=== PATIENT | female | born 1960 | race Caucasian/White ===

== ENCOUNTER → 2020-03-29 09:53 | Outpatient (CLI) | payer OTHER, SELFPAY ==
--- NOTE | ~2020-03-29 | DEXA_ITS ---
Bone Density Report Name: Annette Santiago Age: 59 Sex: Female Ethnicity: White Date of : 1960 Indication: osteopenia; height loss; postmenopausal Referring Provider: Rohan Rothman Study: Bone densitometry was performed. Exam Date: March 29, 2020 Accession number: [id number] Bone Density: Region BMD T-score Z-score Classification AP Spine (L1, L2) 0.859 -1.1 0.2 Osteopenia Femoral Neck (Left) 0.571 -2.5 -1.2 Osteoporosis Total Hip (Left) 0.692 -2.1 -1.1 Osteopenia Femoral Neck (Right) 0.667 -1.6 -0.4 Osteopenia Total Hip (Right) 0.708 -1.9 -1.0 Osteopenia Total Hip Mean 0.700 -2.0 -1.1 Osteopenia World Health Organization criteria for BMD impression classify patients as: Normal (T-score at or above -1.0), Osteopenia (T-score between -1.0 and -2.5), or Osteoporosis (T-score at or below -2.5). 10-year Fracture Risk: FRAX not reported because: Some T-score for Spine Total or Hip Total or Femoral Neck at or below -2.5 Previous Exams: Region Exam Age BMD T-score BMD Change BMD Change Date g/cm2 vs Baseline vs Previous AP Spine(L1, L2) 03/29/2020 59 0.859 -1.1 0.044* 0.044* 01/08/2017 56 0.815 -1.5 Total Hip(Left) 03/29/2020 59 0.692 -2.1 0.034* 0.034* 01/08/2017 56 0.658 -2.3 Total Hip(Right) 03/29/2020 59 0.708 -1.9 -0.010 -0.010 01/08/2017 56 0.717 -1.8 *Denotes significance at 95% confidence level, LSC for AP Spine = 0.022 g/cm2, LSC for Total Hip = 0.027 g/cm2 Clinical Information Provided by Patient: Has used the following medications: HRT (i.e. estrogen/hormone therapy), Vitamin D, Calcium Patient maximum height was 68 Menopause Age: 48 No regular weight bearing exercise Does not regularly consume dairy products Onset of menses at age 13 Number of children 2 Impression: The patient has osteoporosis, based on the Left Femoral Neck T-score. No significant bone loss was observed. Discussion: INCREASED RISK OF FRACTURE. BONE DENSITY IS UNDESIRABLY LOW AT ONE OR MORE SKELETAL SITES, CONSISTENT WITH POSTMENOPAUSAL OSTEOPOROSIS. This patient's lowest T-score meets the World Health Organization's (WHO) criteria for osteoporosis at one or more sites (T-score -2.5 or below). In untreated patients, the risk of osteoporotic fracture increases approximately two-fold for each 1.0 SD decrease in T-score. Low bone density is not the only risk factor for fracture; also consider fa
== END ==
PROVIDERS: PCP Family Medicine; Visit Provider Family Medicine
DX: Z78.0 Asymptomatic menopausal state (principal); M85.88 Other specified disorders of bone density and structure, other site; M81.0 Age-related osteoporosis without current pathological fracture; M85.852 Other specified disorders of bone density and structure, left thigh; M85.851 Other specified disorders of bone density and structure, right thigh
CPT/HCPCS: 77080

== ENCOUNTER 2020-04-23 00:17 | Outpatient (CLI) | payer OTHER, SELFPAY ==
[2020-04-23 18:02] LABS: SARS-CoV-2 RNA PCR Negative
== END 2020-04-23 00:18 | disposition home or self-care (01) ==
LOC: ANHCOVIDDT 00:17
PROVIDERS: PCP Family Medicine; Visit Provider Internal Medicine Gastroenterology
DX: Z01.812 Encounter for preprocedural laboratory examination (principal); Z20.828 Contact with and (suspected) exposure to other viral communicable diseases
CPT/HCPCS: 87635; C9803; U0003

== ENCOUNTER 2020-04-26 01:23 | Day surgery (SDC) | payer OTHER, SELFPAY ==
[2020-04-19 15:18] VITALS: BMI 22.8
[2020-04-26 07:04] VITALS: BP 126/90; PULSE 95; RESP 16; TEMP 36.6; O2SAT 98; BMI 23.0
--- NOTE | 2020-04-26 07:07 | PM.HPGS ---
History of Present Illness History of Present Illness Consent: Risks, benefits, and alternatives have been discussed and questions answered. Patient agrees to proceed with procedure. Chief complaint: Neoplasm Screening Narrative: Annette Santiago is a 59 year old W female referred for her 1st screening colonoscopy. Patient asymptomatic. Paternal grandmother colon cancer in her 60s. [facility] Past Medical History Medical History Fibromyalgia Scoliosis Surgical History Surgical History History of laparoscopy endometriosis Social History Social History Smoking packs per day: 1 Smoking cigarettes per day: 20.0 Years smoked: 4 Smoking pack-years: 4.00 Smoking status: Former smoker Tobacco type: cigarettes Second hand tobacco smoke exposure: No Smoking end date: 07/30/82 Alcohol intake: never Substance use: former Substance use type: marijuana Other substance usage details: DURING COLLEGE YRS Living arrangements: with family Gender identity (if verbalized by the patient): Female Spiritual care concerns: No Meds Home Medications and Allergies Home Medications Medication Instructions Recorded Confirmed Type Excedrin Migraine 2 tab-cap PO DAILY 06/28/19 04/26/20 History aripiprazole [Abilify] 4 mg PO DAILY 06/28/19 04/26/20 History hydrocodone-acetaminophen 1 tablet PO Q8H PRN 06/28/19 04/19/20 History duloxetine 30 mg capsule,delayed 90 mg PO DAILY #270 cap 09/02/19 04/26/20 Rx release estradiol-norethindrone acet 1 1 tablet PO DAILY #84 tablet 02/02/20 04/26/20 Rx mg-0.5 mg tablet clobetasol 0.05 % topical cream 1 applic TOPICAL BID #30 gm 02/17/20 04/26/20 Rx montelukast 10 mg tablet 10 mg PO HS #90 tablet 02/24/20 04/26/20 Rx cetirizine 10 mg tablet 10 mg PO DAILY 03/15/20 04/26/20 History alendronate 70 mg tablet 70 mg PO WEEKLY #12 tablet 04/02/20 04/26/20 Rx Tumeric/Cucermin 3 cap PO DAILY 04/19/20 04/26/20 History acetaminophen [Tylenol 8 Hour] 1,300 mg PO HS 04/19/20 04/26/20 History alpha lipoic acid 550 mg PO DAILY 04/19/20 04/26/20 History ascorbic acid (vitamin C) [Vitamin 1 g PO DAILY 04/19/20 04/26/20 History C] baclofen 20 mg PO BID 04/19/20 04/26/20 History calcium carbonate-vitamin D3 2 cap PO DAILY 04/19/20 04/26/20 History [Calcium 600 with Vitamin D3] magnesium citrate 2 cap PO BID 04/19/20 04/19/20 History methocarbamol 1,000 mg PO QID 04/19/20 04/26/20 History zolpidem 10 mg PO HS 04/19/20 04/26/20 History Allergies Allergy/AdvReac Type Severity Reaction Status Date / Time Sulfa (Sulfonamide Allergy Intermediate Unknown Verified 04/26/20 06:59 Antibiotics) DECONGESTANT Allergy Intermediate BLADDER Uncoded 04/26/20 06:59 SPSAMS Exam Const: Orientation/consciousness: patient oriented x3 Resp: Auscultation: clear to auscultation bilaterally Cardio: Rate: regular rate Rhythm: regular rhythm Heart sounds: no murmurs GI: GI Palp: Yes Soft to palpation, No Tenderness to palpation present (GI), Yes No hepatosplenomegaly present and No Palpable mass present Auscultation: normal bowel sounds Neuro: General: patient oriented x3 and no focal motor deficits Extrem: General: no pedal edema Assessment and Plan Additional Plan Screening colonoscopy
[2020-04-26] MEDS: LACTATED RINGERS 1,000 ML 150 ML IV CONT (07:17)
--- NOTE | 2020-04-26 07:20 | WPDANESEPPF ---
Anes - Initial Pre Proc Eval Procedure: Operation Date: 04/26/20 08:00 Proposed Procedures p Screening Colonoscopy - Sha Couch MD Date/Time: 04/26/20 07:20 Surgeon: Sha Couch MD Pre Op Diagnosis: Neoplasm Screening Patient Data Age: 59 Gender: F Height: 5 ft 8 in Weight: 68.7 kg Last Vital Signs Temp 36.6 C 04/26/20 07:04 Pulse 95 04/26/20 07:04 Resp 16 04/26/20 07:04 BP 126/90 04/26/20 07:04 Pulse Ox 98 04/26/20 07:04 Allergies Allergy/AdvReac Type Severity Reaction Status Date / Time Sulfa (Sulfonamide Allergy Intermediate Unknown Verified 04/26/20 06:59 Antibiotics) DECONGESTANT Allergy Intermediate BLADDER Uncoded 04/26/20 06:59 SPSAMS Home Medications Medication Instructions Recorded Confirmed Type Excedrin Migraine 2 tab-cap PO DAILY 06/28/19 04/26/20 History aripiprazole [Abilify] 4 mg PO DAILY 06/28/19 04/26/20 History hydrocodone-acetaminophen 1 tablet PO Q8H PRN 06/28/19 04/19/20 History duloxetine 30 mg capsule,delayed 90 mg PO DAILY #270 cap 09/02/19 04/26/20 Rx release estradiol-norethindrone acet 1 1 tablet PO DAILY #84 tablet 02/02/20 04/26/20 Rx mg-0.5 mg tablet clobetasol 0.05 % topical cream 1 applic TOPICAL BID #30 gm 02/17/20 04/26/20 Rx montelukast 10 mg tablet 10 mg PO HS #90 tablet 02/24/20 04/26/20 Rx cetirizine 10 mg tablet 10 mg PO DAILY 03/15/20 04/26/20 History alendronate 70 mg tablet 70 mg PO WEEKLY #12 tablet 04/02/20 04/26/20 Rx Tumeric/Cucermin 3 cap PO DAILY 04/19/20 04/26/20 History acetaminophen [Tylenol 8 Hour] 1,300 mg PO HS 04/19/20 04/26/20 History alpha lipoic acid 550 mg PO DAILY 04/19/20 04/26/20 History ascorbic acid (vitamin C) [Vitamin 1 g PO DAILY 04/19/20 04/26/20 History C] baclofen 20 mg PO BID 04/19/20 04/26/20 History calcium carbonate-vitamin D3 2 cap PO DAILY 04/19/20 04/26/20 History [Calcium 600 with Vitamin D3] magnesium citrate 2 cap PO BID 04/19/20 04/19/20 History methocarbamol 1,000 mg PO QID 04/19/20 04/26/20 History zolpidem 10 mg PO HS 04/19/20 04/26/20 History Patient hx anesthesia problems: none Family hx anesthesia problems: none PMFSH Past Medical History Medical History Fibromyalgia Scoliosis Surgical History Surgical History History of laparoscopy endometriosis Family History Family History Father Cerebrovascular accident Mother Family history of chronic obstructive pulmonary disease Father Family history of blood dyscrasia Mother Hypertension Family history of chronic obstructive pulmonary disease Grandparent Family history of cardiovascular disease Acute myocardial infarction Carcinoma of colon Family history of malignant neoplasm of breast in first degree relative Social History Social History Smoking packs per day: 1 Smoking cigarettes per day: 20.0 Years smoked: 4 Smoking pack-years: 4.00 Smoking status: Former smoker Tobacco type: cigarettes Second hand tobacco smoke exposure: No Smoking end date: 07/30/82 Alcohol intake: never Substance use: former Substance use type: marijuana Other substance usage details: DURING COLLEGE YRS Living arrangements: with family Gender identity (if verbalized by the patient): Female Spiritual care concerns: No Anes - Eval Final PreProcedure Day of Procedure 04/26/20 07:20 Patient weight: normal Heart: regular rate and rhythm Lungs: clear to auscultation Airway: Mallampati scale class II Neurological: alert and oriented Last oral intake: >/= 8 hours ASA classification: II Emergent: no Anesthetic plan: proceed Anesthesia type and monitoring: general GIVS and standard monitoring Informed Consent: The patient's anesthetic plan
[2020-04-26 08:36] VITALS: BP 145/73; PULSE 87; RESP 17; O2SAT 100
[2020-04-26 08:46] VITALS: BP 136/88; PULSE 85; RESP 17; O2SAT 100
[2020-04-26 08:56] VITALS: BP 122/70; PULSE 79; RESP 17; O2SAT 100
== END 2020-04-26 09:12 | disposition home or self-care (01) ==
PROVIDERS: PCP Family Medicine; Visit Provider Internal Medicine Gastroenterology
PROC: 0DJD8ZZ Inspection of Lower Intestinal Tract, Via Natural or Artificial Opening Endoscopic (ICD-10-PCS; CPT 45378; principal; 2020-04-26 08:00)
DX: Z12.11 Encounter for screening for malignant neoplasm of colon (principal); K64.8 Other hemorrhoids; Z80.0 Family history of malignant neoplasm of digestive organs; Z87.891 Personal history of nicotine dependence
CPT/HCPCS: 45378; J2704; J7120

== ENCOUNTER 2020-10-01 15:15 | Outpatient (CLI) | payer OTHER, SELFPAY | END 2020-10-01 15:16 | disposition home or self-care (01) | LOC: ANHCOVIDVC 15:15 | PROVIDERS: PCP Family Medicine | DX: Z23 Encounter for immunization (principal) | CPT/HCPCS: 0001A; 91300 ==

== ENCOUNTER 2020-10-22 15:15 | Outpatient (CLI) | payer OTHER, SELFPAY | END 2020-10-22 15:16 | disposition home or self-care (01) | LOC: ANHCOVIDVC 15:15 | PROVIDERS: PCP Family Medicine | DX: Z23 Encounter for immunization (principal) | CPT/HCPCS: 0002A; 91300 ==

== ENCOUNTER → 2021-05-09 14:37 | Outpatient (CLI) | payer OTHER, SELFPAY ==
--- NOTE | ~2021-05-09 | CT_ITS ---
EXAMINATION: CT brain wo con DATE: 05/09/2021 14:58 INDICATION: Visual disturbance TECHNIQUE: Computed tomography (CT) of the head was performed without intravenous contrast. The mA wa s adjusted according to patient size. Iterative reconstruction technique was employed. Exam dose: 59 9.57 mGy-cm total exam DLP. COMPARISON: None FINDINGS: Bilateral vertebral artery, basilar artery and carotid siphon internal carotid artery calci fications. No intracranial mass lesion or hemorrhage or cerebrovascular accident is detected. There is nonspecif ic diminished attenuation of the cerebral white matter, likely due to chronic small vessel ischemic c hanges. Normal ventricular size. No subdural or epidural hematoma. No fracture or bone destruction of the cranial vault. Minimal posterior lateral right ethmoid air cell soft tissue density. The included paranasal sinuses and the mastoid air cells are otherwise normally developed and aerated. IMPRESSION: Cerebral atherosclerosis and chronic small vessel ischemic changes of the cerebral white matter Reviewed, dictated and finalized at [facility]. Reviewed, dictated and finalized at location [facility].
--- NOTE | ~2021-05-09 | US_ITS ---
EXAMINATION: US carotid duplex BI DATE: 05/09/2021 16:03 INDICATION: Unspecified visual loss. TECHNIQUE: Grayscale, color Doppler, and pulsed Doppler images of the cervical carotid arteries were obtained. The degree of vessel stenosis is placed in one of the following categories: normal, <50%, 5 0-69%, >=70% but less than near-occlusion, near-occlusion, or total occlusion. Note that percent sten osis relative to normal distal artery lumen diameter is indirectly measured from velocity measurement s as described by Salbador, et al. Radiology 2003; 229:340-346. COMPARISON: None. FINDINGS: RIGHT: The right common carotid artery (CCA) peak systolic velocity (PSV) is 90 cm/s. The right internal car otid artery (ICA) PSV is 63 cm/s. The right ICA end-diastolic velocity (EDV) is 17 cm/s. The right IC A/CCA PSV ratio is 0.7. Grayscale and color Doppler images yield an estimate of 0% diameter reduction from plaque in the ICA. There is antegrade flow in the right vertebral artery. LEFT: The left CCA PSV is 64 cm/s. The left ICA PSV is 73 cm/s. The left ICA EDV is 26 cm/s. The left ICA/C CA PSV ratio is 1.1. Grayscale and color Doppler images yield an estimate of 0% diameter reduction fr om plaque in the ICA. There is antegrade flow in the left vertebral artery. IMPRESSION: 1. Normal internal carotid arteries. Reviewed, dictated and finalized at location [facility].
== END ==
PROVIDERS: PCP Family Medicine; Visit Provider Nurse Practitioner Family
DX: R42 Dizziness and giddiness (principal); H53.9 Unspecified visual disturbance; R00.2 Palpitations; I67.2 Cerebral atherosclerosis
CPT/HCPCS: 70450; 93880

== ENCOUNTER → 2021-10-03 13:33 | Outpatient (CLI) | payer OTHER, SELFPAY ==
--- NOTE | ~2021-10-03 | XR_ITS ---
EXAMINATION: XR scoliosis survey DATE: 10/03/2021 14:22 INDICATION: Secondary scoliosis of the lumbar region. TECHNIQUE: Scoliosis survey was obtained with standing AP and lateral views of the cervical, thoracic and lumbar spine were obtained. COMPARISON: None. FINDINGS: Cervical spine: 14 degrees cervical dextroscoliosis measured between C2 and C6. There is reversal of the normal cervi jose alberto lordosis centered at C3-C4 where there is 5 mm anterolisthesis of C3 on C4. Vertebral body height s are normal. Severe cervical spondylosis with severe disc height loss and severe uncovertebral osteo arthritis from C3-C4 through C5-C6. Prevertebral soft tissues are unremarkable. Thoracic spine: 31 degree thoracic dextroscoliosis measured between T5 and T12. 22 degree levoscoliosis between T7 an d T5. Vertebral body heights are normal. Mild thoracic spondylosis with multilevel mild disc height l oss throughout the thoracic spine. Visualized portion of the lungs are clear. Heart size is normal. P ortions of the lungs are obscured by bilateral lead breast shielding. Lumbar spine: 25 degrees lumbar levoscoliosis with moderate rotational component measured between T12 and 4. There is a 1 cm left lateral listhesis of L3 on L4. Straightening of the lumbar lordosis on the sagittal im ages. Vertebral body heights are normal. Severe disc height loss at L3-L4 and L4-L5. Mild disc height loss at the more cephalad lumbar levels. Severe facet osteoarthritis in the mid to lower lumbar spin e at the right side of the upper lumbar spine. IMPRESSION: 1. Multicomponent scoliosis of the cervical, thoracic and lumbar spine as detailed above. 2. Severe cervical and lumbar spondylosis. Reviewed, dictated and finalized at location [facility]. HEALTH RN IMPRESSION: 1. Multicomponent scoliosis of the cervical, thoracic and lumbar spine as detai led above. 2. Severe cervical and lumbar spondylosis.
== END ==
PROVIDERS: PCP Family Medicine
DX: M41.82 Other forms of scoliosis, cervical region (principal); M41.84 Other forms of scoliosis, thoracic region; M41.86 Other forms of scoliosis, lumbar region; M47.812 Spondylosis without myelopathy or radiculopathy, cervical region; M47.816 Spondylosis without myelopathy or radiculopathy, lumbar region
CPT/HCPCS: 72082

== ENCOUNTER → 2022-05-16 14:14 | Outpatient (CLI) | payer OTHER, SELFPAY ==
--- NOTE | ~2022-05-16 | DEXA_ITS ---
Bone Density Report Name: KATRINA CAMARENA Age: 61 Sex: Female Ethnicity: White Date of : 1960 Indication: osteopenia; monitoring treatment; height loss; postmenopausal Referring Provider: Rohan Rothman Study: Bone densitometry was performed. Exam Date: May 16, 2022 Accession number: [id number] Bone Density: Region BMD T-score Z-score Classification AP Spine (L1, L2) 0.781 -1.8 -0.3 Osteopenia Femoral Neck (Left) 0.620 -2.1 -0.7 Osteopenia Total Hip (Left) 0.689 -2.1 -1.0 Osteopenia Femoral Neck (Right) 0.698 -1.4 0.0 Osteopenia Total Hip (Right) 0.752 -1.6 -0.5 Osteopenia Total Hip Mean 0.721 -1.9 -0.8 Osteopenia World Health Organization criteria for BMD impression classify patients as: Normal (T-score at or above -1.0), Osteopenia (T-score between -1.0 and -2.5), or Osteoporosis (T-score at or below -2.5). 10-year Fracture Risk: FRAX not reported because: Treated for osteoporosis Previous Exams: Region Exam Age BMD T-score BMD Change BMD Change Date g/cm2 vs Baseline vs Previous AP Spine(L1, L2) 05/16/2022 61 0.781 -1.8 -0.034* -0.078* 03/29/2020 59 0.859 -1.1 0.044* 0.044* 01/08/2017 56 0.815 -1.5 Total Hip(Left) 05/16/2022 61 0.689 -2.1 0.031* -0.003 03/29/2020 59 0.692 -2.1 0.034* 0.034* 01/08/2017 56 0.658 -2.3 Total Hip(Right) 05/16/2022 61 0.752 -1.6 0.035* 0.044* 03/29/2020 59 0.708 -1.9 -0.010 -0.010 01/08/2017 56 0.717 -1.8 *Denotes significance at 95% confidence level, LSC for AP Spine = 0.022 g/cm2, LSC for Total Hip = 0.027 g/cm2 Clinical Information Provided by Patient: Is being treated for osteoporosis Has used the following medications: Fosamax (i.e. alendronate), HRT (i.e. estrogen/hormone therapy), Vitamin D, Calcium Patient maximum height was 69.75 Menopause Age: 48 Onset of menses at age 13 Number of children 2 Missed period for more than 6 months in a row Impression: The patient has low bone mass, based on the Left Total Hip T-score. The BMD for the AP Spine(L1, L2) decreased, changing by -0.078 since the last DXA exam. Discussion: SIGNIFICANT BONE LOSS OBSERVED. Adherence to therapy (including calcium and vitamin D intake) should be assessed. If compliance is not a factor, review management and exclusion of secondary causes of bone loss. It is important to ask patients whether
== END ==
PROVIDERS: PCP Family Medicine; Visit Provider Family Medicine
DX: Z78.0 Asymptomatic menopausal state (principal); M85.89 Other specified disorders of bone density and structure, multiple sites
CPT/HCPCS: 77080

== ENCOUNTER 2024-06-24 09:42 | Outpatient (CLI) | payer OTHER, SELFPAY ==
[2024-06-24 12:06] LABS: Basophils Absolute Auto 0.1 K/mm3 (0.0-0.1); Basophils Percent Auto 1.2 % (0.2-1.2); Eosinophils Absolute Auto 0.1 K/mm3 (0-0.3); Eosinophils Percent Auto 2.8 % (0-4.4); Hemoglobin 13.5 g/dL (12.0-15.0); Lymphocytes Absolute Auto 1.48 K/mm3 (0.9-3.2); Lymphocytes Percent Auto 34.7 % (18.3-44.2); Mean Corpuscular HGB Conc 32.1 g/dl (32-36); Mean Corpuscular Hemoglobin 31.8 pg (26-34); Mean Corpuscular Volume 98.8 fl (80-100); Mean Platelet Volume 11.4 fl (7.4-10.4); Monocytes Absolute Auto 0.4 K/mm3 (0.1-0.6); Monocytes Percent Auto 8.9 % (2.6-8.5); Neutrophils Absolute Auto 2.2 K/mm3 (1.3-6.7); Neutrophils Percent Auto 52.4 % (45.5-73.1); Platelet Count Result 246 k/mm3 (150-375); Red Blood Count 4.25 M/mm3 (4.2-5.4); Red Cell Distribution Width 12.6 % (11.5-14.5); White Blood Count 4.3 K/mm3 (4.5-10.0)
[2024-06-24 12:22] LABS: Alanine Aminotransferase 20 U/L (6-35); Albumin Level 4.4 g/dL (3.5-5.1); Alkaline Phosphatase 57 U/L (38-126); Anion Gap 5 mmol/L (4-12); Aspartate Amino Transferase 39 U/L (14-36); Bilirubin,Total 0.9 mg/dL (0.2-1.3); Blood Urea Nitrogen 18 mg/dL (7-17); Calcium 9.3 mg/dL (8.4-10.2); Carbon Dioxide 32 mmol/L (22-30); Chloride 101 mmol/L (98-107); Cholesterol 165 mg/dL (0-200); Estimated Glomerular Filt Rate > 60; Glucose 90 mg/dL (65-110); HDL Direct 63 mg/dL; Potassium 4.2 mmol/L (3.4-5.0); Sodium 138 mmol/L (137-145); Triglycerides 103 mg/dL (<150)
[2024-06-24 12:26] LABS: Vitamin D 25 Hydroxy 48.7 ng/mL
[2024-06-24 12:34] LABS: LDL Cholesterol Direct 73 mg/dL
[2024-06-24 13:43] LABS: Hepatitis B Surface Anti Res Negative
[2024-06-25 07:18] LABS: Rubeola Measles IgG <13.50 AU/mL
== END 2024-06-24 09:43 | disposition home or self-care (01) ==
LOC: ANHGOSHLAB 09:46
PROVIDERS: PCP Family Medicine; Visit Provider Nurse Practitioner Family
DX: Z00.00 Encounter for general adult medical examination without abnormal findings (principal); Z79.899 Other long term (current) drug therapy; Z13.220 Encounter for screening for lipoid disorders; E55.9 Vitamin D deficiency, unspecified; Z78.9 Other specified health status
CPT/HCPCS: 36415; 80053; 80061; 82306; 84443; 85025; 86706; 86735; 86765

== ENCOUNTER 2024-07-21 00:17 | Day surgery (SDC) | payer OTHER, SELFPAY ==
--- NOTE | 2024-07-14 14:07 | PC.NURSE ---
Report to the Outpatient Waiting Room, entrance under the green pavilion located off [facility], at time _6:15 AM on date _07/21/24 . Planned Procedure Time: __8:15 AM .? Time changes happen often and if your time is changed the preop area will call you the afternoon before. - You and your visitor will be asked to self-screen and do not enter if you have any COVID symptoms. Please call surgeon if you need to reschedule. - A mask is optional within the hospital at this time. Patients may have clear liquids (water, carbonated beverages, clear teas, apple juice) until 3 hours prior to surgery( 5:15 AM) with a maximum of 20 ounces. - No food from midnight until time of surgery and no smoking. This includes no chewing gum, candy or mints. - Take only the following medications with a SIP of water on the morning of surgery: _DULOXETINE,,HYDROCODONE IF NEEDED FOR PAIN DO NOT STOP ANY OF YOUR OTHER PRESCRIPTION MEDICATIONS PRIOR TO SURGERY EXCEPT THE FOLLOWING Medications to discontinue per physician ____HOLD ALL VITAMINS OR SUPPLEMENTS 3 DAYS PRE OP Date to take last dose__07/17/24 Please no make-up, nail maltese, hairspray, perfume, deodorant, or body powder the day of surgery.? No jewelry (including any body piercings) or valuables the day of surgery, leave them at home.? Please take a shower or bath the night before, or the morning of, surgery with an antibacterial soap.? Wear comfortable, loose fitting clothing.? Children are encouraged to wear pajamas. - Jewelry must be removed prior to entering the operating room.? Rings and piercings that are not removed may be cut off. - The hospital will not accept responsibility for valuables.? - Please leave all valuables, including medications, at home the day of surgery. If you are going home after surgery, a licensed coal tram driver must drive you home.? - NO public transportation without another adult if you receive anesthesia. - We recommend that an adult stay with you for 24 hours following discharge. - We also recommend that you do not drive, make important decision, drink alcoholic beverages, or take any drugs that were not prescribed by your health care provider for at least 24 hours after your discharge time. For Pediatric surgeries, we recommend two adults accompany the child home. Follow any additional instructions given to you from your surgeon. Telephone instructions given to __PATIENT and asked if any additional questions and then verbalized understanding. Patient advised to call surgeon office or pre surgery nurse liaison [phone] if any additional questions.
[2024-07-14 14:39] VITALS: BMI 23.5
[2024-07-21 07:00] VITALS: BP 122/68; PULSE 76; RESP 16; TEMP 36.9; O2SAT 99
[2024-07-21] MEDS: ACETAMINOPHEN 500 MG TABLET 1000 MG PO (07:10)
--- NOTE | 2024-07-21 07:26 | P.HP_ITS ---
History of Present Illness History of Present Illness Consent: Risks, benefits, and alternatives have been discussed and questions answered. Patient agrees to proceed with procedure. Chief complaint: post menopausal bleeding Narrative: Annette Santiago is a 64 year old female with postmenopausal bleed. Options were reviewed and the patient elects to proceed with D&C hysteroscopy. Risks of infection, bleeding and perforation reviewed. Possible pathology was discussed. Patient voices understanding and agrees to proceed. Review of Systems Review of Systems: not repeated day of surgery; patient states no changes in status PMFSH Past Medical History Medical History (Updated 07/21/24 @ 07:28 by Sera Morley MD) 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 Vaginal delivery x2 Missed x1 Endometriosis Arthritis Anxiety Fibromyalgia Scoliosis Surgical History Surgical History S/P cervical spinal fusion (~08/09/22) C3-6 [place] teeth extracted 1982 History of endometrial ablation History of dilation and curettage 1988 History of laparoscopy early , endometriosis Family History Family History Father Cerebrovascular accident Depression Anxiety Family history of blood dyscrasia Mother Family history of chronic obstructive pulmonary disease Hypertension Anxiety Depression Thyroid disorder Grandparent Family history of cardiovascular disease Acute myocardial infarction Carcinoma of colon Family history of malignant neoplasm of breast in first degree relative Breast cancer Social History Social History Smoking packs per day: 1 Smoking cigarettes per day: 20.0 Years smoked: 4 Smoking pack-years: 4.00 Smoking status: Never smoker Tobacco type: cigarettes Second hand tobacco smoke exposure: No Smoking end date: 07/30/82 Alcohol intake: never Substance use: former Substance use type: marijuana Other substance usage details: DURING COLLEGE YRS Lack of Transportation: No Lack of Food: Never True Current Housing: I Have Housing Concerned About Future Housing: No Difficulty Paying Gas/Electric Bills: No Difficulty Paying for Meds: No Currently Unemployed: No Education: Bachelor's Degree Difficulty w/ Childcare or Family Care: No Living arrangements: with family Additional living arrangements comments: Occupation/Education: retired Gender identity (if verbalized by the patient): Female Sexual Orientation (if Verbalized by the Patient): Straight or Heterosexual Spiritual care concerns: No Meds Home Medications and Allergies Home Medications ?Medication ?Instructions ?Recorded ?Confirmed ?Type alpha lipoic acid 550 mg PO DAILY 04/19/20 07/21/24 History ascorbic acid (vitamin C) 1,000 mg 1 g PO DAILY 04/19/20 07/21/24 History tablet (Vitamin C) magnesium citrate 2 cap PO BID 04/19/20 07/21/24 History methocarbamol 500 mg tablet 1,000 mg PO QID 04/19/20 07/21/24 History calcium carbonate (Calcium 600) 600 mg PO BID 04/25/21 07/21/24 History zolpidem 10 mg tablet (Ambien) 10 mg PO QHS 04/25/21 07/14/24 History famotidine 10 mg tablet 10 mg PO DAILY 05/15/22 07/21/24 History duloxetine 60 mg capsule,delayed 60 mg PO BID 03/17/24 07/21/24 History release estradiol-norethindrone acet 1 1 tablet PO DAILY 03/17/24 07/21/24 History mg-0.5 mg tablet baclofen 10 mg tablet 20 mg PO QID 03/25/24 07/14/24 History acetaminophen 650 mg 650 mg PO Q12H PRN pain 05/15/24 07/21/24 History tablet,extended release (Tylenol 8 Hour) hydrocodone 7.5 mg-acetaminophen 1 tablet PO Q8H PRN Pain 05/15/24 07/21/24 History 325 mg tablet lurasidone 60 mg tablet 60 mg PO QPM 05/15/24 07/14/24 History meloxicam 15 mg tablet 15 mg PO DAILY 05/15/24 07/21/24 History metoprolol succinate 25 mg 25 mg PO QPM 05/15/24 07/21/24 History tablet,extended release 24 hr montelukast 10 mg tablet 10 mg PO DAILY #90 tabs 06/13/24 07/14/24 Rx (Singulair) vitamin B complex (Vitamins B 1 cap PO DAILY 07/14/24 07/21/24 History Complex capsule) Allergies Allergy/AdvReac Type Severity Reaction Status Date / Time Sulfa (Sulfonamide Allergy Intermediate Unknown Verified 07/14/24 14:13 Antibiotics) capsaicin AdvReac Severe burning Verified 07/14/24 14:13 sensation DECONGESTANT Allergy Intermediate BLADDER Uncoded 07/14/24 14:13 SPSAMS Vital Signs Vital Signs - 24 hr 07/21/24 07:00 Temperature 98.4 F Pulse Rate 76 Respiratory Rate 16 Blood Pressure 122/68 Pulse Oximetry 99 Oxygen Delivery Room Air Exam Const: General: healthy appearing and alert Orientation/consciousness: patient oriented x3 Resp: Effort & Inspection: normal respiratory effort : External Female Exam: normal external appearance Speculum Exam - Vagina: normal appearance of the vagina and normal vaginal discharge Speculum Exam - Cervix: normal appearance of the cervix Bimanual exam- vagina & uterus: uterine size normal and consistency normal Bimanual Exam- Adnexa, other: normal adnexae and No adnexal tenderness Neuro: General: patient oriented x3 Assessment and Plan Assessment and plan (1) Post-menopausal bleeding: Code(s): N95.0 - Postmenopausal bleeding Status: Acute Assessment and Plan: Plan to proceed with D&C hysteroscopy
--- NOTE | 2024-07-21 07:26 | WPDHPUPDATE1 ---
History and Physical Update Update Date/Time: 07/21/24 07:26 History and Physical has been reviewed, including an updated exam of the patient. There are NO changes in the patient's condition. Risks, benefits, and alternatives have been discussed and questions answered. Patient agrees to proceed with procedure.
[2024-07-21] MEDS: LACTATED RINGERS 1,000 ML 30 ML IV CONT (07:27)
--- NOTE | 2024-07-21 08:16 | WPDANESEPPF ---
Anes - Initial Pre Proc Eval Procedure: Operation Date: 07/21/24 08:15 Proposed Procedures p Hysteroscopy, Dilation and Curettage - Sera Morley MD Date/Time: 07/21/24 08:16 Surgeon: Sera Morley MD Pre Op Diagnosis: post menopausal bleeding Patient Data Age: 64 Gender: F Height: 1.7 m Weight: 65.9 kg Last Vital Signs Temp 36.9 C 07/21/24 07:00 Pulse 76 07/21/24 07:00 Resp 16 07/21/24 07:00 BP 122/68 07/21/24 07:00 Pulse Ox 99 07/21/24 07:00 O2 Del Method Room Air 07/21/24 07:00 Allergies Allergy/AdvReac Type Severity Reaction Status Date / Time Sulfa (Sulfonamide Allergy Intermediate Unknown Verified 07/14/24 14:13 Antibiotics) capsaicin AdvReac Severe burning Verified 07/14/24 14:13 sensation DECONGESTANT Allergy Intermediate BLADDER Uncoded 07/14/24 14:13 SPSAMS Home Medications ?Medication ?Instructions ?Recorded ?Confirmed ?Type alpha lipoic acid 550 mg PO DAILY 04/19/20 07/21/24 History ascorbic acid (vitamin C) 1,000 mg 1 g PO DAILY 04/19/20 07/21/24 History tablet (Vitamin C) magnesium citrate 2 cap PO BID 04/19/20 07/21/24 History methocarbamol 500 mg tablet 1,000 mg PO QID 04/19/20 07/21/24 History calcium carbonate (Calcium 600) 600 mg PO BID 04/25/21 07/21/24 History zolpidem 10 mg tablet (Ambien) 10 mg PO QHS 04/25/21 07/14/24 History famotidine 10 mg tablet 10 mg PO DAILY 05/15/22 07/21/24 History duloxetine 60 mg capsule,delayed 60 mg PO BID 03/17/24 07/21/24 History release estradiol-norethindrone acet 1 1 tablet PO DAILY 03/17/24 07/21/24 History mg-0.5 mg tablet baclofen 10 mg tablet 20 mg PO QID 03/25/24 07/14/24 History acetaminophen 650 mg 650 mg PO Q12H PRN pain 05/15/24 07/21/24 History tablet,extended release (Tylenol 8 Hour) hydrocodone 7.5 mg-acetaminophen 1 tablet PO Q8H PRN Pain 05/15/24 07/21/24 History 325 mg tablet lurasidone 60 mg tablet 60 mg PO QPM 05/15/24 07/14/24 History meloxicam 15 mg tablet 15 mg PO DAILY 05/15/24 07/21/24 History metoprolol succinate 25 mg 25 mg PO QPM 05/15/24 07/21/24 History tablet,extended release 24 hr montelukast 10 mg tablet 10 mg PO DAILY #90 tabs 06/13/24 07/14/24 Rx (Singulair) vitamin B complex (Vitamins B 1 cap PO DAILY 07/14/24 07/21/24 History Complex capsule) ECG: SR 79. Echo EF 73% Patient hx anesthesia problems: none Family hx anesthesia problems: none Results Review: All pre-operative results and documents have been reviewed as part of the pre-operative evaluation. REPLACED BY [facility] Past Medical History Medical History 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 Vaginal delivery x2 Missed x1 Endometriosis Arthritis Anxiety Fibromyalgia Scoliosis Surgical History Surgical History S/P cervical spinal fusion (~08/09/22) C3-6 Bronte teeth extracted 1982 History of endometrial ablation History of dilation and curettage 1988 History of laparoscopy early , endometriosis Family History Family History Father Cerebrovascular accident Depression Anxiety Family history of blood dyscrasia Mother Family history of chronic obstructive pulmonary disease Hypertension Anxiety Depression Thyroid disorder Grandparent Family history of cardiovascular disease Acute myocardial infarction Carcinoma of colon Family history of malignant neoplasm of breast in first degree relative Breast cancer Social History Social History Smoking packs per day: 1 Smoking cigarettes per day: 20.0 Years smoked: 4 Smoking pack-years: 4.00 Smoking status: Never smoker Tobacco type: cigarettes Second hand tobacco smoke exposure: No Smoking end date: 07/30/82 Alcohol intake: never Substance use: former Substance use type: marijuana Other substance usage details: DURING COLLEGE YRS Lack of Transportation: No Lack of Food: Never True Current Housing: I Have Housing Concerned About Future Housing: No Difficulty Paying Gas/Electric Bills: No Difficulty Paying for Meds: No Currently Unemployed: No Education: Bachelor's Degree Difficulty w/ Childcare or Family Care: No Living arrangements: with family Additional living arrangements comments: Occupation/Education: retired Gender identity (if verbalized by the patient): Female Sexual Orientation (if Verbalized by the Patient): Straight or Heterosexual Spiritual care concerns: No Anes - Eval Final PreProcedure Day of Procedure 07/21/24 08:16 Patient weight: normal Heart: regular rate and rhythm Lungs: clear to auscultation Airway: Mallampati scale class II Neurological: alert and oriented Last oral intake: >/= 8 hours ASA classification: III Emergent: no Anesthetic plan: proceed Anesthesia type and monitoring: general GIVS and standard monitoring Results Review: All pre-operative results and documents have been reviewed as part of the pre-operative evaluation. Informed Consent: The patient's anesthetic plan and its attendant risks and benefits were discussed with the patient/family/POA. Questions were solicited and answers provided to the satisfaction of the patient/family/POA.
[2024-07-21] MEDS: KETOROLAC 30 MG/ML VIAL (*BKC) IV PUSH (08:40)
--- NOTE | 2024-07-21 08:44 | P.OP_ITS ---
Procedure Note - Detailed Date of Procedure 07/21/24 Pre-op Diagnosis post menopausal bleeding Post-op Diagnosis Same Procedure Performed D&C hysteroscopy with resection of polyp Surgeon Sera Morley MD Anesthesia MAC Findings The uterus sounds to6.5cm. The endometrium was atrophic except for a large po lyp arising from the left sidewall. Description of Procedure The patient is taken to the operating placed under anesthesia in the dorsal lithotomy position. She was prepped and draped in the usual sterile fashion. Rosanky speculum was placed in the vagina and the cervix was grasped on the anterior lip with a tenaculum. The uterus is sounded to 6.5cm. Diagnostic hysteroscope was placed and with the above-stated findings the Aveta resection device is placed. Under direct visualization the polyp was removed in its entirety. The hysteroscope was then removed and the sharp OO curette used to curette the endometrium until a good uterine cry was noted in all areas. Instruments were then removed. Sponge, needle, and instrument counts are cor rect per the OR staff. The patient was awakened from anesthesia and taken to recovery in stable condition. Estimated Blood Loss 5 Drains No Packing No Pathology Yes (Endometrial shavings and curettings) Complications No immediate complications Condition Stable Disposition PACU
[2024-07-21 08:47] VITALS: BP 105/63; PULSE 74; RESP 16; O2SAT 100
[2024-07-21 09:15] VITALS: BP 111/65; PULSE 71; O2SAT 98
[2024-07-21 09:45] VITALS: BP 126/75; PULSE 71
--- OUTSIDE RECORDS SUMMARY | 2024-07-28 01:01 | XMS_ITS ---
Author Organization [facility] Address [address] [place] [address] Care Team Providers Care Upset Operator Name Role Phone Kamron, Radha Unavailable [phone] REASON FOR VISIT Refill Medications Medication SIG (Take, Route, Fr equency, Duration) Notes Start Date End Date Status Lurasidone HCl 60 MG 1 tablet in the chapis ken with food Oral Once a day for 90 days Active Social History Sex Assigned At : Social History Observation Description Sex Assigned At Female Encounters Encounter Location Date Provider Diagnosis [facility] [address] [place] [address] 06/28/2024 Radha Lundy MDD (major depressiv e disorder), recurrent severe, 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 Assessments Encounter Date Diagnosis (ICD Code) Assessment Notes Treatment Notes Treatment Clinical Notes Section Notes 06/28/2024 MDD (major depressive disorder), recurrent severe, without psychosis (ICD-10 - F33.2) Plan Of Treatment Medication Medication Name Sig Start Date Stop Date Notes Lurasidone HCl 60 MG 1 tablet in the chapis ken with food Oral Once a day for 90 days Next Appt Details Provider Name:Radha Lundy, 08/06/2024 11:00:00 AM, [address], [place], [address], Progress Notes * JASBIR CAMARENA:[birth year] (64 yo F)Acc No.[id number]:06/28/2024 Patient:?KATRINA CAMARENA :1960???Age:64 Y???Sex:Female Address:[address] [place] [address], [place], [address] * Refills? Refill Lurasidone HCl Tablet, 60 MG, Oral, 90, 1 tablet in the evening with food, Once a day, 90 days, Refills=0 * true * Date:? Generated for Malena rasmussen/Urvashi/Peytonitting on:?07/28/2024 01:00 AM [employer]OGHURT MAKER
--- OUTSIDE RECORDS SUMMARY | 2024-07-28 01:01 | XMS_ITS ---
Author Organization [facility] [employer] Address [address] [place] [address] Care Team Providers Care Project Facilitator Name Role Phone Radha Lundy Unavailable [phone] REASON FOR VISIT Depression Medications Medication SIG (Take, Route, Fr equency, Duration) Notes Start Date End Date Status Lurasidone HCl 60 MG 1 tablet in the chapis ken with food Oral Once a day for 90 days Active Social History Sex Assigned At : Social History Observation Description Sex Assigned At Female Encounters Encounter Location Date Provider Diagnosis [facility] [employer] [facility] [address] [place] [address] 04/30/2024 Radha Lundy MDD (major depressiv e disorder), recurrent severe, 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 Assessments Encounter Date Diagnosis (ICD Code) Assessment Notes Treatment Notes Treatment Clinical Notes Section Notes 04/30/2024 MDD (major depressive disorder), recurrent severe, without psychosis (ICD-10 - F33.2) Plan Of Treatment Medication Medication Name Sig Start Date Stop Date Notes Lurasidone HCl 60 MG 1 tablet in the chapis ken with food Oral Once a day for 90 days Next Appt Details Provider Name:Radha Lundy, 08/06/2024 11:00:00 AM, [address], [place], [address], Progress Notes * FER CAMARENAB:[birth year] (63 yo F)Acc No.[id number]:04/30/2024 Patient:?KATRINA CAMARENA :1960???Age:63 Y???Sex:Female Address:[address] [place] [address], [place], [address] * Refills? Refill Lurasidone HCl Tablet, 60 MG, Oral, 90 Tablet, 1 tablet in the evening with food, Once a day, 90 days, Refills=0 * true * Date:? Generated for Malena rasmussen/Urvashi/Peytonitting on:?07/28/2024 01:01 AM [employer]
--- OUTSIDE RECORDS SUMMARY | 2024-07-28 01:01 | XMS_ITS | Clinical Summary ---
Author Organization [facility] [employer] Address [address] [place] [address] Care Team Providers Care Boiler Room Operator Name Role Phone Peyman Ortega MD Primary Care Provider Source Comments [facility] [employer],non-owned Affiliates and Associated Physician Practices is amultiple site organization consisting of ambulatory clinics and hospital sitesin [place], [place], [place] and [place]. This disclosure is being madepursuant to the Care Everywhere program and may not contain all information available regarding this patient. Last updated 18.[facility] [employer] Allergies Active Allergy Reactions Criticality Noted Date Comments Capsaicin Other,Skin Reactions Low 09/26/1987 intolerable burning Pseudoephedrine Base Other Medium 05/04/2020 Bladder spasm Medications * Be aware that medications may not be up to date on this document. Alwaysverify current medications with the patient. Medication Sig Dispensed Refills Start Date End Date Status montelukast (Singulair) 10 MG tablet Take 1 (one) tablet by mouth once daily 06/05/2023 Active DULoxetine (Cymbalta) 60 MG capsule Take 1 (one) capsule by mouth 2 times daily 07/13/2023 Active estradiol-norethindro ne (Activella) 1-0.5 MG tablet Take 1 (one) tablet by mouth once daily 07/16/2023 Active metoprolol succinate XL 24hr (Toprol XL) 25 MG tablet Take 1 (one) tablet by mouth once daily Active famotidine (Pepcid) 10 MG tablet Take 1 (one) tablet by mouth once daily Active cannabidiol (Epidiolex) 100 MG/ML oral solution Take 5 mg/kg by mouth 2 times daily as needed Active calcium carbonate (Caltrate) 600 MG tablet Take 2 (two) tablets by mouth daily with food Active ascorbic acid (Vitamin C) 250 MG tablet Take 4 (four) tablets by mouth once daily Active baclofen (Lioresal) 20 MG tablet Take 1 (one) tablet by mouth 4 times daily 10/23/2023 Active HYDROcodone-acetamino phen (Ruthven) 7.5-325 MG tablet Take 1 (one) tablet by mouth every 6 hours as needed pain 11/06/2023 Active ALPHA LIPOIC ACID PO Take 550 mg by mouth once daily Active l-methylfolate (Deplin) 15 MG tablet Take 1 (one) tablet by mouth once daily Active meloxicam (Mobic) 15 MG tablet Take 1 (one) tablet by mouth once daily 04/11/2024 Active Magnesium Gluconate (MAGNESIUM 27 PO) Magnesium 10/24/2023 Active methocarbamol (Robaxin) 500 MG tablet Take 2 (two) tablets by mouth 04/11/2024 Active zolpidem (Ambien) 10 MG tablet 1 tablet at bedtime as needed Oral Once a day for 90 days 04/02/2024 Active hydrocortisone (Hytone) 2.5 % ointmentIndications:L ichen sclerosus et atrophicus of the vulva Apply to vulvar tissue twice daily. 80 g 1 06/18/2024 Active lurasidone (Latuda) 60 MG tablet Take 1 (one) tablet by mouth once daily 04/30/2024 Active Active Problems Problem Noted Date Diagnosed Date Other spondylosis with radiculopathy, lumbar reg ion 11/27/2023 GERD (gastroesophageal reflux disease) 3 08/15/2023 Osteoporosis 08/09/2022 08/15/2023 Spinal stenosis of cervical region 07/07/2022 08/15/2023 Overview (08/15/2023): Added automatically from request for surgery [id number] Chronic use of opiate drug for therapeutic purpo se 11/19/2018 08/15/2023 Depression 09/29/2015 08/15/2023 Arthralgia of hip 09/29/2013 08/15/2023 Fibromyalgia 06/21/2010 08/15/2023 Generalized osteoarthritis 06/21/201008/15 Encounters Date Type Department Care Team Description 06/24/2024 2:00 PM COLLAR SETTER Office Visit [facility] - SENIOR DIGITAL DESIGN[facility] [address] [place] [address] Valentina Hamm MD Lichen sclerosus et atrophicus of the vulva (Primary Dx) 06/24/2024 Travel 06/09/2024 2:30 PM COLLAR SETTER Procedure visit [facility] - S[employer]IOR [facility]ITAL DES[employer] [address] [place] [phone] Postmenopausal bleeding ; Vaginal burning 06/09/2024 Travel 05/28/2024 Refill [facility] - S[facility]IOR [facility]ITAL [employer] [address] [place] [phone] Valentina Hamm MD MEDICATION REFILL from Last 3 Months Immunizations Name Administration Dates Next Due INFLUENZA VACCINE, QUADR. (F LUZONE; FLULAVAL; FLUARIX; AFLURIA QUADRIVALENT; 6MO+), 0.5 ML (IIV4) 05/04/2020 Family History Medical History Relation Name Comments Depression Father CAD (Coronary Artery Disease) Maternal Grandfather Cancer Maternal Grandmother Depression Mother Thyroid Disease Mother Cancer Paternal Grandmother Relation Name Status Comments Father Maternal Grandfather Maternal Grandmother Mother Alive Paternal Grandmother Social History Tobacco Use Types Packs/Day Years Used Date Smoking Tobacco: Former Cigarettes Q uit: 1984 Passive Smoke Exposure: Never Smokeless Tobacco: Never Tobacco Cessation:Counseling Given: Not Answered Alcohol Use Standard Drinks/Week Comments Not Currently 0 (1 standard drink = 0.6 oz pur e alcohol) Sex and Gender Information Value Date Recorded Sex Assigned at Not on file Gender Identity Not on file Sexual Orientation Not on file Last Filed Vital Signs Vital Sign Reading Time Taken Comments Blood Pressure 130/76 06/24/2024 1:40 PM COLLAR SETTER Pulse - - Temperature 37 ??C (98.6 ??F) 04/22/2024 3:16 PM CDT Respiratory Rate - - Oxygen Saturation - - Inhaled Oxygen Concentration - - Weight 66.9 kg (147 lb 6.4 oz) 06/24/2024 1:40 P M COLLAR SETTER Height 167.6 cm (5' 6 ) 06/24/2024 1:40 PM COLLAR SETTER Body Mass Index 23.79 06/24/2024 1:40 PM COLLAR SETTER Plan of Treatment Upcoming Encounters Date Type Department Care Team (Late st Contact Info) Description 12/10/2024 10:50 AM CDT Office Visit [facility] - SENIOR DIGITAL DESIGNER [address], [facility] [address] [place] [phone] Valentina Hamm MD [address] [place] [address] Health Maintenance Due Date Last Done Comments COLOGUARD (AGES 45-75) - COLON CA SCREENING 1960 COLON MONITORING 1960 COLONOSCOPY - COLON CA SCREENING 1960 CT COLONOGRAPHY - COLON CA SCREENING 1960 Colorectal Cancer Screening 1960 FIT - COLON CA SCREENING 1960 FLEX SIG - COLON CA SCREENING 1960 LIPID TESTING 1960 PAP SMEAR 1960 HIV SCREENING 1975 HEPATITIS C SCREENING 05/29/1978 DTAP/TDAP/TD VACCINES (1 - Tdap) 1979 ZOSTER VACCINE (1 of 2) 2010 DEPRESSION SCREENING 07/30/2023 COVID-19 VACCINE ( season) 2024 05/12/2023, 04/15/2022, 11/06/2021, Additional history exists INFLUENZA VACCINE (#1) 2024 , 04/28/2022, 04/15/2022, Additional history exists MAMMOGRAM 05/16/2025 05/16/2023 Respiratory Syncytial Virus (RSV) Vaccine Pt: or over 60 yrs (1 - 1-dose 75+ series) 2035 HEPATITIS B VACCINE Aged Out No longe r eligible based on patient's age to complete this topic HIB VACCINE Aged Out No longer eligi ble based on patient's age to complete this topic HPV VACCINE Aged Out No longer eligi ble based on patient's age to complete this topic MENINGOCOCCAL VACCINE Aged Out No terence willa eligible based on patient's age to complete this topic PNEUMOCOCCAL VACCINE Aged Out No long er eligible based on patient's age to complete this topic Procedures Procedure Name Priority Date/Time Associated Diagnosis Comments MT SONO EXAM, TRANSVAGINAL Routine 06/09/2024 2:31 PM COLLAR SETTER Postmenopausal bleeding MT US PELVIC NONOB REAL-TIME IMG COMPLETE Routine 06/09/2024 2:31 PM COLLAR SETTER Postmenopausal bleeding from Last 3 Months Results * MT US PELVIC NONOB REAL-TIME IMG COMPLETE, MT SONO EXAM, TRANSVAGINAL (06/09/2024 2:31 PM COLLAR SETTER) Linked Results Indication ======== Postmenopausal Bleeding History ====== HUMAN RESOURCE STATISTICIAN History ?Postmenopausal . Uterus ====== Appears normal. Size 62 mm x 38 mm x 29 mm. Vol 35.9 cm? Position: anteverted Endometrium: vascular patterns: single vessel without branching, hyperechogenic, endometrial midline: irregular. Endometrial thickness, total 6.0 mm Fibroid(s) ? Size 8 mm x 10 mm x 5 mm. Mean 7.6 mm. Vol 0.217 cm?. Posterior. Fundal. intramural hyperechoic with posterior acoustic shadowing Polyp(s) ? Size 10 mm x 5 mm x 6 mm. Mean 7.0 mm. Left lateral Right Ovary ========= Appears normal. Size 14 mm x 11 mm x 11 mm. Vol 0.9 cm? Left Ovary ======== Appears normal. Size 17 mm x 11 mm x 8 mm. Vol 0.8 cm? Cul de Sac ========= Visualized. No free fluid visualized Impression ========= Thickened irregular endometrial cavity Suspected endometrial polyp Small intramural fibroid Coding ====== Procedures ? 12845: US Transvaginal Non OB ? 81974: US Pelvis Complete [employer] PACS 06/09/2024 2:31 PM COLLAR SETTER Valentina Hamm MD PROCEDURE/MINOR MELARA RGICAL ORDERABLES [employer] PACS from Last 3 Months Care Teams Boiler Room Operator Relationship Specialty Start Date End Date Peyman Ortega MD [address] [place] [address] [place] [id number] PCP - General Family Medicine 04/22/24
--- OUTSIDE RECORDS SUMMARY | 2024-07-28 01:01 | XMS_ITS | Patient Health Summary ---
Author Organization [facility] [employer] Address [address] [place] [address] Care Team Providers Care Nurse Infection Control Name Role Phone Peyman Ortega MD Primary Care Provider Note from [facility],non-owned Affiliates and Associated Physician Practices is amultiple site organization consisting of ambulatory clinics and hospital sitesin [place], [place], [place] and [place]. This disclosure is being madepursuant to the Care Everywhere program and may not contain all information available regarding this patient. Last updated 18.[facility] Allergies * Capsaicin(Other,Skin Reactions) -Low Criticality * Pseudoephedrine Base(Other) -Medium Criticality Medications * Be aware that medications may not be up to date on this document. Alwaysverify current medications with the patient. * montelukast (Singulair) 10 MG tablet(Started 06/05/2023) Take 1 (one) tablet by mouth once daily * DULoxetine (Cymbalta) 60 MG capsule(Started 07/13/2023) Take 1 (one) capsule by mouth 2 times daily * estradiol-norethindrone (Activella) 1-0.5 MG tablet(Started 07/16/2023) Take 1 (one) tablet by mouth once daily * metoprolol succinate XL 24hr (Toprol XL) 25 MG tablet Take 1 (one) tablet by mouth once daily * famotidine (Pepcid) 10 MG tablet Take 1 (one) tablet by mouth once daily * cannabidiol (Epidiolex) 100 MG/ML oral solution Take 5 mg/kg by mouth 2 times daily as needed * calcium carbonate (Caltrate) 600 MG tablet Take 2 (two) tablets by mouth daily with food * ascorbic acid (Vitamin C) 250 MG tablet Take 4 (four) tablets by mouth once daily * baclofen (Lioresal) 20 MG tablet(Started 10/23/2023) Take 1 (one) tablet by mouth 4 times daily * HYDROcodone-acetaminophen ([place]) 7.5-325 MG tablet(Started 11/06/2023) Take 1 (one) tablet by mouth every 6 hours as needed pain * ALPHA LIPOIC ACID PO Take 550 mg by mouth once daily * l-methylfolate (Deplin) 15 MG tablet Take 1 (one) tablet by mouth once daily * meloxicam (Mobic) 15 MG tablet(Started 04/11/2024) Take 1 (one) tablet by mouth once daily * Magnesium Gluconate (MAGNESIUM 27 PO)(Started 10/24/2023) Magnesium * methocarbamol (Robaxin) 500 MG tablet(Started 04/11/2024) Take 2 (two) tablets by mouth * zolpidem (Ambien) 10 MG tablet(Started 04/02/2024) 1 tablet at bedtime as needed Oral Once a day for 90 days * hydrocortisone (Hytone) 2.5 % ointment(Started 06/18/2024) Apply to vulvar tissue twice daily. 1 refill by 06/18/2025 * lurasidone (Latuda) 60 MG tablet(Started 04/30/2024) Take 1 (one) tablet by mouth once daily Active Problems Problem Noted Date Diagnosed Date Other spondylosis with radiculopathy, lumbar reg ion 11/27/2023 GERD (gastroesophageal reflux disease) 08/15/2023 Osteoporosis 08/09/2022 08/15/2023 Spinal stenosis of cervical region 07/07/2022 08/15/2023 Chronic use of opiate drug for therapeutic purpo se 11/19/2018 08/15/2023 Depression 09/29/2015 08/15/2023 Arthralgia of hip 09/29/2013 08/15/2023 Fibromyalgia 06/21/2010 08/15/2023 Generalized osteoarthritis 06/21/201008/15 Immunizations * INFLUENZA VACCINE, QUADR. (FLUZONE; FLULAVAL; FLUARIX; AFLURIA QUADRIVALENT; 6MO+), 0.5 ML (IIV4)(Given 05/04/2020) Social History Tobacco Use Types Packs/Day Years [...] Comments Blood Pressure 130/76 06/24/2024 1:40 PM MANAGER SHIP Pulse - - Temperature 37 ??C (98.6 ??F) 04/22/2024 3:16 PM CDT Respiratory Rate - - Oxygen Saturation - - Inhaled Oxygen Concentration - - Weight 66.9 kg (147 lb 6.4 oz) 06/24/2024 1:40 P M MANAGER SHIP Height 167.6 cm (5' 6 ) 06/24/2024 1:40 PM MANAGER SHIP Body Mass Index 23.79 06/24/2024 1:40 PM MANAGER SHIP Procedures * [place] SONO EXAM, TRANSVAGINAL(Performed 06/09/2024) Performed for Postmenopausal bleeding * [place] US PELVIC NONOB REAL-TIME IMG COMPLETE(Performed 06/09/2024) Performed for Postmenopausal bleeding * CULTURE YEAST WITH DIRECT FLUORESCENT NEGIN(Performed 08/15/2023) Performed for Lichen sclerosus et atrophicus of the vulva Results * [place] US PELVIC NONOB REAL-TIME IMG COMPLETE, [place] SONO EXAM, TRANSVAGINAL (06/09/2024 2:31 PM MANAGER SHIP) Linked Results Indication ======== Postmenopausal Bleeding History ====== CRYPTOGRAPHER History ?Postmenopausal . Uterus ====== Appears normal. [...] Small intramural fibroid Coding ====== Procedures ? 16306: US Transvaginal Non OB ? 35365: US Pelvis Complete [employer] PACS 06/09/2024 2:31 PM MANAGER SHIP Valentina Hamm MD PROCEDURE/MINOR MELARA RGICAL ORDERABLES [facility] PACS * CULTURE YEAST WITH DIRECT FLUORESCENT NEGIN (08/15/2023 11:17 AM MANAGER SHIP) Smear [facility] Comment: ??CULTURE, YEAST, W/DIRECT FLUORESCENT NEGIN ?Micro Number: ?[id number] ??Test Status: ? Final ??Specimen Source: ?? Genital ??Specimen Quality: ??Adequate ??Smear: ? No yeast seen ??Result: ?No yeast isolated Test Performed at: [facility] ??[id number] ERASMO ZAPIEN MD Microbiology SPECIMEN FROM GENITAL SYSTEM / Unknown 08/15/2023 11:17 AM MANAGER SHIP 08/16/2023 5:01 AM MANAGER SHIP Valentina Hamm MD LAB - MICROBIOLOGY ORDERABLES [facility] [address] [place] [address] Care Teams Nurse Infection Control Relationship Specialty Start Date End Date Peyman Ortega MD [facility] [address] [address] PCP - General Family Medicine 04/22/24
--- OUTSIDE RECORDS SUMMARY | 2024-07-28 01:01 | XMS_ITS | Patient Health Record ---
Author Organization [facility] [employer] [facility] Address [address] [place] [address] Care Team Providers Care Maintenance Coordinator Name Role Phone Radha Lundy Unavailable [phone] Migration, Provider Unavailable Unavailable Allergies No Known Allergies Results Component Value Reference Range Notes DRUG SCREEN, 14 DRUGS (DETEC TIMED), URINE Reviewed date:10/24/2023 12:00:00 AM Interpretation: Performing Lab: Notes/Report: Amphetamine negative Barbiturates negative Benzodiazipine negative Cocaine negative MDMA/Ectasy negative Methadone negative Methamphetamine negative Morphine positive note +OXY +MOP Oxycodone positive Phenocyclidine negative THC negative Reason For Referral No Information Medications Medication SIG (Take, Route, Frequency, Duration) Notes Start Date End Date Status L-Methylfolate 15 MG Oral 10/24/2023 Active Vitamin C 100 MG Oral 10/24/2023 Un known Cymbalta 60 MG 1 capsule Oral Twice daily for 90 days Active Baclofen 10 MG Oral 10/24/2023 Unkn own Methocarbamol 500 MG Oral 10/24/2023 Unknown Lurasidone HCl 60 MG 1 tablet in the evening with food Oral Once a day for 90 days Active Zolpidem Tartrate 10 MG 1 tablet at bedtime as needed Oral Once a day for 90 days 05/05/2024 08/02/2024 Active Lurasidone HCl 40 MG 1 tablet in the evening with food Oral Once a day for 90 days Active Meloxicam 15 MG Oral 10/24/2023 Unk nown Meloxicam 7.5 MG Oral 10/24/2023 Un known Famotidine 10 mg Oral 10/24/2023 Un known Metoprolol Succinate ER 25 MG Oral 10/24/2023 Unknown HYDROcodone-Acetamin ophen 7.5-325 MG Oral 10/24/2023 Unknown Singulair 10 MG Oral 10/24/2023 Unk nown Estradiol-Norethindr one Acet 1-0.5 MG Oral 10/24/2023 Unknown CALCIUM 600 + D(3) 600 MG-5 MCG (200 UNIT) CAPSULE *Reorder from [employer] for eRx and Interaction Alerts* 10/24/2023 Unknown Baclofen 20 MG Oral 10/24/2023 Unkn own Magnesium *Pick strength-form from [employer] for eRX* 10/24/2023 Unknown Social History Tobacco Use: Social History Observation Description Date Details (start date - stop date) Never Smoker NA - NA Sex Assigned At : Social History Observation Description Sex Assigned At Female Household Question Answer Notes Marital status: Tobacco Control (Standard) Question Answer Notes Tobacco use: Nonsmoker Problems Problem Type SNOMED Code ICD Code Onset Dates Problem Status W/U Status Risk Notes Problem 6636269 Primary insomnia (F51.01) Active confirmed Problem 38397011 CECE (generalized anxiety disorder) (F41.1) Active confirmed Problem 08068569 MDD (major depressive disorder), recurrent severe, 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) Active confirmed Vital Signs Heart Rate 71 /min 10/24/2023 Height-cm 167.64 cm 10/24/2023 Blood pressure diastolic 75 mm Hg 10/24/2023 Weight-kg 65.23 kg 10/24/2023 Height 66.00 in 10/24/2023 Blood pressure systolic 117 mm Hg 10/24/2023 Weight 143.80 lbs 10/24/2023 BMI 23.2 kg/m2 10/24/2023 Encounters Encounter Location Date Provider Diagnosis [facility] [address] [place] [address] 10/24/2023 Radha Lundy Major depressive disorder, recurrent, moderate F33.1 ; Primary insomnia F51.01 and Generalized anxiety disorder F41.1 [facility] [address] [place] [address] 01/03/2024 Radha Kamron MDD (major depressive disorder), recurrent severe, 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 ; CECE (generalized anxiety disorder) F41.1 and Primary insomnia F51.01 [facility] [address] [place] [address] 04/02/2024 Radha Kamron MDD (major depressive disorder), recurrent severe, 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 ; CECE (generalized anxiety disorder) F41.1 and Primary insomnia F51.[address] [address] 12/15/2023 Provider Migration [address] [address] 12/16/2023 Provider Migration [address] [address] 01/01/2024 Radha Kamron [address] [address] 01/16/2024 Radha Kamron Primary insomnia F51.[address] [address] 04/30/2024 Radha Kamron MDD (major depressive disorder), recurrent severe, 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 [address] 05/02/2024 Radha Kamron Primary insomnia F51.[address] [address] 06/28/2024 Radha Kamron MDD (major depressive disorder), recurrent severe, 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 Assessments Encounter Date Diagnosis (ICD Code) Assessment Notes Treatment Notes Treatment Clinical Notes Section Notes 10/24/2023 Major depressive disorder, recurrent, moderate (ICD-10 - F33.1) 10/24/2023 Generalized anxiety disorder (ICD-10 - F41.1) 10/24/2023 Primary insomnia (ICD-10 - F51.01) 01/03/2024 MDD (major depressive disorder), recurrent severe, without psychosis (ICD-10 - F33.2) 01/16/2024 Primary insomnia (ICD-10 - F51.01) 04/02/2024 MDD (major depressive disorder), recurrent severe, without psychosis (ICD-10 - F33.2) 04/30/2024 MDD (major depressive disorder), recurrent severe, without psychosis (ICD-10 - F33.2) 05/02/2024 Primary insomnia (ICD-10 - F51.01) 06/28/2024 MDD (major depressive disorder), recurrent severe, without psychosis (ICD-10 - F33.2) 01/03/2024 CECE (generalized anxiety disorder) (ICD-10 - F41.1) 04/02/2024 CECE (generalized anxiety disorder) (ICD-10 - F41.1) 04/02/2024 Primary insomnia (ICD-10 - F51.01) 01/03/2024 Primary insomnia (ICD-10 - F51.01) 01/03/2024 Other Stable on current medications. Patient educated on all medications including potential benefits, side effects, risks. Educated on proper dosing schedule and importance of compliance. [place] report checked and consistent with prescription history, no controlled substance prescriptions from other providers. 04/02/2024 Other Stable, continue current medications, refills sent in today. Patient educated on all medications including potential benefits, side effects, risks. Educated on proper dosing schedule and importance of compliance. [place] report checked and consistent with prescription history. Plan Of Treatment Next Appt Details Provider Name:Radha Malcolm Hawleyag, 08/06/2024 11:00:00 AM, [address], [place], [address], Insurance Providers Payer Name Payer Address Payer Phone Subscriber Number Group Number Insured Name Patient Relationship to Insured Coverage Start Date Coverage End Date [employer] [address] [place] [address] [id number] KATRINA CAMARENA Self - patient is the insured Medical (General) History Surgical History Surgery Date(Month/Year) Endometrial ablation (74546) Other 08/09/2022
--- OUTSIDE RECORDS SUMMARY | 2024-07-28 01:01 | XMS_ITS | Encounter Summary ---
Author Organization [facility] Address [address] [place] [address] Care Team Providers Care Autism Motor Specialist Name Role Phone Peyman Ortega MD Primary Care Provider Encounter Details Date Type Department Care Team (Latest Contact Info) Description 06/24/2024 Travel Social History Tobacco Use Types Packs/Day Years Used Date Smoking Tobacco: Former Cigarettes Q uit: 1984 Passive Smoke Exposure: Never Smokeless Tobacco: Never Alcohol Use Standard Drinks/Week Comments Not Currently 0 (1 standard drink = 0.6 oz pur e alcohol) Sex and Gender Information Value Date Recorded Sex Assigned at Not on file Gender Identity Not on file Sexual Orientation Not on file documented as of this encounter Plan of Treatment Upcoming Encounters Date Type Department Care Team (Late st Contact Info) Description 12/10/2024 10:50 AM CDT Office Visit [facility] - SENIOR PROPERTY ACCOUNTANT [address] [facility] [address] [place] [address] Valentina Hamm MD [address] [facility] [address] [place] [address] documented as of this encounter Visit Diagnoses Not on filedocumented in this encounter Care Teams Autism Motor Specialist Relationship Specialty Start Date End Date Peyman Ortega MD [address] [place] [address] [address] [place] [address] PCP - General Family Medicine 04/22/24 documented as of this encounter
--- OUTSIDE RECORDS SUMMARY | 2024-07-28 01:01 | XMS_ITS | Referral Summary ---
Author Organization [facility] Address [address] [facility] [place] [address] Care Team Providers Care Spinner Frame Name Role Phone Peyman Ortega MD Primary Care Provider Source Comments [facility],non-owned Affiliates and Associated Physician Practices is amultiple site organization consisting of ambulatory clinics and hospital sitesin [place], [place], [place] and [place]. This disclosure is being madepursuant to the Care Everywhere program and may not contain all information available regarding this patient. Last updated 18.[facility] Encounters Date Type Department Care Team Description 06/24/2024 Travel 06/24/2024 2:00 PM POUCH MAKER Office Visit [facility] - SHAPE BRICK MOLDER [address], [facility] [address] [place] [address] Valentina Hamm MD Lichen sclerosus et atrophicus of the vulva (Primary Dx) 06/09/2024 Travel 06/09/2024 2:30 PM POUCH MAKER Procedure visit [facility] - SHAPE BRICK MOLDER [address] [place] [address] Postmenopausal bleeding ; Vaginal burning 05/28/2024 Refill [facility] - SHAPE BRICK MOLDER [address], [address] [place] [address] Valentina Hamm MD MEDICATION REFILL from Last 3 Months Allergies Active Allergy Reactions Criticality Noted Date [...] 4 times daily 10/23/2023 Active HYDROcodone-acetamino phen ([place]) 7.5-325 MG tablet Take 1 (one) tablet [...] (08/15/2023): Added automatically from request for surgery [id number] Chronic use of opiate drug for therapeutic purpo se 11/19/2018 08/15/2023 Depression 09/29/2015 08/15/2023 Arthralgia of hip 09/29/2013 08/15/2023 Fibromyalgia 06/21/2010 08/15/2023 Generalized osteoarthritis 06/21/201008/15 Immunizations Name Administration Dates Next Due INFLUENZA VACCINE, QUADR. (F LUZONE; FLULAVAL; FLUARIX; AFLURIA QUADRIVALENT; 6MO+), 0.5 ML (IIV4) 05/04/2020 Social History Tobacco Use Types Packs/Day Years [...] Comments Blood Pressure 130/76 06/24/2024 1:40 PM POUCH MAKER Pulse - - Temperature 37 ??C (98.6 ??F) 04/22/2024 3:16 PM CDT Respiratory Rate - - Oxygen Saturation - - Inhaled Oxygen Concentration - - Weight 66.9 kg (147 lb 6.4 oz) 06/24/2024 1:40 P M POUCH MAKER Height 167.6 cm (5' 6 ) 06/24/2024 1:40 PM POUCH MAKER Body Mass Index 23.79 06/24/2024 1:40 PM POUCH MAKER Plan of Treatment Upcoming Encounters Date Type Department Care Team (Late st Contact Info) Description 12/10/2024 10:50 AM CDT Office Visit [facility] - SHAPE BRICK MOLDER [address], [address] [place] [address] Valentina Hamm MD [address] [place] [address] Procedures Procedure Name Priority Date/Time Associated Diagnosis Comments [place] SONO EXAM, TRANSVAGINAL Routine 06/09/2024 2:31 PM POUCH MAKER Postmenopausal bleeding [place] US PELVIC NONOB REAL-TIME IMG COMPLETE Routine 06/09/2024 2:31 PM POUCH MAKER Postmenopausal bleeding from Last 3 Months Results * [place] US PELVIC NONOB REAL-TIME IMG COMPLETE, [place] SONO EXAM, TRANSVAGINAL (06/09/2024 2:31 PM POUCH MAKER) Linked Results Indication ======== Postmenopausal Bleeding History ====== NURSE INSTRUCTOR History ?Postmenopausal . Uterus ====== Appears normal. [...] Small intramural fibroid Coding ====== Procedures ? 13031: US Transvaginal Non OB ? 43732: US Pelvis Complete [employer] PACS 06/09/2024 2:31 PM POUCH MAKER Valentina Hamm MD PROCEDURE/MINOR MELARA RGICAL ORDERABLES [employer] PACS from Last 3 Months Care Teams Spinner Frame Relationship Specialty Start Date End Date Peyman Ortega MD [address] [place] [address] PCP - General Family Medicine 04/22/24
--- OUTSIDE RECORDS SUMMARY | 2024-07-28 01:01 | XMS_ITS ---
Author Organization [facility] Address [address] [facility] [address] [place] [address] Care Team Providers Care Strain Technician Name Role Phone Radha Lundy Unavailable [phone] REASON FOR VISIT New Refill Request Medications Medication SIG (Take, Route, Frequency, Duration) Notes Start Date End Date Status Zolpidem Tartrate 10 MG 1 tablet at bedt alec as needed Oral Once a day for 90 days 05/05/2024 08/02/2024 Active Social History Sex Assigned At : Social History Observation Description Sex Assigned At Female Encounters Encounter Location Date [facility] [place] [id number] [facility] [address] [facility] [address] [place] [address] 05/02/2024 Radha Lundy Primary insomnia F51.01 Assessments Encounter Date Diagnosis (ICD Code) Assessment Notes Treatment Notes Treatment Clinical Notes Section Notes 05/02/2024 Primary insomnia (ICD-10 - F51.01) Plan Of Treatment Medication Medication Name Sig Start Date Stop Date Notes Zolpidem Tartrate 10 MG 1 tablet at bedt alec as needed Oral Once a day for 90 days 05/05/2024 08/02/2024 Next Appt Details Provider Name:Radha Lundy, 08/06/2024 11:00:00 AM, [address], [facility] [address], [place], [address], Progress Notes * FER CAMARENAB:[birth year] (63 yo F)Acc No.[id number]:05/02/2024 Patient:?KATRINA CAMARENA :1960???Age:63 Y???Sex:Female Address:[address] [place] [address], [address] * Refills? Refill Zolpidem Tartrate Tablet, 10 MG, Oral, 90 Tablet, 1 tablet at bedtime as needed, Once a day, 90 days, Refills=0 * true * Date:? Generated for Malena rasmussen/Urvashi/Peytonitting on:?07/28/2024 01:01 AM SENIOR CLINICAL SAS PROGRAMMER
--- OUTSIDE RECORDS SUMMARY | 2024-07-28 01:02 | XMS_ITS | Encounter Summary ---
Author Organization [facility] Address [address] [place] [address] Care Team Providers Care Snipper Name Role Phone Unavailable Primary Care Provider Unavailabl e Reason for Visit * Reason Comments Imm Inj Encounter Details Date Type Department Care Team (Late st Contact Info) Description 05/04/2020 3:40 PM CDT Office Visit [facility] AT [address] [id number] Need for vaccination (Primary Dx) Social History Tobacco Use Types Packs/Day Years Used Date Smoking Tobacco: Never Assessed Sex and Gender Information Value Date Recorded Sex Assigned at Not on file Gender Identity Not on file Sexual Orientation Not on file COVID-19 Exposure Response Date Recorded In the last month, have you been in contact with someone who was confirmed or suspected to have Coronavirus / COVID-19? No / Unsure 05/04/2020 9:18 AM CDT documented as of this encounter Progress Notes * Ivanna Winter APRN-CNP - 05/04/2020 3:24 PM CDT Annette Santiago is a .59 year old .female patient, here for: Chief Complaint Patient presents with ??? Imm Inj Orders Placed This Encounter ??? FLU VACCINE QUAD IIV4 SPLIT PF IM Patient tolerated without difficulty. Hemostasis achieved, and sterile band-aid placed. Immunization questionnaire scanned into the medical record. -Advised patient to keep a record of all vaccinations. (may use [facility] MyChart if desired) -May take Tylenol (acetaminophen) as needed for aches/pains per package directions. -If you develop redness, swelling at the injection site; it should resolve on its own within 5-7 days of injection. Use warm compresses as needed to the site. -Return to clinic for an evaluation if needed. -Current [facility] VIS Handout given Follow-up with your No primary care provider on file. as directed. If no PCP listed, referral offered. .SALVADOR Schafer 05/04/2020 3:26 PM documented in this encounter Plan of Treatment Upcoming Encounters Date Type Department Care Team (Late st Contact Info) Description 12/10/2024 10:50 AM CDT Office Visit [facility] - COORDINATE MEASURING MACHINE OPERATOR [address], [facility] [address] [place] [address] Valentina Hamm MD [address] [facility] [address] [place] [address] documented as of this encounter Visit Diagnoses Diagnosis Need for vaccination- Primary Need for prophylactic vaccination and inoculation against unspecified single disease documented in this encounter
--- OUTSIDE RECORDS SUMMARY | 2024-07-28 01:02 | XMS_ITS | Encounter Summary ---
Author Organization [facility] Address [address] [place] [address] Care Team Providers Care Gis Mapping Technician Name Role Phone Rohan Rothman MD Primary Care Provider [phone] Encounter Details Date Type Department Care Team (Late Contact Info) Description 02/18/2024 Orders Only [facility] - COLLEGE RECRUITER [address], [facility] [address] [place] [address] Valentina Hamm MD [address] [facility] [address] [place] [address] Lichen sclerosus et atrophicus of the vulva Social History Tobacco Use Types Packs/Day Years [...] Encounters Date Type Department Care Team (Late Contact Info) Description 12/10/2024 10:50 AM CDT Office Visit [facility] - COLLEGE RECRUITER [address], [address] [place] [address] Valentina Hamm MD [address] [address] documented as of this encounter Visit Diagnoses Diagnosis Lichen sclerosus et atrophicus of the vulva Circumscribed scleroderma documented in this encounter Care Teams Gis Mapping Technician Relationship Specialty Start Date End Date Rohan Rothman MD [address] [place] [address] PCP - General Family Medicine 08/15/23 04/21/24 documented as of this encounter
--- OUTSIDE RECORDS SUMMARY | 2024-07-28 01:02 | XMS_ITS | Encounter Summary ---
Author Organization [facility] Address [address] [facility] [place] [address] Care Team Providers Care Central Supply Nurse Name Role Phone Rohan Rothman MD Primary Care Provider [phone] Reason for Visit * Reason Comments Follow-up Encounter Details Date Type Department Care Team (Late st Contact Info) Description 09/04/2023 2:00 PM ELECTRICAL TRYOUT PERSON Office Visit [facility] - SCALLOP DREDGER [address] [facility] [address] [place] [address] Valentina Hamm MD [address] [facility] [address] [place] [address] Lichen sclerosus et atrophicus of the vulva (Primary Dx); Vulvar vestibulitis Social History Tobacco Use Types Packs/Day Years Used Date Smoking Tobacco: Former Cigarettes Q uit: 1983 Passive Smoke Exposure: Never Smokeless Tobacco: Never Tobacco Cessation:Counseling Given: Not Answered Alcohol Use Standard Drinks/Week Comments Not Currently 0 (1 standard drink = 0.6 oz pur e alcohol) Sex and Gender Information Value Date Recorded Sex Assigned at Not on file Gender Identity Not on file Sexual Orientation Not on file documented as of this encounter Last Filed Vital Signs Vital Sign Reading Time Taken Comments Blood Pressure 126/78 09/04/2023 2:03 PM ELECTRICAL TRYOUT PERSON Pulse - - Temperature 36.8 ??C (98.2 ??F) 09/04/2023 2:03 PM CS T Respiratory Rate - - Oxygen Saturation - - Inhaled Oxygen Concentration - - Weight 64.3 kg (141 lb 12.8 oz) 09/04/2023 2:03 PM ELECTRICAL TRYOUT PERSON Height 167.7 cm (5' 6.02 ) 09/04/2023 2:03 PM CS T Body Mass Index 22.87 09/04/2023 2:03 PM ELECTRICAL TRYOUT PERSON documented in this encounter Patient Instructions * Patient Instructions* Valentina Hamm MD - 09/04/2023 2:21 PM ELECTRICAL TRYOUT PERSON Use the tacrolimus ointment twice daily to the clitoral area, right below the clitoris, down the sides where the labia were and on the perianal area. May put tube in the refrigerator if it causes anyburning with application. Also put on over the vegetable shortening and may layer vegetable shortening over it if needed Compounded estradiol/testosterone ointment twice daily to the vestibule put on over the vegetable shortening vegetable shortening also to the inside the vestibule TRICAL TRYOUT PERSON documented in this encounter Progress Notes * Valentina Hamm MD - 09/04/2023 2:09 PM CST [facility] Return Visit Date: 09/04/2023 Allergies: Allergies Allergen Reactions ??? Decongest-Aid [Pseudoephedrine Base] Other Bladder spasm VS: BP 126/78 Temp 98.2 ??F (36.8 ??C) Ht 1.677 m (5' 6.02 ) Wt 64.3 kg (141 lb 12.8 oz) Treatment(s): vegetable shortening, Vaseline Status: same Subjective: First f/u today for lichen sclerosus. Has implemented the Vulvar skin care guidelines. Initial yeast culture was negative. Tried the triamcinolone ointment it caused her tissue to get redand burn. Is only using the vegetable shortening, but not inside the vagina. The external tissues are not burning but the vaginal burning is a 6. Symptoms: (None=0; 10=Severe) Dyspareunia: Entry:n/a Burning after intercourse:n/a Vaginal discharge: 0 Vaginal burnin Vulvar itchin Clitoral pain: 0 Vulvar pain: 0 Urinary symptoms: 0 Correct product use: VCG followed on all aspects: good compliance Vulvar Examination: See Photo Documentation/annotated image-if photo taken, verbal consent obtained Whitening on external tissue and especially around the anus Vestibular glands all tender 6/10 Cultures collected: None Biopsy: Impression/Plan: 1. Lichen sclerosus Continue the Vulvar Care Guidelines Will switch to tacrolimus twice daily 2. Vestibulodynia Compounded e/t ointment twice daily vegetable shortening twice daily 3. F/U in September TRICAL TRYOUT PERSON documented in this encounter Plan of Treatment Upcoming Encounters Date Type Department Care Team (Late st Contact Info) Description 12/10/2024 10:50 AM CDT Office Visit [facility] - SCALLOP DREDGER [address] [facility] [address] [place] [address] Valentina Hamm MD [address] [facility] [address] [place] [address] documented as of this encounter Visit Diagnoses Diagnosis Lichen sclerosus et atrophicus of the vulva- Primary Circumscribed scleroderma Vulvar vestibulitis documented in this encounter Care Teams Central Supply Nurse Relationship Specialty Start Date End Date Rohan Rothman MD [address] [place] [address] PCP - General Family Medicine 08/15/23 04/21/24 documented as of this encounter
--- OUTSIDE RECORDS SUMMARY | 2024-07-28 01:02 | XMS_ITS | Encounter Summary ---
Author Organization [facility] Address [address] [facility] [place] [address] Care Team Providers Care Dowel Machine Operator Name Role Phone Unavailable Primary Care Provider Unavailabl e Encounter Details Date Type Department Care Team (Latest Contact Info) Description 05/16/2023 Travel Social History Tobacco Use Types Packs/Day Years Used Date Smoking Tobacco: Never Assessed Sex and Gender Information Value Date Recorded Sex Assigned at Not on file Gender Identity Not on file Sexual Orientation Not on file documented as of this encounter Plan of Treatment Upcoming Encounters Date Type Department Care Team (Late st Contact Info) Description 12/10/2024 10:50 AM CDT Office Visit [facility] - SOCIAL CONTACT WORKER [address], [facility] [address] [place] [address] Valentina Hamm MD [address] [facility] [address] [place] [address] documented as of this encounter Visit Diagnoses Not on filedocumented in this encounter
--- OUTSIDE RECORDS SUMMARY | 2024-07-28 01:02 | XMS_ITS | Encounter Summary ---
Author Organization [facility] Address [address] [facility] [place] [address] Care Team Providers Care Shop Manager Name Role Phone Unavailable Primary Care Provider Unavailabl e Encounter Details Date Type Department Care Team (Latest Contact Info) Description 05/04/2020 Travel Social History Tobacco Use Types Packs/Day [...] AM CDT documented as of this encounter Plan of Treatment Upcoming Encounters Date Type Department Care Team (Late st Contact Info) Description 12/10/2024 10:50 AM CDT Office Visit [facility] - DIRECTOR INSURANCE [address], [facility] [address] [place] [address] Valentina Hamm MD [address] [facility] [address] [place] [address] documented as of this encounter Visit Diagnoses Not on filedocumented in this encounter
--- OUTSIDE RECORDS SUMMARY | 2024-07-28 01:02 | XMS_ITS | Encounter Summary ---
Author Organization [facility] Address [address] [facility] [place] [address] Care Team Providers Care Customer Account Technician Name Role Phone Rohan Rothman MD Primary Care Provider [phone] Reason for Visit * Reason Comments Vaginal Problem Encounter Details Date Type Department Care Team (Late st Contact Info) Description 08/15/2023 11:10 AM RADIOLOGY MANAGER Office Visit [facility] - CIRCUIT DESIGN ENGINEER [address] [facility] [address] [place] [address] Valentina Hamm MD [address] [facility] [address] [place] [address] Lichen sclerosus et atrophicus of the vulva (Primary Dx) Social History Tobacco Use Types [...] Sign Reading Time Taken Comments Blood Pressure 138/78 08/15/2023 11:03 AM RADIOLOGY MANAGER Pulse - - Temperature 36.7 ??C (98 ??F) 08/15/2023 11:03 AM RADIOLOGY MANAGER Respiratory Rate - - Oxygen Saturation - - Inhaled Oxygen Concentration - - Weight 63 kg (139 lb) 08/15/2023 11:03 AM RADIOLOGY MANAGER Height 167.6 cm (5' 6 ) 08/15/2023 11:03 AM RADIOLOGY MANAGER Body Mass Index 22.44 08/15/2023 11:03 AM RADIOLOGY MANAGER documented in this encounter Patient Instructions * Patient Instructions* Valentina Hamm MD - 08/15/2023 11:11 AM RADIOLOGY MANAGER All free and clear laundry detergent on all clothing Toilet paper needs to be regular two ply no ultra-strong or ultra-soft vegetable shortening twice daily to vulvar and perianal tissues, at bedtime use inside the vaginal opening triamcinolone ointment twice daily to the vulvar and perianal tissues for the next month, then decrease to nightly until you return. Put on over the vegetable shortening . OLOGY MANAGER documented in this encounter Progress Notes * Valentina Hamm MD - 08/15/2023 11:10 AM CST [facility] New Patient Intake Date: 08/15/2023 Refererring Physician: Jessy Yao Age: [age] year old No obstetric history on file. VS: BP 138/78 Ht 1.676 m (5' 6 ) Wt 63 kg (139 lb) Allergies: Decongest-aid [pseudoephedrine base] Medication(s): See list Medical History: Past Medical History: Diagnosis Date ??? Age-related osteoporosis without current pathological fracture ??? Arthritis ??? Fibromyalgia ??? Lichen sclerosus et atrophicus of the vulva Surgical History: Past Surgical History: Procedure Laterality Date ??? Cervical Diskectomy ??? Pelvic Laparoscopy endometriosis ? ? UTERUS (D&C) Review of Systems: Constitutional: Negative Eyes: Contacts/Glasses Ears, nose, mouth, throat, and face: Negative Respiratory: Negative Cardiovascular: Negative Gastrointestinal: Difficulty swallowing Genitourinary:Nocturia, Hesitancy and Decreased stream Integument/breast: Breast lump Hematologic/lymphatic: Negative Musculoskeletal: Muscular pain, Stiff joints, Neck pain and Back pain Neurological: Negative Behavioral/Psych: Negative Endocrine: Negative Allergic/mmunologic: Negative Chief Complaint: Has a history of Lichen sclerous and for years used clobetasol. Then her strip catcher prescribed Opzelura off label, used it for a year, has been off for two month. Used only twice weekly. Seemed to clear things up, but has a residual burning. Affects her ability to urinate when she is inflamed. Feels obstructed and has to push to make it come out. Has been using a triple antibiotic ointment now only. Has been tested for yeast and was negative. When on clobetasol, used only aslittle as possible 3 times a week. Only made things tolerable. Does not itch but does burn. Symptoms: (0=None; 10=Severe) Dyspareunia: Entry:n/a Burning after intercourse:n/a Vaginal discharge: 0 Vulvar burnin-7, mostly 5 Vulvar itchin Clitoral pain: 0 Vulvar pain: 0 Urinary symptoms: 0 Duration of symptom(s): years Association with any major life or gynecological event/illness? no Previous diagnoses: lichen sclerosus Previous biopsies: Yes Previous treatment(s): opzelura Current treatment(s): Antibiotic ointment Symptoms prevent activities? Yes urination, sexual History of STI: No Partner with symptoms of irritation, itching, burning or discharge? No Hormone therapy or OCP use? yes, OCP and HRT; Length of use: Years Psychosocial aspects: Fear of having to live with chronic pain? No Loss of previously satisfying sex life? Yes Relationship problems with partner? No Isolation due to private nature of problem?No Able to discuss the problem with family members or friends? No Fear of possible cancer? No Emotional, parada, frustrated and/or angry? No Fear of haivng a disease that you may give to others? No Antidepressant/antianxiolytic use? No Instruction Vulvar Care Guidelines Vulvar Examination: See Photo Documentation/annotated image-if photo taken, verbal consent obtained Phimosis of clitoris Loss of labia Narrowing of introitus Whitening of vulvar and perianal tissues Cultures: yeast Biopsy: Not done Impression/Plan: 1. Lichen sclerosus Implement Vulvar Care Guidelines Check yeast culture vegetable shortening many times a day triamcinolone ointment twice daily for a month, then daily until returns 2. F/U in 3 months Time - The total face to face encounter time was 50 minutes. A significant portion (>50%) time was spent face to face in counseling the patient about the Vulvar Care Guidelines, lichen sclerosus and discussing the treatment plan as outlined in instructions. Her questions were answered to her satisfaction. Written instructions were provided. The patients medications, allergies, medical history, surgical history, family history, and social history were reviewed and changes are amended directly in theappropriate areas of the electronic medical record and electronically signed. I also spent 10 minutes of time on the day of the visit preparing to see the patient and completingthe visit documentation, including some or all of the following: ? obtaining and/or reviewing separately obtained history (as available from electronic record, careeverywhere, provided records from the patient if available) ? counseling and educating the patient/family/caregiver ? ordering medications, tests, or procedures as needed ? referring and communicating with other health medical care evaluation specialist via faxed communication ? documenting clinical information in the electronic health record ? independently interpreting results and communicating results to the patient/family/caregiver as needed ? care coordination as needed Total time 60 minutes New: 30 min (67870) 45 min (22202) 60 min (53629) Established 20 min (71905) 30 min (15697) 40 min (42532) OLOGY MANAGER documented in this encounter Plan of Treatment Upcoming Encounters Date Type Department Care Team (Late st Contact Info) Description 12/10/2024 10:50 AM CDT Office Visit [facility] - CIRCUIT DESIGN ENGINEER [address] [place] [address] Valentina Hamm MD [address] [facility] [address] [place] [address] documented as of this encounter Procedures Procedure Name Priority Date/Time Associated Diagnosis Comments CULTURE YEAST WITH DIRECT FLUORESCENT NEGIN Routine 08/15/2023 11:17 AM RADIOLOGY MANAGER Lichen sclerosus et atrophicus of the vulva documented in this encounter Results * CULTURE YEAST WITH DIRECT FLUORESCENT NEGIN (08/15/2023 11:17 AM RADIOLOGY MANAGER) Smear [facility] Comment: ??CULTURE, YEAST, W/DIRECT FLUORESCENT NEGIN ?Micro Number: ?[id number] ??Test Status: ? Final ??Specimen Source: ?? Genital ??Specimen Quality: ??Adequate ??Smear: ? No yeast seen ??Result: ?No yeast isolated Test Performed at: [facility] ??[id number] ERASMO ZAPIEN MD Microbiology SPECIMEN FROM GENITAL SYSTEM / Unknown 08/15/2023 11:17 AM RADIOLOGY MANAGER 08/16/2023 5:01 AM RADIOLOGY MANAGER Valentina Hamm MD LAB - MICROBIOLOGY ORDERABLES Performing Organization Address [facility]/State/[facility] Co de Phone Number [employer] [address] [place] [address] documented in this encounter Visit Diagnoses Diagnosis Lichen sclerosus et atrophicus of the vulva- Primary Circumscribed scleroderma documented in this encounter Care Teams Customer Account Technician Relationship Specialty Start Date End Date Rohan Rothman MD [address] [place] [address] PCP - General Family Medicine 08/15/23 04/21/24 documented as of this encounter
--- OUTSIDE RECORDS SUMMARY | 2024-07-28 01:02 | XMS_ITS | Encounter Summary ---
Author Organization [facility] Address [address] [facility] [place] [address] Care Team Providers Care Statistical Consultant Name Role Phone Rohan Rothman MD Primary Care Provider [phone] Reason for Visit * Reason Onset Date Comments Reminder Call 08/09/2023 new pt call pt hanh barry to be 30 min prior to appt Encounter Details Date Type Department Care Team (Late st Contact Info) Description 08/09/2023 Telephone [facility] - DIE CUTTER APPRENTICE [address], [address] [address] Natalie Hensley [address] [place] Reminder Call (new pt call pt aware to be 30 min prior to appt) Social History Tobacco Use Types Packs/Day Years Used Date Smoking Tobacco: Never Assessed Sex and Gender Information Value Date Recorded Sex Assigned at Not on file Gender Identity Not on file Sexual Orientation Not on file documented as of this encounter Miscellaneous Notes * Telephone Encounter - Natalie Hensely - 08/09/2023 3:13 PM CST new pt call pt aware to be 30 min prior to appt called on 08/09 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 documented in this encounter Plan of Treatment Upcoming Encounters Date Type Department Care Team (Late st Contact Info) Description 12/10/2024 10:50 AM CDT Office Visit [facility] - DIE CUTTER APPRENTICE [address], [facility] [address] [place] [address] Valentina Hamm MD [address] [facility] [address] [place] [address] documented as of this encounter Visit Diagnoses Not on filedocumented in this encounter Care Teams Statistical Consultant Relationship Specialty Start Date End Date Rohan Rothman MD [address] [place] [address] PCP - General Family Medicine 08/15/23 04/21/24 documented as of this encounter
--- OUTSIDE RECORDS SUMMARY | 2024-07-28 01:02 | XMS_ITS | Encounter Summary ---
Author Organization [facility] Address [address] [facility] [place] [address] Care Team Providers Care Acid Leveler Name Role Phone Peyman Ortega MD Primary Care Provider Encounter Details Date Type Department Care Team (Latest Contact Info) Description 04/22/2024 Travel Social History Tobacco Use Types Packs/Day [...] Description 12/10/2024 10:50 AM CDT Office Visit [facility] - MAIL TELLER [address] [facility] [address] [place] [address] Valentina Hamm MD [address] [facility] [address] [place] [address] documented as of this encounter Visit Diagnoses Not on filedocumented in this encounter Care Teams Acid Leveler Relationship Specialty Start Date End Date Peyman Ortega MD [address] [place] [address] [address] [place] [address] PCP - General Family Medicine 04/22/24 documented as of this encounter
--- OUTSIDE RECORDS SUMMARY | 2024-07-28 01:02 | XMS_ITS | Encounter Summary ---
Author Organization [facility] Address [address] [place] [address] Care Team Providers Care Recooperer Name Role Phone Rohan Rothman MD Primary Care Provider [phone] Encounter Details Date Type Department Care Team (Latest Contact Info) Description 11/20/2023 Travel Social History Tobacco Use Types Packs/Day [...] CDT Office Visit [facility] - SAP PAYROLL CONSULTANT [address] [facility] [address] [place] [address] Valentina Hamm MD [address] [facility] [address] [place] [address] documented as of this encounter Visit Diagnoses Not on filedocumented in this encounter Care Teams Recooperer Relationship Specialty Start Date End Date Rohan Rothman MD [address] [place], [place] [id number] PCP - General Family Medicine 08/15/23 04/21/24 documented as of this encounter
--- OUTSIDE RECORDS SUMMARY | 2024-07-28 01:02 | XMS_ITS | Encounter Summary ---
Author Organization [facility] Address [address] [facility] [place] [address] Care Team Providers Care Supervisor Home Economics Name Role Phone Peyman Ortega MD Primary Care Provider Reason for Visit * Reason Onset Date Comments MEDICATION REFILL 05/28/2024 Encounter Details Date Type Department Care Team (Late st Contact Info) Description 05/28/2024 Refill [facility] - LAMINATION SPINNER [address], [facility] [address] [place] [address] Valentina Hamm MD [address] [facility] [address] [place] [address] MEDICATION REFILL Social History Tobacco Use Types Packs/Day Years [...] encounter Miscellaneous Notes * Telephone Encounter - Reanna Manning RN - 05/28/2024 8:58 AM CDT Last seen 04/22/2024 Per that note: Will switch to hydrocortisone 2.5% ointment twice daily Has 06/24/2024 pending Rx refill sent through [employer] after pharmacy fax'd request Hydrocortisone ointment documented in this encounter Plan of Treatment Upcoming Encounters Date Type Department Care Team (Late st Contact Info) Description 12/10/2024 10:50 AM CDT Office Visit [facility] - LAMINATION SPINNER [address], [facility] [address] [place] [address] Valentina Hamm MD [address] [facility] [address] [place] [address] documented as of this encounter Visit Diagnoses Diagnosis Lichen sclerosus et atrophicus of the vulva Circumscribed scleroderma documented in this encounter Care Teams Supervisor Home Economics Relationship Specialty Start Date End Date Peyman Ortega MD [address] [facility] 200 [place] [address] PCP - General Family Medicine 04/22/24 documented as of this encounter
--- OUTSIDE RECORDS SUMMARY | 2024-07-28 01:02 | XMS_ITS | Clinical Summary ---
Author Organization [facility] Address [address] [place] [address] Care Team Providers Care Handstitching Machine Collar Feller Name Role Phone Reanna Polanco RN Unavailable Unavail Peyman Carvajal MD Primary Care Provider Allergies Active Allergy Reactions Criticality Noted Date Comments Capsaicin Other (See comments) Low 2024 intolerable burning Decongestant Capsule Other (See comments) Low 06/05 bladder spasms with decongestants Pseudoephedrine Other (See comments) Medium 05/04/2020 Bladder spasm Medications zolpidem (AMBIEN) 10 mg tabletIndicati ons:Sleep-Onse t Insomnia Take 1 tablet (10 mg total) by mouth nightly Active estradiol-nore thindrone (ACTIVELLA) 1-0.5 mg per tablet Take 1 tablet by mouth nightly 11/15/19 18 Active montelukast (SINGULAIR) 10 mg tabletIndicati ons:Seasonal Allergic Rhinitis Take 1 tablet (10 mg total) by mouth nightly 04/13/20 17 Active ascorbic acid (VITAMIN C) 1,000 mg tabletIndicati ons:Vitamin C Deficiency Take 1 tablet (1,000 mg total) by mouth every morning Active ALPHA LIPOIC ACID ORAL Take 550 mg by mouth every morning Active CALCIUM CARBONATE-VIV MIN D3 ORAL Take 1 tablet by mouth 2 (two) times a day Calcium Carbonate 1,200 mg with Vitamin D 1,000 international units take [address] (CYMBALTA) 60 mg capsuleIndicat ions:Anxiety with Depression Take 1 capsule (60 mg total) by mouth 2 (two) times a day Active cannabidiol, CBD, (EPIDIOLEX) 100 mg/mL solution Take 5 mg/kg by mouth 2 (two) times a day as needed CBD Active metoprolol XL (TOPROL-XL) 25 mg extended release tablet Take 1 tablet (25 mg total) by mouth daily Active magnesium gluconate 200 mg tabletIndicati ons:hypomagnes emia Take 2.5 tablets (500 mg total) by mouth 2 (two) times a day Active famotidine (PEPCID) 10 mg tablet Take 1 tablet (10 mg total) by mouth daily 30 tablet 3 09/18/19 24 Active calcium carbonate (OS-LILIANE) 1,500 mg (600 mg elemental) tablet Take 1,200 mg by mouth 3 (three) times a day with meals Active baclofen (LIORESAL) 20 mg tabletIndicati ons:Muscle Spasticity of Spinal Origin Take 1 tablet (20 mg total) by mouth 4 (four) times a day Takes 1-2 tabs QID 360 tablet 03/20/20 24 Active levomefolate-a lgal oil 15-90.314 mg capsule Take 1 capsule by mouth daily Active hydrocortisone 2.5 % ointment Apply 1 Application topically 2 (two) times a day 04/22/20 24 Active sulfamethoxazo le-trimethopri m (BACTRIM DS) 800-160 mg per tablet 05/08/20 24 Active lurasidone (LATUDA) 60 mg tablet Take 1 tablet (60 mg total) by mouth daily 04/30/20 24 Active methocarbamoL (ROBAXIN) 500 mg tablet Take 2 tablets (1,000 mg total) by mouth 4 (four) times a day as needed for muscle spasms 240 tablet 06/19/20 24 Active meloxicam (MOBIC) 15 mg tablet Take 1 tablet (15 mg total) by mouth daily 90 tablet 3 07/01/20 24 Active back brace [facility]- back brace for scoliosis 1 each 07/01/20 24 Active HYDROcodone-ac etaminophen (NORCO) 7.5-325 mg per tabletIndicati ons:Pain Take 1 tablet by mouth every 6 (six) hours as needed for pain 120 tablet 07/21/20 Active HYDROcodone-ac etaminophen (NORCO) 7.5-325 mg per tabletIndicati ons:Pain Take 1 tablet by mouth every 6 (six) hours as needed for pain 120 tablet 06/19/20 24 024 Discontin ued(Reord er) meloxicam (MOBIC) 15 mg tablet Take 1 tablet (15 mg total) by mouth daily 90 tablet 1 06/24/20 24 024 Discontin ued(Reord er) Active Problems Problem Noted Date Diagnosed Date Other spondylosis with radiculopathy, lumbar reg ion 11/27/2023 Cervical post-laminectomy syndrome 10/31/2022 Cervical spinal stenosis 08/09/2022 Osteoporosis 08/09/2022 GERD (gastroesophageal reflux disease) 3 S/P cervical discectomy 08/09/2022 Spinal stenosis of cervical region 07/07/2022 Overview (10/18/2023): Added automatically from request for surgery [id number] Added automatically from request for surgery [id number] Rotoscoliosis 11/30/2020 Sacroiliac joint dysfunction 11/30/2020 Muscle spasm 04/19/2020 Cervicalgia 11/19/2018 Chronic use of opiate drug for therapeutic purpo se 11/19/2018 Sacroiliitis 08/23/2018 High risk medication use 01/26/2017 Shoulder pain 03/22/2016 Depression 09/29/2015 Elevated liver enzymes 10/05/2014 Pain of lumbar facet joint 04/07/2014 Low back pain 09/29/2013 Arthralgia of hip 09/29/2013 Osteoarthritis of lumbosacral spine without myel opathy 03/07/2013 Generalized osteoarthritis 06/21/2010 Fibromyalgia 06/21/2010 Osteoarthritis of cervical spine 06/21/2010 Encounter for preventive health examination 04/29 Encounters Date Type Department Care Team Description 07/18/2024 10:00 AM MANAGER MARKET DEVELOPMENT Therapy [facility] Physical Therapy [address] [place] [id number] Lyle Watson, ALVAREZ Cervicalgia (Primary Dx) 07/01/2024 Orders Only [facility] [address] [facility] [address] [place] [address] Nancy Fernandez MD 2024 9:51 AM MANAGER MARKET DEVELOPMENT - 2024 11:59 PM MANAGER MARKET DEVELOPMENT Hospital Encounter [facility] [facility] [address] [facility] [address] [place] [address] Nancy Fernandez MD Myalgia (Primary Dx); Bilateral low back pain without sciatica, unspecified chronicity; Muscle spasm Discharge Disposition: Discharge to home or self care 05/26/2024 1:54 PM CDT - 05/26/2024 11:59 PM CDT Hospital Encounter [facility] ([facility]) [address] [place] [address] Rotoscoliosis Discharge Disposition: Discharge to home or self care 05/26/2024 11:50 AM CDT - 05/26/2024 11:59 PM CDT Hospital Encounter [facility] [place] [facility] [address] [facility] [address] [place] [address] Nancy Fernandez MD Osteoarthritis of 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 (Primary Dx); Bilateral low back pain without sciatica, unspecified chronicity; Cervicalgia; Muscle spasm; Rotoscoliosis Discharge Disposition: Discharge to home or self care 05/21/2024 3:40 PM CDT [facility] ([facility]) - [facility] [address] [place] [address] [facility] [address] [place] [address] [place] [address] Moncho Rendon MD Cervicalgia (Primary Dx); Fusion of spine of cervical region; Dysphagia, unspecified type from Last 3 Months Immunizations Name Administration Dates Next Due Influenza, Quadrivalent, Spl it, Intramuscular 05/05/2019 Influenza, Quadrivalent, Spl it, Preservative Free, Intramuscular 05/02/2021,05/04/2020,04/18/2018 Influenza, Trivalent, IM (MDV) 06/22/2014 Influenza, Unspecified 04/28/2022 Tdap 04/18/2018 Surgical History Surgery Date Site/Laterality Comments SD UNLISTED LAPAROSCOPY PX INTESTINE XCP RECTUM Intestinal Laparoscopy - (Added by Conv) HYSTEROSCOPY W/ ENDOMETRIAL ABLATION CATARACT EXTRACTION right eye only SPINAL FUSION 08/09/2022 C3-6 ACDF w/ Dr. Olivier Marion Medical History Medical History Date Comments Personal history of other di seases of the musculoskeletal system and connective tissue History of osteoporosis - (A dded by Conv) Fibromyalgia Chronic pain Low back pain Osteoporosis Depression Low back pain Chronic pain Back pain GERD (gastroesophageal reflux disease) Fibromyalgia, primary Neck pain Tachycardia Anxiety Arthritis Migraines Urinary tract infection Lichen sclerosus Family History Medical History Relation Name Comments Kidney disease Father Reid Feldman Family h istory of kidney disease - (Added by Conv) Stroke Father Reid Feldman Family his tory of cerebrovascular accident - (Added by Conv) Heart disease Maternal Grandfather Peter Salcido Arthritis Mother Daniella Grotefendt COPD Mother Daniella Grotefendt Depression Mother Daniella Grotefendt Heart failure Mother Daniella Grotefendt Family h istory of congestive heart failure - (Added by Conv) Hypertension Mother Daniella Grotefendt Arthritis Mother's Brother Eddie Salcido Depression Mother's Brother Eddie Salcido Arthritis Mother's Sister Patricia Salcido Celiac disease Son 1 Family histor y of celiac disease - (Added by Conv) Allergy (severe) Son 2 Roberto Carlos Santiago Anesthesia problems Neg Hx Relation Name Status Comments Father Reid Feldman Alive Maternal Grandfather Peter Salcido Mother Daniella Feldman Mother's Brother Eddie Salcido Mother's Sister Patricia Salcido Son 1 Son 2 Roberto Carlos Santiago Social History Tobacco Use Types Packs/Day Years Used Date Smoking Tobacco: Former Cigarettes 1 5 0 11/27/1978 - 09/28/1983 Smokeless Tobacco: Never Tobacco Cessation:Counseling Given: Not Answered Alcohol Use Standard Drinks/Week Comments No 0 (1 standard drink = 0.6 oz pur e alcohol) denies AUDIT-C Answer Date Recorded Q1: How often do you have a drink containing alcohol? Never 05/26/2024 Q2: How many drinks containi ng alcohol do you have on a typical day when you are drinking? Patient does not drink 10/28/202 4 Q3: How often do you have si x or more drinks on one occasion? Never 05/26/2024 Hunger Vital Sign Answer Date Recorded Within the past 12 months, y ou worried that your food would run out before you got the money to buy more. Never true 05/28/20 23 Within the past 12 months, t he food you bought just didn't last and you didn't have money to get more. Never true 05/28/2023 Personal Safety Answer Date Recorded Getting School Help Needed Denies 07/11 Comments No Sex and Gender Information Value Date Recorded Sex Assigned at Not on file Legal Sex Female 2:03 AM MANAGER MARKET DEVELOPMENT Gender Identity Female 08/26/2020 6:26 AM MANAGER MARKET DEVELOPMENT Sexual Orientation Straight 08/26/2020 6: 26 AM MANAGER MARKET DEVELOPMENT Obstetrics History Last Filed Vital Signs Vital Sign Reading Time Taken Comments Blood Pressure 137/86 2024 10:02 AM MANAGER MARKET DEVELOPMENT Pulse 68 2024 10:02 AM MANAGER MARKET DEVELOPMENT Temperature 36.5 ??C (97.7 ??F) 2024 10:[address] Respiratory Rate 10 2024 10:01 AM MANAGER MARKET DEVELOPMENT Oxygen Saturation 97% 2024 10:02 AM MANAGER MARKET DEVELOPMENT Inhaled Oxygen Concentration - - Weight 67.1 kg (148 lb) 2024 10:01 AM MANAGER MARKET DEVELOPMENT Height 167.6 cm (5' 6 ) 2024 10:01 AM MANAGER MARKET DEVELOPMENT Body Mass Index 23.89 2024 10:01 AM MANAGER MARKET DEVELOPMENT Plan of Treatment Health Maintenance Due Date Last Done Comments Cervical Cancer Screening 1960 Colon Cancer Screening-Colonoscopy 1960 Depression Screening 1960 Hepatitis C Screening 1960 Hepatitis B Screening 1978 Regular Well Visit/Exam 18-64 1978 Zoster Vaccine (1 of 2) 2010 Covid-19 Vaccine ( season) 2024 11/06/2021, 05/05/2021, 10/22/2020, Additional history exists Influenza Vaccine (#1) 2024 2, 05/02/2021, 05/04/2020, Additional history exists Breast Cancer Screening-Mammogram 07/08/2025 07/08/2024, 07/08/2024 DTaP/Tdap/Td Vaccine (2 - Td or Tdap) 04/18/2028 04/18/2018 Pneumococcal vaccine <65 Aged Out No longer eligible based on patient's age to complete this topic Goals Goal Patient Goal Type Associated Problems Recent Progress Patient-Stated? Author CCM Chronic Pain Care Plan Chronic Care Management Improving( 10:05 AM MANAGER MARKET DEVELOPMENT) Bessy Gayle RN Note: Problem: Chronic Pain Goals: 1. Minimize further functional decline 2. Maximize quality of life 3. Control pain Strategies: - Activity/exercise program recommendation - Conservative stepwise pain medicine strategy with multi-disciplinary approach - Recommend healthy lifestyle strategies and compensatory methods as needed Medical Devices Implanted Type Area Division Roadmaster Device Identifier Shelf Expiration Date Model / Serial / Lot Ray Right: Eye Musculoskeletal Transplant [id number] Frozen Spine 7d Lordotic Trapezoid Spacer Allograft [id number] - [id number] - [id number] Implanted:Qty: 1 on 08/09/2022 by Olivier Marion MD at [facility] N/A: Spine Cervical Musculoskeletal Transplant [id number] 05/18/2026 [id number] / [id number] / Musculoskeletal Transplant [id number] Frozen Spine 7d Lordotic Trapezoid Spacer Allograft [id number] - [id number] - [id number] Implanted:Qty: 1 on 08/09/2022 by Olivier Marion MD at [facility] N/A: Spine Cervical Musculoskeletal Transplant [id number] 04/24/2026 [id number] / [id number] / Musculoskeletal Transplant [id number] Frozen Spine 7d Lordotic Trapezoid Spacer Allograft 400562 - [id number] - [id number] Implanted:Qty: 1 on 08/09/2022 by Olivier Marion MD at [facility] N/A: Spine Cervical Musculoskeletal Transplant [id number] 12/12/2026 [id number] / [id number] / [employer] 4mm 16mm Fix Screw Bone [id number] - [id number] Implanted:Qty: 8 on 08/09/2022 by Olivier Marion MD at [facility] N/A: Spine Cervical [employer] [id number] / / [employer] C-Pancho Maxan 51mm Level 3 Fix Spine Cervical Anterior Plate Bone [id number] - [id number] Implanted:Qty: 1 on 08/09/2022 by Olivier Marion MD at [facility] N/A: Spine Cervical [employer] [id number] / / Procedures Procedure Name Priority Date/Time Associated Diagnosis Comments XR SCOLIOSIS 6 OR MORE VIEWS Schedule Routine, Read Routine (OP Routine) 05/26/2024 2:17 PM CDT Rotoscoliosis from Last 3 Months Results * XR Scoliosis 6 or More Views (05/26/2024 2:17 PM CDT) Anatomical Region Laterality Modality Spine N/A Computed Radiogr aphy 05/26/2024 4:13 PM CDT Impressions 05/26/2024 4:21 PM CDT 1. ??Unchanged anterior discectomy and instrumented spinal fusion of C3-C6 with fractured C7 screw. 2. ??Moderate mid thoracic dextroscoliosis with rotatory lumbar levoscoliosis. ??There is moderate anterior sagittal imbalance and flat-back deformity. 3. ??Severe multilevel degenerative disc disease of the lumbar spine, most pronounced at L3-L5. Dictated by: Florinda Gloria M.D. The radiology attending physician has personally reviewed this study, and had reviewed and/or edited this written report and agrees with it. Electronically signed by: Wojciech Kendall D.O. Narrative 05/26/2024 4:21 PM CDT EXAMINATION: XR SCOLIOSIS ??6 OR MORE VIEWS HISTORY: ??Scoliosis. FINDINGS: 10 ??radiographs of the spine are submitted for interpretation. Comparison is made to MR Lumbar Spine dated 01/25/2024. There is anterior discectomy and instrumented spinal fusion of C3-C6; again noted is a fractured right C7 screw. There is moderate main thoracic dextroscoliosis with rotatory lumbar levoscoliosis. There is no significant coronal truncal imbalance. There is moderate anterior sagittal truncal imbalance. There is no pelvic obliquity. ??There is flattening of the cervical and lumbar lordoses with reversal of the thoracic kyphosis, compatible with flat-back deformity. There is severe multilevel degenerative disc disease of the lumbar spine, worst at L3-L4 and L4-L5. ??There is hypo-mobility of the segment on flexion/extension. ??There is no spondylolisthesis. There is a healed fracture deformity of the left tibial diaphysis. ?? Procedure Note Wojciech Kendall, DO - 05/26/2024 EXAMINATION: XR SCOLIOSIS 6 OR MORE VIEWS HISTORY: Scoliosis. FINDINGS: 10 radiographs of the spine are submitted for interpretation. Comparison is made to MR Lumbar Spine dated 01/25/2024. There is anterior discectomy and instrumented spinal fusion of C3-C6; again noted is a fractured right C7 screw. There is moderate main thoracic dextroscoliosis with rotatory lumbar levoscoliosis. There is no significant coronal truncal imbalance. There is moderate anterior sagittal truncal imbalance. There is no pelvic obliquity. There is flattening of the cervical and lumbar lordoses with reversal of the thoracic kyphosis, compatible with flat-back deformity. There is severe multilevel degenerative disc disease of the lumbar spine, worst at L3-L4 and L4-L5. There is hypo-mobility of the segment on flexion/extension. There is no spondylolisthesis. There is a healed fracture deformity of the left tibial diaphysis. IMPRESSION: 1. Unchanged anterior discectomy and instrumented spinal fusion of C3-C6 with fractured C7 screw. 2. Moderate mid thoracic dextroscoliosis with rotatory lumbar levoscoliosis. There is moderate anterior sagittal imbalance and flat-back deformity. 3. Severe multilevel degenerative disc disease of the lumbar spine, most pronounced at L3-L5. Dictated by: Florinda Gloria M.D. The radiology attending physician has personally reviewed this study, and had reviewed and/or edited this written report and agrees with it. Electronically signed by: Wojciech Kendall D.O. Tara Guardado MD IMG XR PROCEDURES Final Re sult from Last 3 Months Insurance CIGNA OPEN ACCESS CIGNA CIGNA OPEN ACCESS Advance Directives For more information, please contact: [phone] * Full Code (Latest Code Status on File) Date Activated Date Inactivated Comments 08/09/2022 11:03 PM 08/12/2022 9:06 PM Care Teams Handstitching Machine Collar Feller Relationship Specialty Start Date End Date Peyman Ortega MD [address] [facility] [place] [address] [place] [address] PCP - General Family Practice 05/13/24 Reanna Polanco, RN Registered Nurse 07/07/19
--- OUTSIDE RECORDS SUMMARY | 2024-07-28 01:02 | XMS_ITS | Encounter Summary ---
Author Organization [facility] Address [address] [place] [address] Care Team Providers Care Account Consultant Name Role Phone Peyman Ortega MD Primary Care Provider Encounter Details Date Type Department Care Team (Latest Contact Info) Description 06/09/2024 Travel Social History Tobacco Use Types Packs/Day [...] Description 12/10/2024 10:50 AM CDT Office Visit [facility] - MEDICAL FRONT DESK COORDINATOR [address] [facility] [address] [place] [address] Valentina Hamm MD [address] [facility] [address] [place] [address] documented as of this encounter Visit Diagnoses Not on filedocumented in this encounter Care Teams Account Consultant Relationship Specialty Start Date End Date Peyman Ortega MD [address] [place] [address] [address] [place] [address] PCP - General Family Medicine 04/22/24 documented as of this encounter
--- OUTSIDE RECORDS SUMMARY | 2024-07-28 01:02 | XMS_ITS | Encounter Summary ---
Author Organization [facility] Address [address] [place] [address] Care Team Providers Care Digital Data Analyst Name Role Phone Peyman Ortega MD Primary Care Provider Reason for Visit * Reason Comments Follow-up Encounter Details Date Type Department Care Team (Late st Contact Info) Description 06/24/2024 2:00 PM LOCATION DIRECTOR Office Visit [facility] - COIL FINISHER [address] [facility] [address] [place] [address] Valentina Hamm MD [address] [facility] [address] [place] [address] Lichen sclerosus et atrophicus of [...] Comments Blood Pressure 130/76 06/24/2024 1:40 PM LOCATION DIRECTOR Pulse - - Temperature - - Respiratory Rate - - Oxygen Saturation - - Inhaled Oxygen Concentration - - Weight 66.9 kg (147 lb 6.4 oz) 06/24/2024 1:40 P M LOCATION DIRECTOR Height 167.6 cm (5' 6 ) 06/24/2024 1:40 PM LOCATION DIRECTOR Body Mass Index 23.79 06/24/2024 1:40 PM LOCATION DIRECTOR documented in this encounter Progress Notes * Valentina Hamm MD - 06/24/2024 2:00 PM CST [facility] Return Visit Date: 06/24/2024 Allergies: Allergies Allergen Reactions Decongest-Aid [Pseudoephedrine Base] Other Bladder spasm Capsaicin Other and Skin Reactions intolerable burning VS: BP 130/76 Ht 1.676 m (5' 6 ) Wt 66.9 kg (147 lb 6.4 oz) Treatment(s): vegetable shortening Status: improved Subjective: Patient switched to hydrocortisone 2.5% and is doing much better. Using the vegetable shortening twice daily. No more burning. Contacted me by [facility] to report PMB. Had ultrasound which showed a thickened endometrial stripe with probable polyp. Is going to see line cleaner in [place] in a couple of weeks. Symptoms: (None=0; 10=Severe) Dyspareunia: Entry:n/a Burning after intercourse:n/a Vaginal discharge: 0 Vaginal burnin Vulvar itchin Clitoral pain: 0 Vulvar pain: 0 Urinary symptoms: 0 Correct product use: VCG followed on all aspects: good compliance Vulvar Examination: See Photo Documentation/annotated image-if photo taken, verbal consent obtained Whiteness stable Redness much improved. Inflammation resolved Cultures collected: None Biopsy: Impression/Plan: 1. Lichen sclerosus Continue the Vulvar Care Guidelines Continue the hydrocortisone 2.5% ointment twice daily vegetable shortening many times a day 2. Probable endometrial polyp See line cleaner in two weeks 3. F/U in 6 months TION DIRECTOR documented in this encounter Plan of Treatment Upcoming Encounters Date Type Department Care Team (Late st Contact Info) Description 12/10/2024 10:50 AM CDT Office Visit [facility] - COIL FINISHER [address], [facility] [address] [place] [address] Valentina Hamm MD [address] [facility] [address] [place] [address] documented as of this encounter Visit Diagnoses Diagnosis Lichen sclerosus et atrophicus of the vulva- Primary Circumscribed scleroderma documented in this encounter Care Teams Digital Data Analyst Relationship Specialty Start Date End Date Peyman Ortega MD [address] [facility] [address] [place], [place] [id number] PCP - General Family Medicine 04/22/24 documented as of this encounter
--- OUTSIDE RECORDS SUMMARY | 2024-07-28 01:02 | XMS_ITS | Encounter Summary ---
Author Organization [facility] Address [address] [facility] [place] [address] Care Team Providers Care Reamer Hand Name Role Phone Peyman Ortega MD Primary Care Provider Reason for Visit * Reason Comments Ultrasound Encounter Details Date Type Department Care Team (Latest Contact Info) Description 06/09/2024 2:30 PM DIAL MAKER Procedure visit [facility] - PREPARER MAKING DEPARTMENT [address] [facility] [address] [place] [address] Postmenopausal bleeding ; Vaginal burning Social History Tobacco Use Types Packs/Day Years [...] on file documented as of this encounter Procedure Notes * Modesta Lee - 06/09/2024 3:07 PM CSTAssociated Order(s): PROC US PELVIS COMPLETE Procedure(s): SC US PELVIC NONOB REAL-TIME IMG COMPLETE; SC SONO EXAM, TRANSVAGINAL Pre-Procedure Diagnose(s): Postmenopausal bleeding Post-Procedure Diagnose(s): Postmenopausal bleeding Ultrasound is complete MAKER documented in this encounter Plan of Treatment Upcoming Encounters Date Type Department Care Team (Late st Contact Info) Description 12/10/2024 10:50 AM CDT Office Visit [facility] - PREPARER MAKING DEPARTMENT [address] [place] [address] Valentina Hamm MD [address] [place] [address] documented as of this encounter Procedures Procedure Name Priority Date/Time Associated Diagnosis Comments SC SONO EXAM, TRANSVAGINAL Routine 06/09/2024 2:31 PM DIAL MAKER Postmenopausal bleeding SC US PELVIC NONOB REAL-TIME IMG COMPLETE Routine 06/09/2024 2:31 PM DIAL MAKER Postmenopausal bleeding documented in this encounter Results * SC US PELVIC NONOB REAL-TIME IMG COMPLETE, SC SONO EXAM, TRANSVAGINAL (06/09/2024 2:31 PM DIAL MAKER) Linked Results Indication ======== Postmenopausal Bleeding History ====== WIND TURBINE ERECTOR History ?Postmenopausal . Uterus ====== Appears normal. [...] Small intramural fibroid Coding ====== Procedures ? 88621: US Transvaginal Non OB ? 42582: US Pelvis Complete [employer] Interactive PACS 06/09/2024 2:31 PM DIAL MAKER Valentina Hamm MD PROCEDURE/MINOR MELARA RGICAL ORDERABLES [facility] [employer] PACS documented in this encounter Visit Diagnoses Diagnosis Postmenopausal bleeding- Primary Vaginal burning Other specified symptom associated with female genital organs documented in this encounter Care Teams Reamer Hand Relationship Specialty Start Date End Date Peyman Ortega MD [address] [facility] [address] [place] [address] [place] [id number] PCP - General Family Medicine 04/22/24 documented as of this encounter
--- OUTSIDE RECORDS SUMMARY | 2024-07-28 01:02 | XMS_ITS | Encounter Summary ---
Author Organization [facility] Address [address] [facility] [place] [address] Care Team Providers Care Health Education Coordinator Name Role Phone Rohan Rothman MD Primary Care Provider [phone] Encounter Details Date Type Department Care Team (Latest Contact Info) Description 08/15/2023 Travel Social History Tobacco Use Types Packs/Day [...] CDT Office Visit [facility] - VBA PROGRAMMER [address] [facility] [address] [place] [address] Valentina Hamm MD [address] [facility] [address] [place] [address] documented as of this encounter Visit Diagnoses Not on filedocumented in this encounter Care Teams Health Education Coordinator Relationship Specialty Start Date End Date Rohan Rothman MD [address] [place], [place] [id number] PCP - General Family Medicine 08/15/23 04/21/24 documented as of this encounter
--- OUTSIDE RECORDS SUMMARY | 2024-07-28 01:02 | XMS_ITS | Encounter Summary ---
Author Organization [facility] Address [address] [facility] [place] [address] Care Team Providers Care Histopathologist Name Role Phone Rohan Rothman MD Primary Care Provider [phone] Encounter Details Date Type Department Care Team (Latest Contact Info) Description 09/04/2023 Travel Social History Tobacco Use Types Packs/Day [...] CDT Office Visit [facility] - LITHOPONE CHARGER [address] [facility] [address] [place] [address] Valentina Hamm MD [address] [place] [address] documented as of this encounter Visit Diagnoses Not on filedocumented in this encounter Care Teams Histopathologist Relationship Specialty Start Date End Date Rohan Rothman MD [address] [place], [place] [id number] PCP - General Family Medicine 08/15/23 04/21/24 documented as of this encounter
--- OUTSIDE RECORDS SUMMARY | 2024-07-28 01:02 | XMS_ITS | CONTINUITY OF CARE DOCUMENT ---
Author Name harvey gabriel Address Unknown Organization [facility] Address [address] [facility] [address] [place] [address] Phone [phone] Care Team Providers Care Hazmat Technician Name Role Phone harvey gabriel Unavailable Unavailable
--- OUTSIDE RECORDS SUMMARY | 2024-07-28 01:02 | XMS_ITS | Encounter Summary ---
Author Organization [facility] Address [address] [place] [address] Care Team Providers Care Sales Agent Name Role Phone Peyman Ortega MD Primary Care Provider Reason for Visit * Reason Comments Follow-up Encounter Details Date Type Department Care Team (Late st Contact Info) Description 04/22/2024 3:20 PM CDT Office Visit [facility] - AIRCRAFT GENERAL REPAIR MECHANIC [address], [facility] [address] [place] [address] Valentina Hamm MD [address] [facility] [address] [place] [address] Lichen sclerosus et atrophicus of [...] Sign Reading Time Taken Comments Blood Pressure 140/90 04/22/2024 3:16 PM CDT Pulse - - Temperature 37 ??C (98.6 ??F) 04/22/2024 3:16 PM CDT Respiratory Rate - - Oxygen Saturation - - Inhaled Oxygen Concentration - - Weight 65.8 kg (145 lb) 04/22/2024 3:16 PM CDT Height 167.6 cm (5' 6 ) 04/22/2024 3:16 PM CDT Body Mass Index 23.4 04/22/2024 3:16 PM CDT documented in this encounter Patient Instructions * Patient Instructions* Valentina Hamm MD - 04/22/2024 3:38 PM CDT Baking soda baths, 1/4 cup of baking soda in enough lukewarm water to cover tissues. Or if you buy a sitz bath for toilet use two tablespoons of baking soda. Soak for about 5 min. Make sure you use the vegetable shortening right afterwards Use the vegetable shortening up inside the vaginal opening many times a day You can also use frozen peas in a Ziploc to the vulva and vaginal opening Use the hydrocortisone ointment twice daily to the vulvar and perianal tissues make sure you get iton the tissue below the clitoris. Put on over the vegetable shortening. documented in this encounter Progress Notes * Valentina Hamm MD - 04/22/2024 3:20 PM CDT [facility] Return Visit Date: 04/22/2024 Allergies: Allergies Allergen Reactions Decongest-Aid [Pseudoephedrine Base] Other Bladder spasm VS: BP 140/90 Temp 98.6 ??F (37 ??C) Ht 1.676 m (5' 6 ) Wt 65.8 kg (145 lb) Treatment(s): vegetable shortening Status: worse Subjective: Patient switched to tacrolimus as the triamcinolone ointment made her very red.Was alsostarted on compounded estradiol/testosterone ointment to the vestibule. Her next visit she looked much better. But then her was very sick and she got confused on ointments and went back to stopped the triamcinolone ointment 0.025%. Had to stop this as everything was getting sore and had severe burning. Since stopping every thing burning is better but still there and interfering with her life. Is using the vegetable shortening, sometimes it norris. Symptoms: (None=0; 10=Severe) Dyspareunia: Entry:n/a Burning after intercourse:n/a Vaginal discharge: 0 Vaginal burnin Vulvar itchin Clitoral pain: 0 Vulvar pain: 0 Urinary symptoms: 0 Correct product use: VCG followed on all aspects: good compliance Vulvar Examination: See Photo Documentation/annotated image-if photo taken, verbal consent obtained Whiteness stable Vestibule more red and dry Top of vaginal opening with inflammation Perianal area more white Cultures collected: None Biopsy: Impression/Plan: 1. Lichen sclerosus Continue the Vulvar Care Guidelines Will switch to hydrocortisone 2.5% ointment twice daily Needs to use the vegetable shortening inside the vaginal opening May do sitz baths with baking soda and use frozen peas in Ziploc 2. F/U in 2 months Time - The total face to face encounter time was 20 minutes. A significant portion (>50%) time was [...] ? referring and communicating with other health residential care officer via faxed communication ? documenting clinical information in the electronic health record ? independently interpreting results and communicating results to the patient/family/caregiver as needed ? care coordination as needed Total time 30 minutes New: 30 min (06223) 45 min (65796) 60 min (29168) Established 20 min (76618) 30 min (95652) 40 min (73655) documented in this encounter Plan of Treatment Upcoming Encounters Date Type Department Care Team (Late st Contact Info) Description 12/10/2024 10:50 AM CDT Office Visit [facility] - AIRCRAFT GENERAL REPAIR MECHANIC [address], [facility] [address] [place] [address] Valentina Hamm MD [address] [facility] [address] [place] [address] documented as of this encounter Visit Diagnoses Diagnosis Lichen sclerosus 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
--- OUTSIDE RECORDS SUMMARY | 2024-07-28 01:02 | XMS_ITS | Encounter Summary ---
Author Organization [facility] Address [address] [facility] [place] [address] Care Team Providers Care Pot Press Operator Name Role Phone Rohan Rothman MD Primary Care Provider [phone] Reason for Visit * Reason Comments Follow-up LS Encounter Details Date Type Department Care Team (Late st Contact Info) Description 11/20/2023 2:40 PM CDT Office Visit [facility] - OBSERVATION NURSE [address], [facility] [address] [place] [address] Valentina Hamm MD [address] [facility] [address] [place] [address] Lichen sclerosus et atrophicus of [...] Sign Reading Time Taken Comments Blood Pressure 128/84 11/20/2023 2:38 PM CDT Pulse - - Temperature 36.7 ??C (98.1 ??F) 11/20/2023 2:38 PM CD T Respiratory Rate - - Oxygen Saturation - - Inhaled Oxygen Concentration - - Weight 64.2 kg (141 lb 9.6 oz) 11/20/2023 2:38 P M CDT Height 167.7 cm (5' 6.02 ) 11/20/2023 2:38 PM CD T Body Mass Index 22.84 11/20/2023 2:38 PM CDT documented in this encounter Patient Instructions * Patient Instructions* Valentina Hamm MD - 11/20/2023 2:45 PM CDT Continue with the tacrolimus twice daily Decrease the compounded estradiol/testosterone ointment to nightly, then in a month if still doing well decrease to every other. If in a couple more months if you are still doing well may decrease totwice weekly. [facility] [address] [place] [address] documented in this encounter Progress Notes * Valentina Hamm MD - 11/20/2023 2:40 PM CDT [facility] Return Visit Date: 11/20/2023 Allergies: Allergies Allergen Reactions ??? Decongest-Aid [Pseudoephedrine Base] Other Bladder spasm VS: BP 128/84 Temp 98.1 ??F (36.7 ??C) Ht 1.677 m (5' 6.02 ) Wt 64.2 kg (141 lb 9.6 oz) Treatment(s): vegetable shortening, Tacrolimus, compounded e/t Status: same Subjective: Patient switched to tacrolimus as the triamcinolone ointment made her very red. Is using it twice daily with the vegetable shortening. Was also started on compounded estradiol/testosterone ointment and using it twice daily. Feels much better, no burning at all. Symptoms: (None=0; 10=Severe) Dyspareunia: Entry:n/a Burning after intercourse:n/a Vaginal discharge: 0 Vaginal burnin Vulvar itchin Clitoral pain: 0 Vulvar pain: 0 Urinary symptoms: 0 Correct product use: VCG followed on all aspects: good compliance Vulvar Examination: See Photo Documentation/annotated image-if photo taken, verbal consent obtained Much improved Vestibular glands now all non tender Cultures collected: None Biopsy: Impression/Plan: 1. Lichen sclerosus Continue the Vulvar Care Guidelines Will switch to tacrolimus twice daily 2. Vestibulodynia Compounded e/t ointment decrease to daily for a month, then may decrease to three times a week and if in a couple of months still doing well can try twice weekly vegetable shortening twice daily 3. 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
--- OUTSIDE RECORDS SUMMARY | 2024-07-28 01:03 | XMS_ITS | Encounter Summary ---
Author Organization [facility] Address [address] [place] [address] Care Team Providers Care Brass Molder Helper Name Role Phone Reanna Polanco RN [facility] Rohan Salvador MD Primary Care Provider Reason for Referral * Procedure (Routine) - Pending Review Specialty Diagnoses / Procedures Referred By Contac t Referred To Contact Diagnoses Blister of left great toe, initial encounter Procedures Incision and Drainage Abigail Martinez PA [address] [place] [address] Phone: tel: fax: [facility] Referral ID Status Reason Start Date Expiration Date V isits Requested Visits Authorized [id number] Pending Review 03/21/2024 04/20/2025 1 1 Reason for Visit * Reason Comments skin infection Pt c/o toe infection that was seen by pod. She had the nail removed, but now has blisters that are getting bigger. She is on ABX Encounter Details Date Type Department Care Team (Late st Contact Info) Description 03/21/2024 6:15 PM CDT Office Visit [facility] at [address] [address] Abigail Martinez PA [address] [place] [address] Toe infection (Primary Dx); Blister of left great toe, initial encounter Social History Tobacco Use Types Packs/Day Years Used Date Smoking Tobacco: Former Cigarettes 1 5 0 11/27/1978 - 09/28/1983 Smokeless Tobacco: Never Tobacco Cessation:Counseling Given: Not Answered Alcohol Use Standard Drinks/Week Comments No 0 (1 standard drink = 0.6 oz pur e alcohol) denies AUDIT-C Answer Date Recorded Q1: How often do you have a drink containing alcohol? Never 02/26/2024 Q2: How many drinks containi ng alcohol do you have on a typical day when you are drinking? Patient does not drink Q3: How often do you have si x or more drinks on one occasion? Never 02/26/2024 Hunger Vital Sign Answer Date Recorded Within the past 12 months, y ou worried that your food would run out before you got the money to buy more. Never true 05/28/20 Within the past 12 months, t he food you bought just didn't last and you didn't have money to get more. Never true 05/28/2023 Personal Safety Answer Date Recorded Getting School Help Needed Denies 07/11 Comments No Sex and Gender Information Value Date Recorded Sex Assigned at Not on file Legal Sex Female 2:03 AM BIOLOGY LABORATORY ASSISTANT Gender Identity Female 08/26/2020 6:26 AM BIOLOGY LABORATORY ASSISTANT Sexual Orientation Straight 08/26/2020 6: 26 AM BIOLOGY LABORATORY ASSISTANT documented as of this encounter Last Filed Vital Signs Vital Sign Reading Time Taken Comments Blood Pressure 132/78 03/21/2024 6:04 PM CDT Pulse 78 03/21/2024 6:04 PM CDT Temperature 37.1 ??C (98.8 ??F) 03/21/2024 6:04 PM CD T Respiratory Rate 18 03/21/2024 6:04 PM CDT Oxygen Saturation 99% 03/21/2024 6:04 PM CDT Inhaled Oxygen Concentration - - Weight 63.5 kg (140 lb) 03/21/2024 6:04 PM CDT Height 172.7 cm (5' 8 ) 03/21/2024 6:04 PM CDT Body Mass Index 21.29 03/21/2024 6:04 PM CDT documented in this encounter Patient Instructions * Patient Instructions* Abigail Martinez PA - 03/21/2024 6:15 PM CDT Continue epsom salt soaks Apply mupirocin Avoid friction Follow up with men's furnishings salesperson on Sunday documented in this encounter Ordered Prescriptions Prescription Sig Dispense Quantity Refills Last Filled Start Date End Date mupirocin (BACTROBAN) 2 % ointmentIndication s:Toe infection Apply topically 3 (three) times a day 22 g 03/21/2024 4 documented in this encounter Progress Notes * Abigail Martinez PA - 03/21/2024 6:15 PM CDTAssociated Order(s): Incision and Drainage Images from the original note were not included. Subjective/Objective Patient ID: Annette Santiago is a 63 y.o. female. Chief Complaint skin infection (Pt c/o toe infection that was seen by pod. She had the nail removed, but now has blisters that are getting bigger. She is on ABX) HPI Patient presents for evaluation of left great toe infection. States she was seen by her men's furnishings salesperson and had bilateral great toe nails removed on 03/19. She has been on Clindamycin x 48 hours. States the redness, swelling is worsening on left great toe and now has blisters forming. Denies pain. Has been soaking in epsom salt and warm water twice daily and applying neosporin. Review of Systems Skin: Left great toe redness, pain, blisters All other systems reviewed and are negative. Physical Exam Vitals reviewed. Constitutional: Appearance: Normal appearance. HENT: Head: Normocephalic and atraumatic. Cardiovascular: Rate and Rhythm: Normal rate. Pulmonary: Effort: Pulmonary effort is normal. Skin: General: Skin is warm and dry. Comments: Left great toe erythema, mild swelling to proximal/lateral nail folds with clear drainage Blister present to proximal nail fold, no tenderness Neurological: General: No focal deficit present. Mental Status: She is alert and oriented to person, place, and time. Psychiatric: Mood and Affect: Mood normal. Behavior: Behavior normal. Vitals: 03/21/24 1804 BP: 132/78 Pulse: 78 Resp: 18 Temp: 37.1 ??C (98.8 ??F) SpO2: 99% Weight: 63.5 kg (140 lb) Height: 172.7 cm (5' 8 ) Incision and Drainage Performed by: Abigail Martinez PA Authorized by: Abigail Martinez PA Consent Given by: Patient Verbal consent obtained: Yes Indications for incision and drainage: blister. Body area: Lower extremity Location details: Left big toe Anesthesia method: none. Needle gauge: 23 G. Incision type: Single straight Incision depth: Dermal Complexity: Simple Drainage: Serous Drainage amount: Moderate Wound treatment: Wound left open Packing material: None Patient tolerance: Patient tolerated the procedure well with no immediate complications Assessment/Plan Diagnoses and all orders for this visit: Toe infection (Primary) - mupirocin (BACTROBAN) 2 % ointment; Apply topically 3 (three) times a day - Aerobic and anaerobic culture and gram stain Abscess Toe, great, left; Future Blister of left great toe, initial encounter - Incision and Drainage Continue epsom salt soaks Apply mupirocin Continue clindamycin as prescribed by men's furnishings salesperson Avoid friction Follow up with men's furnishings salesperson on Sunday No results found for this or any previous visit (from the past 4 hour(s)). Disposition Treatment plan including expectations, follow up, and return precautions discussed with patient/parent, verbalizes understanding. Medication dosage, use, and potential adverse reactions discussed with patient/parent. Advised to follow up with PCP if symptoms do not resolve as expected or sooner if condition worsens. Signs/symptoms warranting ER evaluation reviewed. Patient and/or guardian was given an opportunity to ask questions, questions answered. ALYX Saleem 03/21/24 6:55 PM documented in this encounter Plan of Treatment Not on file documented as of this encounter Goals Goal Patient Goal Type Associated Problems Recent Progress Patient-Stated? Author CCM Chronic Pain Care Plan Chronic Care Management Improving( 10:05 AM BIOLOGY LABORATORY ASSISTANT) No Bessy Mancuso, RN Note: Problem: Chronic Pain Goals: 1. Minimize further functional decline 2. Maximize quality of life 3. Control pain Strategies: - Activity/exercise program recommendation - Conservative stepwise pain medicine strategy with multi-disciplinary approach - Recommend healthy lifestyle strategies and compensatory methods as needed documented as of this encounter Procedures Procedure Name Priority Date/Time Associated Diagnosis Comments INCISION AND DRAINAGE Routine 03/21/2024 6:15 PM CDT Blister of left great toe, initial encounter documented in this encounter Results * Incision and Drainage (03/21/2024 6:15 PM CDT) Narrative Abigail Martinez PA - 03/21/2024 6:15 PM CDT Abigail Martinez PA ? 03/21/2024 ??6:55 PM Incision and Drainage Performed by: Abigail Martinez PA Authorized by: Abigail Martinez PA ?? Consent Given by: ??Patient Verbal consent obtained: Yes ?? Indications for incision and drainage: blister. Body area: ??Lower extremity Location details: ??Left big toe Anesthesia method: none. Needle gauge: 23 G. Incision type: ??Single straight Incision depth: ??Dermal Complexity: ??Simple Drainage: ??Serous Drainage amount: ??Moderate Wound treatment: ??Wound left open Packing material: ??None Patient tolerance: ??Patient tolerated the procedure well with no immediate complications Abigail [facility]INIC/BEDSIDE ORDERABLES Final Result * Aerobic and anaerobic culture and gram stain Abscess Toe, great, left (03/21/2024 5:00 PM CDT) Direct Specimen Exam Stain: No polymorphonuclear leukocytes seen. No organisms seen. Comment:Testing performed by : [facility], [address] [facility]., [address] Report Final Report: No growth JT FRANCOIS Comment:Testing performed by : [facility], [address] [facility] [address] Abscess (Toe, great, left) 03/21/2024 5:00 PM CDT 03/22/2024 12:58 AM CDT Narrative JT FRANCOIS - 03/25/2024 10:58 AM CDT Specimen received on an ESwab. Testing performed by [facility] ([phone]) Specimens submitted from normally sterile body sites will have all bacterial morphotypes identified. Specimens that contain grossly mixed arcadio and/or are from body sites that are not normally sterile will be examined for Staphylococcus aureus, Pseudomonas aeruginosa, beta-hemolytic strep, vancomycin-resistant Enterococcus, Bacteroides, Parabacteroides, Clostridium perfringens and fungus. If any of these are isolated, the organism will be reported. Current interpretive data was last revised on 2019. Abigail [facility] MICROBIOLOGY - GENERAL O RDERABLES Final Result [id number] [address] Department [place] [address] documented in this encounter Visit Diagnoses Diagnosis Toe infection- Primary Blister of left great toe, initial encounter Toe infection documented in this encounter Historical Medications * This list may reflect changes made after this encounter. clindamycin (CLEOCIN) 300 mg capsuleIndication s:Toe infection Take 1 capsule (300 mg total) by mouth 3 (three) times a day 2024 added in this encounter Care Teams Brass Molder Helper Relationship Specialty Start Date End Date Rohan Rothman MD [address] [facility] [address] [place] [address] PCP - General 07/20/20 05/12/24 Reanna Polanco RN Registered Nurse 07/07/19 documented as of this encounter
--- OUTSIDE RECORDS SUMMARY | 2024-07-28 01:03 | XMS_ITS | Encounter Summary ---
Author Organization [facility] Healthcare Address [address] [place] [address] Care Team Providers Care Milk Wagon Driver Name Role Phone Reanna Polanco RN [facility] Rohan Salvador MD Primary Care Provider Reason for Visit * Reason Onset Date Comments Med Refill 11/08/2023 Encounter Details Date Type Department Care Team (Late st Contact Info) Description 11/08/2023 Telephone [facility] [place] [facility] [address] [facility] [address] [place], [place] [phone] Nancy Fernandez MD [address] [facility] [address] [facility] [phone] [place], [place] [id number] Med Refill Social History Tobacco Use Types Packs/Day Years Used Date Smoking Tobacco: Former Cigarettes 1 5 0 11/27/1978 - 09/28/1983 Smokeless Tobacco: Never Alcohol Use Standard Drinks/Week Comments No 0 (1 standard drink = 0.6 oz pur e alcohol) denies AUDIT-C Answer Date Recorded Q1: How often do you have a drink containing alcohol? Never 11/27/2023 Q2: How many drinks containi ng alcohol do you have on a typical day when you are drinking? Patient does not drink Q3: How often do you have si x or more drinks on one occasion? Never 11/27/2023 Hunger Vital Sign Answer Date Recorded Within [...] on file Legal Sex Female 2:03 AM PACKING MACHINE PILOT CAN ROUTER Gender Identity Female 08/26/2020 6:26 AM PACKING MACHINE PILOT CAN ROUTER Sexual Orientation Straight 08/26/2020 6: 26 AM PACKING MACHINE PILOT CAN ROUTER documented as of this encounter Miscellaneous Notes * Telephone Encounter - Young Yi RN - 11/08/2023 10:31 AM CDT Spoke with pharmacist at [facility]. Informed pharmacist since Carolina AKBAR does not have SHRADDHA number to prescribe medication under . SHRADDHA number provided and refill will be available for pt. documented in this encounter Plan of Treatment Not on file documented as of this encounter Goals Goal Patient Goal Type Associated Problems Recent Progress Patient-Stated? Author CCM Chronic Pain Care Plan Chronic Care Management Improving( 10:05 AM PACKING MACHINE PILOT CAN ROUTER) No Bessy Mancuso, RUBIO Note: Problem: Chronic Pain Goals: 1. Minimize further functional decline 2. Maximize quality of life 3. Control pain Strategies: - Activity/exercise program recommendation - Conservative stepwise pain medicine strategy with multi-disciplinary approach - Recommend healthy lifestyle strategies and compensatory methods as needed documented as of this encounter Visit Diagnoses Not on filedocumented in this encounter Care Teams Milk Wagon Driver Relationship Specialty Start Date End Date Rohan Rothman MD [address] [place] [address] PCP - General 07/20/20 05/12/24 Reanna Polanco RN Registered Nurse 07/07/19 documented as of this encounter
--- OUTSIDE RECORDS SUMMARY | 2024-07-28 01:03 | XMS_ITS | Encounter Summary ---
Author Organization [facility] Healthcare Address [address] [place] [address] Care Team Providers Care Tab Builder Name Role Phone Reanna Polanco RN [facility] Rohan Salvador MD Primary Care Provider Reason for Referral * Diagnostic Imaging (Routine) - Closed Specialty Diagnoses / Procedures Referred By Contac t Referred To Contact Diagnoses Lumbar radiculopathy Procedures Imaging Lumbar/Sacral Selective Nerve Root INJ (TFE) Bilateral ([id number]) Nancy Fernandez MD [address] [facility] [address] [facility] [phone] [place] [address] Phone: tel: fax: [facility] [address] [place] [address] Referral ID Status Reason Start Date Expiration Date Visits Re quested Visits Authorized [id number] Closed 02/15/2024 02/10/2025 1 1 Encounter Details Date Type Department Care Team (Late st Contact Info) Description 02/01/2024 Orders Only [facility] [place] [facility] [address] [facility] [address] [place], [place] [phone] Nancy Fernandez MD [address] [facility] [address] [facility] [phone] [place] [address] Lumbar radiculopathy (Primary Dx) Social History Tobacco Use Types [...] on file Legal Sex 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 Author [facility] Chronic Pain Care Plan Chronic Care Management Improving( 10:05 AM INDUSTRIAL SERVICER) No Bessy Mancuso, RN Note: Problem: Chronic Pain Goals: 1. Minimize further functional decline 2. Maximize quality of life 3. Control pain Strategies: - Activity/exercise program recommendation - Conservative stepwise pain medicine strategy with multi-disciplinary approach - Recommend healthy lifestyle strategies and compensatory methods as needed documented as of this encounter Results * Imaging Lumbar/Sacral Selective Nerve Root INJ (TFE) Bilateral (48887) (02/26/2024 1:35 PM CDT) Narrative [facility] - 02/26/2024 1:35 PM CDT The images from this study are not interpreted by Radiology. ??Please refer to the physician's procedure / OR operative note. 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
--- OUTSIDE RECORDS SUMMARY | 2024-07-28 01:03 | XMS_ITS | Encounter Summary ---
Author Organization [facility] Healthcare Address [address] [facility] [place] [address] Care Team Providers Care Official Court Reporter Name Role Phone Reanna Polanco RN [facility] Peyman Carvajal MD Primary Care Provider Encounter Details Date Type Department Care Team (Late st Contact Info) Description 07/01/2024 Orders Only [facility] [address] [facility] Advanced Medicine [address] [place], [place] [phone] Nancy Fernandez MD [address] [facility] [address] [facility] [phone] [place], [place] [phone] Social History Tobacco Use Types Packs/Day Years [...] on file Legal 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- back brace for scoliosis 1 each 07/01/2024 documented in this encounter Plan of Treatment Not on file documented as of this encounter Goals Goal Patient Goal Type Associated Problems Recent Progress Patient-Stated? Author CCM Chronic Pain Care Plan Chronic Care Management Improving( 10:05 AM BRAND STRATEGY MANAGER) No Bessy Mancuso, RUBIO Note: Problem: Chronic Pain Goals: 1. Minimize further functional decline 2. Maximize quality of life 3. Control pain Strategies: - Activity/exercise program recommendation - Conservative stepwise pain medicine strategy with multi-disciplinary approach - Recommend healthy lifestyle strategies and compensatory methods as needed documented as of this encounter Visit Diagnoses Not on filedocumented in this encounter Care Teams Official Court Reporter Relationship Specialty Start Date End Date Peyman Ortega MD [address] [facility] [address] [place] [address] PCP - General Family Practice 05/13/24 Reanna Polanco, RN Registered Nurse 07/07/19 documented as of this encounter
--- OUTSIDE RECORDS SUMMARY | 2024-07-28 01:03 | XMS_ITS | Encounter Summary ---
Author Organization [facility] Healthcare Address [address] [place] [address] Care Team Providers Care Cosmetician Name Role Phone Reanna Polanco RN [facility] Rohan Salvador MD Primary Care Provider Reason for Referral * Consultation (Routine) - Pending Review Specialty Diagnoses / Procedures Referred By Contac t Referred To Contact Physical Therapy Diagnoses Lumbar radiculopathy Scoliosis of lumbar spine, [place] [address] [place] [address] [phone] [place] [address] Phone: tel: fax: External Order Referral ID Status Reason Start Date Expiration Date Visits Requested Visits Authorized [id number] Pending Review Specialty Services Required 03/24/2024 04/23/2025 24 24 Question Answer PTRFR PT Evaluate and Treat Reason for Visit scoliosis, low back pain, lumbar radiculopathy Therapy options discussed with patient? Yes Location provided for therapy services is: Patient requested/Patient preferred Please select the performing region: External Order [[id number]] # of visits: 24 Encounter Details Date Type Department Care Team (Late st Contact Info) Description 03/24/2024 Orders Only [facility] [place] [facility] [address] [place] [address] Nancy Fernandez MD [address] [facility] [phone] [place] [address] Lumbar radiculopathy (Primary Dx); Scoliosis of lumbar spine, unspecified scoliosis type Social History Tobacco Use Types Packs/Day Years [...] on file 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 Author CCM Chronic Pain Care Plan Chronic Care Management Improving( 10:05 AM PANELBOARD OPERATOR) No Bessy Mancuso, RUBIO Note: Problem: Chronic Pain Goals: 1. Minimize further functional decline 2. Maximize quality of life 3. Control pain Strategies: - Activity/exercise program recommendation - Conservative stepwise pain medicine strategy with multi-disciplinary approach - Recommend healthy lifestyle strategies and compensatory methods as needed documented as of this encounter Visit Diagnoses Diagnosis Lumbar radiculopathy- Primary Thoracic or lumbosacral neuritis or radiculitis, unspecified Scoliosis of lumbar spine, unspecified scoliosis type documented in this encounter Care Teams Cosmetician Relationship Specialty Start Date End Date Rohan Rothman MD [address] [place] [address] PCP - General 07/20/20 05/12/24 Reanna Polanco RN Registered Nurse 07/07/19 documented as of this encounter
--- OUTSIDE RECORDS SUMMARY | 2024-07-28 01:03 | XMS_ITS | Encounter Summary ---
Author Organization [facility] Healthcare Address [address] [place] [address] Care Team Providers Care Director Of Global Talent Name Role Phone Reanna Polanco RN [facility] Rohan Salvador MD Primary Care Provider Encounter Details Date Type Department Care Team (Late st Contact Info) Description 11/01/[address] 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 They state there are conflicting directions on the prescription. Take 1 tablet by mouth 4 times a day. Takes 1-2 tabs QID. Please clarify and resend script. documented in this encounter Plan of Treatment Not on file documented as of this encounter Goals Goal Patient Goal Type Associated Problems Recent Progress Patient-Stated? Author CCM Chronic Pain Care Plan Chronic Care Management Improving( 10:05 AM TECHNICAL PRODUCER) No Bessy Mancuso, RUBIO Note: Problem: Chronic Pain Goals: 1. Minimize further functional decline 2. Maximize quality of life 3. Control pain Strategies: - Activity/exercise program recommendation - Conservative stepwise pain medicine strategy with multi-disciplinary approach - Recommend healthy lifestyle strategies and compensatory methods as needed documented as of this encounter Visit Diagnoses Not on filedocumented in this encounter Care Teams Director Of Global Talent Relationship Specialty Start Date End Date Rohan Rothman MD [address] [place] [address] PCP - General 07/20/20 05/12/24 Reanna Polanco RN Registered Nurse 07/07/19 documented as of this encounter
--- OUTSIDE RECORDS SUMMARY | 2024-07-28 01:03 | XMS_ITS | Encounter Summary ---
Author Organization [facility] Healthcare Address [address] [place] [address] Care Team Providers Care Housekeeping Aide Name Role Phone Reanna Polanco RN [facility] ErPeyman Quiroz MD Primary Care Provider Reason for Referral * Procedure (Routine) - Closed Specialty Diagnoses / Procedures Referred By Contac t Referred To Contact Diagnoses Bilateral low back pain without sciatica, unspecified chronicity Muscle spasm Procedures TRIGGER POINT INJECTION Tara Guardado MD [address] [place] [address] Phone: tel: fax: [address] [phone] Referral ID Status Reason Start Date Expiration Date Visits Re quested Visits Authorized [id number] Closed 05/26/2024 06/25/2025 1 1 * Diagnostic Imaging (Routine) - Authorized Specialty Diagnoses / Procedures Referred By Contac t Referred To Contact Diagnoses Osteoarthritis of 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 Bilateral low back pain without sciatica, unspecified chronicity Procedures X-ray lumbar spine complete with bending Tara Guardado MD [address] [place] [address] Phone: tel: fax: [facility] (All Locations) Referral ID Status Reason Start Date Expiration Date V isits Requested Visits Authorized [id number] Authorized 05/26/2024 06/25/2025 1 1 Reason for Visit * Reason Comments Back Pain Low back pain, Encounter Details Date Type Department Care Team (Latest Contact Info) Description 05/26/2024 11:50 AM CDT - 05/26/2024 11:59 PM CDT Hospital Encounter [facility] [address] [facility] [address] [place], [place] [id number] Nancy Fernandez MD [address] [facility] [address] [facility] [phone] [place], [place] [id number] Osteoarthritis of 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 (Primary Dx); Bilateral low back pain without sciatica, unspecified chronicity; Cervicalgia; Muscle spasm; Rotoscoliosis Discharge Disposition: Discharge to home or self care Social History Tobacco Use Types Packs/Day Years [...] on file Legal Sex Female 2:03 AM PRIMARY THERAPIST Gender Identity Female 08/26/2020 6:26 AM PRIMARY THERAPIST Sexual Orientation Straight 08/26/2020 6: 26 AM PRIMARY THERAPIST documented as of this encounter Last Filed Vital Signs Vital Sign Reading Time Taken Comments Blood Pressure 119/72 05/26/2024 12:34 PM CDT Pulse 82 05/26/2024 12:34 PM CDT Temperature 36.7 ??C (98.1 ??F) 05/26/2024 12:34 PM C DT Respiratory Rate 20 05/26/2024 12:34 PM CDT Oxygen Saturation 99% 05/26/2024 12:34 PM CDT Inhaled Oxygen Concentration - - Weight - - Height - - Body Mass Index - - documented in this encounter Discharge Instructions * Patient Instructions* Juana Sorto RN - 05/26/2024 12:45 PM CDT Referral to [facility]/senior systems developer [facility] ([facility]) DISCHARGE INSTRUCTIONS MEDICATIONS: [x] Continue your current home medications Start: [] Notify your pharmacy for refill(s) 7 days before you are out of your medication. [] Opioid (Narcotic) Agreement signed and patient received copy. [] Side Effects of Opioid Medications given to patient Resume blood thinner: NA Discontinue: PROCEDURE at today's visit: follow up visit DIET: [x] Resume normal diet [] See [facility] Post Discharge Procedure Information Sheet ACTIVITY: [x] Resume normal activity [] See [facility] Post Discharge Procedure Information Sheet REFERRALS: Referral to [facility]/senior systems developer [place] [phone] (Also [facility]) Physical Therapy [] [facility] Physical Therapy ([phone]) [] [facility] (Graded [employer]agery) [] [facility] ([phone]) Option 1 [] [facility] (Graded Motor Imagery) [] [facility] ([phone]) [] Other: Behavior Medicine [] Pain Psychologist, [facility] Pain Psychology Please call to schedule appointment [phone] or [phone] Diagnostic Test(s): Scoliosis and LSpine Xray May get Radiographs performed in Radiation/X-Ray 6th floor, [address]. [] Please call to schedule MRI or CT scan at [phone] [] Please call to schedule EMG at [phone] EDUCATION provided on the following: [] Spinal Cord Stimulator Education and DVD. Vendor: FOLLOW UP APPOINTMENTS: [] Return as needed [] Follow up appointment: We will contact you the next business day to obtain: [] An update on your condition [] Your Pain diary scores [x] Procedure at your next visit : Trigger point injections INSTRUCTIONS before your next procedure: [] See [facility] Pre-Procedure Information Sheet [] Do not eat or drink for six (6) hours before the time/date of the procedure. [] Inquire with your prescribing provider if ok to hold blood thinner for ( ) days before procedure. [] Blood work required 2 hours before procedure: [] Sales Consultant Residential Manager needed for next procedure [] Pre Procedure instructions will be sent through [employer] or by phone two working days prior to procedure. *Need help with Omnistream? Call [phone]. Patient provided information and repeated back with understanding. If you need to reach us: For any questions about your procedure, please call the Pain Management Center [phone] (M-F) (8am-4pm) If you need urgent attention after 5 pm and weekends: Call the [facility] Librarian Assistant at [phone] and ask for the Pain Service doctor double end production grinder. documented in this encounter Medications at Time of Discharge ALPHA LIPOIC ACID ORAL Take 550 mg by mouth every morning ascorbic acid (VITAMIN C) 1,000 mg tabletIndications :Vitamin C Deficiency Take 1 tablet (1,000 mg total) by mouth every morning baclofen (LIORESAL) 20 mg tabletIndications :Muscle Spasticity of Spinal Origin Take 1 tablet (20 mg total) by mouth 4 (four) times a day Takes 1-2 tabs QID 360 tablet 03/20/2024 calcium carbonate (OS-LILIANE) 1,500 mg (600 mg elemental) tablet Take 1,200 mg by mouth 3 (three) times a day with meals CALCIUM CARBONATE-VITAMIN D3 ORAL Take 1 tablet by mouth 2 (two) times a day Calcium Carbonate 1,200 mg with Vitamin D 1,000 international units take 2 daily. cannabidiol, CBD, (EPIDIOLEX) 100 mg/mL solution Take 5 mg/kg by mouth 2 (two) times a day as needed CBD DULoxetine DR (CYMBALTA) 60 mg capsuleIndication s:Anxiety with Depression Take 1 capsule (60 mg total) by mouth 2 (two) times a day estradiol-norethi ndrone (ACTIVELLA) 1-0.5 mg per tablet Take 1 tablet by mouth nightly 11/14/2017 famotidine (PEPCID) 10 mg tablet Take 1 tablet (10 mg total) by mouth daily 30 tablet 3 09/18/2023 hydrocortisone 2.5 % ointment Apply 1 Application topically 2 (two) times a day 04/22/2024 levomefolate-alga l oil 15-90.314 mg capsule Take 1 capsule by mouth daily lurasidone (LATUDA) 60 mg tablet Take 1 tablet (60 mg total) by mouth daily 04/30/2024 magnesium gluconate 200 mg tabletIndications :hypomagnesemia Take 2.5 tablets (500 mg total) by mouth 2 (two) times a day metoprolol XL (TOPROL-XL) 25 mg extended release tablet Take 1 tablet (25 mg total) by mouth daily montelukast (SINGULAIR) 10 mg tabletIndications :Seasonal Allergic Rhinitis Take 1 tablet (10 mg total) by mouth nightly 04/13/2017 sulfamethoxazole- trimethoprim (BACTRIM DS) 800-160 mg per tablet 05/08/2024 zolpidem (AMBIEN) 10 mg tabletIndications :Sleep-Onset Insomnia Take 1 tablet (10 mg total) by mouth nightly clindamycin (CLEOCIN) 300 mg capsuleIndication s:Toe infection Take 1 capsule (300 mg total) by mouth 3 (three) times a day 06/02/20 24 HYDROcodone-aceta minophen (NORCO) 7.5-325 mg per tabletIndications :Pain Take 1 tablet by mouth every 6 (six) hours as needed for pain 120 tablet 05/13/2024 06/19/20 24 meloxicam (MOBIC) 15 mg tablet Take 1 tablet (15 mg total) by mouth daily 30 tablet 1 04/11/2024 06/02/20 24 methocarbamoL (ROBAXIN) 500 mg tablet Take 2 tablets (1,000 mg total) by mouth 4 (four) times a day as needed for muscle spasms 720 tablet 04/11/2024 06/13/20 24 mupirocin (BACTROBAN) 2 % ointmentIndicatio ns:Toe infection Apply topically 3 (three) times a day 22 g 03/21/2024 06/02/20 24 NON FORMULARY, FOR CLINIC ADMINISTERED MEDICATIONS ONLY, (not in database) 1 each once Estrogen / testosterone cream - compounded 06/02/20 24 triamcinolone (KENALOG) 0.025 % ointment APPLY EXTERNALLY TO THE AFFECTED AREA OF VULVAR TISSUE NIGHTLY 10/04/2023 06/02/20 24 documented as of this encounter Discharge Disposition Disposition Code Departure Means Destination Discharge to home or self care documented in this encounter Progress Notes * Nancy Fernandez MD - 05/26/2024 12:45 PM CDT Patient Name: Katrina Camarena : 1960 Today's Date: 05/26/2024 PCP: Peyman Ortega MD Referring: Notinfile Unknown Chief Complaint Patient presents with Back Pain Low back pain, Pain Management History KATRINA CAMARENA is a patient initially seen in the Pain Center in July [address] Iglesias for her ongoing muscular pain in the neck, shoulder, upper back and low back. Past. current meds: - nortriptyline/amitriptyline- urinary retention. - Lyrica did not work - Gabapentin caused side effects - T#3 - tramadol - cyclobenzaprine - too drowsy - Lidoderm - meloxicam - Savella - excedrine migraine ([id number]) - baclofen - methocarbamol - duloxetine - hydrocodone/APAP - cbd cream 06/10/19: Has been taking meloxicam for a long time. Has started experiencing some stomach discomfort, which she relates to the meloxicam. Her PCP started her on prilosec and told her to take a monthoff of the meloxicam. She did this and stomach was better but fibromyalgia/ generalized body pain was worse. After a month she restarted the meloxicam and the stomach discomfort returned. Physical therapy: she has done a lot of PT in the past with benefit. She enjoys being active and tries to maintain a regular exercise routine. - Physical therapy notes Fall 2018: still has daily LBP and pain between the shoulder blades, but it is more manageable. She has gone to 9 sessions with the plan to return to physical therapy afterher trip. - PHYSICAL THERAPY fall 2019 - helped a lot, continues with HEP- manual therapy, TENS, stretching, strengthening, heat - physical therapy referral 04/2023 Interventions: - L4, 5, S1 RFA 2013 - sig benefit for many years - L4, L4, S1 RFA Jul 2018- sig benefit for 9 mo - SI injection, bilateral 03/10/19- helped with pain in buttock and groin - 06/10/19: b/l SIJ - 06/30/19: Right L3-S1 RFA: no pain nrelief - 07/07/19: Left L3-S1 RFA: no significant relief. - 09/22/19: bilateral SI injection - some benefit -02/06/2022 TPI- no benefit Imaging: Lumbar XR 11/18/20 - Moderate rotatory levoscoliosis of the thoracolumbar spine centered at L1-2 with flat back deformity. - Mild left lateral listhesis of L3 on L4. - Lumbar spinal motion is limited. - Severe degenerative disc disease is noted from L3 to L5. - Moderate to severe lumbar facet arthropathy. IMPRESSION: 1. Moderate, progressive rotatory thoracolumbar levoscoliosis and left lateral listhesis of L3 on L4 2. Progressive, severe degenerative disc disease from L3 to L5 Lumbar MRI 11/07/20 - Levocurvature of lumbar spine with mild lateral translation of L3 over L4 and L4 over L5. - Kyphosis of lumbar spine centered around L3-L4 level, with mild anterolisthesis of L3 over L4. - Endplate degeneration along L3-L4 and L4-L5 levels. - Disc desiccation throughout the lumbar spine, with marked disc height loss at L3-L4 and L4-L5 levels. - L1-L2: Left foraminal and extraforaminal disc protrusion. Mild left neuroforaminal stenosis. - L2-L3: Disc bulge, asymmetric towards the left. Mild bilateral facet arthropathy. - L3-L4: Uncovering of intervertebral disc with a small disc osteophyte complex. Moderate bilateralfacet arthropathy. Mild to moderate right neuroforaminal stenosis. Mild spinal canal stenosis - L4-L5: Disc osteophyte complex is present. Moderate bilateral facet arthropathy. Mild right and moderate to severe left neuroforaminal stenosis. Mild spinal canal stenosis - L5-S1: Mild bilateral facet arthropathy. IMPRESSION: Advanced degenerative disc disease at L3-L4 and L4-L5 levels with lateral listhesis at these levels, and anterolisthesis at L3-L4 level. INTERVAL HISTORY (05/26/2024): Katrina Camarena returns to clinic today. She presents for ongoing management of low back pain. Patient thinks that pain is muscular in nature. Was looking at massage therapists but is having trouble finding a massage therapists that would be qualified. from kidney disease and dementia in February 2024 and that put a toll on her. Shedid not do much lifting but patient was bending over for bandage changes that caused worsening in curvature of her back and increase in pain. ENT Dr. Mijares reccommended massage on neck and shoulders. Has appointment for this on Jul 18 2024. Patient states that PT thinks that curvature of the back has been getting worse gradually and recommends intermittent bracing. Posture shirt 2.0 is also considered. Patient is doing HEP daily. Pain is at Low back pain. Patient can also get a sense of cramping in her back. Radiation: None Numbness: None Weakness: None Pain Assessment Pain Score: 7 Patient's Stated Pain Goal: 3 Pain Location: Back (Lumbar) Pain Radiating Towards: localized in back Pain Descriptors: Aching, Shooting, Cramping Pain Frequency: Constant/continuous Pain Assessment Pain Score: 7 Patient's Stated Pain Goal: 3 Pain Location: Back (Lumbar) Pain Radiating Towards: localized in back Pain Descriptors: Aching, Shooting, Cramping Pain Frequency: Constant/continuous Last MRI 11/27/23 LSpine: IMPRESSION: Levoscoliosis of the lumbar spine, centered at L2-L3. Moderate degenerative changes of the lumbar spine as described in detail above. Unchanged left perineural cyst at L1-L2. Modified Oswestry Modified Oswestry Low Back Pain Score: 32 Percentage: 64 Interpretation Modified Oswestry: 0-20% minimal disability; 21-40% moderate disability; 41-60% severe disability; 61-80% ; 81-100% bed-bound. Last visit 02/26/24 we did the following: Intervention: bilateral L4-5 TFESI. 0%relief Medication adjustments: continue current meds for now Referrals: none Current Pain meds: Pain Medications baclofen (LIORESAL) 20 mg tablet Take 1 tablet (20 mg total) by mouth 4 (four) times a day Takes 1-[address] (CYMBALTA) 60 mg capsule Take 1 capsule (60 mg total) by mouth 2 (two) times a day HYDROcodone-acetaminophen (NORCO) 7.5-325 mg per tablet Take 1 tablet by mouth every 6 (six) hours as needed for pain lurasidone (LATUDA) 60 mg tablet Take 1 tablet (60 mg total) by mouth daily meloxicam (MOBIC) 15 mg tablet Take 1 tablet (15 mg total) by mouth daily methocarbamoL (ROBAXIN) 500 mg tablet Take 2 tablets (1,000 mg total) by mouth 4 (four) times a dayas needed for muscle spasms Physical Exam Vitals: 05/26/24 1234 BP: 119/72 Pulse: 82 Resp: 20 Temp: 98.1 ??F (36.7 ??C) SpO2: 99% There is no height or weight on file to calculate BMI. Physical Exam Constitutional: Appearance: Normal appearance. She is normal weight. HENT: Right Ear: External ear normal. Left Ear: External ear normal. Nose: Nose normal. Eyes: Extraocular Movements: Extraocular movements intact. Pupils: Pupils are equal, round, and reactive to light. Cardiovascular: Rate and Rhythm: Normal rate. Pulses: Normal pulses. Pulmonary: Effort: Pulmonary effort is normal. Abdominal: General: Abdomen is flat. Musculoskeletal: General: Tenderness and deformity present. Normal range of motion. Cervical back: Normal range of motion. Skin: General: Skin is warm and dry. Neurological: General: No focal deficit present. Mental Status: She is alert and oriented to person, place, and time. Psychiatric: Mood and Affect: Mood normal. Behavior: Behavior normal. Thought Content: Thought content normal. Judgment: Judgment normal. Assessment The above note documents my personal evaluation of this patient. In addition, I have reviewed and confirmed with the patient and nurse the supportive information documented in today's scanned PatientHealth Questionnaire and Office Note. Encounter Diagnoses Name Primary? Osteoarthritis of 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 Yes Bilateral low back pain without sciatica, unspecified chronicity Cervicalgia Muscle spasm Rotoscoliosis Plan Interventions: Can consider TPI in low back next visit Medications: Robaxin 1000 TID and [id number] QID, Hopkins 7.5 3/day PRN The patient shows no signs of aberrant drug use. We discussed appropriate use of opioid medicationsand advised the patient not to take other sedating medications (e.g. Benzodiazepines) with the opioids at the same time. We also advised not to drive under the influence of opioid medications. We advised patient store opioids in a locked container. We educated the patient on the risks of prolonged opioid use (e.g. side effects, tolerance, dependency, addiction) and recommend that she try to minimize her dose to the lowest dose necessary. Chronic Opioid Therapy 05/26/2024 Current analgesics: hydrocodone/APAP 7.5/325 qid Daily dose (MME): 30mg MME Benzodiazepines: no Meds locked up: She keeps in an unmarked box in the closet and is sure to put them out of sight if anyone is coming into her home (family members, cleaning crew, etc) Plan: continue current meds for now. Urine drug screen [facility] - 02/14/24- consistent 3. Imaging: Due to the patient's symptoms, we will obtain imaging of Lumbar spine. 4. Referral: We will refer the patient to senior systems developer for Bracing. /Gang Head Saw Operator clinic. 5. Follow-up: In 3 months for re-evaluation of the above regimen. Tara Guardado MD Fellow, Anesthesia/Pain [facility] [place] documented in this encounter Nursing Notes * Juana Sorto, RN - 05/26/2024 12:45 PM CDT Level 3 Escorted patient to exam room. Obtained vital signs. Reviewed patient's allergies and current medications. Obtained and verified patient's detailed medical/surgical history. Confirmed the reason for visit with the patient. Obtained the following screening assessments: [x] Modified Oswestry Low Back Pain Questionnaire [] PMC Intake Questionnaire [x] PMC Follow up Questionnaire [] Fall Risk Assessment (Miriam Jacques Steadi) [] Depression/Anxiety Assessment (GAD7, PHQ-9, [place] Suicide, Villegas Depression) [] Disability Scale [] CAGE [] SOAPP-R Additional tasks included: [] Random medication adherence check (pill verification by two nurses) [] Work/school note written [] Wound/skin check/dressing change [] Pain assessment for more than one site [] Coordination of a specialty referral or imaging study (stat MRI for same day) [] Anticoagulant therapy coordination on day of visit [] Monitoring or assistance in patient physical exam or assessment [x] Discharge instructions Vital Signs Temp: 98.1 ??F (36.7 ??C) Pulse: 82 Resp: 20 BP: 119/72 SpO2: 99 % Post-visit transport confirmed with the patient. Total time spent for patient care, education, and care coordination was approximately 21-30 minutes. documented in this encounter Plan of Treatment Scheduled Orders Name Type Priority Associated Diagnoses Orde r Schedule X-ray lumbar spine complete with bending Imaging Schedule Routine, Read Routine (OP Routine) Osteoarthritis of 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 Bilateral low back pain without sciatica, unspecified chronicity Expected: 05/26/2024, Expires: 05/26/2025 TRIGGER POINT INJECTION Procedures Routine Bilateral low back pain without sciatica, unspecified chronicity Muscle spasm 1 Occurrences starting 05/26/2024 until 05/26/2025 documented as of this encounter Goals Goal Patient Goal Type Associated Problems Recent Progress Patient-Stated? Author CCM Chronic Pain Care Plan Chronic Care Management Improving( 10:05 AM PRIMARY THERAPIST) No Bessy Mancuso, RN Note: Problem: Chronic Pain Goals: 1. Minimize further functional decline 2. Maximize quality of life 3. Control pain Strategies: - Activity/exercise program recommendation - Conservative stepwise pain medicine strategy with multi-disciplinary approach - Recommend healthy lifestyle strategies and compensatory methods as needed documented as of this encounter Visit Diagnoses Diagnosis Osteoarthritis of 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- Primary Bilateral low back pain without sciatica, unspecified chronicity Cervicalgia Muscle spasm Spasm of muscle Rotoscoliosis documented in this encounter Discontinued Medications Medication Sig Discontinue Reason Start Date End Da te lurasidone (LATUDA) 20 mg tablet 1 tablet (20 mg total) Therapy completed 02/02/2023 05/26/2024 lurasidone (LATUDA) 40 mg tablet Take 1 tablet (40 mg total) by mouth daily 60 mg QD Therapy completed 10/24/2023 05/26/2024 documented as of this encounter Historical Medications * This list may reflect changes made after this encounter. lurasidone (LATUDA) 60 mg tablet Take 1 tablet (60 mg total) by mouth daily 04/30/2024 sulfamethoxazole -trimethoprim (BACTRIM DS) 800-160 mg per tablet 05/08/2024 hydrocortisone 2.5 % ointment Apply 1 Application topically 2 (two) times a day 04/22/2024 added in this encounter Care Teams Housekeeping Aide Relationship Specialty Start Date End Date Peyman Ortega MD [address] [facility] [place] [address] [place] [address] PCP - General Family Practice 05/13/24 Reanna Polanco, RN Registered Nurse 07/07/19 documented as of this encounter
--- OUTSIDE RECORDS SUMMARY | 2024-07-28 01:03 | XMS_ITS | Encounter Summary ---
Author Organization [facility] Address [address] [place] [address] Phone Care Team Providers Care Store Warehouse Associate Name Role Phone Reanna Polanco RN [facility] Rohan Salvador MD Primary Care Provider Reason for Visit * Reason Onset Date Comments Appointment 02/27/2024 Encounter Details Date Type Department Care Team (Late st Contact Info) Description 02/27/2024 Telephone [place] [facility] ([facility] - [facility] ENT [address] [facility] Advanced [facility] [address]th [place] [address] [place] [address] Viry Damon MS Appointment Social History Tobacco Use Types Packs/Day Years [...] on file 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 Author CCM Chronic Pain Care Plan Chronic Care Management Improving( 10:05 AM JET DYEING MACHINE TENDER) No Bessy Mancuso, RUBIO Note: Problem: Chronic Pain Goals: 1. Minimize further functional decline 2. Maximize quality of life 3. Control pain Strategies: - Activity/exercise program recommendation - Conservative stepwise pain medicine strategy with multi-disciplinary approach - Recommend healthy lifestyle strategies and compensatory methods as needed documented as of this encounter Visit Diagnoses Not on filedocumented in this encounter Care Teams Store Warehouse Associate Relationship Specialty Start Date End Date Rohan Rothman MD [address] [facility] [address] [place] [address] PCP - General 07/20/20 05/12/24 Reanna Polanco, RN Registered Nurse 07/07/19 documented as of this encounter
--- OUTSIDE RECORDS SUMMARY | 2024-07-28 01:03 | XMS_ITS | Encounter Summary ---
Author Organization [facility] Healthcare Address [address] [facility] [place] [address] Care Team Providers Care Iron Carrier Name Role Phone Reanna Polanco RN [facility] Rohan Salvador MD Primary Care Provider Encounter Details Date Type Department Care Team (Late st Contact Info) Description 02/22/2024 Telephone [facility] [address] [facility] [address] [place] [address] Nancy Fernandez MD [address] [facility] [address] [facility] [phone] [place], [place] [id number] Social History Tobacco Use Types Packs/Day Years [...] on file Legal Sex Female 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 Author CCM Chronic Pain Care Plan Chronic Care Management Improving( 10:05 AM ELECTRIC LINEMAN) No Bessy Mancuso, RUBIO Note: Problem: Chronic Pain Goals: 1. Minimize further functional decline 2. Maximize quality of life 3. Control pain Strategies: - Activity/exercise program recommendation - Conservative stepwise pain medicine strategy with multi-disciplinary approach - Recommend healthy lifestyle strategies and compensatory methods as needed documented as of this encounter Visit Diagnoses Not on filedocumented in this encounter Care Teams Iron Carrier Relationship Specialty Start Date End Date Rohan Rothman MD [address] [facility] [address] [place] [address] PCP - General 07/20/20 05/12/24 Reanna Polanco, RN Registered Nurse 07/07/19 documented as of this encounter
--- OUTSIDE RECORDS SUMMARY | 2024-07-28 01:03 | XMS_ITS | Encounter Summary ---
Author Organization [facility] Address [address] [place] [address] Phone Care Team Providers Care Multimedia Instructional Designer Name Role Phone Reanna Polanco RN [facility] Peyman Carvajal MD Primary Care Provider Reason for Visit * Reason Comments PT Initial Eval * Consultation (Routine) - Authorized Specialty Diagnoses / Procedures Referred By Hadley cloud Referred To Contact Physical Therapy Diagnoses Cervicalgia Moncho Rendon MD [address] [facility] [address] [place] [address] Phone: tel: fax: [facility] (All Locations) Referral ID Status Reason Start Date Expiration Date Visits Requested Visits Authorized [id number] Authorized Evaluate and Treat 05/21/2024 05/21/2025 24 5 Encounter Details Date Type Department Care Team (Late st Contact Info) Description 07/18/2024 10:00 AM TERMITE EXTERMINATOR Therapy [facility] Physical Therapy [address] [place] [address] Lyle Watson DPT [address] [facility] [address] [place] [address] Cervicalgia (Primary Dx) Social History Tobacco Use Types [...] on file Legal Sex Female 2:03 AM TERMITE EXTERMINATOR Gender Identity Female 08/26/2020 6:26 AM TERMITE EXTERMINATOR Sexual Orientation Straight 08/26/2020 6: 26 AM TERMITE EXTERMINATOR documented as of this encounter Progress Notes * Lyle Watson, ALVAREZ - 07/18/2024 10:00 AM CST Physical Therapy Evaluation Annette Santiago 1960 64 y.o. female Moncho Rendon MD [address] [facility] [address] [place] [address] ICD-10-CM 1. Cervicalgia M54.2 Ambulatory referral order to Physical Therapy - Date of Service: 07/18/2024 Subjective History: Involved Side: right < left Dominant Side: right History of current complaint: Pt reports that she had a cervical spine fusion 2 years ago and was having difficulty with swollowing and voice changes. However, this has since improved she has now been having difficulty with aspiration when she talks while eating. Has tightness in her posterior neckwhich is the primary issue. Reports that she with aspirate about once a week. She notices this happe ns when her niece comes over for dinner and she is talking more while eating but will occasionally happen when she is alone. Notices a lot of clicking and popping in her neck but this doesn't cause pain and doesn't occur with any particularl movement. Diagnostic testing: XR 11/21/23: 1. Unchanged C3-C6 anterior instrumented spinal fusion, angular excursion of the fused segments, and fracture of a C6 screw. 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 Sports/Leisure/Fitness activities: walking, would like to swim but unable due to neck Goal(s): decrease pain, improve neck mobility Objective Standing Alignment Cervical spine: flat Thoracic spine: flat Scapula Right anterior tilt, internal rotation, abducted, and depressed Left anterior tilt, internal rotation, and depressed Humeral Head Right normal Left normal Humerus Right normal Left normal Palpation: tenderness at C7, bilateral cervical extensors, and upper traps Movement Testing Seated Shoulder Flexion Movement Pattern Spinal Movement Symptoms Symptoms Modifable with Correction? Right insufficient elevation, insufficient upward rotation, insufficient scapular posterior tilt, and insufficient scapular external rotation sway, cervical rotation increase Yes Left insufficient elevation, insufficient upward rotation, insufficient scapular posterior tilt, and insufficient scapular external rotation cervical rotation, sway increase Yes Cervical AROM Range Symptoms Movement Pattern Symptoms Modifiable with Correction? Elevated shoulder girdle Extension 45, 56 arms supported no change excessive posterior translation N/A symptoms decrease andROM increases Flexion 35, 35 arms supported no change excessive anterior translation N/A symptoms ISQ and ROM ISQ Rotation Right 63, 70 arms supported no change extension/sidebend N/A symptoms decrease and ROM increases Rotation Left 57, 65 arms supported no change extension/sidebend N/A symptoms decrease and ROM increases Supine Cervical Flexion Movement Pattern Symptoms Symptoms Modifable with Correction? excessive cervical anterior translation no change N/A Preferred Sitting Posture: slumped Length Tests Suboccipitals: stiff Cervical Extensors: stiff Right Left Pec Minor stiff stiff MMT Right Left Middle trapezius 3 3 Lower trapezius 3 3 Treatment Provided: cervical extension with rotation Next visit: STM to suboccipitals and supper traps, scap taping, middle trap rows Done today? HEP Therapeutic Exercise Parameters Comments X X Back to wall standing posture 5-10 reps, 2x/day Low back flat, feet a foot from the wall, soft knees, hands in front of trunk, scap correction up and back, head stacked over shoulders, small chincurl down X X seated shoulder flexion 10 reps, 2x/day Cues for starting scap alignment, cues for scap elevation X X Seated or supine capital flexion with arms supported 5-10 reps, 3 sec hold, 3-4x/day Cues for starting alignment, gentle pain free ROM X X Seated cervical rotation with arms supported 10 reps each direction, 2x/day Cues for starting alignment, spin on axis/maintain chin level, gentle pain free ROM Therapeutic Activity x Patient Education -Anatomy & kinesiology education -Tissue susceptible to movement and movement pattern correction -discussed potential referral to speech if aspiration continues -Standing posture -Sitting posture - arm support, use of back rest -sleeping posture:neutral cervical alingmnt, pillow under axilla in SL, pillow under trunk in SL todecrease compression of shoulder -activity pacing - standing up from the chair 1x/hour - mechanics with cervical motion -mechanics with reaching overhead -desk ergonomics -bring objects up to keep neck in neutral alignment with use of phone/reading -Home Exercise Program Patient was educated about the following activities: direction susceptible to movement and movement pattern correction, tissue stress reduction, body mechanics, desk ergonomics, heat, posture, sleep positioning, stretching, brace wearing, and arm support Assessment/Plan: Chief Complaint PT Initial Eval Patient is a 64 y.o.-year-old female with primary c/o bilateral posterior neck and upper trap tightness. Demonstrates a movement system diagnosis of cervical extension with rotation. Contributing factors include short/stiff pec minor, suboccipitals, and cervical extensors, decreased strength and activation of traps and intrinsic cervical flexors, and prolonged positioning and repetitive movement patterns into cervical extension and rotation. Will benefit from PT for patient education, strengthening, stretching, ROM, HEP, taping PRN, modalities PRN, and functional mobility training. Good prognosis. Patient consented to treatment and plan. Short Term Goals: (6 weeks) Goal Description New Ongoing Partially Met Met Deferred The patient will decrease c/o pain with functional activities to 5-6/10 at worst. X The patient will demonstrate improved static posture in sitting and standing. X The patient will demonstrate improved movement pattern with cervical flexion, extension and rotation, shoulder flexion. X The patient will be independent with strategies designed to help manage symptoms with the followingactivities: neck rotation, looking up, reaching overhead X The patient will demonstrate HEP with minimal guidance. X Nailhead Puncher Goals: (12 weeks) Goal Description New Ongoing Partially Met Met Deferred The patient will decrease c/o pain with functional activities to 3-4/10 at worst. X The patient will perform the following functional activities without pain: looking over shoulder, looking up, reaching overhead. X The patient will be independent with strategies designed to help manage symptoms with the followingactivities: rec activities as desired. X The patient be independent with final HEP needed for sustained correction of movement impairments. X Frequency/Duration: 1x/week for 6-8 weeks Time-Based Code Calculator Minutes for Ther Ex/Ther Procedure (72034):: 15 minutes Minutes for Ther Act (78912):: 25 minutes Timed Code Treatment Minutes:: 40 minutes Total Treatment Time: 60 Visit Start Time: 1000 Visit Stop Time: 1100 Lyle Watson DPT ITE EXTERMINATOR documented in this encounter Plan of Treatment Not on file documented as of this encounter Goals Goal Patient Goal Type Associated Problems Recent Progress Patient-Stated? Author CCM Chronic Pain Care Plan Chronic Care Management Improving( 10:05 AM TERMITE EXTERMINATOR) No Bessy Mancuso RN Note: Problem: Chronic Pain Goals: 1. Minimize further functional decline 2. Maximize quality of life 3. Control pain Strategies: - Activity/exercise program recommendation - Conservative stepwise pain medicine strategy with multi-disciplinary approach - Recommend healthy lifestyle strategies and compensatory methods as needed documented as of this encounter Visit Diagnoses Diagnosis Cervicalgia- Primary documented in this encounter Orders Outpatient Referral Count Last Ordered Date st Ordered Date AMB REFERRAL ORDER TO PHYSICAL THERAPY 1 documented in this encounter Care Teams Multimedia Instructional Designer Relationship Specialty Start Date End Date Peyman Ortega MD [address] [place] [address] PCP - General Family Practice 05/13/24 Reanna Polanco, RN Registered Nurse 07/07/19 documented as of this encounter
--- OUTSIDE RECORDS SUMMARY | 2024-07-28 01:03 | XMS_ITS | Encounter Summary ---
Author Organization [facility] Healthcare Address [address] [place] [address] Care Team Providers Care Workers Compensation Claims Specialist Name Role Phone Reanna Polanco RN [facility] Rohan Salvador MD Primary Care Provider Reason for Referral * Diagnostic Imaging (Routine) - Closed Specialty Diagnoses / Procedures Referred By Contac t Referred To Contact Diagnoses Lumbar radiculopathy Procedures Imaging Lumbar/Sacral Selective Nerve Root INJ (TFE) Bilateral (70264) Nancy Fernandez MD [phone] [place] [address] Phone: tel: fax: [address] [address] Referral ID Status Reason Start Date Expiration Date Visits Re quested Visits Authorized [id number] Closed 02/15/2024 02/10/2025 1 1 Reason for Visit * Reason Comments Back Pain B/l lower back radia ting to b/l legs to ankles * Diagnostic Imaging (Routine) - Closed Specialty Diagnoses / Procedures Referred By Contac t Referred To Contact Diagnoses Lumbar radiculopathy Procedures Imaging Lumbar/Sacral Selective Nerve Root INJ (TFE) Bilateral (62655) Nancy Fernandez MD [address] [facility] [address] [facility] [phone] [place] [address] Phone: tel: fax: [facility] [address] [place] [address] Referral ID Status Reason Start Date Expiration Date Visits Re quested Visits Authorized [id number] Closed 02/15/2024 02/10/2025 1 1 Encounter Details Date Type Department Care Team (Latest Contact Info) Description 02/26/2024 11:58 AM CDT - 02/26/2024 11:59 PM CDT Hospital Encounter [facility] [address] [facility] [address] [place] [address] Nancy Fernandez MD [address] [facility] [address] [facility] [phone] [place] [address] Lumbar radiculopathy (Primary Dx); Fibromyalgia; Chronic use of opiate drug for therapeutic purpose; Other secondary scoliosis, lumbar region Discharge Disposition: Discharge to home or self [...] on file 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 Gender Identity Female 08/26/2020 6:26 AM LAY OUT MACHINE OPERATOR Sexual Orientation Straight 08/26/2020 6: 26 AM LAY OUT MACHINE OPERATOR documented as of this encounter Last Filed Vital Signs Vital Sign Reading Time Taken Comments Blood Pressure 105/90 02/26/2024 1:37 PM CDT Pulse 77 02/26/2024 1:37 PM CDT Temperature 36.2 ??C (97.2 ??F) 02/26/2024 12:21 PM C DT Respiratory Rate 16 02/26/2024 1:37 PM CDT Oxygen Saturation 97% 02/26/2024 1:37 PM CDT Inhaled Oxygen Concentration - - Weight 63.5 kg (140 lb) 02/26/2024 12:21 PM CDT Height 172.7 cm (5' 8 ) 02/26/2024 12:21 PM CDT Body Mass Index 21.29 02/26/2024 12:21 PM CDT documented in this encounter Discharge Instructions * Discharge Instructions* Shilpi Mcmahon, RUBIO - 02/26/2024 12:09 PM CDT [facility] PATIENT EDUCATION POST-PROCEDURE INFORMATION SHEET After this procedure you may have: Dizziness Numbness in extremities Weakness in extremities These symptoms generally wear off in 6-8 hours, but are almost always gone by the next morning. A small amount of bruising, bleeding, swelling at the injection site(s). It is recommended you apply ice packs for 20 minutes every 1-2 hours for the first 24 hours. After 24 hours, if you still have discomfort, you may use a heating pad. Do not sit or lie on top of heating pad. Do not leave ice or heat on for more than 20 minutes at a time. Stand up slowly from a sitting or lying position today to prevent feeling dizzy or lightheaded. Limit activity today, which includes no driving. You may resume your normal activity and driving the next day after your procedure. You may take a shower. No tub bath, swimming pool, hot tub, etc., for 24 hours. You have received two (2) medications in your injection today. The first is a numbing medicine. This medicine may give you quick pain relief that may wear off before tomorrow. The second medicine is a steroid which may take 2-7 days to start working. You may also have some extra soreness at the injection site. After the numbing medicine wears off, your pain may return until the steroid starts working. If you have any questions or problems, please call the Pain Management Center at . For emergencies after 4:00 p.m., you should call the hospital air breaker operator at and ask tospeak with the Pain Service doctor administrative assistant receptionist. [facility] ([facility]) DISCHARGE INSTRUCTIONS MEDICATIONS: [x] Continue your current home medications Start: [x] Notify your pharmacy for refill(s) 7 days before you are out of your medication. PROCEDURE at today's visit: Lumbar Selective Nerve Root Injection DIET: [x] Resume normal diet [] See [facility] Post Discharge Procedure Information Sheet ACTIVITY: [] Resume normal activity [x] See [facility] Post Discharge Procedure Information Sheet REFERRALS: Physical Therapy [] [facility] ([phone]) [] [facility] (Graded Motor Imagery) [] [facility] ([phone]) Option 1 [] G[facility] (Graded Motor Imagery) [] [facility] ([phone]) [] Other: Behavior Medicine [] Pain Psychologist, [facility] Please call to schedule appointment [phone] or [phone] Diagnostic Test(s): May get Radiographs performed in Radiation/X-Ray 6th floor, [address]. [] Please call to schedule MRI or CT scan at [phone] [] Please call to schedule EMG at [phone] EDUCATION provided on the following: [] Spinal Cord Stimulator Education and DVD. Vendor: FOLLOW UP APPOINTMENTS: [x] Follow up appointment: 3 months INSTRUCTIONS before your next procedure: [] See [facility] Pre-Procedure Information Sheet [] Do not eat or drink for six (6) hours before the time/date of the procedure. [] Inquire with your prescribing provider if ok to hold blood thinner for ( ) days before procedure. [] Blood work required 2 hours before procedure: [] Club Steward needed for next procedure [] Pre Procedure instructions will be sent through [employer] or by phone two working days prior to procedure. *Need help with [employer]? Call [phone]. Patient provided information and repeated back with understanding. If you need to reach us: For any questions about your procedure, please call the Pain Management Center [phone] (M-F) (8am-4pm) If you need urgent attention after 5 pm and weekends: Call the [facility] Consultant at [phone] and ask for the Pain Service doctor administrative assistant receptionist. documented in this encounter Medications at Time of Discharge ALPHA LIPOIC ACID ORAL Take 550 mg by mouth every morning ascorbic acid (VITAMIN C) 1,000 mg tabletIndications :Vitamin C Deficiency Take 1 tablet (1,000 mg total) by mouth every morning calcium carbonate (OS-LILIANE) 1,500 mg (600 mg [...] by mouth daily 30 tablet 3 09/18/2023 magnesium gluconate 200 mg tabletIndications :hypomagnesemia Take 2.5 tablets (500 mg total) by mouth 2 (two) times a day metoprolol XL (TOPROL-XL) 25 mg extended release tablet Take 1 tablet (25 mg total) by mouth daily montelukast (SINGULAIR) 10 mg tabletIndications :Seasonal Allergic Rhinitis Take 1 tablet (10 mg total) by mouth nightly 04/13/2017 zolpidem (AMBIEN) 10 mg tabletIndications :Sleep-Onset Insomnia Take 1 tablet (10 mg total) by mouth nightly baclofen (LIORESAL) 20 mg tabletIndications :Muscle Spasticity of Spinal Origin Take 1 tablet (20 mg total) by mouth 4 (four) times a day Takes 1-2 tabs QID 360 tablet 3 10/23/2023 03/20/20 24 HYDROcodone-aceta minophen (NORCO) 7.5-325 mg per tabletIndications :Pain Take 1 tablet by mouth every 6 (six) hours as needed for pain 120 tablet 03/05/2024 04/10/20 24 lurasidone (LATUDA) 20 mg tablet 1 tablet (20 mg total) 02/02/2023 05/26/20 24 lurasidone (LATUDA) 40 mg tablet Take 1 tablet (40 mg total) by mouth daily 60 mg QD 10/24/2023 05/26/20 24 meloxicam (MOBIC) 15 mg tablet Take 1 tablet (15 mg total) by mouth daily 04/10/20 24 methocarbamoL (ROBAXIN) 500 mg tablet Take 2 tablets (1,000 mg total) by mouth 4 (four) times a day as needed for muscle spasms 240 tablet 2 01/07/2024 04/10/20 24 NON FORMULARY, FOR CLINIC ADMINISTERED MEDICATIONS ONLY, (not in database) 1 each once Estrogen / testosterone cream - compounded 06/02/20 24 triamcinolone (KENALOG) 0.025 % ointment APPLY EXTERNALLY TO THE AFFECTED AREA OF VULVAR TISSUE NIGHTLY 10/04/2023 06/02/20 24 documented as of this encounter Ordered Prescriptions Prescription Sig Dispense Quantity Refills Last Filled Start Date End Date HYDROcodone-acetam inophen (NORCO) 7.5-325 mg per tabletIndications: Pain Take 1 tablet by mouth every 6 (six) hours as needed for pain 120 tablet 03/05/2024 04/10/2024 documented in this encounter Discharge Disposition Disposition Code Departure Means Destination Discharge to home or self care documented in this encounter Progress Notes * Nancy Fernandez MD - 02/26/2024 12:30 PM CDT Patient Name: Annette Camarena : 1960 Today's Date: 02/26/2024 PCP: Rhoan Rothman MD Referring: Nancy Fernandez MD Chief Complaint Patient presents with Back Pain B/l lower back radiating to b/l legs to ankles Pain Management History ANNETTE CAMARENA is a patient initially seen in [...] - meloxicam - Savella - excedrine migraine ([id number]) - baclofen - methocarbamol - duloxetine - [...] 04/2023 Interventions: - L4, 5, S1 RFA debbi 2013 - sig benefit for many years [...] and anterolisthesis at L3-L4 level. INTERVAL HISTORY (02/26/2024): Annette Camarena returns to clinic today. She presents for ongoing management of neck pain, upper back pain, and low back pain. She states that neck and upper back are tight but not very painful. She is going to get more jaw guards because she believes she has been clenching her jaw at night and believes that may be causing the problems. Low back pain is still ongoing and she hopes to get an injection today. Pt has restarted taking meloxicam as gastric issues are no longer a problem as long annika is taking famotidine. Last visit- newer midback pain radiating around chest. Neck and upper back pain. Low back pain radiating to the thighs with cramping. Pain is at lower back. Average pain is 6/10 but ranges from 5-7/10. Radiation: Radiates down the back of both legs, buttocks, thighs, and lower leg to the ankle. No radiation to the feet. Numbness: Denies Weakness: Yuliya Has been taking the extra hydrocodone at night which has been improving sleep. 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 Modified Oswestry Modified Oswestry Low Back Pain Score: 29 Percentage: 58 Pain Assessment Pain Score: 7 Patient's Stated Pain Goal: 3 Pain Location: Back (Lumbar) Pain Radiating Towards: b/l legs to ankles Pain Descriptors: Aching, Shooting, Cramping Pain Frequency: Constant/continuous Last visit 11/27/23 we did the following: Intervention: consider bilateral vs left-only L4-5 TFESI. Medication adjustments: continue current meds for now - increased hydrocodone/APAP rx from #90 to #100 so that she could occasionally take an extra tab at night Referrals: none- planning to try massage therapy Current Pain meds: Pain Medications baclofen (LIORESAL) [...] hours as needed for pain lurasidone (LATUDA) 40 mg tablet Take 1 tablet (40 mg total) by mouth daily meloxicam (MOBIC) 15 mg tablet Take 1 tablet (15 mg total) by mouth daily methocarbamoL (ROBAXIN) 500 mg tablet Take 2 tablets (1,000 mg total) by mouth 4 (four) times a dayas needed for muscle spasms lurasidone (LATUDA) 20 mg tablet 1 tablet (20 mg total) Physical Exam Vitals: 02/26/24 1221 02/26/24 1318 02/26/24 1328 BP: 118/70 115/64 118/74 BP Location: Right arm Patient Position: Sitting Pulse: 84 84 74 Resp: 12 21 21 Temp: 97.2 ??F (36.2 ??C) SpO2: 96% 94% 97% Weight: 63.5 kg (140 lb) Height: 172.7 cm (5' 8 ) Body mass index is 21.29 kg/m??. Physical Exam Musculoskeletal: Comments: Straight leg negative bilaterally. OMA negative bilaterally. Skin: General: Skin is warm. Neurological: Mental Status: She is alert and oriented to person, place, and time. Sensory: No sensory deficit. Motor: No weakness. Comments: TTP in numerous areas through entire spine and paraspinal musculature. LE sensation intact. LE motor 5/5. Psychiatric: Mood and Affect: Mood normal. Assessment The above note documents my personal evaluation of this patient. In addition, I have reviewed and confirmed with the patient and nurse the supportive information documented in today's scanned PatientHealth Questionnaire and Office Note. Encounter Diagnoses Name Primary? Lumbar radiculopathy Fibromyalgia Yes Chronic use of opiate drug for therapeutic purpose Other secondary scoliosis, lumbar region Plan Interventions: B/l L4-5 LSNR Medications: Continue current regimen- hydrocodone/APAP refill sent today The patient shows no signs of aberrant [...] the lowest dose necessary. Chronic Opioid Therapy 02/26/2024 Current analgesics: hydrocodone/APAP 7.5/325 qid Daily dose (MME): 30mg MME Benzodiazepines: no Meds locked up: She keeps in an unmarked box in the closet and is sure to put them out of sight if anyone is coming into her home (family members, cleaning crew, etc) Plan: continue current meds for now. Urine drug screen [facility] - 02/14/24- consistent 3. Imaging: No further imaging needed at this current time. 4. Referral: No referrals needed at this current time. 5. Follow-up: In 3 months for re-evaluation of the above regimen. Rogers Moore MD Resident, Anesthesiology I provided this service on 02/26/2024 I saw and examed the patient by myself. I reviewed patient's chart, labs and image/result. I have reviewed the above evaluation and treatment plan withTrainee Physician Dr. Moore . I agree with the evaluation and treatment plan as above. Nancy Fernandez MD [facility] Department of Anesthesiology and Pain 1:36 PM 02/26/2024 Nancy Fernandez MD documented in this encounter Miscellaneous Notes * Op Note - Nancy Fernandez MD - 02/26/2024 12:30 PM CDT SURGEON: Nancy Fernadnez M.D. JORDAN MAN SURGEON: JORDAN MAN SURGEON:Rogers Moore MD NAME OF PROCEDURE: Lumbar Transforaminal Epidural Steroid Injection (Selective Nerve Root Injection) at Bilateral L4-5 PREPROCEDURAL DIAGNOSES: The encounter diagnosis was Lumbar radiculopathy. POSTPROCEDURAL DIAGNOSES: The encounter diagnosis was Lumbar radiculopathy. INDICATION FOR PROCEDURE: Low back pain radiating to the bilateral LE. INFORMED CONSENT: After reviewing the procedure with the patient, informed consent to proceed with the injection was obtained. A procedural permit was also signed. DESCRIPTION OF PROCEDURE: The patient was placed in the prone position on the fluoroscopy table. Fluoroscopy was used to identify the left L4-5 level. The lumbar area was prepped with chlorhexadine solution and draped with sterile towels. Sterile technique was used throughout. At the needle entry point for the injection at lumbar level left L4-5, the skin and subcutaneous tissues were infiltratedwith 1% lidocaine. A 22-gauge B - bevel spinal needle was introduced and positioned with fluoroscopic imaging. The needle was advanced to the posterior margin of the neural foramen. Needle positioning was verified with AP and lateral fluoroscopic images under live fluoroscopy. Radiographic contrast (Omnipaque 300) was injected via extension tubing (volume 0.5 ml.), with injected contrast being spread in the anticipated path of the nerve root. There was no spread of contrast into the spinal canal.There was no intra-vascular spread of contrast. Radiographic contrast was seen to spread into theepidural space. Bupivacaine, 2.5 mg., with dexamethasone, 2 mg., (for a total volume of 2 ml.) were injected, resulting in dispersion of the previously injected contrast. No paresthesias were encountered during needle placement or injection of the solution. After completing the procedure at left L4-5 attention was turned to the right L4-5 interspace. Similar technique was used to bring the needle down to the posterior margin of the right L4-5 neural foramen. Needle positioning was verified with AP and lateral fluoroscopic images under live fluoroscopy. Radiographic contrast was injected via extension tubing (volume 0.5 ml.) with injected contrast being spread in the anticipated path of the nerve root. There was no spread of contrast into the spinal canal.There was no intra-vascular spread of contrast.Radiographic contrast was seen to spread intothe epidural space. Bupivacaine, 2.5 mg., with dexamethasone, 2 mg., (total volume 2 ml.) were injected, with dispersion of the previously injected contrast. The patient did experience a paresthesia in the anticipated distribution of the nerve root, which readily resolved with repositioning of the needle or slowing the rate of injection. Operative Findings: The procedure was completed as planned. Complications: There were no apparent complication. Estimated Blood Loss: None Intraoperative Fluids: None Specimens: None Dr. Fernandez was present for, and participated in, the entire procedure. DISPOSITION: Patient discharged home in stable condition. documented in this encounter Plan of Treatment Not on file documented as of this encounter Goals Goal Patient Goal Type Associated Problems Recent Progress Patient-Stated? 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 Minimize further functional decline 2. Maximize quality of life 3. Control pain Strategies: - Activity/exercise program recommendation - Conservative stepwise pain medicine strategy with multi-disciplinary approach - Recommend healthy lifestyle strategies and compensatory methods as needed documented as of this encounter Procedures Procedure Name Priority Date/Time Associated Diagnosis Comments PAIN MGMT IMAGING LUMBAR/SACRAL SELECTIVE NERVE ROOT INJ (TFE) BILATERAL Schedule Routine, Read Routine (OP Routine) 02/26/2024 1:35 PM CDT Lumbar radiculopathy documented in this encounter Results * Imaging Lumbar/Sacral Selective Nerve Root INJ (TFE) Bilateral (83619) (02/26/2024 1:35 PM CDT) Narrative [id number] - [...] scoliosis, lumbar region documented in this encounter Administered Medications Inactive Administered Medications - up to 3 most recent administrations Medication Order MAR Action Action Date Dose Rate Site BUPivacaine (MARCAINE) 0.25 % (2.5 mg/mL) preservative free injection As needed, Starting on Sun02/26/24 at 1323, Intra-Op Given 02/26/2024 1:23 PM CDT 3 mL dexAMETHasone (DECADRON) 4 mg/mL injection Administer over 2 Minutes, As needed, Starting on e 02/26/24 at 1323, Intra-Op Given 02/26/2024 1:23 PM CDT 8 mg iohexoL (OMNIPAQUE) 300 mg iodine/mL injection solution As needed, Starting on 02/26/24 at 1323, Intra-Op Given 02/26/2024 1:23 PM CDT 1 mL lidocaine (PF) (XYLOCAINE) 10 mg/mL (1 %) preservative free injection As needed, Starting on Sun02/26/24 at 1323, Intra-Op Given 02/26/2024 1:23 PM CDT 5 mL documented in this encounter Discontinued Medications Medication Sig Discontinue Reason Start Date End Da te alendronate (FOSAMAX) 70 mg tabletIndications:Post-M enopausal Osteoporosis Take 1 tablet (70 mg total) by mouth once a week Sunday Therapy completed 04/02/2020 02/26/2024 fluconazole (DIFLUCAN) 200 mg tablet TAKE 1 TABLET BY MOUTH EVERY OTHER DAY FOR 3 DOSES Therapy completed 08/23/2023 02/26/2024 fluconazole (DIFLUCAN) 200 mg tablet One by mouth every other day for three doses. Therapy completed 08/23/2023 02/26/2024 meloxicam (MOBIC) 15 mg tablet Take 1 tablet (15 mg total) by mouth daily Therapy completed 06/11/2023 02/26/2024 nystatin ointment apply to external vulvar tissues twice daily. Therapy completed 08/23/2023 02/26/2024 triamcinolone (KENALOG) 0.1 % ointment APPLY TO EXTERNAL VULVAR TISSUES TWICE DAILY DIRECTED Therapy completed 08/15/2023 02/26/2024 tacrolimus (PROTOPIC) 0.1 % ointment Apply topically 2 (two) times a day Therapy completed 09/04/2023 02/26/2024 HYDROcodone-acetaminophe n (NORCO) 7.5-325 mg per tabletIndications:Pain Take 1 tablet by mouth every 6 (six) hours as needed for pain Reorder 02/07/2024 02/26/2024 documented as of this encounter Historical Medications * This list may reflect changes made after this encounter. meloxicam (MOBIC) 15 mg tablet Take 1 tablet (15 mg total) by mouth daily 04/10/2024 added in this encounter Orders Discharge Count Last Ordered Date First Orde red Date DISCHARGE PATIENT 1 02/26/2024 documented in this encounter Care Teams Workers Compensation Claims Specialist Relationship Specialty Start Date End Date Rohan Rothman MD [address] [facility] [address] [place] [address] PCP - General 07/20/20 05/12/24 Reanna Polanco RN Registered Nurse 07/07/19 documented as of this encounter
--- OUTSIDE RECORDS SUMMARY | 2024-07-28 01:03 | XMS_ITS | Encounter Summary ---
Author Organization [facility] Healthcare Address [address] [facility] [place] [address] Care Team Providers Care Icu Registered Nurse Name Role Phone Reanna Polanco RN [facility] Rohan Salvador MD Primary Care Provider Encounter Details Date Type Department Care Team (Late st Contact Info) Description 02/01/2024 Telephone [facility] [address] [facility] [address] [place] [address] Nancy Fernandez MD [address] [facility] [address] [facility] [phone] [place], [place] [id number] Social History Tobacco Use Types Packs/Day Years [...] on file 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 Order is in * Telephone Encounter - Reanna Montaño RN - 02/01/2024 2:32 PM CDT In reference to your result note on her lumbar MRI. * Telephone Encounter - Reanna Montaño RN - 02/01/2024 2:25 PM CDT Spoke with pt on phone, relayed your response to her. She said that her pain is mostly in upper leg/hip area and does not radiate. States that pain is present on both sides but more so on R side. She would like the TFESI on 02/25, if you could place order. Then I'll change her appt from FV2 to TFESI procedure. Thx! documented in this encounter Plan of Treatment Not on file documented as of this encounter Goals Goal Patient Goal Type Associated Problems Recent Progress Patient-Stated? Author CCM Chronic Pain Care Plan Chronic Care Management Improving( 10:05 AM INNERSOLE FITTER) Bessy Gayle, RUBIO Note: Problem: Chronic Pain Goals: 1. Minimize further functional decline 2. Maximize quality of life 3. Control pain Strategies: - Activity/exercise program recommendation - Conservative stepwise pain medicine strategy with multi-disciplinary approach - Recommend healthy lifestyle strategies and compensatory methods as needed documented as of this encounter Visit Diagnoses Not on filedocumented in this encounter Care Teams Icu Registered Nurse Relationship Specialty Start Date End Date Rohan Rothman MD [address] [facility] [address] [place] [address] PCP - General 07/20/20 05/12/24 Reanna Polanco RN Registered Nurse 07/07/19 documented as of this encounter
--- OUTSIDE RECORDS SUMMARY | 2024-07-28 01:03 | XMS_ITS | Encounter Summary ---
Author Organization [facility] Healthcare Address [address] [place] [address] Care Team Providers Care Biofuels Manager Name Role Phone Reanna Polanco RN [facility] Peyman Carvajal MD Primary Care Provider Reason for Visit * - Closed Specialty Diagnoses / Procedures Referred By Contac t Referred To Contact Diagnoses Rotoscoliosis Procedures XR Scoliosis 6 or More Views Tara Guardado MD [address] [place] [address] Phone: tel: fax: [facility] (All Locations) Referral ID Status Reason Start Date Expiration Date Visits Re quested Visits Authorized [id number] Closed 05/26/2024 06/25/2025 1 1 Encounter Details Date Type Department Care Team (Latest Contact Info) Description 05/26/2024 1:54 PM CDT - 05/26/2024 11:59 PM CDT Hospital Encounter [facility] [address] [place] [address] Rotoscoliosis Discharge Disposition: Discharge to home or [...] on file Legal Sex Female 2:03 AM MASTER STEAM 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 Author CCM Chronic Pain Care Plan Chronic Care Management Improving( 10:05 AM MASTER STEAM YACHT) No Bessy Mancuso RN Note: Problem: Chronic [...] (OP Routine) 05/26/2024 2:17 PM CDT Rotoscoliosis documented in this encounter Results * XR Scoliosis 6 or More [...] it. Electronically signed by: Wojciech Kendall D.O. us Tara Guardado MD IMG XR PROCEDURES Final Re sult documented in this encounter Visit Diagnoses Diagnosis Rotoscoliosis documented in this encounter Care Teams Biofuels Manager Relationship Specialty Start Date End Date Peyman Ortega MD [address] [facility] [address] [place] [address] PCP - General Family Practice 05/13/24 Reanna Polanco, RN Registered Nurse 07/07/19 documented as of this encounter
--- OUTSIDE RECORDS SUMMARY | 2024-07-28 01:03 | XMS_ITS | Encounter Summary ---
Author Organization [facility] Address [address] [place] [address] Phone Care Team Providers Care Chinchilla Farmer Name Role Phone Reanna Polanco RN [facility] Rohan Salvador MD Primary Care Provider Reason for Visit * Reason Comments Return Patient Encounter Details Date Type Department Care Team (Late st Contact Info) Description 11/21/2023 12:40 PM CDT Office Visit 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 History of Present Illness: 11/21/2023 She is here for one year potop visit. She reports that she is doing well, no neck pain. Her swallowing got better with time and no issue now. She has done therapy but keep doing the exercises. She ishaving lower back pain as well 05/23/2023 Overall she feels she is has improved her neck pain in her lower back pain has improved physical therapy she is had some mild swallowing issues when eating but overall feels that it has been the sameher potentially better as well she feels her balance has improved as well 02/07/2023 She is here for her six-month postop visit overall her neck pain has gotten better with physical therapy she would not have any hand symptoms and no issues with the balance she does feel though over the last 6 weeks or so she is been worsening swallowing and worsening with her voice not as bad as it was prior but still present 11/08/2022 Annette Santiago is a 62-year-old female who presents today for her 3 month postoperative visit. Overall she is doing well. She does state that she does have some trouble swallowing, however it has improved since we last saw her. At this point she has difficulty with sandwiches, bread, salad. She does feel that it is slowly improving and therefore plans to wait to follow up with ENT. She is currently in physical therapy and does have some trapezial and pectoral pain on her left side. They havebeen working on this with her. She is taking muscle relaxants which does help. She also states thatshe does have some pain and sensitivity in her scar as well as itching sensation. She states that her balance is good she has not had any falls. She is on her medications again for her low back pain which continues to give her trouble. She states that her voice has significantly improved since we last saw her as well. Major Findings: There were no vitals taken for this visit. On the physical exam, the patient is sitting in a chair in no acute distress. Alert and oriented toperson, place, and time. She is able to stand unassisted and has a normal reciprocal gait with a good overall coronal and sagittal balance. Normal reflexes. Intact sensation to light touch in all major dermatomes. The incision is well-healed. Upper Extremity Strength: Deltoid Biceps Triceps WristEx WristFlex Produce Field Merchandiser Right 5 5 5 5 5 5 Left 5 5 5 5 5 5 Lower Extremity Strength: Iliopsoas Quadriceps Hamstrings Tibialis Anterior EHL Gastroc Right 5 5 5 5 5 5 Left 5 5 5 5 5 5 Sensation intact throughout. Radiographs: Cervical spine radiographs including AP, lateral, flexion and extension radiographs were obtained and reviewed today. These reveal intact instrumentation from C3-C6 anterior cervical diskectomy and fusion with anterior cervical plating. It looks like the plate may have migrated superiorly in the screws and C3 may have some evidence of loosening and with flexion-extension and neutral images this however looks like it has improved since his previous x-ray [facility] 11/21/2023 12:14 PM 11/21/2023 12:13 PM 05/23/2023 10:58 AM 05/23/2023 10:57 AM 02/07/2023 10:47 AM 02/07/2023 10:46 AM PROMIS Pain Interference 66.9 62.7 Physical Function V2.0 28.8 26.9 Anxiety V1.0 51.1 49.2 51.1 Depression 50.7 50.8 48.7 Sixto Sauer MD Spine Fellow Department of Orthopedic Surgery I have seen and examined the patient on 11/21/2023. I agree with the findings and plan of care as documented in the resident's/fellow's note.. Olivier Marion MD Assessments: Ms. Santiago is doing well, now 15 months status post surgery. Discussion: For pain standpoint she is doing well this time she is happy with the progress she is making she isdoing home physical therapy program and doing well. Her swallowing issue is resolved. We will see her back in a year with new xrays. If the back pain bothers her more I am happy to see her and discuss treatment options Her questions were answered. She was in agreement with the plan. Olivier Marion MD documented in this encounter Plan of Treatment Not on file documented as of this encounter Goals Goal Patient Goal Type Associated Problems Recent Progress Patient-Stated? Author CCM Chronic Pain Care Plan Chronic Care Management Improving( 10:05 AM BOILER SHOP MECHANIC) No Bessy Mancuso RN Note: Problem: Chronic Pain Goals: 1. Minimize further functional decline 2. Maximize quality of life 3. Control pain Strategies: - Activity/exercise program recommendation - Conservative stepwise pain medicine strategy with multi-disciplinary approach - Recommend healthy lifestyle strategies and compensatory methods as needed documented as of this encounter Results * XR Spine Cervical W Flexion And Extension 4 or 5 Views (11/21/2023 12:04 PM CDT) Anatomical Region Laterality Modality Spine N/A Computed Radiogr aphy 11/21/2023 1:46 PM CDT Impressions 11/21/2023 1:46 PM CDT 1. ??Unchanged C3-C6 anterior instrumented spinal fusion, angular excursion of the fused segments, and fracture of a C6 screw. Electronically signed by: Talha Méndez MD Narrative 11/21/2023 1:46 PM CDT EXAMINATION: XR SPINE CERVICAL W FLEXION AND EXTENSION 4 OR 5 VIEWS HISTORY: ??Cervical fusion FINDINGS: 4 radiographs of the cervical spine are compared to 05/23/2023. Unchanged anterior cervical discectomy and instrumented spinal fusion from C3-C6. ??The superior aspect of the anterior plate is noted to abut the anterior inferior aspect of C2, with osseous remodeling. There is unchanged fracture of one of the C6 screws. ??Angular excursion at all levels is redemonstrated between flexion and extension positions. ??There is no acute displaced fracture or prevertebral soft tissue swelling. ??Multilevel facet and uncovertebral arthropathy is noted. Procedure Note Rosalind Méndez MD - 11/21/2023 EXAMINATION: XR SPINE CERVICAL W FLEXION AND EXTENSION 4 OR 5 VIEWS HISTORY: Cervical fusion FINDINGS: 4 radiographs of the cervical spine are compared to 05/23/2023. Unchanged anterior cervical discectomy and instrumented spinal fusion from C3-C6. The superior aspect of the anterior plate is noted to abut the anterior inferior aspect of C2, with osseous remodeling. There is unchanged fracture of one of the C6 screws. Angular excursion at all levels is redemonstrated between flexion and extension positions. There is no acute displaced fracture or prevertebral soft tissue swelling. Multilevel facet and uncovertebral arthropathy is noted. IMPRESSION: 1. Unchanged C3-C6 anterior instrumented spinal fusion, angular excursion of the fused segments, and fracture of a C6 screw. Electronically signed by: Talha Méndez MD Olivier Marion MD IMG XR PROCEDURES Final Re sult documented in this encounter Visit Diagnoses Diagnosis Fusion of spine of cervical region- Primary Fusion of spine of cervical region documented in this encounter Care Teams Chinchilla Farmer Relationship Specialty Start Date End Date Rohan Rothman MD [address] [facility] [address] [place] [address] PCP - General 07/20/20 05/12/24 Reanna Polanco RN Registered Nurse 07/07/19 documented as of this encounter
--- OUTSIDE RECORDS SUMMARY | 2024-07-28 01:03 | XMS_ITS | Encounter Summary ---
Author Organization [facility] Healthcare Address [address] [facility] [place] [address] Care Team Providers Care Engagement Mgr Name Role Phone Reanna Polanco RN [facility] Rohan Salvador MD Primary Care Provider Encounter Details Date Type Department Care Team (Late st Contact Info) Description 02/04/[address] 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 Author CCM Chronic Pain Care Plan Chronic Care Management Improving( 10:05 AM DIVISION SUPERINTENDENT) No Bessy Mancuso, RUBIO Note: Problem: Chronic Pain Goals: 1. Minimize further functional decline 2. Maximize quality of life 3. Control pain Strategies: - Activity/exercise program recommendation - Conservative stepwise pain medicine strategy with multi-disciplinary approach - Recommend healthy lifestyle strategies and compensatory methods as needed documented as of this encounter Visit Diagnoses Not on filedocumented in this encounter Care Teams Engagement Mgr Relationship Specialty Start Date End Date Rohan Rothman MD [address] [facility] [address] [place] [address] PCP - General 07/20/20 05/12/24 Reanna Polanco RN Registered Nurse 07/07/19 documented as of this encounter
--- OUTSIDE RECORDS SUMMARY | 2024-07-28 01:03 | XMS_ITS | Encounter Summary ---
Author Organization [facility] Address [address] [place] [address] Phone Care Team Providers Care Experimental Worker Name Role Phone Reanna Polanco RN [facility] Peyman Carvajal MD Primary Care Provider Reason for Referral * Consultation (Routine) - Authorized Specialty Diagnoses / Procedures Referred By Contac t Referred To Contact Physical Therapy Diagnoses Cervicalgia Moncho Rendon MD [address] [address] Phone: tel: fax: [facility] (All Locations) Referral ID Status Reason Start Date Expiration Date Visits Requested Visits Authorized [id number] Authorized Evaluate and Treat 05/21/2024 05/21/2025 24 5 Question Answer PTRFR PT Evaluate and Treat Therapy options discussed with patient? Yes Location provided for therapy services is: Patient requested/Patient preferred Please select the performing region: [facility] (All Locations) [[id number]] Please select the performing department: [facility] [address]ittany IVERSON - (This location open starting 01/27/2022) # of visits: 24 Comments For treatment of excessive tension or imbalance in the cervical musculature manifesting as voice or swallow complaint. Recommend myofascial release treatment with focus on anterior and posterior neck, shoulders, and upper back, with inclusion of head, extremities, chest, abdomen, and pelvis if indicated. Please contact Dr. Rendon with any questions. Reason for Visit * Reason Comments Follow-up Dysphonia and Dyspha tu * Consultation (Routine) - Closed Specialty Diagnoses / Procedures Referred By Contac t Referred To Contact Otolaryngology Diagnoses Fusion of spine of cervical region Dysphagia, unspecified type Olivier Marion MD [address] [facility] [address]6B[address] [place] [address] Phone: tel: fax: Moncho Rendon MD [address] [facility] [address] [place] [address] Phone: tel: fax: Referral ID Status Reason Start Date Expiration Date V isits Requested Visits Authorized [id number] Closed Specialty Services Required 05/23/2023 06/21/2024 12 12 Encounter Details Date Type Department Care Team (Late st Contact Info) Description 05/21/2024 3:40 PM CDT Office Visit [facility] - [facility] ENT [address] [facility] 11th [place] [address] [place] [address] Moncho Rendon MD [address] [address] Cervicalgia (Primary Dx); Fusion of spine of cervical region; Dysphagia, unspecified type Social History Tobacco Use Types Packs/Day [...] on file Legal Sex Female 2:03 AM HAND SHAPER Gender Identity Female 08/26/2020 6:26 AM HAND SHAPER Sexual Orientation Straight 08/26/2020 6: 26 AM HAND SHAPER documented as of this encounter Last Filed Vital Signs Vital Sign Reading Time Taken Comments Blood Pressure - - Pulse - - Temperature - - Respiratory Rate - - Oxygen Saturation - - Inhaled Oxygen Concentration - - Weight 68.1 kg (150 lb 1.6 oz) 05/21/2024 3:19 P M CDT Height 172.7 cm (5' 8 ) 05/21/2024 3:19 PM CDT Body Mass Index 22.82 05/21/2024 3:19 PM CDT documented in this encounter Progress Notes * Moncho Rendon MD - 05/21/2024 3:40 PM CDT Images from the original note were not included. [facility] Department of Otolaryngology - Head & Neck Surgery [facility] Return Visit PATIENT NAME: Annette Santiago : 1960 DATE: 05/21/2024 PATIENT ID: Annette Santiago is a 63 y.o. previously evaluated and treated for dysphagia after ACDF. LAST SURGERY: ACDF, 08/09/2022 LAST VISIT: 03/15/2023 Initial: Ms. Santiago is referred for evaluation of voice changes after cervical spine surgery whichhas been present for about 1 month(s). Her initial surgery was on 08/09/2022. She also had a returned to OR for evacuation of hematoma. That was performed in the same day. At her follow up appointment 2 weeks after surgery, she reported continued voice weakness to her spine surgeon. He recommended that she be evaluated here at the voice and airway center. She reports continued difficulty with her swallowing and her voice. Her swallow difficulty is mostly with solid foods. She is adjusted her diet to eat foods that are soft, with slimy textures. These seemed to go down more easily. She also occasionally has some trouble with thin liquids. She does not cough or choke on her thin liquids. She feels like her voice might be improving just slightly. Shedescribes it as raspy and weak. She confirms that her swallowing and her voice were completely normal prior to surgery. Subjective Annette Santiago is a 63 y.o. female who presents today for follow-up of dysphagia. She was last seen a little over a year ago. At that point, her previously identified left vocal fold paralysis hadresolved spontaneously. Today, she reports a new concern of throat and neck pain. She describes thepain as located around the level of her voice box. It tends to worsen when she has other full body pains, which have consistent patterns with the weather changes. Also worsens when she was stressed. She does not identify any alleviating factors. REVIEW OF SYSTEMS: No changes since last office visit. Objective PHYSICAL EXAM: Constitutional: Vitals Ht 172.7 cm (5' 8 ) Wt 68.1 kg (150 lb 1.6 oz) BMI 22.82 kg/m?? General: Well-developed, well-nourished in no apparent distress. Appropriate affect. Voice: perceptual evaluation of voice reveals overall mild dysphonia; mild roughness, no breathiness, no weakness, and mild strain. The pitch is within expectations for age and gender. There is not evidence of tremor. Head and Face: Normocephalic, atraumatic. Skin: No cutaneous lesions of the face or neck. Neurologic: Cranial nerves II through XII are grossly intact. Eyes: Pupils are equal, round, and reactive to light and accommodation. Ears: Auricles are unremarkable bilaterally. Nose: Dorsum is midline. No external deformity. Oral Cavity/Oropharynx: No visible mucosal lesions. Tongue protrudes midline, palate elevates symmetrically. Floor of mouth is pink and soft. No abnormalities of the floor of mouth, oral tongue, or oropharynx. Neck: No evidence of lymphadenopathy, masses or tenderness. There is not excessive tension in the cervical musculature. There is not excessive tenderness in the cervical musculature. Well-healed incision over the left side of the neck. LARYNGEAL EXAM Procedure: Flexible transnasal laryngeal videostroboscopy Indication: Throat discomfort and Concern for vocal fold motion abnormality In a separately identifiable procedure to better assess the larynx based on the history and other exam findings, the patient underwent flexible transnasal laryngoscopy via the left side of the nose. Tetracaine 1% and oxymetazoline 0.025% (1:1) was applied to the nasal cavity. The procedure was described in detail to the patient. The risks benefits, and alternatives were thoroughly discussed and the patient wished to proceed with the recommended procedure. After topical anesthesia and decongestion, the laryngoscope was passed. The nasal cavities, nasopharynx, oropharynx, hypopharynx, and larynx were all examined. Vocal folds were examined during respiration and phonation. The following findings were noted: - General: mucus consistency very thick - Nasopharynx: no purulence or polyps - Hypopharynx: no lesions; no erythema - Supraglottis: no lesions; no erythema or edema; mild constriction during phonation - Vocal Fold Mobility: Normal bilateral vocal cord mobility - Vocal Fold Anatomy: normal color; no lesions; no edema - Mucosal wave pattern: Mucosal wave fully intact bilaterally - Phase symmetry: no vertical phase asymmetry - Closure: full closure on videostroboscopy - Subglottis: subglottis patent without evidence of stenosis DATA REVIEWED: 05/21/2024 Lab Tests: no Pathology Reports: no Radiology Reports: no Old Records/Discussion with MD: Prior encounter notes reviewed as well as relevant notes from otherproviders. Assessment/Plan Annette Santiago is a 63 y.o. referred for evaluation of new complaint, throat discomfort. Evaluation including laryngeal videostroboscopy was significant for full return of bilateral vocal cord motion. Her new discomfort is most directly attributable to pain in her strap muscles. She has widespread muscular pain including the trapezius, jaw, SCMs. There were no other abnormal findings besides significant dryness. I counseled on increased hydration. For her neck muscle pain, recommended that she work with our physical therapy team. MEDICATION ORDERS: No orders of the defined types were placed in this encounter. OTHER ORDERS: Orders Placed This Encounter Procedures Ambulatory referral order to Physical Therapy - OR ORDERS: Ambulatory referral to ENT DISPOSITION: Return if symptoms worsen or fail to improve. Moncho Rendon M.D. Cellophane Bag Machine Operator [facility] Department of Otolaryngology - Head & Neck Surgery [facility] Portions of this note were dictated using M*Modal Fluency Direct. Net Sql Developer errors and homophone substitutions may occur. documented in this encounter Plan of Treatment Scheduled Referrals Name Type Priority Associated Diagnoses Order Schedule Ambulatory referral order to Physical Therapy - Outpatient Referral Routine Cervicalgia Expected: 06/04/2024 (Approximate), Expires: 05/21/2025 documented as of this encounter Goals Goal Patient Goal Type Associated Problems Recent Progress Patient-Stated? Author CCM Chronic Pain Care Plan Chronic Care Management Improving( 10:05 AM HAND SHAPER) Bessy Gayle RN Note: Problem: Chronic Pain Goals: 1. Minimize further functional decline 2. Maximize quality of life 3. Control pain Strategies: - Activity/exercise program recommendation - Conservative stepwise pain medicine strategy with multi-disciplinary approach - Recommend healthy lifestyle strategies and compensatory methods as needed documented as of this encounter Visit Diagnoses Diagnosis Cervicalgia- Primary Fusion of spine of cervical region Dysphagia, unspecified type documented in this encounter Historical Medications * This list may reflect changes made after this encounter. levomefolate-alga l oil 15-90.314 mg capsule Take 1 capsule by mouth daily added in this encounter Orders Outpatient Referral Count Last Ordered Date Fir st Ordered Date AMB REFERRAL TO ENT 1 05/21/2024 documented in this encounter Care Teams Experimental Worker Relationship Specialty Start Date End Date Peyman Ortega MD [address] [facility] [address] [place] [address] PCP - General Family Practice 05/13/24 Reanna Polanco, RN Registered Nurse 07/07/19 documented as of this encounter
--- OUTSIDE RECORDS SUMMARY | 2024-07-28 01:03 | XMS_ITS | Encounter Summary ---
Author Organization [facility] Healthcare Address [address] [place] [address] Care Team Providers Care Web Marketing Manager Name Role Phone Reanna Polanco RN [facility] Quiroz MD Primary Care Provider Reason for Referral * Procedure (Routine) - Closed Specialty Diagnoses / Procedures Referred By Contac t Referred To Contact Diagnoses Bilateral low back pain without sciatica, unspecified chronicity Muscle spasm Procedures TRIGGER POINT INJECTION Tara Guardado MD [address] [place] [address] Phone: tel: fax: [address] [phone] Referral ID Status Reason Start Date Expiration Date Visits Re quested Visits Authorized [id number] Closed 05/26/2024 06/25/2025 1 1 AL ERECTOR Reason for Visit * Reason Comments Back Pain * Procedure (Routine) - Closed Specialty Diagnoses / Procedures Referred By Contac t Referred To Contact Diagnoses Bilateral low back pain without sciatica, unspecified chronicity Muscle spasm Procedures TRIGGER POINT INJECTION Tara Guardado MD [address] [place] [address] Phone: tel: fax: [facility] [address] [facility] [place] [address] Referral ID Status Reason Start Date Expiration Date Visits Re quested Visits Authorized [id number] Closed 05/26/2024 06/25/2025 1 1 Encounter Details Date Type Department Care Team (Latest Contact Info) Description 2024 9:51 AM AERIAL ERECTOR - 2024 11:59 PM AERIAL ERECTOR Hospital Encounter [facility] at the [facility] [address] [facility] [address] [place] [address] Nancy Fernandez MD [address] [facility] [id number] [place], [place] [id number] Myalgia (Primary Dx); Bilateral low back pain [...] on file Legal Sex Female 2:03 AM AERIAL ERECTOR Gender Identity Female 08/26/2020 6:26 AM AERIAL ERECTOR Sexual Orientation Straight 08/26/2020 6: 26 AM AERIAL ERECTOR documented as of this encounter Last Filed Vital Signs Vital Sign Reading Time Taken Comments Blood Pressure 137/86 2024 10:02 AM AERIAL ERECTOR Pulse 68 2024 10:02 AM AERIAL ERECTOR Temperature 36.5 ??C (97.7 ??F) 2024 10:[address] Respiratory Rate 10 2024 10:01 AM AERIAL ERECTOR Oxygen Saturation 97% 2024 10:02 AM AERIAL ERECTOR Inhaled Oxygen Concentration - - Weight 67.1 kg (148 lb) 2024 10:01 AM AERIAL ERECTOR Height 167.6 cm (5' 6 ) 2024 10:01 AM AERIAL ERECTOR Body Mass Index 23.89 2024 10:01 AM AERIAL ERECTOR documented in this encounter Discharge Instructions * Discharge Instructions* Florinda Roman, RUBIO - 2024 9:57 AM AERIAL ERECTOR PAIN [facility]NA[facility]EMENT [facility] PATIENT EDUCATION POST-PROCEDURE INFORMATION SHEET After this procedure you may have: Dizziness Numbness in one or both legs Weakness in one or both legs These symptoms generally wear off in 6-8 [...] pool, hot tub, etc., for 24 hours. If you have any questions or problems, please call the Pain Management Center at For emergencies after 4:00 p.m., you should call the hospital dehydrator operator at and ask tospeak with the Pain Service doctor salon coordinator. PAIN MANAGEMENT CENTER ([facility]) DISCHARGE INSTRUCTIONS MEDICATIONS: [x] Continue your current home medications [x] Notify your pharmacy for refill(s) 7 days before you are out of your medication. [] Opioid (Narcotic) Agreement signed and patient received copy. [] Side Effects of Opioid Medications given to patient PROCEDURE at today's visit: Trigger point injections low back DIET: [x] Resume normal diet [] See [facility] Post Discharge Procedure Information Sheet ACTIVITY: [] Resume normal activity [x] See [facility] Post Discharge Procedure Information Sheet FOLLOW UP APPOINTMENTS: [] Return as needed [x] Follow up appointment: 3 months *Need help with MyChart? Call [phone]. Patient provided information and repeated back with understanding. If you need to reach us: For any questions about your procedure, please call the Pain Management Center [phone] (M-F) (8am-4pm) If you need urgent attention after 5 pm and weekends: Call the [facility] Animal Shelter Manager at [phone] and ask for the Pain Service doctor salon coordinator. AL ERECTOR AL ERECTOR AL ERECTOR AL ERECTOR AL ERECTOR documented in this encounter Medications at Time of Discharge ALPHA LIPOIC ACID ORAL Take 550 mg by mouth every morning ascorbic acid (VITAMIN C) 1,000 mg tabletIndication s:Vitamin C Deficiency Take 1 tablet (1,000 mg total) by mouth every morning baclofen (LIORESAL) 20 mg tabletIndication s:Muscle Spasticity of Spinal Origin Take 1 tablet (20 mg total) by mouth 4 (four) times a day Takes 1-2 tabs QID 360 tablet 03/20/2024 calcium carbonate (OS-LILIANE) 1,500 mg (600 mg elemental) tablet Take 1,200 mg by mouth 3 (three) times a day with meals CALCIUM CARBONATE-VITAMI N D3 ORAL Take 1 tablet by mouth 2 (two) times a day Calcium Carbonate 1,200 mg with Vitamin D 1,000 international units take 2 daily. cannabidiol, CBD, (EPIDIOLEX) 100 mg/mL solution Take 5 mg/kg by mouth 2 (two) times a day as needed CBD DULoxetine DR (CYMBALTA) 60 mg capsuleIndicatio ns:Anxiety with Depression Take 1 capsule (60 mg total) by mouth 2 (two) times a day estradiol-noreth indrone (ACTIVELLA) 1-0.5 mg per tablet Take 1 tablet by mouth nightly 11/14/2017 famotidine (PEPCID) 10 mg tablet Take 1 tablet (10 mg total) by mouth daily 30 tablet 3 09/18/2023 hydrocortisone 2.5 % ointment Apply 1 Application topically 2 (two) times a day 04/22/2024 levomefolate-alg al oil 15-90.314 mg capsule Take 1 capsule by mouth daily lurasidone (LATUDA) 60 mg tablet Take 1 tablet (60 mg total) by mouth daily 04/30/2024 magnesium gluconate 200 mg tabletIndication s:hypomagnesemia Take 2.5 tablets (500 mg total) by mouth 2 (two) times a day metoprolol XL (TOPROL-XL) 25 mg extended release tablet Take 1 tablet (25 mg total) by mouth daily montelukast (SINGULAIR) 10 mg tabletIndication s:Seasonal Allergic Rhinitis Take 1 tablet (10 mg total) by mouth nightly 04/13/2017 sulfamethoxazole -trimethoprim (BACTRIM DS) 800-160 mg per tablet 05/08/2024 zolpidem (AMBIEN) 10 mg tabletIndication s:Sleep-Onset Insomnia Take 1 tablet (10 mg total) by mouth nightly HYDROcodone-acet aminophen (NORCO) 7.5-325 mg per tabletIndication s:Pain Take 1 tablet by mouth every 6 (six) hours as needed for pain 120 tablet 05/13/2024 4 meloxicam (MOBIC) 15 mg tablet Take 1 tablet (15 mg total) by mouth daily 30 tablet 1 2024 4 methocarbamoL (ROBAXIN) 500 mg tablet Take 2 tablets (1,000 mg total) by mouth 4 (four) times a day as needed for muscle spasms 720 tablet 04/11/2024 documented as of this encounter Ordered Prescriptions Prescription Sig Dispense Quantity Refills Last Filled Start Date End Date meloxicam (MOBIC) 15 mg tablet Take 1 tablet (15 mg total) by mouth daily 30 tablet 1 2024 06/24/2024 documented in this encounter Discharge Disposition Disposition Code Departure Means Destination Discharge to home or self care documented in this encounter H&P Notes * Nancy Fernandez MD - 2024 10:30 AM CST I have reviewed the H&P, examined the patient, and endorse the findings as written. Plan of Care : Based on the above findings, I consider Katrina Camarena to be an acceptable risk for : TPI AL ERECTOR Source Note - Nancy Fernandez MD - 05/26/2024 12:45 PM [...] - meloxicam - Savella - excedrine migraine ([id number]) - baclofen - methocarbamol - duloxetine - [...] next visit Medications: Robaxin 1000 TID and [id number] QID, [place] 7.5 3/day PRN The patient shows no [...] current meds for now. Urine drug screen [facility] - 02/14/24- consistent 3. Imaging: Due to the patient's symptoms, we will obtain imaging of Lumbar spine. 4. Referral: We will refer the patient to customer service sales consultant for [employer]. /Marketing Recruiter clinic. 5. Follow-up: In 3 months for re-evaluation of the above regimen. Tara Guardado MD Fellow, Anesthesia/Pain [facility] in [place] documented in this encounter Miscellaneous Notes * Op Note - Nancy Fernandez MD - 2024 10:30 AM CST Procedure Note Attending Surgeon: Nancy Fernandez MD Surgical Assistants: Surgeons and Role: Brett Perrin MD Date of Surgery: 2024 Diagnosis: Myalgia Bilateral low back pain without sciatica, unspecified chronicity Muscle spasm PA[facility]NA[facility]EMENT C[facility] TRIGGER POINT INJECTION PROCEDURE NOTE CHECK THE APPROPRIATE BOX AND FILL IN THE BLANK(S) NEEDED PRE-PROCEDURE CHECK LIST: 2024 10:56 AM SAFETY PRE-TREATMENT CHECKLIST COMPLETED Check the appropriate box [x] Patient Identification Verified [x] Consent Obtained [] Relevant Images Obtained [x] H&P/Pre-Procedure Note Completed Pre-Procedure Time Out: Verbal agreement among all involved that the patient, procedure, position, injection sites/sides, relevant image labels/orientation, instruments/implants for the planned procedure are available and correct. Physician: Nancy Fernandez MD PROCEDURE NOTE: Procedure Note: After interview and physical exam, with identification of injection sites, the risks (including long-lasting muscle weakness) and benefits were discussed and consent was obtained. Each site was marked, then prepped with an alcohol prep pad. Using a 27 gauge, 1 ?? inch needle, and no-touch technique, the center of the injection site was located where 0.5-2 ml of local anesthetic was infused.. INJECTATE: INDICATE AGENT USED AND TOTAL INJECTIONS AND MLS IN APPROPRIATE COLUMN. [] 1% Lidocaine (1 ml) PF NS (9 ml) Atracurium (.2ml=2mg) [x] 1:1 1% Lidocaine: 0.5% Bupivacaine [] Dry Needle [] 1% Lidocaine [] Other : Total ml Injected : 20 Total # of Muscles Injected : 2 INJECTION SITES: Site R L Site R L Site R L Splenius Capitis [] [] Teres Major/Minor [] [] Iliopsoas [] [] Splenius Cervices [] [] Quadrates Lumborum [] [] Procerus [] [] Masseter [] [] Paravertebral, Cervical [] [] Corrugators [] [] Pterygoids Medial [] [] Paravertebral, Thoracic [] [] Frontalis [] [] Pterygoids Lateral [] [] Paravertebral, Lumbar [x] [x] Temporalis [] [] Sternocleidomastoid [] [] Gluteus Patrick [] [] Occipitalis [] [] Scalenus [] [] Gluteus Medius [] [] Cervical Paraspinal [] [] Rhomboids [] [] Gluteus Minimus [] [] Trapezius, Upper [] [] Levator Scapulae [] [] Tensor Fasciae Latae [] [] Trapezius, Mid [] [] Pectoralis Minor [] [] Vastus Lateralis [] [] Trapezius, Lower [] [] Pectoralis Major [] [] Adductor Dionisio [] [] Pyriformis [] [] Serratus Anterior [] [] Adductor Longus [] [] Other: [] [] Operative Findings: None Estimated Blood Loss: None Intraoperative Fluids: None Specimens: None Blood/Blood Products Transfused: None Complications: None Nancy Fernandez MD Date: 2024 Time: 10:56 AM TEACHING ATTESTATION : I was present and directly participated in the entire procedure (including opening and closing). AL ERECTOR documented in this encounter Plan of Treatment Scheduled Orders Name Type Priority Associated Diagnoses Orde r Schedule TRIGGER POINT INJECTION Procedures Routine Bilateral low back pain without sciatica, unspecified chronicity Muscle spasm Once for 1 Occurrences starting 2024 until 2024 documented as of this encounter Goals Goal Patient Goal Type Associated Problems Recent Progress Patient-Stated? Author CCM Chronic Pain Care Plan Chronic Care Management Improving( 10:05 AM AERIAL ERECTOR) No Bessy Mancuso RN Note: Problem: Chronic Pain Goals: 1. Minimize further functional decline 2. Maximize quality of life 3. Control pain Strategies: - Activity/exercise program recommendation - Conservative stepwise pain medicine strategy with multi-disciplinary approach - Recommend healthy lifestyle strategies and compensatory methods as needed documented as of this encounter Visit Diagnoses Diagnosis Myalgia- Primary Unspecified myalgia and myositis Bilateral low back pain without sciatica, unspecified chronicity Muscle spasm Spasm of muscle documented in this encounter Administered Medications Inactive Administered Medications - up to 3 most recent administrations Medication Order MAR Action Action Date Dose Rate Site BUPivacaine (MARCAINE) 0.5 % (5 mg/mL) preservative free injection As needed, Starting on Sun06/02/24 at 1043, Intra-Op Given 2024 10:43 AM AERIAL ERECTOR 10 mL lidocaine (PF) (XYLOCAINE) 10 mg/mL (1 %) preservative free injection As needed, Starting on Sun06/02/24 at 1043, Intra-Op Given 2024 10:43 AM AERIAL ERECTOR 10 mL documented in this encounter Discontinued Medications Medication Sig Discontinue Reason Start Date End Da te clindamycin (CLEOCIN) 300 mg capsuleIndications:Toe infection Take 1 capsule (300 mg total) by mouth 3 (three) times a day Therapy completed 2024 mupirocin (BACTROBAN) 2 % ointmentIndications:To e infection Apply topically 3 (three) times a day Therapy completed 03/21/2024 2024 NON FORMULARY, FOR CLINIC ADMINISTERED MEDICATIONS ONLY, (not in database) 1 each once Estrogen / testosterone cream - compounded Therapy completed 2024 triamcinolone (KENALOG) 0.025 % ointment APPLY EXTERNALLY TO THE AFFECTED AREA OF VULVAR TISSUE NIGHTLY Therapy completed 10/04/2023 2024 meloxicam (MOBIC) 15 mg tablet Take 1 tablet (15 mg total) by mouth daily Reorder 04/11/2024 2024 documented as of this encounter Orders Discharge Count Last Ordered Date First Orde red Date DISCHARGE PATIENT 1 2024 documented in this encounter Care Teams Web Marketing Manager Relationship Specialty Start Date End Date Peyman Ortega MD [address] [facility] [place]NOTE 2[place] [address] [place] [address] PCP - General Family Practice 05/13/24 Reanna Polanco RN Registered Nurse 07/07/19 documented as of this encounter
--- OUTSIDE RECORDS SUMMARY | 2024-07-28 01:03 | XMS_ITS | Encounter Summary ---
Author Organization [facility] Healthcare Address [address] [place] [address] Care Team Providers Care Dehydrator Tender Name Role Phone Reanna Polanco RN [facility] Rohan Salvador MD Primary Care Provider Encounter Details Date Type Department Care Team (Latest Contact Info) Description 10/18/2023 2:44 PM CDT - 10/18/2023 11:59 PM CDT Hospital Encounter [address] [address] Chronic, continuous use of opioids Discharge Disposition: Discharge to home or self care Social History Tobacco Use Types Packs/Day Years Used Date Smoking Tobacco: Former Cigarettes 1 5 0 11/27/1978 - 09/28/1983 Smokeless Tobacco: Never Alcohol Use Standard Drinks/Week Comments No 0 (1 standard drink = 0.6 oz pur e alcohol) denies AUDIT-C Answer Date Recorded Q1: How often do you have a drink containing alcohol? Never 05/28/2023 Q2: How many drinks containi ng alcohol do you have on a typical day when you are drinking? Patient does not drink Q3: How often do you have si x or more drinks on one occasion? Never 05/28/2023 Hunger Vital Sign Answer Date Recorded Within [...] on file Legal Sex Female 2:03 AM LATHE SETUP OPERATOR Gender Identity Female 08/26/2020 6:26 AM LATHE SETUP OPERATOR Sexual Orientation Straight 08/26/2020 6: 26 AM LATHE SETUP OPERATOR documented as of this encounter Medications at [...] tablet (10 mg total) by mouth nightly alendronate (FOSAMAX) 70 mg tabletIndications :Post-Menopausal Osteoporosis Take 1 tablet (70 mg total) by mouth once a week Sunday04/02/2020 02/26/20 baclofen (LIORESAL) 20 mg tabletIndications :Muscle Spasticity of Spinal Origin Take 1 tablet (20 mg total) by mouth 4 (four) times a day Takes 1-2 tabs QID 360 tablet 3 10/18/2023 10/23/19 fluconazole (DIFLUCAN) 200 mg tablet TAKE 1 TABLET BY MOUTH EVERY OTHER DAY FOR 3 DOSES 08/23/2023 02/26/20 24 fluconazole (DIFLUCAN) 200 mg tablet One by mouth every other day for three doses. 08/23/2023 02/26/20 24 HYDROcodone-aceta minophen (NORCO) 7.5-325 mg per tabletIndications :Pain Take 1 tablet by mouth every 6 (six) hours as needed for pain 90 tablet 10/07/2023 11/01/19 24 lurasidone (LATUDA) 20 mg tablet 1 tablet (20 mg total) 02/02/2023 05/26/20 24 meloxicam (MOBIC) 15 mg tablet Take 1 tablet (15 mg total) by mouth daily 30 tablet 11 06/11/2023 02/26/20 24 methocarbamoL (ROBAXIN) 500 mg tablet Take 2 tablets (1,000 mg total) by mouth 4 (four) times a day as needed for muscle spasms 240 tablet 2 10/16/2023 01/07/20 NON FORMULARY, FOR CLINIC ADMINISTERED MEDICATIONS ONLY, (not in database) 1 each once Estrogen / testosterone cream - compounded 06/02/20 24 nystatin ointment apply to external vulvar tissues twice daily. 08/23/2023 02/26/20 24 tacrolimus (PROTOPIC) 0.1 % ointment Apply topically 2 (two) times a day 09/04/2023 02/26/20 24 triamcinolone (KENALOG) 0.025 % ointment APPLY EXTERNALLY TO THE AFFECTED AREA OF VULVAR TISSUE NIGHTLY 10/04/2023 06/02/20 triamcinolone (KENALOG) 0.1 % ointment APPLY TO EXTERNAL VULVAR TISSUES TWICE DAILY DIRECTED 08/15/2023 02/26/20 24 documented as of this encounter Discharge Disposition Disposition Code Departure Means Destination Discharge to home or self care documented in this encounter Plan of Treatment Not on file documented as of this encounter Goals Goal Patient Goal Type Associated Problems Recent Progress Patient-Stated? Author CCM Chronic Pain Care Plan Chronic Care Management Improving( 10:05 AM LATHE SETUP OPERATOR) Bessy Gayle, RN Note: Problem: Chronic Pain Goals: 1. Minimize further functional decline 2. Maximize quality of life 3. Control pain Strategies: - Activity/exercise program recommendation - Conservative stepwise pain medicine strategy with multi-disciplinary approach - Recommend healthy lifestyle strategies and compensatory methods as needed documented as of this encounter Procedures Procedure Name Priority Date/Time Associated Diagnosis Comments TARGET OPIOID SCREEN BY COSMETIC DENTIST Routine 10/18/2023 5:00 PM CDT Chronic, continuous use of opioids PAIN MANAGEMENT PROFILE Routine 10/18/2023 5:00 PM CDT Chronic, continuous use of opioids DRUGS OF ABUSE SCREEN, URINE WITH REFLEX CONFIRMATION Routine 10/18/2023 5:00 PM CDT Chronic, continuous use of opioids documented in this encounter Results * Targeted Opioid Screen, Ur (10/18/2023 5:00 PM CDT) Pathologist [facility] Pain mgt 6-Acetylmorphine, Ur Not Detected CutOff 10 ng/mL Pain mgt Buprenorphine, Ur Not Detected CutOff 5 ng/mL [facility] Pain mgt Buprenorphine metabolite (Norbuprenorphine), Ur Not Detected CutOff 5 ng/mL [facility] Pain mgt Codeine, Ur Not Detected CutOff 25 ng/mL [facility] Pain mgt Hydrocodone, Ur Detected CutOff 25 ng/mL [facility] Pain mgt Hydromorphone, Ur Not Detected CutOff 25 ng/mL [facility] Pain mgt Methadone, Ur Not Detected CutOff 25 ng/mL [facility] Pain mgt Methadone Metabolite (EDDP), Ur Not Detected CutOff 25 ng/mL [facility] Pain mgt Morphine, Ur Not Detected CutOff 25 ng/mL [facility] Pain mgt Oxycodone, Ur Not Detected CutOff 25 ng/mL [facility] Pain mgt Oxymorphone, Ur Not Detected CutOff 25 ng/mL [facility] Pain mgt Tapentadol, Ur Not Detected CutOff 25 ng/mL [facility] Pain mgt Tramadol, Ur Not Detected CutOff 25 ng/mL [facility] Pain mgt Tramadol metabolite (O-desmethyltramado l), Ur Not Detected CutOff 25 ng/mL [facility] Comment: Interpretive Data This test only detects free, unconjugated drugs. The absence of expected drug(s) and/or metabolite(s) may indicate non-compliance, inappropriate timing of specimen collection relative to the time of dosing, variability in absorption, diluted or adulterated urine, or other testing limitations. Questions concerning interpretation should be directed to the laboratory. The results of this test are to be used only for medical purposes and are not suitable for forensic use. This test was developed and its performance characteristics determined by [facility]. It has not been cleared or approved by the U.S. Food and Drug Administration. Current interpretive data was last revised 19. Pain mgt Naloxone, ur Not Detected cutoff 20 ng/ml [facility] Urine 10/18/2023 5:00 PM CDT 10/18/2023 5:09 PM CDT Carolina Valero NP LAB URINE ORDERABLES Final Re sult [facility] Department [place] [address] * (ABNORMAL) Drugs of Abuse Screen, Urine with Reflex Confirmation (10/18/2023 5:00 PM CDT) Amphetamine, ur Not Detected CutOff 500ng/mL Comment: Interpretive Data - Amphetamines: ??Samples containing greater than 500 ng/mL d-methamphetamine ??or other cross-reacting amphetamine compounds are reported as positive. ??Amphetamine immunoassays are subject to significant false positive rates due to cross-reactivity of non-amphetamine drugs. Confirmatory testing required for definitive results. Current Interpretive Data was last reviewed 2023. Barbiturates, ur Not Detected CutOff 200ng/mL [facility] Comment: Interpretive Data - Barbiturates: ??Samples containing greater than 200 ng/mL secobarbital or other cross-reacting barbiturate compounds are reported as positive. ??False positive and false negative results are possible. Confirmatory testing required for definitive results. Current Interpretive Data was last reviewed 2023. Benzodiazepines, ur Not Detected CutOff 100ng/mL [facility] Comment: Interpretive Data - Benzodiazepines: ??Samples containing greater than 100 ng/mL nordiazepam or other cross-reacting compounds are reported as positive. False positive and false negative results are possible. Confirmatory testing required for definitive results. Current Interpretive Data was last reviewed 2023. Cannabinoids, ur Not Detected CutOff 50 ng/mL [facility] Comment: Interpretive Data - Cannabinoids: ??Samples containing greater than 50 ng/mL delta-9 THC -COOH or other cross-reacting compounds are reported as positive. ??False positive and false negative results are possible. ??Confirmatory testing required for definitive results. Current Interpretive Data was last reviewed 2023. Cocaine, ur Not Detected CutOff 150ng/mL [facility] Comment: Interpretive Data - Cocaine: ??Samples containing greater than 150 ng/mL benzoylecgonine or other cross-reacting compounds are reported as positive. False positive and false negative results are possible. Confirmatory testing required for definitive results. Current Interpretive Data was last reviewed 2023. Fentanyl, Ur Not Detected Cutoff 1 ng/mL [facility] Comment: Interpretive Data - Fentanyl: ??Samples containing greater than 1 ng/mL fentanyl or other cross-reacting fentanyl compounds are reported as positive. ??False positive and false negative results are possible. Confirmatory testing required for definitive results. Current Interpretive Data was last reviewed 2023. Methadone, ur Not Detected CutOff 300ng/mL [facility] Comment: Interpretive Data - Methadone: ??Samples containing greater than 300 ng/mL d,l-methadone or other cross-reacting compounds are reported as positive. ??False positive and false negative results are possible. Confirmatory testing required for definitive results. Current Interpretive Data was last reviewed 2023. Opiates, ur Screen Positive, presumptive (A) CutOff 300ng/mL [facility] Comment: Interpretive Data - Opiates: ??Samples containing greater than 300 ng/mL morphine or other cross-reacting compounds are reported as positive. ??False positive and false negative results are possible. Confirmatory testing required for definitive results. Current Interpretive Data was last reviewed 2023. Oxycodone, ur Not Detected CutOff 100ng/mL [facility] Comment: Interpretive Data - Oxycodone: ??Samples containing greater than 100 ng/mL oxycodone or other cross-reacting compounds are reported as ??positive. ??False positive and false negative results are possible. Confirmatory testing required for definitive results. Current Interpretive Data was last reviewed 2023. Phencyclidine, ur Not Detected CutOff 25 ng/mL [facility] Comment: Interpretive Data - Phencyclidine: ??Samples containing greater than 25 ng/mL phencyclidine or other cross-reacting compounds are reported as positive. ??False positive and false negative results are possible. Confirmatory testing required for definitive results. Current Interpretive Data was last reviewed 2023. Urine Creatinine 77 mg/dL [facility] Comment: Interpretive Data Urine Creatinine: < 10 mg/dL is extremely dilute = or > 10 but < 20 mg/dL is dilute = or > 20 mg/dL is normal Current Interpretive Data was last revised on 2017. Urine 10/18/2023 5:00 PM CDT 10/18/2023 5:09 PM CDT Narrative [facility] - 10/18/2023 6:05 PM CDT Drug of Abuse screening is performed by immunoassay for medical purposes only. ??This is not to be used for Pain Management purposes. ??If Detected, confirmation testing will be performed for Amphetamines, Cocaine, Fentanyl, Methadone, Opiates, Oxycodone or Phencyclidine. us Carolina Valero [employer] LAB URINE ORDERABLES Final Re sult [facility] Department [place] [address] documented in this encounter Visit Diagnoses Diagnosis Chronic, continuous use of opioids documented in this encounter Care Teams Dehydrator Tender Relationship Specialty Start Date End Date Rohan Rothman MD [address] [facility] [address] [place] [address] PCP - General 07/20/20 05/12/24 Reanna Polanco, RN Registered Nurse 07/07/19 documented as of this encounter
--- OUTSIDE RECORDS SUMMARY | 2024-07-28 01:03 | XMS_ITS | Encounter Summary ---
Author Organization [facility] Healthcare Address [address] [facility] [place] [address] Care Team Providers Care Furnace Fitter Name Role Phone Reanna Polanco RN [facility] Rohan Salvador MD Primary Care Provider Encounter Details Date Type Department Care Team (Late st Contact Info) Description 07/16/2023 Orders Only [facility] [address] [facility] [address] [place], [place] [id number] Nancy Fernandez MD [address] [facility] [address] [facility] [phone] [place], [place] [id number] Social History Tobacco Use Types Packs/Day Years [...] on file Legal Sex Female 2:03 AM REVIEW APPRAISER Gender Identity Female 08/26/2020 6:26 AM REVIEW APPRAISER Sexual Orientation Straight 08/26/2020 6: 26 AM REVIEW APPRAISER documented as of this encounter Plan of Treatment Not on file documented as of this encounter Goals Goal Patient Goal Type Associated Problems Recent Progress Patient-Stated? Author CCM Chronic Pain Care Plan Chronic Care Management Improving( 10:05 AM REVIEW APPRAISER) No Bessy Mancuso, RUBIO Note: Problem: Chronic Pain Goals: 1. Minimize further functional decline 2. Maximize quality of life 3. Control pain Strategies: - Activity/exercise program recommendation - Conservative stepwise pain medicine strategy with multi-disciplinary approach - Recommend healthy lifestyle strategies and compensatory methods as needed documented as of this encounter Visit Diagnoses Not on filedocumented in this encounter Care Teams Furnace Fitter Relationship Specialty Start Date End Date Rohan Rothman MD [address] [facility] [address] [place] [address] PCP - General 07/20/20 05/12/24 Reanna Polanco RN Registered Nurse 07/07/19 documented as of this encounter
--- OUTSIDE RECORDS SUMMARY | 2024-07-28 01:03 | XMS_ITS | Encounter Summary ---
Author Organization [facility] Healthcare Address [address] [place] [address] Care Team Providers Care Zipper Measurer Name Role Phone Reanna Polanco RN [facility] Rohan Salvador MD Primary Care Provider Encounter Details Date Type Department Care Team (Late st Contact Info) Description 03/04/2024 Orders Only [facility] [address] [facility] [address] [place], [place] [id number] Tim Johnson NP [address] [place] [address] Neuralgia (Primary Dx) Social History Tobacco Use Types [...] on file Legal Sex Female 2:03 AM RELAY ENGINEER Gender Identity Female 08/26/2020 6:26 AM RELAY ENGINEER Sexual Orientation Straight 08/26/2020 6: 26 AM RELAY ENGINEER documented as of this encounter Ordered Prescriptions Prescription Sig Dispense Quantity Refills Last Filled Start Date End Date methylPREDNISolone (MEDROL DOSEPACK) 4 mg DosepackIndication s:Neuropathic Pain Take as directed on package 1 packet 03/04/2024 documented in this encounter Plan of Treatment Not on file documented as of this encounter Goals Goal Patient Goal Type Associated Problems Recent Progress Patient-Stated? Author CCM Chronic Pain Care Plan Chronic Care Management Improving( 10:05 AM RELAY ENGINEER) No Bessy Mancuso, RUBIO Note: Problem: Chronic Pain Goals: 1. Minimize further functional decline 2. Maximize quality of life 3. Control pain Strategies: - Activity/exercise program recommendation - Conservative stepwise pain medicine strategy with multi-disciplinary approach - Recommend healthy lifestyle strategies and compensatory methods as needed documented as of this encounter Visit Diagnoses Diagnosis Neuralgia- Primary Unspecified neuralgia, neuritis, and radiculitis documented in this encounter Care Teams Zipper Measurer Relationship Specialty Start Date End Date Rohan Rothman MD [address] [facility] [address] [place] [address] PCP - General 07/20/20 05/12/24 Reanna Polanco RN Registered Nurse 07/07/19 documented as of this encounter
--- OUTSIDE RECORDS SUMMARY | 2024-07-28 01:03 | XMS_ITS | Encounter Summary ---
Author Organization [facility] Healthcare Address [address] [place] [address] Care Team Providers Care Director E Learning Name Role Phone Reanna Polanco RN [facility] Rohan Salvador MD Primary Care Provider Reason for Visit * Reason Comments Follow-up Encounter Details Date Type Department Care Team (Latest Contact Info) Description 05/28/2023 11:27 AM CDT - 05/28/2023 11:59 PM CDT Hospital Encounter [facility] [address] [facility] [address] [place] [address] Nancy Fernandez MD [address] [facility] [phone] [place] [address] Osteoarthritis of 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 (Primary Dx); Fibromyalgia; Muscle spasm; Chronic use of opiate drug for therapeutic purpose; Neuromuscular scoliosis of lumbar region Discharge Disposition: Discharge to home [...] you are drinking? Patient does not drink 3 Q3: How often do you have si [...] money to get more. Never true 05/28/2023 Comments No Sex and Gender Information Value Date Recorded Sex Assigned at Not on file Legal Sex Female 2:03 AM SUPERVISOR ESTERS AND EMULSIFIERS Gender Identity Female 08/26/2020 6:26 AM SUPERVISOR ESTERS AND EMULSIFIERS Sexual Orientation Straight 08/26/2020 6: 26 AM SUPERVISOR ESTERS AND EMULSIFIERS documented as of this encounter Discharge Instructions * Patient Instructions* Deanna Hollingsworth RN - 05/28/2023 12:00 PM CDT [facility] DISCHARGE INSTRUCTIONS MEDICATIONS: [x] Continue your current home medications Start: [] Notify your pharmacy for refill(s) 7 days before you are out of your medication. [] Opioid (Narcotic) Agreement signed and patient received copy. [] Side Effects of Opioid Medications given to patient DIET: [x] Resume normal diet [] See [facility] Post Discharge Procedure Information Sheet ACTIVITY: [x] Resume normal activity [] See [facility] Post Discharge Procedure Information Sheet REFERRALS: Physical Therapy [] [facility] ([phone]) [] [facility] ([employer]) [] [facility] ([phone]) Option 1 [] [facility] ([employer]) [] [facility] ([phone]) [x] Other: external Behavior Medicine [] Pain Psychologist, [facility] Please call to schedule appointment [phone] or [phone] Diagnostic Test(s): May get Radiographs performed in Radiation/X-Ray 6th floor, [address]. [] Please call to schedule MRI or CT scan at [phone] [] Please call to schedule EMG at [phone] EDUCATION provided on the following: [] Spinal Cord Stimulator Education and DVD. Vendor: FOLLOW UP APPOINTMENTS: [] Return as needed [x] Follow up appointment: 3 months or TPI We will contact you the next business day to obtain: [] An update on your condition [] Your Pain diary scores *Need help with Ochoat? Call [phone]. Patient provided information and repeated back with understanding. If you need to reach us: For any questions about your procedure, please call the Pain Management Center [phone] (M-F) (8am-4pm) If you need urgent attention after 5 pm and weekends: Call the [facility] Paper Bundler at [phone] and ask for the Pain Service doctor conditioner tender. documented in this encounter Medications at Time of Discharge ALPHA LIPOIC ACID ORAL Take 550 mg by mouth every morning ascorbic acid (VITAMIN C) 1,000 mg tabletIndications :Vitamin C Deficiency Take 1 tablet (1,000 mg total) by mouth every morning CALCIUM CARBONATE-VITAMIN D3 ORAL Take 1 tablet [...] Take 1 tablet by mouth nightly 11/14/2017 magnesium gluconate 200 mg tabletIndications :hypomagnesemia Take [...] by mouth once a week Sunday04/02/2020 02/26/20 24 amoxicillin (AMOXIL) 500 mg tablet/capsuleInd ications:Prophyla xis, Medical Take 4 pills 1 hour prior to procedure 4 tablet/capsul e 01/22/2023 08/29/19 24 baclofen (LIORESAL) 10 mg tablet Take 2 tablets (20 mg total) by mouth 4 (four) times a day Takes 1-2 tabs QID 240 tablet 11 12/01/2022 10/18/19 24 famotidine (PEPCID) 10 mg tablet Take 1 tablet (10 mg total) by mouth daily 09/18/19 24 HYDROcodone-aceta minophen (NORCO) 7.5-325 mg per tabletIndications :Pain Take 1 tablet by mouth every 6 (six) hours as needed for pain 90 tablet 05/09/2023 06/09/20 23 lurasidone (LATUDA) 20 mg tablet 1 tablet (20 mg total) 02/02/2023 05/26/20 24 meloxicam (MOBIC) 15 mg tablet Take 1 tablet (15 mg total) by mouth daily 30 tablet 05/09/2023 06/06/20 23 methocarbamoL (ROBAXIN) 500 mg tablet Take 2 tablets (1,000 mg total) by mouth 4 (four) times a day as needed for muscle spasms 240 tablet 2 04/13/2023 07/03/20 23 Opzelura 1.5 % cream 10/20/2022 08/29/19 24 documented as of this encounter Discharge Disposition Disposition Code Departure Means Destination Discharge to home or self care documented in this encounter Progress Notes * Nancy Fernandez MD - 05/28/2023 12:00 PM CDT Patient Name: Annette Santiago : 1960 Today's Date: 05/28/2023 PCP: Rohan Rothmna MD Referring: Olivier Marion MD Chief Complaint Patient presents with Follow-up INTERVAL HISTORY (05/28/2023): Annette Santiago returns to clinic today. She presents for ongoing management of neck and back pain. Patient has a really good summer . She has been doing stretching and exercises every morning for 45 minutes. Going to PT for her swallowing. Says she has some burning of the left shoulder/neck of increasing intensity over the past 3 months.The pain wakes her up every morning at 2am and she cannot get back to sleep. Of note, she goes to bed at 8 pm, so she is getting 6 hrs of sleep, but she notes this is not enough for her and she is concerned that poor sleep will result in fibromyalgia flare. Also complains about the right side of her jaw locking on her while eating and being very painful for the last 2-4 weeks. Says her low back pain is much improved. Pain is at left neck/shoulder, right jaw, low back. Radiation: none Numbness: none Weakness: none Pain Assessment Pain Score: 5 - Moderate pain Patient's Stated Pain Goal: 3 Pain Location: Back (Lumbar) Pain Radiating Towards: left shoulder Pain Descriptors: (aching, gnawing, burning) Pain Frequency: Frequently Pain Onset: Ongoing 02/13/2023 2:00 PM 05/21/2023 4:44 PM 05/28/2023 12:00 PM MODIFIED OSWESTRY LOW BACK PAIN QUESTIONNAIRE Section 1 - Pain Intensity 2 - Pain medication provides me with complete relief from pain 3 - Pain medication provides me with moderate relief from pain 3 - Pain medication provides me with moderate relief from pain Section 2 - Personal Care (e.g., washing, dressing) 1 - I can take care of myself normally, but it increases my pain 1 - I can take care of myself normally, but it increases my pain 1 - I can take care of myself normally, but it increases my pain Section 3 - Lifting 5 - I cannot lift or carry anything at all 3 - Pain prevents me from lifting heavy weights off the floor, but I can manage light to medium weights if they are conveniently positioned 3 - Pain prevents me from lifting heavy weights off the floor, but I can manage light to medium weights if they are conveniently positioned Section 4 - Walking 3 - Pain prevents me from walking more than 1/4 mile 2 - Pain prevents me from walking more than 1/2 mile 2 - Pain prevents me from walking more than 1/2 mile Section 5 - Sitting 3 - Pain prevents me from sitting for more than 1/2 hour 3 - Pain prevents me from sitting for more than 1/2 hour 3 - Pain prevents me from sitting for more than 1/2 hour Section 6 - Standing 4 - Pain prevents me from standing for more than 10 minutes 4 - Pain prevents me from standing for more than 10 minutes 4 - Pain prevents me from standing for more than 10 minutes Section 7 - Sleeping 1 - I can sleep well only using pain medication 2 - Even when I take medication, I sleep less than 6 hours 2 - Even when I take medication, I sleep less than 6 hours Section 8 - Social Life 2 - Pain prevents me from participating in more energetic activities (e.g.,sports, dancing) 3 - Pain prevents me from going out very often 3 - Pain prevents me from going outvery often Section 9 - Traveling 3 - My pain restricts my travel over 1 hour 3 - My pain restricts my travel over 1 hour 3 - My pain restricts my travel over 1 hour Section 10 - Employment/Homemaking 2 - I can perform most of my homemaking/job duties, but pain prevents me from performing more physically stressful activities (e.g., lifting, vacuuming) 2 - I can perform most of my homemaking/job duties, but pain prevents me from performing more physically stressful activities (e.g., lifting, vacuuming) 2 - I can perform most of my homemaking/job duties, but pain prevents me from performing more physically stressful activities (e.g., lifting, vacuuming) Modified Oswestry Low Back Pain Score 26 26 26 Percentage 52 52 52 Last visit we did the following: Medication adjustments: none Referrals: none Current Pain meds: Pain Medications baclofen (LIORESAL) 10 mg tablet Take 2 tablets (20 mg total) by mouth 4 (four) times a day Takes 1-[address] (CYMBALTA) 60 mg capsule Take 1 capsule (60 mg total) by mouth 2 (two) times a day HYDROcodone-acetaminophen (NORCO) 7.5-325 mg per tablet Take 1 tablet by mouth every 6 (six) hours as needed for pain lurasidone (LATUDA) 20 mg tablet 1 tablet (20 mg total) meloxicam (MOBIC) 15 mg tablet Take 1 tablet (15 mg total) by mouth daily methocarbamoL (ROBAXIN) 500 mg tablet Take 2 tablets (1,000 mg total) by mouth 4 (four) times a dayas needed for muscle spasms Physical Exam There were no vitals filed for this visit. There is no height or weight on file to calculate BMI. Physical Exam Vitals and nursing note reviewed. Constitutional: Appearance: Normal appearance. HENT: Head: Normocephalic. Eyes: Extraocular Movements: Extraocular movements intact. Pulmonary: Effort: Pulmonary effort is normal. Abdominal: General: Abdomen is flat. Palpations: Abdomen is soft. Musculoskeletal: General: Normal range of motion. Neurological: General: No focal deficit present. Mental Status: She is alert and oriented to person, place, and time. Tenderness to palpation of superior aspect of trapezius muscle on left 5/5 strength throughout Sensation intact to light touch upper and lower Normal gate Assessment The above note documents my personal evaluation of this patient. In addition, I have reviewed and confirmed with the patient and nurse the supportive information documented in today's scanned PatientHealth Questionnaire and Office Note. Encounter Diagnoses Name Primary? Osteoarthritis of 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 Yes Fibromyalgia Muscle spasm Neuromuscular scoliosis of lumbar region Plan Interventions: none, consider trigger point for left trapezius if other strategies not beneficial. We discussed applying heat to the area, trying massage and going to PT for strengthening and sleep position optimization. Advised patient to talk to her dentist about her jaw and possible referrals to orofacial pain specialists. Medications: no changes - asking about taking extra medication to help her sleep. Advised working on sleep hygiene, physical therapy, heat to the upper trap and other non-pharmaceutical strategies before considering additional medications. We did discuss that she can try adjusting the dosing time of her current meds to see if there is a better time to take them that would help her get through thenight. The patient shows no signs of aberrant [...] the lowest dose necessary. Chronic Opioid Therapy 05/28/2023 Current analgesics: hydrocodone/APAP 7.5/325 1 tab every 6 hrs prn Daily dose (MME): 45 Benzodiazepines: no Meds locked up: She keeps in an unmarked box in the closet and is sure to put them out of sight if anyone is coming into her home (family members, cleaning crew, etc) Plan: continue current meds for now. 3. Imaging: No further imaging needed at this current time. 4. Referral: We will refer the patient to physical therapy for evaluation and treatment as well as a home exercise program. 5. Follow-up: In 3-4 for re-evaluation of the above regimen. Or earlier for trigger point injections are desired Gabriella Jenkins MD PhD Anesthesia PGY-2 I provided this service on 05/28/2023 I saw and examed the patient by myself. I reviewed patient's chart, labs and image/result. I have reviewed the above evaluation and treatment plan withTrainee Physician Dr. Gabriella Jenkins MD PhD . I agree with the evaluation and treatment plan as above. Nancy Fernandez MD [facility] Department of Anesthesiology and Pain 3:23 PM 05/28/2023 documented in this encounter Plan of Treatment Not on file documented as of this encounter Goals Goal Patient Goal Type Associated Problems Recent Progress Patient-Stated? Author CCM Chronic Pain Care Plan Chronic Care Management Improving( 10:05 AM SUPERVISOR ESTERS AND EMULSIFIERS) No Bessy Macnuso RN Note: Problem: Chronic Pain Goals: 1. Minimize further functional decline 2. Maximize quality of life 3. Control pain Strategies: - Activity/exercise program recommendation - Conservative stepwise pain medicine strategy with multi-disciplinary approach - Recommend healthy lifestyle strategies and compensatory methods as needed documented as of this encounter Visit Diagnoses Diagnosis Osteoarthritis of 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- Primary Fibromyalgia Unspecified myalgia and myositis Muscle spasm Spasm of muscle Chronic use of opiate drug for therapeutic purpose Neuromuscular scoliosis of lumbar region documented in this encounter Care Teams Director E Learning Relationship Specialty Start Date End Date Rohan Rothman MD [address] [place] [id number] PCP - General 07/20/20 05/12/24 Reanna Polanco, RN Registered Nurse 07/07/19 documented as of this encounter
--- OUTSIDE RECORDS SUMMARY | 2024-07-28 01:03 | XMS_ITS | Encounter Summary ---
Author Organization [facility] Healthcare Address [address] [facility] [place] [address] Care Team Providers Care Implementation Project Manager Name Role Phone Reanna Polanco RN [facility] Rohan Salvador MD Primary Care Provider Encounter Details Date Type Department Care Team (Late st Contact Info) Description 03/21/2024 Orders Only [facility] Anesthesia [address] [facility] [place] [address] Nancy Fernandez MD [address] [facility] [phone] [place] [address] Social History Tobacco Use Types Packs/Day Years [...] on file Legal Sex Female 2:03 AM SLEEPING CAR PORTER Gender Identity Female 08/26/2020 6:26 AM SLEEPING CAR PORTER Sexual Orientation Straight 08/26/2020 6: 26 AM SLEEPING CAR PORTER documented as of this encounter Plan of Treatment Not on file documented as of this encounter Goals Goal Patient Goal Type Associated Problems Recent Progress Patient-Stated? Author CCM Chronic Pain Care Plan Chronic Care Management Improving( 10:05 AM SLEEPING CAR PORTER) No Bessy Mancuso, RUBIO Note: Problem: Chronic Pain Goals: 1. Minimize further functional decline 2. Maximize quality of life 3. Control pain Strategies: - Activity/exercise program recommendation - Conservative stepwise pain medicine strategy with multi-disciplinary approach - Recommend healthy lifestyle strategies and compensatory methods as needed documented as of this encounter Visit Diagnoses Not on filedocumented in this encounter Care Teams Implementation Project Manager Relationship Specialty Start Date End Date Rohan Rothman MD [address] [facility] [address] [facility] [address] [place] [address] PCP - General 07/20/20 05/12/24 Reanna Polanco RN Registered Nurse 07/07/19 documented as of this encounter
--- OUTSIDE RECORDS SUMMARY | 2024-07-28 01:03 | XMS_ITS | Encounter Summary ---
Author Organization [facility] Healthcare Address [address] [place] [address] Care Team Providers Care Meat Puller Name Role Phone Reanna Polanco RN [facility] Rohan Salvador MD Primary Care Provider Encounter Details Date Type Department Care Team (Latest Contact Info) Description 03/21/2024 9:17 PM CDT - 03/21/2024 11:59 PM CDT Hospital Encounter [facility] [address] [place] [address] Toe infection Discharge Disposition: Discharge to home or self [...] on file Legal Sex Female 2:03 AM SALES RECRUITING COORDINATOR Gender Identity Female 08/26/2020 6:26 AM SALES RECRUITING COORDINATOR Sexual Orientation Straight 08/26/2020 6: 26 AM SALES RECRUITING COORDINATOR documented as of this encounter Medications at [...] spasms 240 tablet 2 01/07/2024 04/10/20 24 mupirocin (BACTROBAN) 2 % ointmentIndicatio ns:Toe infection Apply topically 3 (three) times a day 22 g 03/21/2024 06/02/20 NON FORMULARY, FOR CLINIC ADMINISTERED MEDICATIONS ONLY, [...] Plan Chronic Care Management Improving( 10:05 AM SALES RECRUITING COORDINATOR) Bessy Gayle, RN Note: Problem: Chronic Pain Goals: 1. Minimize further functional decline 2. Maximize quality of life 3. Control pain Strategies: - Activity/exercise program recommendation - Conservative stepwise pain medicine strategy with multi-disciplinary approach - Recommend healthy lifestyle strategies and compensatory methods as needed documented as of this encounter Procedures Procedure Name Priority Date/Time Associated Diagnosis Comments AEROBIC AND ANAEROBIC CULTURE AND GRAM STAIN Routine 03/21/2024 5:00 PM CDT Toe infection documented in this encounter Results * Aerobic and anaerobic culture and gram stain Abscess Toe, great, left (03/21/2024 5:00 PM CDT) Direct Specimen Exam Stain: No polymorphonuclear leukocytes seen. No organisms seen. Comment:Testing performed by : [facility], [address] [place]., [address] Report Final Report: No growth JT FRANCOIS Comment:Testing performed by : [facility], [address] [place]., [address] Abscess (Toe, great, left) 03/21/2024 5:00 PM CDT 03/22/2024 12:58 AM CDT Narrative JT FRANCOIS - 03/25/2024 10:58 AM CDT Specimen received on an ESwab. Testing performed by [facility] ([phone]) Specimens submitted from normally sterile body sites [...] interpretive data was last revised on 2019. us [facility] MICROBIOLOGY - GENERAL O RDERABLES Final Result TJ FRANCOIS [address] [address] Department [place] [address] documented in this encounter Visit Diagnoses Diagnosis Toe infection documented in this encounter Care Teams Meat Puller Relationship Specialty Start Date End Date Rohan Rothman MD [address] [place] [address] PCP - General 07/20/20 05/12/24 Reanna Polanco RN Registered Nurse 07/07/19 documented as of this encounter
--- OUTSIDE RECORDS SUMMARY | 2024-07-28 01:03 | XMS_ITS | Encounter Summary ---
Author Organization [facility] Healthcare Address [address] [place] [address] Care Team Providers Care Bean Snapper Name Role Phone Reanna Polanco RN [facility] Rohan Salvador MD Primary Care Provider Encounter Details Date Type Department Care Team (Latest Contact Info) Description 10/18/2023 1:59 PM CDT - 10/18/2023 11:59 PM CDT Hospital Encounter [facility] [place] [facility] [address] [place] [address] Carolina Valero NP [address] [place] [address] Chronic, continuous use of opioids (Primary Dx); Osteoarthritis of 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 Discharge Disposition: Discharge to home or self [...] on file Legal Sex Female 2:03 AM BUSINESS DEVELOPMENT Gender Identity Female 08/26/2020 6:26 AM BUSINESS DEVELOPMENT Sexual Orientation Straight 08/26/2020 6: 26 AM BUSINESS DEVELOPMENT documented as of this encounter Last Filed Vital Signs Vital Sign Reading Time Taken Comments Blood Pressure 133/89 10/18/2023 2:24 PM CDT Pulse 72 10/18/2023 2:24 PM CDT Temperature 36.5 ??C (97.7 ??F) 10/18/2023 2:24 PM CD T Respiratory Rate 14 10/18/2023 2:24 PM CDT Oxygen Saturation 97% 10/18/2023 2:24 PM CDT Inhaled Oxygen Concentration - - Weight 66.2 kg (146 lb) 10/18/2023 2:24 PM CDT Height 167.6 cm (5' 6 ) 10/18/2023 2:24 PM CDT Body Mass Index 23.57 10/18/2023 2:24 PM CDT documented in this encounter Discharge Instructions * Patient Instructions* Carolina Valero NP - 10/18/2023 2:30 PM CDT 10/18/2023 Plan : Interventions: none today Medications: continue current meds for now - I have changed her baclofen pill to 20 mg tabs - only take 1 tab four times a day She could take 3 methocarbamol ( 1500 mg - four times a day if needed ) Medrol dose fish as directed - do not take meloxicam - the first 3 days of the steroid fish - take steroids with food - Chronic Opioid Therapy 10/18/23 Current analgesics: hydrocodone/APAP 7.5/325 1 tab every 6 hrs prn Daily dose (MME): 45 Benzodiazepines: no Meds locked up: She keeps in an unmarked box in the closet and is sure to put them out of sight if anyone is coming into her home (family members, cleaning crew, etc) Plan: continue current meds for now. Urine drug screen [facility] - [facility] 5. Imaging: No further imaging needed at this current time. 6 Referral: None today - continue PT 7. Follow-up: In 3mo for re-evaluation of the above regimen. 8. see her PCP / PA for the abdominal mass - right lower quad - Call as needed PAOLA Reyez-BC documented in this encounter Medications at Time [...] mouth once a week Sunday04/02/2020 02/26/20 24 baclofen (LIORESAL) 20 mg tabletIndications :Muscle Spasticity of Spinal Origin Take 1 tablet (20 mg total) by mouth 4 (four) times a day Takes 1-2 tabs QID 360 tablet 3 10/18/2023 10/23/19 24 fluconazole (DIFLUCAN) 200 mg tablet TAKE 1 [...] muscle spasms 240 tablet 2 10/16/2023 01/07/20 24 NON FORMULARY, FOR CLINIC ADMINISTERED MEDICATIONS [...] 02/26/20 24 documented as of this encounter Ordered Prescriptions Prescription Sig Dispense Quantity Refills Last Filled Start Date End Date baclofen (LIORESAL) 20 mg tabletIndications: Muscle Spasticity of Spinal Origin Take 1 tablet (20 mg total) by mouth 4 (four) times a day Takes 1-2 tabs QID 360 tablet 3 10/18/2023 10/23/2023 documented in this encounter Discharge Disposition Disposition Code Departure Means Destination Discharge to home or self care documented in this encounter Progress Notes * Carolina Valero NP - 10/18/2023 2:30 PM CDT Patient Name: Annette Camarena : 1960 Today's Date: 10/18/2023 PCP: Rohan Rothman MD Referring: Dago Gomez MD No chief complaint on file. Pain Management History ANNETTE CAMARENA is a [...] - meloxicam - Savella - excedrine migraine ([id number]) - baclofen - methocarbamol - duloxetine - [...] HEP- manual therapy, TENS, stretching, strengthening, heat Interventions: - L4, 5, S1 RFA 2013 [...] these levels, and anterolisthesis at L3-L4 level. Last visit 05/28/23 we did the following: Intervention: - none, consider trigger point for left trapezius if other strategies not beneficial. We discussed applying heat to the area, trying massage and going to PT for strengthening and sleep position optimization. Advised patient to talk to her dentist about her jaw and possible referrals to orofacial pain specialists. Medication adjustments: - no changes - asking about taking extra [...] them that would help her get through the night. Referrals: physical therapy Current Pain meds: Pain Medications baclofen [...] times a dayas needed for muscle spasms Today's Visit 10/18/2023 - NAOMIE Figueroa Today's note documents my personal evaluation of this patient. The above note documents my personalevaluation of this patient. In addition, I have reviewed and confirmed with the patient and nurse the supportive information documented in today's scanned Patient Health Questionnaire and Office Note. Annette Camarena [facility] for follow-up regarding neck and upper back- but her low back and hips - 08/09/22 - S/P cervical discectomy Modified Oswestry: Modified Oswestry Modified Oswestry Low Back Pain Score: 26 Percentage: 52 Worst Pain: 8/10 constant Radiation of pain : low back - ML out - wraps to her waist - standing , walking , flexion improves her pain - Associated signs/symptoms : her legs at night - aching - sural nerve pattern tender Any noticeable change in gait?: balance Any noticeable change in bowel or bladder function?: Any change or new type/form of saddle anesthesia?: Any adverse side effects from opioid regimen?: Any OIC? Are you taking your pain medication for pain relief only ? yes ,Per patient Are you addicted to your pain medication ? NO ,Per patient Are you taking your pain medication as prescribed ? yes ,Per patient Exercise programs: 45 minutes every day - stretching She is in PT for her jaw Psychological /Behavioral therapy: stable Current Analgesics: Pain Medications DULoxetine DR (CYMBALTA) 60 mg capsule Take [...] times a dayas needed for muscle spasms baclofen (LIORESAL) 20 mg tablet Take 1 tablet (20 mg total) by mouth 4 (four) times a day Takes 1-2 tabs QID Baclofen - 20 mg QID Duloxetine 120 mg HC/apap - 7.5/325 - three a day Meloxicam - daily - no GI distress - she takes with famotidine Methocarbamol - stagger against - baclofen - 1000 mg - QID - Past Medical Histoy Allergies Allergen Reactions Pseudoephedrine Other (See comments) Bladder spasm Decongestant Capsule Other (See comments) bladder spasms with decongestants Current Outpatient Medications on File Prior to Encounter Medication Sig Dispense Refill alendronate (FOSAMAX) 70 mg tablet Take 1 tablet (70 mg total) by mouth once a week Sunday ALPHA LIPOIC ACID ORAL Take 550 mg by mouth every morning ascorbic acid (VITAMIN C) 1,000 mg tablet Take 1 tablet (1,000 mg total) by [...] needed CBD DULoxetine DR (CYMBALTA) 60 mg capsule Take 1 capsule (60 mg total) by mouth 2 (two) times a day estradiol-norethindrone (ACTIVELLA) 1-0.5 mg per tablet Take 1 tablet by mouth nightly famotidine (PEPCID) 10 mg tablet Take 1 tablet (10 mg total) by mouth daily 30 tablet 3 fluconazole (DIFLUCAN) 200 mg tablet TAKE 1 TABLET BY MOUTH EVERY OTHER DAY FOR 3 DOSES fluconazole (DIFLUCAN) 200 mg tablet One by mouth every other day for three doses. HYDROcodone-acetaminophen (NORCO) 7.5-325 mg per tablet Take 1 tablet by mouth every 6 (six) hours as needed for pain 90 tablet 0 lurasidone (LATUDA) 20 mg tablet 1 tablet (20 mg total) magnesium gluconate 200 mg tablet Take 2.5 tablets (500 mg total) by mouth 2 (two) times a day meloxicam (MOBIC) 15 mg tablet Take 1 tablet (15 mg total) by mouth daily 30 tablet 11 methocarbamoL (ROBAXIN) 500 mg tablet Take 2 tablets (1,000 mg total) by mouth 4 (four) times a dayas needed for muscle spasms 240 tablet 2 metoprolol XL (TOPROL-XL) 25 mg extended release tablet Take 1 tablet (25 mg total) by mouth daily montelukast (SINGULAIR) 10 mg tablet Take 1 tablet (10 mg total) by mouth nightly nystatin ointment apply to external vulvar tissues twice daily. tacrolimus (PROTOPIC) 0.1 % ointment Apply topically 2 (two) times a day triamcinolone (KENALOG) 0.025 % ointment APPLY EXTERNALLY TO THE AFFECTED AREA OF VULVAR TISSUE NIGHTLY triamcinolone (KENALOG) 0.1 % ointment APPLY TO EXTERNAL VULVAR TISSUES TWICE DAILY DIRECTED zolpidem (AMBIEN) 10 mg tablet Take 1 tablet (10 mg total) by mouth nightly [DISCONTINUED] baclofen (LIORESAL) 10 mg tablet Take 2 tablets (20 mg total) by mouth 4 (four) times a day Takes 1-2 tabs QID 240 tablet 11 NON FORMULARY, FOR CLINIC ADMINISTERED MEDICATIONS ONLY, (not in database) 1 each once Estrogen / testosterone cream - compounded No current facility-administered medications on file prior to encounter. Patient Active Problem List Diagnosis Osteoarthritis of 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 Shoulder pain Pain of lumbar facet joint Low back pain Arthralgia of hip High risk medication use Generalized osteoarthritis Fibromyalgia Encounter for preventive health examination Depression Osteoarthritis of cervical spine Elevated liver enzymes Sacroiliitis (HCC) Cervicalgia Chronic use of opiate drug for therapeutic purpose Muscle spasm Other secondary scoliosis, lumbar region Sacroiliac joint dysfunction Spinal stenosis of cervical region Cervical spinal stenosis Osteoporosis GERD (gastroesophageal reflux disease) S/P cervical discectomy Cervical post-laminectomy syndrome Family History Problem Relation Age of Onset Hypertension Mother Arthritis Mother Heart failure Mother Family history of congestive heart failure - (Added by TW Conv) COPD Mother Depression Mother Kidney disease Father Family history of kidney disease - (Added by TW Conv) Stroke Father Family history of cerebrovascular accident - (Added by TW Conv) Heart disease Maternal Grandfather Celiac disease Son Family history of celiac disease - (Added by TW Conv) Allergy (severe) Son Arthritis Mother's Sister Arthritis Mother's Brother Depression Mother's Brother Anesthesia problems Neg Hx Social History Tobacco Use Smoking status: Former Current packs/day: 0.00 Average packs/day: 1 pack/day for 5.0 years (5.0 ttl pk-yrs) Types: Cigarettes Start date: 11/27/1978 Quit date: 09/28/1983 Years since quittin.0 Smokeless tobacco: Never Substance and Sexual Activity Drug use: Not Currently Types: Marijuana Comment: CBD Oil Sexual activity: Not Currently Partners: Male control/protection: Post-menopausal Alcohol Use: Not At Risk (05/28/2023) AUDIT-C Frequency of Alcohol Consumption: Never Average Number of Drinks: Patient does not drink Frequency of Binge Drinking: Never Review of Systems Constitutional: Positive for activity change. Respiratory: Negative. Cardiovascular: Negative. Gastrointestinal: She has abnormal mass - in her right lower abd -bulbous - I could feel air as I was pushing - it didn't reduce Genitourinary: Negative. Musculoskeletal: Positive for arthralgias, back pain, gait problem, myalgias, neck pain and neck stiffness. Skin: Negative. Psychiatric/Behavioral: Positive for sleep disturbance. Objective Physical Exam Vitals: 10/18/23 1424 BP: 133/89 Pulse: 72 Resp: 14 Temp: 97.7 ??F (36.5 ??C) SpO2: 97% Weight: 66.2 kg (146 lb) Height: 167.6 cm (5' 6 ) Body mass index is 23.57 kg/m??. CONSTITUTIONAL: no acute distress, alert and oriented HEENT: Normocephalic RESPIRATORY:unlabored breathing. No cough or secretions NEUROLOGIC EXAM: Speech fluent and appropriate. PSYCHIATRIC: Oriented X3, memory intact, and alert. Normal insight and judgement. Normal mood and affect. She has a mass - in her right lower abdomen - actually could feel air as I was pushing , not reducible - she needs to see her PCP Please check the appropriate box(es) and fill in blanks as needed. Musculoskeletal: (Check all that apply) Negative/NO Positive/YES Other Information (eg. Right vs. left) Cervical Spine Spurling???s sign [] [] Decreased range of motion [] [] Cervical spine tenderness [] [] Paraspinal muscle spasm [] [] Facet loading [] [] Thoracic Spine Thoracic spine tenderness [] [] Paraspinal muscle tenderness [] [] Kyphosis or scoliosis [] [] Trigger points [] [] Lumbar Spine Lumbar spine tenderness [] [x] Lordosis or scoliosis [] [x] Scoliosis Paraspinal muscle tenderness [] [x] Paraspinal muscle spasm [] [] Straight Leg raise/Jerod???s sign/ SI thrust / Gaenslens test [x] [] Sacroiliac joints compression [x] [] Facet loading [x] [] Right restricted but not painful Range of motion decreased [] [x] Flexion improves LBP Extension worsens pain Nursing note and vitals reviewed. Lab/Radiology/Diagnostic Review: Last CMP 2022 GFR > 90 Assessment Encounter Diagnoses Name Primary? Chronic, continuous use of opioids Yes Osteoarthritis of 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 Discussion: Analgesics -The patient shows no signs of aberrant drug use. We discussed appropriate use of opioid medications and advised the patient not to take other sedating medications (e.g. Benzodiazepines) with the opioids at the same time. We also advised not to drive under the influence of opioid medications if experiencing any sedative effects . We advised patient store opioids in a locked container. We educated the patient on the risks of prolonged opioid use (e.g. side effects, tolerance, physical dependence, addiction, hyperalgesia, hormone abnormalities, respiratory depression, decreased mental /motor response, increased risk for injury) and recommend that she/ he try to minimize her /his dose to the lowest dose necessary. Pt verbalized understanding. Injection therapies: - none Physical therapy/HEP: - reviewed exercise programs in detail, encouraged consistent use. Psychological/behavioral medicine: - stable Surgical intervention: -none Orders: Orders Placed This Encounter Pain Management Profile Standing Status: Future Standing Expiration Date: 10/17/2024 baclofen (LIORESAL) 20 mg tablet Sig: Take 1 tablet (20 mg total) by mouth 4 (four) times a day Takes 1-2 tabs QID Dispense: 360 tablet Refill: 3 Order Specific Question: Collaborating provider? (advanced practice providers only) Answer: DAGO GOMEZ [[id number]] 10/18/2023 Plan : Interventions: none today Medications: continue current meds for now - I have changed her baclofen pill to 20 mg tabs - only take 1 tab four times a day She could take 3 methocarbamol ( 1500 mg - four times a day if needed ) Medrol dose fish as directed - do not take meloxicam - the first 3 days of the steroid fish - take steroids with food - - I do not recommend increase in opioid dosing , upon further thought, until her abdominal mass is fully evaluated we should not use steroids . Steroids mask pain and infection , and since I think that its abdominal wall hernia Chronic Opioid Therapy 10/18/23 Current analgesics: hydrocodone/APAP 7.5/325 1 tab every 6 hrs prn Daily dose (MME): 45 Benzodiazepines: no Meds locked up: She keeps in an unmarked box in the closet and is sure to put them out of sight if anyone is coming into her home (family members, cleaning crew, etc) Plan: continue current meds for now. Urine drug screen [facility] - pending 5. Imaging: No further imaging needed at this current time. 6 Referral: None today - continue PT 7. Follow-up: In 3mo for re-evaluation of the above regimen. 8. see her PCP / PA for the abdominal mass - right lower quad - Call as needed PAOLA Reyez- On Today's Visit 10/18/2023 , time spent on evaluation includes: 0 minutes spent prior to visit in chart review and preparation, review of medical records [id number] minutes spent in [id number] time with patient during the evaluation 0 minutes spent after the visit including ordering prescription(s), ordering diagnostic test(s), and chart completion after documentation 40 TOTAL time spent on evaluation on Today's Visit 10/18/2023 * Modesta Mary RN - 10/18/2023 2:30 PM CDT 10/18/23 2:56 PM Medication/Dose/Frequency:HYDROcodone-acetaminophen (NORCO) 7.5-325 mg per tablet Take 1 tablet by mouth every 6 (six) hours as needed for pain Date and time of Last Dose: 10/18/2023 @ 1345 documented in this encounter Miscellaneous Notes * Addendum Note - Modesta Mary RN - 10/18/2023 2:30 PM CDT Encounter addended by: Modesta Mary, RUBIO on: 10/18/2023 3:48 PM Actions taken: Clinical Note Signed, Specialty comments modified * Addendum Note - Carolina Valero NP - 10/18/2023 2:30 PM CDTEncounter addended by: Carolina Valero NP on: 10/19/2023 11:11 AM Actions taken: Clinical Note Signed * Addendum Note - Sandrita Mariano - 10/18/2023 2:30 PM CDTEncounter addended by: Sandrita Mariano on: 10/19/2023 5:18 PM Actions taken: Charge Capture section accepted documented in this encounter Plan of Treatment Not on file documented as of this encounter Goals Goal Patient Goal Type Associated Problems Recent Progress Patient-Stated? Author CCM Chronic Pain Care Plan Chronic Care Management Improving( 10:05 AM BUSINESS DEVELOPMENT) No Bessy Mancuso, RUBIO Note: Problem: Chronic Pain Goals: 1. Minimize further functional decline 2. Maximize quality of life 3. Control pain Strategies: - Activity/exercise program recommendation - Conservative stepwise pain medicine strategy with multi-disciplinary approach - Recommend healthy lifestyle strategies and compensatory methods as needed documented as of this encounter Visit Diagnoses Diagnosis Chronic, continuous use of opioids- Primary Osteoarthritis of 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 documented in this encounter Discontinued Medications Medication Sig Discontinue Reason Start Date End Da te baclofen (LIORESAL) 10 mg tablet Take 2 tablets (20 mg total) by mouth 4 (four) times a day Takes 1-2 tabs QID Reorder 12/01/2022 10/18/2023 documented as of this encounter Historical Medications * This list may reflect changes made after this encounter. calcium carbonate (OS-LILIANE) 1,500 mg (600 mg elemental) tablet Take 1,200 mg by mouth 3 (three) times a day with meals NON FORMULARY, FOR CLINIC ADMINISTERED MEDICATIONS ONLY, (not in database) 1 each once Estrogen / testosterone cream - compounded 4 fluconazole (DIFLUCAN) 200 mg tablet One by mouth every other day for three doses. 08/23/2023 4 triamcinolone (KENALOG) 0.1 % ointment APPLY TO EXTERNAL VULVAR TISSUES TWICE DAILY DIRECTED 08/15/2023 4 fluconazole (DIFLUCAN) 200 mg tablet TAKE 1 TABLET BY MOUTH EVERY OTHER DAY FOR 3 DOSES 08/23/2023 4 tacrolimus (PROTOPIC) 0.1 % ointment Apply topically 2 (two) times a day 09/04/2023 4 triamcinolone (KENALOG) 0.025 % ointment APPLY EXTERNALLY TO THE AFFECTED AREA OF VULVAR TISSUE NIGHTLY 10/04/2023 4 added in this encounter Care Teams Bean Snapper Relationship Specialty Start Date End Date Rohan Rothman MD [address] [facility] [address] [place] [address] PCP - General 07/20/20 05/12/24 Reanna Polanco RN Registered Nurse 07/07/19 documented as of this encounter
--- OUTSIDE RECORDS SUMMARY | 2024-07-28 01:03 | XMS_ITS | Encounter Summary ---
Author Organization [facility] Healthcare Address [address] [place] [address] Care Team Providers Care Senior Mortgage Loan Processor Name Role Phone Reanna Polanco RN [facility] Rohan Salvador MD Primary Care Provider Reason for Visit * Reason Onset Date Comments Med Management 11/02/2023 Encounter Details Date Type Department Care Team (Late st Contact Info) Description 11/02/2023 Telephone [facility] [place] [facility] [address] [facility] [address] [facility] [address] [place] [address] Carolnia Valero, NAOMIE [address] [place] [address] Med Management Social History Tobacco Use Types Packs/Day Years [...] on file Legal Sex Female 2:03 AM HOME ECONOMIST Gender Identity Female 08/26/2020 6:26 AM HOME ECONOMIST Sexual Orientation Straight 08/26/2020 6: 26 AM HOME ECONOMIST documented as of this encounter Miscellaneous Notes * Telephone Encounter - Idania Roman RN - 11/02/2023 12:02 PM CDT Returned call to [facility] and clarified baclofen RX is for Bacofen 20 mg, take 1 tablet QID for muscle spacticity. #360. 2 refills. E Commerce Developer read back the RX accurately. documented in this encounter Plan of Treatment Not on file documented as of this encounter Goals Goal Patient Goal Type Associated Problems Recent Progress Patient-Stated? Author CCM Chronic Pain Care Plan Chronic Care Management Improving( 10:05 AM HOME ECONOMIST) No Bessy Mancuso, RN Note: Problem: Chronic Pain Goals: 1. Minimize further functional decline 2. Maximize quality of life 3. Control pain Strategies: - Activity/exercise program recommendation - Conservative stepwise pain medicine strategy with multi-disciplinary approach - Recommend healthy lifestyle strategies and compensatory methods as needed documented as of this encounter Visit Diagnoses Not on filedocumented in this encounter Care Teams Senior Mortgage Loan Processor Relationship Specialty Start Date End Date Rohan Rothman MD [address] [place] [address] PCP - General 07/20/20 05/12/24 Reanna Polanco RN Registered Nurse 07/07/19 documented as of this encounter
--- OUTSIDE RECORDS SUMMARY | 2024-07-28 01:03 | XMS_ITS | Encounter Summary ---
Author Organization [facility] Healthcare Address [address] [place] [address] Care Team Providers Care Space Planner Name Role Phone Reanna Polanco RN [facility] Rohan Salvador MD Primary Care Provider Encounter Details Date Type Department Care Team (Latest Contact Info) Description 11/21/2023 11:56 AM CDT - 11/21/2023 11:59 PM CDT Hospital Encounter [facility] [address] [place] [id number] Olivier Marion MD [address] [facility] [address] [place] [address] Fusion of spine of cervical region Discharge Disposition: Discharge to home or [...] on file Legal Sex Female 2:03 AM FACILITY MECHANIC Gender Identity Female 08/26/2020 6:26 AM FACILITY MECHANIC Sexual Orientation Straight 08/26/2020 6: 26 AM FACILITY MECHANIC documented as of this encounter Medications at [...] QID 360 tablet 3 10/23/2023 03/20/20 24 fluconazole (DIFLUCAN) 200 mg tablet TAKE 1 TABLET BY MOUTH EVERY OTHER DAY FOR 3 DOSES 08/23/2023 02/26/20 24 fluconazole (DIFLUCAN) 200 mg tablet One by mouth every other day for three doses. 08/23/2023 02/26/20 24 HYDROcodone-aceta minophen (NORCO) 7.5-325 mg per tabletIndications :Pain Take 1 tablet by mouth every 6 (six) hours as needed for pain 90 tablet 11/06/2023 12/03/19 24 lurasidone (LATUDA) 20 mg tablet 1 [...] VULVAR TISSUES TWICE DAILY DIRECTED 08/15/2023 02/26/20 documented as of this encounter Discharge Disposition Disposition Code Departure Means Destination Discharge to home or self care documented in this encounter Plan of Treatment Not on file documented as of this encounter Goals Goal Patient Goal Type Associated Problems Recent Progress Patient-Stated? Author CCM Chronic Pain Care Plan Chronic Care Management Improving( 10:05 AM FACILITY MECHANIC) No Bessy Mancuso RN Note: Problem: Chronic Pain Goals: 1. Minimize further functional decline 2. Maximize quality of life 3. Control pain Strategies: - Activity/exercise program recommendation - Conservative stepwise pain medicine strategy with multi-disciplinary approach - Recommend healthy lifestyle strategies and compensatory methods as needed documented as of this encounter Procedures Procedure Name Priority Date/Time Associated Diagnosis Comments XR SPINE CERVICAL W FLEXION AND EXTENSION 4 VIEWS Schedule Routine, Read Routine (OP Routine) 11/21/2023 12:04 PM CDT Fusion of spine of cervical region documented in this encounter Results * XR Spine Cervical [...] Diagnoses Diagnosis Fusion of spine of cervical region documented in this encounter Care Teams Space Planner Relationship Specialty Start Date End Date Rohan Rothman MD [address] [facility] [address] [place] [address] PCP - General 07/20/20 05/12/24 Reanna Polanco, RN Registered Nurse 07/07/19 documented as of this encounter
--- OUTSIDE RECORDS SUMMARY | 2024-07-28 01:03 | XMS_ITS | Encounter Summary ---
Author Organization [facility] Healthcare Address [address] [place] [address] Care Team Providers Care Caseworker Intake Name Role Phone Reanna Polanco RN [facility] Rohan Salvador MD Primary Care Provider Reason for Referral * MRI/CAT/PET Scan (Routine) - Closed Specialty Diagnoses / Procedures Referred By Contac t Referred To Contact Radiology Diagnoses Other spondylosis with radiculopathy, lumbar region Procedures MRI Lumbar Spine WO Contrast Nancy Fernandez MD [id number] [place] [address] Phone: tel: fax: [address] [phone] Referral ID Status Reason Start Date Expiration Date Visits Re quested Visits Authorized [id number] Closed 01/08/2024 07/06/2024 1 1 Reason for Visit * Reason Comments generalized pain Low back and bilater al hipsHeadNeck and shouldersLeft lower leg--crampingNew pain:left rib/under breast--sharp pain Encounter Details Date Type Department Care Team (Latest Contact Info) Description 11/27/2023 12:58 PM CDT - 11/27/2023 11:59 PM CDT Hospital Encounter [facility] [address] [facility] [address] [place] [address] Nancy Fernandez MD [address] [facility] [id number] [place] [address] Other spondylosis with radiculopathy, lumbar region (Primary Dx); Chronic use of opiate drug for therapeutic [...] on file Legal Sex Female 2:03 AM CARE AID Gender Identity Female 08/26/2020 6:26 AM CARE AID Sexual Orientation Straight 08/26/2020 6: 26 AM CARE AID documented as of this encounter Last Filed Vital Signs Vital Sign Reading Time Taken Comments Blood Pressure 135/90 11/27/2023 1:29 PM CDT Pulse 118 11/27/2023 1:29 PM CDT Temperature 36.6 ??C (97.8 ??F) 11/27/2023 1:29 PM CD T Respiratory Rate 16 11/27/2023 1:29 PM CDT Oxygen Saturation 96% 11/27/2023 1:29 PM CDT Inhaled Oxygen Concentration - - Weight - - Height - - Body Mass Index - - documented in this encounter Discharge Instructions * Patient Instructions* Tona Neely RN - 11/27/2023 1:30 PM CDT [facility] ([facility]) DISCHARGE INSTRUCTIONS DIET: [x] Resume normal diet [] See [facility] Post Discharge Procedure Information Sheet ACTIVITY: [x] Resume normal activity [] See [facility] Post Discharge Procedure Information Sheet REFERRALS: Diagnostic Test(s): [x] Please call to schedule MRI or CT scan at [phone] FOLLOW UP APPOINTMENTS: [] Return as needed [x] Follow up appointment: 3 months We will contact you the next business day to obtain: [] An update on your condition [] Your Pain diary scores [] Procedure at your next visit : INSTRUCTIONS before your next procedure: [] See [facility] Pre-Procedure Information Sheet [] Do not eat or drink for six (6) hours before the time/date of the procedure. [] Inquire with your prescribing provider if ok to hold blood thinner for ( ) days before procedure. [] Blood work required 2 hours before procedure: [] Family Lawyer needed for next procedure [] Pre Procedure instructions will be sent through [employer] or by phone two working days prior to procedure. *Need help with [employer]? Call [phone]. Patient provided information and repeated back with understanding. If you need to reach us: For any questions about your procedure, please call the Pain Management Center [phone] (M-F) (8am-4pm) If you need urgent attention after 5 pm and weekends: Call the [facility] Plug at [phone] and ask for the Pain Service doctor health communications specialist. documented in this encounter Medications at Time [...] needed for pain 90 tablet 11/06/2023 12/03/19 lurasidone (LATUDA) 20 mg tablet 1 tablet [...] OF VULVAR TISSUE NIGHTLY 10/04/2023 06/02/20 24 triamcinolone (KENALOG) 0.1 % ointment APPLY TO EXTERNAL VULVAR TISSUES TWICE DAILY DIRECTED 08/15/2023 02/26/20 24 documented as of this encounter Discharge Disposition Disposition Code Departure Means Destination Discharge to home or self care documented in this encounter Progress Notes * Nancy Fernandez MD - 11/27/2023 1:30 PM CDT Patient Name: Katrina Camarena : 1960 Today's Date: 11/27/2023 PCP: Rohan Rothman MD Referring: Nancy Fernandez MD Chief Complaint Patient presents with generalized pain Low back and bilateral hips Head Neck and shoulders Left lower leg--cramping New pain:left rib/under breast--sharp pain Pain Management History KATRINA CAMARENA is a [...] - meloxicam - Savella - excedrine migraine ([id number]) - baclofen - methocarbamol - duloxetine - [...] and anterolisthesis at L3-L4 level. INTERVAL HISTORY (11/27/2023): Katrina Camarena returns to clinic today. She presents for ongoing management of low back and leg pain. Pain is at low back. Radiation: lateral hips and posterior thighs intermittently- cramping. Worsening cramping lateral lower left leg. Seems more like a cramp than pain radiating from the low back but pain is consistent and worsening. Numbness: none Weakness: none Remote history of left tibial fx in 1977- skiing accident. Also with newer midback pain with radiation under the breast. Neck and upper back, upper trap pain. Still doing her HEP. Meds help with a normal level of pain but when things are flared up it is less effective. Hydrocodone/APAP works for her but she wakes up at 2 am in pain after 4-6 hrs of sleep. She takes ambien to help her get to sleep. Pain Assessment Pain Score: 8 Pain Location: (neck and shoulders, lower back and hips) Pain Descriptors: Aching, Dull, Nagging Pain Frequency: Constant/continuous 02/13/2023 2:00 PM 05/21/2023 4:44 PM 05/28/2023 12:00 PM 08/22/2023 8:26 PM 10/18/2023 2:00 PM 11/26/2023 10:58 PM MODIFIED OSWESTRY LOW BACK PAIN QUESTIONNAIRE [...] provides me with moderate relief from pain 4 - Pain medication provides me with little relief from pain Section 2 - Personal [...] myself normally, but it increases my pain 2 - It is painful to take care of myself, and I am slow and careful Section 3 - Lifting 5 - I [...] medium weights if they are conveniently positioned 2 - Pain prevents me from lifting heavy weights off the floor, but I can manage if the weights are conveniently positioned (e.g., on a table) 2 - Pain prevents me from lifting heavy weights off the floor, but I can manage if the weights are conveniently positioned (e.g., on a table) 4 - I can lift only very light weights Section 4 - Walking 3 - Pain prevents me from walking more than 1/4 mile 2 - Pain prevents me from walking more than 1/2 mile 2 - Pain prevents me from walking more than 1/2 mile 3 - Pain prevents mefrom walking more than 1/4 mile 3 - Pain prevents me from walking more than 1/4 mile 3 - Pain prevents me from walking more than 1/4 mile Section 5 - Sitting 3 - Pain prevents me from sitting for more than 1/2 hour 3 - Pain prevents me from sitting for more than 1/2 hour 3 - Pain prevents me from sitting for more than 1/2 hour 2 - Painprevents me from sitting for more than 1 hour 2 - Pain prevents me from sitting for more than 1 hour 3 - Pain prevents me from [...] 4 - Pain prevents me from standing formore than 10 minutes 4 - Pain prevents [...] Pain prevents me from going outvery often 3 - Pain prevents me from going out very often 3 - Pain prevents me from going out very often 5 - I have hardly any social life because of pain Section 9 - Traveling 3 - My pain restricts my travel over 1 hour 3 - My pain restricts my travel over 1 hour 3 - My pain restricts my travel over 1 hour 3 - My pain restricts my travel over 1 hour 3- My pain restricts my travel over 1 hour 4 - My pain restricts my travel to short necessary journeys under 1/2 hour Section 10 - Employment/Homemaking 2 - [...] more physically stressful activities (e.g., lifting, vacuuming) 3 - Pain prevents me from doing anything but light duties 3 - Pain prevents me from doing anything but light duties 3 - Pain prevents me from doing anything but light duties Modified Oswestry Low Back Pain Score 26 26 26 26 26 34 Percentage 52 52 52 52 52 68 Last visit we did the following: Intervention: none Medication adjustments: continue current meds for now - I [...] I think that its abdominal wall hernia Referrals: cont physical therapy Current Pain meds: Pain Medications [...] tablet (40 mg total) by mouth daily methocarbamoL (ROBAXIN) 500 mg tablet Take 2 tablets (1,000 mg total) by mouth 4 (four) times a dayas needed for muscle spasms lurasidone (LATUDA) 20 mg tablet 1 tablet (20 mg total) meloxicam (MOBIC) 15 mg tablet Take 1 tablet (15 mg total) by mouth daily Physical Exam Vitals: 11/27/23 1329 BP: 135/90 Pulse: 118 Resp: 16 Temp: 97.8 ??F (36.6 ??C) TempSrc: Temporal SpO2: 96% There is no height or weight on file to calculate BMI. Physical Exam Constitutional: General: She is not in acute distress. Appearance: She is well-developed. HENT: Mouth/Throat: Comments: Voice normal Musculoskeletal: Comments: Scoliotic deformity of lumbar spine Minimal lumbar paraspinal TTP No TTP over SI bilateral Skin: General: Skin is warm and dry. Neurological: Mental Status: She is alert and [...] and Office Note. Encounter Diagnoses Name Primary? Other spondylosis with radiculopathy, lumbar region Yes Chronic use of opiate drug for therapeutic purpose Other secondary scoliosis, lumbar region Plan Interventions: consider bilateral (vs left-only) L4-5 TFESI based on pain symptoms, will review MRIfirst. Medications: The patient shows no signs of aberrant [...] the lowest dose necessary. Chronic Opioid Therapy 11/27/2023 Current analgesics: hydrocodone/APAP 7.5/325 1 tab every 6 hrs prn - takes TID (#90 tabs/mo) - toldher it would be ok to take another hydrocodone/APAP at night when needed. Will see how she does with this and will refill early vs change Rx to #100 tabs/mo. Daily dose (MME): 22.5mg MME Benzodiazepines: no Meds locked up: She keeps in an unmarked box in the closet and is sure to put them out of sight if anyone is coming into her home (family members, cleaning crew, etc) Plan: continue current meds for now. Urine drug screen [facility] - pending 3. Imaging: No further imaging needed at this current time. updated lumbar MRI ordered today 4. Referral: No referrals needed at this current time. she is going to try to get in with a massagetherapist 5. Follow-up: At the next possible visit for the procedure listed above Nancy Fernandez MD documented in this encounter Plan of Treatment Not on file documented as of this encounter Goals Goal Patient Goal Type Associated Problems Recent Progress Patient-Stated? Author CCM Chronic Pain Care Plan Chronic Care Management Improving( 10:05 AM CARE AID) No Bessy Mancuso RN Note: Problem: Chronic Pain Goals: 1. Minimize further functional decline 2. Maximize quality of life 3. Control pain Strategies: - Activity/exercise program recommendation - Conservative stepwise pain medicine strategy with multi-disciplinary approach - Recommend healthy lifestyle strategies and compensatory methods as needed documented as of this encounter Results * MRI Lumbar Spine WO Contrast (01/25/2024 3:40 PM CDT) Anatomical Region Laterality Modality Spine N/A Magnetic Resonan ce 01/25/2024 5:05 PM CDT Impressions 01/25/2024 6:06 PM CDT Levoscoliosis of the lumbar spine, centered at L2-L3. ??Moderate degenerative changes of the lumbar spine as described in detail above. ??Unchanged left perineural cyst at L1-L2. Dictated by: Toby Rouse MD The radiology attending physician has personally reviewed this study, and had reviewed and/or edited this written report and agrees with it. Electronically signed by: Osmin Acosta M.D. Narrative 01/25/2024 6:06 PM CDT EXAMINATION: Magnetic resonance imaging (MRI) of the lumbar spine without contrast HISTORY: 63-year-old woman with lumbar radiculopathy with persistent symptoms despite conservative management. ??Patient is being considered for L4-L5 surgery. TECHNIQUE: Multiplanar multi-weighted MRI of the lumbar spine was performed without intravenous contrast using the standard protocol. COMPARISON: Prior lumbar spine dated 11/07/2020 FINDINGS: Levoscoliosis of the lumbar spine centered at L2-L3. ??There is left lateral translation of L2 on L3 and L3 on L4. ??Grade 1 anterolisthesis of L3 on L4. ??Schmorl's node noted at L2 inferior endplate. ??Endplate erosions noted at at L3-4 and L4-L5. ??Mixed endplate changes at L3-L4 and Modic 1 type endplate changes at L4-L5. S1 vertebral hemangioma. There is multilevel degenerative disease of the lumbar spine with disc desiccation and intervertebral disc height loss, most pronounced at L3-L4 and L4-L5. There are no compression fractures. The conus medullaris terminates at the level of L1-L2. The distal spinal cord signal intensity is normal. There are no annular fissures identified. Limited views of the abdomen and pelvis show no soft tissue abnormality. The aorta is normal. L1-L2: Mild disc bulge. ??Ligamentum flavum infolding. There is mild bilateral facet arthropathy. There is no neuroforaminal stenosis. There is no spinal canal stenosis. There is a 1 cm left perineural cyst that is unchanged since October 2020 exam. L2-L3: The disc is normal in configuration. There is moderate right facet arthropathy. There is mild to moderate right neuroforaminal stenosis. There is mild spinal canal stenosis. L3-L4: Asymmetric disc bulge There is moderate bilateral facet arthropathy. There is mild to moderate right and mild left neuroforaminal stenosis. There is mild spinal canal stenosis. L4-L5: Diffuse disc bulge There is mild to moderate left and mild right facet arthropathy. There is mild right and moderate left neuroforaminal stenosis. There is mild to moderate spinal canal stenosis. ??Mild narrowing of the left lateral recess. L5-S1: Mild disc bulge There is mild to moderate left and moderate right facet arthropathy. There is mild bilateral neuroforaminal stenosis. There is no spinal canal stenosis. Procedure Note Osmin Acosta MD - 01/25/2024 EXAMINATION: Magnetic resonance imaging (MRI) of the lumbar spine without contrast HISTORY: 63-year-old woman with lumbar radiculopathy with persistent symptoms despite conservative management. Patient is being considered for L4-L5 surgery. TECHNIQUE: Multiplanar multi-weighted MRI of the lumbar spine was performed without intravenous contrast using the standard protocol. COMPARISON: Prior lumbar spine dated 11/07/2020 FINDINGS: Levoscoliosis of the lumbar spine centered at L2-L3. There is left lateral translation of L2 on L3 and L3 on L4. Grade 1 anterolisthesis of L3 on L4. Schmorl's node noted at L2 inferior endplate. Endplate erosions noted at at L3-4 and L4-L5. Mixed endplate changes at L3-L4 and Modic 1 type endplate changes at L4-L5. S1 vertebral hemangioma. There is multilevel degenerative disease of the lumbar spine with disc desiccation and intervertebral disc height loss, most pronounced at L3-L4 and L4-L5. There are no compression fractures. The conus medullaris terminates at the level of L1-L2. The distal spinal cord signal intensity is normal. There are no annular fissures identified. Limited views of the abdomen and pelvis show no soft tissue abnormality. The aorta is normal. L1-L2: Mild disc bulge. Ligamentum flavum infolding. There is mild bilateral facet arthropathy. There is no neuroforaminal stenosis. There is no spinal canal stenosis. There is a 1 cm left perineural cyst that is unchanged since October 2020 exam. L2-L3: The disc is normal in configuration. There is moderate right facet arthropathy. There is mild to moderate right neuroforaminal stenosis. There is mild spinal canal stenosis. L3-L4: Asymmetric disc bulge There is moderate bilateral facet arthropathy. There is mild to moderate right and mild left neuroforaminal stenosis. There is mild spinal canal stenosis. L4-L5: Diffuse disc bulge There is mild to moderate left and mild right facet arthropathy. There is mild right and moderate left neuroforaminal stenosis. There is mild to moderate spinal canal stenosis. Mild narrowing of the left lateral recess. L5-S1: Mild disc bulge There is mild to moderate left and moderate right facet arthropathy. There is mild bilateral neuroforaminal stenosis. There is no spinal canal stenosis. IMPRESSION: Levoscoliosis of the lumbar spine, centered at L2-L3. Moderate degenerative changes of the lumbar spine as described in detail above. Unchanged left perineural cyst at L1-L2. Dictated by: Toby Rouse MD The radiology attending physician has personally reviewed this study, and had reviewed and/or edited this written report and agrees with it. Electronically signed by: Osmin Acosta M.D. Nancy Fernandez MD IMG MRI PROCEDURES Final R esult documented in this encounter Visit Diagnoses Diagnosis Other spondylosis with radiculopathy, lumbar region- Primary Chronic use of opiate drug for therapeutic purpose Other secondary scoliosis, lumbar region Other spondylosis with radiculopathy, lumbar region documented in this encounter Historical Medications * This list may reflect changes made after this encounter. lurasidone (LATUDA) 40 mg tablet Take 1 tablet (40 mg total) by mouth daily 60 mg QD 10/24/2023 05/26/2024 added in this encounter Care Teams Caseworker Intake Relationship Specialty Start Date End Date Rohan Rothman MD [address] [place] [address] PCP - General 07/20/20 05/12/24 Reanna Polanco RN Registered Nurse 07/07/19 documented as of this encounter
--- OUTSIDE RECORDS SUMMARY | 2024-07-28 01:03 | XMS_ITS | Referral Summary ---
Author Organization [facility] Address [address] [place] [address] Care Team Providers Care Inductor Tester Name Role Phone Reanna Polanco RN [facility] Peyman Carvajal MD Primary Care Provider Encounters Date Type Department Care Team Description 07/18/2024 10:00 AM WIRE WEAVER HELPER Therapy [facility] Physical Therapy [address] [place] [id number] Lyle Watson DPT Cervicalgia (Primary Dx) 07/01/2024 Orders Only [facility] [address] [facility] [address] [place] [id number] Nancy Fernandez MD 2024 9:51 AM WIRE WEAVER HELPER - 2024 11:59 PM WIRE WEAVER HELPER Hospital Encounter [facility] [address] [facility] [address] [place] [address] Nancy Fernandez MD Myalgia (Primary Dx); Bilateral low back pain without sciatica, unspecified chronicity; Muscle spasm Discharge Disposition: Discharge to home or self care 05/26/2024 1:54 PM CDT - 05/26/2024 11:59 PM CDT Hospital Encounter [facility] [address] [place] [address] Rotoscoliosis Discharge Disposition: Discharge to home or self care 05/26/2024 11:50 AM CDT - 05/26/2024 11:59 PM CDT Hospital Encounter [facility] Medicine [address] 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 [address]th [place] [address] [place] [address] Moncho Rendon MD Cervicalgia (Primary Dx); Fusion of spine of cervical region; Dysphagia, unspecified type from Last 3 Months Allergies Active Allergy [...] tablet 3 07/01/20 24 Active back brace [facility]- back brace for scoliosis 1 each 07/01/20 [...] (10/18/2023): Added automatically from request for surgery [id number] Added automatically from request for surgery [id number] Rotoscoliosis 11/30/2020 Sacroiliac joint dysfunction 11/30/2020 Muscle [...] 06/21/2010 Encounter for preventive health examination 04/29 Immunizations Name Administration Dates Next Due Influenza, Quadrivalent, Spl it, Intramuscular 05/05/2019 Influenza, Quadrivalent, Spl it, Preservative Free, Intramuscular 05/02/2021,05/04/2020,04/18/2018 Influenza, Trivalent, IM (MDV) 06/22/2014 Influenza, Unspecified 04/28/2022 Tdap 04/18/2018 Social History Tobacco Use Types Packs/Day Years [...] on file Legal Sex Female 2:03 AM WIRE WEAVER HELPER Gender Identity Female 08/26/2020 6:26 AM WIRE WEAVER HELPER Sexual Orientation Straight 08/26/2020 6: 26 AM WIRE WEAVER HELPER Last Filed Vital Signs Vital Sign Reading Time Taken Comments Blood Pressure 137/86 2024 10:02 AM WIRE WEAVER HELPER Pulse 68 2024 10:02 AM WIRE WEAVER HELPER Temperature 36.5 ??C (97.7 ??F) 2024 10:[address] Respiratory Rate 10 2024 10:01 AM WIRE WEAVER HELPER Oxygen Saturation 97% 2024 10:02 AM WIRE WEAVER HELPER Inhaled Oxygen Concentration - - Weight 67.1 kg (148 lb) 2024 10:01 AM WIRE WEAVER HELPER Height 167.6 cm (5' 6 ) 2024 10:01 AM WIRE WEAVER HELPER Body Mass Index 23.89 2024 10:01 AM WIRE WEAVER HELPER Plan of Treatment Not on file Goals Goal Patient Goal Type Associated Problems Recent Progress Patient-Stated? Author CCM Chronic Pain Care Plan Chronic Care Management Improving( 10:05 AM WIRE WEAVER HELPER) Bessy Gayle, RN Note: Problem: Chronic Pain Goals: 1. Minimize further functional decline 2. Maximize quality of life 3. Control pain Strategies: - Activity/exercise program recommendation - Conservative stepwise pain medicine strategy with multi-disciplinary approach - Recommend healthy lifestyle strategies and compensatory methods as needed Medical Devices Implanted Type Area Cooker Operator Device Identifier Shelf Expiration Date Model / Serial / Lot Ray Right: Eye Musculoskeletal Transplant [id number] Frozen Spine 7d Lordotic Trapezoid Spacer Allograft [id number] - [id number] - [id number] Implanted:Qty: 1 on 08/09/2022 by Olivier Marion MD at [facility] N/A: Spine Cervical Musculoskeletal Transplant [id number] 05/18/2026 [id number] / [id number] / Musculoskeletal Transplant [id number] Frozen Spine 7d Lordotic Trapezoid Spacer Allograft 824550 - [id number] - [id number] Implanted:Qty: 1 on 08/09/2022 by Olivier Marion MD at [facility] N/A: Spine Cervical Musculoskeletal Transplant [id number] 04/24/2026 555758 / [id number] / Musculoskeletal Transplant [id number] Frozen Spine 7d Lordotic Trapezoid Spacer Allograft 803159 - [id number] - [id number] Implanted:Qty: 1 on 08/09/2022 by Olivier Marion MD at [facility] N/A: Spine Cervical Musculoskeletal Transplant [id number] 12/12/2026 [id number] / [id number] / [employer] 4mm 16mm Fix Screw Bone [id number] - [id number] Implanted:Qty: 8 on 08/09/2022 by Olivier Marion MD at [facility] N/A: Spine Cervical [employer] [id number] / / [employer] C-Pancho Maxan 51mm Level 3 Fix Spine Cervical Anterior Plate Bone [id number] - [id number] Implanted:Qty: 1 on 08/09/2022 by Olivier Marion MD at [facility] N/A: Spine Cervical [employer] [id number] / / Procedures Procedure Name Priority [...] Re sult from Last 3 Months Insurance [facility] OPEN ACCESS CIG CIG OPEN ACCESS Advance Directives For more information, please contact: [phone] * Full Code (Latest Code Status on File) Date Activated Date Inactivated Comments 08/09/2022 11:03 PM 08/12/2022 9:06 PM Care Teams Inductor Tester Relationship Specialty Start Date End Date Peyman Ortega MD [address] [facility] [address] [place] [address] PCP - General Family Practice 05/13/24 Reanna Polanco, RN Registered Nurse 07/07/19
--- OUTSIDE RECORDS SUMMARY | 2024-07-28 01:03 | XMS_ITS | Encounter Summary ---
Author Organization [facility] Address [address] [place] [address] Care Team Providers Care Policy Director Name Role Phone Reanna Polanco RN [facility] Rohan Salvador MD Primary Care Provider Reason for Referral * MRI/CAT/PET Scan (Routine) - Closed Specialty Diagnoses / Procedures Referred By Contac t Referred To Contact Radiology Diagnoses Other spondylosis with radiculopathy, lumbar region Procedures MRI Lumbar Spine WO Contrast Nancy Fernandez MD [address] [facility] [address] [facility] [id number] [place] [address] Phone: tel: fax: [address] [phone] Referral ID Status Reason Start Date Expiration Date Visits Re quested Visits Authorized [id number] Closed 01/08/2024 07/06/2024 1 1 Reason for Visit * MRI/CAT/PET Scan (Routine) - Closed Specialty Diagnoses / Procedures Referred By Contac t Referred To Contact Radiology Diagnoses Other spondylosis with radiculopathy, lumbar region Procedures MRI Lumbar Spine WO Contrast Nancy Fernandez MD [address] [facility] [address] [facility] [phone] [place] [address] Phone: tel: fax: [facility] [address] [place] [address] Referral ID Status Reason Start Date Expiration Date Visits Re quested Visits Authorized [id number] Closed 01/08/2024 07/06/2024 1 1 Encounter Details Date Type Department Care Team (Latest Contact Info) Description 01/25/2024 2:18 PM CDT - 01/25/2024 11:59 PM CDT Hospital Encounter [facility] [address] [place] [address] Other spondylosis with radiculopathy, lumbar region Discharge Disposition: Discharge to home [...] on file Legal Sex Female 2:03 AM TAX ASSOCIATE ATTORNEY Gender Identity Female 08/26/2020 6:26 AM TAX ASSOCIATE ATTORNEY Sexual Orientation Straight 08/26/2020 6: 26 AM TAX ASSOCIATE ATTORNEY documented as of this encounter Medications at [...] hours as needed for pain 120 tablet 01/05/2024 02/03/20 lurasidone (LATUDA) 20 mg tablet 1 tablet (20 mg total) 02/02/2023 05/26/20 lurasidone (LATUDA) 40 mg tablet Take 1 [...] muscle spasms 240 tablet 2 01/07/2024 04/10/20 NON FORMULARY, FOR CLINIC ADMINISTERED MEDICATIONS ONLY, [...] or self care documented in this encounter Miscellaneous Notes * Result Encounter Note - Reanna Montaño RN - 01/25/2024 11:59 PM CDT Spoke with pt on phone, [...] Plan Chronic Care Management Improving( 10:05 AM TAX ASSOCIATE ATTORNEY) Bessy Gayle RN Note: Problem: Chronic Pain Goals: 1. Minimize further functional decline 2. Maximize quality of life 3. Control pain Strategies: - Activity/exercise program recommendation - Conservative stepwise pain medicine strategy with multi-disciplinary approach - Recommend healthy lifestyle strategies and compensatory methods as needed documented as of this encounter Procedures Procedure Name Priority Date/Time Associated Diagnosis Comments MRI LUMBAR SPINE WO CONTRAST Schedule Routine, Read Routine (OP Routine) 01/25/2024 3:40 PM CDT Other spondylosis with radiculopathy, lumbar region documented in this encounter Results * MRI Lumbar Spine [...] Diagnoses Diagnosis Other spondylosis with radiculopathy, lumbar region documented in this encounter Care Teams Policy Director Relationship Specialty Start Date End Date Rohan Rothman MD [address] [facility] [address] [place] [address] PCP - General 07/20/20 05/12/24 Reanna Polanco RN Registered Nurse 07/07/19 documented as of this encounter
--- OUTSIDE RECORDS SUMMARY | 2024-07-28 01:03 | XMS_ITS | Encounter Summary ---
Author Organization [facility] Healthcare Address [address] [facility] [place] [address] Care Team Providers Care Tax Accounting Assistant Name Role Phone Reanna Polanco RN [facility] Rohan Salvador MD Primary Care Provider Encounter Details Date Type Department Care Team (Late st Contact Info) Description 07/11/2023 Orders Only [facility] [address] [facility] [address] [place], [place] [id number] Nancy Fernandez MD [address] [facility] [address] [facility] [phone] [place], [place] [id number] Social History Tobacco Use Types Packs/Day Years [...] on file Legal Sex Female 2:03 AM TIE PRESSER Gender Identity Female 08/26/2020 6:26 AM TIE PRESSER Sexual Orientation Straight 08/26/2020 6: 26 AM TIE PRESSER documented as of this encounter Ordered Prescriptions Prescription Sig Dispense Quantity Refills Last Filled Start Date End Date HYDROcodone-acetam inophen (NORCO) 7.5-325 mg per tabletIndications: Pain Take 1 tablet by mouth every 6 (six) hours as needed for pain 90 tablet 07/11/2023 08/06/2023 documented in this encounter Plan of Treatment Not on file documented as of this encounter Goals Goal Patient Goal Type Associated Problems Recent Progress Patient-Stated? Author CCM Chronic Pain Care Plan Chronic Care Management Improving( 10:05 AM TIE PRESSER) No Bessy Mancuso, RUBIO Note: Problem: Chronic Pain Goals: 1. Minimize further functional decline 2. Maximize quality of life 3. Control pain Strategies: - Activity/exercise program recommendation - Conservative stepwise pain medicine strategy with multi-disciplinary approach - Recommend healthy lifestyle strategies and compensatory methods as needed documented as of this encounter Visit Diagnoses Not on filedocumented in this encounter Discontinued Medications Medication Sig Discontinue Reason Start Date End Da te HYDROcodone-acetaminophe n (NORCO) 7.5-325 mg per tabletIndications:Pain Take 1 tablet by mouth every 6 (six) hours as needed for pain Reorder 07/11/2023 07/11/2023 documented as of this encounter Care Teams Tax Accounting Assistant Relationship Specialty Start Date End Date Rohan Rothman MD [address] [place] [address] PCP - General 07/20/20 05/12/24 Reanna Polanco RN Registered Nurse 07/07/19 documented as of this encounter
--- OUTSIDE RECORDS SUMMARY | 2024-07-28 01:03 | XMS_ITS | Encounter Summary ---
Author Organization [facility] Healthcare Address [address] [facility] [place] [address] Care Team Providers Care Surgical Instruments Inspector Name Role Phone Reanna Polanco RN [facility] Rohan Salvador MD Primary Care Provider Encounter Details Date Type Department Care Team (Late st Contact Info) Description 11/01/2023 Orders Only [facility] [address] [facility] [address] [place], [place] [phone] Carolina Valero, NAOMIE [address] [place] [address] Social History Tobacco Use Types Packs/Day Years [...] on file Legal Sex Female 2:03 AM CHECKER AND PACKER Gender Identity Female 08/26/2020 6:26 AM CHECKER AND PACKER Sexual Orientation Straight 08/26/2020 6: 26 AM CHECKER AND PACKER documented as of this encounter Ordered Prescriptions Prescription Sig Dispense Quantity Refills Last Filled Start Date End Date methylPREDNISolone (MEDROL DOSEPACK) 4 mg DosepackIndication s:Anti-inflammator y Take as directed on package 1 packet 11/01/2023 4 documented in this encounter Plan of Treatment Not on file documented as of this encounter Goals Goal Patient Goal Type Associated Problems Recent Progress Patient-Stated? Author CCM Chronic Pain Care Plan Chronic Care Management Improving( 10:05 AM CHECKER AND PACKER) No Bessy Mancuso, RUBIO Note: Problem: Chronic Pain Goals: 1. Minimize further functional decline 2. Maximize quality of life 3. Control pain Strategies: - Activity/exercise program recommendation - Conservative stepwise pain medicine strategy with multi-disciplinary approach - Recommend healthy lifestyle strategies and compensatory methods as needed documented as of this encounter Visit Diagnoses Not on filedocumented in this encounter Care Teams Surgical Instruments Inspector Relationship Specialty Start Date End Date Rohan Rothman MD [address] [facility] [address] [place] [address] PCP - General 07/20/20 05/12/24 Reanna Polanco RN Registered Nurse 07/07/19 documented as of this encounter
--- OUTSIDE RECORDS SUMMARY | 2024-07-28 01:03 | XMS_ITS | Encounter Summary ---
Author Organization [facility] Healthcare Address [address] [facility] [place] [address] Care Team Providers Care Tester Compressed Gases Name Role Phone Reanna Polanco RN [facility] Rohan Salvador MD Primary Care Provider Reason for Referral * Consultation (Routine) - Canceled Specialty Diagnoses / Procedures Referred By Contcarol t Referred To Contact Physical Therapy Diagnoses Jaw pain Nancy Fernandez MD [address] [id number] [place] [address] Phone: tel: fax: External Order Referral ID Status Reason Start Date Expiration Date Visits Requested Visits Authorized [id number] Canceled Specialty Services Required 08/29/2023 09/27/2024 24 24 Question Answer PTRFR PT Evaluate and Treat Reason for Visit jaw pain and poor mouth opening Therapy options discussed with patient? Yes Location provided for therapy services is: Patient requested/Patient preferred Please select the performing region: External Order [171] # of visits: 24 Comments Jaw therapy UTER APPLICATION DEVELOPER Reason for Visit * Reason Comments Back Pain LBP to bilateral hip s muscle spasms Neck Pain Neck pain to shoulde r stiffness Encounter Details Date Type Department Care Team (Latest Contact Info) Description 08/29/2023 11:38 AM COMPUTER APPLICATION DEVELOPER - 08/29/2023 11:59 PM COMPUTER APPLICATION DEVELOPER Hospital Encounter [facility] [address] [facility] [address] [place] [address] Nancy Fernandez MD [address] [facility] [address] [id number] [place] [address] Fibromyalgia (Primary Dx); Chronic use of opiate drug for therapeutic purpose; Other secondary scoliosis, lumbar region; Bilateral low back pain without sciatica, unspecified chronicity; Jaw pain Discharge Disposition: Discharge to home or self [...] on file Legal Sex Female 2:03 AM COMPUTER APPLICATION DEVELOPER Gender Identity Female 08/26/2020 6:26 AM COMPUTER APPLICATION DEVELOPER Sexual Orientation Straight 08/26/2020 6: 26 AM COMPUTER APPLICATION DEVELOPER documented as of this encounter Last Filed Vital Signs Vital Sign Reading Time Taken Comments Blood Pressure 113/69 08/29/2023 12:00 PM COMPUTER APPLICATION DEVELOPER Pulse 79 08/29/2023 12:00 PM COMPUTER APPLICATION DEVELOPER Temperature 36.5 ??C (97.7 ??F) 08/29/2023 12:[address] Respiratory Rate 16 08/29/2023 12:00 PM COMPUTER APPLICATION DEVELOPER Oxygen Saturation 96% 08/29/2023 12:00 PM COMPUTER APPLICATION DEVELOPER Inhaled Oxygen Concentration - - Weight 61.7 kg (136 lb) 08/29/2023 12:00 PM COMPUTER APPLICATION DEVELOPER Height 167.6 cm (5' 6 ) 08/29/2023 12:00 PM COMPUTER APPLICATION DEVELOPER Body Mass Index 21.95 08/29/2023 12:00 PM COMPUTER APPLICATION DEVELOPER documented in this encounter Discharge Instructions * Patient Instructions* Judith Lee RN - 08/29/2023 12:00 PM COMPUTER APPLICATION DEVELOPER [facility] DISCHARGE INSTRUCTIONS MEDICATIONS: [x] Continue your current home medications [x] Notify your pharmacy for refill(s) 7 days before you are out of your medication. [] Opioid (Narcotic) Agreement signed and patient received copy. [] Side Effects of Opioid Medications given to patient DIET: [x] Resume normal diet [] See [facility] Post Discharge Procedure Information Sheet ACTIVITY: [x] Resume normal activity [] See [facility] Post Discharge Procedure Information Sheet REFERRALS: Physical Therapy [] [facility] Physical Therapy ([phone]) [] [facility] (Graded Motor Imagery) [] [facility] ([phone]) Option 1 [] [facility] (Graded Motor Imagery) [] [facility] ([phone]) [x] Other: External order given Behavior Medicine [] Pain Psychologist, [facility] Pain Psychology Please call to schedule appointment [phone] or [phone] Diagnostic Test(s): May get Radiographs performed in Radiation/X-Ray 6th floor, [address]. [] Please call to schedule MRI or CT scan at [phone] [] Please call to schedule EMG at [phone] EDUCATION provided on the following: [] Spinal [...] next procedure: [] See [facility] Pre-Procedure Information Sheet [] Do not eat or drink for six (6) hours before the time/date of the procedure. [] Inquire with your prescribing provider if ok to hold blood thinner for ( ) days before procedure. [] Blood work required 2 hours before procedure: [] Animal Chiropractor needed for next procedure [] Pre Procedure instructions will be sent through [employer] or by phone two working days prior to procedure. *Need help with [employer]? Call [phone]. Patient provided information and repeated back with understanding. If you need to reach us: For any questions about your procedure, please call the Pain Management Center [phone] (M-F) (8am-4pm) If you need urgent attention after 5 pm and weekends: Call the [facility] Ice Puller at [phone] and ask for the Pain Service doctor cook mayonnaise. UTER APPLICATION DEVELOPER documented in this encounter Medications at Time [...] a week Sunday04/02/2020 02/26/20 24 baclofen (LIORESAL) 10 mg tablet Take 2 tablets (20 mg total) by mouth 4 (four) times a day Takes 1-2 tabs QID 240 tablet 11 12/01/2022 10/18/19 24 famotidine (PEPCID) 10 mg tablet Take 1 tablet (10 mg total) by mouth daily 09/18/19 24 fluconazole (DIFLUCAN) 200 mg tablet TAKE 1 TABLET BY MOUTH EVERY OTHER DAY FOR 3 DOSES 08/23/2023 02/26/20 24 fluconazole (DIFLUCAN) 200 mg tablet One by mouth every other day for three doses. 08/23/2023 02/26/20 24 HYDROcodone-aceta minophen (NORCO) 7.5-325 mg per tabletIndications :Pain Take 1 tablet by mouth every 6 (six) hours as needed for pain 90 tablet 08/10/2023 09/04/19 24 lurasidone (LATUDA) 20 mg tablet 1 tablet (20 mg total) 02/02/2023 05/26/20 24 meloxicam (MOBIC) 15 mg tablet Take 1 tablet (15 mg total) by mouth daily 30 tablet 11 06/11/2023 02/26/20 24 methocarbamoL (ROBAXIN) 500 mg tablet Take 2 tablets (1,000 mg total) by mouth 4 (four) times a day as needed for muscle spasms 240 tablet 2 07/16/2023 10/15/19 24 nystatin ointment apply to external vulvar tissues twice daily. 08/23/2023 02/26/20 24 triamcinolone (KENALOG) 0.1 % ointment APPLY TO EXTERNAL VULVAR TISSUES TWICE DAILY DIRECTED 08/15/2023 02/26/20 24 documented as of this encounter Discharge Disposition Disposition Code Departure Means Destination Discharge to home or self care documented in this encounter Progress Notes * Nancy Fernandez MD - 08/29/2023 12:00 PM CST Patient Name: Annette Santiago : 1960 Today's Date: 08/29/2023 PCP: Rohan Rothman MD Referring: Notinfile Unknown Chief Complaint Patient presents with Back Pain LBP to bilateral hips muscle spasms Neck Pain Neck pain to shoulder stiffness INTERVAL HISTORY (08/29/2023): Annette Santiago returns to clinic today. She presents for ongoing management of low back and neckpain. Overall doing a little better with regard to the pain. Much better than any other winter she can remember. Still has a lot going on at home due to 's poor health. Doing a lot of physical therapy. Pain is primarily muscle spasms Pain is at low back and neck Radiation: bilateral hips, upper trap bilateral Numbness: none Weakness: none Feels that neck is straightening out. Stilling having jaw problems since the surgery. Voice and swallowing has improved. Can eat salad again. Got a dock guard to help with the jaw. Physical therapy told her that they have someone who specializes in jaw physical therapy. Baclofen - helps, has to stay on top of it Duloxetine- seems to help Hydrocodone/APAP - tid, helps, no side effects Meloxicam - helps Methocarbamol - helps, has to stay on top of it Pain Assessment Pain Score: 6 Pain Location: Back (Lumbar) Pain Radiating Towards: to bilateral hips. Pain Descriptors: Aching, Nagging, Tiring, Penetrating, Tender Pain Frequency: Constant/continuous Pain Onset: Ongoing 02/13/2023 2:00 PM 05/21/2023 4:44 PM 05/28/2023 12:00 PM 08/22/2023 8:26 PM MODIFIED OSWESTRY LOW BACK PAIN QUESTIONNAIRE [...] are conveniently positioned (e.g., on a table) Section 4 - Walking 3 - Pain prevents me from walking more than 1/4 mile 2 - Pain prevents me from walking more than 1/2 mile 2 - Pain prevents me from walking more than 1/2 mile 3 - Pain prevents mefrom walking more than 1/4 mile Section 5 - Sitting 3 - Pain prevents me from sitting for more than 1/2 hour 3 - Pain prevents me from sitting for more than 1/2 hour 3 - Pain prevents me from sitting for more than 1/2 hour 2 - Painprevents me from sitting for more than 1 hour Section 6 - Standing 4 - [...] prevents me from going out very often Section 9 - Traveling 3 - [...] Back Pain Score 26 26 26 26 Percentage 52 52 52 52 Last visit 05/28/23 we did the following: [...] needed for muscle spasms Physical Exam Vitals: 08/29/23 1200 BP: 113/69 Pulse: 79 Resp: 16 Temp: 97.7 ??F (36.5 ??C) SpO2: 96% Weight: 61.7 kg (136 lb) Height: 167.6 cm (5' 6 ) Body mass index is 21.95 kg/m??. Physical Exam Constitutional: General: She is not in acute distress. Appearance: She is well-developed. HENT: Mouth/Throat: Comments: Hoarseness improved. Mouth openening appears normal Musculoskeletal: Comments: Lumbar paraspinal TTP Lumbar scoliosis Skin: General: Skin is warm and dry. [...] and Office Note. Encounter Diagnoses Name Primary? Fibromyalgia Yes Chronic use of opiate drug for therapeutic purpose Other secondary scoliosis, lumbar region Bilateral low back pain without sciatica, unspecified chronicity Plan Interventions: none today Medications: continue current meds for now The patient shows no signs of aberrant [...] the lowest dose necessary. Chronic Opioid Therapy 08/29/2023 Current analgesics: hydrocodone/APAP 7.5/325 1 tab every [...] needed at this current time. 4. Referral: referral for jaw physical therapy 5. Follow-up: In 3mo for re-evaluation of the above regimen. Nancy Fernandez MD UTER APPLICATION DEVELOPER documented in this encounter Plan of Treatment Scheduled Referrals Name Type Priority Associated Diagnoses Order Schedule Ambulatory referral order to Physical Therapy - Outpatient Referral Routine Jaw pain Expected: 09/12/2023 (Approximate), Expires: 08/29/2024 documented as of this encounter Goals Goal Patient Goal Type Associated Problems Recent Progress Patient-Stated? Author CCM Chronic Pain Care Plan Chronic Care Management Improving( 10:05 AM COMPUTER APPLICATION DEVELOPER) No Bessy Mancuso, RN Note: Problem: Chronic Pain Goals: 1. Minimize further functional decline 2. Maximize quality of life 3. Control pain Strategies: - Activity/exercise program recommendation - Conservative stepwise pain medicine strategy with multi-disciplinary approach - Recommend healthy lifestyle strategies and compensatory methods as needed documented as of this encounter Visit Diagnoses Diagnosis Fibromyalgia- Primary Unspecified myalgia and myositis Chronic use of opiate drug for therapeutic purpose Other secondary scoliosis, lumbar region Bilateral low back pain without sciatica, unspecified chronicity Jaw pain documented in this encounter Discontinued Medications Medication Sig Discontinue Reason Start Date End Da te amoxicillin (AMOXIL) 500 mg tablet/capsuleIndicatio ns:Prophylaxis, Medical Take 4 pills 1 hour prior to procedure Therapy completed 01/22/2023 08/29/2023 Opzelura 1.5 % cream Therapy completed 10/20/2022 documented as of this encounter Historical Medications * This list may reflect changes made after this encounter. nystatin ointment apply to external vulvar tissues twice daily. 08/23/2023 02/26/2024 added in this encounter Care Teams Tester Compressed Gases Relationship Specialty Start Date End Date Rohan Rothman MD [address] [facility] [address] [place] [address] PCP - General 07/20/20 05/12/24 Reanna Polanco RN Registered Nurse 07/07/19 documented as of this encounter
--- OUTSIDE RECORDS SUMMARY | 2024-07-28 01:04 | XMS_ITS | Encounter Summary ---
Author Organization [facility] Address [address] [place] [address] Phone Care Team Providers Care Kitchen Cleaner Name Role Phone Reanna Polanco RN [facility] Rohan Salvador MD Primary Care Provider Reason for Referral * Diagnostic Imaging (Routine) - Closed Specialty Diagnoses / Procedures Referred By Contac t Referred To Contact Diagnoses Fusion of spine of cervical region Procedures XR Spine Cervical W Flexion And Extension 4 or 5 Views Olivier Marion MD [address] [facility] [place] [address] Phone: tel: fax: [facility] Referral ID Status Reason Start Date Expiration Date Visits Re quested Visits Authorized [id number] Closed 11/03/2022 12/03/2023 1 1 Reason for Visit * Reason Comments Post-op Encounter Details Date Type Department Care Team (Late st Contact Info) Description 11/08/2022 9:20 AM CDT Office Visit [facility] Orthopaedic Surgery [address] [facility] 6th [place] [address] [place] [address] Olivier Marion MD [address] [facility] [place] [address] Fusion of spine of cervical region (Primary Dx) Social History Tobacco Use Types Packs/Day Years Used Date Smoking Tobacco: Former Cigarettes 1 5 0 11/27/1978 - 09/28/1983 Smokeless Tobacco: Never Alcohol Use Standard Drinks/Week Comments No 0 (1 standard drink = 0.6 oz pur e alcohol) denies AUDIT-C Answer Date Recorded Q1: How often do you have a drink containing alcohol? Never 10/31/2022 Q2: How many drinks containi ng alcohol do you have on a typical day when you are drinking? Patient does not drink Q3: How often do you have si x or more drinks on one occasion? Never 10/31/2022 Hunger Vital Sign Answer Date Recorded Within the past 12 months, y ou worried that your food would run out before you got the money to buy more. Never true 09/08/19 23 Within the past 12 months, t he food you bought just didn't last and you didn't have money to get more. Never true 09/08/2022 Comments No Sex and Gender Information Value Date Recorded Sex Assigned at Not on file Legal Sex Female 2:03 AM STAFF ATTORNEY Gender Identity Female 08/26/2020 6:26 AM STAFF ATTORNEY Sexual Orientation Straight 08/26/2020 6: 26 AM STAFF ATTORNEY documented as of this encounter Progress Notes * Olivier Marion MD - 11/08/2022 9:20 AM CDT Images from the original note were not included. Post Op Note Reason for Visit: Postoperative visit s/p C3-6 ACDF on 08/09/22 complicated by hematoma and requiring hematoma evacuation that evenign. History of Present Illness: Annette Santiago is a 62-year-old female who [...] Extremity Strength: Deltoid Biceps Triceps WristEx WristFlex Field Training Agent Right 5 5 5 5 5 5 [...] diskectomy and fusion with anterior cervical plating. No evidence of instrumentation failure or complication. [employer] PROMIS 11/08/2022 09/21/2022 08/24/2022 07/20/2022 07/19/2022 07/06/2022 Pain Interference 63.9 68.7 70.2 66.9 70.3 70.5 Physical Function V2.0 28.8 24.5 27.8 26.9 27.9 28.8 Anxiety V1.0 45.7 49.9 45.7 46.7 48.7 47.9 Depression 51.7 51.3 43.6 48.1 48.2 45.8 Suzanna Ramos MD I have seen and examined the patient on 11/08/2022. I agree with the findings and plan of care as documented in the resident's/fellow's note.. Olivier Marion MD Assessments: Ms. Santiago is doing fairly well, now 3 months status post surgery. Discussion: At today's office visit, we discussed that she no longer has any cervical spine restrictions and that she may return to her activities as tolerated. In terms of her swallowing difficulties, we discussed that as it has continued to improve she may monitor her symptoms. However, if she feels as though it is no longer improving, we would recommend she follow up with ENT as they would previously recommended a modified barium swallow study. We recommend continued physical therapy. We would like her to follow up in 3 months for her 6 month postoperative visit. At that time we will obtain AP, lateral, flexion-extension radiographs. All of her questions were answered and she was in agreement with e plan. ____ documented in this encounter Plan of Treatment Not on file documented as of this encounter Goals Goal Patient Goal Type Associated Problems Recent Progress Patient-Stated? Author CCM Chronic Pain Care Plan Chronic Care Management Improving( 10:05 AM STAFF ATTORNEY) Bessy Gayle RN Note: Problem: Chronic [...] Flexion And Extension 4 or 5 Views (11/08/2022 8:17 AM CDT) Anatomical Region Laterality Modality Spine N/A Computed Radiogr aphy 11/08/2022 8:28 AM CDT Impressions 11/08/2022 8:28 AM CDT 1. ??Anterior cervical discectomy and instrumented fusion C3-C6 with lucency about the C3 and C4 screws and mild angular excursion at C3-C4 and C4-C5 with bending, unchanged from prior exam. 2. ??Unchanged mild anterolisthesis of C2 on C3 which does not change with flexion but resolves with extension. 3. ??Unchanged moderate degenerative disc disease of the unfused levels. Electronically signed by: MD Kirby Cary 11/08/2022 8:28 AM CDT EXAMINATION: XR SPINE CERVICAL W FLEXION AND EXTENSION 4 OR 5 VIEWS HISTORY: Cervical fusion. COMPARISON: Radiographs of the cervical spine dated 09/21/2022. FINDINGS: 4 views of the cervical spine are submitted for interpretation. Redemonstration of anterior discectomy and fusion from C3 to C6. Unchanged mild lucency about the screws at C3 and C4 levels. ??There is mild angular excursion at C3-C4 and C4-C5 with flexion, similar to prior exam. ??Unchanged mild anterolisthesis of C2 on C3 on neutral and flexion which corrects with extension. ??No evidence of fracture. Moderate degenerative disc disease of the unfused levels. Procedure Note Tolu Montejo MD - 11/08/2022 EXAMINATION: XR SPINE CERVICAL W FLEXION AND EXTENSION 4 OR 5 VIEWS HISTORY: Cervical fusion. COMPARISON: Radiographs of the cervical spine dated 09/21/2022. FINDINGS: 4 views of the cervical spine are submitted for interpretation. Redemonstration of anterior discectomy and fusion from C3 to C6. Unchanged mild lucency about the screws at C3 and C4 levels. There is mild angular excursion at C3-C4 and C4-C5 with flexion, similar to prior exam. Unchanged mild anterolisthesis of C2 on C3 on neutral and flexion which corrects with extension. No evidence of fracture. Moderate degenerative disc disease of the unfused levels. IMPRESSION: 1. Anterior cervical discectomy and instrumented fusion C3-C6 with lucency about the C3 and C4 screws and mild angular excursion at C3-C4 and C4-C5 with bending, unchanged from prior exam. 2. Unchanged mild anterolisthesis of C2 on C3 which does not change with flexion but resolves with extension. 3. Unchanged moderate degenerative disc disease of the unfused levels. Electronically signed by: Tolu Montejo MD Olivier Marion MD IMG XR PROCEDURES Final Re sult documented in this encounter Visit Diagnoses Diagnosis Fusion of spine of cervical region- Primary Fusion of spine of cervical region documented in this encounter Care Teams Kitchen Cleaner Relationship Specialty Start Date End Date Rohan Rothman MD [address] [facility] [address] [place] [address] PCP - General 07/20/20 05/12/24 Reanna Polanco, RN Registered Nurse 07/07/19 documented as of this encounter
--- OUTSIDE RECORDS SUMMARY | 2024-07-28 01:04 | XMS_ITS | Encounter Summary ---
Author Organization [facility] Address [address] [place] [address] Phone Care Team Providers Care Offender Job Retention Specialist Name Role Phone Reanna Polanco RN [facility] Rohan Salvador MD Primary Care Provider Encounter Details Date Type Department Care Team (Late st Contact Info) Description 02/08/2023 Orders Only [facility] Orthopaedic Surgery [address] [facility] 6th [place] [address] [place] [address] Olivier Marion MD [address] [facility] [address] [place], [place] [id number] Dysphagia, unspecified type (Primary Dx) Social History Tobacco Use Types [...] on file Legal Sex Female 2:03 AM CUSTODY OFFICER Gender Identity Female 08/26/2020 6:26 AM CUSTODY OFFICER Sexual Orientation Straight 08/26/2020 6: 26 AM CUSTODY OFFICER documented as of this encounter Plan of Treatment Not on file documented as of this encounter Goals Goal Patient Goal Type Associated Problems Recent Progress Patient-Stated? Author CCM Chronic Pain Care Plan Chronic Care Management Improving( 10:05 AM CUSTODY OFFICER) No Bessy Mancuso, RUBIO Note: Problem: Chronic Pain Goals: 1. Minimize further functional decline 2. Maximize quality of life 3. Control pain Strategies: - Activity/exercise program recommendation - Conservative stepwise pain medicine strategy with multi-disciplinary approach - Recommend healthy lifestyle strategies and compensatory methods as needed documented as of this encounter Visit Diagnoses Diagnosis Dysphagia, unspecified type- Primary documented in this encounter Care Teams Offender Job Retention Specialist Relationship Specialty Start Date End Date Rohan Rothman MD [address] [facility] [address] [place] [address] PCP - General 07/20/20 05/12/24 Reanna Polanco RN Registered Nurse 07/07/19 documented as of this encounter
--- OUTSIDE RECORDS SUMMARY | 2024-07-28 01:04 | XMS_ITS | Encounter Summary ---
Author Organization [facility] Healthcare Address [address] [place] [address] Care Team Providers Care Financial Services Auditor Name Role Phone Reanna Polanco RN [facility] Rohan Salvador MD Primary Care Provider Reason for Visit * Reason Comments Follow-up Encounter Details Date Type Department Care Team (Latest Contact Info) Description 02/13/2023 2:05 PM CDT - 02/13/2023 11:59 PM CDT Hospital Encounter [facility] [address] [facility] [address] [place], [place] [id number] Nancy Fernandez MD [address] [facility] [phone] [place] [address] Chronic use of opiate drug for therapeutic purpose (Primary Dx); Fibromyalgia; Pain of lumbar facet joint; Other secondary scoliosis, lumbar region; Spinal stenosis in cervical region Discharge Disposition: Discharge to home [...] the money to buy more. Never true 02/14/20 23 Within the past 12 months, t he food you bought just didn't last and you didn't have money to get more. Never true 02/13/2023 Comments No Sex and Gender Information Value Date Recorded Sex Assigned at Not on file Legal Sex Female 2:03 AM FINAL ASSEMBLY WORKER Gender Identity Female 08/26/2020 6:26 AM FINAL ASSEMBLY WORKER Sexual Orientation Straight 08/26/2020 6: 26 AM FINAL ASSEMBLY WORKER documented as of this encounter Last Filed Vital Signs Vital Sign Reading Time Taken Comments Blood Pressure 123/76 02/13/2023 2:17 PM CDT Pulse 78 02/13/2023 2:17 PM CDT Temperature 36.5 ??C (97.7 ??F) 02/13/2023 2:17 PM CD T Respiratory Rate 16 02/13/2023 2:17 PM CDT Oxygen Saturation 96% 02/13/2023 2:17 PM CDT Inhaled Oxygen Concentration - - Weight 64.5 kg (142 lb 3.2 oz) 02/13/2023 2:17 P M CDT Height 172.7 cm (5' 8 ) 02/13/2023 2:17 PM CDT Body Mass Index 21.62 02/13/2023 2:17 PM CDT documented in this encounter Discharge Instructions * Patient Instructions* Young Yi RN - 02/13/2023 2:30 PM CDT 3 months follow-up documented in this encounter Medications at Time [...] tablet (10 mg total) by mouth nightly methocarbamoL (ROBAXIN) 500 mg tablet Take 2 tablets (1,000 mg total) by mouth 4 (four) times a day 60 tablet 2 12/27/2022 03/27/20 23 alendronate (FOSAMAX) 70 mg tabletIndications :Post-Menopausal Osteoporosis [...] hours as needed for pain 90 tablet 02/05/2023 03/07/20 23 lurasidone (LATUDA) 20 mg tablet 1 tablet (20 mg total) 02/02/2023 05/26/20 24 meloxicam (MOBIC) 7.5 mg tablet Take 1 tablet (7.5 mg total) by mouth daily 04/11/20 23 methocarbamoL (ROBAXIN) 500 mg tablet Take 2 tablets (1,000 mg total) by mouth 4 (four) times a day as needed for muscle spasms 240 tablet 2 04/07/2022 04/11/20 23 Opzelura 1.5 % cream 10/20/2022 08/29/19 24 documented as of this encounter Discharge Disposition Disposition Code Departure Means Destination Discharge to home or self care documented in this encounter Progress Notes * Nancy Fernandez MD - 02/13/2023 2:30 PM CDT Patient Name: Annette Santiago : 1960 Today's Date: 02/13/2023 PCP: Rohan Rothman MD Referring: Rohan Rothman, * Chief Complaint Patient presents with Follow-up INTERVAL HISTORY (02/13/2023): Annette Santiago returns to clinic today. She presents for ongoing management of low back pain. Saw Dr. Soto 02/07/23- recovering well 6 mo s/p C3-6 ACDF. Pain and balance improved. Having sometrouble swallowing- sent to ENT for reeval. Today she says that the swallowing symptoms have gotten a little better. She still plans to see ENT. Low back pain is overall pretty good- better than usual. She attributes the relative pain control to the weather. Does better with summer weather, especially when it's dry. Her has a lot health needs and she has been better able to keep up with this over the summer. She also started a new antidepressant, which is helping a lot. She is getting a good night sleep and not waking up with breakthrough pain. She has been doing physical therapy for neck and more recently added back exercises. She thinks this helps. Compliant with HEP. Taking hydrocodone/APAP 2-3 tabs per day with benefit and without side effects. Muscle relaxants help a lot. Pain is at low back. Radiation: none Numbness: none Weakness: none Pain Assessment Pain Score: 5 - Moderate pain Patient's Stated Pain Goal: 2 Pain Location: Neck Pain Radiating Towards: bilateral shoulders and low back Pain Descriptors: (aching, gnawing, nagging, tiring) Pain Frequency: Frequently Pain Onset: Ongoing MODIFIED OSWESTRY LOW BACK PAIN QUESTIONNAIRE 02/13/2023 Section 1 - Pain Intensity 2 - Pain medication provides me with complete relief from pain Section 2 - Personal Care (e.g., washing, dressing) 1 - I can take care of myself normally, but it increases my pain Section 3 - Lifting 5 - I cannot lift or carry anything at all Section 4 - Walking 3 - Pain prevents me from walking more than 1/4 mile Section 5 - Sitting 3 - Pain prevents me from sitting for more than 1/2 hour Section 6 - Standing 4 - Pain prevents me from standing for more than 10 minutes Section 7 - Sleeping 1 - I can sleep well only using pain medication Section 8 - Social Life 2 - Pain prevents me from participating in more energetic activities (e.g.,sports, dancing) Section 9 - Traveling 3 - My pain restricts my travel over 1 hour Section 10 - Employment/Homemaking 2 - I can perform most of my homemaking/job duties, but pain prevents me from performing more physically stressful activities (e.g., lifting, vacuuming) Modified Oswestry Low Back Pain Score 26 Percentage 52 Last visit 10/31/2022 we did the following: Intervention: none Medication adjustments: Taking extra doses of methocarbamol and baclofen at night. Sleep is poor. Discussed trial of cyclobenzaprine at night instead of extra methocarmamol and baclofen. Discussed this will be 3 different muscle relaxants, but all with different mechanisms of action. She is benefiting from muscle relaxants and heat. Referrals: none Current Pain meds: Pain Medications [...] 1 tablet (20 mg total) meloxicam (MOBIC) 7.5 mg tablet Take 1 tablet (7.5 mg total) by mouth daily methocarbamoL (ROBAXIN) 500 mg tablet Take 2 tablets (1,000 mg total) by mouth 4 (four) times a day Physical Exam Vitals: 02/13/23 1417 BP: 123/76 Pulse: 78 Resp: 16 Temp: 97.7 ??F (36.5 ??C) SpO2: 96% Weight: 64.5 kg (142 lb 3.2 oz) Height: 172.7 cm (5' 8 ) Body mass index is 21.62 kg/m??. Physical Exam Constitutional: General: She is not in acute distress. Appearance: She is well-developed. Musculoskeletal: Comments: Scoliosis Gait minimally antalgic with good pace and energy Skin: General: Skin is warm and dry. [...] and Office Note. Encounter Diagnoses Name Primary? Chronic use of opiate drug for therapeutic purpose Yes Fibromyalgia Pain of lumbar facet joint Other secondary scoliosis, lumbar region Spinal stenosis in cervical region Plan Interventions: none Medications: continue current meds for now The [...] the lowest dose necessary. Chronic Opioid Therapy 02/13/2023 Current analgesics: hydrocodone/APAP 7.5/325mg 2-3 Daily dose (MME): 15-22.5mg/day Benzodiazepines: no Meds locked up: She keeps in an unmarked box in the closet and is sure to put them out of sight if anyone is coming into her home (family members, cleaning crew, etc) Plan: continue current meds for now. 3. Imaging: No further imaging needed at this current time. 4. Referral: No referrals needed at this current time. 5. Follow-up: In 3mo for re-evaluation of the above regimen. Nancy Fernandez MD * Radha Morales RN - 02/13/2023 2:30 PM CDT 02/13/23 2:19 PM Urine Drug Screen obtained: 02/13/2023 [x] [facility] lab Medication/Dose/Frequency: HYDROcodone-acetaminophen (NORCO) 7.5-325 mg per tablet, Take 1 tablet by mouth every 6 (six) hours as needed for pain Date and time of Last Dose: 02/13/2023 at 10:00 am documented in this encounter Plan of Treatment Not on file documented as of this encounter Goals Goal Patient Goal Type Associated Problems Recent Progress Patient-Stated? Author CCM Chronic Pain Care Plan Chronic Care Management Improving( 10:05 AM FINAL ASSEMBLY WORKER) No Bessy Mancuso, RUBIO Note: Problem: Chronic Pain Goals: 1. Minimize further functional decline 2. Maximize quality of life 3. Control pain Strategies: - Activity/exercise program recommendation - Conservative stepwise pain medicine strategy with multi-disciplinary approach - Recommend healthy lifestyle strategies and compensatory methods as needed documented as of this encounter Results * (ABNORMAL) Drugs of Abuse Screen, Urine without Confirmation (02/13/2023 2:08 PM CDT) Amphetamine, ur Not Detected CutOff 500ng/mL [facility] Comment: Interpretive Data - Amphetamines: ??Samples containing greater than 500 ng/mL d-methamphetamine ??or other cross-reacting amphetamine compounds are reported as positive. ??Amphetamine immunoassays are subject to significant false positive rates due to cross-reactivity of non-amphetamine drugs. Current Interpretive Data was last reviewed 2018. Barbiturates, ur Not Detected CutOff 200ng/mL [facility] Comment: Interpretive Data - Barbiturates: ??Samples containing greater than 200 ng/mL secobarbital or other cross-reacting barbiturate compounds are reported as positive. ??False positive and false negative results are possible. Current Interpretive Data was last reviewed 2018. Benzodiazepines, ur Not Detected CutOff 100ng/mL [facility] Comment: Interpretive Data - Benzodiazepines: ??Samples containing greater than 100 ng/mL nordiazepam or other cross-reacting compounds are reported as positive. ?? False positive and false negative results are possible. ?? Current Interpretive Data was last reviewed 2018. Cannabinoids, ur Not Detected CutOff 50 ng/mL [facility] Cocaine, ur Not Detected CutOff 150ng/mL [facility] Comment: Interpretive Data - Cocaine: ??Samples containing greater than 150 ng/mL benzoylecgonine or other cross-reacting compounds are reported as positive. False positive and false negative results are possible. Current Interpretive Data was last reviewed 2018. Fentanyl, Ur Not Detected Cutoff 1 ng/mL [facility] Comment: Interpretive Data - Fentanyls: ??Samples containing greater than 1 ng/mL fentanyl or other cross-reacting fentanyl compounds are reported as detected. ??False positive and false negative results are possible. Current Interpretive Data was last reviewed 2019. Methadone, ur Not Detected CutOff 300ng/mL [facility] Comment: Interpretive Data - Methadone: ??Samples containing greater than 300 ng/mL d,l-methadone or other cross-reacting compounds are reported as positive. ??False positive and false negative results are possible. Current Interpretive Data was last reviewed 2018. Opiates, ur Detected(A) CutOff 300ng/mL [facility] Comment: Interpretive Data - Opiates: ??Samples containing greater than 300 ng/mL morphine or other cross-reacting compounds are reported as positive. ??False positive and false negative results are possible. Current Interpretive Data was last reviewed 2018. Oxycodone, ur Not Detected CutOff 100ng/mL [facility] Comment: Interpretive Data - Oxycodone: ??Samples containing greater than 100 ng/mL oxycodone or other cross-reacting compounds are reported as positive. ??False positive and false negative results are possible. ?? Current Interpretive Data was last reviewed 2018. Phencyclidine, ur Not Detected CutOff 25 ng/mL [facility] Comment: Interpretive Data - Phencyclidine: ??Samples containing greater than 25 ng/mL phencyclidine or other cross-reacting compounds are reported as positive. ??False positive and false negative results are possible. ?? Current Interpretive Data was last reviewed 2018. Urine Creatinine 129 mg/dL [facility] Comment: Interpretive Data Urine Creatinine: < 10 mg/dL is extremely dilute = or > 10 but < 20 mg/dL is dilute = or > 20 mg/dL is normal Current Interpretive Data was last revised on 2017. Urine 02/13/2023 2:08 PM CDT 02/13/2023 6:31 PM CDT Narrative [facility] - 02/13/2023 7:25 PM CDT Drug of Abuse screening is performed by immunoassay for medical purposes only. ??This is not to be used for Pain Management purposes. us Kavya Nava MD LAB URINE ORDERABLES Final Result [facility] Department [place] [address] documented in this encounter Visit Diagnoses Diagnosis Chronic use of opiate drug for therapeutic purpose- Primary Fibromyalgia Unspecified myalgia and myositis Pain of lumbar facet joint Other secondary scoliosis, lumbar region Spinal stenosis in cervical region Chronic use of opiate drug for therapeutic purpose documented in this encounter Discontinued Medications Medication Sig Discontinue Reason Start Date End Da te cyclobenzaprine (FLEXERIL) 10 mg tablet Take 1 tablet (10 mg total) by mouth 3 (three) times a day as needed for muscle spasms Therapy completed 11/01/2022 02/13/2023 documented as of this encounter Care Teams Financial Services Auditor Relationship Specialty Start Date End Date Rohan Rothman MD [address] [address] PCP - General 07/20/20 05/12/24 Reanna Polanco, RN Registered Nurse 07/07/19 documented as of this encounter
--- OUTSIDE RECORDS SUMMARY | 2024-07-28 01:04 | XMS_ITS | Encounter Summary ---
Author Organization [facility] Address [address] [place] [address] Phone Care Team Providers Care Senior Tax Analyst Name Role Phone Reanna Polanco RN [facility] Rohan Salvador MD Primary Care Provider Reason for Visit * Reason Comments Post-op Encounter Details Date Type Department Care Team (Late st Contact Info) Description 02/07/2023 11:20 AM CDT Office Visit [facility] Orth[facility] 6th [place] [address] [place] [address] Olivier Marion MD [address] [facility] [place] [address] Spinal stenosis in cervical region (Primary Dx); Fusion of spine of cervical [...] money to buy more. Never true 09/08/19 Within the past 12 months, t he food you bought just didn't last and you didn't have money to get more. Never true 09/08/2022 Comments No Sex and Gender Information Value Date Recorded Sex Assigned at Not on file Legal Sex Female 2:03 AM NURSE ADVISOR Gender Identity Female 08/26/2020 6:26 AM NURSE ADVISOR Sexual Orientation Straight 08/26/2020 6: 26 AM NURSE ADVISOR documented as of this encounter Progress Notes * Olivier Marion MD - 02/07/2023 11:20 AM CDT Images from the original note were not included. Post Op Note Reason for Visit: Postoperative visit s/p C3-6 ACDF on 08/09/22 complicated by hematoma and requiring hematoma evacuation that evenign. History of Present Illness: 02/07/2023 She is here for her six-month [...] Extremity Strength: Deltoid Biceps Triceps WristEx WristFlex Culinary Assistant Right 5 5 5 5 5 5 [...] loosening and with flexion-extension and neutral images there may be some motion of the plate I do not see any significant difference though from previous x-ray [facility] PROMIS 11/08/2022 09/21/2022 08/24/2022 07/20/2022 07/19/2022 07/06/2022 Pain Interference 63.9 68.7 70.2 66.9 70.3 70.5 Physical Function V2.0 28.8 24.5 27.8 26.9 27.9 28.8 Anxiety V1.0 45.7 49.9 45.7 46.7 48.7 47.9 Depression 51.7 51.3 43.6 48.1 48.2 45.8 Assessments: Ms. Santiago is doing fairly well, now 6 months status post surgery. Discussion: For pain standpoint she is doing well did explain that that some of that migration of the plate could be was giving her some of the dysphagia or some of the swallowing issues I would like her to be re-evaluated by ENT potentially do a swallow study as well as assess the vocal cords. Based on this information with the determine next step of options I do not see any significant change from previousx-ray she is still able to swallow but is having some difficulty swallowing see any urgency to thisand it was something at the moment we can continue to monitor. I would like to see her back in 3 months to get repeat x- rays I explained if she noticed any worsening of her swallowing hoarseness or an y significant changes she should give us a call or go to the emergency room we will have her be evaluated by ENT at their opinion and then she will give my office a call me know if she sees ENT so I can review the evaluation ____ documented in this encounter Plan of Treatment Not on file documented as of this encounter Goals Goal Patient Goal Type Associated Problems Recent Progress Patient-Stated? Author CCM Chronic Pain Care Plan Chronic Care Management Improving( 10:05 AM NURSE ADVISOR) Bessy Gayle RN Note: Problem: Chronic Pain Goals: 1. Minimize further functional decline 2. Maximize quality of life 3. Control pain Strategies: - Activity/exercise program recommendation - Conservative stepwise pain medicine strategy with multi-disciplinary approach - Recommend healthy lifestyle strategies and compensatory methods as needed documented as of this encounter Results * XR Spine Cervical W Flexion And Extension 4 or 5 Views (02/07/2023 10:41 AM CDT) Anatomical Region Laterality Modality Spine N/A Computed Radiogr aphy 02/07/2023 12:5 0 PM CDT Impressions 02/07/2023 1:30 PM CDT 1. ??C3-C6 anterior decompression and instrumented fusion with progressive anterior subsidence of the fused segments, particularly at C3 and C4, instrumentation loosening with cranial migration and abutment of the C2 vertebral body by the superior aspect of the plate, new fracture of a C6 screw, and angular motion at the fused segments indicating lack of fusion. ??The anterior plate projects 12 mm into the prevertebral soft tissues. Dictated by: Clarice Shaw M.D. The radiology attending physician has personally reviewed this study, and had reviewed and/or edited this written report and agrees with it. Electronically signed by: Yahir Mcintosh M.D. Narrative 02/07/2023 1:30 PM CDT EXAMINATION: XR SPINE CERVICAL W FLEXION AND EXTENSION 4 OR 5 VIEWS HISTORY: Anterior instrumented cervical fusion COMPARISON: 11/08/2022 FINDINGS: 4 views submitted for interpretation. Redemonstrated is an anterior instrumented fusion of C3-C6 with increased anterior subsidence of the C3 and C4 screws. ??There is increased incorporation of the bone graft. ??There is a new fracture of one of the C6 screws. ??There is angular excursion at all levels. There is progressive abutment of the anterior and inferior aspect of C2 with the superior aspect of the plate. ??The plate is located 12 mm anterior to the vertebral body at C3 with extension into the prevertebral soft tissues. ??There is trace anterolisthesis of C2-C3. Moderate degenerative disc disease of the unfused levels. ??No acute fracture. Procedure Note Yahir Mcintosh MD - 02/07/2023 EXAMINATION: XR SPINE CERVICAL W FLEXION AND EXTENSION 4 OR 5 VIEWS HISTORY: Anterior instrumented cervical fusion COMPARISON: 11/08/2022 FINDINGS: 4 views submitted for interpretation. Redemonstrated is an anterior instrumented fusion of C3-C6 with increased anterior subsidence of the C3 and C4 screws. There is increased incorporation of the bone graft. There is a new fracture of one of the C6 screws. There is angular excursion at all levels. There is progressive abutment of the anterior and inferior aspect of C2 with the superior aspect of the plate. The plate is located 12 mm anterior to the vertebral body at C3 with extension into the prevertebral soft tissues. There is trace anterolisthesis of C2-C3. Moderate degenerative disc disease of the unfused levels. No acute fracture. IMPRESSION: 1. C3-C6 anterior decompression and instrumented fusion with progressive anterior subsidence of the fused segments, particularly at C3 and C4, instrumentation loosening with cranial migration and abutment of the C2 vertebral body by the superior aspect of the plate, new fracture of a C6 screw, and angular motion at the fused segments indicating lack of fusion. The anterior plate projects 12 mm into the prevertebral soft tissues. Dictated by: Clarice Shaw M.D. The radiology attending physician has personally reviewed this study, and had reviewed and/or edited this written report and agrees with it. Electronically signed by: Yahir Daniel Mcintosh, M.D. us Olivier Marion MD IMG XR PROCEDURES Final Re sult documented in this encounter Visit Diagnoses Diagnosis Spinal stenosis in cervical region- Primary Fusion of spine of cervical region Dysphagia, unspecified type Spinal stenosis in cervical region documented in this encounter Discontinued Medications Medication Sig Discontinue Reason Start Date End Da te acetaminophen 500 mg capsuleIndications:preO P Take 2 capsules (1,000 mg total) by mouth every 6 (six) hours 08/12/2022 02/07/2023 senna-docusate (PERICOLACE) 8.6-50 mg Take 1 tablet by mouth nightly 08/12/2022 02/07/2023 brexpiprazole (Rexulti) 2 mg tablet 1 tablet (2 mg total) daily 02/07/2023 documented as of this encounter Historical Medications * This list may reflect changes made after this encounter. lurasidone (LATUDA) 20 mg tablet 1 tablet (20 mg total) 02/02/2023 05/26/2024 added in this encounter Care Teams Senior Tax Analyst Relationship Specialty Start Date End Date Rohan Rothman MD [address] [place] [address] PCP - General 07/20/20 05/12/24 Reanna Polanco, RN Registered Nurse 07/07/19 documented as of this encounter
--- OUTSIDE RECORDS SUMMARY | 2024-07-28 01:04 | XMS_ITS | Encounter Summary ---
Author Organization [facility] Healthcare Address [address] [place] [address] Care Team Providers Care Submersible Pilot Name Role Phone Reanna Polanco RN [facility] Rohan Salvador MD Primary Care Provider Encounter Details Date Type Department Care Team (Late st Contact Info) Description 01/02/2023 Orders Only [facility] [address] [facility] [address] [place], [place] [id number] Nancy Fernandez MD [address] [facility] [address] [facility] [phone] [place], [place] [id number] Social History Tobacco Use Types Packs/Day Years [...] on file Legal Sex Female 2:03 AM CHILDCARE CENTER DIRECTOR Gender Identity Female 08/26/2020 6:26 AM CHILDCARE CENTER DIRECTOR Sexual Orientation Straight 08/26/2020 6: 26 AM CHILDCARE CENTER DIRECTOR documented as of this encounter Ordered Prescriptions Prescription Sig Dispense Quantity Refills Last Filled Start Date End Date HYDROcodone-acetam inophen (NORCO) 7.5-325 mg per tabletIndications: Pain Take 1 tablet by mouth every 6 (six) hours as needed for pain 90 tablet 01/06/2023 01/29/2023 documented in this encounter Plan of Treatment Not on file documented as of this encounter Goals Goal Patient Goal Type Associated Problems Recent Progress Patient-Stated? Author CCM Chronic Pain Care Plan Chronic Care Management Improving( 10:05 AM CHILDCARE CENTER DIRECTOR) No Bessy Mancuso, RUBIO Note: Problem: Chronic [...] (six) hours as needed for pain Reorder 01/06/2023 01/02/2023 documented as of this encounter Care Teams Submersible Pilot Relationship Specialty Start Date End Date Rohan Rothman MD [address] [place] [address] PCP - General 07/20/20 05/12/24 Reanna Polanco RN Registered Nurse 07/07/19 documented as of this encounter
--- OUTSIDE RECORDS SUMMARY | 2024-07-28 01:04 | XMS_ITS | Encounter Summary ---
Author Organization [facility] Address [address] [place] [address] Phone Care Team Providers Care Citrix Lead Name Role Phone Reanna Polanco RN [facility] Rohan Salvador MD Primary Care Provider Reason for Referral * Consultation (Routine) - Closed Specialty Diagnoses / Procedures Referred By Contac t Referred To Contact Otolaryngology Diagnoses Fusion of spine of cervical region Dysphagia, unspecified type Olivier Marion MD On license of [facility] [address] [place] [address] Phone: tel: fax: Rimma Rendon MD [address] [facility] [address] [place] [address] Phone: tel: fax: Referral ID Status Reason Start Date Expiration Date V isits Requested Visits Authorized [id number] Closed Specialty Services Required 05/23/2023 06/21/2024 12 12 Question Answer Please select the performing region: [facility] (All Locations) [[id number]] To provider: RIMMA RENDON [[id number]] # of visits: 1 Comments Re-Eval for Speech and Swallowing Reason for Visit * Reason Comments Return Patient Encounter Details Date Type Department Care Team (Late st Contact Info) Description 05/23/2023 11:20 AM CDT Office Visit [facility] Orthopaedic Surgery [address] [facility] 6th [place] [address] [place] [address] Olivier Marion MD [address] [facility] [address] [place] [address] Fusion of spine of cervical region (Primary Dx); Dysphagia, unspecified type Social History Tobacco Use [...] on file Legal Sex Female 2:03 AM ATM MANAGER Gender Identity Female 08/26/2020 6:26 AM ATM MANAGER Sexual Orientation Straight 08/26/2020 6: 26 AM ATM MANAGER documented as of this encounter Progress Notes * Olivier Marion MD - 05/23/2023 11:20 AM CDT Images from the original note were not included. Post Op Note Reason for Visit: Postoperative visit s/p C3-6 ACDF on 08/09/22 complicated by hematoma and requiring hematoma evacuation that evenign. History of Present Illness: 05/23/2023 Overall she feels she is has [...] Extremity Strength: Deltoid Biceps Triceps WristEx WristFlex Sewer Right 5 5 5 5 5 5 [...] has improved since his previous x-ray [facility] 05/23/2023 10:58 AM 05/23/2023 10:57 AM 02/07/2023 10:47 AM 02/07/2023 10:46 AM 02/07/2023 10:45 AM 11/08/2022 8:24 AM PROMIS Pain Interference 62.7 65.6 Physical Function V2.0 26.9 30.4 Anxiety V1.0 49.2 51.1 Depression 50.8 48.7 51.7 Assessments: Ms. Santiago is doing fairly well, now 6 months status post surgery. Discussion: For pain standpoint she is doing well this time she is happy with the progress she is making she isdoing home physical therapy program and doing well with this she does have some swallowing issues not severe enough to be evaluated ENT but felt that she may benefit from a speech and swallow evaluation to work on her swallowing mechanics. We gave her a referral for this today and then I would liketo see her back in 6 months she is any problems questions concerns she will follow up sooner but atthis time everything looks like it is stable and clinically she feels she is improving ____ documented in this encounter Plan of Treatment Scheduled Referrals Name Type Priority Associated Diagnoses Orde r Schedule Ambulatory referral to ENT Outpatient Referral Routine Fusion of spine of cervical region Dysphagia, unspecified type Expected: 06/06/2023 (Approximate), Expires: 05/23/2024 documented as of this encounter Goals Goal Patient Goal Type Associated Problems Recent Progress Patient-Stated? Author CCM Chronic Pain Care Plan Chronic Care Management Improving( 10:05 AM ATM MANAGER) No Bessy Mancuso RN Note: Problem: Chronic [...] Flexion And Extension 4 or 5 Views (05/23/2023 10:45 AM CDT) Anatomical Region Laterality Modality Spine N/A Computed Radiogr aphy 05/23/2023 3:42 PM CDT Impressions 05/23/2023 3:58 PM CDT C3-C6 anterior decompression and instrumented fusion with subsidence of the fused segments, most noticeable at C3-C4, unchanged fracture of C6 screw, and angular motion at the fused segments. Dictated by: Natalie Coffman M.D. The radiology attending physician has personally reviewed this study, and had reviewed and/or edited this written report and agrees with it. Electronically signed by: Francisco Haji MD, PHD Narrative 05/23/2023 3:58 PM CDT EXAMINATION: XR SPINE CERVICAL W FLEXION AND EXTENSION 4 OR 5 VIEWS HISTORY: ??Anterior instrumented cervical fusion follow-up. FINDINGS: 4 radiographs of the cervical spine is submitted for interpretation. Comparison is made to 02/07/2023. Redemonstrated anterior instrumented fusion of C3-C6 with anterior subsidence of the C3 and C4 screws. ??There is unchanged fracture of one of the C6 screws. ??There is angular excursion in all levels. Unchanged abutment of anterior and inferior aspect of C2 with the superior aspect of the plate. ??Moderate degenerative disc disease of the unfused levels. ??No acute fracture. Procedure Note Francisco Haji MD PhD - 05/23/2023 EXAMINATION: XR SPINE CERVICAL W FLEXION AND EXTENSION 4 OR 5 VIEWS HISTORY: Anterior instrumented cervical fusion follow-up. FINDINGS: 4 radiographs of the cervical spine is submitted for interpretation. Comparison is made to 02/07/2023. Redemonstrated anterior instrumented fusion of C3-C6 with anterior subsidence of the C3 and C4 screws. There is unchanged fracture of one of the C6 screws. There is angular excursion in all levels. Unchanged abutment of anterior and inferior aspect of C2 with the superior aspect of the plate. Moderate degenerative disc disease of the unfused levels. No acute fracture. IMPRESSION: C3-C6 anterior decompression and instrumented fusion with subsidence of the fused segments, most noticeable at C3-C4, unchanged fracture of C6 screw, and angular motion at the fused segments. Dictated by: Natalie Coffman M.D. The radiology attending physician has personally reviewed this study, and had reviewed and/or edited this written report and agrees with it. Electronically signed by: Francisco Haji MD, PHD us Olivier Marion MD IMG XR PROCEDURES Final Re sult documented in this encounter Visit Diagnoses Diagnosis Fusion of spine of cervical region- Primary Dysphagia, unspecified type Fusion of spine of cervical region documented in this encounter Care Teams Citrix Lead Relationship Specialty Start Date End Date Rohan Rothman MD [address] [facility] [address] [place] [id number] PCP - General 07/20/20 05/12/24 Reanna Polanco RN Registered Nurse 07/07/19 documented as of this encounter
--- OUTSIDE RECORDS SUMMARY | 2024-07-28 01:04 | XMS_ITS | Encounter Summary ---
Author Organization [facility] Address [address] [place] [address] Phone Care Team Providers Care Pediatric Genetic Counselor Name Role Phone Reanna Polanco RN [facility] Rohan Salvador MD Primary Care Provider Encounter Details Date Type Department Care Team (Late st Contact Info) Description 03/20/2023 Telephone [facility] Orthopaedic Surgery [address] [facility] Advanced Medicine 6th [place] [address] [place] [address] Olivier Marion MD [address] [facility] 6A[address]6B[address] [place] [address] Social History Tobacco Use Types [...] on file Legal Sex Female 2:03 AM LENS BLOCK GAUGER Gender Identity Female 08/26/2020 6:26 AM LENS BLOCK GAUGER Sexual Orientation Straight 08/26/2020 6: 26 AM LENS BLOCK GAUGER documented as of this encounter Miscellaneous Notes * Telephone Encounter - Gris Kidd RN - 03/20/2023 10:40 AM CDT I spoke to Annette today to follow up on her recent ENT visit. She states that she is doing so muchbetter and her symptoms have resolved. She is going to let me know if anything changes or she needsanything prior to her April appt with [facility]. documented in this encounter Plan of Treatment Not on file documented as of this encounter Goals Goal Patient Goal Type Associated Problems Recent Progress Patient-Stated? Author CCM Chronic Pain Care Plan Chronic Care Management Improving( 10:05 AM LENS BLOCK GAUGER) No Bessy Mancuso, RUBIO Note: Problem: Chronic Pain Goals: 1. Minimize further functional decline 2. Maximize quality of life 3. Control pain Strategies: - Activity/exercise program recommendation - Conservative stepwise pain medicine strategy with multi-disciplinary approach - Recommend healthy lifestyle strategies and compensatory methods as needed documented as of this encounter Visit Diagnoses Not on filedocumented in this encounter Care Teams Pediatric Genetic Counselor Relationship Specialty Start Date End Date Rohan Rothman MD [address] [place] [address] PCP - General 07/20/20 05/12/24 Reanna Polanco RN Registered Nurse 07/07/19 documented as of this encounter
--- OUTSIDE RECORDS SUMMARY | 2024-07-28 01:04 | XMS_ITS | Encounter Summary ---
Author Organization [facility] Healthcare Address [address] [place] [address] Care Team Providers Care Porcelain Buildup Assistant Name Role Phone Reanna Polanco RN [facility] Rohan Salvador MD Primary Care Provider Encounter Details Date Type Department Care Team (Latest Contact Info) Description 02/13/2023 5:10 PM CDT - 02/13/2023 11:59 PM CDT Hospital Encounter [address] [address] Chronic use of opiate drug for therapeutic purpose Discharge Disposition: Discharge to home or self [...] on file Legal Sex Female 2:03 AM OPEN PIT QUARRY SUPERVISOR Gender Identity Female 08/26/2020 6:26 AM OPEN PIT QUARRY SUPERVISOR Sexual Orientation Straight 08/26/2020 6: 26 AM OPEN PIT QUARRY SUPERVISOR documented as of this encounter Medications at [...] Plan Chronic Care Management Improving( 10:05 AM OPEN PIT QUARRY SUPERVISOR) No Bessy Mancuso, RUBIO Note: Problem: Chronic Pain Goals: 1. Minimize further functional decline 2. Maximize quality of life 3. Control pain Strategies: - Activity/exercise program recommendation - Conservative stepwise pain medicine strategy with multi-disciplinary approach - Recommend healthy lifestyle strategies and compensatory methods as needed documented as of this encounter Procedures Procedure Name Priority Date/Time Associated Diagnosis Comments DRUGS OF ABUSE SCREEN, URINE WITHOUT CONFIRMATION Routine 02/13/2023 2:08 PM CDT Chronic use of opiate drug for therapeutic purpose documented in this encounter Results * (ABNORMAL) Drugs of Abuse Screen, Urine without Confirmation (02/13/2023 2:08 PM CDT) [facility] Amphetamine, ur Not Detected CutOff 500ng/mL [facility] Comment: Interpretive Data - Amphetamines: ??Samples containing greater than 500 ng/mL d-methamphetamine ??or other cross-reacting amphetamine compounds are reported as positive. ??Amphetamine immunoassays are subject to significant false positive rates due to cross-reactivity of non-amphetamine drugs. Current Interpretive Data was last reviewed 2018. Barbiturates, ur Not Detected CutOff 200ng/mL [facility] Comment: Interpretive Data - Barbiturates: ??Samples containing greater than 200 ng/mL secobarbital or other cross-reacting barbiturate compounds are reported as positive. ??False positive and false negative results are possible. Current Interpretive Data was last reviewed 2018. Benzodiazepines, ur Not Detected CutOff 100ng/mL [facility] Comment: Interpretive Data - Benzodiazepines: ??Samples containing greater than 100 ng/mL nordiazepam or other cross-reacting compounds are reported as positive. ?? False positive and false negative results are possible. ?? Current Interpretive Data was last reviewed 2018. Cannabinoids, ur Not Detected CutOff 50 ng/mL [facility] Cocaine, ur Not Detected CutOff 150ng/mL [facility] Comment: Interpretive Data - Cocaine: ??Samples containing greater than 150 ng/mL benzoylecgonine or other cross-reacting compounds are reported as positive. False positive and false negative results are possible. Current Interpretive Data was last reviewed 2018. Fentanyl, Ur Not Detected Cutoff 1 ng/mL [facility] Comment: Interpretive Data - Fentanyls: ??Samples containing greater than 1 ng/mL fentanyl or other cross-reacting fentanyl compounds are reported as detected. ??False positive and false negative results are possible. Current Interpretive Data was last reviewed 2019. Methadone, ur Not Detected CutOff 300ng/mL [facility] Comment: Interpretive Data - Methadone: ??Samples containing greater than 300 ng/mL d,l-methadone or other cross-reacting compounds are reported as positive. ??False positive and false negative results are possible. Current Interpretive Data was last reviewed 2018. Opiates, ur Detected(A) CutOff 300ng/mL [facility] Comment: Interpretive Data - Opiates: ??Samples containing greater than 300 ng/mL morphine or other cross-reacting compounds are reported as positive. ??False positive and false negative results are possible. Current Interpretive Data was last reviewed 2018. Oxycodone, ur Not Detected CutOff 100ng/mL [facility] Comment: Interpretive Data - Oxycodone: ??Samples containing greater than 100 ng/mL oxycodone or other cross-reacting compounds are reported as positive. ??False positive and false negative results are possible. ?? Current Interpretive Data was last reviewed 2018. Phencyclidine, ur Not Detected CutOff 25 ng/mL [facility] Comment: Interpretive Data - Phencyclidine: ??Samples containing greater than 25 ng/mL phencyclidine or other cross-reacting compounds are reported as positive. ??False positive and false negative results are possible. ?? Current Interpretive Data was last reviewed 2018. Urine Creatinine 129 mg/dL [facility] Comment: Interpretive Data Urine Creatinine: < 10 mg/dL is extremely dilute = or > 10 but < 20 mg/dL is dilute = or > 20 mg/dL is normal Current Interpretive Data was last revised on 2017. Urine 02/13/2023 2:08 PM CDT 02/13/2023 6:31 PM CDT Narrative [facility] - 02/13/2023 7:25 PM CDT Drug of Abuse screening is performed by immunoassay for medical purposes only. ??This is not to be used for Pain Management purposes. us Kavya Nava MD LAB URINE ORDERABLES Final Result [facility] One [facility] Department [place] [address] documented in this encounter Visit Diagnoses Diagnosis Chronic use of opiate drug for therapeutic purpose documented in this encounter Care Teams Porcelain Buildup Assistant Relationship Specialty Start Date End Date Rohan Rothman MD [address] [facility] [address] [place] [address] PCP - General 07/20/20 05/12/24 Reanna Polanco, RN Registered Nurse 07/07/19 documented as of this encounter
--- OUTSIDE RECORDS SUMMARY | 2024-07-28 01:04 | XMS_ITS | Encounter Summary ---
Author Organization [facility] Address [address] [place] [address] Phone Care Team Providers Care Licensed Psychologist Name Role Phone Reanna Polanco RN [facility] Rohan Salvador MD Primary Care Provider Reason for Visit * Reason Onset Date Comments Appointment 02/16/2023 Encounter Details Date Type Department Care Team (Late st Contact Info) Description 02/16/2023 Telephone [facility] ENT [address] [facility] Advanced Medicine 11th [place] [address] [place] [phone] Moncho Rendon MD [address] [facility] [address] [place], [place] [id number] Appointment Social History Tobacco Use Types Packs/Day [...] on file Legal Sex Female 2:03 AM ACUTE CARE CLINICAL NURSE SPECIALIST Gender Identity Female 08/26/2020 6:26 AM ACUTE CARE CLINICAL NURSE SPECIALIST Sexual Orientation Straight 08/26/2020 6: 26 AM ACUTE CARE CLINICAL NURSE SPECIALIST documented as of this encounter Miscellaneous Notes * Telephone Encounter - Nick Thomas RMA - 02/16/2023 2:54 PM CDT Patient calling for appointment at the [facility] with Dr. Rendon. She canceled the appointment in ause it seemed as though things where getting better. She says she is now having some trouble with swallowing and a plate in her neck has moved. Scheduled an appointment for 03/15 @ the [facility] @ 2 pm. documented in this encounter Plan of Treatment Not on file documented as of this encounter Goals Goal Patient Goal Type Associated Problems Recent Progress Patient-Stated? Author CCM Chronic Pain Care Plan Chronic Care Management Improving( 10:05 AM ACUTE CARE CLINICAL NURSE SPECIALIST) No Bessy Mancuso RN Note: Problem: Chronic Pain Goals: 1. Minimize further functional decline 2. Maximize quality of life 3. Control pain Strategies: - Activity/exercise program recommendation - Conservative stepwise pain medicine strategy with multi-disciplinary approach - Recommend healthy lifestyle strategies and compensatory methods as needed documented as of this encounter Visit Diagnoses Not on filedocumented in this encounter Care Teams Licensed Psychologist Relationship Specialty Start Date End Date Rohan Rothman MD [address] [address] PCP - General 07/20/20 05/12/24 Reanna Polanco, RN Registered Nurse 07/07/19 documented as of this encounter
--- OUTSIDE RECORDS SUMMARY | 2024-07-28 01:04 | XMS_ITS | Encounter Summary ---
Author Organization [facility] Healthcare Address [address] [place] [address] Care Team Providers Care Health And Fitness Instructor Name Role Phone Reanna Polanco RN [facility] Rohan Salvador MD Primary Care Provider Reason for Referral * Diagnostic Imaging (Routine) - Closed Specialty Diagnoses / Procedures Referred By Contac t Referred To Contact Diagnoses Fusion of spine of cervical region Procedures XR Spine Cervical W Flexion And Extension 4 or 5 Views Olivier Marion MD [address] [facility] [address] [place] [address] Phone: tel: fax: Center [facility] Advanced Medicine Referral ID Status Reason Start Date Expiration Date Visits Re quested Visits Authorized [id number] Closed 11/03/2022 12/03/2023 1 1 Reason for Visit * Diagnostic Imaging (Routine) - Closed Specialty Diagnoses / Procedures Referred By Contac t Referred To Contact Diagnoses Fusion of spine of cervical region Procedures XR Spine Cervical W Flexion And Extension 4 or 5 Views Olivier Marion MD [address] [facility] [address] [place] [address] Phone: tel: fax: Center [facility] Referral ID Status Reason Start Date Expiration Date Visits Re quested Visits Authorized [id number] Closed 11/03/2022 12/03/2023 1 1 Encounter Details Date Type Department Care Team (Latest Contact Info) Description 11/08/2022 8:06 AM CDT - 11/08/2022 11:59 PM CDT Hospital Encounter [facility] [address] [place] [address] Fusion of spine of cervical region Discharge [...] on file Legal Sex Female 2:03 AM INSPECTOR SCALES Gender Identity Female 08/26/2020 6:26 AM INSPECTOR SCALES Sexual Orientation Straight 08/26/2020 6: 26 AM INSPECTOR SCALES documented as of this encounter Medications at [...] tablet (10 mg total) by mouth nightly acetaminophen 500 mg capsuleIndication s:preOP Take 2 capsules (1,000 mg total) by mouth every 6 (six) hours 30 tablet 08/12/2022 02/08/20 23 alendronate (FOSAMAX) 70 mg tabletIndications :Post-Menopausal Osteoporosis Take 1 tablet (70 mg total) by mouth once a week Sunday04/02/2020 02/26/20 24 baclofen (LIORESAL) 10 mg tablet Take 2 tablets (20 mg total) by mouth 4 (four) times a day Takes 1-2 tabs QID 240 tablet 11 04/07/2022 12/01/19 23 brexpiprazole (Rexulti) 2 mg tablet 1 tablet (2 mg total) daily 02/08/20 23 cyclobenzaprine (FLEXERIL) 10 mg tablet Take 1 tablet (10 mg total) by mouth 3 (three) times a day as needed for muscle spasms 60 tablet 3 11/01/2022 02/14/20 23 famotidine (PEPCID) 10 mg tablet Take 1 tablet (10 mg total) by mouth daily 09/18/19 24 HYDROcodone-aceta minophen (NORCO) 7.5-325 mg per tabletIndications :Pain Take 1 tablet by mouth every 6 (six) hours as needed for pain 90 tablet 11/08/2022 12/01/19 23 meloxicam (MOBIC) 7.5 mg tablet Take 1 tablet (7.5 mg total) by mouth daily 04/11/20 23 methocarbamoL (ROBAXIN) 500 mg tablet Take 2 tablets (1,000 mg total) by mouth 4 (four) times a day as needed for muscle spasms 240 tablet 2 04/07/2022 04/11/20 23 methocarbamoL (ROBAXIN) 500 mg tablet Take 2 tablets (1,000 mg total) by mouth 4 (four) times a day 240 tablet 2 10/02/2022 12/28/19 23 Opzelura 1.5 % cream 10/20/2022 08/29/19 24 senna-docusate (PERICOLACE) 8.6-50 mg Take 1 tablet by mouth nightly 60 tablet 08/12/2022 02/08/20 23 documented as of this encounter Discharge Disposition Disposition Code Departure Means Destination Discharge to home or self care documented in this encounter Plan of Treatment Not on file documented as of this encounter Goals Goal Patient Goal Type Associated Problems Recent Progress Patient-Stated? Author CCM Chronic Pain Care Plan Chronic Care Management Improving( 10:05 AM INSPECTOR SCALES) Bessy Gayle, RN Note: Problem: Chronic Pain [...] VIEWS Schedule Routine, Read Routine (OP Routine) 11/08/2022 8:17 AM CDT Fusion of spine of cervical region [...] levels. Electronically signed by: Tolu Montejo MD Narrative 11/08/2022 8:28 AM CDT EXAMINATION: XR SPINE [...] region documented in this encounter Care Teams Health And Fitness Instructor Relationship Specialty Start Date End Date Rohan Rothman MD [address] [facility] [address] [place] [address] PCP - General 07/20/20 05/12/24 Reanna Polanco RN Registered Nurse 07/07/19 documented as of this encounter
--- OUTSIDE RECORDS SUMMARY | 2024-07-28 01:04 | XMS_ITS | Encounter Summary ---
Author Organization [facility] Healthcare Address [address] [facility] [place] [address] Care Team Providers Care Business Technology Professor Name Role Phone Reanna Polanco RN [facility] Rohan Salvador MD Primary Care Provider Encounter Details Date Type Department Care Team (Late st Contact Info) Description 12/27/2022 Orders Only [facility] [address] [facility] [address] [place], [place] [id number] Nancy Fernandez MD [address] [facility] [address] [facility] [phone] [place], [place] [phone] Social History Tobacco Use Types Packs/Day Years [...] on file Legal Sex Female 2:03 AM COTTON GIN YARD SUPERVISOR Gender Identity Female 08/26/2020 6:26 AM COTTON GIN YARD SUPERVISOR Sexual Orientation Straight 08/26/2020 6: 26 AM COTTON GIN YARD SUPERVISOR documented as of this encounter Ordered Prescriptions Prescription Sig Dispense Quantity Refills Last Filled Start Date End Date methocarbamoL (ROBAXIN) 500 mg tablet Take 2 tablets (1,000 mg total) by mouth 4 (four) times a day 60 tablet 2 12/27/2022 3 methocarbamoL (ROBAXIN) 500 mg tablet Take 2 tablets (1,000 mg total) by mouth 4 (four) times a day 240 tablet 2 12/27/2022 3 documented in this encounter Plan of Treatment Not on file documented as of this encounter Goals Goal Patient Goal Type Associated Problems Recent Progress Patient-Stated? Author CCM Chronic Pain Care Plan Chronic Care Management Improving( 10:05 AM COTTON GIN YARD SUPERVISOR) No Bessy Mancuso RN Note: Problem: Chronic [...] Discontinue Reason Start Date End Da te methocarbamoL (ROBAXIN) 500 mg tablet Take 2 tablets (1,000 mg total) by mouth 4 (four) times a day Reorder 10/02/2022 12/27/2022 methocarbamoL (ROBAXIN) 500 mg tablet Take 2 tablets (1,000 mg total) by mouth 4 (four) times a day Reorder 12/27/2022 12/27/2022 documented as of this encounter Care Teams Business Technology Professor Relationship Specialty Start Date End Date Rohan Rothman MD [address] [facility] [address] [address] PCP - General 07/20/20 05/12/24 Reanna Polanco, RN Registered Nurse 07/07/19 documented as of this encounter
--- OUTSIDE RECORDS SUMMARY | 2024-07-28 01:04 | XMS_ITS | Encounter Summary ---
Author Organization [facility] Healthcare Address [address] [facility] [place] [address] Care Team Providers Care Physical Education Department Chair Name Role Phone Reanna Polanco RN [facility] Rohan Salvador MD Primary Care Provider Encounter Details Date Type Department Care Team (Late st Contact Info) Description 02/13/2023 Orders Only [facility] [place] [facility] [address] [facility] [address] [place] [phone] Annie Godoy NP [address] [place], [place] [phone] 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 Author CCM Chronic Pain Care Plan Chronic Care Management Improving( 10:05 AM GLASS DRILLER) No Bessy Mancuso, RUBIO Note: Problem: Chronic Pain Goals: 1. Minimize further functional decline 2. Maximize quality of life 3. Control pain Strategies: - Activity/exercise program recommendation - Conservative stepwise pain medicine strategy with multi-disciplinary approach - Recommend healthy lifestyle strategies and compensatory methods as needed documented as of this encounter Visit Diagnoses Diagnosis Chronic use of opiate drug for therapeutic purpose- Primary documented in this encounter Care Teams Physical Education Department Chair Relationship Specialty Start Date End Date Rohan Rothman MD [address] [facility] [address] [place] [address] PCP - General 07/20/20 05/12/24 Reanna Polanco RN Registered Nurse 07/07/19 documented as of this encounter
--- OUTSIDE RECORDS SUMMARY | 2024-07-28 01:04 | XMS_ITS | Encounter Summary ---
Author Organization [facility] Address [address] [place] [address] Phone Care Team Providers Care Crating And Moving Estimator Name Role Phone Reanna Polanco RN [facility] Rohan Salvador MD Primary Care Provider Reason for Visit * Reason Comments Dysphagia Encounter Details Date Type Department Care Team (Late st Contact Info) Description 03/15/2023 2:00 PM CDT Office Visit [place] [facility] ([facility]) - [facility] ENT [address] [facility] 11th [place] [address] [place] [address] Moncho Rendon MD [address] [facility] [address] [place] [address] Dysphonia (Primary Dx); Unilateral complete paralysis of vocal cord Social History Tobacco Use Types Packs/Day Years [...] file Legal Sex Female 2:03 AM CARE GIVER Gender Identity Female 08/26/2020 6:26 AM CARE GIVER Sexual Orientation Straight 08/26/2020 6: 26 AM CARE GIVER documented as of this encounter Patient Instructions * Patient Instructions* Moncho Rendon MD - 03/15/2023 2:00 PM CDT Plan for managing thick mucus: Excellent oral hydration, focusing on plain water, with avoidance of caffeine, sugar, and artificial sweeteners Add moisture to the air that you breathe. This can be accomplished with a home or room humidifier, by breathing in steam (like from a hot shower or bowl of hot water), or by using a personal steam inhalation device. Add moisture directly to your nose and throat with a saline nasal rinse. The most popular brands and NeilMed and NetiPot. Available at any drug store or through online retailers. Plain Mucinex, avoiding decongestants, cough suppressants, and allergy medication documented in this encounter Progress Notes * Moncho Rendon MD - 03/15/2023 2:00 PM CDT Images from the original note were not included. [facility] Department of Otolaryngology - Head & Neck Surgery [facility] Return Visit PATIENT NAME: Annette Santiago : 1960 DATE: 03/15/2023 PATIENT ID: Annette Santiago is a 62 y.o. previously evaluated and treated for dysphagia after ACDF. LAST SURGERY: ACDF, 08/09/2022 LAST VISIT: 09/14/2022 Claudia Santiago is a 62 y.o. female who presents today for follow-up of dysphagia. Her initial visit was about 1 month after her anterior approach spine surgery. She had findings including left-sided vocal fold immobility as well as pharyngeal fullness and encroachment. No procedures were performed, and no specific treatment was undertaken for these problems. She reports that she had spontaneous improvement of symptoms over several months after the last visit. This included improvement of her voice and improvement of her swallow until it was almost normal. She hadspontaneous worsening of her symptoms in November of this summer. This potentially coincides with new imaging findings of hardware migration and possible nonunion of her fusion. Her swallow symptoms worsened to the point where she was having trouble swallowing water again. She has now had spontaneous improvement to the point where she can swallow everything but bread and raw vegetables. She also has voice complaints. She feels strain and fatigue. She feels like her voice is close to her normal voice quality with the exception of the strain. REVIEW OF SYSTEMS: No changes since last office visit. Objective PHYSICAL EXAM: Constitutional: There were no vitals taken for this visit. General: Well-developed, well-nourished in no apparent distress. [...] EXAM Procedure: Flexible transnasal laryngeal videostroboscopy Indication: Dysphonia, Concern for vocal fold motion abnormality, and Dysphagia In a separately identifiable procedure to better [...] findings were noted: - General: mucus consistency thick - Nasopharynx: no purulence or polyps - Hypopharynx: no lesions; no erythema - Supraglottis: no lesions; no erythema or edema; mild constriction during phonation - Vocal Fold Mobility: left side hypomobile, subtle - Vocal Fold Anatomy: normal color; no lesions; no edema - Mucosal wave pattern: Mucosal wave fully intact bilaterally - Phase symmetry: no vertical phase asymmetry - Closure: full closure on videostroboscopy - Subglottis: subglottis patent without evidence of stenosis DATA REVIEWED: 03/15/2023 Lab Tests: no Pathology Reports: no Radiology Reports: Reviewed cervical spine x-ray which shows migration of plate, fracture of C6 screw Old Records/Discussion with MD: Prior encounter notes reviewed as well as relevant notes from otherproviders. Assessment/Plan Annette Santiago is a 62 y.o. referred for evaluation of chronic dysphagia as well as chronic dysphonia. Evaluation including laryngeal videostroboscopy was significant for return of motion on left side there is a subtle hypomobility, but for the most part, the motion has returned. The pharyngeal wall fullness has also resolved. There was findings of dryness and thick mucus. The findings were explained in detail to the patient. We discussed that overall, her exam is reassuring with regards to her recovery after surgery. She has had return of motion of her left vocal fold. Her voice changes are currently not being driven by glottic incompetence or glottic motion changes. Also, I suspect that her swallow symptoms could be attributable to her dryness as much as any soft tissue changes from the surgery. I recommended excellent hydration and avoidance of dehydrating beverages including caffeine, sugar, artificial sweeteners, and alcohol. I recommended additional humidification via room/whole home humidifier or steam inhalation. Also recommended nasal saline sprays or rinses to further dilute the nasal drainage. Suggested Mucinex as a pharmacological adjunct, in addition to the other measures. The patient was also provided with written instructions. I recommended no additional workupfor her swallowing at this time. MEDICATION ORDERS: No orders of the defined types were placed in this encounter. OTHER ORDERS: No orders of the defined types were placed in this encounter. OR ORDERS: Return DISPOSITION: Return if symptoms worsen or fail to improve. Moncho Rendon M.D. Ivf Embryologist [facility] Department of Otolaryngology - Head & Neck Surgery [facility] Portions of this note were dictated using M*Modal Fluency Direct. Spray Gun Sizer errors and homophone substitutions may occur. documented in this encounter Plan of Treatment Not on file documented as of this encounter Goals Goal Patient Goal Type Associated Problems Recent Progress Patient-Stated? Author CCM Chronic Pain Care Plan Chronic Care Management Improving( 10:05 AM CARE GIVER) No Bessy Mancuso RN Note: Problem: Chronic Pain Goals: 1. Minimize further functional decline 2. Maximize quality of life 3. Control pain Strategies: - Activity/exercise program recommendation - Conservative stepwise pain medicine strategy with multi-disciplinary approach - Recommend healthy lifestyle strategies and compensatory methods as needed documented as of this encounter Visit Diagnoses Diagnosis Dysphonia- Primary Unilateral complete paralysis of vocal cord Unilateral complete paralysis of vocal cords or larynx documented in this encounter Care Teams Crating And Moving Estimator Relationship Specialty Start Date End Date Rohan Rothman MD [address] [facility] [address] [place] [address] PCP - General 07/20/20 05/12/24 Reanna Polanco RN Registered Nurse 07/07/19 documented as of this encounter
--- OUTSIDE RECORDS SUMMARY | 2024-07-28 01:04 | XMS_ITS | Encounter Summary ---
Author Organization [facility] Healthcare Address [address] [facility] [place] [address] Care Team Providers Care Oven Operator Automatic Name Role Phone Reanna Polanco RN [facility] Rohan Salvador MD Primary Care Provider Reason for Visit * Reason Comments Neck Pain Left side, radiated down left shoulder to pec muscles back pain Mid to low back Hip Pain Right side Encounter Details Date Type Department Care Team (Latest Contact Info) Description 10/31/2022 1:49 PM CDT - 10/31/2022 11:59 PM CDT Hospital Encounter [facility] [place] [facility] [address] [facility] [address] [place] [address] Nancy Fernandez MD [address] [facility] [phone] [place] [address] Fibromyalgia (Primary Dx); Chronic use of opiate drug for therapeutic purpose; Other secondary scoliosis, lumbar region; Cervical post-laminectomy syndrome Discharge Disposition: Discharge to home or self [...] on file Legal Sex Female 2:03 AM TRIP RIDER Gender Identity Female 08/26/2020 6:26 AM TRIP RIDER Sexual Orientation Straight 08/26/2020 6: 26 AM TRIP RIDER documented as of this encounter Last Filed Vital Signs Vital Sign Reading Time Taken Comments Blood Pressure 140/72 10/31/2022 2:03 PM CDT Pulse 88 10/31/2022 2:03 PM CDT Temperature 36.6 ??C (97.8 ??F) 10/31/2022 2:03 PM CD T Respiratory Rate 16 10/31/2022 2:03 PM CDT Oxygen Saturation 96% 10/31/2022 2:03 PM CDT Inhaled Oxygen Concentration - - Weight 65.8 kg (145 lb) 10/31/2022 2:03 PM CDT Height 172.7 cm (5' 8 ) 10/31/2022 2:03 PM CDT Body Mass Index 22.05 10/31/2022 2:03 PM CDT documented in this encounter Medications at Time [...] a day as needed CBD DULoxetine DR BEE) 60 mg capsuleIndication s:Anxiety with Depression Take [...] hours as needed for pain 90 tablet 10/08/2022 11/06/19 23 meloxicam (MOBIC) 7.5 mg tablet Take [...] 02/08/20 23 documented as of this encounter Ordered Prescriptions Prescription Sig Dispense Quantity Refills Last Filled Start Date End Date cyclobenzaprine (FLEXERIL) 10 mg tablet Take 1 tablet (10 mg total) by mouth 3 (three) times a day as needed for muscle spasms 60 tablet 3 10/31/2022 10/31/2022 documented in this encounter Discharge Disposition Disposition Code Departure Means Destination Discharge to home or self care documented in this encounter Progress Notes * Nancy Fernandez MD - 10/31/2022 2:30 PM CDT Patient Name: Annette Santiago : 1960 Today's Date: 10/31/2022 PCP: Rohan Rothman MD Referring: Rohan Rothman, * Chief Complaint Patient presents with Neck Pain Left side, radiated down left shoulder to pec muscles back pain Mid to low back Hip Pain Right side INTERVAL HISTORY (10/31/2022): Annette Santiago returns to clinic today. She presents for ongoing management of neck and low backpain. Dr. Soto post op visit 09/21/22- advised to avoid NSAIDs if able but if she is having a lot of low back pain ok to take some OTC NSAIDs undertanding this increases the risk of pseudo/nonunion. [facility] for physical therapy. Pain is at low back and neck. Neck pain is worse Radiation: left upper extremity (to the upper arm) and left anterior upper chest Numbness: none Weakness: none Pain Assessment Patient's Stated Pain Goal: 5 Pain Location: Neck Pain Radiating Towards: left shoulder and pec muscle Pain Descriptors: Nagging, Burning, Tiring Pain Frequency: Constant/continuous Last visit 09/08/22 we did the following: Intervention: bilateral cluneal nerve block. Minimal relief Medication adjustments: none Referrals: none Current Pain meds: Pain Medications acetaminophen 500 mg capsule Take 2 capsules (1,000 mg total) by mouth every 6 (six) hours baclofen (LIORESAL) 10 mg tablet Take 2 tablets (20 mg total) by mouth 4 (four) times a day Takes 1-2 tabs QID brexpiprazole (Rexulti) 2 mg tablet 1 tablet (2 mg total) daily DULoxetine DR (CYMBALTA) 60 mg capsule Take 1 capsule (60 mg total) by mouth 2 (two) times a day HYDROcodone-acetaminophen (NORCO) 7.5-325 mg per tablet Take 1 tablet by mouth every 6 (six) hours as needed for pain meloxicam (MOBIC) 7.5 mg tablet Take 1 tablet (7.5 mg total) by mouth daily methocarbamoL (ROBAXIN) 500 mg tablet Take 2 tablets (1,000 mg total) by mouth 4 (four) times a day cyclobenzaprine (FLEXERIL) 10 mg tablet Take 1 tablet (10 mg total) by mouth 3 (three) times a day as needed for muscle spasms Physical Exam Vitals: 10/31/22 1403 BP: 140/72 Pulse: 88 Resp: 16 Temp: 97.8 ??F (36.6 ??C) TempSrc: Temporal SpO2: 96% Weight: 65.8 kg (145 lb) Height: 172.7 cm (5' 8 ) Body mass index is 22.05 kg/m??. Physical Exam Constitutional: General: She is not in acute distress. Appearance: She is well-developed. Musculoskeletal: Comments: Diffuse upper and lower back ttp Scoliosis Skin: General: Skin is warm and dry. [...] therapeutic purpose Other secondary scoliosis, lumbar region Cervical post-laminectomy syndrome Plan Interventions: discussed TPI, she has not had benefit in the past. Medications: continue current meds for now Taking extra doses of methocarbamol and baclofen at night. Sleep is poor. Discussed trial of cyclobenzaprine at night instead of extra methocarmamol and baclofen. Discussed this will be 3 different muscle relaxants, but all with different mechanisms of action. She is benefiting from muscle relaxants and heat. The patient shows no signs of aberrant [...] the lowest dose necessary. Chronic Opioid Therapy 10/31/2022 Current analgesics: hydrocodone/APAP 7.5/325 1 tab every 4 hours (currently prescribed by surgeon. Patient taking 1 tab every 6 hours) Daily dose (MME): 30 Benzodiazepines: no Meds locked up: She keeps [...] of the above regimen. Nancy Fernandez MD documented in this encounter Plan of Treatment Not on file documented as of this encounter Goals Goal Patient Goal Type Associated Problems Recent Progress Patient-Stated? Author JHONATAN Chronic Pain Care Plan Chronic Care Management Improving( 10:05 AM TRIP RIDER) No Bessy Mancuso RN Note: Problem: Chronic [...] therapeutic purpose Other secondary scoliosis, lumbar region Cervical post-laminectomy syndrome Postlaminectomy syndrome, cervical region documented in this encounter Discontinued Medications Medication Sig Discontinue Reason Start Date End Da te ARIPiprazole (ABILIFY) 15 mg tablet Take 7.5 mg by mouth nightly Total 12.5 ayt HS Therapy completed 10/31/2022 ARIPiprazole (ABILIFY) 5 mg tablet Take 5 mg by mouth nightly Total 12.5 mg Therapy completed 04/20/2022 10/31/2022 cetirizine 10 mg capsuleIndications:Seaso nal Allergic Rhinitis Take 10 mg by mouth nightly Therapy completed 10/31/2022 gabapentin (NEURONTIN) 300 mg capsule Take 1 capsule (300 mg total) by mouth 2 (two) times a day Therapy completed 08/12/2022 10/31/2022 documented as of this encounter Historical Medications * This list may reflect changes made after this encounter. magnesium gluconate 200 mg tabletIndications :hypomagnesemia Take 2.5 tablets (500 mg total) by mouth 2 (two) times a day Opzelura 1.5 % cream 10/20/2022 08/29/2023 brexpiprazole (Rexulti) 2 mg tablet 1 tablet (2 mg total) daily 02/07/2023 famotidine (PEPCID) 10 mg tablet Take 1 tablet (10 mg total) by mouth daily 09/18/2023 meloxicam (MOBIC) 7.5 mg tablet Take 1 tablet (7.5 mg total) by mouth daily 04/11/2023 added in this encounter Care Teams Oven Operator Automatic Relationship Specialty Start Date End Date Rohan Rothman MD [address] [facility] [address] [place] [address] PCP - General 07/20/20 05/12/24 Reanna Polanco RN Registered Nurse 07/07/19 documented as of this encounter
--- OUTSIDE RECORDS SUMMARY | 2024-07-28 01:04 | XMS_ITS | Encounter Summary ---
Author Organization [facility] Healthcare Address [address] [place] [address] Care Team Providers Care Door Cutter Name Role Phone Reanna Polanco RN [facility] Rohan Salvador MD Primary Care Provider Encounter Details Date Type Department Care Team (Late st Contact Info) Description 10/02/2022 Orders Only [facility] [address] [facility] [address] [place], [place] [phone] Heriberto Webster MD PhD [address] [place] [address] Social History Tobacco Use Types Packs/Day Years Used Date Smoking Tobacco: Former Cigarettes 1 5 0 11/27/1978 - 09/28/1983 Smokeless Tobacco: Never Alcohol Use Standard Drinks/Week Comments No 0 (1 standard drink = 0.6 oz pur e alcohol) denies AUDIT-C Answer Date Recorded Q1: How often do you have a drink containing alcohol? Never 09/08/2022 Q2: How many drinks containi ng alcohol do you have on a typical day when you are drinking? Patient does not drink Frequency of Binge Drinking Not on file 08/30 Hunger Vital Sign Answer Date Recorded Within [...] on file Legal Sex Female 2:03 AM DRIVEWAY ATTENDANT Gender Identity Female 08/26/2020 6:26 [address]IVEWAY ATTENDANT Sexual Orientation Straight 08/26/2020 6: [address]IVEWAY ATTENDANT documented as of this encounter Ordered Prescriptions Prescription Sig Dispense Quantity Refills Last Filled Start Date End Date methocarbamoL (ROBAXIN) 500 mg tablet Take 2 tablets (1,000 mg total) by mouth 4 (four) times a day 240 tablet 2 10/02/2022 3 documented in this encounter Plan of Treatment Not on file documented as of this encounter Goals Goal Patient Goal Type Associated Problems Recent Progress Patient-Stated? Author CCM Chronic Pain Care Plan Chronic Care Management Improving( 10:05 AM DRIVEWAY ATTENDANT) No Bessy Mancuso, RN Note: Problem: Chronic [...] 2 tablets (1,000 mg total) by mouth 3 (three) times a day 09/27/2022 10/02/2022 documented as of this encounter Care Teams Door Cutter Relationship Specialty Start Date End Date Rohan Rothman MD [address] [place] [address] PCP - General 07/20/20 05/12/24 Reanna Polanco RN Registered Nurse 07/07/19 documented as of this encounter
--- OUTSIDE RECORDS SUMMARY | 2024-07-28 01:04 | XMS_ITS | Encounter Summary ---
Author Organization [facility] Healthcare Address [address] [place] [address] Care Team Providers Care Applications Support Engineer Name Role Phone Reanna Polanco RN [facility] Rohan Salvador MD Primary Care Provider Reason for Visit * Reason Onset Date Comments Med Refill 12/04/2022 Encounter Details Date Type Department Care Team (Late st Contact Info) Description 12/04/2022 Telephone [facility] [address] [facility] [address] [place], [place] [id number] Nancy Fernandez MD [address] [facility] [address] [facility] [phone] [place], [place] [id number] Med Refill Social History Tobacco Use Types [...] on file Legal Sex Female 2:03 AM EXTRUDING PRESS OPERATOR Gender Identity Female 08/26/2020 6:26 AM EXTRUDING PRESS OPERATOR Sexual Orientation Straight 08/26/2020 6: 26 AM EXTRUDING PRESS OPERATOR documented as of this encounter Miscellaneous Notes * Telephone Encounter - Smita Whalen RN - 12/04/2022 4:22 PM CDT Needed clarification of dosage of baclofen, 10 mg tab 1-2 tabs, 4 times daily, 90 day supply, w 3 refills. documented in this encounter Plan of Treatment Not on file documented as of this encounter Goals Goal Patient Goal Type Associated Problems Recent Progress Patient-Stated? Author CCM Chronic Pain Care Plan Chronic Care Management Improving( 10:05 AM EXTRUDING PRESS OPERATOR) No Bessy Mancuso RN Note: Problem: Chronic Pain Goals: 1. Minimize further functional decline 2. Maximize quality of life 3. Control pain Strategies: - Activity/exercise program recommendation - Conservative stepwise pain medicine strategy with multi-disciplinary approach - Recommend healthy lifestyle strategies and compensatory methods as needed documented as of this encounter Visit Diagnoses Not on filedocumented in this encounter Care Teams Applications Support Engineer Relationship Specialty Start Date End Date Rohan Rothman MD [address] [place] [address] PCP - General 07/20/20 05/12/24 Reanna Polanco, RN Registered Nurse 07/07/19 documented as of this encounter
--- OUTSIDE RECORDS SUMMARY | 2024-07-28 01:04 | XMS_ITS | Encounter Summary ---
Author Organization [facility] Healthcare Address [address] [facility] [place] [address] Care Team Providers Care Main Galley Scullion Name Role Phone Reanna Polanco RN [facility] Rohan Salvador MD Primary Care Provider Encounter Details Date Type Department Care Team (Latest Contact Info) Description 02/07/2023 10:24 AM CDT - 02/07/2023 11:59 PM CDT Hospital Encounter [facility] [address] [place] [id number] Olivier Marion MD [facility] [place] [address] Spinal stenosis in cervical region Discharge Disposition: [...] on file Legal Sex Female 2:03 AM WIPING CLOTH CUTTER Gender Identity Female 08/26/2020 6:26 AM WIPING CLOTH CUTTER Sexual Orientation Straight 08/26/2020 6: 26 AM WIPING CLOTH CUTTER documented as of this encounter Medications at [...] QID 240 tablet 11 12/01/2022 10/18/19 24 cyclobenzaprine (FLEXERIL) 10 mg tablet Take 1 [...] Plan Chronic Care Management Improving( 10:05 AM WIPING CLOTH CUTTER) Bessy Gayle, RN Note: Problem: Chronic Pain [...] VIEWS Schedule Routine, Read Routine (OP Routine) 02/07/2023 10:41 AM CDT Spinal stenosis in cervical region documented in this encounter Results [...] it. Electronically signed by: Yahir Mcintosh M.D. Olivier Marion MD IMG XR PROCEDURES Final Re sult documented in this encounter Visit Diagnoses Diagnosis Spinal stenosis in cervical region documented in this encounter Care Teams Main Galley Scullion Relationship Specialty Start Date End Date Rohan Rothman MD [address] [facility] [address] [place] [address] PCP - General 07/20/20 05/12/24 Reanna Polanco, RUBIO Registered Nurse 07/07/19 documented as of this encounter
--- OUTSIDE RECORDS SUMMARY | 2024-07-28 01:04 | XMS_ITS | Encounter Summary ---
Author Organization [facility] Healthcare Address [address] [place] [address] Care Team Providers Care Fire And Explosion Investigator Name Role Phone Reanna Polanco RN [facility] Rohan Salvador MD Primary Care Provider Encounter Details Date Type Department Care Team (Latest Contact Info) Description 05/23/2023 10:32 AM CDT - 05/23/2023 11:59 PM CDT Hospital Encounter [facility] [address] [place] [address] Fusion of spine of cervical region Discharge [...] on file Legal Sex Female 2:03 AM ARSON AND BOMB INVESTIGATOR Gender Identity Female 08/26/2020 6:26 AM ARSON AND BOMB INVESTIGATOR Sexual Orientation Straight 08/26/2020 6: 26 AM ARSON AND BOMB INVESTIGATOR documented as of this encounter Medications at [...] Plan Chronic Care Management Improving( 10:05 AM ARSON AND BOMB INVESTIGATOR) No Bessy Mancuso, RN Note: Problem: Chronic [...] VIEWS Schedule Routine, Read Routine (OP Routine) 05/23/2023 10:45 AM CDT Fusion of spine of cervical [...] region documented in this encounter Care Teams Fire And Explosion Investigator Relationship Specialty Start Date End Date Rohan Rothman MD [address] [facility] [address] [place] [address] PCP - General 07/20/20 05/12/24 Reanna Polanco RN Registered Nurse 07/07/19 documented as of this encounter
--- OUTSIDE RECORDS SUMMARY | 2024-07-28 01:04 | XMS_ITS | Encounter Summary ---
Author Organization [facility] Healthcare Address [address] [facility] [place] [address] Care Team Providers Care Tire Inspector Name Role Phone Reanna Polanco RN [facility] Rohan Salvador MD Primary Care Provider Encounter Details Date Type Department Care Team (Late st Contact Info) Description 09/27/2022 Orders Only [facility] [address] [facility] Advanced Medicine [address] [place], [place] [phone] Nancy Fernandez MD [address] [facility] [address] [facility] [phone] [place], [place] [id number] Social History Tobacco Use Types Packs/Day Years [...] on file Legal Sex Female 2:03 AM HISTOPATHOLOGY TECHNICIAN Gender Identity Female 08/26/2020 6:26 AM HISTOPATHOLOGY TECHNICIAN Sexual Orientation Straight 08/26/2020 6: 26 AM HISTOPATHOLOGY TECHNICIAN documented as of this encounter Ordered Prescriptions Prescription Sig Dispense Quantity Refills Last Filled Start Date End Date methocarbamoL (ROBAXIN) 500 mg tablet Take 2 tablets (1,000 mg total) by mouth 3 (three) times a day 180 tablet 11 09/27/2022 3 documented in this encounter Plan of Treatment Not on file documented as of this encounter Goals Goal Patient Goal Type Associated Problems Recent Progress Patient-Stated? Author CCM Chronic Pain Care Plan Chronic Care Management Improving( 10:05 AM HISTOPATHOLOGY TECHNICIAN) No Bessy Mancuso, RUBIO Note: Problem: Chronic [...] Reason Start Date End Da te methocarbamoL 1,000 mg tablet Take 1,000 mg by mouth every 8 (eight) hours 09/26/2022 09/27/2022 documented as of this encounter Care Teams Tire Inspector Relationship Specialty Start Date End Date Rohan Rothman MD [address] [facility] [address] [place] [address] PCP - General 07/20/20 05/12/24 Reanna Polanco, RN Registered Nurse 07/07/19 documented as of this encounter
--- OUTSIDE RECORDS SUMMARY | 2024-07-28 01:05 | XMS_ITS | Encounter Summary ---
Author Organization [facility] Address [address] [place] [address] Phone Care Team Providers Care Flume Ride Operator Name Role Phone Reanna Polanco RN [facility] Rohan Salvador MD Primary Care Provider Reason for Referral * Diagnostic Imaging (Routine) - Closed Specialty Diagnoses / Procedures Referred By Contac t Referred To Contact Diagnoses Spinal stenosis in cervical region Procedures XR Spine Cervical W Flexion And Extension 4 or 5 Views Olivier Marion MD [address] [facility] [place] [address] Phone: tel: fax: [facility] Referral ID Status Reason Start Date Expiration Date Visits Re quested Visits Authorized [id number] Closed 09/20/2022 10/20/2023 1 1 KFURTER INSPECTOR Encounter Details Date Type Department Care Team (Late st Contact Info) Description 09/21/2022 1:20 PM FRANKFURTER INSPECTOR Office Visit [facility] Orthopaedic Surgery [address] [place] [address] [facility] 12th [place] [address] [place] [address] Olivier Marion MD [address] [facility] [place] [address] Spinal stenosis in cervical region (Primary Dx); Cervical spondylosis with myelopathy; Other secondary scoliosis, lumbar region; Fusion of spine of cervical region Social History Tobacco Use Types Packs/Day Years [...] on file Legal Sex Female 2:03 AM FRANKFURTER INSPECTOR Gender Identity Female 08/26/2020 6:26 AM FRANKFURTER INSPECTOR Sexual Orientation Straight 08/26/2020 6: 26 AM FRANKFURTER INSPECTOR documented as of this encounter Last Filed Vital Signs Vital Sign Reading Time Taken Comments Blood Pressure - - Pulse - - Temperature - - Respiratory Rate - - Oxygen Saturation - - Inhaled Oxygen Concentration - - Weight 64.4 kg (142 lb) 09/21/2022 1:26 PM FRANKFURTER INSPECTOR Height 172.7 cm (5' 8 ) 09/21/2022 1:26 PM FRANKFURTER INSPECTOR Body Mass Index 21.59 09/21/2022 1:26 PM FRANKFURTER INSPECTOR documented in this encounter Progress Notes * Olivier Marion MD - 09/21/2022 1:20 PM CST Images from the original note were not included. Post Op Note Reason for Visit: On 08/09/22 she underwent Status post Anterior cervical decompression with removal of posterior osteophytes C3-C4 Anterior cervical decompression with removal of posterior osteophytes C4-C5 Anterior cervical decompression with removal of posterior osteophytes C5-C6 Anterior cervical fusion with allograft C3-C6 Anterior cervical instrumentation with Biomet Maxan Plate C3-C6 on 08/09/2022 With hematoma evacuation . History of Present Illness: Ms. Santiago returns today approximately 6 weeks status post anterior cervical decompression and fusion postoperatively she developed a hematoma that night that went back for emergent surgery for irrigation debridement of the hematoma overall she feels she is doing okay. She does have some minor hoarseness which she feels it is improving, and has been seeing ENT and they describe some minor a leftvocal cord palsy but it seems to be temporal. As almost all fully resolved her swallowing issues. She does describe some posterior neck tightness. She is overall very very happy with her outcomes in terms of balance and bilateral upper and bilateral lower extremity strength and function Major Findings: There were no vitals taken [...] touch in all major dermatomes. The incision ishealing well Upper Extremity Strength: Deltoid Biceps Triceps WristEx WristFlex Budget Assistant Right 5 5 5 5 5 5 Left 5 5 5 5 5 5 Lower Extremity Strength: Iliopsoas Quadriceps Hamstrings Tibialis Anterior EHL Gastroc Right 5 5 5 5 5 5 Left 5 5 5 5 5 5 No clonus or hyperreflexia Promis PROMIS 09/21/2022 08/24/2022 07/20/2022 07/19/2022 07/06/2022 06/05/2022 Pain Interference 68.7 70.2 66.9 70.3 70.5 61.4 Physical Function V2.0 24.5 27.8 26.9 27.9 28.8 31.1 Anxiety V1.0 49.9 45.7 46.7 48.7 47.9 45.9 Depression 51.3 43.6 48.1 48.2 45.8 49.9 Jesús Mathis M.D. Orthopaedic Surgery - Spine Division [facility] in [facility] I have seen and examined the patient on 09/21/2022. I agree with the findings and plan of care as documented in the resident's/fellow's note.. Olivier Marion MD Assessments: Ms. Santiago is doing okay 6 week(s) post doing ok Discussion: This time she is doing great from her surgery. She is following up with ENT regarding her partial left-sided vocal cord paralysis. She has been discussing with them whether it is worth or not obtaining an injection into this left vocal cord/nerve. She said that since it is improving and there are episodes were no hoarseness is there she will continue to wait but if it does not with the next monthshe will likely have the injection. In regards to medication she describes that she is having some pain in her low back as he had before, and wants to start using NSAIDs sooner than later. We advisedagainst it, however if her low lumbar spine is causing substantial pain it is okay for her to take some [id number] NSAIDs. She understands that this will put her high-risk for pseudo/nonunion of Her ACDF. Today's visit we will send her for script for physical therapy. We will see her again in 6 weeks for the three-month follow-up visit At that time we will obtain new radiographs of her cervical spine The patients questions were answered in detail. ____ documented in this encounter Plan of Treatment Not on file documented as of this encounter Goals Goal Patient Goal Type Associated Problems Recent Progress Patient-Stated? Author CCM Chronic Pain Care Plan Chronic Care Management Improving( 10:05 AM FRANKFURTER INSPECTOR) No Bessy Mancuso, RUBIO Note: Problem: Chronic [...] Flexion And Extension 4 or 5 Views (09/21/2022 1:23 PM FRANKFURTER INSPECTOR) Anatomical Region Laterality Modality Spine N/A Computed Radiogr aphy 09/21/2022 2:21 PM FRANKFURTER INSPECTOR Impressions 09/21/2022 4:02 PM FRANKFURTER INSPECTOR 1. ??Anterior cervical discectomy and instrumented fusion C3-C6 with angular excursion at C3-C4 and C4-C5 with bending. 2. ??Mild anterolisthesis of C2 on C3 which does not change with flexion but resolves with extension. Dictated by: Fer Molina M.D. The radiology attending physician has personally reviewed this study, and had reviewed and/or edited this written report and agrees with it. Electronically signed by: Devan Desouza MD Narrative 09/21/2022 4:02 PM FRANKFURTER INSPECTOR EXAMINATION: XR SPINE CERVICAL W FLEXION AND EXTENSION 4 OR 5 VIEWS HISTORY: Anterior cervical discectomy and fusion FINDINGS: 4 views of the cervical spine including lateral flexion and extension views are submitted for interpretation with comparison made to prior examination 08/12/2022. There are postoperative changes of anterior cervical discectomy and instrumented fusion C3-C6, similar to prior examination. ??Interval improvement in prevertebral soft tissue swelling and removal of surgical drain. ??There is angular excursion at C3-C4 and C4-C5 with bending. ?? There is mild anterolisthesis of C2 on C3 which does not change with flexion but resolves with extension. ??Moderate degenerative disc disease at the unfused segments. Procedure Note Devan Desouza MD - 09/21/2022 EXAMINATION: XR SPINE CERVICAL W FLEXION AND EXTENSION 4 OR 5 VIEWS HISTORY: Anterior cervical discectomy and fusion FINDINGS: 4 views of the cervical spine including lateral flexion and extension views are submitted for interpretation with comparison made to prior examination 08/12/2022. There are postoperative changes of anterior cervical discectomy and instrumented fusion C3-C6, similar to prior examination. Interval improvement in prevertebral soft tissue swelling and removal of surgical drain. There is angular excursion at C3-C4 and C4-C5 with bending. There is mild anterolisthesis of C2 on C3 which does not change with flexion but resolves with extension. Moderate degenerative disc disease at the unfused segments. IMPRESSION: 1. Anterior cervical discectomy and instrumented fusion C3-C6 with angular excursion at C3-C4 and C4-C5 with bending. 2. Mild anterolisthesis of C2 on C3 which does not change with flexion but resolves with extension. Dictated by: Fer Molina M.D. The radiology attending physician has personally reviewed this study, and had reviewed and/or edited this written report and agrees with it. Electronically signed by: Devan Desouza MD us Olivier Marion MD IMG XR PROCEDURES Final Re sult documented in this encounter Visit Diagnoses Diagnosis Spinal stenosis in cervical region- Primary Cervical spondylosis with myelopathy Other secondary scoliosis, lumbar region Fusion of spine of cervical region Spinal stenosis in cervical region documented in this encounter Care Teams Flume Ride Operator Relationship Specialty Start Date End Date Rohan Rothman MD [address] [facility] [address] [place] [address] PCP - General 07/20/20 05/12/24 Reanna Polanco RN Registered Nurse 07/07/19 documented as of this encounter
--- OUTSIDE RECORDS SUMMARY | 2024-07-28 01:05 | XMS_ITS | Encounter Summary ---
Author Organization [facility] Healthcare Address [address] [facility] [place] [address] Care Team Providers Care Icu Registered Nurse Name Role Phone Reanna Polanco RN [facility] Rohan Salvador MD Primary Care Provider Reason for Visit * Auth/Cert Specialty Diagnoses / Procedures Referred By Contac t Referred To Contact Diagnoses Spinal stenosis in cervical region Spinal stenosis in cervical region [M48.02] Procedures MD ARTHRD ANT INTERDY CERVCL BELW C2 EA ADDL NTRSPC NA Referral ID Status Reason Start Date Expiration Date Visits Re quested Visits Authorized [id number] 1 1 Encounter Details Date Type Department Care Team (Late st Contact Info) Description 08/09/2022 8:55 PM CALIBRATION LABORATORY TECHNICIAN - 08/10/2022 2:00 AM CALIBRATION LABORATORY TECHNICIAN Surgery [facility] Operating Room [address] [place] [address] Olivier Marion MD [address] [facility] [address] [place] [address] IRRIGATION AND DEBRIDEMENT of neck with Evacution of hematoma Surgery Details Date/Time Status Location OR Service Patient Class Case Class Case Type Trauma Case? 08/09/2022 8:55 PM Posted [facility] OR POD 5 236 Orthopaedics Inpatient Emergent Panel 1 Procedure LRB Anes Op Region Wound Class Comments IRRIGATION AND DEBRIDEMENT of neck with Evacution of hematoma N/A General Neck Class II - Clean Contaminated Surgeon Surgeon Role Service Panel Vivek Erickson MD Resident - Assistin g Orthopaedics 1 Olivier Marion MD Primary Orthopaedics 1 Mateusz Genao MD Resident - Assisting Ortho paedics 1 Case Notes Requested by Shamar. [phone] documented in this encounter Social History Tobacco Use Types Packs/Day Years Used Date Smoking Tobacco: Former Cigarettes 1 5 0 11/27/1978 - 09/28/1983 Smokeless Tobacco: Never Alcohol Use Standard Drinks/Week Comments No 0 (1 standard drink = 0.6 oz pur e alcohol) denies AUDIT-C Answer Date Recorded Q1: How often do you have a drink containing alcohol? Never 08/09/2022 Q2: How many drinks containi ng alcohol do you have on a typical day when you are drinking? Patient does not drink Frequency of Binge Drinking Not on file 07/30 Comments No Sex and Gender Information Value Date Recorded Sex Assigned at Not on file Legal Sex Female 2:03 AM CALIBRATION LABORATORY TECHNICIAN Gender Identity Female 08/26/2020 6:26 AM CALIBRATION LABORATORY TECHNICIAN Sexual Orientation Straight 08/26/2020 6: 26 AM CALIBRATION LABORATORY TECHNICIAN documented as of this encounter Last Filed Vital Signs Vital Sign Reading Time Taken Comments Blood Pressure 107/54 08/10/2022 2:00 AM CALIBRATION LABORATORY TECHNICIAN Pulse 60 08/10/2022 2:00 AM CALIBRATION LABORATORY TECHNICIAN Temperature 36.7 ??C (98.1 ??F) 08/10/2022 2:00 AM CS T Respiratory Rate 24 08/10/2022 2:00 AM CALIBRATION LABORATORY TECHNICIAN Oxygen Saturation 100% 08/10/2022 2:00 AM CALIBRATION LABORATORY TECHNICIAN Inhaled Oxygen Concentration - - Weight 76.9 kg (169 lb 8.5 oz) 08/09/2022 11:41 PM CALIBRATION LABORATORY TECHNICIAN Height 170.2 cm (5' 7 ) 08/09/2022 11:41 PM CALIBRATION LABORATORY TECHNICIAN Body Mass Index 26.55 08/09/2022 11:41 PM CALIBRATION LABORATORY TECHNICIAN documented in this encounter Discharge Summaries * Modesta Ortega NP - 08/12/2022 11:49 AM CST Images from the original note were not included. Spine Inpatient Discharge Summary Admitting Provider: Olivier Marion MD Discharge Provider: Olivier Marion MD Primary Care Physician at Discharge: Rohan Rothman MD [phone] Admission Date: 08/09/2022 Discharge Date: 08/12/2022 Primary Discharge Diagnosis: Spinal stenosis in cervical region Secondary Discharge Diagnosis: Principal Problem: Spinal stenosis in cervical region Active Problems: Generalized osteoarthritis Fibromyalgia Depression Muscle spasm Cervical spinal stenosis Osteoporosis GERD (gastroesophageal reflux disease) S/P cervical discectomy Resolved Problems: No resolved hospital problems. DETAILS OF HOSPITAL STAY Chief Complaint: Spinal stenosis in cervical region History of Present Illness: The patient is a 62 y.o. year old female cared for by Dr. Olivier Marion The risks, benefits, alternatives and complications of an ACDF C3-C6 were discussed with the patient at length prior to surgery. The patient elected to proceed with a surgical intervention given the significant influence on their quality of life. Informed consent was obtained prior to surgery. Operative Procedures Performed: Procedure(s): FUSION CERVICAL ANTERIOR DISCECTOMY WITH INSTRUMENTATION- C3-C6 instrumented anterior cervical discectomy and fusion with structural allograft SPINAL CORD MONITORING Hospital Course 08/09: OR. POC done. Patient decompensated after POC with stridor and neck fullness. Patient underwent emergent evacuation of hematoma at bedside followed by I&D and evacuation of hematoma in OR. 08/10: Extubated. Doing well. Awaiting floor bed. 08/11: Doing well. Awaiting floor bed. Mobilized. She was able to wean away from intravenous narcotics. She was able to mobilize with physical and occupational therapy. The patient had post operative images and those images were reviewed by the surgeon. She was felt to be stable for discharge to home on 08/12. Problems addressed during this hospitalization: 1.Spinal stenosis in cervical region --ACDF C3-C6 08/09/22; Emergent evacuation of neck hematoma 08/09/22 --NOAH drain x 1, removed 08/09, Hemovac x 1 removed 08/12 --C-spine x-rays completed 08/12 --Continue c-collar 2. Acute respiratory failure --Secondary to mass effect from expanding neck hematoma --Intubated 08/09 --Emergent evacuation of neck hematoma --Extubated 08/10, doing well, O2 stable on RA 3. Acute on chronic pain --Post operative pain controlled with sarahi tylenol 1,000mg q6h, gabapentin 300mg BID, sarahi methocarbamol 1,000mg q8h, Flexeril 5mg TID PRN, oxycodone 5mg q4h PRN --Patient takes baclofen, gabapentin, and methocarbamol at home for pain 4. Leukocytosis --S/p periop cefazolin and vanc --Afebrile, no s/s infection --WBC 7.3 (08/12) Consults: none Other Procedures: Evacuation of neck hematoma GI/ Concerns: Tolerating regular diet. Last bowel movement was ORE DIGGER Bundy removed on 08/11, now voiding spontaneously. Therapy recommendations: Home Incision: Skin glue Brace: [place] collar Surgical drains: NOAH x 1, removed 08/09 Hemovac x 1, removed 08/12 Central Line Removed: N/A Blood Transfusions: None Notable medications: Pain medications: sarahi tylenol 1,000mg q6h, gabapentin 300mg BID, sarahi methocarbamol 1,000mg q8h, Flexeril 5mg TID PRN, oxycodone 5mg q4h PRN 2. Steroids: none 3. Antibiotics: none 4. Anticoagulation/antiplatelet agents: none Test Results Pending at Discharge: Physical Exam at Discharge: Ao, r fc Eomi, perrl Cngi, fsw Discharge Condition: Good Vital Signs Pulse: 82 Resp: 16 BP: 123/68 Temp: 36.5 ??C (97.7 ??F) Weight: 76.9 kg (169 lb 8.5 oz) SpO2: 98 % Follow-up: Spine: Scheduled for 08/24/2022 at 11:[address] Marion . Other services: Primary Care Physician Lab tests/imaging necessary on follow-up: no additional scans/tests necessary Future Appointments Date Time Provider Department Center 08/24/2022 11:20 AM Olivier Marion MD [facility] Chem/LFT Lab History Some values may be hidden. Unless noted otherwise, only the newest values recorded on each date aredisplayed. Labs-Chem/LFT Latest Ref Range 08/09/22 08/10/22 08/11/22 08/12/22 Sodium 135 - 145 mmol/L 143 144 133 (A) 135 Creatinine 0.60 - 1.10 mg/dL 0.64 0.61 0.57 (A) 0.57 (A) Bilirubin, total 0.1 - 1.2 mg/dL 0.2 0.4 0.3 AST 10 - 45 Units/L 15 29 28 ALT 7 - 45 Units/L 13 17 21 CrCl- Actual Body Weight (Cockcroft-Gault) 110.6 116.1 124.2 124.2 (A) Abnormal value Comments are available for some flowsheets but are not being displayed. Hematology Lab History Some values may be hidden. Unless noted otherwise, only the newest values recorded on each date aredisplayed. Labs - Hematology Latest Ref Range 08/09/22 08/10/22 08/11/22 08/12/22 WBC 3.8 - 9.9 K/cumm 8.6 12.3 (A) 8.2 7.3 Total Hb, POC 11.9 - 15.5 g/dL 10.0 (A) 11.1 (A) 9.9 (A) 10.5 (A) Hct 35.6 - 45.5 % 30.3 (A) 34.1 (A) 29.4 (A) 32.1 (A) Plt 150 - 400 K/cumm 196 200 166 186 Neutrophil abs 1.7 - 6.5 K/cumm 7.9 (A) 10.7 (A) 5.6 Lymphocytes, abs 0.8 - 3.3 K/cumm 0.3 (A) 0.8 1.9 Some abnormal values recorded on this date have been omitted. (A) Abnormal value Discharge Medication List: Current Medications TAKE these medications acetaminophen ER 650 mg 8 hr tablet Take 1,300 mg by mouth 2 (two) times a day as needed For: pain Commonly known as: TYLENOL alendronate 70 mg tablet Take 70 mg by mouth once a week Sunday For: decreased bone mass following menopause Commonly known as: FOSAMAX ALPHA LIPOIC ACID ORAL Take 550 mg by mouth every morning * ARIPiprazole 15 mg tablet Take 7.5 mg by mouth nightly Total 12.5 ayt HS Commonly known as: ABILIFY * ARIPiprazole 5 mg tablet Take 5 mg by mouth nightly Total 12.5 mg Commonly known as: ABILIFY ascorbic acid 1,000 mg tablet Take 1,000 mg by mouth every morning For: inadequate vitamin C Commonly known as: VITAMIN C baclofen 10 mg tablet Take 2 tablets (20 mg total) by mouth 4 (four) times a day Takes 1-2 tabs QID Commonly known as: LIORESAL CALCIUM CARBONATE-VITAMIN D3 ORAL Take 1 tablet by mouth 2 (two) times a day Calcium Carbonate 1,200 mg with Vitamin D 1,000 international units take 2 daily. cannabidiol (CBD) 100 mg/mL solution Take 5 mg/kg by mouth 2 (two) times a day as needed CBD Commonly known as: EPIDIOLEX cetirizine 10 mg capsule Take 10 mg by mouth nightly For: seasonal runny nose DULoxetine DR 60 mg capsule Take 60 mg by mouth 2 (two) times a day For: anxiousness associated with depression Commonly known as: CYMBALTA estradiol-norethindrone 1-0.5 mg per tablet Take 1 tablet by mouth nightly Commonly known as: ACTIVELLA famotidine 10 mg tablet Take 1 tablet (10 mg total) by mouth 2 (two) times a day Commonly known as: PEPCID HYDROcodone-acetaminophen 7.5-325 mg per tablet Take 1 tablet by mouth 3 (three) times a day As need for pain For: pain Commonly known as: NORCO magnesium oxide 500 mg (301.6 mg elemental) tablet Take 500 mg by mouth 2 (two) times a day Commonly known as: MAG-OX meloxicam 7.5 mg tablet Take 1 tablet (7.5 mg total) by mouth daily Commonly known as: MOBIC * methocarbamoL 500 mg tablet Take 2 tablets (1,000 mg total) by mouth 4 (four) times a day Commonly known as: ROBAXIN metoprolol XL 25 mg extended release tablet Take 25 mg by mouth daily Commonly known as: TOPROL-XL montelukast 10 mg tablet Take 10 mg by mouth nightly For: seasonal runny nose Commonly known as: SINGULAIR mupirocin 2 % ointment Apply a small amount to the inside of each nostril using a clean Q-tip for each nostril twice a day for 5 days prior to surgery. Commonly known as: BACTROBAN omega 0-nat-kcq-fish oil 1,000 mg (120 mg-180 mg) capsule Take 1 capsule by mouth every morning Opzelura 1.5 % cream Apply 1 application topically 2 (two) times a week Mon and Fri. Generic drug: ruxolitinib oxyCODONE 5 mg immediate release tablet Take 1 tablet (5 mg total) by mouth every 3 (three) hours as needed for pain For: pain Commonly known as: ROXICODONE turmeric root extract 500 mg capsule Take 1,350 mg by mouth every morning For: OTC zolpidem 10 mg tablet Take 10 mg by mouth nightly For: difficulty falling asleep Commonly known as: AMBIEN * This list has 3 medication(s) that are the same as other medications prescribed for you. Read the directions carefully, and ask your doctor or other care provider to review them with you. ASK your doctor about these medications * methocarbamoL 500 mg tablet Take 2 tablets (1,000 mg total) by mouth 4 (four) times a day for 14 days Commonly known as: ROBAXIN Ask about: Should I take this medication? * This list has 1 medication(s) that are the same as other medications prescribed for you. Read the directions carefully, and ask your doctor or other care provider to review them with you. Discharge Instructions: SEE AVS Cosigned by Olivier Marion MD at 08/13/2022 9:56 AM CALIBRATION LABORATORY TECHNICIAN BRATION LABORATORY TECHNICIAN BRATION LABORATORY TECHNICIAN documented in this encounter Discharge Instructions * Discharge Instructions* Luli Bond MD - 08/12/2022 3:14 PM CALIBRATION LABORATORY TECHNICIAN Discharge Instructions Anterior Cervical Discectomy and Fusion (ACDF) Your doctor removed one or more discs from your neck, to remove pressure from the spinal cord or nerve roots, and then fused your spine using a small titanium plate and pieces of bone (either from the bone bank or from your own pelvis). The following are instructions and guidelines meant to help in your recovery once you have been discharged from the hospital. When to call our office Although your recovery will likely be uneventful, you may have some residual aches and pains in your neck and/or arms. Specifically, some patients complain of a tightness or deep ache in the back of the neck or between the shoulder blades. This is usually due to sore and tight muscles. This is besttreated with muscle relaxants and pain medication. Resting or applying a warm compress may help. This is normal and should improve in the next few weeks. You may notice some pain with swallowing in the first month after surgery - this is normal. During the operation, a breathing tube is placed down your throat by the anesthesiologist. In addition, your throat is gently pulled to one side to perform the surgery. For both of these reasons, your throatwill be sore. Some patients also notice the sensation of having a ???lump?? in their throat. You may have difficulty swallowing certain foods like rice or corn - this can be normal. However, if you are having difficulty swallowing liquids, call your doctor immediately. Call our office immediately (phone numbers listed at the end of these instructions) if you experience the following symptoms: Fevers greater than 101??F Drainage from your incision, or surrounding redness or swelling Pain that is progressively getting worse, and is not relieved by your pain medications, rest, or applying warms packs New numbness or weakness Difficulty controlling your bladder Loss of control of your bowels Call 911 immediately if you experience the following symptoms: Sudden weakness or difficulty speaking and/or swallowing Sudden onset persistent headache, with nausea and/or vomiting Sudden change or loss of vision New difficulty with breathing Chest pain Wound care Your wound has been closed with topical skin glue. The glue will fall off over time.. Keep your incision clean. Do NOT use lotions, ointments, or creams on the incision. Do not scrub, rub, or pick at the incision. If you have a gauze dressing covering your wound, remove it within 1-2 days and leave the wound open to air. You may get your incision wet now. If your wound gets wet, lightly dab it dry. Do NOT submerge yourself in any water that will cover the incision (bathtub, hot tub, swimming pool), unless specifically cleared by your doctor. Activity Until released by your doctor, you should not return to work. You should rest at home and let your body heal. Taking short walks is encouraged, but avoid strenuous exercise. Do not jog, run, lift weights, bicycle, or participate in any other exercises unless specifically allowed by your doctor. Most importantly, avoid lifting objects heavier than a telephone book or a carton of milk as this places strain on your neck. Avoid household activities that involve lifting, twisting, pushing, and pulling such as laundry, vacuuming, grocery shopping, and childcare. Try to arrange for help from friendsand family for these activities while your neck heals. Some patients are given a hard neck brace (cervical collar) to wear. This keeps your spine still, and allows it to heal properly. You can remove the collar when lying down, but you should wear it at all other times. You do not need to wear the collar while sleeping. Some operations do not require the use of a hard collar - your doctor will prescribe one if you need it. You should not drive until cleared by your doctor. This time can vary but is typically around 3 weeks. Do not take baths or sit in a hot tub or pool until approved by your doctor at your follow-up appointment. Do not smoke tobacco Smoking has been proven to interfere with the normal healing of the bones in your neck. Smoking will dramatically reduce the success rate of your surgery. Your primary care doctor can prescribe a patch to help you stop smoking if you would like. Diet You can return to your usual diet, unless instructed otherwise by your doctor. Medications You should resume taking all of your normal medications, unless instructed otherwise by your doctor. However, you should not take anti-inflammatory medications (such as: Motrin, Advil, Ibuprofen, Celebrex, Vioxx, Naprosyn) for three months after surgery, unless specifically approved by your doctor.These medications can prevent your bones from healing properly after surgery. You should also not take any blood thinners or antiplatelet agents (such as Aspirin, Plavix, or Coumadin), unless specifically approved by your doctor. If you have questions about your normal medications (such as those prescribed for high blood pressure), call your family doctor or assistant front desk manager. You will be given a prescription for pain medications, a muscle relaxer and possibly a laxative, aspain medications can cause constipation. Take the pain medicines as instructed. If your pain is notreasonably controlled by the medications, contact your doctor???s office. Follow up - Orthopedic Surgery: You should follow up August 24, 2022 - Your primary care physician to have repeat labs. BRATION LABORATORY TECHNICIAN BRATION LABORATORY TECHNICIAN BRATION LABORATORY TECHNICIAN BRATION LABORATORY TECHNICIAN documented in this encounter Medications at Time [...] Take 1 tablet by mouth nightly 11/14/2017 metoprolol XL (TOPROL-XL) 25 mg extended release tablet Take 1 tablet (25 mg total) by mouth daily montelukast (SINGULAIR) 10 mg tabletIndications :Seasonal Allergic Rhinitis Take 1 tablet (10 mg total) by mouth nightly 04/13/2017 zolpidem (AMBIEN) 10 mg tabletIndications :Sleep-Onset Insomnia Take 1 tablet (10 mg total) by mouth nightly sodium phosphate - potassium phosphate (K-PHOS NEUTRAL) 250 mg tablet Take 2 tablets (500 mg total) by mouth 4 (four) times a day (with meals and nightly) for 2 doses 4 tablet 08/12/2022 08/13/19 23 acetaminophen 500 mg capsuleIndication s:preOP Take 2 capsules (1,000 mg total) by mouth every 6 (six) hours 30 tablet 08/12/2022 02/08/20 23 alendronate (FOSAMAX) 70 mg tabletIndications :Post-Menopausal Osteoporosis Take 1 tablet (70 mg total) by mouth once a week Sunday04/02/2020 02/26/20 24 ARIPiprazole (ABILIFY) 15 mg tablet Take 7.5 mg by mouth nightly Total 12.5 ayt HS 11/01/19 23 ARIPiprazole (ABILIFY) 5 mg tablet Take 5 mg by mouth nightly Total 12.5 mg 04/20/2022 11/01/19 23 baclofen (LIORESAL) 10 mg tablet Take 2 tablets (20 mg total) by mouth 4 (four) times a day Takes 1-2 tabs QID 240 tablet 11 04/07/2022 12/01/19 23 cetirizine 10 mg capsuleIndication s:Seasonal Allergic Rhinitis Take 10 mg by mouth nightly 11/01/19 23 cyclobenzaprine (FLEXERIL) 5 mg tablet Take 1 tablet (5 mg total) by mouth 3 (three) times a day as needed for muscle spasms 90 tablet 08/12/2022 09/05/19 23 famotidine (PEPCID) 10 mg tablet Take 1 tablet (10 mg total) by mouth 2 (two) times a day 60 tablet 11 07/18/2022 09/05/19 23 gabapentin (NEURONTIN) 300 mg capsule Take 1 capsule (300 mg total) by mouth 2 (two) times a day 90 capsule 11 08/12/2022 11/01/19 23 magnesium oxide (MAG-OX) 500 mg (301.6 mg elemental) tablet Take 500 mg by mouth 2 (two) times a day 09/05/19 23 methocarbamoL (ROBAXIN) 500 mg tablet Take 2 tablets (1,000 mg total) by mouth 4 (four) times a day as needed for muscle spasms 240 tablet 2 04/07/2022 04/11/20 23 methocarbamoL 1,000 mg tablet Take 1,000 mg by mouth every 8 (eight) hours 90 tablet 08/12/2022 09/20/19 23 omega 2-dhh-ubk-fish oil 1,000 mg (120 mg-180 mg) capsule Take 1 capsule by mouth every morning 09/05/19 23 oxyCODONE (ROXICODONE) 5 mg immediate release tabletIndications :Pain Take 1 tablet (5 mg total) by mouth every 3 (three) hours as needed for pain 56 tablet 08/11/2022 08/24/19 23 polyethylene glycol (MIRALAX) 17 gram packetIndications :constipation Take 1 packet (17 g total) by mouth daily 08/13/2022 09/05/19 23 ramelteon (ROZEREM) 8 mg tabletIndications :Sleep-Onset Insomnia Take 1 tablet (8 mg total) by mouth nightly as needed for sleep 60 tablet 08/12/2022 09/05/19 23 senna-docusate (PERICOLACE) 8.6-50 mg Take 1 tablet by mouth nightly 60 tablet 08/12/2022 02/08/20 23 turmeric root extract 500 mg capsuleIndication s:OTC Take 1,350 mg by mouth every morning 09/05/19 23 documented as of this encounter Ordered Prescriptions Prescription Sig Dispense Quantity Refills Last Filled Start Date End Date sodium phosphate - potassium phosphate (K-PHOS NEUTRAL) 250 mg tablet Take 2 tablets (500 mg total) by mouth 4 (four) times a day (with meals and nightly) for 2 doses 4 tablet 08/12/2022 3 senna-docusate (PERICOLACE) 8.6-50 mg Take 1 tablet by mouth nightly 60 tablet 08/12/2022 3 ramelteon (ROZEREM) 8 mg tabletIndications: Sleep-Onset Insomnia Take 1 tablet (8 mg total) by mouth nightly as needed for sleep 60 tablet 08/12/2022 3 polyethylene glycol (MIRALAX) 17 gram packetIndications: constipation Take 1 packet (17 g total) by mouth daily 08/13/2022 3 gabapentin (NEURONTIN) 300 mg capsule Take 1 capsule (300 mg total) by mouth 2 (two) times a day 90 capsule 11 08/12/2022 3 cyclobenzaprine (FLEXERIL) 5 mg tablet Take 1 tablet (5 mg total) by mouth 3 (three) times a day as needed for muscle spasms 90 tablet 08/12/2022 3 methocarbamoL 1,000 mg tablet Take 1,000 mg by mouth every 8 (eight) hours 90 tablet 08/12/2022 3 acetaminophen 500 mg capsuleIndications :preOP Take 2 capsules (1,000 mg total) by mouth every 6 (six) hours 30 tablet 08/12/2022 3 oxyCODONE (ROXICODONE) 5 mg immediate release tabletIndications: Pain Take 1 tablet (5 mg total) by mouth every 3 (three) hours as needed for pain 56 tablet 08/11/2022 3 documented in this encounter Discharge Disposition Disposition Code Departure Means Destination Discharge to home or self care Other documented in this encounter Progress Notes * Luli Bond MD - 08/12/2022 7:27 AM CST Surgical ICU Daily Progress Team: Red PM Subjective Patient is a 62 y.o. female admitted on 08/09/2022 9:47 AM with chief complaint of C3-6 ACDF on airway compromise 2/2 neck hematoma requiring re- intubation s/p hematoma evacuation. Interval History: - No acute events. Doing well. Eating. Pain OK w/ PO meds. Objective Physical Exam: Physical Exam Vitals reviewed. Constitutional: General: She is not in acute distress. Appearance: Normal appearance. HENT: Head: Normocephalic and atraumatic. Mouth/Throat: Mouth: Mucous membranes are moist. Eyes: Extraocular Movements: Extraocular movements intact. Conjunctiva/sclera: Conjunctivae normal. Pupils: Pupils are equal, round, and reactive to light. Neck: Comments: No evidence of hematoma Incision covered by dressing Drain with minimal output Cardiovascular: Rate and Rhythm: Normal rate and regular rhythm. Pulses: Normal pulses. Heart sounds: Normal heart sounds. Pulmonary: Effort: Pulmonary effort is normal. No respiratory distress. Breath sounds: Normal breath sounds. No wheezing. Abdominal: General: Abdomen is flat. There is no distension. Palpations: Abdomen is soft. Tenderness: There is no abdominal tenderness. Musculoskeletal: General: Normal range of motion. Cervical back: Neck supple. No rigidity or tenderness. Right lower leg: No edema. Left lower leg: No edema. Skin: General: Skin is warm and dry. Capillary Refill: Capillary refill takes less than 2 seconds. Neurological: General: No focal deficit present. Mental Status: She is alert and oriented to person, place, and time. Sensory: No sensory deficit. Motor: No weakness. Medications Scheduled Meds:acetaminophen, 1,000 mg, oral, Q6H SARAHI ARIPiprazole, 12.5 mg, oral, Nightly baclofen, 10 mg, oral, QID DULoxetine DR, 60 mg, oral, BID estradiol-norethindrone, 1 tablet, oral, Nightly gabapentin, 300 mg, oral, BID methocarbamoL, 1,000 mg, oral, Q8H metoprolol XL, 25 mg, oral, Daily montelukast, 10 mg, oral, Nightly polyethylene glycol, 17 g, oral, Daily senna-docusate, 1 tablet, oral, Nightly sodium chloride 0.9%, 0.5-20 mL, intra-catheter, Q8H SARAHI sodium phosphate - potassium phosphate, 500 mg, oral, QID (with meals & nightly) Continuous Infusions: PRN Meds:. cyclobenzaprine oxyCODONE ramelteon sodium chloride 0.9% Vital signs for last 24 hours: Temp: [36.5 ??C (97.7 ??F)-37.3 ??C (99.1 ??F)] 36.5 ??C (97.7 ??F) Pulse: [64-91] 82 BP: (116-150)/(68-75) 123/68 Resp: [11-17] 16 SpO2: [95 %-99 %] 98 % Hemodynamics: MAP (mmHg): [80-94] 82 Pulmonary Support: O2 Therapy: None (Room air) O2 Del Method: Nasal cannula FiO2 (%): 40 % O2 Flow Rate (L/min): 2 L/min Intake/Output: Intake/Output Summary (Last 24 hours) at 08/12/2022 1058 Last data filed at 08/12/2022 1010 Gross per 24 hour Intake 1280 ml Output 3141 ml Net -1861 ml Lab/Radiology/Diagnostic Review: Recent Results (from the past 48 hour(s)) POCT glucose Collection Time: 08/10/22 11:28 AM Result Value Ref Range Glucose, POC 145 70 - 199 mg/dL POCT glucose Collection Time: 08/10/22 3:22 PM Result Value Ref Range Glucose, POC 143 70 - 199 mg/dL POCT glucose Collection Time: 08/10/22 7:15 PM Result Value Ref Range Glucose, POC 173 70 - 199 mg/dL CBC with auto differential Collection Time: 08/10/22 8:27 PM Result Value Ref Range WBC 12.3 (H) 3.8 - 9.9 K/cumm Hgb 11.1 (L) 11.9 - 15.5 g/dL Hct 34.1 (L) 35.6 - 45.5 % Plt 200 150 - 400 K/cumm MPV 11.9 9.1 - 12.3 fL RBC 3.48 (L) 3.90 - 5.20 M/cumm MCV 98.0 (H) 81.3 - 96.4 fL MCH 31.9 27.1 - 33.3 pg MCHC 32.6 32.3 - 35.7 g/dL RDW CV 12.6 11.1 - 14.9 % RDW SD 45.1 35.7 - 48.1 fL NRBC abs 0.00 0.00 - 0.01 K/cumm Comprehensive metabolic panel Collection Time: 08/10/22 8:27 PM Result Value Ref Range Sodium 144 135 - 145 mmol/L Potassium, pl 4.0 3.3 - 4.9 mmol/L Chloride 105 97 - 110 mmol/L CO2 28 22 - 32 mmol/L Anion gap 11 2 - 15 mmol/L BUN 8 8 - 25 mg/dL Creatinine 0.61 0.60 - 1.10 mg/dL Glucose 141 70 - 199 mg/dL Calcium 9.0 8.5 - 10.3 mg/dL Bilirubin, total 0.4 0.1 - 1.2 mg/dL Protein, pl 6.9 6.5 - 8.5 g/dL Albumin 4.2 3.5 - 5.0 g/dL Alk phos 34 (L) 40 - 130 Units/L ALT 17 7 - 45 Units/L AST 29 10 - 45 Units/L Magnesium Collection Time: 08/10/22 8:27 PM Result Value Ref Range Magnesium 2.4 1.4 - 2.5 mg/dL Phosphorus Collection Time: 08/10/22 8:27 PM Result Value Ref Range Phosphorus, pl 2.8 2.3 - 4.5 mg/dL Differential, auto Collection Time: 08/10/22 8:27 PM Result Value Ref Range Neutrophil abs 10.7 (H) 1.7 - 6.5 K/cumm Imm gran abs 0.1 0.0 - 0.1 K/cumm Lymphocyte abs 0.8 0.8 - 3.3 K/cumm Monocyte abs 0.8 0.2 - 0.8 K/cumm Eosinophil abs 0.0 0.0 - 0.5 K/cumm Basophil abs 0.0 0.0 - 0.1 K/cumm Neutrophil pct 86.9 % Imm gran pct 0.4 % Lymphocyte pct 6.5 % Monocyte pct 6.2 % Eosinophil pct 0.0 % Basophil pct 0.0 % eGFR Collection Time: 08/10/22 8:27 PM Result Value Ref Range eGFR >90 90 - 130 mL/min/1.73 m2 POCT glucose Collection Time: 08/10/22 11:03 PM Result Value Ref Range Glucose, POC 126 70 - 199 mg/dL CBC with auto differential Collection Time: 08/11/22 8:49 PM Result Value Ref Range WBC 8.2 3.8 - 9.9 K/cumm Hgb 9.9 (L) 11.9 - 15.5 g/dL Hct 29.4 (L) 35.6 - 45.5 % Plt 166 150 - 400 K/cumm MPV 11.6 9.1 - 12.3 fL RBC 3.04 (L) 3.90 - 5.20 M/cumm MCV 96.7 (H) 81.3 - 96.4 fL MCH 32.6 27.1 - 33.3 pg MCHC 33.7 32.3 - 35.7 g/dL RDW CV 12.5 11.1 - 14.9 % RDW SD 43.9 35.7 - 48.1 fL NRBC abs 0.00 0.00 - 0.01 K/cumm Comprehensive metabolic panel Collection Time: 08/11/22 8:49 PM Result Value Ref Range Sodium 133 (L) 135 - 145 mmol/L Potassium, pl 3.1 (L) 3.3 - 4.9 mmol/L Chloride 96 (L) 97 - 110 mmol/L CO2 30 22 - 32 mmol/L Anion gap 7 2 - 15 mmol/L BUN 12 8 - 25 mg/dL Creatinine 0.57 (L) 0.60 - 1.10 mg/dL Glucose 126 70 - 199 mg/dL Calcium 8.5 8.5 - 10.3 mg/dL Bilirubin, total 0.3 0.1 - 1.2 mg/dL Protein, pl 6.5 6.5 - 8.5 g/dL Albumin 4.0 3.5 - 5.0 g/dL Alk phos 43 40 - 130 Units/L ALT 21 7 - 45 Units/L AST 28 10 - 45 Units/L Magnesium Collection Time: 08/11/22 8:49 PM Result Value Ref Range Magnesium 2.1 1.4 - 2.5 mg/dL Phosphorus Collection Time: 08/11/22 8:49 PM Result Value Ref Range Phosphorus, pl 1.6 (L) 2.3 - 4.5 mg/dL Differential, auto Collection Time: 08/11/22 8:49 PM Result Value Ref Range Neutrophil abs 5.6 1.7 - 6.5 K/cumm Imm gran abs 0.1 0.0 - 0.1 K/cumm Lymphocyte abs 1.9 0.8 - 3.3 K/cumm Monocyte abs 0.6 0.2 - 0.8 K/cumm Eosinophil abs 0.0 0.0 - 0.5 K/cumm Basophil abs 0.0 0.0 - 0.1 K/cumm Neutrophil pct 68.4 % Imm gran pct 0.6 % Lymphocyte pct 23.3 % Monocyte pct 7.0 % Eosinophil pct 0.5 % Basophil pct 0.2 % eGFR Collection Time: 08/11/22 8:49 PM Result Value Ref Range eGFR >90 90 - 130 mL/min/1.73 m2 CBC without differential Collection Time: 08/12/22 8:43 AM Result Value Ref Range WBC 7.3 3.8 - 9.9 K/cumm Hgb 10.5 (L) 11.9 - 15.5 g/dL Hct 32.1 (L) 35.6 - 45.5 % Plt 186 150 - 400 K/cumm MPV 11.6 9.1 - 12.3 fL RBC 3.38 (L) 3.90 - 5.20 M/cumm MCV 95.0 81.3 - 96.4 fL MCH 31.1 27.1 - 33.3 pg MCHC 32.7 32.3 - 35.7 g/dL RDW CV 12.3 11.1 - 14.9 % RDW SD 43.0 35.7 - 48.1 fL NRBC abs 0.00 0.00 - 0.01 K/cumm Basic metabolic panel Collection Time: 08/12/22 8:43 AM Result Value Ref Range Sodium 135 135 - 145 mmol/L Potassium, pl 3.9 3.3 - 4.9 mmol/L Chloride 96 (L) 97 - 110 mmol/L CO2 32 22 - 32 mmol/L Anion gap 7 2 - 15 mmol/L BUN 8 8 - 25 mg/dL Creatinine 0.57 (L) 0.60 - 1.10 mg/dL Glucose 103 70 - 199 mg/dL Calcium 8.9 8.5 - 10.3 mg/dL eGFR Collection Time: 08/12/22 8:43 AM Result Value Ref Range eGFR >90 90 - 130 mL/min/1.73 m2 Imaging Review: No new imaging Assessment/Plan Principal Problem: Spinal stenosis in cervical region Active Problems: Generalized osteoarthritis Fibromyalgia Depression Muscle spasm Cervical spinal stenosis Osteoporosis GERD (gastroesophageal reflux disease) S/P cervical discectomy NEURO: #Acute Pain, improving - APAP 1000mg q6h - Home baclofen at 10mg QID - Home gabapentin 300mg BID - Home methocarbamol 1000mg q8h - Cyclobenzaprine 5mg TID PRN - Oxycodone 5mg q4h PRN #C3-6 ACDF c/b neck hematoma with airway compromise requiring re-intubation s/p evacuation - Q4h NC - Per ortho, continue c-collar - No HOB restriction - C-spine X-rays when able - Appropriate for TTF when bed available; if no bed and C-spine X-rays done, can D/C from ICU #CECE/MDD - Home aripiprazole 12.5 nightly - Home duloxetine 60mg BID CV: #Tachycardia - Follows with human resource analyst; has had full work-up that was unremarkable - Home metoprolol 25mg daily PULM: - BC GI: Diet: Regular Bowel regimen: Miralax qd, senna-docusate qd PUD PPx: N/A ENDO: No active issues RENAL: Fluid balance goal: Auto Maintenance IV fluids: None Electrolyte repletion orders: Per protocol - Repeat BMP; c/f lab error - Remove bundy HEME: #ABLA #Postop neck hematoma s/p evacuation Lab Results Component Value Date HGB 10.5 (L) 08/12/2022 - Neck supple without evidence of hematoma re-accumulation - Drain with minimal output - No s/s bleeding - Hgb 11.5 -> 9.9; repeat CBC due to c/f lab error. - CBC daily ID: #Leukocytosis - WBC 12.3 (8.6) - S/p periop cefazolin and vancomycin - Afebrile; no s/s infection - CBC daily MSK: #C3-6 ACDF c/b neck hematoma with airway compromise requiring re-intubation s/p evacuation - As above #Fibromyalgia - Pain control as above Intensive Care Unit Standards of Care: Restraints: None DVT prophylaxis: SCDs Vascular access: PIV x2 Goals of care: Full code Disposition: TTF Luli Bond MD 10:58 AM 08/12/22 Cosigned by Patrick Mills MD PhD at 08/12/2022 5:30 PM [employer] TECHNICIAN [employer] TECHNICIAN [employer]ATION [employer]ORATORY TECHNICIAN [employer]ATION [employer]ORATORY TECHNICIAN * Vivek Erickson MD - 08/12/2022 5:28 AM CST Orthopaedic Spine Daily Progress Note 08/12/2022 Hospital Course 08/09: OR. POC done. Patient decompensated after POC with stridor and neck fullness. Patient underwent emergent evacuation of hematoma at bedside followed by I&D and evacuation of hematoma in OR. 08/10: Extubated. Doing well. Awaiting floor bed. 08/11: Doing well. Awaiting floor bed. Mobilized. Subjective No complaints and pain well controlled. Extubated. Hb 9.9 K 3.1, repleted HV , voided. Hold DVT ppx, c-spine xrays, pull drain if patient d/c otherwise keep until tomorrow, OOB/PT/OT as able. Objective Physical Exam: General: Well-developed well-nourished in no acute distress. Follows commands Intubated/sedated. Distal pulses are palpable and rhythm is regular Inspection: Dressing intact, neck soft, non-distended Drain: Holding suction Motor: Muscle Strength Left Right Deltoid 5/5 5/5 Biceps 5/5 5/5 Triceps 5/5 5/5 Wrist extension 5/5 5/5 Wrist flexion 5/5 5/5 Parts Assembler 5/5 5/5 Interosseous of hand 5/5 5/5 Iliopsoas 5/5 5/5 Quadriceps 5/5 5/5 Hamstrings 5/5 5/5 Tibialis anterior 5/5 5/5 Extensor hallicus longus 5/5 5/5 Gastrocsoleus complex 5/5 5/5 Sensation Left upper extremity: sensation intact to light touch in C5 to T1 dermatomes. Right upper extremity: sensation intact to light touch in C5 to T1 dermatomes. Left lower extremity: sensation intact to light touch in L2 to S1 dermatomes. Right lower extremity: sensation intact to light touch in L2 to S1 dermatomes. *responds to touch, limited by intubation Long-tract signs: Positive Mathew's bilaterally No clonus Vascular: Bilateral Upper Extremity: 2+ radial pulse, fingers WWP Bilateral Lower Extremity 2+ pedal pulses, toes WWP with BCR Vitals: 24hr min/max vitals: Temp Min: 36.6 ??C (97.9 ??F) Max: 37.4 ??C (99.3 ??F) Pulse Min: 64 Max: 91 Resp Min: 11 Max: 22 SpO2 Min: 95 % Max: 99 % MAP (mmHg) Min: 80 Max: 88 Intake and output: I/O last 2 completed shifts: In: 1175 [P.O.:1140; I.V.:25; IV Piggyback:10] Out: 2650 [Urine:2555; Drains:95] Medications: Scheduled Scheduled Medications Medication Dose Route Frequency acetaminophen (TYLENOL) tablet 1,000 mg 1,000 mg oral Q6H SARAHI ARIPiprazole (ABILIFY) tablet 12.5 mg 12.5 mg oral Nightly baclofen (LIORESAL) tablet 10 mg 10 [address] QID [address] (CYMBALTA) extended release capsule 60 mg 60 mg oral BID estradiol-norethindrone (ACTIVELLA) 0.5-0.1 mg per tablet 1 tablet 1 tablet oral Nightly gabapentin (NEURONTIN) capsule 300 mg 300 mg oral BID methocarbamoL (ROBAXIN) tablet 1,000 mg 1,000 mg oral Q8H metoprolol XL (TOPROL-XL) extended release tablet 25 mg 25 mg oral Daily montelukast (SINGULAIR) tablet 10 mg 10 mg oral Nightly polyethylene glycol (MIRALAX) packet 17 g 17 g oral Daily potassium chloride ER (KLOR-CON) extended release tablet 40 mEq 40 mEq oral Q4H senna-docusate (PERICOLACE) 8.6-50 mg per tablet 1 tablet 1 tablet oral Nightly sodium chloride 0.9% flush 0.5-20 mL 0.5-20 mL intra-catheter Q8H SARAHI sodium phosphate - potassium phosphate (K-PHOS NEUTRAL) tablet 500 mg 500 mg oral QID (with meals & nightly) As needed PRN Medications Medication Dose Route Frequency Last Admin albuterol 2.5 mg/0.5 mL nebulizer solution 2.5 mg 2.5 mg nebulization Once PRN cyclobenzaprine (FLEXERIL) tablet 5 mg 5 mg oral TID PRN 5 mg at 08/10/22 181 HYDROmorphone (DILAUDID) injection 0.2 mg 0.2 mg intravenous Q4H PRN oxyCODONE (ROXICODONE) tablet 5 mg 5 mg oral Q4H PRN 5 mg at 08/12/22 0124 ramelteon (ROZEREM) tablet 8 mg 8 mg oral Nightly PRN 8 mg at 08/11/222034 sodium chloride 0.9% flush 0.5-20 mL 0.5-20 mL intra-catheter PRN Labs: Lab Results Component Value Date SODIUM 133 (L) 08/11/2022 SODIUM 144 08/10/2022 SODIUM 143 08/09/2022 Lab Results Component Value Date GLUCOSE 126 08/11/2022 CALCIUM 8.5 08/11/2022 POTASSIUM 3.1 (L) 08/11/2022 CO2 30 08/11/2022 CHLORIDE 96 (L) 08/11/2022 BUNSER 12 08/11/2022 CREATININE 0.57 (L) 08/11/2022 Lab Results Component Value Date WBC 8.2 08/11/2022 WBC 12.3 (H) 08/10/2022 WBC 8.6 08/09/2022 HGB 9.9 (L) 08/11/2022 HGB 11.1 (L) 08/10/2022 HGB 10.0 (L) 08/09/2022 HCT 29.4 (L) 08/11/2022 HCT 34.1 (L) 08/10/2022 HCT 30.3 (L) 08/09/2022 LABPLAT 166 08/11/2022 LABPLAT 200 08/10/2022 LABPLAT 196 08/09/2022 No results found for: INR, PT, APTT No components found for: TROPONIN PT/OT assessment: PT Recommendation/Plan: Home with 24 hour supervision Assessment/Plan Hospital Day: 4 Annette Santiago is a 62 y.o. year old female who is s/p C3-6 ACDF with emergent OR takeback for I&D and evacuation postoperative hematoma (s/p bedside hematoma evacuation) on 08/09/22. Plan Drains: Maintain, strip frequently (at least q1h) Abx: Vanc/ancef X 24 hours DVT prophylaxis: SCDs and ambulatory Please call with questions. See below for overnight issues. If questions arise on patients at [facility] and the appropriate resident/fellow can't be reached or you are calling overnight, please contact [phone] ([facility] 7:30 PM - 6:30 AM - Floor Resident) or [phone] (24 hours/day - Consult Resident) If you are calling about a patient at [facility] please page/call fellow or resident long term care administrator. Note created by Vivek Erickson MD on 08/12/2022 at 5:29 AM. Cosigned by Olivier Marion MD at 08/14/2022 8:16 AM CAL[employer]RATION LABORATORY TECHNICIAN [employer]ATION [employer]ORATORY TECHNICIAN [employer]ATION [employer]ORATORY TECHNICIAN * Gabriella Kaplan MD - 08/11/2022 6:24 PM CST Surgical ICU Daily Progress Team: Red PM Subjective Patient is a 62 y.o. female admitted on 08/09/2022 9:47 AM with chief complaint of C3-6 ACDF on / airway compromise 2/2 neck hematoma requiring re- intubation s/p hematoma evacuation. Interval History: -NAEO -TTF Objective Physical Exam: Physical Exam Vitals reviewed. Constitutional: General: She is not in acute distress. Appearance: Normal appearance. HENT: Head: Normocephalic and atraumatic. Mouth/Throat: Mouth: Mucous membranes are moist. Eyes: Extraocular Movements: Extraocular movements intact. Conjunctiva/sclera: Conjunctivae normal. Pupils: Pupils are equal, round, and reactive to light. Neck: Comments: No evidence of hematoma Incision covered by dressing Drain with appropriate serosanguinous output Cardiovascular: Rate and Rhythm: Normal rate and regular rhythm. Pulses: Normal pulses. Heart sounds: Normal heart sounds. Pulmonary: Effort: Pulmonary effort is normal. No respiratory distress. Breath sounds: Normal breath sounds. No wheezing. Abdominal: General: Abdomen is flat. There is no distension. Palpations: Abdomen is soft. Tenderness: There is no abdominal tenderness. Musculoskeletal: General: Normal range of motion. Cervical back: Neck supple. No rigidity or tenderness. Right lower leg: No edema. Left lower leg: No edema. Skin: General: Skin is warm and dry. Capillary Refill: Capillary refill takes less than 2 seconds. Neurological: General: No focal deficit present. Mental Status: She is alert and oriented to person, place, and time. Sensory: No sensory deficit. Motor: No weakness. Medications Scheduled Meds:acetaminophen, 1,000 mg, oral, Q6H SARAHI ARIPiprazole, 12.5 mg, oral, Nightly baclofen, 10 mg, oral, QID DULoxetine DR, 60 mg, oral, BID estradiol-norethindrone, 1 tablet, oral, Nightly gabapentin, 300 mg, oral, BID methocarbamoL, 1,000 mg, oral, Q8H metoprolol XL, 25 mg, oral, Daily montelukast, 10 mg, oral, Nightly polyethylene glycol, 17 g, oral, Daily senna-docusate, 1 tablet, oral, Nightly sodium chloride 0.9%, 0.5-20 mL, intra-catheter, Q8H [facility] Continuous Infusions: PRN Meds:. albuterol cyclobenzaprine HYDROmorphone oxyCODONE ramelteon sodium chloride 0.9% Vital signs for last 24 hours: Temp: [36.9 ??C (98.4 ??F)-37.4 ??C (99.3 ??F)] 37.2 ??C (99 ??F) Pulse: [61-87] 71 BP: (115-163)/(65-83) 127/75 Resp: [10-22] 14 SpO2: [93 %-98 %] 98 % Hemodynamics: MAP (mmHg): [80-101] 88 Pulmonary Support: O2 Therapy: None (Room air) O2 Del Method: Nasal cannula FiO2 (%): 40 % O2 Flow Rate (L/min): 2 L/min Intake/Output: Intake/Output Summary (Last 24 hours) at 08/11/2022 1824 Last data filed at 08/11/2022 1740 Gross per 24 hour Intake 1175 ml Output 2650 ml Net -1475 ml Lab/Radiology/Diagnostic Review: Recent Results (from the past 48 hour(s)) Type and screen Collection Time: 08/09/22 8:31 PM Result Value Ref Range Anabelle, indirect Negative ABO Rh B Positive POC Blood Gas and Chemistries, Arterial - Collection Time: 08/09/22 9:33 PM Result Value Ref Range pH, Art POC 7.21 (L) 7.35 - 7.45 pCO2, Art POC 69 (H) 35 - 45 mmHg pO2, Art POC 44 (L) 83 - 108 mmHg Na, POC 139 135 - 145 mmol/L K POC 3.8 3.3 - 4.9 mmol/L Cl, POC 107 97 - 110 mmol/L Ionized Ca, POC 5.07 4.50 - 5.10 mg/dL Glucose, POC 215 (H) 70 - 199 mg/dL Lactate, POC 2.5 (H) 0.7 - 2.2 mmol/L SO2 (godwin) arterial 71 (L) 90 - 95 % Base excess, POC -1.5 mmol/L HCO3, Art POC 23 20 - 30 mmol/L Hct, POC 35.0 (L) 36.3 - 45.3 % O2 Sat, Art POC (Calc) 68 % Total Hb, POC 11.5 (L) 11.9 - 15.5 g/dL POCT glucose Collection Time: 08/09/22 10:51 PM Result Value Ref Range Glucose, POC 173 70 - 199 mg/dL Blood gas, arterial Collection Time: 08/09/22 11:21 PM Result Value Ref Range pH, Art 7.34 (L) 7.35 - 7.45 PCO2, Arterial 44 35 - 45 mmHg PO2, Arterial 181 (H) 83 - 108 mmHg HCO3 Art (Calculated) 24 20 - 30 mmol/L BE, art -2 mmol/L O2 Sat Art (Measured) 100 (H) 90 - 95 % Comprehensive metabolic panel Collection Time: 08/09/22 11:21 PM Result Value Ref Range Sodium 143 135 - 145 mmol/L Potassium, pl 3.8 3.3 - 4.9 mmol/L Chloride 108 97 - 110 mmol/L CO2 25 22 - 32 mmol/L Anion gap 10 2 - 15 mmol/L BUN 9 8 - 25 mg/dL Creatinine 0.64 0.60 - 1.10 mg/dL Glucose 161 70 - 199 mg/dL Calcium 8.4 (L) 8.5 - 10.3 mg/dL Bilirubin, total 0.2 0.1 - 1.2 mg/dL Protein, pl 6.0 (L) 6.5 - 8.5 g/dL Albumin 4.0 3.5 - 5.0 g/dL Alk phos 29 (L) 40 - 130 Units/L ALT 13 7 - 45 Units/L AST 15 10 - 45 Units/L Magnesium Collection Time: 08/09/22 11:21 PM Result Value Ref Range Magnesium 1.9 1.4 - 2.5 mg/dL Phosphorus Collection Time: 08/09/22 11:21 PM Result Value Ref Range Phosphorus, pl 3.1 2.3 - 4.5 mg/dL CBC with auto differential Collection Time: 08/09/22 11:21 PM Result Value Ref Range WBC 8.6 3.8 - 9.9 K/cumm Hgb 10.0 (L) 11.9 - 15.5 g/dL Hct 30.3 (L) 35.6 - 45.5 % Plt 196 150 - 400 K/cumm MPV 11.0 9.1 - 12.3 fL RBC 3.19 (L) 3.90 - 5.20 M/cumm MCV 95.0 81.3 - 96.4 fL MCH 31.3 27.1 - 33.3 pg MCHC 33.0 32.3 - 35.7 g/dL RDW CV 12.1 11.1 - 14.9 % RDW SD 42.6 35.7 - 48.1 fL NRBC abs 0.00 0.00 - 0.01 K/cumm Differential, auto Collection Time: 08/09/22 11:21 PM Result Value Ref Range Neutrophil abs 7.9 (H) 1.7 - 6.5 K/cumm Imm gran abs 0.0 0.0 - 0.1 K/cumm Lymphocyte abs 0.3 (L) 0.8 - 3.3 K/cumm Monocyte abs 0.3 0.2 - 0.8 K/cumm Eosinophil abs 0.0 0.0 - 0.5 K/cumm Basophil abs 0.0 0.0 - 0.1 K/cumm Neutrophil pct 92.3 % Imm gran pct 0.4 % Lymphocyte pct 3.9 % Monocyte pct 3.3 % Eosinophil pct 0.0 % Basophil pct 0.1 % Triglycerides Collection Time: 08/09/22 11:21 PM Result Value Ref Range Triglycerides 39 <=149 mg/dL eGFR Collection Time: 08/09/22 11:21 PM Result Value Ref Range eGFR >90 90 - 130 mL/min/1.73 m2 Lipid panel Collection Time: 08/09/22 11:21 PM Result Value Ref Range Cholesterol 101 30 - 199 mg/dL Triglycerides 39 <=149 mg/dL HDL 41 >=40 mg/dL LDL, calculated 52 <=129 mg/dL Non-HDL Cholesterol 60 mg/dL Chol/HDL ratio 2 POCT glucose Collection Time: 08/10/22 3:05 AM Result Value Ref Range Glucose, POC 166 70 - 199 mg/dL POCT glucose Collection Time: 08/10/22 7:42 AM Result Value Ref Range Glucose, POC 145 70 - 199 mg/dL POCT glucose Collection Time: 08/10/22 11:28 AM Result Value Ref Range Glucose, POC 145 70 - 199 mg/dL POCT glucose Collection Time: 08/10/22 3:22 PM Result Value Ref Range Glucose, POC 143 70 - 199 mg/dL POCT glucose Collection Time: 08/10/22 7:15 PM Result Value Ref Range Glucose, POC 173 70 - 199 mg/dL CBC with auto differential Collection Time: 08/10/22 8:27 PM Result Value Ref Range WBC 12.3 (H) 3.8 - 9.9 K/cumm Hgb 11.1 (L) 11.9 - 15.5 g/dL Hct 34.1 (L) 35.6 - 45.5 % Plt 200 150 - 400 K/cumm MPV 11.9 9.1 - 12.3 fL RBC 3.48 (L) 3.90 - 5.20 M/cumm MCV 98.0 (H) 81.3 - 96.4 fL MCH 31.9 27.1 - 33.3 pg MCHC 32.6 32.3 - 35.7 g/dL RDW CV 12.6 11.1 - 14.9 % RDW SD 45.1 35.7 - 48.1 fL NRBC abs 0.00 0.00 - 0.01 K/cumm Comprehensive metabolic panel Collection Time: 08/10/22 8:27 PM Result Value Ref Range Sodium 144 135 - 145 mmol/L Potassium, pl 4.0 3.3 - 4.9 mmol/L Chloride 105 97 - 110 mmol/L CO2 28 22 - 32 mmol/L Anion gap 11 2 - 15 mmol/L BUN 8 8 - 25 mg/dL Creatinine 0.61 0.60 - 1.10 mg/dL Glucose 141 70 - 199 mg/dL Calcium 9.0 8.5 - 10.3 mg/dL Bilirubin, total 0.4 0.1 - 1.2 mg/dL Protein, pl 6.9 6.5 - 8.5 g/dL Albumin 4.2 3.5 - 5.0 g/dL Alk phos 34 (L) 40 - 130 Units/L ALT 17 7 - 45 Units/L AST 29 10 - 45 Units/L Magnesium Collection Time: 08/10/22 8:27 PM Result Value Ref Range Magnesium 2.4 1.4 - 2.5 mg/dL Phosphorus Collection Time: 08/10/22 8:27 PM Result Value Ref Range Phosphorus, pl 2.8 2.3 - 4.5 mg/dL Differential, auto Collection Time: 08/10/22 8:27 PM Result Value Ref Range Neutrophil abs 10.7 (H) 1.7 - 6.5 K/cumm Imm gran abs 0.1 0.0 - 0.1 K/cumm Lymphocyte abs 0.8 0.8 - 3.3 K/cumm Monocyte abs 0.8 0.2 - 0.8 K/cumm Eosinophil abs 0.0 0.0 - 0.5 K/cumm Basophil abs 0.0 0.0 - 0.1 K/cumm Neutrophil pct 86.9 % Imm gran pct 0.4 % Lymphocyte pct 6.5 % Monocyte pct 6.2 % Eosinophil pct 0.0 % Basophil pct 0.0 % eGFR Collection Time: 08/10/22 8:27 PM Result Value Ref Range eGFR >90 90 - 130 mL/min/1.73 m2 POCT glucose Collection Time: 08/10/22 11:03 PM Result Value Ref Range Glucose, POC 126 70 - 199 mg/dL Imaging Review: No new imaging Assessment/Plan Principal Problem: Spinal stenosis in cervical region Active Problems: Generalized osteoarthritis Fibromyalgia Depression Muscle spasm Cervical spinal stenosis Osteoporosis GERD (gastroesophageal reflux disease) S/P cervical discectomy NEURO: #Acute Pain, improving - APAP 1000mg q6h - Restart home baclofen at 10mg QID to avoid withdrawal - Home gabapentin 300mg BID - Home methocarbamol 1000mg q8h - Cyclobenzaprine 5mg TID PRN - Oxycodone 5mg q4h PRN #C3-6 ACDF c/b neck hematoma with airway compromise requiring re-intubation s/p evacuation - Q4h NC - Per ortho, continue c-collar - No HOB restriction - Monitor drain output; strip drain q1h - Appropriate for TTF when bed available #CECE/MDD - Home aripiprazole 12.5 nightly - Home duloxetine 60mg BID CV: #Tachycardia - Follows with human resource analyst; has had full work-up that was unremarkable - Continue home metoprolol 25mg daily PULM: - BC GI: Diet: Regular Bowel regimen: PEG daily, senna-docusate daily PUD PPx: N/A ENDO: No active issues RENAL: Fluid balance goal: Auto Maintenance IV fluids: None Electrolyte repletion orders: Per protocol - Remove bundy HEME: #ABLA #Postop neck hematoma s/p evacuation Lab Results Component Value Date HGB 11.1 (L) 08/10/2022 - Neck supple without evidence of hematoma re-accumulation - Drain with appropriate sanguinous output - No s/s bleeding - CBC daily ID: #Leukocytosis - WBC 12.3 (8.6) - S/p periop cefazolin and vancomycin - Afebrile; no s/s infection - CBC daily MSK: #C3-6 ACDF c/b neck hematoma with airway compromise requiring re-intubation s/p evacuation - Q4h NC - Per ortho, continue c-collar - No HOB restriction - Monitor drain output; strip drain q1h - Appropriate for TTF when bed available #Fibromyalgia - Pain control per above Intensive Care Unit Standards of Care: Restraints: None DVT prophylaxis: SCDs; per ortho, start pharmacologic DVT ppx POD4 Vascular access: PIV x2 Goals of care: Full code Cosigned by Olivier Phillips MD at 08/12/2022 5:42 AM [employer] [employer] TECHNICIAN [facility] [employer] TECHNICIAN [employer] TECHNICIAN * Nicole Lazar, PT - 08/11/2022 8:09 AM CST Physical Therapy Physical Therapy Initial Assessment NOTE: This is a summary note for the carbajal assessments completed during the evaluation session. For full details, review chart review for all flowsheets documented on by this physical therapist on thisdate. Vital signs documented in vital signs flowsheet. Assessment Assessment Prognosis: Good Problem List: Gait deviations, Decreased strength, Decreased endurance, Impaired balance, Pain Problem List Comments: PT Diagnosis: s/p C3-C6 ACDF on 08/09 Postop course complicated with RTOR forI&D of neck with evacuation of hematoma w/drain placement and closure on 08/09 results in above listed activity deficits and impairments which prevent full participation in home and community mobility. Plan Plan Plan : Plan of care initiated, If this is the last note, consider this the discharge summary PT Recommendation and Plan Recommendation/Plan PT Recommendation/Plan: Home with 24 hour supervision PT Frequency during current admission: 5-7x/wk Treatment/Interventions during current admission: Bed mobility, Balance Training, Functional transfer training, Gait training, Stair training, Strengthening, Therapeutic activity, Therapeutic exercise PT - Next Appointment: 08/12/22 PT Evaluation Complete: Yes General Information General Chart Reviewed: Yes Session Type: Evaluation PT Received On: 08/11/22 Safe Environment: Arm Band Checked, Call Light within Reach, Notified RN, Patient found in Supine, Overbed Table within Reach Subjective: Agreeable to Therapy Family/Caregiver Present: Yes Prior Function Prior Function Level of [place]: Independent functional transfers, Independent with ambulation Lives With: Family Receives Help From: Family (per patient her son can assist her FT) Fall within the last 6 months: No Home Living Home Living Type of Home: House Home Layout: Two level, 1/2 bath on main level, Bed/bath upstairs, Stairs with rails # of Steps-Railed: 12 (per patient has stair lift she can utilize.) Home Access: Stairs to enter without rails Entrance Stairs-Rails: None Entrance Stairs-Number of Steps: 2 Home Mobility Equipment: Wheeled walker, Single point cane Additional Comments: no DME use at baseline however Precautions Precautions Precautions: Fall risk, Cervical spine Braces/Orthoses: Cervical collar Precaution Handout Issued: Yes (cervical spine precautions handout issued) Precaution Comments: verbally reviewed precautions prior to mobility, pt able to verbalize/demonstrate understaning. PPE worn by PT:gloves,mask. Pain Pain Assessment Pain Assessment: 0-10 Pain Score: 6 Pain Location: Back (Lumbar) Pain Interventions: RN Notified, Repositioned Cognition Cognition Arousal/Alertness: Alert, Appropriate responses to stimuli Orientation : Oriented X4 (person, place, time, situation) Following Commands: Follows all commands and directions without difficulty 6 Clicks Basic Mobility - 6 Click How much difficulty does the patient have: Turning over in bed: A little How much difficulty does the patient currently have: Sitting down and standing up from a chair witharms?: A little How much difficulty does the patient have: Moving from lying on back to sitting on the side of the bed?: A little How much difficulty does the patient have: Moving to and from a bed to a chair including wheelchair?: A little How much help does the patient currently need: Walk in hospital room?: A little How much help from another person does the patient currently need: Climbing 3-5 steps with a railing?: A little Total 6 Click Score (range 6-24): 18 Score Interpretation: 18 Bed Mobility Bed Mobility Bed Mobility: Yes Bed Mobility 1 Bed Mobility From 1: Supine Bed Mobility Type 1: To Bed Mobility to 1: Edge of bed Level of Assistance 1: Minimum Assist Bed Mobility Comments 1: assist for safety, force production, cueing for sequencing. Transfers Transfers Transfer: Yes Transfer 1 Transfer From 1: Sit Transfer Type 1: To and from Transfer to 1: Stand Technique 1: Sit to stand, Stand to sit Transfer Device 1: Wheeled walker Transfer Level of Assistance 1: Minimum Assist Trials/Comments 1: assist for safety/balance. pt has increased posterior lean when intially standing. cueing for sequencing to avoid increased WB through arms. Balance Static Sitting Balance Static Sitting-Balance Support: No upper extremity supported, Feet supported Static Sitting-Sitting Surface: Bed Static Sitting-Level of Assistance: Distant supervision Static Sitting-Comment/# of Minutes: safety Static Standing Balance Static Standing-Balance Support: Bilateral upper extremity supported (WW) Static Standing-Standing Surface: Floor Static Standing-Level of Assistance: Close supervision Static Standing-Comment/# of Minutes: safety/balance. Ambulation Ambulation Ambulation: Yes Ambulation 1 Distance (ft) 1: 24 Surface 1: Level tile Device 1: Wheeled walker Assistance 1: Contact Guard Assist Gait: Requires assist with 1: Maintaining balance Gait: Requires verbal cues to 1: Use assistive device safely, Improve upright posture, Increase step length, Increase base of support Quality of Gait 1: narrow DAMION, decreased adam/step length, flexed posture Stairs Stairs Stairs: No Curbs RLE Assessment RLE Assessment RLE Assessment: Within Functional Limits LLE Assessment LLE Assessment LLE Assessment: Within Functional Limits Equipment Used Equipment Use Equipment Use Comments: gait belt utilized Other Comments Other Comments Other PT Comments: pt left sitting in chair with all lines intact, RN aware. PT Goals Multi-Disciplinary Problems (from Physical Therapy) Active Problems Problem: Mobility Start Date: 08/11/22 Goal Start Date Expected End Date End Date STG - Patient will ambulate 08/11/22 08/25/22 -- Goal Details: 200 ft, LRAD, SBA Goal Start Date Expected End Date End Date STG - Patient will ascend and descend 2 stairs with the following level of assist: 08/11/22 08/25/22 -- Goal Details: SBA Problem: Transfers Start Date: 08/11/22 Goal Start Date Expected End Date End Date STG - Patient to transfer to and from sit to supine 08/11/22 08/25/22 -- Goal Details: Mod I Goal Start Date Expected End Date End Date STG - Patient will transfer sit to and from stand 08/11/22 08/25/22 -- Goal Details: Mod I Problem: Precautions Start Date: 08/11/22 Goal Start Date Expected End Date End Date STG - Patient will demonstrate precautions consistently during mobility and ambulation. 08/11/22 08/25/22 -- Goal Details: Cervical spine For questions, please review the treatment team and contact the PT or ORE DIGGER currently assigned to this patient. If a physical therapy clinician is not assigned to this patient, please call [phone]. [employer] LABORATORY TECHNICIAN * Shiva Puente MD - 08/11/2022 6:21 AM CST Surgical ICU Daily Progress Team: Red AM Subjective Patient is a 62 y.o. female admitted on 08/09/2022 9:47 AM with chief complaint of C3-6 ACDF on airway compromise 2/2 neck hematoma requiring re- intubation s/p hematoma evacuation. Interval History: - Successfully extubated yesterday, now BC - Reported pain overnight in lumbar spine, so oxy increased to 10mg but this made the pt feel too sleepy so decreased back to 5mg q4h PRN - Pain well controlled this AM - Tolerating regular diet with good PO intake Objective Physical Exam: Physical Exam Vitals reviewed. Constitutional: General: She is not in acute distress. Appearance: Normal appearance. HENT: Head: Normocephalic and atraumatic. Mouth/Throat: Mouth: Mucous membranes are moist. Eyes: Extraocular Movements: Extraocular movements intact. Conjunctiva/sclera: Conjunctivae normal. Pupils: Pupils are equal, round, and reactive to light. Neck: Comments: No evidence of hematoma Incision covered by dressing Drain with appropriate serosanguinous output Cardiovascular: Rate and Rhythm: Normal rate and regular rhythm. Pulses: Normal pulses. Heart sounds: Normal heart sounds. Pulmonary: Effort: Pulmonary effort is normal. No respiratory distress. Breath sounds: Normal breath sounds. No wheezing. Abdominal: General: Abdomen is flat. There is no distension. Palpations: Abdomen is soft. Tenderness: There is no abdominal tenderness. Musculoskeletal: General: Normal range of motion. Cervical back: Neck supple. No rigidity or tenderness. Right lower leg: No edema. Left lower leg: No edema. Skin: General: Skin is warm and dry. Capillary Refill: Capillary refill takes less than 2 seconds. Neurological: General: No focal deficit present. Mental Status: She is alert and oriented to person, place, and time. Sensory: No sensory deficit. Motor: No weakness. Medications Scheduled Meds:acetaminophen, 1,000 mg, oral, Q6H SARAHI ARIPiprazole, 12.5 mg, oral, Nightly baclofen, 10 mg, oral, QID DULoxetine DR, 60 mg, oral, BID estradiol-norethindrone, 1 tablet, oral, Nightly gabapentin, 300 mg, oral, BID methocarbamoL, 1,000 mg, oral, Q8H metoprolol XL, 25 mg, oral, Daily montelukast, 10 mg, oral, Nightly polyethylene glycol, 17 g, oral, Daily senna-docusate, 1 tablet, oral, Nightly sodium chloride 0.9%, 0.5-20 mL, intra-catheter, Q8H SARAHI Continuous Infusions: PRN Meds:. albuterol cyclobenzaprine HYDROmorphone oxyCODONE ramelteon sodium chloride 0.9% Vital signs for last 24 hours: Temp: [36.9 ??C (98.4 ??F)-37.6 ??C (99.7 ??F)] 37.3 ??C (99.1 ??F) Pulse: [61-112] 74 BP: (115-166)/(65-92) 115/72 Resp: [10-24] 11 SpO2: [93 %-100 %] 95 % FiO2 (%): [40 %] 40 % Hemodynamics: MAP (mmHg): [81-110] 82 Pulmonary Support: O2 Therapy: None (Room air) O2 Del Method: Nasal cannula FiO2 (%): 40 % O2 Flow Rate (L/min): 2 L/min Adult Vent Mode: Pressure support Ventilation FiO2 (%): 40 % PEEP/CPAP/EPAP (cm H2O): 5 cm H20 Pressure Support (cm H2O): 10 cm H20 Intake/Output: Intake/Output Summary (Last 24 hours) at 08/11/2022 1152 Last data filed at 08/11/2022 0900 Gross per 24 hour Intake 1360 ml Output 3035 ml Net -1675 ml Lab/Radiology/Diagnostic Review: Recent Results (from the past 48 hour(s)) Type and screen Collection Time: 08/09/22 8:31 PM Result Value Ref Range Anabel[place], indirect Negative ABO Rh B Positive POC Blood Gas and Chemistries, Arterial - Collection Time: 08/09/22 9:33 PM Result Value Ref Range pH, Art POC 7.21 (L) 7.35 - 7.45 pCO2, Art POC 69 (H) 35 - 45 mmHg pO2, Art POC 44 (L) 83 - 108 mmHg Na, POC 139 135 - 145 mmol/L K POC 3.8 3.3 - 4.9 mmol/L Cl, POC 107 97 - 110 mmol/L Ionized Ca, POC 5.07 4.50 - 5.10 mg/dL Glucose, POC 215 (H) 70 - 199 mg/dL Lactate, POC 2.5 (H) 0.7 - 2.2 mmol/L SO2 (godwin) arterial 71 (L) 90 - 95 % Base excess, POC -1.5 mmol/L HCO3, Art POC 23 20 - 30 mmol/L Hct, POC 35.0 (L) 36.3 - 45.3 % O2 Sat, Art POC (Calc) 68 % Total Hb, POC 11.5 (L) 11.9 - 15.5 g/dL POCT glucose Collection Time: 08/09/22 10:51 PM Result Value Ref Range Glucose, POC 173 70 - 199 mg/dL Blood gas, arterial Collection Time: 08/09/22 11:21 PM Result Value Ref Range pH, Art 7.34 (L) 7.35 - 7.45 PCO2, Arterial 44 35 - 45 mmHg PO2, Arterial 181 (H) 83 - 108 mmHg HCO3 Art (Calculated) 24 20 - 30 mmol/L BE, art -2 mmol/L O2 Sat Art (Measured) 100 (H) 90 - 95 % Comprehensive metabolic panel Collection Time: 08/09/22 11:21 PM Result Value Ref Range Sodium 143 135 - 145 mmol/L Potassium, pl 3.8 3.3 - 4.9 mmol/L Chloride 108 97 - 110 mmol/L CO2 25 22 - 32 mmol/L Anion gap 10 2 - 15 mmol/L BUN 9 8 - 25 mg/dL Creatinine 0.64 0.60 - 1.10 mg/dL Glucose 161 70 - 199 mg/dL Calcium 8.4 (L) 8.5 - 10.3 mg/dL Bilirubin, total 0.2 0.1 - 1.2 mg/dL Protein, pl 6.0 (L) 6.5 - 8.5 g/dL Albumin 4.0 3.5 - 5.0 g/dL Alk phos 29 (L) 40 - 130 Units/L ALT 13 7 - 45 Units/L AST 15 10 - 45 Units/L Magnesium Collection Time: 08/09/22 11:21 PM Result Value Ref Range Magnesium 1.9 1.4 - 2.5 mg/dL Phosphorus Collection Time: 08/09/22 11:21 PM Result Value Ref Range Phosphorus, pl 3.1 2.3 - 4.5 mg/dL CBC with auto differential Collection Time: 08/09/22 11:21 PM Result Value Ref Range WBC 8.6 3.8 - 9.9 K/cumm Hgb 10.0 (L) 11.9 - 15.5 g/dL Hct 30.3 (L) 35.6 - 45.5 % Plt 196 150 - 400 K/cumm MPV 11.0 9.1 - 12.3 fL RBC 3.19 (L) 3.90 - 5.20 M/cumm MCV 95.0 81.3 - 96.4 fL MCH 31.3 27.1 - 33.3 pg MCHC 33.0 32.3 - 35.7 g/dL RDW CV 12.1 11.1 - 14.9 % RDW SD 42.6 35.7 - 48.1 fL NRBC abs 0.00 0.00 - 0.01 K/cumm Differential, auto Collection Time: 08/09/22 11:21 PM Result Value Ref Range Neutrophil abs 7.9 (H) 1.7 - 6.5 K/cumm Imm gran abs 0.0 0.0 - 0.1 K/cumm Lymphocyte abs 0.3 (L) 0.8 - 3.3 K/cumm Monocyte abs 0.3 0.2 - 0.8 K/cumm Eosinophil abs 0.0 0.0 - 0.5 K/cumm Basophil abs 0.0 0.0 - 0.1 K/cumm Neutrophil pct 92.3 % Imm gran pct 0.4 % Lymphocyte pct 3.9 % Monocyte pct 3.3 % Eosinophil pct 0.0 % Basophil pct 0.1 % Triglycerides Collection Time: 08/09/22 11:21 PM Result Value Ref Range Triglycerides 39 <=149 mg/dL eGFR Collection Time: 08/09/22 11:21 PM Result Value Ref Range eGFR >90 90 - 130 mL/min/1.73 m2 Lipid panel Collection Time: 08/09/22 11:21 PM Result Value Ref Range Cholesterol 101 30 - 199 mg/dL Triglycerides 39 <=149 mg/dL HDL 41 >=40 mg/dL LDL, calculated 52 <=129 mg/dL Non-HDL Cholesterol 60 mg/dL Chol/HDL ratio 2 POCT glucose Collection Time: 08/10/22 3:05 AM Result Value Ref Range Glucose, POC 166 70 - 199 mg/dL POCT glucose Collection Time: 08/10/22 7:42 AM Result Value Ref Range Glucose, POC 145 70 - 199 mg/dL POCT glucose Collection Time: 08/10/22 11:28 AM Result Value Ref Range Glucose, POC 145 70 - 199 mg/dL POCT glucose Collection Time: 08/10/22 3:22 PM Result Value Ref Range Glucose, POC 143 70 - 199 mg/dL POCT glucose Collection Time: 08/10/22 7:15 PM Result Value Ref Range Glucose, POC 173 70 - 199 mg/dL CBC with auto differential Collection Time: 08/10/22 8:27 PM Result Value Ref Range WBC 12.3 (H) 3.8 - 9.9 K/cumm Hgb 11.1 (L) 11.9 - 15.5 g/dL Hct 34.1 (L) 35.6 - 45.5 % Plt 200 150 - 400 K/cumm MPV 11.9 9.1 - 12.3 fL RBC 3.48 (L) 3.90 - 5.20 M/cumm MCV 98.0 (H) 81.3 - 96.4 fL MCH 31.9 27.1 - 33.3 pg MCHC 32.6 32.3 - 35.7 g/dL RDW CV 12.6 11.1 - 14.9 % RDW SD 45.1 35.7 - 48.1 fL NRBC abs 0.00 0.00 - 0.01 K/cumm Comprehensive metabolic panel Collection Time: 08/10/22 8:27 PM Result Value Ref Range Sodium 144 135 - 145 mmol/L Potassium, pl 4.0 3.3 - 4.9 mmol/L Chloride 105 97 - 110 mmol/L CO2 28 22 - 32 mmol/L Anion gap 11 2 - 15 mmol/L BUN 8 8 - 25 mg/dL Creatinine 0.61 0.60 - 1.10 mg/dL Glucose 141 70 - 199 mg/dL Calcium 9.0 8.5 - 10.3 mg/dL Bilirubin, total 0.4 0.1 - 1.2 mg/dL Protein, pl 6.9 6.5 - 8.5 g/dL Albumin 4.2 3.5 - 5.0 g/dL Alk phos 34 (L) 40 - 130 Units/L ALT 17 7 - 45 Units/L AST 29 10 - 45 Units/L Magnesium Collection Time: 08/10/22 8:27 PM Result Value Ref Range Magnesium 2.4 1.4 - 2.5 mg/dL Phosphorus Collection Time: 08/10/22 8:27 PM Result Value Ref Range Phosphorus, pl 2.8 2.3 - 4.5 mg/dL Differential, auto Collection Time: 08/10/22 8:27 PM Result Value Ref Range Neutrophil abs 10.7 (H) 1.7 - 6.5 K/cumm Imm gran abs 0.1 0.0 - 0.1 K/cumm Lymphocyte abs 0.8 0.8 - 3.3 K/cumm Monocyte abs 0.8 0.2 - 0.8 K/cumm Eosinophil abs 0.0 0.0 - 0.5 K/cumm Basophil abs 0.0 0.0 - 0.1 K/cumm Neutrophil pct 86.9 % Imm gran pct 0.4 % Lymphocyte pct 6.5 % Monocyte pct 6.2 % Eosinophil pct 0.0 % Basophil pct 0.0 % eGFR Collection Time: 08/10/22 8:27 PM Result Value Ref Range eGFR >90 90 - 130 mL/min/1.73 m2 POCT glucose Collection Time: 08/10/22 11:03 PM Result Value Ref Range Glucose, POC 126 70 - 199 mg/dL Imaging Review: No new imaging Assessment/Plan Principal Problem: Spinal stenosis in cervical region Active Problems: Generalized osteoarthritis Fibromyalgia Depression Muscle spasm Cervical spinal stenosis Osteoporosis GERD (gastroesophageal reflux disease) S/P cervical discectomy NEURO: #Acute Pain, improving - APAP 1000mg q6h - Restart home baclofen at 10mg QID to avoid withdrawal - Home gabapentin 300mg BID - Home methocarbamol 1000mg q8h - Cyclobenzaprine 5mg TID PRN - Oxycodone 5mg q4h PRN #C3-6 ACDF c/b neck hematoma with airway compromise requiring re-intubation s/p evacuation - Q4h NC - Per ortho, continue c-collar - No HOB restriction - Monitor drain output; strip drain q1h - Appropriate for TTF when bed available #CECE/MDD - Home aripiprazole 12.5 nightly - Home duloxetine 60mg BID CV: #Tachycardia - Follows with human resource analyst; has had full work-up that was unremarkable - Continue home metoprolol 25mg daily PULM: - BC GI: Diet: Regular Bowel regimen: PEG daily, senna-docusate daily PUD PPx: N/A ENDO: No active issues RENAL: Fluid balance goal: Auto Maintenance IV fluids: None Electrolyte repletion orders: Per protocol - Remove bundy HEME: #ABLA #Postop neck hematoma s/p evacuation Lab Results Component Value Date HGB 11.1 (L) 08/10/2022 - Neck supple without evidence of hematoma re-accumulation - Drain with appropriate sanguinous output - No s/s bleeding - CBC daily ID: #Leukocytosis - WBC 12.3 (8.6) - S/p periop cefazolin and vancomycin - Afebrile; no s/s infection - CBC daily MSK: #C3-6 ACDF c/b neck hematoma with airway compromise requiring re-intubation s/p evacuation - Q4h NC - Per ortho, continue c-collar - No HOB restriction - Monitor drain output; strip drain q1h - Appropriate for TTF when bed available #Fibromyalgia - Pain control per above Intensive Care Unit Standards of Care: Restraints: None DVT prophylaxis: SCDs; per ortho, start pharmacologic DVT ppx POD4 Vascular access: PIV x2 Goals of care: Full code Kimmie Barton MD Resident Physician, PGY-1 Otolaryngology - Head & Neck Surgery I have seen and examined this patient on the day of service. I have reviewed and confirmed the history, physical exam, laboratory and radiographic data with the house staff as documented in the ICU resident note. I have reviewed and discussed my treatment plan with the ICU team and other medical/edi consultant staff. Shiva Puente MD [employer] LABORATORY TECHNICIAN [employer] LABORATORY TECHNICIAN [employer]ATION LABORATORY TECHNICIAN [employer]ATION LABORATORY TECHNICIAN * Vivek Erickson MD - 08/11/2022 5:29 AM CST Orthopaedic Spine Daily Progress Note 08/11/2022 Hospital Course 08/09: OR. POC done. Patient decompensated after POC with stridor and neck fullness. Patient underwent emergent evacuation of hematoma at bedside followed by I&D and evacuation of hematoma in OR. 08/10: Extubated. Doing well. Awaiting floor bed. Subjective No complaints and pain well controlled. Extubated. Hb 11.1 HV 30/140. Hold DVT ppx, keep drain (strip frequently), ok for bundy out if mobilizes. OOB/PT/OT as able. Objective Physical Exam: General: Well-developed well-nourished in no acute distress. Follows commands Intubated/sedated. Distal pulses are palpable and rhythm is regular Inspection: Dressing intact, neck soft, non-distended Drain: Holding suction Motor: Muscle Strength Left Right Deltoid 5/5 5/5 Biceps 5/5 5/5 Triceps 5/5 5/5 Wrist extension 5/5 5/5 Wrist flexion 5/5 5/5 Parts Assembler 5/5 5/5 Interosseous of hand 5/5 5/5 Iliopsoas 5/5 5/5 Quadriceps 5/5 5/5 Hamstrings 5/5 5/5 Tibialis anterior 5/5 5/5 Extensor hallicus longus 5/5 5/5 Gastrocsoleus complex 5/5 5/5 Sensation Left upper extremity: sensation intact to light touch in C5 to T1 dermatomes. Right upper extremity: sensation intact to light touch in C5 to T1 dermatomes. Left lower extremity: sensation intact to light touch in L2 to S1 dermatomes. Right lower extremity: sensation intact to light touch in L2 to S1 dermatomes. *responds to touch, limited by intubation Long-tract signs: Positive Mathew's bilaterally No clonus Vascular: Bilateral Upper Extremity: 2+ radial pulse, fingers WWP Bilateral Lower Extremity 2+ pedal pulses, toes WWP with BCR Vitals: 24hr min/max vitals: Temp Min: 36.9 ??C (98.4 ??F) Max: 37.6 ??C (99.7 ??F) Pulse Min: 61 Max: 112 Resp Min: 0 Max: 24 SpO2 Min: 93 % Max: 100 % MAP (mmHg) Min: 69 Max: 110 Intake and output: I/O last 2 completed shifts: In: 1996.8 [I.V.:966.8; IV Piggyback:1030] Out: 3325 [Urine:3160; Drains:115; Blood:50] Medications: Scheduled Scheduled Medications Medication Dose Route Frequency acetaminophen (TYLENOL) tablet 1,000 mg 1,000 mg oral Q6H SARAHI ARIPiprazole (ABILIFY) tablet 5 mg 5 mg oral Nightly ARIPiprazole (ABILIFY) tablet 7.5 mg 7.5 mg oral Nightly DULoxetine DR (CYMBALTA) extended release capsule 60 mg 60 mg oral BID estradiol-norethindrone (ACTIVELLA) 0.5-0.1 mg per tablet 1 tablet 1 tablet oral Nightly gabapentin (NEURONTIN) capsule 300 mg 300 mg oral BID methocarbamoL (ROBAXIN) tablet 1,000 mg 1,000 mg oral Q8H metoprolol XL (TOPROL-XL) extended release tablet 25 mg 25 mg oral Daily montelukast (SINGULAIR) tablet 10 mg 10 mg oral Nightly senna-docusate (PERICOLACE) 8.6-50 mg per tablet 1 tablet 1 tablet oral Nightly sodium chloride 0.9% flush 0.5-20 mL 0.5-20 mL intra-catheter Q8H SARAHI As needed PRN Medications Medication Dose Route Frequency Last Admin albuterol 2.5 mg/0.5 mL nebulizer solution 2.5 mg 2.5 mg nebulization Once PRN cyclobenzaprine (FLEXERIL) tablet 5 mg 5 mg oral TID PRN 5 mg at 08/10/221815 HYDROmorphone (DILAUDID) injection 0.2 mg 0.2 mg intravenous Q4H PRN oxyCODONE (ROXICODONE) tablet 10 mg 10 mg oral Q3H PRN ramelteon (ROZEREM) tablet 8 mg 8 mg oral Nightly PRN 8 mg at 08/10/222009 sodium chloride 0.9% flush 0.5-20 mL 0.5-20 mL intra-catheter PRN Labs: Lab Results Component Value Date SODIUM 144 08/10/2022 SODIUM 143 08/09/2022 SODIUM 142 07/20/2022 Lab Results Component Value Date GLUCOSE 126 08/10/2022 CALCIUM 9.0 08/10/2022 POTASSIUM 4.0 08/10/2022 CO2 28 08/10/2022 CHLORIDE 105 08/10/2022 BUNSER 8 08/10/2022 CREATININE 0.61 08/10/2022 Lab Results Component Value Date WBC 12.3 (H) 08/10/2022 WBC 8.6 08/09/2022 WBC 4.5 07/20/2022 HGB 11.1 (L) 08/10/2022 HGB 10.0 (L) 08/09/2022 HGB 11.5 (L) 08/09/2022 HCT 34.1 (L) 08/10/2022 HCT 30.3 (L) 08/09/2022 HCT 35.0 (L) 08/09/2022 LABPLAT 200 08/10/2022 LABPLAT 196 08/09/2022 LABPLAT 235 07/20/2022 No results found for: INR, PT, APTT No components found for: TROPONIN PT/OT assessment: Assessment/Plan Hospital Day: 3 Annette Santiago is a 62 y.o. year old female who is s/p C3-6 ACDF with emergent OR takeback for I&D and evacuation postoperative hematoma (s/p bedside hematoma evacuation) on 08/09/22. Plan Drains: Maintain, strip frequently (at least q1h) Abx: Vanc/ancef X 24 hours DVT prophylaxis: SCDs and ambulatory Please call with questions. See below for overnight issues. If questions arise on patients at [facility] and the appropriate resident/fellow can't be reached or you are calling overnight, please contact [phone] ([facility] 7:30 PM - 6:30 AM - Floor Resident) or [phone] (24 hours/day - Consult Resident) If you are calling about a patient at [facility] please page/call fellow or resident long term care administrator. Note created by Vivek Erickson MD on 08/11/2022 at 5:30 AM. Cosigned by Olivier Marion MD at 08/14/2022 8:15 AM CALIBRATION LABORATORY TECHNICIAN BRATION LABORATORY TECHNICIAN BRATION LABORATORY TECHNICIAN * Shamar Lema MD - 08/11/2022 12:28 AM CST Ortho Spine Post-Op Note Surgical Procedure: Procedure(s) (LRB): FUSION CERVICAL ANTERIOR DISCECTOMY WITH INSTRUMENTATION- C3-C6 instrumented anterior cervical discectomy and fusion with structural allograft (N/A) SPINAL CORD MONITORING (N/A) Subjective Annette Santiago seen y in the SICU. Patient is awake and alert to verbal stimuli. Pain is controlled. The patient denies chest pain, denies nausea/emesis, and denies shortness of breath. Overall patient doing well and without any concerns or complaints. Objective Vitals: Most Recent: Vitals: 08/10/22 2300 BP: 139/69 Pulse: 70 Resp: 13 Temp: 36.9 ??C (98.4 ??F) SpO2: 96% Physical Exam: Gen: no acute distress Neuro: A&Ox4 Motor: Muscle Strength Right Left Shoulder abduction (C5) 5/5 5/5 Elbow flexion (C5/6) 5/5 5/5 Elbow extension (C7) 5/5 5/5 Wrist extension (C6) 5/5 5/5 Wrist flexion (C7) 5/5 5/5 Parts Assembler (C8) 5/5 5/5 Interosseous of hand (T1) 5/5 5/5 Iliopsoas (L2/3) 5/5 5/5 Quadriceps (L3/4) 5/5 5/5 Tibialis anterior (L4/5) 5/5 5/5 Extensor hallicus longus (L5) 5/5 5/5 Gastrocsoleus complex (S1) 5/5 5/5 Sensation Left upper extremity: SILT C6 to T1 dermatomes; decreased sensation to C5 Right upper extremity: SILT C5 to T1 dermatomes. Left lower extremity: SILT L2 to S1 dermatomes. Right lower extremity: SILT L2 to S1 dermatomes Vascular: Bilateral Upper Extremity: 2+ radial pulse, fingers WWP Bilateral Lower Extremity: 2+ DP pulse, toes WWP Assessment/Plan Patient is recovering appropriately. Patient's C-collar was changed to a larger size to fit more appropriately. Cosigned by Olivier Marion MD at 08/14/2022 8:17 AM CALIBRATION LABORATORY TECHNICIAN BRATION LABORATORY TECHNICIAN BRATION LABORATORY TECHNICIAN * Gabriella Kaplan MD - 08/10/2022 8:30 PM CST Surgical ICU Daily Progress Team: Red PM Subjective Patient is a 62 y.o. female admitted on 08/09/2022 9:47 AM with chief complaint of C3-6 ACDF on airway compromise 2/2 neck hematoma requiring re- intubation s/p hematoma evacuation. Interval History: -oxy 10mg q3h, dilaudid PRN -ramelteon PRN for sleep -q12h NV checks Objective Physical Exam: Physical Exam Vitals reviewed. Constitutional: General: She is not in acute distress. Appearance: Normal appearance. HENT: Head: Normocephalic and atraumatic. Eyes: Extraocular Movements: Extraocular movements intact. Conjunctiva/sclera: Conjunctivae normal. Pupils: Pupils are equal, round, and reactive to light. Neck: Comments: No evidence of hematoma Drain with appropriate sanguinous output Cardiovascular: Rate and Rhythm: Normal rate and regular rhythm. Pulses: Normal pulses. Heart sounds: Normal heart sounds. Pulmonary: Effort: Pulmonary effort is normal. No respiratory distress. Abdominal: General: Abdomen is flat. There is no distension. Palpations: Abdomen is soft. Tenderness: There is no abdominal tenderness. Musculoskeletal: General: Normal range of motion. Cervical back: Neck supple. No rigidity or tenderness. Right lower leg: No edema. Left lower leg: No edema. Skin: General: Skin is warm and dry. Capillary Refill: Capillary refill takes less than 2 seconds. Neurological: General: No focal deficit present. Mental Status: She is alert and oriented to person, place, and time. Sensory: No sensory deficit. Motor: No weakness. Medications Scheduled Meds:acetaminophen, 1,000 mg, oral, Q6H SARAHI ARIPiprazole, 5 mg, oral, Nightly ARIPiprazole, 7.5 mg, oral, Nightly ceFAZolin, 1,000 mg, intravenous, Q8H DULoxetine DR, 60 mg, oral, BID estradiol-norethindrone, 1 tablet, oral, Nightly gabapentin, 300 mg, oral, BID insulin lispro, 1-3 Units, subcutaneous, Q4H SARAHI methocarbamoL, 1,000 mg, oral, Q8H metoprolol XL, 25 mg, oral, Daily montelukast, 10 mg, oral, Nightly polyethylene glycol, 17 g, oral, Daily senna-docusate, 1 tablet, oral, Nightly sodium chloride 0.9%, 0.5-20 mL, intra-catheter, Q8H SARAHI Continuous Infusions: PRN Meds:. albuterol cyclobenzaprine dextrose OR dextrose glucagon oxyCODONE ramelteon sodium chloride 0.9% Vital signs for last 24 hours: Temp: [36.3 ??C (97.3 ??F)-37.6 ??C (99.7 ??F)] 37.3 ??C (99.1 ??F) Pulse: [55-112] 84 BP: (91-166)/(50-92) 131/76 Resp: [0-24] 16 SpO2: [94 %-100 %] 94 % FiO2 (%): [40 %] 40 % Hemodynamics: MAP (mmHg): [59-110] 91 Pulmonary Support: O2 Therapy: None (Room air) O2 Del Method: Nasal cannula FiO2 (%): 40 % O2 Flow Rate (L/min): 2 L/min Adult Vent Mode: Pressure support Ventilation FiO2 (%): 40 % S RR: 24 PEEP/CPAP/EPAP (cm H2O): 5 cm H20 Pressure Support (cm H2O): 10 cm H20 Intake/Output: Intake/Output Summary (Last 24 hours) at 08/10/20222029 Last data filed at 08/10/20221999 Gross per 24 hour Intake 2476.8 ml Output 4300 ml Net -1823.2 ml Lab/Radiology/Diagnostic Review: Recent Results (from the past 48 hour(s)) COVID-19 Coronavirus RNA Nasopharyngeal Collection Time: 08/09/22 11:12 AM Specimen: Nasopharyngeal Result Value Ref Range COVID-19 RNA Negative Negative Type and screen Collection Time: 08/09/22 8:31 PM Result Value Ref Range Anabelle, indirect Negative ABO Rh B Positive POC Blood Gas and Chemistries, Arterial - Collection Time: 08/09/22 9:33 PM Result Value Ref Range pH, Art POC 7.21 (L) 7.35 - 7.45 pCO2, Art POC 69 (H) 35 - 45 mmHg pO2, Art POC 44 (L) 83 - 108 mmHg Na, POC 139 135 - 145 mmol/L K POC 3.8 3.3 - 4.9 mmol/L Cl, POC 107 97 - 110 mmol/L Ionized Ca, POC 5.07 4.50 - 5.10 mg/dL Glucose, POC 215 (H) 70 - 199 mg/dL Lactate, POC 2.5 (H) 0.7 - 2.2 mmol/L SO2 (godwin) arterial 71 (L) 90 - 95 % Base excess, POC -1.5 mmol/L HCO3, Art POC 23 20 - 30 mmol/L Hct, POC 35.0 (L) 36.3 - 45.3 % O2 Sat, Art POC (Calc) 68 % Total Hb, POC 11.5 (L) 11.9 - 15.5 g/dL POCT glucose Collection Time: 08/09/22 10:51 PM Result Value Ref Range Glucose, POC 173 70 - 199 mg/dL Blood gas, arterial Collection Time: 08/09/22 11:21 PM Result Value Ref Range pH, Art 7.34 (L) 7.35 - 7.45 PCO2, Arterial 44 35 - 45 mmHg PO2, Arterial 181 (H) 83 - 108 mmHg HCO3 Art (Calculated) 24 20 - 30 mmol/L BE, art -2 mmol/L O2 Sat Art (Measured) 100 (H) 90 - 95 % Comprehensive metabolic panel Collection Time: 08/09/22 11:21 PM Result Value Ref Range Sodium 143 135 - 145 mmol/L Potassium, pl 3.8 3.3 - 4.9 mmol/L Chloride 108 97 - 110 mmol/L CO2 25 22 - 32 mmol/L Anion gap 10 2 - 15 mmol/L BUN 9 8 - 25 mg/dL Creatinine 0.64 0.60 - 1.10 mg/dL Glucose 161 70 - 199 mg/dL Calcium 8.4 (L) 8.5 - 10.3 mg/dL Bilirubin, total 0.2 0.1 - 1.2 mg/dL Protein, pl 6.0 (L) 6.5 - 8.5 g/dL Albumin 4.0 3.5 - 5.0 g/dL Alk phos 29 (L) 40 - 130 Units/L ALT 13 7 - 45 Units/L AST 15 10 - 45 Units/L Magnesium Collection Time: 08/09/22 11:21 PM Result Value Ref Range Magnesium 1.9 1.4 - 2.5 mg/dL Phosphorus Collection Time: 08/09/22 11:21 PM Result Value Ref Range Phosphorus, pl 3.1 2.3 - 4.5 mg/dL CBC with auto differential Collection Time: 08/09/22 11:21 PM Result Value Ref Range WBC 8.6 3.8 - 9.9 K/cumm Hgb 10.0 (L) 11.9 - 15.5 g/dL Hct 30.3 (L) 35.6 - 45.5 % Plt 196 150 - 400 K/cumm MPV 11.0 9.1 - 12.3 fL RBC 3.19 (L) 3.90 - 5.20 M/cumm MCV 95.0 81.3 - 96.4 fL MCH 31.3 27.1 - 33.3 pg MCHC 33.0 32.3 - 35.7 g/dL RDW CV 12.1 11.1 - 14.9 % RDW SD 42.6 35.7 - 48.1 fL NRBC abs 0.00 0.00 - 0.01 K/cumm Differential, auto Collection Time: 08/09/22 11:21 PM Result Value Ref Range Neutrophil abs 7.9 (H) 1.7 - 6.5 K/cumm Imm gran abs 0.0 0.0 - 0.1 K/cumm Lymphocyte abs 0.3 (L) 0.8 - 3.3 K/cumm Monocyte abs 0.3 0.2 - 0.8 K/cumm Eosinophil abs 0.0 0.0 - 0.5 K/cumm Basophil abs 0.0 0.0 - 0.1 K/cumm Neutrophil pct 92.3 % Imm gran pct 0.4 % Lymphocyte pct 3.9 % Monocyte pct 3.3 % Eosinophil pct 0.0 % Basophil pct 0.1 % Triglycerides Collection Time: 08/09/22 11:21 PM Result Value Ref Range Triglycerides 39 <=149 mg/dL eGFR Collection Time: 08/09/22 11:21 PM Result Value Ref Range eGFR >90 90 - 130 mL/min/1.73 m2 Lipid panel Collection Time: 08/09/22 11:21 PM Result Value Ref Range Cholesterol 101 30 - 199 mg/dL Triglycerides 39 <=149 mg/dL HDL 41 >=40 mg/dL LDL, calculated 52 <=129 mg/dL Non-HDL Cholesterol 60 mg/dL Chol/HDL ratio 2 POCT glucose Collection Time: 08/10/22 3:05 AM Result Value Ref Range Glucose, POC 166 70 - 199 mg/dL POCT glucose Collection Time: 08/10/22 7:42 AM Result Value Ref Range Glucose, POC 145 70 - 199 mg/dL POCT glucose Collection Time: 08/10/22 11:28 AM Result Value Ref Range Glucose, POC 145 70 - 199 mg/dL POCT glucose Collection Time: 08/10/22 3:22 PM Result Value Ref Range Glucose, POC 143 70 - 199 mg/dL POCT glucose Collection Time: 08/10/22 7:15 PM Result Value Ref Range Glucose, POC 173 70 - 199 mg/dL Imaging Review: No new imaging Assessment/Plan Principal Problem: Spinal stenosis in cervical region Active Problems: Generalized osteoarthritis Fibromyalgia Depression Muscle spasm Cervical spinal stenosis Osteoporosis GERD (gastroesophageal reflux disease) S/P cervical discectomy NEURO: #Acute Pain: - APAP q6h, oxycodone and dilaudid PRN #C3-6 ACDF c/b neck hematoma with airway compromise requiring re-intubation s/p evacuation - Q4h NC - Per ortho, continue c-collar - No HOB restriction - Monitor drain output; strip drain q4h #CECE/MDD - Home aripiprazole 12.5 nightly - Home duloxetine 60mg BID CV: #Tachycardia - Follows with human resource analyst; has had full work-up that was unremarkable - Continue home metoprolol 25mg daily PULM: Stable on room air GI: Diet: regular diet Bowel regimen: senna-docusate PUD PPx: N/A ENDO: No active issues RENAL: Fluid balance goal: Auto Maintenance IV fluids: none Electrolyte repletion orders: Per protocol HEME: #ABLA #Postop neck hematoma s/p evacuation Lab Results Component Value Date HGB 10.0 (L) 08/09/2022 - Neck supple without evidence of hematoma re-accumulation - Drain with appropriate sanguinous output - No s/s bleeding - CBC daily ID: No active issues - S/p periop cefazolin and vancomycin MSK: #C3-6 ACDF c/b neck hematoma with airway compromise requiring re-intubation s/p evacuation - Q4h NC - Per ortho, continue c-collar - No HOB restriction - Monitor drain output; strip drain q4h #Fibromyalgia - Pain control per above Intensive Care Unit Standards of Care: Restraints: Soft/mittens on BUE DVT prophylaxis: SCDs; start pharmacologic DVT ppx POD4 Vascular access: PIV x2 Goals of care: Full code Cosigned by Joe Trimble MD at 08/13/2022 1:55 PM CAL[employer]RATION LABORATORY TECHNICIAN [employer]ATION [employer]ORATORY TECHNICIAN BRATION LABORATORY TECHNICIAN * Sagrario Meyers RN - 08/10/2022 9:34 AM CST CM Initial Assessment Interview Note Information Obtained From: Patient (08/10/22932) Admission Source: non health care facility point of origin Impression: 62 y/o F with hx of back pain, GERD,fibromyalgia and spinal stenosis admitted for anterior C3-C6 ACDF Plan Includes: Await PT/OT recommendations. Anticipate retrun to home with spouse and son with HH PT/OT Primary Source of Transportation: Does the patient need discharge transport arranged?: No (08/10/22933) Health Insurance Coverage: [employer] Prescription Coverage: yes [facility]acy: [facility] Primary Care Provider: Rohan Rothman MD Prior to Admission: Primary Caregiver: Self Home Care Services: No Durable Medical Equipment: None Living Arrangements: Spouse/significant other Type of Residence: Private residence Steps in home? : Yes, Outside of home Number of steps outside:: 2 steps (08/10/22932) Potential discharge needs include: Home Health: Physical therapy, Occupational therapy (08/10/22932) Dialysis: No Behavioral Health Services: Behavioral Health Services: No (08/10/22932) Patient expects to be Discharged to: Private residence, (08/10/22932) Additional Information: Pt independent with all ADL's and medication management prior to admission. Patient's Identified Problem/Goal Problem: Ensure acute medical needs are met and that patient has a safe discharge plan. Goal: Secure a discharge plan that patient/family are agreeable with and ensure patient has continuum of care. Case management will follow for discharge planning and send referrals as needed. Goals include: To assure continuity of care, To maximize coping skills, To assure patient is in a safe environment and To assure access to community resources. Plan includes: 1. Collaboration with patient, MD, direct care nurse, Crating And Moving Estimator, and other members of the health care team to assure needed interventions completed. 2. Return patient to optimal level of self-care post discharge. 3. Mold Shaker will follow for Discharge Planning - interventions as needed 4. Anticipated level of care at discharge 5. Planned Discharge Disposition Based on a comprehensive family assessment, assistance with instrumental activities of daily livingafter discharge will be provided by pt. Through the course of our work I determined that the family possesses the skill and ability to provide and monitor the care of the patient when he or she returns home. \Family has the capacity to provide/monitor/arrange for the care of the patient. Finally, we determined that family has the knowledge of available resources and that combining them with their existing resources will suffice to sustain and care for the patient when he or she returns home. The treatment team is aware of this information. All are in agreement with the aftercare plan. Sagrario Meyers RN [employer]ATION LABORATORY TECHNICIAN * Shiva Puente MD - 08/10/2022 6:30 AM CST Surgical ICU Daily Progress Team: Iván RODRIGUEZ Subjective Patient is a 62 y.o. female admitted on 08/09/2022 9:47 AM with chief complaint of C3-6 ACDF on airway compromise 2/2 neck hematoma requiring re- intubation s/p hematoma evacuation. Interval History: - Admitted to SICU overnight - Remained intubated after hematoma evacuation - On phenylephrine overnight to facilitate sedation but has since been weaned off - BEST not performed overnight due to c/f difficult airway, so deferred to day team Objective Physical Exam: Physical Exam Vitals reviewed. Constitutional: General: She is not in acute distress. Appearance: Normal appearance. HENT: Head: Normocephalic and atraumatic. Mouth/Throat: Comments: ETT in place Eyes: Extraocular Movements: Extraocular movements intact. Conjunctiva/sclera: Conjunctivae normal. Pupils: Pupils are equal, round, and reactive to light. Neck: Comments: No evidence of hematoma Drain with appropriate sanguinous output Cardiovascular: Rate and Rhythm: Regular rhythm. Tachycardia present. Pulses: Normal pulses. Heart sounds: Normal heart sounds. Pulmonary: Effort: No respiratory distress. Comments: On ventilator Coarse breath sounds b/l Abdominal: General: Abdomen is flat. There is no distension. Palpations: Abdomen is soft. Tenderness: There is no abdominal tenderness. Musculoskeletal: General: Normal range of motion. Cervical back: Neck supple. No rigidity or tenderness. Right lower leg: No edema. Left lower leg: No edema. Skin: General: Skin is warm and dry. Capillary Refill: Capillary refill takes less than 2 seconds. Neurological: General: No focal deficit present. Mental Status: She is alert and oriented to person, place, and time. Sensory: No sensory deficit. Motor: No weakness. Medications Scheduled Meds:acetaminophen, 1,000 mg, oral, Once ceFAZolin, 1,000 mg, intravenous, Q8H chlorhexidine, 15 mL, mouth/throat, BID dexAMETHasone, 10 mg, intravenous, Q6H SARAHI insulin lispro, 1-3 Units, subcutaneous, Q4H SARAHI sodium chloride 0.9%, 0.5-20 mL, intra-catheter, Q8H SARAHI Continuous Infusions:dextrose 5% and Lactated Ringer's, 25 mL/hr, Last Rate: 25 mL/hr (08/09/22 4419) fentaNYL, 0-400 mcg/hr, Last Rate: 75 mcg/hr (08/10/22 0500) phenylephrine, 0-4 mcg/kg/min, Last Rate: Stopped (08/10/22 0119) propofol, 0-50 mcg/kg/min, Last Rate: 30 mcg/kg/min (08/10/22 0500) PRN Meds:. albuterol sodium chloride 0.9% dextrose OR dextrose fentaNYL fentaNYL glucagon sodium chloride 0.9% Vital signs for last 24 hours: Temp: [36.1 ??C (97 ??F)-37.1 ??C (98.8 ??F)] 37 ??C (98.6 ??F) Pulse: [55-118] 84 BP: (75-176)/(46-104) 130/66 Resp: [10-25] 24 SpO2: [92 %-100 %] 100 % Arterial Line BP: (132-157)/(65-78) 144/69 FiO2 (%): [40 %-100 %] 40 % Hemodynamics: MAP (mmHg): [52-122] 82 Pulmonary Support: O2 Therapy: Supplemental oxygen O2 Del Method: Endotracheal tube FiO2 (%): 40 % O2 Flow Rate (L/min): 15 L/min Adult Vent Mode: Volume control/Assist control FiO2 (%): 40 % S RR: 24 PEEP/CPAP/EPAP (cm H2O): 5 cm H20 Intake/Output: Intake/Output Summary (Last 24 hours) at 08/10/2022 0630 Last data filed at 08/10/2022 0615 Gross per 24 hour Intake 4186.8 ml Output 3815 ml Net 371.8 ml Lab/Radiology/Diagnostic Review: Recent Results (from the past 48 hour(s)) COVID-19 Coronavirus RNA Nasopharyngeal Collection Time: 08/09/22 11:12 AM Specimen: Nasopharyngeal Result Value Ref Range COVID-19 RNA Negative Negative Type and screen Collection Time: 08/09/22 8:31 PM Result Value Ref Range Anabelle, indirect Negative ABO Rh B Positive POC Blood Gas and Chemistries, Arterial - Collection Time: 08/09/22 9:33 PM Result Value Ref Range pH, Art POC 7.21 (L) 7.35 - 7.45 pCO2, Art POC 69 (H) 35 - 45 mmHg pO2, Art POC 44 (L) 83 - 108 mmHg Na, POC 139 135 - 145 mmol/L K POC 3.8 3.3 - 4.9 mmol/L Cl, POC 107 97 - 110 mmol/L Ionized Ca, POC 5.07 4.50 - 5.10 mg/dL Glucose, POC 215 (H) 70 - 199 mg/dL Lactate, POC 2.5 (H) 0.7 - 2.2 mmol/L SO2 (godwin) arterial 71 (L) 90 - 95 % Base excess, POC -1.5 mmol/L HCO3, Art POC 23 20 - 30 mmol/L Hct, POC 35.0 (L) 36.3 - 45.3 % O2 Sat, Art POC (Calc) 68 % Total Hb, POC 11.5 (L) 11.9 - 15.5 g/dL POCT glucose Collection Time: 08/09/22 10:51 PM Result Value Ref Range Glucose, POC 173 70 - 199 mg/dL Blood gas, arterial Collection Time: 08/09/22 11:21 PM Result Value Ref Range pH, Art 7.34 (L) 7.35 - 7.45 PCO2, Arterial 44 35 - 45 mmHg PO2, Arterial 181 (H) 83 - 108 mmHg HCO3 Art (Calculated) 24 20 - 30 mmol/L BE, art -2 mmol/L O2 Sat Art (Measured) 100 (H) 90 - 95 % Comprehensive metabolic panel Collection Time: 08/09/22 11:21 PM Result Value Ref Range Sodium 143 135 - 145 mmol/L Potassium, pl 3.8 3.3 - 4.9 mmol/L Chloride 108 97 - 110 mmol/L CO2 25 22 - 32 mmol/L Anion gap 10 2 - 15 mmol/L BUN 9 8 - 25 mg/dL Creatinine 0.64 0.60 - 1.10 mg/dL Glucose 161 70 - 199 mg/dL Calcium 8.4 (L) 8.5 - 10.3 mg/dL Bilirubin, total 0.2 0.1 - 1.2 mg/dL Protein, pl 6.0 (L) 6.5 - 8.5 g/dL Albumin 4.0 3.5 - 5.0 g/dL Alk phos 29 (L) 40 - 130 Units/L ALT 13 7 - 45 Units/L AST 15 10 - 45 Units/L Magnesium Collection Time: 08/09/22 11:21 PM Result Value Ref Range Magnesium 1.9 1.4 - 2.5 mg/dL Phosphorus Collection Time: 08/09/22 11:21 PM Result Value Ref Range Phosphorus, pl 3.1 2.3 - 4.5 mg/dL CBC with auto differential Collection Time: 08/09/22 11:21 PM Result Value Ref Range WBC 8.6 3.8 - 9.9 K/cumm Hgb 10.0 (L) 11.9 - 15.5 g/dL Hct 30.3 (L) 35.6 - 45.5 % Plt 196 150 - 400 K/cumm MPV 11.0 9.1 - 12.3 fL RBC 3.19 (L) 3.90 - 5.20 M/cumm MCV 95.0 81.3 - 96.4 fL MCH 31.3 27.1 - 33.3 pg MCHC 33.0 32.3 - 35.7 g/dL RDW CV 12.1 11.1 - 14.9 % RDW SD 42.6 35.7 - 48.1 fL NRBC abs 0.00 0.00 - 0.01 K/cumm Differential, auto Collection Time: 08/09/22 11:21 PM Result Value Ref Range Neutrophil abs 7.9 (H) 1.7 - 6.5 K/cumm Imm gran abs 0.0 0.0 - 0.1 K/cumm Lymphocyte abs 0.3 (L) 0.8 - 3.3 K/cumm Monocyte abs 0.3 0.2 - 0.8 K/cumm Eosinophil abs 0.0 0.0 - 0.5 K/cumm Basophil abs 0.0 0.0 - 0.1 K/cumm Neutrophil pct 92.3 % Imm gran pct 0.4 % Lymphocyte pct 3.9 % Monocyte pct 3.3 % Eosinophil pct 0.0 % Basophil pct 0.1 % Triglycerides Collection Time: 08/09/22 11:21 PM Result Value Ref Range Triglycerides 39 <=149 mg/dL eGFR Collection Time: 08/09/22 11:21 PM Result Value Ref Range eGFR >90 90 - 130 mL/min/1.73 m2 POCT glucose Collection Time: 08/10/22 3:05 AM Result Value Ref Range Glucose, POC 166 70 - 199 mg/dL Imaging Review: No new imaging Assessment/Plan Principal Problem: Spinal stenosis in cervical region Active Problems: Generalized osteoarthritis Fibromyalgia Depression Muscle spasm Cervical spinal stenosis Osteoporosis GERD (gastroesophageal reflux disease) S/P cervical discectomy NEURO: #Acute Pain: - Fentanyl gtt for pain control; wean as tolerated - APAP q6h and oxycodone PRN once extubated and tolerating PO #Agitation requiring sedation protocol - Propofol gtt; wean for extubation #C3-6 ACDF c/b neck hematoma with airway compromise requiring re-intubation s/p evacuation - Q1h NC - Per ortho, continue c-collar - No HOB restriction - Monitor drain output; strip drain q4h #CECE/MDD - Home aripiprazole 12.5 nightly once tolerating PO - Home duloxetine 60mg BID once tolerating PO CV: #Tachycardia - Follows with human resource analyst; has had full work-up that was unremarkable - Continue home metoprolol 25mg daily once tolerating PO PULM: #ARF 2/2 postop neck hematoma s/p evacuation - AC/VC 14/400/40/5 - BEST this AM - Air leak test - Plan for extubation pending passes BEST and air leak present - Dc dexamethasone pending air leak present GI: Diet: NPO; bedside swallow after extubation; ADAT to regular Bowel regimen: PRN PUD PPx: N/A ENDO: No active issues RENAL: Fluid balance goal: Auto Maintenance IV fluids: D5LR @ 25/h; dc once tolerating PO Electrolyte repletion orders: Per protocol HEME: #ABLA #Postop neck hematoma s/p evacuation Lab Results Component Value Date HGB 10.0 (L) 08/09/2022 - Neck supple without evidence of hematoma re-accumulation - Drain with appropriate sanguinous output - No s/s bleeding - CBC daily ID: No active issues - S/p periop cefazolin and vancomycin MSK: #C3-6 ACDF c/b neck hematoma with airway compromise requiring re-intubation s/p evacuation - Q1h NC - Per ortho, continue c-collar - No HOB restriction - Monitor drain output; strip drain q4h #Fibromyalgia - Pain control per above Intensive Care Unit Standards of Care: Restraints: Soft/mittens on BUE DVT prophylaxis: SCDs; start pharmacologic DVT ppx POD4 Vascular access: PIV x2 Goals of care: Full code Kimmie Barton MD Resident Physician, PGY-1 Otolaryngology - Head & Neck Surgery I have seen and examined this patient on the day of service. I have reviewed and confirmed the history, physical exam, laboratory and radiographic data with the house staff as documented in the ICU resident note. I have reviewed and discussed my treatment plan with the ICU team and other medical/edi consultant staff. Shiva Puente MD [employer]ATION LABORATORY TECHNICIAN [employer]ATION LABORATORY TECHNICIAN [employer]ATION LABORATORY TECHNICIAN * Vivek Erickson MD - 08/10/2022 5:59 AM CST Orthopaedic Spine Daily Progress Note 08/10/2022 Hospital Course 08/09: OR. POC done. Patient decompensated after POC with stridor and neck fullness. Patient underwent emergent evacuation of hematoma at bedside followed by I&D and evacuation of hematoma in OR. Subjective No complaints and pain well controlled. Remains intubated. Hb 10 HV 40 since OR. Ok to extubate whenever per SICU. Hold DVT ppx, keep bundy/drain (strip frequently). OOB/PT/OT as able. Objective Physical Exam: General: Well-developed well-nourished in no acute distress. Follows commands Intubated/sedated. Distal pulses are palpable and rhythm is regular Inspection: Dressing intact, neck soft, non-distended Drain: Holding suction Motor: Muscle Strength Left Right Deltoid 5/5 5/5 Biceps 5/5 5/5 Triceps 5/5 5/5 Wrist extension 5/5 5/5 Wrist flexion 5/5 5/5 Parts Assembler 5/5 5/5 Interosseous of hand 5/5 5/5 Iliopsoas 5/5 5/5 Quadriceps 5/5 5/5 Hamstrings 5/5 5/5 Tibialis anterior 5/5 5/5 Extensor hallicus longus 5/5 5/5 Gastrocsoleus complex 5/5 5/5 Sensation Left upper extremity: sensation intact to light touch in C5 to T1 dermatomes. Right upper extremity: sensation intact to light touch in C5 to T1 dermatomes. Left lower extremity: sensation intact to light touch in L2 to S1 dermatomes. Right lower extremity: sensation intact to light touch in L2 to S1 dermatomes. *responds to touch, limited by intubation Long-tract signs: Positive Mathew's bilaterally No clonus Vascular: Bilateral Upper Extremity: 2+ radial pulse, fingers WWP Bilateral Lower Extremity 2+ pedal pulses, toes WWP with BCR Vitals: 24hr min/max vitals: Temp Min: 36.1 ??C (97 ??F) Max: 37.1 ??C (98.8 ??F) Pulse Min: 55 Max: 118 Resp Min: 10 Max: 25 SpO2 Min: 92 % Max: 100 % MAP (mmHg) Min: 52 Max: 122 Intake and output: I/O last 2 completed shifts: In: 2500 [I.V.:2500] Out: 1750 [Urine:1650; Blood:100] Medications: Scheduled Scheduled Medications Medication Dose Route Frequency acetaminophen (TYLENOL) tablet 1,000 mg 1,000 mg oral Once ceFAZolin (ANCEF) 1 gram/10 mL in sterile water (premix) 1,000 mg 1,000 mg intravenous Q8H chlorhexidine (PERIDEX) 0.12 % solution 15 mL 15 mL mouth/throat BID dexAMETHasone (DECADRON) 4 mg/mL injection 10 mg 10 mg intravenous Q6H SARAHI insulin lispro (HumaLOG, ADMELOG) 100 unit/mL injection 1-3 Units 1-3 Units subcutaneous Q4H SARAHI sodium chloride 0.9% flush 0.5-20 mL 0.5-20 mL intra-catheter Q8H SARAHI As needed PRN Medications Medication Dose Route Frequency Last Admin albuterol 2.5 mg/0.5 mL nebulizer solution 2.5 mg 2.5 mg nebulization Once PRN Carrier Fluids for Secondary Infusion - 0.9% Sodium Chloride 30 mL intravenous PRN dextrose gel in packet 15 g 15 g oral Q15 Min PRN Or dextrose (D10W) 10% bolus 250 mL 250 mL intravenous Q15 Min PRN fentaNYL (SUBLIMAZE) bolus from bag 50 mcg 50 mcg intravenous Q15 Min PRN 50 mcg at 08/10/22 0433 fentaNYL (SUBLIMAZE) bolus from bag 50 mcg 50 mcg intravenous Q15 Min PRN glucagon injection 1 mg 1 mg intramuscular Q30 Min PRN sodium chloride 0.9% flush 0.5-20 mL 0.5-20 mL intra-catheter PRN Labs: Lab Results Component Value Date SODIUM 143 08/09/2022 SODIUM 142 07/20/2022 Lab Results Component Value Date GLUCOSE 166 08/10/2022 CALCIUM 8.4 (L) 08/09/2022 POTASSIUM 3.8 08/09/2022 CO2 25 08/09/2022 CHLORIDE 108 08/09/2022 BUNSER 9 08/09/2022 CREATININE 0.64 08/09/2022 Lab Results Component Value Date WBC 8.6 08/09/2022 WBC 4.5 07/20/2022 WBC 3.4 (L) 10/05/2014 HGB 10.0 (L) 08/09/2022 HGB 11.5 (L) 08/09/2022 HGB 12.8 07/20/2022 HCT 30.3 (L) 08/09/2022 HCT 35.0 (L) 08/09/2022 HCT 39.9 07/20/2022 LABPLAT 196 08/09/2022 LABPLAT 235 07/20/2022 No results found for: INR, PT, APTT No components found for: TROPONIN PT/OT assessment: Assessment/Plan Hospital Day: 2 Annette Santiago is a 62 y.o. year old female who is s/p C3-6 ACDF with emergent OR takeback for I&D and evacuation postoperative hematoma (s/p bedside hematoma evacuation) on 08/09/22. Plan Drains: Maintain, strip frequently (at least q1h) Abx: Vanc/ancef X 24 hours DVT prophylaxis: SCDs and ambulatory Please call with questions. See below for overnight issues. If questions arise on patients at [facility] and the appropriate resident/fellow can't be reached or you are calling overnight, please contact [phone] ([place] 7:30 PM - 6:30 AM - Floor Resident) or [phone] (24 hours/day - Consult Resident) If you are calling about a patient at [facility] please page/call fellow or resident long term care administrator. Note created by Vivek Erickson, MD on 08/10/2022 at 5:59 AM. Cosigned by Olivier Marion MD at 08/14/2022 8:14 AM CALIBRATION LABORATORY TECHNICIAN BRATION LABORATORY TECHNICIAN BRATION LABORATORY TECHNICIAN BRATION LABORATORY TECHNICIAN * Shamar Lema MD - 08/10/2022 3:00 AM CST Ortho Spine Post-Op Note Surgical Procedure: Procedure(s) (LRB): IRRIGATION AND DEBRIDEMENT of neck with Evacution of hematoma (N/A) Subjective Annette A Bowling seen post-operatively in the SICU. Patient is intubated but alert and able to interact with exam . Pain is controlled. Objective Vitals: Most Recent: Vitals: 08/10/22 0500 BP: 105/57 Pulse: 63 Resp: 24 Temp: 36.9 ??C (98.4 ??F) SpO2: 100% Physical Exam: Gen: no acute distress Neuro: A&Ox4 Patient's neck is soft and nondistended. Motor: Muscle Strength Right Left Shoulder abduction (C5) 5/5 5/5 Elbow flexion (C5/6) 5/5 5/5 Elbow extension (C7) 5/5 5/5 Wrist extension (C6) 5/5 5/5 Wrist flexion (C7) 5/5 5/5 Parts Assembler (C8) 5/5 5/5 Interosseous of hand (T1) 5/5 5/5 Iliopsoas (L2/3) 5/5 5/5 Quadriceps (L3/4) 5/5 5/5 Tibialis anterior (L4/5) 5/5 5/5 Extensor hallicus longus (L5) 5/5 5/5 Gastrocsoleus complex (S1) 5/5 5/5 Sensation Left upper extremity: SILT C5 to T1 dermatomes. Right upper extremity: SILT C5 to T1 dermatomes. Left lower extremity: SILT L2 to S1 dermatomes. Right lower extremity: SILT L2 to S1 dermatomes Vascular: Bilateral Upper Extremity: 2+ radial pulse, fingers WWP Bilateral Lower Extremity: 2+ DP pulse, toes WWP Assessment/Plan Patient is recovering appropriately in the early post-operative period. Cosigned by Olivier Marion MD at 08/14/2022 8:17 AM CALIBRATION LABORATORY TECHNICIAN BRATION LABORATORY TECHNICIAN BRATION LABORATORY TECHNICIAN * Shamar Lema MD - 08/09/2022 11:45 PM CST Ortho Spine Post-Op Note Surgical Procedure: Procedure(s) (LRB): IRRIGATION AND DEBRIDEMENT of neck with Evacution of hematoma (N/A) Subjective Annette A Bowling seen post-operatively in the SICU. Patient is intubated and moderately agitated limiting the exam . Patient's condition is stable. Objective Vitals: Most Recent: Vitals: 08/10/22 0500 BP: 105/57 Pulse: 63 Resp: 24 Temp: 36.9 ??C (98.4 ??F) SpO2: 100% Physical Exam: Gen: no acute distress Neuro: A&Ox4 Patient's neck soft and nondistended. Motor: Muscle Strength Right Left Shoulder abduction (C5) Spontaneously moving Spontaneously moving Elbow flexion (C5/6) Spontaneously moving Spontaneously moving Elbow extension (C7) Spontaneously moving Spontaneously moving Wrist extension (C6) Spontaneously moving Spontaneously moving Wrist flexion (C7) Spontaneously moving Spontaneously moving Parts Assembler (C8) Spontaneously moving Spontaneously moving Interosseous of hand (T1) Spontaneously moving Spontaneously moving Iliopsoas (L2/3) Spontaneously moving Spontaneously moving Quadriceps (L3/4) Spontaneously moving Spontaneously moving Tibialis anterior (L4/5) Spontaneously moving Spontaneously moving Extensor hallicus longus (L5) Spontaneously moving Spontaneously moving Gastrocsoleus complex (S1) Spontaneously moving Spontaneously moving Sensation Unable to assess d/t mental status Vascular: Bilateral Upper Extremity: 2+ radial pulse, fingers WWP Bilateral Lower Extremity: 2+ DP pulse, toes WWP Assessment/Plan Patient is recovering appropriately in the early post-operative period. Will re- evaluate patient at3AM for more complete neurologic exam. Cosigned by Olivier Marion MD at 08/14/2022 8:17 AM CALIBRATION LABORATORY TECHNICIAN BRATION LABORATORY TECHNICIAN BRATION LABORATORY TECHNICIAN * Vivek Erickson MD - 08/09/2022 10:25 PM CST Orthopaedic Spine Surgery Update Note Shortly after postop check (at that time patient was moving all extremities and neck was palpated and felt to be soft) called by member of our team/PACU as patient was having stridor and anesthesia was planning emergent intubation. On immediate exam patient's neck was distended and patient was satting in 80s prior to being bagged. Discussion was had with anesthesia provider attempting intubation who stated that they were unable to safely intubate and we both agreed to open the incision at bedside to evacuate the presumed hematoma. The patient would have otherwise been unable to make it to theOR to have this performed in a more sterile fashion. Incision was cleaned and scalpel was used to open the incision using sterile gloves. Hematoma/clot under pressure was evacuated with immediate improvement in patient's vitals, ability to ventilate and ability to intubate. Patient was added on emergently for I&D, evacuation of hematoma, possible revision of instrumentation. Ryan Erickson MD MS Orthopaedic Surgery - Spine Fellow [facility] in [place] Cosigned by Olivier Marion MD at 08/14/2022 8:14 AM CALIBRATION LABORATORY TECHNICIAN BRATION LABORATORY TECHNICIAN BRATION LABORATORY TECHNICIAN * Vivek Erickson MD - 08/09/2022 6:36 PM CST Orthopaedic Spine Daily Progress Note 08/09/2022 Hospital Course 08/09: OR. POC done. Subjective No complaints and pain well controlled. POC done in PACU. Doing well. Objective Physical Exam: General: Well-developed well-nourished in no acute distress. Alert and oriented ??3. Normal respirations without dyspnea with speaking. Distal pulses are palpable and rhythm is regular Inspection: Dressing intact Drain: Holding suction Motor: Muscle Strength Left Right Deltoid 5/5 5/5 Biceps 5/5 5/5 Triceps 5/5 5/5 Wrist extension 5/5 5/5 Wrist flexion 5/5 5/5 Parts Assembler 5/5 5/5 Interosseous of hand 5/5 5/5 Iliopsoas 5/5 5/5 Quadriceps 5/5 5/5 Hamstrings 5/5 5/5 Tibialis anterior 5/5 5/5 Extensor hallicus longus 5/5 5/5 Gastrocsoleus complex 5/5 5/5 Sensation Left upper extremity: sensation intact to light touch in C5 to T1 dermatomes. Right upper extremity: sensation intact to light touch in C5 to T1 dermatomes. Left lower extremity: sensation intact to light touch in L2 to S1 dermatomes. Right lower extremity: sensation intact to light touch in L2 to S1 dermatomes. Long-tract signs: Positive Mathew's bilaterally No clonus Vascular: Bilateral Upper Extremity: 2+ radial pulse, fingers WWP Bilateral Lower Extremity 2+ pedal pulses, toes WWP with BCR Vitals: 24hr min/max vitals: Temp Min: 36.1 ??C (97 ??F) Max: 37.1 ??C (98.8 ??F) Pulse Min: 69 Max: 80 Resp Min: 10 Max: 17 SpO2 Min: 92 % Max: 100 % MAP (mmHg) Min: 87 Max: 95 Intake and output: No intake/output data recorded. Medications: Scheduled Scheduled Medications Medication Dose Route Frequency acetaminophen (TYLENOL) tablet 1,000 mg 1,000 mg oral Once As needed PRN Medications Medication Dose Route Frequency Last Admin diphenhydrAMINE (BENADRYL) injection 12.5 mg 12.5 mg intravenous Q15 Min PRN HYDROmorphone (DILAUDID) injection 0.5 mg 0.5 mg intravenous Q10 Min PRN HYDROmorphone (DILAUDID) injection 0.5 mg 0.5 mg intravenous Q10 Min PRN naloxone (NARCAN) 0.4 mg/mL injection 0.04-0.4 mg 0.04-0.4 mg intravenous Once PRN ondansetron (ZOFRAN) injection 4 mg 4 mg intravenous Once PRN prochlorperazine (COMPAZINE) injection 5 mg 5 mg intravenous Once PRN Labs: Lab Results Component Value Date SODIUM 142 07/20/2022 Lab Results Component Value Date GLUCOSE 93 07/20/2022 CALCIUM 9.3 07/20/2022 POTASSIUM 3.8 07/20/2022 CO2 28 07/20/2022 CHLORIDE 104 07/20/2022 BUNSER 15 07/20/2022 CREATININE 0.73 07/20/2022 Lab Results Component Value Date WBC 4.5 07/20/2022 WBC 3.4 (L) 10/05/2014 HGB 12.8 07/20/2022 HGB 14.5 10/05/2014 HCT 39.9 07/20/2022 LABPLAT 235 07/20/2022 No results found for: INR, PT, APTT No components found for: TROPONIN PT/OT assessment: Assessment/Plan Hospital Day: 1 Annette Santiago is a 62 y.o. year old female who is s/p C3-6 ACDF on 08/09/22. Plan Drains: Maintain Abx: Vanc/ancef X 24 hours DVT prophylaxis: SCDs and ambulatory Please call with questions. See below for overnight issues. If questions arise on patients at [facility] and the appropriate resident/fellow can't be reached or you are calling overnight, please contact [phone] ([facility] 7:30 PM - 6:30 AM - Floor Resident) or [phone] (24 hours/day - Consult Resident) If you are calling about a patient at [facility] please page/call fellow or resident long term care administrator. Note created by Vivek Erickson MD on 08/09/2022 at 6:36 PM. Cosigned by Olivier Marion MD at 08/14/2022 8:14 AM CALIBRATION LABORATORY TECHNICIAN BRATION LABORATORY TECHNICIAN BRATION LABORATORY TECHNICIAN documented in this encounter H&P Notes * Luli Bond MD - 08/09/2022 10:11 PM CST ICU History and Physical Team: Red PM Subjective 62 y/o F presented for anterior C3-C6 ACDF 08/09. Postop course complicated by cervical hematoma evacuated in PACU by NSGY and intubated w/ difficulty airway (significant swelling; required fiberopticintubation thru LMA). HPI: 62 y/o F with a history of chronic back pain, GERD, fibromyalgia, presented for anterior C3-C6 ACD. Postop course complicated by cervical hematoma evacuated in PACU by NSGY and intubated w/ difficulty airway (significant swelling; required fiberoptic intubation thru LMA). The patient returnedto the operating room immediately w/ neurosurgery and underwent irrigation and debridement of the hematoma site w/ drain placement and closure. She arrives to the ICU intubated, sedated. Past Medical History: Diagnosis Date Anxiety Arthritis Back pain Chronic pain Chronic pain Depression Fibromyalgia Fibromyalgia, primary GERD (gastroesophageal reflux disease) Low back pain Low back pain Migraines Neck pain Osteoporosis Personal history of other diseases of the musculoskeletal system and connective tissue History of osteoporosis - (Added by DMITRY Conv) Tachycardia Urinary tract infection Past Surgical History: Procedure Laterality Date CATARACT EXTRACTION right eye only HYSTEROSCOPY W/ ENDOMETRIAL ABLATION MD UNLISTED LAPAROSCOPY PX INTESTINE XCP RECTUM Intestinal Laparoscopy - (Added by DMITRY Conv) SPINE SURGERY upcoming w/Dr. Marion Medications Prior to Admission Medication Sig Dispense Refill Last Dose acetaminophen ER (TYLENOL) 650 mg 8 hr tablet Take 1,300 mg by mouth 2 (two) times a day as needed 08/08/2022 alendronate (FOSAMAX) 70 mg tablet Take 70 mg by mouth once a week Sunday Past ALPHA LIPOIC ACID ORAL Take 550 mg by mouth every morning Past Week ARIPiprazole (ABILIFY) 15 mg tablet Take 7.5 mg by mouth nightly Total 12.5 ayt HS 08/08/2022 ARIPiprazole (ABILIFY) 5 mg tablet Take 5 mg by mouth nightly Total 12.5 mg 08/08/2022 ascorbic acid (VITAMIN C) 1,000 mg tablet Take 1,000 mg by mouth every morning Past Week baclofen (LIORESAL) 10 mg tablet Take 2 tablets (20 mg total) by mouth 4 (four) times a day Takes 1-2 tabs QID (Patient taking differently: Take 20 mg by mouth 4 (four) times a day Takes 1-2 tabs QID) 240 tablet 11 08/09/2022 CALCIUM CARBONATE-VITAMIN D3 ORAL Take 1 tablet by mouth 2 (two) times a day Calcium Carbonate 1,200 mg with Vitamin D 1,000 international units take 2 daily. Past Week cannabidiol, CBD, (EPIDIOLEX) 100 mg/mL solution Take 5 mg/kg by mouth 2 (two) times a day as needed CBD Past Month cetirizine 10 mg capsule Take 10 mg by mouth nightly 08/08/[address] (CYMBALTA) 60 mg capsule Take 60 mg by mouth 2 (two) times a day 08/09/2022 estradiol-norethindrone (ACTIVELLA) 1-0.5 mg per tablet Take 1 tablet by mouth nightly 08/08/2022 HYDROcodone-acetaminophen (NORCO) 7.5-325 mg per tablet Take 1 tablet by mouth 3 (three) times a day As need for pain 90 tablet 0 08/09/2022 magnesium oxide (MAG-OX) 500 mg (301.6 mg elemental) tablet Take 500 mg by mouth 2 (two) times a day Past Week methocarbamoL (ROBAXIN) 500 mg tablet Take 2 tablets (1,000 mg total) by mouth 4 (four) times a day(Patient taking differently: Take 1,000 mg by mouth 4 (four) times a day) 240 tablet 0 08/09/2022 metoprolol XL (TOPROL-XL) 25 mg extended release tablet Take 25 mg by mouth daily 08/08/2022 montelukast (SINGULAIR) 10 mg tablet Take 10 mg by mouth nightly 08/08/2022 mupirocin (BACTROBAN) 2 % ointment Apply a small amount to the inside of each nostril using a cleanQ-tip for each nostril twice a day for 5 days prior to surgery. 22 g 0 08/08/2022 omega 0-qzj-yuo-fish oil 1,000 mg (120 mg-180 mg) capsule Take 1 capsule by mouth every morning Past Week ruxolitinib (Opzelura) 1.5 % cream Apply 1 application topically 2 (two) times a week Mon and Fri. 08/08/2022 turmeric root extract 500 mg capsule Take 1,350 mg by mouth every morning Past Month zolpidem (AMBIEN) 10 mg tablet Take 10 mg by mouth nightly 08/08/2022 famotidine (PEPCID) 10 mg tablet Take 1 tablet (10 mg total) by mouth 2 (two) times a day (Patient taking differently: Take 10 mg by mouth nightly) 60 tablet 11 meloxicam (MOBIC) 7.5 mg tablet Take 1 tablet (7.5 mg total) by mouth daily (Patient taking differently: Take 7.5 mg by mouth nightly) 90 tablet 3 [] methocarbamoL (ROBAXIN) 500 mg tablet Take 2 tablets (1,000 mg total) by mouth 4 (four) times a day for 14 days 112 tablet 0 Allergies Allergen Reactions Decongestant Capsule Other (See comments) bladder spasms with decongestants Hay Fever And Allergy Relief Other (See comments) STUFFY HEAD, ACHINESS Social History Tobacco Use Smoking status: Former Packs/day: 1.00 Years: 5.00 Pack years: 5.00 Types: Cigarettes Start date: 11/27/1978 Quit date: 09/28/1983 Years since quittin.8 Smokeless tobacco: Never Substance and Sexual Activity Drug use: Not Currently Types: Marijuana Comment: CBD Oil Sexual activity: Not Currently Partners: Male control/protection: Post-menopausal Alcohol Use: Not At Risk Frequency of Alcohol Consumption: Never Average Number of Drinks: Patient does not drink Frequency of Binge Drinking: Not on file Family History Problem Relation Age of Onset [...] Depression Mother's Brother Anesthesia problems Neg Hx Review of Systems: Review of Systems Unable to perform ROS: Intubated Vitals: Most Recent : Vitals: 08/09/222039 BP: 91/50 Pulse: 62 Resp: 22 Temp: SpO2: 100% Hemodynamics: MAP (mmHg): [52-122] 59 Pulmonary Support: O2 Therapy: Supplemental oxygen O2 Del Method: Endotracheal tube FiO2 (%): (S) 60 % O2 Flow Rate (L/min): 15 L/min Adult Vent Mode: Volume control/Assist control FiO2 (%): 60 % S RR: 22 PEEP/CPAP/EPAP (cm H2O): 5 cm H20 Intake/Output: Intake/Output Summary (Last 24 hours) at 08/09/20221 Last data filed at 08/09/2022 2155 Gross per 24 hour Intake 2500 ml Output 2375 ml Net 125 ml Objective Physical exam: Physical Exam Constitutional: Comments: Intubated, sedated HENT: Head: Normocephalic and atraumatic. Right Ear: External ear normal. Left Ear: External ear normal. Nose: Nose normal. Mouth/Throat: Mouth: Mucous membranes are moist. Eyes: Conjunctiva/sclera: Conjunctivae normal. Pupils: Pupils are equal, round, and reactive to light. Neck: Comments: Cervical collar in place Surgical incision appears clean, dry, and intact, w/ drain in place Cardiovascular: Rate and Rhythm: Normal rate and regular rhythm. Pulmonary: Effort: Pulmonary effort is normal. No respiratory distress. Breath sounds: Normal breath sounds. Abdominal: General: Abdomen is flat. Bowel sounds are normal. There is no distension. Genitourinary: Comments: Bundy Musculoskeletal: General: No swelling or deformity. Skin: General: Skin is warm and dry. Capillary Refill: Capillary refill takes less than 2 seconds. Neurological: General: No focal deficit present. Deep Tendon Reflexes: Reflexes normal. Lab/Radiology/Diagnostic Review: Recent Results (from the past 48 hour(s)) COVID-19 Coronavirus RNA Nasopharyngeal Collection Time: 08/09/22 11:12 AM Specimen: Nasopharyngeal Result Value Ref Range COVID-19 RNA Negative Negative Type and screen Collection Time: 08/09/22 8:31 PM Result Value Ref Range Anabelle, indirect Negative ABO Rh B Positive POC Blood Gas and Chemistries, Arterial - Collection Time: 08/09/22 9:33 PM Result Value Ref Range pH, Art POC 7.21 (L) 7.35 - 7.45 pCO2, Art POC 69 (H) 35 - 45 mmHg pO2, Art POC 44 (L) 83 - 108 mmHg Na, POC 139 135 - 145 mmol/L K POC 3.8 3.3 - 4.9 mmol/L Cl, POC 107 97 - 110 mmol/L Ionized Ca, POC 5.07 4.50 - 5.10 mg/dL Glucose, POC 215 (H) 70 - 199 mg/dL Lactate, POC 2.5 (H) 0.7 - 2.2 mmol/L SO2 (godwin) arterial 71 (L) 90 - 95 % Base excess, POC -1.5 mmol/L HCO3, Art POC 23 20 - 30 mmol/L Hct, POC 35.0 (L) 36.3 - 45.3 % O2 Sat, Art POC (Calc) 68 % Total Hb, POC 11.5 (L) 11.9 - 15.5 g/dL No results found. Assessment/Plan Principal Problem: Spinal stenosis in cervical region Active Problems: Generalized osteoarthritis Fibromyalgia Depression Muscle spasm Cervical spinal stenosis Osteoporosis GERD (gastroesophageal reflux disease) S/P cervical discectomy Plan of Care: NEURO: #Acute pain - Fentanyl gtt #Agitation requiring sedation protocol - Propofol gtt - RASS goal 0 to -2 while intubated #C3-C6 ACDF - q1h NC - C-collar - No HOB restrictions - Monitor drain output CV: #Hypotension - In setting of sedation - Phenylephrine gtt - MAP > 65 PULM: #Acute respiratory failure - Secondary to mass effect from expanding neck hematoma - Intubated, AC/VC 40/14/400/5 - Wean as able, BEST trial in AM - Pulmonary hygiene. Elevated HOB. GI: Diet: NPO Bowel regimen: PRN PUD PPx: N/A (anticipate extubation) ENDO: ICU SSI RENAL: Fluid balance goal: Even Maintenance IV fluids: Dr SKELTON at 24/hr Electrolyte repletion orders: PRN - Daily BMP, Mg, P Lab Results Component Value Date CREATININE 0.73 07/20/2022 HEME: #Acute blood loss anemia -No signs/symptoms of continued bleeding, no indication for transfusion, continue to monitor closely - No AC until POD 3 Lab Results Component Value Date HGB 11.5 (L) 08/09/2022 ID: Lab Results Component Value Date WBC 4.5 07/20/2022 Antibiotics: - Perioperative vancomycin and cefazolin Cultures: N/A MSK: C-collar. No HOB restrictions. PT/OT when able Intensive Care Unit Standards of Care: Restraints: BUE (soft limbs + mittens) DVT prophylaxis: SCDs Vascular access: PIV x 3 Goals of care: Full code Luli Jailyn Pentecost, MD 10:11 PM 08/09/22 Cosigned by Joe Trimble MD at 08/10/2022 7:11 PM CALIBRATION LABORATORY TECHNICIAN BRATION LABORATORY TECHNICIAN BRATION LABORATORY TECHNICIAN Associated attestation - Joe Trimble MD - 08/10/2022 7:11 PM CALIBRATION LABORATORY TECHNICIAN I have personally seen and examined this patient on the date of service as documented on the Resident note and have reviewed and confirmed the history, physical exam, laboratory,radiographic data, assessment and plan as documented by the resident. Joe Trimble MD Section of Acute and Critical Care Surgery * Vivek Erickson MD - 08/09/2022 1:00 PM CST Images from the original note were not included. ORTHO SPINE PREOPERATIVE H&P HPI: Annette Santiago is a 62 y.o. female presenting for surgery. There have been no relevant or significant changes since her last note. Please see below PAST MEDICAL HISTORY: Annette Santiago has a past medical history of Anxiety, Arthritis, Back pain, Chronic pain, Chronic pain, Depression, Fibromyalgia, Fibromyalgia, primary, GERD (gastroesophageal reflux disease), Lowback pain, Low back pain, Migraines, Neck pain, Osteoporosis, Personal history of other diseases ofthe musculoskeletal system and connective tissue, Tachycardia, and Urinary tract infection. HOME MEDICATIONS: Annette Santiago has a current medication list which includes the following long-term medication(s): baclofen, cannabidiol (cbd), diltiazem sr, estradiol- norethindrone, famotidine, hydrocodone-acetaminophen, meloxicam, montelukast, and zolpidem. SURGICAL HISTORY: Annette Santiago has a past surgical history that includes pr unlisted laparoscopy px intestine xcp rectum; Hysteroscopy w/ endometrial ablation; Cataract extraction (right eye only); and Spine surgery (upcoming w/Dr. Marion). ALLERGIES: Annette Santiago is allergic to decongestant capsule and hay fever and allergy relief. SOCIAL HISTORY: Annette Santiago reports that she quit smoking about 38 years ago. Her smoking use included cigarettes. She started smoking about 43 years ago. She has a 5.00 pack-year smoking history. She has never used smokeless tobacco. She reports that she does not currently use drugs after having used the following drugs: Marijuana. Patient denies consuming alcoholic drinks. FAMILY HISTORY: Annette Santiago family history includes Allergy (severe) in her son; Arthritis in her mother, mother's brother, and mother's sister; COPD in her mother; Celiac disease in her son; Depression in hermother and mother's brother; Heart disease in her maternal grandfather; Heart failure in her mother; Hypertension in her mother; Kidney disease in her father; Stroke in her father. She indicated that her mother is . She indicated that her father is alive. She indicated that the status of her maternal grandfather is unknown. She indicated that the status of her mother's sister is unknown. She indicated that the status of her mother's brother is unknown. She indicated that the status of her neg hx is unknown. REVIEW OF SYSTEMS: All ROS reviewed and were negative with exception to what is listed below or in the HPI. Prior Note: Established patient visit History of Present Illness: 07/20/2022 Since last seen she is seen Dr. Yu for a thoracolumbar scoliosis time he would like for her to continue to monitor this she is also having some mild neck pain she noticed maybe some worsening of her hand writing with fine motor skills she is on a fall any falls the last seen she is taking hydrocodone 7.5 mg 3 times a day mostly he feels as for her lower back pain 07/06/2022 Annette Santiago is a 62 y.o. female who is here for follow-up after obtaining MRI of her C-spine. Patient has tried heat, narcotics, baclofen, robaxin, and CBD cream which she uses mainly for her lumbar scoliosis for this problem which has given moderate relief. She feels their symptoms is unchanged but reports minimal concern regarding her symptoms at baseline Since we saw her last she has started to notice some issues with handwritting. Unsteadiness of gait: No Bowel or bladder symptoms/incontinence: No Prior spine surgery: No Prior Epidural Injections: Yes, years ago Prior Physical Therapy: Yes (for lumbar spine) Prior animal care worker: No Prior Accupuncture: No Past Medical History: has a past medical history of Anxiety, Arthritis, Back pain, Chronic pain, Chronic pain, Depression, Fibromyalgia, Fibromyalgia, primary, GERD (gastroesophageal reflux disease), Low back pain, Low back pain, Migraines, Neck pain, Osteoporosis, Personal history of other diseases of the musculoskeletal system and connective tissue, Tachycardia, and Urinary tract infection. Allergy: Decongestant capsule and Hay fever and allergy relief Past Surgical History: Surgical History Past Surgical History: Procedure Laterality Date CATARACT EXTRACTION right eye only HYSTEROSCOPY W/ ENDOMETRIAL ABLATION MD UNLISTED LAPAROSCOPY PROC,INTESTINE Intestinal Laparoscopy - (Added by Conv) SPINE SURGERY upcoming w/Dr. Marion Social History: Social History Social History Tobacco Use Smoking status: Former Packs/day: 1.00 Years: 5.00 Pack years: 5.00 Types: Cigarettes Start date: 11/27/1978 Quit date: 09/28/1983 Years since quittin.8 Smokeless tobacco: Never Substance and Sexual Activity Drug use: Not Currently Types: Marijuana Comment: CBD Oil Sexual activity: Not Currently Partners: Male control/protection: Post-menopausal Alcohol Use: Not At Risk Frequency of Alcohol Consumption: Never Average Number of Drinks: Patient does not drink Frequency of Binge Drinking: Not on file Family History: Family History Problem Relation Age of Onset Hypertension Mother Arthritis Mother Heart failure Mother Family history of congestive heart failure - (Added by Conv) COPD Mother Depression Mother Kidney disease Father Family history of kidney disease - (Added by Conv) Stroke Father Family history of cerebrovascular accident - (Added by Conv) Heart disease Maternal Grandfather Celiac disease Son Family history of celiac disease - (Added by Conv) Allergy (severe) Son Arthritis Mother's Sister Arthritis Mother's Brother Depression Mother's Brother Anesthesia problems Neg Hx Medication: Current Medications Current Outpatient Medications Medication Sig Dispense Refill acetaminophen ER (TYLENOL) 650 mg 8 hr tablet Take 1,300 mg by mouth 2 (two) times a day as needed alendronate (FOSAMAX) 70 mg tablet Take 70 mg by mouth once a week Sunday ALPHA LIPOIC ACID ORAL Take 550 mg by mouth every morning ARIPiprazole (ABILIFY) 15 mg tablet Take 7.5 mg by mouth nightly Total 12.5 ayt HS ARIPiprazole (ABILIFY) 5 mg tablet Take 5 mg by mouth nightly Total 12.5 mg ascorbic acid (VITAMIN C) 1,000 mg tablet Take 1,000 mg by mouth every morning baclofen (LIORESAL) 10 mg tablet Take 2 tablets (20 mg total) by mouth 4 (four) times a day Takes 1-2 tabs QID (Patient taking differently: Take 20 mg by mouth 4 (four) times a day Takes 1-2 tabs QID) 240 tablet 11 CALCIUM CARBONATE-VITAMIN D3 ORAL Take 1 tablet by mouth 2 (two) times a day Calcium Carbonate 1,200 mg with Vitamin D 1,000 international units take 2 daily. cannabidiol, CBD, (EPIDIOLEX) 100 mg/mL solution Take 5 mg/kg by mouth 2 (two) times a day as needed CBD cetirizine 10 mg capsule Take 10 mg by mouth nightly dilTIAZem SR (CARDIZEM SR) 60 mg 12 hr capsule Take 60 mg by mouth 2 (two) times a day DULoxetine DR (CYMBALTA) 60 mg capsule Take 60 mg by mouth 2 (two) times a day estradiol-norethindrone (ACTIVELLA) 1-0.5 mg per tablet Take 1 tablet by mouth nightly famotidine (PEPCID) 10 mg tablet Take 1 tablet (10 mg total) by mouth 2 (two) times a day (Patient taking differently: Take 10 mg by mouth nightly) 60 tablet 11 HYDROcodone-acetaminophen (NORCO) 7.5-325 mg per tablet Take 1 tablet by mouth 3 (three) times a day As need for pain 90 tablet 0 magnesium oxide (MAG-OX) 500 mg (301.6 mg elemental) tablet Take 500 mg by mouth 2 (two) times a day meloxicam (MOBIC) 7.5 mg tablet Take 1 tablet (7.5 mg total) by mouth daily (Patient taking differently: Take 7.5 mg by mouth nightly) 90 tablet 3 methocarbamoL (ROBAXIN) 500 mg tablet Take 2 tablets (1,000 mg total) by mouth 4 (four) times a day(Patient taking differently: Take 1,000 mg by mouth 4 (four) times a day) 240 tablet 0 methocarbamoL (ROBAXIN) 500 mg tablet Take 2 tablets (1,000 mg total) by mouth 4 (four) times a dayfor 14 days 112 tablet 0 montelukast (SINGULAIR) 10 mg tablet Take 10 mg by mouth nightly mupirocin (BACTROBAN) 2 % ointment Apply a small amount to the inside of each nostril using a cleanQ-tip for each nostril twice a day for 5 days prior to surgery. 22 g 0 omega 0-vci-lbj-fish oil 1,000 mg (120 mg-180 mg) capsule Take 1 capsule by mouth every morning ruxolitinib (Opzelura) 1.5 % cream Apply 1 application topically 2 (two) times a week Mon and Fri. turmeric root extract 500 mg capsule Take 1,350 mg by mouth every morning zolpidem (AMBIEN) 10 mg tablet Take 10 mg by mouth nightly No current facility-administered medications for this visit. Physical Examination: There were no vitals taken for this visit. Constitutional: No apparent distress . Alert and oriented x 3. Afebrile to touch. Respirations normal and non labored. No pain with simulated truncal rotation or axial head compression. Cervical ROM: Flexion:45 degrees Extension: 60 degrees Rotation: 60 degrees to the right and 60 degrees to the left without pain Lateral bend: 45 degrees to the right and 45 degrees to the left without pain Skin: No prior spine incision present. Tenderness: Cervical: mild tenderness over C7 Thoracic: no tenderness Lumbar: no tenderness Greater trochanteric bursa:no tenderness Posterior superior iliac spine (PSIS):no tenderness Other points of tenderness: None Shoulder ROM: There is not bilateral shoulder pain with AROM and PROM with flexion, extension, abduction, internal and external rotation of the shoulder Neurological: Orientation: To person, place and time CN II-XII: Grossly intact Motor: Deltoid Biceps Triceps WE [employer] Right 5 5 5 5 5 5 Left 5 5 5 5 5 5 IP Quadriceps Hamstrings TA EHL GS Right 5 5 5 5 5 5 Left 5 5 5 5 5 5 Sensory: reduced light touch sensation, location: left C6-C8 DTR: B BR T Patella Achilles Right 3/3 3/4 3/4 2/4 2/4 Left 3/4 3/4 3/4 2/4 2/4 Spurling Sign: Normal Bilaterally Babinski's Sign: Negative Bilaterally Mathew's Sign: Positive on left Clonus: Negative bilateral Tandem Gait mild positive Rhomberg negative Radiology: Previous imaging reviewed independently Conventional Radiographs: AP lateral flexion extension oblique cervical radiographs were taken 05/09/2022 at [facility]. I personally reviewed these films which demonstrated significant degenerative spondylosis at C3-C6 with loss of cervical lordosis, anterolisthesis of C3 on C4. MRI: Cervical MRI performed on 05/30/2022 at [facility] was personally reviewed by me and redemonstrates a cervical spine as moderate spinal canal stenosis noted at C3-C4 and C4-C5. There is thinning of the cord and myelomalacia at C3-C4 I personally reviewed the images. PROMIS PROMIS PROMIS Bank V1.0 Anxiety: 46.7 PROMIS Bank V1.0 Depression: 48.1 PROMIS Bank V1.1 Pain Interference: 66.9 PROMIS Bank V2.0 Physical Function: 26.9 Assessment Annette Santiago is a 62 y.o. female whose history, physical examination, assessment and plan are compatible with cervical myelopathy with cervical stenosis I discussed the diagnosis, prognosis, natural history and treatment options with the patient in detail. I discussed the non-operative and operative treatment options in detail with the patient and discussed the risks, benefits, and alternatives to three options: 1. Continued non-operative management 2. Interventional modalities such as epidural injections 3. Surgical intervention Plan Discussed with Ms. Santiago the natural history of myelopathy and that it is a progressive disorder.The only way to stop the progression is to undergo surgery to remove the compression. If she decides to monitor the disorder, she is aware of the progression and that there is a risk that her functional status will not return to where is was prior to the progression. For that reason, I recommend Ms. Santiago to undergo surgery. After hearing the risk and benefits and alternative treatment to surgery she would like to proceed with surgery. She will undergo surgery on 08/09/2022 which would be ACDFC3-C4 C4-C5 C5-C6 I went over the benefits, alternatives perioperative course and risks including but not limited to Surgical Risks: there is a chance of infection, a chance of nerve damage (numbness, tingling, weakness, pain, bowel or bladder changes, paralysis), a chance of a tear in the spinal dura which will need to be repaired, a chance of the screws loosening or the instrumentation breaking or the bones fracturing or the bones not fusing with the hardware (non-union), a 35% chance that swallowing would feel different due to a change in the swallowing mechanics, but a good chance that the surgery will improve the radicular pain. Other risks and benefits involved with surgery including, but not limited to hoarseness, vocal cord injury, esophageal injury, nonhealing, wear and tear above and/or below, need for more surgery, infection, anesthesia risk, CSF leak, nerve damage, nerve palsy, paralysis, pain, vascular injury, bleeding, blood clot, heart attack, stroke, and were discussed in detail. After hearing this she signed a consent forms. I will move forward with surgery on 08/09/2022 she will see CPAP for medical evaluation she is aware of the thyroid lesion that was seen and will follow up with her primary care physician for next steps in consideration of how to evaluate this in more detail. I will see her the day of surgery if she is any problems questions concerns before then she will give us a call or follow up sooner The patients questions were answered in detail ____ Olivier Marion MD LABS: Lab Results Component Value Date WBC 4.5 07/20/2022 HGB 12.8 07/20/2022 HCT 39.9 07/20/2022 MCV 96.4 07/20/2022 LABPLAT 235 07/20/2022 Lab Results Component Value Date GLUCOSE 93 07/20/2022 CALCIUM 9.3 07/20/2022 SODIUM 142 07/20/2022 POTASSIUM 3.8 07/20/2022 CO2 28 07/20/2022 CHLORIDE 104 07/20/2022 BUNSER 15 07/20/2022 CREATININE 0.73 07/20/2022 Lab Results Component Value Date HGBA1C 5.1 07/20/2022 25HYDROVITD 54 07/20/2022 PLAN: Proceed with surgery as planned. Risks were discussed in detail for the planned procedure. Specifically, we discussed the risk for bleeding, infection, and damage to surrounding structures including the spinal cord and/or nerve roots, & other structures near the surgical field, which could require rapid intervention. It was explained that these are low risk but not zero percent risk. If one of these complications occur it could result in paralysis, weakness, or even and this was explained in detail. We discussed withher risk of bleeding and that we would transfuse blood products should they be needed. We also explained that there are other potential risks not related specifically to the surgery including pneumoni a or other unforeseen complications as a result of anesthesia and being hospitalized. Additionally we discussed at length that a possible outcome is that be there is no improvement in symptoms. Annette has verbalized complete understanding of these potential risks and has elected to proceed with surgery as planned. I believe adequate informed consent was obtained today in clinic and she seems to understand the risks and potential benefits of undergoing surgery and has elected to proceed. Vivek Erickson MD Surgical Spine Fellow [employer] TECHNICIAN documented in this encounter Procedure Notes * Shiva Puente MD - 08/11/2022 6:40 AM CSTAssociated Order(s): Critical Care Post-Procedure Diagnose(s): Cervical spinal stenosis Critical Care Performed by: Shiva Puente MD Authorized by: Shiva Puente MD CRITICAL CARE: Team: SICU RED Shift: AM Level of Billing: Subsequent Hospital Visit Level 3 My time spent with this patient was 40 minutes: Critical Provider Statement: I have seen and examined the patient on this day of service. I have reviewed and confirmed the history, physical exam, laboratory, and radiographic data as documented in the ICU note. I have reviewed and discussed my treatment plan with the patient's team and other medical/edi consultant staff. This time was in addition to and separate from care provided by other practitioners on this day of service. Acute pain/acute postoperative pain S/p neck hematoma evacuation S/p spine surgery This time was spent by me doing the following: Acute pain control and Frequent neurologic exams Active and frequent reassessment of respiratory status and oxygen requirements and Incentive spirometry, pulmonary toilet Active and frequent monitoring of intake/output and volumen status Spinal immobilization I spent time reviewing and interpreting data from bedside monitors, laboratory results, and imaging, I spent time discussing the management of this critically ill patient with consultants and the medical staff and I spent time documenting in the medical record [employer]ICIAN * oJe Trimble MD - 08/10/2022 7:29 PM CSTAssociated Order(s): Critical Care Post-Procedure Diagnose(s): Cervical spinal stenosis Critical Care Performed by: Joe Trimble MD Authorized by: Joe Trimble MD CRITICAL CARE: Team: SICU RED Shift: PM Level of Billing: Critical Care My time spent with this patient was 30 minutes: Critical Provider Statement: I have seen and examined the patient on this day of service. I have reviewed and confirmed the history, physical exam, laboratory and radiologic data as documented in thesigned ICU note. I have reviewed and discussed my treatment plan with the ICU team and other medical/edi consultant staff, making frequent assessments and decisions regarding this patient's complex medical care. Critical Care time was exclusive of time spent performing separately billed procedures, treating other patients, and teaching. This time was in addition to and separate from critical care provided by other practitioners in my group on this day of service. Critical Care was necessary to treat or prevent imminent or life-threatening deterioration of the following conditions: Acute pain/acute postoperative pain and Agitation requiring sedation Acute respiratory failure following procedure/surgery This time was spent by me doing the following: Acute pain control, Active titration of continuous sedation and Frequent neurologic exams Active and frequent reassessment of respiratory status and oxygen requirements, Invasive ventilatormanagement, reassessment, and titration and Acute airway management Active and frequent monitoring of intake/output and volumen status Empiric broad coverage antibiotics Spinal immobilization I spent time reviewing and interpreting data from bedside monitors, laboratory results, and imaging, I spent time discussing the management of this critically ill patient with consultants and the medical staff and I spent time documenting in the medical record [employer] * Shiva Puente MD - 08/10/2022 8:36 AM CSTAssociated Order(s): Critical Care Post-Procedure Diagnose(s): Cervical spinal stenosis Critical Care Performed by: Shiva Puente MD Authorized by: Shiva Puente MD CRITICAL CARE: Team: SICU RED Shift: AM Level of Billing: Critical Care My time spent with this patient was 50 minutes: Critical Provider Statement: I have seen and examined the patient on this day of service. I have reviewed and confirmed the history, physical exam, laboratory and radiologic data as documented in thesigned ICU note. I have reviewed and discussed my treatment plan with the ICU team and other medical/edi consultant staff, making frequent assessments and decisions regarding this patient's complex medical care. Critical Care time was exclusive of time spent performing separately billed procedures, treating other patients, and teaching. This time was in addition to and separate from critical care provided by other practitioners in my group on this day of service. Critical Care was necessary to treat or prevent imminent or life-threatening deterioration of the following conditions: Acute pain/acute postoperative pain and Agitation requiring sedation Acute respiratory failure following procedure/surgery This time was spent by me doing the following: Acute pain control, Active titration of continuous sedation and Frequent neurologic exams Active and frequent reassessment of respiratory status and oxygen requirements, Invasive ventilatormanagement, reassessment, and titration and Acute airway management Active and frequent monitoring of intake/output and volumen status Empiric broad coverage antibiotics Spinal immobilization I spent time reviewing and interpreting data from bedside monitors, laboratory results, and imaging, I spent time discussing the management of this critically ill patient with consultants and the medical staff and I spent time documenting in the medical record [employer] documented in this encounter Nursing Notes * Sandrita Robles RN - 08/12/2022 4:33 PM CST Discharge instructions reviewed with patient and her daughter. They both voice understanding, discharge per WC home with glassess, cellphone and telemedicine physician. [employer] * Loni Lee RN - 08/09/2022 8:50 PM CST Patient emergently returned to OR at this time with surgical and anesthesia team. [employer]ICIAN documented in this encounter Miscellaneous Notes * Plan of Care - Sandrita Robles RN - 08/12/2022 4:02 PM CST Goals: Clinical Goals for the Shift: x-rays, possible discharge home or transfer to floor Summary: preparing patient for discharge. Patient ambulating in [place] with walker and minimal assist. Okay to discharge per SICU Red Fellow. Patient's daughter staying with patient at her house upon discharge. Patient and daughter voice understanding of discharge. [employer]CHNICIAN * Plan of Care - Fadia Gallo RN - 08/11/2022 10:22 PM [employer]ICIAN Goals: Clinical Goals for the Shift: q4h neuro checks, pain control, sleep hygiene, TTF Summary: Problem: Health Behavior: Goal: Understanding of discharge needs will improve Outcome: Progressing Problem: Lack of Knowledge: Goal: Ability to state ways to decrease the risk of falls will improve Outcome: Progressing Problem: Safety: Goal: Will remain free from falls Outcome: Progressing Goal: Will remain free from injury from falls Outcome: Progressing Problem: Activity: Goal: Mobility will improve Outcome: Progressing Problem: Lack of Knowledge: Goal: Understanding of ways to prevent future skin breakdown will improve Outcome: Progressing Goal: Ability to identify appropriate dietary choices will improve Outcome: Progressing Problem: Nutritional: Goal: Dietary intake will improve Outcome: Progressing Goal: Ability to maintain a balanced intake and output will improve Outcome: Progressing Problem: Skin Integrity: Goal: Risk for impaired skin integrity will decrease Outcome: Progressing Goal: Ability to demonstrate warm and dry skin will improve Outcome: Progressing Goal: Circulation will improve to fullest extent possible Outcome: Progressing Problem: Lack of Knowledge: Goal: Ability to develop a pain control plan will improve Outcome: Progressing Goal: Ability to identify pain intensity on a pain scale and rate it consistently will improve Outcome: Progressing Goal: Ability to notify healthcare provider of pain before it becomes unmanageable or unbearable will improve Outcome: Progressing Problem: Medication: Goal: Satisfaction with pain management regimen will improve Outcome: Progressing Problem: Sensory: Goal: Ability to identify factors that increase the pain will improve Outcome: Progressing Goal: Pain level will decrease Outcome: Progressing Problem: Activity: Goal: Ability to return to normal activity level will improve Outcome: Progressing Problem: Lack of Knowledge: Goal: Knowledge of the prescribed therapeutic regimen will improve Outcome: Progressing Problem: Coping: Goal: Ability to cope will improve Outcome: Progressing Problem: Health Behavior: Goal: Identification of resources available to assist in meeting health care needs will improve Outcome: Progressing Problem: Sensory: Goal: Pain level will decrease Outcome: Progressing Problem: Safety: Goal: Will remain free from falls and injury in home environment Outcome: Defer [employer]CHNICIAN * Plan of Care - Jazmin Page RN - 08/11/2022 5:14 PM CST Problem: Health Behavior: Goal: Understanding of discharge needs will improve Outcome: Progressing Problem: Lack of Knowledge: Goal: Ability to state ways to decrease the risk of falls will improve Outcome: Progressing Problem: Safety: Goal: Will remain free from falls Outcome: Progressing Goal: Will remain free from injury from falls Outcome: Progressing Goal: Will remain free from falls and injury in home environment Outcome: Progressing Problem: Activity: Goal: Mobility will improve Outcome: Progressing Problem: Lack of Knowledge: Goal: Understanding of ways to prevent future skin breakdown will improve Outcome: Progressing Goal: Ability to identify appropriate dietary choices will improve Outcome: Progressing Problem: Nutritional: Goal: Dietary intake will improve Outcome: Progressing Goal: Ability to maintain a balanced intake and output will improve Outcome: Progressing Problem: Skin Integrity: Goal: Risk for impaired skin integrity will decrease Outcome: Progressing Goal: Ability to demonstrate warm and dry skin will improve Outcome: Progressing Goal: Circulation will improve to fullest extent possible Outcome: Progressing Problem: Lack of Knowledge: Goal: Ability to develop a pain control plan will improve Outcome: Progressing Goal: Ability to identify pain intensity on a pain scale and rate it consistently will improve Outcome: Progressing Goal: Ability to notify healthcare provider of pain before it becomes unmanageable or unbearable will improve Outcome: Progressing Problem: Medication: Goal: Satisfaction with pain management regimen will improve Outcome: Progressing Problem: Sensory: Goal: Ability to identify factors that increase the pain will improve Outcome: Progressing Goal: Pain level will decrease Outcome: Progressing Problem: Activity: Goal: Ability to return to normal activity level will improve Outcome: Progressing Problem: Lack of Knowledge: Goal: Knowledge of the prescribed therapeutic regimen will improve Outcome: Progressing Problem: Coping: Goal: Ability to cope will improve Outcome: Progressing Problem: Health Behavior: Goal: Identification of resources available to assist in meeting health care needs will improve Outcome: Progressing Problem: Sensory: Goal: Pain level will decrease Outcome: Progressing Goals: Clinical Goals for the Shift: Q4 neuro checks, pain control, oobtc, VS Q4 [employer] TECHNICIAN * Plan of Care - Fadia Gallo RN - 08/11/2022 2:22 AM [employer] TECHNICIAN Goals: Clinical Goals for the Shift: q4h neuro checks, pain control, sleep hygiene Summary: Problem: Health Behavior: Goal: Understanding of discharge needs will improve Outcome: Progressing Problem: Lack of Knowledge: Goal: Ability to state ways to decrease the risk of falls will improve Outcome: Progressing Problem: Safety: Goal: Will remain free from falls Outcome: Progressing Goal: Will remain free from injury from falls Outcome: Progressing Problem: Activity: Goal: Mobility will improve Outcome: Progressing Problem: Lack of Knowledge: Goal: Understanding of ways to prevent future skin breakdown will improve Outcome: Progressing Goal: Ability to identify appropriate dietary choices will improve Outcome: Progressing Problem: Nutritional: Goal: Ability to maintain a balanced intake and output will improve Outcome: Progressing Problem: Skin Integrity: Goal: Risk for impaired skin integrity will decrease Outcome: Progressing Goal: Ability to demonstrate warm and dry skin will improve Outcome: Progressing Goal: Circulation will improve to fullest extent possible Outcome: Progressing Problem: Lack of Knowledge: Goal: Ability to develop a pain control plan will improve Outcome: Progressing Goal: Ability to identify pain intensity on a pain scale and rate it consistently will improve Outcome: Progressing Goal: Ability to notify healthcare provider of pain before it becomes unmanageable or unbearable will improve Outcome: Progressing Problem: Medication: Goal: Satisfaction with pain management regimen will improve Outcome: Progressing Problem: Sensory: Goal: Ability to identify factors that increase the pain will improve Outcome: Progressing Goal: Pain level will decrease Outcome: Progressing Problem: Activity: Goal: Ability to return to normal activity level will improve Outcome: Progressing Problem: Lack of Knowledge: Goal: Knowledge of the prescribed therapeutic regimen will improve Outcome: Progressing Problem: Coping: Goal: Ability to cope will improve Outcome: Progressing Problem: Health Behavior: Goal: Identification of resources available to assist in meeting health care needs will improve Outcome: Progressing Problem: Sensory: Goal: Pain level will decrease Outcome: Progressing Problem: Nutritional: Goal: Dietary intake will improve Outcome: Not Progressing Problem: Safety: Goal: Will remain free from falls and injury in home environment Outcome: Defer Problem: Lack of Knowledge: Goal: Knowledge of restraints will improve Description: INTERVENTIONS: 1. Educate patient/caregiver on restraints Outcome: Completed Problem: Safety - Medical Restraint Goal: Remains free of injury from restraints (Restraint for Interference with Central Sterilization Technician) Description: INTERVENTIONS: 1. Identify and document the criteria for restraint 2. Determine that other, less restrictive measures have been tried or would not be effective beforeapplying the restraint 3. Evaluate the patient's condition at the time of restraint application and continue to monitor patient's condition 4. Inform patient/family regarding the reason for restraint 5. Q2H: Monitor safety checks including skin, circulation, sensory,respiratory, psychosocial status, comfort, nutrition and hydration 6. Ensure safety/first aid measures are in place (i.e. Quick release, suction, crash cart, etc.) Outcome: Completed Goal: Free from restraint(s) (Restraint for Interference with Central Sterilization Technician) Description: INTERVENTIONS: 1. Q2H and PRN: Assess and document the continuing need for restraints 2. Q24H: Continued use of restraint requires LIP to perform face to face examination and written order (ICU restraint orders are not reviewed Q24H only at the time of initiation) 3. Identify and implement measures to help patient regain control Outcome: Completed BRATION LABORATORY TECHNICIAN * Plan of Care - Gabriella Camejo RN - 08/10/2022 1:21 PM CST Problem: Health Behavior: Goal: Understanding of discharge needs will improve Outcome: Progressing Problem: Lack of Knowledge: Goal: Ability to state ways to decrease the risk of falls will improve Outcome: Progressing Problem: Safety: Goal: Will remain free from falls Outcome: Progressing Goal: Will remain free from injury from falls Outcome: Progressing Goal: Will remain free from falls and injury in home environment Outcome: Progressing Problem: Lack of Knowledge: Goal: Knowledge of restraints will improve Description: INTERVENTIONS: 1. Educate patient/caregiver on restraints Outcome: Progressing Problem: Safety - Medical Restraint Goal: Remains free of injury from restraints (Restraint for Interference with Central Sterilization Technician) Description: INTERVENTIONS: 1. Identify and document the criteria for restraint 2. Determine that other, less restrictive measures have been tried or would not be effective beforeapplying the restraint 3. Evaluate the patient's condition at the time of restraint application and continue to monitor patient's condition 4. Inform patient/family regarding the reason for restraint 5. Q2H: Monitor safety checks including skin, circulation, sensory,respiratory, psychosocial status, comfort, nutrition and hydration 6. Ensure safety/first aid measures are in place (i.e. Quick release, suction, crash cart, etc.) Outcome: Progressing Goal: Free from restraint(s) (Restraint for Interference with Central Sterilization Technician) Description: INTERVENTIONS: 1. Q2H and PRN: Assess and document the continuing need for restraints 2. Q24H: Continued use of restraint requires LIP to perform face to face examination and written order (ICU restraint orders are not reviewed Q24H only at the time of initiation) 3. Identify and implement measures to help patient regain control Outcome: Progressing Problem: Activity: Goal: Mobility will improve Outcome: Progressing Problem: Lack of Knowledge: Goal: Understanding of ways to prevent future skin breakdown will improve Outcome: Progressing Goal: Ability to identify appropriate dietary choices will improve Outcome: Progressing Problem: Nutritional: Goal: Dietary intake will improve Outcome: Progressing Goal: Ability to maintain a balanced intake and output will improve Outcome: Progressing Problem: Skin Integrity: Goal: Risk for impaired skin integrity will decrease Outcome: Progressing Goal: Ability to demonstrate warm and dry skin will improve Outcome: Progressing Goal: Circulation will improve to fullest extent possible Outcome: Progressing Goals: Clinical Goals for the Shift: VSS, pain control, extubate Summary: Patient participating in care plan goals. Patient verbalized understanding of education and is progressing towards goals. BRATION LABORATORY TECHNICIAN * Plan of Care - Bela Hdez RRT - 08/10/2022 12:30 PM CST Cuff leak test performed prior to extubation as requested by MD. The patient passed their cuff leaktest. Plan - Extubate the patient as soon as the medical team is ready BEST WEAN SAFETY SCREEN for (BEST): PASS - Proceed with BEST (No exclusion Criteria Met). BEST OUTCOME: PASS - RSBI: < 100 RSBI = 12 . PURSUE EXTUBATION: YES - Evaluate Patient for Extubation. PLAN: - Patient Passed BEST Wean and Was Extubated at 1238. Continue to Monitor Patient's Respiratory Status and Intervene as Necessary. BRATION LABORATORY TECHNICIAN * Plan of Care - Demond Keith RRT - 08/10/2022 6:42 AM CST BEST WEAN SAFETY SCREEN for (BEST): FAIL - MD wants to BEST patient on Day shift. . BEST OUTCOME: FAIL - BEST on day shift . PURSUE EXTUBATION: NO - BEST on day shift due to difficult airway . PLAN: - Due to Safety Screen Failure, Maintain Current Settings and Continue to Monitor the Patient. BEST on day shift due to difficult airway. BRATION LABORATORY TECHNICIAN * Plan of Care - Reanna Howard RN - 08/10/2022 5:37 AM CST Goals: Clinical Goals for the Shift: VSS, labs, pain control, wean to extubate if appropriate Summary: Problem: Health Behavior: Goal: Understanding of discharge needs will improve Outcome: Progressing Problem: Lack of Knowledge: Goal: Ability to state ways to decrease the risk of falls will improve Outcome: Progressing Problem: Safety: Goal: Will remain free from falls Outcome: Progressing Goal: Will remain free from injury from falls Outcome: Progressing Goal: Will remain free from falls and injury in home environment Outcome: Progressing Problem: Lack of Knowledge: Goal: Knowledge of restraints will improve Description: INTERVENTIONS: 1. Educate patient/caregiver on restraints Outcome: Progressing Problem: Safety - Medical Restraint Goal: Remains free of injury from restraints (Restraint for Interference with Central Sterilization Technician) Description: INTERVENTIONS: 1. Identify and document the criteria for restraint 2. Determine that other, less restrictive measures have been tried or would not be effective beforeapplying the restraint 3. Evaluate the patient's condition at the time of restraint application and continue to monitor patient's condition 4. Inform patient/family regarding the reason for restraint 5. Q2H: Monitor safety checks including skin, circulation, sensory,respiratory, psychosocial status, comfort, nutrition and hydration 6. Ensure safety/first aid measures are in place (i.e. Quick release, suction, crash cart, etc.) Outcome: Progressing Goal: Free from restraint(s) (Restraint for Interference with Central Sterilization Technician) Description: INTERVENTIONS: 1. Q2H and PRN: Assess and document the continuing need for restraints 2. Q24H: Continued use of restraint requires LIP to perform face to face examination and written order (ICU restraint orders are not reviewed Q24H only at the time of initiation) 3. Identify and implement measures to help patient regain control Outcome: Progressing Problem: Activity: Goal: Mobility will improve Outcome: Progressing Problem: Lack of Knowledge: Goal: Understanding of ways to prevent future skin breakdown will improve Outcome: Progressing Goal: Ability to identify appropriate dietary choices will improve Outcome: Progressing Problem: Nutritional: Goal: Dietary intake will improve Outcome: Progressing Goal: Ability to maintain a balanced intake and output will improve Outcome: Progressing Problem: Skin Integrity: Goal: Risk for impaired skin integrity will decrease Outcome: Progressing Goal: Ability to demonstrate warm and dry skin will improve Outcome: Progressing Goal: Circulation will improve to fullest extent possible Outcome: Progressing BRATION LABORATORY TECHNICIAN * Op Note - Olivier Marion MD - 08/09/2022 9:13 PM CST OPERATIVE NOTE Annette Santiago : 1960 Procedure: Procedure(s): IRRIGATION AND DEBRIDEMENT of neck with Evacution of hematoma Indications: Ms Santiago is a 62 year old female who earlier today underwent anterior cervical decompression and fusion C3-C6 without any issues initially she was doing well in the PACU area. Then our team was called to the bedside to evaluate for having dyspnea. She was evaluated and it did appear that the front of her neck was tense with concern of developing hematoma. Anesthesia attempted to intubate the patient at the bedside difficulty visualizing the airway due to the mass effect of the hematoma therefore it was decided at the bedside after prepping the neck to open the incision at bedside and evacuate hematoma. Clots of blood were removed at that time and anesthesia was able to get a successful intubation. She then returned to the operating room for evaluation for any apparent bleeder and irrigated the wound and re-closure Pre-Operative Diagnosis: Post-operative Hematoma Dyspnea Post-Operative Diagnosis: Post-operative Hematoma Dyspnea Surgeon: Olivier Marion MD Assistants: Surgeon(s) and Role: * Olivier Marion MD - Primary * Mateusz Genao MD - Resident - Assisting * Vivek Erickson MD - Resident - Assisting Anesthesia: General ASA Class: IV Specimens: * No specimens in log * Implants: Nothing was implanted during the procedure Findings Brought back in the operating room we assess the area for any evidence of any vessel that was open that was causing the bleeding we are not able to identify any particular vessel open there was some oozing coming from the longest colli which we coagulated with the bipolar. Estimated Blood Loss: 75 cc Blood/Blood Products Transfused: None PROCEDURE IN DETAIL: The patient was brought into the operating room intubated. After successful appropriate lines, and leads being placed, the patient was then placed supine onto the operative table. All bony prominences were well padded and placed in correct position. A time-out was performed to identify the correct patient, procedure to be performed, and appropriate perioperative prophylactic antibiotics were given the patient. The patient's skin was prepped with alcohol, and DuraPrep we over the remaining portion of the incision would doing so there was some clots it was still present there we evacuated them as well got down on the disc space placed to retract we then this stage we then irrigated the wound with 3 L of normal saline fluid after irrigated the wound out completely we then early assess for any evidence of any bleeding vessels. We did not identify any particular bleeder we did identify some oozing from the longus colli instrumented tissue distal to the plate we then used a bipolar to coagulate these areas. We then went around the plate as well and coagulate any areas of longus colli thatwere oozing. Once this was done we irrigated the wound out as well copiously. We then took out the retractor and let the wounds that are for about 5 minutes we then retracted over did not see any blood filling into the area or any oozing into this area we then placed FloSeal along the longus colli and around the plate and then placed Surgicel in this area as well once again we let the wounds they5 minutes see if there was any oozing bleeding. We then retracted that area not identify any But then placed a 15 [place] deep drain. then we closed with 3-0 Monocryl in interrupted fashion. The platysma muscle with 3-0 Monocryl of the subcuticular then 4-0 Monocryl for subcuticular skin closure. Skin glue was then applied to the wound. The opsite dressing was applied. The patient was then placed supine on the hospital bed. I was decide this point that the patient would remain intubated sedation was lightened we will get exam and she was all extremities without difficulty she was then sedated and taken to the ICU I, Dr. Marion, was present and scrubbed for the entire procedure This complex surgery required a skilled first responder. Please note that Dr Vivek Erickson MD was scrubbed and present for the entire procedure as well. He assisted during the case in its entirety including exposure, irrigation of the wound and evacuation of hematoma , and wound closure. His help was necessary to help expedite the surgery. This made the operation much safer. In addition help wasnecessary as no qualified resident help was available to assist with this case Olivier Marion MD BRATION LABORATORY TECHNICIAN * Brief Op Note - Vivek Erickson MD - 08/09/2022 9:13 PM CALIBRATION LABORATORY TECHNICIAN Operative Progress Note Surgical Team: Surgeon(s) and Role: * Olivier Marion MD - Primary * Vivek Erickson MD - Resident - Assisting Anesthesiologist: Grayson Granados MD PhD; Piedad Poe MD Salvage Determiner: Gildardo Tovar MD Programming Instructor: Archana Cordova RN Technology Teacher: Darlene Kline, RT Scrub Relief: Hua Villa; Lisa Li RN Scrub: Trevin Hatch RN Programming Instructor Second: Ann Marie Wolf RN DATE OF SURGERY : 08/09/2022 Preoperative Diagnosis: Pre-op Diagnosis * Cervical spinal stenosis [M48.02] Postoperative Diagnosis: Post-op Diagnosis * Cervical spinal stenosis [M48.02] Procedure(s): Procedure(s) (LRB): IRRIGATION AND DEBRIDEMENT of neck with Evacution of hematoma (N/A) Operative Findings: Neck hematoma s/p C3-6 ACDF the same day; s/p I&D and evacuation of neck hematoma Estimated Blood Loss: 50 cc Intraoperative Fluids: See anesthesia note for fluids and urine output Specimens: No specimen collected in procedure Implants: Nothing was implanted during the procedure Blood/Blood Products Transfused: 0 mls Complications: None Condition on Discharge from the operating room was stable Vivek Erickson MD Date: 08/09/2022 Time: 10:24 PM TEACHING ATTESTATION : I was present and directly participated in the entire procedure (including opening and closing). Cosigned by Olivier Marion MD at 08/14/2022 8:14 AM CALIBRATION LABORATORY TECHNICIAN BRATION LABORATORY TECHNICIAN BRATION LABORATORY TECHNICIAN * Perioperative Nursing Note - Loni Lee RN - 08/09/2022 8:03 PM CST 5- The patient was awake and alert, started having some respiratory distress/ acute changes. Under her c-collar was more swollen to touch and her voice was sounding tight. Surgery team notified byphone and pre owned sales consultant called to bedside- nonrebreather mask applied and the patient maintained Sp02 >95%. 1935mg 8mg Decadron given IVP emergently at bedside per Dr. White. 1939 Surgery team at bedside for evaluation as bedside re-intubation attempted by Dr. White and Dr. Francisco. Propofol and Succynilcholine given for sedation. Surgery opened up surgical side at bedside for decompression. 1954- Daughter updated of patient's status and need for re-intubation and emergent take back to OR.Surgery team is to talk to family in person before OR. 1999- Mutiple attendings at bedside for re-intubation. Patient now with 6.0 ETT 23 @ teeth. VSS as charted. 99% Sp02. Respiratory at bedside to manage vent. Will prep patient for take back to OR. 2014 Dr. Marion consented the patient's daughter in the waiting room for emergent take back to OR for exploration/ revision. 2012- 32mcg (16mcg +16mcg at a time) of Norepinephrine given at bedside by Dr. Granados 30mg Rocuronium - 2014 Calcium chloride 1g- given by Dr. Granados at bedside. BRATION LABORATORY TECHNICIAN BRATION LABORATORY TECHNICIAN * Op Note - Olivier Marion MD - 08/09/2022 2:10 PM CST OPERATIVE NOTE Annette Santiago : 1960 Procedure: Anterior cervical decompression with removal of posterior osteophytes C3-C4 Anterior cervical decompression with removal of posterior osteophytes C4-C5 Anterior cervical decompression with removal of posterior osteophytes C5-C6 Anterior cervical fusion with allograft C3-C6 Anterior cervical instrumentation with Biomet Maxan Plate C3-C6 Indications: Ms Santiago is a 62 who I have seen for neck pain as well as some imbalance as well as issues with manual dexterity he had signs and symptoms of myelopathy at imaging that demonstrated she had severe cervical stenosis at C3-C4 and C4-C5 with moderate stenosis at C5-C6 with evidence of myelomalacia in the spinal cord at these levels. Therefore we discussed the natural history of myelopathy went over the risks benefits alternative treatments in the perioperative course of surgery. After hearing this she decided to move forward with the above-noted procedure Pre-Operative Diagnosis: Cervical spinal stenosis Cervical myelopathy Cervical myelomalacia Cervical spondylosis Cervical kyphosis Post-Operative Diagnosis: Cervical spinal stenosis Cervical myelopathy Cervical myelomalacia Cervical spondylosis Cervical kyphosis Surgeon: Olivier Marion MD Assistants: Surgeon(s) and Role: * Olivier Marion MD - Primary * * Vivek Erickson MD - Assisting Surgeon Anesthesia: General ASA Class: III Specimens: * No specimens in log * Implants: Implant Name Type Inv. Item Serial No. News Copy Editor Lot No. LRB No. Used Action MUSCULOSKELETAL TRANSPLANT [id number] FROZEN SPINE 7D LORDOTIC TRAPEZOID SPACER ALLOGRAFT [id number] -[id number] - [id number] MUSCULOSKELETAL TRANSPLANT [id number] Frozen Spine 7d Lordotic Trapezoid Spacer Allograft [id number] Musculoskeletal Transplant N/A 1 Implanted MUSCULOSKELETAL TRANSPLANT [id number] FROZEN SPINE 7D LORDOTIC TRAPEZOID SPACER ALLOGRAFT [id number] -[id number] - [id number] MUSCULOSKELETAL TRANSPLANT [id number] Frozen Spine 7d Lordotic Trapezoid Spacer Allograft [id number] Musculoskeletal Transplant N/A 1 Implanted MUSCULOSKELETAL TRANSPLANT [id number] FROZEN SPINE 7D LORDOTIC TRAPEZOID SPACER ALLOGRAFT [id number] -[id number] - [id number] MUSCULOSKELETAL TRANSPLANT [id number] Frozen Spine 7d Lordotic Trapezoid Spacer Allograft [id number] Musculoskeletal Transplant N/A 1 Implanted [employer] 4MM 16MM FIX SCREW BONE [id number] - [id number] [employer] 4mm 16mm Fix Screw Bone [id number] [employer] N/A 8 Implanted [employer] C-LIVIA MAXAN 51MM LEVEL 3 FIX SPINE CERVICAL ANTERIOR PLATE BONE [id number] - [id number] [employer] C-livia Maxan 51mm Level 3 Fix Spine Cervical Anterior Plate Bone [id number] [employer] N/A 1 Implanted Estimated Blood Loss: 100 mL Blood/Blood Products Transfused: None PROCEDURE IN DETAIL: The patient was brought into the operating room. After successful intubation, appropriate lines, and leads being placed, the patient was then placed supine onto the operative table. All bony prominences were well padded and placed in correct position. Pre and post extension neuro monitored data wasobtained a not change with positioning. A time-out was performed to identify the correct patient, procedure to be performed, and appropriate perioperative prophylactic antibiotics were given the patient. The patient's skin was prepped with alcohol, ChloraPrep and draped in the sterile fashion. Using bony landmarks, a skin incision was made over the C5 vertebral body left hand side in transverse fa shion . The we was used and dissect through the platysma muscle. Sternocleidomastoid was identifiedand then using a finger to bluntly develop plane was developed just medial to this with through thefascial plane. A finger was used to feel the carotid pulse laterally then to go immediately bluntly dissect down to the vertebral column. Once onto the vertebral column, we optained radiograph to identify the correct levels. Once identifying the correct levels, we did subperiosteal dissection of the longus coli out over the uncovertebral joints from C3-C6 after having exposure to those levels we removed the anterior osteophytes We then used a 14 mm Mobile pin placed in the C3 vertebral body and the C4 and placed distraction across this area. We used a #15 blade to cut the annulus fibrosus. Pituitary rongeur to remove the disk space and we used a alena to remove the cartilaginous endplate of C3 and C4. This level was very spondylitic and we removed the osteophytes as well back to the posterior osteophytes. Once back to the posterior osteophytes, a alena was used to continue to remove the osteophytes back to the PLL. Onceback to the PLL, nerve hook was used to dissect through the PLL and then used various Kerrisons were used to remove the PLL, We then felt out in the foramen and identified compression out there we used various sized Kerrison to remove that compression. Both the nerve hook lastly now into the various above and was adequately decompressed. We then measured our CCACF spacer with trial when measured for 6 mm graft. We then tamped a mm at CCACF allograft spacer into the C3-C4 disk space. We then removed the Mobile pin out of the C3 level and placed into the C6 level we then placed distraction across this area next we turned our attention to our decompression of the C4-C5 level We then used a #15 blade to cut the annulus fibrosus and then used pituitary rongeur to remove the annulus fibrosus of the remaining portion of the disk. This level as well as various spondylitic andwe removed the osteophytes the bur. Then remove the cartilage endplates as well as remaining disc disk back to the posterior osteophytes. The Posterior osteophytes were removed with the alena back to the PLL. Once back to the PLL, we used a nerve hook to dissect through the PLL. Used various Kerrison to remove a portion of the PLL . Then felt with a nerve hook under the vertebral bodies down to the foramen everything was well decompressed Next we turned our attention to our decompression at C5-C6 We used a #15 blade to cut the annulus fibrosus. Pituitary rongeur to remove the disk space and we used a alena to remove the cartilaginous endplate of C5 and C6 and removed the main portion of the disk back to the posterior osteophytes. Once back to the posterior osteophytes, a alena was used to continue to remove the osteophytes back to the PLL. Once back to the PLL, nerve hook was used to dissect through the PLL and then used various Kerrisons were used to remove the PLL. We then felt out in the foramen and identified compression outthere we used various sized Kerrison to remove that compression. Then felt with the nerve hook out i nto the foramen and underneath the vertebral bodies and everything was well decompressed. We then measured our CCACF spacer with the C4-C5 level and the C5- C6 level with trial when measured 7 mm graft. Levels We then tamped a 7 mm at CCACF allograft spacer into the C4-C5 and C5-C6 disk space. Next the cast were pins were removed bone wax placed in the holes. We used the [place] rongeur to remove any further osteophytes are present with a measured our plate. Measured a 51 mm plate and placed 24.0 x 16 fixed screws at each of the levels. We tightened within the plate We obtained AP and lateral radiographs. the grafts were in good position as well as the plate . We then irrigated the wound out copiously. We obtained hemostasis with Floseal, Surgicel. Once the wound was dry we then placed a drain and then we closed with 3-0 Monocryl in interrupted fashion. The platysma muscle with 3-0 Monocryl of the subcuticular then 4-0 Monocryl for subcuticular skin closure. Skin glue was then applied to the wound. The optic dressing was applied. The patient was then placed supine on the hospital bed. Prior to extubation, the patient moved all extremities without difficulty. The patient was then extubated transferred to the PACU. I, Dr. Marion, was present and scrubbed for the entire procedure This complex surgery required a skilled first responder. Please note that Dr Vivek Erickson MD was scrubbed and present for the entire procedure as well. He assisted during the case in its entirety including exposure,decompression of the neural elements and spinal cord, removal of the disc, placement of the graft and instrumentation , and wound closure. His help was necessary to help expedite thesurgery. This made the operation much safer. In addition help was necessary as no qualified resident help was available to assist with this case Olivier Marion MD BRATION LABORATORY TECHNICIAN * Brief Op Note - Vivek Erickson MD - 08/09/2022 2:10 PM CALIBRATION LABORATORY TECHNICIAN Operative Progress Note Surgical Team: Surgeon(s) and Role: * Olivier Marion MD - Primary * Wale Dumont MD - Resident - Assisting * Vivek Erickson MD - Fellow Anesthesiologist: Kalina White MD Salvage Determiner: Blue Ng DO Programming Instructor: Kong Law RN Scrub Relief: Familia Marion ST Scrub: Sheri Robles ST Coloring Room Worker: [place]; Gutierrez Herrera [place] Display Associate: Matilde Hauser NP Orientee Scrub: Coleen Lawton RN Orientee Programming Instructor: Judith Marin RN; Reanna Ramirez RN DATE OF SURGERY : 08/09/2022 Preoperative Diagnosis: Pre-op Diagnosis * Spinal stenosis in cervical region [M48.02] Postoperative Diagnosis: Post-op Diagnosis * Spinal stenosis in cervical region [M48.02] Procedure(s): Procedure(s) (LRB): FUSION CERVICAL ANTERIOR DISCECTOMY WITH INSTRUMENTATION- C3-C6 instrumented anterior cervical discectomy and fusion with structural allograft (N/A) SPINAL CORD MONITORING (N/A) Operative Findings: Cervical spondylotic myelopathy; 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 Item Serial No. News Copy Editor Lot No. LRB No. Used Action MUSCULOSKELETAL TRANSPLANT [id number] FROZEN SPINE 7D LORDOTIC TRAPEZOID SPACER ALLOGRAFT [id number] -[id number] - [id number] MUSCULOSKELETAL TRANSPLANT [id number] Frozen Spine 7d Lordotic Trapezoid Spacer Allograft [id number] Musculoskeletal Transplant N/A 1 Implanted MUSCULOSKELETAL TRANSPLANT [id number] FROZEN SPINE 7D LORDOTIC TRAPEZOID SPACER ALLOGRAFT [id number] -[id number] - [id number] MUSCULOSKELETAL TRANSPLANT [id number] Frozen Spine 7d Lordotic Trapezoid Spacer Allograft [id number] Musculoskeletal Transplant N/A 1 Implanted MUSCULOSKELETAL TRANSPLANT [id number] FROZEN SPINE 7D LORDOTIC TRAPEZOID SPACER ALLOGRAFT [id number] -[id number] - [id number] MUSCULOSKELETAL TRANSPLANT [id number] Frozen Spine 7d Lordotic Trapezoid Spacer Allograft [id number] Musculoskeletal Transplant N/A 1 Implanted [employer] 4MM 16MM FIX SCREW BONE [id number] - [id number] [employer] 4mm 16mm Fix Screw Bone [id number] [employer] N/A 8 Implanted [employer] C-LIVIA MAXAN 51MM LEVEL 3 FIX SPINE CERVICAL ANTERIOR PLATE BONE [id number] - [id number] [employer] C-livia Maxan 51mm Level 3 Fix Spine Cervical Anterior Plate Bone [id number] [employer] N/A 1 Implanted Blood/Blood Products Transfused: 0 mls Complications: None Condition on Discharge from the operating room was stable Vivek Erickson MD Date: 08/09/2022 Time: 5:52 PM TEACHING ATTESTATION : I was present and directly participated in the entire procedure (including opening and closing). Cosigned by Olivier Marion MD at 08/14/2022 8:14 AM CALIBRATION LABORATORY TECHNICIAN BRATION LABORATORY TECHNICIAN BRATION LABORATORY TECHNICIAN documented in this encounter Plan of Treatment Not on file documented as of this encounter Goals Goal Patient Goal Type Associated Problems Recent Progress Patient-Stated? Author CCM Chronic Pain Care Plan Chronic Care Management Improving( 10:05 AM CALIBRATION LABORATORY TECHNICIAN) No Bessy Mancuso, RN Note: Problem: Chronic Pain Goals: 1. Minimize further functional decline 2. Maximize quality of life 3. Control pain Strategies: - Activity/exercise program recommendation - Conservative stepwise pain medicine strategy with multi-disciplinary approach - Recommend healthy lifestyle strategies and compensatory methods as needed documented as of this encounter Procedures Procedure Name Priority Date/Time Associated Diagnosis Comments XR SPINE CERVICAL 2 OR 3 VIEWS IP Routine 08/12/2022 10:50 AM CALIBRATION LABORATORY TECHNICIAN EGFR STAT 08/12/2022 8:43 AM CALIBRATION LABORATORY TECHNICIAN CBC WITHOUT DIFFERENTIAL STAT 08/12/2022 8:43 AM CALIBRATION LABORATORY TECHNICIAN BASIC METABOLIC PANEL STAT 08/12/2022 8:43 AM CALIBRATION LABORATORY TECHNICIAN EGFR Routine 08/11/2022 8:49 PM CALIBRATION LABORATORY TECHNICIAN DIFFERENTIAL AUTO Routine 08/11/2022 8:4 9 PM CALIBRATION LABORATORY TECHNICIAN CBC WITH AUTO DIFFERENTIAL Routine 08/11/2022 8:49 PM CALIBRATION LABORATORY TECHNICIAN PHOSPHORUS Routine 08/11/2022 8:49 PM CALIBRATION LABORATORY TECHNICIAN MAGNESIUM Routine 08/11/2022 8:49 PM CALIBRATION LABORATORY TECHNICIAN COMPREHENSIVE METABOLIC PANEL Routine 08/11/2022 8:49 PM CALIBRATION LABORATORY TECHNICIAN CRITICAL CARE Routine 08/11/2022 6:40 AM CALIBRATION LABORATORY TECHNICIAN Cervical spinal stenosis POCT GLUCOSE DEVICE Routine 08/10/2022 1 1:03 PM CALIBRATION LABORATORY TECHNICIAN EGFR Routine 08/10/2022 8:27 PM CALIBRATION LABORATORY TECHNICIAN DIFFERENTIAL AUTO Routine 08/10/2022 8:2 7 PM CALIBRATION LABORATORY TECHNICIAN CBC WITH AUTO DIFFERENTIAL Routine 08/10/2022 8:27 PM CALIBRATION LABORATORY TECHNICIAN PHOSPHORUS Routine 08/10/2022 8:27 PM CALIBRATION LABORATORY TECHNICIAN MAGNESIUM Routine 08/10/2022 8:27 PM CALIBRATION LABORATORY TECHNICIAN COMPREHENSIVE METABOLIC PANEL Routine 08/10/2022 8:27 PM CALIBRATION LABORATORY TECHNICIAN CRITICAL CARE Routine 08/10/2022 7:29 PM CALIBRATION LABORATORY TECHNICIAN Cervical spinal stenosis POCT GLUCOSE DEVICE Routine 08/10/2022 7 :15 PM CALIBRATION LABORATORY TECHNICIAN POCT GLUCOSE DEVICE Routine 08/10/2022 3 :22 PM CALIBRATION LABORATORY TECHNICIAN EXTUBATION Routine 08/10/2022 12:19 PM CALIBRATION LABORATORY TECHNICIAN POCT GLUCOSE DEVICE Routine 08/10/2022 1 1:28 AM CALIBRATION LABORATORY TECHNICIAN CRITICAL CARE Routine 08/10/2022 8:36 AM CALIBRATION LABORATORY TECHNICIAN Cervical spinal stenosis POCT GLUCOSE DEVICE Routine 08/10/2022 7 :42 AM CALIBRATION LABORATORY TECHNICIAN POCT GLUCOSE DEVICE Routine 08/10/2022 3 :05 AM CALIBRATION LABORATORY TECHNICIAN ECG 12-LEAD Routine 08/10/2022 12:01 AM CALIBRATION LABORATORY TECHNICIAN XR CHEST 1 VIEW ED Urgent/IP Urgent 08/09/2022 11:27 PM CALIBRATION LABORATORY TECHNICIAN EGFR STAT 08/09/2022 11:21 PM CALIBRATION LABORATORY TECHNICIAN DIFFERENTIAL AUTO STAT 08/09/2022 11: 21 PM CALIBRATION LABORATORY TECHNICIAN CBC WITH AUTO DIFFERENTIAL STAT 08/09/2022 11:21 PM CALIBRATION LABORATORY TECHNICIAN TRIGLYCERIDES STAT 08/09/2022 11:21 PM CALIBRATION LABORATORY TECHNICIAN PHOSPHORUS STAT 08/09/2022 11:21 PM CALIBRATION LABORATORY TECHNICIAN MAGNESIUM STAT 08/09/2022 11:21 PM CALIBRATION LABORATORY TECHNICIAN BLOOD GAS, ARTERIAL STAT 08/09/2022 1 1:21 PM CALIBRATION LABORATORY TECHNICIAN LIPID PANEL STAT 08/09/2022 11:21 PM CALIBRATION LABORATORY TECHNICIAN COMPREHENSIVE METABOLIC PANEL STAT 08/09/2022 11:21 PM CALIBRATION LABORATORY TECHNICIAN POCT GLUCOSE DEVICE Routine 08/09/2022 1 0:51 PM CALIBRATION LABORATORY TECHNICIAN POC BLOOD GAS AND CHEMISTRIES, ARTERIAL Routine 08/09/2022 9:33 PM CALIBRATION LABORATORY TECHNICIAN FL FLUOROSCOPY < 1 HOUR IP Routine 08/09/2022 9:20 PM CALIBRATION LABORATORY TECHNICIAN IRRIGATION AND DEBRIDEMENT ? BACK 08/09/2022 8:42 PM CALIBRATION LABORATORY TECHNICIAN Cervical spinal stenosis Case Notes Requested by Shamar. [phone] HC ANTIBODY SCREEN RBC Timed 08/09/2022 8:31 PM CALIBRATION LABORATORY TECHNICIAN FL FLUOROSCOPY < 1 HOUR IP Routine 08/09/2022 5:12 PM CALIBRATION LABORATORY TECHNICIAN COVID-19 CORONAVIRUS RNA Routine 08/09/2022 11:12 AM CALIBRATION LABORATORY TECHNICIAN documented in this encounter Results * XR Spine Cervical 2 or 3 Views (08/12/2022 10:50 AM CALIBRATION LABORATORY TECHNICIAN) Anatomical Region Laterality Modality Spine N/A Computed Radiogr aphy 08/12/2022 10:5 4 AM CALIBRATION LABORATORY TECHNICIAN Impressions 08/12/2022 10:54 AM CALIBRATION LABORATORY TECHNICIAN Interval anterior discectomy and instrumented fusion C3-C6. Electronically signed by: Jarod Page M.D. Narrative 08/12/2022 10:54 AM CALIBRATION LABORATORY TECHNICIAN EXAMINATION: Cervical spine 2 or 3 views HISTORY: Cervical spondylosis FINDINGS: 2 views of the cervical spine were performed with comparison made to 07/20/2022. ??There has been interval anterior cervical discectomy and instrumented fusion C3-C6. ??There is prevertebral soft tissue swelling and a surgical drain. ??There is czbc-mk-nnhsrytr degenerative disc disease at the nonfused segments. There is levoscoliosis of the upper thoracic spine. Procedure Note Jarod Page MD PhD - 08/12/2022 EXAMINATION: Cervical spine 2 or 3 views HISTORY: Cervical spondylosis FINDINGS: 2 views of the cervical spine were performed with comparison made to 07/20/2022. There has been interval anterior cervical discectomy and instrumented fusion C3-C6. There is prevertebral soft tissue swelling and a surgical drain. There is ilaj-bg-fnictssx degenerative disc disease at the nonfused segments. There is levoscoliosis of the upper thoracic spine. IMPRESSION: Interval anterior discectomy and instrumented fusion C3-C6. Electronically signed by: Jarod Page M.D. us Olivier Marion MD IMG XR PROCEDURES Final Re sult * eGFR (08/12/2022 8:43 AM CALIBRATION LABORATORY TECHNICIAN) eGFR >90 90 - 130 mL/min/1. 73 m2 [facility] Comment: Interpretive Data Reference Interval Normal ?>/= 90 mL/min/1.73m2 Mildly decreased* ? 60 - 89 mL/min/1.73m2 Mildly to moderately decreased ?45 - 59 mL/min/1.73m2 Moderately to severely decreased ??30 - 44 mL/min/1.73m2 Severely decreased ?15 - 29 mL/min/1.73m2 Kidney Failure ?< 15 ??mL/min/1.73m2 *Relative to young adult level Estimated glomerular filtration rate is determined by the 2020 CKD-EPI equation recommended by the National Kidney Foundation (A Unifying Approach to GFR Estimation: Recommendations of the NKF-ASK Task Force on Reassessing the Inclusion of Race in Diagnosing Kidney Disease, JASN 202). The CKD-EPI equation should not be used for patients with unstable renal function and has not been validated in children and those over 70. Current interpretive data was last reviewed 2021. Blood 08/12/2022 8:43 AM CALIBRATION LABORATORY TECHNICIAN 08/12/2022 9:04 AM CALIBRATION LABORATORY TECHNICIAN Olivier Marion MD LAB BLOOD ORDERABLES Final Result Performing Organization Address City/[facility]/ZIP Co de Phone Number [facility] Department [place] [address] * (ABNORMAL) Basic metabolic panel (08/12/2022 8:43 AM CALIBRATION LABORATORY TECHNICIAN) Sodium 135 135 - 145 mmol/L [facility] Potassium, pl 3.9 3.3 - 4.9 mmol/L [facility] Chloride 96(L) 97 - 110 mmol/L [facility] CO2 32 22 - 32 mmol/L [facility] Anion gap 7 2 - 15 mmol/L [facility] BUN 8 8 - 25 mg/dL [facility] Creatinine 0.57(L) 0.60 - 1.10 mg/dL [facility] Glucose 103 70 - 199 mg/dL [facility] Comment: Interpretive Data Fasting glucose >/= 126 mg/dl is diagnostic for diabetes. ?? Fasting is defined as no caloric intake for at least 8 hours. Fasting glucose between 100 mg/dl to 125 mg/dl is diagnostic of prediabetes. In a patient with classic symptoms of hyperglycemia or hyperglycemic crisis, a random glucose >/= 200 mg/dl is diagnostic for diabetes. In the absence of unequivocal hyperglycemia, results should be confirmed by repeat testing. The classification and Diagnosis of Diabetes Diabetes Care 2017;40 (Suppl. 1):S11. Current interpretive data was last revised 2017. Calcium 8.9 8.5 - 10.3 mg/dL [facility] Blood 08/12/2022 8:43 AM CALIBRATION LABORATORY TECHNICIAN 08/12/2022 9:04 AM CALIBRATION LABORATORY TECHNICIAN Olivier Marion MD LAB BLOOD ORDERABLES Final Result Performing Organization Address [facility] Co de Phone Number [facility] Department [place] [address] * (ABNORMAL) CBC without differential (08/12/2022 8:43 AM CALIBRATION LABORATORY TECHNICIAN) [facility] WBC 7.3 3.8 - 9.9 K/cumm [facility] Hgb 10.5(L) 11.9 - 15.5 g/dL [facility] Hct 32.1(L) 35.6 - 45.5 % [facility] Plt 186 150 - 400 K/cumm [facility] MPV 11.6 9.1 - 12.3 fL [facility] RBC 3.38(L) 3.90 - 5.20 M/cumm [facility] MCV 95.0 81.3 - 96.4 fL [facility] MCH 31.1 27.1 - 33.3 pg [facility] MCHC 32.7 32.3 - 35.7 g/dL [facility] RDW CV 12.3 11.1 - 14.9 % [facility] RDW SD 43.0 35.7 - 48.1 fL [facility] NRBC abs 0.00 0.00 - 0.01 K/cumm [facility] Blood 08/12/2022 8:43 AM CALIBRATION LABORATORY TECHNICIAN 08/12/2022 9:04 AM CALIBRATION LABORATORY TECHNICIAN us Olivier Marion MD LAB BLOOD ORDERABLES Final Result [facility] [place] [address] * eGFR (08/11/2022 8:49 PM CALIBRATION LABORATORY TECHNICIAN) [facility] eGFR >90 90 - 130 mL/min/1. 73 m2 [facility] Comment: Interpretive Data Reference Interval Normal ?>/= 90 mL/min/1.73m2 Mildly decreased* ? 60 - 89 mL/min/1.73m2 Mildly to moderately decreased ?45 - 59 mL/min/1.73m2 Moderately to severely decreased ??30 - 44 mL/min/1.73m2 Severely decreased ?15 - 29 mL/min/1.73m2 Kidney Failure ?< 15 ??mL/min/1.73m2 *Relative to young adult level Estimated glomerular filtration rate is determined by the 2020 CKD-EPI equation recommended by the National Kidney Foundation (A Unifying Approach to GFR Estimation: Recommendations of the NKF-ASK Task Force on Reassessing the Inclusion of Race in Diagnosing Kidney Disease, JASN 202). The CKD-EPI equation should not be used for patients with unstable renal function and has not been validated in children and those over 70. Current interpretive data was last reviewed 2021. Blood 08/11/2022 8:49 PM CALIBRATION LABORATORY TECHNICIAN 08/11/2022 9:03 PM CALIBRATION LABORATORY TECHNICIAN us Olivier Marion MD LAB BLOOD ORDERABLES Final Result [facility] [place] [address] * Differential, auto (08/11/2022 8:49 PM CALIBRATION LABORATORY TECHNICIAN) Pathologist [facility] Neutrophil abs 5.6 1.7 - 6.5 K/cumm [facility] Imm gran abs 0.1 0.0 - 0.1 K/cumm [facility] Lymphocyte abs 1.9 0.8 - 3.3 K/cumm [facility] Monocyte abs 0.6 0.2 - 0.8 K/cumm [facility] Eosinophil abs 0.0 0.0 - 0.5 K/cumm [facility] Basophil abs 0.0 0.0 - 0.1 K/cumm [facility] Neutrophil pct 68.4 % [facility] Comment: Interpretive Data Percent cell count reference ranges are not reported, since discordance with absolute values may lead to misinterpretation of CBC data. Current Interpretive Data was last revised on 2017. Imm gran pct 0.6 % [facility] Comment: Interpretive Data Percent cell count reference ranges are not reported, since discordance with absolute values may lead to misinterpretation of CBC data. Current Interpretive Data was last revised on 2017. Lymphocyte pct 23.3 % [facility] Comment: Interpretive Data Percent cell count reference ranges are not reported, since discordance with absolute values may lead to misinterpretation of CBC data. Current Interpretive Data was last revised on 2017. Monocyte pct 7.0 % [facility] Comment: Interpretive Data Percent cell count reference ranges are not reported, since discordance with absolute values may lead to misinterpretation of CBC data. Current Interpretive Data was last revised on 2017. Eosinophil pct 0.5 % [facility] Comment: Interpretive Data Percent cell count reference ranges are not reported, since discordance with absolute values may lead to misinterpretation of CBC data. Current Interpretive Data was last revised on 2017. Basophil pct 0.2 % [facility] Comment: Interpretive Data Percent cell count reference ranges are not reported, since discordance with absolute values may lead to misinterpretation of CBC data. Current Interpretive Data was last revised on 2017. Blood 08/11/2022 8:49 PM CALIBRATION LABORATORY TECHNICIAN 08/11/2022 9:03 PM CALIBRATION LABORATORY TECHNICIAN Olivier Marion MD LAB BLOOD ORDERABLES Final Result Performing Organization Address City/[facility]/ZIP Co de Phone Number [facility] [place] [address] * (ABNORMAL) Phosphorus (08/11/2022 8:49 PM CALIBRATION LABORATORY TECHNICIAN) Phosphorus, pl 1.6(L) 2.3 - 4.5 mg/dL [facility] Blood 08/11/2022 8:49 PM CALIBRATION LABORATORY TECHNICIAN 08/11/2022 9:03 PM CALIBRATION LABORATORY TECHNICIAN Olivier Marion MD LAB BLOOD ORDERABLES Final Result Performing Organization Address City/[facility]/ZIP Co de Phone Number [facility] [place] [address] * Magnesium (08/11/2022 8:49 PM CALIBRATION LABORATORY TECHNICIAN) Pathologist [facility] Magnesium 2.1 1.4 - 2.5 mg/dL [facility] Blood 08/11/2022 8:49 PM CALIBRATION LABORATORY TECHNICIAN 08/11/2022 9:03 PM CALIBRATION LABORATORY TECHNICIAN us Olivier Marion MD LAB BLOOD ORDERABLES Final Result [facility] [place] [address] * (ABNORMAL) Comprehensive metabolic panel (08/11/2022 8:49 PM CALIBRATION LABORATORY TECHNICIAN) Pathologist [facility] Sodium 133(L) 135 - 145 mmol/L [facility] Comment:Repeated and Verifie d Potassium, pl 3.1(L) 3.3 - 4.9 mmol/L [facility] Chloride 96(L) 97 - 110 mmol/L [facility] CO2 30 22 - 32 mmol/L [facility] Anion gap 7 2 - 15 mmol/L [facility] BUN 12 8 - 25 mg/dL [facility] Creatinine 0.57(L) 0.60 - 1.10 mg/dL [facility] Glucose 126 70 - 199 mg/dL [facility] Comment: Interpretive Data Fasting glucose >/= 126 mg/dl is diagnostic for diabetes. ?? Fasting is defined as no caloric intake for at least 8 hours. Fasting glucose between 100 mg/dl to 125 mg/dl is diagnostic of prediabetes. In a patient with classic symptoms of hyperglycemia or hyperglycemic crisis, a random glucose >/= 200 mg/dl is diagnostic for diabetes. In the absence of unequivocal hyperglycemia, results should be confirmed by repeat testing. The classification and Diagnosis of Diabetes Diabetes Care 2017;40 (Suppl. 1):S11. Current interpretive data was last revised 2017. Calcium 8.5 8.5 - 10.3 mg/dL [facility] Bilirubin, total 0.3 0.1 - 1.2 mg/dL [facility] Protein, pl 6.5 6.5 - 8.5 g/dL [facility] Albumin 4.0 3.5 - 5.0 g/dL [facility] Alk phos 43 40 - 130 Units/L [facility] ALT 21 7 - 45 Units/L [facility] AST 28 10 - 45 Units/L [facility] Blood 08/11/2022 8:49 PM CALIBRATION LABORATORY TECHNICIAN 08/11/2022 9:03 PM CALIBRATION LABORATORY TECHNICIAN Olivier Marion MD LAB BLOOD ORDERABLES Final Result [facility] [place] [address] * (ABNORMAL) CBC with auto differential (08/11/2022 8:49 PM CALIBRATION LABORATORY TECHNICIAN) Pathologist [facility] WBC 8.2 3.8 - 9.9 K/cumm [facility] Hgb 9.9(L) 11.9 - 15.5 g/dL [facility] Hct 29.4(L) 35.6 - 45.5 % [facility] Plt 166 150 - 400 K/cumm [facility] MPV 11.6 9.1 - 12.3 fL [facility] RBC 3.04(L) 3.90 - 5.20 M/cumm [facility] MCV 96.7(H) 81.3 - 96.4 fL [facility] MCH 32.6 27.1 - 33.3 pg [facility] MCHC 33.7 32.3 - 35.7 g/dL [facility] RDW CV 12.5 11.1 - 14.9 % [facility] RDW SD 43.9 35.7 - 48.1 fL [facility] NRBC abs 0.00 0.00 - 0.01 K/cumm [facility] Blood 08/11/2022 8:49 PM CALIBRATION LABORATORY TECHNICIAN 08/11/2022 9:03 PM CALIBRATION LABORATORY TECHNICIAN Olivier Marion MD LAB BLOOD ORDERABLES Final Result [facility] [place] [address] * Critical Care (08/11/2022 6:40 AM CALIBRATION LABORATORY TECHNICIAN) Narrative Shiva Puente MD - 08/11/2022 6:40 AM CALIBRATION LABORATORY TECHNICIAN Shiva Puente MD ? 08/11/2022 ??5:31 PM Critical Care Performed by: Shiva Punete MD Authorized by: Shiva Puente MD CRITICAL CARE: ??Team: ??SICU RED ??Shift: ??AM ??Level of Billing: ??Subsequent Hospital Visit Level 3 ??My time spent with this patient was 40 minutes: Critical Provider Statement: I have seen and examined the patient on this day of service. I have reviewed and confirmed the history, physical exam, laboratory, and radiographic data as documented in the ICU note. I have reviewed and discussed my treatment plan with the patient's team and other medical/edi consultant staff. This time was in addition to and separate from care provided by other practitioners on this day of service. ? Acute pain/acute postoperative pain ?? S/p neck hematoma evacuation S/p spine surgery ??This time was spent by me doing the following: ? Acute pain control and Frequent neurologic exams ?? Active and frequent reassessment of respiratory status and oxygen requirements and Incentive spirometry, pulmonary toilet ?? Active and frequent monitoring of intake/output and volumen status ?? Spinal immobilization ?? I spent time reviewing and interpreting data from bedside monitors, laboratory results, and imaging, I spent time discussing the management of this critically ill patient with consultants and the medical staff and I spent time documenting in the medical record us Shiva Puente MD IN CLINIC/BEDSIDE ORDER ADIN Final Result * POCT glucose (08/10/2022 11:03 PM CALIBRATION LABORATORY TECHNICIAN) Glucose, POC 126 70 - 199 mg/dL [facility] Blood 08/10/2022 11:0 3 PM CALIBRATION LABORATORY TECHNICIAN 08/10/2022 11:03 PM CALIBRATION LABORATORY TECHNICIAN us Olivier Marion MD LAB POCT ORDERABLES - AMELIE CE Final Result Performing Organization Address [facility]/ZIP Co de Phone Number JT PERE[facility] [place] [address] * eGFR (08/10/2022 8:27 PM CALIBRATION LABORATORY TECHNICIAN) eGFR >90 90 - 130 mL/min/1. 73 m2 [facility] Comment: Interpretive Data Reference Interval Normal ?>/= 90 mL/min/1.73m2 Mildly decreased* ? 60 - 89 mL/min/1.73m2 Mildly to moderately decreased ?45 - 59 mL/min/1.73m2 Moderately to severely decreased ??30 - 44 mL/min/1.73m2 Severely decreased ?15 - 29 mL/min/1.73m2 Kidney Failure ?< 15 ??mL/min/1.73m2 *Relative to young adult level Estimated glomerular filtration rate is determined by the 2020 CKD-EPI equation recommended by the National Kidney Foundation (A Unifying Approach to GFR Estimation: Recommendations of the NKF-ASK Task Force on Reassessing the Inclusion of Race in Diagnosing Kidney Disease, JASN 2020). The CKD-EPI equation should not be used for patients with unstable renal function and has not been validated in children and those over 70. Current interpretive data was last reviewed 2021. Blood 08/10/2022 8:27 PM CALIBRATION LABORATORY TECHNICIAN 08/10/2022 8:40 PM CALIBRATION LABORATORY TECHNICIAN us Olivier Marion MD LAB BLOOD ORDERABLES Final Result Performing Organization Address [facility]/ZIP Co de Phone Number JT PERE[facility] [place] [address] * (ABNORMAL) Differential, auto (08/10/2022 8:27 PM CALIBRATION LABORATORY TECHNICIAN) Neutrophil abs 10.7(H) 1.7 - 6.5 K/cumm [facility] Imm gran abs 0.1 0.0 - 0.1 K/cumm [facility] Lymphocyte abs 0.8 0.8 - 3.3 K/cumm [facility] Monocyte abs 0.8 0.2 - 0.8 K/cumm [facility] Eosinophil abs 0.0 0.0 - 0.5 K/cumm [facility] Basophil abs 0.0 0.0 - 0.1 K/cumm [facility] Neutrophil pct 86.9 % [facility] Comment: Interpretive Data Percent cell count reference ranges are not reported, since discordance with absolute values may lead to misinterpretation of CBC data. Current Interpretive Data was last revised on 2017. Imm gran pct 0.4 % [facility] Comment: Interpretive Data Percent cell count reference ranges are not reported, since discordance with absolute values may lead to misinterpretation of CBC data. Current Interpretive Data was last revised on 2017. Lymphocyte pct 6.5 % [facility] Comment: Interpretive Data Percent cell count reference ranges are not reported, since discordance with absolute values may lead to misinterpretation of CBC data. Current Interpretive Data was last revised on 2017. Monocyte pct 6.2 % [facility] Comment: Interpretive Data Percent cell count reference ranges are not reported, since discordance with absolute values may lead to misinterpretation of CBC data. Current Interpretive Data was last revised on 2017. Eosinophil pct 0.0 % [facility] Comment: Interpretive Data Percent cell count reference ranges are not reported, since discordance with absolute values may lead to misinterpretation of CBC data. Current Interpretive Data was last revised on 2017. Basophil pct 0.0 % [facility] Comment: Interpretive Data Percent cell count reference ranges are not reported, since discordance with absolute values may lead to misinterpretation of CBC data. Current Interpretive Data was last revised on 2017. Blood 08/10/2022 8:27 PM CALIBRATION LABORATORY TECHNICIAN 08/10/2022 8:40 PM CALIBRATION LABORATORY TECHNICIAN Olivier Marion MD LAB BLOOD ORDERABLES Final Result Performing Organization Address City/[facility]/ZIP Co de Phone Number [facility] [place] [address] * Phosphorus (08/10/2022 8:27 PM CALIBRATION LABORATORY TECHNICIAN) Pathologist [facility] Phosphorus, pl 2.8 2.3 - 4.5 mg/dL [facility] Blood 08/10/2022 8:27 PM CALIBRATION LABORATORY TECHNICIAN 08/10/2022 8:40 PM CALIBRATION LABORATORY TECHNICIAN Olivier Marion MD LAB BLOOD ORDERABLES Final Result Performing Organization Address [facility] Co de Phone Number [facility] [place] [address] * Magnesium (08/10/2022 8:27 PM CALIBRATION LABORATORY TECHNICIAN) [facility] Magnesium 2.4 1.4 - 2.5 mg/dL [facility] Blood 08/10/2022 8:27 PM CALIBRATION LABORATORY TECHNICIAN 08/10/2022 8:40 PM CALIBRATION LABORATORY TECHNICIAN Olivier Marion MD LAB BLOOD ORDERABLES Final Result Performing Organization Address City/[facility] Co de Phone Number [facility] [place] [address] * (ABNORMAL) Comprehensive metabolic panel (08/10/2022 8:27 PM CALIBRATION LABORATORY TECHNICIAN) [facility] Sodium 144 135 - 145 mmol/L [facility] Potassium, pl 4.0 3.3 - 4.9 mmol/L [facility] Chloride 105 97 - 110 mmol/L [facility] CO2 28 22 - 32 mmol/L [facility] Anion gap 11 2 - 15 mmol/L [facility] BUN 8 8 - 25 mg/dL [facility] Creatinine 0.61 0.60 - 1.10 mg/dL [facility] Glucose 141 70 - 199 mg/dL [facility] Comment: Interpretive Data Fasting glucose >/= 126 mg/dl is diagnostic for diabetes. ?? Fasting is defined as no caloric intake for at least 8 hours. Fasting glucose between 100 mg/dl to 125 mg/dl is diagnostic of prediabetes. In a patient with classic symptoms of hyperglycemia or hyperglycemic crisis, a random glucose >/= 200 mg/dl is diagnostic for diabetes. In the absence of unequivocal hyperglycemia, results should be confirmed by repeat testing. The classification and Diagnosis of Diabetes Diabetes Care 2017;40 (Suppl. 1):S11. Current interpretive data was last revised 2017. Calcium 9.0 8.5 - 10.3 mg/dL [facility] Bilirubin, total 0.4 0.1 - 1.2 mg/dL [facility] Protein, pl 6.9 6.5 - 8.5 g/dL [facility] Albumin 4.2 3.5 - 5.0 g/dL [facility] Alk phos 34(L) 40 - 130 Units/L [facility] ALT 17 7 - 45 Units/L [facility] AST 29 10 - 45 Units/L [facility] Blood 08/10/2022 8:27 PM CALIBRATION LABORATORY TECHNICIAN 08/10/2022 8:40 PM CALIBRATION LABORATORY TECHNICIAN Olivier Marion MD LAB BLOOD ORDERABLES Final Result [facility] [place] [address] * (ABNORMAL) CBC with auto differential (08/10/2022 8:27 PM CALIBRATION LABORATORY TECHNICIAN) [facility] WBC 12.3(H) 3.8 - 9.9 K/cumm [facility] Hgb 11.1(L) 11.9 - 15.5 g/dL [facility] Hct 34.1(L) 35.6 - 45.5 % [facility] Plt 200 150 - 400 K/cumm [facility] MPV 11.9 9.1 - 12.3 fL [facility] RBC 3.48(L) 3.90 - 5.20 M/cumm [facility] MCV 98.0(H) 81.3 - 96.4 fL [facility] MCH 31.9 27.1 - 33.3 pg [facility] MCHC 32.6 32.3 - 35.7 g/dL [facility] RDW CV 12.6 11.1 - 14.9 % [facility] RDW SD 45.1 35.7 - 48.1 fL [facility] NRBC abs 0.00 0.00 - 0.01 K/cumm [facility] Blood 08/10/2022 8:27 PM CALIBRATION LABORATORY TECHNICIAN 08/10/2022 8:40 PM CALIBRATION LABORATORY TECHNICIAN us Olivier Marion MD LAB BLOOD ORDERABLES Final Result [facility] [place] [address] * Critical Care (08/10/2022 7:29 PM CALIBRATION LABORATORY TECHNICIAN) Narrative Joe Trimble MD - 08/10/2022 7:29 PM CALIBRATION LABORATORY TECHNICIAN Joe Trimble MD ? 08/13/2022 ??1:57 PM Critical Care Performed by: Joe Trimble MD Authorized by: Joe Trimble MD CRITICAL CARE: ??Team: ??SICU RED ??Shift: ??PM ??Level of Billing: ??Critical Care ??My time spent with this patient was 30 minutes: Critical Provider Statement: I have seen and examined the patient on this day of service. I have reviewed and confirmed the history, physical exam, laboratory and radiologic data as documented in the signed ICU note. I have reviewed and discussed my treatment plan with the ICU team and other medical/edi consultant staff, making frequent assessments and decisions regarding this patient's complex medical care. Critical Care time was exclusive of time spent performing separately billed procedures, treating other patients, and teaching. This time was in addition to and separate from critical care provided by other practitioners in my group on this day of service. Critical Care was necessary to treat or prevent imminent or life-threatening deterioration of the following conditions: ?? us Joe Trimble MD IN CLINIC/BEDSIDE ORDE RABLES Final Result * POCT glucose (08/10/2022 7:15 PM CALIBRATION LABORATORY TECHNICIAN) Glucose, POC 173 70 - 199 mg/dL [facility] Blood 08/10/2022 7:15 PM CALIBRATION LABORATORY TECHNICIAN 08/10/2022 7:15 PM CALIBRATION LABORATORY TECHNICIAN Olivier Marion MD LAB POCT ORDERABLES - AMELIE CE Final Result Performing Organization Address City/[facility]/ZIP Co de Phone Number [facility] [place] [employer] [place] [address] * POCT glucose (08/10/2022 3:22 PM CALIBRATION LABORATORY TECHNICIAN) Glucose, POC 143 70 - 199 mg/dL [facility] Blood 08/10/2022 3:22 PM CALIBRATION LABORATORY TECHNICIAN 08/10/2022 3:22 PM CALIBRATION LABORATORY TECHNICIAN Olivier Marion MD LAB POCT ORDERABLES - AMELIE CE Final Result Performing Organization Address City/[facility] Co de Phone Number [facility] [place] [employer] [place] [address] * POCT glucose (08/10/2022 11:28 AM CALIBRATION LABORATORY TECHNICIAN) Glucose, POC 145 70 - 199 mg/dL [facility] Blood 08/10/2022 11:2 8 AM CALIBRATION LABORATORY TECHNICIAN 08/10/2022 11:28 AM CALIBRATION LABORATORY TECHNICIAN Olivier Marion MD LAB POCT ORDERABLES - AMELIE CE Final Result Performing Organization Address City/[facility]/ZIP Co de Phone Number [facility] [place] [employer] [place] [address] * Critical Care (08/10/2022 8:36 AM CALIBRATION LABORATORY TECHNICIAN) Narrative Shiva Puente MD - 08/10/2022 8:36 AM CALIBRATION LABORATORY TECHNICIAN Shiva Puente MD ? 08/10/2022 ??5:13 PM Critical Care Performed by: Shiva Puente MD Authorized by: Shiva Puente MD CRITICAL CARE: ??Team: ??SICU RED ??Shift: ??AM ??Level of Billing: ??Critical Care ??My time spent with this patient was 50 minutes: Critical Provider Statement: I have seen and examined the patient on this day of service. I have reviewed and confirmed the history, physical exam, laboratory and radiologic data as documented in the signed ICU note. I have reviewed and discussed my treatment plan with the ICU team and other medical/edi consultant staff, making frequent assessments and decisions regarding this patient's complex medical care. Critical Care time was exclusive of time spent performing separately billed procedures, treating other patients, and teaching. This time was in addition to and separate from critical care provided by other practitioners in my group on this day of service. Critical Care was necessary to treat or prevent imminent or life-threatening deterioration of the following conditions: ? Acute pain/acute postoperative pain and Agitation requiring sedation ?? Acute respiratory failure following procedure/surgery ??This time was spent by me doing the following: ? Acute pain control, Active titration of continuous sedation and Frequent neurologic exams ?? Active and frequent reassessment of respiratory status and oxygen requirements, Invasive ventilator management, reassessment, and titration and Acute airway management ?? Active and frequent monitoring of intake/output and volumen status ?? Empiric broad coverage antibiotics ?? Spinal immobilization ?? I spent time reviewing and interpreting data from bedside monitors, laboratory results, and imaging, I spent time discussing the management of this critically ill patient with consultants and the medical staff and I spent time documenting in the medical record us Shiva Puente MD IN CLINIC/BEDSIDE ORDER ADIN Final Result * POCT glucose (08/10/2022 7:42 AM CALIBRATION LABORATORY TECHNICIAN) Glucose, POC 145 70 - 199 mg/dL [facility] Blood 08/10/2022 7:42 AM CALIBRATION LABORATORY TECHNICIAN 08/10/2022 7:42 AM CALIBRATION LABORATORY TECHNICIAN us Olivier Marion MD LAB POCT ORDERABLES - AMELIE CE Final Result Performing Organization Address [facility] Co de Phone Number [facility] [place] [address] * POCT glucose (08/10/2022 3:05 AM CALIBRATION LABORATORY TECHNICIAN) Glucose, POC 166 70 - 199 mg/dL [facility] Blood 08/10/2022 3:05 AM CALIBRATION LABORATORY TECHNICIAN 08/10/2022 3:05 AM CALIBRATION LABORATORY TECHNICIAN Olivier Marion MD LAB POCT ORDERABLES - AMELIE CE Final Result Performing Organization Address [facility] de Phone Number [facility] [place] [address] * ECG 12 lead (08/10/2022 12:01 AM CALIBRATION LABORATORY TECHNICIAN) Ventricular Rate EKG/Min 58 BPM [facility] Atrial Rate 58 BPM [facility] MD-Interval (MSEC) 182 ms [facility] QRS-Interval (MSEC) 84 ms [facility] QT-Interval (MSEC) 460 ms [facility] QTc 451 ms [facility] P Hollis 63 degrees [facility] R Hollis 76 degrees [facility] T Hollis 74 degrees [facility] Diagnosis Sinus bradycardia Otherwise normal ECG No previous ECGs available Confirmed by SUSY ESCOBEDO M.D ([id number]) on 08/17/2022 10:03:00 AM [facility] 08/10/2022 12:0 1 AM CALIBRATION LABORATORY TECHNICIAN 08/17/2022 10:03 AM CALIBRATION LABORATORY TECHNICIAN Luli Bond MD ECG ORDERABLES Final Result Performing Organization Address [facility] Co de Phone Number [facility] * X-ray chest 1 view (Portable) (08/09/2022 11:27 PM CALIBRATION LABORATORY TECHNICIAN) Anatomical Region Laterality Modality Body, Chest N/A Computed Radiogr aphy 08/10/2022 8:35 AM CALIBRATION LABORATORY TECHNICIAN Impressions 08/10/2022 8:35 AM CALIBRATION LABORATORY TECHNICIAN The patient is status post cervical spine anterior fusion. The distal tip of the endotracheal tube is located 6 cm above the carinal bifurcation. A drain is seen in the base of the neck. Lungs are well-expanded and clear with the exception of minimal atelectasis at the left lung base. There is no pneumothorax. Electronically signed by: Yash Martinez M.D. Narrative 08/10/2022 8:35 AM CALIBRATION LABORATORY TECHNICIAN EXAMINATION: 1 view chest radiograph Procedure Note Yash Martinez MD - 08/10/2022 EXAMINATION: 1 view chest radiograph IMPRESSION: The patient is status post cervical spine anterior fusion. The distal tip of the endotracheal tube is located 6 cm above the carinal bifurcation. A drain is seen in the base of the neck. Lungs are well-expanded and clear with the exception of minimal atelectasis at the left lung base. There is no pneumothorax. Electronically signed by: Yash Martinez M.D. us Olivier Marion MD IMG XR PROCEDURES Final Re sult * Lipid panel (08/09/2022 11:21 PM CALIBRATION LABORATORY TECHNICIAN) [facility] Cholesterol 101 30 - 199 mg/dL [facility] Comment: Interpretive Data Ages < or = 19 years ??Acceptable: ? <170 mg/dL ??Borderline high: ??170-199 mg/dL ??High: ? >or= 200 mg/dL Ages > or = 20 years ??Desirable: ?<200 mg/dL ??Borderline high: ??200-239 mg/dL ??High: ? >or= 240 mg/dL Literature References: 1. Expert Panel on Integrated Guidelines for Cardiovascular Health and Risk Reduction in Children and Adolescents. Pediatrics 2011;128:S213 2. NCEP Expert Panel. Circulation 2004;110:227 Current Interpretive Data was last revised on 2018. Triglycerides 39 <=149 mg/dL [facility] Comment: Interpretive Data Ages < or = 9 years ??Acceptable: ? <75 mg/dL ??Borderline high: ??75-99 mg/dL ??High: ? >or= 100 mg/dL Ages 10 to 20 years ??Acceptable: ? <90 mg/dL ??Borderline high: ??90-129 mg/dL ??High: ? >or= 130 mg/dL Ages > or = 20 years ??Desirable: ?<150 mg/dL ??Borderline high: ??150-199 mg/dL ??High: ? 200-499 mg/dL ?Very high: ?? >or= 499 mg/dL Literature References: 1. Expert Panel on Integrated Guidelines for Cardiovascular Health and Risk Reduction in Children and Adolescents. Pediatrics 2011;128:S213 2. NCEP Expert Panel. Circulation 2004;110:227 Current Interpretive Data was last revised on 2018. HDL 41 >=40 mg/dL [facility] Comment: Interpretive Data Ages < or = 19 years ??Acceptable: ? >45 mg/dL ??Borderline low: ?? 40-45 mg/dL ??Low: ? <40 mg/dL Ages > or = 20 years ??Desirable: ?>or= 60 mg/dL ??Low: ? <40 mg/dL Literature References: 1. Expert Panel on Integrated Guidelines for Cardiovascular Health and Risk Reduction in Children and Adolescents. Pediatrics 2011;128:S213 2. NCEP Expert Panel. Circulation 2004;110:227 Current Interpretive Data was last revised on 2018. LDL, calculated 52 <=129 mg/dL [facility] Comment: Telephone report made to: Shira Camejo RN on 08/10/2022 18:55:48 CALIBRATION LABORATORY TECHNICIAN by DALILA . Interpretive Data Ages < or = 19 years ??Acceptable: ? <110 mg/dL ??Borderline high: ??110-129 mg/dL ??High: ?>or= 130 mg/dL Ages > or = 20 years ??Optimal: ? <100 mg/dL ??Near optimal: ?100-129 mg/dL ??Borderline high: ?? 130-159 mg/dL ??High: ?>160 mg/dL Literature References: 1. Expert Panel on Integrated Guidelines for Cardiovascular Health and Risk Reduction in Children and Adolescents. Pediatrics 2011;128:S213 2. NCEP Expert Panel. Circulation 2004;110:227 Current Interpretive Data was last revised on 2018. Non-HDL Cholesterol 60 mg/dL [facility] Comment: Interpretive Data Ages < or = 19 years ??Acceptable: ?<120 mg/dL ??Borderline high: ??120-144 mg/dL ??High: ?>145 mg/dL Ages > or = 20 years ??When triglycerides are >200 mg/dL, Non-HDL cholesterol is a secondary target of ? therapy with treatment goals that are 30 mg/dL greater than the LDL cholesterol target. ? Literature References: 1. Expert Panel on Integrated Guidelines for Cardiovascular Health and Risk Reduction in Children and Adolescents. Pediatrics 2011;128:S213 2. NCEP Expert Panel. Circulation 2004;110:227 Current Interpretive Data was last revised on 2018. Chol/HDL ratio 2 [facility] Blood 08/09/2022 11:2 1 PM CALIBRATION LABORATORY TECHNICIAN 08/09/2022 11:42 PM CALIBRATION LABORATORY TECHNICIAN Narrative [facility] - 08/10/2022 6:58 PM CALIBRATION LABORATORY TECHNICIAN Reflex us Olivier Marion MD LAB BLOOD ORDERABLES Edite d Result - Final [facility] Department [place] [address] * eGFR (08/09/2022 11:21 PM CALIBRATION LABORATORY TECHNICIAN) eGFR >90 90 - 130 mL/min/1. 73 m2 [facility] Comment: Interpretive Data Reference Interval Normal ?>/= 90 mL/min/1.73m2 Mildly decreased* ? 60 - 89 mL/min/1.73m2 Mildly to moderately decreased ?45 - 59 mL/min/1.73m2 Moderately to severely decreased ??30 - 44 mL/min/1.73m2 Severely decreased ?15 - 29 mL/min/1.73m2 Kidney Failure ?< 15 ??mL/min/1.73m2 *Relative to young adult level Estimated glomerular filtration rate is determined by the 2020 CKD-EPI equation recommended by the National Kidney Foundation (A Unifying Approach to GFR Estimation: Recommendations of the NKF-ASK Task Force on Reassessing the Inclusion of Race in Diagnosing Kidney Disease, JASN 2020). The CKD-EPI equation should not be used for patients with unstable renal function and has not been validated in children and those over 70. Current interpretive data was last reviewed 2021. Blood 08/09/2022 11:2 1 PM CALIBRATION LABORATORY TECHNICIAN 08/09/2022 11:42 PM CALIBRATION LABORATORY TECHNICIAN us Olivier Marion MD LAB BLOOD ORDERABLES Final Result Performing Organization Address City/State/[facility] Phone Number [facility] [place] [address] * Triglycerides (08/09/2022 11:21 PM CALIBRATION LABORATORY TECHNICIAN) Triglycerides 39 <=149 mg/dL [facility] Comment: Interpretive Data Ages < or = 9 years ??Acceptable: ? <75 mg/dL ??Borderline high: ??75-99 mg/dL ??High: ? >or= 100 mg/dL Ages 10 to 20 years ??Acceptable: ? <90 mg/dL ??Borderline high: ??90-129 mg/dL ??High: ? >or= 130 mg/dL Ages > or = 20 years ??Desirable: ?<150 mg/dL ??Borderline high: ??150-199 mg/dL ??High: ? 200-499 mg/dL ?Very high: ?? >or= 499 mg/dL Literature References: 1. Expert Panel on Integrated Guidelines for Cardiovascular Health and Risk Reduction in Children and Adolescents. Pediatrics 2011;128:S213 2. NCEP Expert Panel. Circulation 2004;110:227 Current Interpretive Data was last revised on 2018. Blood 08/09/2022 11:2 1 PM CALIBRATION LABORATORY TECHNICIAN 08/09/2022 11:42 PM CALIBRATION LABORATORY TECHNICIAN us Olivier Marion MD LAB BLOOD ORDERABLES Final Result [facility] [place] [address] * (ABNORMAL) Differential, auto (08/09/2022 11:21 PM CALIBRATION LABORATORY TECHNICIAN) Neutrophil abs 7.9(H) 1.7 - 6.5 K/cumm [facility] Imm gran abs 0.0 0.0 - 0.1 K/cumm [facility] Lymphocyte abs 0.3(L) 0.8 - 3.3 K/cumm [facility] Monocyte abs 0.3 0.2 - 0.8 K/cumm [facility] Eosinophil abs 0.0 0.0 - 0.5 K/cumm [facility] Basophil abs 0.0 0.0 - 0.1 K/cumm [facility] Neutrophil pct 92.3 % [facility] Comment: Interpretive Data Percent cell count reference ranges are not reported, since discordance with absolute values may lead to misinterpretation of CBC data. Current Interpretive Data was last revised on 2017. Imm gran pct 0.4 % [facility] Comment: Interpretive Data Percent cell count reference ranges are not reported, since discordance with absolute values may lead to misinterpretation of CBC data. Current Interpretive Data was last revised on 2017. Lymphocyte pct 3.9 % [facility] Comment: Interpretive Data Percent cell count reference ranges are not reported, since discordance with absolute values may lead to misinterpretation of CBC data. Current Interpretive Data was last revised on 2017. Monocyte pct 3.3 % [facility] Comment: Interpretive Data Percent cell count reference ranges are not reported, since discordance with absolute values may lead to misinterpretation of CBC data. Current Interpretive Data was last revised on 2017. Eosinophil pct 0.0 % [facility] Comment: Interpretive Data Percent cell count reference ranges are not reported, since discordance with absolute values may lead to misinterpretation of CBC data. Current Interpretive Data was last revised on 2017. Basophil pct 0.1 % [facility] Comment: Interpretive Data Percent cell count reference ranges are not reported, since discordance with absolute values may lead to misinterpretation of CBC data. Current Interpretive Data was last revised on 2017. Blood 08/09/2022 11:2 1 PM CALIBRATION LABORATORY TECHNICIAN 08/09/2022 11:42 PM CALIBRATION LABORATORY TECHNICIAN Olivier Marion MD LAB BLOOD ORDERABLES Final Result [facility] [place] [address] * (ABNORMAL) CBC with auto differential (08/09/2022 11:21 PM CALIBRATION LABORATORY TECHNICIAN) WBC 8.6 3.8 - 9.9 K/cumm [facility] Hgb 10.0(L) 11.9 - 15.5 g/dL [facility] Hct 30.3(L) 35.6 - 45.5 % [facility] Plt 196 150 - 400 K/cumm [facility] MPV 11.0 9.1 - 12.3 fL [facility] RBC 3.19(L) 3.90 - 5.20 M/cumm [facility] MCV 95.0 81.3 - 96.4 fL [facility] MCH 31.3 27.1 - 33.3 pg [facility] MCHC 33.0 32.3 - 35.7 g/dL [facility] RDW CV 12.1 11.1 - 14.9 % [facility] RDW SD 42.6 35.7 - 48.1 fL [facility] NRBC abs 0.00 0.00 - 0.01 K/cumm [facility] Blood 08/09/2022 11:2 1 PM CALIBRATION LABORATORY TECHNICIAN 08/09/2022 11:42 PM CALIBRATION LABORATORY TECHNICIAN Olivier Marion MD LAB BLOOD ORDERABLES Final Result [facility] [place] [employer] [place] [address] * Phosphorus (08/09/2022 11:21 PM CALIBRATION LABORATORY TECHNICIAN) Phosphorus, pl 3.1 2.3 - 4.5 mg/dL [facility] Blood 08/09/2022 11:2 1 PM CALIBRATION LABORATORY TECHNICIAN 08/09/2022 11:42 PM CALIBRATION LABORATORY TECHNICIAN Olivier Marion MD LAB BLOOD ORDERABLES Final Result Performing Organization Address City/[facility]/ZIP Co de Phone Number [facility] [place] [employer] [place] [address] * Magnesium (08/09/2022 11:21 PM CALIBRATION LABORATORY TECHNICIAN) Magnesium 1.9 1.4 - 2.5 mg/dL [facility] Blood 08/09/2022 11:2 1 PM CALIBRATION LABORATORY TECHNICIAN 08/09/2022 11:42 PM CALIBRATION LABORATORY TECHNICIAN Olivier Marion MD LAB BLOOD ORDERABLES Final Result Performing Organization Address City/[facility]/ZIP Co de Phone Number [facility] [place] [address] * (ABNORMAL) Comprehensive metabolic panel (08/09/2022 11:21 PM CALIBRATION LABORATORY TECHNICIAN) Sodium 143 135 - 145 mmol/L [facility] Potassium, pl 3.8 3.3 - 4.9 mmol/L [facility] Chloride 108 97 - 110 mmol/L [facility] CO2 25 22 - 32 mmol/L [facility] Anion gap 10 2 - 15 mmol/L [facility] BUN 9 8 - 25 mg/dL [facility] Creatinine 0.64 0.60 - 1.10 mg/dL [facility] Glucose 161 70 - 199 mg/dL [facility] Comment: Interpretive Data Fasting glucose >/= 126 mg/dl is diagnostic for diabetes. ?? Fasting is defined as no caloric intake for at least 8 hours. Fasting glucose between 100 mg/dl to 125 mg/dl is diagnostic of prediabetes. In a patient with classic symptoms of hyperglycemia or hyperglycemic crisis, a random glucose >/= 200 mg/dl is diagnostic for diabetes. In the absence of unequivocal hyperglycemia, results should be confirmed by repeat testing. The classification and Diagnosis of Diabetes Diabetes Care 2017;40 (Suppl. 1):S11. Current interpretive data was last revised 2017. Calcium 8.4(L) 8.5 - 10.3 mg/dL [facility] Bilirubin, total 0.2 0.1 - 1.2 mg/dL [facility] Protein, pl 6.0(L) 6.5 - 8.5 g/dL [facility] Albumin 4.0 3.5 - 5.0 g/dL [facility] Alk phos 29(L) 40 - 130 Units/L [facility] ALT 13 7 - 45 Units/L [facility] AST 15 10 - 45 Units/L [facility] Blood 08/09/2022 11:2 1 PM CALIBRATION LABORATORY TECHNICIAN 08/09/2022 11:42 PM CALIBRATION LABORATORY TECHNICIAN us Olivier Marion MD LAB BLOOD ORDERABLES Final Result [facility] Department [place] [address] * (ABNORMAL) Blood gas, arterial (08/09/2022 11:21 PM CALIBRATION LABORATORY TECHNICIAN) pH, Art 7.34(L) 7.35 - 7.45 [facility] PCO2, Arterial 44 35 - 45 mmHg [facility] PO2, Arterial 181(H) 83 - 108 mmHg [facility] HCO3 Art (Calculated) 24 20 - 30 mmol/L [facility] BE, art -2 mmol/L [facility] Comment: Interpretive Data No Reference Range Established Current Interpretive Data was last revised on 2017 O2 Sat Art (Measured) 100(H) 90 - 95 % [facility] Blood 08/09/2022 11:2 1 PM CALIBRATION LABORATORY TECHNICIAN 08/09/2022 11:28 PM CALIBRATION LABORATORY TECHNICIAN us Olivier Marion MD LAB BLOOD ORDERABLES Final Result Performing Organization Address City/[facility]/ZIP Co de Phone Number [facility] Department [place] [address] * POCT glucose (08/09/2022 10:51 PM CALIBRATION LABORATORY TECHNICIAN) Glucose, POC 173 70 - 199 mg/dL [facility] Blood 08/09/2022 10:5 1 PM CALIBRATION LABORATORY TECHNICIAN 08/09/2022 10:51 PM CALIBRATION LABORATORY TECHNICIAN Olivier Marion MD LAB POCT ORDERABLES - AMELIE CE Final Result [facility] [place] [address] * (ABNORMAL) POC Blood Gas and Chemistries, Arterial - (08/09/2022 9:33 PM CALIBRATION LABORATORY TECHNICIAN) pH, Art POC 7.21(L) 7.35 - 7.45 [facility] pCO2, Art POC 69(H) 35 - 45 mmHg [facility] pO2, Art POC 44(L) 83 - 108 mmHg [facility] Na, POC 139 135 - 145 mmol/L [facility] K POC 3.8 3.3 - 4.9 mmol/L [facility] Comment: Interpretive Data This method is not able to assess for hemolysis, which may falsely increase potassium concentrations. If further testing is needed to evaluate this result, consider in-laboratory plasma potassium. Current Interpretive Data was last revised on 2022. Cl, POC 107 97 - 110 mmol/L [facility] Ionized Ca, POC 5.07 4.50 - 5.10 mg/dL [facility] Glucose, POC 215(H) 70 - 199 mg/dL [facility] Lactate, POC 2.5(H) 0.7 - 2.2 mmol/L [facility] SO2 (godwin) arterial 71(L) 90 - 95 % [facility] Base excess, POC -1.5 mmol/L [facility] HCO3, Art POC 23 20 - 30 mmol/L [facility] Hct, POC 35.0(L) 36.3 - 45.3 % [facility] O2 Sat, Art POC (Calc) 68 % [facility] Total Hb, POC 11.5(L) 11.9 - 15.5 g/dL [facility] Blood 08/09/2022 9:33 PM CALIBRATION LABORATORY TECHNICIAN 08/09/2022 9:33 PM CALIBRATION LABORATORY TECHNICIAN Olivier Marion MD LAB POCT ORDERABLES - AMELIE CE Final Result Performing Organization Address City/[facility]/ZIP Co de Phone Number [facility] Department [place] [address] * [place] Fluoroscopy < 1 Hour (08/09/2022 9:20 PM CALIBRATION LABORATORY TECHNICIAN) Narrative [facility] - 08/10/2022 1:12 AM CALIBRATION LABORATORY TECHNICIAN The images from this study are not interpreted by Radiology. ??Please refer to the physician's procedure / OR operative note. Olivier Marion MD IMG FLUOROSCOPY PROCEDURES Final Result [facility] * Type and screen (08/09/2022 8:31 PM CALIBRATION LABORATORY TECHNICIAN) Anabelle, indirect Negative [facility] ABO Rh B Positive [facility] Blood 08/09/2022 8:31 PM CALIBRATION LABORATORY TECHNICIAN 08/09/2022 8:38 PM CALIBRATION LABORATORY TECHNICIAN N[facility]ative [facility] - 08/09/2022 9:30 PM CALIBRATION LABORATORY TECHNICIAN Has the patient had Daratumumab or Isatuximab in the past 6 months?->Unknown Gildardo Tovar MD LAB BLOOD BANK TEST ORDERAB LES Final Result [facility] [place] [address] * [place] Fluoroscopy < 1 Hour (08/09/2022 5:12 PM CALIBRATION LABORATORY TECHNICIAN) Narrative [facility] - 08/09/2022 5:14 PM CALIBRATION LABORATORY TECHNICIAN The images from this study are not interpreted by Radiology. ??Please refer to the physician's procedure / OR operative note. Olivier Marion MD IMG FLUOROSCOPY PROCEDURES Final Result [facility] * COVID-19 Coronavirus RNA Nasopharyngeal (08/09/2022 11:12 AM CALIBRATION LABORATORY TECHNICIAN) COVID-19 RNA Negative Negative [facility] Nasopharyngeal 08/09/2022 11 :12 AM CALIBRATION LABORATORY TECHNICIAN 08/09/2022 11:31 AM CALIBRATION LABORATORY TECHNICIAN Narrative [facility] - 08/09/2022 12:09 PM CALIBRATION LABORATORY TECHNICIAN Is the patient experiencing any symptoms consistent with COVID (eg. Fever, cough, shortness of breath)?->No What is the reason for testing?->Bed placement or semi-private room (Rapid) ??Interpretive data: Synonyms for this test include: PCR and NAAT . ??This test is performed using the [employer] Xpert Xpress plus assay. This is a real-time RT-PCR test intended for the qualitative detection of nucleic acid from the SARS-CoV-2. This assay has been reviewed by the FDA for Emergency Use Authorization (EUA). The performance characteristics have been verified by the performing laboratory. Results must be considered in the clinical context and a negative result does not rule out infection. Interpretive data last revised December 28, 2021. ??Interpretive data: Synonyms for this test include: PCR and NAAT . ??This test is performed using the [employer] Xpert Xpress plus assay. This is a real-time RT-PCR test intended for the qualitative detection of nucleic acid from the SARS-CoV-2. This assay has been reviewed by the FDA for Emergency Use Authorization (EUA). The performance characteristics have been verified by the performing laboratory. Results must be considered in the clinical context and a negative result does not rule out infection. Interpretive data last revised December 28, 2021. Olivier Marion MD LAB MICROBIOLOGY - GENERAL ORDERABLES Final Result [facility] Department [place] [address] documented in this encounter Visit Diagnoses Diagnosis Cervical spinal stenosis Spinal stenosis in cervical region Cervical spinal stenosis Spinal stenosis in cervical region Fibromyalgia Unspecified myalgia and myositis Generalized osteoarthritis Generalized osteoarthrosis, involving multiple sites Muscle spasm Spasm of muscle Osteoporosis Unspecified osteoporosis GERD (gastroesophageal reflux disease) Esophageal reflux Depression Depressive disorder, not elsewhere classified S/P cervical discectomy Other postprocedural status Cervical spinal stenosis Spinal stenosis in cervical region documented in this encounter Admitting Diagnoses Diagnosis Spinal stenosis in cervical region Cervical spinal stenosis Spinal stenosis in cervical region S/P cervical discectomy Other postprocedural status documented in this encounter Administered Medications Inactive Administered Medications - up to 3 most recent administrations Medication Order MAR Action Action Date Dose Rate Site acetaminophen (TYLENOL) tablet 1,000 mg 1,000 mg, oral, Every 6 hours scheduled, First dose on Nola 08/10/22 at 1530, Indications: preOPIndications:preOP Given 08/12/2022 12:42 PM CALIBRATION LABORATORY TECHNICIAN 1,000 mg Given 08/12/2022 5:43 AM CALIBRATION LABORATORY TECHNICIAN 1,000 mg Given 08/11/2022 11:16 PM CALIBRATION LABORATORY TECHNICIAN 1,000 mg ARIPiprazole (ABILIFY) tablet 12.5 mg 12.5 mg, oral, Nightly, First dose (after last modification) on Sun08/11/22 at 2100 Given 08/11/2022 8:35 PM CALIBRATION LABORATORY TECHNICIAN 12 .5 mg baclofen (LIORESAL) tablet 10 mg 10 mg, oral, 4 times daily, First dose on Sun08/11/22 at 1200 Given 08/12/2022 12:42 PM CALIBRATION LABORATORY TECHNICIAN 10 mg Given 08/12/2022 8:04 AM CALIBRATION LABORATORY TECHNICIAN 10 mg Given 08/11/2022 8:35 PM CALIBRATION LABORATORY TECHNICIAN 10 mg cyclobenzaprine (FLEXERIL) tablet 5 mg 5 mg, oral, 3 times daily PRN, muscle spasms, Starting on Sun08/10/22 at 1742 Given 08/10/2022 6:16 PM CALIBRATION LABORATORY TECHNICIAN [address] (CYMBALTA) extended release capsule 60 mg 60 mg, oral, 2 times daily, First dose on Sun08/10/22 at 2100, Capsule may be opened and contents mixed with applesauce or apple juice ONLY. Do not crush, chew, cut, dissolve, open or otherwise manipulate tablet/capsule., Indications: Anxiety with DepressionIndications:Anxiety with Depression Given 08/12/2022 8:0 6 AM CALIBRATION LABORATORY TECHNICIAN 60 mg Given 08/11/2022 8:34 PM CALIBRATION LABORATORY TECHNICIAN 60 mg Given 08/11/2022 9:00 AM CALIBRATION LABORATORY TECHNICIAN 60 mg estradiol-norethindrone (ACTIVELLA) 0.5-0.1 mg per tablet 1 tablet 1 tablet, oral, Nightly, First dose on Sun08/10/22 at 2100 Given 08/11/2022 8:34 PM CALIBRATION LABORATORY TECHNICIAN 1 tablet Given 08/10/2022 8:10 PM CALIBRATION LABORATORY TECHNICIAN 1 tablet gabapentin (NEURONTIN) capsule 300 mg 300 mg, oral, 2 times daily, First dose on Sun08/10/22 at 2100 Given 08/12/2022 8:06 AM CALIBRATION LABORATORY TECHNICIAN 300 mg Given 08/11/2022 8:34 PM CALIBRATION LABORATORY TECHNICIAN 300 mg Given 08/11/2022 9:00 AM CALIBRATION LABORATORY TECHNICIAN 300 mg methocarbamoL (ROBAXIN) tablet 1,000 mg 1,000 mg, oral, Every 8 hours, First dose on Sun08/10/22 at 1815 Given 08/12/2022 10:56 AM CALIBRATION LABORATORY TECHNICIAN 1,000 mg Given 08/12/2022 1:24 AM CALIBRATION LABORATORY TECHNICIAN 1,000 mg Given 08/11/2022 5:09 PM CALIBRATION LABORATORY TECHNICIAN 1,000 mg metoprolol XL (TOPROL-XL) extended release tablet 25 mg 25 mg, oral, Daily, First dose on Sun08/10/22 at 1530, Tablets that are scored may be split, but do not crush, chew, dissolve, open or otherwise manipulate tablet/capsule. Given 08/12/2022 8:05 AM CALIBRATION LABORATORY TECHNICIAN 25 m g Given 08/11/2022 9:00 AM CALIBRATION LABORATORY TECHNICIAN 25 mg Given 08/10/2022 3:21 PM CALIBRATION LABORATORY TECHNICIAN 25 mg montelukast (SINGULAIR) tablet 10 mg 10 mg, oral, Nightly, First dose on Sun08/10/22 at 2100, Indications: Seasonal Allergic RhinitisIndications:Seasonal Allergic Rhinitis Given 08/11/2022 8:34 PM CALIBRATION LABORATORY TECHNICIAN 10 mg Given 08/10/2022 8:10 PM CALIBRATION LABORATORY TECHNICIAN 10 mg oxyCODONE (ROXICODONE) tablet 5 mg 5 mg, oral, Every 4 hours PRN, 2nd line for pain, Starting on Sun08/12/22 at 0045, Indications: PainIndications:Pain Given 08/12/2022 2:04 PM CALIBRATION LABORATORY TECHNICIAN 5 mg Given 08/12/2022 5:42 AM CALIBRATION LABORATORY TECHNICIAN 5 mg Given 08/12/2022 1:24 AM CALIBRATION LABORATORY TECHNICIAN 5 mg polyethylene glycol (MIRALAX) packet 17 g 17 g, oral, Daily, First dose on Sun08/11/22 at 1500, Indications: constipationIndications:constipation Given 08/11/2022 3:41 PM CALIBRATION LABORATORY TECHNICIAN 17 g ramelteon (ROZEREM) tablet 8 mg 8 mg, oral, Nightly PRN, sleep, Starting on Sun08/10/22 at 1951, Indications: Sleep-Onset InsomniaIndications:Sleep-Onset Insomnia Given 08/11/2022 8:35 PM CALIBRATION LABORATORY TECHNICIAN 8 m g Given 08/10/2022 8:10 PM CALIBRATION LABORATORY TECHNICIAN 8 mg senna-docusate (PERICOLACE) 8.6-50 mg per tablet 1 tablet 1 tablet, oral, Nightly, First dose on Sun08/10/22 at 2100 Given 08/11/2022 8:35 PM CALIBRATION LABORATORY TECHNICIAN 1 tablet Given 08/10/2022 8:10 PM CALIBRATION LABORATORY TECHNICIAN 1 tablet sodium chloride 0.9% flush 0.5-20 mL 0.5-20 mL, intra-catheter, Every 8 hours scheduled, First dose on Sun08/09/22 at 2345, Flush volume based on line type and size. Given 08/12/2022 4:13 AM CALIBRATION LABORATORY TECHNICIAN 10 mL Given 08/11/2022 8:37 PM CALIBRATION LABORATORY TECHNICIAN 10 mL Given 08/11/2022 5:25 AM CALIBRATION LABORATORY TECHNICIAN 10 mL sodium chloride 0.9% flush 0.5-20 mL 0.5-20 mL, intra-catheter, As needed, line care, Starting on Sun08/09/22 at 2258, Flush volume based on line type and size. Flush before and after each use. sodium chloride 0.9% irrigation As needed, Starting on Sun08/09/22 at 2119, Intra-Op Given 08/09/2022 9:23 PM CALIBRATION LABORATORY TECHNICIAN 3,000 mL Surgical Site Given 08/09/2022 9:19 PM CALIBRATION LABORATORY TECHNICIAN 1,000 mL sodium phosphate - potassium phosphate (K-PHOS NEUTRAL) tablet 500 mg 500 mg, oral, 4 times daily (with meals and nightly), First dose on Sun08/12/22 at 0800, For 4 doses, Each tablet contains elemental phosphorus 250 mg (8 mmol), potassium 45 mg (1.1 mEq), and sodium 298 mg (13 mEq). Given 08/12/2022 12:42 PM CALIBRATION LABORATORY TECHNICIAN 500 mg Given 08/12/2022 8:06 AM CALIBRATION LABORATORY TECHNICIAN 500 mg thrombin-recombinant 5,000 unit topical solution As needed, Starting on Sun08/09/22 at 2119, Intra-Op Given 08/09/2022 9:19 PM CALIBRATION LABORATORY TECHNICIAN 5,000 Units vancomycin (VANCOCIN) solution As needed, Starting on Sun08/09/22 at 2119, Intra-Op Given 08/09/2022 9:19 PM CALIBRATION LABORATORY TECHNICIAN 3,000 mg Surgical Site documented in this encounter Discontinued Medications Medication Sig Discontinue Reason Start Date End Da te acetaminophen ER (TYLENOL) 650 mg 8 hr tabletIndications:Fanny n Take 1,300 mg by mouth 2 (two) times a day as needed Stop Taking at Discharge 07/11/2020 08/12/2022 ruxolitinib (Opzelura) 1.5 % cream Apply 1 application topically 2 (two) times a week Mon and Fri. Stop Taking at Discharge 09/06/2021 08/12/2022 meloxicam (MOBIC) 7.5 mg tablet Take 1 tablet (7.5 mg total) by mouth daily Stop Taking at Discharge 07/18/2022 08/12/2022 methocarbamoL (ROBAXIN) 500 mg tablet Take 2 tablets (1,000 mg total) by mouth 4 (four) times a day Stop Taking at Discharge 07/19/2022 08/12/2022 methocarbamoL (ROBAXIN) 500 mg tablet Take 2 tablets (1,000 mg total) by mouth 4 (four) times a day for 14 days Stop Taking at Discharge 07/25/2022 08/12/2022 mupirocin (BACTROBAN) 2 % ointment Apply a small amount to the inside of each nostril using a clean Q-tip for each nostril twice a day for 5 days prior to surgery. Stop Taking at Discharge 07/26/2022 08/12/2022 HYDROcodone-acetamino phen (NORCO) 7.5-325 mg per tabletIndications:Fanny n Take 1 tablet by mouth 3 (three) times a day As need for pain Stop Taking at Discharge 08/03/2022 08/12/2022 documented as of this encounter Active and Recently Administered Medications Times are shown in CALIBRATION LABORATORY TECHNICIAN. Scheduled Medication Order 08/10/2022 08/11/2022 08/12/2022 acetaminophen (TYLENOL) tablet 1,000 mg 1,000 mg, oral, Every 6 hours scheduled, First dose on [place]ola 08/10/22 at 1530, Indications: preOP 1521 (Given - Provider: Gabriella Camejo RN)2310 (Given - Provider: Fadia Gallo RN) 0548 (Given - Provider: Fadia Gallo RN)1214 (Given - Provider: Hafsa Moore, RUBIO)1709 (Given - Provider: Jazmin Page RN)2316 (Given - Provider: Fadia Gallo RN) 0543 (Given - Provider: Fadia Gallo RN)1242 (Given - Provider: Sandrita Robles RN) ARIPiprazole (ABILIFY) tablet 12.5 mg 12.5 mg, oral, Nightly, First dose (after last modification) on Sun08/11/22 at 2100 2035 (Given - Provider: Fadia Gallo, RUBIO) ARIPiprazole (ABILIFY) tablet 5 mg (CANCELED) 5 mg, oral, Nightly, First dose on Sun08/10/22 at 2099 2010 (Given - Provider: Fadia Gallo, RUBIO) ARIPiprazole (ABILIFY) tablet 7.5 mg (CANCELED) 7.5 mg, oral, Nightly, First dose on Sun08/10/22 at 2099 2009 (Given - Provider: Fadia Gallo, RUBIO) baclofen (LIORESAL) tablet 10 mg 10 mg, oral, 4 times daily, First dose on Sun08/11/22 at 1200 1214 (Given - Provider: Hafsa Moore, RUBIO)1709 (Given - Provider: Jazmin Page RN)2034 (Given - Provider: Fadia Gallo, RUBIO) 0804 (Given - Provider: Sandrita Robles, RUBIO)1242 (Given - Provider: Sandrita Robles RN) ceFAZolin (ANCEF) 1 gram/10 mL in sterile water (premix) 1,000 mg (COMPLETED) 1,000 mg, intravenous, at 200 mL/hr, Administer over 3 Minutes, Every 8 hours, First dose on Sun08/10/22 at 0500, For 3 doses, Beginning 8 hours after last brittany-procedural dose., Indications: Prophylaxis, Surgical 0615 (Given - Provider: Reanna Howard, RUBIO)1430 (Given - Provider: Gabriella Camejo, RUBIO)0 (Given - Provider: Fadia Gallo, RUBIO) chlorhexidine (PERIDEX) 0.12 % solution 15 mL (CANCELED) 15 mL, mouth/throat, 2 times daily, First dose on Sun08/09/22 at 2345, Swab all oral surfaces and suction excess. Discontinue Chlorhexidine Gluconate after patient liberated from mechanical ventilation., Indications: Prevention of Ventilator-Associated Pneumonia 0900 (Given - Provider: Gabriella Camejo, RUBIO) dexAMETHasone (DECADRON) 4 mg/mL injection 10 mg (CANCELED) 10 mg, intravenous, Administer over 2 Minutes, Every 6 hours scheduled, First dose on Nola 08/10/22 at 0000 0615 (Given - Provider: Reanna Howard, RUBIO)1052 (Given - Provider: Gabriella Camejo, RN) DULoxetine DR (CYMBALTA) extended release capsule 60 mg 60 mg, oral, 2 times daily, First dose on Nola 08/10/22 at 2100, Capsule may be opened and contents mixed with applesauce or apple juice ONLY. Do not crush, chew, cut, dissolve, open or otherwise manipulate tablet/capsule., Indications: Anxiety with Depression 2009 (Given - Provider: Fadia Gallo RN) 09 (Given - Provider: Idania Patel, RUBIO)2033 (Given - Provider: Fadia Gallo RN) 08 (Given - Provider: Sandrita Robles, RUBIO) estradiol-norethindrone (ACTIVELLA) 0.5-0.1 mg per tablet 1 tablet 1 tablet, oral, Nightly, First dose on Nola 08/10/22 at 2099 2009 (Given - Provider: Fadia Gallo RN) 2033 (Given - Provider: Fadia Gallo, RUBIO) gabapentin (NEURONTIN) capsule 300 mg 300 mg, oral, 2 times daily, First dose on Nola 08/10/22 at 2099 2009 (Given - Provider: Fadia Gallo RN) 09 (Given - Provider: Idania Patel, RUBIO)2033 (Given - Provider: Fadia Gallo RN) 08 (Given - Provider: Sandrita Robles, RUBIO) magnesium sulfate 2 g/50 mL in water (premix) 2 g (COMPLETED) 2 g, intravenous, Administer over 60 Minutes, Once, On Nola 08/10/22 at 0130, For 1 dose 0118 (New Bag - Provider: Reanna Howard, RUBIO) methocarbamoL (ROBAXIN) tablet 1,000 mg 1,000 mg, oral, Every 8 hours, First dose on Nola 08/10/22 at 1815 1816 (Given - Provider: Gabriella Camejo, RUBIO) 0238 (Given - Provider: Fadia Gallo RN)0900 (Given - Provider: Idania Patel, RUBIO)1709 (Given - Provider: Jazmin Page, RN) 0124 (Given - Provider: Fadia Gallo RN)1056 (Given - Provider: Sandrita Robles, RUBIO) metoprolol XL (TOPROL-XL) extended release tablet 25 mg 25 mg, oral, Daily, First dose on Sun08/10/22 at 1530, Tablets that are scored may be split, but do not crush, chew, dissolve, open or otherwise manipulate tablet/capsule. 1521 (Given - Provider: Gabriella Camejo RN) 0900 (Given - Provider: Idania Patel, RUBIO) 0805 (Given - Provider: Sandrita Robles, RUBIO) montelukast (SINGULAIR) tablet 10 mg 10 mg, oral, Nightly, First dose on Sun08/10/22 at 2100, Indications: Seasonal Allergic Rhinitis 2009 (Given - Provider: Fadia Gallo RN) 203 (Given - Provider: Fadia Gallo RN) polyethylene glycol (MIRALAX) packet 17 g 17 g, oral, Daily, First dose on Sun08/11/22 at 1500, Indications: constipation 1541 (Given - Provider: Jazmin Page RN) 0805 (Not Given - Provider: Sandrita Robles, RUBIO - Reason: Patient/family refused) potassium chloride 20 mEq/260 mL in sodium chloride 0.9% (premix) 20 mEq (COMPLETED) 20 mEq, intravenous, Administer over 2 Hours, Once, On Sun08/10/22 at 0130, For 1 dose, Indications: hypokalemia 0228 (New Bag - Provider: Reanna Howard, RUBIO) potassium chloride ER (KLOR-CON) extended release tablet 40 mEq (COMPLETED) 40 mEq, oral, Every 4 hours, First dose on Sun08/11/22 at 2245, For 2 doses, Total dose = 80 mEq Do not crush, chew, cut, dissolve, open or otherwise manipulate tablet/capsule. 2316 (Given - Provider: Fadia Gallo RN) 0542 (Given - Provider: Fadia Gallo RN) senna-docusate (PERICOLACE) 8.6-50 mg per tablet 1 tablet 1 tablet, oral, Nightly, First dose on N[place] 08/10/22 at 2100 2009 (Given - Provider: Fadia Gallo RN) 2034 (Given - Provider: Fadia Gallo RN) sodium chloride 0.9% flush 0.5-20 mL 0.5-20 mL, intra-catheter, Every 8 hours scheduled, First dose on Sun08/09/22 at 2345, Flush volume based on line type and size. 0431 (Given - Provider: Reanna Howard, RUBIO)1528 (Not Given - Provider: Gabriella Camejo RN - Reason: IV Infusing)2208 (Given - Provider: Fadia Gallo RN) 0525 (Given - Provider: Fadia Gallo RN)1534 (Not Given - Provider: Jazmin Page RN - Reason: Order parameters not met)2036 (Given - Provider: Fadia Gallo RN) 0413 (Given - Provider: Fadia Gallo RN)1607 (Not Given - Provider: Sandrita Robles RN - Reason: Other - Comment: patient being discharged) sodium phosphate - potassium phosphate (K-PHOS NEUTRAL) tablet 500 mg 500 mg, oral, 4 times daily (with meals and nightly), First dose on 08/12/22 at 0800, For 4 doses, Each tablet contains elemental phosphorus 250 mg (8 mmol), potassium 45 mg (1.1 mEq), and sodium 298 mg (13 mEq). 0806 (Given - Provider: Sandrita Robles RN)1242 (Given - Provider: Sandrita Robles RN) vancomycin 1,000 mg/200 mL in sodium chloride 0.9% (premix) 1,000 mg (COMPLETED) 1,000 mg, intravenous, Administer over 60 Minutes, Once, On Nola 08/10/22 at 0130, For 1 dose, Administer 12 hours after last pre-operative dose., Indications: Prophylaxis, Surgical 0118 (New Bag - Provider: Reanna Howard RN) Continuous Medication Order 08/10/2022 08/11/2022 08/12/2022 dextrose 5% and Lactated Ringer's infusion (CANCELED) 25 mL/hr, intravenous, Continuous, Starting on Sun08/09/22 at 2345 0700 (Rate/Dose Verify - Provider: Gabriella Camejo RN)0800 (Rate/Dose Verify - Provider: Gabriella Camejo RN)0900 (Rate/Dose Verify - Provider: Gabriella Camejo RN)1000 (Rate/Dose Verify - Provider: Gabriella Camejo RN)1100 (Rate/Dose Verify - Provider: Gabriella Camejo RN)1200 (Rate/Dose Verify - Provider: Gabriella Camejo RN)1300 (Rate/Dose Verify - Provider: Gabriella Camejo RN)1400 (Rate/Dose Verify - Provider: Gabriella Camejo RN)1500 (Rate/Dose Verify - Provider: Gabriella Camejo RN)1600 (Rate/Dose Verify - Provider: Gabriella Camejo RN)1700 (Rate/Dose Verify - Provider: Gabriella Camejo RN)1800 (Rate/Dose Verify - Provider: Gabriella Camejo RN)1900 (Stopped - Provider: Fadia Gallo RN)2011 (Stopped - Provider: Fadia Gallo RN) fentaNYL 2500 mcg/50 mL cassette/syringe (premix) (CANCELED) 0-400 mcg/hr (0-8 mL/hr), intravenous, Titrated, Starting on Sun08/09/22 at 2345, CONTINUE current rate if pain control at goal - less than 2 PRN breakthrough pain doses (not painful stimuli doses) in previous 4 hours. INCREASE infusion per titration instructions if 2 or more PRN breakthrough pain doses (not painful stimuli doses) in previous 4 hours until pain score goal reached. DECREASE infusion per titration instructions if pain controlled but oversedated compared to goal. Discontinue when patient extubated., Titration instructions: Titrate, Initial dose: 25 mcg/hr, Titrate: Up/Down, Titrate by: 25 mcg/hr, Every: 30 minutes, Goal: Pain, Pain Goal: 0, 1, 2, 3, 4, 5, 6, Indications: Pain in Intubated Patients 0000 (Rate/Dose Verify - Provider: Reanna Howard RN)0100 (Rate/Dose Verify - Provider: Reanna Howard RN)0107 (Rate/Dose Change - Provider: Reanna Howard RN)0200 (Rate/Dose Verify - Provider: Reanna Howard RN)0300 (Rate/Dose Verify - Provider: Reanna Howard RN)0400 (Rate/Dose Verify - Provider: Reanna Howard RN)0432 (Rate/Dose Change - Provider: Reanna Howard RN)0500 (Rate/Dose Verify - Provider: Reanna Howard RN) fentaNYL 2500 mcg/50 mL cassette/syringe (premix) (CANCELED) 0-400 mcg/hr (0-8 mL/hr), intravenous, Titrated, Starting on Nola 08/10/22 at 0915, CONTINUE current rate if pain control at goal - less than 2 PRN breakthrough pain doses (not painful stimuli doses) in previous 4 hours. INCREASE infusion per titration instructions if 2 or more PRN breakthrough pain doses (not painful stimuli doses) in previous 4 hours until pain score goal reached. DECREASE infusion per titration instructions if pain controlled but oversedated compared to goal. Discontinue when patient extubated., Titration instructions: Titrate, Initial dose: 25 mcg/hr, Titrate: Up/Down, Titrate by: 25 mcg/hr, Every: 30 minutes, Goal: Pain, Pain Goal: 1, 2, 3, 4, Indications: Pain in Intubated Patients 0700 (Rate/Dose Verify - Provider: Gabriella Camejo RN)0800 (Rate/Dose Verify - Provider: Gabriella Camejo RN)0900 (Rate/Dose Verify - Provider: Gabriella Camejo RN)1000 (Rate/Dose Verify - Provider: Gabriella Camejo RN)1100 (Rate/Dose Change - Provider: Gabriella Camejo RN)1200 (Rate/Dose Verify - Provider: Gabriella Camejo RN)1215 (Rate/Dose Change - Provider: Gabriella Camejo RN)1300 (Rate/Dose Verify - Provider: Gabriella Camejo RN)1400 (Rate/Dose Verify - Provider: Gabriella Camejo RN)1529 (Stopped (Dual Sign) - Provider: Gabriella Camejo RN) phenylephrine in 0.9% sodium chloride (ALEXIA-SYNEPHRINE) 25,000 mcg/250 mL (100 mcg/mL) infusion (premix) solution (CANCELED) 0-4 mcg/kg/min ? 70.3 kg (0-168.72 mL/hr), 100 mcg/mL, intravenous, Titrated, Starting on Sun08/09/22 at 2345, Until Nola 08/10/22 at 0844, Indications: Hypotension, Initial rate: 0.5 mcg/kg/min, Titrate: Up/Down, Titrate by: 0.1 mcg/kg/min, Every: 2 minutes, Goal: MAP, MAP Goal: 65-75 mmHg, Protect from light, Routine 0000 (Rate/Dose Verify - Provider: Reanna Howard RN)0013 (Rate/Dose Change - Provider: Reanna Howard RN)0100 (Rate/Dose Verify - Provider: Reanna Howard RN)0107 (Rate/Dose Change - Provider: Reanna Howard RN)0119 (Stopped - Provider: Reanna Howard RN) propofol (DIPRIVAN) 10 mg/mL infusion (CANCELED) 0-50 mcg/kg/min ? 70.3 kg (0-21.09 mL/hr), 10 mg/mL, intravenous, Titrated, Starting on Sun08/09/22 at 2345, Until Nola 08/10/22 at 1458, Indications: Sedation in Intubated Patients, Titration instructions: Titrate, Initial dose: 20 mcg/kg/min, Titrate: Up/Down, Titrate by: 10 mcg/kg/min, Every: 10 minutes, Goal: RASS, RASS Goal: 0, -1, -2, Discontinue when patient extubated. Room temperature only, Routine 0000 (Rate/Dose Verify - Provider: Reanna Howard RN)0100 (Rate/Dose Verify - Provider: Reanna Howard RN)0119 (Rate/Dose Change - Provider: Reanna Howard RN)0124 (New Bag - Provider: Reanna Howard RN)0200 (Rate/Dose Verify - Provider: Reanna Howard RN)0228 (New Bag - Provider: Reanna Howard RN)0300 (Rate/Dose Verify - Provider: Reanna Howard RN)0400 (Rate/Dose Verify - Provider: Reanna Howard RN)0500 (Rate/Dose Verify - Provider: Reanna Howard RN)0700 (Rate/Dose Verify - Provider: Gabriella Camejo RN)0800 (Rate/Dose Verify - Provider: Gabriella Camejo, RN)0900 (Rate/Dose Verify - Provider: Nahed Kaplan, CHARISSE)1000 (Rate/Dose Verify - Provider: Gabriella Camejo, RN)1053 (New Bag - Provider: Gabriella Camejo RN)1100 (Rate/Dose Verify - Provider: Gabriella Camejo, RN)1200 (Rate/Dose Verify - Provider: Gabriella Camejo, RN)1215 (Stopped - Provider: Gabriella Camejo RN) PRN Medication Order 08/10/2022 08/11/2022 08/12/2022 cyclobenzaprine (FLEXERIL) tablet 5 mg 5 mg, oral, 3 times daily PRN, muscle spasms, Starting on Nola 08/10/22 at 1742 1816 (Given - Provider: Gabriella Camejo RN) fentaNYL (SUBLIMAZE) bolus from bag 50 mcg (CANCELED) 50 mcg, intravenous, Every 15 min PRN, breakthrough pain, Starting on 08/09/22 at 2258, Discontinue when patient extubated. ??, Indications: Pain 0121 (Bolus from Bag - Provider: Reanna Howard RN)0433 (Bolus from Bag - Provider: Reanna Howard RN) fentaNYL (SUBLIMAZE) bolus from bag 50 mcg (CANCELED) 50 mcg, intravenous, Every 15 min PRN, painful stimuli include turning, bathing, nasotracheal suctioning, physical therapy, dressing changes, and intravenous catheter and invasive line placement., Starting on Sun08/09/22 at 2258, Discontinue when patient extubated. ??, Indications: Pain 0620 (Bolus from Bag - Provider: Reanna Howard RN) oxyCODONE (ROXICODONE) tablet 10 mg (CANCELED) 10 mg, oral, Every 3 hours PRN, 2nd line for pain, Starting on Nola 08/10/22 at 2331, Indications: Pain 0548 (Given - Provider: Fadia Gallo RN) oxyCODONE (ROXICODONE) tablet 5 mg (CANCELED) 5 mg, oral, Every 4 hours PRN, 1st line for pain, Starting on Nola 08/10/22 at 1458, Indications: Pain 1521 (Given - Provider: Gabriella Camejo RN) oxyCODONE (ROXICODONE) tablet 5 mg (CANCELED) 5 mg, oral, Every 3 hours PRN, 2nd line for pain, Starting on Nola 08/10/22 at 1900, Indications: Pain 1952 (Given - Provider: Fadia Gallo RN)2310 (Given - Provider: Fadia Gallo RN) oxyCODONE (ROXICODONE) tablet 5 mg (CANCELED) 5 mg, oral, Every 3 hours PRN, 2nd line for pain, Starting on Sun08/11/22 at 1019, Indications: Pain 2034 (Given - Provider: Fadia Gallo RN) oxyCODONE (ROXICODONE) tablet 5 mg 5 mg, oral, Every 4 hours PRN, 2nd line for pain, Starting on 08/12/22 at 0045, Indications: Pain 0124 (Given - Provider: Fadia Gallo RN)0542 (Given - Provider: Fadia Gallo RN)1404 (Given - Provider: Danita Marie RN) ramelteon (ROZEREM) tablet 8 mg 8 mg, oral, Nightly PRN, sleep, Starting on Nola 08/10/22 at 1951, Indications: Sleep-Onset Insomnia 2009 (Given - Provider: Fadia Gallo RN) 2034 (Given - Provider: Fadia Gallo RN) sodium chloride 0.9% flush 0.5-20 mL 0.5-20 mL, intra-catheter, As needed, line care, Starting on Sun08/09/22 at 2258, Flush volume based on line type and size. Flush before and after each use. documented in this encounter Orders Medications Ordered That Thai ht Not Have Been Administered Count Last Ordered Date First Ordered Date oxyCODONE (ROXICODONE) tablet 5 mg 4 202208/10/2022 ARIPiprazole (ABILIFY) tablet 12.5 mg 1 baclofen (LIORESAL) tablet 10 mg 1 08/11/19 23 bisacodyL (DULCOLAX) suppository 10 mg 1 polyethylene glycol (MIRALAX) packet 17 g 3 08/11/2022 08/10/2022 potassium chloride 40 mEq/52 0 mL in sodium chloride 0.9% (premix) 40 mEq 1 08/11/2022 potassium chloride ER (KLOR- CON) extended release tablet 40 mEq 1 08/11/2022 sodium phosphate - potassium phosphate (K-PHOS NEUTRAL) tablet 500 mg 1 08/11/2022 acetaminophen (TYLENOL) tablet 1,000 mg 3 0 08/10/2022 08/09/2022 ARIPiprazole (ABILIFY) tablet 5 mg 1 2022 ARIPiprazole (ABILIFY) tablet 7.5 mg 1 07/30 cyclobenzaprine (FLEXERIL) tablet [address] (CYMBALTA) ext ended release capsule 60 mg 1 08/10/2022 estradiol-norethindrone (ACT IVELLA) 0.5-0.1 mg per tablet 1 tablet 1 08/10/2022 fentaNYL 2500 mcg/50 mL yonathan ette/syringe (premix) 2 08/10/2022 08/09/2022 gabapentin (NEURONTIN) capsule 300 mg 1 06/2023 HYDROmorphone (DILAUDID) injection 0.2 mg 1 08/10/2022 magnesium sulfate 2 g/50 mL in water (premix) 2 g 1 08/10/2022 methocarbamoL (ROBAXIN) tablet 1,000 mg 1 0 08/10/2022 metoprolol XL (TOPROL-XL) ex tended release tablet 25 mg 1 08/10/2022 montelukast (SINGULAIR) tablet 10 mg 1 07/30 oxyCODONE (ROXICODONE) tablet 10 mg 1 08/10 potassium chloride 20 mEq/26 0 mL in sodium chloride 0.9% (premix) 20 mEq 1 08/10/2022 ramelteon (ROZEREM) tablet 8 mg senna-docusate (PERICOLACE) 8.6-50 mg per tablet 1 tablet 1 08/10/2022 albuterol 2.5 mg/0.5 mL nebu lizer solution 2.5 mg 1 08/09/2022 bupivacaine-EPINEPHrine (MAR ROSENDA with EPI) 0.25 %-1:200,000 preservative free injection 1 08/09/2022 Carrier Fluids for Secondary Infusion - 0.9% Sodium Chloride 2 08/09/2022 ceFAZolin (ANCEF) 1 gram/10 mL in sterile water (premix) 1,000 mg 1 08/09/2022 ceFAZolin (ANCEF) 2,000 mg/2 0 mL in sterile water (premix) 2,000 mg 1 08/09/2022 chlorhexidine (PERIDEX) 0.12 % solution 15 mL 1 08/09/2022 dexAMETHasone (DECADRON) 4 m g/mL injection 10 mg 08/09/2022 dexAMETHasone (DECADRON) 4 m g/mL injection 8 mg 08/09/2022 dextrose (D10W) 10% bolus 250 mL 2 08/09/19 dextrose 5% and Lactated Ringer's infusion 08/09/2022 dextrose 5% and sodium chlor semaj 0.9% infusion (premix) 08/09/2022 dextrose gel in packet 15 g 2 08/09/2022 diphenhydrAMINE (BENADRYL) i njection 12.5 mg 08/09/2022 fentaNYL (SUBLIMAZE) bolus from bag 50 mcg 2 08/09/2022 gabapentin (NEURONTIN) capsule 600 mg 1 05/2023 glucagon injection 1 mg 2 08/09/2022 HYDROmorphone (DILAUDID) injection 0.5 mg 2 08/09/2022 insulin lispro (HumaLOG, ADM ELOG) 100 unit/mL injection 1-3 Units 1 08/09/2022 insulin regular bolus from bag 4-10 Units 08/09/2022 insulin regular bolus from bag 4-6 Units 08/09/2022 insulin regular in 0.9% sodi um chloride (MYXREDLIN) 100 unit/100 mL (1 unit/mL) infusion (premix) 1 08/09/2022 Lactated Ringer's (LR) bolus 500 mL 1 08/09 Lactated Ringer's (LR) infusion 1 3 naloxone (NARCAN) 0.4 mg/mL injection 0.04-0.4 mg 1 08/09/2022 ondansetron (ZOFRAN) injection 4 mg 1 08/09 phenylephrine in 0.9% sodium chloride (ALEXIA-SYNEPHRINE) 25,000 mcg/250 mL (100 mcg/mL) infusion (premix) solution 2 08/09/2022 prochlorperazine (COMPAZINE) injection 5 mg 1 08/09/2022 propofol (DIPRIVAN) 10 mg/mL infusion 2 05/2023 sodium chloride 0.9% flush 0.5-20 mL 3 07/30 sodium chloride 0.9% irrigation 1 3 thrombin-recombinant 5,000 u nit topical solution 1 08/09/2022 vancomycin 1,000 mg/200 mL i n sodium chloride 0.9% (premix) 1,000 mg 2 08/09/2022 Lab Orders Without Results Count Last Ordered D ate First Ordered Date POCT GLUCOSE DEVICE 11 08/10/2022 08/09/19 23 Imaging Orders Without Results Count Last Order ed Date First Ordered Date EXTUBATION 1 08/10/2022 Nursing Count Last Ordered Date First Orde red Date BUNDY CATHETER - DISCONTINUE 2 08/11/2022 WEIGH PATIENT 1 08/09/2022 Admission Count Last Ordered Date First Orde red Date ADMIT TO INPATIENT 1 08/09/2022 Transfer Count Last Ordered Date First Orde red Date TRANSFER PATIENT TO NEW UNIT 1 08/10/2022 Discharge Count Last Ordered Date First Orde red Date DISCHARGE PATIENT 1 08/12/2022 CORE MEASURES Count Last Ordered Date First Ord ered Date REASON FOR NO VTE PROPHYLAXI S - HOSPITAL ADMISSION - MEDICATIONS 1 08/09/2022 Case Request Count Last Ordered Date First Orde red Date CASE REQUEST OPERATING ROOM 1 08/09/2022 documented in this encounter Care Teams Icu Registered Nurse Relationship Specialty Start Date End Date Rohan Rothman MD [address] [facility] [address] [place] [address] PCP - General 07/20/20 05/12/24 Reanna Polanco RN Registered Nurse 07/07/19 documented as of this encounter
--- OUTSIDE RECORDS SUMMARY | 2024-07-28 01:05 | XMS_ITS | Encounter Summary ---
Author Organization [facility] Address [address] [place] [address] Phone Care Team Providers Care Lumber Bearer Name Role Phone Reanna Polanco RN [facility] Rohan Salvador MD Primary Care Provider Reason for Referral * Consultation (Routine) - Closed Specialty Diagnoses / Procedures Referred By Contac t Referred To Contact Otolaryngology Diagnoses Spinal stenosis in cervical region Cervical spondylosis with myelopathy Olivier Marion MD [address] [place] [address] Phone: tel: fax: [facility] (All Locations) Referral ID Status Reason Start Date Expiration Date V isits Requested Visits Authorized [id number] Closed Specialty Services Required 08/24/2022 09/23/2023 99 99 Question Answer Please select the performing region: [facility] (All Locations) [[id number]] # of visits: 1 Comments Eval for vocal cord paralysis following ACDF ONICA MAKER Encounter Details Date Type Department Care Team (Late st Contact Info) Description 08/24/2022 11:20 AM HARMONICA MAKER Office Visit [facility] Orthopaedic Surgery [facility] [address] [place] [address] [place] [address] Olivier Marion MD [address] [place] [address] Spinal stenosis in cervical region (Primary Dx); Cervical spondylosis with myelopathy; Fusion of spine of cervical region Social [...] on file Legal Sex Female 2:03 AM HARMONICA MAKER Gender Identity Female 08/26/2020 6:26 AM HARMONICA MAKER Sexual Orientation Straight 08/26/2020 6: 26 AM HARMONICA MAKER documented as of this encounter Last Filed Vital Signs Vital Sign Reading Time Taken Comments Blood Pressure - - Pulse - - Temperature - - Respiratory Rate - - Oxygen Saturation - - Inhaled Oxygen Concentration - - Weight 67.6 kg (149 lb) 08/24/2022 10:55 AM HARMONICA MAKER Height 170.2 cm (5' 7 ) 08/24/2022 10:55 AM HARMONICA MAKER Body Mass Index 23.34 08/24/2022 10:55 AM HARMONICA MAKER documented in this encounter Progress Notes * Olivier Marion MD - 08/24/2022 11:20 AM CST Images from the original note were not included. Post Op Note Reason for Visit: Status post Anterior cervical decompression with removal of posterior osteophytes C3-C4 Anterior cervical decompression with removal of posterior osteophytes C4-C5 Anterior cervical decompression with removal of posterior osteophytes C5-C6 Anterior cervical fusion with allograft C3-C6 Anterior cervical instrumentation with Biomet Maxan Plate C3-C6 on 08/09/2022 With hematoma evacuation . History of Present Illness: Ms. Santiago returns today approximately 2 weeks status post anterior cervical decompression and fusion postoperatively she developed a hematoma that night that went back for emergent surgery for irrigation debridement of the hematoma overall she feels she is doing okay are not really having much neck pain after the surgery when she got home she did develop some worsening back pain she currently has been able to eat and swallow liquids into up the food finally but noticed swallowing issues as well as noticing more of a raspy and loss of voice more on the collar without any issues and making good progress Major Findings: Ht 170.2 cm (5' 7 ) Wt 67.6 kg (149 lb) BMI 23.34 kg/m?? On the physical exam, the patient is sitting in a chair in no acute distress. Alert and oriented toperson, place, and time. She is able to stand unassisted and has a GAIT ABNORMALITIES:01068} gait with a good overall coronal and sagittal balance. Normal reflexes. Intact sensation to light touch inall major dermatomes. The incision ishealing well Upper Extremity Strength: Deltoid Biceps Triceps WristEx WristFlex Medical Illustrator Right 5 5 5 5 5 5 Left 5 5 5 5 5 5 Lower Extremity Strength: Iliopsoas Quadriceps Hamstrings Tibialis Anterior EHL Gastroc Right 5 5 5 5 5 5 Left 5 5 5 5 5 5 Promis PROMIS 08/24/2022 07/20/2022 07/19/2022 07/06/2022 06/05/2022 Pain Interference 70.2 66.9 70.3 70.5 61.4 Physical Function V2.0 27.8 26.9 27.9 28.8 31.1 Anxiety V1.0 45.7 46.7 48.7 47.9 45.9 Depression 43.6 48.1 48.2 45.8 49.9 Assessments: Ms. Santiago is doing okay 2 week(s) post doing ok Discussion: This time she should continue wearing the collar for 4 more weeks she will come out of what she eats and when she has support of the back of her neck and sleeping. Refilled her hydrocodone today as well she is taking 7.5325 every 6 hours. In regards to her voice I would have her see ENT to assess her vocal cords they could also assess for any concerns for any swallowing issues at this time. I will see her back in 4 weeks she will continue with the restrictions minimize motion of the neck with no lifting more than 20 lb she has problems questions concerns before the next visit she will give usa call or follow up at that point The patients questions were answered in detail. ONICA MAKER documented in this encounter Plan of Treatment Scheduled Referrals Name Type Priority Associated Diagnoses Orde r Schedule Ambulatory referral to ENT Outpatient Referral Routine Spinal stenosis in cervical region Cervical spondylosis with myelopathy Expected: 09/07/2022 (Approximate), Expires: 08/24/2023 documented as of this encounter Goals Goal Patient Goal Type Associated Problems Recent Progress Patient-Stated? Author CCM Chronic Pain Care Plan Chronic Care Management Improving( 10:05 AM HARMONICA MAKER) No Bessy Mancuso RN Note: Problem: Chronic Pain Goals: 1. Minimize further functional decline 2. Maximize quality of life 3. Control pain Strategies: - Activity/exercise program recommendation - Conservative stepwise pain medicine strategy with multi-disciplinary approach - Recommend healthy lifestyle strategies and compensatory methods as needed documented as of this encounter Visit Diagnoses Diagnosis Spinal stenosis in cervical region- Primary Cervical spondylosis with myelopathy Fusion of spine of cervical region documented in this encounter Care Teams Lumber Bearer Relationship Specialty Start Date End Date Rohan Rothman MD [address] [facility] [address] [place] [address] PCP - General 07/20/20 05/12/24 Reanna Polanco RN Registered Nurse 07/07/19 documented as of this encounter
--- OUTSIDE RECORDS SUMMARY | 2024-07-28 01:05 | XMS_ITS | Encounter Summary ---
Author Organization [facility] Address [address] [place] [address] Phone Care Team Providers Care Equipment Or Machinery Cleaner Name Role Phone Reanna Polanco RN [facility] Rohan Salvador MD Primary Care Provider Reason for Visit * Reason Comments Dysphagia Hoarseness * Consultation (Routine) - Closed Specialty Diagnoses / Procedures Referred By Hadley cluod Referred To Contact Otolaryngology Diagnoses Spinal stenosis in cervical region Cervical spondylosis with myelopathy Olivier Marion MD [address] [facility] [place] [address] Phone: tel: fax: [facility] (All Locations) Referral ID Status Reason Start Date Expiration Date V isits Requested Visits Authorized [id number] Closed Specialty Services Required 08/24/2022 09/23/2023 99 [phone] Encounter Details Date Type Department Care Team (Late st Contact Info) Description 09/14/2022 2:20 PM AUTOMATIC TELLER MACHINE SERVICER Office Visit [facility] [address] [facility] 11th [place] [address] [place] [address] Moncho Rendon MD [address] [facility] [address] [place] [address] Dysphagia, oropharyngeal (Primary Dx); Spinal stenosis in cervical region; Cervical spondylosis with myelopathy Social History Tobacco Use Types Packs/Day Years [...] on file Legal Sex Female 2:03 AM AUTOMATIC TELLER MACHINE SERVICER Gender Identity Female 08/26/2020 6:26 AM AUTOMATIC TELLER MACHINE SERVICER Sexual Orientation Straight 08/26/2020 6: 26 AM AUTOMATIC TELLER MACHINE SERVICER documented as of this encounter Last Filed Vital Signs Vital Sign Reading Time Taken Comments Blood Pressure 144/83 09/14/2022 2:05 PM AUTOMATIC TELLER MACHINE SERVICER Pulse 92 09/14/2022 2:05 PM AUTOMATIC TELLER MACHINE SERVICER Temperature - - Respiratory Rate - - Oxygen Saturation - - Inhaled Oxygen Concentration - - Weight 66.7 kg (147 lb) 09/14/2022 2:05 PM AUTOMATIC TELLER MACHINE SERVICER Height 172.7 cm (5' 8 ) 09/14/2022 2:05 PM AUTOMATIC TELLER MACHINE SERVICER Body Mass Index 22.35 09/14/2022 2:05 PM AUTOMATIC TELLER MACHINE SERVICER documented in this encounter Progress Notes * Moncho Rendon MD - 09/14/2022 2:20 PM CST Images from the original note were not included. [facility] Department of Otolaryngology - Head & Neck Surgery [facility] Consultation Report 09/14/2022 Moncho Rendon MD Consultation Requested By: Rohan Rothman,* Primary Care Provider: Rohan Rothman MD Name: Annette Santiago Date of : 1960 Chief Complaint Patient presents with Dysphagia Hoarseness Subjective HISTORY OF PRESENT ILLNESS: Thank you for asking me to evaluate Ms. Santiago in the [facility]. The patient is unaccompanied. Ms. Santiago is referred for evaluation of voice changes after cervical spine surgery which has beenpresent for about 1 month(s). Her initial surgery was on 08/09/2022. She also had a returned to OR for evacuation of hematoma. That was performed in the same day. At her follow up appointment 2 weeksafter surgery, she reported continued voice weakness to her spine surgeon. He recommended that she be evaluated here at the voice and airway center. Today, she reports continued difficulty with her swallowing and her voice. Her swallow difficulty is mostly with solid foods. She is adjusted her diet to eat foods that are soft, with slimy textures.These seemed to go down more easily. She also occasionally has some trouble with thin liquids. She does not cough or choke on her thin liquids. She feels like her voice might be improving just slightly. She describes it as raspy and weak. She confirms that her swallowing and her voice were completely normal prior to surgery. Past Medical History: Diagnosis Date Anxiety Arthritis Back pain Chronic pain Chronic pain Depression Fibromyalgia Fibromyalgia, primary GERD (gastroesophageal reflux disease) Low back pain Low back pain Migraines Neck pain Osteoporosis Personal history of other diseases of the musculoskeletal system and connective tissue History of osteoporosis - (Added by TW Conv) Tachycardia Urinary tract infection Past Surgical History: Procedure Laterality Date CATARACT EXTRACTION right eye only HYSTEROSCOPY W/ ENDOMETRIAL ABLATION OR UNLISTED LAPAROSCOPY PX INTESTINE XCP RECTUM Intestinal Laparoscopy - (Added by TW Conv) SPINE SURGERY upcoming w/Dr. Marion Allergies Allergen Reactions Decongestant Capsule Other (See comments) bladder spasms with decongestants Current Outpatient Medications: acetaminophen 500 mg capsule, Take 2 capsules (1,000 mg total) by mouth every 6 (six) hours, Disp: 30 tablet, Rfl: alendronate (FOSAMAX) 70 mg tablet, Take 70 mg by mouth once a week Sunday, Disp: , Rfl: ALPHA LIPOIC ACID ORAL, Take 550 mg by mouth every morning, Disp: , Rfl: ARIPiprazole (ABILIFY) 15 mg tablet, Take 7.5 mg by mouth nightly Total 12.5 ayt HS, Disp: , Rfl: ARIPiprazole (ABILIFY) 5 mg tablet, Take 5 mg by mouth nightly Total 12.5 mg, Disp: , Rfl: ascorbic acid (VITAMIN C) 1,000 mg tablet, Take 1,000 mg by mouth every morning, Disp: , Rfl: baclofen (LIORESAL) 10 mg tablet, Take 2 tablets (20 mg total) by mouth 4 (four) times a day Takes 1-2 tabs QID (Patient taking differently: Take 20 mg by mouth 4 (four) times a day Takes 1-2 tabs QID), Disp: 240 tablet, Rfl: 11 CALCIUM CARBONATE-VITAMIN D3 ORAL, Take 1 tablet by mouth 2 (two) times a day Calcium Carbonate 1,200 mg with Vitamin D 1,000 international units take 2 daily., Disp: , Rfl: cannabidiol, CBD, (EPIDIOLEX) 100 mg/mL solution, Take 5 mg/kg by mouth 2 (two) times a day as needed CBD, Disp: , Rfl: cetirizine 10 mg capsule, Take 10 mg by mouth nightly, Disp: , Rfl: DULoxetine DR (CYMBALTA) 60 mg capsule, Take 60 mg by mouth 2 (two) times a day, Disp: , Rfl: estradiol-norethindrone (ACTIVELLA) 1-0.5 mg per tablet, Take 1 tablet by mouth nightly, Disp: , Rfl: gabapentin (NEURONTIN) 300 mg capsule, Take 1 capsule (300 mg total) by mouth 2 (two) times a day, Disp: 90 capsule, Rfl: 11 HYDROcodone-acetaminophen (NORCO) 7.5-325 mg per tablet, Take 1 tablet by mouth every 4 (four) hours as needed for pain, Disp: 90 tablet, Rfl: 0 methocarbamoL 1,000 mg tablet, Take 1,000 mg by mouth every 8 (eight) hours, Disp: 90 tablet, Rfl: 0 metoprolol XL (TOPROL-XL) 25 mg extended release tablet, Take 25 mg by mouth daily, Disp: , Rfl: montelukast (SINGULAIR) 10 mg tablet, Take 10 mg by mouth nightly, Disp: , Rfl: senna-docusate (PERICOLACE) 8.6-50 mg, Take 1 tablet by mouth nightly, Disp: 60 tablet, Rfl: 0 zolpidem (AMBIEN) 10 mg tablet, Take 10 mg by mouth nightly, Disp: , Rfl: Social History Tobacco Use Smoking status: Former Packs/day: 1.00 Years: 5.00 Pack years: 5.00 Types: Cigarettes Start date: 11/27/1978 Quit date: 09/28/1983 Years since quittin.9 Smokeless tobacco: Never Substance and Sexual Activity [...] Depression Mother's Brother Anesthesia problems Neg Hx REVIEW OF SYSTEMS A complete review of systems was completed by the patient on the Patient History Form and reviewed with the patient during the visit. The patient intake form, including the past medical history, past surgical history, social history,family history, medications, allergies, and review of systems was reviewed in its entirety and was signed and dated by myself. The Patient History Form can be found in the electronic medical record as a scanned document. PATIENT REPORTED OUTCOMES: GFI: 16 VHI-10: 29 VCI: 26 RSI: 21 Objective PHYSICAL EXAM: Constitutional: Vitals BP 144/83 Pulse 92 Ht 172.7 cm (5' 8 ) Wt 66.7 kg (147 lb) BMI 22.35 kg/m?? General: Well-developed, well-nourished in no apparent distress. Appropriate affect. Voice: perceptual evaluation of voice reveals overall moderate dysphonia; mild roughness, moderate breathiness, moderate weakness, and mild strain. The pitch is within expectations for age and gender. There is not evidence of tremor. Head and Face: Normocephalic, atraumatic. Skin: No cutaneous lesions of the face or neck. Neurologic: Cranial nerves II through XII are grossly intact. Eyes: Pupils are equal, round, and reactive to light and accommodation. Extraocular muscles are intact. No notable scleral icterus or injection. Ears: Auricles are unremarkable bilaterally. EACs are clear. Tympanic membranes are intact. There is no evidence of middle ear effusion. Nose: Dorsum is midline. No masses or polyps visualized on anterior rhinoscopy. No drainage or discharge. Septum: midline Oral Cavity/Oropharynx: No visible mucosal lesions. Tongue protrudes midline, palate elevates symmetrically. Floor of mouth is pink and soft. No abnormalities of the floor of mouth, oral tongue, or oropharynx. Neck: No evidence of lymphadenopathy, masses or tenderness. There is not excessive tension in the cervical musculature. There is not excessive tenderness in the cervical musculature. Healing incisionat the base of the left neck Endocrine: No palpable abnormalities of the thyroid gland. Cardiovascular: Extremities are warm and well perfused. Pulmonary: Normal quiet breathing. No respiratory distress, stridor, or wheeze. PROCEDURE PERFORMED: Procedure: Flexible transnasal laryngeal videostroboscopy In a separately identifiable procedure to better assess the larynx based on the history and other exam findings, the patient underwent flexible transnasal laryngoscopy via the right side of the nose.Tetracaine 1% and oxymetazoline 0.025% (1:1) was applied [...] findings were noted: - General: mucus consistency thin - Nasopharynx: no purulence or polyps - Hypopharynx: no lesions; no erythema - moderate edema of the postcricoid mucosa, just above the esophageal inlet - Supraglottis: no lesions; no erythema or edema; mild constriction during phonation - Vocal Fold Mobility: left side immobile, in a lateral position - Vocal Fold Anatomy: normal color; no lesions; no edema - Mucosal wave pattern: Mucosal wave fully intact bilaterally - Phase symmetry: no vertical phase asymmetry - Closure: incomplete closure with anterior gap - Subglottis: subglottis patent without evidence of stenosis DATA REVIEWED: 09/14/2022 Lab Tests: Recent CBC with mild anemia, otherwise normal. Recent hemoglobin A1c within normal limits. Pathology Reports: no Radiology Reports: CT of the cervical spine shows degenerative changes in the cervical spine. She has severe neuroforaminal stenosis at C3-C4. Also disease at C4-C5. This was preoperative. Old Records/Discussion with MD: Reviewed referring provider note(s) and other clinical encounters relevant to this visit. Assessment/Plan Annette Santiago is a 62 y.o. referred for evaluation of dysphonia and dysphagia present for about1 month after spine surgery. Evaluation including laryngeal videostroboscopy was significant for left-sided vocal fold immobility. She also has some postcricoid mucosal edema near the esophageal inlet. The findings were explained in detail to the patient. For her dysphagia, I discussed the exam finding of edema in the hypopharynx. I believe that her postoperative edema is continuing to resolve and that she will continue to improve. Also, I expect thatshe will find improvement when she is no longer immobilized in a cervical collar. Presuming that she does not have full resolution of symptoms spontaneously, I recommended that we obtain a modified ba rium swallow study in about a month. For dysphonia, I counseled that her exam was consistent with a left-sided vocal fold immobility, most likely a paralysis. I discussed that these type of injuries can be either temporary or permanent depending on the degree of the initial nerve injury, which is impossible to know. We will continue to monitor for resolution over time. I counseled that recovery can take up to 12 months but that after 12 months, the recovery is considered complete and any residual immobility or paralysis is considered permanent. While we await hopeful spontaneous recovery, I offered her temporary injection medialization for alleviation of symptoms. Injection medialization can be performed either awake or under general anesthesia. The expected benefit is increased volume, decreased breathiness, and increased ease of use of the voice. It also carries risks including epistaxis, discomfort, pain, and worsening of voice. She would like to wait several more weeks for any initial spontaneous recovery and then likely pursue an awake injection. MEDICATIONS: No orders of the defined types were placed in this encounter. OTHER ORDERS: Orders Placed This Encounter Procedures FL Modified Barium Swallow W Video OR ORDERS: Ambulatory referral to ENT DISPOSITION: Return for after imaging or testing. Thank you for allowing me to participate in the care of Ms. Santiago. Should you have any questions or concerns, please do not hesitate to contact my office. Warm regards, Moncho Rendon M.D. American History Professor [facility] Department of Otolaryngology - Head & Neck Surgery [facility] Portions of this note were dictated using M*Modal Fluency Direct. Instrumentation Tech errors and homophone substitutions may occur. MATIC TELLER MACHINE SERVICER documented in this encounter Plan of Treatment Not on file documented as of this encounter Goals Goal Patient Goal Type Associated Problems Recent Progress Patient-Stated? Author CCM Chronic Pain Care Plan Chronic Care Management Improving( 10:05 AM AUTOMATIC TELLER MACHINE SERVICER) No Bessy Mancuso RN Note: Problem: Chronic Pain Goals: 1. Minimize further functional decline 2. Maximize quality of life 3. Control pain Strategies: - Activity/exercise program recommendation - Conservative stepwise pain medicine strategy with multi-disciplinary approach - Recommend healthy lifestyle strategies and compensatory methods as needed documented as of this encounter Visit Diagnoses Diagnosis Dysphagia, oropharyngeal- Primary Dysphagia, oropharyngeal phase Spinal stenosis in cervical region Cervical spondylosis with myelopathy documented in this encounter Orders Outpatient Referral Count Last Ordered Date Fir st Ordered Date AMB REFERRAL TO ENT 1 09/14/2022 documented in this encounter Care Teams Equipment Or Machinery Cleaner Relationship Specialty Start Date End Date Rohan Rothman MD [address] [facility] [address] [place] [address] PCP - General 07/20/20 05/12/24 Reanna Polanco, RN Registered Nurse 07/07/19 documented as of this encounter
--- OUTSIDE RECORDS SUMMARY | 2024-07-28 01:05 | XMS_ITS | Encounter Summary ---
Author Organization [facility] Healthcare Address [address] [place] [address] Care Team Providers Care Comfort Filler Name Role Phone Reanna Polanco RN [facility] Rohan Salvador MD Primary Care Provider Reason for Referral * Diagnostic Imaging (Routine) - Closed Specialty Diagnoses / Procedures Referred By Hadley cloud Referred To Contact Diagnoses Neuralgia Cluneal neuropathy Procedures Imaging OTHER Nerve Block (14922) Tim Johnson NP Phone: tel: fax: [address] [phone] Referral ID Status Reason Start Date Expiration Date Visits Re quested Visits Authorized [id number] Closed 09/05/2022 10/05/2023 1 1 HT ENGINEER HELICOPTER Reason for Visit * Reason Comments Back Pain B/L LB/top of hips * Diagnostic Imaging (Routine) - Closed Specialty Diagnoses / Procedures Referred By Hadley cloud Referred To Contact Diagnoses Neuralgia Cluneal neuropathy Procedures Imaging OTHER Nerve Block ([id number]) Tim Johnson NP Phone: tel: fax: [address] [phone] Referral ID Status Reason Start Date Expiration Date Visits Re quested Visits Authorized [id number] Closed 09/05/2022 10/05/2023 1 1 Encounter Details Date Type Department Care Team (Latest Contact Info) Description 09/08/2022 1:10 PM FLIGHT ENGINEER HELICOPTER - 09/08/2022 11:59 PM FLIGHT ENGINEER HELICOPTER Hospital Encounter [facility] [address] [facility] [address] [place] [address] Macario Telles MD [address] [facility] [id number] [place] [address] Neuralgia; Cluneal neuropathy Discharge Disposition: Discharge to home or self [...] on file Legal Sex Female 2:03 AM FLIGHT ENGINEER HELICOPTER Gender Identity Female 08/26/2020 6:26 AM FLIGHT ENGINEER HELICOPTER Sexual Orientation Straight 08/26/2020 6: 26 AM FLIGHT ENGINEER HELICOPTER documented as of this encounter Last Filed Vital Signs Vital Sign Reading Time Taken Comments Blood Pressure 145/84 09/08/2022 2:58 PM FLIGHT ENGINEER HELICOPTER Pulse 77 09/08/2022 2:58 PM FLIGHT ENGINEER HELICOPTER Temperature 36.5 ??C (97.7 ??F) 09/08/2022 1:36 PM CS T Respiratory Rate 20 09/08/2022 2:58 PM FLIGHT ENGINEER HELICOPTER Oxygen Saturation 100% 09/08/2022 2:58 PM FLIGHT ENGINEER HELICOPTER Room air Inhaled Oxygen Concentration - - Weight 66.7 kg (147 lb) 09/08/2022 1:36 PM FLIGHT ENGINEER HELICOPTER Height 172.7 cm (5' 8 ) 09/08/2022 1:36 PM FLIGHT ENGINEER HELICOPTER Body Mass Index 22.35 09/08/2022 1:36 PM FLIGHT ENGINEER HELICOPTER documented in this encounter Discharge Instructions * Discharge Instructions* Paula Lee RN - 09/08/2022 2:20 PM FLIGHT ENGINEER HELICOPTER 8 HOUR PAIN DIARY Pain Intensity Scale Worst pain 10 Completely interferes 9 with Activities of Daily Living Very severe pain 8 Greatly interferes 7 with ADL's Severe Pain 6 Partially interferes 5 with ADL'S Moderate pain 4 Somewhat interferes 3 with ADL'S Mild Pain 2 Mildly interferes 1 with ADL'S No Pain 0 Does not interfere with ADL'S Rate your pain every hour over the next 8 hours starting at _3:45 PM__. We will call you for the results on the next business day. Your Doctor wants to know if this procedure helped you 1 hour after procedure 3:45 2 hour after procedure 4:45 3 hours after procedure 5:45 4 hours after procedure 6:45 5 hours after procedure 7:45 6 hours after procedure 8:45 7 hours after procedure 9:45 8 hours after procedure 10:45 [facility] PATIENT EDUCATION POST-PROCEDURE INFORMATION [...] 4:00 p.m., you should call the hospital case loader operator at and ask tospeak with the Pain Service doctor produce production team member. [facility] ([facility]) DISCHARGE INSTRUCTIONS MEDICATIONS: [x] Continue your current home medications Start: [x] Notify your pharmacy for refill(s) 7 days before you are out of your medication. [] Opioid (Narcotic) Agreement signed and patient received copy. [] Side Effects of Opioid Medications given to patient PROCEDURE at today's visit: Cluneal nerve block DIET: [x] Resume normal diet [] See [facility] Post Discharge Procedure Information Sheet ACTIVITY: [] Resume normal activity [x] See [facility] Post Discharge Procedure Information Sheet REFERRALS: Physical Therapy [] [facility] ([phone]) [] [facility] (Graded Motor Imagery) [] [facility] ([phone]) Option 1 [] [facility] (Graded Motor Imagery) [] [facility] ([phone]) [] Other: Behavior Medicine [] Pain Psychologist, [facility] Please call to schedule appointment [phone] or [phone] Diagnostic Test(s): May get Radiographs performed in Radiation/X-Ray 6th floor, [address]. EDUCATION provided on the following: [] Spinal Cord Stimulator Education and DVD. Vendor: FOLLOW UP APPOINTMENTS: [] Return as needed [] Follow up appointment: We will contact you the next business day to obtain: [] An update on your condition [x] Your Pain diary scores [] Procedure at your next visit : COVID 19 Vaccine and Booster Update Steroids given for a procedure may decrease the effectiveness of the COVID 19 vaccine. Therefore, steroid injections will be held for 2(two) weeks before your first vaccine until 2 (two)weeks after your second vaccine. Please schedule your procedure according to the above guidelines. INSTRUCTIONS before your next procedure: [] See [facility] Pre-Procedure Information Sheet [] Do not eat or drink for six (6) hours before the time/date of the procedure. [] Inquire with your prescribing provider if ok to hold blood thinner for ( ) days before procedure. [] Blood work required 2 hours before procedure: [] Receiving Clerk needed for next procedure [] Pre Procedure instructions will be sent through [email or web address] or by phone two working days prior to procedure. *Need help with [email or web address]? Call [phone]. Patient provided information and repeated back with understanding. If you need to reach us: For any questions about your procedure, please call the Pain Management Center [phone] (M-F) (8am-4pm) If you need urgent attention after 5 pm and weekends: Call the [facility] Financial Auditor at [phone] and ask for the Pain Service doctor produce production team member. HT ENGINEER HELICOPTER HT ENGINEER HELICOPTER documented in this encounter Medications at Time [...] 10 mg by mouth nightly 11/01/19 23 gabapentin (NEURONTIN) 300 mg capsule Take 1 capsule (300 mg total) by mouth 2 (two) times a day 90 capsule 11 08/12/2022 11/01/19 23 HYDROcodone-aceta minophen (NORCO) 7.5-325 mg per tabletIndications :Pain Take 1 tablet by mouth every 4 (four) hours as needed for pain 90 tablet 09/09/2022 10/04/19 23 methocarbamoL (ROBAXIN) 500 mg tablet Take 2 tablets (1,000 mg total) by mouth 4 (four) times a day as needed for muscle spasms 240 tablet 2 04/07/2022 04/11/20 23 methocarbamoL 1,000 mg tablet Take 1,000 mg by mouth every 8 (eight) hours 90 tablet 08/12/2022 09/20/19 23 senna-docusate (PERICOLACE) 8.6-50 mg Take 1 tablet by mouth nightly 60 tablet 08/12/2022 02/08/20 23 documented as of this encounter Discharge Disposition Disposition Code Departure Means Destination Discharge to home or self care documented in this encounter Miscellaneous Notes * Op Note - Macario Telles MD - 09/08/2022 2:00 PM CST OPERATIVE NOTE: Name: Annette Santiago : 1960 Date of Surgery: 09/08/22 Surgeon Attending Surgeon: MACARIO TELLES MD Surgical Assistants: none Procedure: Bilateral Superior Cluneal Nerve Block, under fluoroscopy. Pre-procedural Diagnosis: Superior cluneal neuralgia Post-procedural Diagnosis: Same Indication for Procedure: Bilateral sided low back/buttock superior pain Informed Consent: After reviewing the procedure with the patient, informed consent to proceed with the injection was obtained. A procedural permit was also signed. Description of Procedure: The patient was placed on the fluoroscopy table in the prone position. The lumbar area was prepped with chlorhexidine solution and draped with sterile towels. Sterile technique was used throughout. Fluoroscopy was used to identify the left L5 transverse process and the PSIS. The needle entry point was infiltrated with 1% lidocaine. A 22-gauge spinal needle was advanced to the periosteum of the transverse process. The left PSIS was identified on xray. A distance of 5 cm, 6 cm, 7 cm, 8cm, was measure from the PSIP along the right portion iliac crest. With the needle inthe correct position at each spot, 1.2 ml. of a mixture of 5 ml 0.5% bupivacaine and 4 mg dexamethas one was injected at each spot. The procedure was well tolerated, and there were no apparent complications. The procedure was then repeated exactly as described above on the contralateral, right, side. The procedure was well tolerated, and there were no apparent complications. The patient had moderate relief of pain from the injected local anesthetic. Dr. Telles was present for, and participated in, the entire procedure. Disposition: The patient was discharged home in stable condition. We will contact patient regardingpain diary at next business day. HT ENGINEER HELICOPTER documented in this encounter Plan of Treatment Not on file documented as of this encounter Goals Goal Patient Goal Type Associated Problems Recent Progress Patient-Stated? Author CCM Chronic Pain Care Plan Chronic Care Management Improving( 10:05 AM FLIGHT ENGINEER HELICOPTER) No Bessy Mancuso, RN Note: Problem: Chronic Pain Goals: 1. Minimize further functional decline 2. Maximize quality of life 3. Control pain Strategies: - Activity/exercise program recommendation - Conservative stepwise pain medicine strategy with multi-disciplinary approach - Recommend healthy lifestyle strategies and compensatory methods as needed documented as of this encounter Procedures Procedure Name Priority Date/Time Associated Diagnosis Comments PAIN MGMT IMAGING OTHER NERVE BLOCK Schedule Routine, Read Routine (OP Routine) 09/08/2022 2:55 PM FLIGHT ENGINEER HELICOPTER Neuralgia Cluneal neuropathy documented in this encounter Results * Imaging OTHER Nerve Block (66985) (09/08/2022 2:55 PM FLIGHT ENGINEER HELICOPTER) Narrative [facility] - 09/08/2022 2:55 PM FLIGHT ENGINEER HELICOPTER The images from this study are not interpreted by Radiology. ??Please refer to the physician's procedure / OR operative note. us Tim Johnson NP IMG PAIN MGMT PROCEDURE S Final Result [facility] documented in this encounter Visit Diagnoses Diagnosis Neuralgia Unspecified neuralgia, neuritis, and radiculitis Cluneal neuropathy documented in this encounter Administered Medications Inactive Administered Medications - up to 3 most recent administrations Medication Order MAR Action Action Date Dose Rate Site bupivacaine (MARCAINE) 0.25 % (2.5 mg/mL) preservative free injection As needed, Starting on 09/08/22 at 1439, Intra-Op Given 09/08/2022 2:39 PM FLIGHT ENGINEER HELICOPTER 9 mL dexAMETHasone (DECADRON) 4 mg/mL injection Administer over 2 Minutes, As needed, Starting on Sun09/08/22 at 1439, Intra-Op Given 09/08/2022 2:39 PM FLIGHT ENGINEER HELICOPTER 4 mg lidocaine PF (XYLOCAINE) 10 mg/mL (1 %) preservative free injection As needed, Starting on Sun09/08/22 at 1446, Intra-Op Given 09/08/2022 2:46 PM FLIGHT ENGINEER HELICOPTER 8 mL documented in this encounter Orders Discharge Count Last Ordered Date First Orde red Date DISCHARGE PATIENT 1 09/13/2022 documented in this encounter Care Teams Comfort Filler Relationship Specialty Start Date End Date Rohan Rothman MD [address] [facility] [address] [place] [address] PCP - General 07/20/20 05/12/24 Reanna Polanco RN Registered Nurse 07/07/19 documented as of this encounter
--- OUTSIDE RECORDS SUMMARY | 2024-07-28 01:05 | XMS_ITS | Encounter Summary ---
Author Organization [facility] Address [address] [place] [address] Phone Care Team Providers Care Nitrogen Operator Name Role Phone Reanna Polanco RN [facility] Rohan Salvador MD Primary Care Provider Encounter Details Date Type Department Care Team (Late st Contact Info) Description 09/06/2022 Telephone [facility] [address] [facility] [address] [place] [address] Olivier Marion MD [address] [facility] [address] [place] [address] Social History Tobacco Use Types Packs/Day Years Used Date Smoking Tobacco: Former Cigarettes 1 5 0 11/27/1978 - 09/28/1983 Smokeless Tobacco: Never Alcohol Use Standard Drinks/Week Comments No 0 (1 standard drink = 0.6 oz pur e alcohol) denies AUDIT-C Answer Date Recorded Q1: How often do you have a drink containing alcohol? Never 09/05/2022 Q2: How many drinks containi ng alcohol do you have on a typical day when you are drinking? 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 She is taking 300mg BID. We discussed that she can take away the AM dose for 3-4 days and as long as she does not have an increase in her symptoms she can go off of the night time dose. She is going to let me know how she does and if she needs anything prior to her next f/u visit. ROAD CAR PAINTER documented in this encounter Plan of Treatment Not on file documented as of this encounter Goals Goal Patient Goal Type Associated Problems Recent Progress Patient-Stated? Author CCM Chronic Pain Care Plan Chronic Care Management Improving( 10:05 AM RAILROAD CAR PAINTER) No Bessy Mancuso, RUBIO Note: Problem: Chronic Pain Goals: 1. Minimize further functional decline 2. Maximize quality of life 3. Control pain Strategies: - Activity/exercise program recommendation - Conservative stepwise pain medicine strategy with multi-disciplinary approach - Recommend healthy lifestyle strategies and compensatory methods as needed documented as of this encounter Visit Diagnoses Not on filedocumented in this encounter Care Teams Nitrogen Operator Relationship Specialty Start Date End Date Rohan Rothman MD [address] [facility] [address] [place] [address] PCP - General 07/20/20 05/12/24 Reanna Polanco RN Registered Nurse 07/07/19 documented as of this encounter
--- OUTSIDE RECORDS SUMMARY | 2024-07-28 01:05 | XMS_ITS | Encounter Summary ---
Author Organization [facility] Healthcare Address [address] [place] [address] Care Team Providers Care Habilitative Interventionist Name Role Phone Reanna Polanco RN [facility] Rohan Salvador MD Primary Care Provider Reason for Referral * Diagnostic Imaging (Routine) - Closed Specialty Diagnoses / Procedures Referred By Contcarol t Referred To Contact Diagnoses Neuralgia Cluneal neuropathy Procedures Imaging OTHER Nerve Block ([address]) Tim Johnson NP Phone: tel: fax: [address] [phone] Referral ID Status Reason Start Date Expiration Date Visits Re quested Visits Authorized [id number] Closed 09/05/2022 10/05/2023 1 1 HEMSTITCHING MACHINE OPERATOR Reason for Visit * Reason Comments Follow-up Lower back Encounter Details Date Type Department Care Team (Latest Contact Info) Description 09/05/2022 2:33 PM GANG HEMSTITCHING MACHINE OPERATOR - 09/05/2022 11:59 PM GANG HEMSTITCHING MACHINE OPERATOR Hospital Encounter [facility] [address] [facility] [address] [place] [address] Tim Johnson NP [address] [place] [address] Neuralgia (Primary Dx); Cluneal neuropathy; Bilateral low back pain without sciatica, unspecified chronicity Discharge Disposition: Discharge to home or self care Social History Tobacco Use Types Packs/Day Years Used Date Smoking Tobacco: Former Cigarettes 1 5 0 11/27/1978 - 09/28/1983 Smokeless Tobacco: Never Tobacco Cessation:Counseling Given: No Alcohol Use Standard Drinks/Week Comments No 0 [...] on file Legal Sex Female 2:03 AM GANG HEMSTITCHING MACHINE OPERATOR Gender Identity Female 08/26/2020 6:26 AM GANG HEMSTITCHING MACHINE OPERATOR Sexual Orientation Straight 08/26/2020 6: 26 AM GANG HEMSTITCHING MACHINE OPERATOR documented as of this encounter Last Filed Vital Signs Vital Sign Reading Time Taken Comments Blood Pressure 135/81 09/05/2022 2:43 PM GANG HEMSTITCHING MACHINE OPERATOR Pulse 89 09/05/2022 2:43 PM GANG HEMSTITCHING MACHINE OPERATOR Temperature 36.6 ??C (97.8 ??F) 09/05/2022 2:43 PM CS T Respiratory Rate 18 09/05/2022 2:43 PM GANG HEMSTITCHING MACHINE OPERATOR Oxygen Saturation 98% 09/05/2022 2:43 PM GANG HEMSTITCHING MACHINE OPERATOR Inhaled Oxygen Concentration - - Weight 66.7 kg (147 lb) 09/05/2022 2:43 PM GANG HEMSTITCHING MACHINE OPERATOR Height 172.7 cm (5' 8 ) 09/05/2022 2:43 PM GANG HEMSTITCHING MACHINE OPERATOR Body Mass Index 22.35 09/05/2022 2:43 PM GANG HEMSTITCHING MACHINE OPERATOR documented in this encounter Discharge Instructions * Patient Instructions* Adamaris Lan RN - 09/05/2022 3:00 PM GANG HEMSTITCHING MACHINE OPERATOR RETURN to [facility] for Superior Cluneal Nerve Block. You will need a cdl dedicated truck driver for this appt HEMSTITCHING MACHINE OPERATOR documented in this encounter Medications at Time [...] 4 (four) hours as needed for pain 42 tablet 08/24/2022 09/08/19 23 methocarbamoL (ROBAXIN) 500 mg tablet Take [...] documented in this encounter Progress Notes * Tim Johnson, NAOMIE - 09/05/2022 3:00 PM CST Patient Name: Annette Santiago : 1960 Today's Date: 09/05/2022 PCP: Rohan Rothman MD Referring: Olivier Marion MD Chief Complaint Patient presents with Follow-up Lower back INTERVAL HISTORY (09/05/2022): Annette Santiago returns to clinic today. She presents for ongoing management of low back pain. States her low back pain is progressively ramping up since her neck surgery. Not able to perform housework, take walks or attend physical therapy. Bending, twisting, walking aggravate the pain and increase her muscle spasms, especially on left lower back. Patient was taking Meloxicam prior to her cervical spine surgery. She is not able to resume this medication until January. Pain is at bilaterally at the superior iliac crest Radiation: into buttocks and hips Numbness: denies Weakness: denies Pain Assessment Pain Score: 8 Patient's Stated Pain Goal: 1 Pain Location: Back (Lumbar) Pain Radiating Towards: bilateral hips, Pain Descriptors: Nagging, Tiring, Penetrating, Tender, Other (Comment) (Gnawing) Pain Frequency: Constant/continuous Pain Onset: Ongoing Last visit we did the following: Intervention: none. Medication adjustments: Plan to maintain patient's current medication regimen Referrals: No referrals needed at this current time Current Pain meds: Is not taking acetaminophen with hydrocodone. Continues to take Methocarbamol and baclofen. Denies side effects from medication. Pain Medications acetaminophen 500 mg capsule Take 2 capsules (1,000 mg total) by mouth every 6 (six) hours ARIPiprazole (ABILIFY) 15 mg tablet Take 7.5 mg by mouth nightly Total 12.5 ayt HS ARIPiprazole (ABILIFY) 5 mg tablet Take 5 mg by mouth nightly Total 12.5 mg baclofen (LIORESAL) 10 mg tablet Take 2 tablets (20 mg total) by mouth 4 (four) times a day Takes 1-[address] (CYMBALTA) 60 mg capsule Take 60 mg by mouth 2 (two) times a day gabapentin (NEURONTIN) 300 mg capsule Take 1 capsule (300 mg total) by mouth 2 (two) times a day HYDROcodone-acetaminophen (NORCO) 7.5-325 mg per tablet Take 1 tablet by mouth every 4 (four) hoursas needed for pain methocarbamoL 1,000 mg tablet Take 1,000 mg by mouth every 8 (eight) hours Physical Exam Vitals: 09/05/22 1443 BP: 135/81 Pulse: 89 Resp: 18 Temp: 97.8 ??F (36.6 ??C) SpO2: 98% Weight: 66.7 kg (147 lb) Height: 172.7 cm (5' 8 ) Body mass index is 22.35 kg/m??. Physical Exam GENERAL: In no acute distress. Well-developed and well nourished. PSYCHOLOGICAL: Alert and oriented. Cooperative, normal stated mood, congruent affect. HENT: Normocephalic, atraumatic. Hearing adequate for conversation. EYES: Non-icteric sclera. ABDOMEN: Non-distended RESPIRATORY: Non-labored breathing. No audible cough or wheeze. CARDIOVASCULAR: No edema. Bilateral lower extremities are warm and well perfused. SKIN: No rashes or open wounds involving posterior torso, posterior pelvis, lower extremities. NEUROLOGIC: Cranial Nerves: II-XII grossly intact Sensation: Intact to light touch to bilateral LE and decreased left upper extremity above elbow Spine Cervical Palpation: Tenderness along bilateral paraspinal ROM: Wearing a Neck Brace Palpation: Negative tenderness along bilateral paraspinal Lumbar/Pelvis Palpation: Tenderness along bilateral paraspinal ROM: decreased Special Tests: Sit slump positive bilaterally L > R - cause pain over iliac crest Facet tenderness: moderate bilaterally Lumbar facet loading: positive bilaterally Strength Upper Extremity Right Left Elbow Flexion (C5, Musculocutaneous N.) 5/5 5/5 Elbow Extension (C7, Radial N.) 5/5 5/5 Wrist Extension (C6, Radial N./PIN) 5/5 5/5 Finger DIP Digit 2, 3 flexion (anterior interosseus nerve C8, Median N.) 5/5 5/5 Finger DIP Digit 4,5 flexion (C8, Ulnar N.) 5/5 5/5 5th digit abduction, (T1, Ulnar N.) 5/5 5/5 Lower Extremity Right Left Hip Flexion (L2, Femoral N.) 5/5 5/5 Knee Extension (L3, Femoral N.) 5/5 5/5 Ankle Dorsiflexion (L4, Deep Peroneal N.) 5/5 5/5 Great Toe Extension (L5, Deep Peroneal N.) 5/5 5/5 Ankle Plantarflexion (S1, Tibial N.) 5/5 5/5 Reflexes Upper Extremity: Mathew's: negative bilaterally Assessment The above note documents my personal evaluation of this patient. In addition, I have reviewed and confirmed with the patient and nurse the supportive information documented in today's scanned PatientHealth Questionnaire and Office Note. Encounter Diagnoses Name Primary? Neuralgia Yes Cluneal neuropathy Bilateral low back pain without sciatica, unspecified chronicity Plan Interventions: Bilateral Superior Nerve Blocks under ultrasound Medications: continue same medications at this time. Patient is interested in weaning off Gabapentin. She will discuss this prescribing orthopedic spine surgery team. The patient shows no signs of aberrant [...] the lowest dose necessary. Chronic Opioid Therapy 09/05/2022 Current analgesics: hydrocodone/APAP 7.5/325 1 tab every [...] needed at this current time. 5. Follow-up: At the next possible visit for the procedure listed above Reviewed assessment and plan of care with Dr. Fernandez. Tim Johnson AGNP-C HEMSTITCHING MACHINE OPERATOR documented in this encounter Plan of Treatment Not on file documented as of this encounter Goals Goal Patient Goal Type Associated Problems Recent Progress Patient-Stated? Author CCM Chronic Pain Care Plan Chronic Care Management Improving( 10:05 AM GANG HEMSTITCHING MACHINE OPERATOR) No Bessy Mancuso, RN Note: Problem: Chronic Pain Goals: 1. Minimize further functional decline 2. Maximize quality of life 3. Control pain Strategies: - Activity/exercise program recommendation - Conservative stepwise pain medicine strategy with multi-disciplinary approach - Recommend healthy lifestyle strategies and compensatory methods as needed documented as of this encounter Results * Imaging OTHER Nerve Block (42692) (09/08/2022 2:55 PM GANG HEMSTITCHING MACHINE OPERATOR) Narrative RAD_PACS_[facility] - 09/08/2022 2:55 PM GANG HEMSTITCHING MACHINE OPERATOR The images from this study are not interpreted by Radiology. ??Please refer to the physician's procedure / OR operative note. Tim Johnson NP IMG PAIN MGMT PROCEDURE S Final Result [facility] documented in this encounter Visit Diagnoses Diagnosis Neuralgia- Primary Unspecified neuralgia, neuritis, and radiculitis Cluneal neuropathy Bilateral low back pain without sciatica, unspecified chronicity Neuralgia Unspecified neuralgia, neuritis, and radiculitis Cluneal neuropathy documented in this encounter Discontinued Medications Medication Sig Discontinue Reason Start Date End Da te cyclobenzaprine (FLEXERIL) 5 mg tablet Take 1 tablet (5 mg total) by mouth 3 (three) times a day as needed for muscle spasms Therapy completed 08/12/2022 09/05/2022 famotidine (PEPCID) 10 mg tablet Take 1 tablet (10 mg total) by mouth 2 (two) times a day Therapy completed 07/18/2022 09/05/2022 magnesium oxide (MAG-OX) 500 mg (301.6 mg elemental) tablet Take 500 mg by mouth 2 (two) times a day Therapy completed 09/05/2022 omega 0-nca-erx-fish oil 1,000 mg (120 mg-180 mg) capsule Take 1 capsule by mouth every morning Therapy completed 09/05/2022 polyethylene glycol (MIRALAX) 17 gram packetIndications:consti pation Take 1 packet (17 g total) by mouth daily Therapy completed 08/13/2022 09/05/2022 ramelteon (ROZEREM) 8 mg tabletIndications:Sleep- Onset Insomnia Take 1 tablet (8 mg total) by mouth nightly as needed for sleep Therapy completed 08/12/2022 09/05/2022 turmeric root extract 500 mg capsuleIndications:OTC Take 1,350 mg by mouth every morning Therapy completed 09/05/2022 documented as of this encounter Care Teams Habilitative Interventionist Relationship Specialty Start Date End Date Rohan Rothman MD [address] [facility] [address] [place] [address] PCP - General 07/20/20 05/12/24 Reanna Polanco RN Registered Nurse 07/07/19 documented as of this encounter
--- OUTSIDE RECORDS SUMMARY | 2024-07-28 01:05 | XMS_ITS | Encounter Summary ---
Author Organization [facility] Healthcare Address [address] [place] [address] Care Team Providers Care Panel Saw Operator Name Role Phone Reanna Polanco RN [facility] Rohan Salvador MD Primary Care Provider Reason for Visit * Reason Onset Date Comments post call 09/11/2022 Encounter Details Date Type Department Care Team (Late st Contact Info) Description 09/11/2022 Telephone [facility] [place] [facility] [address] [facility] [address] [place], [place] [phone] Nancy Fernandez MD [address] [facility] [address] [facility] [id number] [place], [place] [phone] post call Social History Tobacco Use Types Packs/Day Years [...] on file Legal Sex Female 2:03 AM COLOR PRINTER OPERATOR Gender Identity Female 08/26/2020 6:26 AM COLOR PRINTER OPERATOR Sexual Orientation Straight 08/26/2020 6: 26 AM COLOR PRINTER OPERATOR documented as of this encounter Miscellaneous Notes * Telephone Encounter - Nancy Fernandez MD - 10/27/2022 11:21 AM CDT She has an appointmetn 10/31. We'll discuss next steps at that time * Telephone Encounter - Jessica Justin - 09/20/2022 7:59 AM CST My apologies, [employer] does not cover [employer]. Could we try a SCS? R PRINTER OPERATOR * Telephone Encounter - Jessica Justin - 09/20/2022 7:55 AM CST Got it, thank you. R PRINTER OPERATOR * Telephone Encounter - Karo Johnson RN - 09/19/2022 12:32 PM COLOR PRINTER OPERATOR Per Dr. Fernandez patient called and asked if she would like to do [employer], pt accepted and would like to move on with the next steps. Sent to Jessica Magana for scheduling for [employer]. R PRINTER OPERATOR * Telephone Encounter - Letitia Flores RN - 09/11/2022 7:48 AM COLOR PRINTER OPERATOR Date of Procedure:09/08/22 Procedure: superior cluneal block Level(s): Site: []Left [] Right [x] Bilateral [] Midline Pre-Procedure Pain Score:7 Sedation: [x] No Sedation [] Minimal Sedation [] Moderate Sedation IV Site: [x] N/A [] No Redness/Swelling [] Redness/Swelling Post Procedure Follow Up Assessment: Did the injection help you? [x] Yes [] No Do you feel you had more than 80% benefit? [] Yes [] No [] N/A Current Pain Rating? Numbness/Heaviness [x] No [] Yes Dizziness or lightheadedness [x] No [] Yes Puncture Site: [x] No tenderness/swelling [] Tenderness without drainage [] Advised to apply heating pad for 20 minutes for puncture sitesoreness. Pain Diary 2 Hour Pain Diary every 15 mins 4 Hour Pain Diary every 30 mins 8 Hour pain Diary every 1 hour Lt 0, rt 4 0 5 7 5 2 5 5 5 5 6 sleeping sleeping OtherComments/Concerns: R PRINTER OPERATOR documented in this encounter Plan of Treatment Not on file documented as of this encounter Goals Goal Patient Goal Type Associated Problems Recent Progress Patient-Stated? Author CCM Chronic Pain Care Plan Chronic Care Management Improving( 10:05 AM COLOR PRINTER OPERATOR) No Bessy Mancuso, URBIO Note: Problem: Chronic Pain Goals: 1. Minimize further functional decline 2. Maximize quality of life 3. Control pain Strategies: - Activity/exercise program recommendation - Conservative stepwise pain medicine strategy with multi-disciplinary approach - Recommend healthy lifestyle strategies and compensatory methods as needed documented as of this encounter Visit Diagnoses Not on filedocumented in this encounter Care Teams Panel Saw Operator Relationship Specialty Start Date End Date Rohan Rothman MD [address] [facility] [address] [place] [id number] PCP - General 07/20/20 05/12/24 Reanna Polanco RN Registered Nurse 07/07/19 documented as of this encounter
--- OUTSIDE RECORDS SUMMARY | 2024-07-28 01:05 | XMS_ITS | Encounter Summary ---
Author Organization [facility] Address [address] [place] [address] Phone Care Team Providers Care Pattern Cleaner Name Role Phone Reanna Polanco RN [facility] Rohan Salvador MD Primary Care Provider Encounter Details Date Type Department Care Team (Late st Contact Info) Description 08/28/2022 Telephone [facility] Orthopaedic Surgery [address] [facility] [address] [place] [address] Olivier Marion MD [address] [facility] [address] [place] [address] Social History Tobacco Use Types [...] on file Legal Sex Female 2:03 AM HR CLERK Gender Identity Female 08/26/2020 6:26 AM HR CLERK Sexual Orientation Straight 08/26/2020 6: 26 AM HR CLERK documented as of this encounter Miscellaneous Notes * Telephone Encounter - Gris Kidd RN - 08/28/2022 2:24 PM CST Annette called today about her ENT referral. I let her know that the referral had been placed, but that if she would like to call them to see when she could be scheduled, she can do that. I gave her the number to call. She states that she does feel that she is having a bit of difficulty swallowing and she still has a horse voice. She also states that she continues to wear her collar but with her low back problems she sometimes sleeps on her face in a bent forward position. We discussed that we would prefer that she not sleep like this and that she find another position that her neck would be supported in that would not increase her low back pain. She will keep me up to date on how things are going for her. CLERK documented in this encounter Plan of Treatment Not on file documented as of this encounter Goals Goal Patient Goal Type Associated Problems Recent Progress Patient-Stated? Author CCM Chronic Pain Care Plan Chronic Care Management Improving( 10:05 AM HR CLERK) No Bessy Mancuso RN Note: Problem: Chronic Pain Goals: 1. Minimize further functional decline 2. Maximize quality of life 3. Control pain Strategies: - Activity/exercise program recommendation - Conservative stepwise pain medicine strategy with multi-disciplinary approach - Recommend healthy lifestyle strategies and compensatory methods as needed documented as of this encounter Visit Diagnoses Not on filedocumented in this encounter Care Teams Pattern Cleaner Relationship Specialty Start Date End Date Rohan Rothman MD [address] [place] [address] PCP - General 07/20/20 05/12/24 Reanna Polanco RN Registered Nurse 07/07/19 documented as of this encounter
--- OUTSIDE RECORDS SUMMARY | 2024-07-28 01:05 | XMS_ITS | Encounter Summary ---
Author Organization [facility] Address [address] [place] [address] Phone Care Team Providers Care Stringing Machine Tender Name Role Phone Reanna Polanco RN [facility] Rohan Salvador MD Primary Care Provider Encounter Details Date Type Department Care Team (Late st Contact Info) Description 08/15/2022 Telephone [facility] Orthopaedic Surgery [address] [facility] Advanced Medicine 6th [place] [address] [place] [address] Olivier Marion MD [address] [facility] [address] [place] [address] Social History Tobacco Use Types [...] on file Legal Sex Female 2:03 AM HOSPITAL ADMISSIONS OFFICER Gender Identity Female 08/26/2020 6:26 AM HOSPITAL ADMISSIONS OFFICER Sexual Orientation Straight 08/26/2020 6: 26 AM HOSPITAL ADMISSIONS OFFICER documented as of this encounter Miscellaneous Notes * Telephone Encounter - Gris Kidd RN - 08/21/2022 11:28 AM CST Annette called today stating that she has been having pain in her hip since surgery and she would like to know if she could apply a topical cream to help with this. She said that she is unsure if sheshould call us about this or pain management. We discussed that we will follow her for her neck, but that if the pain is in her hip/low back, she should call pain management. We did discuss that a topical ream on her hip would not interfere with anything from her neck surgery. She will let me know if there is anything that I can help with. ITAL ADMISSIONS OFFICER * Telephone Encounter - Gris Kidd RN - 08/15/2022 11:56 AM CST Annette called today about her medications. She wants to change from the sleeping pill that they gave her at discharge. We discussed going back to her home medication is fine, she should just not take both of them. She also would like to change back to her hydrocodone 7.5/325mg every 6 hours instead of the oxy 5mg. We again discussed that this is OK, as long as she is not taking both at the same time. She also has 3 muscle relaxers. She was taking baclofen prior to surgery and then was sent home with both methocarbamol and also flexeril. We dicussed that she has not started the flexeril yet, but has been taking the baclofen and also the methocarbamol. We talked about a schedule that alternates these medications so that she can take something every 4 hours. She is also going to wean down on the gabapentin and only take 300mg at night. She thinks that this is contributing to her balance issues and is also causing double vision. She is going to try these changes and let me know how things go. She will let me know if there is anything that I can help with. ITAL ADMISSIONS OFFICER documented in this encounter Plan of Treatment Not on file documented as of this encounter Goals Goal Patient Goal Type Associated Problems Recent Progress Patient-Stated? Author CCM Chronic Pain Care Plan Chronic Care Management Improving( 10:05 AM HOSPITAL ADMISSIONS OFFICER) No Bessy Mancuso, RUBIO Note: Problem: Chronic Pain Goals: 1. Minimize further functional decline 2. Maximize quality of life 3. Control pain Strategies: - Activity/exercise program recommendation - Conservative stepwise pain medicine strategy with multi-disciplinary approach - Recommend healthy lifestyle strategies and compensatory methods as needed documented as of this encounter Visit Diagnoses Not on filedocumented in this encounter Care Teams Stringing Machine Tender Relationship Specialty Start Date End Date Rohan Rothman MD [address] [facility] [address] [place] [address] PCP - General 07/20/20 05/12/24 Reanna Polanco, RN Registered Nurse 07/07/19 documented as of this encounter
--- OUTSIDE RECORDS SUMMARY | 2024-07-28 01:05 | XMS_ITS | Encounter Summary ---
Author Organization [facility] Healthcare Address [address] [facility] [place] [address] Care Team Providers Care Physical Therapist Technician Name Role Phone Reanna Polanco RN [facility] Rohan Salvador MD Primary Care Provider Reason for Visit * Reason Onset Date Comments pain 08/22/2022 Encounter Details Date Type Department Care Team (Late st Contact Info) Description 08/22/2022 Telephone [facility] [place] [facility] [address] [facility] [address] [place], [place] [phone] Nancy Fernandez MD [address] [facility] [address] [facility] [id number] [place], [place] [phone] pain Social History Tobacco Use Types Packs/Day Years [...] on file Legal Sex Female 2:03 AM CLAIMS ADJUDICATOR Gender Identity Female 08/26/2020 6:26 AM CLAIMS ADJUDICATOR Sexual Orientation Straight 08/26/2020 6: 26 AM CLAIMS ADJUDICATOR documented as of this encounter Miscellaneous Notes * Telephone Encounter - Radha Morales RN - 08/22/2022 1:29 PM CLAIMS ADJUDICATOR Spoke with patient. Let her know Dr. Fernandez recommends using heat on the affected area. Patient said she is not taking the oxy prescribed for post op. Patient rescheduled to be seen sooner on 08/29/2022with Stefano. Patient verbalized understanding. MS ADJUDICATOR documented in this encounter Plan of Treatment Not on file documented as of this encounter Goals Goal Patient Goal Type Associated Problems Recent Progress Patient-Stated? Author CCM Chronic Pain Care Plan Chronic Care Management Improving( 10:05 AM CLAIMS ADJUDICATOR) No Bessy Mancuso, RUBIO Note: Problem: Chronic Pain Goals: 1. Minimize further functional decline 2. Maximize quality of life 3. Control pain Strategies: - Activity/exercise program recommendation - Conservative stepwise pain medicine strategy with multi-disciplinary approach - Recommend healthy lifestyle strategies and compensatory methods as needed documented as of this encounter Visit Diagnoses Not on filedocumented in this encounter Care Teams Physical Therapist Technician Relationship Specialty Start Date End Date Rohan Rothman MD [address] [place] [address] PCP - General 07/20/20 05/12/24 Reanna Polanco RN Registered Nurse 07/07/19 documented as of this encounter
--- OUTSIDE RECORDS SUMMARY | 2024-07-28 01:05 | XMS_ITS | Encounter Summary ---
Author Organization [facility] Healthcare Address [address] [place] [address] Care Team Providers Care Stagecraft Teacher Name Role Phone Reanna Polanco RN [facility] Rohan Salvador MD Primary Care Provider Reason for Referral * Diagnostic Imaging (Routine) - Closed Specialty Diagnoses / Procedures Referred By Contac t Referred To Contact Diagnoses Spinal stenosis in cervical region Procedures XR Spine Cervical W Flexion And Extension 4 or 5 Views Olivier Marion MD [address] [place] [id number] Phone: tel: fax: [facility] Referral ID Status Reason Start Date Expiration Date Visits Re quested Visits Authorized [id number] Closed 09/20/2022 10/20/2023 1 1 B TRAINER Reason for Visit * Diagnostic Imaging (Routine) - Closed Specialty Diagnoses / Procedures Referred By Contac t Referred To Contact Diagnoses Spinal stenosis in cervical region Procedures XR Spine Cervical W Flexion And Extension 4 or 5 Views Olivier Marion MD [address] [facility] [address] [place] [address] Phone: tel: fax: [facility] Referral ID Status Reason Start Date Expiration Date Visits Re quested Visits Authorized [id number] Closed 09/20/2022 10/20/2023 1 1 Encounter Details Date Type Department Care Team (Latest Contact Info) Description 09/21/2022 1:15 PM REHAB TRAINER - 09/21/2022 11:59 PM REHAB TRAINER Hospital Encounter [facility] [address] [place] [address] Spinal stenosis in cervical region Discharge Disposition: [...] on file Legal Sex Female 2:03 AM REHAB TRAINER Gender Identity Female 08/26/2020 6:26 AM REHAB TRAINER Sexual Orientation Straight 08/26/2020 6: 26 AM REHAB TRAINER documented as of this encounter Medications at [...] times a day as needed CBD DULoxetine (CYMBALTA) 60 mg capsuleIndication s:Anxiety with Depression [...] day Takes 1-2 tabs QID 240 tablet 04/07/2022 12/01/19 23 cetirizine 10 mg capsuleIndication s:Seasonal Allergic Rhinitis Take 10 mg by mouth nightly 11/01/19 23 gabapentin (NEURONTIN) 300 mg capsule Take 1 capsule (300 mg total) by mouth 2 (two) times a day 90 capsule 08/12/2022 11/01/19 23 HYDROcodone-aceta minophen (NORCO) 7.5-325 [...] mouth every 8 (eight) hours 90 tablet 11 09/20/2022 09/25/19 23 methocarbamoL 1,000 mg tablet Take 1,000 mg by mouth every 8 (eight) hours 90 tablet 11 09/26/2022 09/28/19 23 senna-docusate (PERICOLACE) 8.6-50 mg Take 1 [...] Plan Chronic Care Management Improving( 10:05 AM REHAB TRAINER) No Bessy Mancuso RN Note: Problem: Chronic [...] VIEWS Schedule Routine, Read Routine (OP Routine) 09/21/2022 1:23 PM REHAB TRAINER Spinal stenosis in cervical region documented in this encounter Results * XR Spine Cervical W Flexion And Extension 4 or 5 Views (09/21/2022 1:23 PM REHAB TRAINER) Anatomical Region Laterality Modality Spine N/A Computed Radiogr aphy 09/21/2022 2:21 PM REHAB TRAINER Impressions 09/21/2022 4:02 PM REHAB TRAINER 1. ??Anterior cervical discectomy and instrumented fusion [...] Devan Desouza MD Narrative 09/21/2022 4:02 PM REHAB TRAINER EXAMINATION: XR SPINE CERVICAL W FLEXION AND [...] it. Electronically signed by: Devan Desouza MD Olivier Marion MD IMG XR PROCEDURES Final Re sult documented in this encounter Visit Diagnoses Diagnosis Spinal stenosis in cervical region documented in this encounter Care Teams Stagecraft Teacher Relationship Specialty Start Date End Date Rohan Rothman MD [address] [facility] [address] [place] [address] PCP - General 07/20/20 05/12/24 Reanna Polanco RN Registered Nurse 07/07/19 documented as of this encounter
--- OUTSIDE RECORDS SUMMARY | 2024-07-28 01:05 | XMS_ITS | Encounter Summary ---
Author Organization [facility] Healthcare Address [address] [place] [address] Care Team Providers Care Candle Pourer Name Role Phone Reanna Polanco RN [facility] Rohan Salvador MD Primary Care Provider Reason for Visit * Auth/Cert Specialty Diagnoses / Procedures Referred By Contac t Referred To Contact Diagnoses Spinal stenosis in cervical region Spinal stenosis in cervical region [M48.02] Procedures CA ARTHRD ANT INTERDY CERVCL BELW C2 EA ADDL NTRSPC NA Referral ID Status Reason Start Date Expiration Date Visits Re quested Visits Authorized [id number] 1 1 Encounter Details Date Type Department Care Team (Latest Contact Info) Description 08/09/2022 9:47 AM WELDING SUPERVISOR - 08/12/2022 4:48 PM WELDING SUPERVISOR Hospital Encounter [facility] [address] [place] [address] Olivier Marion MD [address] [facility] [address] [place] [address] Cervical spinal stenosis (Primary Dx) Discharge Disposition: Discharge to home or self [...] on file Legal Sex Female 2:03 AM WELDING SUPERVISOR Gender Identity Female 08/26/2020 6:26 AM WELDING SUPERVISOR Sexual Orientation Straight 08/26/2020 6: 26 AM WELDING SUPERVISOR documented as of this encounter Last Filed Vital Signs Vital Sign Reading Time Taken Comments Blood Pressure 149/72 08/12/2022 3:35 PM WELDING SUPERVISOR Pulse 69 08/12/2022 3:35 PM WELDING SUPERVISOR Temperature 36.8 ??C (98.2 ??F) 08/12/2022 2:04 PM CS T Respiratory Rate 15 08/12/2022 3:00 PM WELDING SUPERVISOR Oxygen Saturation 98% 08/12/2022 3:35 PM WELDING SUPERVISOR Inhaled Oxygen Concentration - - Weight 76.9 kg (169 lb 8.5 oz) 08/09/2022 11:41 PM WELDING SUPERVISOR Height 170.2 cm (5' 7 ) 08/09/2022 11:41 PM WELDING SUPERVISOR Body Mass Index 26.55 08/09/2022 11:41 PM WELDING SUPERVISOR documented in this encounter Discharge Summaries * Modesta Ortega, ESCORT SERVICE ATTENDANT - 08/12/2022 11:49 AM CST Images from the original note were not included. Spine Inpatient Discharge Summary Admitting Provider: Olivier Marion MD Discharge Provider: Olivier Marion MD Primary Care Physician at Discharge: Rohan Rothman MD [phone] Admission Date: 08/09/2022 Discharge Date: 08/12/2022 Primary [...] Tolerating regular diet. Last bowel movement was SAT ACT INSTRUCTOR Bundy removed on 08/11, now voiding spontaneously. Therapy recommendations: Home Incision: Skin glue Brace: Cora collar Surgical drains: NOAH x 1, removed [...] aredisplayed. Labs - Hematology Latest Ref Range 1/11/08/10/22 08/11/22 08/12/22 WBC 3.8 - 9.9 K/cumm [...] to surgery. Commonly known as: BACTROBAN omega 9-dwa-iqw-fish oil 1,000 mg (120 mg-180 mg) capsule [...] day for 14 days Commonly known as: LOTUS Ask about: Should I take this medication? * This list has 1 medication(s) that are the same as other medications prescribed for you. Read the directions carefully, and ask your doctor or other care provider to review them with you. Discharge Instructions: SEE AVS Cosigned by Olivier Marion MD at 08/13/2022 9:56 AM WELDING SUPERVISOR ING SUPERVISOR ING SUPERVISOR documented in this encounter Discharge Instructions * Discharge Instructions* Luli Bond MD - 08/12/2022 3:14 PM WELDING SUPERVISOR Discharge Instructions Anterior Cervical Discectomy and Fusion [...] blood pressure), call your family doctor or library serials assistant. You will be given a prescription for pain medications, a muscle relaxer and possibly a laxative, aspain medications can cause constipation. Take the pain medicines as instructed. If your pain is notreasonably controlled by the medications, contact your doctor???s office. Follow up - Orthopedic Surgery: You should follow up August 24, 2022 - Your primary care physician to have repeat labs. ING SUPERVISOR ING SUPERVISOR ING SUPERVISOR ING SUPERVISOR documented in this encounter Medications at Time [...] hours 90 tablet 08/12/2022 09/20/19 23 omega 4-nse-zxa-fish oil 1,000 mg (120 mg-180 mg) capsule [...] with chief complaint of C3-6 ACDF on /b airway compromise 2/2 neck hematoma requiring re- [...] sodium chloride 0.9%, 0.5-20 mL, intra-catheter, Q8H [facility] sodium phosphate - potassium phosphate, 500 mg, [...] 60mg BID CV: #Tachycardia - Follows with overhead distribution engineer; has had full work-up that was unremarkable [...] Mills MD PhD at 08/12/2022 5:30 PM WELDING SUPERVISOR ING SUPERVISOR ING SUPERVISOR ING SUPERVISOR * Vivek Erickson MD - 08/12/2022 5:28 [...] extension 5/5 5/5 Wrist flexion 5/5 5/5 Hoop Coiling Machine Operator 5/5 5/5 Interosseous of hand 5/5 5/5 [...] issues. If questions arise on patients at [facility] and the appropriate resident/fellow can't be reached or you are calling overnight, please contact [phone] ([facility] 7:30 PM - 6:30 AM - Floor Resident) or [phone] (24 hours/day - Consult Resident) If you are calling about a patient at [facility] please page/call fellow or resident front end drupal developer. Note created by Vivek Erickson MD on 08/12/2022 at 5:29 AM. Cosigned by Olivier Marion MD at 08/14/2022 8:16 AM WELDING SUPERVISOR ING SUPERVISOR ING SUPERVISOR * Gabriella Kaplan MD - 08/11/2022 6:24 [...] 60mg BID CV: #Tachycardia - Follows with overhead distribution engineer; has had full work-up that was unremarkable [...] Olivier Phillips MD at 08/12/2022 5:42 AM WELDING SUPERVISOR ING SUPERVISOR ING SUPERVISOR * Nicole Lazar, PT - 08/11/2022 8:09 AM CST Physical Therapy Physical Therapy Initial Assessment NOTE: This is a summary note for the carbaajl assessments completed during the evaluation session. For [...] Yes Prior Function Prior Function Level of [place]: Independent functional transfers, Independent with ambulation Lives [...] treatment team and contact the PT or SAT ACT INSTRUCTOR currently assigned to this patient. If a physical therapy clinician is not assigned to this patient, please call [phone]. ING SUPERVISOR * Shiva Puente MD - 08/11/2022 6:21 AM CST Surgical ICU Daily Progress Team: Red MICHAEL Subjective Patient is a 62 y.o. female [...] 60mg BID CV: #Tachycardia - Follows with overhead distribution engineer; has had full work-up that was unremarkable [...] plan with the ICU team and other medical/surgical product sales consultant staff. Shiva Puente MD ING SUPERVISOR ING SUPERVISOR ING SUPERVISOR ING SUPERVISOR * Vivek Erickson MD - 08/11/2022 5:29 [...] extension 5/5 5/5 Wrist flexion 5/5 5/5 Hoop Coiling Machine Operator 5/5 5/5 Interosseous of hand 5/5 5/5 [...] issues. If questions arise on patients at [facility] and the appropriate resident/fellow can't be reached or you are calling overnight, please contact [phone] ([facility] 7:30 PM - 6:30 AM - Floor Resident) or [phone] (24 hours/day - Consult Resident) If you are calling about a patient at [facility] please page/call fellow or resident front end drupal developer. Note created by Vivek Erickson MD on 08/11/2022 at 5:30 AM. Cosigned by Olivier Marion MD at 08/14/2022 8:15 AM WELDING SUPERVISOR ING SUPERVISOR ING SUPERVISOR * Shamar Lema MD - 08/11/2022 12:28 AM CST Ortho Spine Post-Op Note Surgical Procedure: Procedure(s) (LRB): FUSION CERVICAL ANTERIOR DISCECTOMY WITH INSTRUMENTATION- C3-C6 instrumented anterior cervical discectomy and fusion with structural allograft (N/A) SPINAL CORD MONITORING (N/A) Subjective Annette Hilariogino seen y in the SICU. Patient is [...] 5/5 5/5 Wrist flexion (C7) 5/5 5/5 Hoop Coiling Machine Operator (C8) 5/5 5/5 Interosseous of hand (T1) [...] Olivier Marion MD at 08/14/2022 8:17 AM WELDING SUPERVISOR ING SUPERVISOR ING SUPERVISOR * Gabriella Kaplan MD - 08/10/2022 8:30 [...] sodium chloride 0.9%, 0.5-20 mL, intra-catheter, Q8H [facility] Continuous Infusions: PRN Meds:. albuterol cyclobenzaprine dextrose [...] 60mg BID CV: #Tachycardia - Follows with overhead distribution engineer; has had full work-up that was unremarkable [...] Joe Trimble MD at 08/13/2022 1:55 PM WELDING SUPERVISOR ING SUPERVISOR ING SUPERVISOR * Sagrario Meyers RN - 08/10/2022 9:34 [...] Collaboration with patient, MD, direct care nurse, Leather Goods Sales Representative, and other members of the health care team to assure needed interventions completed. 2. Return patient to optimal level of self-care post discharge. 3. Engineer Sergeant will follow for Discharge Planning - interventions [...] with the aftercare plan. Sagrario Meyers RN ING SUPERVISOR * Shiva Puente MD - 08/10/2022 6:30 [...] 25 mL/hr, Last Rate: 25 mL/hr (08/09/22 7388) fentaNYL, 0-400 mcg/hr, Last Rate: 75 mcg/hr [...] tolerating PO CV: #Tachycardia - Follows with overhead distribution engineer; has had full work-up that was unremarkable [...] plan with the ICU team and other medical/surgical product sales consultant staff. Shiva Puente MD ING SUPERVISOR ING SUPERVISOR ING SUPERVISOR * Vivek Erickson MD - 08/10/2022 5:59 [...] extension 5/5 5/5 Wrist flexion 5/5 5/5 Hoop Coiling Machine Operator 5/5 5/5 Interosseous of hand 5/5 5/5 [...] intravenous Q15 Min PRN 50 mcg at 08/10/22432 fentaNYL (SUBLIMAZE) bolus from bag 50 mcg [...] issues. If questions arise on patients at [facility] and the appropriate resident/fellow can't be reached or you are calling overnight, please contact [phone] ([facility]- 7:30 PM - 6:30 AM - Floor Resident) or [phone] (24 hours/day - Consult Resident) If you are calling about a patient at [facility] please page/call fellow or resident front end drupal developer. Note created by Vivek Erickson MD on 08/10/2022 at 5:59 AM. Cosigned by Olivier Marion MD at 08/14/2022 8:14 AM WELDING SUPERVISOR ING SUPERVISOR ING SUPERVISOR ING SUPERVISOR * Shamar Lema MD - 08/10/2022 3:00 [...] 5/5 5/5 Wrist flexion (C7) 5/5 5/5 Hoop Coiling Machine Operator (C8) 5/5 5/5 Interosseous of hand (T1) [...] Olivier Marion MD at 08/14/2022 8:17 AM WELDING SUPERVISOR ING SUPERVISOR ING SUPERVISOR * Shamar Lema MD - 08/09/2022 11:45 [...] Wrist flexion (C7) Spontaneously moving Spontaneously moving Hoop Coiling Machine Operator (C8) Spontaneously moving Spontaneously moving Interosseous of [...] Olivier Marion MD at 08/14/2022 8:17 AM WELDING SUPERVISOR ING SUPERVISOR ING SUPERVISOR * Vivek Erickson MD - 08/09/2022 10:25 [...] MD MS Orthopaedic Surgery - Spine Fellow [facility] [place] Cosigned by Olivier Marion MD at 08/14/2022 8:14 AM WELDING SUPERVISOR ING SUPERVISOR ING SUPERVISOR * Vivek Erickson MD - 08/09/2022 6:36 [...] extension 5/5 5/5 Wrist flexion 5/5 5/5 Hoop Coiling Machine Operator 5/5 5/5 Interosseous of hand 5/5 5/5 [...] issues. If questions arise on patients at [facility] and the appropriate resident/fellow can't be reached or you are calling overnight, please contact [phone] ([facility]- 7:30 PM - 6:30 AM - Floor Resident) or [phone] (24 hours/day - Consult Resident) If you are calling about a patient at [facility] please page/call fellow or resident front end drupal developer. Note created by Vivek Erickson MD on 08/09/2022 at 6:36 PM. Cosigned by Olivier Marion MD at 08/14/2022 8:14 AM WELDING SUPERVISOR ING SUPERVISOR ING SUPERVISOR documented in this encounter H&P Notes * Luli Bond MD - 08/09/2022 10:11 PM CST ICU History and Physical Team: Red PM Subjective 62 y/o F presented for anterior C3-C6 ACDF 08/09. Postop course complicated by cervical hematoma evacuated in PACU by SCOTT and intubated w/ difficulty airway (significant swelling; required fiberopticintubation thru LMA). HPI: 62 y/o F with a history of chronic back pain, GERD, fibromyalgia, presented for anterior C3-C6 ACD. Postop course complicated by cervical hematoma evacuated in PACU by SCOTT and intubated w/ difficulty airway (significant swelling; [...] right eye only HYSTEROSCOPY W/ ENDOMETRIAL ABLATION CA UNLISTED LAPAROSCOPY PX INTESTINE XCP RECTUM Intestinal [...] by mouth once a week Sunday Past Week ALPHA LIPOIC ACID ORAL Take 550 mg [...] to surgery. 22 g 0 08/08/2022 omega 8-oon-qiu-fish oil 1,000 mg (120 mg-180 mg) capsule [...] Intake/Output: Intake/Output Summary (Last 24 hours) at 08/09/20222210 Last data filed at 08/09/2022 2155 Gross [...] 3 Goals of care: Full code Luli Bond MD 10:11 PM 08/09/22 Cosigned by Joe Trimble MD at 08/10/2022 7:11 PM WELDING SUPERVISOR ING SUPERVISOR ING SUPERVISOR Associated attestation - Joe Trimble MD - 08/10/2022 7:11 PM WELDING SUPERVISOR I have personally seen and examined this patient on the date of service as documented on the Resident note and have reviewed and confirmed the history, physical exam, laboratory,radiographic data, assessment and plan as documented by the resident. Joe Trimble MD Section of Acute and Critical Care Surgery * iVvek Erickson MD - 08/09/2022 1:00 PM CST [...] Physical Therapy: Yes (for lumbar spine) Prior rn acute care: No Prior Accupuncture: No Past Medical History: [...] right eye only HYSTEROSCOPY W/ ENDOMETRIAL ABLATION CA UNLISTED LAPAROSCOPY PROC,INTESTINE Intestinal Laparoscopy - (Added by TW Conv) SPINE SURGERY upcoming w/Dr. Marion Social [...] prior to surgery. 22 g 0 omega 7-vsw-gnj-fish oil 1,000 mg (120 mg-180 mg) capsule [...] intact Motor: Deltoid Biceps Triceps WE WF Hoop Coiling Machine Operator Right 5 5 5 5 5 5 [...] oblique cervical radiographs were taken 05/09/2022 at [facility]. I personally reviewed these films which demonstrated significant degenerative spondylosis at C3-C6 with loss of cervical lordosis, anterolisthesis of C3 on C4. MRI: Cervical MRI performed on 05/30/2022 at [facility] was personally reviewed by me and redemonstrates [...] proceed. Vivek Erickson MD Surgical Spine Fellow ING SUPERVISOR documented in this encounter Procedure Notes * [...] plan with the patient's team and other medical/surgical product sales consultant staff. This time was in addition [...] spent time documenting in the medical record ING SUPERVISOR * Joe Trimble MD - 08/10/2022 7:29 PM CSTAssociated [...] plan with the ICU team and other medical/surgical product sales consultant staff, making frequent assessments and decisions [...] spent time documenting in the medical record ING SUPERVISOR * Shiva Puente MD - 08/10/2022 8:36 [...] plan with the ICU team and other medical/surgical product sales consultant staff, making frequent assessments and decisions [...] spent time documenting in the medical record ING SUPERVISOR documented in this encounter Nursing Notes * Sandrita Robles RN - 08/12/2022 4:33 PM CST Discharge instructions reviewed with patient and her daughter. They both voice understanding, discharge per home with glassess, cellphone and patient registration manager. ING SUPERVISOR * Loni Lee RN - 08/09/2022 8:50 PM CST Patient emergently returned to OR at this time with surgical and anesthesia team. ING SUPERVISOR documented in this encounter Miscellaneous Notes * [...] Patient and daughter voice understanding of discharge. ING SUPERVISOR * Plan of Care - Fadia Gallo RN - 08/11/2022 10:22 PM WELDING SUPERVISOR Goals: Clinical Goals for the Shift: q4h [...] and injury in home environment Outcome: Defer ING SUPERVISOR * Plan of Care - Jazmin Page [...] neuro checks, pain control, oobtc, VS Q4 ING SUPERVISOR * Plan of Care - Fadia Gallo RN - 08/11/2022 2:22 AM WELDING SUPERVISOR Goals: Clinical Goals for the Shift: q4h [...] injury from restraints (Restraint for Interference with Pot Filler) Description: INTERVENTIONS: 1. Identify and document the [...] Free from restraint(s) (Restraint for Interference with Pot Filler) Description: INTERVENTIONS: 1. Q2H and PRN: Assess and document the continuing need for restraints 2. Q24H: Continued use of restraint requires LIP to perform face to face examination and written order (ICU restraint orders are not reviewed Q24H only at the time of initiation) 3. Identify and implement measures to help patient regain control Outcome: Completed ING SUPERVISOR * Plan of Care - Gabriella Camejo [...] injury from restraints (Restraint for Interference with Pot Filler) Description: INTERVENTIONS: 1. Identify and document the [...] Free from restraint(s) (Restraint for Interference with Pot Filler) Description: INTERVENTIONS: 1. Q2H and PRN: Assess [...] of education and is progressing towards goals. ING SUPERVISOR * Plan of Care - Bela Hdez [...] Patient's Respiratory Status and Intervene as Necessary. ING SUPERVISOR * Plan of Care - Demond Keith [...] on day shift due to difficult airway. ING SUPERVISOR * Plan of Care - Reanna Howard, RN - 08/10/2022 5:37 AM CST Goals: [...] injury from restraints (Restraint for Interference with Pot Filler) Description: INTERVENTIONS: 1. Identify and document the [...] Free from restraint(s) (Restraint for Interference with Pot Filler) Description: INTERVENTIONS: 1. Q2H and PRN: Assess [...] improve to fullest extent possible Outcome: Progressing ING SUPERVISOR * Op Note - Olivier Marion MD [...] identify any But then placed a 15 Montserratian deep drain. then we closed with 3-0 [...] procedure This complex surgery required a skilled assistant professor of history. Please note that Dr Vivek Erickson MD [...] assist with this case Olivier Marion MD ING SUPERVISOR * Brief Op Note - Vivek Erickson MD - 08/09/2022 9:13 PM WELDING SUPERVISOR Operative Progress Note Surgical Team: Surgeon(s) and Role: * Olivier Marion MD - Primary * Vivek Erickson MD - Resident - Assisting Anesthesiologist: Grayson Grnaados MD PhD; Piedad Poe MD Stage Electrician Helper: Gildardo Tovar MD Forensic Psychiatrist: Archana Cordova RN Sanitarian: Darlene Kline RT Scrub Relief: Hua Villa; Lisa Li RN Scrub: Trevin Hatch RN Forensic Psychiatrist Second: Ann Marie Wolf RN DATE OF [...] Olivier Marion MD at 08/14/2022 8:14 AM WELDING SUPERVISOR ING SUPERVISOR ING SUPERVISOR * Perioperative Nursing Note - Loni Lee RN - 08/09/2022 8:03 PM CST 5- The patient was awake and alert, started having some respiratory distress/ acute changes. Under her c-collar was more swollen to touch and her voice was sounding tight. Surgery team notified byphone and flying shear operator called to bedside- nonrebreather mask applied and [...] 1g- given by Dr. Granados at bedside. ING SUPERVISOR ING SUPERVISOR * Op Note - Olivier Marion MD [...] Implant Name Type Inv. Item Serial No. Area Field Person Lot No. LRB No. Used Action MUSCULOSKELETAL TRANSPLANT [id number] FROZEN SPINE 7D LORDOTIC TRAPEZOID SPACER ALLOGRAFT [id number] -[id number] - [id number] MUSCULOSKELETAL TRANSPLANT 12.0q82d9xw Frozen Spine 7d Lordotic Trapezoid Spacer Allograft [id number] Musculoskeletal Transplant N/A 1 Implanted MUSCULOSKELETAL TRANSPLANT [id number] FROZEN SPINE 7D LORDOTIC TRAPEZOID SPACER ALLOGRAFT 066888 -[id number] - [id number] MUSCULOSKELETAL TRANSPLANT 12.8e25b8zt Frozen Spine 7d Lordotic Trapezoid Spacer Allograft 093252 [id number] Musculoskeletal Transplant N/A 1 Implanted MUSCULOSKELETAL TRANSPLANT 12.0C80C1SV FROZEN SPINE 7D LORDOTIC TRAPEZOID SPACER ALLOGRAFT 954573 -[id number] - [id number] MUSCULOSKELETAL TRANSPLANT 12.2h77w6mz Frozen Spine 7d Lordotic Trapezoid Spacer Allograft 840064 [id number] Musculoskeletal Transplant N/A 1 Implanted [employer] 4MM 16MM FIX SCREW BONE [id number] - [id number] [employer] 4mm 16mm Fix Screw Bone [id number] DIANN BIOMET SPINE INC N/A 8 Implanted [employer] C-LIVIA MAXAN 51MM LEVEL 3 FIX SPINE CERVICAL ANTERIOR PLATE BONE [id number] - [id number] [employer] C-livia Maxan 51mm Level 3 Fix Spine Cervical Anterior Plate Bone [id number] [employer] SPINE INC N/A 1 Implanted [...] C5 vertebral body left hand side in [facility] [place] . The we was used and [...] osteophytes We then used a 14 mm Charlotte pin placed in the C3 vertebral body [...] C3-C4 disk space. We then removed the Charlotte pin out of the C3 level and [...] procedure This complex surgery required a skilled assistant professor of history. Please note that Dr Vivek Erickson MD [...] assist with this case Olivier Marion MD ING SUPERVISOR * Brief Op Note - Vivek Erickson MD - 08/09/2022 2:10 PM WELDING SUPERVISOR Operative Progress Note Surgical Team: Surgeon(s) and Role: * Olivier Marion MD - Primary * Wale Dumont MD - Resident - Assisting * Vivek Erickson MD - Fellow Anesthesiologist: Kalina White MD Stage Electrician Helper: Blue Ng DO Forensic Psychiatrist: Kong Law RN Scrub Relief: Familia Marion ST Scrub: Sheri Robles ST Paster Supervisor: Souleymane LawrenceBUTLER, [place]; Gutierrez Herrera ND Barrel Drainer: Matilde Hauser NP [place] Scrub: Coleen Lawton RN [place] Forensic Psychiatrist: Judith Marin RN; Reanna Ramirez RN DATE [...] Implant Name Type Inv. Item Serial No. Area Field Person Lot No. LRB No. Used Action MUSCULOSKELETAL TRANSPLANT [id number] FROZEN SPINE 7D LORDOTIC TRAPEZOID SPACER ALLOGRAFT 869810 -[id number] - [id number] MUSCULOSKELETAL TRANSPLANT 12.9d75p9fa Frozen Spine 7d Lordotic Trapezoid Spacer Allograft 451286 [id number] Musculoskeletal Transplant N/A 1 Implanted MUSCULOSKELETAL TRANSPLANT 12.1G97R0FP FROZEN SPINE 7D LORDOTIC TRAPEZOID SPACER ALLOGRAFT 602365 -[id number] - [id number] MUSCULOSKELETAL TRANSPLANT 12.5q69y1ce Frozen Spine 7d Lordotic Trapezoid Spacer Allograft 850900 [id number] Musculoskeletal Transplant N/A 1 Implanted MUSCULOSKELETAL TRANSPLANT 12.6Q72K5IP FROZEN SPINE 7D LORDOTIC TRAPEZOID SPACER ALLOGRAFT 054352 -[id number] - [id number] MUSCULOSKELETAL TRANSPLANT 12.9i63q3zd Frozen Spine 7d Lordotic Trapezoid Spacer Allograft 559113 [id number] Musculoskeletal Transplant N/A 1 Implanted [employer] 4MM 16MM FIX SCREW BONE [id number] - [id number] [employer] 4mm 16mm Fix Screw Bone [id number] DIANN [employer]ET SPINE INC N/A 8 Implanted [employer] C-LIVIA MAXAN 51MM LEVEL 3 FIX SPINE CERVICAL ANTERIOR PLATE BONE [id number] - [id number] [employer] C-livia Maxan 51mm Level 3 Fix Spine Cervical Anterior Plate Bone [id number] [employer] SPINE INC N/A 1 Implanted Blood/Blood Products Transfused: 0 mls Complications: None Condition on Discharge from the operating room was stable Vivek Erickson MD Date: 08/09/2022 Time: 5:52 PM TEACHING ATTESTATION : I was present and directly participated in the entire procedure (including opening and closing). Cosigned by Olivier Marion MD at 08/14/2022 8:14 AM WELDING SUPERVISOR ING SUPERVISOR ING SUPERVISOR documented in this encounter Plan of Treatment Not on file documented as of this encounter Goals Goal Patient Goal Type Associated Problems Recent Progress Patient-Stated? Author CCM Chronic Pain Care Plan Chronic Care Management Improving( 10:05 AM WELDING SUPERVISOR) No Bessy Mancuso, RUBIO Note: Problem: [...] 3 VIEWS IP Routine 08/12/2022 10:50 AM WELDING SUPERVISOR EGFR STAT 08/12/2022 8:43 AM WELDING SUPERVISOR CBC WITHOUT DIFFERENTIAL STAT 08/12/2022 8:43 AM WELDING SUPERVISOR BASIC METABOLIC PANEL STAT 08/12/2022 8:43 AM WELDING SUPERVISOR EGFR Routine 08/11/2022 8:49 PM WELDING SUPERVISOR DIFFERENTIAL AUTO Routine 08/11/2022 8:4 9 PM WELDING SUPERVISOR CBC WITH AUTO DIFFERENTIAL Routine 08/11/2022 8:49 PM WELDING SUPERVISOR PHOSPHORUS Routine 08/11/2022 8:49 PM WELDING SUPERVISOR MAGNESIUM Routine 08/11/2022 8:49 PM WELDING SUPERVISOR COMPREHENSIVE METABOLIC PANEL Routine 08/11/2022 8:49 PM WELDING SUPERVISOR CRITICAL CARE Routine 08/11/2022 6:40 AM WELDING SUPERVISOR Cervical spinal stenosis POCT GLUCOSE DEVICE Routine 08/10/2022 11:03 PM WELDING SUPERVISOR EGFR Routine 08/10/2022 8:27 PM WELDING SUPERVISOR DIFFERENTIAL AUTO Routine 08/10/2022 8:2 7 PM WELDING SUPERVISOR CBC WITH AUTO DIFFERENTIAL Routine 08/10/2022 8:27 PM WELDING SUPERVISOR PHOSPHORUS Routine 08/10/2022 8:27 PM WELDING SUPERVISOR MAGNESIUM Routine 08/10/2022 8:27 PM WELDING SUPERVISOR COMPREHENSIVE METABOLIC PANEL Routine 08/10/2022 8:27 PM WELDING SUPERVISOR CRITICAL CARE Routine 08/10/2022 7:29 PM WELDING SUPERVISOR Cervical spinal stenosis POCT GLUCOSE DEVICE Routine 08/10/2022 7 :15 PM WELDING SUPERVISOR POCT GLUCOSE DEVICE Routine 08/10/2022 3 :22 PM WELDING SUPERVISOR EXTUBATION Routine 08/10/2022 12:19 PM WELDING SUPERVISOR POCT GLUCOSE DEVICE Routine 08/10/2022 11:28 AM WELDING SUPERVISOR CRITICAL CARE Routine 08/10/2022 8:36 AM WELDING SUPERVISOR Cervical spinal stenosis POCT GLUCOSE DEVICE Routine 08/10/2022 7 :42 AM WELDING SUPERVISOR POCT GLUCOSE DEVICE Routine 08/10/2022 3 :05 AM WELDING SUPERVISOR ECG 12-LEAD Routine 08/10/2022 12:01 AM WELDING SUPERVISOR XR CHEST 1 VIEW ED Urgent/IP Urgent 08/09/2022 11:27 PM WELDING SUPERVISOR EGFR STAT 08/09/2022 11:21 PM WELDING SUPERVISOR DIFFERENTIAL AUTO STAT 08/09/2022 11:21 PM WELDING SUPERVISOR CBC WITH AUTO DIFFERENTIAL STAT 08/09/2022 11:21 PM WELDING SUPERVISOR TRIGLYCERIDES STAT 08/09/2022 11:21 PM WELDING SUPERVISOR PHOSPHORUS STAT 08/09/2022 11:21 PM WELDING SUPERVISOR MAGNESIUM STAT 08/09/2022 11:21 PM WELDING SUPERVISOR BLOOD GAS, ARTERIAL STAT 08/09/2022 11:21 PM WELDING SUPERVISOR LIPID PANEL STAT 08/09/2022 11:21 PM WELDING SUPERVISOR COMPREHENSIVE METABOLIC PANEL STAT 08/09/2022 11:21 PM WELDING SUPERVISOR POCT GLUCOSE DEVICE Routine 08/09/2022 10:51 PM WELDING SUPERVISOR POC BLOOD GAS AND CHEMISTRIES, ARTERIAL Routine 08/09/2022 9:33 PM WELDING SUPERVISOR FL FLUOROSCOPY < 1 HOUR IP Routine 08/09/2022 9:20 PM WELDING SUPERVISOR IRRIGATION AND DEBRIDEMENT ? BACK 08/09/2022 8:42 PM WELDING SUPERVISOR Cervical spinal stenosis Case Notes Requested by Shamar. [phone] HC ANTIBODY SCREEN RBC Timed 8:31 PM WELDING SUPERVISOR FL FLUOROSCOPY < 1 HOUR IP Routine 08/09/2022 5:12 PM WELDING SUPERVISOR SPINAL CORD MONITORING 12:40 PM WELDING SUPERVISOR Spinal stenosis in cervical region Case Notes 07/12: Message sent, regarding block time. (DM) Special Needs Chandan OSI table, fluoroscopy, irrigating bipolar, microscope, velma pi drill, Biomet Maxan plate/screws, [employer] cortico-cancellous ACF graft FUSION CERVICAL ANTERIOR DISCECTOMY WITH INSTRUMENTATION 08/09/2022 12:40 PM WELDING SUPERVISOR Spinal stenosis in cervical region Case Notes 07/12: Message sent, regarding block time. (DM) Special Needs Chandan OSI table, fluoroscopy, irrigating bipolar, microscope, velma pi drill, [employer]omet Maxan plate/screws, [employer] cortico-cancellous ACF graft COVID-19 CORONAVIRUS RNA Routine 08/09/2022 11:12 AM WELDING SUPERVISOR documented in this encounter Results * XR Spine Cervical 2 or 3 Views (08/12/2022 10:50 AM WELDING SUPERVISOR) Anatomical Region Laterality Modality Spine N/A Computed Radiogr aphy 08/12/2022 10:5 4 AM WELDING SUPERVISOR Impressions 08/12/2022 10:54 AM WELDING SUPERVISOR Interval anterior discectomy and instrumented fusion C3-C6. Electronically signed by: Jarod Page M.D. Narrative 08/12/2022 10:54 AM WELDING SUPERVISOR EXAMINATION: Cervical spine 2 or 3 views HISTORY: Cervical spondylosis FINDINGS: 2 views of the cervical spine were performed with comparison made to 07/20/2022. ??There has been interval anterior cervical discectomy and instrumented fusion C3-C6. ??There is prevertebral soft tissue swelling and a surgical drain. ??There is [id number] degenerative disc disease at the nonfused segments. [...] swelling and a surgical drain. There is [id number] degenerative disc disease at the nonfused segments. There is levoscoliosis of the upper thoracic spine. IMPRESSION: Interval anterior discectomy and instrumented fusion C3-C6. Electronically signed by: Jarod Page M.D. us Olivier Marion MD IMG XR PROCEDURES Final Re sult * eGFR (08/12/2022 8:43 AM WELDING SUPERVISOR) eGFR >90 90 - 130 mL/min/1. 73 m2 [facility] Comment: Interpretive Data Reference Interval Normal ?>/= [...] last reviewed 2021. Blood 08/12/2022 8:43 AM WELDING SUPERVISOR 08/12/2022 9:04 AM WELDING SUPERVISOR Olivier Marion MD LAB BLOOD ORDERABLES Final Result [facility] [place] [address] * (ABNORMAL) Basic metabolic panel (08/12/2022 8:43 AM WELDING SUPERVISOR) Pathologist [facility] Sodium 135 135 - 145 mmol/L [facility] Potassium, pl 3.9 3.3 - 4.9 mmol/L [facility] Chloride 96(L) 97 - 110 mmol/L [facility] CO2 32 22 - 32 mmol/L [facility] Anion gap 7 2 - 15 mmol/L [facility] BUN 8 8 - 25 mg/dL [facility] Creatinine 0.57(L) 0.60 - 1.10 mg/dL [facility] Glucose 103 70 - 199 mg/dL [facility] Comment: Interpretive Data Fasting glucose >/= 126 [...] 2017. Calcium 8.9 8.5 - 10.3 mg/dL [facility] Blood 08/12/2022 8:43 AM WELDING SUPERVISOR 08/12/2022 9:04 AM WELDING SUPERVISOR Olivier Marion MD LAB BLOOD ORDERABLES Final Result Performing Organization Address City/[facility]/ZIP Co de Phone Number [facility] [place] [address] * (ABNORMAL) CBC without differential (08/12/2022 8:43 AM WELDING SUPERVISOR) [facility] WBC 7.3 3.8 - 9.9 K/cumm [facility] Hgb 10.5(L) 11.9 - 15.5 g/dL [facility] Hct 32.1(L) 35.6 - 45.5 % [facility] Plt 186 150 - 400 K/cumm [facility] MPV 11.6 9.1 - 12.3 fL [facility] RBC 3.38(L) 3.90 - 5.20 M/cumm [facility] MCV 95.0 81.3 - 96.4 fL [facility] MCH 31.1 27.1 - 33.3 pg [facility] MCHC 32.7 32.3 - 35.7 g/dL [facility] RDW CV 12.3 11.1 - 14.9 % [facility] RDW SD 43.0 35.7 - 48.1 fL [facility] NRBC abs 0.00 0.00 - 0.01 K/cumm [facility] Blood 08/12/2022 8:43 AM WELDING SUPERVISOR 08/12/2022 9:04 AM WELDING SUPERVISOR Olivier Marion MD LAB BLOOD ORDERABLES Final Result [facility] Department [place] [address] * eGFR (08/11/2022 8:49 PM WELDING SUPERVISOR) [facility] eGFR >90 90 - 130 mL/min/1. 73 m2 [facility] Comment: Interpretive Data Reference Interval Normal ?>/= [...] last reviewed 2021. Blood 08/11/2022 8:49 PM WELDING SUPERVISOR 08/11/2022 9:03 PM WELDING SUPERVISOR us Olivier Marion MD LAB BLOOD ORDERABLES Final Result [facility] [place] [address] * Differential, auto (08/11/2022 8:49 PM WELDING SUPERVISOR) Neutrophil abs 5.6 1.7 - 6.5 K/cumm [facility] Imm gran abs 0.1 0.0 - 0.1 K/cumm [facility] Lymphocyte abs 1.9 0.8 - 3.3 K/cumm [facility] Monocyte abs 0.6 0.2 - 0.8 K/cumm [facility] Eosinophil abs 0.0 0.0 - 0.5 K/cumm [facility] Basophil abs 0.0 0.0 - 0.1 K/cumm [facility] Neutrophil pct 68.4 % [facility] Comment: Interpretive Data Percent cell count reference ranges are not reported, since discordance with absolute values may lead to misinterpretation of CBC data. Current Interpretive Data was last revised on 2017. Imm gran pct 0.6 % [facility] Comment: Interpretive Data Percent cell count reference ranges are not reported, since discordance with absolute values may lead to misinterpretation of CBC data. Current Interpretive Data was last revised on 2017. Lymphocyte pct 23.3 % [facility] Comment: Interpretive Data Percent cell count reference ranges are not reported, since discordance with absolute values may lead to misinterpretation of CBC data. Current Interpretive Data was last revised on 2017. Monocyte pct 7.0 % [facility] Comment: Interpretive Data Percent cell count reference ranges are not reported, since discordance with absolute values may lead to misinterpretation of CBC data. Current Interpretive Data was last revised on 2017. Eosinophil pct 0.5 % [facility] Comment: Interpretive Data Percent cell count reference ranges are not reported, since discordance with absolute values may lead to misinterpretation of CBC data. Current Interpretive Data was last revised on 2017. Basophil pct 0.2 % [facility] Comment: Interpretive Data Percent cell count reference ranges are not reported, since discordance with absolute values may lead to misinterpretation of CBC data. Current Interpretive Data was last revised on 2017. Blood 08/11/2022 8:49 PM WELDING SUPERVISOR 08/11/2022 9:03 PM WELDING SUPERVISOR Olivier Marion MD LAB BLOOD ORDERABLES Final Result [facility] Department [place] [address] * (ABNORMAL) Phosphorus (08/11/2022 8:49 PM WELDING SUPERVISOR) Phosphorus, pl 1.6(L) 2.3 - 4.5 mg/dL [facility] Blood 08/11/2022 8:49 PM WELDING SUPERVISOR 08/11/2022 9:03 PM WELDING SUPERVISOR Olivier Marion MD LAB BLOOD ORDERABLES Final Result [facility] Department [place] [address] * Magnesium (08/11/2022 8:49 PM WELDING SUPERVISOR) Pathologist [facility] Magnesium 2.1 1.4 - 2.5 mg/dL [facility] Blood 08/11/2022 8:4 9 PM WELDING SUPERVISOR 08/11/2022 9:03 PM WELDING SUPERVISOR Olivier Marion MD LAB BLOOD ORDERABLES Final Result [facility] Department [place] [address] * (ABNORMAL) Comprehensive metabolic panel (08/11/2022 8:49 PM WELDING SUPERVISOR) [facility] Sodium 133(L) 135 - 145 mmol/L [facility] Comment:Repeated and Verifie d Potassium, pl 3.1(L) 3.3 - 4.9 mmol/L [facility] Chloride 96(L) 97 - 110 mmol/L [facility] CO2 30 22 - 32 mmol/L [facility] Anion gap 7 2 - 15 mmol/L [facility] BUN 12 8 - 25 mg/dL [facility] Creatinine 0.57(L) 0.60 - 1.10 mg/dL [facility] Glucose 126 70 - 199 mg/dL [facility] Comment: Interpretive Data Fasting glucose >/= 126 [...] 2017. Calcium 8.5 8.5 - 10.3 mg/dL [facility] Bilirubin, total 0.3 0.1 - 1.2 mg/dL [facility] Protein, pl 6.5 6.5 - 8.5 g/dL [facility] Albumin 4.0 3.5 - 5.0 g/dL [facility] Alk phos 43 40 - 130 Units/L [facility] ALT 21 7 - 45 Units/L [facility] AST 28 10 - 45 Units/L [facility] Blood 08/11/2022 8:49 PM WELDING SUPERVISOR 08/11/2022 9:03 PM WELDING SUPERVISOR Olivier Marion MD LAB BLOOD ORDERABLES Final Result Performing Organization Address City/[facility] Co de Phone Number [facility] Department [place] [address] * (ABNORMAL) CBC with auto differential (08/11/2022 8:49 PM WELDING SUPERVISOR) WBC 8.2 3.8 - 9.9 K/cumm [facility] Hgb 9.9(L) 11.9 - 15.5 g/dL [facility] Hct 29.4(L) 35.6 - 45.5 % [facility] Plt 166 150 - 400 K/cumm [facility] MPV 11.6 9.1 - 12.3 fL [facility] RBC 3.04(L) 3.90 - 5.20 M/cumm [facility] MCV 96.7(H) 81.3 - 96.4 fL [facility] MCH 32.6 27.1 - 33.3 pg [facility] MCHC 33.7 32.3 - 35.7 g/dL [facility] RDW CV 12.5 11.1 - 14.9 % [facility] RDW SD 43.9 35.7 - 48.1 fL [facility] NRBC abs 0.00 0.00 - 0.01 K/cumm [facility] Blood 08/11/2022 8:49 PM WELDING SUPERVISOR 08/11/2022 9:03 PM WELDING SUPERVISOR Olivier Marion MD LAB BLOOD ORDERABLES Final Result [facility] Department [place] [address] * Critical Care (08/11/2022 6:40 AM WELDING SUPERVISOR) Narrative Shiva Puente MD - 08/11/2022 6:40 AM WELDING SUPERVISOR Shiva Puente MD ? 08/11/2022 ??5:31 PM Critical Care Performed by: Shiva Puente [...] plan with the patient's team and other medical/surgical product sales consultant staff. This time was in addition [...] Result * POCT glucose (08/10/2022 11:03 PM WELDING SUPERVISOR) Glucose, POC 126 70 - 199 mg/dL [facility] Blood 08/10/2022 11:0 3 PM WELDING SUPERVISOR 08/10/2022 11:03 PM WELDING SUPERVISOR us Olivier Marion MD LAB POCT ORDERABLES - AMELIE CE Final Result Performing Organization Address [facility] Co de Phone Number JT PEREZ [facility] Department [place] [address] * eGFR (08/10/2022 8:27 PM WELDING SUPERVISOR) eGFR >90 90 - 130 mL/min/1. [address] [address] [facility] Comment: Interpretive Data Reference Interval Normal ?>/= [...] last reviewed 2021. Blood 08/10/2022 8:27 PM WELDING SUPERVISOR 08/10/2022 8:40 PM WELDING SUPERVISOR us Olivier Marion MD LAB BLOOD ORDERABLES Final Result Performing Organization Address [facility] Co de Phone Number JT PEREZ [facility] Department [place] [address] * (ABNORMAL) Differential, auto (08/10/2022 8:27 PM WELDING SUPERVISOR) Neutrophil abs 10.7(H) 1.7 - 6.5 K/cumm [facility] Imm gran abs 0.1 0.0 - 0.1 K/cumm [facility] Lymphocyte abs 0.8 0.8 - 3.3 K/cumm [facility] Monocyte abs 0.8 0.2 - 0.8 K/cumm [facility] Eosinophil abs 0.0 0.0 - 0.5 K/cumm [facility] Basophil abs 0.0 0.0 - 0.1 K/cumm [facility] Neutrophil pct 86.9 % [facility] Comment: Interpretive Data Percent cell count reference ranges are not reported, since discordance with absolute values may lead to misinterpretation of CBC data. Current Interpretive Data was last revised on 2017. Imm gran pct 0.4 % [facility] Comment: Interpretive Data Percent cell count reference ranges are not reported, since discordance with absolute values may lead to misinterpretation of CBC data. Current Interpretive Data was last revised on 2017. Lymphocyte pct 6.5 % [facility] Comment: Interpretive Data Percent cell count reference ranges are not reported, since discordance with absolute values may lead to misinterpretation of CBC data. Current Interpretive Data was last revised on 2017. Monocyte pct 6.2 % [facility] Comment: Interpretive Data Percent cell count reference ranges are not reported, since discordance with absolute values may lead to misinterpretation of CBC data. Current Interpretive Data was last revised on 2017. Eosinophil pct 0.0 % [facility] Comment: Interpretive Data Percent cell count reference ranges are not reported, since discordance with absolute values may lead to misinterpretation of CBC data. Current Interpretive Data was last revised on 2017. Basophil pct 0.0 % [facility] Comment: Interpretive Data Percent cell count reference ranges are not reported, since discordance with absolute values may lead to misinterpretation of CBC data. Current Interpretive Data was last revised on 2017. Blood 08/10/2022 8:27 PM WELDING SUPERVISOR 08/10/2022 8:40 PM WELDING SUPERVISOR Olivier Marion MD LAB BLOOD ORDERABLES Final Result Performing Organization Address City/[facility]/ZIP Co de Phone Number [facility] [place] [address] * Phosphorus (08/10/2022 8:27 PM WELDING SUPERVISOR) Pathologist [facility] Phosphorus, pl 2.8 2.3 - 4.5 mg/dL [facility] Blood 08/10/2022 8:27 PM WELDING SUPERVISOR 08/10/2022 8:40 PM WELDING SUPERVISOR Olivier Marion MD LAB BLOOD ORDERABLES Final Result Performing Organization Address [facility] Co de Phone Number [facility] [place] [address] * Magnesium (08/10/2022 8:27 PM WELDING SUPERVISOR) [facility] Magnesium 2.4 1.4 - 2.5 mg/dL [facility] Blood 08/10/2022 8:27 PM WELDING SUPERVISOR 08/10/2022 8:40 PM WELDING SUPERVISOR Olivier Marion MD LAB BLOOD ORDERABLES Final Result Performing Organization Address [facility] Co de Phone Number [facility] [place] [address] * (ABNORMAL) Comprehensive metabolic panel (08/10/2022 8:27 PM WELDING SUPERVISOR) Pathologist [facility] Sodium 144 135 - 145 mmol/L [facility] Potassium, pl 4.0 3.3 - 4.9 mmol/L [facility] Chloride 105 97 - 110 mmol/L [facility] CO2 28 22 - 32 mmol/L [facility] Anion gap 11 2 - 15 mmol/L [facility] BUN 8 8 - 25 mg/dL [facility] Creatinine 0.61 0.60 - 1.10 mg/dL [facility] Glucose 141 70 - 199 mg/dL [facility] Comment: Interpretive Data Fasting glucose >/= 126 [...] 2017. Calcium 9.0 8.5 - 10.3 mg/dL [facility] Bilirubin, total 0.4 0.1 - 1.2 mg/dL [facility] Protein, pl 6.9 6.5 - 8.5 g/dL [facility] Albumin 4.2 3.5 - 5.0 g/dL [facility] Alk phos 34(L) 40 - 130 Units/L [facility] ALT 17 7 - 45 Units/L [facility] AST 29 10 - 45 Units/L [facility] Blood 08/10/2022 8:27 PM WELDING SUPERVISOR 08/10/2022 8:40 PM WELDING SUPERVISOR Olivier Marion MD LAB BLOOD ORDERABLES Final Result [facility] Department [place] [address] * (ABNORMAL) CBC with auto differential (08/10/2022 8:27 PM WELDING SUPERVISOR) WBC 12.3(H) 3.8 - 9.9 K/cumm [facility] Hgb 11.1(L) 11.9 - 15.5 g/dL [facility] Hct 34.1(L) 35.6 - 45.5 % [facility] Plt 200 150 - 400 K/cumm [facility] MPV 11.9 9.1 - 12.3 fL [facility] RBC 3.48(L) 3.90 - 5.20 M/cumm [facility] MCV 98.0(H) 81.3 - 96.4 fL [facility] MCH 31.9 27.1 - 33.3 pg [facility] MCHC 32.6 32.3 - 35.7 g/dL [facility] RDW CV 12.6 11.1 - 14.9 % [facility] RDW SD 45.1 35.7 - 48.1 fL [facility] NRBC abs 0.00 0.00 - 0.01 K/cumm [facility] Blood 08/10/2022 8:27 PM WELDING SUPERVISOR 08/10/2022 8:40 PM WELDING SUPERVISOR us Olivier Marion MD LAB BLOOD ORDERABLES Final Result Performing Organization Address City/State/[facility] Co de Phone Number [facility] [place] [address] * Critical Care (08/10/2022 7:29 PM WELDING SUPERVISOR) Narrative Joe Trimble MD - 08/10/2022 7:29 PM WELDING SUPERVISOR Joe Trimble MD ? 08/13/2022 ??1:57 PM [...] plan with the ICU team and other medical/surgical product sales consultant staff, making frequent assessments and decisions [...] ?? us Joe Trimble MD IN CLINIC/BEDSIDE JAGJIT MYRICK Final Result * POCT glucose (08/10/2022 7:15 PM WELDING SUPERVISOR) Glucose, POC 173 70 - 199 mg/dL [facility] Blood 08/10/2022 7:15 PM WELDING SUPERVISOR 08/10/2022 7:15 PM WELDING SUPERVISOR us Olivier Marion MD LAB POCT ORDERABLES - AMELIE CE Final Result Performing Organization Address City/[facility]/ZIP Co de Phone Number [facility] [place] [address] * POCT glucose (08/10/2022 3:22 PM WELDING SUPERVISOR) Glucose, POC 143 70 - 199 mg/dL [facility] Blood 08/10/2022 3:22 PM WELDING SUPERVISOR 08/10/2022 3:22 PM WELDING SUPERVISOR us Olivier Marion MD LAB POCT ORDERABLES - AMELIE CE Final Result Performing Organization Address City/[facility]/ZIP Co de Phone Number [facility] [place] [address] * POCT glucose (08/10/2022 11:28 AM WELDING SUPERVISOR) Glucose, POC 145 70 - 199 mg/dL [facility] Blood 08/10/2022 11:2 8 AM WELDING SUPERVISOR 08/10/2022 11:28 AM WELDING SUPERVISOR us Olivier Marion MD LAB POCT ORDERABLES - AMELIE CE Final Result Performing Organization Address City/[facility]/ZIP Co de Phone Number [facility] [address] * Critical Care (08/10/2022 8:36 AM WELDING SUPERVISOR) Narrative Shiva Puente MD - 08/10/2022 8:36 AM WELDING SUPERVISOR Shiva Puente MD ? 08/10/2022 ??5:13 PM [...] plan with the ICU team and other medical/surgical product sales consultant staff, making frequent assessments and decisions [...] Result * POCT glucose (08/10/2022 7:42 AM WELDING SUPERVISOR) Glucose, POC 145 70 - 199 mg/dL [facility] Blood 08/10/2022 7:42 AM WELDING SUPERVISOR 08/10/2022 7:42 AM WELDING SUPERVISOR Olivier Marion MD LAB POCT ORDERABLES - AMELIE CE Final Result Performing Organization Address City/[facility]/ZIP Co de Phone Number [facility] [place] [address] * POCT glucose (08/10/2022 3:05 AM WELDING SUPERVISOR) Glucose, POC 166 70 - 199 mg/dL [facility] Blood 08/10/2022 3:05 AM WELDING SUPERVISOR 08/10/2022 3:05 AM WELDING SUPERVISOR Olivier Marion MD LAB POCT ORDERABLES - AMELIE CE Final Result Performing Organization Address [facility] de Phone Number [facility] [place] [address] * ECG 12 lead (08/10/2022 12:01 AM WELDING SUPERVISOR) Ventricular Rate EKG/Min 58 BPM [facility] Atrial Rate 58 BPM [facility] CA-Interval (MSEC) 182 ms [facility] QRS-Interval (MSEC) 84 ms [facility] QT-Interval (MSEC) 460 ms [facility] QTc 451 ms [facility] P [place] 63 degrees [facility] R [place] 76 degrees [facility] T [place] 74 degrees [facility] Diagnosis Sinus bradycardia Otherwise normal ECG No previous ECGs available Confirmed by SUSY ESCOBEDO M.D ([id number]) on 08/17/2022 10:03:00 AM [facility] 08/10/2022 12:0 1 AM WELDING SUPERVISOR 08/17/2022 10:03 AM WELDING SUPERVISOR Luli Bond MD ECG ORDERABLES Final Result Performing Organization Address [facility] Co de Phone Number [facility] * X-ray chest 1 view (Portable) (08/09/2022 11:27 PM WELDING SUPERVISOR) Anatomical Region Laterality Modality Body, Chest N/A Computed Radiogr aphy 08/10/2022 8:35 AM WELDING SUPERVISOR Impressions 08/10/2022 8:35 AM WELDING SUPERVISOR The patient is status post cervical spine [...] Yash Martinez M.D. Narrative 08/10/2022 8:35 AM WELDING SUPERVISOR EXAMINATION: 1 view chest radiograph Procedure Note [...] sult * Lipid panel (08/09/2022 11:21 PM WELDING SUPERVISOR) [facility] Cholesterol 101 30 - 199 mg/dL [facility] Comment: Interpretive Data Ages < or = [...] revised on 2018. Triglycerides 39 <=149 mg/dL [facility] Comment: Interpretive Data Ages < or = [...] revised on 2018. HDL 41 >=40 mg/dL [facility] Comment: Interpretive Data Ages < or = [...] on 2018. LDL, calculated 52 <=129 mg/dL [facility] Comment: Telephone report made to: Shira Camejo RN on 08/10/2022 18:55:48 WELDING SUPERVISOR by KF . Interpretive Data Ages < or = [...] revised on 2018. Non-HDL Cholesterol 60 mg/dL [facility] Comment: Interpretive Data Ages < or = [...] last revised on 2018. Chol/HDL ratio [address] [facility] Blood 08/09/2022 11:2 1 PM WELDING SUPERVISOR 08/09/2022 11:42 PM WELDING SUPERVISOR Narrative [facility] - 08/10/2022 6:58 PM WELDING SUPERVISOR Reflex us Olivier Marion MD LAB BLOOD ORDERABLES Edite d Result - Final [facility] Department [place] [address] * eGFR (08/09/2022 11:21 PM WELDING SUPERVISOR) eGFR >90 90 - 130 mL/min/1. 73 m2 [facility] Comment: Interpretive Data Reference Interval Normal ?>/= [...] reviewed 2021. Blood 08/09/2022 11:2 1 PM WELDING SUPERVISOR 08/09/2022 11:42 PM WELDING SUPERVISOR us Olivier Marion MD LAB BLOOD ORDERABLES Final Result Performing Organization Address City/State/[facility] Co de Phone Number [facility] Department [place] [address] * Triglycerides (08/09/2022 11:21 PM WELDING SUPERVISOR) Triglycerides 39 <=149 mg/dL [facility] Comment: Interpretive Data Ages < or = [...] on 2018. Blood 08/09/2022 11:2 1 PM WELDING SUPERVISOR 08/09/2022 11:42 PM WELDING SUPERVISOR Olivier Marion MD LAB BLOOD ORDERABLES Final Result [facility] Department [place] [address] * (ABNORMAL) Differential, auto (08/09/2022 11:21 PM WELDING SUPERVISOR) Neutrophil abs 7.9(H) 1.7 - 6.5 K/cumm [facility] Imm gran abs 0.0 0.0 - 0.1 K/cumm [facility] Lymphocyte abs 0.3(L) 0.8 - 3.3 K/cumm [facility] Monocyte abs 0.3 0.2 - 0.8 K/cumm [facility] Eosinophil abs 0.0 0.0 - 0.5 K/cumm [facility] Basophil abs 0.0 0.0 - 0.1 K/cumm [facility] Neutrophil pct 92.3 % [facility] Comment: Interpretive Data Percent cell count reference ranges are not reported, since discordance with absolute values may lead to misinterpretation of CBC data. Current Interpretive Data was last revised on 2017. Imm gran pct 0.4 % [facility] Comment: Interpretive Data Percent cell count reference ranges are not reported, since discordance with absolute values may lead to misinterpretation of CBC data. Current Interpretive Data was last revised on 2017. Lymphocyte pct 3.9 % [facility] Comment: Interpretive Data Percent cell count reference ranges are not reported, since discordance with absolute values may lead to misinterpretation of CBC data. Current Interpretive Data was last revised on 2017. Monocyte pct 3.3 % [facility] Comment: Interpretive Data Percent cell count reference ranges are not reported, since discordance with absolute values may lead to misinterpretation of CBC data. Current Interpretive Data was last revised on 2017. Eosinophil pct 0.0 % [facility] Comment: Interpretive Data Percent cell count reference ranges are not reported, since discordance with absolute values may lead to misinterpretation of CBC data. Current Interpretive Data was last revised on 2017. Basophil pct 0.1 % [facility] Comment: Interpretive Data Percent cell count reference ranges are not reported, since discordance with absolute values may lead to misinterpretation of CBC data. Current Interpretive Data was last revised on 2017. Blood 08/09/2022 11:2 1 PM WELDING SUPERVISOR 08/09/2022 11:42 PM WELDING SUPERVISOR Olivier Marion MD LAB BLOOD ORDERABLES Final Result [facility] Department [place] [address] * (ABNORMAL) CBC with auto differential (08/09/2022 11:21 PM WELDING SUPERVISOR) WBC 8.6 3.8 - 9.9 K/cumm [facility] Hgb 10.0(L) 11.9 - 15.5 g/dL [facility] Hct 30.3(L) 35.6 - 45.5 % [facility] Plt 196 150 - 400 K/cumm [facility] MPV 11.0 9.1 - 12.3 fL [facility] RBC 3.19(L) 3.90 - 5.20 M/cumm [facility] MCV 95.0 81.3 - 96.4 fL [facility] MCH 31.3 27.1 - 33.3 pg [facility] MCHC 33.0 32.3 - 35.7 g/dL [facility] RDW CV 12.1 11.1 - 14.9 % [facility] RDW SD 42.6 35.7 - 48.1 fL [facility] NRBC abs 0.00 0.00 - 0.01 K/cumm [facility] Blood 08/09/2022 11:2 1 PM WELDING SUPERVISOR 08/09/2022 11:42 PM WELDING SUPERVISOR Olivier Marion MD LAB BLOOD ORDERABLES Final Result Performing Organization Address City/[facility] Co de Phone Number [facility] [place] [address] * Phosphorus (08/09/2022 11:21 PM WELDING SUPERVISOR) Phosphorus, pl 3.1 2.3 - 4.5 mg/dL [facility] Blood 08/09/2022 11:2 1 PM WELDING SUPERVISOR 08/09/2022 11:42 PM WELDING SUPERVISOR Olivier Marion MD LAB BLOOD ORDERABLES Final Result Performing Organization Address City/[facility] Co de Phone Number [facility] [place] [address] * Magnesium (08/09/2022 11:21 PM WELDING SUPERVISOR) Magnesium 1.9 1.4 - 2.5 mg/dL [facility] Blood 08/09/2022 11:2 1 PM WELDING SUPERVISOR 08/09/2022 11:42 PM WELDING SUPERVISOR Olivier Marion MD LAB BLOOD ORDERABLES Final Result Performing Organization Address City/[facility]/ZIP Co de Phone Number [facility] Department [place] [address] * (ABNORMAL) Comprehensive metabolic panel (08/09/2022 11:21 PM WELDING SUPERVISOR) Sodium 143 135 - 145 mmol/L [facility] Potassium, pl 3.8 3.3 - 4.9 mmol/L [facility] Chloride 108 97 - 110 mmol/L [facility] CO2 25 22 - 32 mmol/L [facility] Anion gap 10 2 - 15 mmol/L [facility] BUN 9 8 - 25 mg/dL [facility] Creatinine 0.64 0.60 - 1.10 mg/dL [facility] Glucose 161 70 - 199 mg/dL [facility] Comment: Interpretive Data Fasting glucose >/= 126 [...] 2017. Calcium 8.4(L) 8.5 - 10.3 mg/dL [facility] Bilirubin, total 0.2 0.1 - 1.2 mg/dL [facility] Protein, pl 6.0(L) 6.5 - 8.5 g/dL [facility] Albumin 4.0 3.5 - 5.0 g/dL [facility] Alk phos 29(L) 40 - 130 Units/L [facility] ALT 13 7 - 45 Units/L [facility] AST 15 10 - 45 Units/L [facility] Blood 08/09/2022 11:2 1 PM WELDING SUPERVISOR 08/09/2022 11:42 PM WELDING SUPERVISOR us Olivier Marion MD LAB BLOOD ORDERABLES Final Result [facility] Department [place] [address] * (ABNORMAL) Blood gas, arterial (08/09/2022 11:21 PM WELDING SUPERVISOR) pH, Art 7.34(L) 7.35 - 7.45 [facility] PCO2, Arterial 44 35 - 45 mmHg [facility] PO2, Arterial 181(H) 83 - 108 mmHg [facility] HCO3 Art (Calculated) 24 20 - 30 mmol/L [facility] BE, art -2 mmol/L [facility] Comment: Interpretive Data No Reference Range Established Current Interpretive Data was last revised on 2017 O2 Sat Art (Measured) 100(H) 90 - 95 % [facility] Blood 08/09/2022 11:2 1 PM WELDING SUPERVISOR 08/09/2022 11:28 PM WELDING SUPERVISOR Olivier Marion MD LAB BLOOD ORDERABLES Final Result Performing Organization Address [facility]/ZIP Co de Phone Number [facility] Department [place] [address] * POCT glucose (08/09/2022 10:51 PM WELDING SUPERVISOR) Pathologist [facility] Glucose, POC 173 70 - 199 mg/dL [facility] Blood 08/09/2022 10:5 1 PM WELDING SUPERVISOR 08/09/2022 10:51 PM WELDING SUPERVISOR Olivier Marion MD LAB POCT ORDERABLES - AMELIE CE Final Result Performing Organization Address [facility]/ZIP Co de Phone Number [facility] Department [place] [address] * (ABNORMAL) POC Blood Gas and Chemistries, Arterial - (08/09/2022 9:33 PM WELDING SUPERVISOR) pH, Art POC 7.21(L) 7.35 - 7.45 [facility] pCO2, Art POC 69(H) 35 - 45 mmHg [facility] pO2, Art POC 44(L) 83 - 108 mmHg [facility] Na, POC 139 135 - 145 mmol/L [facility] K POC 3.8 3.3 - 4.9 mmol/L [facility] Comment: Interpretive Data This method is not able to assess for hemolysis, which may falsely increase potassium concentrations. If further testing is needed to evaluate this result, consider in-laboratory plasma potassium. Current Interpretive Data was last revised on 2022. Cl, POC 107 97 - 110 mmol/L [facility] Ionized Ca, POC 5.07 4.50 - 5.10 mg/dL [facility] Glucose, POC 215(H) 70 - 199 mg/dL [facility] Lactate, POC 2.5(H) 0.7 - 2.2 mmol/L [facility] SO2 (godwin) arterial 71(L) 90 - 95 % [facility] Base excess, POC -1.5 mmol/L [facility] HCO3, Art POC 23 20 - 30 mmol/L [facility] Hct, POC 35.0(L) 36.3 - 45.3 % [facility] O2 Sat, Art POC (Calc) 68 % [facility] Total Hb, POC 11.5(L) 11.9 - 15.5 g/dL [facility] Blood 08/09/2022 9:33 PM WELDING SUPERVISOR 08/09/2022 9:33 PM WELDING SUPERVISOR Olivier Marion MD LAB POCT ORDERABLES - AMELIE CE Final Result [facility] Department [place] [address] * [place] Fluoroscopy < 1 Hour (08/09/2022 9:20 PM WELDING SUPERVISOR) Narrative [facility] - 08/10/2022 1:12 AM WELDING SUPERVISOR The images from this study are not interpreted by Radiology. ??Please refer to the physician's procedure / OR operative note. Olivier Marion MD IMG FLUOROSCOPY PROCEDURES Final Result [facility] * Type and screen (08/09/2022 8:31 PM WELDING SUPERVISOR) Anabelle, indirect Negative [facility] ABO Rh B Positive [facility] Blood 08/09/2022 8:31 PM WELDING SUPERVISOR 08/09/2022 8:38 PM WELDING SUPERVISOR [facility]ative [facility] - 08/09/2022 9:30 PM WELDING SUPERVISOR Has the patient had Daratumumab or Isatuximab in the past 6 months?->Unknown Gildardo Tovar MD LAB BLOOD BANK TEST ORDERAB LES Final Result [facility] Department [place] [address] * [place] Fluoroscopy < 1 Hour (08/09/2022 5:12 PM WELDING SUPERVISOR) Narrative [facility] - 08/09/2022 5:14 PM WELDING SUPERVISOR The images from this study are not interpreted by Radiology. ??Please refer to the physician's procedure / OR operative note. Olivier Marion MD IMG FLUOROSCOPY PROCEDURES Final Result [facility] * COVID-19 Coronavirus RNA Nasopharyngeal (08/09/2022 11:12 AM WELDING SUPERVISOR) COVID-19 RNA Negative Negative [facility] Nasopharyngeal 08/09/2022 11 :12 AM WELDING SUPERVISOR 08/09/2022 11:31 AM WELDING SUPERVISOR Narrative [facility] - 08/09/2022 12:09 PM WELDING SUPERVISOR Is the patient experiencing any symptoms consistent with COVID (eg. Fever, cough, shortness of breath)?->No What is the reason for testing?->Bed placement or semi-private room (Rapid) ??Interpretive data: Synonyms for this test include: PCR and NAAT . ??This test is performed using the [employer] Xpress plus assay. This is a real-time [...] . ??This test is performed using the [employer] Xpert Xpress plus assay. This is a [...] Interpretive data last revised December 28, 2021. us Olivier Marion MD LAB MICROBIOLOGY - GENERAL ORDERABLES Final Result Performing Organization Address City/State/ZIP Co al Phone Number [facility] Department [place] [address] documented in this encounter Visit Diagnoses Diagnosis Cervical spinal stenosis Spinal stenosis in cervical region Cervical spinal stenosis Spinal stenosis in cervical region Fibromyalgia Unspecified myalgia and myositis Generalized osteoarthritis Generalized osteoarthrosis, involving multiple sites Muscle spasm Spasm of muscle Osteoporosis Unspecified osteoporosis GERD (gastroesophageal reflux disease) Esophageal reflux Depression Depressive disorder, not elsewhere classified S/P cervical discectomy Other postprocedural status documented in this encounter Admitting Diagnoses Diagnosis Spinal stenosis in cervical region Cervical spinal stenosis Spinal stenosis in cervical region S/P cervical discectomy Other postprocedural status documented in this encounter Administered Medications Inactive Administered Medications - up to 3 most recent administrations Medication Order MAR Action Action Date Dose Rate Site acetaminophen (TYLENOL) tablet 1,000 mg 1,000 mg, oral, Once, On Sun08/09/22 at 1115, For 1 dose, Pre-Op Given 08/09/2022 11:07 AM WELDING SUPERVISOR 1,000 mg acetaminophen (TYLENOL) tablet 1,000 mg 1,000 mg, oral, Every 6 hours scheduled, First dose on Nola 08/10/22 at 1530, Indications: preOPIndications:preOP Given 08/12/2022 12:42 PM WELDING SUPERVISOR 1,000 mg Given 08/12/2022 5:43 AM WELDING SUPERVISOR 1,000 mg Given 08/11/2022 11:16 PM WELDING SUPERVISOR 1,000 mg ARIPiprazole (ABILIFY) tablet 12.5 mg 12.5 mg, oral, Nightly, First dose (after last modification) on Sun08/11/22 at 2100 Given 08/11/2022 8:35 PM WELDING SUPERVISOR 12 .5 mg ARIPiprazole (ABILIFY) tablet 5 mg 5 mg, oral, Nightly, First dose on Sun08/10/22 at 2100 Given 08/10/2022 8:11 PM WELDING SUPERVISOR 5 mg ARIPiprazole (ABILIFY) tablet 7.5 mg 7.5 mg, oral, Nightly, First dose on Sun08/10/22 at 2100 Given 08/10/2022 8:10 PM WELDING SUPERVISOR 7.5 mg baclofen (LIORESAL) tablet 10 mg 10 mg, oral, 4 times daily, First dose on Sun08/11/22 at 1200 Given 08/12/2022 12:42 PM WELDING SUPERVISOR 10 mg Given 08/12/2022 8:04 AM WELDING SUPERVISOR 10 mg Given 08/11/2022 8:35 PM WELDING SUPERVISOR 10 mg ceFAZolin (ANCEF) 1 gram/10 mL in sterile water (premix) 1,000 mg 1,000 mg, intravenous, at 200 mL/hr, Administer over 3 Minutes, Every 8 hours, First dose on Sun08/10/22 at 0500, For 3 doses, Beginning 8 hours after last brittany-procedural dose., Indications: Prophylaxis, SurgicalIndications:Prophylaxis, Surgical Given 08/10/2022 9:10 PM WELDING SUPERVISOR 1,000 mg 200 mL/hr Given 08/10/2022 2:30 PM WELDING SUPERVISOR 1,000 mg 200 mL/hr Given 08/10/2022 6:15 AM WELDING SUPERVISOR 1,000 mg 200 mL/hr chlorhexidine (PERIDEX) 0.12 % solution 15 mL 15 mL, mouth/throat, 2 times daily, First dose on Sun08/09/22 at 2345, Swab all oral surfaces and suction excess. Discontinue Chlorhexidine Gluconate after patient liberated from mechanical ventilation., Indications: Prevention of Ventilator-Associated PneumoniaIndications:Prevention of Ventilator-Associated Pneumonia Given 08/10/2022 9:00 AM WELDING SUPERVISOR 15 mL Given 08/09/2022 11:41 PM WELDING SUPERVISOR 15 mL cyclobenzaprine (FLEXERIL) tablet 5 mg 5 mg, oral, 3 times daily PRN, muscle spasms, Starting on Sun08/10/22 at 1742 Given 08/10/2022 6:16 PM WELDING SUPERVISOR 5 mg dexAMETHasone (DECADRON) 4 mg/mL injection - ADS Override Pull Starting on Sun08/09/22 at 1936, For 1 dose, Created by cabinet override dexAMETHasone (DECADRON) 4 mg/mL injection 10 mg 10 mg, intravenous, Administer over 2 Minutes, Every 6 hours scheduled, First dose on Sun08/10/22 at 0000 Given 08/10/2022 10:52 AM WELDING SUPERVISOR 10 mg Given 08/10/2022 6:15 AM WELDING SUPERVISOR 10 mg Given 08/09/2022 11:31 PM WELDING SUPERVISOR 10 mg dexAMETHasone (DECADRON) 4 mg/mL injection 8 mg 8 mg, intravenous, Administer over 2 Minutes, Once, On Sun08/09/22 at 2015, For 1 dose, Phase I Given 08/09/2022 7:40 PM WELDING SUPERVISOR 8 mg dextrose 5% and Lactated Ringer's infusion 25 mL/hr, intravenous, Continuous, Starting on Sun08/09/22 at 2345 Rate/Dose Verify 08/10/2022 6:00 PM WELDING SUPERVISOR 25 mL/hr 25 mL/hr Rate/Dose Verify 08/10/2022 5:00 PM WELDING SUPERVISOR 25 mL/hr 25 mL/h r Rate/Dose Verify 08/10/2022 4:00 PM WELDING SUPERVISOR 25 mL/hr 25 mL/h r dextrose 5% and sodium chloride 0.9% infusion (premix) 75 mL/hr, intravenous, Continuous, Starting on Sun08/09/22 at 1845, Phase I & Post-op Floor, Discontinue when tolerating PO (500 mL in 8 hours). New Bag 08/09/2022 6:14 PM WELDING SUPERVISOR 75 mL/hr 75 mL/hr DULoxetine DR (CYMBALTA) extended release capsule 60 mg 60 mg, oral, 2 times daily, First dose on Sun08/10/22 at 2100, Capsule may be opened and contents mixed with applesauce or apple juice ONLY. Do not crush, chew, cut, dissolve, open or otherwise manipulate tablet/capsule., Indications: Anxiety with DepressionIndications:Anxiety with Depression Given 08/12/2022 8:06 AM WELDING SUPERVISOR 60 mg Given 08/11/2022 8:34 PM WELDING SUPERVISOR 60 mg Given 08/11/2022 9:00 AM WELDING SUPERVISOR 60 mg estradiol-norethindrone (ACTIVELLA) 0.5-0.1 mg per tablet 1 tablet 1 tablet, oral, Nightly, First dose on Nola 08/10/22 at 2100 Given 08/11/2022 8:34 PM WELDING SUPERVISOR 1 tablet Given 08/10/2022 8:10 PM WELDING SUPERVISOR 1 tablet fentaNYL (SUBLIMAZE) bolus from bag 50 mcg 50 mcg, intravenous, Every 15 min PRN, breakthrough pain, Starting on Sun08/09/22 at 2258, Discontinue when patient extubated. ??, Indications: PainIndications:Pain Bolus from Bag 08/10/2022 4:33 AM WELDING SUPERVISOR 50 mcg Bolus from Bag 08/10/2022 1:21 AM WELDING SUPERVISOR 50 mcg fentaNYL (SUBLIMAZE) bolus from bag 50 mcg 50 mcg, intravenous, Every 15 min PRN, painful stimuli include turning, bathing, nasotracheal suctioning, physical therapy, dressing changes, and intravenous catheter and invasive line placement., Starting on Sun08/09/22 at 2258, Discontinue when patient extubated. ??, Indications: PainIndications:Pain Bolus from Bag 08/10/2022 6:20 AM WELDING SUPERVISOR 50 mcg fentaNYL 2500 mcg/50 mL cassette/syringe (premix) 0-400 mcg/hr (0-8 mL/hr), intravenous, Titrated, Starting [...] 4, 5, 6, Indications: Pain in Intubated PatientsIndications:Pain in Intubated Patients Rate/Dose Verify 08/10/2022 5:00 AM WELDING SUPERVISOR 75 mcg/hr 1.5 mL/hr Rate/Dose Change 08/10/2022 4:32 AM WELDING SUPERVISOR 75 mcg/hr 1.5 mL/ hr Rate/Dose Verify 08/10/2022 4:00 AM WELDING SUPERVISOR 50 mcg/hr 1 mL/hr fentaNYL 2500 mcg/50 mL cassette/syringe (premix) 0-400 mcg/hr (0-8 mL/hr), intravenous, Titrated, Starting on Sun08/10/22 at 0915, CONTINUE current rate if pain [...] 2, 3, 4, Indications: Pain in Intubated PatientsIndications:Pain in Intubated Patients Rate/Dose Verify 08/10/2022 2:00 PM WELDING SUPERVISOR 50 mcg/hr 1 mL/hr Rate/Dose Verify 08/10/2022 1:00 PM WELDING SUPERVISOR 50 mcg/hr 1 mL/hr Rate/Dose Change 08/10/2022 12:15 PM WELDING SUPERVISOR 50 mcg/hr 1 mL/h r gabapentin (NEURONTIN) capsule 300 mg 300 mg, oral, 2 times daily, First dose on Sun08/10/22 at 2100 Given 08/12/2022 8:06 AM WELDING SUPERVISOR 300 mg Given 08/11/2022 8:34 PM WELDING SUPERVISOR 300 mg Given 08/11/2022 9:00 AM WELDING SUPERVISOR 300 mg gabapentin (NEURONTIN) capsule 600 mg 600 mg, oral, Once, On Sun08/09/22 at 1115, For 1 dose, Pre-Op, Indications: PainIndications:Pain Given 08/09/2022 11:07 AM WELDING SUPERVISOR 600 mg HYDROmorphone (DILAUDID) injection 0.5 mg 0.5 mg, intravenous, Administer over 2 Minutes, Every 10 min PRN, 1st line for pain, Starting on Sun08/09/22 at 1806, Phase I, Switch to 2nd line analgesic order if pain is uncontrolled or increasing after 2 doses. Notify Anesthesiologist if total PACU dose reaches 2 mg and pain score 5/10 or more., Indications: PainIndications:Pain Given 08/09/2022 7:04 PM WELDING SUPERVISOR 0.5 mg Given 08/09/2022 6:47 PM WELDING SUPERVISOR 0.5 mg Lactated Ringer's (LR) bolus 500 mL 500 mL, intravenous, at 500 mL/hr, Administer over 1 Hours, Once, On Sun08/09/22 at 2345, For 1 dose New Bag 08/09/2022 11:41 PM WELDING SUPERVISOR 500 mL 500 mL/hr Lactated Ringer's (LR) infusion 30 mL/hr, intravenous, Continuous, Starting on Sun08/09/22 at 1115, Pre-Op Rate/Dose Verify 08/09/2022 8:30 PM WELDING SUPERVISOR 30 mL/hr Restarted 08/09/2022 2:00 PM WELDING SUPERVISOR Rate/Dose Verify 08/09/2022 12:34 PM WELDING SUPERVISOR 30 mL/ hr magnesium sulfate 2 g/50 mL in water (premix) 2 g 2 g, intravenous, Administer over 60 Minutes, Once, On Sun08/10/22 at 0130, For 1 dose New Bag 08/10/2022 1:18 AM WELDING SUPERVISOR 2 g methocarbamoL (ROBAXIN) tablet 1,000 mg 1,000 mg, oral, Every 8 hours, First dose on Sun08/10/22 at 1815 Given 08/12/2022 10:56 AM WELDING SUPERVISOR 1,000 mg Given 08/12/2022 1:24 AM WELDING SUPERVISOR 1,000 mg Given 08/11/2022 5:09 PM WELDING SUPERVISOR 1,000 mg metoprolol XL (TOPROL-XL) extended release tablet 25 mg 25 mg, oral, Daily, First dose on Sun08/10/22 at 1530, Tablets that are scored may be split, but do not crush, chew, dissolve, open or otherwise manipulate tablet/capsule. Given 08/12/2022 8:05 AM WELDING SUPERVISOR 25 m g Given 08/11/2022 9:00 AM WELDING SUPERVISOR 25 mg Given 08/10/2022 3:21 PM WELDING SUPERVISOR 25 mg montelukast (SINGULAIR) tablet 10 mg 10 mg, oral, Nightly, First dose on [place]ola 08/10/22 at 2100, Indications: Seasonal Allergic RhinitisIndications:Seasonal Allergic Rhinitis Given 08/11/2022 8:34 PM WELDING SUPERVISOR 10 mg Given 08/10/2022 8:10 PM WELDING SUPERVISOR 10 mg oxyCODONE (ROXICODONE) tablet 10 mg 10 mg, oral, Every 3 hours PRN, 2nd line for pain, Starting on Sun08/10/22 at 2331, Indications: PainIndications:Pain Given 08/11/2022 5:48 AM WELDING SUPERVISOR 10 mg oxyCODONE (ROXICODONE) tablet 5 mg 5 mg, oral, Every 4 hours PRN, 1st line for pain, Starting on Sun08/10/22 at 1458, Indications: PainIndications:Pain Given 08/10/2022 3:21 PM WELDING SUPERVISOR 5 mg oxyCODONE (ROXICODONE) tablet 5 mg 5 mg, oral, Every 3 hours PRN, 2nd line for pain, Starting on Sun08/10/22 at 1900, Indications: PainIndications:Pain Given 08/10/2022 11:10 PM WELDING SUPERVISOR 5 mg Given 08/10/2022 7:52 PM WELDING SUPERVISOR 5 mg oxyCODONE (ROXICODONE) tablet 5 mg 5 mg, oral, Every 3 hours PRN, 2nd line for pain, Starting on Sun08/11/22 at 1019, Indications: PainIndications:Pain Given 08/11/2022 8:35 PM WELDING SUPERVISOR 5 mg oxyCODONE (ROXICODONE) tablet 5 mg 5 mg, oral, Every 4 hours PRN, 2nd line for pain, Starting on Sun08/12/22 at 0045, Indications: PainIndications:Pain Given 08/12/2022 2:04 PM WELDING SUPERVISOR 5 mg Given 08/12/2022 5:42 AM WELDING SUPERVISOR 5 mg Given 08/12/2022 1:24 AM WELDING SUPERVISOR 5 mg phenylephrine in 0.9% sodium chloride (ALEXIA-SYNEPHRINE) 25,000 mcg/250 mL (100 mcg/mL) infusion (premix) solution - ADS Override Pull Starting on Sun08/09/22 at 2006, For 1 dose, Created by cabinet override Protect from light phenylephrine in 0.9% sodium chloride (ALEXIA-SYNEPHRINE) 25,000 mcg/250 mL (100 mcg/mL) infusion (premix) solution 0-4 mcg/kg/min ? 70.3 kg (0-168.72 mL/hr), 100 mcg/mL, intravenous, Titrated, Starting on Sun08/09/22 at 2045, Until Sun08/09/22 at 2302, Phase I, Initial rate: 0.5 mcg/kg/min, Titrate: Up/Down, Titrate by: 0.1 mcg/kg/min, Every: 2 minutes, Goal: MAP, MAP Goal: 60-70 mmHg, Protect from light, STAT Rate/Dose Verify 08/09/2022 10:50 PM WELDING SUPERVISOR 0.4 mcg/kg/min 16.87 mL/hr Rate/Dose Change 08/09/2022 10:42 PM WELDING SUPERVISOR 0.4 mcg/kg/min 16 .872 mL/hr Rate/Dose Change 08/09/2022 10:41 PM WELDING SUPERVISOR 0.3 mcg/kg/min 12 .654 mL/hr phenylephrine in 0.9% sodium chloride (ALEXIA-SYNEPHRINE) 25,000 mcg/250 mL (100 mcg/mL) infusion (premix) solution 0-4 mcg/kg/min ? 70.3 kg (0-168.72 mL/hr), 100 mcg/mL, intravenous, Titrated, Starting on Sun08/09/22 at 2345, Until Nola 08/10/22 at 0844, Indications: Hypotension, Initial rate: 0.5 mcg/kg/min, Titrate: Up/Down, Titrate by: 0.1 mcg/kg/min, Every: 2 minutes, Goal: MAP, MAP Goal: 65-75 mmHg, Protect from light, RoutineIndications:Hypo tension Rate/Dose Change 08/10/2022 1:07 AM WELDING SUPERVISOR 0.1 mcg/kg/min 4.22 mL/hr Rate/Dose Verify 08/10/2022 1:00 AM WELDING SUPERVISOR 0.2 mcg/kg/min 8.4 4 mL/hr Rate/Dose Change 08/10/2022 12:13 AM WELDING SUPERVISOR 0.2 mcg/kg/min 8. 44 mL/hr polyethylene glycol (MIRALAX) packet 17 g 17 g, oral, Daily, First dose on Sun08/11/22 at 1500, Indications: constipationIndications:constipation Given 08/11/2022 3:41 PM WELDING SUPERVISOR 17 g potassium chloride 20 mEq/260 mL in sodium chloride 0.9% (premix) 20 mEq 20 mEq, intravenous, Administer over 2 Hours, Once, On Nola 08/10/22 at 0130, For 1 dose, Indications: hypokalemiaIndications:hypokalemia New Bag 08/10/2022 2:28 AM WELDING SUPERVISOR 20 mEq potassium chloride ER (KLOR-CON) extended release tablet 40 mEq 40 mEq, oral, Every 4 hours, First dose on Sun08/11/22 at 2245, For 2 doses, Total dose = 80 mEq Do not crush, chew, cut, dissolve, open or otherwise manipulate tablet/capsule. Given 08/12/2022 5:42 AM WELDING SUPERVISOR 40 mEq Given 08/11/2022 11:16 PM WELDING SUPERVISOR 40 mEq propofol (DIPRIVAN) 10 mg/mL infusion 0-50 mcg/kg/min ? 70.3 kg (0-21.09 mL/hr), 10 mg/mL, intravenous, Titrated, Starting on Sun08/09/22 at 2045, Until Sun08/09/22 at 2302, Phase I, Titration instructions: Titrate, Initial dose: 30 mcg/kg/min, Titrate: Up/Down, Titrate by: 10 mcg/kg/min, Every: 10 minutes, Goal: RASS, RASS Goal: -3, Do not administer through the same I.V. catheter with blood or plasma. Tubing and any unused portions of propofol vials should be discarded after 12 hours. Room temperature only, STAT Rate/Dose Change 08/09/2022 10:50 PM WELDING SUPERVISOR 30 mcg/kg/min 12.65 mL/hr Rate/Dose Change 08/09/2022 10:40 PM WELDING SUPERVISOR 25 mcg/kg/min 10. 545 mL/hr Given 08/09/2022 10:35 PM WELDING SUPERVISOR 50 mg propofol (DIPRIVAN) 10 mg/mL infusion 0-50 mcg/kg/min ? 70.3 kg (0-21.09 mL/hr), 10 mg/mL, intravenous, Titrated, Starting on Sun08/09/22 at 2345, Until Nola 08/10/22 at 1458, Indications: Sedation in Intubated Patients, Titration instructions: Titrate, Initial dose: 20 mcg/kg/min, Titrate: Up/Down, Titrate by: 10 mcg/kg/min, Every: 10 minutes, Goal: RASS, RASS Goal: 0, -1, -2, Discontinue when patient extubated. Room temperature only, RoutineIndications:Sedat ion in Intubated Patients Rate/Dose Verify 08/10/2022 12:00 PM WELDING SUPERVISOR 30 mcg/kg/min 12.65 mL/hr Rate/Dose Verify 08/10/2022 11:00 AM WELDING SUPERVISOR 30 mcg/kg/min 12. 65 mL/hr New Bag 08/10/2022 10:53 AM WELDING SUPERVISOR 30 mcg/kg/min 12.65 mL/ hr propofoL (DIPRIVAN) 10 mg/mL IV - ADS Override Pull Starting on Sun08/09/22 at 1944, For 1 dose, Created by cabinet override Room temperature only ramelteon (ROZEREM) tablet 8 mg 8 mg, oral, Nightly PRN, sleep, Starting on Sun08/10/22 at 1951, Indications: Sleep-Onset InsomniaIndications:Sleep-Onset Insomnia Given 08/11/2022 8:35 PM WELDING SUPERVISOR 8 m g Given 08/10/2022 8:10 PM WELDING SUPERVISOR 8 mg senna-docusate (PERICOLACE) 8.6-50 mg per tablet 1 tablet 1 tablet, oral, Nightly, First dose on Sun08/10/22 at 2100 Given 08/11/2022 8:35 PM WELDING SUPERVISOR 1 tablet Given 08/10/2022 8:10 PM WELDING SUPERVISOR 1 tablet sodium chloride 0.9% flush 0.5-20 mL 0.5-20 mL, intra-catheter, Every 8 hours scheduled, First dose on Sun08/09/22 at 2345, Flush volume based on line type and size. Given 08/12/2022 4:13 AM WELDING SUPERVISOR 10 mL Given 08/11/2022 8:37 PM WELDING SUPERVISOR 10 mL Given 08/11/2022 5:25 AM WELDING SUPERVISOR 10 mL sodium chloride 0.9% flush 0.5-20 mL 0.5-20 mL, intra-catheter, As needed, line care, Starting on Sun08/09/22 at 2258, Flush volume based on line type and size. Flush before and after each use. sodium phosphate - potassium phosphate (K-PHOS NEUTRAL) tablet 500 mg 500 mg, oral, 4 times daily (with meals and nightly), First dose on 08/12/22 at 0800, For 4 doses, Each tablet contains elemental phosphorus 250 mg (8 mmol), potassium 45 mg (1.1 mEq), and sodium 298 mg (13 mEq). Given 08/12/2022 12:42 PM WELDING SUPERVISOR 500 mg Given 08/12/2022 8:06 AM WELDING SUPERVISOR 500 mg vancomycin 1,000 mg/200 mL in sodium chloride 0.9% (premix) 1,000 mg 1,000 mg, intravenous, Administer over 60 Minutes, Once, On Nola 08/10/22 at 0130, For 1 dose, Administer 12 hours after last pre-operative dose., Indications: Prophylaxis, SurgicalIndications:Prophylaxis, Surgical New Bag 08/10/2022 1:18 AM WELDING SUPERVISOR 1,000 mg documented in this encounter Discontinued Medications Medication [...] Recently Administered Medications Times are shown in WELDING SUPERVISOR. Scheduled Medication Order 08/10/2022 08/11/2022 08/12/2022 acetaminophen (TYLENOL) tablet 1,000 mg 1,000 mg, oral, Every 6 hours scheduled, First dose on Sun08/10/22 at 1530, Indications: preOP 1521 (Given - Provider: Gabriella Camejo, RUBIO)2310 (Given - Provider: Fadia Gallo RN) 0548 (Given - Provider: Fadia Gallo RN)1214 (Given - Provider: Hafsa Moore, RUBIO)1709 (Given - Provider: Jazmin Page RN)2316 (Given - Provider: Fadia Gallo RN) 0543 (Given - Provider: Fadia Gallo RN)1242 (Given - Provider: Sandrita Robles RN) ARIPiprazole (ABILIFY) tablet 12.5 mg 12.5 mg, oral, Nightly, First dose (after last modification) on Sun08/11/22 at 2099 2034 (Given - Provider: Fadia Gallo RN) ARIPiprazole (ABILIFY) tablet 5 mg (CANCELED) 5 mg, oral, Nightly, First dose on Sun08/10/22 at 2099 2010 (Given - Provider: Fadia Gallo RN) ARIPiprazole (ABILIFY) tablet 7.5 mg (CANCELED) 7.5 mg, oral, Nightly, First dose on Sun08/10/22 at 2099 2009 (Given - Provider: Fadia Gallo RN) baclofen (LIORESAL) tablet 10 mg 10 mg, oral, 4 times daily, First dose on Sun08/11/22 at 1200 1214 (Given - Provider: Hafsa Moore, RUBIO)1709 (Given - Provider: Jazmin Page RN)2034 (Given - Provider: Fadia Gallo, RUBIO) 0804 (Given - Provider: Sandrita Robles, RN)1242 (Given - Provider: Sandrita Robles, RUBIO) ceFAZolin (ANCEF) 1 gram/10 mL in sterile water (premix) 1,000 mg (COMPLETED) 1,000 mg, intravenous, at 200 mL/hr, Administer over 3 Minutes, Every 8 hours, First dose on Sun08/10/22 at 0500, For 3 doses, Beginning 8 hours after last brittany-procedural dose., Indications: Prophylaxis, Surgical 0615 (Given - Provider: Reanna Howard, RN)1430 (Given - Provider: Gabriella Camejo, RUBIO)2109 (Given - Provider: Fadia Gallo RN) chlorhexidine (PERIDEX) 0.12 % solution 15 mL (CANCELED) 15 mL, mouth/throat, 2 times daily, First dose on Sun08/09/22 at 2345, Swab all oral surfaces and suction excess. Discontinue Chlorhexidine Gluconate after patient liberated from mechanical ventilation., Indications: Prevention of Ventilator-Associated Pneumonia 899 (Given - Provider: Gabriella Camejo, RUBIO) dexAMETHasone (DECADRON) 4 mg/mL injection 10 mg (CANCELED) 10 mg, intravenous, Administer over 2 Minutes, Every 6 hours scheduled, First dose on Sun08/10/22 at 0000 0615 (Given - Provider: Reanna Howard, RUBIO)1052 (Given - Provider: Gabriella Camejo, RUBIO) DULoxetine DR (CYMBALTA) extended release capsule 60 mg 60 mg, oral, 2 times daily, First dose on Sun08/10/22 at 2100, Capsule may be opened and contents mixed with applesauce or apple juice ONLY. Do not crush, chew, cut, dissolve, open or otherwise manipulate tablet/capsule., Indications: Anxiety with Depression 2009 (Given - Provider: Fadia Gallo, RUBIO) 09 (Given - Provider: Idania Patel, RUBIO)2033 (Given - Provider: Fadia Gallo RN) 08 (Given - Provider: Sandrita RoblesRUBIO) estradiol-norethindrone (ACTIVELLA) 0.5-0.1 mg per tablet 1 tablet 1 tablet, oral, Nightly, First dose on Sun08/10/22 at 2099 2009 (Given - Provider: Fadia Gallo RN) 2033 (Given - Provider: Fadia Gallo RN) gabapentin (NEURONTIN) capsule 300 mg 300 mg, oral, 2 times daily, First dose on Sun08/10/22 at 2099 2009 (Given - Provider: Fadia Gallo RN) 0900 (Given - Provider: Idania Patel, RUBIO)2033 (Given - Provider: Fadia Gallo, RUBIO) 0806 (Given - Provider: Sandrita Robles, RUBIO) magnesium sulfate 2 g/50 mL in water (premix) 2 g (COMPLETED) 2 g, intravenous, Administer over 60 Minutes, Once, On Sun08/10/22 at 0130, For 1 dose 0118 (New Bag - Provider: Reanna Howard, RUBIO) methocarbamoL (ROBAXIN) tablet 1,000 mg 1,000 mg, oral, Every 8 hours, First dose on Sun08/10/22 at 1815 1816 (Given - Provider: Gabriella Camejo RN) 0238 (Given - Provider: Fadia Gallo RN)0900 (Given - Provider: Idania Patel, RUBIO)1709 (Given - Provider: Jazmin Page RN) 0124 (Given - Provider: Fadia Gallo [...] Gallo RN) 2033 (Given - Provider: Fadia Gallo RN) polyethylene glycol (MIRALAX) packet 17 g 17 g, oral, Daily, First dose on Sun08/11/22 at 1500, Indications: constipation 1541 (Given - Provider: Jazmin Page RN) 0805 (Not Given - Provider: Sandrita Robles RN - Reason: Patient/family refused) potassium chloride 20 mEq/260 mL in sodium chloride 0.9% (premix) 20 mEq (COMPLETED) 20 mEq, intravenous, Administer over 2 Hours, Once, On Sun08/10/22 at 0130, For 1 dose, Indications: hypokalemia 0228 (New Bag - Provider: Reanna Howard RN) potassium chloride ER (KLOR-CON) extended release tablet [...] Nightly, First dose on Sun08/10/22 at 2100 2009 (Given - Provider: Fadia [...] Surgical 0118 (New Bag - Provider: Reanna Howard, RUBIO) Continuous Medication Order 08/10/2022 08/11/2022 08/12/2022 dextrose 5% and Lactated Ringer's infusion (CANCELED) 25 mL/hr, intravenous, Continuous, Starting on 08/09/22 at 2345 0700 (Rate/Dose Verify - Provider: Gabriella Camejo RN)0800 (Rate/Dose Verify - Provider: Gabriella Camejo RN)0900 (Rate/Dose Verify - Provider: Gabriella Camejo, RN)1000 (Rate/Dose Verify - Provider: Gabriella Camejo RN)1100 (Rate/Dose Verify - Provider: Gabriella Camejo RN)1200 (Rate/Dose Verify - Provider: Gabriella Camejo, RN)1300 (Rate/Dose Verify - Provider: Gabriella Camejo, RN)1400 (Rate/Dose Verify - Provider: Gabriella Camejo RN)1500 (Rate/Dose Verify - Provider: Gabriella Camejo RN)1600 (Rate/Dose Verify - Provider: Gabriella Camejo RN)1700 (Rate/Dose Verify - Provider: Gabriella Camejo RN)1800 (Rate/Dose Verify - Provider: Gabriella Camejo RN)1900 (Stopped - Provider: Fadia Gallo, RUBIO)2010 (Stopped - Provider: Fadia Gallo RN) fentaNYL [...] mcg/hr (0-8 mL/hr), intravenous, Titrated, Starting on Sun08/10/22 at 0915, CONTINUE current rate if pain [...] Camejo RN)1300 (Rate/Dose Verify - Provider: Gabriella Camejo, RN)1400 (Rate/Dose Verify - Provider: Gabriella Camejo RN)1529 (Stopped (Dual Sign) - Provider: Gabriella Camejo RN) phenylephrine in 0.9% sodium chloride (ALEXIA-SYNEPHRINE) 25,000 mcg/250 mL (100 mcg/mL) infusion (premix) solution (CANCELED) 0-4 mcg/kg/min ? 70.3 kg (0-168.72 mL/hr), 100 mcg/mL, intravenous, Titrated, Starting on 08/09/22 at 2345, Until Nola 08/10/22 at 0844, [...] Howard RN)0700 (Rate/Dose Verify - Provider: Gabriella Camejo, RUBIO)0800 (Rate/Dose Verify - Provider: Gabriella Camejo, RN)0900 (Rate/Dose Verify - Provider: Nahed Kaplan, HEALTHCARE RECRUITER)1000 (Rate/Dose Verify - Provider: Gabriella Camejo, RN)1053 (New Bag - Provider: Gabriella Camejo, RN)1100 (Rate/Dose Verify - Provider: Gabriella Camejo, RN)1200 (Rate/Dose Verify - Provider: Gabriella Camejo, RN)1215 (Stopped - Provider: Gabriella Camejo, RN) PRN Medication Order 08/10/2022 08/11/2022 08/12/2022 cyclobenzaprine (FLEXERIL) tablet 5 mg 5 mg, oral, 3 times daily PRN, muscle spasms, Starting on Nola 08/10/22 at 1742 1816 (Given - Provider: Gabriella Camejo, RN) fentaNYL (SUBLIMAZE) bolus from bag 50 mcg (CANCELED) 50 mcg, intravenous, Every 15 min PRN, breakthrough pain, Starting on Sun08/09/22 at 2258, Discontinue when [...] Indications: Pain 1521 (Given - Provider: Gabriella Camejo, RUBIO) oxyCODONE (ROXICODONE) tablet 5 mg (CANCELED) 5 mg, oral, Every 3 hours PRN, 2nd line for pain, Starting on Nola 08/10/22 at 1900, Indications: Pain 1952 (Given - Provider: Fadia Gallo RN)2310 (Given - Provider: Fadia Gallo RN) oxyCODONE (ROXICODONE) tablet 5 mg (CANCELED) 5 mg, oral, Every 3 hours PRN, 2nd line for pain, Starting on 08/11/22 at 1019, Indications: Pain 2034 (Given - [...] Count Last Ordered Date First Ordered Date bisacodyL (DULCOLAX) suppository 10 mg 1 polyethylene glycol (MIRALAX) packet 17 g 2 08/11/2022 08/10/2022 potassium chloride 40 mEq/52 0 mL in sodium chloride 0.9% (premix) 40 mEq 1 08/11/2022 HYDROmorphone (DILAUDID) injection 0.2 mg 1 08/10/2022 acetaminophen (TYLENOL) tablet 1,000 mg 1 0 08/09/2022 albuterol 2.5 mg/0.5 mL nebu lizer solution 2.5 mg 1 08/09/2022 bupivacaine-EPINEPHrine (MAR ROSENDA with EPI) 0.25 %-1:200,000 preservative free injection 1 08/09/2022 Carrier Fluids for Secondary Infusion - 0.9% Sodium Chloride 2 08/09/2022 ceFAZolin (ANCEF) 2,000 mg/2 0 mL in sterile water (premix) 2,000 mg 1 08/09/2022 dextrose (D10W) 10% bolus 250 mL 2 08/09/19 dextrose gel in packet 15 g 2 08/09/2022 diphenhydrAMINE (BENADRYL) i njection 12.5 mg 1 08/09/2022 glucagon injection 1 mg 2 08/09/2022 HYDROmorphone (DILAUDID) injection 0.5 mg 1 08/09/2022 insulin lispro (HumaLOG, ADM ELOG) 100 unit/mL injection 1-3 Units 1 08/09/2022 insulin regular bolus from bag 4-10 Units 1 08/09/2022 insulin regular bolus from bag 4-6 Units 1 08/09/2022 insulin regular in 0.9% sodi um chloride (MYXREDLIN) 100 unit/100 mL (1 unit/mL) infusion (premix) 1 08/09/2022 naloxone (NARCAN) 0.4 mg/mL injection 0.04-0.4 mg 1 08/09/2022 ondansetron (ZOFRAN) injection 4 mg 1 08/09 prochlorperazine (COMPAZINE) injection 5 mg 1 08/09/2022 sodium chloride 0.9% flush 0.5-20 mL 2 07/30 sodium chloride 0.9% irrigation 2 3 thrombin-recombinant 5,000 u nit topical solution 2 08/09/2022 vancomycin (VANCOCIN) solution 1 08/09/2022 vancomycin 1,000 mg/200 mL i n sodium chloride 0.9% (premix) 1,000 mg 1 08/09/2022 Lab Orders Without Results Count Last Ordered D ate First Ordered Date POCT GLUCOSE DEVICE 11 08/10/2022 08/09/19 Imaging Orders Without Results Count Last Order ed Date First Ordered Date EXTUBATION 08/10/2022 Nursing Count Last Ordered Date First [...] 08/09/2022 documented in this encounter Care Teams Candle Pourer Relationship Specialty Start Date End Date Rohan Rothman MD [id number] [place] [address] PCP - General 07/20/20 05/12/24 Reanna Polanco RN Registered Nurse 07/07/19 documented as of this encounter
--- OUTSIDE RECORDS SUMMARY | 2024-07-28 01:05 | XMS_ITS | Encounter Summary ---
Author Organization [facility] Healthcare Address [address] [place] [address] Care Team Providers Care Web Services Professional Name Role Phone Reanna Polanco RN [facility] Rohan Salvador MD Primary Care Provider Reason for Visit * Auth/Cert Specialty Diagnoses / Procedures Referred By Contac t Referred To Contact Diagnoses Spinal stenosis in cervical region Spinal stenosis in cervical region [M48.02] Procedures IL ARTHRD ANT INTERDY CERVCL BELW C2 EA ADDL NTRSPC NA Referral ID Status Reason Start Date Expiration Date Visits Re quested Visits Authorized [id number] 1 1 Encounter Details Date Type Department Care Team (Late st Contact Info) Description 08/09/2022 8:30 PM DIRECTOR OF DANCE Anesthesia Event [facility] Operating Room 1 [place] [id number] Grayson Granados MD PhD [address] [place] [address] Bruce Francisco MD [address] [place] [address] Anesthesia Record Procedure Summary Procedure Name Responsible Anesthesiologist Anesthesia Start Time Anesthesia Stop Time IRRIGATION AND DEBRIDEMENT of neck with Evacution of hematoma (Neck) Grayson Granados MD PhD 08/09/22 202908/09/222256 Events Date Time Event Comment 08/09/20222029 An Start 2041 In Room 2043 An Start Data 2054 Anesthesia Ready 2112 Proc Start 2112 Incision Start 2221 Proc Fin 2233 Intra-op neuro testing 2240 an stop data 2242 Out of Room 2256 Handoff to RN I completed my handoff to the receiving nurse during which we: 1. Patient identified 2. Responsible provider identified 3. Pertinent medical history reviewed 4. Procedure type and surgical course discussed 5. Intraoperative anesthetic management and any significant issues discussed 6. Expectations and concerns for postop period discussed 7. Questions solicited from receiving nurse 8. Patient disposition at the time of handoff: ICU 2256 An Stop Meds Name Total fentaNYL 100 mcg glycopyrrolate 0.7 mg neostigmine injection 1 mg/mL 2 mg ceFAZolin 2,000 mg phenylephrine in 0.9% sodium chloride (ALEXIA-SYNEPHRINE) 25,000 mcg/250 mL (100 mcg/mL) infusion (premix) solution 8.04 mg propofol (DIPRIVAN) 10 mg/mL infusion 14 1.03 mg insulin regular in 0.9% sodi um chloride (MYXREDLIN) 100 unit/100 mL (1 unit/mL) infusion (premix) 2.1 Units insulin regular bolus from bag 4-10 Unit s 2 Units norepinephrine 16 mcg Lactated Ringer's (LR) infusion 0 mL albumin human bottle 5 % 0 mL * Agents Name O2% N2O O2 Air Sevoflurane Inspired Sevoflurane * Blood No blood administrations on file. Lines, Drains, and Airways Type Details Placement Removal RETIRED Wound 06/10/19; 1241; Puncture; Bilateral; Buttocks; 08/12/22; 1613 06/10/19 1241 by Clarisa Bar RN 08/12/22 1613 by Sandrita Robles, RUBIO RETIRED Wound 06/30/19; 1120; No; Puncture; Right; Back; 08/12/22; 1613 06/30/19 1120 by Christiana Harding RN 08/12/22 1613 by Sandrita Robles, RN RETIRED Wound 07/07/19; 1600; No; Puncture; Lower; Back; 08/12/22; 1613 12/09/19 1600 by Noni Angelo RN 08/12/22 1613 by Sandrita Robles RN RETIRED Wound 09/22/19; 1332; No; Puncture; Back; 08/12/22; 1615 09/22/19 1332 by Daily Ballard RN 08/12/22 1615 by Sandrita Robles RN Peripheral IV Placement Date: 08/09/22; Placement Time: 1104; Catheter Size: 18 G; Orientation: Left, Posterior; Location: Hand; Site Prep: Chlorhexidine; Technique: Anatomical landmarks; Inserted by: Radha Myers RN; Insertion Attempts: 1; Patient Tolerance: Tolerated well; Removal Date: 08/12/22; Removal Time: 0700; Removal Reason: Occluded 08/09/22 1104 by Kirit Stephens RN 08/12/22 0700 by Sandrita Robles RN Urethral Catheter Placement Date: 08/09/22; Placement Time: 1300; Inserted by: RUBIO Forte; Type: Double-lumen, Temperature probe; Balloon Size: 10 mL; Urine Returned: Yes; Removal Date: 08/11/22; Removal Time: 1300; Removal Reason: Per order 08/09/22 1300 by Judith Marin RN 08/11/22 1300 by Jazmin Page RN Peripheral IV Placement Date: 08/09/22; Placement Time: 1342 (created via procedure documentation); Catheter Size: 18 G; Orientation: Left; Location: Foot; Site Prep: Alcohol; Insertion Attempts: 1; Removal Date: 08/12/22; Removal Time: 1548 08/09/22 1342 by Blue Ng, 08/12/22 1548 by Sandrita Robles RN RETIRED Surgical Site 08/09/22; 1427; Ne ck; 08/12/22; 1613 08/09/22 1427 by Judith Marin RN 08/12/22 1613 by Sandrita Robles RN Closed/Suction/Open Drain 08/09/22; 1723; 1; Left; Neck; Bulb; 10 Fr.; Other (Comment) (surgical team removed at bedside) 08/09/22 1723 by Judith Marin RN 08/09/222100 by Loni Lee RN ETT Placement Date: 08/09/22; Placement Time: 2012 (created via procedure documentation); Mask Ventilation: 3; Technique: Flexible bronchoscopy (through LMA); Type: ETT - single; Single Lumen Tube Size: 6 mm; Cuffed: Yes; Location: Oral; Insertion Attempts: 3 or more; Placement Verification: Bronchoscopy, Capnometry, Auscultation, Symmetrical chest wall movement; Airway Comment: Patient decompensated in PACU. Christopher and Nolan responded. Very difficult to ventilate, patient desaturating. Neck tense. Attempt 1 (Nolan) made with CMAC 3, no visualization of airway structure. Neck hematoma evacuated in PACU by NSGY resident. ACCS attending called for possible tracheostomy/cric. Able to mask ventilate with oral airway. Attempt 2 (Christopher) still difficult to discern airway structures because of edema. LMA size 4 placed and able to ventilate well through it. Fiberoptic scope passed through LMA size 4 with 6.0 ETT loaded. Trachea seen on scope. Cut top of scope and used as bougie. 6.0 ETT passed with confirmation by scope and ETCO2. Patient to OR for emergent procedure.; Removal Date: 08/10/22; Removal Time: 1228 08/09/222012 by Bruce Francisco MD 08/10/221227 by Bela Hdez, NAOMI Closed/Suction/Open Drain 08/09/22; 2148; 1; Left; Neck; Accordion; 15 Fr.; Therapy complete 08/09/222148 by Archana Cordova RN 08/12/22 1505 by Sandrita Robles, RUBIO Peripheral IV Placement Date: 08/09/22; Placement Time: 2199; Catheter Size: 18 G; Orientation: Right; Location: Hand; Removal Date: 08/12/22; Removal Time: 15408/09/222199 by Reanna Howard RN 08/12/22 154 by Sandrita Robles, RN documented in this encounter Social History Tobacco [...] on file Legal Sex Female 2:03 AM DIRECTOR OF DANCE Gender Identity Female 08/26/2020 6:26 AM DIRECTOR OF DANCE Sexual Orientation Straight 08/26/2020 6: 26 AM DIRECTOR OF DANCE documented as of this encounter OR Notes * Anesthesia Postprocedure Evaluation - Gildardo Tovar MD - 08/09/2022 10:57 PM CST Patient: Annette Santiago Procedure Summary Date: 08/09/22 Room / Location: [facility] OR POD 5 ROOM 236 / [facility] OR POD 5 Anesthesia Start: 2029 Anesthesia Stop: 2256 Procedure: IRRIGATION AND DEBRIDEMENT of neck with Evacution of hematoma (Neck) Diagnosis: Cervical spinal stenosis (Cervical spinal stenosis [M48.02]) Surgeons: Olivier Marion MD Responsible Provider: Grayson Granados MD PhD Anesthesia Type: general ASA Status: 4 - Emergent Anesthesia Type: general Last vitals BP 110/55 (BP Location: Right arm, Patient Position: Lying) Pulse 63 Temp 36.3 ??C (97.3 ??F) (Bladder) Resp 24 SpO2 100% Anesthesia Post Evaluation Patient location during evaluation: ICU Patient participation: complete - patient cannot participate Level of consciousness: unconscious Pain score: unable to evaluate Pain management: adequate Airway patency: adequate Evidence of recall: unable to evaluate Cardiovascular status: acceptable Respiratory status: acceptable Hydration status: acceptable Pt is: normothermic Nausea/Vomiting status: unable to evaluate Comments: Patient transported to ICU without acute event. No notable events documented. Cosigned by Piedad Poe MD at 08/10/2022 12:00 AM DIRECTOR OF DANCE CTOR OF DANCE CTOR OF DANCE * Anesthesia Preprocedure Evaluation - Grayson Granados MD PhD - 08/09/2022 8:37 PM CST Images from the original note were not included. Anesthesia Evaluation Annette Santiago is a 62 y.o. female Procedure(s): IRRIGATION AND DEBRIDEMENT - BACK HARDWARE REMOVAL - CERVICAL SPINE FUSION CERVICAL ANTERIOR DISCECTOMY WITH INSTRUMENTATION Pre-Op Diagnosis Codes: * Cervical spinal stenosis [M48.02] Patient Active Problem List Diagnosis ??? Osteoarthritis of 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 ??? Shoulder pain ??? Pain of lumbar facet joint ??? Low back pain ??? Arthralgia of hip ??? High risk medication use ??? Generalized osteoarthritis ??? Fibromyalgia ??? Encounter for preventive health examination ??? Depression ??? Osteoarthritis of cervical spine ??? Elevated liver enzymes ??? Sacroiliitis (HCC) ??? Cervicalgia ??? Chronic use of opiate drug for therapeutic purpose ??? Muscle spasm ??? Other secondary scoliosis, lumbar region ??? Sacroiliac joint dysfunction ??? Spinal stenosis in cervical region ??? Cervical spinal stenosis ??? Osteoporosis ??? GERD (gastroesophageal reflux disease) Past Medical History: Diagnosis Date ??? Anxiety ??? Arthritis ??? Back pain ??? Chronic pain ??? Chronic pain ??? Depression ??? Fibromyalgia ??? Fibromyalgia, primary ??? GERD (gastroesophageal reflux disease) ??? Low back pain ??? Low back pain ??? Migraines ??? Neck pain ??? Osteoporosis ??? Personal history of other diseases of the musculoskeletal system and connective tissue History of osteoporosis - (Added by TW Conv) ??? Tachycardia ??? Urinary tract infection Past Surgical History: Procedure Laterality Date ??? CATARACT EXTRACTION right eye only ??? HYSTEROSCOPY W/ ENDOMETRIAL ABLATION ??? IL UNLISTED LAPAROSCOPY PX INTESTINE XCP RECTUM Intestinal Laparoscopy - (Added by TW Conv) ??? SPINE SURGERY upcoming w/Dr. Marion OB History No obstetric history on file. Allergies Allergen Reactions ??? Decongestant Capsule Other (See comments) bladder spasms with decongestants ??? Hay Fever And Allergy Relief Other (See comments) STUFFY HEAD, ACHINESS Med List Status: Nurse Complete Set By: Kirit Stephens, RN at 08/09/2022 10:52 AM Taking? Last Dose Start Date End Date Provider acetaminophen ER (TYLENOL) 650 mg 8 hr tablet 08/08/2022 07/11/20 -- Joaquín Beckman MD alendronate (FOSAMAX) 70 mg tablet Past Week 04/02/20 -- Joaquín Beckman MD ALPHA LIPOIC ACID ORAL Past Week -- -- Joaquín Beckman MD ARIPiprazole (ABILIFY) 15 mg tablet 08/08/2022 -- -- Joaquín Beckman MD Notes: Total 12.5 at HS ARIPiprazole (ABILIFY) 5 mg tablet 08/08/2022 04/20/22 -- Joaquín Beckman MD Notes: Total 12.5 mg at HS ascorbic acid (VITAMIN C) 1,000 mg tablet Past Week -- -- Joaquín Beckman MD baclofen (LIORESAL) 10 mg tablet 08/09/2022 04/07/22 -- Heriberto Webster MD PhD Take 2 tablets (20 mg total) by mouth 4 (four) times a day Takes 1-2 tabs QID Patient taking differently: Take 20 mg by mouth 4 (four) times a day Takes 1-2 tabs QID CALCIUM CARBONATE-VITAMIN D3 ORAL Past Week -- -- Joaquín Beckman MD cannabidiol, CBD, (EPIDIOLEX) 100 mg/mL solution Past Month -- -- Joaquín Beckman MD cetirizine 10 mg capsule 08/08/2022 -- -- Joaquín Beckman MD DULoxetine DR (CYMBALTA) 60 mg capsule 08/09/2022 -- -- Joaquín Beckman MD estradiol-norethindrone (ACTIVELLA) 1-0.5 mg per tablet 08/08/2022 11/14/17 -- Joaquín Beckman MD HYDROcodone-acetaminophen (NORCO) 7.5-325 mg per tablet 08/09/2022 08/03/22 09/02/22 Nancy Fernandez MD Take 1 tablet by mouth 3 (three) times a day As need for pain magnesium oxide (MAG-OX) 500 mg (301.6 mg elemental) tablet Past Week -- -- Joaquín Beckman MD methocarbamoL (ROBAXIN) 500 mg tablet 08/09/2022 07/19/22 -- Andrew Hamlin, DO Take 2 tablets (1,000 mg total) by mouth 4 (four) times a day Patient taking differently: Take 1,000 mg by mouth 4 (four) times a day methocarbamoL (ROBAXIN) 500 mg tablet () -- 07/25/22 08/08/22 Heriberto Webster MD PhD Take 2 tablets (1,000 mg total) by mouth 4 (four) times a day for 14 days metoprolol XL (TOPROL-XL) 25 mg extended release tablet 08/08/2022 -- -- Joaquín Beckman MD montelukast (SINGULAIR) 10 mg tablet 08/08/2022 04/13/17 -- Joaquín Beckman MD mupirocin (BACTROBAN) 2 % ointment 08/08/2022 07/26/22 -- Olivier Marion MD Apply a small amount to the inside of each nostril using a clean Q-tip for each nostril twice a dayfor 5 days prior to surgery. omega 9-ydz-lee-fish oil 1,000 mg (120 mg-180 mg) capsule Past Week -- -- Joaquín Beckman MD ruxolitinib (Opzelura) 1.5 % cream 08/08/2022 09/06/21 -- Joaquín Beckman MD turmeric root extract 500 mg capsule Past Month -- -- Joaquín Beckman MD zolpidem (AMBIEN) 10 mg tablet 08/08/2022 -- -- Joaquín Beckman MD Flag for Review Taking? Last Dose Start Date End Date Provider famotidine (PEPCID) 10 mg tablet -- 07/18/22 07/18/23 Leigh Whiting MD Take 1 tablet (10 mg total) by mouth 2 (two) times a day Patient taking differently: Take 10 mg by mouth nightly meloxicam (MOBIC) 7.5 mg tablet -- 07/18/22 07/18/23 Leigh Whiting MD Take 1 tablet (7.5 mg total) by mouth daily Patient taking differently: Take 7.5 mg by mouth nightly Current Facility-Administered Medications: ??? acetaminophen (TYLENOL) tablet 1,000 mg, 1,000 mg, oral, Once ??? dextrose 5% and sodium chloride 0.9% infusion (premix), 75 mL/hr, intravenous, Continuous, LastRate: 75 mL/hr at 08/09/22 181, 75 mL/hr at 08/09/221813 ??? diphenhydrAMINE (BENADRYL) injection 12.5 mg, 12.5 mg, intravenous, Q15 Min PRN ??? HYDROmorphone (DILAUDID) injection 0.5 mg, 0.5 mg, intravenous, Q10 Min PRN, 0.5 mg at ??? HYDROmorphone (DILAUDID) injection 0.5 mg, 0.5 mg, intravenous, Q10 Min PRN ??? Lactated Ringer's (LR) infusion, 30 mL/hr, intravenous, Continuous, Last Rate: 30 mL/hr at 08/09/22 1234, Restarted at 08/09/22 1400 ??? naloxone (NARCAN) 0.4 mg/mL injection 0.04-0.4 mg, 0.04-0.4 mg, intravenous, Once PRN ??? ondansetron (ZOFRAN) injection 4 mg, 4 mg, intravenous, Once PRN ??? phenylephrine in 0.9% sodium chloride (ALEXIA-SYNEPHRINE) 25,000 mcg/250 mL (100 mcg/mL) infusion (premix) solution, 0-4 mcg/kg/min, intravenous, Titrated, Last Rate: 42.2 mL/hr at 08/09/222012, 1 mcg/kg/min at 08/09/222012 ??? prochlorperazine (COMPAZINE) injection 5 mg, 5 mg, intravenous, Once PRN ??? propofol (DIPRIVAN) 10 mg/mL infusion, 0-50 mcg/kg/min, intravenous, Titrated, Last Rate: 12.65mL/hr at 08/09/221999, 30 mcg/kg/min at 08/09/221999 Social History Tobacco Use Smoking Status Former ??? Packs/day: 1.00 ??? Years: 5.00 ??? Pack years: 5.00 ??? Types: Cigarettes ??? Start date: 11/27/1978 ??? Quit date: 09/28/1983 ??? Years since quittin.8 Smokeless Tobacco Never Alcohol Use: Not At Risk ??? Frequency of Alcohol Consumption: Never ??? Average Number of Drinks: Patient does not drink ??? Frequency of Binge Drinking: Not on file Substance and Sexual Activity Drug Use Not Currently ??? Types: Marijuana Comment: CBD Oil Family History Problem Relation Age of Onset ??? Hypertension Mother ??? Arthritis Mother ??? Heart failure Mother Family history of congestive heart failure - (Added by TW Conv) ??? COPD Mother ??? Depression Mother ??? Kidney disease Father Family history of kidney disease - (Added by TW Conv) ??? Stroke Father Family history of cerebrovascular accident - (Added by TW Conv) ??? Heart disease Maternal Grandfather ??? Celiac disease Son Family history of celiac disease - (Added by TW Conv) ??? Allergy (severe) Son ??? Arthritis Mother's Sister ??? Arthritis Mother's Brother ??? Depression Mother's Brother ??? Anesthesia problems Neg Hx Vitals: 08/09/22199908/09/22200408/09/222016 BP: (!) 83/51 (!) 76/47 138/90 Pulse: 92 90 71 Resp: Temp: SpO2: 99% 99% 100% PT: No results found for requested labs within last 720 hours. INR: No results found for requested labs within last 720 hours. APTT: No results found for requested labs within last 720 hours. Hgb A1C: 07/20/2022: 5.1 % CBC RBC: 07/20/2022: 4.14 M/cumm RDW: No results found for requested labs within last 720 hours. MCHC: 07/20/2022: 32.1 g/dL (L) MCH: 07/20/2022: 30.9 pg MCV: 07/20/2022: 96.4 fL Hct: 07/20/2022: 39.9 % Hgb: 07/20/2022: 12.8 g/dL WBC: 07/20/2022: 4.5 K/cumm MPV: 07/20/2022: 11.9 fL Platelets: 07/20/2022: 235 K/cumm RDW CV: 07/20/2022: 12.1 % RDW Sd: 07/20/2022: 42.9 fL BMP Glucose: 07/20/2022: 93 mg/dL Calcium: 07/20/2022: 9.3 mg/dL Sodium: 07/20/2022: 142 mmol/L Potassium: 07/20/2022: 3.8 mmol/L CO2: 07/20/2022: 28 mmol/L Chloride: 07/20/2022: 104 mmol/L BUN: 07/20/2022: 15 mg/dL Creatinine: 07/20/2022: 0.73 mg/dL STOP-Bang Total Score: 1 DOS Physical Exam Medical history, medications, and allergies reviewed. Attestation: True emergency - No H&P 08/09/2022. Airway Exam: Mallampati: intubated Jaw ROM: full Cardiovascular Exam: Rate: regular Rhythm: regular Negative for Murmur Negative for peripheral edema Pulmonary Exam: LCTA Skin Exam: Skin is warm. Capillary refill is < 3 seconds. Turgor is normal. Abdominal Exam: Abdomen is soft. Bowel sounds are present. Current state: Patient's current state is unresponsive and sedated. Lines/Drains/Tubes/Devices Respiratory devices: mechanical ventilation and endotracheal tube Additional comments: Patient was emergently intubated with oral FOB via LMA by PACU applications architect anesthesiologists and ENT. She was hypotensive after intubation. Her BP ran 70s/40s, HR 90s, ETCO2 50s, O2Sats 98-99% with 60% O2 on ventilator. She was immediately resuscitated with phenylephrine bolus & drips, but she's not responding. I rushed to pharmacy to get epi, norepinephrine, calcium, rocuroni um, etc and gave her Norepinephrine, 16mcg x2, CaCl2 0.5mg, etc. After treatments, her BP is back to normal ranges (140s/80s). Continue her propopfol 30mcg/kg/min down from 50mcg/kg/min due to her hypotension. Anesthesia Plan ASA 4- emergent My patient is approved for the Anesthesia Controlled Medication protocol when under care of a COAGULATING BATH MIXER Planned anesthesia: General Team communication plan: oral ET tube Induction: Induction: intravenous. Postoperative Plan: Postoperative administration opioids intended. No postoperative mechanical ventilation intended. Patient's planned disposition post procedure is Floor. Informed Consent: Discussed plan with resident. Anesthesia plan and risks discussed with not discussed. Plan and Consent Comments: This is An Emergency. Proceed to OR BREONNA. Plans: 1. Multimodal pain control: 2. Transport the patient in her neutral position of neck/head 3. Keep the patient normotensive, normovolemic, normocarbic and normothermic. 4. Maintain the patient's baseline MAP during surgery with crystalloid, colloid, pressors (ephedrine, CaCl2 and norepinephrine), Or blood as needed, etc. ----Large-bore PIVs. 5. Closely monitoring the patient's ETCO2, etc. 6. Postop ICU admission/on ventilator. Consent and Attending signature: I and/or my designee have discussed the anesthesia plan, benefits, possible alternatives, parental presence at time of induction (if indicated), and clinically relevant risks that may include dental injury, unintentional awareness, and/or other complications. The patient and/or parent/legal guardian understand, and agree to proceed. All questions answered. CTOR OF DANCE * Anesthesia Procedure Notes - Bruce Francisco MD - 08/09/2022 8:07 PM DIRECTOR OF DANCE Associated Order(s): Airway Airway Patient location: PACU Urgency: emergent Indications for airway management: anesthesia Difficult airway: yes Maneuvers that helped ventilation: 2 person bag and mask and oral airway Factors contributing to ventilation difficulty: facial or airway trauma and limited neck motion Maneuvers that helped intubation: intubating LMA Factors contributing to intubation difficulty: tongue size, limited mouth opening, limited neck motion, radiation or post surgical changes, mass/tumor/edema and tracheal deviation from midline Staff: Supervising provider: Kalina White MD Placed by: Anesthesiologist: Bruce Francisco MD Emergent airway documentation: Patient identity confirmed by: arm band Risks and benefits discussed: no Consent obtained: no Consent given by: patient Consent cannot be obtained due to urgency: yes Airway prep: Preoxygenated: yes Patient position: sniffing Mask difficulty assessment: 3 - difficult mask (inadequate, unstable or two providers) Spontaneous ventilation during airway: absent Sedation level during airway: GA Final airway details: Final airway type: endotracheal airway Tube type: ETT ETT size: 6.0 mm Technique used for successful ETT placement: flexible bronchoscopy (through LMA) Devices/Methods used in placement: intubating LMA Insertion site: oral ETT to lips: 25 cm Placement verified by: bronchoscopy Secured with: tube delgado. Number of attempts: 3 or more Ventilation between attempts: BVM and supraglottic airway Unsuccessful airway(s) attempted: endotracheal tube Unsuccessful approach(es) for ETT: video laryngoscopyno Additional comments: Patient decompensated in PACU. Christopher and Nolan responded. Very difficult to ventilate, patient desaturating. Neck tense. Attempt 1 (Nolan) made with CMAC 3, no visualization of airway structure. Neck hematoma evacuated in PACU by NSGY resident. ACCS attending called for possible tracheostomy/cric. Able to mask ventilate with oral airway. Attempt 2 (Christopher) still difficult to discern airway structures because of edema. LMA size 4 placed and able to ventilate well through it. Fiberoptic scope passed through LMA size 4 with 6.0 ETT loaded. Trachea seen on scope. Cut top of scope andused as bougie. 6.0 ETT passed with confirmation by scope and ETCO2. Patient to OR for emergent proc edure. CTOR OF DANCE documented in this encounter Plan of Treatment Not on file documented as of this encounter Goals Goal Patient Goal Type Associated Problems Recent Progress Patient-Stated? Author CCM Chronic Pain Care Plan Chronic Care Management Improving( 10:05 AM DIRECTOR OF DANCE) No Bessy Mancuso RN Note: Problem: Chronic Pain Goals: 1. Minimize further functional decline 2. Maximize quality of life 3. Control pain Strategies: - Activity/exercise program recommendation - Conservative stepwise pain medicine strategy with multi-disciplinary approach - Recommend healthy lifestyle strategies and compensatory methods as needed documented as of this encounter Procedures Procedure Name Priority Date/Time Associated Diagnosis Comments IL AN PROCEDURE PLACEHOLDER Routine 08/09/2022 8:07 PM DIRECTOR OF DANCE IL AN EMERGENT ENDOTRACHEAL AIRWAY Routine 08/09/2022 8:07 PM DIRECTOR OF DANCE documented in this encounter Results * IL AN EMERGENT ENDOTRACHEAL AIRWAY, IL AN PROCEDURE PLACEHOLDER (08/09/2022 8:07 PM DIRECTOR OF DANCE) Narrative Bruce Francisco MD - 08/09/2022 8:07 PM DIRECTOR OF DANCE Bruce Francisco MD ? 08/09/2022 ??8:13 PM Airway Patient location: PACU Urgency: emergent Indications for airway management: anesthesia Difficult airway: yes Maneuvers that helped ventilation: 2 person bag and mask and oral airway Factors contributing to ventilation difficulty: facial or airway trauma and limited neck motion Maneuvers that helped intubation: intubating LMA Factors contributing to intubation difficulty: tongue size, limited mouth opening, limited neck motion, radiation or post surgical changes, mass/tumor/edema and tracheal deviation from midline Staff: Supervising provider: Kalina White MD Placed by: Anesthesiologist: Bruce Francisco MD Emergent airway documentation: Patient identity confirmed by: arm band Risks and benefits discussed: no Consent obtained: no Consent given by: patient Consent cannot be obtained due to urgency: yes Airway prep: Preoxygenated: yes Patient position: sniffing Mask difficulty assessment: 3 - difficult mask (inadequate, unstable or two providers) Spontaneous ventilation during airway: absent Sedation level during airway: GA Final airway details: Final airway type: endotracheal airway Tube type: ETT ETT size: 6.0 mm Technique used for successful ETT placement: flexible bronchoscopy (through LMA) Devices/Methods used in placement: intubating LMA Insertion site: oral ETT to lips: 25 cm Placement verified by: bronchoscopy Secured with: tube delgado. Number of attempts: 3 or more Ventilation between attempts: BVM and supraglottic airway Unsuccessful airway(s) attempted: endotracheal tube Unsuccessful approach(es) for ETT: video laryngoscopyno Additional comments: Patient decompensated in PACU. [place] responded. Very difficult to ventilate, patient desaturating. Neck tense. Attempt 1 (Nolan) made with CMAC 3, no visualization of airway structure. Neck hematoma evacuated in PACU by NSGY resident. ACCS attending called for possible tracheostomy/cric. Able to mask ventilate with oral airway. Attempt 2 (Christopher) still difficult to discern airway structures because of edema. LMA size 4 placed and able to ventilate well through it. Fiberoptic scope passed through LMA size 4 with 6.0 ETT loaded. Trachea seen on scope. Cut top of scope and used as bougie. 6.0 ETT passed with confirmation by scope and ETCO2. Patient to OR for emergent procedure. us Bruce Francisco MD ANESTHESIA ORDERABLES Leandra l Result documented in this encounter Visit Diagnoses Not on filedocumented in this encounter Administered Medications Inactive Administered Medications - up to 3 most recent administrations Medication Order MAR Action Action Date Dose Rate Site albumin 5 % bottle intravenous, Continuous PRN, Starting on Sun08/09/22 at 2149, Anesthesia Intra-op New Bag 08/09/2022 9:49 PM DIRECTOR OF DANCE ceFAZolin (ANCEF) injection intravenous, Administer over 3 Minutes, As needed, Starting on Sun08/09/22 at 2101, Anesthesia Intra-op Given 08/09/2022 9:01 PM DIRECTOR OF DANCE 2,000 mg fentaNYL (SUBLIMAZE) preservative free injection intravenous, As needed, Starting on Sun08/09/22 at 2234, Anesthesia Intra-op Given 08/09/2022 10:34 PM DIRECTOR OF DANCE 100 mcg glycopyrrolate (ROBINUL) injection intravenous, Administer over 1 Minutes, As needed, Starting on Sun08/09/22 at 2115, Anesthesia Intra-op Given 08/09/2022 10:09 PM DIRECTOR OF DANCE 0.4 mg Given 08/09/2022 9:22 PM DIRECTOR OF DANCE 0.1 mg Given 08/09/2022 9:18 PM DIRECTOR OF DANCE 0.1 mg insulin regular bolus from bag 4-10 Units 4-10 Units, intravenous, As needed, high blood sugar, Starting on Sun08/09/22 at 2153, INITIATE INFUSION: Blood Glucose (mg/dL) 181 - 220: Give 4 units IV bolus and start infusion 1 unit/hour 221 - 280: Give 4 units IV bolus and start infusion 2 units/hour 281 - 330: Give 6 units IV bolus and start infusion 2 units/hour 331 - 380: Give 8 units IV bolus and start infusion 3 units/hour 381 - 430: Give 10 units IV bolus and start infusion 3 units/hour Greater than 430: Call MD for orders Use the instructions above if the insulin infusion needs to be restarted., Indications: HyperglycemiaIndications:Hyp erglycemia Given 08/09/2022 9:54 PM DIRECTOR OF DANCE 2 Units insulin regular in 0.9% sodium chloride (MYXREDLIN) 100 unit/100 mL (1 unit/mL) infusion (premix) 0-30 Units/hr (0-30 mL/hr), 1 units/mL, intravenous, Titrated, Starting on Sun08/09/22 at 2230, Until Sun08/09/22 at 2302, Indications: Hyperglycemia, NON-WEIGHT BASED DOSING Blood Glucose (BG) - BG DECREASED OR SAME as last value: Less than 70 mg/dL - Stop insulin infusion *(see below for drip reinitiation instructions). Follow hypoglycemia orders. Notify covering MD. 70 - 100 mg/dL - Stop infusion *(see below for drip reinitiation instructions). Resume BG Q 1 hour. 101 - 160 mg/dL - If BG decreased by greater than or equal to 40 mg/dL, decrease infusion by 50% or stop infusion if less than or equal to 2 units/hour *(see below for drip reinitiation instructions). Resume BG Q 1 hour. If BG decreased less than 40 mg/dL, continue same rate. 161 - 200 mg/dL- If BG decreased by greater than or equal to 60 mg/dL, decrease infusion by 50% or stop infusion if less than or equal to 2 units/hour *(see below for drip reinitiation instructions). Resume BG Q 1 hour. If BG decreased less than 60 mg/dL, continue same rate. 201 - 250 mg/dl - If BG decreased by greater than or equal to 60 mg/dL continue same rate. If decreased by less than 60 mg/dL, increase by 1 unit/hr. 251 - 300 mg/dL - Increase by 2 units/hour. 301 - 349 mg/dL - Increase by 2 units/hour. 350 - 400 mg/dL - Increase by 3 units/hr. Greater than 400 mg/dL - Notify covering MD Blood Glucose (BG) - Blood glucose INCREASED since last value: 70 - 100 mg/dL - Continue to hold infusion 101 - 160 mg/dL - Maintain at present rate or if drip has been off, follow reinitiation instructions* 161 - 200 mg/dL- Increase by or restart at 1 unit/hour or if drip has been off, follow reinitiation instructions* 201 - 250 mg/dL- Give 4 units insulin IVP then increase infusion by 2 units/hour or if drip has been off, follow reinitiation instructions* 251 - 300 mg/dL - Give 4 units insulin IVP then increase infusion by 2 units/hour or if drip has been off, follow reinitiation instructions* 301 - 349 mg/dL - Give 6 units insulin IVP then increase infusion by 3 units/hour or if drip has been off, follow reinitiation instructions* 350 - 400 mg/dL - Give 6 units insulin IVP then increase infusion by 3 units/hour or if drip has been off, follow reinitiation instructions* Greater than 400 mg/dL - Notify covering MD. *Drip Reinitiation Instructions: Check BG Q 1 hour; when BG greater than 100 mg/dL, restart infusion at 50% of the most recent rate. If the most recent rate less than 2 units/hr, contact covering provider for reinitiation or transition plan. Patients with renal failure (CrCl less than 40 mL/min, urine output less than 30 mL/hr, or receiving dialysis) limit infusion rate increases to be NO SOONER THAN EVERY 3 HOURS. When new IV tubing is used, completely prime the tubing. Once primed, waste an additional 20 ml of insulin infusion using the IV pump prior to connecting to patient., RoutineIndications:Hyperglyc emia New Bag 08/09/2022 9:54 PM DIRECTOR OF DANCE 2 Units/hr 2 mL/hr Lactated Ringer's (LR) infusion 30 mL/hr, intravenous, Continuous, Starting on Sun08/09/22 at 1115, Pre-Op Rate/Dose Verify 08/09/2022 8:30 PM DIRECTOR OF DANCE 30 mL/hr Restarted 08/09/2022 2:00 PM DIRECTOR OF DANCE Rate/Dose Verify 08/09/2022 12:34 PM DIRECTOR OF DANCE 30 mL/ hr neostigmine (PROSTIGMIN) injection intravenous, Administer over 3 Minutes, As needed, Starting on Sun08/09/22 at 2209, Anesthesia Intra-op Given 08/09/2022 10:09 PM DIRECTOR OF DANCE 2 mg norepinephrine (LEVOPHED) injection intravenous, As needed, Starting on Sun08/09/22 at 2240, Anesthesia Intra-op Given 08/09/2022 10:42 PM DIRECTOR OF DANCE 8 mcg Given 08/09/2022 10:40 PM DIRECTOR OF DANCE 8 mcg phenylephrine in 0.9% sodium chloride (ALEXIA-SYNEPHRINE) 25,000 mcg/250 mL (100 mcg/mL) infusion (premix) solution 0-4 mcg/kg/min ? 70.3 kg (0-168.72 mL/hr), 100 mcg/mL, intravenous, Titrated, Starting on Sun08/09/22 at 2044, Until Sun08/09/22 at 230, Phase I, Initial rate: 0.5 mcg/kg/min, Titrate: Up/Down, Titrate by: 0.1 mcg/kg/min, Every: 2 minutes, Goal: MAP, MAP Goal: 60-70 mmHg, Protect from light, STAT Rate/Dose Verify 08/09/2022 10:50 PM DIRECTOR OF DANCE 0.4 mcg/kg/min 16.87 mL/hr Rate/Dose Change 08/09/2022 10:42 PM DIRECTOR OF DANCE 0.4 mcg/kg/min 16 .872 mL/hr Rate/Dose Change 08/09/2022 10:41 PM DIRECTOR OF DANCE 0.3 mcg/kg/min 12 .654 mL/hr propofol (DIPRIVAN) 10 mg/mL infusion 0-50 mcg/kg/min ? 70.3 kg (0-21.09 mL/hr), 10 mg/mL, intravenous, Titrated, Starting on Sun08/09/22 at 2044, Until Sun08/09/22 at 230, Phase I, Titration instructions: Titrate, Initial dose: 30 mcg/kg/min, Titrate: Up/Down, Titrate by: 10 mcg/kg/min, Every: 10 minutes, Goal: RASS, RASS Goal: -3, Do not administer through the same I.V. catheter with blood or plasma. Tubing and any unused portions of propofol vials should be discarded after 12 hours. Room temperature only, STAT Rate/Dose Change 08/09/2022 10:50 PM DIRECTOR OF DANCE 30 mcg/kg/min 12.65 mL/hr Rate/Dose Change 08/09/2022 10:40 PM DIRECTOR OF DANCE 25 mcg/kg/min 10. 545 mL/hr Given 08/09/2022 10:35 PM DIRECTOR OF DANCE 50 mg documented in this encounter Orders Medications Ordered That Thai ht Not Have Been Administered Count Last Ordered Date First Ordered Date glycopyrrolate (ROBINUL) injection 1 2022 documented in this encounter Care Teams Web Services Professional Relationship Specialty Start Date End Date Rohan Rothman MD [id number] [facility] [address] [place] [address] PCP - General 07/20/20 05/12/24 Reanna Polanco RN Registered Nurse 07/07/19 documented as of this encounter
--- OUTSIDE RECORDS SUMMARY | 2024-07-28 01:06 | XMS_ITS | Encounter Summary ---
Author Organization [facility] Healthcare Address [address] [place] [address] Care Team Providers Care Automatic Winder Operator Name Role Phone Reanna Polanco RN [facility] Rohan Salvador MD Primary Care Provider Reason for Visit * Auth/Cert Specialty Diagnoses / Procedures Referred By Contac t Referred To Contact Diagnoses Spinal stenosis in cervical region Spinal stenosis in cervical region [M48.02] Procedures IA ARTHRD ANT INTERDY CERVCL BELW C2 EA ADDL NTRSPC NA Referral ID Status Reason Start Date Expiration Date Visits Re quested Visits Authorized [id number] 1 1 Encounter Details Date Type Department Care Team (Late st Contact Info) Description 08/09/2022 12:34 PM CLAIMS ADJUSTOR Anesthesia Event [facility] Operating Room [address] [place] [address] Kalina White MD [address] [place] [address] Florinda Sargent NP [address] [facility] [address] [place] [address] Anesthesia Record Procedure Summary Procedure Name Responsible Anesthesiologist Anesthesia Start Time Anesthesia Stop Time FUSION CERVICAL ANTERIOR DISCECTOMY WITH INSTRUMENTATION- C3-C6 instrumented anterior cervical discectomy and fusion with structural allograft (Spine Cervical) Kalina White MD 08/09/22 1234 08/09/22 1800 Events Date Time Event Comment 08/09/2022 1040 In Preop 1130 1234 An Start 1240 In Room 1241 An Start Data 1251 An Induction The patient was reevaluated immediately before moderate or deep sedation use and before anesthesia induction. 1254 An Intubation 1303 Anesthesia Ready 1308 Line Placement 1308 IV Placed 1410 Proc Start 1410 Incision Start 1743 Proc Fin 1745 An Extubation 1750 an stop data 1751 Out of Room 1800 Handoff to RN I completed my handoff [...] Patient disposition at the time of handoff: No value filed. 1800 An Stop Meds Name Total lidocaine (cardiac) syringe 2 % 60 mg propofol 320 mg propofol 2,553.65 mg fentaNYL 200 mcg succinylcholine 60 mg phenylephrine 100 mcg/mL 600 mcg ondansetron PF (ZOFRAN) 2 mg/mL injectio n 4 mg dexmedeTOMIDine 80mcg/20mL (4 mcg/mL) 40 mcg methadone 10 mg/mL 20 mg vancomycin 1,000 mg/200 mL in sodium chl oride 0.9% (premix) 1,000 mg 1,000 mg ceFAZolin (ANCEF) 2,000 mg/20 mL in ster ile water (premix) 2,000 mg 4,000 mg phenylephrine infusion (100 mcg/mL) 0.45 mg dexAMETHasone 4 mg/mL 10 mg magnesium sulfate 2 g/50 mL 2 g labetalol 5 mg/mL 10 mg ketorolac 15 mg Lactated Ringer's (LR) infusion 2,500 mL * Agents Name O2% N2O O2 N2O Air * Blood No blood administrations on file. Lines, Drains, and Airways Type Details Placement Removal RETIRED Wound 06/10/19; 1241; Puncture; Bilateral; Buttocks; 08/12/22; 1613 06/10/19 1241 by Clarisa Bar RN 08/12/22 1613 by Sandrita Robles RN RETIRED Wound 06/30/19; 1120; No; Puncture; Right; Back; 08/12/22; 1613 06/30/19 1120 by Christiana Harding RN 08/12/22 1613 by Sandrita Robles RN RETIRED Wound 07/07/19; 1600; No; Puncture; Lower; Back; 08/12/22; 1613 07/07/19 1600 by Noni Angelo RN 08/12/22 1613 [...] RN 08/11/22 1300 by Jazmin Page RN ETT Placement Date: 08/09/22; Placement Time: 1341 (created via procedure documentation); Mask Ventilation: 0; Technique: Flexible bronchoscopy; Type: ETT - single; Single Lumen Tube Size: 7 mm; Cuffed: Yes; Location: Oral; Insertion Attempts: 1; Placement Verification: Auscultation, Capnometry; Removal Date: 08/09/22; Removal Time: 1745 08/09/22 1341 by Blue Ng DO 08/09/22 1745 by Blue Ng DO Peripheral IV Placement Date: 08/09/22; Placement Time: 134 (created via procedure documentation); Catheter Size: 18 G; Orientation: Left; Location: Foot; Site Prep: Alcohol; Insertion Attempts: 1; Removal Date: 08/12/22; Removal Time: 1548 08/09/22 1342 by Blue Ng, 08/12/22 1548 by Sandrita Robles RN Arterial Line Placement Date: 08/09/22; Placemnt Time: 134 (created via procedure documentation); Size: 3 Fr; Orientation: Right; Location: Radial; Securement: Taped, Transparent dressing; Removal Date: 08/09/22; Removal Time: 1848; Removal Reason: Per order 08/09/22 1343 by Blue Ng, DO 08/09/22 184 by Loni Lee RN RETIRED Surgical Site 08/09/22; 1427; Ne ck; 08/12/22; 1613 08/09/22 1427 by Judith Marin RN 08/12/22 1613 by Sandrita Robles RN Closed/Suction/Open Drain 08/09/22; 1723; 1; Left; Neck; Bulb; 10 Fr.; Other (Comment) (surgical team removed at bedside) 08/09/22 1723 by Judith Marin RN 08/09/22 2101 by Loni Lee RN documented in this encounter Social History [...] file Legal Sex Female 2:03 AM CLAIMS ADJUSTOR Gender Identity Female 08/26/2020 6:26 AM CLAIMS ADJUSTOR Sexual Orientation Straight 08/26/2020 6: 26 AM CLAIMS ADJUSTOR documented as of this encounter OR Notes * Anesthesia Postprocedure Evaluation - Patrizia Khanna MD - 08/09/2022 6:44 PM CST Patient: Annette Santiago Procedure Summary Date: 08/09/22 Room / Location: [facility] OR POD 5 ROOM 235 / [facility] OR POD 5 Anesthesia Start: 1234 Anesthesia Stop: 1800 Procedures: FUSION CERVICAL ANTERIOR DISCECTOMY WITH INSTRUMENTATION- C3-C6 instrumented anterior cervical discectomy and fusion with structural allograft (Spine Cervical) SPINAL CORD MONITORING Diagnosis: Spinal stenosis in cervical region (Spinal stenosis in cervical region [M48.02]) Surgeons: Olivier Marion MD Responsible Provider: Kalina White MD Anesthesia Type: general/TIVA, general ASA Status: 3 Anesthesia Type: general/TIVA, general Last vitals BP 147/70 Pulse 66 Temp 36.1 ??C (97 ??F) (Temporal) Resp 15 SpO2 97% Anesthesia Post Evaluation Patient location during evaluation: PACU Patient participation: complete - patient participated Level of consciousness: fully awake Pain score: 0 Pain management: adequate Airway patency: patent and adequate Evidence of recall: no Anesthetic complications: no Cardiovascular status: acceptable and hemodynamically stable Respiratory status: acceptable and room air Hydration status: acceptable Pt is: normothermic Nausea/Vomiting status: none Comments: Patient is comfortable. Can be discharged from PACU to the floor. No notable events documented. MS ADJUSTOR * Anesthesia Procedure Notes - Blue Ng DO - 08/09/2022 1:42 PM CLAIMS ADJUSTOR Associated Order(s): Arterial Line Arterial Line Patient location: OR Indication: continuous blood pressure monitoring Staff: Supervising provider: Kalina White MD Placed by: Resident: Blue Ng DO Procedure prep: Prep solution: chlorhexadine/alcohol Prep: provider hat/mask and sterile gloves Arterial line: Catheter size: 3 St Helenian Catheter length: 8 cm Catheter type: wire-guided catheter Laterality: right Site: radial artery Line secured: Tegaderm and tape Results: good waveform and good blood return Number of attempts: 2 Other sites attempted: R wrist Assessment: Events: hematoma MS ADJUSTOR * Anesthesia Procedure Notes - Blue Ng DO - 08/09/2022 1:42 PM CLAIMS ADJUSTOR Associated Order(s): Peripheral IV Catheter Peripheral IV Catheter Patient location: OR Staff: Supervising provider: Kalina White MD Placed by: Resident: Blue Ng DO Preprocedure prep: Prep solution: alcohol PPE: gloves PIV line: Laterality: left Site: foot Catheter size: 18 g Technique: direct visualization Procedure details: good blood return and occlusive dressing applied Number of attempts: 1 Assessment: Events: patient tolerated procedure well with no complications MS ADJUSTOR * Anesthesia Procedure Notes - Blue Ng DO - 08/09/2022 1:40 PM CLAIMS ADJUSTOR Associated Order(s): Airway Airway Patient location: OR Urgency: elective Indications for airway management: anesthesia Difficult airway: no Staff: Supervising provider: Kalina White MD Placed by: Resident: Blue Ng DO Emergent airway documentation: Risks and benefits discussed: yes Consent obtained: yes Consent given by: patient Airway prep: Preoxygenated: yes Patient position: sniffing Mask difficulty assessment: 0 - not attempted Spontaneous ventilation during airway: absent Sedation level during airway: GA Final airway details: Final airway type: endotracheal airway Tube type: ETT ETT size: 7.0 mm Cuffed: yes Technique used for successful ETT placement: flexible bronchoscopy Devices/Methods used in placement: Ovassapian airway Insertion site: oral Cuff inflated with: air ETT to teeth: 24 cm Placement verified by: auscultation and CO2 detection Airway secured with: silk tape Number of attempts: 1 MS ADJUSTOR * Anesthesia Preprocedure Evaluation - Kalina White MD - 07/20/2022 9:14 AM CST Images from the original note were not included. [facility] for Preoperative Assessment and Planning Preoperative Evaluation Record Evaluation type/location: CPAP [facility] Planned procedure site: [facility] (Pods 2/3/5/SPLICER OPERATOR) Date: 07/20/22 Anesthesia Evaluation Annette Santiago is a 62 y.o. female Procedure(s): FUSION CERVICAL ANTERIOR DISCECTOMY WITH INSTRUMENTATION- C3-C6 instrumented anterior cervical discectomy and fusion with structural allograft SPINAL CORD MONITORING Pre-Op Diagnosis Codes: * Spinal stenosis in cervical region [M48.02] HISTORY HPI 62 y/o female undergoing evaluation prior to an anterior cervical fusion with discectomy C3-C6 for Spinal stenosis in cervical region. PMHx: GERD, Fibromyalgia, Back Pain Past Medical History Information obtained from: patient and chart. Neurological + Psychiatric history - anxiety and depression Pertinent negatives: seizures; neuromuscular disease; CVA/stroke; TIA; ICA stenosis and carotid artery stent Cardiovascular Pertinent negatives: hypertension ; CAD ; [place] ; CABG ; valvular heart disease; atrial fibrillation; arrhythmia; pacemaker/ICD; DVT/PE; negative for CHF; drug- eluting stent(s); bare metal stent(s); unknown stent(s) type and hyperlipidemia Respiratory Pertinent negatives: COPD; asthma; sleep apnea ([place]); no O2 use outside the hospital and non-smoker Hepatic / Heme Pertinent negatives: liver disease; history of anemia and history of thrombocytopenia Gastrointestinal Pertinent negatives: GERD Renal / Pertinent negatives: renal disease and dialysis Musculoskeletal/Pain + Chronic pain (LUE r/t c-spine, lower back pain) - fibromyalgia and back pain. Comments: -diagnosed with scoliosis at the age of 13, but had no treatment Endocrine / Other Pertinent negatives: diabetes mellitus; thyroid disease; obesity (BMI >30); cancer history; rheumatological disease and infectious disease Functional Capacity Functional capacity: 4-6 METs Comments: Able to take two flights of stairs at a moderate pace without a break. Denies CP. Denies SOB. Able to walk 1/2 mile w/o rest. Limited d/t back pain. Review of Systems + palpitations (Diltiazem. Controlled) + chronic pain (LUE r/t c-spine, lower back pain) + numbness/tingling (Intermittent Left foot r/t trauma, non-worsening) + vision loss (Glasses) Pertinent negatives: productive cough; wheezing; SOB; recent cold/flu; fever; chest pain; orthopnea; pedal edema; PND; previous transfusion; melena/hematochezia; easy bruising; bleeding problems; syncope; dizziness; muscle weakness; hard of hearing; nausea; dysphagia; diarrhea; dentures/partials; chipped/loose teeth and abdominal pain Comments: Denies any s/s of UTI today. LMP: Post menopausal PAT Summary and Plans Cardiac risk classification of planned procedure: intermediate cardiac risk. Preoperative assessment status: lab tests ordered. Additional comments: Annetet Santiago is a 62 y.o. female who is being evaluated prior to undergoing an intermediate cardiac risk surgery. Revised Cardiac Risk Index factors are (none) for a total RCRI of 0 out of 6. Functional capacity is 4-6 METs. Obstructive sleep apnea ([place]) screening status is STOP-Bang=2 suggesting low risk for [place] Blood bank needs for day of procedure: Type and Screen only Pending labs/tests include: CBC CMP Urinalysis flex Vitamin D T/S (Albumin, CRP, Hem A1c, ESR, Nicotine, Cotinine) Preoperative evaluation performed by Florinda Sargent NP on 07/20/22 at 10:02 AM. . Follow up note Labs reviewed and are without significant findings. Surgeon's office reviews laboratory results independently, including final results of surgeon ordered labs. CPAP process complete. Follow-up completed by: Debbie Velez NP on 07/25/22 at 9:25 AM Patient Active Problem List Diagnosis ??? Osteoarthritis of 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 ??? Shoulder pain ??? Pain of lumbar facet joint ??? Low back pain ??? Arthralgia of hip ??? High risk medication use ??? Generalized osteoarthritis ??? Fibromyalgia ??? Encounter for preventive health examination ??? Anaclitic depression ??? Osteoarthritis of cervical spine ??? Elevated liver enzymes ??? Sacroiliitis (HCC) ??? Cervicalgia ??? Chronic use of opiate drug for therapeutic purpose ??? Muscle spasm ??? Other secondary scoliosis, lumbar region ??? Sacroiliac joint dysfunction ??? Spinal stenosis in cervical region Past Medical History: Diagnosis Date ??? Anxiety [...] tissue History of osteoporosis - (Added by Conv) ??? Tachycardia ??? Urinary tract infection Past Surgical History: Procedure Laterality Date ??? CATARACT EXTRACTION right eye only ??? HYSTEROSCOPY W/ ENDOMETRIAL ABLATION ??? IA UNLISTED LAPAROSCOPY PROC,INTESTINE Intestinal Laparoscopy - (Added by Conv) ??? SPINE SURGERY upcoming w/Dr. Marion OB History No obstetric history on file. Allergies Allergen Reactions ??? Decongestant Capsule Other (See comments) bladder spasms with decongestants ??? Hay Fever And Allergy Relief Other (See comments) STUFFY HEAD, ACHINESS Med List Status: Nurse Complete Set By: Joe Garcia RN at 07/20/2022 9:02 AM Taking? Last Dose Start Date End Date Provider acetaminophen ER (TYLENOL) 650 mg 8 hr tablet 07/20/2022 07/11/20 -- Joaquín Beckman MD alendronate (FOSAMAX) 70 mg tablet Past Week 04/02/20 -- Joaquín Beckman MD ALPHA LIPOIC ACID ORAL 07/20/2022 -- -- Joaquín Beckman MD ARIPiprazole (ABILIFY) 15 mg tablet 07/19/2022 -- -- Joaquín Beckman MD Notes: Total 12.5 at HS ARIPiprazole (ABILIFY) 5 mg tablet 07/19/2022 04/20/22 -- Joaquín Beckman MD Notes: Total 12.5 mg at HS ascorbic acid (VITAMIN C) 1,000 mg tablet 07/20/2022 -- -- Joaquín Beckman MD baclofen (LIORESAL) 10 mg tablet 07/20/2022 04/07/22 -- Heriberto Webster MD PhD Take 2 tablets (20 mg total) by mouth 4 (four) times a day Takes 1-2 tabs QID Patient taking differently: Take 20 mg by mouth 4 (four) times a day Takes 1-2 tabs QID CALCIUM CARBONATE-VITAMIN D3 ORAL 07/20/2022 -- -- Joaquín Beckman MD cannabidiol, CBD, (EPIDIOLEX) 100 mg/mL solution Past Week -- -- Joaquín Beckman MD cetirizine 10 mg capsule 07/19/2022 -- -- Joaquín Beckman MD dilTIAZem SR (CARDIZEM SR) 60 mg 12 hr capsule 07/20/2022 05/23/22 -- Joaquín Beckman MD DULoxetine DR (CYMBALTA) 60 mg capsule 07/20/2022 -- -- Joaquín Beckman MD estradiol-norethindrone (ACTIVELLA) 1-0.5 mg per tablet 07/19/2022 11/14/17 -- Joaquín Beckman MD famotidine (PEPCID) 10 mg tablet 07/19/2022 07/18/22 07/18/23 Leigh Whiting MD Take 1 tablet (10 mg total) by mouth 2 (two) times a day Patient taking differently: Take 10 mg by mouth nightly HYDROcodone-acetaminophen (NORCO) 7.5-325 mg per tablet 07/20/2022 07/04/22 08/03/22 Nancy Fernanedz MD Take 1 tablet by mouth 3 (three) times a day As need for pain magnesium oxide (MAG-OX) 500 mg (301.6 mg elemental) tablet 07/20/2022 -- -- Joaquín Beckman MD meloxicam (MOBIC) 7.5 mg tablet 07/19/2022 07/18/22 07/18/23 Leigh Whiting MD Take 1 tablet (7.5 mg total) by mouth daily Patient taking differently: Take 7.5 mg by mouth nightly methocarbamoL (ROBAXIN) 500 mg tablet 07/20/2022 07/19/22 -- Andrew Hamlin, DO Take 2 tablets (1,000 mg total) by mouth 4 (four) times a day Patient taking differently: Take 1,000 mg by mouth 4 (four) times a day montelukast (SINGULAIR) 10 mg tablet 07/19/2022 04/13/17 -- Joaquín Beckman MD omega 1-bny-hbg-fish oil 1,000 mg (120 mg-180 mg) capsule 07/20/2022 -- -- Joaquín Beckmna MD ruxolitinib (Opzelura) 1.5 % cream Past Week 09/06/21 -- Joaquín Beckman MD turmeric root extract 500 mg capsule 07/20/2022 -- -- Joaquín Beckman MD zolpidem (AMBIEN) 10 mg tablet 07/19/2022 -- -- ProviderJoaquín MD Current Outpatient Medications: ??? acetaminophen ER (TYLENOL) 650 mg 8 hr tablet ??? alendronate (FOSAMAX) 70 mg tablet ??? ALPHA LIPOIC ACID ORAL ??? ARIPiprazole (ABILIFY) 15 mg tablet ??? ARIPiprazole (ABILIFY) 5 mg tablet ??? ascorbic acid (VITAMIN C) 1,000 mg tablet ??? baclofen (LIORESAL) 10 mg tablet ??? CALCIUM CARBONATE-VITAMIN D3 ORAL ??? cannabidiol, CBD, (EPIDIOLEX) 100 mg/mL solution ??? cetirizine 10 mg capsule ??? dilTIAZem SR (CARDIZEM SR) 60 mg 12 hr capsule ??? DULoxetine DR (CYMBALTA) 60 mg capsule ??? estradiol-norethindrone (ACTIVELLA) 1-0.5 mg per tablet ??? famotidine (PEPCID) 10 mg tablet ??? HYDROcodone-acetaminophen (NORCO) 7.5-325 mg per tablet ??? magnesium oxide (MAG-OX) 500 mg (301.6 mg elemental) tablet ??? meloxicam (MOBIC) 7.5 mg tablet ??? methocarbamoL (ROBAXIN) 500 mg tablet ??? montelukast (SINGULAIR) 10 mg tablet ??? omega 2-bqu-scl-fish oil 1,000 mg (120 mg-180 mg) capsule ??? ruxolitinib (Opzelura) 1.5 % cream ??? turmeric root extract 500 mg capsule ??? zolpidem (AMBIEN) 10 mg tablet Social History Tobacco Use Smoking Status Former [...] accident - (Added by TW Conv) ??? Celiac disease Son Family history of celiac disease - (Added by TW Conv) ??? Heart disease Maternal Grandfather ??? Allergy (severe) Son ??? Arthritis Mother's Brother ??? Depression Mother's Brother ??? Arthritis Mother's Sister PAT Physical Exam Airway Exam: Mallampati: III Cervical ROM: FROM TM distance: 3 Upper lip bite test class: 1 Cardiovascular Exam: Rate: regular Rhythm: regular Negative for Murmur Negative for peripheral edema Pulmonary Exam: LCTA, bilat EENT Exam: trachea midline Dental Exam: Appears intact Skin Exam: Skin is warm and dry. Turgor is normal. Abdominal exam: Abdomen is soft. Bowel sounds are present. Current state: Patient's current state is cooperative and interactive. Vitals: 07/20/22 0905 07/20/22 0912 BP: 118/89 125/81 Pulse: 86 Resp: 18 SpO2: 95% Relevant diagnostics: ECG(s): N/A Echocardiogram(s): TTE 08/2020 Conclusions: Normal appearance of the mitral valve. Trivial regurgitation of the mitral valve. Otherwise normal study. Stress test(s): N/A Cardiac catheterization(s): N/A PFT(s): N/A Vascular studies: N/A Other: MRI Cervical Spine 05/2022 IMPRESSION: Progressive worsening of the now severe degenerative changes in the cervical spine as described in detail above with moderate spinal canal stenosis noted at C3-C4 and C4-C5. There is thinning of the cord and myelomalacia at C3-C4, new from 07/01/2008. Event Monitor 04/2021 CONCLUSION 1. Sinus rhythm with average heart rate of 82 beats per minute. 2. Symptomatic episodes of supraventricular tachycardia as detailed above. Longest episode lasting for 12 seconds at a rate of 172 beats per minute. STOP-Bang Total Score: 2 Marcos index score: 100 DOS Physical Exam Medical history, medications, and allergies reviewed. Attestation: I endorse the findings of the anesthesia pre-evaluation assessment dated: 07/20/2022. Airway Exam: Mallampati: III Cervical ROM: limited extension TM distance: >4 Patient presents with retrognathia. Jaw ROM: full Cardiovascular Exam: Rate: regular Rhythm: regular Pulmonary Exam: LCTA, bilat Dental Exam: Caps and chipped Current state: Patient's current state is interactive, cooperative and anxious. Anesthesia Plan ASA 3 My patient is approved for the Anesthesia Controlled Medication protocol when under care of a PLASMA PROCESSOR Planned anesthesia: General/TIVA Invasive Monitors Planned: Invasive monitors planned: arterial line. Induction: Induction: intravenous. Postoperative Plan: Postoperative administration opioids intended. No postoperative mechanical ventilation intended. Patient's planned disposition post procedure is Floor. Informed Consent: Discussed plan with resident. Anesthesia plan and risks discussed with patient and daughter. Plan and Consent Comments: TIVA, monitoring, BIS, bite blocks. Depending on intraop course and airway edema at the end of surgery, pt may need postoperative mechanical ventilation in the ICU. Risks, including awareness, airwayedema, blindness, biting injuries, postoperative delirium, severe postoperative pain discussed withpatient. Will attempt to maintain intraop MAP>90 to optimize spinal cord perfusion, as per discussion with surgeon Consent and Attending signature: I and/or my designee have discussed the anesthesia plan, benefits, possible alternatives, parental presence at time of induction (if indicated), and clinically relevant risks that may include dental injury, unintentional awareness, and/or other complications. The patient and/or parent/legal guardian understand, and agree to proceed. All questions answered. MS ADJUSTOR MS ADJUSTOR MS ADJUSTOR MS ADJUSTOR documented in this encounter Plan of Treatment Not on file documented as of this encounter Goals Goal Patient Goal Type Associated Problems Recent Progress Patient-Stated? Author CCM Chronic Pain Care Plan Chronic Care Management Improving( 10:05 AM CLAIMS ADJUSTOR) No Bessy Mancuso RN Note: Problem: Chronic Pain Goals: 1. Minimize further functional decline 2. Maximize quality of life 3. Control pain Strategies: - Activity/exercise program recommendation - Conservative stepwise pain medicine strategy with multi-disciplinary approach - Recommend healthy lifestyle strategies and compensatory methods as needed documented as of this encounter Procedures Procedure Name Priority Date/Time Associated Diagnosis Comments ANESTHESIA ARTERIAL LINE PLACEMENT Routine 08/09/2022 1:42 PM CLAIMS ADJUSTOR PERIPHERAL LINE Routine 08/09/2022 1:42 PM CLAIMS ADJUSTOR ANESTHESIA INTUBATION Routine 08/09/2022 1:40 PM CLAIMS ADJUSTOR documented in this encounter Results * Arterial Line (08/09/2022 1:42 PM CLAIMS ADJUSTOR) Narrative Blue Ng DO - 08/09/2022 1:42 PM CLAIMS ADJUSTOR Blue Ng DO ? 08/09/2022 ??1:43 PM Arterial Line Patient location: OR Indication: continuous blood pressure monitoring Staff: Supervising provider: Kalina White MD Placed by: Resident: Blue Ng DO Procedure prep: Prep solution: chlorhexadine/alcohol Prep: provider hat/mask and sterile gloves Arterial line: Catheter size: 3 St Helenian Catheter length: 8 cm Catheter type: wire-guided catheter Laterality: right Site: radial artery Line secured: Tegaderm and tape Results: good waveform and good blood return Number of attempts: 2 Other sites attempted: R wrist Assessment: Events: hematoma us Kalina White MD ANESTHESIA ORDERABLES Fi nal Result * Peripheral IV Catheter (08/09/2022 1:42 PM CLAIMS ADJUSTOR) Narrative Blue Ng DO - 08/09/2022 1:42 PM CLAIMS ADJUSTOR Blue Ng, DO ? 08/09/2022 ??1:42 PM Peripheral IV Catheter Patient location: OR Staff: Supervising provider: Kalina White MD Placed by: Resident: Blue Ng DO Preprocedure prep: Prep solution: alcohol PPE: gloves PIV line: Laterality: left Site: foot Catheter size: 18 g Technique: direct visualization Procedure details: good blood return and occlusive dressing applied Number of attempts: 1 Assessment: Events: patient tolerated procedure well with no complications Result [facility] Kalina White MD ANESTHESIA ORDERABLES Fi nal Result * Airway (08/09/2022 1:40 PM CLAIMS ADJUSTOR) Narrative Blue Ng DO - 08/09/2022 1:40 PM CLAIMS ADJUSTOR Blue Ng, DO ? 08/09/2022 ??1:41 PM Airway Patient location: OR Urgency: elective Indications for airway management: anesthesia Difficult airway: no Staff: Supervising provider: Kalina White MD Placed by: Resident: Blue Ng DO Emergent airway documentation: Risks and benefits discussed: yes Consent obtained: yes Consent given by: patient Airway prep: Preoxygenated: yes Patient position: sniffing Mask difficulty assessment: 0 - not attempted Spontaneous ventilation during airway: absent Sedation level during airway: GA Final airway details: Final airway type: endotracheal airway Tube type: ETT ETT size: 7.0 mm Cuffed: yes Technique used for successful ETT placement: flexible bronchoscopy Devices/Methods used in placement: Ovassapian airway Insertion site: oral Cuff inflated with: air ETT to teeth: 24 cm Placement verified by: auscultation and CO2 detection Airway secured with: silk tape Number of attempts: 1 Result [facility] Kalina White MD ANESTHESIA ORDERABLES Fi nal Result documented in this encounter Visit Diagnoses Not on filedocumented in this encounter Administered Medications Inactive Administered Medications - up to 3 most recent administrations Medication Order MAR Action Action Date Dose Rate Site ceFAZolin (ANCEF) 2,000 mg/20 mL in sterile water (premix) 2,000 mg 2,000 mg, intravenous, at 400 mL/hr, Administer over 3 Minutes, Once, On Sun08/09/22 at 1115, For 1 dose, Pre-Op, Administer within 60 minutes of incision., Indications: Prophylaxis, SurgicalIndications:Prophylaxis, Surgical Given 08/09/2022 5:34 PM CLAIMS ADJUSTOR 2,000 mg Given 08/09/2022 1:35 PM CLAIMS ADJUSTOR 2,000 mg dexAMETHasone (DECADRON) 4 mg/mL injection intravenous, Administer over 2 Minutes, As needed, Starting on Sun08/09/22 at 1338, Anesthesia Intra-op Given 08/09/2022 1:38 PM CLAIMS ADJUSTOR 10 mg dexmedeTOMIDine (PRECEDEX) 80 mcg/20 mL (4 mcg/mL) in sodium chloride 0.9% (premix) intravenous, As needed, Starting on Sun08/09/22 at 1211, Anesthesia Intra-op Given 08/09/2022 1:00 PM CLAIMS ADJUSTOR 16 mcg Given 08/09/2022 12:23 PM CLAIMS ADJUSTOR 12 mcg Given 08/09/2022 12:11 PM CLAIMS ADJUSTOR 12 mcg fentaNYL (SUBLIMAZE) preservative free injection intravenous, As needed, Starting on Sun08/09/22 at 1524, Anesthesia Intra-op Given 08/09/2022 5:14 PM CLAIMS ADJUSTOR 50 mcg Given 08/09/2022 4:50 PM CLAIMS ADJUSTOR 50 mcg Given 08/09/2022 3:27 PM CLAIMS ADJUSTOR 50 mcg ketorolac (TORADOL) 30 mg/mL (1 mL) injection intravenous, As needed, Starting on Sun08/09/22 at 1715, Anesthesia Intra-op Given 08/09/2022 5:15 PM CLAIMS ADJUSTOR 15 mg labetaloL (NORMODYNE,TRANDATE) injection intravenous, As needed, Starting on Sun08/09/22 at 1657, Anesthesia Intra-op Given 08/09/2022 4:57 PM CLAIMS ADJUSTOR 10 mg Lactated Ringer's (LR) infusion 30 mL/hr, intravenous, Continuous, Starting on Sun08/09/22 at 1115, Pre-Op Rate/Dose Verify 08/09/2022 8:30 PM CLAIMS ADJUSTOR 30 mL/hr Restarted 08/09/2022 2:00 PM CLAIMS ADJUSTOR Rate/Dose Verify 08/09/2022 12:34 PM CLAIMS ADJUSTOR 30 mL/ hr lidocaine (cardiac) (XYLOCAINE) preservative free injection intravenous, As needed, Starting on Sun08/09/22 at 1251, Anesthesia Intra-op, Indications: Ventricular ArrhythmiasIndications:Ventricular Arrhythmias Given 08/09/2022 12:51 PM CLAIMS ADJUSTOR 60 mg magnesium sulfate 2 g/50 mL in water (premix) intravenous, Administer over 60 Minutes, As needed, Starting on Sun08/09/22 at 1503, Anesthesia Intra-op Given 08/09/2022 3:03 PM CLAIMS ADJUSTOR 2 g methadone injection syringe intravenous, As needed, Starting on Sun08/09/22 at 1251, Anesthesia Intra-op Given 08/09/2022 3:19 PM CLAIMS ADJUSTOR 5 mg Given 08/09/2022 2:26 PM CLAIMS ADJUSTOR 5 mg Given 08/09/2022 12:51 PM CLAIMS ADJUSTOR 10 mg ondansetron (ZOFRAN) injection intravenous, Administer over 2 Minutes, As needed, Starting on Sun08/09/22 at 1647, Anesthesia Intra-op Given 08/09/2022 4:47 PM CLAIMS ADJUSTOR 4 mg phenylephrine (ALEXIA-SYNEPHRINE) 1 mg/10 mL (100 mcg/mL) in sodium chloride 0.9% (premix) intravenous, As needed, Starting on Sun08/09/22 at 1334, Anesthesia Intra-op Given 08/09/2022 2:05 PM CLAIMS ADJUSTOR 100 mcg Given 08/09/2022 2:00 PM CLAIMS ADJUSTOR 100 mcg Given 08/09/2022 1:49 PM CLAIMS ADJUSTOR 100 mcg phenylephrine (ALEXIA-SYNEPHRINE) 5 mg/50 mL (100 mcg/mL) in sodium chloride 0.9% (premix) intravenous, Continuous PRN, Starting on Sun08/09/22 at 1326, Anesthesia Intra-op Rate/Dose Change 08/09/2022 3:42 PM CLAIMS ADJUSTOR 0.4 mcg/kg/min 16.872 mL/hr Restarted 08/09/2022 3:40 PM CLAIMS ADJUSTOR 0.2 mcg/kg/min 8.436 mL/ hr New Bag 08/09/2022 1:26 PM CLAIMS ADJUSTOR 0.4 mcg/kg/min 16.872 mL /hr propofoL (DIPRIVAN) 10 mg/mL IV intravenous, As needed, Starting on Sun08/09/22 at 1251, Anesthesia Intra-op Given 08/09/2022 5:35 PM CLAIMS ADJUSTOR 10 mg Given 08/09/2022 5:31 PM CLAIMS ADJUSTOR 10 mg Given 08/09/2022 3:41 PM CLAIMS ADJUSTOR 30 mg propofoL (DIPRIVAN) 10 mg/mL IV intravenous, Continuous PRN, Starting on Sun08/09/22 at 1254, Anesthesia Intra-op Rate/Dose Change 08/09/2022 5:06 PM CLAIMS ADJUSTOR 50 mcg/kg/min 21.09 mL/hr Rate/Dose Change 08/09/2022 5:02 PM CLAIMS ADJUSTOR 75 mcg/kg/min 31.6 35 mL/hr Rate/Dose Change 08/09/2022 4:44 PM CLAIMS ADJUSTOR 100 mcg/kg/min 42. 18 mL/hr succinylcholine (ANECTINE) injection intravenous, As needed, Starting on Sun08/09/22 at 1251, Anesthesia Intra-op Given 08/09/2022 12:52 PM CLAIMS ADJUSTOR 60 mg vancomycin 1,000 mg/200 mL in sodium chloride 0.9% (premix) 1,000 mg 1,000 mg, intravenous, Administer over 60 Minutes, Once, On Sun08/09/22 at 1115, For 1 dose, Pre-Op, Administer within 120 minutes of incision., Indications: Prophylaxis, SurgicalIndications:Prophylaxis, Surgical Given 08/09/2022 1:26 PM CLAIMS ADJUSTOR 1,000 mg documented in this encounter Orders Medications Ordered That Thai ht Not Have Been Administered Count Last Ordered Date First Ordered Date vancomycin (VANCOCIN) solution 1 08/09/2022 documented in this encounter Care Teams Automatic Winder Operator Relationship Specialty Start Date End Date Rohan Rothman MD [address] [place] [address] PCP - General 07/20/20 05/12/24 Reanna Polanco RN Registered Nurse 07/07/19 documented as of this encounter
--- OUTSIDE RECORDS SUMMARY | 2024-07-28 01:06 | XMS_ITS | Encounter Summary ---
Author Organization [facility] Healthcare Address [address] [place] [address] Care Team Providers Care Claims Representative Name Role Phone Reanna Polanco RN [facility] Rohan Salvador MD Primary Care Provider Encounter Details Date Type Department Care Team (Late st Contact Info) Description 02/02/2022 Orders Only [facility] [address] [place] [address] Felicitas Dorantes MD [address] [place] [address] Chronic use of opiate drug for therapeutic purpose (Primary Dx) Social History Tobacco Use Types Packs/Day Years Used Date Smoking Tobacco: Former Cigarettes Smokeless Tobacco: Never Alcohol Use Standard Drinks/Week Comments No 0 (1 standard drink = 0.6 oz pur e alcohol) denies AUDIT-C Answer Date Recorded Q1: How often do you have a drink containing alc ohol? Never 12/19/2021 Average Number of Drinks Not on file 022 Frequency of Binge Drinking Not on file 11/28 Comments No Sex and Gender Information Value Date Recorded Sex Assigned at Not on file Legal Sex Female 2:03 AM TOP PRECIPITATOR OPERATOR HELPER Gender Identity Female 08/26/2020 6:26 AM TOP PRECIPITATOR OPERATOR HELPER Sexual Orientation Straight 08/26/2020 6: 26 AM TOP PRECIPITATOR OPERATOR HELPER documented as of this encounter Plan of Treatment Not on file documented as of this encounter Goals Goal Patient Goal Type Associated Problems Recent Progress Patient-Stated? Author CCM Chronic Pain Care Plan Chronic Care Management Improving( 10:05 AM TOP PRECIPITATOR OPERATOR HELPER) Bessy Gayle, RN Note: Problem: Chronic [...] Primary documented in this encounter Care Teams Claims Representative Relationship Specialty Start Date End Date Rohan Rothman MD [address] [address] PCP - General 07/20/20 05/12/24 Reanna Polanco RN Registered Nurse 07/07/19 documented as of this encounter
--- OUTSIDE RECORDS SUMMARY | 2024-07-28 01:06 | XMS_ITS | Encounter Summary ---
Author Organization [facility] Healthcare Address [address] [place] [address] Care Team Providers Care Coal Mill Operator Name Role Phone Reanna Polanco RN [facility] Rohan Salvador MD Primary Care Provider Reason for Visit * Auth/Cert Specialty Diagnoses / Procedures Referred By Contac t Referred To Contact Diagnoses Spinal stenosis in cervical region Spinal stenosis in cervical region [M48.02] Procedures IA ARTHRD ANT INTERDY CERVCL BELW C2 EA ADDL NTRSPC NA Referral ID Status Reason Start Date Expiration Date Visits Re quested Visits Authorized [id number] 1 1 Encounter Details Date Type Department Care Team (Late st Contact Info) Description 08/09/2022 1:00 PM GAS UTILITY WORKER - 08/09/2022 6:15 PM GAS UTILITY WORKER Surgery [facility] Operating Room [address] [place] [address] Olivier Marion MD [address] [facility] [address] [place] [address] FUSION CERVICAL ANTERIOR DISCECTOMY WITH INSTRUMENTATION- C3-C6 instrumented anterior cervical discectomy and fusion with structural allograft Surgery Details Date/Time Status Location OR Service Patient Class Case Cl ass Case Type Trauma Case? 08/09/2022 1:00 PM Posted [facility] OR POD 5 235 Orthopaedics Outpatient in Bed Elective Panel 1 Procedure LRB Anes Op Region Wound Class Comments FUSION CERVICAL ANTERIOR DISCECTOMY WITH INSTRUMENTATION- C3-C6 instrumented anterior cervical discectomy and fusion with structural allograft N/A General Spine Cervical Class I - Clean SPINAL CORD MONITORING N/A Choice Cl ass II - Clean Contaminated Surgeon Surgeon Role Service Panel Olivier Marion MD Primary Orthopaedics 1 Wale Dumont MD Resident - Assisting Orthopae dics 1 Vivek Erickson MD Fellow Orthop aedics 1 Case Notes 07/12: Message sent, regarding block time. (DM) Special Needs [place] OSI table, fluoroscopy, irrigating bipolar, microscope, velma pi drill, Biomet Maxan plate/screws, [employer] cortico-cancellous ACF graft documented in this encounter Social History Tobacco [...] on file Legal Sex Female 2:03 AM GAS UTILITY WORKER Gender Identity Female 08/26/2020 6:26 AM GAS UTILITY WORKER Sexual Orientation Straight 08/26/2020 6: 26 AM GAS UTILITY WORKER documented as of this encounter Last Filed Vital Signs Vital Sign Reading Time Taken Comments Blood Pressure 152/75 08/09/2022 6:10 PM GAS UTILITY WORKER Pulse 73 08/09/2022 6:10 PM GAS UTILITY WORKER Temperature 36.1 ??C (97 ??F) 08/09/2022 5:55 PM GAS UTILITY WORKER Respiratory Rate 10 08/09/2022 6:10 PM GAS UTILITY WORKER Oxygen Saturation 98% 08/09/2022 6:10 PM GAS UTILITY WORKER Inhaled Oxygen Concentration - - Weight - - Height - - Body Mass Index - - documented in this encounter Discharge Summaries * Modesta Ortega NP - 08/12/2022 11:49 AM CST Images from the original note were not included. Spine Inpatient Discharge Summary Admitting Provider: Olivier Marion MD Discharge Provider: Olivier Marion MD Primary Care Physician at Discharge: Rohan Rothman MD [phone] Admission Date: 08/09/2022 Discharge Date: 08/12/2022 Primary [...] Tolerating regular diet. Last bowel movement was PRODUCTION CONTROL TECHNOLOGIST Bundy removed on 08/11, now voiding spontaneously. Therapy recommendations: Home Incision: Skin glue Brace: [place] collar Surgical drains: NOAH x 1, removed [...] to surgery. Commonly known as: BACTROBAN omega 3-gwf-ehw-fish oil 1,000 mg (120 mg-180 mg) capsule [...] Olivier Marion MD at 08/13/2022 9:56 AM GAS UTILITY WORKER UTILITY WORKER UTILITY WORKER documented in this encounter Discharge Instructions * Discharge Instructions* Luli Bond MD - 08/12/2022 3:14 PM GAS UTILITY WORKER Discharge Instructions Anterior Cervical Discectomy and Fusion [...] blood pressure), call your family doctor or medical billing representative. You will be given a prescription for pain medications, a muscle relaxer and possibly a laxative, aspain medications can cause constipation. Take the pain medicines as instructed. If your pain is notreasonably controlled by the medications, contact your doctor???s office. Follow up - Orthopedic Surgery: You should follow up August 24, 2022 - Your primary care physician to have repeat labs. UTILITY WORKER UTILITY WORKER UTILITY WORKER UTILITY WORKER documented in this encounter Medications at Time [...] hours 90 tablet 08/12/2022 09/20/19 23 omega 9-bgi-ode-fish oil 1,000 mg (120 mg-180 mg) capsule [...] 60mg BID CV: #Tachycardia - Follows with scientific investigator; has had full work-up that was unremarkable [...] Mills MD PhD at 08/12/2022 5:30 PM GAS UTILITY WORKER UTILITY WORKER UTILITY WORKER UTILITY WORKER * Vivek Erickson MD - 08/12/2022 5:28 [...] extension 5/5 5/5 Wrist flexion 5/5 5/5 Clinical Research Assistant 5/5 5/5 Interosseous of hand 5/5 5/5 [...] If questions arise on patients at [facility] and the appropriate resident/fellow can't be reached or you are calling overnight, please contact [phone] ([facility]- 7:30 PM - 6:30 AM - Floor Resident) or [phone] (24 hours/day - Consult Resident) If you are calling about a patient at [facility] please page/call fellow or resident electronic specialist. Note created by Vivek Erickson MD on 08/12/2022 at 5:29 AM. Cosigned by Olivier Marion MD at 08/14/2022 8:16 AM GAS UTILITY WORKER UTILITY WORKER UTILITY WORKER * Gabriella Kaplan MD - 08/11/2022 6:24 [...] chloride 0.9%, 0.5-20 mL, intra-catheter, Q8H [facility] Continuous Infusions: PRN Meds:. albuterol cyclobenzaprine [...] 60mg BID CV: #Tachycardia - Follows with scientific investigator; has had full work-up that was unremarkable [...] Olivier Phillips MD at 08/12/2022 5:42 AM GAS UTILITY WORKER UTILITY WORKER UTILITY WORKER * Nicole Lazar, PT - 08/11/2022 8:09 [...] Yes Prior Function Prior Function Level of [place]: Independent functional transfers, Independent with ambulation Lives [...] treatment team and contact the PT or PRODUCTION CONTROL TECHNOLOGIST currently assigned to this patient. If a physical therapy clinician is not assigned to this patient, please call [phone]. UTILITY WORKER * Shiva Puente MD - 08/11/2022 6:21 [...] 60mg BID CV: #Tachycardia - Follows with scientific investigator; has had full work-up that was unremarkable [...] plan with the ICU team and other medical/professional housing consultant staff. Shiva Puente MD UTILITY WORKER UTILITY WORKER UTILITY WORKER UTILITY WORKER * Vivek Erickson MD - 08/11/2022 5:29 [...] extension 5/5 5/5 Wrist flexion 5/5 5/5 Clinical Research Assistant 5/5 5/5 Interosseous of hand 5/5 5/5 [...] If questions arise on patients at [facility] and the appropriate resident/fellow can't be reached or you are calling overnight, please contact [phone] ([facility]- 7:30 PM - 6:30 AM - Floor Resident) or [phone] (24 hours/day - Consult Resident) If you are calling about a patient at [facility] please page/call fellow or resident electronic specialist. Note created by Vivek Erickson MD on 08/11/2022 at 5:30 AM. Cosigned by Olivier Marion MD at 08/14/2022 8:15 AM GAS UTILITY WORKER UTILITY WORKER UTILITY WORKER * Shamar Lema MD - 08/11/2022 12:28 [...] 5/5 5/5 Wrist flexion (C7) 5/5 5/5 Clinical Research Assistant (C8) 5/5 5/5 Interosseous of hand (T1) [...] Olivier Marion MD at 08/14/2022 8:17 AM GAS UTILITY WORKER UTILITY WORKER UTILITY WORKER * Gabriella Kaplan MD - 08/10/2022 8:30 [...] chloride 0.9%, 0.5-20 mL, intra-catheter, Q8H [facility] Continuous Infusions: PRN Meds:. albuterol cyclobenzaprine dextrose [...] 60mg BID CV: #Tachycardia - Follows with scientific investigator; has had full work-up that was unremarkable [...] Joe Trimble MD at 08/13/2022 1:55 PM GAS UTILITY WORKER UTILITY WORKER UTILITY WORKER * Sagrario Meyers RN - 08/10/2022 9:34 [...] Collaboration with patient, MD, direct care nurse, Computer Assistant, and other members of the health care team to assure needed interventions completed. 2. Return patient to optimal level of self-care post discharge. 3. Functional Architect will follow for Discharge Planning - interventions [...] with the aftercare plan. Sagrario Meyers RN UTILITY WORKER * Shiva Puente MD - 08/10/2022 6:30 [...] Ringer's, 25 mL/hr, Last Rate: 25 mL/hr (08/09/222327) fentaNYL, 0-400 mcg/hr, Last Rate: 75 mcg/hr (08/10/22 050) phenylephrine, 0-4 mcg/kg/min, Last Rate: Stopped (08/10/22 0119) propofol, 0-50 mcg/kg/min, Last Rate: 30 mcg/kg/min (08/10/22 050) PRN Meds:. albuterol sodium chloride 0.9% dextrose [...] tolerating PO CV: #Tachycardia - Follows with scientific investigator; has had full work-up that was unremarkable [...] plan with the ICU team and other medical/professional housing consultant staff. Shiva Puente MD UTILITY WORKER UTILITY WORKER UTILITY WORKER * Vivek Erickson MD - 08/10/2022 5:59 [...] extension 5/5 5/5 Wrist flexion 5/5 5/5 Clinical Research Assistant 5/5 5/5 Interosseous of hand 5/5 5/5 [...] injection 1-3 Units 1-3 Units subcutaneous Q4H [facility] sodium chloride 0.9% flush 0.5-20 mL 0.5-20 [...] If questions arise on patients at [facility] and the appropriate resident/fellow can't be reached or you are calling overnight, please contact [phone] ([facility] 7:30 PM - 6:30 AM - Floor Resident) or [phone] (24 hours/day - Consult Resident) If you are calling about a patient at [facility] please page/call fellow or resident electronic specialist. Note created by Vivek Erickson MD on 08/10/2022 at 5:59 AM. Cosigned by Olivier Marion MD at 08/14/2022 8:14 AM GAS UTILITY WORKER UTILITY WORKER UTILITY WORKER UTILITY WORKER * Shamar Lema MD - 08/10/2022 3:00 [...] 5/5 5/5 Wrist flexion (C7) 5/5 5/5 Clinical Research Assistant (C8) 5/5 5/5 Interosseous of hand (T1) [...] Olivier Marion MD at 08/14/2022 8:17 AM GAS UTILITY WORKER UTILITY WORKER UTILITY WORKER * Shamar Lema MD - 08/09/2022 11:45 [...] Wrist flexion (C7) Spontaneously moving Spontaneously moving Clinical Research Assistant (C8) Spontaneously moving Spontaneously moving Interosseous of [...] Olivier Marion MD at 08/14/2022 8:17 AM GAS UTILITY WORKER UTILITY WORKER UTILITY WORKER * Vivek Erickson MD - 08/09/2022 10:25 [...] MD MS Orthopaedic Surgery - Spine Fellow [facility] [place] Cosigned by Olivier Marion MD at 08/14/2022 8:14 AM GAS UTILITY WORKER UTILITY WORKER UTILITY WORKER * Vivek Erickson MD - 08/09/2022 6:36 [...] extension 5/5 5/5 Wrist flexion 5/5 5/5 Clinical Research Assistant 5/5 5/5 Interosseous of hand 5/5 5/5 [...] If questions arise on patients at [facility] and the appropriate resident/fellow can't be reached or you are calling overnight, please contact [phone] ([facility] 7:30 PM - 6:30 AM - Floor Resident) or [phone] (24 hours/day - Consult Resident) If you are calling about a patient at [facility] please page/call fellow or resident electronic specialist. Note created by Vivek Erickson MD on 08/09/2022 at 6:36 PM. Cosigned by Olivier Marion MD at 08/14/2022 8:14 AM GAS UTILITY WORKER UTILITY WORKER UTILITY WORKER documented in this encounter H&P Notes * [...] right eye only HYSTEROSCOPY W/ ENDOMETRIAL ABLATION IA UNLISTED LAPAROSCOPY PX INTESTINE XCP RECTUM Intestinal Laparoscopy - (Added by TW Conv) SPINE SURGERY upcoming w/Dr. Marion Medications [...] to surgery. 22 g 0 08/08/2022 omega 8-gsn-xiq-fish oil 1,000 mg (120 mg-180 mg) capsule [...] Joe Trimble MD at 08/10/2022 7:11 PM GAS UTILITY WORKER UTILITY WORKER UTILITY WORKER Associated attestation - Joe Trimble MD - 08/10/2022 7:11 PM GAS UTILITY WORKER I have personally seen and examined this [...] Physical Therapy: Yes (for lumbar spine) Prior ocular care technician: No Prior Accupuncture: No Past Medical History: [...] right eye only HYSTEROSCOPY W/ ENDOMETRIAL ABLATION IA UNLISTED LAPAROSCOPY PROC,INTESTINE Intestinal Laparoscopy - [...] prior to surgery. 22 g 0 omega 9-qme-zxt-fish oil 1,000 mg (120 mg-180 mg) capsule [...] intact Motor: Deltoid Biceps Triceps WE WF Clinical Research Assistant Right 5 5 5 5 5 [...] oblique cervical radiographs were taken 05/09/[address] [facility]. I personally reviewed these films which demonstrated significant degenerative spondylosis at C3-C6 with loss of cervical lordosis, anterolisthesis of C3 on C4. MRI: Cervical MRI performed on 05/30/[address] [facility] was personally reviewed by me and redemonstrates [...] proceed. Vivek Erickson MD Surgical Spine Fellow UTILITY WORKER documented in this encounter Procedure Notes * [...] plan with the patient's team and other medical/professional housing consultant staff. This time was in addition [...] spent time documenting in the medical record UTILITY WORKER * Joe Trimble MD - 08/10/2022 7:29 [...] plan with the ICU team and other medical/professional housing consultant staff, making frequent assessments and decisions [...] spent time documenting in the medical record UTILITY WORKER * Shiva Puente MD - 08/10/2022 8:36 [...] plan with the ICU team and other medical/professional housing consultant staff, making frequent assessments and decisions [...] spent time documenting in the medical record UTILITY WORKER documented in this encounter Nursing Notes * Sandrita Robles RN - 08/12/2022 4:33 PM CST Discharge instructions reviewed with patient and her daughter. They both voice understanding, discharge per WC home with glassess, cellphone and bellows charger assembler. UTILITY WORKER * Loni Lee RN - 08/09/2022 8:50 PM CST Patient emergently returned to OR at this time with surgical and anesthesia team. UTILITY WORKER documented in this encounter Miscellaneous Notes * [...] Patient and daughter voice understanding of discharge. UTILITY WORKER * Plan of Care - Fadia Gallo RN - 08/11/2022 10:22 PM GAS UTILITY WORKER Goals: Clinical Goals for the Shift: q4h [...] and injury in home environment Outcome: Defer UTILITY WORKER * Plan of Micky - Jazmin Page RN - 08/11/2022 5:14 [...] neuro checks, pain control, oobtc, VS Q4 UTILITY WORKER * Plan of Care - Fadia Gallo RN - 08/11/2022 2:22 AM GAS UTILITY WORKER Goals: Clinical Goals for the Shift: q4h [...] injury from restraints (Restraint for Interference with News Specialist) Description: INTERVENTIONS: 1. Identify and document the [...] Free from restraint(s) (Restraint for Interference with News Specialist) Description: INTERVENTIONS: 1. Q2H and PRN: Assess and document the continuing need for restraints 2. Q24H: Continued use of restraint requires LIP to perform face to face examination and written order (ICU restraint orders are not reviewed Q24H only at the time of initiation) 3. Identify and implement measures to help patient regain control Outcome: Completed UTILITY WORKER * Plan of Care - Gabriella Camejo [...] injury from restraints (Restraint for Interference with News Specialist) Description: INTERVENTIONS: 1. Identify and document the [...] Free from restraint(s) (Restraint for Interference with News Specialist) Description: INTERVENTIONS: 1. Q2H and PRN: Assess [...] of education and is progressing towards goals. UTILITY WORKER * Plan of Care - Bela Hdez [...] Patient's Respiratory Status and Intervene as Necessary. UTILITY WORKER * Plan of Care - Demond Keith [...] on day shift due to difficult airway. UTILITY WORKER * Plan of Care - Reanna Howard [...] injury from restraints (Restraint for Interference with News Specialist) Description: INTERVENTIONS: 1. Identify and document the [...] Free from restraint(s) (Restraint for Interference with News Specialist) Description: INTERVENTIONS: 1. Q2H and PRN: Assess [...] improve to fullest extent possible Outcome: Progressing UTILITY WORKER * Op Note - Olivier Marion MD [...] identify any But then placed a 15 [place] deep drain. then we closed with 3-0 [...] procedure This complex surgery required a skilled mri assistant. Please note that Dr Vivek Erickson MD [...] assist with this case Olivier Marion MD UTILITY WORKER * Brief Op Note - Vivek Erickson MD - 08/09/2022 9:13 PM GAS UTILITY WORKER Operative Progress Note Surgical Team: Surgeon(s) and Role: * Olivier Marion MD - Primary * Vivek Erickson MD - Resident - Assisting Anesthesiologist: Grayson Granados MD PhD; Piedad Poe MD State Federal Relations Deputy Director: Gildardo Tovar MD Director Of Religious Life: Archana Cordova RN Book Editor: Darlene Kline RT Scrub Relief: Hua Villa; Lisa Li RN Scrub: Trevin Hatch RN Director Of Religious Life Second: Ann Marie Wolf RN DATE OF [...] Olivier Marion MD at 08/14/2022 8:14 AM GAS UTILITY WORKER UTILITY WORKER UTILITY WORKER * Perioperative Nursing Note - Loni Lee RN - 08/09/2022 8:03 PM CST 1925- The patient was awake and alert, started having some respiratory distress/ acute changes. Under her c-collar was more swollen to touch and her voice was sounding tight. Surgery team notified byphone and internal communications writer called to bedside- nonrebreather mask applied and [...] talk to family in person before OR. 2000- Mutiple attendings at bedside for re-intubation. Patient [...] 1g- given by Dr. Granados at bedside. UTILITY WORKER UTILITY WORKER * Op Note - Olivier Marion MD [...] Implant Name Type Inv. Item Serial No. Emission Technician Lot No. LRB No. Used Action MUSCULOSKELETAL TRANSPLANT [id number] FROZEN SPINE 7D LORDOTIC TRAPEZOID SPACER ALLOGRAFT [id number] -[id number] - [id number] MUSCULOSKELETAL TRANSPLANT [id number] Frozen Spine 7d Lordotic Trapezoid Spacer Allograft 090080 [id number] Musculoskeletal Transplant N/A 1 Implanted MUSCULOSKELETAL TRANSPLANT [id number] FROZEN SPINE 7D LORDOTIC TRAPEZOID SPACER ALLOGRAFT 361965 -[id number] - [id number] MUSCULOSKELETAL TRANSPLANT 12.3u99l7ps Frozen Spine 7d Lordotic Trapezoid Spacer Allograft 553043 [id number] Musculoskeletal Transplant N/A 1 Implanted MUSCULOSKELETAL TRANSPLANT [id number] FROZEN SPINE 7D LORDOTIC TRAPEZOID SPACER ALLOGRAFT 059326 -[id number] - [id number] MUSCULOSKELETAL TRANSPLANT 12.2z14k6as Frozen Spine 7d Lordotic Trapezoid Spacer Allograft 695461 [id number] Musculoskeletal Transplant N/A 1 Implanted [employer] 4MM 16MM FIX SCREW BONE 14-121061 - [id number] [employer] 4mm 16mm Fix Screw Bone [id number] DIANN BIOMET SPINE INC N/A 8 Implanted [employer] C-LIVIA MAXAN 51MM LEVEL 3 FIX SPINE CERVICAL ANTERIOR PLATE BONE 14-857928 - [id number] [employer] C-livia Maxan 51mm Level 3 Fix Spine Cervical Anterior Plate Bone [id number] DIANN [employer]OMET SPINE INC N/A 1 Implanted [...] osteophytes We then used a 14 mm Colton pin placed in the C3 vertebral body [...] C3-C4 disk space. We then removed the Colton pin out of the C3 level and [...] was then extubated transferred to the PACU. IDr. Marion, was present and scrubbed for the entire procedure This complex surgery required a skilled mri assistant. Please note that Dr Vivek Erickson MD [...] assist with this case Olivier Marion MD UTILITY WORKER * Brief Op Note - Vivek Erickson MD - 08/09/2022 2:10 PM GAS UTILITY WORKER Operative Progress Note Surgical Team: Surgeon(s) and Role: * Olivier Marion MD - Primary * Wale Dumont MD - Resident - Assisting * Vivek Erickson MD - Fellow Anesthesiologist: Kalina White MD State Federal Relations Deputy Director: Blue Ng DO Director Of Religious Life: Kong Law RN Scrub Relief: Familia Marion ST Scrub: Sheri Robles ST Collection Officer: Souleymane Lawrence [place], [place]; Gutierrez Herrera [place] Telephone Supervisor: Matilde Hauser NP [place] Scrub: Coleen Lawton RN Orientee Director Of Religious Life: Judith Marin RN; Reanna Ramirez RN DATE [...] Implant Name Type Inv. Item Serial No. Emission Technician Lot No. LRB No. Used Action MUSCULOSKELETAL TRANSPLANT [id number] FROZEN SPINE 7D LORDOTIC TRAPEZOID SPACER ALLOGRAFT [id number] -[id number] - [id number] MUSCULOSKELETAL TRANSPLANT 12.1t94q5bv Frozen Spine 7d Lordotic Trapezoid Spacer Allograft 361661 [id number] Musculoskeletal Transplant N/A 1 Implanted MUSCULOSKELETAL TRANSPLANT [id number] FROZEN SPINE 7D LORDOTIC TRAPEZOID SPACER ALLOGRAFT 004917 -[id number] - [id number] MUSCULOSKELETAL TRANSPLANT 12.1a43v2fo Frozen Spine 7d Lordotic Trapezoid Spacer Allograft 291525 [id number] Musculoskeletal Transplant N/A 1 Implanted MUSCULOSKELETAL TRANSPLANT 12.3F69I5RF FROZEN SPINE 7D LORDOTIC TRAPEZOID SPACER ALLOGRAFT 217903 -[id number] - [id number] MUSCULOSKELETAL TRANSPLANT 12.6j09g9yh Frozen Spine 7d Lordotic Trapezoid Spacer Allograft 468312 [id number] Musculoskeletal Transplant N/A 1 Implanted [employer] 4MM 16MM FIX SCREW BONE 14-959569 - [id number] DIANN [employer] 4mm 16mm Fix Screw Bone 14-955965 DIANN BIOMET SPINE INC N/A 8 Implanted [employer] C-LIVIA MAXAN 51MM LEVEL 3 FIX SPINE CERVICAL ANTERIOR PLATE BONE 14-751431 - [id number] [employer] C-livia Maxan 51mm Level 3 Fix Spine Cervical Anterior Plate Bone [id number] DIANN BIOMET SPINE INC N/A 1 Implanted Blood/Blood Products Transfused: 0 mls Complications: None Condition on Discharge from the operating room was stable Vivek Erickson MD Date: 08/09/2022 Time: 5:52 PM TEACHING ATTESTATION : I was present and directly participated in the entire procedure (including opening and closing). Cosigned by Olivier Marion MD at 08/14/2022 8:14 AM GAS UTILITY WORKER UTILITY WORKER UTILITY WORKER documented in this encounter Plan of Treatment Not on file documented as of this encounter Goals Goal Patient Goal Type Associated Problems Recent Progress Patient-Stated? Author CCM Chronic Pain Care Plan Chronic Care Management Improving( 10:05 AM GAS UTILITY WORKER) No Bessy Mancuso, RN Note: Problem: Chronic [...] 3 VIEWS IP Routine 08/12/2022 10:50 AM GAS UTILITY WORKER EGFR STAT 08/12/2022 8:43 AM GAS UTILITY WORKER CBC WITHOUT DIFFERENTIAL STAT 08/12/2022 8:43 AM GAS UTILITY WORKER BASIC METABOLIC PANEL STAT 08/12/2022 8:43 AM GAS UTILITY WORKER EGFR Routine 08/11/2022 8:49 PM GAS UTILITY WORKER DIFFERENTIAL AUTO Routine 08/11/2022 8:4 9 PM GAS UTILITY WORKER CBC WITH AUTO DIFFERENTIAL Routine 08/11/2022 8:49 PM GAS UTILITY WORKER PHOSPHORUS Routine 08/11/2022 8:49 PM GAS UTILITY WORKER MAGNESIUM Routine 08/11/2022 8:49 PM GAS UTILITY WORKER COMPREHENSIVE METABOLIC PANEL Routine 08/11/2022 8:49 PM GAS UTILITY WORKER CRITICAL CARE Routine 08/11/2022 6:40 AM GAS UTILITY WORKER Cervical spinal stenosis POCT GLUCOSE DEVICE Routine 08/10/2022 11:03 PM GAS UTILITY WORKER EGFR Routine 08/10/2022 8:27 PM GAS UTILITY WORKER DIFFERENTIAL AUTO Routine 08/10/2022 8:2 7 PM GAS UTILITY WORKER CBC WITH AUTO DIFFERENTIAL Routine 08/10/2022 8:27 PM GAS UTILITY WORKER PHOSPHORUS Routine 08/10/2022 8:27 PM GAS UTILITY WORKER MAGNESIUM Routine 08/10/2022 8:27 PM GAS UTILITY WORKER COMPREHENSIVE METABOLIC PANEL Routine 08/10/2022 8:27 PM GAS UTILITY WORKER CRITICAL CARE Routine 08/10/2022 7:29 PM GAS UTILITY WORKER Cervical spinal stenosis POCT GLUCOSE DEVICE Routine 08/10/2022 7 :15 PM GAS UTILITY WORKER POCT GLUCOSE DEVICE Routine 08/10/2022 3 :22 PM GAS UTILITY WORKER EXTUBATION Routine 08/10/2022 12:19 PM GAS UTILITY WORKER POCT GLUCOSE DEVICE Routine 08/10/2022 11:28 AM GAS UTILITY WORKER CRITICAL CARE Routine 08/10/2022 8:36 AM GAS UTILITY WORKER Cervical spinal stenosis POCT GLUCOSE DEVICE Routine 08/10/2022 7 :42 AM GAS UTILITY WORKER POCT GLUCOSE DEVICE Routine 08/10/2022 3 :05 AM GAS UTILITY WORKER ECG 12-LEAD Routine 08/10/2022 12:01 AM GAS UTILITY WORKER XR CHEST 1 VIEW ED Urgent/IP Urgent 08/09/2022 11:27 PM GAS UTILITY WORKER EGFR STAT 08/09/2022 11:21 PM GAS UTILITY WORKER DIFFERENTIAL AUTO STAT 08/09/2022 11:21 PM GAS UTILITY WORKER CBC WITH AUTO DIFFERENTIAL STAT 08/09/2022 11:21 PM GAS UTILITY WORKER TRIGLYCERIDES STAT 08/09/2022 11:21 PM GAS UTILITY WORKER PHOSPHORUS STAT 08/09/2022 11:21 PM GAS UTILITY WORKER MAGNESIUM STAT 08/09/2022 11:21 PM GAS UTILITY WORKER BLOOD GAS, ARTERIAL STAT 08/09/2022 11:21 PM GAS UTILITY WORKER LIPID PANEL STAT 08/09/2022 11:21 PM GAS UTILITY WORKER COMPREHENSIVE METABOLIC PANEL STAT 08/09/2022 11:21 PM GAS UTILITY WORKER POCT GLUCOSE DEVICE Routine 08/09/2022 10:51 PM GAS UTILITY WORKER POC BLOOD GAS AND CHEMISTRIES, ARTERIAL Routine 08/09/2022 9:33 PM GAS UTILITY WORKER FL FLUOROSCOPY < 1 HOUR IP Routine 08/09/2022 9:20 PM GAS UTILITY WORKER HC ANTIBODY SCREEN RBC Timed 8:31 PM GAS UTILITY WORKER FL FLUOROSCOPY < 1 HOUR IP Routine 08/09/2022 5:12 PM GAS UTILITY WORKER SPINAL CORD MONITORING 12:40 PM GAS UTILITY WORKER Spinal stenosis in cervical region Case Notes 07/12: Message sent, regarding block time. (DM) Special Needs Chandan OSI table, fluoroscopy, irrigating bipolar, microscope, velma pi drill, Biomet Maxan plate/screws, [employer] cortico-cancellous ACF graft FUSION CERVICAL ANTERIOR DISCECTOMY WITH INSTRUMENTATION 08/09/2022 12:40 PM GAS UTILITY WORKER Spinal stenosis in cervical region Case Notes 07/12: Message sent, regarding block time. (DM) Special Needs Chandan OSI table, fluoroscopy, irrigating bipolar, microscope, velma pi drill, [employer] Maxan plate/screws, [employer] cortico-cancellous ACF graft COVID-19 CORONAVIRUS RNA Routine 08/09/2022 11:12 AM GAS UTILITY WORKER documented in this encounter Results * XR Spine Cervical 2 or 3 Views (08/12/2022 10:50 AM GAS UTILITY WORKER) Anatomical Region Laterality Modality Spine N/A Computed Radiogr aphy 08/12/2022 10:5 4 AM GAS UTILITY WORKER Impressions 08/12/2022 10:54 AM GAS UTILITY WORKER Interval anterior discectomy and instrumented fusion C3-C6. Electronically signed by: Jarod Page M.D. Narrative 08/12/2022 10:54 AM GAS UTILITY WORKER EXAMINATION: Cervical spine 2 or 3 views HISTORY: Cervical spondylosis FINDINGS: 2 views of the cervical spine were performed with comparison made to 07/20/2022. ??There has been interval anterior cervical discectomy and instrumented fusion C3-C6. ??There is prevertebral soft tissue swelling and a surgical drain. ??There is [id number] degenerative disc disease at the nonfused segments. [...] swelling and a surgical drain. There is [id number] degenerative disc disease at the nonfused segments. There is levoscoliosis of the upper thoracic spine. IMPRESSION: Interval anterior discectomy and instrumented fusion C3-C6. Electronically signed by: Jarod Page M.D. us Olivier Marion MD IMG XR PROCEDURES Final Re sult * eGFR (08/12/2022 8:43 AM GAS UTILITY WORKER) Pathologist [facility] eGFR >90 90 - 130 mL/min/1. 73 m2 [facility] Comment: Interpretive Data Reference Interval Normal [...] last reviewed 2021. Blood 08/12/2022 8:43 AM GAS UTILITY WORKER 08/12/2022 9:04 AM GAS UTILITY WORKER us Olivier Marion MD LAB BLOOD ORDERABLES Final Result Performing Organization Address City/State/[facility] Co de Phone Number [facility] [place] [address] * (ABNORMAL) Basic metabolic panel (08/12/2022 8:43 AM GAS UTILITY WORKER) Sodium 135 135 - 145 mmol/L [facility] Potassium, pl 3.9 3.3 - 4.9 mmol/L [facility] Chloride 96(L) 97 - 110 mmol/L [facility] CO2 32 22 - 32 mmol/L [facility] Anion gap 7 2 - 15 mmol/L [facility] BUN 8 8 - 25 mg/dL [facility] Creatinine 0.57(L) 0.60 - 1.10 mg/dL [facility] Glucose 103 70 - 199 mg/dL [facility] Comment: Interpretive Data Fasting glucose >/= [...] 2017. Calcium 8.9 8.5 - 10.3 mg/dL [facility] Blood 08/12/2022 8:43 AM GAS UTILITY WORKER 08/12/2022 9:04 AM GAS UTILITY WORKER Olivier Marion MD LAB BLOOD ORDERABLES Final Result Performing Organization Address City/[facility]/ZIP Co de Phone Number [facility] [place] [address] * (ABNORMAL) CBC without differential (08/12/2022 8:43 AM GAS UTILITY WORKER) WBC 7.3 3.8 - 9.9 K/cumm [facility] Hgb 10.5(L) 11.9 - 15.5 g/dL [facility] Hct 32.1(L) 35.6 - 45.5 % [facility] Plt 186 150 - 400 K/cumm [facility] MPV 11.6 9.1 - 12.3 fL [facility] RBC 3.38(L) 3.90 - 5.20 M/cumm [facility] MCV 95.0 81.3 - 96.4 fL [facility] MCH 31.1 27.1 - 33.3 pg [facility] MCHC 32.7 32.3 - 35.7 g/dL [facility] RDW CV 12.3 11.1 - 14.9 % [facility] RDW SD 43.0 35.7 - 48.1 fL [facility] NRBC abs 0.00 0.00 - 0.01 K/cumm [facility] Blood 08/12/2022 8:43 AM GAS UTILITY WORKER 08/12/2022 9:04 AM GAS UTILITY WORKER Olivier Marion MD LAB BLOOD ORDERABLES Final Result Performing Organization Address City/[facility]/ZIP Co de Phone Number [facility] [place] [address] * eGFR (08/11/2022 8:49 PM GAS UTILITY WORKER) Pathologist [facility] eGFR >90 90 - 130 mL/min/1. 73 m2 [facility] Comment: Interpretive Data Reference Interval Normal ?>/= [...] last reviewed 2021. Blood 08/11/2022 8:49 PM GAS UTILITY WORKER 08/11/2022 9:03 PM GAS UTILITY WORKER us Olivier Marion MD LAB BLOOD ORDERABLES Final Result [facility] [place] [address] * Differential, auto (08/11/2022 8:49 PM GAS UTILITY WORKER) Neutrophil abs 5.6 1.7 - 6.5 K/cumm [facility] Imm gran abs 0.1 0.0 - 0.1 K/cumm [facility] Lymphocyte abs 1.9 0.8 - 3.3 K/cumm [facility] Monocyte abs 0.6 0.2 - 0.8 K/cumm [facility] Eosinophil abs 0.0 0.0 - 0.5 K/cumm [facility] Basophil abs 0.0 0.0 - 0.1 K/cumm [facility] Neutrophil pct 68.4 % [facility] Comment: Interpretive Data Percent cell count reference ranges are not reported, since discordance with absolute values may lead to misinterpretation of CBC data. Current Interpretive Data was last revised on 2017. Imm gran pct 0.6 % [facility] Comment: Interpretive Data Percent cell count reference ranges are not reported, since discordance with absolute values may lead to misinterpretation of CBC data. Current Interpretive Data was last revised on 2017. Lymphocyte pct 23.3 % [facility] Comment: Interpretive Data Percent cell count reference ranges are not reported, since discordance with absolute values may lead to misinterpretation of CBC data. Current Interpretive Data was last revised on 2017. Monocyte pct 7.0 % [facility] Comment: Interpretive Data Percent cell count reference ranges are not reported, since discordance with absolute values may lead to misinterpretation of CBC data. Current Interpretive Data was last revised on 2017. Eosinophil pct 0.5 % [facility] Comment: Interpretive Data Percent cell count reference ranges are not reported, since discordance with absolute values may lead to misinterpretation of CBC data. Current Interpretive Data was last revised on 2017. Basophil pct 0.2 % [facility] Comment: Interpretive Data Percent cell count reference ranges are not reported, since discordance with absolute values may lead to misinterpretation of CBC data. Current Interpretive Data was last revised on 2017. Blood 08/11/2022 8:49 PM GAS UTILITY WORKER 08/11/2022 9:03 PM GAS UTILITY WORKER us Olivier Marion MD LAB BLOOD ORDERABLES Final Result [facility] [place] [address] * (ABNORMAL) Phosphorus (08/11/2022 8:49 PM GAS UTILITY WORKER) [facility] Phosphorus, pl 1.6(L) 2.3 - 4.5 mg/dL [facility] Blood 08/11/2022 8:49 PM GAS UTILITY WORKER 08/11/2022 9:03 PM GAS UTILITY WORKER Olivier Marion MD LAB BLOOD [place] [address] * Magnesium (08/11/2022 8:49 PM GAS UTILITY WORKER) [facility] Magnesium 2.1 1.4 - 2.5 mg/dL [facility] Blood 08/11/2022 8:49 PM GAS UTILITY WORKER 08/11/2022 9:03 PM GAS UTILITY WORKER Olivier Marion MD LAB BLOOD ORDERABLES Final Result Performing Organization Address [facility]/[place] [address] * (ABNORMAL) Comprehensive metabolic panel (08/11/2022 8:49 PM GAS UTILITY WORKER) [facility] Sodium 133(L) 135 - 145 mmol/L [facility] Comment:Repeated and Verifie d Potassium, pl 3.1(L) 3.3 - 4.9 mmol/L [facility] Chloride 96(L) 97 - 110 mmol/L [facility] CO2 30 22 - 32 mmol/L [facility] Anion gap 7 2 - 15 mmol/L [facility] BUN 12 8 - 25 mg/dL [facility] Creatinine 0.57(L) 0.60 - 1.10 mg/dL [facility] Glucose 126 70 - 199 mg/dL [facility] Comment: Interpretive Data Fasting glucose >/= [...] 2017. Calcium 8.5 8.5 - 10.3 mg/dL [facility] Bilirubin, total 0.3 0.1 - 1.2 mg/dL [facility] Protein, pl 6.5 6.5 - 8.5 g/dL [facility] Albumin 4.0 3.5 - 5.0 g/dL [facility] Alk phos 43 40 - 130 Units/L [facility] ALT 21 7 - 45 Units/L [facility] AST 28 10 - 45 Units/L [facility] Blood 08/11/2022 8:49 PM GAS UTILITY WORKER 08/11/2022 9:03 PM GAS UTILITY WORKER us Olivier Marion MD LAB BLOOD ORDERABLES Final Result [facility] Department [place] [address] * (ABNORMAL) CBC with auto differential (08/11/2022 8:49 PM GAS UTILITY WORKER) Pathologist [facility] WBC 8.2 3.8 - 9.9 K/cumm [facility] Hgb 9.9(L) 11.9 - 15.5 g/dL [facility] Hct 29.4(L) 35.6 - 45.5 % [facility] Plt 166 150 - 400 K/cumm [facility] MPV 11.6 9.1 - 12.3 fL [facility] RBC 3.04(L) 3.90 - 5.20 M/cumm [facility] MCV 96.7(H) 81.3 - 96.4 fL [facility] MCH 32.6 27.1 - 33.3 pg [facility] MCHC 33.7 32.3 - 35.7 g/dL [facility] RDW CV 12.5 11.1 - 14.9 % [facility] RDW SD 43.9 35.7 - 48.1 fL [facility] NRBC abs 0.00 0.00 - 0.01 K/cumm [facility] Blood 08/11/2022 8:49 PM GAS UTILITY WORKER 08/11/2022 9:03 PM GAS UTILITY WORKER us Olivier Marion MD LAB BLOOD ORDERABLES Final Result [facility] Department [place] [address] * Critical Care (08/11/2022 6:40 AM GAS UTILITY WORKER) Narrative Shiva Puente MD - 08/11/2022 6:40 AM GAS UTILITY WORKER Shiva Puente MD ? 08/11/2022 ??5:31 PM [...] plan with the patient's team and other medical/professional housing consultant staff. This time was in addition [...] Result * POCT glucose (08/10/2022 11:03 PM GAS UTILITY WORKER) Glucose, POC 126 70 - 199 mg/dL [facility] Blood 08/10/2022 11:0 3 PM GAS UTILITY WORKER 08/10/2022 11:03 PM GAS UTILITY WORKER us Olivier Marion MD LAB POCT ORDERABLES - AMELIE CE Final Result [facility] Department [place] [address] * eGFR (08/10/2022 8:27 PM GAS UTILITY WORKER) eGFR >90 90 - 130 mL/min/1. 73 m2 [facility] Comment: Interpretive Data Reference Interval Normal [...] last reviewed 2021. Blood 08/10/2022 8:27 PM GAS UTILITY WORKER 08/10/2022 8:40 PM GAS UTILITY WORKER us Olivier Marion MD LAB BLOOD ORDERABLES Final Result [facility] Department [place] [address] * (ABNORMAL) Differential, auto (08/10/2022 8:27 PM GAS UTILITY WORKER) Neutrophil abs 10.7(H) 1.7 - 6.5 K/cumm [facility] Imm gran abs 0.1 0.0 - 0.1 K/cumm [facility] Lymphocyte abs 0.8 0.8 - 3.3 K/cumm [facility] Monocyte abs 0.8 0.2 - 0.8 K/cumm [facility] Eosinophil abs 0.0 0.0 - 0.5 K/cumm [facility] Basophil abs 0.0 0.0 - 0.1 K/cumm [facility] Neutrophil pct 86.9 % [facility] Comment: Interpretive Data Percent cell count reference ranges are not reported, since discordance with absolute values may lead to misinterpretation of CBC data. Current Interpretive Data was last revised on 2017. Imm gran pct 0.4 % [facility] Comment: Interpretive Data Percent cell count reference ranges are not reported, since discordance with absolute values may lead to misinterpretation of CBC data. Current Interpretive Data was last revised on 2017. Lymphocyte pct 6.5 % [facility] Comment: Interpretive Data Percent cell count reference ranges are not reported, since discordance with absolute values may lead to misinterpretation of CBC data. Current Interpretive Data was last revised on 2017. Monocyte pct 6.2 % [facility] Comment: Interpretive Data Percent cell count reference ranges are not reported, since discordance with absolute values may lead to misinterpretation of CBC data. Current Interpretive Data was last revised on 2017. Eosinophil pct 0.0 % [facility] Comment: Interpretive Data Percent cell count reference ranges are not reported, since discordance with absolute values may lead to misinterpretation of CBC data. Current Interpretive Data was last revised on 2017. Basophil pct 0.0 % [facility] Comment: Interpretive Data Percent cell count reference ranges are not reported, since discordance with absolute values may lead to misinterpretation of CBC data. Current Interpretive Data was last revised on 2017. Blood 08/10/2022 8:27 PM GAS UTILITY WORKER 08/10/2022 8:40 PM GAS UTILITY WORKER Olivier Marion MD LAB BLOOD ORDERABLES Final Result Performing Organization Address City/[facility] Co de Phone Number [facility] [place] [address] * Phosphorus (08/10/2022 8:27 PM GAS UTILITY WORKER) Phosphorus, pl 2.8 2.3 - 4.5 mg/dL [facility] Blood 08/10/2022 8:27 PM GAS UTILITY WORKER 08/10/2022 8:40 PM GAS UTILITY WORKER Result [facility] Olivier Marion MD LAB BLOOD ORDERABLES Final Result Performing Organization Address [facility] Co de Phone Number [facility] [place] [address] * Magnesium (08/10/2022 8:27 PM GAS UTILITY WORKER) Magnesium 2.4 1.4 - 2.5 mg/dL [facility] Blood 08/10/2022 8:27 PM GAS UTILITY WORKER 08/10/2022 8:40 PM GAS UTILITY WORKER Olivier Marion MD LAB BLOOD ORDERABLES Final Result Performing Organization Address City/[facility] Co de Phone Number [facility] [place] [address] * (ABNORMAL) Comprehensive metabolic panel (08/10/2022 8:27 PM GAS UTILITY WORKER) [facility] Sodium 144 135 - 145 mmol/L [facility] Potassium, pl 4.0 3.3 - 4.9 mmol/L [facility] Chloride 105 97 - 110 mmol/L [facility] CO2 28 22 - 32 mmol/L [facility] Anion gap 11 2 - 15 mmol/L [facility] BUN 8 8 - 25 mg/dL [facility] Creatinine 0.61 0.60 - 1.10 mg/dL [facility] Glucose 141 70 - 199 mg/dL [facility] Comment: Interpretive Data Fasting glucose >/= [...] 2017. Calcium 9.0 8.5 - 10.3 mg/dL [facility] Bilirubin, total 0.4 0.1 - 1.2 mg/dL [facility] Protein, pl 6.9 6.5 - 8.5 g/dL [facility] Albumin 4.2 3.5 - 5.0 g/dL [facility] Alk phos 34(L) 40 - 130 Units/L [facility] ALT 17 7 - 45 Units/L [facility] AST 29 10 - 45 Units/L [facility] Blood 08/10/2022 8:27 PM GAS UTILITY WORKER 08/10/2022 8:40 PM GAS UTILITY WORKER us Olivier Marion MD LAB BLOOD ORDERABLES Final Result [facility] Department [place] [address] * (ABNORMAL) CBC with auto differential (08/10/2022 8:27 PM GAS UTILITY WORKER) [facility] Signature WBC 12.3(H) 3.8 - 9.9 K/cumm [facility] Hgb 11.1(L) 11.9 - 15.5 g/dL [facility] Hct 34.1(L) 35.6 - 45.5 % [facility] Plt 200 150 - 400 K/cumm [facility] MPV 11.9 9.1 - 12.3 fL [facility] RBC 3.48(L) 3.90 - 5.20 M/cumm [facility] MCV 98.0(H) 81.3 - 96.4 fL [facility] MCH 31.9 27.1 - 33.3 pg [facility] MCHC 32.6 32.3 - 35.7 g/dL [facility] RDW CV 12.6 11.1 - 14.9 % [facility] RDW SD 45.1 35.7 - 48.1 fL [facility] NRBC abs 0.00 0.00 - 0.01 K/cumm [facility] Blood 08/10/2022 8:27 PM GAS UTILITY WORKER 08/10/2022 8:40 PM GAS UTILITY WORKER Olivier Marion MD LAB BLOOD ORDERABLES Final Result [facility] [place] [address] * Critical Care (08/10/2022 7:29 PM GAS UTILITY WORKER) Narrative Joe Trimble MD - 08/10/2022 7:29 PM GAS UTILITY WORKER Joe Trimble MD ? 08/13/2022 ??1:57 PM [...] plan with the ICU team and other medical/professional housing consultant staff, making frequent assessments and decisions [...] Result * POCT glucose (08/10/2022 7:15 PM GAS UTILITY WORKER) Glucose, POC 173 70 - 199 mg/dL [facility] Blood 08/10/2022 7:15 PM GAS UTILITY WORKER 08/10/2022 7:15 PM GAS UTILITY WORKER Olivier Marion MD LAB POCT ORDERABLES - AMELIE CE Final Result Performing Organization Address [facility]/ZIP Co de Phone Number [facility] [place] [address] * POCT glucose (08/10/2022 3:22 PM GAS UTILITY WORKER) Glucose, POC 143 70 - 199 mg/dL [facility] Blood 08/10/2022 3:22 PM GAS UTILITY WORKER 08/10/2022 3:22 PM GAS UTILITY WORKER Olivier Marion MD LAB POCT ORDERABLES - AMELIE CE Final Result Performing Organization Address City/[facility]/ZIP Co de Phone Number [facility] [place] [address] * POCT glucose (08/10/2022 11:28 AM GAS UTILITY WORKER) Glucose, POC 145 70 - 199 mg/dL [facility] Blood 08/10/2022 11:2 8 AM GAS UTILITY WORKER 08/10/2022 11:28 AM GAS UTILITY WORKER us Olivier Marion MD LAB POCT ORDERABLES - AMELIE CE Final Result [facility] [place] [address] * Critical Care (08/10/2022 8:36 AM GAS UTILITY WORKER) Narrative Shiva Puente MD - 08/10/2022 8:36 AM GAS UTILITY WORKER Shiva Puente MD ? 08/10/2022 ??5:13 PM [...] plan with the ICU team and other medical/professional housing consultant staff, making frequent assessments and decisions [...] Result * POCT glucose (08/10/2022 7:42 AM GAS UTILITY WORKER) Glucose, POC 145 70 - 199 mg/dL [facility] Blood 08/10/2022 7:42 AM GAS UTILITY WORKER 08/10/2022 7:42 AM GAS UTILITY WORKER Olivier Marion MD LAB POCT ORDERABLES - AMELIE CE Final Result Performing Organization Address [facility] Co de Phone Number [facility] [place] [address] * POCT glucose (08/10/2022 3:05 AM GAS UTILITY WORKER) Glucose, POC 166 70 - 199 mg/dL [facility] Blood 08/10/2022 3:05 AM GAS UTILITY WORKER 08/10/2022 3:05 AM GAS UTILITY WORKER Result [facility] Olivier Marion MD LAB POCT ORDERABLES - AMELIE CE Final Result Performing Organization Address [facility] Co de Phone Number [facility] [place] [address] * ECG 12 lead (08/10/2022 12:01 AM GAS UTILITY WORKER) Ventricular Rate EKG/Min 58 BPM [facility] Atrial Rate 58 BPM [facility] IA-Interval (MSEC) 182 ms [facility] QRS-Interval (MSEC) 84 ms [facility] QT-Interval (MSEC) 460 ms [facility] QTc 451 ms [facility] P Dyke 63 degrees [facility] R Dyke 76 degrees [facility] T Dyke 74 degrees [facility] Diagnosis Sinus bradycardia Otherwise normal ECG No previous ECGs available Confirmed by SUSY ESCOBEDO M.D ([id number]) on 08/17/2022 10:03:[address] [facility] 08/10/2022 12:0 1 AM GAS UTILITY WORKER 08/17/2022 10:03 AM GAS UTILITY WORKER Luli Bond MD ECG ORDERABLES Final Result [facility] * X-ray chest 1 view (Portable) (08/09/2022 11:27 PM GAS UTILITY WORKER) Anatomical Region Laterality Modality Body, Chest N/A Computed Radiogr aphy 08/10/2022 8:35 AM GAS UTILITY WORKER Impressions 08/10/2022 8:35 AM GAS UTILITY WORKER The patient is status post cervical spine [...] Yash Martinez M.D. Narrative 08/10/2022 8:35 AM GAS UTILITY WORKER EXAMINATION: 1 view chest radiograph Procedure Note [...] sult * Lipid panel (08/09/2022 11:21 PM GAS UTILITY WORKER) Cholesterol 101 30 - 199 mg/dL [facility] Comment: Interpretive Data Ages < or = [...] on 2018. Triglycerides 39 <=149 mg/dL [facility] Comment: Interpretive Data Ages < or = [...] revised on 2018. HDL 41 >=40 mg/dL [facility] Comment: Interpretive Data Ages < or = [...] on 2018. LDL, calculated 52 <=129 mg/dL [facility] Comment: Telephone report made to: Shira Camejo RN on 08/10/2022 18:55:48 GAS UTILITY WORKER by KF . Interpretive Data Ages < [...] revised on 2018. Non-HDL Cholesterol 60 mg/dL [facility] Comment: Interpretive Data Ages < or = [...] last revised on 2018. Chol/HDL ratio [address] [facility] Blood 08/09/2022 11:2 1 PM GAS UTILITY WORKER 08/09/2022 11:42 PM GAS UTILITY WORKER Narrative [facility] - 08/10/2022 6:58 PM GAS UTILITY WORKER Reflex us Olivier Marion MD LAB BLOOD ORDERABLES Edite d Result - Final [facility] [place] [address] * eGFR (08/09/2022 11:21 PM GAS UTILITY WORKER) eGFR >90 90 - 130 mL/min/1. 73 m2 [facility] Comment: Interpretive Data Reference Interval Normal [...] reviewed 2021. Blood 08/09/2022 11:2 1 PM GAS UTILITY WORKER 08/09/2022 11:42 PM GAS UTILITY WORKER us Olivier Marion MD LAB BLOOD ORDERABLES Final Result [facility] Department [place] [address] * Triglycerides (08/09/2022 11:21 PM GAS UTILITY WORKER) Pathologist [facility] Triglycerides 39 <=149 mg/dL [facility] Comment: Interpretive Data Ages < or = [...] on 2018. Blood 08/09/2022 11:2 1 PM GAS UTILITY WORKER 08/09/2022 11:42 PM GAS UTILITY WORKER us Olivier Marion MD LAB BLOOD ORDERABLES Final Result [facility] [place] [address] * (ABNORMAL) Differential, auto (08/09/2022 11:21 PM GAS UTILITY WORKER) Pathologist [facility] Neutrophil abs 7.9(H) 1.7 - 6.5 K/cumm [facility] Imm gran abs 0.0 0.0 - 0.1 K/cumm [facility] Lymphocyte abs 0.3(L) 0.8 - 3.3 K/cumm [facility] Monocyte abs 0.3 0.2 - 0.8 K/cumm [facility] Eosinophil abs 0.0 0.0 - 0.5 K/cumm [facility] Basophil abs 0.0 0.0 - 0.1 K/cumm [facility] Neutrophil pct 92.3 % [facility] Comment: Interpretive Data Percent cell count reference ranges are not reported, since discordance with absolute values may lead to misinterpretation of CBC data. Current Interpretive Data was last revised on 2017. Imm gran pct 0.4 % [facility] Comment: Interpretive Data Percent cell count reference ranges are not reported, since discordance with absolute values may lead to misinterpretation of CBC data. Current Interpretive Data was last revised on 2017. Lymphocyte pct 3.9 % [facility] Comment: Interpretive Data Percent cell count reference ranges are not reported, since discordance with absolute values may lead to misinterpretation of CBC data. Current Interpretive Data was last revised on 2017. Monocyte pct 3.3 % [facility] Comment: Interpretive Data Percent cell count reference ranges are not reported, since discordance with absolute values may lead to misinterpretation of CBC data. Current Interpretive Data was last revised on 2017. Eosinophil pct 0.0 % [facility] Comment: Interpretive Data Percent cell count reference ranges are not reported, since discordance with absolute values may lead to misinterpretation of CBC data. Current Interpretive Data was last revised on 2017. Basophil pct 0.1 % [facility] Comment: Interpretive Data Percent cell count reference ranges are not reported, since discordance with absolute values may lead to misinterpretation of CBC data. Current Interpretive Data was last revised on 2017. Blood 08/09/2022 11:2 1 PM G[employer] UTILITY WORKER 08/09/2022 11:42 PM GAS UTILITY WORKER us Olivier Marion MD LAB BLOOD ORDERABLES Final Result [facility] Department [place] [address] * (ABNORMAL) CBC with auto differential (08/09/2022 11:21 PM GAS UTILITY WORKER) [facility] WBC 8.6 3.8 - 9.9 K/cumm [facility] Hgb 10.0(L) 11.9 - 15.5 g/dL [facility] Hct 30.3(L) 35.6 - 45.5 % [facility] Plt 196 150 - 400 K/cumm [facility] MPV 11.0 9.1 - 12.3 fL [facility] RBC 3.19(L) 3.90 - 5.20 M/cumm [facility] MCV 95.0 81.3 - 96.4 fL [facility] MCH 31.3 27.1 - 33.3 pg [facility] MCHC 33.0 32.3 - 35.7 g/dL [facility] RDW CV 12.1 11.1 - 14.9 % [facility] RDW SD 42.6 35.7 - 48.1 fL [facility] NRBC abs 0.00 0.00 - 0.01 K/cumm [facility] Blood 08/09/2022 11:2 1 PM GAS UTILITY WORKER 08/09/2022 11:42 PM GAS UTILITY WORKER Olivier Marion MD LAB BLOOD ORDERABLES Final Result Performing Organization Address [facility] Co de Phone Number [facility] [place] [address] * Phosphorus (08/09/2022 11:21 PM GAS UTILITY WORKER) [facility] Phosphorus, pl 3.1 2.3 - 4.5 mg/dL [facility] Blood 08/09/2022 11:2 1 PM GAS UTILITY WORKER 08/09/2022 11:42 PM GAS UTILITY WORKER Olivier Marion MD LAB BLOOD ORDERABLES Final Result Performing Organization Address [facility]/ZIP Co de Phone Number [facility] [place] [address] * Magnesium (08/09/2022 11:21 PM GAS UTILITY WORKER) Magnesium 1.9 1.4 - 2.5 mg/dL [facility] Blood 08/09/2022 11:2 1 PM GAS UTILITY WORKER 08/09/2022 11:42 PM GAS UTILITY WORKER Olivier Marion MD LAB BLOOD ORDERABLES Final Result [facility] Department [place] [address] * (ABNORMAL) Comprehensive metabolic panel (08/09/2022 11:21 PM GAS UTILITY WORKER) Pathologist [facility] Sodium 143 135 - 145 mmol/L [facility] Potassium, pl 3.8 3.3 - 4.9 mmol/L [facility] Chloride 108 97 - 110 mmol/L [facility] CO2 25 22 - 32 mmol/L [facility] Anion gap 10 2 - 15 mmol/L [facility] BUN 9 8 - 25 mg/dL [facility] Creatinine 0.64 0.60 - 1.10 mg/dL [facility] Glucose 161 70 - 199 mg/dL [facility] Comment: Interpretive Data Fasting glucose >/= [...] 2017. Calcium 8.4(L) 8.5 - 10.3 mg/dL [facility] Bilirubin, total 0.2 0.1 - 1.2 mg/dL [facility] Protein, pl 6.0(L) 6.5 - 8.5 g/dL [facility] Albumin 4.0 3.5 - 5.0 g/dL [facility] Alk phos 29(L) 40 - 130 Units/L [facility] ALT 13 7 - 45 Units/L [facility] AST 15 10 - 45 Units/L [facility] Blood 08/09/2022 11:2 1 PM GAS UTILITY WORKER 08/09/2022 11:42 PM GAS UTILITY WORKER Olivier Marion MD LAB BLOOD ORDERABLES Final Result Performing Organization Address [facility] Co de Phone Number [facility] [place] [address] * (ABNORMAL) Blood gas, arterial (08/09/2022 11:21 PM GAS UTILITY WORKER) pH, Art 7.34(L) 7.35 - 7.45 [facility] PCO2, Arterial 44 35 - 45 mmHg [facility] PO2, Arterial 181(H) 83 - 108 mmHg [facility] HCO3 Art (Calculated) 24 20 - 30 mmol/L [facility] BE, art -2 mmol/L [facility] Comment: Interpretive Data No Reference Range Established Current Interpretive Data was last revised on 2017 O2 Sat Art (Measured) 100(H) 90 - 95 % [facility] Blood 08/09/2022 11:2 1 PM GAS UTILITY WORKER 08/09/2022 11:28 PM GAS UTILITY WORKER Olivier Marion MD LAB BLOOD ORDERABLES Final Result Performing Organization Address [facility] Co de Phone Number [facility] Department [place] [address] * POCT glucose (08/09/2022 10:51 PM GAS UTILITY WORKER) Glucose, POC 173 70 - 199 mg/dL [facility] Blood 08/09/2022 10:5 1 PM GAS UTILITY WORKER 08/09/2022 10:51 PM GAS UTILITY WORKER Olivier Marion MD LAB POCT ORDERABLES - AMELIE CE Final Result [facility] Department [place] [address] * (ABNORMAL) POC Blood Gas and Chemistries, Arterial - (08/09/2022 9:33 PM GAS UTILITY WORKER) pH, Art POC 7.21(L) 7.35 - 7.[address] [facility] pCO2, Art POC 69(H) 35 - 45 mmHg [facility] pO2, Art POC 44(L) 83 - [address] [facility] Na, POC 139 135 - 145 mmol/L [facility] K POC 3.8 3.3 - 4.9 mmol/L [facility] Comment: Interpretive Data This method is not able to assess for hemolysis, which may falsely increase potassium concentrations. If further testing is needed to evaluate this result, consider in-laboratory plasma potassium. Current Interpretive Data was last revised on 2022. Cl, POC 107 97 - 110 mmol/L [facility] Ionized Ca, POC 5.07 4.50 - 5.10 mg/dL [facility] Glucose, POC 215(H) 70 - 199 mg/dL [facility] Lactate, POC 2.5(H) 0.7 - 2.2 mmol/L [facility] SO2 (godwin) arterial 71(L) 90 - 95 % [facility] Base excess, POC -1.5 mmol/L [facility] HCO3, Art POC 23 20 - 30 mmol/L [facility] Hct, POC 35.0(L) 36.3 - 45.3 % [facility] O2 Sat, Art POC (Calc) 68 % [facility] Total Hb, POC 11.5(L) 11.9 - 15.5 g/dL [facility] Blood 08/09/2022 9:33 PM GAS UTILITY WORKER 08/09/2022 9:33 PM GAS UTILITY WORKER us Olivier Marion MD LAB POCT ORDERABLES - AMELIE CE Final Result [facility] [place] [address] * [place] Fluoroscopy < 1 Hour (08/09/2022 9:20 PM GAS UTILITY WORKER) Narrative AMANDA_CHRIS - 08/10/2022 1:12 AM GAS UTILITY WORKER The images from this study are not interpreted by Radiology. ??Please refer to the physician's procedure / OR operative note. Olivier Marion MD IMG FLUOROSCOPY PROCEDURES Final Result Performing Organization Address [facility] Co de Phone Number [email or web address] * Type and screen (08/09/2022 8:31 PM GAS UTILITY WORKER) Anabelle, indirect Negative [facility] ABO Rh B Positive [facility] Blood 08/09/2022 8:31 PM GAS UTILITY WORKER 08/09/2022 8:38 PM GAS UTILITY WORKER Narrative CERWALKER PEREZ - 08/09/2022 9:30 PM GAS UTILITY WORKER Has the patient had Daratumumab or Isatuximab in the past 6 months?->Unknown Gildardo Tovar MD LAB BLOOD BANK TEST ORDERAB LES Final Result Performing Organization Address [facility] de Phone Number JT PANDYA [facility] Department [place] [address] * [place] Fluoroscopy < 1 Hour (08/09/2022 5:12 PM GAS UTILITY WORKER) Narrative AMANDA_CHRIS - 08/09/2022 5:14 PM GAS UTILITY WORKER The images from this study are not interpreted by Radiology. ??Please refer to the physician's procedure / OR operative note. Olivier Marion MD IMG FLUOROSCOPY PROCEDURES Final Result Performing Organization Address [facility] Co de Phone Number [email or web address] * COVID-19 Coronavirus RNA Nasopharyngeal (08/09/2022 11:12 AM GAS UTILITY WORKER) COVID-19 RNA Negative Negative [facility] Nasopharyngeal 08/09/2022 11 :12 AM GAS UTILITY WORKER 08/09/2022 11:31 AM GAS UTILITY WORKER Kirby PEREZ - 08/09/2022 12:09 PM GAS UTILITY WORKER Is the patient experiencing any symptoms consistent with COVID (eg. Fever, cough, shortness of breath)?->No What is the reason for testing?->Bed placement or semi-private room (Rapid) ??Interpretive data: Synonyms for this test include: PCR and NAAT . ??This test is performed using the BlackJet Xpert Xpress plus assay. This is a [...] . ??This test is performed using the BlackJet Xpert Xpress plus assay. This is a [...] GENERAL ORDERABLES Final Result Performing Organization Address City/State/[facility] Co de Phone Number JT PEREZ [facility] Department [place] [address] documented in this encounter Visit Diagnoses Diagnosis Cervical spinal stenosis Spinal stenosis in cervical region Cervical spinal stenosis Spinal stenosis in cervical region Fibromyalgia Unspecified myalgia and myositis Generalized osteoarthritis Generalized osteoarthrosis, involving multiple sites Muscle spasm Spasm of muscle Osteoporosis Unspecified osteoporosis GERD (gastroesophageal reflux disease) Esophageal reflux Depression Depressive disorder, not elsewhere classified Spinal stenosis in cervical region documented in [...] First dose on Sun08/10/22 at 1530, Indications: preOPIndications:preOP Given 08/12/2022 12:42 PM GAS UTILITY WORKER 1,000 mg Given 08/12/2022 5:43 AM GAS UTILITY WORKER 1,000 mg Given 08/11/2022 11:16 PM GAS UTILITY WORKER 1,000 mg ARIPiprazole (ABILIFY) tablet 12.5 mg 12.5 mg, oral, Nightly, First dose (after last modification) on Sun08/11/22 at 2100 Given 08/11/2022 8:35 PM GAS UTILITY WORKER 12 .5 mg baclofen (LIORESAL) tablet 10 mg 10 mg, oral, 4 times daily, First dose on Sun08/11/22 at 1200 Given 08/12/2022 12:42 PM GAS UTILITY WORKER 10 mg Given 08/12/2022 8:04 AM GAS UTILITY WORKER 10 mg Given 08/11/2022 8:35 PM GAS UTILITY WORKER 10 mg bupivacaine-EPINEPHrine (MARCAINE with EPI) 0.25 %-1:200,000 preservative free injection As needed, Starting on Sun08/09/22 at 1413, Intra-Op Given 08/09/2022 2:13 PM GAS UTILITY WORKER 5 mL cyclobenzaprine (FLEXERIL) tablet 5 mg 5 mg, oral, 3 times daily PRN, muscle spasms, Starting on Sun08/10/22 at 1742 Given 08/10/2022 6:16 PM GAS UTILITY WORKER [address] (CYMBALTA) extended release capsule 60 mg 60 mg, oral, 2 times daily, First dose on Sun08/10/22 at 2100, Capsule may be opened and contents mixed with applesauce or apple juice ONLY. Do not crush, chew, cut, dissolve, open or otherwise manipulate tablet/capsule., Indications: Anxiety with DepressionIndications:Anxiety with Depression Given 08/12/2022 8:0 6 AM GAS UTILITY WORKER 60 mg Given 08/11/2022 8:34 PM GAS UTILITY WORKER 60 mg Given 08/11/2022 9:00 AM GAS UTILITY WORKER 60 mg estradiol-norethindrone (ACTIVELLA) 0.5-0.1 mg per tablet 1 tablet 1 tablet, oral, Nightly, First dose on Sun08/10/22 at 2100 Given 08/11/2022 8:34 PM GAS UTILITY WORKER 1 tablet Given 08/10/2022 8:10 PM GAS UTILITY WORKER 1 tablet gabapentin (NEURONTIN) capsule 300 mg 300 mg, oral, 2 times daily, First dose on Sun08/10/22 at 2100 Given 08/12/2022 8:06 AM GAS UTILITY WORKER 300 mg Given 08/11/2022 8:34 PM GAS UTILITY WORKER 300 mg Given 08/11/2022 9:00 AM GAS UTILITY WORKER 300 mg methocarbamoL (ROBAXIN) tablet 1,000 mg 1,000 mg, oral, Every 8 hours, First dose on Sun08/10/22 at 1815 Given 08/12/2022 10:56 AM GAS UTILITY WORKER 1,000 mg Given 08/12/2022 1:24 AM GAS UTILITY WORKER 1,000 mg Given 08/11/2022 5:09 PM GAS UTILITY WORKER 1,000 mg metoprolol XL (TOPROL-XL) extended release tablet 25 mg 25 mg, oral, Daily, First dose on Sun08/10/22 at 1530, Tablets that are scored may be split, but do not crush, chew, dissolve, open or otherwise manipulate tablet/capsule. Given 08/12/2022 8:05 AM GAS UTILITY WORKER 25 m g Given 08/11/2022 9:00 AM GAS UTILITY WORKER 25 mg Given 08/10/2022 3:21 PM GAS UTILITY WORKER 25 mg montelukast (SINGULAIR) tablet 10 mg 10 mg, oral, Nightly, First dose on Sun08/10/22 at 2100, Indications: Seasonal Allergic RhinitisIndications:Seasonal Allergic Rhinitis Given 08/11/2022 8:34 PM GAS UTILITY WORKER 10 mg Given 08/10/2022 8:10 PM GAS UTILITY WORKER 10 mg oxyCODONE (ROXICODONE) tablet 5 mg 5 mg, oral, Every 4 hours PRN, 2nd line for pain, Starting on 08/12/22 at 0045, Indications: PainIndications:Pain Given 08/12/2022 2:04 PM GAS UTILITY WORKER 5 mg Given 08/12/2022 5:42 AM GAS UTILITY WORKER 5 mg Given 08/12/2022 1:24 AM GAS UTILITY WORKER 5 mg polyethylene glycol (MIRALAX) packet 17 g 17 g, oral, Daily, First dose on Sun08/11/22 at 1500, Indications: constipationIndications:constipation Given 08/11/2022 3:41 PM GAS UTILITY WORKER 17 g ramelteon (ROZEREM) tablet 8 mg 8 mg, oral, Nightly PRN, sleep, Starting on Sun08/10/22 at 1951, Indications: Sleep-Onset InsomniaIndications:Sleep-Onset Insomnia Given 08/11/2022 8:35 PM GAS UTILITY WORKER 8 m g Given 08/10/2022 8:10 PM GAS UTILITY WORKER 8 mg senna-docusate (PERICOLACE) 8.6-50 mg per tablet 1 tablet 1 tablet, oral, Nightly, First dose on Nola 08/10/22 at 2100 Given 08/11/2022 8:35 PM GAS UTILITY WORKER 1 tablet Given 08/10/2022 8:10 PM GAS UTILITY WORKER 1 tablet sodium chloride 0.9% flush 0.5-20 mL 0.5-20 mL, intra-catheter, Every 8 hours scheduled, First dose on Sun08/09/22 at 2345, Flush volume based on line type and size. Given 08/12/2022 4:13 AM GAS UTILITY WORKER 10 mL Given 08/11/2022 8:37 PM GAS UTILITY WORKER 10 mL Given 08/11/2022 5:25 AM GAS UTILITY WORKER 10 mL sodium chloride 0.9% flush 0.5-20 mL 0.5-20 mL, intra-catheter, As needed, line care, Starting on Sun08/09/22 at 2258, Flush volume based on line type and size. Flush before and after each use. sodium chloride 0.9% irrigation As needed, Starting on Sun08/09/22 at 1417, Intra-Op Given 08/09/2022 2:17 PM GAS UTILITY WORKER 1,000 mL Surgical Site sodium phosphate - potassium phosphate (K-PHOS NEUTRAL) tablet 500 mg 500 mg, oral, 4 times daily (with meals and nightly), First dose on Sun08/12/22 at 0800, For 4 doses, Each tablet contains elemental phosphorus 250 mg (8 mmol), potassium 45 mg (1.1 mEq), and sodium 298 mg (13 mEq). Given 08/12/2022 12:42 PM GAS UTILITY WORKER 500 mg Given 08/12/2022 8:06 AM GAS UTILITY WORKER 500 mg thrombin-recombinant 5,000 unit topical solution As needed, Starting on Sun08/09/22 at 1417, Intra-Op Given 08/09/2022 2:17 PM GAS UTILITY WORKER 5,000 Units Surgical Site documented in this encounter Discontinued [...] Recently Administered Medications Times are shown in GAS UTILITY WORKER. Scheduled Medication Order 08/10/2022 08/11/2022 08/12/2022 acetaminophen [...] Fadia Gallo RN)1242 (Given - Provider: Sandrita Robles, RUBIO) ARIPiprazole (ABILIFY) tablet 12.5 mg 12.5 mg, oral, Nightly, First dose (after last modification) on Sun08/11/22 at 2099 2034 (Given - Provider: Fadia Gallo RN) ARIPiprazole (ABILIFY) tablet 5 mg (CANCELED) 5 mg, oral, Nightly, First dose on Sun08/10/22 at 2099 2010 (Given - Provider: Fadia Galol RN) ARIPiprazole (ABILIFY) tablet 7.5 mg (CANCELED) 7.5 mg, oral, Nightly, First dose on Sun08/10/22 at 2099 2009 (Given - Provider: Fadia Gallo RN) baclofen (LIORESAL) tablet 10 mg 10 mg, oral, 4 times daily, First dose on Sun08/11/22 at 1200 1214 (Given - Provider: Hafsa Moore, RUBIO)1709 (Given - Provider: Jazmin Page RN)2034 (Given - Provider: Fadia Gallo RN) 0804 (Given - Provider: Sandrita Robles RN)1242 (Given - Provider: Sandrita Robles RN) ceFAZolin (ANCEF) 1 gram/10 mL in sterile water (premix) 1,000 mg (COMPLETED) 1,000 mg, intravenous, at 200 mL/hr, Administer over 3 Minutes, Every 8 hours, First dose on Sun08/10/22 at 0500, For 3 doses, Beginning 8 hours after last brittany-procedural dose., Indications: Prophylaxis, Surgical 0615 (Given - Provider: Reanna Howard RN)1430 (Given - Provider: Gabriella Camejo RN)2109 (Given - Provider: Fadia Gallo RN) chlorhexidine (PERIDEX) 0.12 % solution 15 mL (CANCELED) 15 mL, mouth/throat, 2 times daily, First dose on Sun08/09/22 at 2345, Swab all oral surfaces and suction excess. Discontinue Chlorhexidine Gluconate after patient liberated from mechanical ventilation., Indications: Prevention of Ventilator-Associated Pneumonia 09 (Given - Provider: Gabriella Camejo, RUBIO) dexAMETHasone [...] 2009 (Given - Provider: Fadia Gallo RN) 899 (Given - Provider: Idania Patel RN)2033 (Given - Provider: Fadia Gallo RN) 08 [...] Gallo RN) 0900 (Given - Provider: Idania Patel RN)2033 (Given - Provider: Fadia Gallo RN) 08 (Given - Provider: Sandrita Robles RN) magnesium sulfate 2 g/50 mL in water [...] Camejo RN) 0238 (Given - Provider: Fadia Gallo, RUBIO)0900 (Given - Provider: Idania Patel, RUBIO)1709 (Given - Provider: Jazmin Page, RUBIO) 0124 (Given - Provider: Fadia Gallo, RUBIO)1056 (Given - Provider: Sandrita Robles, RUBIO) metoprolol [...] Nola 08/10/22 at 2100, Indications: Seasonal Allergic Rhinitis 2009 (Given - Provider: Fadia Gallo, RUBIO) 2033 (Given - Provider: Fadia Gallo, RUBIO) polyethylene glycol (MIRALAX) packet 17 g 17 g, oral, Daily, First dose on Sun08/11/22 at 1500, Indications: constipation 1541 (Given - Provider: Jazmin Page, RUBIO) 0805 (Not Given - Provider: Sandrita Robles, [...] at 2100 2009 (Given - Provider: Fadia Gallo, RUBIO) 203 (Given - Provider: Fadia Gallo, RUBIO) sodium chloride 0.9% flush 0.5-20 mL 0.5-20 mL, intra-catheter, Every 8 hours scheduled, First dose on Sun08/09/22 at 2345, Flush volume based on line type and size. 0431 (Given - Provider: Reanna Howard, RUBIO)1528 (Not Given - Provider: Gabriella Camejo RN - Reason: IV Infusing)2208 (Given - Provider: Fadia Gallo, RUBIO) 0525 (Given - Provider: Fadia Gallo, RUBIO)1534 (Not Given - Provider: Jazmin Page RN - Reason: Order parameters not met)2036 (Given - Provider: Fadia Gallo RN) 0413 (Given - Provider: Fadia Gallo, RUBIO)1607 (Not Given - Provider: Sandrita Robles RN [...] (13 mEq). 0806 (Given - Provider: Sandrita Robles, RN)1242 (Given - Provider: Sandrita Robles, RUBIO) vancomycin 1,000 mg/200 mL in sodium chloride [...] Fadia Gallo, RUBIO)2010 (Stopped - Provider: Fadia Gallo, RUBIO) fentaNYL 2500 mcg/50 mL cassette/syringe (premix) (CANCELED) [...] Gabriella Camejo RN)0900 (Rate/Dose Verify - Provider: Nahed Kaplan, [facility])1000 (Rate/Dose Verify - Provider: Gabriella Camejo RN)1053 (New Bag - Provider: Gabriella Camejo RN)1100 (Rate/Dose Verify - Provider: Gabriella Camejo RN)1200 (Rate/Dose Verify - Provider: Gabriella Camejo, RUBIO)1215 (Stopped - Provider: Gabriella Camejo RN) PRN [...] Starting on Sun08/11/22 at 1019, Indications: Pain 2035 (Given - Provider: Fadia Gallo RN) oxyCODONE (ROXICODONE) tablet 5 mg 5 mg, oral, Every 4 hours PRN, 2nd line for pain, Starting on Sun08/12/22 at 0045, Indications: Pain 0124 (Given - Provider: Fadia Gallo RN)0542 (Given - Provider: Fadia Gallo RN)1404 (Given - Provider: Danita Marie RN) ramelteon (ROZEREM) tablet 8 mg 8 mg, oral, Nightly PRN, sleep, Starting on Nola 08/10/22 at 1951, Indications: Sleep-Onset Insomnia 2009 (Given - Provider: Fadia Gallo, RUBIO) 2034 (Given - Provider: Fadia Gallo RN) [...] baclofen (LIORESAL) tablet 10 mg 1 08/11/19 bisacodyL (DULCOLAX) suppository 10 mg 1 polyethylene [...] 1 08/10/2022 montelukast (SINGULAIR) tablet 10 mg 07/30 oxyCODONE (ROXICODONE) tablet 10 mg 1 08/10 potassium chloride 20 mEq/26 0 mL in sodium chloride 0.9% (premix) 20 mEq 1 08/10/2022 ramelteon (ROZEREM) tablet 8 mg 1 senna-docusate (PERICOLACE) 8.6-50 mg per tablet 1 tablet 1 08/10/2022 albuterol 2.5 mg/0.5 mL nebu lizer solution 2.5 mg 1 08/09/2022 Carrier Fluids for Secondary Infusion - 0.9% Sodium Chloride 2 08/09/2022 ceFAZolin (ANCEF) 1 gram/10 mL in sterile water (premix) 1,000 mg 1 08/09/2022 ceFAZolin (ANCEF) 2,000 mg/2 0 mL in sterile water (premix) 2,000 mg 08/09/2022 chlorhexidine (PERIDEX) 0.12 % solution 15 mL 08/09/2022 dexAMETHasone (DECADRON) 4 m g/mL injection 10 mg 08/09/2022 dexAMETHasone (DECADRON) 4 m g/mL injection 8 mg 08/09/2022 dextrose (D10W) 10% bolus 250 mL 2 08/09/19 dextrose 5% and Lactated Ringer's infusion 08/09/2022 dextrose 5% and sodium chlor semaj 0.9% infusion (premix) 08/09/2022 dextrose gel in packet 15 g 2 08/09/2022 diphenhydrAMINE (BENADRYL) i njection 12.5 mg 1 08/09/2022 fentaNYL (SUBLIMAZE) bolus from bag 50 mcg 2 08/09/2022 gabapentin (NEURONTIN) capsule 600 mg 05/2023 glucagon injection 1 mg 2 08/09/2022 [...] 1 08/09 Lactated Ringer's (LR) infusion 1 naloxone (NARCAN) 0.4 mg/mL injection 0.04-0.4 mg [...] u nit topical solution 1 08/09/2022 vancomycin (VANCOCIN) solution 1 08/09/2022 vancomycin [...] 08/09/2022 documented in this encounter Care Teams Coal Mill Operator Relationship Specialty Start Date End Date Rohan Rothman MD [address] [place] [address] PCP - General 07/20/20 05/12/24 Reanna Polanco RN Registered Nurse 07/07/19 documented as of this encounter
--- OUTSIDE RECORDS SUMMARY | 2024-07-28 01:06 | XMS_ITS | Encounter Summary ---
Author Organization [facility] Address [address] [place] [address] Phone Care Team Providers Care Tariff Clerk Name Role Phone Reanna Polanco RN [facility] Rohan Salvador MD Primary Care Provider Reason for Visit * Reason Onset Date Comments MRI appt 05/26/2022 Encounter Details Date Type Department Care Team (Late st Contact Info) Description 05/26/2022 Telephone [facility] Orthopaedic Surgery [facility] 6th [place] [address] [place] [address] Krystle Pradhan, [facility] MRI appt Social History Tobacco Use Types Packs/Day Years Used Date Smoking Tobacco: Former Cigarettes Smokeless Tobacco: Never Alcohol Use Standard Drinks/Week Comments No 0 (1 standard drink = 0.6 oz pur e alcohol) denies AUDIT-C Answer Date Recorded Q1: How often do you have a drink containing alcohol? Never 05/09/2022 Q2: How many drinks containi ng alcohol do you have on a typical day when you are drinking? Patient does not drink Frequency of Binge Drinking Not on file 04/29 Comments No Sex and Gender Information Value Date Recorded Sex Assigned at Not on file Legal Sex Female 2:03 AM BUSINESS OBJECTS Gender Identity Female 08/26/2020 6:26 AM BUSINESS OBJECTS Sexual Orientation Straight 08/26/2020 6: 26 AM BUSINESS OBJECTS documented as of this encounter Miscellaneous Notes * Telephone Encounter - Krystle Pradhan CMA - 05/26/2022 10:46 AM CDT Gave patient directions for her upcoming MRI prior to seeing Dr. Yu. Patient verbalizes understanding. documented in this encounter Plan of Treatment Not on file documented as of this encounter Goals Goal Patient Goal Type Associated Problems Recent Progress Patient-Stated? Author CCM Chronic Pain Care Plan Chronic Care Management Improving( 10:05 AM BUSINESS OBJECTS) No Bessy Mancuso RN Note: Problem: Chronic Pain Goals: 1. Minimize further functional decline 2. Maximize quality of life 3. Control pain Strategies: - Activity/exercise program recommendation - Conservative stepwise pain medicine strategy with multi-disciplinary approach - Recommend healthy lifestyle strategies and compensatory methods as needed documented as of this encounter Visit Diagnoses Not on filedocumented in this encounter Care Teams Tariff Clerk Relationship Specialty Start Date End Date Rohan Rothman MD [address] [place] [address] PCP - General 07/20/20 05/12/24 Reanna Polanco RN Registered Nurse 07/07/19 documented as of this encounter
--- OUTSIDE RECORDS SUMMARY | 2024-07-28 01:06 | XMS_ITS | Encounter Summary ---
Author Organization [facility] Healthcare Address [address] [place] [address] Care Team Providers Care Casing Cooker Name Role Phone Reanna Polanco RN [facility] Rohan Salvador MD Primary Care Provider Reason for Visit * Reason Onset Date Comments Test Results 10/19/2021 Outside xray res ults from 10.03.21 Encounter Details Date Type Department Care Team (Late st Contact Info) Description 10/19/2021 Telephone [facility] [place] [facility] [address] [facility] [address] [place], [place] [id number] Nancy Fernandez MD [address] [facility] [address] [facility] [id number] [place] [address] Test Results (Outside xray results from 10.03.21) Social History Tobacco Use Types Packs/Day Years Used Date Smoking Tobacco: Former Cigarettes Smokeless Tobacco: Never Alcohol Use Standard Drinks/Week Comments No 0 (1 standard drink = 0.6 oz pur e alcohol) denies AUDIT-C Answer Date Recorded Q1: How often do you have a drink containing alc ohol? Never 09/20/2021 Average Number of Drinks Not on file 022 Frequency of Binge Drinking Not on file 08/31 Comments No Sex and Gender Information Value Date Recorded Sex Assigned at Not on file Legal Sex Female 2:03 AM TREAD BUILDER Gender Identity Female 08/26/2020 6:26 AM TREAD BUILDER Sexual Orientation Straight 08/26/2020 6: 26 AM TREAD BUILDER documented as of this encounter Miscellaneous Notes * Telephone Encounter - Sandrita Mariano - 10/19/2021 9:22 AM CDT Outside xray results from 3, received and scanned to this call note. Sent to Dr. Fernandez for review documented in this encounter Plan of Treatment Not on file documented as of this encounter Goals Goal Patient Goal Type Associated Problems Recent Progress Patient-Stated? Author CCM Chronic Pain Care Plan Chronic Care Management Improving( 10:05 AM TREAD BUILDER) No Bessy Mancuso, RN Note: Problem: Chronic Pain Goals: 1. Minimize further functional decline 2. Maximize quality of life 3. Control pain Strategies: - Activity/exercise program recommendation - Conservative stepwise pain medicine strategy with multi-disciplinary approach - Recommend healthy lifestyle strategies and compensatory methods as needed documented as of this encounter Visit Diagnoses Not on filedocumented in this encounter Care Teams Casing Cooker Relationship Specialty Start Date End Date Rohan Rothman MD [address] [address] PCP - General 07/20/20 05/12/24 Reanna Polanco RN Registered Nurse 07/07/19 documented as of this encounter
--- OUTSIDE RECORDS SUMMARY | 2024-07-28 01:06 | XMS_ITS | Encounter Summary ---
Author Organization [facility] Healthcare Address [address] [facility] [place] [address] Care Team Providers Care Electrification Adviser Name Role Phone Reanna Polanco RN [facility] Rohan Salvador MD Primary Care Provider Encounter Details Date Type Department Care Team (Late st Contact Info) Description 02/02/2022 Orders Only [facility] [place] [facility] [address] [facility] [address] [place], [place] [id number] Maylin Tovar DO [address] [facility] [address] [place], [place] [id number] Other chronic pain (Primary Dx) Social History Tobacco Use Types [...] on file Legal Sex Female 2:03 AM ICE CREAM MAN Gender Identity Female 08/26/2020 6:26 AM ICE CREAM MAN Sexual Orientation Straight 08/26/2020 6: 26 AM ICE CREAM MAN documented as of this encounter Plan of Treatment Not on file documented as of this encounter Goals Goal Patient Goal Type Associated Problems Recent Progress Patient-Stated? Author CCM Chronic Pain Care Plan Chronic Care Management Improving( 10:05 AM ICE CREAM MAN) Bessy Gayle, RN Note: Problem: Chronic Pain Goals: 1. Minimize further functional decline 2. Maximize quality of life 3. Control pain Strategies: - Activity/exercise program recommendation - Conservative stepwise pain medicine strategy with multi-disciplinary approach - Recommend healthy lifestyle strategies and compensatory methods as needed documented as of this encounter Visit Diagnoses Diagnosis Other chronic pain- Primary documented in this encounter Care Teams Electrification Adviser Relationship Specialty Start Date End Date Rohan Rothman MD [address] [facility] [address] [place] [address] PCP - General 07/20/20 05/12/24 Reanna Polanco RN Registered Nurse 07/07/19 documented as of this encounter
--- OUTSIDE RECORDS SUMMARY | 2024-07-28 01:06 | XMS_ITS | Encounter Summary ---
Author Organization [facility] Address [address] [place] [address] Phone Care Team Providers Care Aerospace Stress Engineer Name Role Phone Reanna Polanco RN [facility] Rohan Salvador MD Primary Care Provider Reason for Referral * Diagnostic Imaging (Routine) - Closed Specialty Diagnoses / Procedures Referred By Contac t Referred To Contact Diagnoses Adolescent idiopathic scoliosis, unspecified spinal region Procedures XR Scoliosis Ap and Lateral Jared Yu MD [address] [place] [address] Phone: tel: fax: [facility] Referral ID Status Reason Start Date Expiration Date Visits Re quested Visits Authorized [id number] Closed 07/12/2022 08/11/2023 1 1 REGISTER REPAIRER Reason for Visit * Reason Comments New Patient * Consultation (Routine) - Closed Specialty Diagnoses / Procedures Referred By Contac t Referred To Contact Orthopedic Surgery Diagnoses Other secondary scoliosis, lumbar region Spine pain Cervical pain Tim Johnson NP Phone: tel: fax: Jared Yu MD [address] [facility] [place] [address] Phone: tel: fax: Referral ID Status Reason Start Date Expiration Date V isits Requested Visits Authorized [id number] Closed Specialty Services Required 05/09/2022 06/08/2023 5 5 Encounter Details Date Type Department Care Team (Late st Contact Info) Description 07/19/2022 2:00 PM FARE REGISTER REPAIRER Office Visit [facility] Orthopaedic Surgery [address] [facility] 6th [place] [address] [place] [address] Jared Yu MD [address] [facility] [place] [address] Adolescent idiopathic scoliosis, unspecified spinal region (Primary Dx); Other secondary scoliosis, lumbar region Social History Tobacco Use Types Packs/Day [...] on file Legal Sex Female 2:03 AM FARE REGISTER REPAIRER Gender Identity Female 08/26/2020 6:26 AM FARE REGISTER REPAIRER Sexual Orientation Straight 08/26/2020 6: 26 AM FARE REGISTER REPAIRER documented as of this encounter Last Filed Vital Signs Vital Sign Reading Time Taken Comments Blood Pressure - - Pulse - - Temperature - - Respiratory Rate - - Oxygen Saturation - - Inhaled Oxygen Concentration - - Weight 70.8 kg (156 lb) 07/19/2022 1:31 PM FARE REGISTER REPAIRER Height 169.5 cm (5' 6.75 ) 07/19/2022 1:31 PM CS T Body Mass Index 24.62 07/19/2022 1:31 PM FARE REGISTER REPAIRER documented in this encounter Progress Notes * Jared Yu MD - 07/19/2022 2:00 PM CST Images from the original note were not included. New Patient Visit Annette Santiago 1960 62 y.o. Chief Complaint: Patient is a 62 y.o. female with chief complaint of low back pain and deformity. HISTORY OF PRESENT ILLNESS: Annette Santiago is a 62-year-old female presenting to office today for evaluation of chronic low back pain and deformity. Reports that her pain is localized to the lower lumbar spine and feels like muscle spasms . It sometimes radiates down the hips, but never into the lower extremities. Standing for long periods of time makes it worse, and is better when she leans forward. There are some dayswhere her pain limits her function and ability to perform activities of daily living. She has no numbness or tingling in the extremities, no focal neurologic deficits including weakness. No bladder or bowel issues. She was diagnosed with scoliosis at the age of 13, but had no treatment. Currently, she takes NSAIDs, has been working with physical therapy and undergone scoliosis specific exercises,she has had injections, the last of which was ???years ago , acupuncture, and numerous medications including baclofen, Robaxin, and Barnhill. Of note, she is scheduled to have a anterior cervical decompression and fusion C3- C6 for cervical myelomalacia with Dr. Marion on August 09, 2022. Past Medical History: Diagnosis Date Anxiety Arthritis [...] right eye only HYSTEROSCOPY W/ ENDOMETRIAL ABLATION FL UNLISTED LAPAROSCOPY PROC,INTESTINE Intestinal Laparoscopy - (Added by TW Conv) SPINE SURGERY upcoming w/Dr. Marion (Not in a hospital admission) Allergies Allergen Reactions Decongestant Capsule Other (See comments) bladder spasms with decongestants Hay Fever And Allergy Relief Other (See comments) STUFFY HEAD, ACHINESS Social History Tobacco Use Smoking status: Former Packs/day: 1.00 Years: 5.00 Pack years: 5.00 Types: Cigarettes Start date: 11/27/1978 Quit date: 09/28/1983 Years since quittin.8 Smokeless tobacco: Never Substance and Sexual Activity Drug use: Not Currently Types: Marijuana Comment: Last used in college Sexual activity: Not Currently Partners: Male control/protection: [...] cerebrovascular accident - (Added by TW Conv) Celiac disease Son Family history of celiac disease - (Added by TW Conv) Heart disease Maternal Grandfather Allergy (severe) Son Arthritis Mother's Brother Depression Mother's Brother Arthritis Mother's Sister Current Outpatient Medications: alendronate (FOSAMAX) 70 mg tablet, Take 1 tablet by mouth once a week, Disp: , Rfl: ALPHA LIPOIC ACID ORAL, 550 mg daily, Disp: , Rfl: ARIPiprazole (ABILIFY) 15 mg tablet, Take 7.5 mg by mouth daily, Disp: , Rfl: ARIPiprazole (ABILIFY) 5 mg tablet, Take 5 mg by mouth daily, Disp: , Rfl: ascorbic acid (VITAMIN C) 1,000 mg tablet, Take 1,000 mg by mouth daily., Disp: , Rfl: baclofen (LIORESAL) 10 mg tablet, Take 2 tablets (20 mg total) by mouth 4 (four) times a day Takes 1-2 tabs QID, Disp: 240 tablet, Rfl: 11 CALCIUM CARBONATE-VITAMIN D3 ORAL, Calcium Carbonate 1,200 mg with Vitamin D 1,000 international units take 2 daily., Disp: , Rfl: cetirizine 10 mg capsule, Take by mouth, Disp: , Rfl: dilTIAZem SR (CARDIZEM SR) 60 mg 12 hr capsule, , Disp: , Rfl: DULoxetine DR (CYMBALTA) 60 mg capsule, Take 60 mg by mouth 2 (two) times a day, Disp: , Rfl: estradiol-norethindrone (ACTIVELLA) 1-0.5 mg per tablet, daily , Disp: , Rfl: famotidine (PEPCID) 10 mg tablet, Take 1 tablet (10 mg total) by mouth 2 (two) times a day, Disp: 60 tablet, Rfl: 11 HYDROcodone-acetaminophen (NORCO) 7.5-325 mg per tablet, Take 1 tablet by mouth 3 (three) times a day As need for pain, Disp: 90 tablet, Rfl: 0 magnesium oxide (MAG-OX) 500 mg (301.6 mg elemental) tablet, Take 500 mg by mouth daily, Disp: , Rfl: meloxicam (MOBIC) 7.5 mg tablet, Take 1 tablet (7.5 mg total) by mouth daily, Disp: 90 tablet, Rfl:3 methocarbamoL (ROBAXIN) 500 mg tablet, Take 2 tablets (1,000 mg total) by mouth 4 (four) times a day, Disp: 240 tablet, Rfl: 0 montelukast (SINGULAIR) 10 mg tablet, nightly , Disp: , Rfl: ruxolitinib (Opzelura) 1.5 % cream, , Disp: , Rfl: turmeric root extract 500 mg capsule, Take 1,500 mg by mouth daily , Disp: , Rfl: zolpidem (AMBIEN) 10 mg tablet, TAKE 1 TABLET AT BEDTIME NEEDED FOR SLEEP., Disp: , Rfl: acetaminophen ER (TYLENOL) 650 mg 8 hr tablet, Take 2 tablets by mouth 2 (two) times a day (Patientnot taking: Reported on 07/19/2022), Disp: , Rfl: omega 1-eqj-qwz-fish oil 1,000 mg (120 mg-180 mg) capsule, daily (Patient not taking: Reported on 07/19/2022), Disp: , Rfl: REVIEW OF SYSTEMS: Please see review of systems noted in the patient questionnaire. Reviewed with patient. VITALS: Vitals Ht 169.5 cm (5' 6.75 ) Wt 70.8 kg (156 lb) BMI 24.62 kg/m?? Body mass index is 24.62 kg/m??. PHYSICAL EXAMINATION: General appearance: In no acute distress, well developed, well nourished Gait: Nonantalgic, able to walk on her toes and heels. Some difficulty with tandem gait Head: Normocephalic, atraumatic Oral Cavity: Mucosa moist Skin: Warm and dry, normal turgor and color Vascular: Peripheral pulses palpable in both wrists and both feet Extremities: No cyanosis, clubbing or edema noted Musculoskeletal: Full range of motion, no pain Speech: Normal Involuntary movements: No tremors seen Spine: Right hip slightly higher than left, left truncal shift, left shoulder slightly higher than the right. Positive sagittal balance. She has a 20 degree left lumbar prominence, and a 2 degree right thoracic prominence on Obi's forward bending test. Upper Strength Deltoid Biceps Triceps Wrist Extension Wrist Flexion Manager Action Right 5 5 5 5 5 5 Left 5 5 5 5 5 5 Lower Strength Iliopsoas Quads Hamstrings Tib Ant Gastroc Soleus EHL Right 5 5 5 5 5 5 Left 5 5 5 5 5 5 Reflex Biceps Brachioradialis Triceps Right 1 1 1 Left 1 1 1 Reflex Patella Achilles Right 1 1 Left 1 1 No clonus Negative Karlo Sens: Sensation is grossly intact in the C5-T1 and L2-S1 nerve distributions bilaterally. REVIEW OF X-RAY/STUDIES: Standing scoliosis films taken today 07/19/2022 were ordered and independently reviewed by myself which demonstrates adult idiopathic scoliosis, with a 36 degree right main thoracic curve and a 35 degree left thoracolumbar curve. She is loss of lumbar lordosis, and SVA 57, and a pelvic incidence of 66 degrees. ASSESSMENT/PLAN: 62-year-old female presenting to the office today with adult idiopathic scoliosis. We discussed herdiagnosis and treatment options including nonoperative and operative management. Operative management would include a staged anterior-posterior procedure. She has pain that is described primarily as muscle spasms that sometimes affects her activities of daily living, but she is not at a point whereshe currently would like to elect for surgery. She will continue with nonoperative modalities such as physical therapy, stretching/yoga, NSAIDs, and other jror-ohz-bzuoqti medications. We did encourage her to start to wean her Barnhill. She will follow-up in 2 years PRN. FOLLOW-UP: 2 years PRN Les Ladd MD Resident, Department of Orthopaedic Surgery [facility] [place]/[facility] Dr. Les Ladd dictating using Fluency Direct. Dictation variances may occur. Addendum Patient has adult idiopathic scoliosis. She is managing well with nonoperative treatment. We will continue the nonoperative treatment. I told her that if her pain gets worse and she can not live withit anymore she will need a posterior spinal fusion of the thoracic and lumbar spine to the pelvis she may also need an anterior release in the low lumbar spine. Patient understood accepted all the questions were answered. MD Agustina Shelley Distinguished Professor of Orthopedic Surgery Professor Of Neurological Surgery Co-dental director/Adult Spinal Deformity Service REGISTER REPAIRER documented in this encounter Plan of Treatment Not on file documented as of this encounter Goals Goal Patient Goal Type Associated Problems Recent Progress Patient-Stated? Author CCM Chronic Pain Care Plan Chronic Care Management Improving( 10:05 AM FARE REGISTER REPAIRER) No Bessy Mancuso RN Note: Problem: Chronic Pain Goals: 1. Minimize further functional decline 2. Maximize quality of life 3. Control pain Strategies: - Activity/exercise program recommendation - Conservative stepwise pain medicine strategy with multi-disciplinary approach - Recommend healthy lifestyle strategies and compensatory methods as needed documented as of this encounter Results * XR Scoliosis Ap and Lateral (07/19/2022 1:04 PM FARE REGISTER REPAIRER) Anatomical Region Laterality Modality Spine N/A Computed Radiogr aphy 07/19/2022 1:47 PM FARE REGISTER REPAIRER Impressions 07/19/2022 2:04 PM FARE REGISTER REPAIRER 1. ??Mild to moderate rotary scoliosis of the thoracolumbar spine with mild anterior sagittal imbalance. 2. ??Moderate multilevel degenerative disc disease of the cervical spine, most pronounced from C3 to C6. Dictated by: Angelia Barajas MD The radiology attending physician has personally reviewed this study, and had reviewed and/or edited this written report and agrees with it. Electronically signed by: Devan Desouza MD Narrative 07/19/2022 2:04 PM FARE REGISTER REPAIRER EXAMINATION: XR SCOLIOSIS AP AND LATERAL HISTORY: Scoliosis FINDINGS: 4 AP, lateral, and stitched views using EOS technology are submitted for interpretation with comparison made to 05/09/2022. There is anterolisthesis of C3 on C4. ??There is moderate multilevel degenerative disc disease of the cervical spine, most pronounced at C3-C4, C4-C5 and C5-C6. There is mild to moderate scoliosis of the thoracolumbar spine with dextroscoliosis of the thoracic spine and rotatory levoscoliosis of the lumbar spine. Mild anterior sagittal imbalance. ??No significant coronal imbalance. No pelvic obliquity. There is thoracic and lumbar flat back deformity. Procedure Note Devan Desouza MD - 07/19/2022 EXAMINATION: XR SCOLIOSIS AP AND LATERAL HISTORY: Scoliosis FINDINGS: 4 AP, lateral, and stitched views using EOS technology are submitted for interpretation with comparison made to 05/09/2022. There is anterolisthesis of C3 on C4. There is moderate multilevel degenerative disc disease of the cervical spine, most pronounced at C3-C4, C4-C5 and C5-C6. There is mild to moderate scoliosis of the thoracolumbar spine with dextroscoliosis of the thoracic spine and rotatory levoscoliosis of the lumbar spine. Mild anterior sagittal imbalance. No significant coronal imbalance. No pelvic obliquity. There is thoracic and lumbar flat back deformity. IMPRESSION: 1. Mild to moderate rotary scoliosis of the thoracolumbar spine with mild anterior sagittal imbalance. 2. Moderate multilevel degenerative disc disease of the cervical spine, most pronounced from C3 to C6. Dictated by: Angelia Barajas MD The radiology attending physician has personally reviewed this study, and had reviewed and/or edited this written report and agrees with it. Electronically signed by: Devan Desouza MD Jared Marco Yu MD IMG XR PROCEDURES Final Result documented in this encounter Visit Diagnoses Diagnosis Adolescent idiopathic scoliosis, unspecified spinal region- Primary Other secondary scoliosis, lumbar region Adolescent idiopathic scoliosis, unspecified spinal region documented in this encounter Orders Outpatient Referral Count Last Ordered Date st Ordered Date AMB REFERRAL TO ORTHOPEDIC SPINE 1 07/19/20 22 documented in this encounter Care Teams Aerospace Stress Engineer Relationship Specialty Start Date End Date Rohan Rothman MD [address] [facility] [address] [place] [address] PCP - General 07/20/20 05/12/24 Reanna Polanco RN Registered Nurse 07/07/19 documented as of this encounter
--- OUTSIDE RECORDS SUMMARY | 2024-07-28 01:06 | XMS_ITS | Encounter Summary ---
Author Organization [facility] Healthcare Address [address] [place] [address] Care Team Providers Care Chicken And Fish Cleaner Name Role Phone Reanna Polanco RN [facility] Rohan Salvador MD Primary Care Provider Reason for Referral * Diagnostic Imaging (Routine) - Closed Specialty Diagnoses / Procedures Referred By Contac t Referred To Contact Diagnoses Cervicalgia Procedures X-ray cervical spine complete 4 or 5 vw Tim Johnson NP Phone: tel: fax: [address] [phone] Referral ID Status Reason Start Date Expiration Date Visits Re quested Visits Authorized [id number] Closed 05/09/2022 06/08/2023 1 1 Reason for Visit * Diagnostic Imaging (Routine) - Closed Specialty Diagnoses / Procedures Referred By Contcarol cloud Referred To Contact Diagnoses Cervicalgia Procedures X-ray cervical spine complete 4 or 5 vw Tim Johnson NP Phone: tel: fax: [address] [phone] Referral ID Status Reason Start Date Expiration Date Visits Re quested Visits Authorized [id number] Closed 05/09/2022 06/08/2023 1 1 Encounter Details Date Type Department Care Team (Latest Contact Info) Description 05/09/2022 1:45 PM CDT - 05/09/2022 11:59 PM CDT Hospital Encounter [facility] [address] [place] [address] Cervicalgia Discharge Disposition: Discharge to home or self [...] on file Legal Sex Female 2:03 AM QUALITY PROCESS LEAD Gender Identity Female 08/26/2020 6:26 AM QUALITY PROCESS LEAD Sexual Orientation Straight 08/26/2020 6: 26 AM QUALITY PROCESS LEAD documented as of this encounter Medications at [...] D 1,000 international units take [address] (CYMBALTA) 60 mg capsuleIndication s:Anxiety with Depression Take 1 capsule (60 mg total) by mouth 2 (two) times a day estradiol-norethi ndrone (ACTIVELLA) 1-0.5 mg per tablet Take 1 tablet by mouth nightly 11/14/2017 montelukast (SINGULAIR) 10 mg tabletIndications :Seasonal Allergic Rhinitis Take 1 tablet (10 mg total) by mouth nightly 04/13/2017 zolpidem (AMBIEN) 10 mg tabletIndications :Sleep-Onset Insomnia Take 1 tablet (10 mg total) by mouth nightly acetaminophen ER (TYLENOL) 650 mg 8 hr tabletIndications :Pain Take 1,300 mg by mouth 2 (two) times a day as needed 07/11/2020 08/12/19 23 alendronate (FOSAMAX) 70 mg tabletIndications :Post-Menopausal [...] 10 mg by mouth nightly 11/01/19 23 famotidine (PEPCID) 10 mg tablet Take 1 tablet (10 mg total) by mouth 2 (two) times a day 60 tablet 11 05/09/2022 07/18/20 22 HYDROcodone-aceta minophen (NORCO) 7.5-325 mg per tabletIndications :Pain Take 1 tablet by mouth 3 (three) times a day As need for pain 90 tablet 05/05/2022 05/23/20 22 magnesium oxide (MAG-OX) 500 mg (301.6 mg elemental) tablet Take 500 mg by mouth 2 (two) times a day 09/05/19 23 meloxicam (MOBIC) 7.5 mg tablet Take 1 tablet (7.5 mg total) by mouth daily 30 tablet 11 05/09/2022 05/18/20 22 methocarbamoL (ROBAXIN) 500 mg tablet Take 2 tablets (1,000 mg total) by mouth 4 (four) times a day as needed for muscle spasms 240 tablet 2 04/07/2022 04/11/20 23 metoprolol XL (TOPROL-XL) 25 mg extended release tablet Take 1 tablet by mouth daily 08/25/2021 11/07/20 22 omega 2-scz-btv-fish oil 1,000 mg (120 mg-180 mg) capsule Take 1 capsule by mouth every morning 09/05/19 23 ruxolitinib (Opzelura) 1.5 % cream Apply 1 application topically 2 (two) times a week Mon and Fri. 09/06/2021 08/12/19 23 turmeric root extract 500 mg capsuleIndication s:OTC Take 1,350 mg by mouth every morning 09/05/19 23 documented as of this encounter Discharge Disposition Disposition Code Departure Means Destination Discharge to home or self care documented in this encounter Plan of Treatment Not on file documented as of this encounter Goals Goal Patient Goal Type Associated Problems Recent Progress Patient-Stated? Author CCM Chronic Pain Care Plan Chronic Care Management Improving( 10:05 AM QUALITY PROCESS LEAD) Bessy Gayle RN Note: Problem: Chronic Pain Goals: 1. Minimize further functional decline 2. Maximize quality of life 3. Control pain Strategies: - Activity/exercise program recommendation - Conservative stepwise pain medicine strategy with multi-disciplinary approach - Recommend healthy lifestyle strategies and compensatory methods as needed documented as of this encounter Procedures Procedure Name Priority Date/Time Associated Diagnosis Comments XR SPINE CERVICAL COMPLETE 4 OR 5 VW Schedule Routine, Read Routine (OP Routine) 05/09/2022 1:57 PM CDT Cervicalgia documented in this encounter Results * X-ray cervical spine complete 4 or 5 vw (05/09/2022 1:57 PM CDT) Anatomical Region Laterality Modality Spine N/A Computed Radiogr aphy 05/09/2022 2:04 PM CDT Impressions 05/09/2022 2:04 PM CDT Severe multilevel degenerative disc disease of the cervical spine most pronounced at C4-C5 and C5-C6. Electronically signed by: Hector Killian MD Narrative 05/09/2022 2:04 PM CDT EXAMINATION: XR SPINE CERVICAL COMPLETE 4 OR 5 VW HISTORY: ??Cervical radiculopathy. COMPARISONS: None. FINDINGS: 4 views of the cervical spine were submitted for interpretation. No acute fracture or subluxation. Reversal of the normal cervical lordosis with focal kyphosis at C4. Mild anterolisthesis of C2 and C3. Severe multilevel degenerative disc disease, facet osteoarthritis and uncovertebral hypertrophy most pronounced at C4-C5 and C5-C6. Moderate multilevel osseous neural foraminal stenosis most pronounced at C4-C5. Prevertebral soft tissues are normal. Procedure Note Hector Killian MD - 05/09/2022 EXAMINATION: XR SPINE CERVICAL COMPLETE 4 OR 5 VW HISTORY: Cervical radiculopathy. COMPARISONS: None. FINDINGS: 4 views of the cervical spine were submitted for interpretation. No acute fracture or subluxation. Reversal of the normal cervical lordosis with focal kyphosis at C4. Mild anterolisthesis of C2 and C3. Severe multilevel degenerative disc disease, facet osteoarthritis and uncovertebral hypertrophy most pronounced at C4-C5 and C5-C6. Moderate multilevel osseous neural foraminal stenosis most pronounced at C4-C5. Prevertebral soft tissues are normal. IMPRESSION: Severe multilevel degenerative disc disease of the cervical spine most pronounced at C4-C5 and C5-C6. Electronically signed by: Hector Killian MD Tim Johnson COUNTER CLERK IMG XR PROCEDURES Final Result documented in this encounter Visit Diagnoses Diagnosis Cervicalgia documented in this encounter Care Teams Chicken And Fish Cleaner Relationship Specialty Start Date End Date Rohan Rothman MD [address] [facility] [address] [place] [address] PCP - General 07/20/20 05/12/24 Reanna Polanco RN Registered Nurse 07/07/19 documented as of this encounter
--- OUTSIDE RECORDS SUMMARY | 2024-07-28 01:06 | XMS_ITS | Encounter Summary ---
Author Organization [facility] Address [address] [place] [address] Phone Care Team Providers Care Vice President Payment Name Role Phone Reanna Polanco RN [facility] Rohan Salvador MD Primary Care Provider Encounter Details Date Type Department Care Team (Late st Contact Info) Description 06/13/2022 Telephone [facility] Orthopaedic Surgery [address] [facility] Advanced Medicine [address]th [place] [address] [place] [address] Olivier Marion MD [address] [facility] [address] [place], [place] [id number] Social History Tobacco Use Types Packs/Day Years [...] file Legal Sex Female 2:03 AM DIRECTOR LABOR STANDARDS Gender Identity Female 08/26/2020 6:26 AM DIRECTOR LABOR STANDARDS Sexual Orientation Straight 08/26/2020 6: 26 AM DIRECTOR LABOR STANDARDS documented as of this encounter Miscellaneous Notes * Telephone Encounter - Gris Kidd RN - 06/13/2022 9:02 AM CST Annette called in and states that she is ready to proceed with surgery. I let her know that the office not didn't state what the surgery procedure would be so I needed to talk to [facility]. He states that he would like her to f/u in the office for a re-eval to check her symptoms prior to deciding to proceed with surgery. Annette is in agreement with this and an appt was made for her. She will let me know if she needs anything prior to her appt. CTOR LABOR STANDARDS documented in this encounter Plan of Treatment Not on file documented as of this encounter Goals Goal Patient Goal Type Associated Problems Recent Progress Patient-Stated? Author CCM Chronic Pain Care Plan Chronic Care Management Improving( 10:05 AM DIRECTOR LABOR STANDARDS) No Bessy Mancuso RN Note: Problem: Chronic Pain Goals: 1. Minimize further functional decline 2. Maximize quality of life 3. Control pain Strategies: - Activity/exercise program recommendation - Conservative stepwise pain medicine strategy with multi-disciplinary approach - Recommend healthy lifestyle strategies and compensatory methods as needed documented as of this encounter Visit Diagnoses Not on filedocumented in this encounter Care Teams Vice President Payment Relationship Specialty Start Date End Date Rohan Rothman MD [address] [facility] [address] [place] [address] PCP - General 07/20/20 05/12/24 Reanna Polanco, RN Registered Nurse 07/07/19 documented as of this encounter
--- OUTSIDE RECORDS SUMMARY | 2024-07-28 01:06 | XMS_ITS | Encounter Summary ---
Author Organization [facility] Healthcare Address [address] [place] [address] Care Team Providers Care Drafter Landscape Name Role Phone Reanna Polanco RN [facility] Rohan Salvador MD Primary Care Provider Reason for Visit * Reason Comments Back Pain Shoulder Pain Neck Pain Encounter Details Date Type Department Care Team (Latest Contact Info) Description 02/06/2022 11:38 AM CDT - 02/06/2022 12:17 PM CDT Hospital Encounter [facility] [address] [facility] [address] [place] [address] Nancy Fernandez MD [address] [facility] [id number] [place], [place] [id number] Chronic use of opiate drug for therapeutic purpose (Primary Dx); Other specified dorsopathies, thoracolumbar region; Scoliosis of thoracolumbar spine, unspecified scoliosis type; Myalgia Discharge Disposition: Discharge to home or self [...] on file Legal Sex Female 2:03 AM COMMUNICATION CONSULTANT Gender Identity Female 08/26/2020 6:26 AM COMMUNICATION CONSULTANT Sexual Orientation Straight 08/26/2020 6: 26 AM COMMUNICATION CONSULTANT documented as of this encounter Last Filed Vital Signs Vital Sign Reading Time Taken Comments Blood Pressure 129/81 02/06/2022 11:50 AM CDT Pulse 87 02/06/2022 11:50 AM CDT Temperature 36.5 ??C (97.7 ??F) 02/06/2022 11:50 AM C DT Respiratory Rate 16 02/06/2022 11:50 AM CDT Oxygen Saturation 97% 02/06/2022 11:50 AM CDT Inhaled Oxygen Concentration - - Weight - - Height 172.7 cm (5' 8 ) 02/06/2022 11:50 AM CDT Body Mass Index - - documented in this encounter Discharge Instructions * Discharge Instructions* Karo Johnson, RUBIO - 02/06/2022 12:34 PM CDT Follow up in 3 months [facility] PATIENT EDUCATION POST-PROCEDURE INFORMATION [...] 4:00 p.m., you should call the hospital owner operator at and ask tospeak with the Pain Service doctor successfactors consultant. documented in this encounter Medications at Time [...] nightly Total 12.5 ayt HS 11/01/19 23 baclofen (LIORESAL) 10 mg tablet Take 2 tablets (20 mg total) by mouth 4 (four) times a day Takes 1-2 tabs QID 240 tablet 11 03/02/2021 04/07/20 22 cetirizine 10 mg capsuleIndication s:Seasonal Allergic Rhinitis Take 10 mg by mouth nightly 11/01/19 23 fexofenadine (EILEEN) 60 mg tablet Take 60 mg by mouth daily 05/09/20 22 HYDROcodone-aceta minophen (NORCO) 7.5-325 mg per tabletIndications :Pain Take 1 tablet by mouth 3 (three) times a day As need for pain 90 tablet 02/04/2022 02/29/20 22 ibuprofen (ibuprofen) 200 mg tab/cap Take by mouth every 6 (six) hours as needed for pain 05/09/20 22 magnesium oxide (MAG-OX) 500 mg (301.6 mg elemental) tablet Take 500 mg by mouth 2 (two) times a day 09/05/19 23 methocarbamoL (ROBAXIN) 500 mg tablet Take 2 tablets (1,000 mg total) by mouth 4 (four) times a day as needed for muscle spasms 720 tablet 1 01/10/2022 04/06/20 22 metoprolol XL (TOPROL-XL) 25 mg extended release tablet Take 1 tablet by mouth daily 08/25/2021 06/05/20 22 omega 5-blr-ehx-fish oil 1,000 mg (120 mg-180 mg) capsule [...] Progress Notes * Nancy Fernandez MD - 02/06/2022 12:15 PM CDT Patient Name: Annette Camarena : 1960 Today's Date: 02/06/2022 PCP: Rohan Rothman MD Referring: Notinfile Unknown Chief Complaint Patient presents with ??? Back Pain ??? Shoulder Pain ??? Neck Pain HPI Historical Info: ANNETTE CAMARENA is a patient initially seen in the Pain Center in July [address] Iglesias for her ongoing muscular pain in the neck, shoulder, upper back and low back. ? Past. current??meds: ?? - nortriptyline/amitriptyline- urinary retention. ?? - Lyrica did not work - Gabapentin caused side effects - T#3 - tramadol - cyclobenzaprine??- too drowsy - Lidoderm - meloxicam - Savella?? - excedrine migraine ([id number]) - baclofen - methocarbamol - duloxetine - hydrocodone/APAP - cbd cream 06/10/19: Has been taking meloxicam for a long time. ??Has started experiencing some stomach discomfort, which she relates to the meloxicam. ??Her PCP started her on prilosec and told her to take a month off of the meloxicam. ??She did this and stomach was better but fibromyalgia/ generalized body pain was worse. ??After a month she restarted the meloxicam and the stomach discomfort returned. ?? Physical therapy: she has done a lot of PT in the past with benefit. She enjoys being active and tries to maintain a regular exercise routine.?? -??Physical therapy notes??Fall 2018: still has daily LBP and pain between the shoulder blades, but it is more manageable. ??She has gone to 9 sessions with the plan to return to physical therapy after her trip. - PHYSICAL THERAPY fall 2019 - helped a lot, continues with HEP- manual therapy, TENS, stretching, strengthening, heat ?? Interventions: ?? - L4, 5, S1 RFA 2013 - sig benefit??for many years - L4, L4, S1 RFA Jul 2018- sig benefit for 9 mo - SI injection, bilateral 03/10/19- helped with pain in buttock and groin -??06/10/19: b/l SIJ -??06/30/19: Right L3-S1 RFA: no pain??nrelief -??07/07/19: Left L3-S1 RFA: no significant relief.? - 09/22/19: bilateral SI injection - some benefit ?? Imaging: Lumbar XR 11/18/20 - Moderate rotatory levoscoliosis of the thoracolumbar spine centered at L1-2 with flat back deformity.?? - Mild left lateral listhesis of L3 on L4. -??Lumbar spinal motion is limited. -??Severe degenerative disc disease is noted from L3 to L5. - Moderate to severe lumbar facet arthropathy. IMPRESSION: 1. ??Moderate, progressive rotatory thoracolumbar levoscoliosis and left lateral listhesis of L3 onL4 2. Progressive, severe degenerative disc disease from L3 to L5 ? Lumbar MRI 11/07/20 - Levocurvature of lumbar spine with mild lateral translation of L3 over L4 and L4 over L5.?? -??Kyphosis of lumbar spine centered around L3-L4 level, with mild anterolisthesis of L3 over L4. - Endplate degeneration along L3-L4 and L4-L5 levels. -??Disc desiccation throughout the lumbar spine, with marked disc height loss at L3-L4 and L4-L5 levels.?? -??L1-L2:??Left foraminal and extraforaminal disc protrusion.??Mild left neuroforaminal stenosis.?? -??L2-L3:?Disc bulge, asymmetric towards the left.??Mild bilateral facet arthropathy.?? -??L3-L4:??Uncovering of intervertebral disc with a small disc osteophyte complex.??Moderate bilateral facet arthropathy.??Mild to moderate right neuroforaminal stenosis.??Mild spinal canal stenosis -??L4-L5:?Disc osteophyte complex is present.??Moderate bilateral facet arthropathy.??Mild rightand moderate to severe left neuroforaminal stenosis.??Mild spinal canal stenosis -??L5-S1:?Mild bilateral facet arthropathy. IMPRESSION: Advanced degenerative disc disease at L3-L4 and L4-L5 levels with lateral listhesis at these levels, and anterolisthesis at L3-L4 level. ? INTERVAL HISTORY (02/06/2022): Annette Camarena returns to clinic today. She presents for ongoing management of chronic low back pain. Pain is at bilateral lumbar region. Radiation: None Numbness: None Weakness: None Pain Assessment Pain Score: 5 - Moderate pain Patient's Stated Pain Goal: 4 Pain Location: Back (Lumbar) (NECK, SHOULDERS) Pain Radiating Towards: pain whitmore snot radiate Pain Descriptors: Aching, Nagging, Tender (Gnawing) Pain Frequency: Constant/continuous The pain is described as continuous, cramping and gnawing. It rates 4/10 on the numeric pain scale;average 5/10. The pain increases with standing, bending, stooping, worse throughout the day and decreases with rest, medication. Her ADLs are difficult, but manageable on her own. Last visit 12/19/21 we did the following: Intervention: lumbar paravertebral TPI, next visit. Consider SPRINT Medication adjustments: continue current meds for now Referrals: none Current Pain meds: Pain Medications acetaminophen ER (TYLENOL) 650 mg 8 hr tablet Take 2 tablets by mouth 2 (two) times a day ARIPiprazole (ABILIFY) 15 mg tablet Take 7.5 mg by mouth daily baclofen (LIORESAL) 10 mg tablet Take 2 tablets (20 mg total) by mouth 4 (four) times a day Takes 1-[address] (CYMBALTA) 60 mg capsule Take 60 mg by mouth 2 (two) times a day HYDROcodone-acetaminophen (NORCO) 7.5-325 mg per tablet Take 1 tablet by mouth 3 (three) times a day As need for pain methocarbamoL (ROBAXIN) 500 mg tablet Take 2 tablets (1,000 mg total) by mouth 4 (four) times a dayas needed for muscle spasms ibuprofen (ibuprofen) 200 mg tab/cap Take by mouth every 6 (six) hours as needed for pain No results found. Review of Systems Review of Systems Review of Systems All other systems reviewed and are negative. appetite changes, weight changes, stomach upset, constipation, urinary changes, sexual function concerns, change in physical activity, sleep changes, mood changes and all other systems negative otherthan as documented in HPI Patient's Medications New Prescriptions No medications on file Previous Medications ACETAMINOPHEN ER (TYLENOL) 650 MG 8 HR TABLET Take 2 tablets by mouth 2 (two) times a day Authorizing Provider: Joaquín Beckman MD Notes: -- ALENDRONATE (FOSAMAX) 70 MG TABLET Take 1 tablet by mouth once a week Authorizing Provider: Joaquín Beckman MD Notes: -- ALPHA LIPOIC ACID 300 MG CAPSULE 300 mg daily Authorizing Provider: Joaquín Beckman MD Notes: -- ARIPIPRAZOLE (ABILIFY) 15 MG TABLET Take 7.5 mg by mouth daily Authorizing Provider: Joaquín Beckman MD Notes: -- ASCORBIC ACID (VITAMIN C) 1,000 MG TABLET Take 1,000 mg by mouth daily. Authorizing Provider: Joaquín Beckman MD Notes: -- BACLOFEN (LIORESAL) 10 MG TABLET Take 2 tablets (20 mg total) by mouth 4 (four) times a day Takes 1-2 tabs QID Authorizing Provider: Nancy Fernandez MD Notes: -- CALCIUM CARBONATE-VITAMIN D3 ORAL Calcium Carbonate 1,200 mg with Vitamin D 1,000 international units take 2 daily. Authorizing Provider: Joaquín Beckman MD Notes: -- CETIRIZINE 10 MG CAPSULE Take by mouth Authorizing Provider: Joaquín Beckman MD Notes: -- DULOXETINE DR (CYMBALTA) 60 MG CAPSULE Take 60 mg by mouth 2 (two) times a day Authorizing Provider: Joaquín Beckman MD Notes: -- ESTRADIOL-NORETHINDRONE (ACTIVELLA) 1-0.5 MG PER TABLET daily Authorizing Provider: Joaquín Beckman MD Notes: -- FEXOFENADINE (EILEEN) 60 MG TABLET Take 60 mg by mouth daily Authorizing Provider: Joaquín Beckman MD Notes: -- HYDROCODONE-ACETAMINOPHEN (NORCO) 7.5-325 MG PER TABLET Take 1 tablet by mouth 3 (three) times a day As need for pain Authorizing Provider: Nancy Fernandez MD Notes: -- IBUPROFEN (IBUPROFEN) 200 MG TAB/CAP Take by mouth every 6 (six) hours as needed for pain Authorizing Provider: Joaquín Beckman MD Notes: -- MAGNESIUM OXIDE (MAG-OX) 500 MG (301.6 MG ELEMENTAL) TABLET Take 500 mg by mouth daily Authorizing Provider: Joaquín Beckman MD Notes: -- METHOCARBAMOL (ROBAXIN) 500 MG TABLET Take 2 tablets (1,000 mg total) by mouth 4 (four) times a dayas needed for muscle spasms Authorizing Provider: Thao Montgomery DO Notes: -- METOPROLOL XL (TOPROL-XL) 25 MG EXTENDED RELEASE TABLET Take 1 tablet by mouth daily Authorizing Provider: Joaquín Beckman MD Notes: -- MONTELUKAST (SINGULAIR) 10 MG TABLET nightly Authorizing Provider: Joaquín Beckman MD Notes: -- OMEGA 9-QGR-ALL-FISH OIL 1,000 MG (120 MG-180 MG) CAPSULE daily Authorizing Provider: Joaquín Beckman MD Notes: -- RUXOLITINIB (OPZELURA) 1.5 % CREAM Authorizing Provider: Joaquín Beckman MD Notes: -- TURMERIC ROOT EXTRACT 500 MG CAPSULE Take 1,500 mg by mouth daily Authorizing Provider: Joaquín Beckman MD Notes: -- ZOLPIDEM (AMBIEN) 10 MG TABLET TAKE 1 TABLET AT BEDTIME NEEDED FOR SLEEP. Authorizing Provider: Joaquín Beckman MD Notes: -- Modified Medications No medications on file Discontinued Medications No medications on file Allergies Allergen Reactions ??? Decongestant Capsule Other (See comments) bladder spasms with decongestants Physical Exam Vitals: 02/06/22 1150 BP: 129/81 BP Location: Left arm Patient Position: Sitting Pulse: 87 Resp: 16 Temp: 97.7 ??F (36.5 ??C) SpO2: 97% Height: 172.7 cm (5' 8 ) Body mass index is 23.57 kg/m??. Physical Exam Constitutional: Appearance: Normal appearance. HENT: Head: Normocephalic and atraumatic. Cardiovascular: Rate and Rhythm: Normal rate. Pulmonary: Effort: Pulmonary effort is normal. Musculoskeletal: Cervical back: Normal range of motion. Comments: Bilateral spasm of lumbar paraspinal muscles noted Scoliosis thoracolumbar region Skin: General: Skin is warm and dry. [...] today's scanned PatientHealth Questionnaire and Office Note. Other specified dorsopathy, thoracolumbar spine Scoliosis Myalgia Chronic use of opioid for therapeutic purposes Plan 1. Interventions: Given signs and symptoms of ongoing muscle spasm, will plan on trigger point injections at today's visit. Risks/Benefits discussed with patient. Consent signed and in the chart. 2. 3. Medications: UDS done today, no changes to medication regimen The patient shows no signs of aberrant [...] the lowest dose necessary. Chronic Opioid Therapy 02/06/2022 ?Current analgesics: hydrocodone/APAP 7.5/325 TID??(sometimes bid, usually tid) Daily dose (MME): 22.5mg/day Benzo: no Meds locked up: She keeps in an unmarked box in the closet and is sure to put them out of sight if anyone is coming into her home (family members, cleaning crew, etc) Plan: continue current meds for now UDS:??11/30/20 - consistent and continue UDS 02/06/22- consistent with prescribed hydrocodone/APAP 3. Imaging: No further imaging needed at this current time. 4. Referral: No referrals needed at this current time. 5. Follow-up: 3mo Orders Placed This Encounter Procedures ??? Pain Management Profile Standing Status: Future Standing Expiration Date: 02/06/2023 Ivan Granados MD I provided this service on 02/06/2022 I saw and examed the patient by myself. I reviewed patient's chart, labs and image/result. I have reviewed the above evaluation and treatment plan withTrainee Physician Dr. Granados . I agree with the evaluation and treatment plan as above. Nancy Fernandez MD [facility] Department of Anesthesiology and Pain --- The visit is deemed to have MODERATE LEVEL of medical decision making. MDM type Number and complexity of problems addressed Amount/complexity of Data to be reviewed and analyzed Risk of complications/ morbidity of patient management Moderate 2 or more stable, chronic illnesses - Prescription drug management * Karo Johnson RN - 02/06/2022 12:15 PM CDT 02/06/22 12:21 PM Urine Drug Screen obtained: [x] [facility] lab Medication/Dose/Frequency: Hydrocodone 7.5/325 mg TID PRN Date and time of Last Dose: 1 Tablet at 0730 am Pt confirmed sticker information was correct. Pt witnessed urine being transferred into test tube from urine sample cup and patient sticker being applied to test tube. documented in this encounter Miscellaneous Notes * Op Note - Nancy Fernandez MD - 02/06/2022 12:15 PM CDT Procedure Note Attending Surgeon: Nancy Fernandez MD Surgical Assistants: Surgeon(s) and Role: * Shamar Granados MD Date of Surgery: 02/06/2022 [facility] TRIGGER POINT INJECTION PROCEDURE NOTE CHECK THE APPROPRIATE BOX AND FILL IN THE BLANK(S) NEEDED PRE-PROCEDURE CHECK LIST: 02/09/2022 8:32 AM SAFETY PRE-TREATMENT CHECKLIST COMPLETED Check the appropriate box [x] Patient Identification Verified [x] Consent Obtained [x] Relevant Images Obtained [x] H&P/Pre-Procedure Note Completed [...] [] Other : Total ml Injected : 12 Total # of Muscles Injected : 2, bilateral INJECTION SITES: Site R L Site R L Site R L Splenius Capitis [] [] Teres Major/Minor [] [] Iliopsoas [] [] Splenius Cervices [] [] Quadrates Lumborum [] [] Procerus [] [] Masseter [] [] Paravertebral, Cervical [] [] Corrugators [] [] Pterygoids Medial [] [] Paravertebral, Thoracic [x] [x] Frontalis [] [] Pterygoids Lateral [] [] [...] None Complications: None Nancy Fernandez MD Date: 02/09/2022 Time: 8:32 AM TEACHING ATTESTATION : I was present and directly participated in the entire procedure (including opening and closing). * Addendum Note - Nancy Fernandez MD - 02/06/2022 12:15 PM CDTEncounter addended by: Nancy Fernandez MD on: 02/13/2022 9:41 AM Actions taken: Specialty comments modified, Clinical Note Signed documented in this encounter Plan of Treatment Not on file documented as of this encounter Goals Goal Patient Goal Type Associated Problems Recent Progress Patient-Stated? Author CCM Chronic Pain Care Plan Chronic Care Management Improving( 10:05 AM COMMUNICATION CONSULTANT) Bessy Gayle, RUBIO Note: Problem: Chronic Pain Goals: 1. Minimize further functional decline 2. Maximize quality of life 3. Control pain Strategies: - Activity/exercise program recommendation - Conservative stepwise pain medicine strategy with multi-disciplinary approach - Recommend healthy lifestyle strategies and compensatory methods as needed documented as of this encounter Visit Diagnoses Diagnosis Chronic use of opiate drug for therapeutic purpose- Primary Other specified dorsopathies, thoracolumbar region Scoliosis of thoracolumbar spine, unspecified scoliosis type Myalgia Unspecified myalgia and myositis documented in this encounter Administered Medications Inactive Administered Medications - up to 3 most recent administrations Medication Order MAR Action Action Date Dose Rate Site bupivacaine (MARCAINE) 0.5 % (5 mg/mL) preservative free injection As needed, Starting on Sun02/06/22 at 1236, Intra-Op Given 02/06/2022 12:36 PM CDT 10 mL lidocaine PF (XYLOCAINE) 10 mg/mL (1 %) preservative free injection As needed, Starting on Sun02/06/22 at 1236, Intra-Op Given 02/06/2022 12:36 PM CDT 10 mL documented in this encounter Historical Medications * This list may reflect changes made after this encounter. cetirizine 10 mg capsuleIndication s:Seasonal Allergic Rhinitis Take 10 mg by mouth nightly 10/31/2022 added in this encounter Orders Discharge Count Last Ordered Date First Orde red Date DISCHARGE PATIENT 1 02/09/2022 documented in this encounter Care Teams Drafter Landscape Relationship Specialty Start Date End Date Rohan Rothman MD [address] [place] [address] PCP - General 07/20/20 05/12/24 Reanna Polanco, RN Registered Nurse 07/07/19 documented as of this encounter
--- OUTSIDE RECORDS SUMMARY | 2024-07-28 01:06 | XMS_ITS | Encounter Summary ---
Author Organization [facility] Healthcare Address [address] [place] [address] Care Team Providers Care Transportation Project Manager Name Role Phone Reanna Polanco RN [facility] Rohan Salvador MD Primary Care Provider Reason for Referral * Diagnostic Imaging (Routine) - Closed Specialty Diagnoses / Procedures Referred By Contac t Referred To Contact Diagnoses Adolescent idiopathic scoliosis, unspecified spinal region Procedures XR Scoliosis Ap and Lateral Jared Yu MD [address] [employer] [facility] [place] [address] Phone: tel: fax: [facility] Referral ID Status Reason Start Date Expiration Date Visits Re quested Visits Authorized [id number] Closed 07/12/2022 08/11/2023 1 1 R SITE ASSESSMENT SPECIALIST Reason for Visit * Diagnostic Imaging (Routine) - Closed Specialty Diagnoses / Procedures Referred By Contac t Referred To Contact Diagnoses Adolescent idiopathic scoliosis, unspecified spinal region Procedures XR Scoliosis Ap and Lateral Jared Yu MD [address] [employer] [place] [facility] [place] [address] Phone: tel: fax: [facility] Referral ID Status Reason Start Date Expiration Date Visits Re quested Visits Authorized [id number] Closed 07/12/2022 08/11/2023 1 1 Encounter Details Date Type Department Care Team (Latest Contact Info) Description 07/19/2022 12:50 PM SOLAR SITE ASSESSMENT SPECIALIST - 07/19/2022 11:59 PM SOLAR SITE ASSESSMENT SPECIALIST Hospital Encounter [facility] [address] [place] [address] Adolescent idiopathic scoliosis, unspecified spinal region Discharge Disposition: Discharge to home or [...] on file Legal Sex Female 2:03 AM SOLAR SITE ASSESSMENT SPECIALIST Gender Identity Female 08/26/2020 6:26 AM SOLAR SITE ASSESSMENT SPECIALIST Sexual Orientation Straight 08/26/2020 6: 26 AM SOLAR SITE ASSESSMENT SPECIALIST documented as of this encounter Medications at [...] (six) hours 30 tablet 08/12/2022 02/08/20 23 acetaminophen ER (TYLENOL) 650 mg 8 hr [...] muscle spasms 90 tablet 08/12/2022 09/05/19 23 dilTIAZem SR (CARDIZEM SR) 60 mg 12 hr capsuleIndication s:Fast heart rate Take 60 mg by mouth 2 (two) times a day 05/23/2022 08/07/19 23 famotidine (PEPCID) 10 mg tablet Take [...] day As need for pain 90 tablet 07/04/2022 07/27/20 22 magnesium oxide (MAG-OX) 500 mg (301.6 mg elemental) tablet Take 500 mg by mouth 2 (two) times a day 09/05/19 23 meloxicam (MOBIC) 7.5 mg tablet Take 1 tablet (7.5 mg total) by mouth daily 90 tablet 3 07/18/2022 08/12/19 23 methocarbamoL (ROBAXIN) 500 mg tablet Take 2 tablets (1,000 mg total) by mouth 4 (four) times a day as needed for muscle spasms 240 tablet 2 04/07/2022 04/11/20 23 methocarbamoL (ROBAXIN) 500 mg tablet Take 2 tablets (1,000 mg total) by mouth 4 (four) times a day 240 tablet 07/19/2022 08/12/19 23 methocarbamoL (ROBAXIN) 500 mg tablet Take 2 tablets (1,000 mg total) by mouth 4 (four) times a day for 14 days 112 tablet 07/25/2022 08/12/19 23 methocarbamoL 1,000 mg tablet Take 1,000 mg by mouth every 8 (eight) hours 90 tablet 08/12/2022 09/20/19 23 omega 8-pmr-usl-fish oil 1,000 mg (120 mg-180 mg) capsule [...] for sleep 60 tablet 08/12/2022 09/05/19 23 ruxolitinib (Opzelura) 1.5 % cream Apply 1 application topically 2 (two) times a week Mon and Fri. 09/06/2021 08/12/19 23 senna-docusate (PERICOLACE) 8.6-50 mg Take 1 [...] Plan Chronic Care Management Improving( 10:05 AM SOLAR SITE ASSESSMENT SPECIALIST) Bessy Gayle RN Note: Problem: Chronic Pain Goals: 1. Minimize further functional decline 2. Maximize quality of life 3. Control pain Strategies: - Activity/exercise program recommendation - Conservative stepwise pain medicine strategy with multi-disciplinary approach - Recommend healthy lifestyle strategies and compensatory methods as needed documented as of this encounter Procedures Procedure Name Priority Date/Time Associated Diagnosis Comments XR SCOLIOSIS AP LAT Schedule Routine, Read Routine (OP Routine) 07/19/2022 1:04 PM SOLAR SITE ASSESSMENT SPECIALIST Adolescent idiopathic scoliosis, unspecified spinal region documented in this encounter Results * XR Scoliosis Ap and Lateral (07/19/2022 1:04 PM SOLAR SITE ASSESSMENT SPECIALIST) Anatomical Region Laterality Modality Spine N/A Computed Radiogr aphy 07/19/2022 1:47 PM SOLAR SITE ASSESSMENT SPECIALIST Impressions 07/19/2022 2:04 PM SOLAR SITE ASSESSMENT SPECIALIST 1. ??Mild to moderate rotary scoliosis of [...] Devan Desouza MD Narrative 07/19/2022 2:04 PM SOLAR SITE ASSESSMENT SPECIALIST EXAMINATION: XR SCOLIOSIS AP AND LATERAL HISTORY: [...] Electronically signed by: Devan Desouza MD Jared Yu MD IMG XR PROCEDURES Final Result documented in this encounter Visit Diagnoses Diagnosis Adolescent idiopathic scoliosis, unspecified spinal region documented in this encounter Care Teams Transportation Project Manager Relationship Specialty Start Date End Date Rohan Rothman MD [address] [place] [address] PCP - General 07/20/20 05/12/24 Reanna Polanco, RN Registered Nurse 07/07/19 documented as of this encounter
--- OUTSIDE RECORDS SUMMARY | 2024-07-28 01:06 | XMS_ITS | Encounter Summary ---
Author Organization [facility] Healthcare Address [address] [place] [address] Care Team Providers Care Side Panel Hanger Name Role Phone Reanna Polanco RN [facility] Rohan Salvador MD Primary Care Provider Encounter Details Date Type Department Care Team (Latest Contact Info) Description 02/06/2022 12:18 PM CDT - 02/06/2022 11:59 PM CDT Hospital Encounter [address] [address] Chronic use of opiate drug [...] on file Legal Sex Female 2:03 AM COOK ROAST Gender Identity Female 08/26/2020 6:26 AM COOK ROAST Sexual Orientation Straight 08/26/2020 6: 26 AM COOK ROAST documented as of this encounter Medications at [...] 6 (six) hours as needed for pain 10/11/20 22 magnesium oxide (MAG-OX) 500 mg (301.6 [...] by mouth daily 08/25/2021 06/05/20 22 omega 6-hjp-uwa-fish oil 1,000 mg (120 mg-180 mg) capsule [...] Plan Chronic Care Management Improving( 10:05 AM COOK ROAST) Bessy Gayle, RN Note: Problem: Chronic Pain Goals: 1. Minimize further functional decline 2. Maximize quality of life 3. Control pain Strategies: - Activity/exercise program recommendation - Conservative stepwise pain medicine strategy with multi-disciplinary approach - Recommend healthy lifestyle strategies and compensatory methods as needed documented as of this encounter Procedures Procedure Name Priority Date/Time Associated Diagnosis Comments TARGET OPIOID SCREEN BY MEDICAL MANAGER Routine 02/06/2022 12:18 PM CDT Chronic use of opiate drug for therapeutic purpose HC DRG TEST DEF 1-7 CLASS Routine 02/06/2022 12:18 PM CDT Chronic use of opiate drug for therapeutic purpose DRUGS OF ABUSE SCREEN, URINE WITH REFLEX CONFIRMATION Routine 02/06/2022 12:18 PM CDT Chronic use of opiate drug for therapeutic purpose documented in this encounter Results * Targeted Opioid Screen, Ur (02/06/2022 12:18 PM CDT) [facility] Pain mgt 6-Acetylmorphine, Ur Not Detected CutOff 10 ng/mL [facility] Pain mgt Buprenorphine, Ur Not Detected CutOff 5 ng/mL [facility] Pain mgt Buprenorphine metabolite (Norbuprenorphine), Ur Not Detected CutOff 5 ng/mL [facility] Pain mgt Codeine, Ur Not Detected CutOff 25 ng/mL [facility] Pain mgt Hydrocodone, Ur Detected CutOff 25 ng/mL [facility] Pain mgt Hydromorphone, Ur Not Detected CutOff 25 ng/mL [facility] Pain mgt Methadone, Ur Not Detected CutOff 25 ng/mL [facility] Pain mgt Methadone Metabolite (EDDP), Ur Not Detected CutOff 25 ng/mL [facility] Pain mgt Morphine, Ur Not Detected CutOff 25 ng/mL [facility] Pain mgt Oxycodone, Ur Not Detected CutOff 25 ng/mL [facility] Pain mgt Oxymorphone, Ur Not Detected CutOff 25 ng/mL [facility] Pain mgt Tapentadol, Ur Not Detected CutOff 25 ng/mL [facility] Pain mgt Tramadol, Ur Not Detected CutOff 25 ng/mL [facility] Pain mgt Tramadol metabolite (O-desmethyltramado l), Ur Not Detected CutOff 25 ng/mL [facility] Comment: Interpretive Data This test only detects [...] developed and its performance characteristics determined by [facility]. It has not been cleared or approved by the U.S. Food and Drug Administration. Current interpretive data was last revised 19. Pain mgt Naloxone, ur Not Detected cutoff 20 ng/ml [facility] Urine 02/06/2022 12:1 8 PM CDT 02/06/2022 5:11 PM CDT us Ivan Granados MD LAB URINE ORDERABLES Final R esult [facility] Department [place] [address] * (ABNORMAL) Drugs of Abuse Screen, Urine with Reflex Confirmation (02/06/2022 12:18 PM CDT) Pathologist [facility] Amphetamine, ur Not Detected CutOff 500ng/mL [facility] Comment: Interpretive Data - Amphetamines: ??Samples containing greater than 500 ng/mL d-methamphetamine ??or other cross-reacting amphetamine compounds are reported as positive. ??Amphetamine immunoassays are subject to significant false positive rates due to cross-reactivity of non-amphetamine drugs. Current Interpretive Data was last reviewed 2018. Barbiturates, ur Not Detected CutOff 200ng/mL [facility] Comment: Interpretive Data - Barbiturates: ??Samples containing greater than 200 ng/mL secobarbital or other cross-reacting barbiturate compounds are reported as positive. ??False positive and false negative results are possible. Current Interpretive Data was last reviewed 2018. Benzodiazepines, ur Not Detected CutOff 100ng/mL [facility] Comment: Interpretive Data - Benzodiazepines: ??Samples containing greater than 100 ng/mL nordiazepam or other cross-reacting compounds are reported as positive. ?? False positive and false negative results are possible. ?? Current Interpretive Data was last reviewed 2018. Cannabinoids, ur Not Detected CutOff 50 ng/mL [facility] Cocaine, ur Not Detected CutOff 150ng/mL [facility] Comment: Interpretive Data - Cocaine: ??Samples containing greater than 150 ng/mL benzoylecgonine or other cross-reacting compounds are reported as positive. False positive and false negative results are possible. Current Interpretive Data was last reviewed 2018. Fentanyl, Ur Not Detected Cutoff 1 ng/mL [facility] Comment: Interpretive Data - Fentanyls: ??Samples containing greater than 1 ng/mL fentanyl or other cross-reacting fentanyl compounds are reported as detected. ??False positive and false negative results are possible. Current Interpretive Data was last reviewed 2019. Methadone, ur Not Detected CutOff 300ng/mL [facility] Comment: Interpretive Data - Methadone: ??Samples containing greater than 300 ng/mL d,l-methadone or other cross-reacting compounds are reported as positive. ??False positive and false negative results are possible. Current Interpretive Data was last reviewed 2018. Opiates, ur Detected(A) CutOff 300ng/mL [facility] Comment: Interpretive Data - Opiates: ??Samples containing greater than 300 ng/mL morphine or other cross-reacting compounds are reported as positive. ??False positive and false negative results are possible. Current Interpretive Data was last reviewed 2018. Oxycodone, ur Detected(A) CutOff 100ng/mL [facility] Comment: Interpretive Data - Oxycodone: ??Samples containing greater than 100 ng/mL oxycodone or other cross-reacting compounds are reported as positive. ??False positive and false negative results are possible. ?? Current Interpretive Data was last reviewed 2018. Phencyclidine, ur Not Detected CutOff 25 ng/mL [facility] Comment: Interpretive Data - Phencyclidine: ??Samples containing greater than 25 ng/mL phencyclidine or other cross-reacting compounds are reported as positive. ??False positive and false negative results are possible. ?? Current Interpretive Data was last reviewed 2018. Urine Creatinine 41 mg/dL [facility] Comment: Interpretive Data Urine Creatinine: < 10 mg/dL is extremely dilute = or > 10 but < 20 mg/dL is dilute = or > 20 mg/dL is normal Current Interpretive Data was last revised on 2017. Urine 02/06/2022 12:1 8 PM CDT 02/06/2022 5:11 PM CDT Narrative [facility] - 02/06/2022 6:08 PM CDT Drug of Abuse screening is performed by immunoassay for medical purposes only. ??This is not to be used for Pain Management purposes. ??If Detected, confirmation testing will be performed for Amphetamines, Cocaine, Fentanyl, Methadone, Opiates, Oxycodone or Phencyclidine. us Ivan Granados MD LAB URINE ORDERABLES Final R esult [facility] Department [place] [address] documented in this encounter Visit Diagnoses Diagnosis Chronic use of opiate drug for therapeutic purpose documented in this encounter Care Teams Side Panel Hanger Relationship Specialty Start Date End Date Rohan Rothman MD [address] [place] [address] PCP - General 07/20/20 05/12/24 Reanna Polanco RN Registered Nurse 07/07/19 documented as of this encounter
--- OUTSIDE RECORDS SUMMARY | 2024-07-28 01:06 | XMS_ITS | Encounter Summary ---
Author Organization [facility] Address [address] [place] [address] Phone Care Team Providers Care Cyber Security Consultant Name Role Phone Reanna Polanco RN [facility] Rohan Salvador MD Primary Care Provider Reason for Visit * Reason Onset Date Comments New pt appt 05/19/2022 Encounter Details Date Type Department Care Team (Late st Contact Info) Description 05/19/2022 Telephone [facility] Orthopaedic Surgery [facility] 6th [place] [address] [place] [address] Krystle Pradhan [facility] New pt appt Social History Tobacco Use Types Packs/Day [...] on file Legal Sex Female 2:03 AM SANITATION OFFICER Gender Identity Female 08/26/2020 6:26 AM SANITATION OFFICER Sexual Orientation Straight 08/26/2020 6: 26 AM SANITATION OFFICER documented as of this encounter Miscellaneous Notes * Telephone Encounter - Krystle Pradhan CMA - 05/19/2022 3:11 PM CDT Patient scheduled with Dr. Yu. New pt packet mailed. Patient verbalizes understanding. * Telephone Encounter - Krystle Pradhan CMA - 05/19/2022 1:43 PM CDT Reason for Appointment: concern for cervical myelopathy due to balance issues. Scoliosis; LBP is patients main concern. Referring Physician: Dr. Fernandez Insurance:[employer] Xrays: Cspine in [facility]. Will get EOS at appt MRI: Cervical scheduled 05/30 @ [facility] CT:no Injections:Multiple-in Epic-Have been helpful in the past Pt: Scoliosis PT-very helpful/Massage therapy Smoker: no Cardiac Disease: Tachycardia-takes beta chiquis Diabetes: no Pulmonary:no Ht/Wt:68in/167lb BMI:25.39 Litigation/WorkComp: no Medications:robaxin, baclofen, Hydrocodone, tylenol-Is helpful Prior Surgeries:no Recommended Surgery: EMG:no Dexa:Will bring to appt-recent Ambulatory:Ambulates w/o assistive devices Symptoms: The pain is described as penetrating, frequent, gnawing, aching, tender, and tiring-exhausting. The pain increases with cold, sitting, walking and standing and decreases with heat, pain medications muscle relaxants. Her ADLs are difficult, but manageable on her own. States she has difficulty with sleep due to pain and muscle spasms. Patient can be scheduled with Dr. Yu if she is ok with the wait for new patient appts. If not then I can offer her an appt with another one of our providers. Dr. Yu's first available will be 07/19 @ [facility]. Patient will call me back once she has her calendar available and I assist with getting her scheduled Patient verbalizes understanding. documented in this encounter Plan of Treatment Not on file documented as of this encounter Goals Goal Patient Goal Type Associated Problems Recent Progress Patient-Stated? Author CCM Chronic Pain Care Plan Chronic Care Management Improving( 10:05 AM SANITATION OFFICER) Bessy Gayle, RUBIO Note: Problem: Chronic Pain Goals: 1. Minimize further functional decline 2. Maximize quality of life 3. Control pain Strategies: - Activity/exercise program recommendation - Conservative stepwise pain medicine strategy with multi-disciplinary approach - Recommend healthy lifestyle strategies and compensatory methods as needed documented as of this encounter Visit Diagnoses Not on filedocumented in this encounter Care Teams Cyber Security Consultant Relationship Specialty Start Date End Date Rohan Rothman MD [address] [place] [id number] PCP - General 07/20/20 05/12/24 Reanna Polanco RN Registered Nurse 07/07/19 documented as of this encounter
--- OUTSIDE RECORDS SUMMARY | 2024-07-28 01:06 | XMS_ITS | Encounter Summary ---
Author Organization [facility] Healthcare Address [address] [place] [address] Care Team Providers Care Radioisotope Production Operator Name Role Phone Reanna Polanco RN [facility] Rohan Salvador MD Primary Care Provider Reason for Referral * MRI/CAT/PET Scan (Routine) - Closed Specialty Diagnoses / Procedures Referred By Hadley cloud Referred To Contact Radiology Diagnoses Cervicalgia Procedures MRI Cervical Spine WO Contrast Tim Johnson NP Phone: tel: fax: [address] [phone] Referral ID Status Reason Start Date Expiration Date Visits Re quested Visits Authorized [id number] Closed 05/10/2022 11/06/2022 1 1 Reason for Visit * MRI/CAT/PET Scan (Routine) - Closed Specialty Diagnoses / Procedures Referred By Hadley cloud Referred To Contact Radiology Diagnoses Cervicalgia Procedures MRI Cervical Spine WO Contrast Tim Johnson NP Phone: tel: fax: [address] [phone] Referral ID Status Reason Start Date Expiration Date Visits Re quested Visits Authorized [id number] Closed 05/10/2022 11/06/2022 1 1 Encounter Details Date Type Department Care Team (Latest Contact Info) Description 05/30/2022 1:06 PM CDT - 05/30/2022 11:59 PM CDT Hospital Encounter [facility] [address] [place] [address] Cervicalgia Discharge Disposition: Discharge to home or [...] on file Legal Sex Female 2:03 AM [employer] Gender Identity Female 08/26/2020 6:26 AM [employer] Sexual Orientation Straight 08/26/2020 6: 26 AM [employer] documented as of this encounter Medications at [...] 10 mg by mouth nightly 11/01/19 23 dilTIAZem (CARDIZEM) 30 mg tablet Take 30 mg by mouth 2 (two) times a day 05/15/2022 07/06/20 22 dilTIAZem SR (CARDIZEM SR) 60 mg 12 [...] day As need for pain 90 tablet 06/04/2022 06/25/20 22 magnesium oxide (MAG-OX) 500 mg (301.6 mg elemental) tablet Take 500 mg by mouth 2 (two) times a day 09/05/19 23 meloxicam (MOBIC) 7.5 mg tablet Take 1 tablet (7.5 mg total) by mouth daily 90 tablet 3 05/18/2022 12/20/20 22 methocarbamoL (ROBAXIN) 500 mg tablet Take 2 tablets (1,000 mg total) by mouth 4 (four) times a day as needed for muscle spasms 240 tablet 2 04/07/2022 04/11/20 23 metoprolol XL (TOPROL-XL) 25 mg extended release tablet Take 1 tablet by mouth daily 08/25/2021 06/05/20 22 omega 0-qfr-ypl-fish oil 1,000 mg (120 mg-180 mg) capsule [...] Plan Chronic Care Management Improving( 10:05 AM [employer]) Bessy Gayle, RUBIO Note: Problem: Chronic Pain Goals: 1. Minimize further functional decline 2. Maximize quality of life 3. Control pain Strategies: - Activity/exercise program recommendation - Conservative stepwise pain medicine strategy with multi-disciplinary approach - Recommend healthy lifestyle strategies and compensatory methods as needed documented as of this encounter Procedures Procedure Name Priority Date/Time Associated Diagnosis Comments MRI CERVICAL SPINE WO CONTRAST Routine 05/30/2022 1:43 PM CDT Cervicalgia documented in this encounter Results * MRI Cervical Spine WO Contrast (05/30/2022 1:43 PM CDT) Anatomical Region Laterality Modality Spine N/A Magnetic Resonan ce 05/30/2022 2:24 PM CDT Impressions 05/30/2022 2:33 PM CDT Progressive worsening of the now severe degenerative changes in the cervical spine as described in detail above with moderate spinal canal stenosis noted at C3-C4 and C4-C5. There is thinning of the cord and myelomalacia at C3-C4, new from 07/01/2008. Dictated by: Camilo Leary MD The radiology attending physician has personally reviewed this study, and had reviewed and/or edited this written report and agrees with it. Electronically signed by: Latricia Ruiz M.D. Narrative 05/30/2022 2:33 PM CDT EXAMINATION: Magnetic resonance imaging (MRI) of the cervical spine without contrast HISTORY: Chronic neck pain TECHNIQUE: Multiplanar multi-weighted MRI of the cervical spine was performed without intravenous contrast using the standard cervical spine protocol. COMPARISON: MRI from 07/01/2008 FINDINGS: Mild anterolisthesis of C3-C4 and retrolisthesis of C4-C5 and C5-C6. Worsening diC3-4 disk space collapse. . Edema present within the C2-C6 vertebral bodies, greatest in the C4 vertebral body.. No acute fracture is identified; however, if trauma is suspected, a CT scan would be a more sensitive examination for fractures. The craniocervical junction is normal. The visualized portions of the skull base and the posterior fossa are normal. T2 hyperintensity and cord thinning is noted within the spinal cord at C3-C4. Diffuse disc desiccation and height loss is present. Normal signal voids are present in the vertebral arteries. A 0.8 cm thyroid nodules present. Mucosal thickening in the sinuses is partially visualized. C2-C3: The disk is normal in configuration. There is moderate right and mild left facet arthropathy. There is moderate bilateral uncovertebral joint disease. There is moderate bilateral neuroforaminal stenosis. There is no spinal canal stenosis. C3-C4: ??Central disc protrusion and posterior disc osteophyte complex. There is severe left ??facet arthropathy. There is moderate bilateral uncovertebral joint disease. There is severe bilateral neuroforaminal stenosis. There is moderate spinal canal stenosis. C4-C5: ??Central disc protrusion and posterior disc osteophyte complex . There is severe right ??facet arthropathy. There is severe bilateral uncovertebral joint disease. There is severe bilateral neuroforaminal stenosis. There is moderate spinal canal stenosis. C5-C6: ??Central disc protrusion. There is mild bilateral facet arthropathy. There is moderate bilateral uncovertebral joint disease. There is moderate bilateral neuroforaminal stenosis. There is mild spinal canal stenosis. C6-C7: ??The disk is normal in configuration. There is mild bilateral facet arthropathy. There is mild bilateral uncovertebral joint disease. There is mild bilateral neuroforaminal stenosis. There is no spinal canal stenosis. C7-T1: The disk is normal in configuration. There is moderate bilateral facet arthropathy. There is no uncovertebral joint disease. There is no neuroforaminal stenosis. There is no spinal canal stenosis. Procedure Note Latricia Li MD - 05/30/2022 EXAMINATION: Magnetic resonance imaging (MRI) of the cervical spine without contrast HISTORY: Chronic neck pain TECHNIQUE: Multiplanar multi-weighted MRI of the cervical spine was performed without intravenous contrast using the standard cervical spine protocol. COMPARISON: MRI from 07/01/2008 FINDINGS: Mild anterolisthesis of C3-C4 and retrolisthesis of C4-C5 and C5-C6. Worsening diC3-4 disk space collapse. . Edema present within the C2-C6 vertebral bodies, greatest in the C4 vertebral body.. No acute fracture is identified; however, if trauma is suspected, a CT scan would be a more sensitive examination for fractures. The craniocervical junction is normal. The visualized portions of the skull base and the posterior fossa are normal. T2 hyperintensity and cord thinning is noted within the spinal cord at C3-C4. Diffuse disc desiccation and height loss is present. Normal signal voids are present in the vertebral arteries. A 0.8 cm thyroid nodules present. Mucosal thickening in the sinuses is partially visualized. C2-C3: The disk is normal in configuration. There is moderate right and mild left facet arthropathy. There is moderate bilateral uncovertebral joint disease. There is moderate bilateral neuroforaminal stenosis. There is no spinal canal stenosis. C3-C4: Central disc protrusion and posterior disc osteophyte complex. There is severe left facet arthropathy. There is moderate bilateral uncovertebral joint disease. There is severe bilateral neuroforaminal stenosis. There is moderate spinal canal stenosis. C4-C5: Central disc protrusion and posterior disc osteophyte complex . There is severe right facet arthropathy. There is severe bilateral uncovertebral joint disease. There is severe bilateral neuroforaminal stenosis. There is moderate spinal canal stenosis. C5-C6: Central disc protrusion. There is mild bilateral facet arthropathy. There is moderate bilateral uncovertebral joint disease. There is moderate bilateral neuroforaminal stenosis. There is mild spinal canal stenosis. C6-C7: The disk is normal in configuration. There is mild bilateral facet arthropathy. There is mild bilateral uncovertebral joint disease. There is mild bilateral neuroforaminal stenosis. There is no spinal canal stenosis. C7-T1: The disk is normal in configuration. There is moderate bilateral facet arthropathy. There is no uncovertebral joint disease. There is no neuroforaminal stenosis. There is no spinal canal stenosis. IMPRESSION: Progressive worsening of the now severe degenerative changes in the cervical spine as described in detail above with moderate spinal canal stenosis noted at C3-C4 and C4-C5. There is thinning of the cord and myelomalacia at C3-C4, new from 07/01/2008. Dictated by: Camilo Leary MD The radiology attending physician has personally reviewed this study, and had reviewed and/or edited this written report and agrees with it. Electronically signed by: Latricia Ruiz M.D. Tim Johnson OPERATIONS/DISPATCH IMG MRI PROCEDURES Leandra l Result documented in this encounter Visit Diagnoses Diagnosis Cervicalgia documented in this encounter Care Teams Radioisotope Production Operator Relationship Specialty Start Date End Date Rohan Rothman MD [address] [facility] [address] [place] [address] PCP - General 07/20/20 05/12/24 Reanna Polanco RN Registered Nurse 07/07/19 documented as of this encounter
--- OUTSIDE RECORDS SUMMARY | 2024-07-28 01:06 | XMS_ITS | Encounter Summary ---
Author Organization [facility] Healthcare Address [address] [place] [address] Care Team Providers Care Bottle Label Inspector Name Role Phone Reanna Polanco RN [facility] Rohan Salvador MD Primary Care Provider Reason for Visit * Reason Onset Date Comments ISSUE WITH EDS 10/06/2021 Encounter Details Date Type Department Care Team (Late st Contact Info) Description 10/06/2021 Telephone [facility] [address] [facility] [address] [place], [place] [id number] Nancy Fernandez MD [address] [facility] [address] [facility] [id number] [place], [place] [id number] ISSUE WITH EDS Social History Tobacco Use Types Packs/Day Years [...] on file Legal Sex Female 2:03 AM ELECTRON BEAM PHOTO MASK TECHNICIAN Gender Identity Female 08/26/2020 6:26 AM ELECTRON BEAM PHOTO MASK TECHNICIAN Sexual Orientation Straight 08/26/2020 6: 26 AM ELECTRON BEAM PHOTO MASK TECHNICIAN documented as of this encounter Miscellaneous Notes * Telephone Encounter - Karo Johnson RN - 10/06/2021 2:55 PM ELECTRON BEAM PHOTO MASK TECHNICIAN Pharmacy confirmed patient only picked up 30 tablets, tasked to Dr. Fernandez to refill the remaining 60 tablets. TRON BEAM PHOTO MASK TECHNICIAN * Telephone Encounter - Adamaris Lan RN - 10/06/2021 11:44 AM ELECTRON BEAM PHOTO MASK TECHNICIAN Sent portal message as well/duplicate TRON BEAM PHOTO MASK TECHNICIAN documented in this encounter Plan of Treatment Not on file documented as of this encounter Goals Goal Patient Goal Type Associated Problems Recent Progress Patient-Stated? Author CCM Chronic Pain Care Plan Chronic Care Management Improving( 10:05 AM ELECTRON BEAM PHOTO MASK TECHNICIAN) No Bessy Mancuso RN Note: Problem: Chronic Pain Goals: 1. Minimize further functional decline 2. Maximize quality of life 3. Control pain Strategies: - Activity/exercise program recommendation - Conservative stepwise pain medicine strategy with multi-disciplinary approach - Recommend healthy lifestyle strategies and compensatory methods as needed documented as of this encounter Visit Diagnoses Not on filedocumented in this encounter Care Teams Bottle Label Inspector Relationship Specialty Start Date End Date Rohan Rothman MD [address] [facility] [address] [place] [address] PCP - General 07/20/20 05/12/24 Reanna Polanco RN Registered Nurse 07/07/19 documented as of this encounter
--- OUTSIDE RECORDS SUMMARY | 2024-07-28 01:06 | XMS_ITS | Encounter Summary ---
Author Organization [facility] Healthcare Address [address] [place] [address] Care Team Providers Care Supplier Manager Name Role Phone Reanna Polanco RN [facility] Rohan Salvador MD Primary Care Provider Reason for Referral * Diagnostic Imaging (Routine) - Closed Specialty Diagnoses / Procedures Referred By Contac t Referred To Contact Diagnoses Spinal stenosis in cervical region Cervical spondylosis with myelopathy Procedures XR Spine Cervical W Flexion And Extension 4 or 5 Views Olivier Marion MD [address] [employer] [address] [place] [address] Phone: tel: fax: [facility] Referral ID Status Reason Start Date Expiration Date Visits Re quested Visits Authorized [id number] Closed 07/17/2022 08/16/2023 1 1 ERMAN Reason for Visit * Diagnostic Imaging (Routine) - Closed Specialty Diagnoses / Procedures Referred By Contac t Referred To Contact Diagnoses Spinal stenosis in cervical region Cervical spondylosis with myelopathy Procedures XR Spine Cervical W Flexion And Extension 4 or 5 Views Olivier Marion MD [address] [employer] [address] [address] Phone: tel: fax: [facility] Referral ID Status Reason Start Date Expiration Date Visits Re quested Visits Authorized [id number] Closed 07/17/2022 08/16/2023 1 1 Encounter Details Date Type Department Care Team (Latest Contact Info) Description 07/20/2022 10:30 AM JACKERMAN - 07/20/2022 11:59 PM JACKERMAN Hospital Encounter [facility] [address] [place] [address] Spinal stenosis in cervical region; Cervical spondylosis with myelopathy Discharge Disposition: Discharge to home or [...] on file Legal Sex Female 2:03 AM JACKERMAN Gender Identity Female 08/26/2020 6:26 AM JACKERMAN Sexual Orientation Straight 08/26/2020 6: 26 AM JACKERMAN documented as of this encounter Medications at [...] hours 90 tablet 08/12/2022 09/20/19 23 omega [id number]-wwc-alo-fish oil 1,000 mg (120 mg-180 mg) capsule [...] Plan Chronic Care Management Improving( 10:05 AM JACKERMAN) No Bessy Mancuso, RUBIO Note: Problem: Chronic [...] VIEWS Schedule Routine, Read Routine (OP Routine) 07/20/2022 10:42 AM JACKERMAN Spinal stenosis in cervical region Cervical spondylosis with myelopathy documented in this encounter Results * XR Spine Cervical W Flexion And Extension 4 or 5 Views (07/20/2022 10:42 AM JACKERMAN) Anatomical Region Laterality Modality Spine N/A Computed Radiogr aphy 07/20/2022 10:4 9 AM JACKERMAN Impressions 07/20/2022 10:49 AM JACKERMAN Unchanged severe degenerative disc disease at C3-C6. Electronically signed by: Cheng Negron MD Narrative 07/20/2022 10:49 AM JACKERMAN EXAMINATION: XR SPINE CERVICAL W FLEXION AND EXTENSION 4 OR 5 VIEWS HISTORY: Neck pain, cervical spondylosis FINDINGS: 4 views of the cervical spine are compared to the examination dated 05/09/2022. There is unchanged rightward curvature of the cervical spine. Exaggerated upper cervical kyphosis is again noted. ??There is minimal anterolisthesis of C2 on C3. ??Mild anterolisthesis of C3 on C4. ??Mild retrolisthesis of C4 on C5. ??The levels of anterolisthesis slightly increase with flexion and slightly decreases with extension. ??The level of retrolisthesis improves with flexion and increases with extension. ??No fracture. ??No prevertebral soft tissue swelling. Unchanged severe degenerative disc disease at C3-C6. ??Moderate osseous central canal stenosis at C4-C5. ??Moderate multilevel facet osteoarthritis throughout the cervical spine. ??Moderate to severe multilevel uncovertebral osteoarthritis. ??Multiple dental restorations. Procedure Note Cheng Negron MD - 07/20/2022 EXAMINATION: XR SPINE CERVICAL W FLEXION AND EXTENSION 4 OR 5 VIEWS HISTORY: Neck pain, cervical spondylosis FINDINGS: 4 views of the cervical spine are compared to the examination dated 05/09/2022. There is unchanged rightward curvature of the cervical spine. Exaggerated upper cervical kyphosis is again noted. There is minimal anterolisthesis of C2 on C3. Mild anterolisthesis of C3 on C4. Mild retrolisthesis of C4 on C5. The levels of anterolisthesis slightly increase with flexion and slightly decreases with extension. The level of retrolisthesis improves with flexion and increases with extension. No fracture. No prevertebral soft tissue swelling. Unchanged severe degenerative disc disease at C3-C6. Moderate osseous central canal stenosis at C4-C5. Moderate multilevel facet osteoarthritis throughout the cervical spine. Moderate to severe multilevel uncovertebral osteoarthritis. Multiple dental restorations. IMPRESSION: Unchanged severe degenerative disc disease at C3-C6. Electronically signed by: Cheng Negron MD Olivier Marion MD IMG XR PROCEDURES Final Re sult documented in this encounter Visit Diagnoses Diagnosis Spinal stenosis in cervical region Cervical spondylosis with myelopathy documented in this encounter Care Teams Supplier Manager Relationship Specialty Start Date End Date Rohan Rothman MD [address] [facility] [address] [place] [address] PCP - General 07/20/20 05/12/24 Reanna Polanco, RN Registered Nurse 07/07/19 documented as of this encounter
--- OUTSIDE RECORDS SUMMARY | 2024-07-28 01:06 | XMS_ITS | Encounter Summary ---
Author Organization [facility] Address [address] [place] [address] Phone Care Team Providers Care Preschool Head Teacher Name Role Phone Reanna Polanco RN [facility] Rohan Salvador MD Primary Care Provider Reason for Referral * MRI/CAT/PET Scan (Routine) - Closed Specialty Diagnoses / Procedures Referred By Contac t Referred To Contact Radiology Diagnoses Spinal stenosis in cervical region Cervical spondylosis with myelopathy Procedures CT Cervical Spine WO Contrast Olivier Marion MD [address] [facility] [id number] [place] [address] Phone: tel: fax: [facility] [address] [place] [address] Referral ID Status Reason Start Date Expiration Date Visits Re quested Visits Authorized [id number] Closed 07/07/2022 08/06/2023 1 1 OR PHYSICIAN Reason for Visit * Reason Comments Follow-up * Consultation (Routine) - Closed Specialty Diagnoses / Procedures Referred By Contac t Referred To Contact Orthopedic Surgery Diagnoses Other secondary scoliosis, lumbar region Spine pain Cervical pain Tim Johnson NP Phone: tel: fax: Jared Yu MD [address] [place] [address] Phone: tel: fax: Referral ID Status Reason Start Date Expiration Date V isits Requested Visits Authorized [id number] Closed Specialty Services Required 05/09/2022 06/08/2023 5 5 Encounter Details Date Type Department Care Team (Late st Contact Info) Description 07/06/2022 3:20 PM SENIOR PHYSICIAN Office Visit [facility] Orthopaedic Surgery [address] [facility] [address] [place] [address] [place] [address] Olivier Marion MD [address] [place] [address] Spinal stenosis in cervical region (Primary Dx); Cervical spondylosis with myelopathy Social History Tobacco [...] on file Legal Sex Female 2:03 AM SENIOR PHYSICIAN Gender Identity Female 08/26/2020 6:26 AM SENIOR PHYSICIAN Sexual Orientation Straight 08/26/2020 6: 26 AM SENIOR PHYSICIAN documented as of this encounter Progress Notes * Olivier Marion MD - 07/06/2022 3:20 PM CST Established patient visit History of Present Illness: Annette Santiago is a 62 y.o. female [...] Physical Therapy: Yes (for lumbar spine) Prior home day care provider: No Prior Accupuncture: No Past Medical History: has a past medical history of Anxiety, Arthritis, Back pain, Chronic pain, Chronic pain, Depression, Fibromyalgia, Fibromyalgia, primary, GERD (gastroesophageal reflux disease), Low back pain, Low back pain, Migraines, Neck pain, Osteoporosis, Personal history of other diseases of the musculoskeletal system and connective tissue, Tachycardia, and Urinary tract infection. Allergy: Decongestant capsule Past Surgical History: Past Surgical History: Procedure Laterality Date HYSTEROSCOPY W/ ENDOMETRIAL ABLATION IN UNLISTED LAPAROSCOPY PROC,INTESTINE Intestinal Laparoscopy - (Added by TW Conv) Social History: Social History Tobacco Use Smoking status: Former Types: Cigarettes Smokeless tobacco: Never Substance and Sexual Activity Drug use: Yes Comment: Using CBD oil and cream. Sexual activity: Defer Alcohol Use: Not At Risk Frequency of Alcohol Consumption: Never Average Number of Drinks: Patient does not drink Frequency of Binge Drinking: Not on file Family History: Family History Problem Relation Age of Onset Hypertension Mother Arthritis Mother Heart failure Mother Family history of congestive heart failure - (Added by TW Conv) Kidney disease Father Family history of kidney disease - (Added by TW Conv) Stroke Father Family history of cerebrovascular accident - (Added by TW Conv) Celiac disease Son Family history of celiac disease - (Added by TW Conv) Medication: Current Outpatient Medications Medication Sig Dispense Refill acetaminophen ER (TYLENOL) 650 mg 8 hr tablet Take 2 tablets by mouth 2 (two) times a day alendronate (FOSAMAX) 70 mg tablet Take 1 tablet by mouth once a week alpha lipoic acid 300 mg capsule 300 mg daily ARIPiprazole (ABILIFY) 15 mg tablet Take 7.5 mg by mouth daily ARIPiprazole (ABILIFY) 5 mg tablet Take 5 mg by mouth daily ascorbic acid (VITAMIN C) 1,000 mg tablet Take 1,000 mg by mouth daily. baclofen (LIORESAL) 10 mg tablet Take 2 tablets (20 mg total) by mouth 4 (four) times a day Takes 1-2 tabs QID 240 tablet 11 CALCIUM CARBONATE-VITAMIN D3 ORAL Calcium Carbonate 1,200 mg with Vitamin D 1,000 international units take 2 daily. cetirizine 10 mg capsule Take by mouth dilTIAZem SR (CARDIZEM SR) 60 mg [address] (CYMBALTA) 60 mg capsule Take 60 mg by mouth 2 (two) times a day estradiol-norethindrone (ACTIVELLA) 1-0.5 mg per tablet daily famotidine (PEPCID) 10 mg tablet Take 1 tablet (10 mg total) by mouth 2 (two) times a day 60 HYDROcodone-acetaminophen (NORCO) 7.5-325 mg per tablet Take 1 tablet by mouth 3 (three) times a day As need for pain 90 tablet 0 magnesium oxide (MAG-OX) 500 mg (301.6 mg elemental) tablet Take 500 mg by mouth daily meloxicam (MOBIC) 7.5 mg tablet Take 1 tablet (7.5 mg total) by mouth daily 90 tablet 3 methocarbamoL (ROBAXIN) 500 mg tablet Take 2 tablets (1,000 mg total) by mouth 4 (four) times a dayas needed for muscle spasms 240 tablet 2 montelukast (SINGULAIR) 10 mg tablet nightly omega 2-wqt-scq-fish oil 1,000 mg (120 mg-180 mg) capsule daily ruxolitinib (Opzelura) 1.5 % cream turmeric root extract 500 mg capsule Take 1,500 mg by mouth daily zolpidem (AMBIEN) 10 mg tablet TAKE 1 TABLET AT BEDTIME NEEDED FOR SLEEP. No current facility-administered medications for this visit. [...] intact Motor: Deltoid Biceps Triceps WE [facility] Dental Ceramist Assistant Right 5 5 5 5 5 5 Left 5 5 5 5 5 5 IP Quadriceps Hamstrings TA EHL GS Right 5 5 5 5 5 5 Left 5 5 5 5 5 5 Sensory: reduced light touch sensation, location: left C6-C8 DTR: B BR T Patella Achilles Right 2/4 2/4 2/4 2/4 2/4 Left 3/4 3/4 3/4 2/ 2/4 Spurling Sign: Normal Bilaterally Babinski's Sign: Negative Bilaterally Mathew's Sign: Positive on left Clonus: Negative bilateral Tandem Gait negative Rhomberg negative Reflex R bicep and BR 2+, left bicep and BR 3+ R patella and achilles 2+, left patella and achilles 3+ Radiology: Previous imaging reviewed independently Conventional Radiographs: AP lateral flexion extension oblique cervical radiographs were taken 05/09/2022 at [facility]. I personally reviewed these films which demonstrated significant degenerative spondylosis at C3-C6 with loss of cervical lordosis, anterolisthesis of C3 on C4. MRI: Cervical MRI performed on 05/30/2022 at [facility] was personally reviewed by me and redemonstrates a cervical spine as moderate spinal canal stenosis noted at C3-C4 and C4-C5. There is thinning of thecord and myelomalacia at C3-C4 I personally reviewed the images. PROMIS PROMIS PROMIS Bank V1.0 Anxiety: 47.9 PROMIS Bank V1.0 Depression: 45.8 PROMIS Bank V1.1 Pain Interference: 70.5 [facility] [place] Question 1: 2 [facility] [place] Question 2: 2 PROMIS Bank V2.0 Physical Function: 28.8 Jesús Mathis M.D. Orthopaedic Surgery - Spine Division [facility] in [facility] I have seen and examined the patient on 07/06/2022. I agree with the findings and plan of care as documented in the resident's/fellow's note.. Assessment Annette Santiago is a 62 y.o. [...] as epidural injections 3. Surgical intervention Plan At this point since she feels that certain things like handwritting are getting worse in addition to her LUE pain she has thoroughly though about it and decided to proceed with surgery Plan for C3-4 C4-5 and possible C5-[address] of her C-spine and in our next follow-up prior to surgery will obtian new flex extXR C-spine The patients questions were answered in detail ____ Olivier Marion MD OR PHYSICIAN documented in this encounter Plan of Treatment Not on file documented as of this encounter Goals Goal Patient Goal Type Associated Problems Recent Progress Patient-Stated? Author CCM Chronic Pain Care Plan Chronic Care Management Improving( 10:05 AM SENIOR PHYSICIAN) No Bessy Mancuso RN Note: Problem: Chronic Pain Goals: 1. Minimize further functional decline 2. Maximize quality of life 3. Control pain Strategies: - Activity/exercise program recommendation - Conservative stepwise pain medicine strategy with multi-disciplinary approach - Recommend healthy lifestyle strategies and compensatory methods as needed documented as of this encounter Results * CT Cervical Spine WO Contrast (07/20/2022 8:22 AM SENIOR PHYSICIAN) Anatomical Region Laterality Modality Spine N/A Computed Tomogra phy 07/20/2022 9:26 AM SENIOR PHYSICIAN Impressions 07/20/2022 10:00 AM SENIOR PHYSICIAN 1. ??Cervical spine CT obtained for treatment planning purposes. 2. ??Degenerative changes in the cervical spine not significantly changed as compared to prior MRI. ??Severe bilateral neuroforaminal stenosis at C3-C4 predominantly on the basis of facet and uncovertebral joint osteoarthritis. ??Severe right neuroforaminal stenosis and moderate to severe spinal canal stenosis at C4-C5 predominantly on the basis of facet and uncovertebral joint osteoarthritis. 3. ??Interlobular septal thickening of the imaged lungs consistent with mild pulmonary interstitial edema. Dictated by: Clay Preston MD The radiology attending physician has personally reviewed this study, and had reviewed and/or edited this written report and agrees with it. Electronically signed by: Ady Barraza M.D, PHD Narrative 07/20/2022 10:00 AM SENIOR PHYSICIAN EXAMINATION: CT of the cervical spine without contrast HISTORY: Cervical stenosis and cervical myelopathy. ??Cervical spine CT obtained for treatment planning purposes. TECHNIQUE: CT of the cervical spine was performed according to standard protocol without intravenous contrast. Contrast Information: 0 mL Optiray-350 COMPARISON: Cervical spine MRI 05/30/2022. FINDINGS: There is mild reversal of the cervical lordosis. ??Trace anterolisthesis of C2 on C3, mild anterolisthesis of C3 on C4. ??Mild retrolisthesis of C4 on C5 and C5 on C6. There is no acute fracture. Degenerative height loss of the C3, C4 and C5 vertebral bodies with subcortical cystic change, sclerosis and osteophytes. Multilevel disc height loss/degeneration most pronounced at C3-C4.. The craniocervical junction is normal. Limited views of the skull base appear normal. 8 mm left thyroid lobe nodule requires no additional dedicated follow up given small size. ??Interlobular septal thickening of the imaged lungs consistent with mild pulmonary interstitial edema. C2-C3: Slight posterior disc uncovering. There is moderate right and mild left facet arthropathy. There is mild bilateral uncovertebral joint disease. There is mild bilateral neuroforaminal stenosis. There is no spinal canal stenosis. C3-C4: ??Diffuse disc bulge with superimposed central protrusion. Posterior disc space uncovering. There is severe left facet arthropathy. There is moderate bilateral uncovertebral joint disease. There is severe bilateral neuroforaminal stenosis. There is moderate spinal canal stenosis. C4-C5: ??Moderate diffuse disc bulge. There is severe right facet arthropathy. There is moderate bilateral uncovertebral joint disease. There is severe right and mild left neuroforaminal stenosis. There is moderate to severe spinal canal stenosis with cord contour deformity spinal canal stenosis. C5-C6: ??Diffuse disc bulge with superimposed central protrusion. There is mild bilateral facet arthropathy. There is moderate bilateral uncovertebral joint disease. There is moderate bilateral neuroforaminal stenosis. There is moderate spinal canal stenosis. C6-C7: ??Minimal diffuse disc bulge. There is mild bilateral facet arthropathy. There is mild right and moderate left uncovertebral joint disease. There is mild bilateral neuroforaminal stenosis. There is mild spinal canal stenosis. C7-T1: ??The disk is normal in configuration. There is mild left facet arthropathy. There is mild bilateral uncovertebral joint disease. There is mild bilateral neuroforaminal stenosis. There is no spinal canal stenosis. Procedure Note Ady Barraza MD PhD - 07/20/2022 EXAMINATION: CT of the cervical spine without contrast HISTORY: Cervical stenosis and cervical myelopathy. Cervical spine CT obtained for treatment planning purposes. TECHNIQUE: CT of the cervical spine was performed according to standard protocol without intravenous contrast. Contrast Information: 0 mL Optiray-350 COMPARISON: Cervical spine MRI 05/30/2022. FINDINGS: There is mild reversal of the cervical lordosis. Trace anterolisthesis of C2 on C3, mild anterolisthesis of C3 on C4. Mild retrolisthesis of C4 on C5 and C5 on C6. There is no acute fracture. Degenerative height loss of the C3, C4 and C5 vertebral bodies with subcortical cystic change, sclerosis and osteophytes. Multilevel disc height loss/degeneration most pronounced at C3-C4.. The craniocervical junction is normal. Limited views of the skull base appear normal. 8 mm left thyroid lobe nodule requires no additional dedicated follow up given small size. Interlobular septal thickening of the imaged lungs consistent with mild pulmonary interstitial edema. C2-C3: Slight posterior disc uncovering. There is moderate right and mild left facet arthropathy. There is mild bilateral uncovertebral joint disease. There is mild bilateral neuroforaminal stenosis. There is no spinal canal stenosis. C3-C4: Diffuse disc bulge with superimposed central protrusion. Posterior disc space uncovering. There is severe left facet arthropathy. There is moderate bilateral uncovertebral joint disease. There is severe bilateral neuroforaminal stenosis. There is moderate spinal canal stenosis. C4-C5: Moderate diffuse disc bulge. There is severe right facet arthropathy. There is moderate bilateral uncovertebral joint disease. There is severe right and mild left neuroforaminal stenosis. There is moderate to severe spinal canal stenosis with cord contour deformity spinal canal stenosis. C5-C6: Diffuse disc bulge with superimposed central protrusion. There is mild bilateral facet arthropathy. There is moderate bilateral uncovertebral joint disease. There is moderate bilateral neuroforaminal stenosis. There is moderate spinal canal stenosis. C6-C7: Minimal diffuse disc bulge. There is mild bilateral facet arthropathy. There is mild right and moderate left uncovertebral joint disease. There is mild bilateral neuroforaminal stenosis. There is mild spinal canal stenosis. C7-T1: The disk is normal in configuration. There is mild left facet arthropathy. There is mild bilateral uncovertebral joint disease. There is mild bilateral neuroforaminal stenosis. There is no spinal canal stenosis. IMPRESSION: 1. Cervical spine CT obtained for treatment planning purposes. 2. Degenerative changes in the cervical spine not significantly changed as compared to prior MRI. Severe bilateral neuroforaminal stenosis at C3-C4 predominantly on the basis of facet and uncovertebral joint osteoarthritis. Severe right neuroforaminal stenosis and moderate to severe spinal canal stenosis at C4-C5 predominantly on the basis of facet and uncovertebral joint osteoarthritis. 3. Interlobular septal thickening of the imaged lungs consistent with mild pulmonary interstitial edema. Dictated by: Clay Preston MD The radiology attending physician has personally reviewed this study, and had reviewed and/or edited this written report and agrees with it. Electronically signed by: Ady Barraza M.D, PHD Olivier Marion MD IMG CT PROCEDURES Final Re sult documented in this encounter Visit Diagnoses Diagnosis Spinal stenosis in cervical region- Primary Cervical spondylosis with myelopathy Spinal stenosis in cervical region Cervical spondylosis with myelopathy documented in this encounter Discontinued Medications Medication Sig Discontinue Reason Start Date End Da te dilTIAZem (CARDIZEM) 30 mg tablet Take 30 mg by mouth 2 (two) times a day Alternate therapy 05/15/2022 07/06/2022 documented as of this encounter Care Teams Preschool Head Teacher Relationship Specialty Start Date End Date Rohan Rothman MD [address] [facility] [address] [place] [address] PCP - General 07/20/20 05/12/24 Reanna Polanco RN Registered Nurse 07/07/19 documented as of this encounter
--- OUTSIDE RECORDS SUMMARY | 2024-07-28 01:06 | XMS_ITS | Encounter Summary ---
Author Organization [facility] Address [address] [place] [address] Phone Care Team Providers Care Fruit Picker Name Role Phone Reanna Polanco RN [facility] Rohan Salvador MD Primary Care Provider Encounter Details Date Type Department Care Team (Late st Contact Info) Description 08/07/[address] [facility] Orthopaedic Surgery [address] [facility] [address] [facility] 6th [place] [address] [place] [address] Olivier Marion MD [address] [facility] [address] [place], [place] [id number] Social History Tobacco Use Types Packs/Day Years Used Date Smoking Tobacco: Former Cigarettes 1 5 0 11/27/1978 - 09/28/1983 Smokeless Tobacco: Never Alcohol Use Standard Drinks/Week Comments No 0 (1 standard drink = 0.6 oz pur e alcohol) denies AUDIT-C Answer Date Recorded Q1: How often do you have a drink containing alcohol? Never 08/02/2022 Q2: How many drinks containi ng alcohol do you have on a typical day when you are drinking? Patient does not drink Frequency of Binge Drinking Not on file 10/2022 Comments No Sex and Gender Information Value Date Recorded Sex Assigned at Not on file Legal Sex Female 2:03 AM HAT CHECKER Gender Identity Female 08/26/2020 6:26 AM HAT CHECKER Sexual Orientation Straight 08/26/2020 6: 26 AM HAT CHECKER documented as of this encounter Miscellaneous Notes * Telephone Encounter - Gris Kidd RN - 08/07/2022 2:41 PM CST Annette called today to let me know that she has had a medication change. Her Diltiazem has been discontinued and she is now taking metoprolol. I will get her medication list updated. She will let manuelnow if there is anything additional that I can help with. CHECKER documented in this encounter Plan of Treatment Not on file documented as of this encounter Goals Goal Patient Goal Type Associated Problems Recent Progress Patient-Stated? Author CCM Chronic Pain Care Plan Chronic Care Management Improving( 10:05 AM HAT CHECKER) No Bessy Mancuso, RUBIO Note: Problem: Chronic [...] Reason Start Date End Da te dilTIAZem SR (CARDIZEM SR) 60 mg 12 hr capsuleIndications:Fast heart rate Take 60 mg by mouth 2 (two) times a day Alternate therapy 05/23/2022 08/07/2022 documented as of this encounter Historical Medications * This list may reflect changes made after this encounter. metoprolol XL (TOPROL-XL) 25 mg extended release tablet Take 1 tablet (25 mg total) by mouth daily added in this encounter Care Teams Fruit Picker Relationship Specialty Start Date End Date Rohan Rothman MD [address] [address] PCP - General 07/20/20 05/12/24 Reanna Polanco, RN Registered Nurse 07/07/19 documented as of this encounter
--- OUTSIDE RECORDS SUMMARY | 2024-07-28 01:06 | XMS_ITS | Encounter Summary ---
Author Organization [facility] Healthcare Address [address] [facility] [address] [place] [address] Care Team Providers Care Home Health Care Coordinator Name Role Phone Reanna Polanco RN [facility] Rohan Salvador MD Primary Care Provider Reason for Visit * Reason Comments Follow-up Bilateral lower back Encounter Details Date Type Department Care Team (Latest Contact Info) Description 08/02/2022 11:32 AM INSURANCE OFFICE MANAGER - 08/02/2022 11:59 PM INSURANCE OFFICE MANAGER Hospital Encounter [facility] [place] [address] [facility] [address] [place] [address] Nancy Fernandez MD [address] [facility] [phone] [place] [address] Spinal stenosis in cervical region (Primary Dx); Other secondary scoliosis, lumbar region; Chronic use of opiate drug for therapeutic purpose; Chronic bilateral low back pain without sciatica Discharge Disposition: Discharge to home or self [...] on file Legal Sex Female 2:03 AM INSURANCE OFFICE MANAGER Gender Identity Female 08/26/2020 6:26 AM INSURANCE OFFICE MANAGER Sexual Orientation Straight 08/26/2020 6: 26 AM INSURANCE OFFICE MANAGER documented as of this encounter Last Filed Vital Signs Vital Sign Reading Time Taken Comments Blood Pressure 152/82 08/02/2022 12:01 PM INSURANCE OFFICE MANAGER Pulse 95 08/02/2022 12:01 PM INSURANCE OFFICE MANAGER Temperature 36.6 ??C (97.8 ??F) 08/02/2022 12:[address] Respiratory Rate 18 08/02/2022 12:01 PM INSURANCE OFFICE MANAGER Oxygen Saturation 95% 08/02/2022 12:01 PM INSURANCE OFFICE MANAGER Inhaled Oxygen Concentration - - Weight 70.3 kg (155 lb) 08/02/2022 12:01 PM INSURANCE OFFICE MANAGER Height 170.2 cm (5' 7 ) 08/02/2022 12:01 PM INSURANCE OFFICE MANAGER Body Mass Index 24.28 08/02/2022 12:01 PM INSURANCE OFFICE MANAGER documented in this encounter Medications at Time [...] day As need for pain 90 tablet 08/03/2022 08/12/19 23 magnesium oxide (MAG-OX) 500 mg (301.6 [...] (eight) hours 90 tablet 08/12/2022 09/20/19 23 mupirocin (BACTROBAN) 2 % ointment Apply a small amount to the inside of each nostril using a clean Q-tip for each nostril twice a day for 5 days prior to surgery. 22 g 07/26/2022 08/12/19 23 omega 9-xwr-[id number]-fish oil 1,000 mg (120 mg-180 mg) capsule [...] Progress Notes * Nancy Fernandez MD - 08/02/2022 12:00 PM CST Patient Name: Annette Santiago : 1960 Today's Date: 08/02/2022 PCP: Rohan Rothman MD Referring: Rohan Rothman, * Chief Complaint Patient presents with Follow-up Bilateral lower back INTERVAL HISTORY (08/02/2022): Annette Santiago returns to clinic today. She presents for ongoing management of low back pain. Dr. Soto 07/20/22- planning for cervical decompression surgery on 08/09/21, notes reviewed MRI Cervical Spine 05/30/22: Progressive worsening of the now severe degenerative changes in the cervical spine with moderate spinal canal stenosis noted at C3-C4 and C4-C5. There is thinning of the cord and myelomalacia at C3-C4, new from 07/01/2008. Patient states she is tolerating the current pain medication regimen without major side effects. She states physical therapy has also helped but she is concerned that she will be unlikely to continueit after the surgery. Meloxicam has helped the pain but does cause stomach upset. She has stopped it for six months. Hydrocodone/APAP helps her get through her daily activities. Over the last month she was able to skip a couple of doses here and there. She is encouraged by this, but notes that sometimes attempts todecrease her dose results in decreased function. Pain is at 6/10 in lower back. Has ranged from 6-8 over the last week Radiation: bilateral hips, L>R Numbness: None Weakness: None Pain Assessment Pain Score: 6 Patient's Stated Pain Goal: 2 Pain Location: Back (Lumbar) Pain Radiating Towards: bilateral hips. Mostly your left side Pain Descriptors: Aching, Nagging, Other (Comment), Tiring, Penetrating (nawing) Pain Frequency: Constant/continuous Pain Onset: Ongoing Last visit we did the following: Intervention: none. Medication adjustments: Meloxicam 7.5 mg Daily/ Famotidine 10 mg tab twice per day (since discontinued) Referrals: None Current Pain meds: Pain Medications acetaminophen ER (TYLENOL) 650 mg 8 hr tablet Take 1,300 mg by mouth 2 (two) times a day as needed ARIPiprazole (ABILIFY) 15 mg tablet Take 7.5 [...] day HYDROcodone-acetaminophen (NORCO) 7.5-325 mg per tablet Starting on 08/03/2022. Take 1 tablet by mouth 3 (three) times a day As need for pain meloxicam (MOBIC) 7.5 mg tablet Take 1 tablet (7.5 mg total) by mouth daily methocarbamoL (ROBAXIN) 500 mg tablet Take 2 tablets (1,000 mg total) by mouth 4 (four) times a day methocarbamoL (ROBAXIN) 500 mg tablet Take 2 tablets (1,000 mg total) by mouth 4 (four) times a dayfor 14 days Physical Exam Vitals: 08/02/22 1201 BP: 152/82 Pulse: 95 Resp: 18 Temp: 97.8 ??F (36.6 ??C) SpO2: 95% Weight: 70.3 kg (155 lb) Height: 170.2 cm (5' 7 ) Body mass index is 24.28 kg/m??. Physical Exam Constitutional: General: She is not in acute distress. Appearance: She is well-developed. Skin: General: Skin is warm and dry. Neurological: Mental Status: She is alert and oriented to person, place, and time. Comments: + Hoffmanns left Psychiatric: Mood and Affect: Mood normal. Behavior: Behavior normal. Thought Content: Thought content normal. Judgment: Judgment normal. Assessment The above note documents my personal evaluation of this patient. In addition, I have reviewed and confirmed with the patient and nurse the supportive information documented in today's scanned PatientHealth Questionnaire and Office Note. Encounter Diagnoses Name Primary? Spinal stenosis in cervical region Yes Other secondary scoliosis, lumbar region Chronic use of opiate drug for therapeutic purpose Chronic bilateral low back pain without sciatica Plan Interventions: None indicated at this time Medications: Plan to maintain patient's current medication regimen The patient shows no signs [...] the lowest dose necessary. Chronic Opioid Therapy 08/02/2022 Current analgesics: hydrocodone/APAP 7.5/325 TID (sometimes bid, usually tid) Daily dose (MME): 22.5mg/day Benzo: no Meds locked up: She keeps in an unmarked box in the closet and is sure to put them out of sight if anyone is coming into her home (family members, cleaning crew, etc) Plan: continue current meds for now 3. Imaging: No further imaging needed at this current time. 4. Referral: No referrals needed at this current time. She will follow up after her surgery 5. Follow-up: In 3 months for re-evaluation of the above regimen. Bryan Shelley MD Resident, Anesthesiology I provided this service on 08/02/2022 I saw and examed the patient by myself. I reviewed patient's chart, labs and image/result. I have reviewed the above evaluation and treatment plan withTrainee Physician Dr. Shelley. I agree with the evaluation and treatment plan as above. Nancy Fernandez MD [facility] Department of Anesthesiology and Pain 12:44 PM 08/02/2022 RANCE OFFICE MANAGER documented in this encounter Plan of Treatment Not on file documented as of this encounter Goals Goal Patient Goal Type Associated Problems Recent Progress Patient-Stated? Author CCM Chronic Pain Care Plan Chronic Care Management Improving( 10:05 AM INSURANCE OFFICE MANAGER) No Bessy Mancuso, RUBIO Note: Problem: Chronic Pain Goals: 1. Minimize further functional decline 2. Maximize quality of life 3. Control pain Strategies: - Activity/exercise program recommendation - Conservative stepwise pain medicine strategy with multi-disciplinary approach - Recommend healthy lifestyle strategies and compensatory methods as needed documented as of this encounter Visit Diagnoses Diagnosis Spinal stenosis in cervical region- Primary Other secondary scoliosis, lumbar region Chronic use of opiate drug for therapeutic purpose Chronic bilateral low back pain without sciatica documented in this encounter Care Teams Home Health Care Coordinator Relationship Specialty Start Date End Date Rohan Rothman MD [address] [facility] [address] [place] [id number] PCP - General 07/20/20 05/12/24 Reanna Polanco RN Registered Nurse 07/07/19 documented as of this encounter
--- OUTSIDE RECORDS SUMMARY | 2024-07-28 01:06 | XMS_ITS | Encounter Summary ---
Author Organization [facility] Address [address] [place] [address] Phone Care Team Providers Care Chip Silo Tender Name Role Phone Reanna Polanco RN [facility] Rohan Salvador MD Primary Care Provider Reason for Visit * Reason Onset Date Comments Follow-up 06/07/2022 Encounter Details Date Type Department Care Team (Late st Contact Info) Description 06/07/2022 Telephone [facility] Orthopaedic Surgery [address] [facility] Medicine 6[address] [place] [address] [place] [address] Jared Yu MD [address] [facility] [address] [place] [address] Follow-up Social History Tobacco Use Types Packs/Day Years [...] on file Legal Sex Female 2:03 AM RADAR TESTER Gender Identity Female 08/26/2020 6:26 AM RADAR TESTER Sexual Orientation Straight 08/26/2020 6: 26 AM RADAR TESTER documented as of this encounter Miscellaneous Notes * Telephone Encounter - Krystle Pradhan CMA - 06/07/2022 2:46 PM CST Patient called for clarification. She saw Dr. Marion because he had sooner availability. She still wants to see Dr. Yu as originally planned. She was told that her cervical spine is more of a concern and would need surgery before addressing her scoliosis. I reviewed Dr. Marion's note and confirmed that myelopathy would take precedence. I did explain that Dr. Marion would most likely have OR availability first for the cervical spine vs. Dr. Yu. If she does have the cervical spine done withDr. Marion then she would like to f/u with Dr. Yu when she is able to have the scoliosis surgery. I explained that we would have to discuss this amongst the team. Patient verbalizes understanding. R TESTER documented in this encounter Plan of Treatment Not on file documented as of this encounter Goals Goal Patient Goal Type Associated Problems Recent Progress Patient-Stated? Author CCM Chronic Pain Care Plan Chronic Care Management Improving( 10:05 AM RADAR TESTER) No Bessy Mancuso RN Note: Problem: Chronic Pain Goals: 1. Minimize further functional decline 2. Maximize quality of life 3. Control pain Strategies: - Activity/exercise program recommendation - Conservative stepwise pain medicine strategy with multi-disciplinary approach - Recommend healthy lifestyle strategies and compensatory methods as needed documented as of this encounter Visit Diagnoses Not on filedocumented in this encounter Care Teams Chip Silo Tender Relationship Specialty Start Date End Date Rohan Rothman MD [address] [address] PCP - General 07/20/20 05/12/24 Polanco, Abril L., RN Registered Nurse 07/07/19 documented as of this encounter
--- OUTSIDE RECORDS SUMMARY | 2024-07-28 01:06 | XMS_ITS | Encounter Summary ---
Author Organization [facility] Address [address] [place] [address] Care Team Providers Care Communications Representative Name Role Phone Reanna Polanco RN [facility] Rohan Salvador MD Primary Care Provider Reason for Referral * Consultation (Routine) - Closed Specialty Diagnoses / Procedures Referred By Contac t Referred To Contact Orthopedic Surgery Diagnoses Other secondary scoliosis, lumbar region Spine pain Cervical pain Tim Johnson NP Phone: tel: fax: Laura Figueredo MD [address] [facility] [address] [place] [address] Phone: tel: fax: Referral ID Status Reason Start Date Expiration Date V isits Requested Visits Authorized [id number] Closed Specialty Services Required 05/09/2022 06/08/2023 5 5 Question Answer Please select the performing region: [facility] (All Locations) [[id number]] To provider: LAURA FIGUEREDO [[id number]] # of visits: 1 Comments consultation * MRI/CAT/PET Scan (Routine) - Closed Specialty Diagnoses / Procedures Referred By Contac t Referred To Contact Radiology Diagnoses Cervicalgia Procedures MRI Cervical Spine WO Contrast Tim Johnson NP Phone: tel: fax: [address] [phone] Referral ID Status Reason Start Date Expiration Date Visits Re quested Visits Authorized [id number] Closed 05/10/2022 11/06/2022 1 1 * Diagnostic Imaging (Routine) - Closed Specialty Diagnoses / Procedures Referred By Hadley t Referred To Contact Diagnoses Cervicalgia Procedures X-ray cervical spine complete 4 or 5 vw Tim Johnson NP Phone: tel: fax: [address] [phone] Referral ID Status Reason Start Date Expiration Date Visits Re quested Visits Authorized [id number] Closed 05/09/2022 06/08/2023 1 1 Reason for Visit * Reason Comments Back Pain B/L LB pain & L hip Encounter Details Date Type Department Care Team (Latest Contact Info) Description 05/09/2022 11:47 AM CDT - 05/09/2022 1:44 PM CDT Hospital Encounter [facility] [address] [facility] [address] [place] [address] Nancy Fernandez MD [address] [facility] [id number] [place], [place] [id number] Cervicalgia (Primary Dx); Osteoarthritis of 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; Other secondary scoliosis, lumbar region Discharge Disposition: Discharge to home or self care Social History Tobacco Use Types Packs/Day Years Used Date Smoking Tobacco: Former Cigarettes Smokeless Tobacco: Never Tobacco Cessation:Counseling Given: Not [...] on file Legal Sex Female 2:03 AM EXPLOSIVE EXPERT Gender Identity Female 08/26/2020 6:26 AM EXPLOSIVE EXPERT Sexual Orientation Straight 08/26/2020 6: 26 AM EXPLOSIVE EXPERT documented as of this encounter Last Filed Vital Signs Vital Sign Reading Time Taken Comments Blood Pressure 123/65 05/09/2022 12:00 PM CDT Pulse 83 05/09/2022 12:00 PM CDT Temperature 36.5 ??C (97.7 ??F) 05/09/2022 12:00 PM C DT Respiratory Rate 15 05/09/2022 12:00 PM CDT Oxygen Saturation 94% 05/09/2022 12:00 PM CDT Inhaled Oxygen Concentration - - Weight 75.8 kg (167 lb) 05/09/2022 12:00 PM CDT Height 172.7 cm (5' 8 ) 05/09/2022 12:00 PM CDT Body Mass Index 25.39 05/09/2022 12:00 PM CDT documented in this encounter Discharge Instructions * Patient Instructions* Deanna Hollingsworth RN - 05/09/2022 12:15 PM CDT [facility] ([facility]) DISCHARGE INSTRUCTIONS MEDICATIONS: [x] Continue your current home medications Start: pepcid Mobic [x] Notify your pharmacy for refill(s) 7 [...] CENTER Post Discharge Procedure Information Sheet REFERRALS: Aimee- ortho spine Physical Therapy [] [facility] ([phone]) [] [facility] ([employer]) [] [facility] ([phone]) Option 1 [] [facility] (Graded [employer] Imagery) [] [facility] ([phone]) [] Other: Behavior Medicine [] Pain Psychologist, [facility] Please call to schedule appointment [phone] or [phone] Diagnostic Test(s): c- spine xrays, c-spine MRI May get Radiographs performed in Radiation/X-Ray 6th floor, [address]. EDUCATION provided on the following: [] Spinal Cord Stimulator Education and DVD. Vendor: FOLLOW UP APPOINTMENTS: [] Return as needed [x] Follow up appointment: We will contact you the next day to obtain: [] An update on [...] work required 2 hours before procedure: [] Commercial Review Appraiser needed for next procedure [] Pre Procedure instructions will be sent through [employer] or by phone two working days prior to procedure. *Need help with [employer]? Call [phone]. Patient provided information and repeated back with understanding. If you need to reach us: For any questions about your procedure, please call the Pain Management Center [phone] (M-F) (8am-4pm) If you need urgent attention after 5 pm and weekends: Call the [facility] City Administrator at [phone] and ask for the Pain Service doctor data operations leader. documented in this encounter Medications at Time [...] by mouth daily 08/25/2021 06/05/20 22 omega 0-hls-dnc-fish oil 1,000 mg (120 mg-180 mg) capsule [...] Refills Last Filled Start Date End Date famotidine (PEPCID) 10 mg tablet Take 1 tablet (10 mg total) by mouth 2 (two) times a day 60 tablet 11 05/09/2022 07/18/2022 meloxicam (MOBIC) 7.5 mg tablet Take 1 tablet (7.5 mg total) by mouth daily 30 tablet 11 05/09/2022 05/18/2022 documented in this encounter Discharge Disposition Disposition Code Departure Means Destination Discharge to home or self care documented in this encounter Progress Notes * Nancy Fernandez MD - 05/09/2022 12:15 PM CDT Patient Name: Annette Camarena : 1960 Today's Date: 05/09/2022 PCP: Rohan Rothman MD Referring: Nancy Fernandez MD Chief Complaint Patient presents with Back Pain B/L LB pain & L hip HPI Historical Info: ANNETTE CAMARENA is a [...] - meloxicam - Savella - excedrine migraine ([id number]) - baclofen - methocarbamol - duloxetine - [...] and anterolisthesis at L3-L4 level. INTERVAL HISTORY (05/09/2022): Annette Camarena returns to clinic today. She presents for ongoing management of back pain. Pain is at neck and bilateral lumbar. Radiation: occasionally left lateral leg to mid thigh Numbness: denies Weakness: perceived slight weakness left lower extremity Pain Assessment Pain Score: 6 Patient's Stated Pain Goal: 3 Pain Location: Back (Lumbar) Pain Radiating Towards: L hip Pain Descriptors: Aching, Sharp, Nagging, Tiring, Penetrating, Other (Comment), Tender (ganwing) Pain Frequency: Frequently The pain is described as penetrating, frequent, gnawing, aching, tender, and tiring-exhausting. It rates 6/10 on the numeric pain scale; average 7/10. The pain increases with cold, sitting, walking and standing and decreases with heat, pain medications muscle relaxants. Her ADLs are difficult, but manageable on her own. States she has difficulty with sleep due to pain and muscle spasms. Reports she started physical therapy in December at [facility]. Patient states she is very faithful with her morning stretching and believes it has really helped her muscle spasms. She continues to take medications as prescribed. Is interested in trying an NSAID, such as Meloxicam again with Famotidine. This has been helpful in the past. Patient noticed that she has been having some balance issues since February. States she trips and catches herself prior to falling. Also having increased neck pain and experienced numbness and tinglingin 1st 3 digits of left hand last Sunday, which has now resolved. Denies saddle anesthesia or incontinence of bowel or bladder. Last visit 05/09/22 we did the following: Intervention: TPI- no benefit Medication adjustments: continue current meds for now Referrals: none Current Pain meds: Pain Medications acetaminophen ER (TYLENOL) 650 mg 8 hr tablet Take 2 tablets by mouth 2 (two) times a day ARIPiprazole (ABILIFY) 15 mg tablet Take 7.5 mg by mouth daily ARIPiprazole (ABILIFY) 5 mg tablet Take 5 mg by mouth daily baclofen (LIORESAL) 10 [...] times a dayas needed for muscle spasms meloxicam (MOBIC) 7.5 mg tablet Take 1 tablet (7.5 mg total) by mouth daily No results found. Patient's Medications New Prescriptions FAMOTIDINE (PEPCID) 10 MG TABLET Take 1 tablet (10 mg total) by mouth 2 (two) times a day Authorizing Provider: Nancy Fernandez MD Notes: -- MELOXICAM (MOBIC) 7.5 MG TABLET Take 1 tablet (7.5 mg total) by mouth daily Authorizing Provider: Nancy Fernandez MD Notes: -- Previous Medications ACETAMINOPHEN ER (TYLENOL) 650 MG [...] Joaquín Beckman MD Notes: -- ARIPIPRAZOLE (ABILIFY) 5 MG TABLET Take 5 mg by mouth daily Authorizing Provider: Joaquín Beckman MD Notes: -- ASCORBIC ACID (VITAMIN C) 1,000 MG TABLET Take 1,000 mg by mouth daily. Authorizing Provider: Joaquín Beckman MD Notes: -- BACLOFEN (LIORESAL) 10 MG TABLET Take 2 tablets (20 mg total) by mouth 4 (four) times a day Takes 1-2 tabs QID Authorizing Provider: Heriberto Webster MD PhD Notes: -- CALCIUM CARBONATE-VITAMIN D3 ORAL Calcium [...] Authorizing Provider: Nancy Fernandez MD Notes: -- MAGNESIUM OXIDE (MAG-OX) 500 MG (301.6 MG ELEMENTAL) TABLET Take 500 mg by mouth daily Authorizing Provider: Joaquín Beckman MD Notes: -- METHOCARBAMOL (ROBAXIN) 500 MG TABLET Take 2 tablets (1,000 mg total) by mouth 4 (four) times a day as needed for muscle spasms Authorizing Provider: Heriberto Webster MD PhD Notes: -- METOPROLOL XL (TOPROL-XL) 25 MG EXTENDED RELEASE TABLET Take 1 tablet by mouth daily Authorizing Provider: Joaquín Beckman MD Notes: -- MONTELUKAST (SINGULAIR) 10 MG TABLET nightly Authorizing Provider: Joaquín Beckman MD Notes: -- OMEGA 1-GVM-MIW-FISH OIL 1,000 MG (120 MG-180 MG) CAPSULE [...] Medications No medications on file Discontinued Medications FEXOFENADINE (EILEEN) 60 MG TABLET Take 60 mg by mouth daily Authorizing Provider: Joaquín Beckman MD Notes: -- IBUPROFEN (IBUPROFEN) 200 MG TAB/CAP Take by mouth every 6 (six) hours as needed for pain Authorizing Provider: Joaquín Beckman MD Notes: -- Allergies Allergen Reactions Decongestant Capsule Other (See comments) bladder spasms with decongestants Review of Systems Review of Systems All other systems reviewed and are negative. appetite changes, weight changes, stomach upset, constipation, urinary changes, sexual function concerns, change in physical activity, mood changes and all other systems negative other than as documented in HPI Physical Exam Vitals: 05/09/22 1200 BP: 123/65 Pulse: 83 Resp: 15 Temp: 97.7 ??F (36.5 ??C) SpO2: 94% Weight: 75.8 kg (167 lb) Height: 172.7 cm (5' 8 ) Body mass index is 25.39 kg/m??. Physical Exam GENERAL: In no acute [...] extremities. NEUROLOGIC: Cranial Nerves: II-XII grossly intact Sensation decreased to light touch on right upper and lower extremities. Spine Cervical Palpation: Tenderness along bilateral paraspinal ROM: decreased Special Tests: Spurling's positive bilaterally Facet tenderness: mild bilaterally Facet loading: positive bilaterally Thoracic Palpation: Negative Tenderness along bilateral paraspinal Lumbar/Pelvis Palpation: Tenderness along bilateral paraspinal ROM: decreased Special Tests: SLR negative bilaterally Facet tenderness: moderate bilaterally Lumbar facet loading: positive bilaterally OMA test: positive on right SI joint compression negative bilaterally Strength Upper Extremity Right Left Elbow [...] Left Hip Flexion (L2, Femoral N.) 5/5 5-/5 Knee Extension (L3, Femoral N.) 5/5 5/5 Ankle Dorsiflexion (L4, Deep Peroneal N.) 5/5 5/5 Great Toe Extension (L5, Deep Peroneal N.) 5/5 5/5 Ankle Plantarflexion (S1, Tibial N.) 5/5 5/5 Reflexes Upper Extremity: Mathew's: negative bilaterally Unable to perform heel or toe walking Gait: slow and steady Assessment The above note documents my personal evaluation of this patient. In addition, I have reviewed and confirmed with the patient and nurse the supportive information documented in today's scanned PatientHealth Questionnaire and Office Note. Encounter Diagnoses Name Primary? Cervicalgia Yes Osteoarthritis of 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 Other secondary scoliosis, lumbar region Plan Interventions: none at this time Medications: Meloxicam 7.5 mg Daily Famotidine 10 mg tab twice per day The patient shows no signs of aberrant [...] the lowest dose necessary. Chronic Opioid Therapy 05/09/2022 Current analgesics: hydrocodone/APAP 7.5/325 TID (sometimes bid, usually tid) Daily dose (MME): 22.5mg/day Benzo: no Meds locked up: She keeps in an unmarked box in the closet and is sure to put them out of sight if anyone is coming into her home (family members, cleaning crew, etc) Plan: continue current meds for now UDS: 11/30/20 - consistent and continue UDS 02/06/22- consistent with prescribed hydrocodone/APAP 3. Imaging: Due to the patient's symptoms, we will obtain imaging of C-spine XR and C-Spine MRI. 4. Referral: We will refer the patient to Dr. Figueredo for consultation. 5. Follow-up: In 3 months or sooner if needed depending on the results of the imaging and for re-evaluation of the above regimen. Orders Placed This Encounter Procedures X-ray cervical spine complete 4 or 5 vw Standing Status: Future Number of Occurrences: 1 Standing Expiration Date: 05/09/2023 Order Specific Question: Where should this order be performed? Answer: [facility] [[id number]] MRI Cervical Spine WO Contrast Standing Status: Future Standing Expiration Date: 05/09/2023 Order Specific Question: Is patient claustrophobic? Answer: No Order Specific Question: Is patient able to lie flat for at least one hour? Answer: Yes Order Specific Question: Where should this order be performed? Answer: [facility] [[id number]] Order Specific Question: Does the patient have a cardiovascular implantable electronic device, pacemaker, or implantable cardioverter-defibrillator? Answer: No Order Specific Question: Does the patient require anesthesia? Answer: No Order Specific Question: Does the patient have a programmable shunt? Answer: No Ambulatory referral to Orthopedic Spine consultation Standing Status: Future Standing Expiration Date: 05/09/2023 Referral Priority: Routine Referral Type: Consultation Referral Reason: Specialty Services Required Referral Location: [facility] (All Locations) Referred to Provider: Laura Figueredo MD Requested Specialty: Orthopedic Surgery Number of Visits Requested: 1 Tim VirgenVamsi VEENA No follow-ups on file. documented in this encounter Miscellaneous Notes * Addendum Note - Sandrita Mariano - 05/09/2022 12:15 PM CDTEncounter addended by: Sandrita Mariano on: 05/11/2022 8:34 AM Actions taken: Procedure log completed documented in this encounter Plan of Treatment Scheduled Referrals Name Type Priority Associated Diagnoses Order Schedule Ambulatory referral to Orthopedic Spine Outpatient Referral Routine Other secondary scoliosis, lumbar region Expected: 05/23/2022 (Approximate), Expires: 05/09/2023 documented as of this encounter Goals Goal Patient Goal Type Associated Problems Recent Progress Patient-Stated? Author CCM Chronic Pain Care Plan Chronic Care Management Improving( 10:05 AM EXPLOSIVE EXPERT) No Bessy Mancuso, RUBIO Note: Problem: Chronic Pain Goals: 1. Minimize further functional decline 2. Maximize quality of life 3. Control pain Strategies: - Activity/exercise program recommendation - Conservative stepwise pain medicine strategy with multi-disciplinary approach - Recommend healthy lifestyle strategies and compensatory methods as needed documented as of this encounter Results * MRI Cervical Spine [...] Electronically signed by: Latricia Ruiz M.D. Tim Alex ASSOCIATE PROFESSOR OF KINESIOLOGY IMG MRI PROCEDURES Leandra l Result * X-ray cervical spine complete 4 or [...] Electronically signed by: Hector Killian MD Tim Alex ASSOCIATE PROFESSOR OF KINESIOLOGY IMG XR PROCEDURES Final Result documented in this encounter Visit Diagnoses Diagnosis Cervicalgia- Primary Osteoarthritis of 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 Other secondary scoliosis, lumbar region Cervicalgia Cervicalgia documented in this encounter Discontinued Medications Medication Sig Discontinue Reason Start Date End Da te ibuprofen (ibuprofen) 200 mg tab/cap Take by mouth every 6 (six) hours as needed for pain Therapy completed 05/09/2022 fexofenadine (EILEEN) 60 mg tablet Take 60 mg by mouth daily Therapy completed 05/09/2022 documented as of this encounter Historical Medications * This list may reflect changes made after this encounter. ARIPiprazole (ABILIFY) 5 mg tablet Take 5 mg by mouth nightly Total 12.5 mg 04/20/2022 10/31/2022 added in this encounter Care Teams Communications Representative Relationship Specialty Start Date End Date Rohan Rothman MD [address] [facility] [address] [place] [address] PCP - General 07/20/20 05/12/24 Reanna Polanco RN Registered Nurse 07/07/19 documented as of this encounter
--- OUTSIDE RECORDS SUMMARY | 2024-07-28 01:06 | XMS_ITS | Encounter Summary ---
Author Organization [facility] Address [address] [place] [address] Phone Care Team Providers Care Toe Former Stitchdowns Name Role Phone [facility] Primary Care Provider Encounter Details Date Type Department Care Team (Late st Contact Info) Description 05/19/2022 Orders Only [facility] Orthopaedic Surgery [address] [facility] 6th [place] [address] [place] [address] Krystle Pradhan CMA Social History Tobacco Use Types Packs/Day Years [...] on file Legal Sex Female 2:03 AM MATERIAL REQUIREMENTS WORKER Gender Identity Female 08/26/2020 6:26 AM MATERIAL REQUIREMENTS WORKER Sexual Orientation Straight 08/26/2020 6: 26 AM MATERIAL REQUIREMENTS WORKER documented as of this encounter Plan of Treatment Not on file documented as of this encounter Goals Goal Patient Goal Type Associated Problems Recent Progress Patient-Stated? Author CCM Chronic Pain Care Plan Chronic Care Management Improving( 10:05 AM MATERIAL REQUIREMENTS WORKER) Bessy Gayle, RUBIO Note: Problem: Chronic Pain Goals: 1. Minimize further functional decline 2. Maximize quality of life 3. Control pain Strategies: - Activity/exercise program recommendation - Conservative stepwise pain medicine strategy with multi-disciplinary approach - Recommend healthy lifestyle strategies and compensatory methods as needed documented as of this encounter Visit Diagnoses Not on filedocumented in this encounter Care Teams Toe Former Stitchdowns Relationship Specialty Start Date End Date Rohan Rothman MD [address] [facility] [address] [place] [id number] PCP - General 07/20/20 05/12/24 Reanna Polanco RN Registered Nurse 07/07/19 documented as of this encounter
--- OUTSIDE RECORDS SUMMARY | 2024-07-28 01:06 | XMS_ITS | Encounter Summary ---
Author Organization [facility] Address [address] [place] [address] Phone Care Team Providers Care Nursing Teacher Name Role Phone Reanna Polanco RN [facility] Rohan Salvador MD Primary Care Provider Reason for Visit * Reason Comments New Patient Encounter Details Date Type Department Care Team (Late st Contact Info) Description 06/05/2022 1:40 PM INTERMEDIATE FRAME TENDER Office Visit [facility] Orthopaedic Surgery [address] [facility] [address] [place] [id number] Olivier Marion MD [address] [facility] [address] [place] [address] Spinal stenosis in cervical region (Primary Dx); [...] on file Legal Sex Female 2:03 AM INTERMEDIATE FRAME TENDER Gender Identity Female 08/26/2020 6:26 AM INTERMEDIATE FRAME TENDER Sexual Orientation Straight 08/26/2020 6: 26 AM INTERMEDIATE FRAME TENDER documented as of this encounter Last Filed Vital Signs Vital Sign Reading Time Taken Comments Blood Pressure - - Pulse - - Temperature - - Respiratory Rate - - Oxygen Saturation - - Inhaled Oxygen Concentration - - Weight 71.2 kg (157 lb) 06/05/2022 1:09 PM INTERMEDIATE FRAME TENDER Height 170.2 cm (5' 7 ) 06/05/2022 1:09 PM INTERMEDIATE FRAME TENDER Body Mass Index 24.59 06/05/2022 1:09 PM INTERMEDIATE FRAME TENDER documented in this encounter Progress Notes * Olivier Marion MD - 06/05/2022 1:40 PM CST New Patient Visit History of Present Illness: Annette Santiago is a 62 y.o. female who was seen in consultation at the request of Dr. Fernandez for cervical myelomalacia identified in MRI. She denies any inciting event and states that many years ago she had steroid injections in her neck which improved her pain. She was referred by Dr. Fernandez following an episode where she was outside in the cold and subsequently felt sharp pain in her left hand 2nd-4th finger tips which resolved after several minutes, and she has not had since then. She denies any true neck pain and says it is more of a mild stiffness. She describes the quality of the pain as stiffness and the intensity of the pain as mild. On average, she rates her symptoms as 4/10 in severity. The pain is unpredictable. Nothing makes the pain worse and heat, narcotics, baclofen, robaxin, and CBD cream which she uses mainly for her lumbar scoliosis makes the pain better. Her symptoms are 100 % in the neck and 0 % in the arm. She does not have numbness/tingling. She does not have weakness of the arm. She had a mild problem with ambulating andbalance that she associated with exercises for her lumbar scoliosis, but states her difficulties have resolved. The patient has no difficulty picking up small objects like coins or buttoning buttons. This problem did not start at work and there is not a Workers' Compensation claim. Patient has tried heat, narcotics, baclofen, robaxin, and CBD cream which she uses mainly for her lumbar scoliosis for this problem which has given moderate relief. She feels their symptoms is unchanged but reports minimal concern regarding her symptoms at baseline Unsteadiness of gait: No Bowel or bladder symptoms/incontinence: No Prior spine surgery: No Prior Epidural Injections: Yes, years ago Prior Physical Therapy: Yes (for lumbar spine) Prior health care aide: No Prior Accupuncture: No Past Medical History: [...] Procedure Laterality Date HYSTEROSCOPY W/ ENDOMETRIAL ABLATION CT UNLISTED LAPAROSCOPY PROC,INTESTINE Intestinal Laparoscopy - (Added [...] 10 mg capsule Take by mouth dilTIAZem (CARDIZEM) 30 mg tablet Take 30 mg by mouth 2 (two) times a day dilTIAZem SR (CARDIZEM SR) 60 mg [address] (CYMBALTA) 60 mg capsule Take 60 mg by mouth 2 (two) times a day estradiol-norethindrone (ACTIVELLA) 1-0.5 mg per tablet daily famotidine (PEPCID) 10 mg tablet Take 1 tablet (10 mg total) by mouth 2 (two) times a day 60 [id number] HYDROcodone-acetaminophen (NORCO) 7.5-325 mg per tablet Take [...] montelukast (SINGULAIR) 10 mg tablet nightly omega 3-khf-yfh-fish oil 1,000 mg (120 mg-180 mg) capsule daily ruxolitinib (Opzelura) 1.5 % cream turmeric root extract 500 mg capsule Take 1,500 mg by mouth daily zolpidem (AMBIEN) 10 mg tablet TAKE 1 TABLET AT BEDTIME NEEDED FOR SLEEP. No current facility-administered medications for this visit. Physical Examination: Ht 170.2 cm (5' 7 ) Wt 71.2 kg (157 lb) BMI 24.59 kg/m?? Constitutional: No apparent distress . Alert and [...] intact Motor: Deltoid Biceps Triceps WE WF Staying Machine Operator Right 5 5 5 5 5 5 Left 5 5 5 5 5 5 IP Quadriceps Hamstrings TA EHL GS Right 5 5 5 5 5 5 Left 5 5 5 5 5 5 Sensory: reduced light touch sensation, location: left C6-C8 DTR: B BR T Patella Achilles Right 2/4 2/4 2/4 2/4 2/4 Left 3/4 3/4 3/4 2/4 2/4 Spurling Sign: Normal Bilaterally Babinski's Sign: Negative Bilaterally Mathew's Sign: Positive on left Clonus: Negative bilateral Tandem Gait negative Rhomberg negative Radiology: Conventional Radiographs: AP lateral flexion extension oblique cervical radiographs were taken 05/09/2022 at [facility]. I personally reviewed these films which demonstrated significant degenerative spondylosis at C3-C6 with loss of cervical lordosis, anterolisthesis of C3 on C4. MRI: Cervical MRI performed on 05/30/2022 at [facility] was personally reviewed by me and redemonstrates a cervical spine as moderate spinal canal stenosis noted at C3-C4 and C4-C5. There is thinning of the cord and myelomalacia at C3-C4 I personally reviewed the images. PROMIS PROMIS PROMIS Bank V1.0 Anxiety: 45.9 PROMIS Bank V1.0 Depression: 49.9 PROMIS Bank V1.1 Pain Interference: 61.4 PROMIS Bank V2.0 Physical Function: 31.1 Jessica Olivares MD Orthopaedic Surgery PGY-1 I have seen and examined the patient on 06/05/2022. I agree with the findings and plan of care as documented in the resident's/fellow's note.. Olivier Marion MD Assessment Annette Santiago is a 62 y.o. [...] as epidural injections 3. Surgical intervention Plan Since she does have not seen any progression of her myelopathic symptoms and it is not bothersome she decided to to continue with non-operative management 2. Follow up in six weeks sooner if symptoms worsen 3. Counseled regarding return precautions, including fine motor issues in hands, balance issues, and bowel/bladder symptoms. Counseled patient that following the onset of symptoms, surgery is intended to halt symptom progression but may not alter existing symptoms. The patients questions were answered in detail Olivier Marion MD RMEDIATE FRAME TENDER documented in this encounter Plan of Treatment Not on file documented as of this encounter Goals Goal Patient Goal Type Associated Problems Recent Progress Patient-Stated? Author CCM Chronic Pain Care Plan Chronic Care Management Improving( 10:05 AM INTERMEDIATE FRAME TENDER) No Bessy Mancuso RN Note: Problem: Chronic [...] cervical region- Primary Cervical spondylosis with myelopathy documented in this encounter Discontinued Medications Medication Sig Discontinue Reason Start Date End Da te metoprolol XL (TOPROL-XL) 25 mg extended release tablet Take 1 tablet by mouth daily Therapy completed 08/25/2021 06/05/2022 documented as of this encounter Historical Medications * This list may reflect changes made after this encounter. dilTIAZem (CARDIZEM) 30 mg tablet Take 30 mg by mouth 2 (two) times a day 05/15/2022 07/06/2022 dilTIAZem SR (CARDIZEM SR) 60 mg 12 hr capsuleIndication s:Fast heart rate Take 60 mg by mouth 2 (two) times a day 05/23/2022 08/07/2022 added in this encounter Care Teams Nursing Teacher Relationship Specialty Start Date End Date Rohan Rothman MD [address] [facility] [address] [facility] [address] [place] [id number] PCP - General 07/20/20 05/12/24 Reanna Polanco RN Registered Nurse 07/07/19 documented as of this encounter
--- OUTSIDE RECORDS SUMMARY | 2024-07-28 01:06 | XMS_ITS | Encounter Summary ---
Author Organization [facility] Address [address] [place] [address] Care Team Providers Care Kitchen Assistant Name Role Phone Reanna Polanco RN [facility] Rohan Salvador MD Primary Care Provider Reason for Referral * MRI/CAT/PET Scan (Routine) - Closed Specialty Diagnoses / Procedures Referred By Contac t Referred To Contact Radiology Diagnoses Spinal stenosis in cervical region Cervical spondylosis with myelopathy Procedures CT Cervical Spine WO Contrast Olivier Marion MD [address] [place] [address] Phone: tel: fax: [address] [phone] Referral ID Status Reason Start Date Expiration Date Visits Re quested Visits Authorized [id number] Closed 07/07/2022 08/06/2023 1 1 H POLISHER Reason for Visit * MRI/CAT/PET Scan (Routine) - Closed Specialty Diagnoses / Procedures Referred By Contac t Referred To Contact Radiology Diagnoses Spinal stenosis in cervical region Cervical spondylosis with myelopathy Procedures CT Cervical Spine WO Contrast Olivier Marion MD [address], [place] [address] Phone: tel: fax: [facility] [address] [facility] [place] [address] Referral ID Status Reason Start Date Expiration Date Visits Re quested Visits Authorized [id number] Closed 07/07/2022 08/06/2023 1 1 Encounter Details Date Type Department Care Team (Latest Contact Info) Description 07/20/2022 7:39 AM TOOTH POLISHER - 07/20/2022 10:29 AM TOOTH POLISHER Hospital Encounter [facility] [address] [place] [address] Olivier Marion MD [address] [facility] [address] [place] [address] Spinal stenosis in cervical region; Cervical spondylosis [...] on file Legal Sex Female 2:03 AM TOOTH POLISHER Gender Identity Female 08/26/2020 6:26 AM TOOTH POLISHER Sexual Orientation Straight 08/26/2020 6: 26 AM TOOTH POLISHER documented as of this encounter Medications at [...] hours 90 tablet 08/12/2022 09/20/19 23 omega 9-erm-bnd-fish oil 1,000 mg (120 mg-180 mg) capsule [...] Plan Chronic Care Management Improving( 10:05 AM TOOTH POLISHER) Bessy Gayle, RN Note: Problem: Chronic Pain Goals: 1. Minimize further functional decline 2. Maximize quality of life 3. Control pain Strategies: - Activity/exercise program recommendation - Conservative stepwise pain medicine strategy with multi-disciplinary approach - Recommend healthy lifestyle strategies and compensatory methods as needed documented as of this encounter Procedures Procedure Name Priority Date/Time Associated Diagnosis Comments CT CERVICAL SPINE WO CONTRAST Schedule Routine, Read Routine (OP Routine) 07/20/2022 8:22 AM TOOTH POLISHER Spinal stenosis in cervical region Cervical spondylosis with myelopathy documented in this encounter Results * CT Cervical Spine WO Contrast (07/20/2022 8:22 AM TOOTH POLISHER) Anatomical Region Laterality Modality Spine N/A Computed Tomogra phy 07/20/2022 9:26 AM TOOTH POLISHER Impressions 07/20/2022 10:00 AM TOOTH POLISHER 1. ??Cervical spine CT obtained for treatment [...] Barraza M.D, PHD Narrative 07/20/2022 10:00 AM TOOTH POLISHER EXAMINATION: CT of the cervical spine without [...] Ady Barraza M.D, PHD Olivier Marion MD IM CT PROCEDURES Final Re sult documented in this encounter Visit Diagnoses Diagnosis Spinal stenosis in cervical region Cervical spondylosis with myelopathy documented in this encounter Care Teams Kitchen Assistant Relationship Specialty Start Date End Date Rohan Rothman MD [address] [facility] [address] [place] [address] PCP - General 07/20/20 05/12/24 Reanna Polanco, RN Registered Nurse 07/07/19 documented as of this encounter
--- OUTSIDE RECORDS SUMMARY | 2024-07-28 01:06 | XMS_ITS | Encounter Summary ---
Author Organization [facility] Healthcare Address [address] [place] [address] Care Team Providers Care Car Sealer Name Role Phone Reanna Polanco RN [facility] Rohan Salvador MD Primary Care Provider Encounter Details Date Type Department Care Team (Late st Contact Info) Description 2022 Telephone [facility] [address] [facility] [address] [place] [address] Tim Johnson NP [address] [place] [address] Social History Tobacco Use Types Packs/Day Years [...] on file Legal Sex Female 2:03 AM SOURCING ANALYST Gender Identity Female 08/26/2020 6:26 AM SOURCING ANALYST Sexual Orientation Straight 08/26/2020 6: 26 AM SOURCING ANALYST documented as of this encounter Miscellaneous Notes * Telephone Encounter - Tim Johnson NP - 2022 7:38 AM CDT 05/31/[address] Fernandez. Called patient to discuss referral to Ortho spine for cervical spine. Patient voiced understanding is aware of upcoming appt. In contact with Dr. Marion's office for appt. documented in this encounter Plan of Treatment Not on file documented as of this encounter Goals Goal Patient Goal Type Associated Problems Recent Progress Patient-Stated? Author CCM Chronic Pain Care Plan Chronic Care Management Improving( 10:05 AM SOURCING ANALYST) No Bessy Mancuso RN Note: Problem: Chronic Pain Goals: 1. Minimize further functional decline 2. Maximize quality of life 3. Control pain Strategies: - Activity/exercise program recommendation - Conservative stepwise pain medicine strategy with multi-disciplinary approach - Recommend healthy lifestyle strategies and compensatory methods as needed documented as of this encounter Visit Diagnoses Not on filedocumented in this encounter Care Teams Car Sealer Relationship Specialty Start Date End Date Rohan Rothman MD [address] [facility] [address] [place] [address] PCP - General 07/20/20 05/12/24 Reanna Polanco, RN Registered Nurse 07/07/19 documented as of this encounter
--- OUTSIDE RECORDS SUMMARY | 2024-07-28 01:06 | XMS_ITS | Encounter Summary ---
Author Organization [facility] Healthcare Address [address] [place] [address] Care Team Providers Care Music Education Director Name Role Phone Reanna Polanco RN [facility] Rohan Salvador MD Primary Care Provider Reason for Visit * Reason Comments Follow-up Lower back pain and Fibromyalgia Encounter Details Date Type Department Care Team (Latest Contact Info) Description 12/19/2021 12:36 PM CDT - 12/19/2021 11:59 PM CDT Hospital Encounter [facility] [address] [facility] [address] [place] [address] Nancy Fernandez MD [address] [facility] [id number] [place] [address] Chronic bilateral low back pain without sciatica (Primary Dx); Other secondary scoliosis, lumbar region; Chronic use of opiate drug for therapeutic purpose; Fibromyalgia Discharge Disposition: Discharge to home or self [...] on file Legal Sex Female 2:03 AM PSYCHIATRIC TECH Gender Identity Female 08/26/2020 6:26 AM PSYCHIATRIC TECH Sexual Orientation Straight 08/26/2020 6: 26 AM PSYCHIATRIC TECH documented as of this encounter Last Filed Vital Signs Vital Sign Reading Time Taken Comments Blood Pressure 131/66 12/19/2021 1:06 PM CDT Pulse 79 12/19/2021 1:06 PM CDT Temperature 36.5 ??C (97.7 ??F) 12/19/2021 1:06 PM CD T Respiratory Rate 15 12/19/2021 1:06 PM CDT Oxygen Saturation 98% 12/19/2021 1:06 PM CDT Inhaled Oxygen Concentration - - Weight 70.3 kg (155 lb) 12/19/2021 1:06 PM CDT Height 172.7 cm (5' 8 ) 12/19/2021 1:06 PM CDT Body Mass Index 23.57 12/19/2021 1:06 PM CDT documented in this encounter Discharge Instructions * Patient Instructions* Karo Johnson RN - 12/19/2021 1:56 PM CDT Trigger Point Injections Next Available documented in this encounter Medications at Time [...] QID 240 tablet 11 03/02/2021 04/07/20 22 fexofenadine (EILEEN) 60 mg tablet Take 60 mg by mouth daily 05/09/20 22 HYDROcodone-aceta minophen (NORCO) 7.5-325 mg per tabletIndications :Pain Take 1 tablet by mouth 3 (three) times a day As need for pain 90 tablet 12/06/2021 12/30/19 22 ibuprofen (ibuprofen) 200 mg tab/cap Take by mouth every 6 (six) hours as needed for pain 05/09/20 22 magnesium oxide (MAG-OX) 500 mg (301.6 mg elemental) tablet Take 500 mg by mouth 2 (two) times a day 09/05/19 23 methocarbamoL (ROBAXIN) 500 mg tablet Take 2 tablets (1,000 mg total) by mouth 4 (four) times a day as needed for muscle spasms 56 tablet 1 07/04/2021 01/05/20 22 metoprolol XL (TOPROL-XL) 25 mg extended release tablet Take 1 tablet by mouth daily 08/25/2021 06/05/20 22 omega 0-vct-pei-fish oil 1,000 mg (120 mg-180 mg) capsule Take 1 capsule by mouth every morning 09/05/19 23 ruxolitinib (Opzelura) 1.5 % cream Apply 1 application topically 2 (two) times a week Mon and Sun. 09/06/2021 08/12/19 23 turmeric root extract 500 mg capsuleIndication s:OTC Take 1,350 mg by mouth every morning 09/05/19 23 documented as of this encounter Discharge Disposition Disposition Code Departure Means Destination Discharge to home or self care documented in this encounter Progress Notes * Nancy Fernandez MD - 12/19/2021 1:00 PM CDT Patient Name: Katrina Camarena : 1960 Today's Date: 12/19/2021 PCP: Rohan Rothman MD Referring: Rohan Rothman, * Chief Complaint Patient presents with ??? Follow-up Lower back pain and Fibromyalgia HPI Historical Info: KATRINA CAMARENA is a patient initially seen [...] - meloxicam - Savella?? - excedrine migraine (GVAP-LEJ-qnalplhm) - baclofen - methocarbamol - duloxetine - [...] anterolisthesis at L3-L4 level. ? INTERVAL HISTORY (12/19/2021): Katrina Camarena returns to clinic today. She presents for ongoing management of low back pain with muscle spasms. She reports her pain is still not good. She has been on her feet a lot because her was hospitalized for 10 days. He's home now but weak from his hospitalization. Last visit - Not doing well at all. Says that the pain levels have been up a lot. Worst pain is thelow back, but it seems to flare up the fibro pain. Feels like muscle spasms. Walking used to help but now seems to make things worse. Muscle relaxants don't help enough. Used to help more. She is taking baclofen 20mg qid and methocarbamol 1000mg qid. Pain is at low back. Radiation: none Numbness: none Weakness: none Pain Assessment Pain Score: 5 - Moderate pain Patient's Stated Pain Goal: 4 Pain Location: (back) Pain Radiating Towards: bilateral hips Pain Descriptors: Aching, Tiring, Tender Pain Frequency: Constant/continuous Pain Onset: Ongoing The pain is described as spasms. It rates 5/10 on the numeric pain scale; average 7/10. The pain increases with standing, walking, sitting, weather changes and decreases with meds, heat. Her ADLs are difficult, but manageable on her own. Last visit 09/20/21 we did the following: Intervention: consider TPI- lumbar paraspinals Medication adjustments: continue current meds for now Referrals: PT - she would like a Rx to go to her regular physical therapist at [facility]. She is also going to try someone who specializes in scoliosis who is based in [facility] once there are openings in that practice. Current Pain meds: Pain Medications acetaminophen ER [...] times a day As need for pain ibuprofen (ibuprofen) 200 mg tab/cap Take by mouth every 6 (six) hours as needed for pain methocarbamoL (ROBAXIN) 500 mg tablet Take 2 tablets (1,000 mg total) by mouth 4 (four) times a dayas needed for muscle spasms No results found. Patient's Medications New Prescriptions No medications on [...] Joaquín Beckman MD Notes: -- DULOXETINE DR (MARGARETHMBALTA) 60 MG CAPSULE Take 60 mg by [...] dayas needed for muscle spasms Authorizing Provider: Nancy Fernandez MD Notes: -- METOPROLOL XL (TOPROL-XL) 25 MG EXTENDED RELEASE TABLET Take 1 tablet by mouth daily Authorizing Provider: Joaquín Beckman MD Notes: -- MONTELUKAST (SINGULAIR) 10 MG TABLET nightly Authorizing Provider: Joaquín Beckman MD Notes: -- OMEGA 9-LYE-CYW-FISH OIL 1,000 MG (120 MG-180 MG) CAPSULE [...] Medications No medications on file Discontinued Medications ASPIRIN 325 MG TABLET Take 3 tablets by mouth daily Authorizing Provider: Joaquín Beckman MD Notes: -- Allergies Allergen Reactions ??? Decongestant Capsule Other (See comments) bladder spasms with decongestants Physical Exam Vitals: 12/19/21 1306 BP: 131/66 Pulse: 79 Resp: 15 Temp: 97.7 ??F (36.5 ??C) SpO2: 98% Weight: 70.3 kg (155 lb) Height: 172.7 cm (5' 8 ) Body mass index is 23.57 kg/m??. Physical Exam Gen: in NAD Skin: no rashes Thoracic: nonTTP, severe muscle spasm Lumbar: facet loading negative BL. TPIs present. SI joints nonTTP. Severe muscle spasm. Strength: 5/5 BL LEs Eyes: anicteric Assessment The above note documents my personal evaluation of this patient. In addition, I have reviewed and confirmed with the patient and nurse the supportive information documented in today's scanned PatientHealth Questionnaire and Office Note. Encounter Diagnoses Name Primary? Chronic bilateral low back pain without sciatica Yes ??? Other secondary scoliosis, lumbar region ??? Chronic use of opiate drug for therapeutic purpose ??? Fibromyalgia Plan 1. Interventions: Given MSK pain in lumbar spine, will perform lumbar paravertebral TPIs at next visit. Other considerations- sprint. 2. Medications: The patient shows no signs of [...] the lowest dose necessary. Chronic Opioid Therapy 12/19/2021 ?Current analgesics: hydrocodone/APAP 7.5/325 TID??(sometimes bid, usually tid) Daily dose (MME): 22.5mg/day Benzo: no Meds locked up: She keeps in an unmarked box in the closet and is sure to put them out of sight if anyone is coming into her home (family members, cleaning crew, etc) UDS:??11/30/20 - consistent and continue Plan: continue current meds for now 3. Imaging: No further imaging needed at this current time. L spine MRI and L spine x-ray reviewed with the patient today. 4. Referral: No referrals needed at this current time. Continue PT. 5. Follow-up: At the next possible visit for the procedure listed above No orders of the defined types were placed in this encounter. Gordy Maldonado M.D., M.A. Fellow, Pain Management Center Department of Anesthesiology, Division of Pain Management [facility], [facility] I provided this service on 12/19/2021 I saw and examed the patient by myself. I reviewed patient's chart, labs and image/result. I have reviewed the above evaluation and treatment plan withTrainee Physician Dr. Maldonado . I agree with the evaluation and treatment plan as above. Nancy Fernandez MD [facility] Department of Anesthesiology and Pain 2:33 PM 12/19/2021 --- The visit is deemed to have MODERATE LEVEL of medical decision making. MDM type Number and complexity of problems addressed Amount/complexity of Data to be reviewed and analyzed Risk of complications/ morbidity of patient management Moderate 2 or more stable, chronic illnesses Must meet 1 of 3 categories: Reviewed notes from external sources Prescription drug management documented in this encounter Plan of Treatment Not on file documented as of this encounter Goals Goal Patient Goal Type Associated Problems Recent Progress Patient-Stated? Author CCM Chronic Pain Care Plan Chronic Care Management Improving( 10:05 AM PSYCHIATRIC TECH) No Bessy Mancuso, RUBIO Note: Problem: Chronic Pain Goals: 1. Minimize further functional decline 2. Maximize quality of life 3. Control pain Strategies: - Activity/exercise program recommendation - Conservative stepwise pain medicine strategy with multi-disciplinary approach - Recommend healthy lifestyle strategies and compensatory methods as needed documented as of this encounter Visit Diagnoses Diagnosis Chronic bilateral low back pain without sciatica- Primary Other secondary scoliosis, lumbar region Chronic use of opiate drug for therapeutic purpose Fibromyalgia Unspecified myalgia and myositis documented in this encounter Discontinued Medications Medication Sig Discontinue Reason Start Date End Da te aspirin 325 mg tablet Take 3 tablets by mouth daily Therapy completed 09/13/2020 12/19/2021 documented as of this encounter Historical Medications * This list may reflect changes made after this encounter. ibuprofen (ibuprofen) 200 mg tab/cap Take by mouth every 6 (six) hours as needed for pain 05/09/2022 added in this encounter Care Teams Music Education Director Relationship Specialty Start Date End Date Rohan Rothman MD [address] [facility] [address] [place] [address] PCP - General 07/20/20 05/12/24 Reanna Polanco, RN Registered Nurse 07/07/19 documented as of this encounter
--- OUTSIDE RECORDS SUMMARY | 2024-07-28 01:06 | XMS_ITS | Encounter Summary ---
Author Organization [facility] Address [address] [place] [address] Phone Care Team Providers Care Senior Software Systems Engineer Name Role Phone Reanna Polanco RN [facility] Rohan Salvador MD Primary Care Provider Reason for Referral * Diagnostic Imaging (Routine) - Closed Specialty Diagnoses / Procedures Referred By Contac t Referred To Contact Diagnoses Spinal stenosis in cervical region Cervical spondylosis with myelopathy Procedures XR Spine Cervical W Flexion And Extension 4 or 5 Views Olivier Marion MD [address] [facility] [place] [address] Phone: tel: fax: [facility] Referral ID Status Reason Start Date Expiration Date Visits Re quested Visits Authorized [id number] Closed 07/17/2022 08/16/2023 1 1 D INSURANCE SALES MANAGER Encounter Details Date Type Department Care Team (Late st Contact Info) Description 07/20/2022 11:00 AM FIELD INSURANCE SALES MANAGER Office Visit [facility] [address] [facility] [address]th [place] [address] [place] [address] Olivier Marion MD [address] [facility] [address] Spinal stenosis in cervical region (Primary Dx); [...] on file Legal Sex Female 2:03 AM FIELD INSURANCE SALES MANAGER Gender Identity Female 08/26/2020 6:26 AM FIELD INSURANCE SALES MANAGER Sexual Orientation Straight 08/26/2020 6: 26 AM FIELD INSURANCE SALES MANAGER documented as of this encounter Progress Notes * Olivier Marion MD - 07/20/2022 11:00 AM CST Established patient visit History of Present [...] Physical Therapy: Yes (for lumbar spine) Prior resident care assistant: No Prior Accupuncture: No Past Medical History: [...] fever and allergy relief Past Surgical History: Past Surgical History: Procedure Laterality Date CATARACT EXTRACTION right eye only HYSTEROSCOPY W/ ENDOMETRIAL ABLATION [place] UNLISTED LAPAROSCOPY PROC,INTESTINE Intestinal Laparoscopy - (Added by Conv) SPINE SURGERY upcoming w/Dr. Marion Social History: Social History Tobacco Use Smoking [...] Brother Anesthesia problems Neg Hx Medication: Current Outpatient Medications Medication Sig Dispense [...] prior to surgery. 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 I personally reviewed these films which demonstrated significant degenerative spondylosis at C3-C6 with loss of cervical lordosis, anterolisthesis of C3 on C4. MRI: Cervical MRI performed on 05/30/2022 at [facility] was personally reviewed by me [...] answered in detail ____ Olivier Marion MD D INSURANCE SALES MANAGER documented in this encounter Plan of Treatment Not on file documented as of this encounter Goals Goal Patient Goal Type Associated Problems Recent Progress Patient-Stated? Author CCM Chronic Pain Care Plan Chronic Care Management Improving( 10:05 AM FIELD INSURANCE SALES MANAGER) No Bessy Mancuso, RUBIO Note: Problem: [...] 4 or 5 Views (07/20/2022 10:42 AM FIELD INSURANCE SALES MANAGER) Anatomical Region Laterality Modality Spine N/A Computed Radiogr aphy 07/20/2022 10:4 9 AM FIELD INSURANCE SALES MANAGER Impressions 07/20/2022 10:49 AM FIELD INSURANCE SALES MANAGER Unchanged severe degenerative disc disease at C3-C6. Electronically signed by: Cheng Negron MD Narrative 07/20/2022 10:49 AM FIELD INSURANCE SALES MANAGER EXAMINATION: XR SPINE CERVICAL W FLEXION AND [...] myelopathy documented in this encounter Care Teams Senior Software Systems Engineer Relationship Specialty Start Date End Date Rohan Rothman MD [address] [facility] [address] [place] [address] PCP - General 07/20/20 05/12/24 Reanna Polanco, RN Registered Nurse 07/07/19 documented as of this encounter
--- OUTSIDE RECORDS SUMMARY | 2024-07-28 01:07 | XMS_ITS | Encounter Summary ---
Author Organization [facility] Address [address] [facility] [place] [address] Care Team Providers Care Woods Warden Name Role Phone Reanna Polanco RN Unavailable Unavail le Rohan Rothman MD Primary Care Provider Reason for Visit * Cardiology (Routine) - Closed Specialty Diagnoses / Procedures Referred By Contac t Referred To Contact Diagnoses Palpitations Lightheadedness Procedures MCT Mobile Cardiac Telemetry Event Monitor Rohan Rothman MD [address] [place] [address] Phone: tel: fax: [facility] Referral ID Status Reason Start Date Expiration Date Visits Re quested Visits Authorized [id number] Closed 05/02/2021 06/01/2022 1 1 Encounter Details Date Type Department Care Team (Latest Contact Info) Description 05/04/2021 9:00 AM CDT Ancillary Procedure [facility] Cardiology [address] [place] [address] Palpitations; Lightheadedness Social History Tobacco Use Types Packs/Day Years Used Date Smoking Tobacco: Former Cigarettes Smokeless Tobacco: Never Alcohol Use Standard Drinks/Week Comments No 0 (1 standard drink = 0.6 oz pur e alcohol) denies AUDIT-C Answer Date Recorded Q1: How often do you have a drink containing alc ohol? Never 11/30/2020 Average Number of Drinks Not on file 021 Frequency of Binge Drinking Not on file 10/2020 Comments No Sex and Gender Information Value Date Recorded Sex Assigned at Not on file Legal Sex Female 2:03 AM SPANISH LITERATURE PROFESSOR Gender Identity Female 08/26/2020 6:26 AM SPANISH LITERATURE PROFESSOR Sexual Orientation Straight 08/26/2020 6: 26 AM SPANISH LITERATURE PROFESSOR documented as of this encounter Procedure Notes * Moncho Nolasco MD - 05/04/2021 12:00 AM CDT THIRTY DAY TEXTILE FINISHER Indication Palpitations. Ordering Physician Dr. Rothman. Total of 28 days, 14 hours and 24 minutes were monitored. Prescription Days 30. Baseline Date 05/04/2021. End date 2021. Findings Sinus rhythm with heart rate variability between 50 and 172 beats per minute with an average heart rate of 82 beats per minute. There was intermittent first- degree AV block. There was no significant pauses, atrial fibrillation. Low frequency ventricular ectopy totaling 7801 beats, which was less than 1% ectopic burden. Occasional supraventricular ectopy totaling 10,450 beats which is 1% ectopic burden. There were 3 episodesof paroxysmal supraventricular tachycardia or sustained supraventricular tachycardia with the fastest run being at a rate of 172 beats per minute. These were symptomatic events also. There was one 17-beat run at a wider complex rhythm, which is likely supraventricular tachycardia with aberrancy, although I cannot exclude a 17-beat run of nonsustained ventricular tachycardia at a rate of 165 beats per minute. This was an asymptomatic event. Patient triggered events were noted with symptoms of heart racing, lightheaded, dizzy, generally correlating to sinus rhythm with episodes of paroxysmal supraventricular tachycardia or sustained supraventricular tachycardia. Initial episode was for 19 beats at a rate of 158 beats per minute correlating to a symptom of heart racing. An episode of lightheaded and heart racing correlated to an atrial run as well as PVCs and another episode of lightheadedness and dizziness correlating to sustained supraventricular tachycardia lasting for 12 seconds at a rate of 172 beats per minute. Conclusion 1. Sinus rhythm with average heart rate of 82 beats per minute. 2. Symptomatic episodes of supraventricular tachycardia as detailed above. Longest episode lasting for 12 seconds at a rate of 172 beats per minute. 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 Author CCM Chronic Pain Care Plan Chronic Care Management Improving( 10:05 AM SPANISH LITERATURE PROFESSOR) No Bessy Mancuso RN Note: Problem: Chronic Pain Goals: 1. Minimize further functional decline 2. Maximize quality of life 3. Control pain Strategies: - Activity/exercise program recommendation - Conservative stepwise pain medicine strategy with multi-disciplinary approach - Recommend healthy lifestyle strategies and compensatory methods as needed documented as of this encounter Visit Diagnoses Diagnosis Palpitations Lightheadedness Dizziness and giddiness documented in this encounter Care Teams Woods Warden Relationship Specialty Start Date End Date Rohan Rothman MD [address] [facility] [address] [address] PCP - General 07/20/20 05/12/24 Reanna Polanco, RN Registered Nurse 07/07/19 documented as of this encounter
--- OUTSIDE RECORDS SUMMARY | 2024-07-28 01:07 | XMS_ITS | Encounter Summary ---
Author Organization [facility] Healthcare Address [address] [place] [address] Care Team Providers Care Social Media Manager Name Role Phone Reanna Polanco RN [facility] Rohan Salvador MD Primary Care Provider Reason for Visit * Reason Comments Back Pain lower Encounter Details Date Type Department Care Team (Latest Contact Info) Description 11/30/2020 8:44 AM CDT - 11/30/2020 11:59 PM CDT Hospital Encounter [facility] [address] [facility] [address] [place], [place] [id number] Nancy Fernandez MD [address] [facility] [id number] [place] [address] Chronic use of opiate drug for therapeutic purpose (Primary Dx); Osteoarthritis of 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; Chronic bilateral low back pain without sciatica; Sacroiliac joint dysfunction Discharge Disposition: Discharge to home or self [...] file Legal Sex Female 2:03 AM CARE MGR Gender Identity Female 08/26/2020 6:26 AM CARE MGR Sexual Orientation Straight 08/26/2020 6: 26 AM CARE MGR documented as of this encounter Last Filed Vital Signs Vital Sign Reading Time Taken Comments Blood Pressure 154/81 11/30/2020 9:00 AM CDT Pulse 104 11/30/2020 9:00 AM CDT Temperature 36.5 ??C (97.7 ??F) 11/30/2020 9:00 AM CD T Respiratory Rate - - Oxygen Saturation 95% 11/30/2020 9:00 AM CDT Inhaled Oxygen Concentration - - Weight 70.3 kg (155 lb) 11/30/2020 9:00 AM CDT Height 172.7 cm (5' 8 ) 11/30/2020 9:00 AM CDT Body Mass Index 23.57 11/30/2020 9:00 AM CDT documented in this encounter Discharge Instructions * Patient Instructions* Corine Escobar RN - 11/30/2020 9:00 AM CDT [facility] ([facility]) DISCHARGE INSTRUCTIONS MEDICATIONS: [x] Continue your current home medications, refill sent Start: [] Notify your pharmacy for refill(s) 7 days before you are out of your medication. [] Opioid (Narcotic) Agreement signed and patient received copy. [] Side Effects of Opioid Medications given to patient Resume blood thinner: On Discontinue: PROCEDURE at today's visit: DIET: [x] Resume normal diet [] See [facility] Post Discharge Procedure Information Sheet ACTIVITY: [x] Resume normal activity [] See [facility] Post Discharge Procedure Information Sheet REFERRALS: Physical Therapy [] [facility] ([phone]) [] [facility]) [] [facility] ([phone]) [] [facility]) [] Other: Behavior Medicine [] Pain Psychologist, [facility] Please call to schedule appointment [phone] or [phone] Diagnostic Test(s): EDUCATION provided on the following: [] Spinal Cord Stimulator Education and DVD. Vendor: FOLLOW UP APPOINTMENTS: [] Return as needed [x] Follow up appointment: in 3 months We will contact you the next business day to obtain: [] An update on your condition [] Your Pain diary scores [] Procedure at your next visit : COVID 19 Vaccine Update Steroids given for a procedure may decrease the effectiveness of the COVID 19 vaccine. Therefore, steroid injections will be held for 2(two) weeks before your first vaccine until 2 (two)weeks after your second vaccine. Please schedule your procedure according to the above guidelines. INSTRUCTIONS before your next procedure: [] See [facility] Pre-Procedure Information Sheet [] Do not eat or drink for six (6) hours before the time/date of the procedure. [] Inquire with your prescribing provider if ok to hold blood thinner for ( ) days before procedure. [] Blood work required 2 hours before procedure: [] Crude Unit Operator needed for next procedure [] Pre Procedure instructions will be sent through [employer] or by phone two working days prior to procedure. *Need help with [employer]? Call [phone]. Patient provided information and repeated back with understanding. If you need to reach us: For any questions about your procedure, please call the Pain Management Center [phone] (M-F) (8am-4pm) If you need urgent attention after 5 pm and weekends: Call the [facility] Director Music at [phone] and ask for the Pain Service doctor crm consultant. documented in this encounter Medications at [...] D 1,000 international units take 2 daily. estradiol-norethi ndrone (ACTIVELLA) 1-0.5 mg per tablet [...] a week Sunday04/02/2020 02/26/20 24 ARIPiprazole (ABILIFY) 5 mg tablet Take 1 1/2 tablets daily. Total 7.5 mg. 06/06/20 21 aspirin 325 mg tablet Take 3 tablets by mouth daily 09/13/2020 12/20/19 22 baclofen (LIORESAL) 10 mg tablet 20 mg 4 (four) times a day Takes 1-2 tabs QID 06/19/2007 01/05/20 21 clobetasol (TEMOVATE) 0.05 % cream as needed 06/13/2019 06/06/[address] (CYMBALTA) 30 mg capsule 30 mg Total dose 90 mg a day 08/13/2018 06/06/20 21 fexofenadine (EILEEN) 60 mg tablet Take 60 mg by mouth daily 05/09/20 22 HYDROcodone-aceta minophen (NORCO) 7.5-325 mg per tabletIndications :Pain Take 1 tablet by mouth 3 (three) times a day As need for pain 90 tablet 12/10/2020 01/02/20 21 magnesium oxide (MAG-OX) 250 mg (150.8 mg elemental) tabletIndications :hypomagnesemia Take 750 mg by mouth daily 06/06/20 21 methocarbamoL (ROBAXIN) 500 mg tablet Take 2 tablets (1,000 mg total) by mouth 4 (four) times a day as needed for muscle spasms 720 tablet 1 06/07/2020 01/05/20 21 omega 3-sbj-qev-fish oil 1,000 mg (120 mg-180 mg) capsule Take 1 capsule by mouth every morning 09/05/19 23 turmeric root extract 500 mg capsuleIndication s:OTC Take 1,350 mg by mouth every morning 09/05/19 23 documented as of this encounter Ordered Prescriptions Prescription Sig Dispense Quantity Refills Last Filled Start Date End Date HYDROcodone-acetam inophen (NORCO) 7.5-325 mg per tabletIndications: Pain Take 1 tablet by mouth 3 (three) times a day As need for pain 90 tablet 12/10/2020 01/01/2021 documented in this encounter Discharge Disposition Disposition Code Departure Means Destination Discharge to home or self care documented in this encounter Progress Notes * Nancy Fernandez MD - 11/30/2020 9:00 AM CDT Patient Name: Annette Camarena : 1960 Today's Date: 11/30/2020 PCP: Rohan Rothman MD Referring: No ref. provider found Chief Complaint Patient presents with ??? Back Pain lower HPI Historical Info: ANNETTE CAMARENA is a [...] - meloxicam - Savella?? - excedrine migraine ([id number]) - baclofen - methocarbamol - duloxetine - [...] SIJ - 06/30/19: Right L3-S1 RFA: no pain??nrelief - 07/07/19: Left L3-S1 RFA: no significant relief. ?? - 09/22/19: bilateral SI injection - some benefit Imaging: Lumbar XR 11/18/20 - Moderate [...] and anterolisthesis at L3-L4 level. INTERVAL HISTORY (11/30/2020): Annette Camarena returns to clinic today. She presents for ongoing management of low back, sacral,hip pain. Pain is at L/S junction. Radiation: right groin Has been walking daily - 08/02-1/2 mi per day - has built up stamina. Thinks that the warm weather may bring more functional improvements. Some days are ok and other days are really bad. Bad pain is in the low back/ sacral/ hip region. Had a couple days a few weeks ago when she felt almost normal. She says she doesn't understand why some days can be so good and other days she can't get out of bed due to pain. She gets acupunture -hasn't been doing during covid. Feels that there is a lot of associated muscle spasm. Taking both methocarbamol and baclofen, whichare noticeably helpful. Pain Assessment Pain Score: 7 Pain Location: Back (Lumbar) Pain Radiating Towards: R thigh occasionally Pain Descriptors: Aching, Nagging, Penetrating, Tiring, Tender, Spasm Pain Frequency: Constant/continuous Last visit 10/26/20 we did the following: Intervention: none Medication adjustments: continue current meds for now Referrals: lumbar XR and MRI ordered Lumbar XR 11/18/20 - Moderate rotatory levoscoliosis [...] these levels, and anterolisthesis at L3-L4 level. Current Pain meds: Pain Medications acetaminophen ER (Tylenol 8 Hour) 650 mg 8 hr tablet Take 2 tablets by mouth 2 (two) times a day ARIPiprazole (ABILIFY) 5 mg tablet Take 1 1/2 tablets daily. Total 7.5 mg. aspirin 325 mg tablet Take 3 tablets by mouth 3 (three) times a day baclofen (LIORESAL) 10 mg tablet 20 mg 4 (four) times a day Takes 1-[address] (CYMBALTA) 30 mg capsule 30 mg Total dose 90 mg a day HYDROcodone-acetaminophen (NORCO) 7.5-325 mg per tablet Take 1 tablet by mouth 3 (three) times a day As need for pain methocarbamoL (ROBAXIN) 500 mg tablet Take 2 tablets (1,000 mg total) by mouth 4 (four) times a dayas needed for muscle spasms No results found. Review of Systems Review of Systems ROS change in physical activity and all other systems negative other than as documented in HPI Patient's Medications New Prescriptions No medications on file Previous Medications ACETAMINOPHEN ER (TYLENOL 8 HOUR) 650 MG 8 HR TABLET Take 2 [...] -- ARIPIPRAZOLE (ABILIFY) 5 MG TABLET Take 1 1/2 tablets daily. Total 7.5 mg. Authorizing Provider: Joaquín Beckman MD Notes: -- ASCORBIC ACID (VITAMIN C) 1,000 MG TABLET Take 1,000 mg by mouth daily. Authorizing Provider: Joaquín Beckman MD Notes: -- ASPIRIN 325 MG TABLET Take 3 tablets by mouth 3 (three) times a day Authorizing Provider: Joaquín Beckman MD Notes: -- BACLOFEN (LIORESAL) 10 MG TABLET 20 mg 4 (four) times a day Takes 1-2 tabs QID Authorizing Provider: Joaquín Beckman MD Notes: -- CALCIUM CARBONATE-VITAMIN D3 ORAL Calcium Carbonate 1,200 mg with Vitamin D 1,000 international units take 2 daily. Authorizing Provider: Joaquín Beckman MD Notes: -- CLOBETASOL (TEMOVATE) 0.05 % CREAM as needed Authorizing Provider: Joaquín Beckman MD Notes: -- DULOXETINE DR (CYMBALTA) 30 MG CAPSULE 30 mg Total dose 90 mg a day Authorizing Provider: Joaquín Beckman MD Notes: >> MO LAMBERT Mon Jan 19, 2020 1:32 PM 30 mg and 60 mg tablet daily Total dose 90 mgs ESTRADIOL-NORETHINDRONE (ACTIVELLA) 1-0.5 MG PER TABLET daily Authorizing Provider: Joaquín Beckman MD Notes: -- FEXOFENADINE (EILEEN) 60 MG TABLET Take 60 mg by mouth daily Authorizing Provider: Joaquín Beckman MD Notes: -- HYDROCODONE-ACETAMINOPHEN (NORCO) 7.5-325 MG PER TABLET Take 1 tablet by mouth 3 (three) times a day As need for pain Authorizing Provider: Nancy Fernandez MD Notes: -- MAGNESIUM OXIDE (MAG-OX) 250 MG (150.8 MG ELEMENTAL) TABLET Take 750 mg by mouth daily Authorizing Provider: Joaquín Beckman MD Notes: -- METHOCARBAMOL (ROBAXIN) 500 MG TABLET Take 2 tablets (1,000 mg total) by mouth 4 (four) times a dayas needed for muscle spasms Authorizing Provider: Bonifacio Gr MD Notes: -- MONTELUKAST (SINGULAIR) 10 MG TABLET nightly Authorizing Provider: Joaquín Beckman MD Notes: -- OMEGA 7-ZKY-QTM-FISH OIL 1,000 MG (120 MG-180 MG) CAPSULE daily Authorizing Provider: Joaquín Beckman MD Notes: -- TURMERIC ROOT EXTRACT 500 MG CAPSULE Take 1,500 mg by mouth. Authorizing Provider: Joaquín Beckman MD Notes: -- ZOLPIDEM (AMBIEN) 10 MG TABLET TAKE 1 TABLET AT BEDTIME NEEDED FOR SLEEP. Authorizing Provider: Joaquín Beckman MD Notes: -- Modified Medications No medications on file Discontinued Medications CETIRIZINE (ZYRTEC) 10 MG TABLET Take 1 tablet by mouth daily Authorizing Provider: Joaquín Beckman MD Notes: -- Allergies Allergen Reactions ??? Decongestant Capsule Other (See comments) bladder spasms with decongestants Physical Exam Vitals: 11/30/20 0900 BP: 154/81 Pulse: 104 Temp: 97.7 ??F (36.5 ??C) SpO2: 95% Weight: 70.3 kg (155 lb) Height: 172.7 cm (5' 8 ) Body mass index is 23.57 kg/m??. Physical Exam Constitutional: Appearance: Normal appearance. HENT: Head: Normocephalic and atraumatic. Eyes: Conjunctiva/sclera: Conjunctivae normal. Pulmonary: Effort: Pulmonary effort is normal. Musculoskeletal: General: Tenderness present. Comments: TTP over SI Lumbar scoliois Skin: General: Skin is warm and dry. [...] of opiate drug for therapeutic purpose Yes ??? Osteoarthritis of 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 ??? Chronic bilateral low back pain without sciatica ??? Sacroiliac joint dysfunction Plan 1. Interventions: could consider SI injection 2. Medications: Continue current meds for now - meds are helping, no additional medication changes needed at this time. The patient shows no signs of aberrant [...] the lowest dose necessary. Chronic Opioid Therapy 11/30/2020 Current analgesics: hydrocodone/APAP 7.5/325 TID??(sometimes bid, usually tid) Daily dose (MME): 22.5mg/day Benzo: no Meds locked up: She keeps in an unmarked box in the closet and is sure to put them out of sight if anyone is coming into her home (family members, cleaning crew, etc) UDS: 11/30/20 - consistent and continue Plan: continue current meds for now 3. Imaging: No further imaging needed at this current time. 4. Referral: she is doing her HEP. does well with PT but doesn't think she needs to go back right now. Will consider retunring in the future. Discussed referral to spine surgeon for scoliosis. She isfunctionally improving and does not think she is ready to see a surgeon. 5. Follow-up: In 3mo for re-evaluation of the above regimen. Orders Placed This Encounter Procedures ??? Pain Management Profile Standing Status: Future Number of Occurrences: 1 Standing Expiration Date: 11/29/2021 ??? Pain Management Profile Standing Status: Standing Number of Occurrences: 1 No follow-ups on file. Nancy Fernandez MD --- The visit is deemed to have MODERATE LEVEL of medical decision making. MDM type Number and complexity of problems addressed Amount/complexity of Data to be reviewed and analyzed Risk of complications/ morbidity of patient management Moderate 2 or more stable, chronic illnesses Must meet 1 of 3 categories: Independent interpretation of a test performed by another healthcare professional Prescription drug management documented in this encounter Nursing Notes * Reanna Rivero RN - 11/30/2020 9:00 AM CDT 11/30/20 10:09 AM Urine Drug Screen obtained: [x] [facility] lab Medication/Dose/Frequency: Hydrocodone-acetaminophen (NORCO) 7.5-325mg TID PRN Date and time of Last Dose: 11/30/2020 0830 documented in this encounter Miscellaneous Notes * Addendum Note - Reanna Rivero RN - 11/30/2020 9:00 AM CDTEncounter addended by: Reanna Rivero RN on: 11/30/2020 10:31 AM Actions taken: Flowsheet accepted * Addendum Note - Sandrita Mariano - 11/30/2020 9:00 AM CDTEncounter addended by: Sandrita Mariano on: 11/30/2020 4:45 PM Actions taken: Procedure log completed * Addendum Note - Nancy Fernandez MD - 11/30/2020 9:00 AM CDTEncounter addended by: Nancy Fernandez MD on: 12/01/2020 4:25 PM Actions taken: Clinical Note Signed, Specialty comments modified documented in this encounter Plan of Treatment Scheduled Orders Name Type Priority Associated Diagnoses Orde r Schedule Pain Management Profile Lab Routine Chronic use of opiate drug for therapeutic purpose Expected: 11/29/2020, Expires: 11/29/2021 Pain Management Profile Lab Routine Chronic use of opiate drug for therapeutic purpose Once for 1 Occurrences starting 11/30/2020 until 11/30/2020 documented as of this encounter Goals Goal Patient Goal Type Associated Problems Recent Progress Patient-Stated? Author CCM Chronic Pain Care Plan Chronic Care Management Improving( 10:05 AM CARE MGR) No Bessy Mancuso, RUBIO Note: Problem: Chronic Pain Goals: 1. Minimize further functional decline 2. Maximize quality of life 3. Control pain Strategies: - Activity/exercise program recommendation - Conservative stepwise pain medicine strategy with multi-disciplinary approach - Recommend healthy lifestyle strategies and compensatory methods as needed documented as of this encounter Visit Diagnoses Diagnosis Chronic use of opiate drug for therapeutic purpose- Primary Osteoarthritis of 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 Chronic bilateral low back pain without sciatica Sacroiliac joint dysfunction Nonallopathic lesion of sacral region, not elsewhere classified documented in this encounter Discontinued Medications Medication Sig Discontinue Reason Start Date End Da te cetirizine (ZyrTEC) 10 mg tablet Take 1 tablet by mouth daily 01/28/2020 11/30/2020 HYDROcodone-acetaminophe n (NORCO) 7.5-325 mg per tabletIndications:Pain Take 1 tablet by mouth 3 (three) times a day As need for pain Reorder 11/10/2020 11/30/2020 documented as of this encounter Historical Medications * This list may reflect changes made after this encounter. fexofenadine (EILEEN) 60 mg tablet Take 60 mg by mouth daily 05/09/2022 added in this encounter Care Teams Social Media Manager Relationship Specialty Start Date End Date Rohan Rothman MD [address] [facility] [address] [place] [id number] PCP - General 07/20/20 05/12/24 Reanna Polanco RN Registered Nurse 07/07/19 documented as of this encounter
--- OUTSIDE RECORDS SUMMARY | 2024-07-28 01:07 | XMS_ITS | Encounter Summary ---
Author Organization [facility] Healthcare Address [address] [place] [address] Care Team Providers Care Riveter Name Role Phone Reanna Polanco RN [facility] Rohan Salvador MD Primary Care Provider Reason for Referral * Diagnostic Imaging (Routine) - Closed Specialty Diagnoses / Procedures Referred By Contac t Referred To Contact Diagnoses Pain of lumbar facet joint Chronic bilateral low back pain without sciatica Procedures X-ray lumbar spine complete with bending Nancy Fernandez MD [address] [facility] [address] [facility] [phone] [place] [address] Phone: tel: fax: [address] [phone] Referral ID Status Reason Start Date Expiration Date Visits Re quested Visits Authorized [id number] Closed 10/26/2020 11/25/2021 1 1 Reason for Visit * Diagnostic Imaging (Routine) - Closed Specialty Diagnoses / Procedures Referred By Contac t Referred To Contact Diagnoses Pain of lumbar facet joint Chronic bilateral low back pain without sciatica Procedures X-ray lumbar spine complete with bending Nancy Fernandez MD [address] [facility] [address] [facility] [phone] [place] [address] Phone: tel: fax: [facility] [address] [facility] [place] [address] Referral ID Status Reason Start Date Expiration Date Visits Re quested Visits Authorized [id number] Closed 10/26/2020 11/25/2021 1 1 Encounter Details Date Type Department Care Team (Latest Contact Info) Description 11/18/2020 9:09 AM CDT - 11/18/2020 11:59 PM CDT Hospital Encounter [facility] [address] [place] [address] Nancy Fernandez MD [address] [facility] [phone] [place] [address] Pain of lumbar facet joint; Chronic bilateral low back pain without sciatica [...] have a drink containing alc ohol? Never 10/26/2020 Average Number of Drinks Not on file 021 Frequency of Binge Drinking Not on file 09/29 Comments No Sex and Gender Information Value Date Recorded Sex Assigned at Not on file Legal Sex Female 2:03 AM GASOLINE ATTENDANT Gender Identity Female 08/26/2020 6:26 AM GASOLINE ATTENDANT Sexual Orientation Straight 08/26/2020 6: 26 AM GASOLINE ATTENDANT documented as of this encounter Medications at [...] Takes 1-2 tabs QID 06/19/2007 01/05/20 21 cetirizine (ZyrTEC) 10 mg tablet Take 1 tablet by mouth daily 01/28/2020 12/01/19 21 clobetasol (TEMOVATE) 0.05 % cream as needed 06/13/2019 06/06/[address] (CYMBALTA) 30 mg capsule 30 mg Total dose 90 mg a day 08/13/2018 06/06/20 21 HYDROcodone-aceta minophen (NORCO) 7.5-325 mg per tabletIndications :Pain Take 1 tablet by mouth 3 (three) times a day As need for pain 90 tablet 11/10/2020 12/01/19 21 magnesium oxide (MAG-OX) 250 mg (150.8 mg elemental) tabletIndications :hypomagnesemia Take 750 mg by mouth daily 06/06/20 21 methocarbamoL (ROBAXIN) 500 mg tablet Take 2 tablets (1,000 mg total) by mouth 4 (four) times a day as needed for muscle spasms 720 tablet 1 06/07/2020 01/05/20 21 omega 7-rrn-idg-fish oil 1,000 mg (120 mg-180 mg) capsule [...] Plan Chronic Care Management Improving( 10:05 AM GASOLINE ATTENDANT) Bessy Gayle RN Note: Problem: Chronic Pain Goals: 1. Minimize further functional decline 2. Maximize quality of life 3. Control pain Strategies: - Activity/exercise program recommendation - Conservative stepwise pain medicine strategy with multi-disciplinary approach - Recommend healthy lifestyle strategies and compensatory methods as needed documented as of this encounter Procedures Procedure Name Priority Date/Time Associated Diagnosis Comments XR SPINE LUMBAR W BENDING 6 OR MORE VIEWS Schedule Routine, Read Routine (OP Routine) 11/18/2020 9:18 AM CDT Pain of lumbar facet joint Chronic bilateral low back pain without sciatica documented in this encounter Results * X-ray lumbar spine complete with bending (11/18/2020 9:18 AM CDT) Anatomical Region Laterality Modality Spine N/A Computed Radiogr aphy 11/18/2020 9:26 AM CDT Impressions 11/18/2020 9:26 AM CDT 1. ??Moderate, progressive rotatory thoracolumbar levoscoliosis and left lateral listhesis of L3 on L4 2. Progressive, severe degenerative disc disease from L3 to L5 Electronically signed by: Gail Calix M.D. Narrative 11/18/2020 9:26 AM CDT EXAMINATION: XR SPINE LUMBAR W BENDING 6 OR MORE VIEWS HISTORY: Lower back pain FINDINGS: 6 views of lumbar spine are submitted with comparison MRI dated 11/07/2020 and radiographs dated 04/22/2018. There is moderate rotatory levoscoliosis of the thoracolumbar spine centered at L1-2 with flat back deformity. There is mild left lateral listhesis of L3 on L4. Vertebral body heights are normal. Lumbar spinal motion is limited. Severe degenerative disc disease is noted from L3 to L5. There is moderate to severe lumbar facet arthropathy. The aorta is atherosclerotic. Procedure Note Gail Calix MD - 11/18/2020 EXAMINATION: XR SPINE LUMBAR W BENDING 6 OR MORE VIEWS HISTORY: Lower back pain FINDINGS: 6 views of lumbar spine are submitted with comparison MRI dated 11/07/2020 and radiographs dated 04/22/2018. There is moderate rotatory levoscoliosis of the thoracolumbar spine centered at L1-2 with flat back deformity. There is mild left lateral listhesis of L3 on L4. Vertebral body heights are normal. Lumbar spinal motion is limited. Severe degenerative disc disease is noted from L3 to L5. There is moderate to severe lumbar facet arthropathy. The aorta is atherosclerotic. IMPRESSION: 1. Moderate, progressive rotatory thoracolumbar levoscoliosis and left lateral listhesis of L3 on L4 2. Progressive, severe degenerative disc disease from L3 to L5 Electronically signed by: Gail Calix M.D. Nancy Fernandez MD IMG XR PROCEDURES Final Re sult documented in this encounter Visit Diagnoses Diagnosis Pain of lumbar facet joint Chronic bilateral low back pain without sciatica documented in this encounter Care Teams Riveter Relationship Specialty Start Date End Date Rohan Rothman MD [address] [facility] [address] [place] [address] PCP - General 07/20/20 05/12/24 Reanna Polanco, RN Registered Nurse 07/07/19 documented as of this encounter
--- OUTSIDE RECORDS SUMMARY | 2024-07-28 01:07 | XMS_ITS | Encounter Summary ---
Author Organization [facility] Address [address] [place] [address] Care Team Providers Care Top Cager Name Role Phone Reanna Polanco RN [facility] Rohan Salvador MD Primary Care Provider Encounter Details Date Type Department Care Team (Late st Contact Info) Description 05/02/2021 Orders Only [facility] Cardiology [address] [place] [address] Provider, MD Joaquín [address] [place] [id number] Social History Tobacco Use Types Packs/Day Years [...] on file Legal Sex Female 2:03 AM SUPPLY CHAIN COORDINATOR Gender Identity Female 08/26/2020 6:26 AM SUPPLY CHAIN COORDINATOR Sexual Orientation Straight 08/26/2020 6: 26 AM SUPPLY CHAIN COORDINATOR documented as of this encounter Plan of Treatment Not on file documented as of this encounter Goals Goal Patient Goal Type Associated Problems Recent Progress Patient-Stated? Author CCM Chronic Pain Care Plan Chronic Care Management Improving( 10:05 AM SUPPLY CHAIN COORDINATOR) No Bessy Mancuso, RN Note: Problem: Chronic Pain Goals: 1. Minimize further functional decline 2. Maximize quality of life 3. Control pain Strategies: - Activity/exercise program recommendation - Conservative stepwise pain medicine strategy with multi-disciplinary approach - Recommend healthy lifestyle strategies and compensatory methods as needed documented as of this encounter Procedures Procedure Name Priority Date/Time Associated Diagnosis Comments CARDIOLOGY DOCUMENT SCAN Routine 05/02/2021 documented in this encounter Results * SCAN - CARDIOLOGY (05/02/2021) Anatomical Region Laterality Modality Other us Historical Provider [facility] Final Result documented in this encounter Visit Diagnoses Not on filedocumented in this encounter Care Teams Top Cager Relationship Specialty Start Date End Date Rohan Rothman MD [address] [facility] [[email or web address] [address] [place] [address] PCP - General 07/20/20 05/12/24 Reanna Polanco RN Registered Nurse 07/07/19 documented as of this encounter
--- OUTSIDE RECORDS SUMMARY | 2024-07-28 01:07 | XMS_ITS | Encounter Summary ---
Author Organization [facility] Healthcare Address [address] [place] [address] Care Team Providers Care Specimen Accessioner Name Role Phone Reanna Polanco RN [facility] Rohan Salvador MD Primary Care Provider Reason for Visit * Reason Comments Back Pain Low. Fibromyalgia Encounter Details Date Type Department Care Team (Latest Contact Info) Description 06/06/2021 7:02 AM PUNCH MOLDER - 06/06/2021 11:59 PM [facility] Hospital Encounter [facility] [address] [facility] [address] [place], [place] [id number] Nancy Fernandez MD [address] [facility] [phone] [place] [address] Osteoarthritis of 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 (Primary Dx); Fibromyalgia; High risk medication use; Other secondary scoliosis, lumbar region Discharge Disposition: Discharge to home or self care Social History Tobacco Use Types Packs/Day Years Used Date Smoking Tobacco: Former Cigarettes Smokeless Tobacco: Never Alcohol Use Standard Drinks/Week Comments No 0 (1 standard drink = 0.6 oz pur e alcohol) denies AUDIT-C Answer Date Recorded Q1: How often do you have a drink containing alc ohol? Never 06/06/2021 Average Number of Drinks Not on file 021 Frequency of Binge Drinking Not on file 02/2021 Comments No Sex and Gender Information Value Date Recorded Sex Assigned at Not on file Legal Sex Female 2:03 AM PUNCH MOLDER Gender Identity Female 08/26/2020 6:26 AM PUNCH MOLDER Sexual Orientation Straight 08/26/2020 6: 26 AM PUNCH MOLDER documented as of this encounter Discharge Instructions * Patient Instructions* Bessy Mancuso RN - 06/06/2021 12:30 PM [facility] DISCHARGE INSTRUCTIONS MEDICATIONS: [x] Continue your current home medications Start: Hydrocodone refilled. [x] Notify your pharmacy for refill(s) 7 days before you are out of your medication. [] Opioid (Narcotic) Agreement signed and patient received copy. [] Side Effects of Opioid Medications given to patient Resume blood thinner: On Discontinue: PROCEDURE at today's visit: DIET: [x] Resume normal diet [] See [facility] Post Discharge Procedure Information Sheet ACTIVITY: [x] Resume normal activity [] See [facility] Post Discharge Procedure Information Sheet REFERRALS: Physical Therapy [] [facility] ([phone]) [] [facility] ([employer]aded [employer]ag[employer]) [] [facility] ([phone]) Option 1 [] [facility] ([employer]) [] Other: Behavior Medicine [] Pain Psychologist, [facility] Please call to schedule appointment [phone] or [phone] Diagnostic Test(s): EDUCATION provided on the following: [] Spinal Cord Stimulator Education and DVD. Vendor: FOLLOW UP APPOINTMENTS: [] Return as needed [x] Follow up appointment: [address] Fernandez. We will contact you the next business [...] INSTRUCTIONS before your next procedure: [] See [facility] Pre-Procedure Information Sheet [] Do not eat or drink for six (6) hours before the time/date of the procedure. [] Inquire with your prescribing provider if ok to hold blood thinner for ( ) days before procedure. [] Blood work required 2 hours before procedure: [] Club Manager needed for next procedure [] Pre Procedure instructions will be sent through [employer] or by phone two working days prior to procedure. *Need help with [employer]? Call [phone]. Patient provided information and repeated back with understanding. If you need to reach us: For any questions about your procedure, please call the Pain Management Center [phone] (M-F) (8am-4pm) If you need urgent attention after 5 pm and weekends: Call the [facility] Admin Dir at [phone] and ask for the Pain Service doctor market research consultant. H MOLDER documented in this encounter Medications at Time [...] nightly Total 12.5 ayt HS 11/01/19 23 aspirin 325 mg tablet Take 3 tablets by mouth daily 09/13/2020 12/20/19 22 baclofen (LIORESAL) 10 mg tablet Take 2 tablets (20 mg total) by mouth 4 (four) times a day Takes 1-2 tabs QID 240 tablet 11 03/02/2021 04/07/20 22 clobetasoL (TEMOVATE) 0.05 % ointment 04/06/2021 09/20/19 22 fexofenadine (EILEEN) 60 mg tablet Take 60 mg by mouth daily 05/09/20 22 HYDROcodone-aceta minophen (NORCO) 7.5-325 mg per tabletIndications :Pain Take 1 tablet by mouth 3 (three) times a day As need for pain 90 tablet 06/09/2021 07/01/20 21 magnesium oxide (MAG-OX) 500 mg (301.6 mg elemental) tablet Take 500 mg by mouth 2 (two) times a day 09/05/19 23 methocarbamoL (ROBAXIN) 500 mg tablet Take 2 tablets (1,000 mg total) by mouth 4 (four) times a day as needed for muscle spasms 720 tablet 1 01/04/2021 06/27/20 21 methylPREDNISolon e (MEDROL DOSEPACK) 4 mg Dosepack TAKE PER PACKAGE DIRECTIONS 2021 09/20/19 22 omega 4-nyr-det-fish oil 1,000 mg (120 mg-180 mg) capsule Take 1 capsule by mouth every morning 09/05/19 23 pimecrolimus (ELIDEL) 1 % cream 05/31/2021 09/20/19 22 turmeric root extract 500 mg capsuleIndication s:OTC Take 1,350 mg by mouth every morning 09/05/19 23 documented as of this encounter Ordered Prescriptions Prescription Sig Dispense Quantity Refills Last Filled Start Date End Date HYDROcodone-acetam inophen (NORCO) 7.5-325 mg per tabletIndications: Pain Take 1 tablet by mouth 3 (three) times a day As need for pain 90 tablet 06/09/2021 07/01/2021 documented in this encounter Discharge Disposition Disposition Code Departure Means Destination Discharge to home or self care documented in this encounter Progress Notes * Nancy Fernandez MD - 06/06/2021 12:30 PM CST Patient Name: Katrina Camarena : 1960 Today's Date: 06/06/2021 PCP: Rohan Rothman MD Referring: No ref. provider found This was a telemedicine visit with Katrina Camarena alone which took place via Real-time video connection (ownClouduch, Zoom or similar). During the visit, I was located in the office and the patient was located at her home [facility]. The patient visit started at 1224 and ended at 1236. My total encounter time on 06/06/2021 was 15 minutes which was spent in the activities documented in the note. This includes time spent prior to the visit and after the visit in direct care of the patient. This time does not include time spent in any separately reportable services. The patient: has been informed that the visit may not be secure and acknowledged the information. The option of participating in a telephone or video visit during the [facility] [place] [address] emergencywas explained to them. After being given an opportunity to ask questions about and discuss this type of visit, they verbally consented to proceeding with the telephone/video visit and understand thatthis service replaces an office visit. Chief Complaint Patient presents with ??? Back Pain Low. ??? Fibromyalgia HPI Historical Info: KATRINA CAMARENA is [...] - meloxicam - Savella?? - excedrine migraine ([id number]-[id number]) - baclofen - methocarbamol - duloxetine - [...] anterolisthesis at L3-L4 level. ? INTERVAL HISTORY (06/06/2021): Katrina Camarena returns to clinic today. She presents for ongoing management of low back pain. Overall has been doing pretty well, except the last couple of days have been pretty rough. Was almost feeling normal after physical therapy. Still doing her HEP, but doesn't have the same resources/ equipment at home as she had at physical therapy. Going to physical therapy at [facility]. Scanned note 04/15/21 reviewed. Anticipate discharge from physicaltherapy after next visit. Has been walking a lot[place]. In addition to low back pain, also has some new left anterior shoulder/ chest numbness. Occurs mostly when she leans forward. More numbness than pain, but it can be a little uncomfortable at times. Pain is at low back. Radiation: none Numbness: none Weakness: none Pain Assessment Pain Score: 6 Pain Location: Back (Lumbar) (Fibromyalgia.) Pain Descriptors: Aching,Other (Comment) (Gnawing.) Pain Frequency: Constant/continuous Last visit 03/02/21 we did the following: Intervention: none Medication adjustments: continue current meds for now Referrals: physical therapy Current Pain meds: Pain Medications acetaminophen ER (Tylenol 8 Hour) 650 mg 8 hr tablet Take 2 tablets by mouth 2 (two) times a day ARIPiprazole (ABILIFY) 15 mg tablet Take 7.5 mg by mouth daily aspirin 325 mg tablet Take 3 tablets by mouth daily baclofen (LIORESAL) 10 mg [...] times a dayas needed for muscle spasms methylPREDNISolone (MEDROL DOSEPACK) 4 mg Dosepack TAKE PER PACKAGE DIRECTIONS No results found. Review of Systems Review of Systems ROS all other systems negative other than as [...] MD Notes: -- CLOBETASOL (TEMOVATE) 0.05 % OINTMENT Authorizing Provider: Joaquín Beckman MD Notes: -- [...] Authorizing Provider: Nancy Fernandez MD Notes: -- METHYLPREDNISOLONE (MEDROL DOSEPACK) 4 MG DOSEPACK TAKE PER PACKAGE DIRECTIONS Authorizing Provider: Joaquín Beckman MD Notes: -- MONTELUKAST (SINGULAIR) 10 MG TABLET nightly Authorizing Provider: Joaquín Beckman MD Notes: -- OMEGA 5-DXG-FVA-FISH OIL 1,000 MG (120 MG-180 MG) CAPSULE daily Authorizing Provider: Joaquín Beckman MD Notes: -- PIMECROLIMUS (ELIDEL) 1 % CREAM Authorizing Provider: Joaquín Beckman MD Notes: -- TURMERIC ROOT EXTRACT 500 MG CAPSULE Take 1,500 mg by mouth daily Authorizing Provider: Joaquín Beckman MD Notes: -- ZOLPIDEM (AMBIEN) 10 MG TABLET TAKE 1 TABLET AT BEDTIME NEEDED FOR SLEEP. Authorizing Provider: Joaquín Beckman MD Notes: -- Modified Medications No medications on file Discontinued Medications ARIPIPRAZOLE (ABILIFY) 5 MG TABLET Take 1 1/2 tablets daily. Total 7.5 mg. Authorizing Provider: Joaquín Beckman MD Notes: -- BACLOFEN (LIORESAL) 10 MG TABLET Take 10 mg by mouth 3 (three) times a day Authorizing Provider: Joaquín Beckman MD Notes: -- CLOBETASOL (TEMOVATE) 0.05 % CREAM as needed Authorizing Provider: Joaquín Beckman MD Notes: -- DULOXETINE DR (CYMBALTA) 30 MG CAPSULE 30 mg Total dose 90 mg a day Authorizing Provider: Joaquín Beckman MD Notes: >> [place] LAMBERTOrquidea Mendez Jan 19, 2020 1:32 PM 30 mg and 60 mg tablet daily Total dose 90 mgs MAGNESIUM OXIDE (MAG-OX) 250 MG (150.8 MG ELEMENTAL) TABLET Take 750 mg by mouth daily Authorizing Provider: Joaquín Beckman MD Notes: -- Allergies Allergen Reactions ??? Decongestant Capsule Other (See comments) bladder spasms with decongestants Physical Exam There were no vitals filed for this visit. There is no height or weight on file to calculate BMI. Physical Exam Constitutional: Appearance: Normal appearance. Neurological: Mental Status: She is alert and [...] Osteoarthritis of 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 Yes ??? Fibromyalgia ??? High risk medication use ??? Other secondary scoliosis, lumbar region Plan 1. Interventions: none at this time 2. Medications: Continue current meds for now - hydrocodone/APAP refilled The patient shows no signs of aberrant [...] the lowest dose necessary. Chronic Opioid Therapy 06/06/2021 Current analgesics: hydrocodone/APAP 7.5/325 TID??(sometimes bid, usually [...] referrals needed at this current time. She has done well with physical therapy in the past. Discussed that I am happy to send a new referral whenever she is ready to return. Finished most recent course of physical therapy ~1mo ago, doing her HEP. 5. Follow-up: In 3mo for re-evaluation of the above regimen. No orders of the defined types were placed in this encounter. No follow-ups on file. Nancy Fernandez MD [...] notes from external sources Prescription drug management H MOLDER * Bessy Mancuso RN - 06/06/2021 12:30 PM CST 06/06/21 12:19 PM Patient requesting medication refill(s) for: Hydrocodone. Patient would like to address with the MD the following issues and/or concerns: no Reason for visit: Our physical space limits our ability to see patients in clinic while following the [facility] social distancing guidelines; a telehealth visit allows us to provide safe, essential and timely care for our patients. H MOLDER documented in this encounter Miscellaneous Notes * Addendum Note - Luisana Lozano - 06/06/2021 12:30 PM CSTEncounter addended by: Luisana Lozano on: 06/07/2021 7:47 AM Actions taken: Procedure log completed H MOLDER documented in this encounter Plan of Treatment Not on file documented as of this encounter Goals Goal Patient Goal Type Associated Problems Recent Progress Patient-Stated? Author CCM Chronic Pain Care Plan Chronic Care Management Improving( 10:05 AM PUNCH MOLDER) Bessy Gayle, RN Note: Problem: Chronic Pain [...] myelopathy- Primary Fibromyalgia Unspecified myalgia and myositis High risk medication use Other secondary scoliosis, lumbar region documented in this encounter Discontinued Medications Medication Sig Discontinue Reason Start Date End Da te DULoxetine DR (CYMBALTA) 30 mg capsule 30 mg Total dose 90 mg a day Duplicate order 08/13/2018 06/06/2021 baclofen (LIORESAL) 10 mg tablet Take 10 mg by mouth 3 (three) times a day Duplicate order 06/06/2021 ARIPiprazole (ABILIFY) 5 mg tablet Take 1 1/2 tablets daily. Total 7.5 mg. Duplicate order 06/06/2021 magnesium oxide (MAG-OX) 250 mg (150.8 mg elemental) tabletIndications:hypoma gnesemia Take 750 mg by mouth daily Duplicate order 06/06/2021 clobetasol (TEMOVATE) 0.05 % cream as needed Duplicate order 06/13/2019 06/06/2021 HYDROcodone-acetaminophe n (NORCO) 7.5-325 mg per tabletIndications:Pain Take 1 tablet by mouth 3 (three) times a day As need for pain Reorder 05/02/2021 06/06/2021 documented as of this encounter Historical Medications * This list may reflect changes made after this encounter. DULoxetine DR (CYMBALTA) 60 mg capsuleIndicatio ns:Anxiety with Depression Take 1 capsule (60 mg total) by mouth 2 (two) times a day clobetasoL (TEMOVATE) 0.05 % ointment 04/06/2021 2 pimecrolimus (ELIDEL) 1 % cream 05/31/2021 2 methylPREDNISolo ne (MEDROL DOSEPACK) 4 mg Dosepack TAKE PER PACKAGE DIRECTIONS 2021 2 magnesium oxide (MAG-OX) 500 mg (301.6 mg elemental) tablet Take 500 mg by mouth 2 (two) times a day 3 ARIPiprazole (ABILIFY) 15 mg tablet Take 7.5 mg by mouth nightly Total 12.5 ayt HS 3 added in this encounter Care Teams Specimen Accessioner Relationship Specialty Start Date End Date Rohan Rothman MD [address] [place] [address] PCP - General 07/20/20 05/12/24 Reanna Polanco RN Registered Nurse 07/07/19 documented as of this encounter
--- OUTSIDE RECORDS SUMMARY | 2024-07-28 01:07 | XMS_ITS | Encounter Summary ---
Author Organization [facility] Healthcare Address [address] [place] [address] Care Team Providers Care Puppy Trainer Name Role Phone Reanna Polanco RN [facility] Rohan Salvador MD Primary Care Provider Reason for Visit * Reason Onset Date Comments CALL PHARMACY 01/04/2021 Encounter Details Date Type Department Care Team (Late st Contact Info) Description 01/04/2021 Telephone [facility] [address] [facility] [address] [place], [place] [phone] Nancy Fernandez MD [address] [facility] [phone] [place], [place] [id number] CALL PHARMACY Social History Tobacco Use Types Packs/Day Years [...] on file Legal Sex Female 2:03 AM FELLING BUCKING SUPERVISOR Gender Identity Female 08/26/2020 6:26 AM FELLING BUCKING SUPERVISOR Sexual Orientation Straight 08/26/2020 6: 26 AM FELLING BUCKING SUPERVISOR documented as of this encounter Miscellaneous Notes * Telephone Encounter - Adamaris Lan RN - 01/04/2021 1:44 PM CDT LM at pharmacy to cancel both scripts as ins won't cover Needs to go to [facility] documented in this encounter Plan of Treatment Not on file documented as of this encounter Goals Goal Patient Goal Type Associated Problems Recent Progress Patient-Stated? Author CCM Chronic Pain Care Plan Chronic Care Management Improving( 10:05 AM FELLING BUCKING SUPERVISOR) No Bessy Mancuso RN Note: Problem: Chronic Pain Goals: 1. Minimize further functional decline 2. Maximize quality of life 3. Control pain Strategies: - Activity/exercise program recommendation - Conservative stepwise pain medicine strategy with multi-disciplinary approach - Recommend healthy lifestyle strategies and compensatory methods as needed documented as of this encounter Visit Diagnoses Not on filedocumented in this encounter Care Teams Puppy Trainer Relationship Specialty Start Date End Date Rohan Rothman MD [address] [facility] [address] [place] [id number] PCP - General 07/20/20 05/12/24 Reanna Polanco RN Registered Nurse 07/07/19 documented as of this encounter
--- OUTSIDE RECORDS SUMMARY | 2024-07-28 01:07 | XMS_ITS | Encounter Summary ---
Author Organization [facility] Healthcare Address [address] [place] [address] Care Team Providers Care Abrasives Sales Representative Name Role Phone Reanna Polanco RN [facility] Rohan Salvador MD Primary Care Provider Reason for Visit * Reason Comments Back Pain Low. Neck Pain Radiating to bilater al shoulders. 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 - 09/20/2021 11:59 PM HIGH SCHOOL DRAFTING TEACHER Hospital Encounter [facility] [address] [facility] [address] [place] [address] Nancy Fernandez MD [address] [facility] [phone] [place] [address] Other secondary scoliosis, lumbar region (Primary Dx); Chronic bilateral low back pain without sciatica; Chronic use of opiate drug for therapeutic purpose; Cervicalgia Discharge Disposition: Discharge to home or [...] on file Legal Sex Female 2:03 AM HIGH SCHOOL DRAFTING TEACHER Gender Identity Female 08/26/2020 6:26 AM HIGH SCHOOL DRAFTING TEACHER Sexual Orientation Straight 08/26/2020 6: 26 AM HIGH SCHOOL DRAFTING TEACHER documented as of this encounter Discharge Instructions * Patient Instructions* Bessy Mancuso RN - 09/20/2021 8:00 AM HIGH SCHOOL DRAFTING TEACHER [facility] DISCHARGE INSTRUCTIONS MEDICATIONS: [...] ACTIVITY: [x] Resume normal activity [] See [facility] Post Discharge Procedure Information Sheet REFERRALS: Physical Therapy [] [facility] ([phone]) [] [facility] ([employer]) [] [facility] ([phone]) Option 1 [] [facility] ([employer]) [] [facility] ([phone]) [x] Other: 2 copies of PT order mailed to patient's home. Behavior Medicine [] Pain Psychologist, [facility] Please call to schedule appointment [phone] or [phone] Diagnostic Test(s): X-ray order mailed to patient's home. May get Radiographs performed in Radiation/X-Ray 6th floor, [address]. EDUCATION provided on the following: [] Spinal Cord Stimulator Education and DVD. Vendor: FOLLOW UP APPOINTMENTS: [] Return as needed [x] Follow up appointment: 3 month in office follow up with Dr. Fernandez. Patient can come in sooner if she wants trigger point injections. 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 *Need help with [employer]? Call [phone]. Patient provided information and repeated back with understanding. If you need to reach us: For any questions about your procedure, please call the Pain Management Center [phone] (M-F) (8am-4pm) If you need urgent attention after 5 pm and weekends: Call the [facility] Canteen Attendant at [phone] and ask for the Pain Service doctor emergency medicine nurse practitioner. SCHOOL DRAFTING TEACHER documented in this encounter Medications at Time [...] day As need for pain 90 tablet 09/07/2021 10/03/19 22 magnesium oxide (MAG-OX) 500 mg (301.6 [...] by mouth daily 08/25/2021 06/05/20 22 omega 2-fpa-ncx-fish oil 1,000 mg (120 mg-180 mg) capsule [...] Progress Notes * Nancy Fernandez MD - 09/20/2021 8:00 AM CST Patient Name: Katrina Camarena : 1960 Today's Date: 09/20/2021 PCP: Rohan Rothman MD Referring: No ref. provider found This was a telemedicine visit with Katrina Camarena alone which took place via Real-time video connection (InTouch, Zoom or similar). During the visit, I was located in the office and the patient was located her home in the [facility]. The patient visit started at 0746 and ended at 0801. My totalencounter time on 09/20/2021 was 20 minutes which was spent in the activities [...] a telephone or video visit during the [address] explained to them. After being given an opportunity to ask questions about and discuss this type of visit, they verbally consented to proceeding with the telephone/video visit and understand thatthis service replaces an office visit. Chief Complaint Patient presents with ??? Back Pain Low. ??? Neck Pain Radiating to bilateral shoulders. ??? Fibromyalgia HPI Historical Info: KATRINA CAMARENA [...] - meloxicam - Savella?? - excedrine migraine ([id number]) - baclofen - methocarbamol - duloxetine - [...] anterolisthesis at L3-L4 level. ? INTERVAL HISTORY (09/20/2021): Katrina Camarena returns to clinic today. She presents for ongoing management of low back, neck shoulders and fibro pain. Not doing well at all. Says that the pain levels have been up a lot. Worst pain is the low back, but it seems to flare up the fibro pain. Feels like muscle spasms. Walking used to help but now seems to make things worse. Muscle relaxants don't help enough. Used to help more. She is taking baclofen 20mg qid and methocarbamol 1000mg qid. Used to be able to ignore the pain but recently hasn't been able to ignore it. Found something online about scoliosis - a place in [facility] - specialized in scoliosis. Pain is at low back, neck. Radiation: shoulders. No radiation to the leg Numbness: sometimes anterior shoulder Weakness: none Pain Assessment Pain Score: 7 Pain Location: Back (Lumbar) (Neck radiating to bilateral shoulders. Fibromyalgia.) Pain Descriptors: Cramping, Other (Comment), Burning, Aching (Gnawing.) Pain Frequency: Constant/continuous Her ADLs are difficult, but manageable on her own. Last visit 06/06/21 we did the following: Intervention: none Medication adjustments: continue current meds for now Referrals: She has done well with physical therapy in the past. Discussed that I am happy to send anew referral whenever she is ready to return. Finished most recent course of physical therapy ~1mo ago, doing her HEP. Current Pain meds: Pain Medications acetaminophen ER [...] Provider: Joaquín Beckman MD Notes: -- OMEGA 6-SRU-SBR-FISH OIL 1,000 MG (120 MG-180 MG) CAPSULE [...] Medications No medications on file Discontinued Medications CLOBETASOL (TEMOVATE) 0.05 % OINTMENT Authorizing Provider: Joaquín Beckman MD Notes: -- METHYLPREDNISOLONE (MEDROL DOSEPACK) 4 [...] BMI. Physical Exam Constitutional: Appearance: Normal appearance. HENT: Head: Normocephalic and atraumatic. Pulmonary: Effort: Pulmonary effort is normal. Neurological: Mental Status: She is alert and [...] Office Note. Encounter Diagnoses Name Primary? Other secondary scoliosis, lumbar region Yes ??? Chronic bilateral low back pain without sciatica ??? Chronic use of opiate drug for therapeutic purpose ??? Cervicalgia Plan 1. Interventions: Consider TPI - lumbar paraspinal muscles 2. Medications: Continue current meds for now The patient shows [...] the lowest dose necessary. Chronic Opioid Therapy 09/20/2021 ?Current analgesics: hydrocodone/APAP 7.5/325 TID??(sometimes bid, usually tid) Daily dose (MME): 22.5mg/day Benzo: no Meds locked up: She keeps in an unmarked box in the closet and is sure to put them out of sight if anyone is coming into her home (family members, cleaning crew, etc) UDS:??11/30/20 - consistent and continue Plan: continue current meds for now 3. Imaging: scoliosis XRs 4. Referral: PT - she would like a Rx to go to her regular physical therapist at [facility]. She is also going to try someone who specializes in scoliosis who is based in [facility] once there are openings in that practice. 5. Follow-up: In 3mo for re-evaluation of the above regimen. Orders Placed This Encounter Procedures ??? XR Scoliosis 6 or More Views Standing Status: Future Standing Expiration Date: 09/20/2022 Order Specific Question: Clinical question to be answered: Answer: increased back and neck pain, scoliosis on lumbar xrays Order Specific Question: Where should this order be performed? Answer: External Order [171] ??? Ambulatory referral order to Physical Therapy - Standing Status: Future Standing Expiration Date: 09/20/2022 Referral Priority: Routine Referral Type: Consultation Referral Reason: Specialty Services Required Referral Location: External Order Requested Specialty: Physical Therapy Number of Visits Requested: 24 No follow-ups on file. Nancy Fernandez MD ---- The visit is deemed to have MODERATE LEVEL of medical decision making. MDM type Number and complexity of problems addressed Amount/complexity of Data to be reviewed and analyzed Risk of complications/ morbidity of patient management Moderate 2 or more stable, chronic illnesses Imaging ordered Prescription drug management SCHOOL DRAFTING TEACHER * Bessy Mancuso RN - 09/20/2021 8:00 AM CST 09/20/21 7:42 AM Patient requesting medication refill(s) for: no Patient would like to address with the MD the following issues and/or concerns: no Reason for visit: Our physical space limits our ability to see patients in clinic while following the [facility] social distancing guidelines; a telehealth visit allows us to provide safe, essential and timely care for our patients. SCHOOL DRAFTING TEACHER documented in this encounter Miscellaneous Notes * Addendum Note - Sandrita Mariano - 09/20/2021 8:00 AM CSTEncounter addended by: Sandrita Mariano on: 09/21/2021 8:13 AM Actions taken: Procedure log completed SCHOOL DRAFTING TEACHER documented in this encounter Plan of Treatment Not on file documented as of this encounter Goals Goal Patient Goal Type Associated Problems Recent Progress Patient-Stated? Author CCM Chronic Pain Care Plan Chronic Care Management Improving( 10:05 AM HIGH SCHOOL DRAFTING TEACHER) No Bessy Mancuso, RN Note: Problem: Chronic Pain Goals: 1. Minimize further functional decline 2. Maximize quality of life 3. Control pain Strategies: - Activity/exercise program recommendation - Conservative stepwise pain medicine strategy with multi-disciplinary approach - Recommend healthy lifestyle strategies and compensatory methods as needed documented as of this encounter Visit Diagnoses Diagnosis Other secondary scoliosis, lumbar region- Primary Chronic bilateral low back pain without sciatica Chronic use of opiate drug for therapeutic purpose Cervicalgia documented in this encounter Discontinued Medications Medication Sig Discontinue Reason Start Date End Da te clobetasoL (TEMOVATE) 0.05 % ointment Therapy completed 04/06/2021 09/20/2021 methylPREDNISolone (MEDROL DOSEPACK) 4 mg Dosepack TAKE PER PACKAGE DIRECTIONS Therapy completed 2021 09/20/2021 pimecrolimus (ELIDEL) 1 % cream Therapy completed 05/31/2021 09/20/2021 documented as of this encounter Historical Medications * This list may reflect changes made after this encounter. ruxolitinib (Opzelura) 1.5 % cream Apply 1 application topically 2 (two) times a week Mon and Fri. 09/06/2021 3 metoprolol XL (TOPROL-XL) 25 mg extended release tablet Take 1 tablet by mouth daily 08/25/2021 2 added in this encounter Care Teams Abrasives Sales Representative Relationship Specialty Start Date End Date Rohan Rothman MD [address] [facility] [address] [place] [address] PCP - General 07/20/20 05/12/24 Reanna Polanco, RN Registered Nurse 07/07/19 documented as of this encounter
--- OUTSIDE RECORDS SUMMARY | 2024-07-28 01:07 | XMS_ITS | Encounter Summary ---
Author Organization [facility] Healthcare Address [address] [place] [address] Care Team Providers Care Apartment Leasing Agent Name Role Phone Reanna Polanco RN [facility] Rohan Salvador MD Primary Care Provider Reason for Referral * Diagnostic Imaging (Routine) - Closed Specialty Diagnoses / Procedures Referred By Contac t Referred To Contact Radiology Diagnoses Pain of lumbar facet joint Chronic bilateral low back pain without sciatica Procedures MRI Lumbar Spine WO Contrast Nancy Fernandez MD [address] [facility] [address] [facility] [place] [place] [phone] [place] [address] Phone: tel: fax: [address] [phone] Referral ID Status Reason Start Date Expiration Date Visits Re quested Visits Authorized [id number] Closed 11/04/2020 05/03/2021 1 1 * Diagnostic Imaging (Routine) - Closed Specialty Diagnoses / Procedures Referred By Contac t Referred To Contact Diagnoses Pain of lumbar facet joint Chronic bilateral low back pain without sciatica Procedures X-ray lumbar spine complete with bending Nancy Fernandez MD [address] [facility] [address] [facility] [place] [phone] [place] [address] Phone: tel: fax: [facility] [address] [facility] [place] [address] Referral ID Status Reason Start Date Expiration Date Visits Re quested Visits Authorized [id number] Closed 10/26/2020 11/25/2021 1 1 Reason for Visit * Reason Comments Back Pain Low. Radiating to bi lateral hips. Right worse than left. Encounter Details Date Type Department Care Team (Latest Contact Info) Description 10/26/2020 2:03 PM CDT - 10/26/2020 11:59 PM CDT Hospital Encounter [facility] at the [facility] [address] [facility] [address] [place] [address] Nancy Fernandez MD [address] [facility] [address] [facility] [place] [phone] [place] [address] Pain of lumbar facet joint (Primary Dx); Chronic bilateral low back pain without sciatica [...] on file Legal Sex Female 2:03 AM TRIAL MGR Gender Identity Female 08/26/2020 6:26 AM TRIAL MGR Sexual Orientation Straight 08/26/2020 6: 26 AM TRIAL MGR documented as of this encounter Discharge Instructions * Patient Instructions* Bessy Mancuso RN - 10/26/2020 2:30 PM CDT [facility] DISCHARGE [...] DIET: [x] Resume normal diet [] See [facility] Post Discharge Procedure Information Sheet ACTIVITY: [x] Resume normal activity [] See [facility] Post Discharge Procedure Information Sheet REFERRALS: Physical Therapy [] [facility] Physical Therapy ([phone]) [] [facility]) [] [facility] ([phone]) [] [facility]) [] Other: Behavior Medicine [] Pain Psychologist, [facility] Pain Psychology Please call to schedule appointment [phone] or [phone] Diagnostic Test(s): Lumbar spine x-rays and MRI. EDUCATION provided on the following: [] Spinal Cord Stimulator Education and DVD. Vendor: FOLLOW UP APPOINTMENTS: [] Return as needed [x] Follow up appointment: 2-3 weeks in office [address] Dr. Fernandez after MRI and x-rays are done. We will contact you the next day [...] INSTRUCTIONS before your next procedure: [] See [facility] Pre-Procedure Information Sheet [] Do not eat or drink for six (6) hours before the time/date of the procedure. [] Inquire with your prescribing provider if ok to hold blood thinner for ( ) days before procedure. [] Blood work required 2 hours before procedure: [] Parts Sales Counterperson needed for next procedure [] Pre Procedure instructions will be sent through [employer] or by phone two working days prior to procedure. *Need help with [employer]? Call [phone]. Patient provided information and repeated back with understanding. If you need to reach us: For any questions about your procedure, please call the Pain Management Center [phone] (M-F) (8am-4pm) If you need urgent attention after 5 pm and weekends: Call the [facility] at [phone] and ask for the Pain Service doctor contract preparer. documented in this encounter Medications at Time [...] day As need for pain 90 tablet 10/11/2020 11/04/19 21 magnesium oxide (MAG-OX) 250 mg (150.8 mg elemental) tabletIndications :hypomagnesemia Take 750 mg by mouth daily 06/06/20 21 methocarbamoL (ROBAXIN) 500 mg tablet Take 2 tablets (1,000 mg total) by mouth 4 (four) times a day as needed for muscle spasms 720 tablet 1 06/07/2020 01/05/20 21 omega 0-mus-adh-fish oil 1,000 mg (120 mg-180 mg) capsule Take 1 capsule by mouth every morning 09/05/19 23 turmeric root extract 500 mg capsuleIndication s:OTC Take 1,350 mg by mouth every morning 09/05/19 23 documented as of this encounter Discharge Disposition Disposition Code Departure Means Destination Discharge to home or self care documented in this encounter Progress Notes * Nancy Fernandez MD - 10/26/2020 2:30 PM CDT Patient Name: Katrina Camarena : 1960 Today's Date: 10/26/2020 PCP: Rohan Rothman MD Referring: No ref. provider found This was a telemedicine visit with Katrina Camarena alone which took place via Real-time video connection (InTouch, Zoom or similar). During the visit, I was located in the office and the patient was located at her home in the [facility]. The patient visit started at 1431 and ended at 1442. My total encounter time on 10/26/2020 was 15 minutes which was spent in the activities documented in the note. This includes time spent prior to the visit and after the visit in direct care of the patient. This time does not include time spent in any separately reportable services.. The patient: has been informed that the visit may not be secure and acknowledged the information. The option of participating in a telephone or video visit during the COVID-19 public health emergencywas explained to them. After being given an opportunity to ask questions about and discuss this type of visit, they verbally consented to proceeding with the telephone/video visit and understand thatthis service replaces an office visit. Chief Complaint Patient presents with ??? Back Pain Low. Radiating to bilateral hips. Right worse than left. HPI Historical Info: KATRINA CAMARENA is a patient initially seen in the Pain Center in July [address] Iglesias for her ongoing muscular pain in the neck, shoulder, upper back and low back. ? Past. current meds: ?? - nortriptyline/amitriptyline- urinary retention. ?? - Lyrica did not work - Gabapentin caused side effects - T#3 - tramadol - cyclobenzaprine??- too drowsy - Lidoderm - meloxicam - Savella - excedrine migraine ([id number]) - baclofen - methocarbamol - duloxetine - hydrocodone/APAP 06/10/19: Has been taking meloxicam for a [...] bilateral SI injection - some benefit ?? INTERVAL HISTORY (10/26/2020): Katrina Camarena returns to clinic today. She presents for ongoing management of low back and leg pain. Says that right after she finished physical therapy she felt great. Has continued with home physical therapy exercises. Stamina and distance that she is able to walk have improved. Able to walk up to1/2 mi. Some days has set backs that are really bad. Some fibromyalgia flares- CBD cream helps with this. Pain is at the middle of the low back. Feels like the muscles along the spine are tensing up. Muscle relaxants help quite a bit. Sometimes the pain is more in the hip area- laterally. Pain Assessment Pain Score: 7 Pain Location: Back (Lumbar)(Radiating to bilateral hips. Right worse than left.) Pain Descriptors: Aching, Other (Comment), Tightness(Gnawing.) Pain Frequency: Frequently Last visit 08/03/20 we did the following: Intervention: none Medication adjustments: trying to cut back on hydrocodone - was going to try occasionally taking 1/2 tab Referrals: none Current Pain meds: Pain Medications [...] Provider: Joaquín Beckman MD Notes: -- CETIRIZINE (ZYRTEC) 10 MG TABLET Take 1 tablet by mouth daily Authorizing Provider: Joaquín Beckman MD Notes: -- CLOBETASOL (TEMOVATE) 0.05 % CREAM as needed Authorizing Provider: Joaquín Beckman MD Notes: -- DULOXETINE DR (CYMBALTA) 30 MG CAPSULE 30 mg Total dose 90 mg a day Authorizing Provider: Joaquín Beckman MD Notes: >> MO LAMBERT Jan 19, 2020 1:32 PM 30 mg [...] Provider: Joaquín Beckman MD Notes: -- OMEGA 1-BIO-LOE-FISH OIL 1,000 MG (120 MG-180 MG) CAPSULE [...] Medications ARIPIPRAZOLE (ABILIFY) 5 MG TABLET Take 5 mg by mouth daily Authorizing Provider: Joaquín Beckman MD Notes: -- Allergies Allergen Reactions ??? Decongestant Capsule Other (See comments) bladder spasms with decongestants Physical Exam There were no vitals filed for this visit. There is no height or weight on file to calculate BMI. Physical Exam Assessment The above note documents my personal evaluation of this patient. In addition, I have reviewed and confirmed with the patient and nurse the supportive information documented in today's scanned PatientHealth Questionnaire and Office Note. Encounter Diagnoses Name Primary? Pain of lumbar facet joint Yes ??? Chronic bilateral low back pain without sciatica Plan 1. Interventions: none at this time. 2. Medications: Continue current meds for now [...] the lowest dose necessary. Chronic Opioid Therapy 10/26/2020 Current analgesics: hydrocodone/APAP 7.5/325 TID (sometimes bid, usually tid) Daily dose (MME): 22.5mg/day Benzo: no Meds locked up: She keeps in an unmarked box in the closet and is sure to put them out of sight if anyone is coming into her home (family members, cleaning crew, etc) UDS: 12/12/18 Plan: continue current meds for now. 3. Imaging: lumbar xr and mri ordered today given ongoing, activity- limiting low back pain. Has completed PT within the last 6 mo. Taking medications. Doing HEP 4. Referral: No referrals needed at this current time. 5. Follow-up: after imaging. Orders Placed This Encounter Procedures ??? X-ray lumbar spine complete with bending Standing Status: Future Standing Expiration Date: 02/25/2021 Order Specific Question: Is the patient ? Answer: No Order Specific Question: Where should this order be performed? Answer: [facility] [[id number]] ??? MRI Lumbar Spine WO Contrast Standing Status: Future Standing Expiration Date: 10/26/2021 Order Specific Question: Is the patient ? Answer: No Order Specific Question: Is patient claustrophobic? Answer: No Order Specific Question: Is patient able to lie flat for at least one hour? Answer: Yes Order Specific Question: Where should this order be performed? Answer: [facility] [[id number]] Order Specific Question: Does the patient have a cardiovascular implantable electronic device, pacemaker, or implantable cardioverter-defibrillator? Answer: No Order Specific Question: Does the patient require anesthesia? Answer: No Order Specific Question: Does the patient have a programmable shunt? Answer: No No follow-ups on file. Nancy Fernandez MD --- The visit is deemed to have MODERATE LEVEL of medical decision making. MDM type Number and complexity of problems addressed Amount/complexity of Data to be reviewed and analyzed Risk of complications/ morbidity of patient management Moderate 2 or more stable, chronic illnesses - Prescription drug management * Bessy Mancuso RN - 10/26/2020 2:30 PM CDT 10/26/20 2:25 PM Patient requesting medication refill(s) for: no Patient would like to address with the MD the following issues and/or concerns: no Reason for visit: Our physical space limits our ability to see patients in clinic while following the [facility] social distancing guidelines; a telehealth visit allows us to provide safe, essential and timely care for our patients. * Slime Hansen - 10/26/2020 2:30 PM CDT MRI 11/07/2020 Fv2 11/30/2020 documented in this encounter Miscellaneous Notes * Addendum Note - Sandrita Mariano - 10/26/2020 2:30 PM CDTEncounter addended by: Sandrita Mariano on: 10/26/2020 5:25 PM Actions taken: Procedure log completed documented in this encounter Plan of Treatment Not on file documented as of this encounter Goals Goal Patient Goal Type Associated Problems Recent Progress Patient-Stated? Author CCM Chronic Pain Care Plan Chronic Care Management Improving( 10:05 AM TRIAL MGR) No Bessy Mancuso RN Note: Problem: Chronic Pain Goals: 1. Minimize further functional decline 2. Maximize quality of life 3. Control pain Strategies: - Activity/exercise program recommendation - Conservative stepwise pain medicine strategy with multi-disciplinary approach - Recommend healthy lifestyle strategies and compensatory methods as needed documented as of this encounter Results * X-ray lumbar spine [...] IMG XR PROCEDURES Final Re sult * MRI Lumbar Spine WO Contrast (11/07/2020 1:00 PM CDT) Anatomical Region Laterality Modality Spine N/A Magnetic Resonan ce 11/07/2020 2:10 PM CDT Impressions 11/07/2020 2:10 PM CDT Advanced degenerative disc disease at L3-L4 and L4-L5 levels with lateral listhesis at these levels, and anterolisthesis at L3-L4 level. Additional multilevel degenerative changes, as described above. Electronically signed by: Travis Garcia M.D. Narrative 11/07/2020 2:10 PM CDT EXAMINATION: Magnetic resonance imaging (MRI) of the lumber spine without contrast. HISTORY: Chronic bilateral low back pain without sciatica. TECHNIQUE: Multiplanar multi-weighted MRI of the lumbar spine was performed without intravenous contrast using the standard lumbar spine protocol. COMPARISON: None available. FINDINGS: There is levocurvature of lumbar spine with mild lateral translation of L3 over L4 and L4 over L5. ??Kyphosis of lumbar spine is noted centered around L3-L4 level, with mild anterolisthesis of L3 over L4. A combination of Modic type I and type II endplate degeneration is noted along L3-L4 and L4-L5 levels. A Schmorl's node is seen along the inferior endplate of L2. ??There are no compression fractures. The conus medullaris terminates at the level of L1-L2. The distal spinal cord signal intensity is normal. Disc desiccation is observed throughout the lumbar spine, with marked associated disc height loss at L3-L4 and L4-L5 levels. Annular fissures identified at L3-L4, L4-L5, L5-S1, and L2-L3 levels. Limited views of the abdomen and pelvis show no soft tissue abnormality. The aorta is normal. L1-L2: A left foraminal and extraforaminal disc protrusion is present. There is no facet arthropathy. There is mild left neuroforaminal stenosis. There is no spinal canal stenosis. L2-L3: ??A disc bulge is present, asymmetric towards the left. There is mild bilateral facet arthropathy. There is no neuroforaminal stenosis. There is no spinal canal stenosis L3-L4: ??There is uncovering of intervertebral disc with a small disc osteophyte complex. There is moderate bilateral facet arthropathy. There is mild to moderate right neuroforaminal stenosis. There is mild spinal canal stenosis L4-L5: ??A disc osteophyte complex is present. There is moderate bilateral facet arthropathy. There is mild right and moderate to severe left neuroforaminal stenosis. There is mild spinal canal stenosis L5-S1: ??The disc is normal in configuration. There is mild bilateral facet arthropathy. There is no neuroforaminal stenosis. There is no spinal canal stenosis Procedure Note Travis Garcia MD - 11/07/2020 EXAMINATION: Magnetic resonance imaging (MRI) of the lumber spine without contrast. HISTORY: Chronic bilateral low back pain without sciatica. TECHNIQUE: Multiplanar multi-weighted MRI of the lumbar spine was performed without intravenous contrast using the standard lumbar spine protocol. COMPARISON: None available. FINDINGS: There is levocurvature of lumbar spine with mild lateral translation of L3 over L4 and L4 over L5. Kyphosis of lumbar spine is noted centered around L3-L4 level, with mild anterolisthesis of L3 over L4. A combination of Modic type I and type II endplate degeneration is noted along L3-L4 and L4-L5 levels. A Schmorl's node is seen along the inferior endplate of L2. There are no compression fractures. The conus medullaris terminates at the level of L1-L2. The distal spinal cord signal intensity is normal. Disc desiccation is observed throughout the lumbar spine, with marked associated disc height loss at L3-L4 and L4-L5 levels. Annular fissures identified at L3-L4, L4-L5, L5-S1, and L2-L3 levels. Limited views of the abdomen and pelvis show no soft tissue abnormality. The aorta is normal. L1-L2: A left foraminal and extraforaminal disc protrusion is present. There is no facet arthropathy. There is mild left neuroforaminal stenosis. There is no spinal canal stenosis. L2-L3: A disc bulge is present, asymmetric towards the left. There is mild bilateral facet arthropathy. There is no neuroforaminal stenosis. There is no spinal canal stenosis L3-L4: There is uncovering of intervertebral disc with a small disc osteophyte complex. There is moderate bilateral facet arthropathy. There is mild to moderate right neuroforaminal stenosis. There is mild spinal canal stenosis L4-L5: A disc osteophyte complex is present. There is moderate bilateral facet arthropathy. There is mild right and moderate to severe left neuroforaminal stenosis. There is mild spinal canal stenosis L5-S1: The disc is normal in configuration. There is mild bilateral facet arthropathy. There is no neuroforaminal stenosis. There is no spinal canal stenosis IMPRESSION: Advanced degenerative disc disease at L3-L4 and L4-L5 levels with lateral listhesis at these levels, and anterolisthesis at L3-L4 level. Additional multilevel degenerative changes, as described above. Electronically signed by: Travis Garcia M.D. us Nancy Fernandez MD IMG MRI PROCEDURES Final R esult documented in this encounter Visit Diagnoses Diagnosis Pain of lumbar facet joint- Primary Chronic bilateral low back pain without sciatica Pain of lumbar facet joint Chronic bilateral low back pain without sciatica Pain of lumbar facet joint Chronic bilateral low back pain without sciatica documented in this encounter Discontinued Medications Medication Sig Discontinue Reason Start Date End Da te ARIPiprazole (ABILIFY) 5 mg tablet Take 5 mg by mouth daily Duplicate order 10/26/2020 documented as of this encounter Historical Medications * This list may reflect changes made after this encounter. ARIPiprazole (ABILIFY) 5 mg tablet Take 1 1/2 tablets daily. Total 7.5 mg. 06/06/2021 aspirin 325 mg tablet Take 3 tablets by mouth daily 09/13/2020 12/19/2021 acetaminophen ER (TYLENOL) 650 mg 8 hr tabletIndications :Pain Take 1,300 mg by mouth 2 (two) times a day as needed 07/11/2020 08/12/2022 added in this encounter Care Teams Apartment Leasing Agent Relationship Specialty Start Date End Date Rohan Rothman MD [address] [facility] [address] [place] [id number] PCP - General 07/20/20 05/12/24 Reanna Polanco, RN Registered Nurse 07/07/19 documented as of this encounter
--- OUTSIDE RECORDS SUMMARY | 2024-07-28 01:07 | XMS_ITS | Encounter Summary ---
Author Organization [facility] Healthcare Address [address] [place] [address] Care Team Providers Care Phlebotomist Associate Name Role Phone Reanna Polanco RN [facility] Rohan Salvador MD Primary Care Provider Encounter Details Date Type Department Care Team (Late st Contact Info) Description 11/30/2020 5:35 PM CDT Lab [address] [address] Social History Tobacco Use Types Packs/Day [...] on file Legal Sex Female 2:03 AM MANAGEMENT EXPERT Gender Identity Female 08/26/2020 6:26 AM MANAGEMENT EXPERT Sexual Orientation Straight 08/26/2020 6: 26 AM MANAGEMENT EXPERT documented as of this encounter Plan of Treatment Not on file documented as of this encounter Goals Goal Patient Goal Type Associated Problems Recent Progress Patient-Stated? Author CCM Chronic Pain Care Plan Chronic Care Management Improving( 10:05 AM MANAGEMENT EXPERT) No Bessy Mancuso, RN Note: Problem: Chronic Pain Goals: 1. Minimize further functional decline 2. Maximize quality of life 3. Control pain Strategies: - Activity/exercise program recommendation - Conservative stepwise pain medicine strategy with multi-disciplinary approach - Recommend healthy lifestyle strategies and compensatory methods as needed documented as of this encounter Procedures Procedure Name Priority Date/Time Associated Diagnosis Comments TARGET OPIOID SCREEN BY ASSOCIATE PROFESSOR OF BIOSTATISTICS Routine 11/30/2020 4:39 PM CDT DRUGS OF ABUSE SCREEN, URINE WITH REFLEX CONFIRMATION Routine 11/30/2020 4:39 PM CDT documented in this encounter Results * Targeted Opioid Screen, Ur (11/30/2020 4:39 PM CDT) [facility] Pain mgt 6-Acetylmorphine, Ur Not Detected CutOff 10 ng/mL [facility] Pain mgt Buprenorphine, Ur Not Detected CutOff 5 ng/mL [facility] Pain mgt Buprenorphine metabolite (Norbuprenorphine), Ur Not Detected CutOff 5 ng/mL [facility] Pain mgt Codeine, Ur Not Detected CutOff 25 ng/mL [facility] Pain mgt Hydrocodone, Ur Detected CutOff 25 ng/mL [facility] Pain mgt Hydromorphone, Ur Not Detected CutOff 25 ng/mL [facility] Pain mgt Methadone, Ur Not Detected CutOff 25 ng/mL [facility] Pain mgt Methadone Metabolite (EDDP), Ur Not Detected CutOff 25 ng/mL [facility] Pain mgt Morphine, Ur Not Detected CutOff 25 ng/mL [facility] Pain mgt Oxycodone, Ur Not Detected CutOff 25 ng/mL [facility] Pain mgt Oxymorphone, Ur Not Detected CutOff 25 ng/mL [facility] Pain mgt Tapentadol, Ur Not Detected CutOff 25 ng/mL [facility] Pain mgt Tramadol, Ur Not Detected CutOff 25 ng/mL [facility] Pain mgt Tramadol metabolite (O-desmethyltramado l), Ur Not Detected CutOff 25 ng/mL [facility] Comment: Interpretive Data This test only detects [...] its performance characteristics determined by [facility]. It has not been cleared or approved by the U.S. Food and Drug Administration. Current interpretive data was last revised 19. Pain mgt Naloxone, ur Not Detected cutoff 20 ng/ml [facility] Urine 11/30/2020 4:39 PM CDT 11/30/2020 5:34 PM CDT Nancy Fernandez MD LAB URINE ORDERABLES Final Result [facility] [place] [address] * (ABNORMAL) Drugs of Abuse Screen, Urine with Reflex Confirmation (11/30/2020 4:39 PM CDT) Amphetamine, ur Not Detected CutOff 500ng/mL [facility] Comment: Interpretive Data - Amphetamines: ??Samples containing greater than 500 ng/mL d-methamphetamine ??or other cross-reacting amphetamine compounds are reported as positive. ??Amphetamine immunoassays are subject to significant false positive rates due to cross-reactivity of non-amphetamine drugs. Current Interpretive Data was last reviewed 2018. Barbiturates, ur Not Detected CutOff 200ng/mL [facility] Comment: Interpretive Data - Barbiturates: ??Samples containing greater than 200 ng/mL secobarbital or other cross-reacting barbiturate compounds are reported as positive. ??False positive and false negative results are possible. Current Interpretive Data was last reviewed 2018. Benzodiazepines, ur Not Detected CutOff 100ng/mL [facility] Comment: Interpretive Data - Benzodiazepines: ??Samples containing greater than 100 ng/mL nordiazepam or other cross-reacting compounds are reported as positive. ?? False positive and false negative results are possible. ?? Current Interpretive Data was last reviewed 2018. Cannabinoids, ur Not Detected CutOff 50 ng/mL [facility] Comment: Interpretive Data - Cannabinoids: ??Samples containing greater than 50 ng/mL delta-9 THC -COOH or other cross-reacting compounds are reported as positive. ??False positive and false negative results are possible. ?? Current Interpretive Data was last reviewed 2018. Cocaine, ur Not Detected CutOff 150ng/mL [facility] Comment: Interpretive Data - Cocaine: ??Samples containing greater than 150 ng/mL benzoylecgonine or other cross-reacting compounds are reported as positive. False positive and false negative results are possible. Current Interpretive Data was last reviewed 2018. Fentanyl, Ur Not Detected Cutoff 1 ng/mL [facility] Comment: Interpretive Data - Fentanyls: ??Samples containing [...] Phencyclidine, ur Not Detected CutOff 25 ng/mL [facility] Comment: Interpretive Data - Phencyclidine: ??Samples containing greater than 25 ng/mL phencyclidine or other cross-reacting compounds are reported as positive. ??False positive and false negative results are possible. ?? Current Interpretive Data was last reviewed 2018. Urine Creatinine 121 mg/dL [facility] Comment: Interpretive Data Urine Creatinine: < 10 mg/dL is extremely dilute = or > 10 but < 20 mg/dL is dilute = or > 20 mg/dL is normal Current Interpretive Data was last revised on 2017. Urine 11/30/2020 4:39 PM CDT 11/30/2020 5:34 PM CDT Narrative [facility] - 11/30/2020 6:26 PM CDT Drug of Abuse screening is performed by immunoassay for medical purposes only. ??This is not to be used for Pain Management purposes. ??If Detected, confirmation testing will be performed for Amphetamines, Cocaine, Fentanyl, Methadone, Opiates, Oxycodone or Phencyclidine. Nancy Fernandez MD LAB URINE ORDERABLES Final Result [facility] [place] [address] documented in this encounter Visit Diagnoses Not on filedocumented in this encounter Care Teams Phlebotomist Associate Relationship Specialty Start Date End Date Rohan Rothman MD [address] [place] [address] PCP - General 07/20/20 05/12/24 Reanna Polanco, RN Registered Nurse 07/07/19 documented as of this encounter
--- OUTSIDE RECORDS SUMMARY | 2024-07-28 01:07 | XMS_ITS | Encounter Summary ---
Author Organization [facility] Healthcare Address [address] [place] [address] Care Team Providers Care Athletic Turf Worker Name Role Phone Reanna Polanco RN [facility] Rohan Salvador MD Primary Care Provider Reason for Visit * Reason Comments Follow-up Pain Encounter Details Date Type Department Care Team (Latest Contact Info) Description 03/02/2021 2:16 PM CDT - 03/02/2021 11:59 PM CDT Hospital Encounter [facility] [place] [address] [facility] [address] [place], [place] [id number] Nancy Fernandez MD [address] [facility] [id number] [place] [address] Other secondary scoliosis, lumbar region (Primary Dx); Muscle spasm; Chronic bilateral low back pain without sciatica [...] on file Legal Sex Female 2:03 AM ALARM INSTALLATION TECHNICIAN Gender Identity Female 08/26/2020 6:26 AM ALARM INSTALLATION TECHNICIAN Sexual Orientation Straight 08/26/2020 6: 26 AM ALARM INSTALLATION TECHNICIAN documented as of this encounter Last Filed Vital Signs Vital Sign Reading Time Taken Comments Blood Pressure 149/89 03/02/2021 2:21 PM CDT Pulse 104 03/02/2021 2:21 PM CDT Temperature 36.6 ??C (97.8 ??F) 03/02/2021 2:21 PM CD T Respiratory Rate 14 03/02/2021 2:21 PM CDT Oxygen Saturation 97% 03/02/2021 2:21 PM CDT Inhaled Oxygen Concentration - - Weight 70.3 kg (155 lb) 03/02/2021 2:21 PM CDT Height - - Body Mass Index 23.57 11/30/2020 9:00 AM CDT documented in this encounter Discharge Instructions * Patient Instructions* Daily Ballard RN - 03/02/2021 2:30 PM CDT [facility] DISCHARGE INSTRUCTIONS MEDICATIONS: [x] Continue your current home medications Start: [] Notify your pharmacy for refill(s) 7 days before you are out of your medication. [] Opioid (Narcotic) Agreement signed and patient received copy. [] Side Effects of Opioid Medications given to patient PROCEDURE at today's visit: DIET: [x] Resume normal diet [] See [facility] Post Discharge Procedure Information Sheet ACTIVITY: [x] Resume normal activity [] See [facility] Post Discharge Procedure Information Sheet REFERRALS: Physical Therapy [] [facility] Physical Therapy ([phone]) [] [facility] (Graded [employer]ag[employer]) [] [facility] ([phone]) [] [facility] ([employer]) [x] Other: Physical Therapy Behavior Medicine [] Pain Psychologist, [facility] Pain Psychology Please call to schedule appointment [phone] or [phone] Diagnostic Test(s): EDUCATION provided on the following: [...] INSTRUCTIONS before your next procedure: [] See [facility] Pre-Procedure Information Sheet [] Do not eat or drink for six (6) hours before the time/date of the procedure. [] Inquire with your prescribing provider if ok to hold blood thinner for ( ) days before procedure. [] Blood work required 2 hours before procedure: [] Tractor Engine Mechanic needed for next procedure [] Pre Procedure instructions will be sent through [employer] or by phone two working days prior to procedure. *Need help with [employer]? Call [phone]. Patient provided information and repeated back with understanding. If you need to reach us: For any questions about your procedure, please call the Pain Management Center [phone] (M-F) (8am-4pm) If you need urgent attention after 5 pm and weekends: Call the [facility] Supervisor [employer] at [phone] and ask for the Pain Service doctor semiconductor manufacturing technician. documented in this encounter Medications at Time [...] 22 baclofen (LIORESAL) 10 mg tablet Take 10 mg by mouth 3 (three) times a day 06/06/20 21 baclofen (LIORESAL) 10 mg tablet Take 2 tablets (20 mg total) by mouth 4 (four) times a day Takes 1-2 tabs QID 240 tablet 11 03/02/2021 04/07/20 22 clobetasol (TEMOVATE) 0.05 % cream as needed [...] day As need for pain 90 tablet 03/10/2021 04/02/20 21 magnesium oxide (MAG-OX) 250 mg (150.8 mg elemental) tabletIndications :hypomagnesemia Take 750 mg by mouth daily 06/06/20 21 methocarbamoL (ROBAXIN) 500 mg tablet Take 2 tablets (1,000 mg total) by mouth 4 (four) times a day as needed for muscle spasms 720 tablet 1 01/04/2021 06/27/20 21 omega 2-heq-vos-fish oil 1,000 mg (120 mg-180 mg) capsule [...] day As need for pain 90 tablet 03/10/2021 1 baclofen (LIORESAL) 10 mg tablet Take 2 tablets (20 mg total) by mouth 4 (four) times a day Takes 1-2 tabs QID 240 tablet 03/02/2021 2 documented in this encounter Discharge Disposition Disposition Code Departure Means Destination Discharge to home or self care documented in this encounter Progress Notes * Nancy Fernandez MD - 03/02/2021 2:30 PM CDT Patient Name: Katrina Camarena : 1960 Today's Date: 03/02/2021 PCP: Rohan Rothman MD Referring: No ref. provider found Chief Complaint Patient presents with ??? Follow-up ??? Pain HPI Historical Info: KATRINA CAMARENA is a [...] - meloxicam - Savella?? - excedrine migraine ([id number]) - baclofen - methocarbamol - duloxetine - [...] L3 over L4 and L4 over L5. -??Kyphosis of lumbar spine centered around L3-L4 level, with mild anterolisthesis of L3 over L4. - Endplate degeneration along L3-L4 and L4-L5 levels. - Disc desiccation throughout the lumbar spine, with marked disc height loss at L3-L4 and L4-L5 levels. - L1-L2: Left foraminal and extraforaminal disc protrusion. Mild left neuroforaminal stenosis. - L2-L3: ??Disc bulge, asymmetric towards the left. Mild bilateral facet arthropathy. - L3-L4: Uncovering of intervertebral disc with a small disc osteophyte complex. Moderate bilateralfacet arthropathy. Mild to moderate right neuroforaminal stenosis. Mild spinal canal stenosis - L4-L5: ??Disc osteophyte complex is present. Moderate bilateral facet arthropathy. Mild right andmoderate to severe left neuroforaminal stenosis. Mild spinal canal stenosis - L5-S1: ??Mild bilateral facet arthropathy. IMPRESSION: Advanced degenerative disc disease at L3-L4 and L4-L5 levels with lateral listhesis at these levels, and anterolisthesis at L3-L4 level. ?? INTERVAL HISTORY (03/02/2021): Katrina Camarena returns to clinic today. She presents for ongoing management of low back pain. when pain is good, it's REALLY good, but when it's bad it's REALLY bad. Also dealing with some personal stress, which doesn't help. Pain is at low back pain . Radiation: none Numbness: none Weakness: none Pain Assessment Pain Score: 6 Pain Location: Back (Lumbar) (and lower neck) Pain Radiating Towards: to bilateral hips Pain Descriptors: Aching Pain Frequency: Constant/continuous Massage therapy helps. Muscle relaxants help. Says that she feels the muscles of her back tighten before the pain sets in. Tries to walk 1/2 mi/day - can usually, but not always, tolerate this level of activity. She is doing her HEP but thinks a return to physical therapy may be in order. Her ADLs are difficult, but manageable on her own. Last visit 11/30/20 we did the following: Intervention: consider SI injection Medication adjustments: continue current meds for now Referrals: she is doing her HEP. does well with PT but doesn't think she needs to go back right now. Will consider retunring in the future. Discussed referral to spine surgeon for scoliosis. She is functionally improving and does not think she is ready to see a surgeon Current Pain meds: Pain Medications acetaminophen ER (Tylenol 8 Hour) 650 mg 8 hr tablet Take 2 tablets by mouth 2 (two) times a day ARIPiprazole (ABILIFY) 5 mg tablet Take 1 1/2 tablets daily. Total 7.5 mg. aspirin 325 mg tablet Take 3 tablets by mouth 3 (three) times a day baclofen (LIORESAL) 10 mg tablet Take 10 mg by mouth 3 (three) times a day DULoxetine (CYMBALTA) 30 mg capsule 30 mg Total dose 90 mg a day HYDROcodone-acetaminophen (NORCO) 7.5-325 mg per tablet Starting on 03/10/2021. Take 1 tablet by mouth 3 (three) times a day As need for pain methocarbamoL (ROBAXIN) 500 mg tablet Take 2 tablets (1,000 mg total) by mouth 4 (four) times a dayas needed for muscle spasms baclofen (LIORESAL) 10 mg tablet Take 2 tablets (20 mg total) by mouth 4 (four) times a day Takes 1-2 tabs QID No results found. Review of Systems Review [...] Beckman MD Notes: -- DULOXETINE DR (MARGARETHMBALTA) 30 MG CAPSULE 30 mg Total dose [...] Beckman MD Notes: -- MAGNESIUM OXIDE (MAG-OX) 250 MG (150.8 MG ELEMENTAL) TABLET Take 750 mg by mouth daily Authorizing Provider: Joaquín Beckman MD Notes: -- METHOCARBAMOL (ROBAXIN) 500 MG TABLET Take 2 tablets (1,000 mg total) by mouth 4 (four) times a dayas needed for muscle spasms Authorizing Provider: Nancy Fernandez MD Notes: -- MONTELUKAST (SINGULAIR) 10 MG TABLET nightly Authorizing Provider: Joaquín Beckman MD Notes: -- OMEGA 6-DJC-VXZ-FISH OIL 1,000 MG (120 MG-180 MG) CAPSULE daily Authorizing Provider: Joaquín Beckman MD Notes: -- TURMERIC ROOT EXTRACT 500 MG CAPSULE Take 1,500 mg by mouth. Authorizing Provider: Joaquín Beckman MD Notes: -- ZOLPIDEM (AMBIEN) 10 MG TABLET TAKE 1 TABLET AT BEDTIME NEEDED FOR SLEEP. Authorizing Provider: Joaquín Beckman MD Notes: -- Modified Medications Modified Medication Previous Medication BACLOFEN (LIORESAL) 10 MG TABLET baclofen (LIORESAL) 10 mg tablet Take 2 tablets (20 mg total) by mouth 4 (four) times a day Takes 1-2 tabs QID Take 2 tablets (20 mgtotal) by mouth 4 (four) times a day Takes 1-2 tabs QID Authorizing Provider: Nancy Fernandez MD Authorizing Provider: Nancy Fernandez MD Notes: -- Notes: -- HYDROCODONE-ACETAMINOPHEN (NORCO) 7.5-325 MG PER TABLET HYDROcodone- acetaminophen (NORCO) 7.5-325 mg per tablet Take 1 tablet by mouth 3 (three) times a day As need for pain Take 1 tablet by mouth 3 (three) times a day As need for pain Authorizing Provider: Nancy Fernandez MD Authorizing Provider: Nancy Fernandez MD Notes: -- Notes: -- Discontinued Medications No medications on file Allergies Allergen Reactions ??? Decongestant Capsule Other (See comments) bladder spasms with decongestants Physical Exam Vitals: 03/02/21 1421 BP: 149/89 Pulse: 104 Resp: 14 Temp: 97.8 ??F (36.6 ??C) SpO2: 97% Weight: 70.3 kg (155 lb) Body mass index is 23.57 kg/m??. Physical Exam Constitutional: Appearance: Normal appearance. HENT: Head: Normocephalic and atraumatic. Eyes: Conjunctiva/sclera: Conjunctivae normal. Pulmonary: Effort: Pulmonary effort is normal. Musculoskeletal: Comments: Lumbar scoliosis noted on physical exam Lumbosacral TTP Skin: General: Skin is warm and dry. Neurological: General: No focal deficit present. Mental Status: She is alert and oriented to person, place, and time. Comments: 5/5 strength bilateral lower extremities Psychiatric: Mood and Affect: Mood normal. Behavior: Behavior normal. Thought Content: Thought content normal. Judgment: Judgment normal. Assessment The above note documents my personal evaluation of this patient. In addition, I have reviewed and confirmed with the patient and nurse the supportive information documented in today's scanned PatientHealth Questionnaire and Office Note. Encounter Diagnoses Name Primary? Other secondary scoliosis, lumbar region Yes ??? Muscle spasm ??? Chronic bilateral low back pain without sciatica Plan 1. Interventions: none at this time 2. Medications: Continue current meds for now - baclofen and hydrocodone refilled today The patient shows no signs of [...] the lowest dose necessary. Chronic Opioid Therapy 03/02/2021 Current analgesics: hydrocodone/APAP 7.5/325 TID??(sometimes bid, usually tid) Daily dose (MME): 22.5mg/day Benzo: no Meds locked up: She keeps in an unmarked box in the closet and is sure to put them out of sight if anyone is coming into her home (family members, cleaning crew, etc) UDS: 11/30/20 - consistent and continue Plan: continue current meds for now ?? 3. Imaging: No further imaging needed at this current time. 4. Referral: We will refer the patient to physical therapy for evaluation and treatment as well as a home exercise program. She will go somewhere closer to her home where she has received good care in the past. 5. Follow-up: In 3mo for re-evaluation of the above regimen. Orders Placed This Encounter Procedures ??? Ambulatory referral order to Physical Therapy - Standing Status: Future Standing Expiration Date: 03/02/2022 Referral Priority: Routine Referral Type: Consultation Referral [...] stable, chronic illnesses - Prescription drug management documented in this encounter Miscellaneous Notes * Addendum Note - Sandrita Mariano - 03/02/2021 2:30 PM CDTEncounter addended by: Sandrita Mariano on: 03/03/2021 8:17 AM Actions taken: Procedure log completed documented in this encounter Plan of Treatment Not on file documented as of this encounter Goals Goal Patient Goal Type Associated Problems Recent Progress Patient-Stated? Author CCM Chronic Pain Care Plan Chronic Care Management Improving( 10:05 AM ALARM INSTALLATION TECHNICIAN) No Bessy Mancuso, RN Note: Problem: Chronic Pain Goals: 1. Minimize further functional decline 2. Maximize quality of life 3. Control pain Strategies: - Activity/exercise program recommendation - Conservative stepwise pain medicine strategy with multi-disciplinary approach - Recommend healthy lifestyle strategies and compensatory methods as needed documented as of this encounter Visit Diagnoses Diagnosis Other secondary scoliosis, lumbar region- Primary Muscle spasm Spasm of muscle Chronic bilateral low back pain without sciatica documented in this encounter Discontinued Medications Medication Sig Discontinue Reason Start Date End Da te baclofen (LIORESAL) 10 mg tablet Take 2 tablets (20 mg total) by mouth 4 (four) times a day Takes 1-2 tabs QID Reorder 01/04/2021 03/02/2021 HYDROcodone-acetaminophe n (NORCO) 7.5-325 mg per tabletIndications:Pain Take 1 tablet by mouth 3 (three) times a day As need for pain Reorder 02/10/2021 03/02/2021 documented as of this encounter Historical Medications * This list may reflect changes made after this encounter. baclofen (LIORESAL) 10 mg tablet Take 10 mg by mouth 3 (three) times a day 06/06/2021 added in this encounter Care Teams Athletic Turf Worker Relationship Specialty Start Date End Date Rohan Rothman MD [address] [facility] [address] [place] [address] PCP - General 07/20/20 05/12/24 Reanna Polanco RN Registered Nurse 07/07/19 documented as of this encounter
--- OUTSIDE RECORDS SUMMARY | 2024-07-28 01:07 | XMS_ITS | Encounter Summary ---
Author Organization [facility] Healthcare Address [address] [facility] [place] [address] Care Team Providers Care Scooping Machine Tender Name Role Phone Reanna Polanco RN [facility] Rohna Salvador MD Primary Care Provider Peyman Ortega MD Primary Care Provider Encounter Details Date Type Department Care Team (Late st Contact Info) Description 11/04/2020 Telephone [facility] Radiology [address] [place] [address] Nancy Fernandez MD [id number] [place], [place] [id number] Social History Tobacco Use Types Packs/Day Years [...] on file Legal Sex Female 2:03 AM AD OPERATIONS INTERN Gender Identity Female 08/26/2020 6:26 AM AD OPERATIONS INTERN Sexual Orientation Straight 08/26/2020 6: 26 AM AD OPERATIONS INTERN documented as of this encounter Plan of Treatment Not on file documented as of this encounter Goals Goal Patient Goal Type Associated Problems Recent Progress Patient-Stated? Author CCM Chronic Pain Care Plan Chronic Care Management Improving( 10:05 AM AD OPERATIONS INTERN) Bessy Gayle, RUBIO Note: Problem: Chronic Pain Goals: 1. Minimize further functional decline 2. Maximize quality of life 3. Control pain Strategies: - Activity/exercise program recommendation - Conservative stepwise pain medicine strategy with multi-disciplinary approach - Recommend healthy lifestyle strategies and compensatory methods as needed documented as of this encounter Visit Diagnoses Not on filedocumented in this encounter Care Teams Scooping Machine Tender Relationship Specialty Start Date End Date Rohan Rothman MD [address] [place] [address] PCP - General 07/20/20 05/12/24 Peyman Ortega MD [address] [facility] [address] [place] [address] PCP - General Family Practice 05/13/24 Reanna Polanco RN Registered Nurse 07/07/19 documented as of this encounter
--- OUTSIDE RECORDS SUMMARY | 2024-07-28 01:07 | XMS_ITS | Encounter Summary ---
Author Organization [facility] Healthcare Address [address] [facility] [place] [address] Care Team Providers Care Meat Service Team Member Name Role Phone Reanna Polanco RN [facility] Rohan Salvador MD Primary Care Provider Encounter Details Date Type Department Care Team (Late st Contact Info) Description 01/04/2021 Orders Only [facility] [address] [facility] Advanced Medicine [address] [place], [place] [phone] Nancy Fernandez MD [address] [facility] [address] [facility] [phone] [place], [place] [phone] Social History Tobacco Use Types Packs/Day Years [...] on file Legal Sex Female 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 Gender Identity Female 08/26/2020 6:26 AM WIND FARM ELECTRICAL SYSTEMS DESIGNER Sexual Orientation Straight 08/26/2020 6: 26 AM WIND FARM ELECTRICAL SYSTEMS DESIGNER documented as of this encounter Ordered Prescriptions Prescription Sig Dispense Quantity Refills Last Filled Start Date End Date methocarbamoL (ROBAXIN) 500 mg tablet Take 2 tablets (1,000 mg total) by mouth 4 (four) times a day as needed for muscle spasms 720 tablet 1 01/04/2021 1 baclofen (LIORESAL) 10 mg tablet Take 2 tablets (20 mg total) by mouth 4 (four) times a day Takes 1-2 tabs QID 240 tablet 01/04/2021 1 documented in this encounter Plan of Treatment Not on file documented as of this encounter Goals Goal Patient Goal Type Associated Problems Recent Progress Patient-Stated? Author CCM Chronic Pain Care Plan Chronic Care Management Improving( 10:05 AM WIND FARM ELECTRICAL SYSTEMS DESIGNER) Bessy Gayle, RUBIO Note: Problem: Chronic Pain [...] day Takes 1-2 tabs QID Reorder 01/04/2021 01/04/2021 methocarbamoL (ROBAXIN) 500 mg tablet Take 2 tablets (1,000 mg total) by mouth 4 (four) times a day as needed for muscle spasms Reorder 01/04/2021 01/04/2021 documented as of this encounter Care Teams Meat Service Team Member Relationship Specialty Start Date End Date Rohan Rothman MD [address] [facility] 120 [place] [address] PCP - General 07/20/20 05/12/24 Reanna Polanco RN Registered Nurse 07/07/19 documented as of this encounter
--- OUTSIDE RECORDS SUMMARY | 2024-07-28 01:07 | XMS_ITS | Encounter Summary ---
Author Organization [facility] Healthcare Address [address] [facility] [place] [address] Care Team Providers Care Family Practice Md Name Role Phone Reanna Polanco RN [facility] Rohan Salvador MD Primary Care Provider Reason for Visit * Reason Onset Date Comments clarify script 09/23/2020 Encounter Details Date Type Department Care Team (Late st Contact Info) Description 09/23/2020 Telephone [facility] at the [place] [facility] [address] [facility] Advanced Medicine [address] [place], [place] [phone] Nancy Fernandez MD [address] [facility] [address] [facility] [phone] [place], [place] [phone] clarify script Social History Tobacco Use Types Packs/Day Years Used Date Smoking Tobacco: Former Cigarettes Smokeless Tobacco: Never Alcohol Use Standard Drinks/Week Comments No 0 (1 standard drink = 0.6 oz pur e alcohol) denies Comments No Sex and Gender Information Value Date Recorded Sex Assigned at Not on file Legal Sex Female 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 Gr - 06/07/20 Methocarbamol RX. LE SCHOOL COUNSELOR documented in this encounter Plan of Treatment Not on file documented as of this encounter Goals Goal Patient Goal Type Associated Problems Recent Progress Patient-Stated? Author CCM Chronic Pain Care Plan Chronic Care Management Improving( 10:05 AM MIDDLE SCHOOL COUNSELOR) No Bessy Mancuso, RUBIO Note: Problem: Chronic Pain Goals: 1. Minimize further functional decline 2. Maximize quality of life 3. Control pain Strategies: - Activity/exercise program recommendation - Conservative stepwise pain medicine strategy with multi-disciplinary approach - Recommend healthy lifestyle strategies and compensatory methods as needed documented as of this encounter Visit Diagnoses Not on filedocumented in this encounter Care Teams Family Practice Md Relationship Specialty Start Date End Date Rohan Rothman MD [address] [facility] 120 [place] [address] PCP - General 07/20/20 05/12/24 Reanna Polanco RN Registered Nurse 07/07/19 documented as of this encounter
--- OUTSIDE RECORDS SUMMARY | 2024-07-28 01:07 | XMS_ITS | Encounter Summary ---
Author Organization [facility] Healthcare Address [address] [place] [address] Care Team Providers Care Driver License Reviewing Officer Name Role Phone Reanna Polanco RN [facility] Rohan Salvador MD Primary Care Provider Reason for Visit * Reason Onset Date Comments Coding problem 10/26/2020 Encounter Details Date Type Department Care Team (Late st Contact Info) Description 10/26/2020 Telephone [facility] [place] [facility] [address] [facility] Advanced Medicine [address] [place], [place] [phone] Nancy Fernandez MD [address] [facility] [address] [facility] [phone] [place], [place] [phone] Coding problem Social History Tobacco Use Types Packs/Day Years [...] file Legal Sex Female 2:03 AM STAFF DEVELOPMENT COORDINATOR RN Gender Identity Female 08/26/2020 6:26 AM STAFF DEVELOPMENT COORDINATOR RN Sexual Orientation Straight 08/26/2020 6: 26 AM STAFF DEVELOPMENT COORDINATOR RN documented as of this encounter Miscellaneous Notes * Telephone Encounter - Bessy Mancuso RN - 10/26/2020 3:11 PM CDT Spoke with pt 10/26/20 for telemedicine appointment with Dr. Fernandez. States her last bill was coded wrong. Wanting to talk to Sandrita. Will send to Sandrita to review. documented in this encounter Plan of Treatment Not on file documented as of this encounter Goals Goal Patient Goal Type Associated Problems Recent Progress Patient-Stated? Author CCM Chronic Pain Care Plan Chronic Care Management Improving( 10:05 AM STAFF DEVELOPMENT COORDINATOR RN) No Bessy Mancuso RN Note: Problem: Chronic Pain Goals: 1. Minimize further functional decline 2. Maximize quality of life 3. Control pain Strategies: - Activity/exercise program recommendation - Conservative stepwise pain medicine strategy with multi-disciplinary approach - Recommend healthy lifestyle strategies and compensatory methods as needed documented as of this encounter Visit Diagnoses Not on filedocumented in this encounter Care Teams Driver License Reviewing Officer Relationship Specialty Start Date End Date Rohan Rothman MD [address] [facility] 120 [place] [address] PCP - General 07/20/20 05/12/24 Reanna Polanco RN Registered Nurse 07/07/19 documented as of this encounter
--- OUTSIDE RECORDS SUMMARY | 2024-07-28 01:07 | XMS_ITS | Encounter Summary ---
Author Organization [facility] Healthcare Address [address] [place] [address] Care Team Providers Care Clothes Wringer Name Role Phone Reanna Polanco RN [facility] Rohan Salvador MD Primary Care Provider Reason for Referral * Diagnostic Imaging (Routine) - Closed Specialty Diagnoses / Procedures Referred By Contac t Referred To Contact Radiology Diagnoses Pain of lumbar facet joint Chronic bilateral low back pain without sciatica Procedures MRI Lumbar Spine WO Contrast Nancy Fernandez MD [address] [facility] [address] [facility] [phone] [place] [address] Phone: tel: fax: [address] [phone] Referral ID Status Reason Start Date Expiration Date Visits Re quested Visits Authorized [id number] Closed 11/04/2020 05/03/2021 1 1 Reason for Visit * Diagnostic Imaging (Routine) - Closed Specialty Diagnoses / Procedures Referred By Contac t Referred To Contact Radiology Diagnoses Pain of lumbar facet joint Chronic bilateral low back pain without sciatica Procedures MRI Lumbar Spine WO Contrast Nancy Fernandez MD [address] [facility] [address] [facility] [phone] [place] [address] Phone: tel: fax: [facility] 1 [place] [address] Referral ID Status Reason Start Date Expiration Date Visits Re quested Visits Authorized [id number] Closed 11/04/2020 05/03/2021 1 1 Encounter Details Date Type Department Care Team (Late st Contact Info) Description 11/07/2020 11:25 AM CDT - 11/07/2020 11:59 PM CDT Hospital Encounter [facility] Radiology 1 [place] [address] Nancy Fernandez MD [address] [facility] [address] [facility] [phone] [place], [place] [phone] Mateusz Denton MD [address] [facility] [address] [place], [place] [phone] Pain of lumbar facet joint; Chronic bilateral [...] on file Legal Sex Female 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 Gender Identity Female 08/26/2020 6:26 AM POLE 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 Sexual Orientation Straight 08/26/2020 6: 26 AM POLE 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 documented as of this encounter Medications [...] 720 tablet 1 06/07/2020 01/05/20 21 omega 7-vgk-ohs-fish oil 1,000 mg (120 mg-180 mg) capsule [...] Plan Chronic Care Management Improving( 10:05 AM POLE 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) No Bessy Mancuso, RUBIO Note: Problem: [...] CONTRAST Schedule Routine, Read Routine (OP Routine) 11/07/2020 1:00 PM CDT Pain of lumbar facet joint Chronic bilateral low back pain without sciatica documented in this encounter Results * MRI Lumbar Spine WO Contrast (11/07/2020 [...] above. Electronically signed by: Travis Garcia M.D. Nancy Fernandez MD IMG MRI PROCEDURES Final R esult documented in this encounter Visit Diagnoses Diagnosis Pain of lumbar facet joint Chronic bilateral low back pain without sciatica documented in this encounter Care Teams Clothes Wringer Relationship Specialty Start Date End Date Rohan Rothman MD [address] [facility] 120 [place] [address] PCP - General 07/20/20 05/12/24 Reanna Polanco RN Registered Nurse 07/07/19 documented as of this encounter
--- OUTSIDE RECORDS SUMMARY | 2024-07-28 01:07 | XMS_ITS | Encounter Summary ---
Author Organization [facility] Healthcare Address [address] [facility] [place] [address] Care Team Providers Care Director Business Name Role Phone Reanna Polanco RN [facility] Rohan Salvador MD Primary Care Provider Encounter Details Date Type Department Care Team (Late st Contact Info) Description 10/27/2020 Telephone [facility] [address] [facility] Advanced Medicine [address] [place], [place] [phone] Nancy Telles MD [address] 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 * Telephone Encounter - Slime HansenOrquidea - 10/27/2020 9:18 AM CDT This patient has the following test scheduled and will require precert for: [facility] TEST: [] EMG Nerve Conduction Study of the: [x] MRI of the: LUMBAR [] CT of the: [] CT Myelogram of the: [] Ultrasound of the: [] Doppler of the: [] Bone Scan of the: [] Other Testing : ................................................................................ ............................................................. ATTENDING MD Name: TELLES The appointment is scheduled on (date and time): 11/07/2020 11:45AM ................................................................................ ............................................................. [facility] Location: [] CAM [] [facility] [x] [facility] [] [facility] [] [facility] [] [facility] [] OTHER Location: ................................................................................ ............................................................. documented in this encounter Plan of Treatment Not on file documented as of this encounter Goals Goal Patient Goal Type Associated Problems Recent Progress Patient-Stated? Author CCM Chronic Pain Care Plan Chronic Care Management Improving( 10:05 AM PALLIATIVE MEDICINE PHYSICIAN) No Bessy Mancuso, RUBIO Note: Problem: Chronic Pain Goals: 1. Minimize further functional decline 2. Maximize quality of life 3. Control pain Strategies: - Activity/exercise program recommendation - Conservative stepwise pain medicine strategy with multi-disciplinary approach - Recommend healthy lifestyle strategies and compensatory methods as needed documented as of this encounter Visit Diagnoses Not on filedocumented in this encounter Care Teams Director Business Relationship Specialty Start Date End Date Rohan Rothman MD [address] [facility] [address] [facility] 120 [place] [address] PCP - General 07/20/20 05/12/24 Reanna Polanco, RN Registered Nurse 07/07/19 documented as of this encounter
--- OUTSIDE RECORDS SUMMARY | 2024-07-28 01:07 | XMS_ITS | Encounter Summary ---
Author Organization [facility] Healthcare Address [address] [facility] [place] [address] Care Team Providers Care Brine Maker Name Role Phone Reanna Polanco RN [facility] Rohan Salvador MD Primary Care Provider Encounter Details Date Type Department Care Team (Late st Contact Info) Description 07/04/2021 Orders Only [facility] [address] [facility] Advanced Medicine [address] [place], [place] [phone] Nancy Fernandez MD [address] [facility] [address] [facility] [phone] [place], [place] [phone] Social History Tobacco Use Types Packs/Day Years [...] on file Legal Sex Female 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 Author CCM Chronic Pain Care Plan Chronic Care Management Improving( 10:05 AM METAL TREATER) Bessy Gayle, RN Note: Problem: Chronic Pain [...] day as needed for muscle spasms Reorder 06/27/2021 07/04/2021 documented as of this encounter Care Teams Brine Maker Relationship Specialty Start Date End Date Rohan Rothman MD [address] [facility] 120 [place] [address] PCP - General 07/20/20 05/12/24 Reanna Polanco RN Registered Nurse 07/07/19 documented as of this encounter
--- OUTSIDE RECORDS SUMMARY | 2024-07-28 01:08 | XMS_ITS | Encounter Summary ---
Author Organization [facility] Address [address] [place] [address] Care Team Providers Care Solutions Analyst Name Role Phone Reanna Polanco RN [facility] Rohan Salvador MD Primary Care Provider Reason for Visit * Cardiology (Routine) - Closed Specialty Diagnoses / Procedures Referred By Contac t Referred To Contact Diagnoses Palpitations Unspecified right bundle-branch block Procedures Transthoracic Echo Complete W Doppler/CF [facility] Medical [facility] Cardiology [address] [place] [phone] Phone: tel: fax: [facility] Referral ID Status Reason Start Date Expiration Date Visits Re quested Visits Authorized [id number] Closed 08/18/2020 09/17/2021 1 1 Encounter Details Date Type Department Care Team (Latest Contact Info) Description 09/02/2020 1:00 PM JEWELRY SALES Ancillary Procedure [facility] Medical [facility] Cardiology [address] [facility] [address] [place] [phone] Transcribed Order, Provider Palpitations; Unspecified right bundle-branch block Social History Tobacco Use Types Packs/Day Years Used Date Smoking Tobacco: Former Cigarettes Smokeless Tobacco: Never Alcohol Use Standard Drinks/Week Comments No 0 (1 standard drink = 0.6 oz pur e alcohol) denies Comments No Sex and Gender Information Value Date Recorded Sex Assigned at Not on file Legal Sex Female 2:03 AM JEWELRY SALES Gender Identity Female 08/26/2020 6:26 AM JEWELRY SALES Sexual Orientation Straight 08/26/2020 6: 26 AM JEWELRY SALES documented as of this encounter Last Filed Vital Signs Vital Sign Reading Time Taken Comments Blood Pressure - - Pulse - - Temperature 36.6 ??C (97.8 ??F) 09/02/2020 12:[address] Respiratory Rate - - Oxygen Saturation - - Inhaled Oxygen Concentration - - Weight - - Height - - Body Mass Index - - documented in this encounter Plan of Treatment Not on file documented as of this encounter Goals Goal Patient Goal Type Associated Problems Recent Progress Patient-Stated? Author CCM Chronic Pain Care Plan Chronic Care Management Improving( 10:05 AM JEWELRY SALES) No Bessy Mancuso RN Note: Problem: Chronic Pain Goals: 1. Minimize further functional decline 2. Maximize quality of life 3. Control pain Strategies: - Activity/exercise program recommendation - Conservative stepwise pain medicine strategy with multi-disciplinary approach - Recommend healthy lifestyle strategies and compensatory methods as needed documented as of this encounter Procedures Procedure Name Priority Date/Time Associated Diagnosis Comments TRANSTHORACIC ECHO (TTE) COMPLETE W DOPPLER/CF WO CONTRAST Routine 09/02/2020 1:56 PM JEWELRY SALES Palpitations Unspecified right bundle-branch block documented in this encounter Results * TRANSTHORACIC ECHO (TTE) COMPLETE W DOPPLER/CF WO CONTRAST (09/02/2020 1:56 PM JEWELRY SALES) Anatomical Region Laterality Modality Ultrasound 09/02/2020 12:4 4 PM JEWELRY SALES Narrative 09/02/2020 5:53 PM JEWELRY SALES [facility] Cardiology [address] [facility] [address], [place] [address] [address] [facility] [address], [place] [address] P:[phone] P:[phone] Echocardiographic Report Patient Name: KATRINA CAMARENA : 1960 Study Date: 09/02/2020 12:44:13 PM Gender: F Tech: Location: [place] Ref.Provider: NICOLASA Height(Cm): 173 BSA: 1.83 Weight(Kg): 69.85 Heart Rate: 80 BP: 131/63 Quality: Good Order Provider: TRANSCRIBED ORDER, PROVIDER Procedures: Echocardiographic Report: Transthoracic echocardiogram with complete 2D, M-Mode, and color Doppler examination. Indications: Palpitations and RBBB. Measurements: 2D/M Mode ?Doppler ? Measurement ?Value ?Normal Range ? Measurement ?Value ?Normal Range ? EF Mod ? 73 ?AV Mean PG ? 4 ?mmHg ? EF MM ?76 ? [ 55 - 70 ] % ?AV Peak Garrison ?1.24 ? m/s ? LVIDd MM ? 3.93 ? [ 3.90 - 5.30 ] cm ? AV Peak PG ? 6 ?mmHg ? LVIDs MM ? 2.20 ? [ 2.30 - 3.90 ] cm ? AV VTI ? 0.29 ? cm ? LVPWd MM ? 1.07 ? [ 0.60 - 1.00 ] cm ? LVOT Peak Garrison ?0.96 ? [ 0.70 - 1.10 ] m/s ? IVSd MM ?1.07 ? [ 0.60 - 0.90 ] cm ? LVOT VTI ? 0.22 ? cm ? LA Dimension MM ?2.73 ? [ 2.70 - 3.80 ] cm ? MV E Peak Garrison ?0.67 ? [ 0.60 - 1.30 ] m/s ? AoR Diam MM ?3.40 ? [ 2.60 - 3.70 ] cm ? MV A Peak Garrison ?0.51 ? [ 0.40 - 0.80 ] m/s ? LA Volume Index ?16.00 ?[ 16.00 - 28.00 ] cc/m2 ?MV Decel Time ?167 ?[ 150 - 200 ] msec ? ACS MM ? 1.47 ? cm ? PV Peak Garrison ?0.89 ? [ 0.40 - 0.80 ] m/s ? TR Peak Garrison ?2.03 ? [ 0.40 - 0.80 ] m/s ? TR Peak PG ? 17 ? mmHg ? RVSP ? 25.00 ?mmHg ? E' ? 0.08 ? E/E' ? 9 ? Findings: Interpretation Site: Exam was interpreted at [facility]. Left Ventricle: Normal left ventricular systolic function. No focal wall motion abnormalities. Normal left ventricular size. Normal left ventricular diastolic function. Ejection fraction is measured at 73 %. Right Ventricle: Normal right ventricular size. Left Atrium: The left atrium is normal in size. Right Atrium: The right atrium is normal in size. Atrial Septum: Normal atrial septum. Mitral Valve: Normal appearance of the mitral valve. Trivial regurgitation of the mitral valve. Aortic Valve: Normal appearance of the aortic valve. Tricuspid Valve: Normal appearance of the tricuspid valve. Estimated peak RVSP is 25 mmHg. Pulmonic Valve: Normal appearance of the pulmonic valve. Pericardium: Normal pericardium with no significant pericardial effusion. Aorta: Normal aortic root. IVC: Normal size and normal respiratory collapse consistent with normal right atrial pressure (<5 mmHg). Pulmonary Artery: Normal pulmonary artery size. Conclusions: Normal appearance of the mitral valve. Trivial regurgitation of the mitral valve. Otherwise normal study. Electronically Signed By: Wojciech Lynn MD, [facility] 2020-09-02 17:53:42 JEWELRY SALES Procedure Note Wojciech Lynn MD - 09/02/2020 [facility] Cardiology [address] [facility] [address], [place] [address] [address] [facility] [address], [place] [address] P:[phone] P:[phone] Echocardiographic Report Patient Name: Román CAMARENA ID: [id number] : [id number] Date: 09/02/2020 12:44:13 PM Gender: FAccession #: [id number] Tech: GMLocation: [place] Ref.Provider: Erinight(Cm): 173 BSA: 1.83Weight(Kg): 69.85 Heart Rate: 80BP: 131/63 Quality: GoodOrder Provider: TRANSCRIBED ORDER, PROVIDER Procedures: Echocardiographic Report: Transthoracic echocardiogram with complete 2D, M-Mode, and color Dopplerexamination. Indications: Palpitations and RBBB. Measurements: 2D/M Mode Doppler Measurement Value Normal Range MeasurementValue Normal Range EF Mod 73 AV Mean PG 4mmHg EF MM 76 [ 55 - 70 ] % AV Peak Vel1.24 m/s LVIDd MM 3.93 [ 3.90 - 5.30 ] cm AV Peak PG 6mmHg LVIDs MM 2.20 [ 2.30 - 3.90 ] cm AV VTI0.29 cm LVPWd MM 1.07 [ 0.60 - 1.00 ] cm LVOT Peak Vel0.96 [ 0.70 - 1.10 ] m/s IVSd MM 1.07 [ 0.60 - 0.90 ] cm LVOT VTI0.22 cm LA Dimension MM 2.73 [ 2.70 - 3.80 ] cm MV E Peak Vel0.67 [ 0.60 - 1.30 ] m/s AoR Diam MM 3.40 [ 2.60 - 3.70 ] cm MV A Peak Vel0.51 [ 0.40 - 0.80 ] m/s LA Volume Index 16.00 [ 16.00 - 28.00 ] cc/m2 MV Decel [id number] [ 150 - 200 ] msec ACS MM 1.47 cm PV Peak Vel0.89 [ 0.40 - 0.80 ] m/s TR Peak Vel2.03 [ 0.40 - 0.80 ] m/s TR Peak PG 17mmHg RVSP25.00 mmHg E'0.08 E/E' 9 Findings: Interpretation Site: Exam was interpreted at [facility]. Left Ventricle: Normal left ventricular systolic function. No focal wall motionabnormalities. Normal left ventricular size. Normal left ventricular diastolic function.Ejection fraction is measured at 73 %. Right Ventricle: Normal right ventricular size. Left Atrium: The left atrium is normal in size. Right Atrium: The right atrium is normal in size. Atrial Septum: Normal atrial septum. Mitral Valve: Normal appearance of the mitral valve. Trivial regurgitation of the mitralvalve. Aortic Valve: Normal appearance of the aortic valve. Tricuspid Valve: Normal appearance of the tricuspid valve. Estimated peak RVSP is 25mmHg. Pulmonic Valve: Normal appearance of the pulmonic valve. Pericardium: Normal pericardium with no significant pericardial effusion. Aorta: Normal aortic root. IVC: Normal size and normal respiratory collapse consistent with normal rightatrial pressure (<5 mmHg). Pulmonary Artery: Normal pulmonary artery size. Conclusions: Normal appearance of the mitral valve. Trivial regurgitation of the mitralvalve. Otherwise normal study. Electronically Signed By: Wojciech Lynn MD, [facility] 2020-09-02 17:53:42 JEWELRY SALES us Provider Transcribed Order CV ECHO PROCEDURES Fi nal Result documented in this encounter Visit Diagnoses Diagnosis Palpitations Unspecified right bundle-branch block documented in this encounter Care Teams Solutions Analyst Relationship Specialty Start Date End Date Rohan Rothman MD [address] [facility] [address] [place] [address] PCP - General 07/20/20 05/12/24 Reanna Polanco, RN Registered Nurse 07/07/19 documented as of this encounter
--- OUTSIDE RECORDS SUMMARY | 2024-07-28 01:08 | XMS_ITS | Encounter Summary ---
Author Organization [facility] Healthcare Address [address] [facility] [address] [place] [address] Care Team Providers Care Morale Officer Name Role Phone Felicitas Samuel MD Primary Care Provider + Reanna Polanco RN Unavailable Unavailab le Reason for Visit * Reason Onset Date Comments Med Refill 10/16/2019 Med Refill 10/17/2019 CALL PHARMACY 10/17/2019 Encounter Details Date Type Department Care Team (Late st Contact Info) Description 10/16/2019 Telephone [facility] [address] [facility] [address] [place] [address] Nancy Fernandez MD [address] [facility] [phone] [place] [address] Med Refill; Med Refill; CALL PHARMACY Social History Tobacco Use Types Packs/Day Years Used Date Smoking Tobacco: Former Smokeless Tobacco: Never Alcohol Use Standard Drinks/Week Comments No 0 (1 standard drink = 0.6 oz pur e alcohol) Comments No Sex and Gender Information Value Date Recorded Sex Assigned at Not on file Legal Sex Female 2:03 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 Gender Identity Female 08/26/2020 6:26 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 Sexual Orientation Straight 08/26/2020 6: 26 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 documented as of this encounter Ordered Prescriptions Prescription Sig Dispense Quantity Refills Last Filled Start Date End Date HYDROcodone-acetam inophen (NORCO) 7.5-325 mg per tabletIndications: Pain Take 1 tablet by mouth 3 (three) times a day As need for pain 90 tablet 10/21/2019 11/14/2019 documented in this encounter Miscellaneous Notes * Telephone Encounter - Letitia Flores RN - 10/17/2019 10:58 AM CDT LM for pharmacy that ok to fill hydrocodone and that pt has been notified. * Telephone Encounter - Letitia Flores RN - 10/17/2019 10:55 AM CDT Pt notified that refill date was reset by Dr Fernandez and hydrocodone can be filled on 10/20 * Telephone Encounter - Letitia Flores RN - 10/16/2019 9:29 AM CDT Chronic Opioid Therapy (09/22/2019): Current analgesics: hydrocodone/APAP 7.5/325 TID. Refilled today Daily dose (MME): 22.5mg/day Benzo: no Meds locked up: She keeps in an unmarked box in the closet and is sure to put them out of sight if anyone is coming into her home (family members, cleaning crew, etc) UDS: 12/12/18 Plan: continue current meds for now. Current Annotated Refill Date:10/20 Next Refill Date:11/19 Last Visit:09/22 Next Visit:12/17 documented in this encounter Plan of Treatment Not on file documented as of this encounter Goals Goal Patient Goal Type Associated Problems Recent Progress Patient-Stated? Author CCM Chronic Pain Care Plan Chronic Care Management Improving( 10:05 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) No Bessy Mancuso RN Note: Problem: [...] a day As need for pain Reorder 09/29/2019 10/16/2019 documented as of this encounter Care Teams Morale Officer Relationship Specialty Start Date End Date Felicitas Samuel MD PCP - General 10/13/16 07/19/20 Reanna Polanco RN Registered Nurse 07/07/19 documented as of this encounter
--- OUTSIDE RECORDS SUMMARY | 2024-07-28 01:08 | XMS_ITS | Encounter Summary ---
Author Organization [facility] Healthcare Address [address] [place] [address] Care Team Providers Care Supervisor Force Adjustment Name Role Phone Felicitas Samuel MD Primary Care Provider + Reanna Polanco RN Unavailable Unavailab le Reason for Referral * Diagnostic Imaging (Routine) - Closed Specialty Diagnoses / Procedures Referred By Contac t Referred To Contact Diagnoses Pain management Procedures FL Fluoroscopy < 1 Hour (Statistical Only) Nancy Fernandez MD Phone: tel: fax: [address] [phone] Referral ID Status Reason Start Date Expiration Date Visits Re quested Visits Authorized [id number] Closed 07/07/2019 01/15/2021 1 1 ICAL THERAPY AIDES TEACHER Reason for Visit * Diagnostic Imaging (Routine) - Closed Specialty Diagnoses / Procedures Referred By Contac t Referred To Contact Diagnoses Pain management Procedures FL Fluoroscopy < 1 Hour (Statistical Only) Nancy Fernandez MD Phone: tel: fax: [address] [phone] Referral ID Status Reason Start Date Expiration Date Visits Re quested Visits Authorized [id number] Closed 07/07/2019 01/15/2021 1 1 Encounter Details Date Type Department Care Team (Latest Contact Info) Description 07/07/2019 7:42 AM PHYSICAL THERAPY AIDES TEACHER - 07/07/2019 1:54 PM PHYSICAL THERAPY AIDES TEACHER Hospital Encounter [facility] [address] [place] [address] Nancy Fernandez MD [phone] [place], [place] [id number] Pain management Discharge Disposition: Discharge to home or self care Social History Tobacco Use Types Packs/Day Years Used Date Smoking Tobacco: Never Smokeless Tobacco: Never Alcohol Use Standard Drinks/Week Comments No 0 (1 standard drink = 0.6 oz pur e alcohol) Comments No Sex and Gender Information Value Date Recorded Sex Assigned at Not on file Legal Sex Female 2:03 AM PHYSICAL THERAPY AIDES TEACHER Gender Identity Female 08/26/2020 6:26 AM PHYSICAL THERAPY AIDES TEACHER Sexual Orientation Straight 08/26/2020 6: 26 AM PHYSICAL THERAPY AIDES TEACHER documented as of this encounter Medications at Time of Discharge ascorbic acid (VITAMIN C) 1,000 mg tabletIndications :Vitamin C Deficiency Take 1 tablet (1,000 mg total) by mouth every morning estradiol-norethi ndrone (ACTIVELLA) 1-0.5 mg per tablet Take 1 tablet by mouth nightly 11/14/2017 montelukast (SINGULAIR) 10 mg tabletIndications :Seasonal Allergic Rhinitis Take 1 tablet (10 mg total) by mouth nightly 04/13/2017 zolpidem (AMBIEN) 10 mg tabletIndications :Sleep-Onset Insomnia Take 1 tablet (10 mg total) by mouth nightly acetaminophen-asp irin-caffeine (EXCEDRIN MIGRAINE) 250-250-65 mg per tablet daily. 08/03/2020 alendronate (FOSAMAX) 70 mg tablet 11/02/2017 09/22/2019 ARIPiprazole (ABILIFY) 5 mg tablet Take 5 mg by mouth daily 10/26/2020 baclofen (LIORESAL) 10 mg tablet 20 mg 4 (four) times a day Takes 1-2 tabs QID 06/19/2007 01/04/2021 calcium carb,glucon-vitam in D2 500 mg calcium -200 unit tablet daily 04/19/2020 celecoxib (CeleBREX) 200 mg capsule Take 1 capsule (200 mg total) by mouth daily 90 capsule 06/25/2019 01/19/2020 cholecalciferol (VITAMIN D-3) 2,000 unit tablet TAKE 1 TABLET DAILY.- 2000IU 04/19/2020 clobetasol (TEMOVATE) 0.05 % cream as needed 06/13/2019 06/06/[address] (CYMBALTA) 30 mg capsule 30 mg Total dose 90 mg a day 08/13/2018 06/06/[address] (CYMBALTA) 60 mg capsule Take 1 capsule (60 mg total) by mouth daily. 30 capsule 07/18/2018 08/03/2020 fexofenadine (EILEEN) 180 mg tablet Take 180 mg by mouth daily. 04/19/2020 HYDROcodone-aceta minophen (NORCO) 7.5-325 mg per tabletIndications :Pain Take 1 tablet by mouth 3 (three) times a day As need for pain 90 tablet 07/04/2019 07/22/2019 lidocaine (LIDODERM) 5 % Place 1 patch on the skin daily as needed for pain 07/27/2016 08/03/2020 magnesium oxide 400 mg capsule 250 mg 3 tablets a day 04/19/2020 omega 4-opy-vlh-fish oil 1,000 mg (120 mg-180 mg) capsule Take 1 capsule by mouth every morning 09/05/2022 akrm-jsfp-ekl-yuc -dqu-quwj-psw (TUMERSAID) [phone] mg tablet daily 04/19/2020 turmeric root extract 500 mg capsuleIndication s:OTC Take 1,350 mg by mouth every morning 09/05/2022 documented as of this encounter Discharge Disposition Disposition Code Departure Means Destination Discharge to home or self care documented in this encounter Plan of Treatment Not on file documented as of this encounter Goals Goal Patient Goal Type Associated Problems Recent Progress Patient-Stated? Author CCM Chronic Pain Care Plan Chronic Care Management Improving( 10:05 AM PHYSICAL THERAPY AIDES TEACHER) Bessy Gayle, RN Note: Problem: Chronic Pain Goals: 1. Minimize further functional decline 2. Maximize quality of life 3. Control pain Strategies: - Activity/exercise program recommendation - Conservative stepwise pain medicine strategy with multi-disciplinary approach - Recommend healthy lifestyle strategies and compensatory methods as needed documented as of this encounter Procedures Procedure Name Priority Date/Time Associated Diagnosis Comments FL FLUOROSCOPY < 1 HOUR (STATISTICAL ONLY) Schedule Routine, Read Routine (OP Routine) 07/07/2019 4:10 PM PHYSICAL THERAPY AIDES TEACHER Pain management documented in this encounter Results * FL Fluoroscopy < 1 Hour (Statistical Only) (07/07/2019 4:10 PM PHYSICAL THERAPY AIDES TEACHER) Narrative [facility] - 07/07/2019 5:22 PM PHYSICAL THERAPY AIDES TEACHER The images from this study are not interpreted by Radiology. ??Please refer to the physician's procedure / OR operative note. us Nancy Fernandez MD IMG FLUOROSCOPY PROCEDURES Final Result [facility] documented in this encounter Visit Diagnoses Diagnosis Pain management documented in this encounter Care Teams Supervisor Force Adjustment Relationship Specialty Start Date End Date Felicitas Samuel MD PCP - General 10/13/16 07/19/20 Reanna Polanco, RN Registered Nurse 07/07/19 documented as of this encounter
--- OUTSIDE RECORDS SUMMARY | 2024-07-28 01:08 | XMS_ITS | Encounter Summary ---
Author Organization [facility] Facility Care Team Providers Care Biometrics Experimentalist Name Role Phone Felicitas Samuel MD Primary Care Provider + Reanna Polanco RN Unavailable Unavailab le Encounter Details Date Type Department Care Team (Latest Contact Info) Description 09/22/2019 Travel Social History Tobacco Use Types Packs/Day Years Used Date Smoking Tobacco: Former Smokeless Tobacco: Never Alcohol Use Standard Drinks/Week Comments No 0 (1 standard drink = 0.6 oz pur e alcohol) Comments No Sex and Gender Information Value Date Recorded Sex Assigned at Not on file Legal Sex Female 2:03 AM EDUCATION ASSOCIATE Gender Identity Female 08/26/2020 6:26 AM EDUCATION ASSOCIATE Sexual Orientation Straight 08/26/2020 6: 26 AM EDUCATION ASSOCIATE documented as of this encounter Plan of Treatment Not on file documented as of this encounter Goals Goal Patient Goal Type Associated Problems Recent Progress Patient-Stated? Author [facility] Chronic Pain Care Plan Chronic Care Management Improving( 10:05 AM EDUCATION ASSOCIATE) No Bessy Mancuso RN Note: Problem: Chronic Pain Goals: 1. Minimize further functional decline 2. Maximize quality of life 3. Control pain Strategies: - Activity/exercise program recommendation - Conservative stepwise pain medicine strategy with multi-disciplinary approach - Recommend healthy lifestyle strategies and compensatory methods as needed documented as of this encounter Visit Diagnoses Not on filedocumented in this encounter Care Teams Biometrics Experimentalist Relationship Specialty Start Date End Date Felicitas Samuel MD PCP - General 10/13/16 07/19/20 Reanna Polanco, RN Registered Nurse 07/07/19 documented as of this encounter
--- OUTSIDE RECORDS SUMMARY | 2024-07-28 01:08 | XMS_ITS | Encounter Summary ---
Author Organization [facility] Healthcare Address [address] [place] [address] Care Team Providers Care Motor Analyst Name Role Phone Feliciats Samuel MD Primary Care Provider + Reanna Polanco RN Unavailable Unavailab le Reason for Visit * Reason Comments Back Pain lower back pain Encounter Details Date Type Department Care Team (Latest Contact Info) Description 01/19/2020 1:20 PM CDT - 01/19/2020 11:59 PM CDT Hospital Encounter [facility] [place] [facility] [address] [facility] [address] [place] [address] Nancy Fernandez MD [address] [facility] [phone] [place] [address] Chronic bilateral low back pain without sciatica (Primary Dx); Fibromyalgia; Sacroiliitis (CMS/HCC); Chronic use of opiate drug for therapeutic [...] on file Legal Sex Female 2:03 AM AIR QUALITY CHEMIST Gender Identity Female 08/26/2020 6:26 AM AIR QUALITY CHEMIST Sexual Orientation Straight 08/26/2020 6: 26 AM AIR QUALITY CHEMIST documented as of this encounter Discharge Instructions * Patient Instructions* Clarisa Lambert, RN - 01/19/2020 1:45 PM CDT PA[facility] ([facility]) DISCHARGE INSTRUCTIONS MEDICATIONS: [] Continue your current home medications Start: Robaxin 500 mg 1 tablet twice a day for 3 days then 1 tablet three times a day for 3 days then 1 tablet 4 times a day. [x] Notify your pharmacy for refill(s) 7 [...] [] [facility] ([phone]) [] [facility] (Graded [employer]ag[employer]) [] [facility] ([phone]) [] [facility] (Graded Motor Imag[employer]) [] Other: Behavior Medicine [] Pain Psychologist, [facility] Please call to schedule appointment [phone] or [phone] Diagnostic Test(s): EDUCATION provided on the following: [] Spinal Cord Stimulator Education and DVD. Vendor: FOLLOW UP APPOINTMENTS: [] Return as needed [x] Follow up appointment: 3 month telehealth visit. We will contact you the next business [...] work required 2 hours before procedure: [] Chess Instructor needed for next procedure Patient provided information. Left message over the phone with instructions. If you need to reach us: For any questions about your procedure, please call the Pain Management Center [phone] (M-F) (8am-4pm) If you need urgent attention after 5 pm and weekends: Call the [facility] Education Program Associate at [phone] and ask for the Pain Service doctor rn liaison. Patient Education Methocarbamol (By mouth) Methocarbamol (dpiw-cz-OFK-ba-mol) Treats muscle pain and spasms. Brand Name(s): Robaxin, Robaxin-750 There may be other brand names for this medicine. When This Medicine Should Not Be Used: This medicine is not right for everyone. Do not use it if you had an allergic reaction to methocarbamol. How to Use This Medicine: Tablet ?? Take your medicine as directed. Your dose may need to be changed several times to find what works best for you. ?? Missed dose: Take a dose as soon as you remember. If it is almost time for your next dose, wait until then and take a regular dose. Do not take extra medicine to make up for a missed dose. ?? Store the medicine in a closed container at room temperature, away from heat, moisture, and direct light. Drugs and Foods to Avoid: Ask your doctor or pharmacist before using any other medicine, including lrmq-vnh-fpnwqdw medicines, vitamins, and herbal products. ?? Some medicines can affect how methocarbamol works. Tell your doctor if you are using pyridostigmine. ?? Do not drink alcohol while you are using this medicine. ?? Tell your doctor if you use anything else that makes you sleepy. Some examples are allergy medicine, narcotic pain medicine, and alcohol. Warnings While Using This Medicine: ?? Tell your doctor if you are or , or if you have kidney disease, liver disease, or myasthenia gravis. ?? This medicine may make you dizzy or drowsy. Do not drive or do anything that could be dangerous until you know how this medicine affects you. ?? Tell any doctor or dentist who treats you that you are using this medicine. This medicine may affect certain medical test results. ?? Your doctor will check your progress and the effects of this medicine at regular visits. Keep all appointments. ?? Keep all medicine out of the reach of children. Never share your medicine with anyone. Possible Side Effects While Using This Medicine: Call your doctor right away if you notice any of these side effects: ?? Allergic reaction: Itching or hives, swelling in your face or hands, swelling or tingling in your mouth or throat, chest tightness, trouble breathing ?? Blurred vision, redness, pain, or swelling of the eyes ?? Dark urine or pale stools, nausea, vomiting, loss of appetite, stomach pain, yellow skin or eyes ?? Fever ?? Lightheadedness, dizziness, fainting ?? Seizures ?? Slow heartbeat ?? Unusual bleeding, bruising, or weakness If you notice these less serious side effects, talk with your doctor: ?? Confusion, trouble sleeping ?? Headache ?? Warmth or redness in your face, neck, arms, or upper chest If you notice other side effects that you think are caused by this medicine, tell your doctor. Call your doctor for medical advice about side effects. You may report side effects to FDA at 8-543-QOX-6223 ?? 2017 [employer] Information is for End User's use only and may not be sold, redistributed or otherwise used for commercial purposes. The above information is an forestry aid technician only. It is not intended as medical advice for individual conditions or treatments. Talk to your doctor, nurse or pharmacist before following any medical regimen to see if it is safe and effective for you. documented in this encounter Medications at Time [...] MIGRAINE) 250-250-65 mg per tablet daily. 08/03/2020 ARIPiprazole (ABILIFY) 5 mg tablet Take 5 mg by mouth daily 10/26/2020 baclofen (LIORESAL) 10 mg tablet 20 mg 4 (four) times a day Takes 1-2 tabs QID 06/19/2007 01/04/2021 calcium carb,glucon-vitam in D2 500 mg calcium -200 unit tablet daily 04/19/2020 cholecalciferol (VITAMIN D-3) 2,000 unit tablet TAKE [...] day As need for pain 90 tablet 01/19/2020 02/11/2020 lidocaine (LIDODERM) 5 % Place 1 patch on the skin daily as needed for pain 07/27/2016 08/03/2020 magnesium oxide 400 mg capsule 250 mg 3 tablets a day 04/19/2020 methocarbamoL (ROBAXIN) 500 mg tablet Take 1 tablet (500 mg total) by mouth 4 (four) times a day as needed for muscle spasms 120 tablet 3 01/19/2020 02/13/2020 omega 5-yzo-bua-fish oil 1,000 mg (120 mg-180 mg) capsule Take 1 capsule by mouth every morning 09/05/2022 pktp-hcbf-oxt-yuc -idt-rxuy-jnl (TUMERSAID) [phone] mg tablet daily 04/19/2020 turmeric root extract 500 mg capsuleIndication s:OTC Take 1,350 mg by mouth every morning 09/05/2022 documented as of this encounter Ordered Prescriptions Prescription Sig Dispense Quantity Refills Last Filled Start Date End Date methocarbamoL (ROBAXIN) 500 mg tablet Take 1 tablet (500 mg total) by mouth 4 (four) times a day as needed for muscle spasms 120 tablet 3 01/19/2020 02/13/2020 HYDROcodone-acetam inophen (NORCO) 7.5-325 mg per tabletIndications: Pain Take 1 tablet by mouth 3 (three) times a day As need for pain 90 tablet 01/19/2020 02/11/2020 documented in this encounter Discharge Disposition Disposition Code Departure Means Destination Discharge to home or self care documented in this encounter Progress Notes * Nancy Fernandez MD - 01/19/2020 1:45 PM CDT Patient Name: Katrina Camarena : 1960 Today's Date: 01/19/2020 PCP: Felicitas Samuel MD Referring: No ref. provider found This was a telemedicine visit with Katrina Camarena alone which took place via Real-time video connection (InTouch, Zoom or similar). During the visit, I was located in the office and the patient was located at her home in the [facility]. The patient visit started at 1400 and ended at 1420. Totalencounter time was 25, which includes time spent today on pre charting, the patient encounter, and post charting. The patient: has been informed that the visit may not be secure and acknowledged the information. The option of participating in a telephone or video visit during the [address] emergencywas explained to them. After being given an opportunity to ask questions about and discuss this type of visit, they verbally consented to proceeding with the telephone/video visit and understand thatthis service replaces an office visit and they may be billed and/or responsible for any applicable copayments. Nancy Fernandez MD Chief Complaint Patient presents with ??? Back Pain lower back pain HPI Historical Info: KATRINA CAMARENA is a patient initially seen in the Pain Center in July [address] Iglesias for her ongoing muscular pain in the neck, shoulder, upper back and low back. ? Past meds: ?? - nortriptyline/amitriptyline- urinary retention. ?? - Lyrica did not work - Gabapentin caused side effects - T#3 - tramadol - cyclobenzaprine - too drowsy - Lidoderm - meloxicam - Savella 06/10/19: Has been taking meloxicam for a [...] a regular exercise routine.?? -??Physical therapy notes??Fall 2019: still has daily LBP and pain between the shoulder blades, but it is more manageable. ??She has gone to 9 sessions with the plan to return to physical therapy after her trip. ?? Interventions: ?? - L4, 5, S1 RFA 2013 - sig benefit??for many years - L4, L4, S1 RFA Jul 2018- sig benefit for 9 mo - SI injection, bilateral 03/10/19- helped with pain in buttock and groin 06/10/19: b/l SIJ 06/30/19: Right L3-S1 RFA: no pain nrelief 07/07/19: Left L3-S1 RFA? INTERVAL HISTORY (01/19/2020): Katrina Camarena returns to clinic today. She presents for ongoing management of low back pain. Pain is at low back pain. Radiation: none Numbness: none Weakness: none Pain Assessment Pain Score: 4 Patient's Stated Pain Goal: 2 Pain Location: Back (Lumbar) Pain Descriptors: Spasm Pain Frequency: Constant/continuous Muscle spasms are her primary problem recently. Whole back tightens up to the point of being unableto stand up straight. Worse with changes in weather. Baclofen helps some but not enough. Heat helps. Overall she is doing better than usual from a pain standpoint because of the warm weather. She is in good spirits and says things are going well for her. The pain increases with weather changes and decreases with heat, meds. Her ADLs are difficult, but manageable on her own. Last visit 09/22/2019 we did the following: Intervention: bilateral SI injection - helped some- thinks she just generally doing well because ofthe warm weather. Medication adjustments: continue current meds for now Referrals: none excedrine migraine (APAP/ ASA/ caffeine) abilify Baclofen 10-20mg qid - taking 2 tabs at least 3 times a day, rarely 4 times Duloxetine 90mg/day Hydrocodone/APAP 7.5/325 tid prn - hleps, no side effects Current Pain meds: Pain Medications wkxvvbqtqzejd-nqqucqk-qomjausa (EXCEDRIN MIGRAINE) 250-250-65 mg per tablet daily. ARIPiprazole (ABILIFY) 5 mg tablet Take 5 mg by mouth daily baclofen (LIORESAL) 10 mg tablet 20 mg 4 (four) times a day Takes 1-[address] (CYMBALTA) 30 mg capsule 30 mg Total dose 90 mg a day HYDROcodone-acetaminophen (NORCO) 7.5-325 mg per tablet Take 1 tablet by mouth 3 (three) times a day As need for pain DULoxetine DR (CYMBALTA) 60 mg capsule Take 1 capsule (60 mg total) by mouth daily. No results found. Review of Systems Review of Systems ROS all other systems negative other than as documented in HPI Patient's Medications New Prescriptions No medications on file Previous Medications YCDTCJKAEIOKM-AMJRZXK-GKCJVBMD (EXCEDRIN MIGRAINE) 250-250-65 MG PER TABLET daily. Authorizing Provider: Joaquín Beckman MD Notes: [...] Provider: Joaquín Beckman MD Notes: -- CALCIUM CARB,GLUCON-VITAMIN D2 500 MG CALCIUM -200 UNIT TABLET Authorizing Provider: Joaquín Beckman MD Notes: -- CHOLECALCIFEROL (VITAMIN D-3) 2,000 UNIT TABLET TAKE 1 TABLET DAILY.- 1999IU Authorizing Provider: Joaquín Beckman MD Notes: -- CLOBETASOL (TEMOVATE) 0.05 % CREAM Authorizing Provider: Joaquín Beckman MD Notes: -- DULOXETINE DR (CYMBALTA) 30 MG CAPSULE 30 mg Total dose 90 mg a day Authorizing Provider: Joaquín Beckman MD Notes: >> CLARISA LAMBERT SunJan 19, 2020 1:32 PM 30 mg and 60 mg tablet daily Total dose90 mgs DULOXETINE DR (CYMBALTA) 60 MG CAPSULE Take 1 capsule (60 mg total) by mouth daily. Authorizing Provider: Paul Back MD Notes: >> CLARISA LAMBERT SunJan 19, 2020 1:31 PM Taking 60 mg and 30 mg a day. Total dose90 mg a day ESTRADIOL-NORETHINDRONE (ACTIVELLA) 1-0.5 MG PER TABLET Authorizing Provider: Joaquín Beckman MD Notes: -- FEXOFENADINE (EILEEN) 180 MG TABLET Take 180 mg by mouth daily. Authorizing Provider: Joaquín Beckman MD Notes: -- LIDOCAINE (LIDODERM) 5 % Place 1 patch on the skin daily as needed for pain Authorizing Provider: Joaquín Beckman MD Notes: -- MAGNESIUM OXIDE 400 MG CAPSULE 250 mg 3 tablets a day Authorizing Provider: Joaquín Beckman MD Notes: -- MONTELUKAST (SINGULAIR) 10 MG TABLET nightly Authorizing Provider: Joaquín Beckman MD Notes: -- OMEGA 0-RLU-DRM-FISH OIL 1,000 MG (120 MG-180 MG) CAPSULE daily Authorizing Provider: Joaquín Beckman MD Notes: -- ACNY-IKEY-YNT-EMS-CCN-SKQE-HOR (TUMERSAID) [phone] MG TABLET Take by mouth. Authorizing Provider: Joaquín Beckman MD Notes: -- TURMERIC ROOT EXTRACT 500 MG CAPSULE Take 1,500 mg by mouth. Authorizing Provider: Joaquín Beckman MD Notes: -- ZOLPIDEM (AMBIEN) 10 MG TABLET TAKE 1 TABLET AT BEDTIME NEEDED FOR SLEEP. Authorizing Provider: Joaquín Beckman MD Notes: -- Modified Medications Modified Medication Previous Medication HYDROCODONE-ACETAMINOPHEN (NORCO) 7.5-325 MG PER TABLET HYDROcodone- acetaminophen (NORCO) 7.5-325 mg per tablet Take 1 tablet by mouth 3 (three) times a day As need for pain Take 1 tablet by mouth 3 (three) times a day As need for pain Authorizing Provider: Nancy Fernandez MD Authorizing Provider: Nancy Fernandez MD Notes: -- Notes: Ok to refill- she is a couple of days early due to brief pain flare. Discontinued Medications CELECOXIB (CELEBREX) 200 MG CAPSULE Take 1 capsule (200 mg total) by mouth daily Authorizing Provider: Grzegorz Narayan Jr., MD Notes: -- Allergies Allergen Reactions ??? Decongestant Capsule Other (See comments) bladder spasms with decongestants Physical Exam There were no vitals filed for this visit. There is no height or weight on file to calculate BMI. Physical Exam Constitutional: Appearance: Normal appearance. She is normal weight. HENT: Head: Normocephalic and atraumatic. Nose: Nose normal. Eyes: Conjunctiva/sclera: Conjunctivae normal. Neck: Musculoskeletal: Normal range of motion. Pulmonary: Effort: Pulmonary effort is normal. Neurological: [...] low back pain without sciatica Yes ??? Fibromyalgia ??? Sacroiliitis (CMS/HCC) ??? Chronic use of opiate drug for therapeutic purpose Plan 1. Interventions: none today 2. Medications: - Trial of methocarbamol - told her she can take it in addition to baclofen, but if it works well for her we can try to reduce the baclofen so she is not on so many medications. Other considerations:tizanidine. - hydrocodone refilled today The patient shows no [...] the lowest dose necessary. Chronic Opioid Therapy (01/19/2020): Current analgesics: hydrocodone/APAP 7.5/325 TID. Daily dose (MME): 22.5mg/day Benzo: no Meds [...] No follow-ups on file. Nancy Fernandez MD * Clarisa Lambert RN - 01/19/2020 1:45 PM CDT 01/19/20 1:36 PM Patient requesting medication refill(s) for: Hydrocodone Patient would like to address with the MD the following issues and/or concerns: Having muscle spasms and having difficulty standing up straight and getting up from a sitting to standing position. Baclofen is helping some but not managing it were she can tolerate. documented in this encounter Plan of Treatment Not on file documented as of this encounter Goals Goal Patient Goal Type Associated Problems Recent Progress Patient-Stated? Author CCM Chronic Pain Care Plan Chronic Care Management Improving( 10:05 AM AIR QUALITY CHEMIST) No Bessy Mancuso, RUBIO Note: Problem: Chronic Pain Goals: 1. Minimize further functional decline 2. Maximize quality of life 3. Control pain Strategies: - Activity/exercise program recommendation - Conservative stepwise pain medicine strategy with multi-disciplinary approach - Recommend healthy lifestyle strategies and compensatory methods as needed documented as of this encounter Visit Diagnoses Diagnosis Chronic bilateral low back pain without sciatica- Primary Fibromyalgia Unspecified myalgia and myositis Sacroiliitis (HCC) Sacroiliitis, not elsewhere classified Chronic use of opiate drug for therapeutic purpose documented in this encounter Discontinued Medications Medication Sig Discontinue Reason Start Date End Da te celecoxib (CeleBREX) 200 mg capsule Take 1 capsule (200 mg total) by mouth daily Therapy completed 06/25/2019 01/19/2020 HYDROcodone-acetaminophe n (NORCO) 7.5-325 mg per tabletIndications:Pain Take 1 tablet by mouth 3 (three) times a day As need for pain Reorder 01/19/2020 01/19/2020 documented as of this encounter Care Teams Motor Analyst Relationship Specialty Start Date End Date Felicitas Samuel MD PCP - General 10/13/16 07/19/20 Reanna Polanco RN Registered Nurse 07/07/19 documented as of this encounter
--- OUTSIDE RECORDS SUMMARY | 2024-07-28 01:08 | XMS_ITS | Encounter Summary ---
Author Organization [facility] Healthcare Address [address] [place] [address] Care Team Providers Care White Sugar Boiler Name Role Phone Felicitas Samuel MD Primary Care Provider + Reason for Referral * Diagnostic Imaging (Routine) - Closed Specialty Diagnoses / Procedures Referred By Contac t Referred To Contact Diagnoses Pain management Procedures FL Fluoroscopy < 1 Hour (Statistical Only) Nancy Fernandez MD Phone: tel: fax: [address] [phone] Referral ID Status Reason Start Date Expiration Date Visits Re quested Visits Authorized [id number] Closed 06/30/2019 01/08/2021 1 1 RETE MIXER Reason for Visit * Diagnostic Imaging (Routine) - Closed Specialty Diagnoses / Procedures Referred By Contac t Referred To Contact Diagnoses Pain management Procedures FL Fluoroscopy < 1 Hour (Statistical Only) Nancy Fernandez MD Phone: tel: fax: [address] [phone] Referral ID Status Reason Start Date Expiration Date Visits Re quested Visits Authorized [id number] Closed 06/30/2019 01/08/2021 1 1 Encounter Details Date Type Department Care Team (Latest Contact Info) Description 06/30/2019 7:36 AM CONCRETE MIXER - 06/30/2019 10:29 AM CONCRETE MIXER Hospital Encounter [facility] [place] [address] Nancy Fernandez MD [address] [facility] [phone] [place] [address] Pain management Discharge Disposition: Discharge to home or self care Social History Tobacco Use Types Packs/Day Years Used Date Smoking Tobacco: Never Smokeless Tobacco: Never Alcohol Use Standard Drinks/Week Comments No 0 (1 standard drink = 0.6 oz pur e alcohol) Comments No Sex and Gender Information Value Date Recorded Sex Assigned at Not on file Legal Sex Female 2:03 AM CONCRETE MIXER Gender Identity Female 08/26/2020 6:26 AM CONCRETE MIXER Sexual Orientation Straight 08/26/2020 6: 26 AM CONCRETE MIXER documented as of this encounter Medications at [...] mg 3 tablets a day 04/19/2020 omega 6-rmm-cyz-fish oil 1,000 mg (120 mg-180 mg) capsule Take 1 capsule by mouth every morning 09/05/2022 tjpq-jptd-iln-yuc -rrq-hzxg-wkk (TUMERSAID) [phone] mg tablet daily 04/19/2020 turmeric root extract [...] Plan Chronic Care Management Improving( 10:05 AM CONCRETE MIXER) Bessy Gayle, RN Note: Problem: Chronic Pain [...] ONLY) Schedule Routine, Read Routine (OP Routine) 06/30/2019 12:35 PM CONCRETE MIXER Pain management documented in this encounter Results * FL Fluoroscopy < 1 Hour (Statistical Only) (06/30/2019 12:35 PM CONCRETE MIXER) Narrative [facility] - 06/30/2019 2:01 PM CONCRETE MIXER The images from this study are not interpreted by Radiology. ??Please refer to the physician's procedure / OR operative note. us Nancy Fernandez MD IMG FLUOROSCOPY PROCEDURES Final Result [facility] documented in this encounter Visit Diagnoses Diagnosis Pain management documented in this encounter Care Teams White Sugar Boiler Relationship Specialty Start Date End Date Felicitas Samuel MD PCP - General 10/13/16 07/19/20 documented as of this encounter
--- OUTSIDE RECORDS SUMMARY | 2024-07-28 01:08 | XMS_ITS | Encounter Summary ---
Author Organization [facility] Healthcare Address [address] [facility] [address] [place] [address] Care Team Providers Care Skein Winder Name Role Phone Reanna Polanco RN [facility] Rohan Salvador MD Primary Care Provider Reason for Visit * Reason Onset Date Comments ROBIN APPOINTMENT 08/05/2020 Encounter Details Date Type Department Care Team (Late st Contact Info) Description 08/03/2020 Telephone [facility] [place] [facility] [address] [facility] [address] [place], [place] [id number] Nancy Fernandez MD [address] [facility] [address] [facility] [phone] [place], [place] [id number] OCTOBER APPOINTMENT Social History Tobacco Use Types Packs/Day Years Used Date Smoking Tobacco: Former Cigarettes Smokeless Tobacco: Never Alcohol Use Standard Drinks/Week Comments No 0 (1 standard drink = 0.6 oz pur e alcohol) denies Comments No Sex and Gender Information Value Date Recorded Sex Assigned at Not on file Legal Sex Female 2:03 AM CHIP DRIER Gender Identity Female 08/26/2020 6:26 AM CHIP DRIER Sexual Orientation Straight 08/26/2020 6: 26 AM CHIP DRIER documented as of this encounter Miscellaneous Notes * Telephone Encounter - Clarisa Chavez RN - 08/03/2020 12:59 PM CHIP DRIER Please call pt and schedule her for telemedicine or in office FV2 with Dr. Fernandez for 3 months out[address] Pt saw Dr. Fernandez for telemedicine appt today Thanks DRIER documented in this encounter Plan of Treatment Not on file documented as of this encounter Goals Goal Patient Goal Type Associated Problems Recent Progress Patient-Stated? Author CCM Chronic Pain Care Plan Chronic Care Management Improving( 10:05 AM CHIP DRIER) No Bessy Mancuso, RUBIO Note: Problem: Chronic Pain Goals: 1. Minimize further functional decline 2. Maximize quality of life 3. Control pain Strategies: - Activity/exercise program recommendation - Conservative stepwise pain medicine strategy with multi-disciplinary approach - Recommend healthy lifestyle strategies and compensatory methods as needed documented as of this encounter Visit Diagnoses Not on filedocumented in this encounter Care Teams Skein Winder Relationship Specialty Start Date End Date Rohan Rothman MD [address] [facility] [address] [address] PCP - General 07/20/20 05/12/24 Reanna Polanco, RN Registered Nurse 07/07/19 documented as of this encounter
--- OUTSIDE RECORDS SUMMARY | 2024-07-28 01:08 | XMS_ITS | Encounter Summary ---
Author Organization [facility] Healthcare Address [address] [facility] [place] [address] Care Team Providers Care Gas Fitter Apprentice Name Role Phone Felicitas Samuel MD Primary Care Provider + Reason for Visit * Reason Onset Date Comments Pre-Surgical Call 07/03/2019 Encounter Details Date Type Department Care Team (Late st Contact Info) Description 07/03/2019 Telephone [facility] [place] [facility] [address] [facility] [address] [place], [place] [id number] Nancy Fernandez MD [address] [facility] [address] [facility] [phone] [place], [place] [id number] Pre-Surgical Call Social History Tobacco Use Types Packs/Day Years Used Date Smoking Tobacco: Never Smokeless Tobacco: Never Alcohol Use Standard Drinks/Week Comments No 0 (1 standard drink = 0.6 oz pur e alcohol) Comments No Sex and Gender Information Value Date Recorded Sex Assigned at Not on file Legal Sex Female 2:03 AM EDUCATIONAL ADMINISTRATION TEACHER Gender Identity Female 08/26/2020 6:26 AM EDUCATIONAL ADMINISTRATION TEACHER Sexual Orientation Straight 08/26/2020 6: 26 AM EDUCATIONAL ADMINISTRATION TEACHER documented as of this encounter Miscellaneous Notes * Telephone Encounter - Letitia Flores RN - 07/03/2019 9:54 AM EDUCATIONAL ADMINISTRATION TEACHER Pre call done ATIONAL ADMINISTRATION TEACHER documented in this encounter Plan of Treatment Not on file documented as of this encounter Goals Goal Patient Goal Type Associated Problems Recent Progress Patient-Stated? Author CCM Chronic Pain Care Plan Chronic Care Management Improving( 10:05 AM EDUCATIONAL ADMINISTRATION TEACHER) No Bessy Mancuso, RN Note: Problem: Chronic Pain Goals: 1. Minimize further functional decline 2. Maximize quality of life 3. Control pain Strategies: - Activity/exercise program recommendation - Conservative stepwise pain medicine strategy with multi-disciplinary approach - Recommend healthy lifestyle strategies and compensatory methods as needed documented as of this encounter Visit Diagnoses Not on filedocumented in this encounter Care Teams Gas Fitter Apprentice Relationship Specialty Start Date End Date Felicitas Samuel MD PCP - General 10/13/16 07/19/20 documented as of this encounter
--- OUTSIDE RECORDS SUMMARY | 2024-07-28 01:08 | XMS_ITS | Encounter Summary ---
Author Organization [facility] Healthcare Address [address] [facility] [place] [address] Care Team Providers Care Legal Support Analyst Name Role Phone Felicitas Samuel MD Primary Care Provider + Reanna Polanco RN Unavailable Unavailab le Reason for Visit * Reason Comments Back Pain Encounter Details Date Type Department Care Team (Latest Contact Info) Description 07/07/2019 1:55 PM COMPENSATION ASSOCIATE - 07/07/2019 11:59 PM COMPENSATION ASSOCIATE Hospital Encounter [facility] [place] [facility] [address] [facility] [address] [place] [address] Nancy Fernandez MD [address] [facility] [phone] [place] [address] Pain of lumbar facet joint (Primary Dx); Osteoarthritis of 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; Chronic bilateral low back pain without sciatica; High risk medication use Discharge Disposition: Discharge to home or self care Social History Tobacco Use Types Packs/Day Years Used Date Smoking Tobacco: Never Smokeless Tobacco: Never Alcohol Use Standard Drinks/Week Comments No 0 (1 standard drink = 0.6 oz pur e alcohol) Comments No Sex and Gender Information Value Date Recorded Sex Assigned at Not on file Legal Sex Female 2:03 AM COMPENSATION ASSOCIATE Gender Identity Female 08/26/2020 6:26 AM COMPENSATION ASSOCIATE Sexual Orientation Straight 08/26/2020 6: 26 AM COMPENSATION ASSOCIATE documented as of this encounter Last Filed Vital Signs Vital Sign Reading Time Taken Comments Blood Pressure 159/90 07/07/2019 4:20 PM COMPENSATION ASSOCIATE Pulse 89 07/07/2019 4:20 PM COMPENSATION ASSOCIATE Temperature 37.1 ??C (98.8 ??F) 07/07/2019 2:37 PM CS T Respiratory Rate 18 07/07/2019 4:20 PM COMPENSATION ASSOCIATE Oxygen Saturation 97% 07/07/2019 4:20 PM COMPENSATION ASSOCIATE Inhaled Oxygen Concentration - - Weight 68.5 kg (151 lb) 07/07/2019 2:37 PM COMPENSATION ASSOCIATE Height 172.7 cm (5' 8 ) 07/07/2019 2:37 PM COMPENSATION ASSOCIATE Body Mass Index 22.96 07/07/2019 2:37 PM COMPENSATION ASSOCIATE documented in this encounter Discharge Instructions * Discharge Instructions* Noni Angelo RN - 07/07/2019 3:01 PM COMPENSATION ASSOCIATE PA[facility] MANA[facility]EMENT C[facility] ([facility]) DISCHARGE INSTRUCTIONS MEDICATIONS: [x] Continue your current home medications Start: [] Notify your pharmacy for refill(s) 7 days before you are out of your medication. [] Opioid (Narcotic) Agreement signed and patient received copy. [] Side Effects of Opioid Medications given to patient Resume blood thinner: On Discontinue: PROCEDURE at today's visit: Lumbar Radiofrequency Ablation DIET: [] Resume normal diet [] See [facility] Post Discharge Procedure Information Sheet ACTIVITY: [] Resume normal activity [x] See [facility] Post Discharge Procedure Information Sheet REFERRALS: Physical Therapy [] [facility] ([phone]) [] G[facility] (Graded Motor Imagery) [] [facility] ([phone]) [] G[facility] (Graded Motor Imagery) [] Other: Behavior Medicine [] Pain Psychologist, [facility] Pain Psychology Please call to schedule appointment [phone] or [phone] Diagnostic Test(s): EDUCATION provided on the following: [] Spinal Cord Stimulator Education and DVD. Vendor: FOLLOW UP APPOINTMENTS: [] Return as needed [] Follow up appointment: We will contact you the next business day to obtain: [] An update on your condition [] Your Pain diary scores [] Procedure at your next visit : INSTRUCTIONS before your next procedure: [] See [facility] Pre-Procedure Information Sheet [] Do not eat or drink for six (6) hours before the time/date of the procedure. [] Inquire with your prescribing provider if ok to hold blood thinner for days before procedure. [] Blood work required 2 hours before procedure: [] Iv Technician needed for next procedure Patient provided information and repeated back with understanding. If you need to reach us: For any questions about your procedure, please call the Pain Management Center [phone] (M-F) (8am-4pm) If you need urgent attention after 5 pm and weekends: Call the [facility] Jewish History Professor at [phone] and ask for the Pain Service doctor warehouse insulation worker. RADIOFREQUENCY ABLATION PAIN MANAGEMENT CENTER PATIENT EDUCATION POST-PROCEDURE INFORMATION SHEET After this procedure you may have: ??? Dizziness ??? Numbness in one or both legs ??? Weakness in one or both legs These symptoms generally wear off in 6-8 hours, but are almost always gone by the next morning. ??? Soreness or increased pain at injection site for up to 7 days. ??? You may have a small amount of bruising, bleeding, swelling or soreness at the injection site(s). It is best to apply ice packs for 20 minutes every 1-2 hours for the first 24 hours ??? After 24 hours, if you still have discomfort, you may use a heating pad. Do not leave ice or heat on for more than 20 minutes at a time. Do not sit or lie on top of heating pad. ??? Stand up slowly from a sitting or lying position today to prevent feeling dizzy or lightheaded. ??? Limit activity today. No driving today. You may resume your normal activity, including driving,in the morning. ??? You may take a shower. No bath for 24 hours, which includes a hot tub or swimming pool. ??? It may take 1-2 weeks for this procedure to provide its full benefit. Pain relief usually Lasts 3-24 months. Results vary with each person. Post-procedure Sedation Discharge Instructions /Precautions 1. Effects of sedation * Drugs can stay in body up to 24 hrs. * May feel drowsy, sleepy, dizzy, light headed, or nausea. * May have headache. * May have brief memory loss. 2. Sedation precautions * Do not drive, operate equipment, drink alcohol, smoke, make important legal decisions or sign anylegal documents for at least 24 hours. ??? If you have any questions or problems, please call the Pain Management Center at . ??? For emergencies after 4:00 p.m., you should call the hospital tool shaper set up operator at and ask to speak with the Pain Service doctor warehouse insulation worker. ENSATION ASSOCIATE documented in this encounter Medications at Time [...] cream as needed 06/13/2019 06/06/[address] GUERRAALAMAYA) 30 mg capsule 30 mg Total dose [...] mg 3 tablets a day 04/19/2020 omega 2-lbi-xal-fish oil 1,000 mg (120 mg-180 mg) capsule Take 1 capsule by mouth every morning 09/05/2022 plqq-emcd-dqv-yuc -qek-dtql-lzj (TUMERSAID) [phone] mg tablet daily 04/19/2020 turmeric root extract 500 mg capsuleIndication s:OTC Take 1,350 mg by mouth every morning 09/05/2022 documented as of this encounter Discharge Disposition Disposition Code Departure Means Destination Discharge to home or self care documented in this encounter Progress Notes * Thao Montgomery, DO - 07/07/2019 2:30 PM CST Patient Name: Annette Camarena : 1960 Today's Date: 07/07/2019 PCP: Felicitas Samuel MD Referring: No ref. provider found Chief Complaint Patient presents with ??? Back Pain HPI Historical Info: ANNETTE CAMARENA is a patient initially seen in the Pain Center in July [address] Iglesias for her ongoing muscular pain in the neck, shoulder, upper back and low back. ? Past meds: ?? - nortriptyline/amitriptyline- urinary retention. ?? - Lyrica did not work - Gabapentin caused side effects - T#3 - tramadol - cyclobenzaprine - Lidoderm - meloxicam - Savella 06/10/19: [...] meloxicam and the stomach discomfort returned. ?? PT: she has done a lot of PT in the past with benefit. She enjoys being active and tries to maintain a regular exercise routine. - Physical therapy notes Fall 2018: still has daily LBP and pain between the shoulder blades, but it is more manageable. She has gone to 9 sessions with the plan to return to physical therapy afterher trip. ?? Interventions: ?? - L4, 5, S1 RFA 2013 - sig benefit for many years - L4, L4, S1 RFA Jul 2018- sig benefit for 9 mo - SI injection, bilateral 03/10/19- helped with pain in buttock and groin 06/10/19: b/l SIJ 06/30/19: Right L3-S1 RFA: no lion nrelief 07/07/19: Left L3-S1 RFA INTERVAL HISTORY (07/07/2019): Annette Camarena returns to clinic today for continued management of her low back pain. She was seen last on 06/30/19 where she underwent a right L3-S1 RFA. She does not note any pain relief yet after that RFA. She is here today for Left L3-S1 RFA. She continues to complain of L lower back pain. Pain is non radiating and located around her gluteus. Pain is better with ambulation and worse with sitting. Painis a 3-03/08 She takes Cymbalta, Baclofen and [place] 7.5mg TID PRN which is better than her 4x/day dose prior. Current Pain meds: Pain Medications byguwocaebxnx-cwqgxqu-rcwzukqb (EXCEDRIN MIGRAINE) 250-250-65 mg per tablet daily. ARIPiprazole (ABILIFY) 5 mg tablet Take 5 mg by mouth daily baclofen (LIORESAL) 10 mg tablet 20 mg 4 (four) times a day Takes 1-2 tabs QID celecoxib (CeleBREX) 200 mg capsule Take 1 capsule (200 mg total) by mouth daily DULoxetine DR (CYMBALTA) 30 mg capsule HYDROcodone-acetaminophen (NORCO) 7.5-325 mg per tablet Take 1 tablet by mouth 3 (three) times a day As need for pain DULoxetine DR (CYMBALTA) 60 mg capsule Take 1 capsule (60 mg total) by mouth daily. Review of Systems Review of Systems Constitutional: Negative for chills and fever. Respiratory: Negative for shortness of breath. Cardiovascular: Negative for chest pain. Gastrointestinal: Negative for constipation, nausea and vomiting. Genitourinary: Negative for dysuria. Musculoskeletal: Positive for back pain and joint pain. Negative for neck pain. Skin: Negative for rash. Neurological: Negative for sensory change, focal weakness and weakness. Endo/Heme/Allergies: Does not bruise/bleed easily. all other systems negative other than as documented in HPI Patient's Medications New Prescriptions No medications on file Previous Medications MCKTHRXVIVUMM-DABZGML-QGZBVFUR (EXCEDRIN MIGRAINE) 250-250-65 MG PER TABLET daily. Authorizing Provider: Joaquín Beckman MD Notes: -- ALENDRONATE (FOSAMAX) 70 MG TABLET Authorizing Provider: Joaquín Beckman MD Notes: [...] Authorizing Provider: Joaquín Beckman MD Notes: -- CELECOXIB (CELEBREX) 200 MG CAPSULE Take 1 capsule (200 mg total) by mouth daily Authorizing Provider: Grzegorz Narayan Jr., MD Notes: -- CHOLECALCIFEROL (VITAMIN D-3) 2,000 UNIT TABLET TAKE 1 TABLET DAILY.- 2000IU Authorizing Provider: Joaquín Beckman MD Notes: -- CLOBETASOL (TEMOVATE) 0.05 % CREAM Authorizing Provider: Joaquín Beckman MD Notes: -- DULOXETINE DR (CYMBALTA) 30 MG CAPSULE Authorizing Provider: Joaquín Beckman MD Notes: >> ELSA LANCE Mar 10, 2019 1:00 PM Once daily with the 60mg DULOXETINE DR (CYMBALTA) 60 MG CAPSULE Take 1 capsule (60 mg total) by mouth daily. Authorizing Provider: Paul Back MD Notes: -- ESTRADIOL-NORETHINDRONE (ACTIVELLA) 1-0.5 MG PER TABLET Authorizing Provider: Joaquín Beckman MD Notes: -- FEXOFENADINE (EILEEN) 180 MG TABLET Take 180 mg by mouth daily. Authorizing Provider: Joaquín Beckman MD Notes: -- HYDROCODONE-ACETAMINOPHEN (NORCO) 7.5-325 MG PER TABLET Take 1 tablet by mouth 3 (three) times a day As need for pain Authorizing Provider: Nancy Fernandez MD Notes: -- LIDOCAINE (LIDODERM) 5 % Place 1 patch on the skin daily as needed for pain Authorizing Provider: Joaquín Beckman MD Notes: -- MAGNESIUM OXIDE 400 MG CAPSULE Authorizing Provider: Joaquín Beckman MD Notes: -- MONTELUKAST (SINGULAIR) 10 MG TABLET daily. Authorizing Provider: Joaquín Beckman MD Notes: -- OMEGA 1-FQX-MWX-FISH OIL 1,000 MG (120 MG-180 MG) CAPSULE daily Authorizing Provider: Joaquín Beckman MD Notes: -- OPLZ-TJJW-JBI-POG-ICA-PJAN-HOR (TUMERSAID) [phone] MG TABLET Take by mouth. Authorizing Provider: [...] bladder spasms with decongestants Physical Exam Vitals: 07/07/19 1437 BP: 132/71 Pulse: 93 Resp: 12 Temp: 98.8 ??F (37.1 ??C) SpO2: 96% Weight: 68.5 kg (151 lb) Height: 172.7 cm (5' 8 ) Body mass index is 22.96 kg/m??. Physical Exam Constitutional: Appearance: Normal appearance. She is normal weight. HENT: Head: Normocephalic and atraumatic. Eyes: Conjunctiva/sclera: Conjunctivae normal. Pulmonary: Effort: Pulmonary effort is normal. Abdominal: General: Abdomen is flat. Musculoskeletal: Comments: Strength 5/5 BLE. Lumbar paraspinal muscle tenderness L>R. +Floresita to LLE +Ganslean test LLE Skin: General: Skin is warm and dry. Neurological: General: No focal deficit present. Mental Status: She is alert and oriented to person, place, and time. Cranial Nerves: Cranial nerves are intact. Sensory: Sensation is intact. Motor: Motor function is intact. No weakness. Psychiatric: Mood and Affect: Mood normal. Behavior: Behavior normal. Thought Content: Thought content normal. Judgment: Judgment normal. Assessment The above note documents my personal evaluation of this patient. In addition, I have reviewed and confirmed with the patient and nurse the supportive information documented in today's scanned PatientHealth Questionnaire and Office Note. Encounter Diagnoses Name Primary? Pain of lumbar facet joint Yes ??? Osteoarthritis of 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 ??? Chronic bilateral low back pain without sciatica ??? High risk medication use Plan 1. Interventions: Will proceed with left L3, L4, L5, S1 medial branch nerve RFA at today's visit 2. Medications: Continue Cymbalta and Baclofen The patient shows no signs of aberrant [...] the lowest dose necessary. Chronic Opioid Therapy (07/07/2019): Current analgesics: hydrocodone/APAP 7.5/325 TID. Refilled today Daily dose (MME): 22.5mg/day Benzo: no Meds locked up: She keeps in an unmarked box in the closet and is sure to put them out of sight if anyone is coming into her home (family members, cleaning crew, etc) UDS: 12/12/18 Plan: continue current meds for now. Hydrocodone refilled today. 3. Imaging: No further imaging needed at this current time. 4. Referral: No referrals needed at this current time. 5. Follow-up: In 1 month for re-evaluation of the above regimen. Thao Montgomery DO PM&R PGY3 3:25 PM 07/07/2019 Cosigned by Nancy Fernandez MD at 07/07/2019 4:09 PM COMPENSATION ASSOCIATE ENSATION ASSOCIATE ENSATION ASSOCIATE Associated attestation - Nancy Fernandez MD - 07/07/2019 4:09 PM COMPENSATION ASSOCIATE I have seen and examined the patient on 07/07/19. I agree with the findings and plan of care as documented in the resident's/fellow's note. documented in this encounter Miscellaneous Notes * Op Note - Nancy Fernandez MD - 07/07/2019 2:30 PM CST NAME OF PROCEDURE: Radiofrequency Ablation of Medial Branch Nerves (Lumbar) at left L3, L4, L5, andS1 SURGEON: Nancy Fernandez M.D. SENIOR QA TESTER SURGEON: SENIOR QA TESTER SURGEON: Thao Montgomery D.O. PREPROCEDURAL DIAGNOSES: Other Chronic Pain Lumbar Facet Arthropathy Lumbago POSTPROCEDURAL DIAGNOSES: Other Chronic Pain Lumbar Facet Arthropathy Lumbago INDICATION FOR PROCEDURE: Low back pain The patient had greater than 80 % relief of low back pain following medial branch blocks of bilateral L3, L4, L5, and S1. Based on this improvement, but also because of the return of pain following dissipation of local anesthetic effect, the decision was made to proceed with radiofrequency ablation. PROCEDURE: After reviewing the radiofrequency neural ablation procedure with the patient, includinga discussion of the potential benefits (potential for significant decrease in lower back pain) and risks (no benefit, temporary increase in low back pain, nerve damage, including some possibility forlower extremity weakness and/or numbness), informed consent to proceed with the procedure was obtained. A procedure permit was also signed. The patient was placed on the fluoroscopy table in the prone position. Fluoroscopy was used to identify the appropriate lumbar levels. The lumbar area was prepped with chlorhexadine solution and draped with sterile towels. Sterile technique was used throughout. The needle entry points were infiltrated with 1% lidocaine at appropriate points. 22-gauge insulated needle was brought down to the medial and superior aspects of the transverse process at left L3. Correct needle position was verified using oblique, AP and lateral fluoroscopic images. With the needle at the cephalad margins of the transverse processes, stimulation was carried out for sensory (50 Hz) and motor (2 Hz) testing. With each of these stimulation testing attempts, sensory paresthesias were perceived in the lower back area and a motor response was perceived in the lower back area; however, no sensory or motor responses were perceived in the lower extremity. After successful stimulation testing, lidocaine 2% with 1mg dexamethasone x 2 ml was injected. Subsequently, radiofrequency neural ablation was carried out at a lesion temperature of 80 degrees C for 90 seconds. In this manner, radiofrequency neural ablation lesions were carried out at the transverse processesof left L3, L4, and L5. Attention was then turned to the left S1 level. A 22-gauge insulated needle was advanced to the periosteum of the sacrum, just lateral to the anticipated position of the S1 facet articular process, at the superior border of the sacrum. Correct needle position was verified using AP and lateral fluoroscopic images. Stimulation was carried out for sensory (50 Hz) and motor (2 Hz) testing. With each of these stimulation testing attempts, sensory paresthesias were perceived in the lower back area and a motor response was perceived in the lower back area; however, no sensory or motor responses wereperceived in the lower extremity. After successful stimulation testing, lidocaine 2% with 1mg dexamethasone x 2 ml was injected. Subsequently, radiofrequency neural ablation was carried out at a lesion temperature of 80 degrees C for 90 seconds on left side. Operative Findings: The procedure was completed as planned. Complications: There were no apparent complication. Estimated Blood Loss: None Intraoperative Fluids: None Specimens: None DISPOSITION: Patient discharged home in stable condition. ENSATION ASSOCIATE documented in this encounter Plan of Treatment Not on file documented as of this encounter Goals Goal Patient Goal Type Associated Problems Recent Progress Patient-Stated? Author CCM Chronic Pain Care Plan Chronic Care Management Improving( 10:05 AM COMPENSATION ASSOCIATE) No Bessy Mancuso RN Note: Problem: Chronic Pain Goals: 1. Minimize further functional decline 2. Maximize quality of life 3. Control pain Strategies: - Activity/exercise program recommendation - Conservative stepwise pain medicine strategy with multi-disciplinary approach - Recommend healthy lifestyle strategies and compensatory methods as needed documented as of this encounter Visit Diagnoses Diagnosis Pain of lumbar facet joint- Primary Osteoarthritis of 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 Chronic bilateral low back pain without sciatica High risk medication use documented in this encounter Administered Medications Inactive Administered Medications - up to 3 most recent administrations Medication Order MAR Action Action Date Dose Rate Site dexAMETHasone (DECADRON) 4 mg/mL injection Administer over 2 Minutes, As needed, Starting on Sun07/07/19 at 1552, Intra-Op Given 07/07/2019 3:52 PM COMPENSATION ASSOCIATE 4 mg Hayder k fentaNYL (SUBLIMAZE) preservative free injection As needed, Starting on Sun07/07/19 at 1537, Intra-Op Given 07/07/2019 3:37 PM COMPENSATION ASSOCIATE 50 mcg ketorolac (TORADOL) injection As needed, Starting on Sun07/07/19 at 1537, Intra-Op Given 07/07/2019 3:37 PM COMPENSATION ASSOCIATE 30 mg lidocaine (XYLOCAINE) 40 mg/mL (4 %) preservative free injection As needed, Starting on Sun07/07/19 at 1554, Intra-Op, Indications: Administration of Local AnesthesiaIndications:Administrati on of Local Anesthesia Given 07/07/2019 3:54 PM COMPENSATION ASSOCIATE 5 mL lidocaine PF (XYLOCAINE) 10 mg/mL (1 %) preservative free injection As needed, Starting on Sun07/07/19 at 1554, Intra-Op Given 07/07/2019 3:54 PM COMPENSATION ASSOCIATE 5 mL midazolam (VERSED) injection As needed, Starting on Sun07/07/19 at 1537, Intra-Op Given 07/07/2019 3:37 PM COMPENSATION ASSOCIATE 1 mg documented in this encounter Orders Medications Ordered That Thai ht Not Have Been Administered Count Last Ordered Date First Ordered Date dexAMETHasone (DECADRON) 4 m g/mL injection - ADS Override Pull 1 07/07/2019 fentaNYL (SUBLIMAZE) 50 mcg/ mL preservative free injection - ADS Override Pull 1 07/07/2019 ketorolac (TORADOL) 30 mg/mL (1 mL) injection - ADS Override Pull 1 07/07/2019 lidocaine (XYLOCAINE) 40 mg/ mL (4 %) preservative free injection - ADS Override Pull 1 07/07/2019 lidocaine PF (XYLOCAINE) 10 mg/mL (1 %) preservative free injection - ADS Override Pull 1 07/07/2019 midazolam (VERSED) 1 mg/mL i njection - ADS Override Pull 1 07/07/2019 sodium chloride 0.9% solutio n - ADS Override Pull 1 07/07/2019 documented in this encounter Care Teams Legal Support Analyst Relationship Specialty Start Date End Date Felicitas Samuel MD PCP - General 10/13/16 07/19/20 Reanna Polanco, RN Registered Nurse 07/07/19 documented as of this encounter
--- OUTSIDE RECORDS SUMMARY | 2024-07-28 01:08 | XMS_ITS | Encounter Summary ---
Author Organization [facility] Healthcare Address [address] [facility] [address], [place] [address] Care Team Providers Care Executive Communications Manager Name Role Phone Felicitas Samuel MD Primary Care Provider + Reanna Polanco RN Unavailable Unavailab le Reason for Visit * Reason Onset Date Comments Appointment 09/23/2019 Encounter Details Date Type Department Care Team (Late st Contact Info) Description 09/23/2019 Telephone [facility] [address] [facility] [address] [facility] [address] [place], [place] [id number] Nancy Fernandez MD [address] [facility] [phone] [place] [address] Appointment Social History Tobacco Use Types Packs/Day Years Used Date Smoking Tobacco: Former Smokeless Tobacco: Never Alcohol Use Standard Drinks/Week Comments No 0 (1 standard drink = 0.6 oz pur e alcohol) Comments No Sex and Gender Information Value Date Recorded Sex Assigned at Not on file Legal Sex Female 2:03 AM CARD RUNNER Gender Identity Female 08/26/2020 6:26 AM CARD RUNNER Sexual Orientation Straight 08/26/2020 6: 26 AM CARD RUNNER documented as of this encounter Miscellaneous Notes * Telephone Encounter - Slime Hansen - 09/24/2019 10:10 AM CST LEFT MESSAGE RUNNER documented in this encounter Plan of Treatment Not on file documented as of this encounter Goals Goal Patient Goal Type Associated Problems Recent Progress Patient-Stated? Author CCM Chronic Pain Care Plan Chronic Care Management Improving( 10:05 AM CARD RUNNER) No Bessy Mancuso RN Note: Problem: Chronic Pain Goals: 1. Minimize further functional decline 2. Maximize quality of life 3. Control pain Strategies: - Activity/exercise program recommendation - Conservative stepwise pain medicine strategy with multi-disciplinary approach - Recommend healthy lifestyle strategies and compensatory methods as needed documented as of this encounter Visit Diagnoses Not on filedocumented in this encounter Care Teams Executive Communications Manager Relationship Specialty Start Date End Date Felicitas Samuel MD PCP - General 10/13/16 07/19/20 Reanna Polanco RN Registered Nurse 07/07/19 documented as of this encounter
--- OUTSIDE RECORDS SUMMARY | 2024-07-28 01:08 | XMS_ITS | Encounter Summary ---
Author Organization [facility] Healthcare Address [address] [place] [address] Care Team Providers Care Weighing Station Operator Name Role Phone Reanna Polanco RN [facility] Rohan Salvador MD Primary Care Provider Reason for Visit * Reason Comments Back Pain lower Encounter Details Date Type Department Care Team (Latest Contact Info) Description 08/03/2020 11:32 AM SHANK RANDER - 08/03/2020 11:59 PM SHANK RANDER Hospital Encounter [facility] [address] [facility] [address] [place], [place] [id number] Nancy Fernandez MD [address] [facility] [phone] [place] [address] Osteoarthritis of 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 (Primary Dx); Chronic bilateral low back pain without sciatica; High risk medication use; Fibromyalgia; Muscle spasm Discharge Disposition: Discharge to home or self care Social History Tobacco Use Types Packs/Day Years Used Date Smoking Tobacco: Former Cigarettes Smokeless Tobacco: Never Alcohol Use Standard Drinks/Week Comments No 0 (1 standard drink = 0.6 oz pur e alcohol) denies Comments No Sex and Gender Information Value Date Recorded Sex Assigned at Not on file Legal Sex Female 2:03 AM SHANK RANDER Gender Identity Female 08/26/2020 6:26 AM SHANK RANDER Sexual Orientation Straight 08/26/2020 6: 26 AM SHANK RANDER documented as of this encounter Discharge Instructions * Patient Instructions* Clarisa Chavez, RN - 08/03/2020 12:30 PM SHANK RANDER [facility] ([facility]) [...] [place] Post Discharge Procedure Information Sheet ACTIVITY: [x] Resume normal activity [] See [facility] Post Discharge Procedure Information Sheet REFERRALS: Physical Therapy [] [facility] ([phone]) [] [facility] ([employer]) [] [facility] ([phone]) [] [facility] ([employer]) [x] Other: Continue home exercise plan Behavior Medicine [] Pain Psychologist, [facility] Please call to schedule appointment [phone] or [phone] Diagnostic Test(s): EDUCATION provided on the following: [] Spinal Cord Stimulator Education and DVD. Vendor: FOLLOW UP APPOINTMENTS: [] Return as needed [x] Follow up appointment: 3 months We will contact you the next business to obtain: [] An update on your condition [] Your Pain diary scores [] Procedure at your next visit : INSTRUCTIONS before your next procedure: [] See [facility] Pre-Procedure Information Sheet [] Do not eat or drink for six (6) hours before the time/date of the procedure. [] Inquire with your prescribing provider if ok to hold blood thinner for ( ) days before procedure. [] Blood work required 2 hours before procedure: [] Health Information Managers needed for next procedure [] Pre Procedure instructions will be sent through [employer] or by phone two working days prior to procedure. *Need help with [employer]? Call [phone]. Patient provided information and repeated back with understanding. If you need to reach us: For any questions about your procedure, please call the Pain Management Center [phone] (M-F) (8am-4pm) If you need urgent attention after 5 pm and weekends: Call the [facility] Cooker Helper at [phone] and ask for the Pain Service doctor certifed refrigeration operator. K RANDER documented in this encounter Medications at Time [...] 24 ARIPiprazole (ABILIFY) 5 mg tablet Take 5 mg by mouth daily 10/27/19 21 baclofen (LIORESAL) 10 mg tablet 20 mg [...] day As need for pain 90 tablet 07/13/2020 08/06/19 21 magnesium oxide (MAG-OX) 250 mg (150.8 mg elemental) tabletIndications :hypomagnesemia Take 750 mg by mouth daily 06/06/20 21 methocarbamoL (ROBAXIN) 500 mg tablet Take 2 tablets (1,000 mg total) by mouth 4 (four) times a day as needed for muscle spasms 720 tablet 1 06/07/2020 01/05/20 21 omega 3-uis-ryq-fish oil 1,000 mg (120 mg-180 mg) capsule Take 1 capsule by mouth every morning 09/05/19 23 turmeric root extract 500 mg capsuleIndication s:OTC Take 1,350 mg by mouth every morning 09/05/19 23 documented as of this encounter Discharge Disposition Disposition Code Departure Means Destination Discharge to home or self care documented in this encounter Progress Notes * Nancy Fernandez MD - 08/03/2020 12:30 PM CST Patient Name: Annette Camarena : 1960 Today's Date: 08/03/2020 PCP: Rohan Rothman MD Referring: No ref. provider found This was a telemedicine visit with Annette Camarena alone which took place via Real-time video connection (InTouch, Zoom or similar). During the visit, I was located in the office and the patient was located at her home in the [facility]. The patient visit started at 1225 and ended at 1235. My total encounter time on 08/03/2020 was 23 minutes which was spent in the activities documented above. This includes time spent prior to the [...] understand thatthis service replaces an office visit. Nancy Fernandez MD Chief Complaint Patient presents [...] - meloxicam - Savella - excedrine migraine ([id number]) - baclofen - methocarbamol - duloxetine - [...] 2019 - helped a lot, continues with HEP. ?? Interventions: ?? - L4, 5, S1 RFA 2013 - sig benefit??for many years - L4, L4, S1 RFA Jul 2018- sig benefit for 9 mo - SI injection, bilateral 03/10/19- helped with pain in buttock and groin 06/10/19: b/l SIJ 06/30/19: Right L3-S1 RFA: no pain??nrelief 07/07/19: Left L3-S1 RFA?? - 09/22/19: bilateral SI injection - some benefit ? INTERVAL HISTORY (08/03/2020): Annette A Bowling returns to clinic today. She presents for ongoing management of low back pain. Overall back is doing better. When through a couple of months of physical therapy and it helped a lot ([facility] in [place]). Continues to do her HEP. Last visit she was having a lot of trouble with muscle spasms. Methocarbamol down to less than daily. Baclofen 2-3x/day (was taking qid). Has been walking 1/2 mi per day. Muscle spasms seem to move across the back from hip to hip. Physical therapy - manual therapy, TENS, stretching, strengthening, heat. Notes have been scanned into [employer] and reviewed today. Taking hydrocodone/APAP tid - there were 2 days this month that she only took 2 tabs, which she says is a big deal for her. She alternates with APAP and Asa. Says that the hydrocodone doesn't work quite as well as it used to but it still takes the edge off and makes the pain tolerable. No side effects- drinks a lot of water to avoid constipation. Pain is at low back. Radiation: none Numbness: none Weakness: none Pain Assessment Pain Score: 5 - Moderate pain Pain Location: Back (Lumbar) Pain Radiating Towards: denies Pain Descriptors: Aching Pain Frequency: Constant/continuous Pain Onset: Ongoing The pain increases with too much activity and decreases with rest and medications. Her ADLs are difficult, but manageable on her own. Last visit 04/19/20 we did the following: Intervention: none Medication adjustments: continue current meds for now - patient reported some increased muscle spasms- whole back tightening up to the point of being unable to stand up straight. Baclofen helps but not enough. Consider tizanidine as a replacement for methocarbamol or baclofen. Referrals: physical therapy Current Pain meds: Pain Medications ARIPiprazole (ABILIFY) 5 mg tablet Take 5 [...] Prescriptions No medications on file Previous Medications ALENDRONATE (FOSAMAX) 70 MG TABLET Take 1 [...] Joaquín Beckman MD Notes: >> CLARISA LAMBERT Jan 19, 2020 1:32 PM 30 [...] Provider: Joaquín Beckman MD Notes: -- OMEGA 6-SHQ-WEZ-FISH OIL 1,000 MG (120 MG-180 MG) CAPSULE daily Authorizing Provider: Joaquín Beckman MD Notes: -- TURMERIC ROOT EXTRACT 500 MG CAPSULE Take 1,500 mg by mouth. Authorizing Provider: Joaquín Beckman MD Notes: -- ZOLPIDEM (AMBIEN) 10 MG TABLET TAKE 1 TABLET AT BEDTIME NEEDED FOR SLEEP. Authorizing Provider: Joaquín Beckman MD Notes: -- Modified Medications No medications on file Discontinued Medications [id number] (EXCEDRIN MIGRAINE) 250-250-65 MG PER TABLET daily. Authorizing Provider: Joaquín Beckman MD Notes: -- DULOXETINE DR (CYMBALTA) 60 MG CAPSULE Take 1 capsule (60 mg total) by mouth daily. Authorizing Provider: Paul Back MD Notes: >> CLARISA LAMBERT Mon Jan 19, 2020 1:31 PM Taking 60 mg and 30 mg a day. Total dose90 mg a day LIDOCAINE (LIDODERM) 5 % Place 1 patch [...] Normocephalic and atraumatic. Eyes: Conjunctiva/sclera: Conjunctivae normal. Neck: Musculoskeletal: Normal [...] of 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 Yes ??? Chronic bilateral low back pain without sciatica ??? High risk medication use ??? Fibromyalgia ??? Muscle spasm Plan 1. Interventions: none at this time 2. Medications: Continue current meds for now. She is trying to cut back on the hydrocodone but typically ends up taking tid. Suggested that she try 1/2 tabs here and there to see if she can get by with that. She will try this. The patient shows no signs of aberrant [...] the lowest dose necessary. Chronic Opioid Therapy (08/03/2020): Current analgesics: hydrocodone/APAP 7.5/325 TID (sometimes bid, [...] No referrals needed at this current time. Completed physical therapy- scanned notes reviewed today. Cont. HEP. 5. Follow-up: In 3mo for re-evaluation of the above regimen. The visit is deemed to have MODERATE LEVEL of medical decision making. - 2 or more stable chronic illnesses - Reviewed notes from external sources - physical therapy - Prescription drug management - hydrocodone, muscle relaxants Nancy Fernandez MD K RANDER * Adamaris Lan RN - 08/03/2020 12:30 PM CST 08/03/20 11:44 AM Pain in lower back without radiation Pain 12/06 today Pain is better than when last seen by [facility] Patient requesting medication refill(s) for: Patient would like to address with the MD the following issues and/or concerns: Reason for visit: Our physical space limits our ability to see patients in clinic while following the [facility] social distancing guidelines; a telehealth visit allows us to provide safe, essential and timely care for our patients. K RANDER documented in this encounter Miscellaneous Notes * Addendum Note - Clarisa Chavez RN - 08/03/2020 12:30 PM CSTEncounter addended by: Clarisa Chavez RN on: 08/03/2020 12:58 PM Actions taken: Clinical Note Signed, Charge Capture section accepted, Flowsheet accepted K RANDER * Addendum Note - Sandrita Mariano - 08/03/2020 12:30 PM CSTEncounter addended by: Sandrita Mariano on: 08/03/2020 4:02 PM Actions taken: Procedure log completed, Charge Capture section accepted K RANDER documented in this encounter Plan of Treatment Not on file documented as of this encounter Goals Goal Patient Goal Type Associated Problems Recent Progress Patient-Stated? Author CCM Chronic Pain Care Plan Chronic Care Management Improving( 10:05 AM SHANK RANDER) No Bessy Mancuso, RUBIO Note: Problem: Chronic Pain Goals: 1. Minimize further functional decline 2. Maximize quality of life 3. Control pain Strategies: - Activity/exercise program recommendation - Conservative stepwise pain medicine strategy with multi-disciplinary approach - Recommend healthy lifestyle strategies and compensatory methods as needed documented as of this encounter Visit Diagnoses Diagnosis Osteoarthritis of 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- Primary Chronic bilateral low back pain without sciatica High risk medication use Fibromyalgia Unspecified myalgia and myositis Muscle spasm Spasm of muscle documented in this encounter Discontinued Medications Medication Sig Discontinue Reason Start Date End Da te lidocaine (LIDODERM) 5 % Place 1 patch on the skin daily as needed for pain Therapy completed 07/27/2016 08/03/2020 pjewlrxgnzkqi-amkvsfm-ai ffeine (EXCEDRIN MIGRAINE) 250-250-65 mg per tablet daily. Therapy completed 08/03/[address] (CYMBALTA) 60 mg capsule Take 1 capsule (60 mg total) by mouth daily. Therapy completed 07/18/2018 08/03/2020 documented as of this encounter Care Teams Weighing Station Operator Relationship Specialty Start Date End Date Rohan Rothman MD [address] [facility] [address] [place] [address] PCP - General 07/20/20 05/12/24 Reanna Polanco, RN Registered Nurse 07/07/19 documented as of this encounter
--- OUTSIDE RECORDS SUMMARY | 2024-07-28 01:08 | XMS_ITS | Encounter Summary ---
Author Organization [facility] Healthcare Address [address] [place] [address] Care Team Providers Care Edging Machine Catcher Name Role Phone Felicitas Samuel MD Primary Care Provider + Reason for Visit * Reason Comments Back Pain Encounter Details Date Type Department Care Team (Latest Contact Info) Description 06/30/2019 10:30 AM HEEL CEMENTER MACHINE - 06/30/2019 11:59 PM HEEL CEMENTER MACHINE Hospital Encounter [facility] [place] [facility] [address] [facility] [address] [place], [place] [id number] Nancy Fernandez MD [address] [facility] [id number] [place], [place] [id number] Chronic use of opiate drug for therapeutic purpose (Primary Dx); Pain of lumbar facet joint; Osteoarthritis of 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; Chronic bilateral low back pain without sciatica [...] on file Legal Sex Female 2:03 AM HEEL CEMENTER MACHINE Gender Identity Female 08/26/2020 6:26 AM HEEL CEMENTER MACHINE Sexual Orientation Straight 08/26/2020 6: 26 AM HEEL CEMENTER MACHINE documented as of this encounter Last Filed Vital Signs Vital Sign Reading Time Taken Comments Blood Pressure 142/86 06/30/2019 2:01 PM HEEL CEMENTER MACHINE Pulse 87 06/30/2019 2:01 PM HEEL CEMENTER MACHINE Temperature 36.8 ??C (98.3 ??F) 06/30/2019 10:[address] Respiratory Rate 16 06/30/2019 2:01 PM HEEL CEMENTER MACHINE Oxygen Saturation 97% 06/30/2019 2:01 PM HEEL CEMENTER MACHINE Inhaled Oxygen Concentration - - Weight 69.2 kg (152 lb 8 oz) 06/30/2019 10:48 AM HEEL CEMENTER MACHINE Height 172.7 cm (5' 8 ) 06/30/2019 10:48 AM HEEL CEMENTER MACHINE Body Mass Index 23.19 06/30/2019 10:48 AM HEEL CEMENTER MACHINE documented in this encounter Discharge Instructions * Discharge Instructions* Christiana Harding RN - 06/30/2019 12:31 PM HEEL CEMENTER MACHINE Post-procedure Sedation Discharge Instructions /Precautions 1. Effects [...] anylegal documents for at least 24 hours. [facility] PATIENT EDUCATION [...] 4:00 p.m., you should call the hospital rail flaw detector operator at and ask to speak with the Pain Service doctor tongue lining stitcher. [facility] ([facility]) DISCHARGE INSTRUCTIONS MEDICATIONS: [x] Continue your current home medications Start: [x] Notify your pharmacy for refill(s) 7 days before you are out of your medication. [] Opioid (Narcotic) Agreement signed and patient received copy. [] Side Effects of Opioid Medications given to patient Resume blood thinner: On Discontinue: PROCEDURE at today's visit: Lumbar Radiofrequency Ablation, Right side, L3, L4, L5 and S1 DIET: [x] Resume normal diet [] See [facility] Post Discharge Procedure Information Sheet ACTIVITY: [] Resume normal activity [x] See [facility] Post Discharge Procedure Information Sheet REFERRALS: Physical Therapy [] [facility] Physical Therapy ([phone]) [] [facility] (Graded Motor Imagery) [] [facility] ([phone]) [] [facility] (Graded Motor Imag[employer]) [] Other: Behavior Medicine [] Pain Psychologist, [facility] Pain Psychology Please call to schedule appointment [phone] or [phone] Diagnostic Test(s): EDUCATION provided on the following: [] Spinal Cord Stimulator Education and DVD. Vendor: FOLLOW UP APPOINTMENTS: [] Return as needed [x] Follow up appointment: We will contact you the next business day to obtain: [] An update on your condition [] Your Pain diary scores [x] Procedure at your next visit : Same procedure left siode INSTRUCTIONS before your next procedure: [x] See [facility] Pre-Procedure Information Sheet [x] Do not eat or drink for six (6) hours before the time/date of the procedure. [] Inquire with your prescribing provider if ok to hold blood thinner for days before procedure. [] Blood work required 2 hours before procedure: [x] Prosthetist needed for next procedure Patient provided information and repeated back with understanding. If you need to reach us: For any questions about your procedure, please call the Pain Management Center [phone] (M-F) (8am-4pm) If you need urgent attention after 5 pm and weekends: Call the [facility] Graphic Specialist at [phone] and ask for the Pain Service doctor tongue lining stitcher. CEMENTER MACHINE documented in this encounter Medications at Time [...] mg 3 tablets a day 04/19/2020 omega 1-mma-lmm-fish oil 1,000 mg (120 mg-180 mg) capsule Take 1 capsule by mouth every morning 09/05/2022 ggqm-tnmj-rza-yuc -wxk-xqoa-ics (TUMERSAID) [phone] mg tablet daily 04/19/2020 turmeric root extract 500 mg capsuleIndication s:OTC Take 1,350 mg by mouth every morning 09/05/2022 documented as of this encounter Discharge Disposition Disposition Code Departure Means Destination Discharge to home or self care documented in this encounter Progress Notes * Nancy Fernandez MD - 06/30/2019 11:15 AM CST Patient Name: Annette Camarena : 1960 Today's Date: 06/30/2019 PCP: Felicitas Samuel MD Referring: Nancy Fernandez MD Chief Complaint [...] helped with pain in buttock and groin INTERVAL HISTORY (06/30/2019): Annette Camarena returns to clinic today. She presents for ongoing management of low back pain. Ather last visit she had bilateral SI joint injection, which provided 80% benefit that is ongoing. The relief is primarily in the lower lumbar region and the pain that radiates to her hips. She has very occasional radiation bilaterally to mid-lateral thighs. Pain is worst on the right side. She had LMBB RFA approximately 1 year ago, which she also endorses providing ~80% benefit for several months.She has noticed the pain returning more in the past 2-3 months, but is not sure because she has hadSI joint injections throughout the year. She is taking 3 [place] per day, which is an improvement from often 4/day prior to last SI joint injection. She also continues to take baclofen and Cymbalta. Noside effects with medication. She needs a [place] refill today. Pain is at: bilateral lower lumbar Radiation: to R>L hips Numbness: none Weakness: none The pain is continuous, worst in the morning, and described as aching, nagging, tiring, penetrating, gnawing, and occasionally sharp. It rates 6.5/10 on the numeric pain scale; average 6.5/10. The pain increases with cold, sitting, and standing and decreases with heat, medications, sitting on bed leaning forward. Her ADLs are difficult, but manageable on her own. Last visit we did the following: Intervention: bilateral SI injection Medication adjustments: - d/c meloxicam (stomach upset) - trial celecoxib. Counseled her to stop celecoxib if she had ongoing stomach upset (we don't want to trade one problem for another - pain relief vs. Gastritis/ ulcer). She understands - cont. Other adjuvants, baclofen, duloxetine Referrals: none Current Pain meds: Pain Medications eumfnguboxsrc-muvlzaj-srjdmeos (EXCEDRIN MIGRAINE) 250-250-65 mg per tablet daily. ARIPiprazole (ABILIFY) 5 mg tablet Take 5 mg by mouth daily baclofen (LIORESAL) 10 mg tablet 20 mg 4 (four) times a day Takes 1-2 tabs QID celecoxib (CeleBREX) 200 mg capsule Take 1 capsule (200 mg total) by mouth daily DULoxetine DR (CYMBALTA) 30 mg capsule HYDROcodone-acetaminophen (NORCO) 7.5-325 mg per tablet Starting on 07/04/2019. Take 1 tablet by mouth 3 (three) times a day As need for pain DULoxetine DR (CYMBALTA) 60 mg capsule Take 1 capsule (60 mg total) by mouth daily. No results found. Review of Systems Review of Systems Review of Systems Constitutional: [...] Prescriptions No medications on file Previous Medications EFSBBUVKOYQXC-MZQTMFT-OKMFQHEX (EXCEDRIN MIGRAINE) 250-250-65 MG PER TABLET daily. [...] Joaquín Beckman MD Notes: >> ELSA LANCE Mon Mar 10, 2019 1:00 PM Once daily [...] Provider: Joaquín Beckman MD Notes: -- OMEGA 7-SDA-SUD-FISH OIL 1,000 MG (120 MG-180 MG) CAPSULE daily Authorizing Provider: Joaquín Beckman MD Notes: -- TTSU-DUUO-SAR-ICJ-BTR-YTYV-HOR (TUMERSAID) [phone] MG TABLET Take by mouth. Authorizing Provider: [...] bladder spasms with decongestants Physical Exam Vitals: 06/30/19 1234 06/30/19 1238 06/30/19 1246 06/30/19 1401 BP: 141/95 143/88 143/88 142/86 Pulse: 80 84 83 87 Resp: 21 16 20 16 Temp: SpO2: 97% 98% 98% 97% Weight: Height: Body mass index is 23.19 kg/m??. Physical Exam Constitutional: Appearance: Normal appearance. She is normal weight. HENT: Head: Normocephalic and atraumatic. Eyes: Conjunctiva/sclera: Conjunctivae normal. Neck: Musculoskeletal: Normal range of motion. Pulmonary: Effort: Pulmonary effort is normal. Abdominal: General: Abdomen is flat. Skin: General: Skin is warm and dry. Neurological: General: No focal deficit present. Mental Status: She is alert and oriented to person, place, and time. Cranial Nerves: Cranial nerves are intact. Sensory: Sensation is intact. Motor: Motor function is intact. No weakness. Comments: Strength 5/5 BLE. TTP midline, paraspinal, facets in lumbar region. Mildly TTP over SI joints. Psychiatric: Mood and Affect: Mood normal. Behavior: Behavior normal. Thought Content: Thought content normal. Judgment: Judgment normal. Assessment The above note documents my personal evaluation of this patient. In addition, I have reviewed and confirmed with the patient and nurse the supportive information documented in today's scanned PatientHealth Questionnaire and Office Note. Encounter Diagnoses Name Primary? Pain of lumbar facet joint ??? Osteoarthritis of 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 ??? Chronic bilateral low back pain without sciatica ??? Chronic use of opiate drug for therapeutic purpose Yes Plan 1. Interventions: Given ongoing R>L low back pain and significant benefit from prior lumbar medial branch RFA, we will proceed with right L3, L4, L5, S1 lumbar medial branch nerve RFA at today's visit 2. Medications: Continue Cymbalta and baclofen The patient shows no signs of aberrant [...] the lowest dose necessary. Chronic Opioid Therapy (06/30/2019): Current analgesics: hydrocodone/APAP 7.5/325 TID. Refilled today [...] at this current time. 5. Follow-up: In 1wk for re-evaluation of the above regimen. Elyssa Winslow M.D., Ph.D. Fellow, Pain Management, Department of Anesthesiology [facility], [facility] I provided this service on 06/30/2019 I saw and examed the patient by myself. I reviewed patient's chart, labs and image/result. [facility] the [facility] evaluation [facility] Winslow . I agree with the evaluation and treatment plan as above. Nancy Fernandez, MD [facility] Department of Anesthesiology and Pain 3:34 PM 06/30/2019 CEMENTER MACHINE documented in this encounter Miscellaneous Notes * Perioperative Nursing Note - Kaye Nickerson RN - 06/30/2019 11:15 AM HEEL CEMENTER MACHINE Grounding Pad applied to right posterior thigh CEMENTER MACHINE * Perioperative Nursing Note - Kaye Nickerson RN - 06/30/2019 11:15 AM HEEL CEMENTER MACHINE Grounding pad removed . No redness or breakdown of skin noted . CEMENTER MACHINE * Perioperative Nursing Note - Christiana Harding RN - 06/30/2019 11:15 AM CST Grounding pad right posterior thigh CEMENTER MACHINE * Perioperative Nursing Note - Christiana Harding RN - 06/30/2019 11:15 AM CST Grounding pad removed, skin dry and intact no redness CEMENTER MACHINE * Perioperative Nursing Note - Reanna Love, RUBIO - 06/30/2019 11:15 AM CST To recovery area per wheelchair. Numbness in right leg. Will monitor. CEMENTER MACHINE * Op Note - Nancy Fernandez MD - 06/30/2019 11:15 AM CST NAME OF PROCEDURE: Radiofrequency Ablation of Medial Branch Nerves (Lumbar) at right L3, L4, L5, and S1 SURGEON: Nancy Fernandez M.D. SENIOR TECHNICAL BUSINESS ANALYST SURGEON: SENIOR TECHNICAL BUSINESS ANALYST SURGEON: Aurelia Winslow M.D., Ph.D. PREPROCEDURAL DIAGNOSES: Other Chronic Pain Lumbar Facet Arthropathy Lumbago POSTPROCEDURAL DIAGNOSES: Other Chronic Pain Lumbar Facet Arthropathy Lumbago INDICATION FOR PROCEDURE: Low back pain The patient had greater than 80 % relief of low back pain following medial branch blocks of bilateral L3, L4, L5, and S1 as well as significant relief x9mo after prior RFA. Based on this improvement,but also because of the return of pain [...] superior aspects of the transverse process at right L3. Correct needle position was verified using [...] the lower extremity. After successful stimulation testing, 1ml lidocaine 4% with 1mg dexamethasone x 1.25 ml was injected. Subsequently, radiofrequency neural ablation was carried out at a lesion temperature of 80 degrees C for 90 seconds. In this manner, radiofrequency neural ablation lesions were carried out at the transverse processesof right L3, L4, and L5. Attention was then turned to the right S1 level. A 22-gauge insulated needle was advanced to the periosteum of the sacrum, just lateral to the anticipated position of the S1 facet articular process, at the superior border of the sacrum. Correct needle position was verified using AP and lateral fluoroscopic images. Stimulation was carried out for sensory (50 Hz) and motor (2 Hz) testing. With eachof these stimulation testing attempts, sensory paresthesias were perceived in the lower back area and a motor response was perceived in the lower back area; however, no sensory or motor responses were perceived in the lower extremity. After successful stimulation testing, 1ml lidocaine 4% with 1mg dexamethasone x 1.25 ml was injected. Subsequently, radiofrequency neural ablation was carried out at a lesion temperature of 80 degrees C for 90 seconds on left side. Operative Findings: The procedure was completed as planned. Complications: There were no apparent complication. Estimated Blood Loss: None Intraoperative Fluids: None Specimens: None DISPOSITION: Patient discharged home in stable condition. CEMENTER MACHINE documented in this encounter Plan of Treatment Not on file documented as of this encounter Goals Goal Patient Goal Type Associated Problems Recent Progress Patient-Stated? Author CCM Chronic Pain Care Plan Chronic Care Management Improving( 10:05 AM HEEL CEMENTER MACHINE) No Bessy Mancuso RN Note: Problem: Chronic Pain Goals: 1. Minimize further functional decline 2. Maximize quality of life 3. Control pain Strategies: - Activity/exercise program recommendation - Conservative stepwise pain medicine strategy with multi-disciplinary approach - Recommend healthy lifestyle strategies and compensatory methods as needed documented as of this encounter Visit Diagnoses Diagnosis Chronic use of opiate drug for therapeutic purpose- Primary Pain of lumbar facet joint Osteoarthritis of 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 Chronic bilateral low back pain without sciatica documented in this encounter Administered Medications Inactive Administered Medications - up to 3 most recent administrations Medication Order MAR Action Action Date Dose Rate Site dexAMETHasone (DECADRON) 4 mg/mL injection Administer over 2 Minutes, As needed, Starting on Sun06/30/19 at 1223, Intra-Op Given 06/30/2019 12:23 PM HEEL CEMENTER MACHINE 4 mg Other (Comment) fentaNYL (SUBLIMAZE) preservative free injection As needed, Starting on Sun06/30/19 at 1204, Intra-Op Given 06/30/2019 12:04 PM HEEL CEMENTER MACHINE 50 mcg ketorolac (TORADOL) injection As needed, Starting on Sun06/30/19 at 1206, Intra-Op Given 06/30/2019 12:06 PM HEEL CEMENTER MACHINE 30 mg lidocaine (XYLOCAINE) 40 mg/mL (4 %) preservative free injection As needed, Starting on Sun06/30/19 at 1225, Intra-Op, Indications: Administration of Local AnesthesiaIndications:Admin istration of Local Anesthesia Given 06/30/2019 12:25 PM HEEL CEMENTER MACHINE 5 mL lidocaine PF (XYLOCAINE) 10 mg/mL (1 %) preservative free injection As needed, Starting on Sun06/30/19 at 1227, Intra-Op Given 06/30/2019 12:27 PM HEEL CEMENTER MACHINE 7 mL midazolam (VERSED) injection As needed, Starting on Sun06/30/19 at 1205, Intra-Op Given 06/30/2019 12:05 PM HEEL CEMENTER MACHINE 1 mg documented in this encounter Historical Medications * This list may reflect changes made after this encounter. clobetasol (TEMOVATE) 0.05 % cream as needed 06/13/2019 06/06/2021 added in this encounter Orders Medications Ordered That Thai ht Not Have Been Administered Count Last Ordered Date First Ordered Date dexAMETHasone (DECADRON) 4 m g/mL injection - ADS Override Pull 1 06/30/2019 fentaNYL (SUBLIMAZE) 50 mcg/ mL preservative free injection - ADS Override Pull 1 06/30/2019 ketorolac (TORADOL) 30 mg/mL (1 mL) injection - ADS Override Pull 1 06/30/2019 lidocaine (XYLOCAINE) 40 mg/ mL (4 %) preservative free injection - ADS Override Pull 1 06/30/2019 lidocaine PF (XYLOCAINE) 10 mg/mL (1 %) preservative free injection - ADS Override Pull 1 06/30/2019 midazolam (VERSED) 1 mg/mL i njection - ADS Override Pull 1 06/30/2019 documented in this encounter Care Teams Edging Machine Catcher Relationship Specialty Start Date End Date Felicitas Samuel MD PCP - General 10/13/16 07/19/20 documented as of this encounter
--- OUTSIDE RECORDS SUMMARY | 2024-07-28 01:08 | XMS_ITS | Encounter Summary ---
Author Organization [facility] Address [address] [place] [address] Care Team Providers Care Tie Loader Name Role Phone Reanna Polanco RN [facility] Rohan Salvador MD Primary Care Provider Encounter Details Date Type Department Care Team (Late st Contact Info) Description 08/18/2020 Orders Only [facility] Cardiology [address] [place] [address] Provider, MD Joaquín [address] [place] [id number] Social History Tobacco Use Types Packs/Day Years Used Date Smoking Tobacco: Former Cigarettes Smokeless Tobacco: Never Alcohol Use Standard Drinks/Week Comments No 0 (1 standard drink = 0.6 oz pur e alcohol) denies Comments No Sex and Gender Information Value Date Recorded Sex Assigned at Not on file Legal Sex Female 2:03 AM FAMILY SERVICE CASEWORKER Gender Identity Female 08/26/2020 6:26 AM FAMILY SERVICE CASEWORKER Sexual Orientation Straight 08/26/2020 6: 26 AM FAMILY SERVICE CASEWORKER documented as of this encounter Plan of Treatment Not on file documented as of this encounter Goals Goal Patient Goal Type Associated Problems Recent Progress Patient-Stated? Author CCM Chronic Pain Care Plan Chronic Care Management Improving( 10:05 AM FAMILY SERVICE CASEWORKER) No Bessy Mancuso RN Note: Problem: Chronic Pain Goals: 1. Minimize further functional decline 2. Maximize quality of life 3. Control pain Strategies: - Activity/exercise program recommendation - Conservative stepwise pain medicine strategy with multi-disciplinary approach - Recommend healthy lifestyle strategies and compensatory methods as needed documented as of this encounter Procedures Procedure Name Priority Date/Time Associated Diagnosis Comments CARDIOLOGY DOCUMENT SCAN Routine 08/18/2020 documented in this encounter Results * SCAN - CARDIOLOGY (08/18/2020) Anatomical Region Laterality Modality Other us Historical Provider [facility] C[facility] Final Result documented in this encounter Visit Diagnoses Not on filedocumented in this encounter Care Teams Tie Loader Relationship Specialty Start Date End Date Rohan Rothman MD [address] [facility] [address] [place] [address] PCP - General 07/20/20 05/12/24 Reanna Polanco RN Registered Nurse 07/07/19 documented as of this encounter
--- OUTSIDE RECORDS SUMMARY | 2024-07-28 01:08 | XMS_ITS | Encounter Summary ---
Author Organization [facility] Healthcare Address [address] [facility] [address] [place] [address] Care Team Providers Care Health Education Director Name Role Phone Reanna Polanco RN [facility] Rohan Salvador MD Primary Care Provider Encounter Details Date Type Department Care Team (Late st Contact Info) Description 08/30/2020 Telephone [facility] [address] [facility] [address] [place], [place] [id number] Nancy Fernandez MD [address] [facility] [address] [facility] [phone] [place], [place] [id number] Social History Tobacco Use Types Packs/Day Years [...] on file Legal Sex Female 2:03 AM DELIVER DRIVER Gender Identity Female 08/26/2020 6:26 AM DELIVER DRIVER Sexual Orientation Straight 08/26/2020 6: 26 AM DELIVER DRIVER documented as of this encounter Miscellaneous Notes * Telephone Encounter - Slime Hansen - 09/06/2021 11:47 AM CST done VER DRIVER documented in this encounter Plan of Treatment Not on file documented as of this encounter Goals Goal Patient Goal Type Associated Problems Recent Progress Patient-Stated? Author CCM Chronic Pain Care Plan Chronic Care Management Improving( 10:05 AM DELIVER DRIVER) No Bessy Mancuso, RUBIO Note: Problem: Chronic Pain Goals: 1. Minimize further functional decline 2. Maximize quality of life 3. Control pain Strategies: - Activity/exercise program recommendation - Conservative stepwise pain medicine strategy with multi-disciplinary approach - Recommend healthy lifestyle strategies and compensatory methods as needed documented as of this encounter Visit Diagnoses Not on filedocumented in this encounter Care Teams Health Education Director Relationship Specialty Start Date End Date Rohan Rothman MD [address] [facility] [address] [address] PCP - General 07/20/20 05/12/24 Reanna Polanco, RN Registered Nurse 07/07/19 documented as of this encounter
--- OUTSIDE RECORDS SUMMARY | 2024-07-28 01:08 | XMS_ITS | Encounter Summary ---
Author Organization [facility] Healthcare Address [address] [place] [address] Care Team Providers Care Kindergarten Prep Teacher Name Role Phone Felicitas aSmuel MD Primary Care Provider + Reanna Polanco RN Unavailable Unavailab le Reason for Visit * Reason Comments Back Pain Low. Encounter Details Date Type Department Care Team (Latest Contact Info) Description 04/19/2020 8:27 AM CDT - 04/19/2020 11:59 PM CDT Hospital Encounter [facility] [place] [facility] [address] [place], [place] [id number] Nancy Fernandez MD [address] [facility] [id number] [place] [address] Chronic bilateral low back pain without sciatica (Primary Dx); High risk medication use; Fibromyalgia; Muscle spasm [...] on file Legal Sex Female 2:03 AM CREATIVE SERVICES PRODUCER Gender Identity Female 08/26/2020 6:26 AM CREATIVE SERVICES PRODUCER Sexual Orientation Straight 08/26/2020 6: 26 AM CREATIVE SERVICES PRODUCER documented as of this encounter Discharge Instructions * Patient Instructions* Bessy Mancuso RN - 04/19/2020 9:00 AM CDT [facility] ([facility]) DISCHARGE INSTRUCTIONS MEDICATIONS: [x] Continue your [...] Procedure Information Sheet REFERRALS: Physical Therapy [] [facility] Physical Therapy ([phone]) [] [facility] ([employer]) [] [facility] ([phone]) [] [facility] ([employer]) [x] Other: Physical Therapy order for [facility] in [place], [place] mailed to patient's home. Behavior Medicine [] Pain Psychologist, [facility] Pain Psychology Please call to schedule appointment [phone] or [phone] Diagnostic Test(s): EDUCATION provided on the following: [] Spinal Cord Stimulator Education and DVD. Vendor: FOLLOW UP APPOINTMENTS: [] Return as needed [x] Follow up appointment: [address] Fernandez. Instructed patient to call in May to schedule. We will contact you the next business day to obtain: [] An update on your condition [] Your Pain diary scores [] Procedure at your next visit : INSTRUCTIONS before your next procedure: [] See [facility] Pre-Procedure Information Sheet [] Do not eat or drink for six (6) hours before the time/date of the procedure. [] Inquire with your prescribing provider if ok to hold blood thinner for ( ) days before procedure. [] Blood work required 2 hours before procedure: [] Charge Accounts Audit Clerk needed for next procedure Patient provided information and repeated back with understanding. If you need to reach us: For any questions about your procedure, please call the Pain Management Center [phone] (M-F) (8am-4pm) If you need urgent attention after 5 pm and weekends: Call the [facility] Intellectual Property Legal Assistant at [phone] and ask for the Pain Service doctor ed special education teacher. documented in this encounter Medications at Time [...] (EXCEDRIN MIGRAINE) 250-250-65 mg per tablet daily. 08/03/19 21 alendronate (FOSAMAX) 70 mg tabletIndications :Post-Menopausal Osteoporosis [...] 90 mg a day 08/13/2018 06/06/[address] (CYMBALTA) 60 mg capsule Take 1 capsule (60 mg total) by mouth daily. 30 capsule 07/18/2018 08/03/19 21 HYDROcodone-aceta minophen (NORCO) 7.5-325 mg per tabletIndications :Pain Take 1 tablet by mouth 3 (three) times a day As need for pain 90 tablet 04/16/2020 05/05/20 20 lidocaine (LIDODERM) 5 % Place 1 patch on the skin daily as needed for pain 07/27/2016 08/03/19 21 magnesium oxide (MAG-OX) 250 mg (150.8 mg elemental) tabletIndications :hypomagnesemia Take 750 mg by mouth daily 06/06/20 21 methocarbamoL (ROBAXIN) 500 mg tablet Take 2 tablets (1,000 mg total) by mouth 4 (four) times a day as needed for muscle spasms 120 tablet 3 02/13/2020 06/07/20 20 omega 5-bwl-mqt-fish oil 1,000 mg (120 mg-180 mg) capsule Take 1 capsule by mouth every morning 09/05/19 23 turmeric root extract 500 mg capsuleIndication s:OTC Take 1,350 mg by mouth every morning 09/05/19 23 documented as of this encounter Discharge Disposition Disposition Code Departure Means Destination Discharge to home or self care documented in this encounter Progress Notes * Nancy Fernandez MD - 04/19/2020 9:00 AM CDT Patient Name: Katrina Camarena : 1960 Today's Date: 04/19/2020 PCP: Felicitas Samuel MD Referring: No ref. provider found This was a telemedicine visit with Katrina Camarena alone which took place via Real-time video connection (InTouch, Zoom or similar). During the visit, I was located in the office and the patient was located at her home in the [facility]. The patient visit started at 0855 and ended at 0910. Totalencounter time was 25 minutes, which includes time spent today on pre [...] Patient presents with ??? Back Pain Low. HPI Historical Info: KATRINA CAMARENA is a [...] injection - some benefit ?? INTERVAL HISTORY (04/19/2020): Katrina Camarena returns to clinic today. She presents for ongoing management of low back pain. Pain is at low back. Radiation: none Numbness: none - sometimes in feet, has gotten better Weakness: none Pain Assessment Pain Score: 7 Pain Location: Back (Lumbar) Pain Descriptors: Aching, Tightness, Penetrating Pain Frequency: Constant/continuous Overall things are a little better from a pain standpoint. Says I'm better, but I'm frustrated. Muscles tighten up with being on her feet for any length of time. Difficulty standing up straight. Describes kyphotic posture with getting up in the am- takes awhile to get up and straight. Get better with moving but then get worse again. Heat helps. Low back muscles are the problem. Started methocarbamol last visit - taking 1000 mg qid. No associated drowsiness with the methocarbamol but she thinks it causes her to lack ambition. Works really well when takes with the baclofen, but then she describes herself as being worthless for the rest of the day - unable to get anything done. The pain increases with standing and decreases with medications, heat. Her ADLs are difficult, but manageable on her own. Goal is to start walking to combat osteoporosis, but pain prevents walking. Last visit 01/19/20 (telemedicine) we did the following: Intervention: none Medication adjustments: trial of methocarbamol. Other considerations: tizanidine Referrals: none Last visit - having a lot of problems with muscle spasms- Whole back tightens up to the point of being unable to stand up straight. Worse with changes in weather. Baclofen helps some but not enough. Heat helps. Current Pain meds: Pain Medications dnwgxltpqfhio-cnynizs-vrnyylmg (EXCEDRIN MIGRAINE) 250-250-65 mg per tablet daily. [...] times a dayas needed for muscle spasms DULoxetine DR (CYMBALTA) 60 mg capsule Take 1 capsule (60 mg total) by mouth daily. No results found. Review of Systems Review of Systems ROS all other systems negative other than as documented in HPI Patient's Medications New Prescriptions No medications on file Previous Medications WGEUGNSFOVIPF-AFQJAXF-LLUPDYPZ (EXCEDRIN MIGRAINE) 250-250-65 MG PER TABLET daily. [...] Joaquín Beckman MD Notes: >> MO LAMBERT SunJan 19, 2020 1:32 PM 30 mg and 60 mg tablet daily Total dose [address] (CYMBALTA) 60 MG CAPSULE Take 1 capsule (60 mg total) by mouth daily. Authorizing Provider: Paul Back MD Notes: >> MO LAMBERT SunJan 19, 2020 1:31 PM Taking 60 mg and 30 mg a day. Total dose90 mg a day ESTRADIOL-NORETHINDRONE (ACTIVELLA) 1-0.5 MG PER TABLET daily [...] Provider: Joaquín Beckman MD Notes: -- OMEGA 0-KNW-SNF-FISH OIL 1,000 MG (120 MG-180 MG) CAPSULE daily Authorizing Provider: Joaquín Beckman MD Notes: -- TURMERIC ROOT EXTRACT 500 MG CAPSULE Take 1,500 mg by mouth. Authorizing Provider: Joaquín Beckman MD Notes: -- ZOLPIDEM (AMBIEN) 10 MG TABLET TAKE 1 TABLET AT BEDTIME NEEDED FOR SLEEP. Authorizing Provider: Joaquín Beckman MD Notes: -- Modified Medications No medications on file Discontinued Medications CALCIUM CARB,GLUCON-VITAMIN D2 500 MG CALCIUM -200 UNIT TABLET daily Authorizing Provider: Joaquín Beckman MD Notes: -- CHOLECALCIFEROL (VITAMIN D-3) 2,000 UNIT TABLET TAKE 1 TABLET DAILY.- 2000IU Authorizing Provider: Joaquín Beckman MD Notes: -- FEXOFENADINE (EILEEN) 180 MG TABLET Take 180 mg by mouth daily. Authorizing Provider: Joaquín Beckman MD Notes: -- MAGNESIUM OXIDE 400 MG CAPSULE 250 mg 3 tablets a day Authorizing Provider: Joaquín Beckman MD Notes: -- LBVG-BQEZ-KSS-KQF-XRF-LECX-HOR (TUMERSAID) [phone] MG TABLET daily Authorizing Provider: Joaquín Beckman MD [...] normal. Pulmonary: Effort: Pulmonary effort is normal. Neurological: [...] low back pain without sciatica Yes ??? High risk medication use ??? Fibromyalgia ??? Muscle spasm Plan 1. Interventions: none at this time 2. Medications: The patient shows no signs [...] the lowest dose necessary. Chronic Opioid Therapy (04/19/2020): Current analgesics: hydrocodone/APAP 7.5/325 TID. Daily dose [...] a home exercise program. 5. Follow-up: In 3mo for re-evaluation of the above regimen. Orders Placed This Encounter Procedures ??? Ambulatory referral order to Physical Therapy - Activity intolerance due to low back muscle spasms. Standing Status: Future Standing Expiration Date: 04/19/2021 Referral Priority: Routine Referral Type: Consultation Referral Reason: Specialty Services Required Referral Location: [facility] Physical Therapy [facility] Specialty: Physical Therapy Number of Visits Requested: 24 No follow-ups on file. Nancy Fernandez MD * Bessy Mancuso RN - 04/19/2020 9:00 AM CDT 04/19/20 8:49 AM Patient requesting medication refill(s) for: No Patient would like to address with the MD the following issues and/or concerns: No Reason for visit: Our physical space limits our ability to see patients in clinic while following the [facility] social distancing guidelines; a telehealth visit allows us to provide safe, essential and timely care for our patients. documented in this encounter Miscellaneous Notes * Addendum Note - Sandrita Mariano - 04/19/2020 9:00 AM CDTEncounter addended by: Sandrita Mariano on: 04/19/2020 4:11 PM Actions taken: Procedure log completed documented in this encounter Plan of Treatment Not on file documented as of this encounter Goals Goal Patient Goal Type Associated Problems Recent Progress Patient-Stated? Author CCM Chronic Pain Care Plan Chronic Care Management Improving( 10:05 AM CREATIVE SERVICES PRODUCER) No Bessy Mancuso, RN Note: Problem: Chronic Pain Goals: 1. Minimize further functional decline 2. Maximize quality of life 3. Control pain Strategies: - Activity/exercise program recommendation - Conservative stepwise pain medicine strategy with multi-disciplinary approach - Recommend healthy lifestyle strategies and compensatory methods as needed documented as of this encounter Visit Diagnoses Diagnosis Chronic bilateral low back pain without sciatica- Primary High risk medication use Fibromyalgia Unspecified myalgia and myositis Muscle spasm Spasm of muscle documented in this encounter Discontinued Medications Medication Sig Discontinue Reason Start Date End Da te cholecalciferol (VITAMIN D-3) 2,000 unit tablet TAKE 1 TABLET DAILY.- 2000IU Therapy completed 04/19/2020 fexofenadine (EILEEN) 180 mg tablet Take 180 mg by mouth daily. Therapy completed 04/19/2020 yfrz-pvgz-ccm-yuc-luci-ch am-hor (TUMERSAID) [phone] mg tablet daily Duplicate order 04/19/2020 calcium carb,glucon-vitamin D2 500 mg calcium -200 unit tablet daily Duplicate order 04/19/2020 magnesium oxide 400 mg capsule 250 mg 3 tablets a day Duplicate order 04/19/2020 documented as of this encounter Historical Medications * This list may reflect changes made after this encounter. CALCIUM CARBONATE-VITAMIN D3 ORAL Take 1 tablet by mouth 2 (two) times a day Calcium Carbonate 1,200 mg with Vitamin D 1,000 international units take 2 daily. magnesium oxide (MAG-OX) 250 mg (150.8 mg elemental) tabletIndications :hypomagnesemia Take 750 mg by mouth daily 06/06/20 21 cetirizine (ZyrTEC) 10 mg tablet Take 1 tablet by mouth daily 01/28/2020 12/01/19 21 alendronate (FOSAMAX) 70 mg tabletIndications :Post-Menopausal Osteoporosis Take 1 tablet (70 mg total) by mouth once a week Sunday04/02/2020 02/26/20 24 added in this encounter Care Teams Kindergarten Prep Teacher Relationship Specialty Start Date End Date Felicitas Samuel MD PCP - General 10/13/16 07/19/20 Reanna Polanco, RN Registered Nurse 07/07/19 documented as of this encounter
--- OUTSIDE RECORDS SUMMARY | 2024-07-28 01:08 | XMS_ITS | Encounter Summary ---
Author Organization [facility] Healthcare Address [address] [place] [address] Care Team Providers Care Line Locator Name Role Phone Felicitas Samuel MD Primary Care Provider + Reason for Visit * Reason Onset Date Comments Pre-Surgical Call 06/24/2019 Encounter Details Date Type Department Care Team (Late st Contact Info) Description 06/24/2019 Telephone [facility] [address] [place], [place] [id number] Nancy Fernandez MD [address] [facility] [address] [facility] [place] [phone] [place], [place] [id number] Pre-Surgical Call Social History Tobacco Use Types Packs/Day Years Used Date Smoking Tobacco: Never Smokeless Tobacco: Never Alcohol Use Standard Drinks/Week Comments No 0 (1 standard drink = 0.6 oz pur e alcohol) Comments No Sex and Gender Information Value Date Recorded Sex Assigned at Not on file Legal Sex Female 2:03 AM CERTIFIED SHORTHAND REPORTER Gender Identity Female 08/26/2020 6:26 AM CERTIFIED SHORTHAND REPORTER Sexual Orientation Straight 08/26/2020 6: 26 AM CERTIFIED SHORTHAND REPORTER documented as of this encounter Miscellaneous Notes * Telephone Encounter - Idania Self RN - 06/24/2019 2:16 PM CST Pre-call complete IFIED SHORTHAND REPORTER documented in this encounter Plan of Treatment Not on file documented as of this encounter Goals Goal Patient Goal Type Associated Problems Recent Progress Patient-Stated? Author CCM Chronic Pain Care Plan Chronic Care Management Improving( 10:05 AM CERTIFIED SHORTHAND REPORTER) No Bessy Mancuso, RN Note: Problem: Chronic Pain Goals: 1. Minimize further functional decline 2. Maximize quality of life 3. Control pain Strategies: - Activity/exercise program recommendation - Conservative stepwise pain medicine strategy with multi-disciplinary approach - Recommend healthy lifestyle strategies and compensatory methods as needed documented as of this encounter Visit Diagnoses Not on filedocumented in this encounter Care Teams Line Locator Relationship Specialty Start Date End Date Felicitas Samuel MD PCP - General 10/13/16 07/19/20 documented as of this encounter
--- OUTSIDE RECORDS SUMMARY | 2024-07-28 01:08 | XMS_ITS | Encounter Summary ---
Author Organization [facility] Healthcare Address [address] [place] [address] Care Team Providers Care Licensed Aircraft Maintenance Engineer Name Role Phone Felicitas Samuel MD Primary Care Provider + Reanna Polanco RN Unavailable Unavailab le Reason for Visit * Reason Comments Back Pain lower back pain and right hip pain Encounter Details Date Type Department Care Team (Latest Contact Info) Description 09/22/2019 11:35 AM MOBILE UI DESIGNER - 09/22/2019 1:11 PM MOBILE UI DESIGNER Hospital Encounter [facility] [place] [facility] [address] [facility] [address] [place] [address] Nancy Fernandez MD [address] [facility] [id number] [place], [place] [id number] Sacroiliitis (CMS/HCC) (Primary Dx); Chronic bilateral low back pain [...] on file Legal Sex Female 2:03 AM MOBILE UI DESIGNER Gender Identity Female 08/26/2020 6:26 AM MOBILE UI DESIGNER Sexual Orientation Straight 08/26/2020 6: 26 AM MOBILE UI DESIGNER documented as of this encounter Last Filed Vital Signs Vital Sign Reading Time Taken Comments Blood Pressure 137/86 09/22/2019 1:42 PM MOBILE UI DESIGNER Pulse 79 09/22/2019 1:42 PM MOBILE UI DESIGNER Temperature 37.1 ??C (98.7 ??F) 09/22/2019 11:[address] Respiratory Rate 18 09/22/2019 1:42 PM MOBILE UI DESIGNER Oxygen Saturation 97% 09/22/2019 1:42 PM MOBILE UI DESIGNER Inhaled Oxygen Concentration - - Weight 69.9 kg (154 lb) 09/22/2019 11:53 AM MOBILE UI DESIGNER Height 172.7 cm (5' 8 ) 09/22/2019 11:53 AM MOBILE UI DESIGNER Body Mass Index 23.42 09/22/2019 11:53 AM MOBILE UI DESIGNER documented in this encounter Discharge Instructions * Discharge Instructions* Daily [place] - 09/22/2019 1:31 PM MOBILE UI DESIGNER PAIN MANAGEMENT CENTER PATIENT EDUCATION POST-PROCEDURE INFORMATION SHEET Bilateral SI Joint Injection After this procedure you may have: ??? Dizziness ??? Numbness in extremities ??? Weakness in extremities These symptoms generally wear off in 6-8 hours, but are almost always gone by the next morning. ??? A small amount of bruising, bleeding, swelling at the injection site(s). It is recommended you apply ice packs for 20 minutes every 1-2 hours for the first 24 hours. ??? After 24 hours, if you still have discomfort, you may use a heating pad. Do not sit or lie on top of heating pad. Do not leave ice or heat on for more than 20 minutes at a time. ??? Stand up slowly from a sitting or lying position today to prevent feeling dizzy or lightheaded. ??? Limit activity today, which includes no driving. You may resume your normal activity and driving the next day after your procedure. ??? You may take a shower. No tub bath, swimming pool, hot tub, etc., for 24 hours. ??? You have received two (2) medications in your injection today. The first is a numbing medicine. This medicine may give you quick pain relief that may wear off before tomorrow. The second medicine is a steroid which may take 2-7 days to start working. You may also have some extra soreness at the injection site. ??? After the numbing medicine wears off, your pain may return until the steroid starts working. If you have any questions or problems, please call the Pain Management Center at ??? For emergencies after 4:00 p.m., you should call the hospital calender roll press operator at and ask to speak with the Pain Service doctor pipe production worker. PAIN MANAGEMENT CENTER ([facility]) DISCHARGE INSTRUCTIONS MEDICATIONS: [x] Continue your current home medications Start: [x] Notify your pharmacy for refill(s) 7 days before you are out of your medication. [] Opioid (Narcotic) Agreement signed and patient received copy. [] Side Effects of Opioid Medications given to patient Resume blood thinner: On Discontinue: PROCEDURE at today's visit: Bilateral SI Joint Injection DIET: [x] Resume normal diet [] See [facility] Post Discharge Procedure Information Sheet ACTIVITY: [] Resume normal activity [x] See [facility] Post Discharge Procedure Information Sheet REFERRALS: Physical Therapy [] [facility] Physical Therapy ([phone]) [] [facility] (Graded [employer]ag[employer]) [] [facility] ([phone]) [] [facility] (Graded [employer] Imag[employer]) [] Other: Behavior Medicine [] Pain Psychologist, [facility] Pain Psychology Please call to schedule appointment [phone] or [phone] Diagnostic Test(s): EDUCATION provided on the following: [] Spinal Cord Stimulator Education and DVD. Vendor: FOLLOW UP APPOINTMENTS: [] Return as needed [x] Follow up appointment:3 months We will contact you the next business day to obtain: [] An update on your condition [] Your Pain diary scores [x] Procedure at your next visit : Bilateral Sacroiliac injections INSTRUCTIONS before your next procedure: [x] See [facility] Pre-Procedure Information Sheet [] Do not eat or drink for six (6) hours before the time/date of the procedure. [] Inquire with your prescribing provider if ok to hold blood thinner for ( ) days before procedure. [] Blood work required 2 hours before procedure: [x] Fingernail Technician needed for next procedure Patient provided information and repeated back with understanding. If you need to reach us: For any questions about your procedure, please call the Pain Management Center [phone] (M-F) (8am-4pm) If you need urgent attention after 5 pm and weekends: Call the [facility] Infantry Unit Leader at [phone] and ask for the Pain Service doctor on ca LE UI DESIGNER documented in this encounter Medications at Time [...] day As need for pain 90 tablet 09/29/2019 10/16/2019 lidocaine (LIDODERM) 5 % Place 1 patch on the skin daily as needed for pain 07/27/2016 08/03/2020 magnesium oxide 400 mg capsule 250 mg 3 tablets a day 04/19/2020 omega 5-cjh-elr-fish oil 1,000 mg (120 mg-180 mg) capsule Take 1 capsule by mouth every morning 09/05/2022 gixe-ygmo-dwz-yuc -mil-ytlx-oib (TUMERSAID) [phone] mg tablet daily 04/19/2020 turmeric root extract 500 mg capsuleIndication s:OTC Take 1,350 mg by mouth every morning 09/05/2022 documented as of this encounter Discharge Disposition Disposition Code Departure Means Destination Discharge to home or self care documented in this encounter Progress Notes * Jessy Wolfe MD PhD - 09/22/2019 12:00 PM CST Patient Name: Annette Camarena : 1960 Today's Date: 09/22/2019 PCP: Felicitas Samuel MD Referring: No ref. provider found Chief Complaint Patient presents with ??? Back Pain lower back pain and right hip pain HPI Historical Info: ANNETTE CAMARENA is a [...] cyclobenzaprine - Lidoderm - meloxicam - Savella ?? 06/10/19: Has been taking meloxicam for a [...] Interventions: ?? - L4, 5, S1 RFA debbi 2013 - sig benefit??for many years - L4, L4, S1 RFA Jul 2018- sig benefit for 9 mo - SI injection, bilateral 03/10/19- helped with pain in buttock and groin 06/10/19: b/l SIJ 06/30/19: Right L3-S1 RFA: no pain nrelief 07/07/19: Left L3-S1 RFA INTERVAL HISTORY (09/22/2019): Annette Camarena returns to clinic today. She presents for ongoing management of low back pain radiation to R hip. She presents for SI joint injection. Pain is at bilateral posterior SI joints. Radiation: buttocks Numbness: none Weakness: none The pain is described as stabbing and aching. It rates 6/10 on the numeric pain scale; average /10. The pain increases with increased activity and decreases with rest, medications. She follows a homeexercise program. Her ADLs are difficult, but manageable on her own. Last visit 07/07/19 we did the following: Intervention: Left L3, L4, L5, S1 medial branch RFA Medication adjustments: continue current meds for now Referrals: none Current Pain meds: Pain Medications vdjvqnuejsohk-upzuzqq-uenefadj (EXCEDRIN MIGRAINE) 250-250-65 mg per tablet daily. ARIPiprazole (ABILIFY) 5 mg tablet Take 5 mg by mouth daily baclofen (LIORESAL) 10 mg tablet 20 mg 4 (four) times a day Takes 1-2 tabs QID celecoxib (CeleBREX) 200 mg capsule Take 1 capsule (200 mg total) by mouth daily DULoxetine DR (CYMBALTA) [address] (CYMBALTA) 60 mg capsule Take 1 capsule (60 mg total) by mouth daily. No results found. Review of Systems Review of Systems ROS all other systems negative other than as documented in HPI Patient's Medications New Prescriptions No medications on file Previous Medications GXFBKADRYTOGC-IFDENCZ-VCBAQUTK (EXCEDRIN MIGRAINE) 250-250-65 MG PER TABLET daily. [...] Provider: Joaquín Beckman MD Notes: -- OMEGA 5-VTY-AMR-FISH OIL 1,000 MG (120 MG-180 MG) CAPSULE daily Authorizing Provider: Joaquín Beckman MD Notes: -- KVBO-SWBH-GCY-JDT-ZHG-HLGG-HOR (TUMERSAID) [phone] MG TABLET Take by mouth. Authorizing Provider: Joaquín Beckman MD Notes: -- TURMERIC ROOT EXTRACT 500 MG CAPSULE Take 1,500 mg by mouth. Authorizing Provider: Joaquín eBckman MD Notes: -- ZOLPIDEM (AMBIEN) 10 MG [...] MD Authorizing Provider: Nancy Fernandez MD Notes: Ok to refill- she is a couple of days early due to brief pain flare. Notes: -- Discontinued Medications ALENDRONATE (FOSAMAX) 70 MG TABLET Authorizing Provider: Joaquín Beckman MD Notes: -- Allergies Allergen Reactions ??? Decongestant Capsule Other (See comments) bladder spasms with decongestants Physical Exam Vitals: 09/22/19 1313 09/22/19 1323 09/22/19 1327 09/22/19 1342 BP: 126/77 117/75 116/74 137/86 Pulse: 81 78 80 79 Resp: 15 14 19 18 Temp: SpO2: 96% 97% 95% 97% Weight: Height: Body mass index is 23.42 kg/m??. Physical Exam Vitals signs reviewed. Constitutional: Appearance: Normal appearance. She is normal weight. HENT: Head: Normocephalic and atraumatic. Eyes: Extraocular Movements: Extraocular movements intact. Neck: Musculoskeletal: Normal range of motion and neck supple. Cardiovascular: Rate and Rhythm: Normal rate and regular rhythm. Pulmonary: Effort: Pulmonary effort is normal. Abdominal: General: Abdomen is flat. Skin: General: Skin is warm and dry. Neurological: General: No focal deficit present. Mental Status: She is alert and oriented to person, place, and time. Mental status is at baseline. Psychiatric: Mood and Affect: Mood normal. Musc: tenderness over bilateral SI joints. Positive sit-slump tests bilaterally Assessment The above note documents my personal evaluation of this patient. In addition, I have reviewed and confirmed with the patient and nurse the supportive information documented in today's scanned PatientHealth Questionnaire and Office Note. Encounter Diagnoses Name Primary? Sacroiliitis (CMS/HCC) ??? Chronic bilateral low back pain without sciatica Plan 1. Interventions: Bilateral Sacroiliac joint injections today 2. Medications: The patient shows no signs [...] the lowest dose necessary. Chronic Opioid Therapy (09/22/2019): Current analgesics: hydrocodone/APAP [...] at this current time. 5. Follow-up: In 6-8 weeks for re-evaluation of the above regimen. Orders Placed This Encounter Procedures ??? Discharge patient -Stable Standing Status: Standing Number of Occurrences: 1 Order Specific Question: Condition at Discharge: Answer: Stable No follow-ups on file. Jessy Wolfe MD PhD Resident, Anesthesiology [facility] Cosigned by Nancy Fernandez MD at 09/26/2019 4:43 PM MOBILE UI DESIGNER LE UI DESIGNER LE UI DESIGNER Associated attestation - Nancy Fernandez MD - 09/26/2019 4:43 PM MOBILE UI DESIGNER I have seen and examined the patient. I agree with the findings and plan of care as documented in the resident/fellow's note. documented in this encounter Miscellaneous Notes * Op Note - Nancy eFrnandez MD - 09/22/2019 12:00 PM CST Surgeon: Nancy Fernandez M.D. MECHANICAL SERVICE REPRESENTATIVE SURGEON: Jessy Wolfe M.D.PhD Procedure: Bilateral Sacroiliac Joint Injection Pre-procedure Diagnosis: Other chronic pain Sacroiliitis- bilateral Sacral back pain Post-operative Diagnosis: Other chronic pain Sacroiliitis- bilateral Sacral back pain Description of Procedure: The risks, benefits, and complications related to the procedure were discussed, and written informed consent was obtained. The most recent H&P was reviewed and there were no changes noted. The patient was then brought to the procedure room and allowed to place themself in the prone position on the fluoroscopy table. Appropriate monitors were applied. The back was prepped with chlorhexidine peng ution and draped in the usual sterile fashion. Fluoroscopy was utilized to identify the left sacroiliac joint. The skin and subcutaneous tissue overlying the inferior joint margin were anesthetized with 1% lidocaine. Next, a #22g spinal needle was advanced under fluoroscopic guidance until it lie within the joint space. After negative aspiration, a solution consisting of 40 mg of methylprednisolone (40mg/ml) and 2ml PSF 0.5% bupivacaine (total volume 3ml) was injected. The procedure was then repeated exactly as described above on the right side. Operative Findings: The procedure was completed as planned. Complications: There were no apparent complication. Estimated Blood Loss: None Intraoperative Fluids: None Specimens: None The patient was observed in the recovery following the procedure. Post-op instructions were reviewed. Condition at discharge: Stable LE UI DESIGNER documented in this encounter Plan of Treatment Not on file documented as of this encounter Goals Goal Patient Goal Type Associated Problems Recent Progress Patient-Stated? Author CCM Chronic Pain Care Plan Chronic Care Management Improving( 10:05 AM MOBILE UI DESIGNER) Bessy Gayle RN Note: Problem: Chronic Pain Goals: 1. Minimize further functional decline 2. Maximize quality of life 3. Control pain Strategies: - Activity/exercise program recommendation - Conservative stepwise pain medicine strategy with multi-disciplinary approach - Recommend healthy lifestyle strategies and compensatory methods as needed documented as of this encounter Visit Diagnoses Diagnosis Sacroiliitis (HCC)- Primary Sacroiliitis, not elsewhere classified Chronic bilateral low back pain without sciatica Chronic use of opiate drug for therapeutic purpose documented in this encounter Administered Medications Inactive Administered Medications - up to 3 most recent administrations Medication Order MAR Action Action Date Dose Rate Site bupivacaine (MARCAINE) 0.5 % (5 mg/mL) preservative free injection As needed, Starting on Sun09/22/19 at 1326, Intra-Op Given 09/22/2019 1:26 PM MOBILE UI DESIGNER 4 mg iohexoL (OMNIPAQUE) 300 mg iodine/mL injection solution As needed, Starting on 09/22/19 at 1326, Intra-Op Given 09/22/2019 1:26 PM MOBILE UI DESIGNER 0.5 mg lidocaine PF (XYLOCAINE) 10 mg/mL (1 %) preservative free injection As needed, Starting on 09/22/19 at 1326, Intra-Op Given 09/22/2019 1:26 PM MOBILE UI DESIGNER 5 mL methylPREDNISolone acetate (DEPO-medrol) injection As needed, Starting on 09/22/19 at 1326, Intra-Op Given 09/22/2019 1:26 PM MOBILE UI DESIGNER 80 mg documented in this encounter Discontinued Medications Medication Sig Discontinue Reason Start Date End Da te alendronate (FOSAMAX) 70 mg tablet 11/02/2017 09/22/2019 documented as of this encounter Historical Medications * This list may reflect changes made after this encounter. ALPHA LIPOIC ACID ORAL Take 550 mg by mouth every morning added in this encounter Care Teams Licensed Aircraft Maintenance Engineer Relationship Specialty Start Date End Date Felicitas Samuel MD PCP - General 10/13/16 07/19/20 Reanna Polanco RN Registered Nurse 07/07/19 documented as of this encounter
--- OUTSIDE RECORDS SUMMARY | 2024-07-28 01:08 | XMS_ITS | Encounter Summary ---
Author Organization [facility] Healthcare Address [address] [place] [address] Care Team Providers Care Electric Meter Tester Name Role Phone Felicitas Samuel MD Primary Care Provider + Reanna Polanco RN Unavailable Unavailab le Reason for Visit * Reason Onset Date Comments Pre-Surgical Call 09/18/2019 Encounter Details Date Type Department Care Team (Late st Contact Info) Description 09/18/2019 Telephone [facility] at the [place] [facility] [address] [facility] [address] [facility] [address] [place] [address] Nancy Fernandez MD [address] [facility] [address] [facility] [phone] [place], [place] [id number] Pre-Surgical Call Social History Tobacco Use Types Packs/Day Years Used Date Smoking Tobacco: Never Smokeless Tobacco: Never Alcohol Use Standard Drinks/Week Comments No 0 (1 standard drink = 0.6 oz pur e alcohol) Comments No Sex and Gender Information Value Date Recorded Sex Assigned at Not on file Legal Sex Female 2:03 AM OIL RECOVERY UNIT OPERATOR Gender Identity Female 08/26/2020 6:26 AM OIL RECOVERY UNIT OPERATOR Sexual Orientation Straight 08/26/2020 6: 26 AM OIL RECOVERY UNIT OPERATOR documented as of this encounter Miscellaneous Notes * Telephone Encounter - Fouzia Coats RN - 09/18/2019 3:42 PM OIL RECOVERY UNIT OPERATOR Precall completed RECOVERY UNIT OPERATOR documented in this encounter Plan of Treatment Not on file documented as of this encounter Goals Goal Patient Goal Type Associated Problems Recent Progress Patient-Stated? Author CCM Chronic Pain Care Plan Chronic Care Management Improving( 10:05 AM OIL RECOVERY UNIT OPERATOR) No Bessy Mancuso, RUBIO Note: Problem: Chronic Pain Goals: 1. Minimize further functional decline 2. Maximize quality of life 3. Control pain Strategies: - Activity/exercise program recommendation - Conservative stepwise pain medicine strategy with multi-disciplinary approach - Recommend healthy lifestyle strategies and compensatory methods as needed documented as of this encounter Visit Diagnoses Not on filedocumented in this encounter Care Teams Electric Meter Tester Relationship Specialty Start Date End Date Felicitas Samuel MD PCP - General 10/13/16 07/19/20 Reanna Polanco, RN Registered Nurse 07/07/19 documented as of this encounter
--- OUTSIDE RECORDS SUMMARY | 2024-07-28 01:08 | XMS_ITS | Encounter Summary ---
Author Organization [facility] Healthcare Address [address] [place] [address] Care Team Providers Care Die Maintenance Technician Name Role Phone Felicitas Samuel MD Primary Care Provider + Reason for Referral * Diagnostic Imaging (Routine) - Closed Specialty Diagnoses / Procedures Referred By Contac t Referred To Contact Diagnoses Pain management Procedures FL Fluoroscopy < 1 Hour (Statistical Only) Nancy Fernandez MD Phone: tel: fax: [address] [phone] Referral ID Status Reason Start Date Expiration Date Visits Re quested Visits Authorized [id number] Closed 06/10/2019 12/19/2020 1 1 DEHYDRATOR OPERATOR Reason for Visit * Diagnostic Imaging (Routine) - Closed Specialty Diagnoses / Procedures Referred By Contac t Referred To Contact Diagnoses Pain management Procedures FL Fluoroscopy < 1 Hour (Statistical Only) Nancy Fernandez MD Phone: tel: fax: [address] [phone] Referral ID Status Reason Start Date Expiration Date Visits Re quested Visits Authorized [id number] Closed 06/10/2019 12/19/2020 1 1 Encounter Details Date Type Department Care Team (Latest Contact Info) Description 06/10/2019 7:42 AM FOOD DEHYDRATOR OPERATOR - 06/10/2019 11:24 AM FOOD DEHYDRATOR OPERATOR Hospital Encounter [facility] [place] [address] Nancy Fernandez MD [address] [facility] [phone] [place] [address] Pain management Discharge Disposition: Discharge to home or self care Social History Tobacco Use Types Packs/Day Years Used Date Smoking Tobacco: Never Smokeless Tobacco: Never Alcohol Use Standard Drinks/Week Comments No 0 (1 standard drink = 0.6 oz pur e alcohol) Comments No Sex and Gender Information Value Date Recorded Sex Assigned at Not on file Legal Sex Female 2:03 AM FOOD DEHYDRATOR OPERATOR Gender Identity Female 08/26/2020 6:26 AM FOOD DEHYDRATOR OPERATOR Sexual Orientation Straight 08/26/2020 6: 26 AM FOOD DEHYDRATOR OPERATOR documented as of this encounter Medications [...] tablet TAKE 1 TABLET DAILY.- 2000IU 04/19/[address] (CYMBALTA) 30 mg capsule 30 [...] day As need for pain 90 tablet 06/05/2019 06/27/2019 lidocaine (LIDODERM) 5 % Place 1 patch on the skin daily as needed for pain 07/27/2016 08/03/2020 magnesium oxide 400 mg capsule 250 mg 3 tablets a day 04/19/2020 omega 7-cqd-tuq-fish oil 1,000 mg (120 mg-180 mg) capsule Take 1 capsule by mouth every morning 09/05/2022 lwyi-msei-ybh-yuc -yea-bpnv-men (TUMERSAID) [phone] mg tablet daily 04/19/2020 turmeric root extract 500 mg capsuleIndication s:OTC Take 1,350 mg by mouth every morning 09/05/2022 documented as of this encounter Discharge Disposition Disposition Code Departure Means Destination Discharge to home or self care documented in this encounter Plan of Treatment Not on file documented as of this encounter Goals Goal Patient Goal Type Associated Problems Recent Progress Patient-Stated? Author [facility] Chronic Pain Care Plan Chronic Care Management Improving( 10:05 AM FOOD DEHYDRATOR OPERATOR) No Bessy Mancuso, RN Note: Problem: [...] ONLY) Schedule Routine, Read Routine (OP Routine) 06/10/2019 12:50 PM FOOD DEHYDRATOR OPERATOR Pain management documented in this encounter Results * FL Fluoroscopy < 1 Hour (Statistical Only) (06/10/2019 12:50 PM FOOD DEHYDRATOR OPERATOR) Narrative [facility] - 06/10/2019 5:25 PM FOOD DEHYDRATOR OPERATOR The images from this study are not interpreted by Radiology. ??Please refer to the physician's procedure / OR operative note. us Nancy Fernandez MD IMG FLUOROSCOPY PROCEDURES Final Result [facility] documented in this encounter Visit Diagnoses Diagnosis Pain management documented in this encounter Care Teams Die Maintenance Technician Relationship Specialty Start Date End Date Felicitas Samuel MD PCP - General 10/13/16 07/19/20 documented as of this encounter
--- OUTSIDE RECORDS SUMMARY | 2024-07-28 01:08 | XMS_ITS | Encounter Summary ---
Author Organization [facility] Healthcare Address [address] [place] [address] Care Team Providers Care Senior Production Supervisor Name Role Phone Felicitas Samuel MD Primary Care Provider + Reanna Polanco [facility] Miami[facility]ohan Mcelroy MD Primary Care Provider Peyman Ortega MD Primary Care Provider Reason for Visit * Reason Onset Date Comments Prior Auth 06/11/2019 Celecoxib 200mg Encounter Details Date Type Department Care Team (Late st Contact Info) Description 06/11/2019 Telephone [facility] [place] [facility] [address] [facility] Advanced Medicine [address] [place] [address] Nancy Fernandez MD [address] [facility] [phone] [place] [address] Prior Auth (Celecoxib 200mg) Social History Tobacco Use Types Packs/Day Years Used Date Smoking Tobacco: Never Smokeless Tobacco: Never Alcohol Use Standard Drinks/Week Comments No 0 (1 standard drink = 0.6 oz pur e alcohol) Comments No Sex and Gender Information Value Date Recorded Sex Assigned at Not on file Legal Sex Female 2:03 AM POST TENSIONING IRONWORKER Gender Identity Female 08/26/2020 6:26 AM POST TENSIONING IRONWORKER Sexual Orientation Straight 08/26/2020 6: 26 AM POST TENSIONING IRONWORKER documented as of this encounter Plan of Treatment Not on file documented as of this encounter Goals Goal Patient Goal Type Associated Problems Recent Progress Patient-Stated? Author CCM Chronic Pain Care Plan Chronic Care Management Improving( 10:05 AM POST TENSIONING IRONWORKER) Bessy Gayle, RN Note: Problem: Chronic Pain Goals: 1. Minimize further functional decline 2. Maximize quality of life 3. Control pain Strategies: - Activity/exercise program recommendation - Conservative stepwise pain medicine strategy with multi-disciplinary approach - Recommend healthy lifestyle strategies and compensatory methods as needed documented as of this encounter Visit Diagnoses Not on filedocumented in this encounter Care Teams Senior Production Supervisor Relationship Specialty Start Date End Date Felicitas Samuel MD PCP - General 10/13/16 07/19/20 Rohan Rothman MD [address] [place] [address] PCP - General 07/20/20 05/12/24 Peyman Ortega MD [address] [facility] 2 [place] [address] PCP - General Family Practice 05/13/24 Reanna Polanco RN Registered Nurse 07/07/19 documented as of this encounter
--- OUTSIDE RECORDS SUMMARY | 2024-07-28 01:08 | XMS_ITS | Encounter Summary ---
Author Organization [facility] Healthcare Address [address] [facility] [place] [address] Care Team Providers Care Surface Logging Systems Logger Name Role Phone Felicitas Samuel MD Primary Care Provider + Reanna Polanco RN Unavailable Unavailab le Reason for Visit * Reason Onset Date Comments Med Refill 04/14/2020 Encounter Details Date Type Department Care Team (Late st Contact Info) Description 04/14/2020 Telephone [facility] [place] [facility] [address] [facility] Advanced Medicine [address] [place], [place] [phone] Nancy Fernandez MD [address] [facility] [phone] [place] [address] Med Refill Social History Tobacco Use Types Packs/Day Years Used Date Smoking Tobacco: Former Smokeless Tobacco: Never Alcohol Use Standard Drinks/Week Comments No 0 (1 standard drink = 0.6 oz pur e alcohol) Comments No Sex and Gender Information Value Date Recorded Sex Assigned at Not on file Legal Sex Female 2:03 AM BARREL FILLER Gender Identity Female 08/26/2020 6:26 AM BARREL FILLER Sexual Orientation Straight 08/26/2020 6: 26 AM BARREL FILLER documented as of this encounter Miscellaneous Notes * Telephone Encounter - Idania Roman RN - 04/14/2020 2:54 PM CDT Pt notified that RX has been e-prescribed to Pharmacy. documented in this encounter Plan of Treatment Not on file documented as of this encounter Goals Goal Patient Goal Type Associated Problems Recent Progress Patient-Stated? Author CCM Chronic Pain Care Plan Chronic Care Management Improving( 10:05 AM BARREL FILLER) No Bessy Mancuso, RN Note: Problem: Chronic Pain Goals: 1. Minimize further functional decline 2. Maximize quality of life 3. Control pain Strategies: - Activity/exercise program recommendation - Conservative stepwise pain medicine strategy with multi-disciplinary approach - Recommend healthy lifestyle strategies and compensatory methods as needed documented as of this encounter Visit Diagnoses Not on filedocumented in this encounter Care Teams Surface Logging Systems Logger Relationship Specialty Start Date End Date Felicitas Samuel MD PCP - General 10/13/16 07/19/20 Reanna Polanco RN Registered Nurse 07/07/19 documented as of this encounter
--- OUTSIDE RECORDS SUMMARY | 2024-07-28 01:08 | XMS_ITS | Encounter Summary ---
Author Organization [facility] Healthcare Address [address] [facility] [address] Care Team Providers Care Atlassian Administrator Name Role Phone Felicitas Samuel MD Primary Care Provider + Reanna Polanco RN Unavailable Unavailab le Encounter Details Date Type Department Care Team (Late st Contact Info) Description 02/13/2020 Orders Only [facility] [address] [facility] Advanced Medicine [address] [place], [place] [phone] Nancy Fernandez MD [address] [facility] [address] [facility] [phone] [place], [place] [id number] Social History Tobacco Use Types Packs/Day Years Used Date Smoking Tobacco: Former Smokeless Tobacco: Never Alcohol Use Standard Drinks/Week Comments No 0 (1 standard drink = 0.6 oz pur e alcohol) Comments No Sex and Gender Information Value Date Recorded Sex Assigned at Not on file Legal Sex Female 2:03 AM VESSEL SPECIALIST Gender Identity Female 08/26/2020 6:26 AM VESSEL SPECIALIST Sexual Orientation Straight 08/26/2020 6: 26 AM VESSEL SPECIALIST documented as of this encounter Ordered Prescriptions Prescription Sig Dispense Quantity Refills Last Filled Start Date End Date methocarbamoL (ROBAXIN) 500 mg tablet Take 2 tablets (1,000 mg total) by mouth 4 (four) times a day as needed for muscle spasms 120 tablet 3 02/13/2020 0 documented in this encounter Plan of Treatment Not on file documented as of this encounter Goals Goal Patient Goal Type Associated Problems Recent Progress Patient-Stated? Author CCM Chronic Pain Care Plan Chronic Care Management Improving( 10:05 AM VESSEL SPECIALIST) Bessy Gayle, RN Note: Problem: Chronic Pain [...] te methocarbamoL (ROBAXIN) 500 mg tablet Take 1 tablet (500 mg total) by mouth 4 (four) times a day as needed for muscle spasms Reorder 01/19/2020 02/13/2020 documented as of this encounter Care Teams Atlassian Administrator Relationship Specialty Start Date End Date Felicitas Samuel MD PCP - General 10/13/16 07/19/20 Reanna Polanco RN Registered Nurse 07/07/19 documented as of this encounter
--- OUTSIDE RECORDS SUMMARY | 2024-07-28 01:08 | XMS_ITS | Encounter Summary ---
Author Organization [facility] Healthcare Address [address] [facility] [place] [address] Care Team Providers Care Wildlife Photographer Name Role Phone Felicitas Samuel MD Primary Care Provider + Reanna Polanco RN [facility] Primary Care Provider Peyman Ortega MD Primary Care Provider Encounter Details Date Type Department Care Team (Late st Contact Info) Description 01/15/2020 Telephone [facility] at the [place] [facility] [address] [facility] Advanced Medicine [address] [place], [place] [phone] Nancy Fernandez MD [address] [facility] [phone] [place], [place] [id number] Social History Tobacco Use Types Packs/Day Years Used Date Smoking Tobacco: Former Smokeless Tobacco: Never Alcohol Use Standard Drinks/Week Comments No 0 (1 standard drink = 0.6 oz pur e alcohol) Comments No Sex and Gender Information Value Date Recorded Sex Assigned at Not on file Legal Sex Female 2:03 AM CHARGE MACHINE OPERATOR Gender Identity Female 08/26/2020 6:26 AM CHARGE MACHINE OPERATOR Sexual Orientation Straight 08/26/2020 6: 26 AM CHARGE MACHINE OPERATOR documented as of this encounter Plan of Treatment Not on file documented as of this encounter Goals Goal Patient Goal Type Associated Problems Recent Progress Patient-Stated? Author CCM Chronic Pain Care Plan Chronic Care Management Improving( 10:05 AM CHARGE MACHINE OPERATOR) Bessy Gayle, RUBIO Note: Problem: Chronic Pain Goals: 1. Minimize further functional decline 2. Maximize quality of life 3. Control pain Strategies: - Activity/exercise program recommendation - Conservative stepwise pain medicine strategy with multi-disciplinary approach - Recommend healthy lifestyle strategies and compensatory methods as needed documented as of this encounter Visit Diagnoses Not on filedocumented in this encounter Care Teams Wildlife Photographer Relationship Specialty Start Date End Date Felicitas Samuel MD PCP - General 10/13/16 07/19/20 Rohan Rothman MD [address] [facility] [address] [place], [place] [id number] PCP - General 07/20/20 05/12/24 Peyman Ortega MD [address] [facility] [address] [place] [address] PCP - General Family Practice 05/13/24 Reanna Polanco, RN Registered Nurse 07/07/19 documented as of this encounter
--- OUTSIDE RECORDS SUMMARY | 2024-07-28 01:08 | XMS_ITS | Encounter Summary ---
Author Organization [facility] Healthcare Address [address] [facility] [place] [address] Care Team Providers Care Cold Roll Catcher Name Role Phone Reanna Polanco RN [facility] Rohan Salvador MD Primary Care Provider Reason for Visit * Reason Onset Date Comments Med Refill 09/22/2020 Encounter Details Date Type Department Care Team (Late st Contact Info) Description 09/22/2020 Telephone [facility] at the [place] for [facility] Medicine [address] [facility] Advanced Medicine [address] [place], [place] [phone] Nancy Fernandez MD [address] [facility] [address] [facility] [phone] [place], [place] [phone] Med Refill Social History Tobacco Use Types Packs/Day Years Used Date Smoking Tobacco: Former Cigarettes Smokeless Tobacco: Never Alcohol Use Standard Drinks/Week Comments No 0 (1 standard drink = 0.6 oz pur e alcohol) denies Comments No Sex and Gender Information Value Date Recorded Sex Assigned at Not on file Legal Sex Female 2:03 AM FISH ICER Gender Identity Female 08/26/2020 6:26 AM FISH ICER Sexual Orientation Straight 08/26/2020 6: 26 AM FISH ICER documented as of this encounter Miscellaneous Notes * Telephone Encounter - Letitia Flores RN - 09/22/2020 1:03 PM FISH ICER Refill left at pharmacy ICER documented in this encounter Plan of Treatment Not on file documented as of this encounter Goals Goal Patient Goal Type Associated Problems Recent Progress Patient-Stated? Author CCM Chronic Pain Care Plan Chronic Care Management Improving( 10:05 AM FISH ICER) No Bessy Mancuso, RN Note: Problem: Chronic Pain Goals: 1. Minimize further functional decline 2. Maximize quality of life 3. Control pain Strategies: - Activity/exercise program recommendation - Conservative stepwise pain medicine strategy with multi-disciplinary approach - Recommend healthy lifestyle strategies and compensatory methods as needed documented as of this encounter Visit Diagnoses Not on filedocumented in this encounter Care Teams Cold Roll Catcher Relationship Specialty Start Date End Date Rohan Rothman MD [address] [facility] [address] [place] [address] PCP - General 07/20/20 05/12/24 Reanna Polanco, RN Registered Nurse 07/07/19 documented as of this encounter
--- OUTSIDE RECORDS SUMMARY | 2024-07-28 01:08 | XMS_ITS | Encounter Summary ---
Author Organization [facility] Healthcare Address [address] [facility] [place] [address] Care Team Providers Care Miller Helper Distillery Name Role Phone Felicitas Samuel MD Primary Care Provider + Re[facility]anco [facility] Primary Care Provider Encounter Details Date Type Department Care Team (Late st Contact Info) Description 04/13/2020 Telephone [facility] [address] [facility] Advanced Medicine [address] [place], [place] [phone] Nancy Fernandez MD [address] [facility] [address] [facility] [phone] [place], [place] [phone] Social History Tobacco Use Types Packs/Day Years Used Date Smoking Tobacco: Former Smokeless Tobacco: Never Alcohol Use Standard Drinks/Week Comments No 0 (1 standard drink = 0.6 oz pur e alcohol) AUDIT-C Answer Date Recorded Q1: How often do you have a drink containing alc ohol? Never 11/30/2020 Average Number of Drinks Not on file 021 Frequency of Binge Drinking Not on file 10/2020 Comments No Sex and Gender Information Value Date Recorded Sex Assigned at Not on file Legal Sex Female 2:03 AM HEAT TREAT SUPERVISOR Gender Identity Female 08/26/2020 6:26 AM HEAT TREAT SUPERVISOR Sexual Orientation Straight 08/26/2020 6: 26 AM HEAT TREAT SUPERVISOR documented as of this encounter Miscellaneous Notes * Telephone Encounter - Idania Roman, RUBIO - 05/23/2021 1:53 PM CDT ERROR. documented in this encounter Plan of Treatment Not on file documented as of this encounter Goals Goal Patient Goal Type Associated Problems Recent Progress Patient-Stated? Author CCM Chronic Pain Care Plan Chronic Care Management Improving( 10:05 AM HEAT TREAT SUPERVISOR) No Bessy Mancuso RN Note: Problem: Chronic Pain Goals: 1. Minimize further functional decline 2. Maximize quality of life 3. Control pain Strategies: - Activity/exercise program recommendation - Conservative stepwise pain medicine strategy with multi-disciplinary approach - Recommend healthy lifestyle strategies and compensatory methods as needed documented as of this encounter Visit Diagnoses Not on filedocumented in this encounter Care Teams Miller Helper Distillery Relationship Specialty Start Date End Date Felicitas Samuel MD PCP - General 10/13/16 07/19/20 Rohan Rothman MD [address] [facility] [address] [place] [address] PCP - General 07/20/20 05/12/24 Reanna Polanco RN Registered Nurse 07/07/19 documented as of this encounter
--- OUTSIDE RECORDS SUMMARY | 2024-07-28 01:08 | XMS_ITS | Encounter Summary ---
Author Organization [facility] Healthcare Address [address] [place] [address] Care Team Providers Care Civil Clerk Name Role Phone Felicitas Samuel MD Primary Care Provider + Reanna Polanco RN Unavailable Unavailab le Reason for Referral * Diagnostic Imaging (Routine) - Closed Specialty Diagnoses / Procedures Referred By Contac t Referred To Contact Diagnoses Pain management Procedures FL Fluoroscopy < 1 Hour (Statistical Only) Nancy Fernandez MD Phone: tel: fax: [address] [phone] Referral ID Status Reason Start Date Expiration Date Visits Re quested Visits Authorized [id number] Closed 09/22/2019 04/02/2021 1 1 HERY ATTENDANT Reason for Visit * Diagnostic Imaging (Routine) - Closed Specialty Diagnoses / Procedures Referred By Contac t Referred To Contact Diagnoses Pain management Procedures FL Fluoroscopy < 1 Hour (Statistical Only) Nancy Fernandez MD Phone: tel: fax: [address] [phone] Referral ID Status Reason Start Date Expiration Date Visits Re quested Visits Authorized [id number] Closed 09/22/2019 04/02/2021 1 1 Encounter Details Date Type Department Care Team (Latest Contact Info) Description 09/22/2019 1:12 PM HATCHERY ATTENDANT - 09/22/2019 11:59 PM HATCHERY ATTENDANT Hospital Encounter [facility] [address] [place] [address] Nancy Fernandez MD [address] [facility] [address] [facility] [phone] [place] [address] Pain management Discharge Disposition: Discharge to home or self care Social History Tobacco Use Types Packs/Day Years Used Date Smoking Tobacco: Former Smokeless Tobacco: Never Alcohol Use Standard Drinks/Week Comments No 0 (1 standard drink = 0.6 oz pur e alcohol) Comments No Sex and Gender Information Value Date Recorded Sex Assigned at Not on file Legal Sex Female 2:03 AM HATCHERY ATTENDANT Gender Identity Female 08/26/2020 6:26 AM HATCHERY ATTENDANT Sexual Orientation Straight 08/26/2020 6: 26 AM HATCHERY ATTENDANT documented as of this encounter Medications [...] mg 3 tablets a day 04/19/2020 omega 4-fjb-xvm-fish oil 1,000 mg (120 mg-180 mg) capsule Take 1 capsule by mouth every morning 09/05/2022 pgoo-kkkj-xxf-yuc -pju-rmkt-mxy (TUMERSAID) [phone] mg tablet daily 04/19/2020 turmeric root extract [...] Plan Chronic Care Management Improving( 10:05 AM HATCHERY ATTENDANT) Bessy Gayle, RN Note: Problem: Chronic Pain [...] ONLY) Schedule Routine, Read Routine (OP Routine) 09/22/2019 1:35 PM HATCHERY ATTENDANT Pain management documented in this encounter Results * [place] Fluoroscopy < 1 Hour (Statistical Only) (09/22/2019 1:35 PM HATCHERY ATTENDANT) Narrative [facility] - 09/22/2019 1:49 PM HATCHERY ATTENDANT The images from this study are not interpreted by Radiology. ??Please refer to the physician's procedure / OR operative note. us Nancy Fernandez MD IMG FLUOROSCOPY PROCEDURES Final Result [facility] documented in this encounter Visit Diagnoses Diagnosis Pain management documented in this encounter Care Teams Civil Clerk Relationship Specialty Start Date End Date Felicitas Samuel MD PCP - General 10/13/16 07/19/20 Reanna Polanco, RN Registered Nurse 07/07/19 documented as of this encounter
--- OUTSIDE RECORDS SUMMARY | 2024-07-28 01:08 | XMS_ITS | Encounter Summary ---
Author Organization [facility] Healthcare Address [address] [facility] [place] [address] Care Team Providers Care Tennis Ball Cover Cementer Name Role Phone Felicitas Samuel MD Primary Care Provider + Reanna Polanco RN Unavailable Unavailab le Reason for Visit * Reason Onset Date Comments FV2 APPT 05/31/2020 Encounter Details Date Type Department Care Team (Late st Contact Info) Description 05/31/2020 Telephone [facility] the [place] for Advanced Medicine [address] [facility] Advanced Medicine [address] [place] [address] Nancy Fernandez MD [address] [facility] [address] [facility] [phone] [place], [place] [id number] FV2 APPT Social History Tobacco Use Types Packs/Day Years Used Date Smoking Tobacco: Former Cigarettes Smokeless Tobacco: Never Alcohol Use Standard Drinks/Week Comments No 0 (1 standard drink = 0.6 oz pur e alcohol) Comments No Sex and Gender Information Value Date Recorded Sex Assigned at Not on file Legal Sex Female 2:03 AM ADVISORY INTERN Gender Identity Female 08/26/2020 6:26 AM ADVISORY INTERN Sexual Orientation Straight 08/26/2020 6: 26 AM ADVISORY INTERN documented as of this encounter Miscellaneous Notes * Telephone Encounter - Slime Hansen - 06/01/2020 12:05 PM CST 08/03/2020 SORY INTERN documented in this encounter Plan of Treatment Not on file documented as of this encounter Goals Goal Patient Goal Type Associated Problems Recent Progress Patient-Stated? Author CCM Chronic Pain Care Plan Chronic Care Management Improving( 10:05 AM ADVISORY INTERN) No Bessy Mancuso RN Note: Problem: Chronic Pain Goals: 1. Minimize further functional decline 2. Maximize quality of life 3. Control pain Strategies: - Activity/exercise program recommendation - Conservative stepwise pain medicine strategy with multi-disciplinary approach - Recommend healthy lifestyle strategies and compensatory methods as needed documented as of this encounter Visit Diagnoses Not on filedocumented in this encounter Care Teams Tennis Ball Cover Cementer Relationship Specialty Start Date End Date Felicitas Samuel MD PCP - General 10/13/16 07/19/20 Reanna Polanco, RN Registered Nurse 07/07/19 documented as of this encounter
--- OUTSIDE RECORDS SUMMARY | 2024-07-28 01:09 | XMS_ITS | Encounter Summary ---
Author Organization [facility] Healthcare Address [address] [place] [address] Care Team Providers Care Knife Setter Assembler Name Role Phone Felicitas Samuel MD Primary Care Provider + Reason for Visit * Reason Comments Back Pain Encounter Details Date Type Department Care Team (Late st Contact Info) Description 08/21/2018 12:00 PM METAL TRADES INSTRUCTOR Procedure visit [facility] [address] [facility] [address] [place], [place] [id number] Nancy Fernandez MD [address] [facility] [phone] [place], [place] [id number] Pain of lumbar facet joint (Primary Dx); Chronic bilateral low back pain without sciatica; Osteoarthritis of 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; Sacroiliitis (CMS/HCC) Discharge Disposition: Discharge to home or self care Social History Tobacco Use Types Packs/Day Years Used Date Smoking Tobacco: Never Smokeless Tobacco: Never Alcohol Use Standard Drinks/Week Comments No 0 (1 standard drink = 0.6 oz pur e alcohol) Comments No Sex and Gender Information Value Date Recorded Sex Assigned at Not on file Legal Sex Female 2:03 AM METAL TRADES INSTRUCTOR Gender Identity Female 08/26/2020 6:26 AM METAL TRADES INSTRUCTOR Sexual Orientation Straight 08/26/2020 6: 26 AM METAL TRADES INSTRUCTOR documented as of this encounter Last Filed Vital Signs Vital Sign Reading Time Taken Comments Blood Pressure 135/74 08/21/2018 12:17 PM METAL TRADES INSTRUCTOR Pulse 82 08/21/2018 12:17 PM METAL TRADES INSTRUCTOR Temperature 37 ??C (98.6 ??F) 08/21/2018 12:17 PM METAL TRADES INSTRUCTOR Respiratory Rate 18 08/21/2018 12:17 PM METAL TRADES INSTRUCTOR Oxygen Saturation - - Inhaled Oxygen Concentration - - Weight 65.3 kg (144 lb) 08/21/2018 12:17 PM METAL TRADES INSTRUCTOR Height 172.7 cm (5' 8 ) 08/21/2018 12:17 PM METAL TRADES INSTRUCTOR Body Mass Index 21.9 08/21/2018 12:17 PM METAL TRADES INSTRUCTOR documented in this encounter Discharge Disposition Disposition Code Departure Means Destination Discharge to home or self care documented in this encounter Progress Notes * Ventura Parada MD - 08/21/2018 12:00 PM CST Patient Name: Katrina Camarena : 1960 Today's Date: 08/21/2018 PCP: Felicitas Samuel MD Referring: No ref. provider found Chief Complaint Patient presents with ??? Back Pain HPI Historical Info: KATRINA CAMARENA is [...] - Lidoderm - meloxicam - Savella ?? PT: she has done a lot of PT in the past with benefit. Last 02/2016. She enjoys being active and tries to maintain a regular exercise routine. ?? Interventions: ?? - L4, 5, S1 RFA debbi 2014 - sig benefit ?? Last visit 10/08/2017 Ms. Camarena returns to clinic today for ongoing management of upper back/shoulder and low back myofascial pain. She reports pain has been more tolerable recently given the warm weather. Pain today israted 4/10 in intensity. She denies any numbness/tingling or weakness. Pain is worse with cold weather and improved with heat, medications, and activity. Pain often awakens her in the night. ?? Analgesics: Baclofen 10 mg QHS [place] 7.5/325 mg Cymbalta 60 mg qd (managed by PCP with plan to taper up). ?? She has stopped doing yoga as it started to cause pain and she is concerned with her diagnosis of osteoporosis. She has not done PT in >1 year and does not have exercises for her upper back. She continues walking routine. ?? INTERVAL HISTORY (08/21/2018): Katrina Camarena returns to clinic today. She presents for ongoing management of low back pain. Patient reports that her pain is unchanged. She is s/p R L3-S1 RFA with significant ongoing pain relief (~70%). Since the last visit, patient reports noticing some R groin pain with radiation down her anterior R thigh after doing Mrs. Wayne prior to . The pain is frequency and aching, penetrating, gnawing, tender, and tiring in nature. It rates 5-7/10 on the numeric pain scale; average 6/10. It is worse the morning and with weather changes, and improves after walking and with pain medications. She denies any numbness/tingling or weakness. Her ADLs are partially affected, but still manageable on her own. ?? Last visit we did the following: Intervention: R L3-S1 RFA with good ongoing pain relief Medication adjustments: none Referrals: none Current Pain meds: Pain Medications bvurkdqcmqkwo-kysknrx-pioymcwc (EXCEDRIN MIGRAINE) 250-250-65 mg per tablet daily. ARIPiprazole (ABILIFY) 5 mg tablet daily. baclofen (LIORESAL) 10 mg tablet TAKE ONE-TWO TABLETS TID PRN DULoxetine DR (CYMBALTA) 30 mg capsule HYDROcodone-acetaminophen (NORCO) 7.5-325 mg per tablet Take 1 tablet by mouth 3 (three) times a day. As need for pain meloxicam (MOBIC) 15 mg tablet Take 1 tablet (15 mg total) by mouth daily. DULoxetine DR (CYMBALTA) 60 mg capsule Take 1 capsule (60 mg total) by mouth daily. No results found. Review of Systems Review of Systems ROS all other systems negative other than as documented in HPI Patient's Medications New Prescriptions No medications on file Previous Medications ONZIJHBTSQARV-DHHXZOC-JYYAUZGY (EXCEDRIN MIGRAINE) 250-250-65 MG PER TABLET daily. Authorizing Provider: Historical Provider, Notes: -- ALENDRONATE (FOSAMAX) 70 MG TABLET Authorizing Provider: Joaquín Beckman MD Notes: -- ARIPIPRAZOLE (ABILIFY) 5 MG TABLET daily. Authorizing Provider: Joaquín Beckman MD Notes: -- ASCORBIC ACID (VITAMIN C) 1,000 MG TABLET Take 1,000 mg by mouth daily. Authorizing Provider: Joaquín Beckman MD Notes: -- BACLOFEN (LIORESAL) 10 MG TABLET TAKE ONE-TWO TABLETS TID PRN Authorizing Provider: Joaquín Beckman MD Notes: -- CALCIUM CARB,GLUCON-VITAMIN D2 500 MG CALCIUM -200 UNIT TABLET Authorizing Provider: Joaquín Beckman MD Notes: -- CETIRIZINE 10 MG TABLET,DISINTEGRATING daily. Authorizing Provider: Joaquín Beckman MD Notes: [...] tablet by mouth 3 (three) times a day. As need for pain Authorizing Provider: Nancy Fernandez MD Notes: -- LIDOCAINE (LIDODERM) 5 % Use 2 to 3 patches to area of pain daily, max 12 hrs any one area of skin Authorizing Provider: Joaquín Beckman MD Notes: -- MAGNESIUM OXIDE 400 MG CAPSULE Authorizing Provider: Joaquín Beckman MD Notes: -- MELOXICAM (MOBIC) 15 MG TABLET Take 1 tablet (15 mg total) by mouth daily. Authorizing Provider: Nancy Fernanedz MD Notes: -- MONTELUKAST (SINGULAIR) 10 MG TABLET daily. Authorizing Provider: Joaquín Beckman MD Notes: -- OMEGA 1-HOF-PEY-FISH OIL 1,000 MG (120 MG-180 MG) CAPSULE daily Authorizing Provider: Joaquín Beckman MD Notes: -- ONSS-HZXT-NAK-WEN-OCZ-ZWYT-HOR (TUMERSAID) [phone] MG TABLET Take by mouth. Authorizing Provider: [...] Reactions ??? Decongestant Capsule Other (See comments) Physical Exam Vitals: 08/21/18 1217 BP: 135/74 Pulse: 82 Resp: 18 Temp: 98.6 ??F (37 ??C) Weight: 65.3 kg (144 lb) Height: 172.7 cm (5' 8 ) Body mass index is 21.9 kg/m??. CONSTITUTIONAL:?general appearance normal EYES:?Normal conjunctivae/lids EARS / NOSE / MOUTH / THROAT: Hearing assessment normal. Lips, teeth and gums normal. CARDIOVASCULAR:??No Lower extremity edema CHEST:??Symmetric. RESPIRATORY: Normal respiratory effort MUSCULOSKELETAL EXAMINATION:?Gait normal. LUMBOSACRAL SPINE:??Mild TTP across thoracic and lumbosacral spine, negative facet loading bilaterally. SLR/Jerod's sign normal. Mild TTP in bilateral SI joint (R>L), OMA's test positive on R side. LOWER EXTREMITIES: Normal range of motion. Normal muscle strength. No tenderness.? SKIN: no obvious rashes NEUROLOGIC EXAM:?Cranial nerves II-XII grossly normal. Balance normal. PSYCHIATRIC:??PSYCHIATRIC:?Normal mood and affect. Memory intact. Alert. Speech Patterns: Normal. Assessment The above note documents my personal evaluation of this patient. In addition, I have reviewed and confirmed with the patient and nurse the supportive information documented in today's scanned PatientHealth Questionnaire and Office Note. No diagnosis found. Plan 1. Interventions: Given patient's signs and symptoms of lumbar facet arthropathy with significant pain relief from bilateral diagnostic L3-S1 medial branch block previously, we will proceed with LEFTL3-S1 RFA today. Patient likely has a SI component to her pain as well given elicitation of pain with SI joint provocative maneuvers. 2. Medications: ?? Patient may continue her current regimen without changes. Outpatient Encounter Prescriptions as of 08/21/2018 Medication Sig Dispense Refill ??? ljnhbejbrqlrm-wnmafxv-nvwoagpi (EXCEDRIN MIGRAINE) 250-250-65 mg per tablet daily. ??? alendronate (FOSAMAX) 70 mg tablet ??? ARIPiprazole (ABILIFY) 5 mg tablet daily. ??? ascorbic acid (vitamin C) 1,000 mg tablet Take 1,000 mg by mouth daily. ??? baclofen (LIORESAL) 10 mg tablet TAKE ONE-TWO TABLETS TID PRN ??? calcium carb,glucon-vitamin D2 500 mg calcium -200 unit tablet ??? cetirizine 10 mg tablet,disintegrating daily. ??? cholecalciferol (VITAMIN D-3) 2,000 unit tablet TAKE 1 TABLET DAILY.- 2000IU ??? DULoxetine DR (CYMBALTA) 30 mg capsule ??? estradiol-norethindrone (ACTIVELLA) 1-0.5 mg per tablet ??? fexofenadine (EILEEN) 180 mg tablet Take 180 mg by mouth daily. ??? HYDROcodone-acetaminophen (NORCO) 7.5-325 mg per tablet Take 1 tablet by mouth 3 (three) times a day. As need for pain 90 tablet 0 ??? lidocaine (LIDODERM) 5 % Use 2 to 3 patches to area of pain daily, max 12 hrs any one area of skin ??? magnesium oxide 400 mg capsule ??? meloxicam (MOBIC) 15 mg tablet Take 1 tablet (15 mg total) by mouth daily. 90 tablet 3 ??? montelukast (SINGULAIR) 10 mg tablet daily. ??? omega 2-xdn-kqk-fish oil 1,000 mg (120 mg-180 mg) capsule daily ??? pnnj-qnqn-byu-jdg-dty-xzuk-hor (TUMERSAID) [phone] mg tablet Take by mouth. ??? turmeric root extract 500 mg capsule Take 1,500 mg by mouth. ??? zolpidem (AMBIEN) 10 mg tablet TAKE 1 TABLET AT BEDTIME NEEDED FOR SLEEP. ??? DULoxetine DR (CYMBALTA) 60 mg capsule Take 1 capsule (60 mg total) by mouth daily. 30 capsule 0 No facility-administered encounter medications on file as of 08/21/2018. 3. Imaging: No further imaging needed at this current time. 4. Referral: No referrals needed at this current time. 5. Follow-up: In 2 months for re-evaluation of the above regimen. Will consider performing R SI joint steroid injection if pain does not improve. No orders of the defined types were placed in this encounter. No Follow-up on file. Ventura Parada MD Cosigned by Nancy Fernandez MD at 08/23/2018 8:01 AM METAL TRADES INSTRUCTOR L TRADES INSTRUCTOR Associated attestation - Nancy Fernandez MD - 08/23/2018 8:01 AM METAL TRADES INSTRUCTOR I have seen and examined the patient. I agree with the findings and plan of care as documented in the resident's note.. * Ventura Parada MD - 08/21/2018 12:00 PM CST Patient Name: Katrina Camarena : 1960 Today's Date: 08/21/2018 PCP: Felicitas Samuel MD Referring: No ref. provider found Chief Complaint Patient presents with ??? Back Pain HPI Historical Info: KATRINA CAMARENA is [...] - Lidoderm - meloxicam - Savella ?? PT: she has done a lot of PT in the past with benefit. Last 02/2016. She enjoys being active and tries to maintain a regular exercise routine. ?? Interventions: ?? - L4, 5, S1 RFA debbi 2014 - sig benefit ?? Last visit 10/08/2017 Ms. Camarena returns to clinic today for ongoing management of upper back/shoulder and low back myofascial pain. She reports pain has been more tolerable recently given the warm weather. Pain today israted 4/10 in intensity. She denies any numbness/tingling or weakness. Pain is worse with cold weather and improved with heat, medications, and activity. Pain often awakens her in the night. ?? Analgesics: Baclofen 10 mg QHS [place] 7.5/325 mg Cymbalta 60 mg qd (managed by PCP with plan to taper up). ?? She has stopped doing yoga as it started to cause pain and she is concerned with her diagnosis of osteoporosis. She has not done PT in >1 year and does not have exercises for her upper back. She continues walking routine. INTERVAL HISTORY (08/21/2018): Katrina Camarena returns to clinic today. She presents for ongoing management of low back pain. Patient reports that her pain is unchanged. She is s/p R L3-S1 RFA with significant ongoing pain relief (~70%). Since the last visit, patient reports noticing some R groin pain with radiation down her anterior R thigh after doing Mrs. Wayne prior to . The pain is frequency and aching, penetrating, gnawing, tender, and tiring in nature. It rates 5-7/10 on the numeric pain scale; average 6/10. It is worse the morning and with weather changes, and improves after walking and with pain medications. She denies any numbness/tingling or weakness. Her ADLs are partially affected, but still manageable on her own. Last visit we did the following: Intervention: R L3-S1 RFA with good ongoing pain relief Medication adjustments: none Referrals: none Current Pain meds: Pain Medications repmhdlmbpxut-wtesbhj-odrougos (EXCEDRIN MIGRAINE) 250-250-65 mg per tablet daily. ARIPiprazole (ABILIFY) 5 mg tablet daily. baclofen (LIORESAL) 10 mg tablet TAKE ONE-TWO TABLETS TID PRN DULoxetine DR (CYMBALTA) 30 mg capsule HYDROcodone-acetaminophen (NORCO) 7.5-325 mg per tablet Take 1 tablet by mouth 3 (three) times a day. As need for pain meloxicam (MOBIC) 15 mg tablet Take 1 tablet (15 mg total) by mouth daily. DULoxetine DR (CYMBALTA) 60 mg capsule Take 1 capsule (60 mg total) by mouth daily. No results found. Review of Systems Review of Systems ROS all other systems negative other than as documented in HPI Patient's Medications New Prescriptions No medications on file Previous Medications TABDWHANOQWNF-ZJKSIHQ-KUNYKXUW (EXCEDRIN MIGRAINE) 250-250-65 MG PER TABLET daily. Authorizing Provider: Joaquín Beckman MD Notes: -- ALENDRONATE (FOSAMAX) 70 MG TABLET Authorizing Provider: Joaquín Beckman MD Notes: -- ARIPIPRAZOLE (ABILIFY) 5 MG TABLET daily. Authorizing Provider: Joaquín Beckman MD Notes: -- ASCORBIC ACID (VITAMIN C) 1,000 MG TABLET Take 1,000 mg by mouth daily. Authorizing Provider: Joaquín Beckman MD Notes: -- BACLOFEN (LIORESAL) 10 MG TABLET TAKE ONE-TWO TABLETS TID PRN Authorizing Provider: Joaquín Beckman MD Notes: -- CALCIUM CARB,GLUCON-VITAMIN D2 500 MG CALCIUM -200 UNIT TABLET Authorizing Provider: Joaquín Beckman MD Notes: -- CETIRIZINE 10 MG TABLET,DISINTEGRATING daily. Authorizing Provider: Joaquín Beckman MD Notes: [...] tablet by mouth 3 (three) times a day. As need for pain Authorizing Provider: Nancy Fernandez MD Notes: -- LIDOCAINE (LIDODERM) 5 % Use 2 to 3 patches to area of pain daily, max 12 hrs any one area of skin Authorizing Provider: Joaquín Beckman MD Notes: -- MAGNESIUM OXIDE 400 MG CAPSULE Authorizing Provider: Joaquín Beckman MD Notes: -- MELOXICAM (MOBIC) 15 MG TABLET Take 1 tablet (15 mg total) by mouth daily. Authorizing Provider: Nancy Fernandez MD Notes: -- MONTELUKAST (SINGULAIR) 10 MG TABLET daily. Authorizing Provider: Joaquín Beckman MD Notes: -- OMEGA 1-RQI-XEU-FISH OIL 1,000 MG (120 MG-180 MG) CAPSULE daily Authorizing Provider: Joaquín Beckman MD Notes: -- SJZN-EAJW-NOD-QLI-EZO-LNXS-HOR (TUMERSAID) [phone] MG TABLET Take by mouth. Authorizing Provider: [...] Reactions ??? Decongestant Capsule Other (See comments) Physical Exam Vitals: 08/21/18 1217 BP: 135/74 Pulse: 82 Resp: 18 Temp: 98.6 ??F (37 ??C) Weight: 65.3 kg (144 lb) Height: 172.7 cm (5' 8 ) Body mass index is 21.9 kg/m??. CONSTITUTIONAL:?? general appearance normal EYES:?? Normal conjunctivae/lids EARS / NOSE / MOUTH / THROAT: Hearing assessment normal. Lips, teeth and gums normal. CARDIOVASCULAR:??No Lower extremity edema CHEST:??Symmetric. RESPIRATORY: Normal respiratory effort MUSCULOSKELETAL EXAMINATION:?? Gait normal. LUMBOSACRAL SPINE:??Mild TTP across thoracic and lumbosacral spine, negative facet loading bilaterally. SLR/Jerod's sign normal. Mild TTP in bilateral SI joint (R>L), OMA's test positive on R side. LOWER EXTREMITIES: Normal range of motion. Normal muscle strength. No tenderness. ?? SKIN: no obvious rashes NEUROLOGIC EXAM:?? Cranial nerves II-XII grossly normal. Balance normal. PSYCHIATRIC:??PSYCHIATRIC:?? Normal mood and affect. Memory intact. Alert. Speech Patterns: Normal. Assessment The above note documents my personal evaluation of this patient. In addition, I have reviewed and confirmed with the patient and nurse the supportive information documented in today's scanned PatientHealth Questionnaire and Office Note. No diagnosis found. Plan 1. Interventions: Given patient's signs and symptoms of lumbar facet arthropathy with significant pain relief from bilateral diagnostic L3-S1 medial branch block previously, we will proceed with LEFTL3-S1 RFA today. Patient likely has a SI component to her pain as well given elicitation of pain with SI joint provocative maneuvers. 2. Medications: ?? Opioids: Opioids are not indicated ?? Adjuvants: Patient may continue her current regimen without changes. Outpatient Encounter Prescriptions as of 08/21/2018 Medication Sig Dispense Refill ??? pagzeefpnxwcu-xtprdnh-bkryjjrf (EXCEDRIN MIGRAINE) 250-250-65 mg per tablet daily. ??? alendronate (FOSAMAX) 70 mg tablet ??? ARIPiprazole (ABILIFY) 5 mg tablet daily. ??? ascorbic acid (vitamin C) 1,000 mg tablet Take 1,000 mg by mouth daily. ??? baclofen (LIORESAL) 10 mg tablet TAKE ONE-TWO TABLETS TID PRN ??? calcium carb,glucon-vitamin D2 500 mg calcium -200 unit tablet ??? cetirizine 10 mg tablet,disintegrating daily. ??? cholecalciferol (VITAMIN D-3) 2,000 unit tablet TAKE 1 TABLET DAILY.- 2000IU ??? DULoxetine DR (CYMBALTA) 30 mg capsule ??? estradiol-norethindrone (ACTIVELLA) 1-0.5 mg per tablet ??? fexofenadine (EILEEN) 180 mg tablet Take 180 mg by mouth daily. ??? HYDROcodone-acetaminophen (NORCO) 7.5-325 mg per tablet Take 1 tablet by mouth 3 (three) times a day. As need for pain 90 tablet 0 ??? lidocaine (LIDODERM) 5 % Use 2 to 3 patches to area of pain daily, max 12 hrs any one area of skin ??? magnesium oxide 400 mg capsule ??? meloxicam (MOBIC) 15 mg tablet Take 1 tablet (15 mg total) by mouth daily. 90 tablet 3 ??? montelukast (SINGULAIR) 10 mg tablet daily. ??? omega 1-mzz-tcp-fish oil 1,000 mg (120 mg-180 mg) capsule daily ??? pjyq-rmjj-wbj-tkg-rvx-mbdt-hor (TUMERSAID) [phone] mg tablet Take by mouth. ??? turmeric root extract 500 mg capsule Take 1,500 mg by mouth. ??? zolpidem (AMBIEN) 10 mg tablet TAKE 1 TABLET AT BEDTIME NEEDED FOR SLEEP. ??? DULoxetine DR (CYMBALTA) 60 mg capsule Take 1 capsule (60 mg total) by mouth daily. 30 capsule 0 No facility-administered encounter medications on file as of 08/21/2018. 3. Imaging: No further imaging needed at this current time. 4. Referral: No referrals needed at this current time. 5. Follow-up: In 2 months for re-evaluation of the above regimen. Will consider performing R SI joint steroid injection if pain does not improve. No orders of the defined types were placed in this encounter. No Follow-up on file. Ventura Parada MD Resident, Pain Management, Department of Anesthesiology [facility], [facility] L TRADES INSTRUCTOR L TRADES INSTRUCTOR documented in this encounter Plan of Treatment Not on file documented as of this encounter Goals Goal Patient Goal Type Associated Problems Recent Progress Patient-Stated? Author CCM Chronic Pain Care Plan Chronic Care Management Improving( 10:05 AM METAL TRADES INSTRUCTOR) No Bessy Mancuso RN Note: Problem: Chronic [...] Chronic bilateral low back pain without sciatica Osteoarthritis of 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 Sacroiliitis (HCC) Sacroiliitis, not elsewhere classified documented in this encounter Historical Medications * This list may reflect changes made after this encounter. DULoxetine DR (CYMBALTA) 30 mg capsule 30 mg Total dose 90 mg a day 08/13/2018 06/06/2021 added in this encounter Care Teams Knife Setter Assembler Relationship Specialty Start Date End Date Felicitas Samuel MD PCP - General 10/13/16 07/19/20 documented as of this encounter
--- OUTSIDE RECORDS SUMMARY | 2024-07-28 01:09 | XMS_ITS | Encounter Summary ---
Author Organization [facility] Healthcare Address [address] [place] [address] Care Team Providers Care Lumber Cutter Name Role Phone Felicitas Samuel MD Primary Care Provider + Encounter Details Date Type Department Care Team (Latest Contact Info) Description 08/21/2018 11:25 AM CASH APPLICATIONS CLERK - 08/21/2018 3:03 PM CASH APPLICATIONS CLERK Hospital Encounter [facility] Pain Management [address] [place], [place] [id number] Nancy Fernandez MD [address] [facility] [place] [phone] [place], [place] [id number] Discharge Disposition: Discharge to home or self care Social History Tobacco Use Types Packs/Day Years Used Date Smoking Tobacco: Never Smokeless Tobacco: Never Alcohol Use Standard Drinks/Week Comments No 0 (1 standard drink = 0.6 oz pur e alcohol) Comments No Sex and Gender Information Value Date Recorded Sex Assigned at Not on file Legal Sex Female 2:03 AM CASH APPLICATIONS CLERK Gender Identity Female 08/26/2020 6:26 AM CASH APPLICATIONS CLERK Sexual Orientation Straight 08/26/2020 6: 26 AM CASH APPLICATIONS CLERK documented as of this encounter Last Filed Vital Signs Vital Sign Reading Time Taken Comments Blood Pressure 122/70 08/21/2018 2:59 PM CASH APPLICATIONS CLERK Pulse 100 08/21/2018 2:59 PM CASH APPLICATIONS CLERK Temperature - - Respiratory Rate 18 08/21/2018 2:59 PM CASH APPLICATIONS CLERK Oxygen Saturation 99% 08/21/2018 2:59 PM CASH APPLICATIONS CLERK Inhaled Oxygen Concentration - - Weight - - Height - - Body Mass Index - - documented in this encounter Discharge Instructions * Discharge Instructions* Idania Self, RN - 08/21/2018 2:03 PM CASH APPLICATIONS CLERK MEDICATIONS: Continue current home medications with change(s) Start: Discontinue: [] Resume blood thinner: On DIET: [] Resume normal diet [] Do not eat for six (6) hours or drink for three (3) hours before your next procedure. [] No eating or drinking 2 hours after the procedure. ACTIVITY: [] Resume normal activity [x] No driving for 24 hours [x] May shower today [x] Do not soak in water (bathtub, hot tub, pool) until tomorrow. [x] Do no remove dressing until: tonight REFERRALS: Physical Therapy [] [facility] ([phone]) [] [facility] (Graded Motor Imagery) [] [facility] ([phone]) [] Other: Behavior Medicine [] Pain Psychologist, [facility] ([phone]) Diagnostic Tests: EDUCATION provided on the following: [] Information Sheet on new medication(s) given [] Notify your pharmacy for refill(s) 7 days before out of medication. [] Dosing Schedule of medication(s) [] Side Effects of Pain Medications [] Opioid (Narcotic) Agreement [] Spinal Cord Stimulator Education and DVD. Vendor: [] Procedure today: Left Lumbar Radiofrequency Ablation Other: FOLLOW UP APPOINTMENTS: [] Return as needed [x] Follow up appointment [x] Procedure at next visit : Sacroiliac Joint Injection [] Reviewed and given Pre-Procedure information sheet. [] We will contact you the next business day [] To obtain Pain diary Anticoagulation Instructions Prior to Procedure [] Stop Blood Thinner: [] Number of days to hold medication prior to procedure: [] Blood work required 2 hours before procedure (PT/INR). Post-procedure Sedation Discharge Instructions /Precautions 1. Effects [...] anylegal documents for at least 24 hours. Patient provided information and repeated back with understanding. If you need to reach us: For any questions about your procedure, please call the [facility] [phone] ([phone]) (8am-4pm) If you need urgent attention after 5 pm and weekends: Call the [facility] Casting Operator Helper at [phone] and ask for the Pain Service doctor chlorination operator. APPLICATIONS CLERK documented in this encounter Medications at Time [...] mg calcium -200 unit tablet daily 04/19/2020 cetirizine 10 mg tablet,disintegra ting daily. 04/13/2017 11/19/2018 cholecalciferol (VITAMIN D-3) 2,000 unit tablet TAKE [...] day. As need for pain 90 tablet 08/08/2018 09/05/2018 lidocaine (LIDODERM) 5 % Place 1 patch on the skin daily as needed for pain 07/27/2016 08/03/2020 magnesium oxide 400 mg capsule 250 mg 3 tablets a day 04/19/2020 meloxicam (MOBIC) 15 mg tabletIndications :Osteoarthritis Take 1 tablet (15 mg total) by mouth daily. 90 tablet 3 06/18/2018 06/10/2019 omega 4-fyz-rek-fish oil 1,000 mg (120 mg-180 mg) capsule Take 1 capsule by mouth every morning 09/05/2022 lnpn-nvsi-suf-yuc -xfe-nysf-rmd (TUMERSAID) [phone] mg tablet daily 04/19/2020 turmeric root extract 500 mg capsuleIndication s:OTC Take 1,350 mg by mouth every morning 09/05/2022 documented as of this encounter Discharge Disposition Disposition Code Departure Means Destination Discharge to home or self care documented in this encounter Miscellaneous Notes * Perioperative Nursing Note - Mahogany Marcial RN - 08/21/2018 3:01 PM CASH APPLICATIONS CLERK Pt able to walk with steady gait and RN at her side. Ready for discharge. Pt son class a regional drivers home. APPLICATIONS CLERK * Perioperative Nursing Note - Mai Del Cid RN - 08/21/2018 2:35 PM CASH APPLICATIONS CLERK Able to bear weight on left leg and stand. Did not attempt walking yet. APPLICATIONS CLERK * Perioperative Nursing Note - Mai Del Cid RN - 08/21/2018 2:23 PM CASH APPLICATIONS CLERK Difficulty bearing weight on left leg. APPLICATIONS CLERK * Perioperative Nursing Note - Idania Self RN - 08/21/2018 2:07 PM CASH APPLICATIONS CLERK Grounding pad removed, skin without redness or blister APPLICATIONS CLERK * Perioperative Nursing Note - Idania Self RN - 08/21/2018 1:40 PM CASH APPLICATIONS CLERK Grounding pad to left posterior thigh APPLICATIONS CLERK * Perioperative Nursing Note - Fouzia Coats RN - 08/21/2018 12:28 PM CASH APPLICATIONS CLERK Patient's son will drive patient home APPLICATIONS CLERK * Op Note - Nancy Fernandez MD - 08/21/2018 12:05 PM CST NAME OF PROCEDURE: Radiofrequency Ablation of Medial Branch Nerves (Lumbar) at left L3, L4, L5, andS1 SURGEON: Nancy Fernandez M.D. PEELER OPERATOR SURGEON: PEELER OPERATOR SURGEON: Ventura Parada M.D. PREPROCEDURAL DIAGNOSES: Other Chronic Pain Lumbar Facet [...] aspects of the transverse process at left L3, L4, L5. Correct needle position was verified using oblique, [...] motor responses were perceived in the lower extremity at L4, and L5. Despite repositioning of the probe multiple times at L3, the patient did have a motor response to testing. After successful stimulation testing, lidocaine 2% with 1mg dexamethasone x 2 ml was injected at L4 and L5. Subsequently, radiofrequency neural ablation was carried out at a lesion temperature of 80 degrees C for 90 seconds at L4 and L5. Lesioning was not carried out at L3 dud to recurrent motor response to testing. In this manner, radiofrequency neural ablation lesions were carried out at the transverse processesof left L4 and L5. Attention was then turned to [...] DISPOSITION: Patient discharged home in stable condition. APPLICATIONS CLERK documented in this encounter Plan of Treatment Not on file documented as of this encounter Goals Goal Patient Goal Type Associated Problems Recent Progress Patient-Stated? Author CCM Chronic Pain Care Plan Chronic Care Management Improving( 10:05 AM CASH APPLICATIONS CLERK) No Bessy Mancuso RN Note: Problem: Chronic Pain Goals: 1. Minimize further functional decline 2. Maximize quality of life 3. Control pain Strategies: - Activity/exercise program recommendation - Conservative stepwise pain medicine strategy with multi-disciplinary approach - Recommend healthy lifestyle strategies and compensatory methods as needed documented as of this encounter Procedures Procedure Name Priority Date/Time Associated Diagnosis Comments FL FLUORO GUIDANCE FOR SPINE NEEDLE PLACEMENT (STATISTICAL ONLY) IP Routine 08/21/2018 2:05 PM CASH APPLICATIONS CLERK RADIOFREQUENCES DESTRUCTION LUMBO/SACRAL 1 LEVEL W IMAGING [id number] 08/21/2018 1:26 PM CASH APPLICATIONS CLERK PAIN Case Notes Soarian shell not complete. Unable to add auth info. J.S. 08/20/2018 documented in this encounter Results * FL FLUORO GUIDANCE FOR SPINE NEEDLE PLACEMENT (Statistical Only) (08/21/2018 2:05 PM CASH APPLICATIONS CLERK) Narrative [facility] - 08/21/2018 2:12 PM CASH APPLICATIONS CLERK The images from this study are not interpreted by Radiology. ??Please refer to the physician's procedure / OR operative note. us Nancy Fernandez MD IMG IR PROCEDURES Final Re sult [facility] documented in this encounter Visit Diagnoses Not on filedocumented in this encounter Active and Recently Administered Medications Times are shown in CASH APPLICATIONS CLERK. PRN Medication Order 08/19/2018 08/20/2018 08/21/2018 dexamethasone (DECADRON) injection (CANCELED) Administer over 2 Minutes, As needed, Starting on Sun08/21/18 at 1334, Intra-Op 1334 (Given - Provid er: Nancy Fernandez MD) fentaNYL (SUBLIMAZE) preservative free syringe (CANCELED) As needed, Starting on Sun08/21/18 at 1330, Intra-Op 1330 (Given - Provid er: Idania Self, RUBIO) ketorolac (TORADOL) injection (CANCELED) As needed, Starting on Sun08/21/18 at 1330, Intra-Op 1330 (Given - Provid er: Idania Self, RUBIO) lidocaine (XYLOCAINE) 20 mg/mL (2 %) preservative free injection (CANCELED) As needed, Starting on Sun08/21/18 at 1335, Intra-Op 1335 (Given - Provid er: Idania Self RN) lidocaine PF (XYLOCAINE) 10 mg/mL (1 %) preservative free injection (CANCELED) As needed, Starting on Sun08/21/18 at 1402, Intra-Op 1402 (Given - Provid er: Nancy Fernandez MD) midazolam (VERSED) 2 mg/2 mL preservative free injection (CANCELED) Administer over 2 Minutes, As needed, Starting on Sun08/21/18 at 1335, Intra-Op 1335 (Given - Provid er: Idania Self, RUBIO) documented in this encounter Orders Medications Ordered That Thai ht Not Have Been Administered Count Last Ordered Date First Ordered Date dexamethasone (DECADRON) 4 m g/mL injection - ADS Override Pull 08/21/2018 dexamethasone (DECADRON) injection 2018 fentaNYL (SUBLIMAZE) 50 mcg/ mL preservative free injection - ADS Override Pull 1 08/21/2018 fentaNYL (SUBLIMAZE) preserv ative free syringe 08/21/2018 ketorolac (TORADOL) 30 mg/mL (1 mL) injection - ADS Override Pull 08/21/2018 ketorolac (TORADOL) injection 08/21/2018 lidocaine (XYLOCAINE) 20 mg/ mL (2 %) preservative free injection 08/21/2018 lidocaine (XYLOCAINE) 20 mg/ mL (2 %) preservative free injection - ADS Override Pull 2 08/21/2018 lidocaine PF (XYLOCAINE) 10 mg/mL (1 %) preservative free injection 1 08/21/2018 lidocaine PF (XYLOCAINE) 10 mg/mL (1 %) preservative free injection - ADS Override Pull 1 08/21/2018 midazolam (VERSED) 1 mg/mL i njection - ADS Override Pull 1 08/21/2018 midazolam (VERSED) 2 mg/2 mL preservative free injection 1 08/21/2018 sodium chloride 0.9% solutio n - ADS Override Pull 1 08/21/2018 Discharge Count Last Ordered Date First Orde red Date DISCHARGE PATIENT 1 08/23/2018 documented in this encounter Care Teams Lumber Cutter Relationship Specialty Start Date End Date Felicitas Samuel MD PCP - General 10/13/16 07/19/20 documented as of this encounter
--- OUTSIDE RECORDS SUMMARY | 2024-07-28 01:09 | XMS_ITS | Encounter Summary ---
Author Organization [facility] Healthcare Address [address] [place] [address] Care Team Providers Care Cash Processor Name Role Phone Felicitas Samuel MD Primary Care Provider + Reason for Referral * Diagnostic Imaging (Routine) - Closed Specialty Diagnoses / Procedures Referred By Contac t Referred To Contact Diagnoses Pain management Procedures FL Fluoroscopy < 1 Hour (Statistical Only) Nancy Fernandez MD Phone: tel: fax: [address] [phone] Referral ID Status Reason Start Date Expiration Date Visits Re quested Visits Authorized [id number] Closed 12/12/2018 06/22/2020 1 1 Reason for Visit * Diagnostic Imaging (Routine) - Closed Specialty Diagnoses / Procedures Referred By Contac t Referred To Contact Diagnoses Pain management Procedures FL Fluoroscopy < 1 Hour (Statistical Only) Nancy Fernandez MD Phone: tel: fax: [address] [phone] Referral ID Status Reason Start Date Expiration Date Visits Re quested Visits Authorized [id number] Closed 12/12/2018 06/22/2020 1 1 Encounter Details Date Type Department Care Team (Latest Contact Info) Description 12/12/2018 2:14 PM CDT - 12/12/2018 11:59 PM CDT Hospital Encounter [facility] [place] [address] Nancy Fernandez MD [phone] [place] [address] Pain management Discharge Disposition: Discharge [...] file Legal Sex Female 2:03 AM HAT TRIMMER Gender Identity Female 08/26/2020 6:26 AM HAT TRIMMER Sexual Orientation Straight 08/26/2020 6: 26 AM HAT TRIMMER documented as of this encounter Medications at [...] day As need for pain 90 tablet 12/04/2018 01/02/2019 lidocaine (LIDODERM) 5 % Place 1 patch on the skin daily as needed for pain 07/27/2016 08/03/2020 magnesium oxide 400 mg capsule 250 mg 3 tablets a day 04/19/2020 meloxicam (MOBIC) 15 mg tabletIndications :Osteoarthritis Take 1 tablet (15 mg total) by mouth daily. 90 tablet 3 06/18/2018 06/10/2019 omega 9-jar-ubt-fish oil 1,000 mg (120 mg-180 mg) capsule Take 1 capsule by mouth every morning 09/05/2022 qqoo-ehqq-etk-yuc -rra-asvh-sna (TUMERSAID) [phone] mg tablet daily 04/19/2020 turmeric root extract [...] Chronic Care Management Improving( 10:05 AM HAT TRIMMER) Bessy Gayle, RN Note: Problem: Chronic Pain [...] ONLY) Schedule Routine, Read Routine (OP Routine) 12/12/2018 3:45 PM CDT Pain management documented in this encounter Results * FL Fluoroscopy < 1 Hour (Statistical Only) (12/12/2018 3:45 PM CDT) Narrative [facility] - 12/12/2018 3:55 PM CDT The images from this study are not interpreted by Radiology. ??Please refer to the physician's procedure / OR operative note. us Nancy Fernandez MD IMG FLUOROSCOPY PROCEDURES Final Result [facility] documented in this encounter Visit Diagnoses Diagnosis Pain management documented in this encounter Care Teams Cash Processor Relationship Specialty Start Date End Date Felicitas Samuel MD PCP - General 10/13/16 07/19/20 documented as of this encounter
--- OUTSIDE RECORDS SUMMARY | 2024-07-28 01:09 | XMS_ITS | Encounter Summary ---
Author Organization [facility] Healthcare Address [address] [facility] [facility] [place] [address] Care Team Providers Care Senior Stock Plan Administrator Name Role Phone Felicitas Samuel MD Primary Care Provider + Reason for Visit * Reason Comments Back Pain Encounter Details Date Type Department Care Team (Latest Contact Info) Description 06/10/2019 11:25 AM BEARING MAKER - 06/10/2019 11:59 PM BEARING MAKER Hospital Encounter [facility] [place] [facility] [address] [facility] [address] [place] [address] Nancy Fernandez MD [address] [facility] [phone] [place], [place] [id number] Sacroiliitis (CMS/HCC); Chronic bilateral low back pain without sciatica [...] on file Legal Sex Female 2:03 AM BEARING MAKER Gender Identity Female 08/26/2020 6:26 AM BEARING MAKER Sexual Orientation Straight 08/26/2020 6: 26 AM BEARING MAKER documented as of this encounter Last Filed Vital Signs Vital Sign Reading Time Taken Comments Blood Pressure 130/87 06/10/2019 12:56 PM BEARING MAKER Pulse 90 06/10/2019 12:56 PM BEARING MAKER Temperature 37.3 ??C (99.1 ??F) 06/10/2019 1 1:36 AM BEARING MAKER Respiratory Rate 20 06/10/2019 12:5 6 PM BEARING MAKER Oxygen Saturation 98% 06/10/2019 12: 56 PM BEARING MAKER Inhaled Oxygen Concentration - - Weight 69.7 kg (153 lb 11.2 oz) 019 11:36 AM BEARING MAKER Height 172.7 cm (5' 8 ) 06/10/2019 11:3 6 AM BEARING MAKER Body Mass Index 23.37 06/10/2019 11:36 AM BEARING MAKER documented in this encounter Discharge Instructions * Discharge Instructions* Nancy Kemp RN - 06/10/2019 12:25 PM BEARING MAKER [facility] PATIENT EDUCATION POST-PROCEDURE INFORMATION [...] 4:00 p.m., you should call the hospital portable feed mill operator at and ask to speak with the Pain Service doctor transportation sales consultant. [facility] ([facility]) DISCHARGE INSTRUCTIONS MEDICATIONS: [] Continue your current home medications Start: Celebrex 200 mg oral Daily Celecoxib (By mouth) Celecoxib (rnp-v-FJR-ib) Treats pain. This medicine is an NSAID. Brand Name(s): CeleBREX, SmartRx CapXib Kit There may be other brand names for this medicine. When This Medicine Should Not Be Used: This medicine is not right for everyone. Do not use it if you had an allergic reaction (including asthma) to celecoxib, aspirin, NSAIDs, or a sulfa drug (such as sulfamethoxazole). Do not use this medicine right before or right after coronary artery bypass graft (CABG). How to Use This Medicine: Capsule ?? Your doctor will tell you how much medicine to use. Do not use more than directed. ?? It is best to take this medicine with food or milk so it does not upset your stomach. ?? Use this medicine for the shortest time possible and in the smallest dose possible. This will help lower the risk of side effects. ?? If you cannot swallow the capsule, you may open it and pour the medicine into a teaspoon of applesauce. Stir the mixture well and swallow right away. Drink enough water to make sure you swallow all of the medicine. ?? This medicine should come with a Medication Guide. Ask your pharmacist for a copy if you do not have one. ?? Missed dose: Take a dose as soon as you remember. If it is almost time for your next dose, wait until then and take a regular dose. Do not take extra medicine to make up for a missed dose. ?? Store the medicine in a closed container at room temperature, away from heat, moisture, and direct light. Any medicine that has been mixed with applesauce may be stored in a refrigerator and used within 6 hours. Drugs and Foods to Avoid: Ask your doctor or pharmacist before using any other medicine, including rquz-nbq-bskahgr medicines, vitamins, and herbal products. ?? Some medicines and foods can affect how celecoxib works. Tell your doctor if you are taking any of the following: ?? A blood thinner, such as warfarin ?? A diuretic (water pill), such as furosemide, hydrochlorothiazide (HCTZ), torsemide ?? Blood pressure medicine, such as enalapril, lisinopril, losartan, olmesartan, valsartan ?? Fluconazole ?? [place] ?? Other pain or arthritis medicine, such as aspirin, diclofenac, ibuprofen, naproxen ?? Steroid medicine, such as hydrocortisone, methylprednisolone, prednisone ?? Do not drink alcohol while you are using this medicine. Warnings While Using This Medicine: ?? Tell your doctor if you are or . Do not use this medicine during the laterpart of , unless your doctor tells you to. ?? Tell your doctor if you have a history of ulcers or other stomach problems, kidney or liver disease, anemia, aspirin-sensitive asthma, high blood pressure, congestive heart failure, or other heartor circulation problems. ?? This medicine may cause the following problems: ?? A serious liver problem ?? Bleeding in your stomach or intestines ?? Increased risk for a heart attack or stroke ?? Risk for disseminated intravascular coagulation (bleeding problem) in children younger than 18 years ?? Tell any doctor or dentist who treats you that you are using this medicine. ?? Your doctor will do lab tests at regular visits to check on the effects of this medicine. Keep all appointments. ?? Keep all medicine [...] or throat, chest tightness, trouble breathing ?? Blistering, peeling, red skin rash ?? Bloody or black, tarry stools ?? Change in how much or how often you urinate, bloody or cloudy urine ?? Chest pain, shortness of breath, or coughing up blood ?? Fast or slow heartbeat ?? Dark urine or pale stools, nausea, vomiting, loss of appetite, stomach pain, yellow skin or eyes ?? Numbness or weakness in your arm or leg, or on one side of your body ?? Pain in your calf ?? Shortness of breath, cold sweat, and bluish skin ?? Sudden or severe headache, dizziness, or problems with vision, speech, or walking ?? Swelling in your hands, ankles, or feet, rapid weight gain ?? Unusual tiredness or weakness, pale skin ?? Vomiting blood or material that looks like coffee grounds If you notice these less serious side effects, talk with your doctor: ?? Mild skin rash ?? Muscle or joint pain If you notice other side effects that you think are caused by this medicine, tell your doctor. Call your doctor for medical advice about side effects. You may report side effects to FDA at 6-682-OKL-1209 ?? 2017 [employer] Information is for End User's use only and may not be sold, redistributed or otherwise used for commercial purposes. The above information is an aids social worker only. It is not intended as medical advice for individual conditions or treatments. Talk to your doctor, nurse or pharmacist before following any medical regimen to see if it is safe and effective for you. [x] Notify your pharmacy for refill(s) 7 days before you are out of your medication. [] Opioid (Narcotic) Agreement signed and patient received copy. [] Side Effects of Opioid Medications given to patient Resume blood thinner: On Discontinue: Meloxicam PROCEDURE at today's visit: Bilateral SI Joint Injection DIET: [x] Resume normal diet [] See [facility] Post Discharge Procedure Information Sheet ACTIVITY: [] Resume normal activity [x] See [facility] Post Discharge Procedure Information Sheet REFERRALS: Physical Therapy [] [facility] Physical Therapy ([phone]) [] [facility] ([employer]aded [employer]) [] [facility] ([phone]) [] [facility] (Graded [employer] Imag[employer]) [] Other: Behavior Medicine [] Pain Psychologist, [facility] Pain Psychology Please call to schedule appointment [phone] or [phone] Diagnostic Test(s): EDUCATION provided on the following: [] Spinal Cord Stimulator Education and DVD. Vendor: FOLLOW UP APPOINTMENTS: [] Return as needed [] Follow up appointment: We will contact you the next business day to obtain: [] An update on your condition [] Your Pain diary scores [x] Procedure at your next visit : Lumbar Radiofrequency Ablation INSTRUCTIONS before your next procedure: [x] See [facility] Pre-Procedure Information Sheet [x] Do not eat or drink for six (6) hours before the time/date of the procedure. [] Inquire with your prescribing provider if ok to hold blood thinner for days before procedure. [] Blood work required 2 hours before procedure: [x] Fish Roe Technician needed for next procedure Patient provided information and repeated back with understanding. If you need to reach us: For any questions about your procedure, please call the Pain Management Center [phone] (M-F) (8am-4pm) If you need urgent attention after 5 pm and weekends: Call the [facility] Bindery Chief at [phone] and ask for the Pain Service doctor transportation sales consultant. ING MAKER documented in this encounter Medications at Time [...] capsule (200 mg total) by mouth daily 30 capsule 06/10/2019 06/25/2019 cholecalciferol (VITAMIN D-3) 2,000 unit tablet TAKE 1 TABLET DAILY.- 2000IU 04/19/2020 DULoxetine (CYMBALTA) 30 mg capsule 30 mg [...] mg 3 tablets a day 04/19/2020 omega 6-wkm-atq-fish oil 1,000 mg (120 mg-180 mg) capsule Take 1 capsule by mouth every morning 09/05/2022 shlz-pxmk-vad-yuc -ujw-muuc-ehy (TUMERSAID) [phone] mg tablet daily 04/19/2020 turmeric root extract 500 mg capsuleIndication s:OTC Take 1,350 mg by mouth every morning 09/05/2022 documented as of this encounter Ordered Prescriptions Prescription Sig Dispense Quantity Refills Last Filled Start Date End Date celecoxib (CeleBREX) 200 mg capsule Take 1 capsule (200 mg total) by mouth daily 30 capsule 06/10/2019 9 documented in this encounter Discharge Disposition Disposition Code Departure Means Destination Discharge to home or self care documented in this encounter Progress Notes * Elyssa Winslow MD PhD - 06/10/2019 12:00 PM CST Patient Name: Annette Camarena : 1960 Today's Date: 06/10/2019 PCP: Felicitas Samuel MD Referring: Nancy Fernandez [...] helped with pain in buttock and groin ?? INTERVAL HISTORY (06/10/2019): Annette Camarena returns to clinic today. She presents for ongoing management of pain in the low back. Her pain is worst in the low back. Finds it difficult to stand up straight, especially in the morning. Cold weather makes the pain worse. Says the RFA done last Jul helped a lot with pain and function. Thinks it is wearing off now. Asking about repeat. Has been taking meloxicam for a long time. Has started experiencing some stomach discomfort, which she relates to the meloxicam. Her PCP started her on prilosec and told her to take a month off of the meloxicam. She did this and stomach was better but fibromyalgia/ generalized body pain was worse. After a month she restarted the meloxicam and the stomach discomfort returned. Pain is at low back. Radiation: none Numbness: none Weakness: none The pain increases with weather changes and cold and decreases with heat, pain meds. Last visit (12/12/18) we did the following: Intervention: bilateral SI injections - helped with pain in buttock and groins Medication adjustments: continue current meds for now. UDS. Referrals: physical therapy - finds it helpful, still going ([facility]) Medications: Baclofen 10mg 1-2 Tab TID PRN: Takes up to 3 per day and this gives some relief Cymbalta 90mg PO qDaily [place] 7.5mg-325mg 1 tab TID PRN: Averages 3 per day and this gives significant relief Lidocaine 5% topical patch: Not utilizing recently very much as these don't provide much benefit Meloxicam 15mg 1 tab PO qDaily Ambien 10mg PO qHS Excedrin Migraine Current Pain meds: Pain Medications wzopskwmljimz-mhfzdtb-bvslujek (EXCEDRIN MIGRAINE) 250-250-65 mg per tablet daily. ARIPiprazole (ABILIFY) 5 mg tablet Take 5 mg by mouth daily baclofen (LIORESAL) 10 mg tablet 20 mg 4 (four) times a day Takes 1-[address] (CYMBALTA) [address] (CYMBALTA) 60 mg capsule Take 1 capsule (60 mg total) by mouth daily. HYDROcodone-acetaminophen (NORCO) 7.5-325 mg per tablet Take 1 tablet by mouth 3 (three) times a day As need for pain meloxicam (MOBIC) 15 mg tablet Take 1 tablet (15 mg total) by mouth daily. No results found. Review of Systems Review of Systems ROS change in physical activity and all other systems negative other than as documented in HPI Patient's Medications New Prescriptions No medications on file Previous Medications GEJUCHDUCBBWY-BPCYBCI-COUXMMXR (EXCEDRIN MIGRAINE) 250-250-65 MG PER TABLET daily. [...] Provider: Joaquín Beckman MD Notes: -- OMEGA 9-XIY-DKJ-FISH OIL 1,000 MG (120 MG-180 MG) CAPSULE daily Authorizing Provider: Joaquín Beckman MD Notes: -- EULE-YKHU-ZCJ-KQX-DEM-INON-HOR (TUMERSAID) [phone] MG TABLET Take by mouth. Authorizing Provider: [...] bladder spasms with decongestants Physical Exam Vitals: 06/10/19 1136 BP: 136/88 Pulse: 87 Resp: 12 Temp: 99.1 ??F (37.3 ??C) Weight: 69.7 kg (153 lb 11.2 oz) Height: 172.7 cm (5' 8 ) Body mass index is 23.37 kg/m??. CONSTITUTIONAL: general appearance normal No deformities Good grooming HEENT: Normocephalic, no lesions, without obvious abnormality. No eyelid/periorbital edema, sclera normal, pupils normal RESPIRATORY: Unlabored CHEST: Symmetric MUSCULOSKELETAL EXAMINATION: gait normal MOTOR EXAMINATION: Strength is 5/5 in the legs. SENSORY EXAMINATION: 0=Normal; no sensory loss THORACIC SPINE: Paraspinal muscle tenderness. LUMBOSACRAL SPINE: Lumbar paraspinal TTP. +lumbar facet loading. TTP over bilateral SI. LOWER EXTREMITIES: Normal range of motion. Normal muscle bulk and tone. SKIN: Skin color, texture, turgor normal. No rashes or lesions NEUROLOGIC EXAM: Alert and oriented x4, non-focal PSYCHIATRIC: alert, oriented, normal behavior, normal mood and normal affect Assessment The above note documents my personal evaluation of this patient. In addition, I have reviewed and confirmed with the patient and nurse the supportive information documented in today's scanned PatientHealth Questionnaire and Office Note. Lumbago Lumbar facet arthropathy Fibromyalgia Bilateral sacroilitis Low back pain Neck pain Plan 1. Interventions: SI injection today, bilateral. Repeat lumbar RFA next available. 2. Medications: - d/c meloxicam (stomach upset) - trial celecoxib. Counseled her to stop celecoxib if she had ongoing stomach upset (we don't want to trade one problem for another - pain relief vs. Gastritis/ ulcer). She understands - cont. Other adjuvants, baclofen, duloxetine Chronic Opioid Therapy (06/10/2019): Current analgesics: hydrocodone/APAP 7.5/325 TID, tumeric Daily dose (MME): 22.5mg/day Benzo: no Meds locked up: She keeps in an unmarked box in the closet and is sure to put them out of sight if anyone is coming into her home (family members, cleaning crew, etc) UDS: 12/12/18 Plan: 12/12/18 3. Imaging: No further imaging needed at this current time. 4. Referral: No referrals needed at this current time. Cont physical therapy/ HEP 5. Follow-up: Next available for consideration of repeat RFA. Cosigned by Nancy Fernandez MD at 06/10/2019 1:46 PM BEARING MAKER ING MAKER Associated attestation - Nancy Fernandez MD - 06/10/2019 1:46 PM BEARING MAKER I have seen and examined the patient on 06/10/19. I agree with the findings and plan of care as documented in the resident's/fellow's note. documented in this encounter Miscellaneous Notes * Op Note - Nancy Fernandez MD - 06/10/2019 12:00 PM CST Surgeon: Nnacy Fernandez M.D. VISUAL DESIGN LEAD SURGEON: Maci Procedure: Bilateral Sacroiliac Joint Injection Pre-procedure Diagnosis: [...] instructions were reviewed. Condition at discharge: Stable ING MAKER * Addendum Note - Malick, Bessy, RT - 06/10/2019 12:00 PM CSTEncounter addended by: RT Yajaira on: 06/10/2019 2:36 PM Actions taken: Charge Capture section accepted ING MAKER documented in this encounter Plan of Treatment Not on file documented as of this encounter Goals Goal Patient Goal Type Associated Problems Recent Progress Patient-Stated? Author CCM Chronic Pain Care Plan Chronic Care Management Improving( 10:05 AM BEARING MAKER) No Bessy Mancuso, RN Note: Problem: Chronic Pain Goals: 1. Minimize further functional decline 2. Maximize quality of life 3. Control pain Strategies: - Activity/exercise program recommendation - Conservative stepwise pain medicine strategy with multi-disciplinary approach - Recommend healthy lifestyle strategies and compensatory methods as needed documented as of this encounter Visit Diagnoses Diagnosis Sacroiliitis (HCC) Sacroiliitis, not elsewhere classified Chronic bilateral low back pain without sciatica documented in this encounter Administered Medications Inactive Administered Medications - up to 3 most recent administrations Medication Order MAR Action Action Date Dose Rate Site bupivacaine (MARCAINE) 0.5 % (5 mg/mL) preservative free injection As needed, Starting on Sun06/10/19 at 1234, Intra-Op Given 06/10/2019 12:39 PM BEARING MAKER 5 mL iohexol (OMNIPAQUE) 300 mg iodine/mL injection solution As needed, Starting on Sun06/10/19 at 1235, Intra-Op Given 06/10/2019 12:39 PM BEARING MAKER 1 mL lidocaine PF (XYLOCAINE) 10 mg/mL (1 %) preservative free injection As needed, Starting on Sun06/10/19 at 1235, Intra-Op Given 06/10/2019 12:40 PM BEARING MAKER 6 mL methylPREDNISolone acetate (DEPO-medrol) injection As needed, Starting on Sun06/10/19 at 1235, Intra-Op Given 06/10/2019 12:40 PM BEARING MAKER 80 mg documented in this encounter Discontinued Medications Medication Sig Discontinue Reason Start Date End Da te meloxicam (MOBIC) 15 mg tabletIndications:Osteoa rthritis Take 1 tablet (15 mg total) by mouth daily. Alternate therapy 06/18/2018 06/10/2019 documented as of this encounter Orders Medications Ordered That Thai ht Not Have Been Administered Count Last Ordered Date First Ordered Date bupivacaine (MARCAINE) 0.5 % (5 mg/mL) preservative free injection - ADS Override Pull 1 06/10/2019 lidocaine PF (XYLOCAINE) 10 mg/mL (1 %) preservative free injection - ADS Override Pull 1 06/10/2019 methylPREDNISolone acetate ( DEPO-medrol) 40 mg/mL injection - ADS Override Pull 1 06/10/2019 methylPREDNISolone acetate ( DEPO-medrol) 80 mg/mL injection - ADS Override Pull 1 06/10/2019 documented in this encounter Care Teams Senior Stock Plan Administrator Relationship Specialty Start Date End Date Felicitas Samuel MD PCP - General 10/13/16 07/19/20 documented as of this encounter
--- OUTSIDE RECORDS SUMMARY | 2024-07-28 01:09 | XMS_ITS | Encounter Summary ---
Author Organization [facility] Healthcare Address [address] [place] [address] Care Team Providers Care Mercantile Reporter Name Role Phone Felicitas Samuel MD Primary Care Provider + Encounter Details Date Type Department Care Team (Late st Contact Info) Description 12/20/2018 Telephone [facility] [place] [facility] [address] [facility] [address] [place] [address] Nancy Fernandez MD [address] [facility] [phone] [place] [address] Social History Tobacco Use Types Packs/Day Years Used Date Smoking Tobacco: Never Smokeless Tobacco: Never Alcohol Use Standard Drinks/Week Comments No 0 (1 standard drink = 0.6 oz pur e alcohol) Comments No Sex and Gender Information Value Date Recorded Sex Assigned at Not on file Legal Sex Female 2:03 AM STORY ANALYST Gender Identity Female 08/26/2020 6:26 AM STORY ANALYST Sexual Orientation Straight 08/26/2020 6: 26 AM STORY ANALYST documented as of this encounter Miscellaneous Notes * Telephone Encounter - Reanna Polanco RN - 12/20/2018 8:36 AM CDT ----- Message from Nancy Fernandez MD sent at 12/20/2018 8:28 AM CDT ----- UDS results documented in this encounter Plan of Treatment Not on file documented as of this encounter Goals Goal Patient Goal Type Associated Problems Recent Progress Patient-Stated? Author CCM Chronic Pain Care Plan Chronic Care Management Improving( 10:05 AM STORY ANALYST) No Bessy Mancuso RN Note: Problem: Chronic Pain Goals: 1. Minimize further functional decline 2. Maximize quality of life 3. Control pain Strategies: - Activity/exercise program recommendation - Conservative stepwise pain medicine strategy with multi-disciplinary approach - Recommend healthy lifestyle strategies and compensatory methods as needed documented as of this encounter Visit Diagnoses Not on filedocumented in this encounter Care Teams Mercantile Reporter Relationship Specialty Start Date End Date Felicitas Samuel MD PCP - General 10/13/16 07/19/20 documented as of this encounter
--- OUTSIDE RECORDS SUMMARY | 2024-07-28 01:09 | XMS_ITS | Encounter Summary ---
Author Organization [facility] Healthcare Address [address] [place] [address] Care Team Providers Care Line Up Machine Operator Name Role Phone Felicitas Samuel MD Primary Care Provider + Reason for Visit * Reason Comments Back Pain LBP to R hip Neck Pain bilateral shoulder Encounter Details Date Type Department Care Team (Latest Contact Info) Description 03/10/2019 12:46 PM CDT - 03/10/2019 11:59 PM CDT Hospital Encounter [facility] [place] [facility] [address] [place] [address] Nancy Fernandez MD [address] [facility] [address] [facility] [place] [place] [phone] [place], [place] [id number] Fibromyalgia (Primary Dx); Sacroiliitis (CMS/HCC); Chronic bilateral low back pain without sciatica; [...] HR CLERK documented as of this encounter Last Filed Vital Signs Vital Sign Reading Time Taken Comments Blood Pressure 129/76 03/10/2019 1:53 PM CDT Pulse 86 03/10/2019 1:53 PM CDT Temperature - - Respiratory Rate 16 03/10/2019 1:53 PM CDT Oxygen Saturation 97% 03/10/2019 1:53 PM CDT Inhaled Oxygen Concentration - - Weight 69.4 kg (153 lb) 03/10/2019 12:52 PM CDT Height 172.7 cm (5' 8 ) 03/10/2019 12:52 PM CDT Body Mass Index 23.26 03/10/2019 12:52 PM CDT documented in this encounter Discharge Instructions * Discharge Instructions* Melly Espinal, RN - 03/10/2019 1:43 PM CDT [facility] DISCHARGE INSTRUCTIONS MEDICATIONS: [] Continue your current home medications Start: [] Notify your pharmacy for refill(s) 7 days before you are out of your medication. [] Opioid (Narcotic) Agreement signed and patient received copy. [] Side Effects of Opioid Medications given to patient Resume blood thinner: On Discontinue: PROCEDURE at today's visit: SI joint injection DIET: [x] Resume normal diet [] See [facility] Post Discharge Procedure Information Sheet ACTIVITY: [] Resume normal activity [x] See [facility] Post Discharge Procedure Information Sheet REFERRALS: Physical Therapy [] [facility] ([phone]) [] GMI (Graded Motor Imagery) [] Other: Behavior Medicine [] Pain Psychologist, [facility] Pain Psychology Please call to schedule appointment [phone] or [phone] Diagnostic Test(s): EDUCATION provided on the following: [] Spinal Cord Stimulator Education and DVD. Vendor: FOLLOW UP APPOINTMENTS: [] Return as needed [] Follow up appointment: We will contact you the next business day to obtain: [] An update on your condition [] Your Pain diary scores [x] Procedure at your next visit : Bilateral SI joint injection in 3 mos INSTRUCTIONS before your next procedure: [] See [facility] Pre-Procedure Information Sheet [] Do not eat or drink for six (6) hours before the time/date of the procedure. [] Inquire with your prescribing provider if ok to hold blood thinner for days before procedure. [] Blood work required 2 hours before procedure: [] Third Steel Pourer needed for next procedure Patient provided information and repeated back with understanding. If you need to reach us: For any questions about your procedure, please call the Pain Management Center [phone] (M-F) (8am-4pm) If you need urgent attention after 5 pm and weekends: Call the [facility] Graduate Intern at [phone] and ask for the Pain Service doctor precision inspector. [facility] C[facility] PATIENT EDUCATION POST-PROCEDURE INFORMATION [...] 4:00 p.m., you should call the hospital cnc mill and lathe operator at and ask to speak with the Pain Service doctor precision inspector. documented in this encounter Medications at Time [...] day As need for pain 90 tablet 03/04/2019 03/31/2019 lidocaine (LIDODERM) 5 % Place 1 patch on the skin daily as needed for pain 07/27/2016 08/03/2020 magnesium oxide 400 mg capsule 250 mg 3 tablets a day 04/19/2020 meloxicam (MOBIC) 15 mg tabletIndications :Osteoarthritis Take 1 tablet (15 mg total) by mouth daily. 90 tablet 3 06/18/2018 06/10/2019 omega 0-cst-ske-fish oil 1,000 mg (120 mg-180 mg) capsule Take 1 capsule by mouth every morning 09/05/2022 lulg-ietb-yrj-yuc -brm-vvwy-nvj (TUMERSAID) [phone] mg tablet daily 04/19/2020 turmeric root extract 500 mg capsuleIndication s:OTC Take 1,350 mg by mouth every morning 09/05/2022 documented as of this encounter Discharge Disposition Disposition Code Departure Means Destination Discharge to home or self care documented in this encounter Progress Notes * Nancy Fernandez MD - 03/10/2019 12:46 PM CDT Patient Name: Annette Camarena : 1960 Today's Date: 03/10/2019 PCP: Felicitas Samuel MD Referring: No ref. provider found No chief complaint on file. HPI Historical Info: ANNETTE CAMARENA is a [...] RFA debbi 2014 - sig benefit ?? INTERVAL HISTORY (03/10/2019): Annette Camarena returns to clinic today. She presents for ongoing management of pain in the neck,shoulders, low back and right hip. Recent bad fibro flare- lasted several weeks. Now getting better. Drove to and from [place], [place]. Trip was wonderful, but drive home with construction and traffic caused the fibro flare. Pain is at generalize. Radiation: none Numbness: none Weakness: none The pain is described as continuous, stabbing, gnawing, aching and tender. It rates 4-8/10 on the numeric pain scale; average 6/10. The pain increases with weather changes and cold and decreases with heat, pain meds. Her ADLs are difficult, but manageable on her own. Last visit (12/12/18) we did the following: Intervention: bilateral SI injections Medication adjustments: continue current meds for now. UDS. Referrals: physical therapy - finds it helpful, still going ([facility]) Medications: Baclofen 10mg 1-2 Tab TID PRN: Takes up to 3 per day and this gives some relief Cymbalta 90mg PO qDaily [place] 7.5mg-325mg 1 tab TID PRN: Averages 3 per day and this gives significant relief Lidocaine 5% topical patch: Not utilizing recently very much as these don't provide much benefit Meloxicam 15mg 1 tab PO qDaily Ambien 10mg PO qHS Excedrin Migraine Asking about CBD oil and cannabis as options for her pain. Physical therapy notes: still has daily LBP and pain between the shoulder blades, but it is more manageable. She has gone to 9 sessions with the plan to return to physical therapy after her trip. Current Pain meds: Pain Medications mdgopxudlnlwa-mgyycta-qitdyvxw (EXCEDRIN MIGRAINE) 250-250-65 mg per tablet daily. ARIPiprazole (ABILIFY) 5 mg tablet daily. baclofen (LIORESAL) 10 mg tablet TAKE ONE-TWO TABLETS TID PRN DULoxetine DR (CYMBALTA) 30 mg capsule DULoxetine [...] Prescriptions No medications on file Previous Medications LQBTCSXFJCGLM-VKFRCNZ-UKCNSIAI (EXCEDRIN MIGRAINE) 250-250-65 MG PER TABLET daily. [...] Provider: Joaquín Beckman MD Notes: -- OMEGA 1-UXT-KOH-FISH OIL 1,000 MG (120 MG-180 MG) CAPSULE daily Authorizing Provider: Joaquín Beckman MD Notes: -- CGZV-JKQF-VOF-PLC-JMN-BNWE-HOR (TUMERSAID) [phone] MG TABLET Take by mouth. Authorizing Provider: [...] or weight on file to calculate BMI. CONSTITUTIONAL: general appearance normal No deformities Good grooming HEENT: Normocephalic, no lesions, without obvious abnormality. No eyelid/periorbital edema, sclera normal, pupils normal RESPIRATORY: Unlabored CHEST: Symmetric MUSCULOSKELETAL EXAMINATION: gait normal MOTOR EXAMINATION: Strength is 5/5 in the legs. SENSORY EXAMINATION: 0=Normal; no sensory loss THORACIC SPINE: Paraspinal muscle tenderness. LUMBOSACRAL SPINE: Exquisite TTP over bilateral SI. Gaenslen's pos bilateral. OMA pos bilateral. LOWER EXTREMITIES: Normal range of motion. Normal muscle bulk and tone. TTP throughout. SKIN: Skin color, texture, turgor normal. No rashes or lesions NEUROLOGIC EXAM: Alert and oriented x4, non-focal PSYCHIATRIC: alert, oriented, normal behavior, normal mood and normal affect Assessment The above note documents my personal evaluation of this patient. In addition, I have reviewed and confirmed with the patient and nurse the supportive information documented in today's scanned PatientHealth Questionnaire and Office Note. Fibromyalgia Bilateral sacroilitis Low back pain Neck pain Plan 1. Interventions: SI injection today, bilateral 2. Medications: Continue current meds for now Discussed trying CBD oil. I told her it would not likely show up in her UDS and ok to try. If she does have cannabis in her UDS she will have to stop the oil or opioids. Re: cannabis, she can wean off of the opioids if she wants to try cannabis. We discussed concerns related to opioids including addiction, tolerance, dependence, hormone changes, immune function changes. Chronic Opioid Therapy (03/10/2019): Current analgesics: hydrocodone/APAP 7.5/325 TID, tumeric Daily dose (MME): 22.5mg/day Benzo: no Meds locked up: She keeps in an unmarked box in the closet and is sure to put them out of sight if anyone is coming into her home (family members, cleaning crew, etc) UDS: 12/12/18 Plan: 12/12/18 ?? Adjuvants: Duloxetine, baclofen, meloxicam 3. Imaging: No further imaging needed at this current time. 4. Referral: No referrals needed at this current time. Cont physical therapy 5. Follow-up: In 3mo for re-evaluation of the above regimen. No follow-ups on file. Nancy Fernandez MD documented in this encounter Miscellaneous Notes * Addendum Note - Nola Hein RT - 03/10/2019 11:59 PM CDTEncounter addended by: THOM Glynn on: 03/11/2019 10:29 AM Actions taken: Charge Capture section accepted * Addendum Note - Reanna Love RN - 03/10/2019 2:14 PM CDT Encounter addended by: Reanna Love RN on: 03/10/2019 2:14 PM Actions taken: Visit Navigator SmartForm Flowsheet section accepted, SmartForm saved, E-signed After Visit Summary, Flowsheet accepted * Addendum Note - Nancy Fernandez MD - 03/10/2019 1:47 PM CDTEncounter addended by: Nancy Fernandez MD on: 03/10/2019 1:47 PM Actions taken: Order Reconciliation Section accessed, Order list changed * Brief Op Note - Nancy Fernandez MD - 03/10/2019 1:26 PM CDT Surgeon: Nancy Fernandez M.D. ROCK LOADER SURGEON: None Procedure: Bilateral Sacroiliac Joint Injection Pre-procedure Diagnosis: [...] instructions were reviewed. Condition at discharge: Stable * Perioperative Nursing Note - Melly Espinal RN - 03/10/2019 1:04 PM CDT Humberto Henriquez in waiting room will drive pt home documented in this encounter Plan of Treatment [...] Diagnosis Fibromyalgia- Primary Unspecified myalgia and myositis Sacroiliitis (HCC) Sacroiliitis, not elsewhere classified Chronic bilateral low back pain without sciatica Chronic use of opiate drug for therapeutic purpose documented in this encounter Administered Medications Inactive Administered Medications - up to 3 most recent administrations Medication Order MAR Action Action Date Dose Rate Site bupivacaine (MARCAINE) 0.5 % (5 mg/mL) preservative free injection As needed, Starting on Sun03/10/19 at 1341, Intra-Op Given 03/10/2019 1:41 PM CDT 4 mL iohexol (OMNIPAQUE) 300 mg iodine/mL injection solution As needed, Starting on Sun03/10/19 at 1341, Intra-Op Given 03/10/2019 1:41 PM CDT 0.5 mL lidocaine PF (XYLOCAINE) 10 mg/mL (1 %) preservative free injection As needed, Starting on Sun03/10/19 at 1341, Intra-Op Given 03/10/2019 1:41 PM CDT 6 mL methylPREDNISolone acetate (DEPO-medrol) injection As needed, Starting on Sun03/10/19 at 1342, Intra-Op Given 03/10/2019 1:42 PM CDT 80 mg documented in this encounter Orders Medications Ordered That Thai ht Not Have Been Administered Count Last Ordered Date First Ordered Date bupivacaine (MARCAINE) 0.5 % (5 mg/mL) preservative free injection - ADS Override Pull 1 03/10/2019 lidocaine PF (XYLOCAINE) 10 mg/mL (1 %) preservative free injection - ADS Override Pull 1 03/10/2019 methylPREDNISolone acetate ( DEPO-medrol) 40 mg/mL injection - ADS Override Pull 1 03/10/2019 documented in this encounter Care Teams Line Up Machine Operator Relationship Specialty Start Date End Date Felicitas Samuel MD PCP - General 10/13/16 07/19/20 documented as of this encounter
--- OUTSIDE RECORDS SUMMARY | 2024-07-28 01:09 | XMS_ITS | Encounter Summary ---
Author Organization [facility] Healthcare Address [address] [facility] [place] [address] Care Team Providers Care Bulk Receiver Name Role Phone Felicitas Samuel MD Primary Care Provider + Reason for Visit * Reason Onset Date Comments Pre-Surgical Call 03/06/2019 Encounter Details Date Type Department Care Team (Late st Contact Info) Description 03/06/2019 Telephone [facility] [place] [facility] [address] [facility] [address] [place], [place] [phone] Nancy Fernandez MD [address] [facility] [address] [facility] [phone] [place], [place] [phone] Pre-Surgical Call Social History Tobacco Use Types Packs/Day Years Used Date Smoking Tobacco: Never Smokeless Tobacco: Never Alcohol Use Standard Drinks/Week Comments No 0 (1 standard drink = 0.6 oz pur e alcohol) Comments No Sex and Gender Information Value Date Recorded Sex Assigned at Not on file Legal Sex Female 2:03 AM VICE PRESIDENT SALES AND MARKETING Gender Identity Female 08/26/2020 6:26 AM VICE PRESIDENT SALES AND MARKETING Sexual Orientation Straight 08/26/2020 6: 26 AM VICE PRESIDENT SALES AND MARKETING documented as of this encounter Miscellaneous Notes * Telephone Encounter - Clarisa Bar RN - 03/06/2019 2:10 PM CDT Left message with pre procedure instructions. documented in this encounter Plan of Treatment Not on file documented as of this encounter Goals Goal Patient Goal Type Associated Problems Recent Progress Patient-Stated? Author CCM Chronic Pain Care Plan Chronic Care Management Improving( 10:05 AM VICE PRESIDENT SALES AND MARKETING) Bessy Gayle RN Note: Problem: Chronic Pain Goals: 1. Minimize further functional decline 2. Maximize quality of life 3. Control pain Strategies: - Activity/exercise program recommendation - Conservative stepwise pain medicine strategy with multi-disciplinary approach - Recommend healthy lifestyle strategies and compensatory methods as needed documented as of this encounter Visit Diagnoses Not on filedocumented in this encounter Care Teams Bulk Receiver Relationship Specialty Start Date End Date Felicitas Samuel MD PCP - General 10/13/16 07/19/20 documented as of this encounter
--- OUTSIDE RECORDS SUMMARY | 2024-07-28 01:09 | XMS_ITS | Encounter Summary ---
Author Organization [facility] Healthcare Address [address] [facility] [place] [address] Care Team Providers Care Grain Commodity Manager Name Role Phone Felicitas Samuel MD Primary Care Provider + Reason for Visit * Reason Onset Date Comments pre-procedure call 06/06/2019 Encounter Details Date Type Department Care Team (Late st Contact Info) Description 06/06/[address] [facility] [place] [facility] [address] [facility] [address] [place], [place] [phone] Nancy Fernandez MD [address] [facility] [address] [facility] [phone] [place], [place] [phone] pre-procedure call Social History Tobacco Use Types Packs/Day Years Used Date Smoking Tobacco: Never Smokeless Tobacco: Never Alcohol Use Standard Drinks/Week Comments No 0 (1 standard drink = 0.6 oz pur e alcohol) Comments No Sex and Gender Information Value Date Recorded Sex Assigned at Not on file Legal Sex Female 2:03 AM AUDIT DIRECTOR Gender Identity Female 08/26/2020 6:26 AM AUDIT DIRECTOR Sexual Orientation Straight 08/26/2020 6: 26 AM AUDIT DIRECTOR documented as of this encounter Miscellaneous Notes * Telephone Encounter - Corine Escobar RN - 06/06/2019 3:03 PM AUDIT DIRECTOR Left message with pre-procedure instructions; advised patient to call back re: coags, fevers, and/or antibiotics. T DIRECTOR documented in this encounter Plan of Treatment Not on file documented as of this encounter Goals Goal Patient Goal Type Associated Problems Recent Progress Patient-Stated? Author CCM Chronic Pain Care Plan Chronic Care Management Improving( 10:05 AM AUDIT DIRECTOR) No Bessy Mancuso RN Note: Problem: Chronic Pain Goals: 1. Minimize further functional decline 2. Maximize quality of life 3. Control pain Strategies: - Activity/exercise program recommendation - Conservative stepwise pain medicine strategy with multi-disciplinary approach - Recommend healthy lifestyle strategies and compensatory methods as needed documented as of this encounter Visit Diagnoses Not on filedocumented in this encounter Care Teams Grain Commodity Manager Relationship Specialty Start Date End Date Felicitas Samuel MD PCP - General 10/13/16 07/19/20 documented as of this encounter
--- OUTSIDE RECORDS SUMMARY | 2024-07-28 01:09 | XMS_ITS | Encounter Summary ---
Author Organization [facility] Healthcare Address [address] [facility] [place] [address] Care Team Providers Care Pill Machine Operator Name Role Phone Felicitas Samuel MD Primary Care Provider + Reason for Visit * Reason Comments Chronic Pain Encounter Details Date Type Department Care Team (Late st Contact Info) Description 07/31/2018 9:30 AM CURATOR OF MANUSCRIPTS Procedure visit [facility] [address] [facility] [address] [place], [place] [id number] Nancy Fernandez MD [address] [facility] [phone] [place], [place] [id number] Pain of lumbar facet joint (Primary Dx); Chronic bilateral low back pain without sciatica; Osteoarthritis of 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 Discharge [...] on file Legal Sex Female 2:03 AM CURATOR OF MANUSCRIPTS Gender Identity Female 08/26/2020 6:26 AM CURATOR OF MANUSCRIPTS Sexual Orientation Straight 08/26/2020 6: 26 AM CURATOR OF MANUSCRIPTS documented as of this encounter Last Filed Vital Signs Vital Sign Reading Time Taken Comments Blood Pressure 133/84 07/31/2018 9:15 AM CURATOR OF MANUSCRIPTS Pulse 91 07/31/2018 9:15 AM CURATOR OF MANUSCRIPTS Temperature 36.5 ??C (97.7 ??F) 07/31/2018 9:15 AM CS T Respiratory Rate 16 07/31/2018 9:15 AM CURATOR OF MANUSCRIPTS Oxygen Saturation - - Inhaled Oxygen Concentration - - Weight 65.3 kg (144 lb) 07/31/2018 9:15 AM CURATOR OF MANUSCRIPTS Height 172.7 cm (5' 8 ) 07/31/2018 9:15 AM CURATOR OF MANUSCRIPTS Body Mass Index 21.9 07/31/2018 9:15 AM CURATOR OF MANUSCRIPTS documented in this encounter Discharge Disposition Disposition Code Departure Means Destination Discharge to home or self care documented in this encounter Progress Notes * Joe Peters MD PhD - 07/31/2018 9:30 AM CST Patient Name: Katrina Camarena : 1960 Today's Date: 01/21/2018 PCP: Felicitas Samuel MD Referring: No ref. provider found Chief Complaint Patient presents with ??? Back Pain Chief Complaint ?She presents today for neck and low back pain. HPI KATRINA CAMARENA is a patient initially seen in the Pain Center in July [address] Iglesias for her ongoing muscular pain in the neck, shoulder, upper back and low back. Past meds: - nortriptyline/amitriptyline- urinary retention. - Lyrica did not work - Gabapentin caused side effects - T#3 - tramadol - cyclobenzaprine - Lidoderm - meloxicam - Savella PT: she has done a lot of PT in the past with benefit. Last 02/2016. She enjoys being active and tries to maintain a regular exercise routine. Interventions: - L4, 5, S1 RFA debbi 2014 - sig benefit Last visit 10/08/2017 Ms. Camarena returns to [...] Pain often awakens her in the night. Analgesics: Baclofen 10 mg QHS [place] 7.5/325 mg Cymbalta 60 mg qd (managed by PCP with plan to taper up). She has stopped doing yoga as it started to cause pain and she is concerned with her diagnosis of osteoporosis. She has not done PT in >1 year and does not have exercises for her upper back. She continues walking routine. INTERVAL HISTORY Today's Date: 07/31/2018 She returns to the [facility] for follow-up regarding her low back pain. Since last visit, there has been no change to her medications. We performed a bilateral L3, L4, L5, S1 medial branch block, which provided significant relief for the patient. She states that the relief lasted approximately 4-6 hours.She has had no changed to her medical history since last visit. She is endorsing right leg pain that runs down the lateral aspect of the thigh to the knee. No new allergies. She denies new onset muscle weakness, numbness, tingling, or bowel/bladder incontinence. Last visit She had a bilateral L3, L4, L5, S1 medial branch block which She reported that it helpedreduce Her pain by 80%. Review of Systems Negative except for those mentioned in the HPI Patient's Medications New Prescriptions No medications on file Previous Medications [id number] (EXCEDRIN MIGRAINE) 250-250-65 MG PER TABLET daily. [...] Provider: Joaquín Beckman MD Notes: -- OMEGA 3-QLJ-OXP-FISH OIL 1,000 MG (120 MG-180 MG) CAPSULE daily Authorizing Provider: Joaquín Beckman MD Notes: -- JJIV-HZSP-ZSQ-YDW-PHM-EXWF-HOR (TUMERSAID) [phone] MG TABLET Take by mouth. Authorizing Provider: [...] Capsule Other (See comments) Physical Exam Vitals: 07/31/18 0915 BP: 133/84 Pulse: 91 Resp: 16 Temp: 97.7 ??F (36.5 ??C) Weight: 65.3 kg (144 lb) Height: 172.7 cm (5' 8 ) Body mass index is 21.9 kg/m??. CONSTITUTIONAL: general appearance normal EYES: Normal conjunctivae/lids EARS / NOSE / MOUTH / THROAT: Hearing assessment normal. Lips, teeth and gums normal. CARDIOVASCULAR: No Lower extremity edema CHEST: Symmetric. RESPIRATORY: Normal respiratory effort MUSCULOSKELETAL EXAMINATION: Gait normal. [id number] SPINE: Mild TTP across lumbosacral spine, negative facet loading bilaterally. SLR/Jerod's sign normal. LOWER EXTREMITIES: Normal range of motion. Normal muscle strength. No tenderness. SKIN: no obvious rashes NEUROLOGIC EXAM: Cranial nerves II-XII grossly normal. Balance normal. PSYCHIATRIC: PSYCHIATRIC: Normal mood and affect. Memory intact. Alert. Speech Patterns: Normal. Assessment Lumbar Pain Plan 1. Intervention: Given the signs and symptoms of lumbar facet arthropathy, we will proceed with right RFA of L3, L4, L5, S1 medial branches injection today R/B/A discussed, including but not limited to bleeding, infection, and possible nerve injury/paralysis. Alternatives (risks) include: medication managment (dependency), no intervention (increased pain). Patient understand risks/benefits/alternatives and agrees to proceed with injection. 2. Medications: a. Opioids: The patient may continue taking the prescribed opioids by the primary care physician atthis current time. and We educated the patient about the risks of prolonged opioid use, including but not limited to, tolerance, dependence, opioid-induced hyperalgesia, immunosuppression, osteoporosis, and hormonal imbalance. b. Adjuvants: No changes to adjuvant medications at this time. 3. Imaging: No further imaging needed at this current time 4. Referral: No referrals needed at this current time. 5. Follow-up: At next scheduled appointment for left L3, L4, L5, S1 radiofrequency ablation of medical branches. Joe Peters M.D., Ph.D. Resident, Pain Management, Department of Anesthesiology [facility], [facility] 07/31/2018 9:43 AM Cosigned by Nancy Fernandez MD at 07/31/2018 1:01 PM CURATOR OF MANUSCRIPTS TOR OF MANUSCRIPTS TOR OF MANUSCRIPTS Associated attestation - Nancy Fernandez MD - 07/31/2018 1:01 PM CURATOR OF MANUSCRIPTS I have seen and examined the patient. I agree with the findings and plan of care as documented in the resident's note.. documented in this encounter Plan of Treatment Not on file documented as of this encounter Goals Goal Patient Goal Type Associated Problems Recent Progress Patient-Stated? 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
--- OUTSIDE RECORDS SUMMARY | 2024-07-28 01:09 | XMS_ITS | Encounter Summary ---
Author Organization [facility] Healthcare Address [address] [place] [address] Care Team Providers Care Carpenter'S Helper Name Role Phone Felicitas Samuel MD Primary Care Provider + Reason for Referral * Diagnostic Imaging (Routine) - Closed Specialty Diagnoses / Procedures Referred By Contac t Referred To Contact Diagnoses Pain management Procedures FL Fluoroscopy < 1 Hour (Statistical Only) Nancy Fernandez MD Phone: tel: fax: [address] [phone] Referral ID Status Reason Start Date Expiration Date Visits Re quested Visits Authorized [id number] Closed 03/10/2019 09/18/2020 1 1 Reason for Visit * Diagnostic Imaging (Routine) - Closed Specialty Diagnoses / Procedures Referred By Contac t Referred To Contact Diagnoses Pain management Procedures FL Fluoroscopy < 1 Hour (Statistical Only) Nancy Fernandez MD Phone: tel: fax: [address] [phone] Referral ID Status Reason Start Date Expiration Date Visits Re quested Visits Authorized [id number] Closed 03/10/2019 09/18/2020 1 1 Encounter Details Date Type Department Care Team (Latest Contact Info) Description 03/10/2019 7:49 AM CDT - 03/10/2019 12:45 PM CDT Hospital Encounter [facility]) [address] [place] [id number] Nancy Fernandez MD [address] [facility] [address] [facility] [phone] [place] [address] Pain management Discharge Disposition: Discharge to home or self care Social History Tobacco Use Types Packs/Day Years Used Date Smoking Tobacco: Never Smokeless Tobacco: Never Alcohol Use Standard Drinks/Week Comments No 0 (1 standard drink = 0.6 oz pur e alcohol) Comments No Sex and Gender Information Value Date Recorded Sex Assigned at Not on file Legal Sex Female 2:03 AM TREE THINNER Gender Identity Female 08/26/2020 6:26 AM TREE THINNER Sexual Orientation Straight 08/26/2020 6: 26 AM TREE THINNER documented as of this encounter Medications at [...] daily. 90 tablet 3 06/18/2018 06/10/2019 omega 8-xsz-bfc-fish oil 1,000 mg (120 mg-180 mg) capsule Take 1 capsule by mouth every morning 09/05/2022 lmem-bhnq-wyt-yuc -cek-cloh-tdd (TUMERSAID) [phone] mg tablet daily 04/19/2020 turmeric root extract [...] Plan Chronic Care Management Improving( 10:05 AM TREE THINNER) Bessy Gayle, RN Note: Problem: Chronic Pain [...] ONLY) Schedule Routine, Read Routine (OP Routine) 03/10/2019 1:50 PM CDT Pain management documented in this encounter Results * FL Fluoroscopy < 1 Hour (Statistical Only) (03/10/2019 1:50 PM CDT) Narrative [facility] - 03/10/2019 1:58 PM CDT The images from this study are not interpreted by Radiology. ??Please refer to the physician's procedure / OR operative note. us Nancy Fernandez MD IMG FLUOROSCOPY PROCEDURES Final Result [facility] documented in this encounter Visit Diagnoses Diagnosis Pain management documented in this encounter Care Teams Carpenter'S Helper Relationship Specialty Start Date End Date Felicitas Samuel MD PCP - General 10/13/16 07/19/20 documented as of this encounter
--- OUTSIDE RECORDS SUMMARY | 2024-07-28 01:09 | XMS_ITS | Encounter Summary ---
Author Organization [facility] Healthcare Address [address] [facility] [place] [address] Care Team Providers Care Industrial Gas Servicer Supervisor Name Role Phone Felicitas Samuel MD Primary Care Provider + Reason for Visit * Reason Comments Back Pain Encounter Details Date Type Department Care Team (Latest Contact Info) Description 11/19/2018 9:16 AM CDT - 11/19/2018 11:59 PM CDT Hospital Encounter [facility] [address] [facility] [address] [place] [address] Nancy Fernandez MD [address] [facility] [phone] [place] [address] Chronic bilateral low back pain without sciatica (Primary Dx); Cervicalgia; Sacroiliitis (CMS/HCC); Chronic use of opiate drug [...] file Legal Sex Female 2:03 AM SUPERVISOR URANIUM PROCESSING Gender Identity Female 08/26/2020 6:26 AM SUPERVISOR URANIUM PROCESSING Sexual Orientation Straight 08/26/2020 6: 26 AM SUPERVISOR URANIUM PROCESSING documented as of this encounter Last Filed Vital Signs Vital Sign Reading Time Taken Comments Blood Pressure 129/78 11/19/2018 9:43 AM CDT Pulse 83 11/19/2018 9:43 AM CDT Temperature 36.9 ??C (98.4 ??F) 11/19/2018 9:43 AM CD T Respiratory Rate 20 11/19/2018 9:43 AM CDT Oxygen Saturation - - Inhaled Oxygen Concentration - - Weight 67.1 kg (148 lb) 11/19/2018 9:43 AM CDT Height 172.7 cm (5' 8 ) 11/19/2018 9:43 AM CDT Body Mass Index 22.5 11/19/2018 9:43 AM CDT documented in this encounter Discharge Instructions * Patient Instructions* Fouzia Coats, RN - 11/19/2018 10:29 AM CDT MEDICATIONS: Continue current home medications with change(s) Start: Discontinue: [] Resume blood thinner: On DIET: [] Resume normal diet [] Do not eat for six (6) hours or drink for three (3) hours before your next procedure. [] No eating or drinking 2 hours after the procedure. ACTIVITY: [] Resume normal activity [] No driving for 24 hours [] May shower today [] Do not soak in water (bathtub, hot tub, pool) until tomorrow. [] No shower or bath until: [] Do no remove dressing until: REFERRALS: Physical Therapy [x] [facility] ([phone]) [] [facility] (Graded Motor Imagery) [] [facility] ([phone]) [] Other: Behavior Medicine [] Pain Psychologist, [facility]. Please call to schedule appointment ([phone] or [phone]). Diagnostic Tests: EDUCATION provided on the following: [] Information Sheet on new medication(s) given [] Notify your pharmacy for refill(s) 7 days before out of medication. [] Dosing Schedule of medication(s) [] Side Effects of Pain Medications [] Opioid (Narcotic) Agreement [] Spinal Cord Stimulator Education and DVD. Vendor: [] Procedure today: Other: FOLLOW UP APPOINTMENTS: [] Return as needed [x] Follow up appointment [x] Procedure at next visit : Sacroiliac joint injection [] Reviewed and given Pre-Procedure information sheet. [] We will contact you the next business day [] To obtain Pain diary Anticoagulation Instructions Prior to Procedure [] Stop Blood Thinner: [] Number of days to hold medication prior to procedure: [] Blood work required 2 hours before procedure (PT/INR). Patient provided information and repeated back with understanding. If you need to reach us: For any questions about your procedure, please call the Pain Management Center [phone] (M-F) (8am-4pm) If you need urgent attention after 5 pm and weekends: Call the [facility] Sprayer Operator at [phone] and ask for the Pain Service doctor concession supervisor. documented in this encounter Medications at Time [...] day As need for pain 90 tablet 11/06/2018 12/03/2018 lidocaine (LIDODERM) 5 % Place 1 patch on the skin daily as needed for pain 07/27/2016 08/03/2020 magnesium oxide 400 mg capsule 250 mg 3 tablets a day 04/19/2020 meloxicam (MOBIC) 15 mg tabletIndications :Osteoarthritis Take 1 tablet (15 mg total) by mouth daily. 90 tablet 3 06/18/2018 06/10/2019 omega 8-aif-rqg-fish oil 1,000 mg (120 mg-180 mg) capsule Take 1 capsule by mouth every morning 09/05/2022 hmeo-fsbx-mqs-yuc -udj-sznl-sgf (TUMERSAID) [phone] mg tablet daily 04/19/2020 turmeric root extract 500 mg capsuleIndication s:OTC Take 1,350 mg by mouth every morning 09/05/2022 documented as of this encounter Discharge Disposition Disposition Code Departure Means Destination Discharge to home or self care documented in this encounter Progress Notes * Elijah Wong MD - 11/19/2018 9:34 AM CDT Patient Name: Annette Camarena : 1960 Today's Date: 11/19/2018 PCP: Felicitas Samuel MD Referring: No ref. [...] S1 RFA debbi 2013 - sig benefit ?? Last visit 10/08/2017 [...] Pain often awakens her in the night. INTERVAL HISTORY (11/19/2018): Annette Camarena returns to clinic today. She presents for ongoing management of fibromyalgia withespecially painful sites of neck and bilateral low back. Pain is at low back, neck, shoulders, and diffuse myalgia Radiation: bilateral hips and posterior upper legs The pain is described as aching, penetrating, gnawing, tender, nagging, and tiring. It rates 6-8/10on the numeric pain scale; average 7/10. The pain increases with standing, sitting, cold weather, and weather changes; it decreases with heat and analgesics. Her ADLs are difficult, but manageable onher own. Last visit (08/21/18) we did the following: Intervention: RFA of medial branch nerves at left L3-S1. Patient reports significant benefit, though noticeably less than last time she had the procedure. Her pain has improved, though low back remains her worst site of pain Current Pain meds: Pain Medications kpysgozhqnhdy-nsrwfgt-wayrtqcu (EXCEDRIN MIGRAINE) 250-250-65 mg per tablet daily. [...] capsule (60 mg total) by mouth daily. Patient has mild, tolerable constipation. Baclofen provides significant benefit - she is currently using Review of Systems (ROS): As per HPI. Otherwise, all systems negative. Patient's Medications New Prescriptions No medications on file Previous Medications KODQBGTMVPWHN-FGMQWWZ-LVUCCUVP (EXCEDRIN MIGRAINE) 250-250-65 MG PER TABLET daily. [...] Provider: Joaquín Beckman MD Notes: -- OMEGA 4-VJG-KMO-FISH OIL 1,000 MG (120 MG-180 MG) CAPSULE daily Authorizing Provider: Joaquín Beckman MD Notes: -- ZIUW-VFPV-BLS-TJQ-VPE-XTLO-HOR (TUMERSAID) [phone] MG TABLET Take by mouth. Authorizing Provider: Joaquín Beckman MD Notes: -- TURMERIC ROOT EXTRACT 500 MG CAPSULE Take 1,500 mg by mouth. Authorizing Provider: Joaquín Beckman MD Notes: -- ZOLPIDEM (AMBIEN) 10 MG TABLET TAKE 1 TABLET AT BEDTIME NEEDED FOR SLEEP. Authorizing Provider: Joaquín Beckman MD Notes: -- Modified Medications No medications on file Discontinued Medications CETIRIZINE 10 MG TABLET,DISINTEGRATING daily. Authorizing Provider: Joaquín Beckman MD Notes: -- Allergies Allergen Reactions ??? Decongestant Capsule Other (See comments) Physical Exam Vitals: 11/19/18 0943 BP: 129/78 Pulse: 83 Resp: 20 Temp: 98.4 ??F (36.9 ??C) Weight: 67.1 kg (148 lb) Height: 172.7 cm (5' 8 ) Body mass index is 22.5 kg/m??. CONSTITUTIONAL:?general appearance normal EYES:?Normal conjunctivae/lids EARS / NOSE / MOUTH / THROAT: Hearing assessment normal. Lips, teeth and gums normal. CARDIOVASCULAR:??No Lower extremity edema CHEST:??Symmetric. RESPIRATORY: Normal respiratory effort MUSCULOSKELETAL EXAMINATION:?Gait normal. LUMBAR SPINE:??Mild TTP across thoracic and lumbosacral spine HIP/SI: No TTP bilateral hips. Keturah finger positive with bilateral TTP SI joints. Negative hip distraction, thigh thrust, [place] bilaterally. OMA and posterior pelvic thrust positive bilaterally. Mild TTP in bilateral SI joint (R>L), [...] low back pain without sciatica Yes ??? Cervicalgia ??? Sacroiliitis (CMS/HCC) Plan 1. Interventions: -Given signs and symptoms of bilateral sacroiliitis, we will perform bilateral SI joint injection next visit. -Can repeat lumbar medial branch RFA in the future, but this was very expensive for patient 2. Medications: ?? Opioids: Continue current dose of hydrocodone (written by Dr. Fernandez). ?? UDS next visit ?? Adjuvants: Continue current regimen. Encouraged patient to try baclofen TID PRN. (Not in an outpatient encounter) 3. Imaging: No further imaging needed at this current time. 4. Referral: We will refer the patient to physical therapy for evaluation and treatment as well as a home exercise program. 5. Follow-up: Next available for the procedure listed above. Orders Placed This Encounter Procedures ??? INJECTION/PROC - PAIN MANAGEMENT CLINIC Sacroiliac joint injection, bilateral, with fluoroscopy Standing Status: Standing Number of Occurrences: 1 ??? Ambulatory referral order to Physical Therapy - Standing Status: Future Standing Expiration Date: 05/21/2019 Referral Priority: Routine Referral Type: Consultation Referral Reason: Specialty Services Required Referral Location: External Order Requested Specialty: Physical Therapy Number of Visits Requested: 99 No follow-ups on file. Elijah Wong MD Fellow, Pain Management 11/19/18 10:34am Cosigned by Nancy Fernandez MD at 11/19/2018 10:40 AM CDT Associated attestation - Nancy Fernandez MD - 11/19/2018 10:40 AM CDT I have seen and examined the patient on 11/19/18. I agree with the findings and plan of care as documented in the resident's/fellow's note. documented in this encounter Miscellaneous Notes * Addendum Note - Sandrita Mariano - 11/19/2018 4:59 PM CDTEncounter addended by: Sandrita Mariano on: 11/19/2018 4:59 PM Actions taken: Procedure log completed documented in this encounter Plan of Treatment Not on file documented as of this encounter Goals Goal Patient Goal Type Associated Problems Recent Progress Patient-Stated? Author CCM Chronic Pain Care Plan Chronic Care Management Improving( 10:05 AM SUPERVISOR URANIUM PROCESSING) Bessy Gayle, RN Note: Problem: Chronic Pain Goals: 1. Minimize further functional decline 2. Maximize quality of life 3. Control pain Strategies: - Activity/exercise program recommendation - Conservative stepwise pain medicine strategy with multi-disciplinary approach - Recommend healthy lifestyle strategies and compensatory methods as needed documented as of this encounter Visit Diagnoses Diagnosis Chronic bilateral low back pain without sciatica- Primary Cervicalgia Sacroiliitis (HCC) Sacroiliitis, not elsewhere classified Chronic use of opiate drug for therapeutic purpose documented in this encounter Discontinued Medications Medication Sig Discontinue Reason Start Date End Da te cetirizine 10 mg tablet,disintegrating daily. Therapy completed 04/13/2017 11/20/19 19 documented as of this encounter Care Teams Industrial Gas Servicer Supervisor Relationship Specialty Start Date End Date Felicitas Samuel MD PCP - General 10/13/16 07/19/20 documented as of this encounter
--- OUTSIDE RECORDS SUMMARY | 2024-07-28 01:09 | XMS_ITS | Encounter Summary ---
Author Organization [facility] Healthcare Address [address] [place] [address] Care Team Providers Care Ui Ux Engineer Name Role Phone Felicitas Samuel MD Primary Care Provider + Reason for Visit * Reason Onset Date Comments Pre-procedure instuctions 12/10/2018 Encounter Details Date Type Department Care Team (Late st Contact Info) Description 12/10/2018 Telephone [facility] [place] [facility] [address] [facility] [address] [place] [id number] Fred Tovar MD [address] [place] [address] Pre-procedure instuctions Social History Tobacco Use Types Packs/Day Years Used Date Smoking Tobacco: Never Smokeless Tobacco: Never Alcohol Use Standard Drinks/Week Comments No 0 (1 standard drink = 0.6 oz pur e alcohol) Comments No Sex and Gender Information Value Date Recorded Sex Assigned at Not on file Legal Sex Female 2:03 AM BENCH PRECISION ASSEMBLER Gender Identity Female 08/26/2020 6:26 AM BENCH PRECISION ASSEMBLER Sexual Orientation Straight 08/26/2020 6: 26 AM BENCH PRECISION ASSEMBLER documented as of this encounter Miscellaneous Notes * Telephone Encounter - Reanna Love RN - 12/10/2018 11:11 AM CDT Pre-procedure instructions given. Patient verbalized understanding. documented in this encounter Plan of Treatment Not on file documented as of this encounter Goals Goal Patient Goal Type Associated Problems Recent Progress Patient-Stated? Author CCM Chronic Pain Care Plan Chronic Care Management Improving( 10:05 AM BENCH PRECISION ASSEMBLER) Bessy Gayle, RN Note: Problem: Chronic Pain Goals: 1. Minimize further functional decline 2. Maximize quality of life 3. Control pain Strategies: - Activity/exercise program recommendation - Conservative stepwise pain medicine strategy with multi-disciplinary approach - Recommend healthy lifestyle strategies and compensatory methods as needed documented as of this encounter Visit Diagnoses Not on filedocumented in this encounter Care Teams Ui Ux Engineer Relationship Specialty Start Date End Date Felicitas Samuel MD PCP - General 10/13/16 07/19/20 documented as of this encounter
--- OUTSIDE RECORDS SUMMARY | 2024-07-28 01:09 | XMS_ITS | Encounter Summary ---
Author Organization [facility] Healthcare Address [address] [place] [address] Care Team Providers Care Guard Driver Name Role Phone Felicitas Samuel MD Primary Care Provider + Reason for Visit * Reason Onset Date Comments Appointment 09/03/2018 Encounter Details Date Type Department Care Team (Late st Contact Info) Description 09/03/2018 Telephone [facility] [address] [facility] [address] [place], [place] [id number] Nancy Fernandez MD [address] [facility] [address] [facility] [phone] [place], [place] [phone] Appointment Social History Tobacco Use Types Packs/Day Years Used Date Smoking Tobacco: Never Smokeless Tobacco: Never Alcohol Use Standard Drinks/Week Comments No 0 (1 standard drink = 0.6 oz pur e alcohol) Comments No Sex and Gender Information Value Date Recorded Sex Assigned at Not on file Legal Sex Female 2:03 AM CLIENT SOLUTIONS DIRECTOR Gender Identity Female 08/26/2020 6:26 AM CLIENT SOLUTIONS DIRECTOR Sexual Orientation Straight 08/26/2020 6: 26 AM CLIENT SOLUTIONS DIRECTOR documented as of this encounter Miscellaneous Notes * Telephone Encounter - Letitia Flores RN - 09/03/2018 2:32 PM CLIENT SOLUTIONS DIRECTOR LM that needs to schedule fv2 in 1-2 months NT SOLUTIONS DIRECTOR documented in this encounter Plan of Treatment Not on file documented as of this encounter Goals Goal Patient Goal Type Associated Problems Recent Progress Patient-Stated? Author CCM Chronic Pain Care Plan Chronic Care Management Improving( 10:05 AM CLIENT SOLUTIONS DIRECTOR) Bessy Gayle RN Note: Problem: Chronic Pain Goals: 1. Minimize further functional decline 2. Maximize quality of life 3. Control pain Strategies: - Activity/exercise program recommendation - Conservative stepwise pain medicine strategy with multi-disciplinary approach - Recommend healthy lifestyle strategies and compensatory methods as needed documented as of this encounter Visit Diagnoses Not on filedocumented in this encounter Care Teams Guard Driver Relationship Specialty Start Date End Date Felicitas Samuel MD PCP - General 10/13/16 07/19/20 documented as of this encounter
--- OUTSIDE RECORDS SUMMARY | 2024-07-28 01:09 | XMS_ITS | Encounter Summary ---
Author Organization [facility] Healthcare Address [address] [place] [address] Care Team Providers Care Welder Production Line Combination Name Role Phone Felicitas Samuel MD Primary Care Provider + Encounter Details Date Type Department Care Team (Late st Contact Info) Description 12/25/[address] [facility] [place] [facility] [address] [facility] [address] [place] [address] Nancy Fernandez MD [address] [facility] [phone] [place] [address] Social History Tobacco Use Types Packs/Day Years Used Date Smoking Tobacco: Never Smokeless Tobacco: Never Alcohol Use Standard Drinks/Week Comments No 0 (1 standard drink = 0.6 oz pur e alcohol) Comments No Sex and Gender Information Value Date Recorded Sex Assigned at Not on file Legal Sex Female 2:03 AM WARDROBE ASSISTANT Gender Identity Female 08/26/2020 6:26 AM WARDROBE ASSISTANT Sexual Orientation Straight 08/26/2020 6: 26 AM WARDROBE ASSISTANT documented as of this encounter Miscellaneous Notes * Telephone Encounter - Slime Hansen - 12/30/2018 3:02 PM CDT MARCH 10 AT 1PM WITH Jim montague B/L SI documented in this encounter Plan of Treatment Not on file documented as of this encounter Goals Goal Patient Goal Type Associated Problems Recent Progress Patient-Stated? Author CCM Chronic Pain Care Plan Chronic Care Management Improving( 10:05 AM WARDROBE ASSISTANT) Bessy [place]le, RN Note: Problem: Chronic Pain Goals: 1. Minimize further functional decline 2. Maximize quality of life 3. Control pain Strategies: - Activity/exercise program recommendation - Conservative stepwise pain medicine strategy with multi-disciplinary approach - Recommend healthy lifestyle strategies and compensatory methods as needed documented as of this encounter Visit Diagnoses Not on filedocumented in this encounter Care Teams Welder Production Line Combination Relationship Specialty Start Date End Date Felicitas Samuel MD PCP - General 10/13/16 07/19/20 documented as of this encounter
--- OUTSIDE RECORDS SUMMARY | 2024-07-28 01:09 | XMS_ITS | Encounter Summary ---
Author Organization [facility] Healthcare Address [address] [facility] [place] [address] Care Team Providers Care Managing Consultant Name Role Phone Felicitas Samuel MD Primary Care Provider + Encounter Details Date Type Department Care Team (Late st Contact Info) Description 12/10/2018 Telephone [facility] [place] [facility] [address] [facility] [address] [place], [place] [phone] Nancy Fernandez MD [address] [facility] [phone] [place], [place] [phone] Social History Tobacco Use Types Packs/Day Years Used Date Smoking Tobacco: Never Smokeless Tobacco: Never Alcohol Use Standard Drinks/Week Comments No 0 (1 standard drink = 0.6 oz pur e alcohol) Comments No Sex and Gender Information Value Date Recorded Sex Assigned at Not on file Legal Sex Female 2:03 AM REAL ESTATE DIRECTOR Gender Identity Female 08/26/2020 6:26 AM REAL ESTATE DIRECTOR Sexual Orientation Straight 08/26/2020 6: 26 AM REAL ESTATE DIRECTOR documented as of this encounter Miscellaneous Notes * Telephone Encounter - Reanna Love RN - 12/10/2018 2:06 PM CDT complete documented in this encounter Plan of Treatment Not on file documented as of this encounter Goals Goal Patient Goal Type Associated Problems Recent Progress Patient-Stated? Author CCM Chronic Pain Care Plan Chronic Care Management Improving( 10:05 AM REAL ESTATE DIRECTOR) Bessy [place]le RN Note: Problem: Chronic Pain Goals: 1. Minimize further functional decline 2. Maximize quality of life 3. Control pain Strategies: - Activity/exercise program recommendation - Conservative stepwise pain medicine strategy with multi-disciplinary approach - Recommend healthy lifestyle strategies and compensatory methods as needed documented as of this encounter Visit Diagnoses Not on filedocumented in this encounter Care Teams Managing Consultant Relationship Specialty Start Date End Date Felicitas Samuel MD PCP - General 10/13/16 07/19/20 documented as of this encounter
--- OUTSIDE RECORDS SUMMARY | 2024-07-28 01:09 | XMS_ITS | Encounter Summary ---
Author Organization [facility] Healthcare Address [address] [facility] [place] [address] Care Team Providers Care Windows Systems Administrator Name Role Phone Felicitas Samuel MD Primary Care Provider + Encounter Details Date Type Department Care Team (Late st Contact Info) Description 07/31/2018 9:35 AM CALL CENTER MANAGER - 07/31/2018 10:05 AM CALL CENTER MANAGER Surgery [facility] [address] [facility] [address] [place] [address] Nancy Fernandez MD [address] [facility] [phone] [place], [place] [phone] R LUMBAR MEDIAL BRANCH - LAST SEEN 06-18-18 Radiofrequences Destruction Lumbo/Sacral 1 Level W Imaging [id number] Surgery Details Date/Time Status Location OR Service Patient Class Case Class Case Type Trauma Case? 07/31/2018 9:35 AM Posted [facility] Pain Management Procedure Center Procedure C Pain Management Outpatient Elective Panel 1 Procedure LRB Anes Op Region Wound Class Comments R LUMBAR MEDIAL BRANCH - LAS T SEEN 18 Radiofrequences Destruction Lumbo/Sacral 1 Level W Imaging [id number] Right Local Surgeon Surgeon Role Service Panel Nancy Fernandez MD Primary Pain Management 1 documented in this encounter Social History Tobacco Use Types Packs/Day Years Used Date Smoking Tobacco: Never Smokeless Tobacco: Never Alcohol Use Standard Drinks/Week Comments No 0 (1 standard drink = 0.6 oz pur e alcohol) Comments No Sex and Gender Information Value Date Recorded Sex Assigned at Not on file Legal Sex Female 2:03 AM CALL CENTER MANAGER Gender Identity Female 08/26/2020 6:26 AM CALL CENTER MANAGER Sexual Orientation Straight 08/26/2020 6: 26 AM CALL CENTER MANAGER documented as of this encounter Discharge Instructions * Discharge Instructions* Fouzia Coats, RUBIO - 07/31/2018 10:53 AM CALL CENTER MANAGER MEDICATIONS: Continue current home medications with change(s) Start: Discontinue: [] Resume blood thinner: On DIET: [x] Resume normal diet [x] Do not eat for six (6) hours or drink for three (3) hours before your next procedure. In 2 weeks [] No eating or drinking 2 hours after the procedure. ACTIVITY: [x] Resume normal activity [x] No driving for 24 hours [x] May shower today [x] Do not soak in water (bathtub, hot tub, pool) until tomorrow. [] No shower or bath until: [] Do no remove dressing until: REFERRALS: Physical Therapy [] [facility] ([phone]) [] [facility] (Graded [facility]agery) [] [facility] ([phone]) [] Other: Behavior Medicine [] Pain Psychologist, Pain Management Center ([phone]) Diagnostic Tests: EDUCATION provided on the following: [...] appointment [x] Procedure at next visit : repeat RFA on left side in 2 weeks [] Reviewed and given Pre-Procedure information sheet. [...] procedure, please call the Pain Management Center [phone] (M-F) (8am-4pm) If you need urgent attention after 5 pm and weekends: Call the [facility] [employer] at [phone] and ask for the Pain Service doctor section weaver. CENTER MANAGER documented in this encounter Medications at [...] TABLET DAILY.- 2000IU 04/19/[address] (CYMBALTA) 60 mg capsule Take 1 capsule (60 mg total) by mouth daily. 30 capsule 07/18/2018 08/03/2020 fexofenadine (EILEEN) 180 mg tablet Take 180 mg by mouth daily. 04/19/2020 HYDROcodone-aceta minophen (NORCO) 7.5-325 mg per tabletIndications :Pain Take 1 tablet by mouth 3 (three) times a day. As need for pain 90 tablet 07/20/2018 08/07/2018 lidocaine (LIDODERM) 5 % Place 1 patch on the skin daily as needed for pain 07/27/2016 08/03/2020 magnesium oxide 400 mg capsule 250 mg 3 tablets a day 04/19/2020 meloxicam (MOBIC) 15 mg tabletIndications :Osteoarthritis Take 1 tablet (15 mg total) by mouth daily. 90 tablet 3 06/18/2018 06/10/2019 omega 0-dgt-ykt-fish oil 1,000 mg (120 mg-180 mg) capsule Take 1 capsule by mouth every morning 09/05/2022 ggwp-fbbr-wrl-yuc -zep-efsk-tbt (TUMERSAID) [phone] mg tablet daily 04/19/2020 turmeric root extract 500 mg capsuleIndication s:OTC Take 1,350 mg by mouth every morning 09/05/2022 documented as of this encounter Discharge Disposition Disposition Code Departure Means Destination Discharge to home or self care documented in this encounter Miscellaneous Notes * Perioperative Nursing Note - Adamaris Lan RN - 07/31/2018 12:06 PM CST Gait steady. No dizziness. CENTER MANAGER * Perioperative Nursing Note - Adamaris Lan RN - 07/31/2018 11:46 AM CST Ambulated pt with assist of one. Gait slightly unsteady. Dizziness is gone. Bilateral legs with mild weakness. Will continue to observe. CENTER MANAGER * Perioperative Nursing Note - Adamaris Lan RN - 07/31/2018 11:44 AM CST 1106 Pt c/o lightheadedness with standing with VS. Assisted to BR and back. Will observe. CENTER MANAGER * Perioperative Nursing Note - Fouzia Coats RN - 07/31/2018 10:06 AM CALL CENTER MANAGER Grounding Pad applied to right posterior thigh CENTER MANAGER * Op Note - Nancy Fernandez MD - 07/31/2018 9:35 AM CST NAME OF PROCEDURE: Radiofrequency Ablation of Medial Branch Nerves (Lumbar) at right L3, L4, L5, and S1 (aborted at L5, S1- see note below) SURGEON: Nancy Fernandez M.D. EVENT LIGHTING SPECIALIST SURGEON: EVENT LIGHTING SPECIALIST SURGEON: Joe Peters M.D. PREPROCEDURAL DIAGNOSES: Other Chronic Pain Lumbar [...] aspects of the transverse process at right L3 and L4. Correct needle position was verified using oblique, [...] the lower extremity. After successful stimulation testing, bupivacaine 0.5% with 1mg dexamethasone x 2 ml was injected. Subsequently, radiofrequency neural ablation was carriedout at a lesion temperature of 80 degrees C for 90 seconds. With similar technique, needles were placed at right L5 and at the right S1 position at the sacral ala, just lateral to the anticipated position of the S1 facet articular process, at the superior border of the sacrum. Correct needle position was verified using AP and lateral fluoroscopic images. Stimulation was carried out for sensory (50 Hz) and motor (2 Hz) testing. With each stimulation testing attempts, at what was thought to be the S1 level, the patient had a motor response in the right leg. This occurred despite multiple attempts at repositioning this needle. Ultimately the decision wasmade to forgo lesioning at this level. The bupivacaine and dexamethasone solution was injected at the right L5 level. After injection of the local anesthetic, it was determined that the motor response had occurred with stimulation at L5 rather than at S1. Given that we had already given the local anesthetic we did not think we could re-test with reliable results. The decision was made to therefore forgo lesioning at both right L5 and S1 in favor of re-doing these levels on the right next week wh en she comes back to the clinic for RFA of the left. Operative Findings: The procedure was completed as planned. Complications: There were no apparent complication. Estimated Blood Loss: None Intraoperative Fluids: None Specimens: None DISPOSITION: Patient discharged home in stable condition. CENTER MANAGER * Perioperative Nursing Note - Bessy Mancuso RN - 07/31/2018 9:29 AM CALL CENTER MANAGER Fitting Room Checker - Son CENTER MANAGER documented in this encounter Plan of Treatment Not on file documented as of this encounter Goals Goal Patient Goal Type Associated Problems Recent Progress Patient-Stated? Author CCM Chronic Pain Care Plan Chronic Care Management Improving( 10:05 AM CALL CENTER MANAGER) No Bessy Mancuso, RUBIO Note: Problem: [...] SPINE NEEDLE PLACEMENT (STATISTICAL ONLY) IP Routine 07/31/2018 11:00 AM CALL CENTER MANAGER RADIOFREQUENCES DESTRUCTION LUMBO/SACRAL 1 LEVEL W IMAGING [id number] 07/31/2018 10:05 AM CALL CENTER MANAGER Lumbar facet arthropathy documented in this encounter Results * FL FLUORO GUIDANCE FOR SPINE NEEDLE PLACEMENT (Statistical Only) (07/31/2018 11:00 AM CALL CENTER MANAGER) Narrative [facility] - 07/31/2018 11:03 AM CALL CENTER MANAGER The images from this study are not interpreted by Radiology. ??Please refer to the physician's procedure / OR operative note. us Nancy Fernandez MD IMG IR PROCEDURES Final Re sult [facility] documented in this encounter Visit Diagnoses Diagnosis Lumbar facet arthropathy Spondylosis of unspecified site without mention of myelopathy documented in this encounter Administered Medications Inactive Administered Medications - up to 3 most recent administrations Medication Order MAR Action Action Date Dose Rate Site bupivacaine (MARCAINE) 0.5 % (5 mg/mL) preservative free injection As needed, Starting on Sun07/31/18 at 1042, Intra-Op Given 07/31/2018 10:42 AM CALL CENTER MANAGER 5 mL dexamethasone (DECADRON) injection Administer over 2 Minutes, As needed, Starting on Sun07/31/18 at 1041, Intra-Op Given 07/31/2018 10:41 AM CALL CENTER MANAGER 4 mg fentaNYL (SUBLIMAZE) preservative free syringe As needed, Starting on Sun07/31/18 at 1016, Intra-Op Given 07/31/2018 10:35 AM CALL CENTER MANAGER 25 mcg Left Antecubital Given 07/31/2018 10:16 AM CALL CENTER MANAGER 50 mcg L eft Antecubital ketorolac (TORADOL) injection As needed, Starting on Sun07/31/18 at 1015, Intra-Op Given 07/31/2018 10:15 AM CALL CENTER MANAGER 30 mg Left Antecubital lidocaine PF (XYLOCAINE) 10 mg/mL (1 %) preservative free injection As needed, Starting on Sun07/31/18 at 1042, Intra-Op Given 07/31/2018 10:42 AM CALL CENTER MANAGER 8 mL midazolam (VERSED) 2 mg/2 mL preservative free injection Administer over 2 Minutes, As needed, Starting on Sun07/31/18 at 1016, Intra-Op Given 07/31/2018 10:16 AM CALL CENTER MANAGER 1 mg documented in this encounter Active and Recently Administered Medications Times are shown in CALL CENTER MANAGER. PRN Medication Order 07/29/2018 07/30/2018 07/31/2018 bupivacaine (MARCAINE) 0.5 % (5 mg/mL) preservative free injection (CANCELED) As needed, Starting on Sun07/31/18 at 1042, Intra-Op 1042 (Given - Provid er: Nancy Fernandez MD) dexamethasone (DECADRON) injection (CANCELED) Administer over 2 Minutes, As needed, Starting on Sun07/31/18 at 1041, Intra-Op 1041 (Given - Provid er: Nancy Fernandez MD) fentaNYL (SUBLIMAZE) preservative free syringe (CANCELED) As needed, Starting on Sun07/31/18 at 1016, Intra-Op 1016 (Given - Provid er: Fouzia Coats RN)1035 (Given - Provider: Fouzia Coats RN) ketorolac (TORADOL) injection (CANCELED) As needed, Starting on Sun07/31/18 at 1015, Intra-Op 1015 (Given - Provid er: Fouzia Coats RN) lidocaine PF (XYLOCAINE) 10 mg/mL (1 %) preservative free injection (CANCELED) As needed, Starting on Sun07/31/18 at 1042, Intra-Op 1042 (Given - Provid er: Nancy Fernandez MD) midazolam (VERSED) 2 mg/2 mL preservative free injection (CANCELED) Administer over 2 Minutes, As needed, Starting on Sun07/31/18 at 1016, Intra-Op 1016 (Given - Provid er: Fouzia Coats RN) documented in this encounter Orders Medications Ordered That Thai ht Not Have Been Administered Count Last Ordered Date First Ordered Date bupivacaine (MARCAINE) 0.5 % (5 mg/mL) preservative free injection - ADS Override Pull 1 07/31/2018 dexamethasone (DECADRON) 4 m g/mL injection - ADS Override Pull 1 07/31/2018 fentaNYL (SUBLIMAZE) 50 mcg/ mL preservative free injection - ADS Override Pull 1 07/31/2018 ketorolac (TORADOL) 30 mg/mL (1 mL) injection - ADS Override Pull 1 07/31/2018 lidocaine PF (XYLOCAINE) 10 mg/mL (1 %) preservative free injection - ADS Override Pull 1 07/31/2018 midazolam (VERSED) 1 mg/mL i njection - ADS Override Pull 1 07/31/2018 sodium chloride 0.9% solutio n - ADS Override Pull 1 07/31/2018 documented in this encounter Care Teams Windows Systems Administrator Relationship Specialty Start Date End Date Felicitas Samuel MD PCP - General 10/13/16 07/19/20 documented as of this encounter
--- OUTSIDE RECORDS SUMMARY | 2024-07-28 01:09 | XMS_ITS | Encounter Summary ---
Author Organization [facility] Healthcare Address [address] [place] [address] Care Team Providers Care Boring Machine Operator Helper Name Role Phone Felicitas Samuel MD Primary Care Provider + Encounter Details Date Type Department Care Team (Latest Contact Info) Description 07/31/2018 9:06 AM PROCESS STEWARD - 07/31/2018 12:08 PM PROCESS STEWARD Hospital Encounter [facility] Pain Management [address] [place], [place] [id number] Nancy Fernandez MD [address] [facility] [id number] [place], [place] [id number] Discharge Disposition: Discharge to home or self care Social History Tobacco Use Types Packs/Day Years Used Date Smoking Tobacco: Never Smokeless Tobacco: Never Alcohol Use Standard Drinks/Week Comments No 0 (1 standard drink = 0.6 oz pur e alcohol) Comments No Sex and Gender Information Value Date Recorded Sex Assigned at Not on file Legal Sex Female 2:03 AM PROCESS STEWARD Gender Identity Female 08/26/2020 6:26 AM PROCESS STEWARD Sexual Orientation Straight 08/26/2020 6: 26 AM PROCESS STEWARD documented as of this encounter Last Filed Vital Signs Vital Sign Reading Time Taken Comments Blood Pressure 121/70 07/31/2018 11:42 AM PROCESS STEWARD Pulse 94 07/31/2018 11:42 AM PROCESS STEWARD Temperature - - Respiratory Rate 16 07/31/2018 11:42 AM PROCESS STEWARD Oxygen Saturation 96% 07/31/2018 11:42 AM PROCESS STEWARD Inhaled Oxygen Concentration - - Weight - - Height - - Body Mass Index - - documented in this encounter Discharge Instructions * Discharge Instructions* Fouzia Coats, RUBIO - 07/31/2018 10:53 AM PROCESS STEWARD MEDICATIONS: Continue current home medications with change(s) [...] dressing until: REFERRALS: Physical Therapy [] [facility] ([phone]) [] GMI (Graded Motor Imagery) [] [facility] ([phone]) [] Other: Behavior Medicine [] Pain Psychologist, [facility] ([phone]) Diagnostic Tests: EDUCATION provided on the following: [...] procedure, please call the Pain Management Center [phone] (M-F) (8am-4pm) If you need urgent attention after 5 pm and weekends: Call the [facility] Director Of Services at [phone] and ask for the Pain Service doctor concrete finisher apprentice. ESS STEWARD documented in this encounter Medications at Time [...] daily. 90 tablet 3 06/18/2018 06/10/2019 omega 7-bnf-jac-fish oil 1,000 mg (120 mg-180 mg) capsule Take 1 capsule by mouth every morning 09/05/2022 gksj-qiov-cfq-yuc -oaf-vzfk-ybi (TUMERSAID) [phone] mg tablet daily 04/19/2020 turmeric root extract 500 mg capsuleIndication s:OTC Take 1,350 mg by mouth every morning 09/05/2022 documented as of this encounter Discharge Disposition Disposition Code Departure Means Destination Discharge to home or self care documented in this encounter Miscellaneous Notes * Perioperative Nursing Note - Adamaris Lan RN - 07/31/2018 12:06 PM CST Gait steady. No dizziness. ESS STEWARD * Perioperative Nursing Note - Adamaris Lan RN - 07/31/2018 11:46 AM CST Ambulated pt with assist of one. Gait slightly unsteady. Dizziness is gone. Bilateral legs with mild weakness. Will continue to observe. ESS STEWARD * Perioperative Nursing Note - Adamaris Lan RN - 07/31/2018 11:44 AM CST 1106 Pt c/o lightheadedness with standing with VS. Assisted to BR and back. Will observe. ESS STEWARD * Perioperative Nursing Note - Fouzia Coats RN - 07/31/2018 10:06 AM PROCESS STEWARD Grounding Pad applied to right posterior thigh ESS STEWARD * Op Note - Nancy Fernandez MD - 07/31/2018 9:35 AM CST NAME OF PROCEDURE: Radiofrequency Ablation of Medial Branch Nerves (Lumbar) at right L3, L4, L5, and S1 (aborted at L5, S1- see note below) SURGEON: Nancy Fernandez M.D. MANAGER STATISTICAL SURGEON: MANAGER STATISTICAL SURGEON: Joe Peters M.D. PREPROCEDURAL DIAGNOSES: Other [...] anesthetic we did not think we could re- test with reliable results. The decision was made to therefore forgo lesioning at both right L5 and S1 in favor of re-doing these levels on the right next week when she comes back to the clinic for RFA of the left. Operative Findings: The procedure was completed as planned. Complications: There were no apparent complication. Estimated Blood Loss: None Intraoperative Fluids: None Specimens: None DISPOSITION: Patient discharged home in stable condition. ESS STEWARD * Perioperative Nursing Note - Bessy Mancuso RN - 07/31/2018 9:29 AM PROCESS STEWARD Retail Marketing Coordinator - Son ESS STEWARD documented in this encounter Plan of Treatment Not on file documented as of this encounter Goals Goal Patient Goal Type Associated Problems Recent Progress Patient-Stated? Author CCM Chronic Pain Care Plan Chronic Care Management Improving( 10:05 AM PROCESS STEWARD) No Bessy Mancuso RN Note: Problem: Chronic [...] (STATISTICAL ONLY) IP Routine 07/31/2018 11:00 AM PROCESS STEWARD RADIOFREQUENCES DESTRUCTION LUMBO/SACRAL 1 LEVEL W IMAGING [id number] 07/31/2018 10:05 AM PROCESS STEWARD Lumbar facet arthropathy documented in this encounter Results * FL FLUORO GUIDANCE FOR SPINE NEEDLE PLACEMENT (Statistical Only) (07/31/2018 11:00 AM PROCESS STEWARD) Narrative [facility] - 07/31/2018 11:03 AM PROCESS STEWARD The images from this study are not interpreted by Radiology. ??Please refer to the physician's procedure / OR operative note. us Nancy Fernandez MD IMG IR PROCEDURES Final Re sult [facility] documented in this encounter Visit Diagnoses Not on filedocumented in this encounter Active and Recently Administered Medications Times are shown in PROCESS STEWARD. PRN Medication Order 07/29/2018 07/30/2018 07/31/2018 bupivacaine [...] 0.5 % (5 mg/mL) preservative free injection 07/31/2018 bupivacaine (MARCAINE) 0.5 % (5 mg/mL) preservative free injection - ADS Override Pull 07/31/2018 dexamethasone (DECADRON) 4 m g/mL injection - ADS Override Pull 07/31/2018 dexamethasone (DECADRON) injection 1 2018 fentaNYL (SUBLIMAZE) 50 mcg/ mL preservative free injection - ADS Override Pull 07/31/2018 fentaNYL (SUBLIMAZE) preserv ative free syringe 07/31/2018 ketorolac (TORADOL) 30 mg/mL (1 mL) injection - ADS Override Pull 1 07/31/2018 ketorolac (TORADOL) injection 07/31/2018 lidocaine PF (XYLOCAINE) 10 mg/mL (1 %) preservative free injection 07/31/2018 lidocaine PF (XYLOCAINE) 10 mg/mL (1 %) preservative free injection - ADS Override Pull 1 07/31/2018 midazolam (VERSED) 1 mg/mL i njection - ADS Override Pull 07/31/2018 midazolam (VERSED) 2 mg/2 mL preservative free injection 1 07/31/2018 sodium chloride 0.9% solutio n - ADS Override Pull 07/31/2018 documented in this encounter Care Teams Boring Machine Operator Helper Relationship Specialty Start Date End Date Felicitas Samuel MD PCP - General 10/13/16 07/19/20 documented as of this encounter
--- OUTSIDE RECORDS SUMMARY | 2024-07-28 01:09 | XMS_ITS | Encounter Summary ---
Author Organization [facility] Healthcare Address [address] [address] Care Team Providers Care Tax Auditor Name Role Phone Felicitas Samuel MD Primary Care Provider + Reason for Visit * Reason Comments Back Pain Encounter Details Date Type Department Care Team (Latest Contact Info) Description 12/12/2018 2:08 PM CDT - 12/12/2018 2:13 PM CDT Hospital Encounter [facility] [address] [place], [place] [phone] Nancy Fernandez MD [address] [facility] [phone] [place], [place] [id number] High risk medication use (Primary Dx); Sacroiliitis (CMS/HCC) Discharge Disposition: Discharge to home or self care Social History Tobacco Use Types Packs/Day Years Used Date Smoking Tobacco: Never Smokeless Tobacco: Never Alcohol Use Standard Drinks/Week Comments No 0 (1 standard drink = 0.6 oz pur e alcohol) Comments No Sex and Gender Information Value Date Recorded Sex Assigned at Not on file Legal Sex Female 2:03 AM SAP SENIOR DEVELOPER Gender Identity Female 08/26/2020 6:26 AM SAP SENIOR DEVELOPER Sexual Orientation Straight 08/26/2020 6: 26 AM SAP SENIOR DEVELOPER documented as of this encounter Last Filed Vital Signs Vital Sign Reading Time Taken Comments Blood Pressure 137/81 12/12/2018 3:45 PM CDT Pulse 84 12/12/2018 3:45 PM CDT Temperature 37.1 ??C (98.8 ??F) 12/12/2018 2:30 PM CD T Respiratory Rate 14 12/12/2018 3:45 PM CDT Oxygen Saturation 98% 12/12/2018 3:45 PM CDT Inhaled Oxygen Concentration - - Weight 66.2 kg (146 lb) 12/12/2018 2:30 PM CDT Height 172.7 cm (5' 8 ) 12/12/2018 2:30 PM CDT Body Mass Index 22.2 12/12/2018 2:30 PM CDT documented in this encounter Discharge Instructions * Discharge Instructions* Adamaris Lan RN - 12/12/2018 3:33 PM CDT [facility] DISCHARGE INSTRUCTIONS MEDICATIONS: [x] Continue your current home medications Start: [] Notify your pharmacy for refill(s) 7 days before you are out of your medication. [] Opioid (Narcotic) Agreement signed and patient received copy. [] Side Effects of Opioid Medications given to patient Resume blood thinner: On Discontinue: PROCEDURE at today's visit: Sacroiliac Joint Injection DIET: [] Resume normal diet [] See [facility] Post Discharge Procedure Information Sheet ACTIVITY: [] Resume normal activity [] See [facility] Post Discharge Procedure Information Sheet REFERRALS: Physical Therapy [] [facility] ([phone]) [] GMI (Graded Motor Imagery) [] [facility] ([phone]) [] Other: Behavior Medicine [] Pain Psychologist, [facility] Pain Psychology Please call to schedule appointment [phone] or [phone] Diagnostic Test(s): EDUCATION provided on the following: [] Spinal Cord Stimulator Education and DVD. Vendor: FOLLOW UP APPOINTMENTS: [] Return as needed [] Follow up appointment: We will contact you the next business day to obtain: [] An update on your condition [] Your Pain diary scores [x] Procedure at your next visit : 3 months repeat procedure INSTRUCTIONS before your next procedure: [] See [facility] Pre-Procedure Information Sheet [] Do not eat for six (6) hours or drink for three (3) hours before the time/date of the procedure. [] Inquire with your prescribing provider if ok to hold blood thinner for days before procedure. [] Blood work required 2 hours before procedure: [] International Sourcing Manager needed for next procedure Patient provided information and repeated back with understanding. If you need to reach us: For any questions about your procedure, please call the Pain Management Center [phone] (M-F) (8am-4pm) If you need urgent attention after 5 pm and weekends: Call the [facility] Director/Finance at [phone] and ask for the Pain Service doctor account resolution analyst. [facility] PATIENT EDUCATION POST-PROCEDURE INFORMATION [...] 4:00 p.m., you should call the hospital welding machine operator/tender at and ask to speak with the Pain Service doctor account resolution analyst. documented in this encounter Medications at Time [...] daily. 90 tablet 3 06/18/2018 06/10/2019 omega 4-qpj-tgo-fish oil 1,000 mg (120 mg-180 mg) capsule Take 1 capsule by mouth every morning 09/05/2022 zsxy-ufiw-lhc-yuc -fhy-juqb-qya (TUMERSAID) [phone] mg tablet daily 04/19/2020 turmeric root extract 500 mg capsuleIndication s:OTC Take 1,350 mg by mouth every morning 09/05/2022 documented as of this encounter Discharge Disposition Disposition Code Departure Means Destination Discharge to home or self care documented in this encounter Progress Notes * Volodymyr Butt MD - 12/12/2018 2:08 PM CDT Patient Name: Annette Camarena : 1960 Today's Date: 12/12/2018 PCP: Felicitas Samuel MD Referring: No ref. provider found Chief Complaint Patient presents with ??? Back Pain Historical Info: ANNETTE CAMARENA is a patient [...] awakens her in the night. INTERVAL HISTORY Today 12/12/18 Annette Camarena presents to the [facility] today for continued management of her neck, shoulder and upper back and lower back pain. At that visit her low back pain was the most concerning. She was last seen in the [facility] on 11/19/18 at which time b/l SI joint injection was planned for the next visit and patient was continued on her current dose of Hydrocodone and was encouraged to take Baclofen 10mg TID PRN. She is also to receive a UDS at today's visit. Overall she reports that her pain is unchanged compared to the last visit. She states that pain is slightly worse on the right compared to the left. Worst Pain location: Low back (slightly worse on the right) Radiation of pain: Radiating into the buttocks and b/l hips Characteristic of Pain: Gnawing, Aching, Nagging Exacerbating factors: Weather changes, cold weather, Sitting for long periods of time, walking Alleviating factors: Heat Current Pain rating on the numeric pain scale: 4/10 Average Pain rating on the numeric pain scale: 5/10 Worst Pain rating on the numeric pain scale: 7/10 Least Pain rating on the numeric pain scale: 4/10 Current Therapy: Currently is not doing any formal physical therapy but has an active rx for it Home exercise plan: Is doing home exercises which she has from previous therapy sessions Medications: Baclofen 10mg 1-2 Tab TID PRN: Takes up to 3 per day and this gives some relief Cymbalta 90mg PO qDaily Carter 7.5mg-325mg 1 tab TID PRN: Averages 3 per day and this gives significant relief Lidocaine 5% topical patch: Not utilizing recently very much as these don't provide much benefit Meloxicam 15mg 1 tab PO qDaily Ambien 10mg PO qHS Current Pain meds: Pain Medications seybsfsyppywp-ngzsclv-kaakklfg (EXCEDRIN MIGRAINE) 250-250-65 mg per tablet daily. ARIPiprazole (ABILIFY) 5 mg tablet daily. baclofen (LIORESAL) 10 mg tablet TAKE ONE-TWO TABLETS TID PRN DULoxetine (CYMBALTA) [address] (CYMBALTA) 60 mg capsule Take 1 capsule (60 mg total) by mouth daily. HYDROcodone-acetaminophen (NORCO) 7.5-325 mg per tablet Take 1 tablet by mouth 3 (three) times a day As need for pain meloxicam (MOBIC) 15 mg tablet Take 1 tablet (15 mg total) by mouth daily. Review of Systems (Review of Systems Musculoskeletal: Positive for back pain and neck pain. Psychiatric/Behavioral: The patient has insomnia. All other systems reviewed and are negative. ): As per HPI. Otherwise, all systems negative. Patient's Medications New Prescriptions No medications on file Previous Medications HIGWWUXHJNSKT-GJFJGTJ-ZRTFONFF (EXCEDRIN MIGRAINE) 250-250-65 MG PER TABLET daily. [...] Provider: Joaquín Beckman MD Notes: -- OMEGA 1-XZC-IBS-FISH OIL 1,000 MG (120 MG-180 MG) CAPSULE daily Authorizing Provider: Joaquín Beckman MD Notes: -- MGDO-YIRZ-GKY-BLM-QXK-EBAO-HOR (TUMERSAID) [phone] MG TABLET Take by mouth. Authorizing Provider: [...] Capsule Other (See comments) Physical Exam Vitals: 12/12/18 1430 BP: 141/82 Pulse: 100 Resp: 22 Temp: 98.8 ??F (37.1 ??C) TempSrc: Oral Weight: 66.2 kg (146 lb) Height: 172.7 cm (5' 8 ) Body mass index is 22.2 kg/m??. CONSTITUTIONAL:?general appearance normal, good grooming, does not appear to be in acute distress EYES:?Normal conjunctivae/lids, EOMI EARS / NOSE / MOUTH / THROAT: Hearing assessment normal. Lips, teeth and gums normal, Oral mucosa is moist CARDIOVASCULAR:??No Lower extremity edema CHEST:??Symmetric. RESPIRATORY: Non-labored respirations on room air MUSCULOSKELETAL EXAMINATION:?Gait normal. LUMBAR SPINE:??Mild TTP across thoracic and lumbosacral spine HIP/SI: No TTP bilateral hips. Keutrah finger positive with bilateral TTP SI joints. OMA and posterior pelvic thrust positive bilaterally with right more painful then the left. Gaenslen's positive on the right, negative on the left. Mild TTP in bilateral SI joint (R>L) LOWER EXTREMITIES: Normal range of motion. Normal muscle strength. No tenderness.? SKIN: no obvious rashes NEUROLOGIC EXAM:?Cranial nerves II-XII grossly normal. Balance normal. PSYCHIATRIC:?Normal mood and affect. Memory intact. Alert. Speech Patterns: Normal. Assessment The above note documents my personal evaluation of this patient. In addition, I have reviewed and confirmed with the patient and nurse the supportive information documented in today's scanned PatientHealth Questionnaire and Office Note. Encounter Diagnosis Name Primary? High risk medication use Yes Other Chronic Pain Sacroiliitis Cervicalgia Plan 1. Interventions: -Given signs and symptoms of bilateral sacroiliitis, we will perform bilateral SI joint injection today 2. Medications: ?? Opioids: Continue current dose of hydrocodone (prescribed by Dr. Fernandez). UDS completed at today's visit ?? Adjuvants: Continue current regimen. 3. Imaging: No further imaging needed at this current time. 4. Referral: Patient was referred at the last visit to physical therapy for evaluation and treatment as well as a home exercise program yet reports that she lost the prescription and just found it again 3 days prior to today's appointment. She states that she will take this and start physical therapy now. 5. Follow-up: 3 Months, may call PRN Orders Placed This Encounter Procedures ??? Drug Screen, Urine without Confirmation Standing Status: Future Number of Occurrences: 1 Standing Expiration Date: 12/13/2019 ??? Drug Screen, Urine without Confirmation Standing Status: Standing Number of Occurrences: 1 Patient was seen and examined with attending physician Dr. Jim Butt MD PGY-4 Cosigned by Nancy Fernandez MD at 12/12/2018 3:20 PM CDT Associated attestation - Nancy Fernandez MD - 12/12/2018 3:20 PM CDT I have seen and examined the patient on 12/12/18. I agree with the findings and plan of care as documented in the resident's/fellow's note. * Christiana Harding, RUBIO - 12/12/2018 2:08 PM CDT 12/12/18 2:51 PM Urine Drug Screen obtained: [] [facility] lab [x] [facility] Medication/Dose/Frequency: hydrocodone 7.5 mg/acetaminophen 325 mg Date and time of Last Dose: 12/12/18 13:00 (1:00 PM) Medication/Dose/Frequency: Date and time of Last Dose: Results Reviewed by MD Consistent with prescribe analgesic for: hydrocodone Negative prescribed analgesics for: Positive for : No Results found: Plan: [x] Continue current prescribed analgesics. [] May refill prescribe analgesics will discuss positive cannabinoids at visit. [] It will be necessary for patient to either discontinue use of cannabinoids/marijuana or we will need to taper and discontinue opioids. [] Refill prescribe analgesic until next appointment date. [] Call patient to obtain an explanation for non-prescribed opioid, prescribing physician and pharmacy at which the prescription were filled. [] Must repeat UDS at next visit. [] Must repeat UDS prior to obtaining a new prescription. . [] No additional opioid to be prescribed until clarified with the Attending MD at visit. [] Tapering Dose: Cosigned by Nancy Fernandez MD at 12/20/2018 8:27 AM CDT documented in this encounter Miscellaneous Notes * Op Note - Nancy Fernandez MD - 12/12/2018 3:21 PM CDT Surgeon: Nancy Fernandez M.D. BLUEPRINTING MACHINE OPERATOR SURGEON: Volodymyr Butt M.D. Procedure: Bilateral Sacroiliac Joint Injection Pre-procedure Diagnosis: [...] were reviewed. Condition at discharge: Stable * Addendum Note - Nancy Fernandez MD - 12/12/2018 2:13 PM CDTEncounter addended by: Nancy Fernandez MD on: 12/20/2018 8:28 AM Actions taken: Sign clinical note, Cosign clinical note documented in this encounter Plan of Treatment Not on file documented as of this encounter Goals Goal Patient Goal Type Associated Problems Recent Progress Patient-Stated? Author CCM Chronic Pain Care Plan Chronic Care Management Improving( 10:05 AM SAP SENIOR DEVELOPER) Bessy Gayle, RN Note: Problem: Chronic Pain Goals: 1. Minimize further functional decline 2. Maximize quality of life 3. Control pain Strategies: - Activity/exercise program recommendation - Conservative stepwise pain medicine strategy with multi-disciplinary approach - Recommend healthy lifestyle strategies and compensatory methods as needed documented as of this encounter Visit Diagnoses Diagnosis High risk medication use- Primary Sacroiliitis (HCC) Sacroiliitis, not elsewhere classified documented in this encounter Administered Medications Inactive Administered Medications - up to 3 most recent administrations Medication Order MAR Action Action Date Dose Rate Site bupivacaine (MARCAINE) 0.5 % (5 mg/mL) preservative free injection As needed, Starting on Nola 12/12/18 at 1528, Intra-Op Given 12/12/2018 3:28 PM CDT 4 mL iohexol (OMNIPAQUE) 300 mg iodine/mL injection solution As needed, Starting on Nola 12/12/18 at 1532, Intra-Op Given 12/12/2018 3:32 PM CDT 0.5 mL lidocaine PF (XYLOCAINE) 10 mg/mL (1 %) preservative free injection As needed, Starting on Nola 12/12/18 at 1532, Intra-Op Given 12/12/2018 3:32 PM CDT 6 mL methylPREDNISolone acetate (DEPO-medrol) injection As needed, Starting on Nola 12/12/18 at 1528, Intra-Op Given 12/12/2018 3:28 PM CDT 80 mg documented in this encounter Orders Medications Ordered That Thai ht Not Have Been Administered Count Last Ordered Date First Ordered Date bupivacaine (MARCAINE) 0.5 % (5 mg/mL) preservative free injection - ADS Override Pull 2 12/12/2018 lidocaine PF (XYLOCAINE) 10 mg/mL (1 %) preservative free injection - ADS Override Pull 1 12/12/2018 methylPREDNISolone acetate ( DEPO-medrol) 40 mg/mL injection - ADS Override Pull 1 12/12/2018 methylPREDNISolone acetate ( DEPO-medrol) 80 mg/mL injection - ADS Override Pull 1 12/12/2018 documented in this encounter Care Teams Tax Auditor Relationship Specialty Start Date End Date Felicitas Samuel MD PCP - General 10/13/16 07/19/20 documented as of this encounter
--- OUTSIDE RECORDS SUMMARY | 2024-07-28 01:09 | XMS_ITS | Encounter Summary ---
Author Organization [facility] Healthcare Address [address] [place] [address] Care Team Providers Care Concrete Batch Plant Operator Name Role Phone Felicitas Samuel MD Primary Care Provider + Encounter Details Date Type Department Care Team (Late st Contact Info) Description 08/21/2018 12:05 PM PAINTING AND COATING WORKER - 08/21/2018 12:35 PM PAINTING AND COATING WORKER Surgery [facility] [address] [facility] [address] [facility] [address] [place], [place] [id number] Nancy Fernandez MD [address] [facility] [id number] [place], [place] [phone] RFA LEFT LUMBAR MEDIAL BRANCH - LAST SEEN 06-18-18 Radiofrequences Destruction Lumbo/Sacral 1 Level W Imaging [id number] Surgery Details Date/Time Status Location OR Service Patient Class Case Class Case Type Trauma Case? 08/21/2018 12:05 PM Posted [facility] Pain Management Procedure Center Procedure B Pain Management Outpatient Elective Panel 1 Procedure LRB Anes Op Region Wound Class Comments RFA LEFT LUMBAR MEDIAL BRANC H - LAST SEEN 06-18-18 Radiofrequences Destruction Lumbo/Sacral 1 Level W Imaging 70[address] Left Local Surgeon Surgeon Role Service Panel Nancy Fernandez MD Primary Pain Management 1 Case Notes Soarian shell not complete. Unable to add auth info. J.S. 08/20/2018 documented in this encounter Social History Tobacco Use Types Packs/Day Years Used Date Smoking Tobacco: Never Smokeless Tobacco: Never Alcohol Use Standard Drinks/Week Comments No 0 (1 standard drink = 0.6 oz pur e alcohol) Comments No Sex and Gender Information Value Date Recorded Sex Assigned at Not on file Legal Sex Female 2:03 AM PAINTING AND COATING WORKER Gender Identity Female 08/26/2020 6:26 AM PAINTING AND COATING WORKER Sexual Orientation Straight 08/26/2020 6: 26 AM PAINTING AND COATING WORKER documented as of this encounter Discharge Instructions * Discharge Instructions* Idania Self, RN - 08/21/2018 2:03 PM PAINTING AND COATING WORKER MEDICATIONS: Continue current home medications with change(s) [...] until: tonight REFERRALS: Physical Therapy [] [facility] ([phone]) [] [facility] (Graded Motor Imagery) [] [facility] ([phone]) [] Other: Behavior Medicine [] Pain Psychologist, [facility] ([phone]) Diagnostic Tests: EDUCATION provided on the following: [...] procedure, please call the Pain Management Center [phone] (M-F) (8am-4pm) If you need urgent attention after 5 pm and weekends: Call the [facility] Online Marketing Strategist at [phone] and ask for the Pain Service doctor promotions officer. TING AND COATING WORKER documented in this encounter Medications at [...] daily. 90 tablet 3 06/18/2018 06/10/2019 omega 7-uqm-zmq-fish oil 1,000 mg (120 mg-180 mg) capsule Take 1 capsule by mouth every morning 09/05/2022 olbw-swql-gep-yuc -naa-waag-pfh (TUMERSAID) [phone] mg tablet daily 04/19/2020 turmeric root extract 500 mg capsuleIndication s:OTC Take 1,350 mg by mouth every morning 09/05/2022 documented as of this encounter Discharge Disposition Disposition Code Departure Means Destination Discharge to home or self care documented in this encounter Miscellaneous Notes * Perioperative Nursing Note - Mahogany Marcial RN - 08/21/2018 3:01 PM PAINTING AND COATING WORKER Pt able to walk with steady gait and RN at her side. Ready for discharge. Pt son driver/merchandiser home. TING AND COATING WORKER * Perioperative Nursing Note - Mai Del Cid RN - 08/21/2018 2:35 PM PAINTING AND COATING WORKER Able to bear weight on left leg and stand. Did not attempt walking yet. TING AND COATING WORKER * Perioperative Nursing Note - Mai Del Cid RN - 08/21/2018 2:23 PM PAINTING AND COATING WORKER Difficulty bearing weight on left leg. TING AND COATING WORKER * Perioperative Nursing Note - Idania Self RN - 08/21/2018 2:07 PM PAINTING AND COATING WORKER Grounding pad removed, skin without redness or blister TING AND COATING WORKER * Perioperative Nursing Note - Idania Self RN - 08/21/2018 1:40 PM PAINTING AND COATING WORKER Grounding pad to left posterior thigh TING AND COATING WORKER * Perioperative Nursing Note - Fouzia Coats RN - 08/21/2018 12:28 PM PAINTING AND COATING WORKER Patient's son will drive patient home TING AND COATING WORKER * Op Note - Nancy Fernandez MD - 08/21/2018 12:05 PM CST NAME OF PROCEDURE: Radiofrequency Ablation of Medial Branch Nerves (Lumbar) at left L3, L4, L5, andS1 SURGEON: Nancy Fernandez M.D. ACCOUNTING OFFICER SURGEON: ACCOUNTING OFFICER SURGEON: Ventura Parada M.D. PREPROCEDURAL DIAGNOSES: Other [...] degrees C for 90 seconds at L4 andL5. Lesioning was not carried out at L3 [...] DISPOSITION: Patient discharged home in stable condition. TING AND COATING WORKER documented in this encounter Plan of Treatment Not on file documented as of this encounter Goals Goal Patient Goal Type Associated Problems Recent Progress Patient-Stated? Author CCM Chronic Pain Care Plan Chronic Care Management Improving( 10:05 AM PAINTING AND COATING WORKER) No Bessy Mancuso RN Note: Problem: Chronic [...] (STATISTICAL ONLY) IP Routine 08/21/2018 2:05 PM PAINTING AND COATING WORKER RADIOFREQUENCES DESTRUCTION LUMBO/SACRAL 1 LEVEL W IMAGING [id number] 08/21/2018 1:26 PM PAINTING AND COATING WORKER PAIN Case Notes Soarian shell not complete. Unable to add auth info. J.S. 08/20/2018 documented in this encounter Results * FL FLUORO GUIDANCE FOR SPINE NEEDLE PLACEMENT (Statistical Only) (08/21/2018 2:05 PM PAINTING AND COATING WORKER) Narrative RAD_PACS_[facility] - 08/21/2018 2:12 PM PAINTING AND COATING WORKER The images from this study are [...] MAR Action Action Date Dose Rate Site dexamethasone (DECADRON) injection Administer over 2 Minutes, As needed, Starting on Sun08/21/18 at 1334, Intra-Op Given 08/21/2018 1:34 PM PAINTING AND COATING WORKER 4 mg fentaNYL (SUBLIMAZE) preservative free syringe As needed, Starting on Sun08/21/18 at 1330, Intra-Op Given 08/21/2018 1:30 PM PAINTING AND COATING WORKER 50 mcg ketorolac (TORADOL) injection As needed, Starting on Sun08/21/18 at 1330, Intra-Op Given 08/21/2018 1:30 PM PAINTING AND COATING WORKER 30 mg lidocaine (XYLOCAINE) 20 mg/mL (2 %) preservative free injection As needed, Starting on Sun08/21/18 at 1335, Intra-Op Given 08/21/2018 1:35 PM PAINTING AND COATING WORKER 7 mL lidocaine PF (XYLOCAINE) 10 mg/mL (1 %) preservative free injection As needed, Starting on Sun08/21/18 at 1402, Intra-Op Given 08/21/2018 2:02 PM PAINTING AND COATING WORKER 5.5 mL midazolam (VERSED) 2 mg/2 mL preservative free injection Administer over 2 Minutes, As needed, Starting on Sun08/21/18 at 1335, Intra-Op Given 08/21/2018 1:35 PM PAINTING AND COATING WORKER 1 mg documented in this encounter Active and Recently Administered Medications Times are shown in PAINTING AND COATING WORKER. PRN Medication Order 08/19/2018 08/20/2018 08/21/2018 dexamethasone (DECADRON) injection (CANCELED) Administer over 2 Minutes, As needed, Starting on Sun08/21/18 at 1334, Intra-Op 1334 (Given - Provid er: Nancy Fernandez MD) fentaNYL (SUBLIMAZE) preservative free syringe (CANCELED) As needed, Starting on Sun08/21/18 at 1330, Intra-Op 1330 (Given - Provid er: Idania Self RN) ketorolac (TORADOL) injection (CANCELED) As needed, Starting on Sun08/21/18 at 1330, Intra-Op 1330 (Given - Provid er: Idania Self RN) lidocaine (XYLOCAINE) 20 mg/mL (2 %) preservative free injection (CANCELED) As needed, Starting on Sun08/21/18 at 1335, Intra-Op 1335 (Given - Provid er: Idania Self, RUBIO) lidocaine PF (XYLOCAINE) 10 mg/mL (1 %) preservative free injection (CANCELED) As needed, Starting on Sun08/21/18 at 1402, Intra-Op 1402 (Given - Provid er: Nancy Fernandez MD) midazolam (VERSED) 2 mg/2 mL preservative free injection (CANCELED) Administer over 2 Minutes, As needed, Starting on Sun08/21/18 at 1335, Intra-Op 1335 (Given - Provid er: Idania Self RN) documented in this encounter Orders Medications Ordered That Thai ht Not Have Been Administered Count Last Ordered Date First Ordered Date dexamethasone (DECADRON) 4 m g/mL injection - ADS Override Pull 1 08/21/2018 fentaNYL (SUBLIMAZE) 50 mcg/ mL preservative free injection - ADS Override Pull 1 08/21/2018 ketorolac (TORADOL) 30 mg/mL (1 mL) injection - ADS Override Pull 1 08/21/2018 lidocaine (XYLOCAINE) 20 mg/ mL (2 %) preservative free injection - ADS Override Pull 2 08/21/2018 lidocaine PF (XYLOCAINE) 10 mg/mL (1 %) preservative free injection - ADS Override Pull 1 08/21/2018 midazolam (VERSED) 1 mg/mL i njection - ADS Override Pull 1 08/21/2018 sodium chloride 0.9% solutio n - ADS Override Pull 1 08/21/2018 Discharge Count Last Ordered Date First Orde red Date DISCHARGE PATIENT 1 08/23/2018 documented in this encounter Care Teams Concrete Batch Plant Operator Relationship Specialty Start Date End Date Felicitas Samuel MD PCP - General 10/13/16 07/19/20 documented as of this encounter
--- OUTSIDE RECORDS SUMMARY | 2024-07-28 01:09 | XMS_ITS | Encounter Summary ---
Author Organization [facility] Healthcare Address [address] [place] [address] Care Team Providers Care Hat Binder Name Role Phone Felicitas Samuel MD Primary Care Provider + Encounter Details Date Type Department Care Team (Late st Contact Info) Description 07/18/2018 Orders Only [facility] [place] [address] [facility] [address] [place] [address] Paul Back MD [address] [place] [address] Social History Tobacco Use Types Packs/Day Years Used Date Smoking Tobacco: Never Smokeless Tobacco: Never Alcohol Use Standard Drinks/Week Comments No 0 (1 standard drink = 0.6 oz pur e alcohol) Comments No Sex and Gender Information Value Date Recorded Sex Assigned at Not on file Legal Sex Female 2:03 AM MERCHANT TAILOR Gender Identity Female 08/26/2020 6:26 AM MERCHANT TAILOR Sexual Orientation Straight 08/26/2020 6: 26 AM MERCHANT TAILOR documented as of this encounter Ordered Prescriptions Prescription Sig Dispense Quantity Refills Last Filled Start Date End Date DULoxetine DR (CYMBALTA) 60 mg capsule Take 1 capsule (60 mg total) by mouth daily. 30 capsule 07/18/2018 documented in this encounter Plan of Treatment Not on file documented as of this encounter Visit Diagnoses Not on filedocumented in this encounter Discontinued Medications Medication Sig Discontinue Reason Start Date End Da te DULoxetine DR (CYMBALTA) 30 mg capsule 05/29/2018 07/18/[address] (CYMBALTA) 60 mg capsule daily. Reorder 07/18/2018 documented as of this encounter Care Teams Hat Binder Relationship Specialty Start Date End Date Felicitas Samuel MD PCP - General 10/13/16 07/19/20 documented as of this encounter
--- OUTSIDE RECORDS SUMMARY | 2024-07-28 01:09 | XMS_ITS | Encounter Summary ---
Author Organization [facility] Healthcare Address [address] [place] [address] Care Team Providers Care Supervisor Shipfitters Name Role Phone Felicitas Samuel MD Primary Care Provider + Encounter Details Date Type Department Care Team (Late st Contact Info) Description 03/27/2019 Telephone [facility] [place] [facility] [address] [facility] [address] [place], [place] [phone] Nancy Fernandez MD [address] [facility] [phone] [place], [place] [phone] Social History Tobacco Use Types Packs/Day Years Used Date Smoking Tobacco: Never Smokeless Tobacco: Never Alcohol Use Standard Drinks/Week Comments No 0 (1 standard drink = 0.6 oz pur e alcohol) Comments No Sex and Gender Information Value Date Recorded Sex Assigned at Not on file Legal Sex Female 2:03 AM GEAR MILLING MACHINE SET UP OPERATOR Gender Identity Female 08/26/2020 6:26 AM GEAR MILLING MACHINE SET UP OPERATOR Sexual Orientation Straight 08/26/2020 6: 26 AM GEAR MILLING MACHINE SET UP OPERATOR documented as of this encounter Miscellaneous Notes * Telephone Encounter - Slime Hansen - 03/28/2019 1:12 PM CDT 06/10/19 12PM documented in this encounter Plan of Treatment Not on file documented as of this encounter Goals Goal Patient Goal Type Associated Problems Recent Progress Patient-Stated? Author CCM Chronic Pain Care Plan Chronic Care Management Improving( 10:05 AM GEAR MILLING MACHINE SET UP OPERATOR) Bessy Gayle RN Note: Problem: Chronic Pain Goals: 1. Minimize further functional decline 2. Maximize quality of life 3. Control pain Strategies: - Activity/exercise program recommendation - Conservative stepwise pain medicine strategy with multi-disciplinary approach - Recommend healthy lifestyle strategies and compensatory methods as needed documented as of this encounter Visit Diagnoses Not on filedocumented in this encounter Care Teams Supervisor Shipfitters Relationship Specialty Start Date End Date Felicitas Samuel MD PCP - General 10/13/16 07/19/20 documented as of this encounter
--- OUTSIDE RECORDS SUMMARY | 2024-07-28 01:10 | XMS_ITS | Encounter Summary ---
Author Organization [facility] Care Team Providers Care Senior Electrical Estimator Name Role Phone Unavailable Primary Care Provider Unavailabl e Encounter Details Date Type Department Care Team (Late st Contact Info) Description 10/05/2014 - 10/05/2014 11:59 PM CDT Hospital Encounter [facility] Miriam, Matilde Rodriguez MD [address] [place] [address] Elevation of level of transaminase and lactic acid dehydrogenase (LDH) Social History Tobacco Use Types Packs/Day Years Used Date Smoking Tobacco: Never Comments Unknown Sex and Gender Information Value Date Recorded Sex Assigned at Not on file Legal Sex Female 2:03 AM INDUSTRIAL TECH INSTRUCTOR Gender Identity Female 08/26/2020 6:26 AM INDUSTRIAL TECH INSTRUCTOR Sexual Orientation Straight 08/26/2020 6: 26 AM INDUSTRIAL TECH INSTRUCTOR documented as of this encounter Medications at Time of Discharge baclofen (LIORESAL) 10 mg tablet 20 mg 4 (four) times a day Takes 1-2 tabs QID 06/19/2007 01/04/2021 HYDROcodone-aceta minophen (NORCO) 7.5-325 mg per tabletIndications :Pain Take 1 tablet by mouth every 6 (six) hours as needed. As need for pain 08/28/2007 01/17/2018 documented as of this encounter Plan of Treatment Not on file documented as of this encounter Procedures Procedure Name Priority Date/Time Associated Diagnosis Comments DISCHARGE LABORATORY CUMULATIVE REPORT Routine 10/05/2014 5:09 PM CDT SERUM IRON Routine 10/05/2014 1:10 PM CDT documented in this encounter Results * Discharge Laboratory Cumulative Report (10/05/2014 5:09 PM CDT) 10/05/2014 5:09 PM CDT Narrative HISTORICAL RESULTS - 10/05/2014 5:09 PM CDT ? [facility] ? Department of Laboratories ? [facility] ? [place] ?[facility] [address] ?[facility]J ?Outpatient ?Physician ? Patient Name: ? KATRINA CAMARENA Med Rec Number: ?? [id number] Date of : ?1960 Gender/Age: ? Female 54 years Doctor: ? Matilde Pineda M.D. Report Date/Time: 10/05/2014 17:09 ?* Abnormal ??C Critical ??f Footnote ??^ Corrected ??L Low ??H High ?i Interp Data ??@ Reference Lab ?Chart Type: Cumulative ?HEMATOLOGY ?10/05/2014 ?13:10:00 Test ?Units ?? Reference Total Iron ??74 ?mcg/dL ??30-160 us Historical Provider LAB BLOOD ORDERABLES Leandra l Result Performing Organization Address City/[facility] Co de Phone Number HISTORICAL RESULTS * Serum iron (10/05/2014 1:10 PM CDT) Iron 74 30 - 160 mcg/dl HISTORICAL RESULTS Serum 10/05/2014 1:10 PM CDT us Matilde Pineda MD LAB BLOOD ORDERABLES Final Result HISTORICAL RESULTS documented in this encounter Visit Diagnoses Diagnosis Elevation of level of transaminase and lactic acid dehydrogenase (LDH) documented in this encounter
--- OUTSIDE RECORDS SUMMARY | 2024-07-28 01:10 | XMS_ITS | Encounter Summary ---
Author Organization [facility] Healthcare Address [address] [place] [address] Care Team Providers Care Sales And Business Development Manager Name Role Phone Felicitas Samuel MD Primary Care Provider + Encounter Details Date Type Department Care Team (Latest Contact Info) Description 07/13/2017 1:38 PM MINE SHIFTER - 07/13/2017 11:59 PM MINE SHIFTER Hospital Encounter [facility] OP INTERIM [phone] Carolina Valero, PAIRER INSPECTOR [address] [facility] [address] [place] [address] Discharge Disposition: Discharge to home or self care Social History Tobacco Use Types Packs/Day Years Used Date Smoking Tobacco: Never Comments Unknown Sex and Gender Information Value Date Recorded Sex Assigned at Not on file Legal Sex Female 2:03 AM MINE SHIFTER Gender Identity Female 08/26/2020 6:26 AM MINE SHIFTER Sexual Orientation Straight 08/26/2020 6: 26 AM MINE SHIFTER documented as of this encounter Medications at Time of Discharge montelukast (SINGULAIR) 10 mg tabletIndications :Seasonal Allergic Rhinitis Take 1 tablet (10 mg total) by mouth nightly 04/13/2017 baclofen (LIORESAL) 10 mg tablet 20 mg 4 (four) times a day Takes 1-2 tabs QID 06/19/2007 01/04/2021 cetirizine 10 mg tablet,disintegra ting daily. 04/13/2017 11/19/2018 HYDROcodone-aceta minophen (NORCO) 7.5-325 mg per tabletIndications :Pain Take 1 tablet by mouth every 6 (six) hours as needed. As need for pain 08/28/2007 01/17/2018 lidocaine (LIDODERM) 5 % Place 1 patch on the skin daily as needed for pain 07/27/2016 08/03/2020 meloxicam (MOBIC) 15 mg tablet daily. 07/13/2017 04/22/2018 documented as of this encounter Discharge Disposition Disposition Code Departure Means Destination Discharge to home or self care documented in this encounter Plan of Treatment Not on file documented as of this encounter Visit Diagnoses Not on filedocumented in this encounter Care Teams Sales And Business Development Manager Relationship Specialty Start Date End Date Felicitas Samuel MD PCP - General 10/13/16 07/19/20 documented as of this encounter
--- OUTSIDE RECORDS SUMMARY | 2024-07-28 01:10 | XMS_ITS | Encounter Summary ---
Author Organization [facility] Healthcare Address [address] [facility] [address] [place] [address] Care Team Providers Care Cable Placer Name Role Phone Felicitas Samuel MD Primary Care Provider + Reason for Referral * Diagnostic Imaging (Routine) - Closed Specialty Diagnoses / Procedures Referred By Hadley cloud Referred To Contact Diagnoses Chronic bilateral low back pain with right-sided sciatica Pain of right hip joint Pain of lumbar facet joint Procedures XR Spine Lumbar Routine W Flex Ext Carolian Valero NP Phone: tel: fax: [facility] Referral ID Status Reason Start Date Expiration Date Visits Re quested Visits Authorized [id number] Closed 04/22/2018 11/01/2019 1 1 Reason for Visit * Reason Comments Back Pain Low back pain to rig ht hip pain and generalize body ache Encounter Details Date Type Department Care Team (Late st Contact Info) Description 04/22/2018 12:30 PM CDT Office Visit [facility] [address] [facility] [address] [place], [place] [id number] Nancy Fernandez MD [address] [facility] [address] [facility] [id number] [place] [address] Carolina Valero NP [address] [place] [address] Chronic bilateral low back pain with right-sided sciatica (Primary Dx); Pain of right hip joint; Pain of lumbar facet joint Discharge Disposition: Discharge to home or self care Social History Tobacco Use Types Packs/Day Years Used Date Smoking Tobacco: Never Smokeless Tobacco: Never Comments No Sex and Gender Information Value Date Recorded Sex Assigned at Not on file Legal Sex Female 2:03 AM INSTITUTIONAL NUTRITION CONSULTANT Gender Identity Female 08/26/2020 6:26 AM INSTITUTIONAL NUTRITION CONSULTANT Sexual Orientation Straight 08/26/2020 6: 26 AM INSTITUTIONAL NUTRITION CONSULTANT documented as of this encounter Last Filed Vital Signs Vital Sign Reading Time Taken Comments Blood Pressure 122/78 04/22/2018 12:27 PM CDT Pulse 78 04/22/2018 12:27 PM CDT Temperature 36.5 ??C (97.7 ??F) 04/22/2018 12:27 PM C DT Respiratory Rate 20 04/22/2018 12:27 PM CDT Oxygen Saturation - - Inhaled Oxygen Concentration - - Weight 64.9 kg (143 lb) 04/22/2018 12:27 PM CDT Height 172.7 cm (5' 8 ) 04/22/2018 12:27 PM CDT Body Mass Index 21.74 04/22/2018 12:27 PM CDT documented in this encounter Ordered Prescriptions Prescription Sig Dispense Quantity Refills Last Filled Start Date End Date meloxicam (MOBIC) 15 mg tabletIndications: Osteoarthritis Take 1 tablet (15 mg total) by mouth daily. 90 tablet 3 04/22/2018 06/18/2018 documented in this encounter Discharge Disposition Disposition Code Departure Means Destination Discharge to home or self care documented in this encounter Progress Notes * Carolina Valero NP - 04/22/2018 12:30 PM CDT Patient Name: Katrina Camarena : 1960 Today's Date: 04/22/2018 PCP: Felicitas Samuel MD Referring: No ref. provider found Chief Complaint Patient presents with ??? Back Pain Low back pain to right hip pain and generalize body ache Pain Management History KATRINA CAMARENA is a [...] cyclobenzaprine - Lidoderm - meloxicam - Savella Cervical spine MRI - June 2008 -multilevel degenerative changes of the cervical spine associated with bulging discs from C3-4 to C6-7. There was bilateral facet hypertrophy of C3-4, C4-5, and C5-6 and foraminal stenosis mainly on the left side at C3-4, C4-5, and C5-6. There was the presence of b ilateral uncovertebral joint disease at C3-4, C4-5, C5-6, and C6-7 associated with moderate centralcanal stenosis at C4-5 and C5-6. L-spine MRI of November 2007 showed multilevel degenerative disc disease with minimal lumbar spondylosis, worse at L4-5. At L4-5 the disc was eccentric toward the left side, causing mild left neural foraminal stenosis. There was the presence of bilateral facet hypertrophy of L3-4, L4-5, and L5-S1. Pain Management Summary Chronic pain (338.29) (G89.29) Fibromyalgia (729.1) (M79.7) Lumbar facet joint pain (719.48) (M54.5) Spondylosis without myelopathy or radiculopathy, lumbar region (721.3) (M47.816). Lumbosacral degenerative disc disease. 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 Piriformis Syndrome Bilateral SI joint syndrome. Insomnia. Depression (311) (F32.9) Tension headache Generalized osteoarthritis (715.00) (M15.9) Joint pain, hip (719.45) (M25.559) Lower back pain (724.2) (M54.5) Shoulder pain (719.41) (M25.519) Procedures by Dr. Araya 09/16/07-Cervical Epidural Steroid Injection at C7T1, under Fluoroscopy. 01/15/08-Lumbar Epidural Steroid Injection at L5-S1, under fluoroscopy. 02/17/08-Lumbar Epidural Steroid Injection at L5-S1, under fluoroscopy. 08/19/08-Local Anesthetic Medial Branch Nerve Blocks to Facet Joints at Lumbar Levels, L4, L5 &S1. 08/26/08-Local Anesthetic Medial Branch Nerve Blocks to Facet Joints at Lumbar Levels, L4, L5 &S1. 09/03/08-Radiofrequency Ablation of Medial Branch Nerves (Lumbar) @ bilateral L4, L5 &S1. 03/17/09- Bilateral Sacroiliac Joint Injection, with Fluoroscopy. 04/14/14-Local Anesthetic Medial Branch Nerve Blocks to Facet Joints at Lumbar Levels, L4 L5 S1. 04/21/14-Radiofrequency Ablation of Medial Branch Nerves (Lumbar) @ L4L5S1 01/25/2017-Urine Drug screen- [employer]- consistent w/ prescribed hydrocodone/apap Today's Visit 04/22/2018 Today's note documents my personal evaluation of this patient. In addition, I have reviewed and confirmed with the patient and nurse the supportive information documented in today's scanned Patient Health Questionnaire and Office Note. Katrina Camarena [facility] for follow-up regarding worsening of her right LBP-right hip- even her left hurts Worst Pain: Right LBP/right hip Pain intensity: worst pain in last week - 8 /10; least pain - 5; current pain - 6 /10 Radiation of pain: Posterior SIJ- posterior mid thigh- no anterior pain or groin pain Associated signs/symptoms: No bowel/bladder deficits- does have irregularities - IBS. Pain awakens her at noc. Impedes her ADL's and she attempts not to sit on her right side Injection therapies: In the past 2013-mar- very beneficial w/ RFA's Exercise programs: Physical therapy - ongoing Current Analgesics: meloxicam 15 mg daily w/ food Baclofen -averages 1 at HS- 2nd sedation duloxetine 60 mg daily Hydrocodone / APAP 7.5/325 -tries to keep it at 2 but here recently 3 tabs lidocaine patches 2- to LBP magnesium 400 mg vitamin D ,vit C turmeric , ALA No OIC Past Medical Histoy Allergies Allergen Reactions ??? Decongestant Capsule Other (See comments) Current Outpatient Prescriptions on File Prior to Visit Medication Sig Dispense Refill ??? eabachyuysslc-dyrtnbt-hewswcvd (EXCEDRIN MIGRAINE) 250-250-65 mg per tablet daily. ??? alendronate (FOSAMAX) 70 mg tablet ??? ARIPiprazole (ABILIFY) 5 mg tablet daily. ??? baclofen (LIORESAL) 10 mg tablet TAKE ONE-TWO TABLETS TID PRN ??? calcium carb,glucon-vitamin D2 500 mg calcium -200 unit tablet ??? cetirizine 10 mg tablet,disintegrating daily. ??? cholecalciferol (VITAMIN D-3) 2,000 unit tablet TAKE 1 TABLET DAILY.- 2000IU ??? DULoxetine DR (CYMBALTA) 60 mg capsule daily. ??? estradiol-norethindrone (ACTIVELLA) 1-0.5 mg per tablet ??? HYDROcodone-acetaminophen (NORCO) 7.5-325 mg per tablet Take 1 tablet by mouth 3 (three) times a day. As need for pain 90 tablet 0 ??? lidocaine (LIDODERM) 5 % Use 2 to 3 patches to area of pain daily, max 12 hrs any one area of skin ??? magnesium oxide 400 mg capsule ??? montelukast (SINGULAIR) 10 mg tablet daily. ??? omega 0-ktj-iyu-fish oil 1,000 mg (120 mg-180 mg) capsule daily ??? zolpidem (AMBIEN) 10 mg tablet TAKE 1 TABLET AT BEDTIME NEEDED FOR SLEEP. ??? [DISCONTINUED] ibuprofen (ibuprofen) 200 mg tab/cap take 2 twice daily ??? [DISCONTINUED] meloxicam (MOBIC) 15 mg tablet daily. No current facility-administered medications on file prior to visit. Patient Active Problem List Diagnosis ??? Osteoarthritis of 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 ??? Shoulder pain ??? Pain of lumbar facet joint ??? Low back pain ??? Arthralgia of hip ??? High risk medication use ??? Generalized osteoarthritis ??? Fibromyalgia ??? Encounter for preventive health examination ??? Anaclitic depression ??? Osteoarthritis of cervical spine ??? Elevated liver enzymes Family History Problem Relation Age of Onset ??? Kidney disease Father Family history of kidney disease - (Added by TW Conv) ??? Stroke Father Family history of cerebrovascular accident - (Added by TW Conv) ??? Heart failure Mother Family history of congestive heart failure - (Added by TW Conv) ??? Celiac disease Son Family history of celiac disease - (Added by TW Conv) Social History Social History ??? Marital status: Spouse name: N/A ??? Number of children: N/A ??? Years of education: N/A Social History Main Topics ??? Smoking status: Never Smoker ??? Smokeless tobacco: Never Used ??? Alcohol use None ??? Drug use: Unknown ??? Sexual activity: Not Asked Other Topics Concern ??? None Social History Narrative ??? None Review of Systems Constitutional: Positive for activity change. Gastrointestinal: IBS -new diagnosis Musculoskeletal: Positive for arthralgias, back pain, myalgias and neck pain. Psychiatric/Behavioral: Positive for dysphoric mood and sleep disturbance. Objective Physical Exam Vitals: 04/22/18 1227 BP: 122/78 Pulse: 78 Resp: 20 Temp: 97.7 ??F (36.5 ??C) Weight: 64.9 kg (143 lb) Height: 172.7 cm (5' 8 ) Body mass index is 21.74 kg/m??. CONSTITUTIONAL: General appearance normal, nutrition normal & good grooming. RESPIRATORY: Normal effort. MUSCULOSKELETAL EXAMINATION: MOTOR EXAMINATION: Strength is 5/5 throughout. SENSORY EXAMINATION: Intact to gross touch to bilateral upper and lower extremities. CERVICAL SPINE: Normal Spurlings sign. Paraspinal muscle tenderness. Positive cervical facet loading bilaterally. Decreased range of motion of cervical spine. UPPER EXTREMITIES: Normal range of motion. Normal muscle strength. Normal muscle bulk and tone. LUMBOSACRAL SPINE: SLR/Patricks sign normal. Bilateral paraspinal tightness. SI tenderness bilaterally.Rt > left. Tenderness at the lumbosacral region. Positive lumbar facet right. Range of motionof lumbar spine -normal- pain with motion throughout-worse extension. SLR positive bilaterally. Hamstring tight on the left. LOWER EXTREMITIES: Normal range of motion. Normal muscle strength. Normal muscle bulk and tone. SKIN: Normal. No edema. NEUROLOGIC EXAM: Cranial nerves normal. PSYCHIATRIC: Oriented X3, memory intact, and alert. Normal mood and affect. Normal insight and judgment. Lab/Radiology/Diagnostic Review: n/a Assessment Encounter Diagnoses Name Primary? Chronic bilateral low back pain with right-sided sciatica Yes ??? Pain of right hip joint ??? Pain of lumbar facet joint Discussion: Analgesics -analgesics/ adjuvants-educated the patient about the risks of prolonged opioid use, including but not limited to,addiction, tolerance, physical dependence, opioid-induced hyperalgesia, immunosuppression, osteoporosis, and hormonal imbalance. Injection therapies - reviewed Physical therapy - reinforced importance of consistent use of therapeutic conditioning exercises , however, with pain exacerbation-she can hold on PT -and resume after interventions Surgical intervention-defer Orders: Orders Placed This Encounter ??? XR Spine Lumbar Routine W Flex Ext Standing Status: Future Standing Expiration Date: 04/22/2019 Order Specific Question: Is the patient ? Answer: No Order Specific Question: Where should this order be performed? Answer: [facility] [[id number]] ??? meloxicam (MOBIC) 15 mg tablet Sig: Take 1 tablet (15 mg total) by mouth daily. Dispense: 90 tablet Refill: 3 Plan: Analgesics - continue analgesics ?? Imaging - Radiographs- follow up lumbar radiographs- if MRI needed she will need sedation- small dose valium is what she recalls -HEP reinforced and encouraged Follow-up - Return to [facility] -3 months- Medication management - with Dr. Fernandez for repeat RFA- and as needed - Call as needed Carolina Valero [facility] documented in this encounter Plan of Treatment Not on file documented as of this encounter Results * XR Spine Lumbar Routine W Flex Ext (04/22/2018 1:59 PM CDT) Anatomical Region Laterality Modality L-spine N/A Computed Radiogr aphy 04/22/2018 2:42 PM CDT Impressions 04/22/2018 5:21 PM CDT Mild lumbar rotatory levoscoliosis with severe degenerative disc disease at L4-L5. Electronically signed by: Eddie cAuña M.D. Narrative 04/22/2018 5:21 PM CDT EXAMINATION: Lumbar spine with flexion and extension HISTORY: Scoliosis and spondylosis. FINDINGS: 6 radiographs of the lumbar spine with flexion and extension are submitted for interpretation without radiographic comparison. There is mild rotatory levoscoliosis of lumbar spine with apex at L2. Vertebral body heights are normal. ??There is severe degenerative disc disease disease at L4-L5 with mild degenerative disc disease at L3-L4. ??There is no spondylolisthesis with neutral positioning or with motion. ??There is mild lower lumbar facet osteoarthritis. ??There is no fracture. Procedure Note Eddie Acuña MD - 04/22/2018 EXAMINATION: Lumbar spine with flexion and extension HISTORY: Scoliosis and spondylosis. FINDINGS: 6 radiographs of the lumbar spine with flexion and extension are submitted for interpretation without radiographic comparison. There is mild rotatory levoscoliosis of lumbar spine with apex at L2. Vertebral body heights are normal. There is severe degenerative disc disease disease at L4-L5 with mild degenerative disc disease at L3-L4. There is no spondylolisthesis with neutral positioning or with motion. There is mild lower lumbar facet osteoarthritis. There is no fracture. IMPRESSION: Mild lumbar rotatory levoscoliosis with severe degenerative disc disease at L4-L5. Electronically signed by: Eddie Acuña M.D. Carolina Valero FOOD MANAGEMENT AIDE IMG XR PROCEDURES Final Resul t documented in this encounter Visit Diagnoses Diagnosis Chronic bilateral low back pain with right-sided sciatica- Primary Pain of right hip joint Pain of lumbar facet joint Chronic bilateral low back pain with right-sided sciatica Pain of right hip joint Pain of lumbar facet joint documented in this encounter Discontinued Medications Medication Sig Discontinue Reason Start Date End Da te meloxicam (MOBIC) 15 mg tablet daily. Reorder 07/13/2017 04/22/2018 ibuprofen (ibuprofen) 200 mg tab/cap take 2 twice daily Therapy completed 04/22/2018 documented as of this encounter Historical Medications * This list may reflect changes made after this encounter. Medication Sig Dispense Quantity Refills Last Filled Start D ate End Date brpv-dblc-kgk-yuc-wi l-alex-hor (TUMERSAID) [phone] mg tablet daily 04/19/2020 added in this encounter Care Teams Cable Placer Relationship Specialty Start Date End Date Felicitas Samuel MD PCP - General 10/13/16 07/19/20 documented as of this encounter
--- OUTSIDE RECORDS SUMMARY | 2024-07-28 01:10 | XMS_ITS | Encounter Summary ---
Author Organization [facility] Healthcare Address [address] [facility] [place] [address] Care Team Providers Care Night Warehouse Selector Name Role Phone Felicitas Samuel MD Primary Care Provider + Encounter Details Date Type Department Care Team (Late st Contact Info) Description 04/30/2018 Telephone [facility] [address] [facility] [address] [place], [place] [phone] Nancy Fernandez MD [address] [facility] [phone] [place], [place] [id number] Social History Tobacco Use Types Packs/Day Years Used Date Smoking Tobacco: Never Smokeless Tobacco: Never Comments No Sex and Gender Information Value Date Recorded Sex Assigned at Not on file Legal Sex Female 2:03 AM TALKBACK HOST Gender Identity Female 08/26/2020 6:26 AM TALKBACK HOST Sexual Orientation Straight 08/26/2020 6: 26 AM TALKBACK HOST documented as of this encounter Miscellaneous Notes * Telephone Encounter - Letitia Flores RN - 05/02/2018 10:51 AM CDT Pt notified of note from Dr Fernandez and verbalizes understanding. * Telephone Encounter - Nancy Fernandez MD - 05/02/2018 9:01 AM CDT I do not think the MRI will change our treatment plan for now. I think we should plan on LMBB. If it does not help we can repeat MRI. * Telephone Encounter - Idania Self, RUBIO - 04/30/2018 4:53 PM CDT Spoke with pt and informed that she will need to repeat the LMBB first so the 06/03/18 appointment will be changed to LMBB. Bruce aware Pt then asked if she needs a MRI. Stated Carolina said something about maybe needing it Will send back to Dr Fernandez documented in this encounter Plan of Treatment Not on file documented as of this encounter Visit Diagnoses Not on filedocumented in this encounter Care Teams Night Warehouse Selector Relationship Specialty Start Date End Date Felicitas Samuel MD PCP - General 10/13/16 07/19/20 documented as of this encounter
--- OUTSIDE RECORDS SUMMARY | 2024-07-28 01:10 | XMS_ITS | Encounter Summary ---
Author Organization [facility] Care Team Providers Care Loan Officer Name Role Phone Unavailable Primary Care Provider Unavailabl e Encounter Details Date Type Department Care Team (Late st Contact Info) Description 09/29/2013 2:48 PM CHILD CARE GROUP LEADER - 07/29/2014 11:59 PM CHILD CARE GROUP LEADER Hospital Encounter [facility] Nancy Mary MD [phone] [place] [address] Other chronic pain; Myalgia and myositis; Lumbosacral spondylosis without myelopathy; Degeneration of lumbar or lumbosacral intervertebral disc; Cervical spondylosis without myelopathy; Degeneration of cervical intervertebral disc; Pain in joint, shoulder region; Disorder of sacrum; Insomnia; Other depressive disorder Social History Tobacco Use Types Packs/Day Years Used Date Smoking Tobacco: Never Comments Unknown Sex and Gender Information Value Date Recorded Sex Assigned at Not on file Legal Sex Female 2:03 AM CHILD CARE GROUP LEADER Gender Identity Female 08/26/2020 6:26 AM CHILD CARE GROUP LEADER Sexual Orientation Straight 08/26/2020 6: 26 AM CHILD CARE GROUP LEADER documented as of this encounter Medications at [...] Procedure Name Priority Date/Time Associated Diagnosis Comments SPINAL FLUOROSCOPIC PROCEDURE Routine 04/21/2014 1:55 PM CDT SPINAL FLUOROSCOPIC PROCEDURE Routine 04/14/2014 10:11 AM CDT documented in this encounter Results * SPINAL FLUOROSCOPIC PROCEDURE (04/21/2014 1:55 PM CDT) Anatomical Region Laterality Modality N/A Radiographic Isabelle ging 04/21/2014 1:55 PM CDT Narrative 04/21/2014 2:08 PM CDT This examination was converted from a legacy system and did not match a report, either due to it being a non-reportable examination, or a duplicate entry Procedure Note ProviderJoaquín MD - 03/05/2017 This examination was converted from a [employer] system and did not match areport, either due to it being a non-reportable examination, or aduplicate entry Historical Provider MD SIEGEL XR PROCEDURES Final R esult * SPINAL FLUOROSCOPIC PROCEDURE (04/14/2014 10:11 AM CDT) Anatomical Region Laterality Modality N/A Radiographic Isabelle ging 04/14/2014 10:1 1 AM CDT Narrative 04/14/2014 10:21 AM CDT This examination was converted from a legacy system and did not match a report, either due to it being a non-reportable examination, or a duplicate entry Procedure Note ProviderJoaquín MD - 03/05/2017 This examination was converted from a legacy system and did not match areport, either due to it being a non-reportable examination, or aduplicate entry Historical Provider MD SIEGEL XR PROCEDURES Final R esult documented in this encounter Visit Diagnoses Diagnosis Other chronic pain Myalgia and myositis Unspecified myalgia and myositis Lumbosacral spondylosis without myelopathy Degeneration of lumbar or lumbosacral intervertebral disc Cervical spondylosis without myelopathy Degeneration of cervical intervertebral disc Pain in joint, shoulder region Disorder of sacrum Disorders of sacrum Insomnia Insomnia, unspecified Other depressive disorder documented in this encounter
--- OUTSIDE RECORDS SUMMARY | 2024-07-28 01:10 | XMS_ITS | Encounter Summary ---
Author Organization [facility] Healthcare Address [address] [facility] [address] [place] [address] Care Team Providers Care Group Home Manager Name Role Phone Felicitas Samuel MD Primary Care Provider + Encounter Details Date Type Department Care Team (Late st Contact Info) Description 06/18/2018 4:00 PM BUSINESS CONTINUITY STRATEGY DIRECTOR - 06/18/2018 4:35 PM BUSINESS CONTINUITY STRATEGY DIRECTOR Surgery [facility] [address] [facility] [facility] [address] [place] [address] Nancy Fernandez MD [address] [facility] [phone] [place], [place] [id number] LMBB/Injection Facet Lumbo Sacral 1 Level 46526 Surgery Details Date/Time Status Location OR Service Patient Class Case Class Case Type Trauma Case? 06/18/2018 4:00 PM Posted [facility] Pain Management Procedure Center Procedure B Pain Management Outpatient Elective Panel 1 Procedure LRB Anes Op Region Wound Class Comments LMBB/Injection Facet Lumbo S acral 1 Level 05816 N/A Local Spine Lumbar Class I - Clean Surgeon Surgeon Role Service Panel Nancy Fernandez [...] file Legal Sex Female 2:03 AM BUSINESS CONTINUITY STRATEGY DIRECTOR Gender Identity Female 08/26/2020 6:26 AM BUSINESS CONTINUITY STRATEGY DIRECTOR Sexual Orientation Straight 08/26/2020 6: 26 AM BUSINESS CONTINUITY STRATEGY DIRECTOR documented as of this encounter Last Filed Vital Signs Vital Sign Reading Time Taken Comments Blood Pressure 111/75 06/18/2018 3:27 PM BUSINESS CONTINUITY STRATEGY DIRECTOR Pulse 100 06/18/2018 3:27 PM BUSINESS CONTINUITY STRATEGY DIRECTOR Temperature - - Respiratory Rate 14 06/18/2018 3:27 PM BUSINESS CONTINUITY STRATEGY DIRECTOR Oxygen Saturation 99% 06/18/2018 3:27 PM BUSINESS CONTINUITY STRATEGY DIRECTOR Inhaled Oxygen Concentration - - Weight - - Height - - Body Mass Index - - documented in this encounter Discharge Instructions * Discharge Instructions* Christiana Harding RN - 06/18/2018 2:51 PM BUSINESS CONTINUITY STRATEGY DIRECTOR MEDICATIONS: Continue current home medications with change(s) Start: Discontinue: [] Resume blood thinner: On DIET: [x] Resume normal diet [] Do not eat [...] tomorrow. [] No shower or bath until: [x] remove dressing or bandaids today Apply ice packs 20 minutes every 1-2 hours, no heat or heating pad for 24 hours REFERRALS: Physical Therapy [] [facility] ([phone]) [] [facility]) [] [facility] ([phone]) [] Other: Behavior Medicine [] Pain Psychologist, Pain Management Center ([phone]) Diagnostic Tests: EDUCATION provided on the following: [] Information Sheet on new medication(s) given [] Notify your pharmacy for refill(s) 7 days before out of medication. [] Dosing Schedule of medication(s) [] Side Effects of Pain Medications [] Opioid (Narcotic) Agreement [] Spinal Cord Stimulator Education and DVD. Vendor: [] Procedure today: Lumbar Medial Branch Blocks Other: FOLLOW UP APPOINTMENTS: [] Return as needed [] Follow up appointment [x] Procedure at next visit : Lumbar Radiofrequency Ablation [x] Reviewed and given Pre-Procedure information sheet. [] [...] procedure, please call the Pain Management Center [phone] ([phone]) (8am-4pm) If you need urgent attention after 5 pm and weekends: Call the [facility] Cable Tester at [phone] and ask for the Pain Service doctor nutritional services cook. NESS CONTINUITY STRATEGY DIRECTOR documented in this encounter Medications at Time [...] 04/19/[address] (CYMBALTA) 30 mg capsule 05/29/2018 07/18/[address] (CYMBALTA) 60 mg capsule daily. 07/18/2018 fexofenadine (EILEEN) 180 mg tablet Take 180 mg by mouth daily. 04/19/2020 HYDROcodone-aceta minophen (NORCO) 7.5-325 mg per tabletIndications :Pain Take 1 tablet by mouth 3 (three) times a day. As need for pain 90 tablet 06/18/2018 07/12/2018 lidocaine (LIDODERM) 5 % Place 1 patch on the skin daily as needed for pain 07/27/2016 08/03/2020 magnesium oxide 400 mg capsule 250 mg 3 tablets a day 04/19/2020 meloxicam (MOBIC) 15 mg tabletIndications :Osteoarthritis Take 1 tablet (15 mg total) by mouth daily. 90 tablet 3 06/18/2018 06/10/2019 omega 8-rmi-ogg-fish oil 1,000 mg (120 mg-180 mg) capsule Take 1 capsule by mouth every morning 09/05/2022 dwbl-pwps-eux-yuc -myc-bqgl-iup (TUMERSAID) [phone] mg tablet daily 04/19/2020 turmeric root extract 500 mg capsuleIndication s:OTC Take 1,350 mg by mouth every morning 09/05/2022 documented as of this encounter Discharge Disposition Disposition Code Departure Means Destination Discharge to home or self care documented in this encounter H&P Notes * Nancy Fernandez MD - 06/18/2018 2:51 PM CST I have reviewed the H&P, examined the patient, and endorse the findings as written. Plan of Care : Based on the above findings, I consider Katrina Camarena to be an acceptable risk for : Procedure(s): LMBB/Injection Facet Lumbo Sacral 1 Level 58432 Last LMBB helped significantly. Pain returned to baseline after local anesthetic wore off. Back pain is axial. No radiation with the exception of occasional left anterolateral thigh pain, which she thinks is due a natural tendency to internally rotate her left leg. Needs refills on meloxicam and hydrocodone. NESS CONTINUITY STRATEGY DIRECTOR Source Note - Wojciech Maldonado MD - 06/03/2018 2:00 PM BUSINESS CONTINUITY STRATEGY DIRECTOR Patient Name: Katrina Camarena : 1960 Today's [...] S1 RFA debbi 2013 - sig benefit Last visit 10/08/2017 Ms. [...] the night. Analgesics: Baclofen 10 mg QHS [place] 7.5/325 mg Cymbalta 60 mg qd (managed by PCP with plan to taper up). She has stopped doing yoga as it started to cause pain and she is concerned with her diagnosis of osteoporosis. She has not done PT in >1 year and does not have exercises for her upper back. She continues walking routine. TODAY 06/03/18 Patient presents for a follow up today regarding her lower back. She has had a previous lumbar RF which provided 3-4 years of significant pain relief. Her pain is across her low back with pain into her R hip and groin and occasionally to her L thigh with no pain extending past her knees. The pain is described as aching, nagging, tiring. The pain is worse in the morning, temperature changes, cold and better with heat, medications. Her pain is rated as a 7/10 and ranges from 6-9/10. She has triedPT but has had to stop due to the pain. She denies any numbness, tingling, weakness, bowel/bladder incontinence. Review of Systems Negative except for those mentioned in the HPI Patient's Medications New Prescriptions No medications on file Previous Medications XIBDTOMHOWQXT-TAORLVY-OBHIVBRY (EXCEDRIN MIGRAINE) 250-250-65 MG PER TABLET daily. [...] -- DULOXETINE DR (CYMBALTA) 60 MG CAPSULE daily. Authorizing Provider: Joaquín Beckman MD Notes: [...] mg total) by mouth daily. Authorizing Provider: Carolina Valero NP Notes: -- MONTELUKAST (SINGULAIR) 10 MG TABLET daily. Authorizing Provider: Joaquín Beckman MD Notes: -- OMEGA 4-ZRH-QXD-FISH OIL 1,000 MG (120 MG-180 MG) CAPSULE daily Authorizing Provider: Joaquín Beckman MD Notes: -- WWCE-TUNG-LYK-MWL-ZBS-FJWW-HOR (TUMERSAID) [phone] MG TABLET Take by mouth. Authorizing Provider: [...] Capsule Other (See comments) Physical Exam Vitals: 06/03/18 1339 BP: 132/87 Pulse: 100 Resp: 16 Temp: 98.5 ??F (36.9 ??C) Weight: 65.7 kg (144 lb 14.4 oz) Height: 172.7 cm (5' 8 ) Body mass index is 22.03 kg/m??. CONSTITUTIONAL: general appearance normal EYES: Normal conjunctivae/lids EARS / NOSE / MOUTH / THROAT: Hearing assessment normal. Lips, teeth and gums normal. CARDIOVASCULAR: No Lower extremity edema CHEST: Symmetric. RESPIRATORY: Normal respiratory effort MUSCULOSKELETAL EXAMINATION: Gait normal. [id number] SPINE: Mild TTP across lumbosacral spine, negative [...] of 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 Yes ??? Pain of lumbar facet joint ??? Chronic bilateral low back pain without sciatica Plan 1. Interventions: Given signs and symptoms of lumbar spondylosis with low back pain, will proceed with LMBB #1 at B L3, L4, L5, S1. 2. Medications: ?? Opioids: The patient may continue taking opioids prescribed by the primary care physician at this current time. We educated the patient on the risks of prolonged opioid use including but not limited to, tolerance, dependence, opioid induced hyperalgesia, immunosuppression, osteoporosis, and hormonal imbalance. We will continue her Hydrocodone to 3 time a day for now with aim of going back to 2times a day once things settle down in her personal life. She asked about potentially increasing the dose but we told her we would hold off for now and proceed with these intervention with goal of decreasing these medications. ?? Adjuvants: Continue baclofen, Cymbalta and lidoderm patches 3. Imaging: No further imaging needed at this current time. 4. Referral: No referrals needed at this current time. 5. Follow-up: At next available for LMBB#2 if she has significant relief as demonstrated on her follow-up pain diary phone call. Wojciech Maldonado M.D. Fellow, Pain Management, Department of Anesthesiology [facility] 06/03/2018 3:54 PM Cosigned by Nancy Fernandez MD at 06/03/2018 4:42 PM BUSINESS CONTINUITY STRATEGY DIRECTOR NESS CONTINUITY STRATEGY DIRECTOR NESS CONTINUITY STRATEGY DIRECTOR documented in this encounter Miscellaneous Notes * Perioperative Nursing Note - Christiana Harding, RN - 06/18/2018 3:04 PM BUSINESS CONTINUITY STRATEGY DIRECTOR Imposer home, son Roberto Carlos, post procedure NESS CONTINUITY STRATEGY DIRECTOR * Op Note - Nancy Fernandez MD - 06/18/2018 2:54 PM CST SURGEON: Nancy Fernandez M.D. STATISTICAL CLERK SURGEON: STATISTICAL CLERK SURGEON: None NAME OF PROCEDURE: Local Anesthetic Medial Branch Nerve Blocks to Facet Joints at Lumbar Levels, Bilateral L3, L4, L5, and S1. PREPROCEDURAL DIAGNOSES: Other Chronic Pain Lumbago Lumbosacral Spondylosis Without Myelopathy Lumbar facet arthropathy POSTPROCEDURAL DIAGNOSES: Other Chronic Pain Lumbago Lumbosacral Spondylosis Without Myelopathy Lumbar facet arthropathy INDICATION FOR PROCEDURE: Axial low back pain PROCEDURE: After reviewing the procedure with the patient, informed consent to proceed with the injection was obtained. A procedure permit was signed. The patient was placed on the fluoroscopy table in the prone position. Fluoroscopy was used to markthe needle entry points for medial branch nerve blocks. The lumbar area was prepped with chlorhexadine solution and draped with sterile towels. Sterile technique was used throughout. The needle entrypoints for medial branch blocks at bilateral L3, L4, L5 and S1 was infiltrated with 1% lidocaine. 22-gauge spinal needles were advanced to the periosteum at the junction of the superior articular process, pedicle, and transverse process at bilateral L3, L4, and L5. This was visualized in an AP view. 22-gauge spinal needles were advanced to the periosteum at the sacral ala, just lateral to the articular processes bilaterally. This was visualized in an AP view. With the needle in the correct position at each level, 0.5 ml. of 0.5% bupivacaine was injected. In this manner, the procedure was performed at L3, L4, L5, and the top of the sacrum, bilaterally. Operative Findings: The procedure was completed as planned. Complications: There were no apparent complication. Estimated Blood Loss: None Intraoperative Fluids: None Specimens: None Dr. Fernandez was present for, and participated in, the entire procedure. DISPOSITION: Patient discharged home in stable condition. NESS CONTINUITY STRATEGY DIRECTOR * Perioperative Nursing Note - Adamaris Lan RN - 06/18/2018 2:39 PM BUSINESS CONTINUITY STRATEGY DIRECTOR Son in waiting room to drive pt home after procedure. NESS CONTINUITY STRATEGY DIRECTOR documented in this encounter Plan of Treatment Not on file documented as of this encounter Procedures Procedure Name Priority Date/Time Associated Diagnosis Comments IR DISC ASPIRATION IP Routine 06/18/2018 3: 15 PM BUSINESS CONTINUITY STRATEGY DIRECTOR INJECTION PARABERTEBRAL FACET LUMBAR/SACRAL 1 LEVEL 06/18/2018 2:54 PM BUSINESS CONTINUITY STRATEGY DIRECTOR Lumbar facet arthropathy documented in this encounter Results * IR Fluoro Guidance for Spine Needle Placement (06/18/2018 3:15 PM BUSINESS CONTINUITY STRATEGY DIRECTOR) Narrative [facility] - 06/18/2018 3:18 PM BUSINESS CONTINUITY STRATEGY DIRECTOR The images from this study are not [...] Site bupivacaine (MARCAINE) 0.5 % (5 mg/mL) injection As needed, Starting on 06/18/18 at 1506, Intra-Op Given 06/18/2018 3:06 PM BUSINESS CONTINUITY STRATEGY DIRECTOR 8 mL lidocaine (XYLOCAINE) 10 mg/mL (1 %) injection As needed, Starting on 06/18/18 at 1506, Intra-Op, Indications: Administration of Local AnesthesiaIndications:Administratio n of Local Anesthesia Given 06/18/2018 3:06 PM BUSINESS CONTINUITY STRATEGY DIRECTOR 10 mL documented in this encounter Active and Recently Administered Medications Times are shown in BUSINESS CONTINUITY STRATEGY DIRECTOR. PRN Medication Order 06/16/2018 06/17/2018 06/18/2018 bupivacaine (MARCAINE) 0.5 % (5 mg/mL) injection (CANCELED) As needed, Starting on 06/18/18 at 1506, Intra-Op 1506 (Given - Provid er: Nancy Fernandez MD) lidocaine (XYLOCAINE) 10 mg/mL (1 %) injection (CANCELED) As needed, Starting on Sun06/18/18 at 1506, Intra-Op, Indications: Administration of Local Anesthesia 1506 (Given - Provid er: Nancy Fernandez MD) documented in this encounter Care Teams Group Home Manager Relationship Specialty Start Date End Date Felicitas Samuel MD PCP - General 10/13/16 07/19/20 documented as of this encounter
--- OUTSIDE RECORDS SUMMARY | 2024-07-28 01:10 | XMS_ITS | Encounter Summary ---
Author Organization [facility] Healthcare Address [address] [place] [address] Care Team Providers Care Multiple Launch Rocket System Crewmember Name Role Phone Felicitas Samuel MD Primary Care Provider + Reanna Polanco RN [facility] Rohan Salvador MD Primary Care Provider Peyman Ortega MD Primary Care Provider Reason for Visit * Reason Onset Date Comments CALL BACK 03/21/2018 Encounter Details Date Type Department Care Team (Late st Contact Info) Description 03/21/2018 Telephone [facility] [address] [facility] [address] [place] [address] Nancy Fernandez MD [address] [facility] [phone] [place] [address] CALL BACK Social History Tobacco Use Types Packs/Day Years Used Date Smoking Tobacco: Never Smokeless Tobacco: Never Comments Unknown Sex and Gender Information Value Date Recorded Sex Assigned at Not on file Legal Sex Female 2:03 AM RUBBER AND PLASTICS WORKER Gender Identity Female 08/26/2020 6:26 AM RUBBER AND PLASTICS WORKER Sexual Orientation Straight 08/26/2020 6: 26 AM RUBBER AND PLASTICS WORKER documented as of this encounter Plan of Treatment Not on file documented as of this encounter Visit Diagnoses Not on filedocumented in this encounter Care Teams Multiple Launch Rocket System Crewmember Relationship Specialty Start Date End Date Felicitas Samuel MD PCP - General 10/13/16 07/19/20 Rohan Rothman MD [address] [place] [address] PCP - General 07/20/20 05/12/24 Peyman Ortega MD [address] [facility] [address] [place] [address] PCP - General Family Practice 05/13/24 Reanna Polanco, RN Registered Nurse 07/07/19 documented as of this encounter
--- OUTSIDE RECORDS SUMMARY | 2024-07-28 01:10 | XMS_ITS | Encounter Summary ---
Author Organization [facility] Healthcare Address [address] [place] [address] Care Team Providers Care It Lead Name Role Phone Felicitas Samuel MD Primary Care Provider + Encounter Details Date Type Department Care Team (Latest Contact Info) Description 04/13/2017 1:41 PM CDT - 04/13/2017 11:59 PM T Hospital Encounter [facility] OP INTERIM [phone] Carolina Valero, CIGAR SORTER [address] [facility] [address] [place] [address] Discharge Disposition: Discharge to home or self care Social History Tobacco Use Types Packs/Day Years Used Date Smoking Tobacco: Never Comments Unknown Sex and Gender Information Value Date Recorded Sex Assigned at Not on file Legal Sex Female 2:03 AM SOLDERER DIPPER Gender Identity Female 08/26/2020 6:26 AM SOLDERER DIPPER Sexual Orientation Straight 08/26/2020 6: 26 AM SOLDERER DIPPER documented as of this encounter Medications at [...] daily as needed for pain 07/27/2016 08/03/2020 documented as of this encounter Discharge Disposition Disposition Code Departure Means Destination Discharge to home or self care documented in this encounter Plan of Treatment Not on file documented as of this encounter Visit Diagnoses Not on filedocumented in this encounter Care Teams It Lead Relationship Specialty Start Date End Date Felicitas Samuel MD PCP - General 10/13/16 07/19/20 documented as of this encounter
--- OUTSIDE RECORDS SUMMARY | 2024-07-28 01:10 | XMS_ITS | Encounter Summary ---
Author Organization [facility] Healthcare Address [address] [place] [address] Care Team Providers Care Air Tank Assembler Name Role Phone Felicitas Samuel MD Primary Care Provider + Encounter Details Date Type Department Care Team (Late st Contact Info) Description 06/19/2018 Telephone [facility] [place] [facility] [address] [facility] [address] [place], [place] [id number] Nancy Fernandez MD [address] [facility] [phone] [place], [place] [id number] Social History Tobacco Use Types Packs/Day Years Used Date Smoking Tobacco: Never Smokeless Tobacco: Never Alcohol Use Standard Drinks/Week Comments No 0 (1 standard drink = 0.6 oz pur e alcohol) Comments No Sex and Gender Information Value Date Recorded Sex Assigned at Not on file Legal Sex Female 2:03 AM TURNAROUND PLANNER Gender Identity Female 08/26/2020 6:26 AM TURNAROUND PLANNER Sexual Orientation Straight 08/26/2020 6: 26 AM TURNAROUND PLANNER documented as of this encounter Miscellaneous Notes * Telephone Encounter - Letitia Flores RN - 06/19/2018 7:40 AM TURNAROUND PLANNER Date of Procedure:06/18/18 Procedure: LMBB Level(s): L3-4-5, S1 Site: []Left [] Right [x] Bilateral [] Midline Pre-Procedure Pain Score:6 Sedation: [x] No Sedation [] Minimal Sedation [] Moderate Sedation IV Site: [x] N/A [] No Redness/Swelling [] Redness/Swelling Post Procedure Follow Up Assessment: Did the injection help you? [x] Yes over 50 % Current Pain Rating? 4 Numbness/Heaviness [x] No [] Yes Dizziness or lightheadedness [x] No [] Yes Puncture Site: [x] No tenderness/swelling [] Tenderness without drainage [] Advised to apply heating pad for 20 minutes for puncture sitesoreness. Pain Diary 2 Hour Pain Diary every 15 mins 4 Hour Pain Diary every 30 mins 8 Hour pain Diary every 1 hour 4 3 4 3-4 4 3 3 sleeping OtherComments/Concerns:[id number] #4 AROUND PLANNER AROUND PLANNER documented in this encounter Plan of Treatment Not on file documented as of this encounter Visit Diagnoses Not on filedocumented in this encounter Care Teams Air Tank Assembler Relationship Specialty Start Date End Date Felicitas Samuel MD PCP - General 10/13/16 07/19/20 documented as of this encounter
--- OUTSIDE RECORDS SUMMARY | 2024-07-28 01:10 | XMS_ITS | Encounter Summary ---
Author Organization [facility] Healthcare Address [address] [facility] [place] [address] Care Team Providers Care Cable Way Operator Name Role Phone Felicitas Samuel MD Primary Care Provider + Encounter Details Date Type Department Care Team (Latest Contact Info) Description 06/03/2018 1:24 PM QUALITY AND RELIABILITY ENGINEER - 06/03/2018 2:52 PM QUALITY AND RELIABILITY ENGINEER Hospital Encounter [facility] [address] [facility] [place], [place] [phone] [place] Fernandez MD [address] [facility] [address] [facility] [phone] [place], [place] [id number] Discharge Disposition: Discharge to home or self care Social History Tobacco Use Types Packs/Day Years Used Date Smoking Tobacco: Never Smokeless Tobacco: Never Alcohol Use Standard Drinks/Week Comments No 0 (1 standard drink = 0.6 oz pur e alcohol) Comments No Sex and Gender Information Value Date Recorded Sex Assigned at Not on file Legal Sex Female 2:03 AM QUALITY AND RELIABILITY ENGINEER Gender Identity Female 08/26/2020 6:26 AM QUALITY AND RELIABILITY ENGINEER Sexual Orientation Straight 08/26/2020 6: 26 AM QUALITY AND RELIABILITY ENGINEER documented as of this encounter Last Filed Vital Signs Vital Sign Reading Time Taken Comments Blood Pressure 118/85 06/03/2018 2:50 PM QUALITY AND RELIABILITY ENGINEER Pulse 93 06/03/2018 2:50 PM QUALITY AND RELIABILITY ENGINEER Temperature - - Respiratory Rate 13 06/03/2018 2:50 PM QUALITY AND RELIABILITY ENGINEER Oxygen Saturation 97% 06/03/2018 2:50 PM QUALITY AND RELIABILITY ENGINEER Inhaled Oxygen Concentration - - Weight - - Height - - Body Mass Index - - documented in this encounter Discharge Instructions * Discharge Instructions* Idania Self, RN - 06/03/2018 2:44 PM QUALITY AND RELIABILITY ENGINEER MEDICATIONS: Continue current home medications with change(s) Start: Discontinue: [] Resume blood thinner: On (Date) DIET: [x] Resume normal diet [] Do not eat for six (6) hours or drink for three (3) hours before your next procedure. [] No eating or drinking 2 hours after the procedure. ACTIVITY: [] Resume normal activity [x] No driving for 24 hours [x] May shower today [] Do not soak in water (bathtub, hot tub, pool) until tomorrow. [x] No shower or bath until: [] Do no remove dressing until:this evening REFERRALS: Physical Therapy [] [facility] ([phone]) [] GMI (Graded Motor Imagery) [] [facility] ([phone]) [] Other: Behavior Medicine [] Pain Psychologist, [facility] ([phone]) Diagnostic Tests: EDUCATION provided on the following: [] Information Sheet on new medication(s) given [x] Notify your pharmacy for refill(s) 7 days before out of medication. [] Dosing Schedule of medication(s) [] Side Effects of Pain Medications [] Opioid (Narcotic) Agreement [] Spinal Cord Stimulator Education and DVD. Vendor: [] Procedure today:Lumbar Medical Branch Blocks Other: FOLLOW UP APPOINTMENTS: [] Return as needed [] Follow up appointment [] Procedure at next visit : [] Reviewed and given Pre-Procedure information sheet. [x] We will contact you the next business day [x] To obtain Pain diary Anticoagulation Instructions Prior to Procedure [] Stop Blood Thinner: [] Number of days to hold medication prior to procedure: [] Blood work required 2 hours before procedure (PT/INR). Patient provided information and repeated back with understanding. If you need to reach us: For any questions about your procedure, please call the Pain Management Center [phone] ([phone]) (8am-4pm) If you need urgent attention after 5 pm and weekends: Call the [facility] Hazard Mitigation Officer at [phone] and ask for the Pain Service doctor hyperion essbase developer. ITY AND RELIABILITY ENGINEER documented in this encounter Medications at Time [...] day. As need for pain 90 tablet 05/16/2018 06/18/2018 lidocaine (LIDODERM) 5 % Place 1 patch on the skin daily as needed for pain 07/27/2016 08/03/2020 magnesium oxide 400 mg capsule 250 mg 3 tablets a day 04/19/2020 meloxicam (MOBIC) 15 mg tabletIndications :Osteoarthritis Take 1 tablet (15 mg total) by mouth daily. 90 tablet 3 04/22/2018 06/18/2018 omega 1-qlb-fja-fish oil 1,000 mg (120 mg-180 mg) capsule Take 1 capsule by mouth every morning 09/05/2022 exff-mhzo-yyn-yuc -hrd-lmlo-qsv (TUMERSAID) [phone] mg tablet daily 04/19/2020 turmeric root extract 500 mg capsuleIndication s:OTC Take 1,350 mg by mouth every morning 09/05/2022 documented as of this encounter Discharge Disposition Disposition Code Departure Means Destination Discharge to home or self care documented in this encounter Miscellaneous Notes * Op Note - [place] Fernandez MD - 06/03/2018 2:25 PM CST SURGEON: [place] Fernandez M.D. CLAMSHELL ENGINEER SURGEON: CLAMSHELL ENGINEER SURGEON: Wojciech Maldonado MD. NAME OF PROCEDURE: Local Anesthetic Medial Branch [...] DISPOSITION: Patient discharged home in stable condition. ITY AND RELIABILITY ENGINEER * Perioperative Nursing Note - Clarisa Chavez RN - 06/03/2018 1:55 PM QUALITY AND RELIABILITY ENGINEER Pt states her son is driving her home today. Name is Roberto Carlos Santiago. Son is waiting in the waiting room. ITY AND RELIABILITY ENGINEER documented in this encounter Plan of Treatment Not on file documented as of this encounter Procedures Procedure Name Priority Date/Time Associated Diagnosis Comments IR DISC ASPIRATION IP Routine 06/03/2018 2: 41 PM QUALITY AND RELIABILITY ENGINEER INJECTION PARABERTEBRAL FACET LUMBAR/SACRAL 1 LEVEL 06/03/2018 2:24 PM QUALITY AND RELIABILITY ENGINEER Lumbar facet arthropathy documented in this encounter Results * IR Fluoro Guidance for Spine Needle Placement (06/03/2018 2:41 PM QUALITY AND RELIABILITY ENGINEER) Narrative [facility] - 06/03/2018 2:47 PM QUALITY AND RELIABILITY ENGINEER The images from this study are not interpreted by Radiology. ??Please refer to the physician's procedure / OR operative note. us [place] Fernandez MD IMG IR PROCEDURES Final Re sult [facility] documented in this encounter Visit Diagnoses Not on filedocumented in this encounter Active and Recently Administered Medications Due to Daylight Saving Time, this section may contain times in both CDT and QUALITY AND RELIABILITY ENGINEER. PRN Medication Order 06/01/2018 2018 06/03/2018 bupivacaine (MARCAINE) 0.5 % (5 mg/mL) injection (CANCELED) As needed, Starting on 06/03/18 at 1432, Intra-Op 1432 (Given - Provid er: [place] Fernandez MD) lidocaine PF (XYLOCAINE) 10 mg/mL (1 %) preservative free injection (CANCELED) As needed, Starting on Sun06/03/18 at 1432, Intra-Op 1432 (Given - Provid er: [place] Fernandez MD) documented in this encounter Orders Medications Ordered That Thai ht Not Have Been Administered Count Last Ordered Date First Ordered Date bupivacaine (MARCAINE) 0.5 % (5 mg/mL) injection 1 06/03/2018 bupivacaine (MARCAINE) 0.5 % (5 mg/mL) preservative free injection - ADS Override Pull 2 06/03/2018 lidocaine PF (XYLOCAINE) 10 mg/mL (1 %) preservative free injection 1 06/03/2018 lidocaine PF (XYLOCAINE) 10 mg/mL (1 %) preservative free injection - ADS Override Pull 2 06/03/2018 documented in this encounter Care Teams Cable Way Operator Relationship Specialty Start Date End Date Felicitas Samuel MD PCP - General 10/13/16 07/19/20 documented as of this encounter
--- OUTSIDE RECORDS SUMMARY | 2024-07-28 01:10 | XMS_ITS | Encounter Summary ---
Author Organization [facility] Healthcare Address [address] [facility] [place] [address] Care Team Providers Care Billing Assistant Name Role Phone Felicitas Samuel MD Primary Care Provider + Reason for Visit * Reason Onset Date Comments Post-op Follow-up 06/04/2018 Encounter Details Date Type Department Care Team (Late st Contact Info) Description 06/04/2018 Telephone [facility] [place] [facility] [address] [facility] [address] [place], [place] [phone] [place] Fernandez MD [address] [facility] [address] [facility] [phone] [place], [place] [phone] Post-op Follow-up Social History Tobacco Use Types Packs/Day Years Used Date Smoking Tobacco: Never Smokeless Tobacco: Never Alcohol Use Standard Drinks/Week Comments No 0 (1 standard drink = 0.6 oz pur e alcohol) Comments No Sex and Gender Information Value Date Recorded Sex Assigned at Not on file Legal Sex Female 2:03 AM BACKROOM ASSOCIATE Gender Identity Female 08/26/2020 6:26 AM BACKROOM ASSOCIATE Sexual Orientation Straight 08/26/2020 6: 26 AM BACKROOM ASSOCIATE documented as of this encounter Miscellaneous Notes * Telephone Encounter - [place] Fernandez MD - 06/04/2018 12:56 PM BACKROOM ASSOCIATE It looks like pain decreased by at least 50%. Will discuss further at her next scheduled visit. ROOM ASSOCIATE * Telephone Encounter - Reanna Love RN - 06/04/2018 9:25 AM BACKROOM ASSOCIATE Date of Procedure: 06/03/2018 Procedure: LMBB #1 Level(s): L3, 4, , 5, S1 Site: []Left [] Right [x] Bilateral [] Midline Pre-Procedure Pain Score:7 Sedation: [x] No Sedation [] Minimal Sedation [] Moderate Sedation IV Site: [x] N/A [] No Redness/Swelling [] Redness/Swelling Post Procedure Follow Up Assessment: Did the injection help you? [x] Yes [] No Current Pain Rating? 6 Numbness/Heaviness [] No [] Yes Dizziness or lightheadedness [] No [] Yes Puncture Site: [x] No tenderness/swelling [] Tenderness without drainage [] Advised to apply heating pad for 20 minutes for puncture sitesoreness. Pain Diary 2 Hour Pain Diary every 15 mins 4 Hour Pain Diary every 30 mins 8 Hour pain Diary every 1 hour 4 4 3 3 3 3-4 5 OtherComments/Concerns: Took Baclofen for muscle spasms Dropped pain level from 4 to 3. Returning on 06/18 for LMBB #2. ROOM ASSOCIATE documented in this encounter Plan of Treatment Not on file documented as of this encounter Visit Diagnoses Not on filedocumented in this encounter Care Teams Billing Assistant Relationship Specialty Start Date End Date Felicitas Samuel MD PCP - General 10/13/16 07/19/20 documented as of this encounter
--- OUTSIDE RECORDS SUMMARY | 2024-07-28 01:10 | XMS_ITS | Encounter Summary ---
Author Organization [facility] Healthcare Address [address] [facility] [place] [address] Care Team Providers Care Energy Engineer Name Role Phone Felicitas Samuel MD Primary Care Provider + Encounter Details Date Type Department Care Team (Latest Contact Info) Description 10/08/2017 1:16 PM CDT - 10/08/2017 11:59 PM T Hospital Encounter [facility] OP INTERIM [phone] Obed Gomez MD [address] [facility] [address] [phone] [place] Fernandez MD [address] [facility] [address] [phone] Discharge Disposition: Discharge to home or self care Social History Tobacco Use Types Packs/Day Years Used Date Smoking Tobacco: Never Comments Unknown Sex and Gender Information Value Date Recorded Sex Assigned at Not on file Legal Sex Female 2:03 AM INDUSTRIAL BOILERMAKER Gender Identity Female 08/26/2020 6:26 AM INDUSTRIAL BOILERMAKER Sexual Orientation Straight 08/26/2020 6: 26 AM INDUSTRIAL BOILERMAKER documented as of this encounter Medications at [...] on filedocumented in this encounter Care Teams Energy Engineer Relationship Specialty Start Date End Date Felicitas Samuel MD PCP - General 10/13/16 07/19/20 documented as of this encounter
--- OUTSIDE RECORDS SUMMARY | 2024-07-28 01:10 | XMS_ITS | Encounter Summary ---
Author Organization [facility] Facility Care Team Providers Care Reinstatement Clerk Name Role Phone Unavailable Primary Care Provider Unavailabl e Encounter Details Date Type Department Care Team (Late st Contact Info) Description 10/13/2014 - 10/13/2014 11:59 PM CDT Hospital Encounter [facility] Miriam, Matilde Rodriguez MD [address] [place] [address] Social History Tobacco Use Types Packs/Day Years Used Date Smoking Tobacco: Never Comments Unknown Sex and Gender Information Value Date Recorded Sex Assigned at Not on file Legal Sex Female 2:03 AM NEWSPAPER DISTRIBUTOR SUPERVISOR Gender Identity Female 08/26/2020 6:26 AM NEWSPAPER DISTRIBUTOR SUPERVISOR Sexual Orientation Straight 08/26/2020 6: 26 AM NEWSPAPER DISTRIBUTOR SUPERVISOR documented as of this encounter Medications [...]
--- OUTSIDE RECORDS SUMMARY | 2024-07-28 01:10 | XMS_ITS | Encounter Summary ---
Author Organization [facility] Healthcare Address [address] [place] [address] Care Team Providers Care Operations And Maintenance Manager Name Role Phone Felicitas Samuel MD Primary Care Provider + Encounter Details Date Type Department Care Team (Latest Contact Info) Description 10/13/2016 11:12 AM CDT - 10/13/2016 11:59 PM T Hospital Encounter [facility] OP INTERIM [phone] [place] Fernandez MD [address] [phone] [place] [address] Discharge Disposition: Discharge to home or self care Social History Tobacco Use Types Packs/Day Years Used Date Smoking Tobacco: Never Comments Unknown Sex and Gender Information Value Date Recorded Sex Assigned at Not on file Legal Sex Female 2:03 AM PARAMEDIC RN Gender Identity Female 08/26/2020 6:26 AM PARAMEDIC RN Sexual Orientation Straight 08/26/2020 6: 26 AM PARAMEDIC RN documented as of this encounter Medications at [...] on filedocumented in this encounter Care Teams Operations And Maintenance Manager Relationship Specialty Start Date End Date Felicitas Samuel MD PCP - General 10/13/16 07/19/20 documented as of this encounter
--- OUTSIDE RECORDS SUMMARY | 2024-07-28 01:10 | XMS_ITS | Encounter Summary ---
Author Organization [facility] Facility Care Team Providers Care Endoscopic Technician Name Role Phone Unavailable Primary Care Provider Unavailabl e Encounter Details Date Type Department Care Team (Latest Contact Info) Description 08/21/2011 3:53 PM WAREHOUSE SPECIALIST - 07/29/2012 11:59 PM WAREHOUSE SPECIALIST Hospital Encounter [facility] Volodymyr Araya Other chronic pain; Disorder of sacrum; Degeneration of lumbar or lumbosacral intervertebral disc; Degeneration of cervical intervertebral disc Social History Tobacco Use Types Packs/Day Years Used Date Smoking Tobacco: Never Assessed Comments Unknown Sex and Gender Information Value Date Recorded Sex Assigned at Not on file Legal Sex Female 2:03 AM WAREHOUSE SPECIALIST Gender Identity Female 08/26/2020 6:26 AM WAREHOUSE SPECIALIST Sexual Orientation Straight 08/26/2020 6: 26 AM WAREHOUSE SPECIALIST documented as of this encounter Medications [...] encounter Visit Diagnoses Diagnosis Other chronic pain Disorder of sacrum Disorders of sacrum Degeneration of lumbar or lumbosacral intervertebral disc Degeneration of cervical intervertebral disc documented in this encounter
--- OUTSIDE RECORDS SUMMARY | 2024-07-28 01:10 | XMS_ITS | Encounter Summary ---
Author Organization [facility] Healthcare Address [address] [facility] [place] [address] Care Team Providers Care Manager Cardiology Name Role Phone Felicitas Samuel MD Primary Care Provider + Reason for Visit * Reason Onset Date Comments CALL BACK 05/20/2018 Encounter Details Date Type Department Care Team (Late st Contact Info) Description 05/20/2018 Telephone [facility] [place] [facility] [address] [facility] [address] Medicine [address] [place], [place] [phone] [place] Fernandez MD [address] [facility] [address] [facility] [phone] [place], [place] [phone] CALL BACK Social History Tobacco Use Types Packs/Day Years Used Date Smoking Tobacco: Never Smokeless Tobacco: Never Comments No Sex and Gender Information Value Date Recorded Sex Assigned at Not on file Legal Sex Female 2:03 AM MACHINE II CUTTER Gender Identity Female 08/26/2020 6:26 AM MACHINE II CUTTER Sexual Orientation Straight 08/26/2020 6: 26 AM MACHINE II CUTTER documented as of this encounter Miscellaneous Notes * Telephone Encounter - Letitia Flores RN - 05/22/2018 1:31 PM CDT Spoke with pharmacy and they already had dx on file. documented in this encounter Plan of Treatment Not on file documented as of this encounter Visit Diagnoses Not on filedocumented in this encounter Care Teams Manager Cardiology Relationship Specialty Start Date End Date Felicitas Samuel MD PCP - General 10/13/16 07/19/20 documented as of this encounter
--- OUTSIDE RECORDS SUMMARY | 2024-07-28 01:10 | XMS_ITS | Encounter Summary ---
Author Organization [facility] Healthcare Address [address] [facility] [place] [address] Care Team Providers Care Sheet Metal Worker Maintenance Name Role Phone Felicitas Samuel MD Primary Care Provider + Reason for Visit * Reason Onset Date Comments Call Back 03/12/2018 Encounter Details Date Type Department Care Team (Late st Contact Info) Description 03/12/2018 Telephone [facility] [place] [facility] [address] [facility] Advanced Medicine [address] [place], [place] [phone] [place] Fernandez MD [address] [facility] [address] [facility] [phone] [place], [place] [phone] Call Back Social History Tobacco Use Types Packs/Day Years Used Date Smoking Tobacco: Never Smokeless Tobacco: Never Comments Unknown Sex and Gender Information Value Date Recorded Sex Assigned at Not on file Legal Sex Female 2:03 AM FINANCIAL SERVICES MANAGER Gender Identity Female 08/26/2020 6:26 AM FINANCIAL SERVICES MANAGER Sexual Orientation Straight 08/26/2020 6: 26 AM FINANCIAL SERVICES MANAGER documented as of this encounter Miscellaneous Notes * Telephone Encounter - Letitia Flores RN - 03/14/2018 1:42 PM CDT Pt notified PT order mailed home with refill. * Telephone Encounter - [place] Fernandez MD - 03/14/2018 12:18 PM CDT Rx for PHYSICAL THERAPY and hydrocodone placed in the basket in the credit charge authorizer office * Telephone Encounter - Adamaris Lan RN - 03/12/2018 4:18 PM CDT Ret'd pt call: states at last appt Dr Fernandez mentioned PT and she is ready to do that. Asking for script to be mailed to her home so she can go to [facility] near her home. Will route to Dr Fernandez. documented in this encounter Plan of Treatment Not on file documented as of this encounter Visit Diagnoses Diagnosis Chronic bilateral low back pain without sciatica- Primary documented in this encounter Care Teams Sheet Metal Worker Maintenance Relationship Specialty Start Date End Date Felicitas Samuel MD PCP - General 10/13/16 07/19/20 documented as of this encounter
--- OUTSIDE RECORDS SUMMARY | 2024-07-28 01:10 | XMS_ITS | Encounter Summary ---
Author Organization [facility] Facility Care Team Providers Care Packing Machine Can Feeder Name Role Phone Unavailable Primary Care Provider Unavailabl e Encounter Details Date Type Department Care Team (Late st Contact Info) Description 10/09/2014 - 10/09/2014 11:59 PM CDT Hospital Encounter [facility] Miriam, Matilde Rodriguez MD [address] [place] [address] Social History Tobacco Use Types Packs/Day Years Used Date Smoking Tobacco: Never Comments Unknown Sex and Gender Information Value Date Recorded Sex Assigned at Not on file Legal Sex Female 2:03 AM HEALTH AND WELLNESS INSTRUCTOR Gender Identity Female 08/26/2020 6:26 AM HEALTH AND WELLNESS INSTRUCTOR Sexual Orientation Straight 08/26/2020 6: 26 AM HEALTH AND WELLNESS INSTRUCTOR documented as of this encounter Medications [...]
--- OUTSIDE RECORDS SUMMARY | 2024-07-28 01:10 | XMS_ITS | Encounter Summary ---
Author Organization [facility] Healthcare Address [address] [place] [address] Care Team Providers Care Dairy Department Manager Name Role Phone Felicitas Samuel MD Primary Care Provider + Encounter Details Date Type Department Care Team (Latest Contact Info) Description 06/18/2018 2:25 PM DIRECTOR OF SAFETY - 06/18/2018 3:29 PM DIRECTOR OF SAFETY Hospital Encounter [facility] Pain Management [address] [place], [place] [id number] Nancy Fernandez MD [address] [facility] [facility] [address] [facility] [id number] [place], [place] [id number] Discharge Disposition: Discharge to home or self care Social History Tobacco Use Types Packs/Day Years Used Date Smoking Tobacco: Never Smokeless Tobacco: Never Alcohol Use Standard Drinks/Week Comments No 0 (1 standard drink = 0.6 oz pur e alcohol) Comments No Sex and Gender Information Value Date Recorded Sex Assigned at Not on file Legal Sex Female 2:03 AM DIRECTOR OF SAFETY Gender Identity Female 08/26/2020 6:26 AM DIRECTOR OF SAFETY Sexual Orientation Straight 08/26/2020 6: 26 AM DIRECTOR OF SAFETY documented as of this encounter Last Filed Vital Signs Vital Sign Reading Time Taken Comments Blood Pressure 111/75 06/18/2018 3:27 PM DIRECTOR OF SAFETY Pulse 100 06/18/2018 3:27 PM DIRECTOR OF SAFETY Temperature - - Respiratory Rate 14 06/18/2018 3:27 PM DIRECTOR OF SAFETY Oxygen Saturation 99% 06/18/2018 3:27 PM DIRECTOR OF SAFETY Inhaled Oxygen Concentration - - Weight - - Height - - Body Mass Index - - documented in this encounter Discharge Instructions * Discharge Instructions* Christiana Harding, RN - 06/18/2018 2:51 PM DIRECTOR OF SAFETY MEDICATIONS: Continue current home medications with change(s) [...] 24 hours REFERRALS: Physical Therapy [] [facility] ([phone]) [] GMI (Graded Motor Imagery) [] [facility] ([phone]) [] Other: Behavior Medicine [] Pain Psychologist, Pain Management Center ([phone]) Diagnostic Tests: EDUCATION provided on the following: [...] procedure, please call the Pain Management Center [phone] (M-F) (8am-4pm) If you need urgent attention after 5 pm and weekends: Call the [facility] Java Developer Analyst at [phone] and ask for the Pain Service doctor insulation cutter. CTOR OF SAFETY documented in this encounter Medications at Time [...] daily. 90 tablet 3 06/18/2018 06/10/2019 omega 1-hau-sxg-fish oil 1,000 mg (120 mg-180 mg) capsule Take 1 capsule by mouth every morning 09/05/2022 roma-ppjv-bhr-yuc -qhz-hmzq-fss (TUMERSAID) [phone] mg tablet daily 04/19/2020 turmeric root extract [...] Based on the above findings, I consider Annette Camarena to be an acceptable risk for : Procedure(s): LMBB/Injection Facet Lumbo Sacral 1 Level 04478 Last LMBB helped significantly. Pain returned to baseline after local anesthetic wore off. Back pain is axial. No radiation with the exception of occasional left anterolateral thigh pain, which she thinks is due a natural tendency to internally rotate her left leg. Needs refills on meloxicam and hydrocodone. CTOR OF SAFETY Source Note - Wojciech Maldonado MD - 06/03/2018 2:00 PM DIRECTOR OF SAFETY Patient Name: Annette Camarena : 1960 Today's Date: 01/21/2018 PCP: Felicitas Samuel MD Referring: No ref. provider found Chief Complaint Patient presents with ??? Back Pain Chief Complaint ?She presents today for neck and low back pain. HPI ANNETTE CAMARENA is a patient initially seen [...] the night. Analgesics: Baclofen 10 mg QHS [place] 7.5/325 mg Cymbalta 60 mg qd (managed [...] Prescriptions No medications on file Previous Medications [id number]-QAIOFJK-DJYTIGHS (EXCEDRIN MIGRAINE) 250-250-65 MG PER TABLET daily. [...] Provider: Joaquín Beckman MD Notes: -- OMEGA 4-ISW-PRA-FISH OIL 1,000 MG (120 MG-180 MG) CAPSULE daily Authorizing Provider: Joaquín Beckman MD Notes: -- OIHV-ZWLZ-NEO-YPB-OTM-ZCYB-HOR (TUMERSAID) [phone] MG TABLET Take by mouth. Authorizing Provider: [...] Normal respiratory effort MUSCULOSKELETAL EXAMINATION: Gait normal. [id number] SPINE: Mild TTP across lumbosacral spine, negative [...] Fellow, Pain Management, Department of Anesthesiology [facility], [facility] 06/03/2018 3:54 PM Cosigned by Nancy Fernandez MD at 06/03/2018 4:42 PM DIRECTOR OF SAFETY CTOR OF SAFETY CTOR OF SAFETY documented in this encounter Miscellaneous Notes * Perioperative Nursing Note - Christiana Harding RN - 06/18/2018 3:04 PM DIRECTOR OF SAFETY Mixing And Molding Machine Operator candido, belkis Azevedo, post procedure CTOR OF SAFETY * Op Note - Nancy Fernandez MD - 06/18/2018 2:54 PM CST SURGEON: Nancy Fernandez M.D. BOX LINING MACHINE FEEDER SURGEON: BOX LINING MACHINE FEEDER SURGEON: None NAME OF PROCEDURE: Local Anesthetic [...] DISPOSITION: Patient discharged home in stable condition. CTOR OF SAFETY * Perioperative Nursing Note - Adamaris Lan RN - 06/18/2018 2:39 PM DIRECTOR OF SAFETY Son in waiting room to drive pt home after procedure. CTOR OF SAFETY documented in this encounter Plan of Treatment Not on file documented as of this encounter Procedures Procedure Name Priority Date/Time Associated Diagnosis Comments IR DISC ASPIRATION IP Routine 06/18/2018 3: 15 PM DIRECTOR OF SAFETY INJECTION PARABERTEBRAL FACET LUMBAR/SACRAL 1 LEVEL 06/18/2018 2:54 PM DIRECTOR OF SAFETY Lumbar facet arthropathy documented in this encounter Results * IR Fluoro Guidance for Spine Needle Placement (06/18/2018 3:15 PM DIRECTOR OF SAFETY) Narrative [facility] - 06/18/2018 3:18 PM DIRECTOR OF SAFETY The images from this study are not interpreted by Radiology. ??Please refer to the physician's procedure / OR operative note. us Nancy Fernandez MD IMG IR PROCEDURES Final Re sult [facility] documented in this encounter Visit Diagnoses Not on filedocumented in this encounter Active and Recently Administered Medications Times are shown in DIRECTOR OF SAFETY. PRN Medication Order 06/16/2018 06/17/2018 06/18/2018 bupivacaine (MARCAINE) 0.5 % (5 mg/mL) injection (CANCELED) As needed, Starting on 06/18/18 at 1506, Intra-Op 1506 (Given - Provid er: Nancy Fernandez MD) lidocaine (XYLOCAINE) 10 mg/mL (1 %) injection (CANCELED) As needed, Starting on 06/18/18 at 1506, Intra-Op, Indications: Administration of Local Anesthesia 1506 (Given - Provid er: Nancy Fernandez MD) documented in this encounter Orders Medications Ordered That Thai ht Not Have Been Administered Count Last Ordered Date First Ordered Date bupivacaine (MARCAINE) 0.5 % (5 mg/mL) injection 1 06/18/2018 lidocaine (XYLOCAINE) 10 mg/ mL (1 %) injection 1 06/18/2018 documented in this encounter Care Teams Dairy Department Manager Relationship Specialty Start Date End Date Felicitas Samuel MD PCP - General 10/13/16 07/19/20 documented as of this encounter
--- OUTSIDE RECORDS SUMMARY | 2024-07-28 01:10 | XMS_ITS | Encounter Summary ---
Author Organization [facility] Facility Care Team Providers Care X Ray Technologist Name Role Phone Unavailable Primary Care Provider Unavailabl e Encounter Details Date Type Department Care Team (Late st Contact Info) Description 10/29/2014 - 10/29/2014 11:59 PM CDT Hospital Encounter LOCATED [facility]IN [facility] Matilde Pineda MD [address] [place] [address] Social History Tobacco Use Types Packs/Day Years Used Date Smoking Tobacco: Never Comments Unknown Sex and Gender Information Value Date Recorded Sex Assigned at Not on file Legal Sex Female 2:03 AM CROTCH BREAKER Gender Identity Female 08/26/2020 6:26 AM CROTCH BREAKER Sexual Orientation Straight 08/26/2020 6: 26 AM CROTCH BREAKER documented as of this encounter Medications at [...]
--- OUTSIDE RECORDS SUMMARY | 2024-07-28 01:10 | XMS_ITS | Encounter Summary ---
Author Organization [facility] Healthcare Address [address] [place] [address] Care Team Providers Care Credentialing Coordinator Name Role Phone Felicitas Samuel MD Primary Care Provider + Reason for Visit * Reason Comments Back Pain Encounter Details Date Type Department Care Team (Late st Contact Info) Description 01/21/2018 9:30 AM CDT Office Visit [facility] [address] [place], [place] [phone] Jesus Wells MD [address] [facility] [phone] [place] [address] Nancy Fernandez MD [address] [facility] [phone] [place] [address] Fibromyalgia (Primary Dx); Other chronic pain; Chronic bilateral low back pain without sciatica; High risk medication use Discharge Disposition: Discharge to home or self care Social History Tobacco Use Types Packs/Day Years Used Date Smoking Tobacco: Never Smokeless Tobacco: Never Comments Unknown Sex and Gender Information Value Date Recorded Sex Assigned at Not on file Legal Sex Female 2:03 AM SENIOR CAREGIVER Gender Identity Female 08/26/2020 6:26 AM SENIOR CAREGIVER Sexual Orientation Straight 08/26/2020 6: 26 AM SENIOR CAREGIVER documented as of this encounter Last Filed Vital Signs Vital Sign Reading Time Taken Comments Blood Pressure 123/85 01/21/2018 9:34 AM CDT Pulse 92 01/21/2018 9:34 AM CDT Temperature 36.9 ??C (98.5 ??F) 01/21/2018 9:34 AM CD T Respiratory Rate 18 01/21/2018 9:34 AM CDT Oxygen Saturation - - Inhaled Oxygen Concentration - - Weight 67.3 kg (148 lb 4.8 oz) 01/21/2018 9:34 A M CDT Height 172.7 cm (5' 8 ) 01/21/2018 9:34 AM CDT Body Mass Index 22.55 01/21/2018 9:34 AM CDT documented in this encounter Discharge Disposition Disposition Code Departure Means Destination Discharge to home or self care documented in this encounter Progress Notes * Kuldip Garcia MD - 01/21/2018 9:30 AM CDT Patient Name: Annette Camarena : [...] the night. Analgesics: Baclofen 10 mg QHS [place] 7.5/325 mg Cymbalta 60 mg qd (managed by PCP with plan to taper up). She has stopped doing yoga as it started to cause pain and she is concerned with her diagnosis of osteoporosis. She has not done PT in >1 year and does not have exercises for her upper back. She continues walking routine. TODAY 01/21/2918 Patient presents for a follow up today. She has pain all over but her predominant pain right now isher lower back, which is about 6/10 right now but gets to 8/10 during its worst. The pain is dull aching but sometimes is sharp and shoots down her left thigh but not past the knees. No numbness or tingling anywhere. Her recently had a stroke and she has been really stressed lately which has made the pain worst. She used to take her hydrocodone/APAP 2 times a day but these days has increased it to 3 times a day. In addition she continues with her baclofen, Cymbalta, Exedrin tabs in am and lidocaine patches. She last saw physical therapist last winter but has her exercises which really help with the low back pain. However, since her 's stroke she has not had time to do the exercises. Current analgesics Hydrocodone/APAP 7.5/350 -averages 3 daily baclofen 10 mg at HS, and when she awakens b/c of pain an additional 10 mg cymbalta 60mg am lidocaine 5% patches to LB, cervical area Excedrin migraine-2 every morning since she awakens with headache Ambien 10 mg HS-no morning hangover denies adverse side effects from prescribed medications-no constipation reviewed opioid contract w/ pt. No cannabinoid containing creams/oil/lotions allowed Review of Systems Negative except for those mentioned in the HPI Patient's Medications New Prescriptions No medications on file Previous Medications CZLNAKARATAMV-CWABPGA-SBVRNRPD (EXCEDRIN MIGRAINE) 250-250-65 MG PER TABLET daily. [...] PER TABLET Take 1 tablet by mouth every 6 (six) hours as needed for pain. As need for pain Authorizing Provider: Katelyn Snow MD PhD Notes: Filling on behalf of Dr. Fernandez IBUPROFEN (IBUPROFEN) 200 MG TAB/CAP take 2 twice daily Authorizing Provider: Joaquín Beckman MD Notes: -- LIDOCAINE (LIDODERM) 5 % Use 2 to 3 patches to area of pain daily, max 12 hrs any one area of skin Authorizing Provider: Joaquín Beckman MD Notes: -- MAGNESIUM OXIDE 400 MG CAPSULE Authorizing Provider: Joaquín Beckman MD Notes: -- MELOXICAM (MOBIC) 15 MG TABLET daily. Authorizing Provider: Joaquín Beckman MD Notes: -- MONTELUKAST (SINGULAIR) 10 MG TABLET daily. Authorizing Provider: Joaquín Beckman MD Notes: -- OMEGA 7-LPI-GVM-FISH OIL 1,000 MG (120 MG-180 MG) CAPSULE daily Authorizing Provider: Joaquín Beckman MD Notes: -- ZOLPIDEM (AMBIEN) 10 MG TABLET TAKE 1 TABLET AT BEDTIME NEEDED FOR SLEEP. Authorizing Provider: Joaquín Beckman MD Notes: -- Modified Medications No medications on file Discontinued Medications ARIPIPRAZOLE (ABILIFY) 2 MG TABLET Authorizing Provider: Joaquín Beckman MD Notes: -- Allergies Allergen Reactions ??? Decongestant Capsule Other (See comments) Physical Exam Vitals: 01/21/18 0934 BP: 123/85 Pulse: 92 Resp: 18 Temp: 98.5 ??F (36.9 ??C) Weight: 67.3 kg (148 lb 4.8 oz) Height: 172.7 cm (5' 8 ) Body mass index is 22.55 kg/m??. CONSTITUTIONAL: general appearance normal EYES: Normal conjunctivae/lids EARS / NOSE / MOUTH / THROAT: Hearing assessment normal. Lips, teeth and gums normal. CARDIOVASCULAR: No Lower extremity edema CHEST: Symmetric. RESPIRATORY: Normal respiratory effort MUSCULOSKELETAL EXAMINATION: Gait normal. CERVICAL SPINE: Normal extension. Normal flexion. No tenderness. Multiple trigger points on B/l shoulders, cervical region UPPER EXTREMITIES: Normal range of motion. Normal muscle strength. Normal muscle bulk and tone. THORACIC SPINE: No thoracic spine tenderness. [id number] SPINE: Paraspinal muscles normal. SLR/Jerod's sign normal. LOWER EXTREMITIES: Normal range [...] Office Note. Encounter Diagnoses Name Primary? Other chronic pain ??? Fibromyalgia Yes ??? Chronic bilateral low back pain without sciatica ??? High risk medication use Plan 1. Interventions: none indicated today. 2. Medications: ?? Opioids: The patient may continue taking opioids prescribed by the primary care physician at this current time. We educated the patient on the risks of prolonged opioid use including but not limited to, tolerance, dependence, opioid induced hyperalgesia, immunosuppression, osteoporosis, and hormonal imbalance. We will increase her Hydrocodone to 3 time a day for now with aim of going back to 2times a day once things settle down in her personal life. Recently refilled last Rx for 75 tabs. Advised her that we would be willing to refill early to account for taking the medication on a TID basis, but we cannot say whether an early refill will be covered by insurance. ?? Adjuvants: Continue baclofen, Cymbalta and lidoderm patches 3. Imaging: No further imaging needed at this current time. 4. Referral: No referrals needed at this current time. 5. Follow-up: in 3 months time. No orders of the defined types were placed in this encounter. Kuldip Garcia MD Resident, Anesthesiology, CA1 01/21/2018 --- I provided this service on 01/21/2018 I saw and examed the patient by myself. I reviewed patient's chart, labs and image/result. I have reviewed the above evaluation and treatment plan withTrainee Physician Dr. Garcia . I agree with the evaluation and treatment plan as above. Nancy Fernandez MD [facility] Department of Anesthesiology and Pain 11:58 AM 01/21/2018 10:26 AM * Maohgany Marcial, RN - 01/21/2018 9:30 AM CDT PMC discharge instructions. RTC in three months to see Agustina Marylu AKBAR * Mahogany Marcial, RN - 01/21/2018 9:30 AM CDT 01/21/18 10:29 AM Urine Drug Screen obtained: [] [facility] lab [x] [facility] Medication/Dose/Frequency:Hydrocodone 7.5-325 mg one tablet every 6 hours as needed Date and time of Last Dose: 01/21/18 at 0430 Medication/Dose/Frequency: Date and time of Last Dose: Results: Consistent with prescribe analgesic for: hydrocodone Negative [...] Dose: Cosigned by Nancy Fernandez MD at 02/06/2018 2:42 PM CDT * Clarisa Bar RN - 01/21/2018 9:30 AM CDT Results placed in UDS Flowsheet documented in this encounter Plan of Treatment Scheduled Orders Name Type Priority Associated Diagnoses Orde r Schedule Drug screen, urine Lab Routine Other chronic pain Fibromyalgia High risk medication use Expected: 01/21/2018, Expires: 01/21/2019 documented as of this encounter Visit Diagnoses Diagnosis Fibromyalgia- Primary Unspecified myalgia and myositis Other chronic pain Chronic bilateral low back pain without sciatica High risk medication use documented in this encounter Discontinued Medications Medication Sig Discontinue Reason Start Date End Da te ARIPiprazole (ABILIFY) 2 mg tablet Dose adjustment 12/12/2017 01/21/2018 documented as of this encounter Historical Medications * This list may reflect changes made after this encounter. montelukast (SINGULAIR) 10 mg tabletIndications :Seasonal Allergic Rhinitis Take 1 tablet (10 mg total) by mouth nightly 04/13/2017 estradiol-norethi ndrone (ACTIVELLA) 1-0.5 mg per tablet Take 1 tablet by mouth nightly 11/14/2017 zolpidem (AMBIEN) 10 mg tabletIndications :Sleep-Onset Insomnia Take 1 tablet (10 mg total) by mouth nightly ARIPiprazole (ABILIFY) 2 mg tablet 12/12/2017 01/21/2018 alendronate (FOSAMAX) 70 mg tablet 11/02/2017 09/22/2019 cetirizine 10 mg tablet,disintegra ting daily. 04/13/2017 11/19/2018 cholecalciferol (VITAMIN D-3) 2,000 unit tablet TAKE 1 TABLET DAILY.- 1999IU 04/19/2020 meloxicam (MOBIC) 15 mg tablet daily. 07/13/2017 04/22/2018 magnesium oxide 400 mg capsule 250 mg 3 tablets a day 04/19/2020 ibuprofen (ibuprofen) 200 mg tab/cap take 2 twice daily 04/22/2018 omega 4-yne-ckv-fish oil 1,000 mg (120 mg-180 mg) capsule Take 1 capsule by mouth every morning 09/05/2022 acetaminophen-asp irin-caffeine (EXCEDRIN MIGRAINE) 250-250-65 mg per tablet daily. 08/03/[address] (CYMBALTA) 60 mg capsule daily. 07/18/2018 calcium carb,glucon-vitam in D2 500 mg calcium -200 unit tablet daily 04/19/2020 ARIPiprazole (ABILIFY) 5 mg tablet Take 5 mg by mouth daily 10/26/2020 added in this encounter Care Teams Credentialing Coordinator Relationship Specialty Start Date End Date Felicitas Samuel MD PCP - General 10/13/16 07/19/20 documented as of this encounter
--- OUTSIDE RECORDS SUMMARY | 2024-07-28 01:10 | XMS_ITS | Encounter Summary ---
Author Organization [facility] Facility Care Team Providers Care Evp Head [employer] Experience Strategy Name Role Phone Unavailable Primary Care Provider Unavailabl e Encounter Details Date Type Department Care Team (Latest Contact Info) Description 09/02/2012 2:50 PM RECOVERY COLLECTOR - 07/29/2013 11:59 PM [facility] Hospital Encounter [facility] Volodymyr Araya Other chronic pain; Myalgia and myositis; Lumbosacral spondylosis without myelopathy; Degeneration of lumbar or lumbosacral intervertebral disc; Cervical spondylosis without myelopathy; Degeneration of cervical intervertebral disc; Pain in joint, shoulder region Social History Tobacco Use Types Packs/Day Years Used Date Smoking Tobacco: Never Comments Unknown Sex and Gender Information Value Date Recorded Sex Assigned at Not on file Legal Sex Female 2:03 AM RECOVERY COLLECTOR Gender Identity Female 08/26/2020 6:26 AM RECOVERY COLLECTOR Sexual Orientation Straight 08/26/2020 6: 26 AM RECOVERY COLLECTOR documented as of this encounter Medications at [...] intervertebral disc Pain in joint, shoulder region documented in this encounter
--- OUTSIDE RECORDS SUMMARY | 2024-07-28 01:10 | XMS_ITS | Encounter Summary ---
Author Organization [facility] Healthcare Address [address] [facility] [place] [address] Care Team Providers Care Supervisor Maintenance And Custodians Name Role Phone Felicitas Samuel MD Primary Care Provider + Encounter Details Date Type Department Care Team (Late st Contact Info) Description 06/03/2018 2:25 PM SLUBBER OPERATOR - 06/03/2018 3:00 PM SLUBBER OPERATOR Surgery [facility] [address] [facility] [address] [place] [address] Nancy Fernandez MD [address] [facility] [phone] [place], [place] [id number] LMBB / Injection Facet Lumbo Sacral 1 Level 95236 Surgery Details Date/Time Status Location OR Service Patient Class Case Class Case Type Trauma Case? 06/03/2018 2:25 PM Posted [facility] Pain Management Procedure Center Procedure D Pain Management Outpatient Elective Panel 1 Procedure LRB Anes Op Region Wound Class Comments LMBB / Injection Facet Lumbo Sacral 1 Level 00160 N/A Local Spine Lumbar Class I - Clean Surgeon Surgeon Role Service Panel Nancy Fernandez MD Primary Pain Management 1 Wojciech Maldonado MD Pain Management 1 documented in this encounter Social History Tobacco Use Types Packs/Day Years Used Date Smoking Tobacco: Never Smokeless Tobacco: Never Alcohol Use Standard Drinks/Week Comments No 0 (1 standard drink = 0.6 oz pur e alcohol) Comments No Sex and Gender Information Value Date Recorded Sex Assigned at Not on file Legal Sex Female 2:03 AM SLUBBER OPERATOR Gender Identity Female 08/26/2020 6:26 AM SLUBBER OPERATOR Sexual Orientation Straight 08/26/2020 6: 26 AM SLUBBER OPERATOR documented as of this encounter Last Filed Vital Signs Vital Sign Reading Time Taken Comments Blood Pressure 118/85 06/03/2018 2:50 PM SLUBBER OPERATOR Pulse 93 06/03/2018 2:50 PM SLUBBER OPERATOR Temperature - - Respiratory Rate 13 06/03/2018 2:50 PM SLUBBER OPERATOR Oxygen Saturation 97% 06/03/2018 2:50 PM SLUBBER OPERATOR Inhaled Oxygen Concentration - - Weight - - Height - - Body Mass Index - - documented in this encounter Discharge Instructions * Discharge Instructions* Idania Self, RN - 06/03/2018 2:44 PM SLUBBER OPERATOR MEDICATIONS: Continue current home medications with change(s) [...] until:this evening REFERRALS: Physical Therapy [] [facility] ([phone]) [] [facility] ([employer]aded [employer]ag[facility]) [] [facility] ([phone]) [] Other: Behavior Medicine [] Pain Psychologist, [facility] Management Center ([phone]) Diagnostic Tests: EDUCATION provided on the following: [...] procedure, please call the Pain Management Center [phone] ([phone]) (8am-4pm) If you need urgent attention after 5 pm and weekends: Call the [facility] at [phone] and ask for the Pain Service doctor front desk representative. BER OPERATOR documented in this encounter Medications at [...] daily. 90 tablet 3 04/22/2018 06/18/2018 omega 9-vcy-jpu-fish oil 1,000 mg (120 mg-180 mg) capsule Take 1 capsule by mouth every morning 09/05/2022 bvqf-qkvt-tgb-yuc -bxv-zvsc-dxj (TUMERSAID) [phone] mg tablet daily 04/19/2020 turmeric root extract 500 mg capsuleIndication s:OTC Take 1,350 mg by mouth every morning 09/05/2022 documented as of this encounter Discharge Disposition Disposition Code Departure Means Destination Discharge to home or self care documented in this encounter Miscellaneous Notes * Op Note - Nancy Fernandez MD - 06/03/2018 2:25 PM CST SURGEON: Nancy Fernandez M.D. ROLLER ENGRAVER SURGEON: ROLLER ENGRAVER SURGEON: Wojciech Maldonado MD. NAME OF PROCEDURE: [...] DISPOSITION: Patient discharged home in stable condition. BER OPERATOR * Perioperative Nursing Note - Clarisa Chavez RN - 06/03/2018 1:55 PM SLUBBER OPERATOR Pt states her son is driving her home today. Name is Roberto Carlos Santiago. Son is waiting in the waiting room. BER OPERATOR documented in this encounter Plan of Treatment Not on file documented as of this encounter Procedures Procedure Name Priority Date/Time Associated Diagnosis Comments IR DISC ASPIRATION IP Routine 06/03/2018 2: 41 PM SLUBBER OPERATOR INJECTION PARABERTEBRAL FACET LUMBAR/SACRAL 1 LEVEL 06/03/2018 2:24 PM SLUBBER OPERATOR Lumbar facet arthropathy documented in this encounter Results * IR Fluoro Guidance for Spine Needle Placement (06/03/2018 2:41 PM SLUBBER OPERATOR) Narrative [facility] - 06/03/2018 2:47 PM SLUBBER OPERATOR The images from this study are [...] (5 mg/mL) injection As needed, Starting on 06/03/18 at 1432, Intra-Op Given 06/03/2018 2:32 PM SLUBBER OPERATOR 8 mL lidocaine PF (XYLOCAINE) 10 mg/mL (1 %) preservative free injection As needed, Starting on 06/03/18 at 1432, Intra-Op Given 06/03/2018 2:32 PM SLUBBER OPERATOR 8 mL documented in this encounter Active and Recently Administered Medications Due to Daylight Saving Time, this section may contain times in both CDT and SLUBBER OPERATOR. PRN Medication Order 06/01/2018 2018 06/03/2018 bupivacaine (MARCAINE) 0.5 % (5 mg/mL) injection (CANCELED) As needed, Starting on 06/03/18 at 1432, Intra-Op 1432 (Given - Provid er: Nancy Fernandez MD) lidocaine PF (XYLOCAINE) 10 mg/mL (1 %) preservative free injection (CANCELED) As needed, Starting on 06/03/18 [...] 06/03/2018 documented in this encounter Care Teams Supervisor Maintenance And Custodians Relationship Specialty Start Date End Date Felicitas Samuel MD PCP - General 10/13/16 07/19/20 documented as of this encounter
--- OUTSIDE RECORDS SUMMARY | 2024-07-28 01:10 | XMS_ITS | Encounter Summary ---
Author Organization [facility] Facility Care Team Providers Care Metal Drill Operator Name Role Phone Unavailable Primary Care Provider Unavailabl e Encounter Details Date Type Department Care Team (Late st Contact Info) Description 09/22/2014 7:02 PM CABIN FURNISHINGS INSTALLER - 07/29/2015 11:59 PM [facility] Hospital Encounter [facility] Nancy Mary MD [address] [facility] [phone] [place] [address] Other chronic pain; Fibromyalgia; Other specific arthropathies, not elsewhere classified, other specified site; Spondylosis of lumbosacral region without myelopathy or radiculopathy; Other intervertebral disc degeneration, lumbosacral region; Spondylosis of cervical region without myelopathy or radiculopathy; Other cervical disc degeneration, unspecified cervical region; Pain in left shoulder; Pain in right shoulder; Sacrococcygeal disorders, not elsewhere classified; Insomnia; Major depressive disorder, single episode; Tension-type headache, not intractable; half-way current use of non-steroidal anti-inflammatories (NSAID) Social History Tobacco Use Types Packs/Day Years Used Date Smoking Tobacco: Never Comments Unknown Sex and Gender Information Value Date Recorded Sex Assigned at Not on file Legal Sex Female 2:03 AM CABIN FURNISHINGS INSTALLER Gender Identity Female 08/26/2020 6:26 AM CABIN FURNISHINGS INSTALLER Sexual Orientation Straight 08/26/2020 6: 26 AM CABIN FURNISHINGS INSTALLER documented as of this encounter Medications at [...] encounter Visit Diagnoses Diagnosis Other chronic pain Fibromyalgia Unspecified myalgia and myositis Other specific arthropathies, not elsewhere classified, other specified site Spondylosis of lumbosacral region without myelopathy or radiculopathy Other intervertebral disc degeneration, lumbosacral region Spondylosis of cervical region without myelopathy or radiculopathy Other cervical disc degeneration, unspecified cervical region Pain in left shoulder Pain in right shoulder Sacrococcygeal disorders, not elsewhere classified Insomnia Insomnia, unspecified Major depressive disorder, single episode Major depressive disorder, single episode, unspecified Tension-type headache, not intractable rn long term care current use of non-steroidal anti-inflammatories (NSAID) documented in this encounter
--- OUTSIDE RECORDS SUMMARY | 2024-07-28 01:10 | XMS_ITS | Encounter Summary ---
Author Organization [facility] Facility Care Team Providers Care Word Processor Operator Name Role Phone Unavailable Primary Care Provider Unavailabl e Encounter Details Date Type Department Care Team (Late st Contact Info) Description 11/26/2015 3:47 PM CDT - 03/21/2016 11:59 PM T Hospital Encounter [facility] Nancy Mary MD [address] [facility] [phone] [place] [address] Other chronic pain; Other specific arthropathies, not elsewhere classified, other specified site; Spondylosis of lumbar region without myelopathy or radiculopathy; Other spondylosis, lumbosacral region; Other intervertebral disc degeneration, lumbosacral region; Other cervical disc degeneration, unspecified cervical region; Lesion of sciatic nerve; Sacrococcygeal disorders, not elsewhere classified; Insomnia; Major depressive disorder, single episode (CMS/HCC); Fibromyalgia; Tension-type headache, not intractable Social History Tobacco Use Types Packs/Day Years Used Date Smoking Tobacco: Never Comments Unknown Sex and Gender Information Value Date Recorded Sex Assigned at Not on file Legal Sex Female 2:03 AM LIEUTENANT COLONEL Gender Identity Female 08/26/2020 6:26 AM LIEUTENANT COLONEL Sexual Orientation Straight 08/26/2020 6: 26 AM LIEUTENANT COLONEL documented as of this encounter Medications at [...] encounter Visit Diagnoses Diagnosis Other chronic pain Other specific arthropathies, not elsewhere classified, other specified site Spondylosis of lumbar region without myelopathy or radiculopathy Other spondylosis, lumbosacral region Other intervertebral disc degeneration, lumbosacral region Other cervical disc degeneration, unspecified cervical region Lesion of sciatic nerve Sacrococcygeal disorders, not elsewhere classified Insomnia Insomnia, unspecified Major depressive disorder, single episode Major depressive disorder, single episode, unspecified Fibromyalgia Unspecified myalgia and myositis Tension-type headache, not intractable documented in this encounter
--- OUTSIDE RECORDS SUMMARY | 2024-07-28 01:10 | XMS_ITS | Encounter Summary ---
Author Organization [facility] Healthcare Address [address] [facility] [place] [address] Care Team Providers Care J2Ee Application Developer Name Role Phone Felicitas Samuel MD Primary Care Provider + Reason for Visit * Reason Comments Back Pain Encounter Details Date Type Department Care Team (Latest Contact Info) Description 06/03/2018 2:00 PM MATHEMATICS LECTURER Procedure visit [facility] [address] [facility] [address] [place], [place] [id number] Nancy Fernandez MD [address] [facility] [phone] [place], [place] [phone] Osteoarthritis of 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 (Primary Dx); Pain of lumbar facet joint; Chronic bilateral [...] on file Legal Sex Female 2:03 AM MATHEMATICS LECTURER Gender Identity Female 08/26/2020 6:26 AM MATHEMATICS LECTURER Sexual Orientation Straight 08/26/2020 6: 26 AM MATHEMATICS LECTURER documented as of this encounter Last Filed Vital Signs Vital Sign Reading Time Taken Comments Blood Pressure 132/87 06/03/2018 1:39 PM MATHEMATICS LECTURER Pulse 100 06/03/2018 1:39 PM MATHEMATICS LECTURER Temperature 36.9 ??C (98.5 ??F) 06/03/2018 1:39 PM CS T Respiratory Rate 16 06/03/2018 1:39 PM MATHEMATICS LECTURER Oxygen Saturation - - Inhaled Oxygen Concentration - - Weight 65.7 kg (144 lb 14.4 oz) 06/03/2018 1:39 PM MATHEMATICS LECTURER Height 172.7 cm (5' 8 ) 06/03/2018 1:39 PM MATHEMATICS LECTURER Body Mass Index 22.03 06/03/2018 1:39 PM MATHEMATICS LECTURER documented in this encounter Discharge Disposition Disposition Code Departure Means Destination Discharge to home or self care documented in this encounter Progress Notes * Wojciech Maldonado MD - 06/03/2018 2:00 PM CST Patient Name: Katrina Camarena : [...] the night. Analgesics: Baclofen 10 mg QHS [place] 7.5/325 mg Cymbalta 60 mg qd (managed [...] Prescriptions No medications on file Previous Medications EVORXCLUCHSOG-GINXILD-GXPDTLCW (EXCEDRIN MIGRAINE) 250-250-65 MG PER TABLET daily. [...] Provider: Joaquín Beckman MD Notes: -- OMEGA 9-JRY-FCP-FISH OIL 1,000 MG (120 MG-180 MG) CAPSULE daily Authorizing Provider: Joqauín Beckman MD Notes: -- MKGY-SRDK-LLU-RMP-MLT-FIEJ-HOR (TUMERSAID) [phone] MG TABLET Take by mouth. Authorizing Provider: [...] Normal respiratory effort MUSCULOSKELETAL EXAMINATION: Gait normal. [id number] SPINE: Mild TTP across lumbosacral spine, negative [...] M.D. Fellow, Pain Management, Department of Anesthesiology [facility], [facility] 06/03/2018 3:54 PM Cosigned by Nancy Fernandez MD at 06/03/2018 4:42 PM MATHEMATICS LECTURER EMATICS LECTURER EMATICS LECTURER Associated attestation - Nancy Fernandez MD - 06/03/2018 4:42 PM MATHEMATICS LECTURER I have seen and examined the patient. I agree with the findings and plan of care as documented in the resident's note.. documented in this encounter Plan of Treatment Not on file documented as of this encounter Visit Diagnoses Diagnosis Osteoarthritis of 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- Primary Pain of lumbar facet joint Chronic bilateral low back pain without sciatica documented in this encounter Historical Medications * This list may reflect changes made after this encounter. ascorbic acid (VITAMIN C) 1,000 mg tabletIndications :Vitamin C Deficiency Take 1 tablet (1,000 mg total) by mouth every morning turmeric root extract 500 mg capsuleIndication s:OTC Take 1,350 mg by mouth every morning 09/05/2022 fexofenadine (EILEEN) 180 mg tablet Take 180 mg by mouth daily. 04/19/[address] (CYMBALTA) 30 mg capsule 05/29/2018 07/18/2018 added in this encounter Care Teams J2Ee Application Developer Relationship Specialty Start Date End Date Felicitas Samuel MD PCP - General 10/13/16 07/19/20 documented as of this encounter
--- OUTSIDE RECORDS SUMMARY | 2024-07-28 01:10 | XMS_ITS | Encounter Summary ---
Author Organization [facility] Healthcare Address [address] [place] [address] Care Team Providers Care Geopolitics Teacher Name Role Phone Felicitas Samuel MD Primary Care Provider + Encounter Details Date Type Department Care Team (Late st Contact Info) Description 06/18/2018 Orders Only [facility] [place] [facility] [address] [facility] [address] [place] [address] Nancy Fernandez MD [address] [facility] [phone] [place] [address] Pain of lumbar facet joint; Chronic bilateral low back pain with right-sided sciatica; Pain of right hip joint Social History Tobacco Use Types Packs/Day Years Used Date Smoking Tobacco: Never Smokeless Tobacco: Never Alcohol Use Standard Drinks/Week Comments No 0 (1 standard drink = 0.6 oz pur e alcohol) Comments No Sex and Gender Information Value Date Recorded Sex Assigned at Not on file Legal Sex Female 2:03 AM PERSONAL LINES INSURANCE ADVISOR Gender Identity Female 08/26/2020 6:26 AM PERSONAL LINES INSURANCE ADVISOR Sexual Orientation Straight 08/26/2020 6: 26 AM PERSONAL LINES INSURANCE ADVISOR documented as of this encounter Ordered Prescriptions Prescription Sig Dispense Quantity Refills Last Filled Start Date End Date meloxicam (MOBIC) 15 mg tabletIndications: Osteoarthritis Take 1 tablet (15 mg total) by mouth daily. 90 tablet 3 06/18/2018 06/10/2019 HYDROcodone-acetam inophen (NORCO) 7.5-325 mg per tabletIndications: Pain Take 1 tablet by mouth 3 (three) times a day. As need for pain 90 tablet 06/18/2018 07/12/2018 documented in this encounter Plan of Treatment Not on file documented as of this encounter Visit Diagnoses Diagnosis Pain of lumbar facet joint Chronic bilateral low back pain with right-sided sciatica Pain of right hip joint documented in this encounter Discontinued Medications Medication Sig Discontinue Reason Start Date End Da te HYDROcodone-acetaminophe n (NORCO) 7.5-325 mg per tabletIndications:Pain Take 1 tablet by mouth 3 (three) times a day. As need for pain Reorder 05/16/2018 06/18/2018 meloxicam (MOBIC) 15 mg tabletIndications:Osteoa rthritis Take 1 tablet (15 mg total) by mouth daily. Reorder 04/22/2018 06/18/2018 documented as of this encounter Care Teams Geopolitics Teacher Relationship Specialty Start Date End Date Felicitas Samuel MD PCP - General 10/13/16 07/19/20 documented as of this encounter
--- OUTSIDE RECORDS SUMMARY | 2024-07-28 01:10 | XMS_ITS | Encounter Summary ---
Author Organization [facility] Healthcare Address [address] [place] [address] Care Team Providers Care Clinical Education Manager Name Role Phone Felicitas Samuel MD Primary Care Provider + Reason for Referral * Diagnostic Imaging (Routine) - Closed Specialty Diagnoses / Procedures Referred By Contac t Referred To Contact Diagnoses Chronic bilateral low back pain with right-sided sciatica Pain of right hip joint Pain of lumbar facet joint Procedures XR Spine Lumbar Routine W Flex Ext Carolina Valero NP Phone: tel: fax: Center [facility] Referral ID Status Reason Start Date Expiration Date Visits Re quested Visits Authorized [id number] Closed 04/22/2018 11/01/2019 1 1 Reason for Visit * Diagnostic Imaging (Routine) - Closed Specialty Diagnoses / Procedures Referred By Contac t Referred To Contact Diagnoses Chronic bilateral low back pain with right-sided sciatica Pain of right hip joint Pain of lumbar facet joint Procedures XR Spine Lumbar Routine W Flex Ext Carolina Valero NP Phone: tel: fax: [facility] Referral ID Status Reason Start Date Expiration Date Visits Re quested Visits Authorized [id number] Closed 04/22/2018 11/01/2019 1 1 Encounter Details Date Type Department Care Team (Latest Contact Info) Description 04/22/2018 1:33 PM CDT - 04/22/2018 11:59 PM CDT Hospital Encounter [facility] [address] [place] [address] Carolina Valero NP [address] [place] [address] Chronic bilateral low back pain with right-sided sciatica; Pain of right hip joint; Pain of lumbar facet joint Discharge Disposition: Discharge to home or self care Social History Tobacco Use Types Packs/Day Years Used Date Smoking Tobacco: Never Smokeless Tobacco: Never Comments No Sex and Gender Information Value Date Recorded Sex Assigned at Not on file Legal Sex Female 2:03 AM ROLLER COASTER ENGINEER Gender Identity Female 08/26/2020 6:26 AM ROLLER COASTER ENGINEER Sexual Orientation Straight 08/26/2020 6: 26 AM ROLLER COASTER ENGINEER documented as of this encounter Medications at Time of Discharge estradiol-norethi ndrone (ACTIVELLA) 1-0.5 mg per tablet [...] 04/19/[address] (CYMBALTA) 60 mg capsule daily. 07/18/2018 HYDROcodone-aceta minophen (NORCO) 7.5-325 mg per tabletIndications :Pain Take 1 tablet by mouth 3 (three) times a day. As need for pain 90 tablet 04/15/2018 05/09/2018 lidocaine (LIDODERM) 5 % Place 1 patch on the skin daily as needed for pain 07/27/2016 08/03/2020 magnesium oxide 400 mg capsule 250 mg 3 tablets a day 04/19/2020 meloxicam (MOBIC) 15 mg tabletIndications :Osteoarthritis Take 1 tablet (15 mg total) by mouth daily. 90 tablet 3 04/22/2018 06/18/2018 omega 4-jzh-csr-fish oil 1,000 mg (120 mg-180 mg) capsule Take 1 capsule by mouth every morning 09/05/2022 ldkc-mlxg-rbw-yuc -jir-szmz-mqz (TUMERSAID) [phone] mg tablet daily 04/19/2020 documented as of this encounter Discharge Disposition Disposition Code Departure Means Destination Discharge to home or self care documented in this encounter Plan of Treatment Not on file documented as of this encounter Procedures Procedure Name Priority Date/Time Associated Diagnosis Comments XR LUMBAR SPINE ROUTINE W FLEX EXT Schedule Routine, Read Routine (OP Routine) 04/22/2018 1:59 PM CDT Chronic bilateral low back pain with right-sided sciatica Pain of right hip joint Pain of lumbar facet joint documented in this encounter Results * XR Spine Lumbar Routine W Flex Ext (04/22/2018 1:59 PM CDT) Anatomical Region Laterality Modality L-spine N/A Computed Radiogr aphy 04/22/2018 2:42 PM CDT Impressions 04/22/2018 5:21 PM CDT Mild lumbar rotatory levoscoliosis with severe degenerative disc disease at L4-L5. Electronically signed by: Eddie Acuña M.D. Narrative 04/22/2018 5:21 PM CDT EXAMINATION: [...] disc disease at L4-L5. Electronically signed by: Eddei Acuña M.D. Carolina Valero MEDICAL SCIENTIST IMG XR PROCEDURES Final Resul t documented in this encounter Visit Diagnoses Diagnosis Chronic bilateral low back pain with right-sided sciatica Pain of right hip joint Pain of lumbar facet joint documented in this encounter Care Teams Clinical Education Manager Relationship Specialty Start Date End Date Felicitas Samuel MD PCP - General 10/13/16 07/19/20 documented as of this encounter
--- OUTSIDE RECORDS SUMMARY | 2024-07-28 01:10 | XMS_ITS | Encounter Summary ---
Author Organization [facility] Healthcare Address [address] [facility] [place] [address] Care Team Providers Care Poultry Boner Name Role Phone Felicitas Samuel MD Primary Care Provider + Reason for Visit * Reason Onset Date Comments CALL BACK 03/12/2018 Encounter Details Date Type Department Care Team (Late st Contact Info) Description 03/12/2018 Telephone [facility] [address] [facility] [address] [place], [place] [id number] Nancy Fernandez MD [address] [facility] [address] [facility] [phone] [place], [place] [id number] CALL BACK Social History Tobacco Use Types Packs/Day Years Used Date Smoking Tobacco: Never Smokeless Tobacco: Never Comments Unknown Sex and Gender Information Value Date Recorded Sex Assigned at Not on file Legal Sex Female 2:03 AM COMMAND AND CONTROL OFFICER Gender Identity Female 08/26/2020 6:26 AM COMMAND AND CONTROL OFFICER Sexual Orientation Straight 08/26/2020 6: 26 AM COMMAND AND CONTROL OFFICER documented as of this encounter Miscellaneous Notes * Telephone Encounter - Adamaris Lan RN - 03/12/2018 3:18 PM CDT LM for pt to call back. documented in this encounter Plan of Treatment Not on file documented as of this encounter Visit Diagnoses Not on filedocumented in this encounter Care Teams Poultry Boner Relationship Specialty Start Date End Date Felicitas Samuel MD PCP - General 10/13/16 07/19/20 documented as of this encounter
--- OUTSIDE RECORDS SUMMARY | 2024-07-28 01:10 | XMS_ITS | Encounter Summary ---
Author Organization [facility] Healthcare Address [address] [facility] [place] [address] Care Team Providers Care Computer Customer Support Specialist Name Role Phone Felicitas Samuel MD Primary Care Provider + Encounter Details Date Type Department Care Team (Latest Contact Info) Description 01/25/2017 1:16 PM CDT - 01/25/2017 11:59 PM T Hospital Encounter [facility] [phone] Nancy Fernandez MD [phone] [place] [address] Discharge Disposition: Discharge to home or self care Social History Tobacco Use Types Packs/Day Years Used Date Smoking Tobacco: Never Comments Unknown Sex and Gender Information Value Date Recorded Sex Assigned at Not on file Legal Sex Female 2:03 AM SENIOR DATA INTEGRATION DEVELOPER Gender Identity Female 08/26/2020 6:26 AM SENIOR DATA INTEGRATION DEVELOPER Sexual Orientation Straight 08/26/2020 6: 26 AM SENIOR DATA INTEGRATION DEVELOPER documented as of this encounter Medications at [...] on filedocumented in this encounter Care Teams Computer Customer Support Specialist Relationship Specialty Start Date End Date Felicitas Samuel MD PCP - General 10/13/16 07/19/20 documented as of this encounter
--- OUTSIDE RECORDS SUMMARY | 2024-07-28 01:10 | XMS_ITS | Encounter Summary ---
Author Organization [facility] Facility Care Team Providers Care Loan Workout Officer Name Role Phone Unavailable Primary Care Provider Unavailabl e Encounter Details Date Type Department Care Team (Late st Contact Info) Description 07/27/2016 10:33 AM DRY BOX OPERATOR - 07/27/2016 11:59 PM DRY BOX OPERATOR Hospital Encounter [facility] BORIS Fernandez, Nancy Harvey MD [phone] [place] [address] Other chronic pain; Fibromyalgia; Arthropathy; Other spondylosis, lumbosacral region; Other intervertebral disc degeneration, lumbosacral region; Other cervical disc degeneration, unspecified cervical region; Lesion of sciatic nerve; Insomnia; Major depressive disorder, single episode; Other spondylosis, cervical region; Headache; Pain in left shoulder; Pain in right shoulder Social History Tobacco Use Types Packs/Day Years Used Date Smoking Tobacco: Never Comments Unknown Sex and Gender Information Value Date Recorded Sex Assigned at Not on file Legal Sex Female 2:03 AM DRY BOX OPERATOR Gender Identity Female 08/26/2020 6:26 AM DRY BOX OPERATOR Sexual Orientation Straight 08/26/2020 6: 26 AM DRY BOX OPERATOR documented as of this encounter Medications [...] 07/27/2016 08/03/2020 documented as of this encounter Plan of Treatment Not on file documented as of this encounter Visit Diagnoses Diagnosis Other chronic pain Fibromyalgia Unspecified myalgia and myositis Arthropathy Unspecified arthropathy, site unspecified Other spondylosis, lumbosacral region Other intervertebral disc degeneration, lumbosacral region Other cervical disc degeneration, unspecified cervical region Lesion of sciatic nerve Insomnia Insomnia, unspecified Major depressive disorder, single episode Major depressive disorder, single episode, unspecified Other spondylosis, cervical region Headache Pain in left shoulder Pain in right shoulder documented in this encounter
--- OUTSIDE RECORDS SUMMARY | 2024-07-28 01:11 | XMS_ITS | Encounter Summary ---
Author Organization [facility] Facility Care Team Providers Care Master Automotive Glass Technician Name Role Phone Unavailable Primary Care Provider Unavailabl e Encounter Details Date Type Department Care Team (Late st Contact Info) Description 10/01/2006 4:39 PM NOVELTY CANDY MAKER - 07/29/2007 11:59 PM NOVELTY CANDY MAKER Hospital Encounter [facility] Volodymyr Araya Social History Tobacco Use Types Packs/Day Years Used Date Smoking Tobacco: Never Assessed Comments Unknown Sex and Gender Information Value Date Recorded Sex Assigned at Not on file Legal Sex Female 2:03 AM NOVELTY CANDY MAKER Gender Identity Female 08/26/2020 6:26 AM NOVELTY CANDY MAKER Sexual Orientation Straight 08/26/2020 6: 26 AM NOVELTY CANDY MAKER documented as of this encounter Medications at Time of Discharge baclofen (LIORESAL) 10 mg tablet 20 mg 4 (four) times a day Takes 1-2 tabs QID 06/19/2007 01/04/2021 documented as of this encounter Plan of Treatment Not on file documented as of this encounter Visit Diagnoses Not on filedocumented in this encounter
--- OUTSIDE RECORDS SUMMARY | 2024-07-28 01:11 | XMS_ITS | Encounter Summary ---
Author Organization [facility] Facility Care Team Providers Care Ceramic Engineering Professor Name Role Phone Unavailable Primary Care Provider Unavailabl e Encounter Details Date Type Department Care Team (Late st Contact Info) Description 09/23/2007 - 09/23/2007 11:59 PM OVERNIGHT ASSOCIATE Hospital Encounter [facility] CLINCONWojciech Jones MD [address] [facility] [facility] [address] [place] [id number] Social History Tobacco Use Types Packs/Day Years Used Date Smoking Tobacco: Never Assessed Comments Unknown Sex and Gender Information Value Date Recorded Sex Assigned at Not on file Legal Sex Female 2:03 AM OVERNIGHT ASSOCIATE Gender Identity Female 08/26/2020 6:26 AM OVERNIGHT ASSOCIATE Sexual Orientation Straight 08/26/2020 6: 26 AM OVERNIGHT ASSOCIATE documented as of this encounter Medications at [...]
--- OUTSIDE RECORDS SUMMARY | 2024-07-28 01:11 | XMS_ITS | Encounter Summary ---
Author Organization [facility] Facility Care Team Providers Care Coroner Technician Name Role Phone Unavailable Primary Care Provider Unavailabl e Encounter Details Date Type Department Care Team (Latest Contact Info) Description 07/01/2008 - 07/01/2008 11:59 PM WIRELESS SALES CONSULTANT Hospital Encounter [facility] Volodymyr Araya Degeneration of cervical intervertebral disc; Disturbance of skin sensation Social History Tobacco Use Types Packs/Day Years Used Date Smoking Tobacco: Never Assessed Comments Unknown Sex and Gender Information Value Date Recorded Sex Assigned at Not on file Legal Sex Female 2:03 AM WIRELESS SALES CONSULTANT Gender Identity Female 08/26/2020 6:26 AM WIRELESS SALES CONSULTANT Sexual Orientation Straight 08/26/2020 6: 26 AM WIRELESS SALES CONSULTANT documented as of this encounter Medications at [...] as of this encounter Visit Diagnoses Diagnosis Degeneration of cervical intervertebral disc Disturbance of skin sensation documented in this encounter
--- OUTSIDE RECORDS SUMMARY | 2024-07-28 01:11 | XMS_ITS | Encounter Summary ---
Author Organization [facility] Facility Care Team Providers Care Loom Operator Name Role Phone Unavailable Primary Care Provider Unavailabl e Encounter Details Date Type Department Care Team (Late st Contact Info) Description 04/18/2007 - 04/18/2007 11:59 PM CDT Hospital Encounter [facility] Volodymyr Araya Social History Tobacco Use Types Packs/Day Years Used Date Smoking Tobacco: Never Assessed Comments Unknown Sex and Gender Information Value Date Recorded Sex Assigned at Not on file Legal Sex Female 2:03 AM COMMERCIAL GLAZIER Gender Identity Female 08/26/2020 6:26 AM COMMERCIAL GLAZIER Sexual Orientation Straight 08/26/2020 6: 26 AM COMMERCIAL GLAZIER documented as of this encounter Plan of Treatment Not on file documented as of this encounter Visit Diagnoses Not on filedocumented in this encounter
--- OUTSIDE RECORDS SUMMARY | 2024-07-28 01:11 | XMS_ITS | Encounter Summary ---
Author Organization [facility] Facility Care Team Providers Care Driver Wheelchair Name Role Phone Unavailable Primary Care Provider Unavailabl e Encounter Details Date Type Department Care Team (Latest Contact Info) Description 10/24/2010 5:03 PM CDT - 07/29/2011 11:59 PM GROUND WATER TECHNICIAN Hospital Encounter [facility] Volodymyr Araya Other chronic pain; Cervicalgia; Low back pain; Lumbosacral spondylosis without myelopathy; Degeneration of lumbar or lumbosacral intervertebral disc; Cervical spondylosis without myelopathy; Other depressive disorder; Insomnia; Degeneration of cervical intervertebral disc Social History Tobacco Use Types Packs/Day Years Used Date Smoking Tobacco: Never Assessed Comments Unknown Sex and Gender Information Value Date Recorded Sex Assigned at Not on file Legal Sex Female 2:03 AM GROUND WATER TECHNICIAN Gender Identity Female 08/26/2020 6:26 AM GROUND WATER TECHNICIAN Sexual Orientation Straight 08/26/2020 6: 26 AM GROUND WATER TECHNICIAN documented as of this encounter Medications at [...] encounter Visit Diagnoses Diagnosis Other chronic pain Cervicalgia Low back pain Lumbago Lumbosacral spondylosis without myelopathy Degeneration of lumbar or lumbosacral intervertebral disc Cervical spondylosis without myelopathy Other depressive disorder Insomnia Insomnia, unspecified Degeneration of cervical intervertebral disc documented in this encounter
--- OUTSIDE RECORDS SUMMARY | 2024-07-28 01:11 | XMS_ITS | Encounter Summary ---
Author Organization [facility] Facility Care Team Providers Care Cooling Pipe Inspector Name Role Phone Unavailable Primary Care Provider Unavailabl e Encounter Details Date Type Department Care Team (Late st Contact Info) Description 08/08/2007 2:52 PM SNAKER TRACTOR DRIVER - 07/29/2008 11:59 PM SNAKER TRACTOR DRIVER Hospital Encounter [facility] Volodymyr Araya Other chronic pain Social History Tobacco Use Types Packs/Day Years Used Date Smoking Tobacco: Never Assessed Comments Unknown Sex and Gender Information Value Date Recorded Sex Assigned at Not on file Legal Sex Female 2:03 AM SNAKER TRACTOR DRIVER Gender Identity Female 08/26/2020 6:26 AM SNAKER TRACTOR DRIVER Sexual Orientation Straight 08/26/2020 6: 26 AM SNAKER TRACTOR DRIVER documented as of this encounter Medications at [...] encounter Visit Diagnoses Diagnosis Other chronic pain documented in this encounter
--- OUTSIDE RECORDS SUMMARY | 2024-07-28 01:11 | XMS_ITS | Encounter Summary ---
Author Organization [facility] Facility Care Team Providers Care Truck Crane Operator Name Role Phone Unavailable Primary Care Provider Unavailabl e Encounter Details Date Type Department Care Team (Late st Contact Info) Description 12/27/2007 - 12/27/2007 11:59 PM CDT Hospital Encounter [facility] Volodymyr Araya Social History Tobacco Use Types Packs/Day Years Used Date Smoking Tobacco: Never Assessed Comments Unknown Sex and Gender Information Value Date Recorded Sex Assigned at Not on file Legal Sex Female 2:03 AM PLASTIC MIXER Gender Identity Female 08/26/2020 6:26 AM PLASTIC MIXER Sexual Orientation Straight 08/26/2020 6: 26 AM PLASTIC MIXER documented as of this encounter Medications [...]
--- OUTSIDE RECORDS SUMMARY | 2024-07-28 01:11 | XMS_ITS | Encounter Summary ---
Author Organization [facility] Facility Care Team Providers Care Cardiac Cath Tech Name Role Phone Unavailable Primary Care Provider Unavailabl e Encounter Details Date Type Department Care Team (Late st Contact Info) Description 08/19/2008 4:24 PM LEAN FACILITATOR - 07/29/2009 11:59 PM LEAN FACILITATOR Hospital Encounter [facility] Volodymyr Araya Lumbosacral spondylosis without myelopathy; Other chronic pain; Sciatica Social History Tobacco Use Types Packs/Day Years Used Date Smoking Tobacco: Never Assessed Comments Unknown Sex and Gender Information Value Date Recorded Sex Assigned at Not on file Legal Sex Female 2:03 AM LEAN FACILITATOR Gender Identity Female 08/26/2020 6:26 AM LEAN FACILITATOR Sexual Orientation Straight 08/26/2020 6: 26 AM LEAN FACILITATOR documented as of this encounter Medications at [...] as of this encounter Visit Diagnoses Diagnosis Lumbosacral spondylosis without myelopathy Other chronic pain Sciatica documented in this encounter
--- OUTSIDE RECORDS SUMMARY | 2024-07-28 01:11 | XMS_ITS | Encounter Summary ---
Author Organization [facility] Facility Care Team Providers Care Patient Services Clerk Name Role Phone Unavailable Primary Care Provider Unavailabl e Encounter Details Date Type Department Care Team (Latest Contact Info) Description 08/11/2009 4:13 PM RIB CUTTER - 07/29/2010 11:59 PM [facility] Hospital Encounter [facility] Volodymyr Araya Myalgia and myositis; Cervical spondylosis without myelopathy; Degeneration of lumbar or lumbosacral intervertebral disc Social History Tobacco Use Types Packs/Day Years Used Date Smoking Tobacco: Never Assessed Comments Unknown Sex and Gender Information Value Date Recorded Sex Assigned at Not on file Legal Sex Female 2:03 AM RIB CUTTER Gender Identity Female 08/26/2020 6:26 AM RIB CUTTER Sexual Orientation Straight 08/26/2020 6: 26 AM RIB CUTTER documented as of this encounter Medications [...] as of this encounter Visit Diagnoses Diagnosis Myalgia and myositis Unspecified myalgia and myositis Cervical spondylosis without myelopathy Degeneration of lumbar or lumbosacral intervertebral disc documented in this encounter
--- OUTSIDE RECORDS SUMMARY | 2024-07-28 01:25 | XMS_ITS | Encounter Summary ---
Author Organization [facility] Address [address] [place] [address] Care Team Providers Care Programming Internship Name Role Phone Unavailable Primary Care Provider Unavailabl e Encounter Details Date Type Department Care Team (Late st Contact Info) Description 10/12/2023 External Device Data ST[facility] ABSTRACTION Provider, Abstract NO ADDRESS ON FILE Social History Tobacco Use Types Packs/Day Years Used Date Smoking Tobacco: Never Assessed Sex and Gender Information Value Date Recorded Sex Assigned at Not on file Gender Identity Not on file Sexual Orientation Not on file documented as of this encounter Plan of Treatment Upcoming Encounters Date Type Department Care Team (Late st Contact Info) Description 08/07/2024 1:30 PM WARDROBE MISTRESS Ancillary Procedure [facility] [address] [place] [phone] Sera Morley MD [address] [place] [address] 08/07/2024 2:00 PM WARDROBE MISTRESS Ancillary Procedure [facility] [address] [place] [address] Sera Morley MD [address] [place] [address] documented as of this encounter Visit Diagnoses Not on filedocumented in this encounter
--- OUTSIDE RECORDS SUMMARY | 2024-07-28 01:25 | XMS_ITS | Encounter Summary ---
Author Organization [facility] Address [address] [place] [address] Care Team Providers Care Laser Systems Engineer Name Role Phone Unavailable Primary Care Provider Unavailabl e Encounter Details Date Type Department Care Team (Late st Contact Info) Description 02/12/2024 External Device Data STL ABSTRACTION Provider, Abstract [...] st Contact Info) Description 08/07/2024 1:30 PM E COMMERCE MANAGER Ancillary Procedure [facility] [address] [place] [address] Sera Morley MD [address] [place] [address] 08/07/2024 2:00 PM E COMMERCE MANAGER Ancillary Procedure [facility] [address] [place] [address] Sera Morley MD [address] [place] [address] documented as of this encounter Visit Diagnoses Not on filedocumented in this encounter
--- OUTSIDE RECORDS SUMMARY | 2024-07-28 01:25 | XMS_ITS | Encounter Summary ---
Author Organization [facility] Address [address] [place] [address] Care Team Providers Care Auto Heater Mechanic Name Role Phone Unavailable Primary Care Provider Unavailabl e Encounter Details Date Type Department Care Team (Late st Contact Info) Description 08/24/2023 External Device Data STL ABSTRACTION Provider, Abstract [...] st Contact Info) Description 08/07/2024 1:30 PM ASSISTED LIVING HOME DIRECTOR Ancillary Procedure [facility] [address] [place] [address] Sera Morley MD [address] [place] [address] 08/07/2024 2:00 PM ASSISTED LIVING HOME DIRECTOR Ancillary Procedure [facility] [address] [place] [address] Sera Morley MD [address] [place] [address] documented as of this encounter Visit Diagnoses Not on filedocumented in this encounter
--- OUTSIDE RECORDS SUMMARY | 2024-07-28 01:25 | XMS_ITS | Encounter Summary ---
Author Organization [facility] Address [address] [place] [address] Care Team Providers Care Shirt Folder Name Role Phone Unavailable Primary Care Provider Unavailabl e Encounter Details Date Type Department Care Team (Late st Contact Info) Description 07/24/2023 External Device Data STL ABSTRACTION Provider, Abstract [...] st Contact Info) Description 08/07/2024 1:30 PM DRAFTER COMMERCIAL Ancillary Procedure [facility] [address] [place] [address] Sera Morley MD [address] [place] [address] 08/07/2024 2:00 PM DRAFTER COMMERCIAL Ancillary Procedure [facility] [address] [place] [address] Sera Morley MD [address] [place] [address] documented as of this encounter Visit Diagnoses Not on filedocumented in this encounter
--- OUTSIDE RECORDS SUMMARY | 2024-07-28 01:25 | XMS_ITS | Encounter Summary ---
Author Organization [facility] Address [address] [place] [address] Care Team Providers Care Training Instructor Name Role Phone Unavailable Primary Care Provider [...] st Contact Info) Description 08/07/2024 1:30 PM SPOT CLEANER Ancillary Procedure [facility] [address] [place] [address] Sera Morley MD [address] [place] [address] 08/07/2024 2:00 PM SPOT CLEANER Ancillary Procedure [facility] [address] [place] [address] Sera Morley MD [address] [place] [address] documented as of this encounter Visit Diagnoses Not on filedocumented in this encounter
--- OUTSIDE RECORDS SUMMARY | 2024-07-28 01:25 | XMS_ITS | Encounter Summary ---
Author Organization [facility] Address [address] [place] [address] Care Team Providers Care Building Specialist Name Role Phone Unavailable Primary Care Provider Unavailabl e Encounter Details Date Type Department Care Team (Late st Contact Info) Description 03/18/2024 External Device Data STL ABSTRACTION Provider, Abstract [...] st Contact Info) Description 08/07/2024 1:30 PM MILLER HELPER Ancillary Procedure [facility] [address] [place] [address] Sera Morley MD [address] [place] [address] 08/07/2024 2:00 PM MILLER HELPER Ancillary Procedure [facility] [address] [place] [address] Sera Morley MD [address] [place] [address] documented as of this encounter Visit Diagnoses Not on filedocumented in this encounter
--- OUTSIDE RECORDS SUMMARY | 2024-07-28 01:25 | XMS_ITS | Encounter Summary ---
Author Organization [facility] Address [address] [place] [address] Care Team Providers Care Employee Development Director Name Role Phone Unavailable Primary Care Provider Unavailabl e Encounter Details Date Type Department Care Team (Late st Contact Info) Description 07/11/2023 External Device Data STL ABSTRACTION Provider, Abstract [...] st Contact Info) Description 08/07/2024 1:30 PM TODDLER GUIDE Ancillary Procedure [facility] [address] [place] [address] Sera Morley MD [address] [place] [address] 08/07/2024 2:00 PM TODDLER GUIDE Ancillary Procedure [facility] [address] [place] [address] Sera Morley MD [address] [place] [address] documented as of this encounter Visit Diagnoses Not on filedocumented in this encounter
--- OUTSIDE RECORDS SUMMARY | 2024-07-28 01:25 | XMS_ITS | Encounter Summary ---
Author Organization [facility] Address [address] [place] [address] Care Team Providers Care Railway Patrol Officer Name Role Phone Unavailable Primary Care [...] st Contact Info) Description 08/07/2024 1:30 PM PRINCIPAL ANDROID DEVELOPER Ancillary Procedure [facility] [address] [place] [address] Sera Morley MD [address] [place] [address] 08/07/2024 2:00 PM PRINCIPAL ANDROID DEVELOPER Ancillary Procedure [facility] [address] [place] [address] Sera Morley MD [address] [place] [address] documented as of this encounter Visit Diagnoses Not on filedocumented in this encounter
--- OUTSIDE RECORDS SUMMARY | 2024-07-28 01:25 | XMS_ITS | Encounter Summary ---
Author Organization [facility] Address [address] [place] [address] Care Team Providers Care Rollway Worker Name Role Phone Unavailable Primary Care Provider Unavailabl e Encounter Details Date Type Department Care Team (Late st Contact Info) Description 04/01/2024 External Device Data STL ABSTRACTION Provider, Abstract [...] st Contact Info) Description 08/07/2024 1:30 PM MOTION PICTURE PROJECTIONIST Ancillary Procedure [facility] [address] [place] [address] Sera Morley MD [address] [place] [address] 08/07/2024 2:00 PM MOTION PICTURE PROJECTIONIST Ancillary Procedure [facility] [address] [place] [address] Sera Morley MD [address] [place] [address] documented as of this encounter Visit Diagnoses Not on filedocumented in this encounter
--- OUTSIDE RECORDS SUMMARY | 2024-07-28 01:25 | XMS_ITS | Encounter Summary ---
Author Organization [facility] Address [address] [place] [address] Care Team Providers Care Upper Caser Name Role Phone Unavailable Primary Care Provider Unavailabl e Encounter Details Date Type Department Care Team (Late st Contact Info) Description 07/15/2024 External Device Data STL ABSTRACTION Provider, Abstract [...] st Contact Info) Description 08/07/2024 1:30 PM NARROW FABRIC LOOM FIXER Ancillary Procedure [facility] [address] [place] [address] Sera Morley MD [address] [place] [address] 08/07/2024 2:00 PM NARROW FABRIC LOOM FIXER Ancillary Procedure [facility] [address] [place] [address] Sera Morley MD [address] [place] [address] documented as of this encounter Visit Diagnoses Not on filedocumented in this encounter
--- OUTSIDE RECORDS SUMMARY | 2024-07-28 01:25 | XMS_ITS | Encounter Summary ---
Author Organization [facility] Address [address] [place] [address] Care Team Providers Care Shipping Clerk Name Role Phone Unavailable Primary Care Provider Unavailabl e Encounter Details Date Type Department Care Team (Late st Contact Info) Description 08/25/2023 External Device Data STL ABSTRACTION Provider, Abstract [...] st Contact Info) Description 08/07/2024 1:30 PM VICE PRESIDENT OF ADVERTISING Ancillary Procedure [facility] [address] [place] [address] Sera Morley MD [address] [place] [address] 08/07/2024 2:00 PM VICE PRESIDENT OF ADVERTISING Ancillary Procedure [facility] [address] [place] [address] Sera Morley MD [address] [place] [address] documented as of this encounter Visit Diagnoses Not on filedocumented in this encounter
--- OUTSIDE RECORDS SUMMARY | 2024-07-28 01:25 | XMS_ITS | Encounter Summary ---
Author Organization [facility] Address [address] [place] [address] Care Team Providers Care Mental Health Orderly Name Role Phone Unavailable Primary Care Provider Unavailabl e Encounter Details Date Type Department Care Team (Late st Contact Info) Description 10/02/2023 External Device Data STL ABSTRACTION Provider, Abstract [...] st Contact Info) Description 08/07/2024 1:30 PM PRODUCT ANALYST Ancillary Procedure [facility] [address] [place] [address] Sera Morley MD [address] [place] [address] 08/07/2024 2:00 PM PRODUCT ANALYST Ancillary Procedure [facility] [address] [place] [address] Sera Morley MD [address] [place] [address] documented as of this encounter Visit Diagnoses Not on filedocumented in this encounter
--- OUTSIDE RECORDS SUMMARY | 2024-07-28 01:25 | XMS_ITS | Encounter Summary ---
Author Organization [facility] Address [address] [place] [address] Care Team Providers Care Manhole Stripper Name Role Phone Unavailable Primary Care Provider Unavailabl e Encounter Details Date Type Department Care Team (Late st Contact Info) Description 05/13/2024 External Device Data STL ABSTRACTION Provider, Abstract [...] st Contact Info) Description 08/07/2024 1:30 PM CLOTH WINDER MACHINE OPERATOR Ancillary Procedure [facility] [address] [place] [address] Sera Morley MD [address] [place] [address] 08/07/2024 2:00 PM CLOTH WINDER MACHINE OPERATOR Ancillary Procedure [facility] [address] [place] [address] Sera Morley MD [address] [place] [address] documented as of this encounter Visit Diagnoses Not on filedocumented in this encounter
--- OUTSIDE RECORDS SUMMARY | 2024-07-28 01:25 | XMS_ITS | Clinical Summary ---
Author Organization [facility] Address [address] [place] [address] Care Team Providers Care Press Pipe Inspector Name Role Phone Unavailable Primary Care Provider Unavailabl e Encounters Date Type Department Care Team Description 07/15/2024 External Device Data STL ABSTRACTION Provider, Abstract 07/08/2024 2:00 PM PACKING ROOM SUPERVISOR Ancillary Procedure [facility] [address] [place] [address] Sera Morley MD Encounter for screening mammogram for malignant neoplasm of breast 05/13/2024 External Device Data STL ABSTRACTION Provider, Abstract 04/29/2024 External Device Data STL ABSTRACTION Provider, Abstract from Last 3 Months Social History Tobacco Use Types Packs/Day Years Used Date Smoking Tobacco: Never Assessed Sex and Gender Information Value Date Recorded Sex Assigned at Not on file Gender Identity Not on file Sexual Orientation Not on file Plan of Treatment Upcoming Encounters Date Type Department Care Team (Late st Contact Info) Description 08/07/2024 1:30 PM PACKING ROOM SUPERVISOR Ancillary Procedure [facility] [address] [place] [address] Sera Morley MD [address] [place] [address] 08/07/2024 2:00 PM PACKING ROOM SUPERVISOR Ancillary Procedure [facility] [address] [place] [address] Sera Morley MD [address] [place] [address] Health Maintenance Due Date Last Done Comments CERVICAL CANCER SCREENING 1990 COLORECTAL SCREENING 2005 Colorectal Cancer Screening 2005 FIT-DNA Q 3 years 2005 FIT/FOBT Q 1 year 2005 Flex Sig/CT Colonography Q 5 years 2005 ZOSTER VACCINE (1 of 2) 2010 INFLUENZA VACCINE (#1) 2024 , 05/04/2020, 05/05/2019, Additional history exists BREAST CANCER SCREENING 07/08/2025 07/08/2024, 05/16 DTAP/TDAP/TD VACCINES (2 - Td or Tdap) 04/18/2028 04/18/2018 RSV VACCINE (60+ or ) (1 - 1-dose 75+ series) 2035 PNEUMOCOCCAL VACCINE 0-64 YEARS Aged Out No longer eligible based on patient's age to complete this topic Procedures Procedure Name Priority Date/Time Associated Diagnosis Comments MAMMO 3D CARLOS SCREEN BILAT W OR WO CAD Routine 07/08/2024 2:29 PM PACKING ROOM SUPERVISOR Encounter for screening mammogram for malignant neoplasm of breast from Last 3 Months Results * MAMMO 3D CARLOS SCREEN BILAT W OR WO CAD (07/08/2024 2:29 PM PACKING ROOM SUPERVISOR) Anatomical Region Laterality Modality Breast Bilateral Mammography 07/08/2024 2:31 PM PACKING ROOM SUPERVISOR Impressions 07/08/2024 2:48 PM PACKING ROOM SUPERVISOR IMPRESSION: ?? Waxing and waning cysts of the left breast. Clustered microcalcifications at the upper outer left breast. No mammographic evidence for malignancy of the right breast. OVERALL FINAL ASSESSMENT: ??BI-RADS CATEGORY 0: Incomplete, needs additional imaging evaluation. Recommendation: Magnification views of the left breast. Narrative 07/08/2024 2:48 PM PACKING ROOM SUPERVISOR BILATERAL SCREENING DIGITAL MAMMOGRAM WITH 3D TOMOSYNTHESIS AND CAD DATE: 07/08/2024 2:29 PM HISTORY: Annual screening study. COMPARISON: Mammograms back to 2018 TECHNIQUE: CC and MLO views of the breasts were obtained digitally and reviewed with CAD. ??Tomosynthesis was performed in all projections. BREAST COMPOSITION: Heterogeneously dense, which may obscure small masses. ?? FINDINGS: There are waxing and waning cysts of the left breast. At the upper outer left breast, there are clustered developing microcalcifications when compared with prior studies back to 2019 and magnification views would be recommended. On the right, there are more scattered punctate microcalcifications which have not changed. No spiculated masses or areas of architectural distortion are noted. There is a tissue marker at the inferior left breast. Sera Molrey MD MAMMO ORDERABLES from Last 3 Months
--- OUTSIDE RECORDS SUMMARY | 2024-07-28 01:25 | XMS_ITS | Encounter Summary ---
Author Organization [facility] Address [address] [place] [address] Care Team Providers Care Oil Derrick Operator Name Role Phone Unavailable Primary Care Provider Unavailabl e Encounter Details Date Type Department Care Team (Late st Contact Info) Description 01/29/2024 External Device Data STL ABSTRACTION Provider, Abstract [...] st Contact Info) Description 08/07/2024 1:30 PM INSIDE PHONE SALES Ancillary Procedure [facility] [address] [place] [address] Sera Morley MD [address] [place] [address] 08/07/2024 2:00 PM INSIDE PHONE SALES Ancillary Procedure [facility] [address] [place] [address] Sera Morley MD [address] [place] [address] documented as of this encounter Visit Diagnoses Not on filedocumented in this encounter
--- OUTSIDE RECORDS SUMMARY | 2024-07-28 01:25 | XMS_ITS | Encounter Summary ---
Author Organization [facility] Address [address] [place] [address] Care Team Providers Care Control Board Operator Name Role Phone Unavailable Primary Care Provider Unavailabl e Encounter Details Date Type Department Care Team (Late st Contact Info) Description 12/18/2023 External Device Data STL ABSTRACTION Provider, Abstract [...] st Contact Info) Description 08/07/2024 1:30 PM PROTOTYPER Ancillary Procedure [facility] [address] [place] [address] Sera Morley MD [address] [place] [address] 08/07/2024 2:00 PM PROTOTYPER Ancillary Procedure [facility] [address] [place] [address] Sera Morley MD [address] [place] [address] documented as of this encounter Visit Diagnoses Not on filedocumented in this encounter
--- OUTSIDE RECORDS SUMMARY | 2024-07-28 01:25 | XMS_ITS | Encounter Summary ---
Author Organization [facility] Address [address] [place] [address] Care Team Providers Care Devops Architect Name Role Phone Unavailable Primary Care Provider Unavailabl e Encounter Details Date Type Department Care Team (Late st Contact Info) Description 03/04/2024 External Device Data STL ABSTRACTION Provider, Abstract [...] st Contact Info) Description 08/07/2024 1:30 PM RESAW MACHINE OPERATOR Ancillary Procedure [facility] [address] [place] [address] Sera Morley MD [address] [place] [address] 08/07/2024 2:00 PM RESAW MACHINE OPERATOR Ancillary Procedure [facility] [address] [place] [address] Sera Morley MD [address] [place] [address] documented as of this encounter Visit Diagnoses Not on filedocumented in this encounter
--- OUTSIDE RECORDS SUMMARY | 2024-07-28 01:25 | XMS_ITS | Encounter Summary ---
Author Organization [facility] Address [address] [place] [address] Care Team Providers Care Trim Setter Name Role Phone Unavailable Primary Care Provider [...] st Contact Info) Description 08/07/2024 1:30 PM POLISHER IMPLANT Ancillary Procedure [facility] [address] [place] [address] Sera Morley MD [address] [place] [address] 08/07/2024 2:00 PM POLISHER IMPLANT Ancillary Procedure [facility] [address] [place] [address] Sera Morley MD [address] [place] [address] documented as of this encounter Visit Diagnoses Not on filedocumented in this encounter
--- OUTSIDE RECORDS SUMMARY | 2024-07-28 01:25 | XMS_ITS | Encounter Summary ---
Author Organization [facility] Address [address] [place] [address] Care Team Providers Care Printing Services Coordinator Name Role Phone Unavailable Primary Care Provider Unavailabl e Encounter Details Date Type Department Care Team (Late st Contact Info) Description 03/25/2024 External Device Data STL ABSTRACTION Provider, Abstract [...] st Contact Info) Description 08/07/2024 1:30 PM B OPERATOR Ancillary Procedure [facility] [address] [place] [address] Sera Morley MD [address] [place] [address] 08/07/2024 2:00 PM B OPERATOR Ancillary Procedure [facility] [address] [place] [address] Sera Morley MD [address] [place] [address] documented as of this encounter Visit Diagnoses Not on filedocumented in this encounter
--- OUTSIDE RECORDS SUMMARY | 2024-07-28 01:25 | XMS_ITS | Encounter Summary ---
Author Organization [facility] Address [address] [place] [address] Care Team Providers Care Filtrose Crusher Name Role Phone Unavailable Primary Care Provider Unavailabl e Reason for Visit * Radiology Services (Routine) - Open Specialty Diagnoses / Procedures Referred By Hadley cloud Referred To Contact Diagnoses Encounter for screening mammogram for malignant neoplasm of breast Procedures MAMMO 3D CARLOS SCREEN BILAT W OR WO CAD CHG SCREENING MAMMOGRAPHY BI 2-VIEW BREAST INC CAD CHG SCREENING DIGITAL BREAST TOMOSYNTHESIS BI Sera Morley MD [address] [place] [address] Referral ID Status Reason Start Date Expiration Date Visits Re quested Visits Authorized [id number] Open 06/24/2024 07/25/2025 1 1 Encounter Details Date Type Department Care Team (Late Contact Info) Description 07/08/2024 2:00 PM TICKET TAKER FERRYBOAT Ancillary Procedure [facility] [address] [place] [address] Sera Morley MD [address] [place] [address] Encounter for screening mammogram for malignant neoplasm of breast Social History Tobacco Use Types Packs/Day Years Used Date Smoking Tobacco: Never Assessed Sex and Gender Information Value Date Recorded Sex Assigned at Not on file Gender Identity Not on file Sexual Orientation Not on file documented as of this encounter Plan of Treatment Upcoming Encounters Date Type Department Care Team (Late Contact Info) Description 08/07/2024 1:30 PM TICKET TAKER FERRYBOAT Ancillary Procedure [facility] [address] [place], [place] [phone] Sera Morley MD [address] [place] [address] 08/07/2024 2:00 PM TICKET TAKER FERRYBOAT [facility]illary [facility] [address], [place] [address] Sera Morley MD [address] [place] [address] documented as of this encounter Procedures Procedure Name Priority Date/Time Associated Diagnosis Comments MAMMO 3D CARLOS SCREEN BILAT W OR WO CAD Routine 07/08/2024 2:29 PM TICKET TAKER FERRYBOAT Encounter for screening mammogram for malignant neoplasm of breast documented in this encounter Results * MAMMO 3D CARLOS SCREEN BILAT W OR WO CAD (07/08/2024 2:29 PM TICKET TAKER FERRYBOAT) Anatomical Region Laterality Modality Breast Bilateral Mammography 07/08/2024 2:31 PM TICKET TAKER FERRYBOAT Impressions 07/08/2024 2:48 PM TICKET TAKER FERRYBOAT IMPRESSION: ?? Waxing and waning cysts of the left breast. Clustered microcalcifications at the upper outer left breast. No mammographic evidence for malignancy of the right breast. OVERALL FINAL ASSESSMENT: ??BI-RADS CATEGORY 0: Incomplete, needs additional imaging evaluation. Recommendation: Magnification views of the left breast. Narrative 07/08/2024 2:48 PM TICKET TAKER FERRYBOAT BILATERAL SCREENING DIGITAL MAMMOGRAM WITH 3D TOMOSYNTHESIS AND CAD DATE: 07/08/2024 2:29 PM HISTORY: Annual screening study. COMPARISON: Mammograms back to 2019 TECHNIQUE: CC and MLO views of the [...] marker at the inferior left breast. Sera Morley MD MAMMO ORDERABLES documented in this encounter Visit Diagnoses Diagnosis Encounter for screening mammogram for malignant neoplasm of breast Other screening mammogram documented in this encounter
--- OUTSIDE RECORDS SUMMARY | 2024-07-28 01:25 | XMS_ITS | Encounter Summary ---
Author Organization [facility] Address [address] [place] [address] Care Team Providers Care Records Section Supervisor Name Role Phone Unavailable Primary Care Provider Unavailabl e Encounter Details Date Type Department Care Team (Late st Contact Info) Description 04/29/2024 External Device Data STL ABSTRACTION Provider, [...] st Contact Info) Description 08/07/2024 1:30 PM DIATHERMY EQUIPMENT REPAIRER Ancillary Procedure [facility] [address] [place] [address] Sera Morley MD [address] [place] [address] 08/07/2024 2:00 PM DIATHERMY EQUIPMENT REPAIRER Ancillary Procedure [facility] [address] [place] [address] Sera Morley MD [address] [place] [address] documented as of this encounter Visit Diagnoses Not on filedocumented in this encounter
--- OUTSIDE RECORDS SUMMARY | 2024-07-28 01:25 | XMS_ITS | Encounter Summary ---
Author Organization [facility] Address [address] [place] [address] Care Team Providers Care Director Merit System Name Role Phone Unavailable Primary Care Provider Unavailabl e Reason for Visit * Radiology Services (Routine) - Closed Specialty Diagnoses / Procedures Referred By Contac t Referred To Contact Diagnoses Mastodynia Personal history of other specified conditions Mass of breast, unspecified laterality Procedures MAMMO DIAG BILAT 3D CARLOS W OR WO CAD CHG DIAGNOSTIC MAMMOGRAPHY COMPUTER-AIDED DETCJ BI CHG DIGITAL BREAST TOMOSYNTHESIS BILATERAL Stas Aceves PA [address] [place] [address] Referral ID Status Reason Start Date Expiration Date Visits Re quested Visits Authorized [id number] Closed 04/18/2023 05/18/2024 1 1 Encounter Details Date Type Department Care Team (Latest Contact Info) Description 05/16/2023 1:15 PM CDT Ancillary Procedure [facility] [address] [address] Stas Aceves PA [address] [place] [address] Mastodynia; Personal history of other specified conditions; Mass of breast, unspecified laterality Social History Tobacco Use Types Packs/Day Years Used Date Smoking Tobacco: Never Assessed Sex and Gender Information Value Date Recorded Sex Assigned at Not on file Gender Identity Not on file Sexual Orientation Not on file documented as of this encounter Plan of Treatment Upcoming Encounters Date Type Department Care Team (Late st Contact Info) Description 08/07/2024 1:30 PM MATERIAL LISTER Ancillary Procedure [facility] [address], [place] [phone] Sera Morley MD [address] [place] [address] 08/07/2024 2:00 PM MATERIAL LISTER [facility]illary [facility] [address], [place] [address] Sera Morley MD [address] [place] [address] documented as of this encounter Procedures Procedure Name Priority Date/Time Associated Diagnosis Comments MAMMO DIAG BILAT 3D CARLOS W OR WO CAD Routine 05/16/2023 1:48 PM CDT Mastodynia Personal history of other specified conditions Mass of breast, unspecified laterality documented in this encounter Results * MAMMO DIAG BILAT 3D CARLOS W OR WO CAD (05/16/2023 1:48 PM CDT) Anatomical Region Laterality Modality Breast Bilateral Mammography 05/16/2023 1:49 PM CDT Impressions 05/16/2023 2:01 PM CDT : BI-RADS 2, benign findings consistent with bilateral fibrocystic breast disease, left postbiopsy clip and left cluster of ??tiny calcification which is stable now for three years. Annual screening mammography is advised. Narrative 05/16/2023 2:01 PM CDT Bilateral diagnostic mammogram. Comparison is available from 04/27/2022, 04/18/2021, 03/25/2020 and ultrasounds from those dates are also available, there are consistent with the large but simple cysts. CLINICAL HISTORY: Patient is 63-year-old female who is presenting for diagnostic mammogram because the she has bilateral bullous lumps and the right breast lump at 1:00 is sometimes getting bigger and sometimes getting smaller. Evaluate. Upon questioning, patient said that now on the lump in question she does not feel more however she has multiple other lumps. TECHNIQUE: Bilateral CC and MLO images of the breasts are obtained and reviewed this 2-D mammogram and tomosynthesis. FINDINGS: The breast parenchyma is composed of heterogeneously dense fibroglandular tissue which may decrease sensitivity of the study, category C. The left lower central breast, approximately 6:00, there is postbiopsy clip. Bilaterally, there are multiple old there are circumscribed large and smaller masses, many of them, the largest on the right measures 3.5 cm, the largest on the left measures 3 cm. Elsewhere, there is left-sided postbiopsy clip, there are coarse calcifications, there is cluster of calcification within the left upper outer breast, 3 cm from the nipple but it is stable since 2019. Elsewhere, bilaterally, there are no suspicious masses, microcalcifications in clusters, architectural distortions or asymmetric densities. Stas WISDOM MAMMO ORDERABLES documented in this encounter Visit Diagnoses Diagnosis Mastodynia Personal history of other specified conditions Mass of breast, unspecified laterality documented in this encounter
== END 2024-07-21 10:07 | disposition home or self-care (01) ==
PROVIDERS: PCP Family Medicine; Visit Provider Obstetrics & Gynecology Gynecology
PROC: 0U5B8ZZ Destruction of Endometrium, Via Natural or Artificial Opening Endoscopic (ICD-10-PCS; CPT 58563; principal; 2024-07-21 08:15)
DX: N95.0 Postmenopausal bleeding (principal); N84.0 Polyp of corpus uteri; Z87.891 Personal history of nicotine dependence
CPT/HCPCS: 58558; 88305; A9270; J1100; J1885; J2003; J2250; J2405; J2704; J3010; J7120

== ENCOUNTER 2024-09-15 12:28 | Outpatient (CLI) | payer OTHER, SELFPAY ==
--- NOTE | ~2024-09-15 | DEXA_ITS ---
Bone Density Report Name: KATRINA CAMARENA Age: 64 Sex: Female Ethnicity: White Date of : 1960 Indication: postmenopausal; screening for osteoporosis; parental hip fracture; height loss; Referring Provider: MEAGAN MCCORMICK Study: Bone densitometry was performed. Exam Date: September 15, 2024 Accession number: [id number] Bone Density: Region BMD T-score Z-score Classification AP Spine(L1-L4) 1.098 0.5 2.2 Normal Femoral Neck (Left) 0.589 -2.3 -0.9 Osteopenia Total Hip (Left) 0.701 -2.0 -0.8 Osteopenia Femoral Neck (Right) 0.671 -1.6 -0.1 Osteopenia Total Hip (Right) 0.747 -1.6 -0.4 Osteopenia Total Hip Mean 0.724 -1.8 -0.6 Osteopenia World Health Organization criteria for BMD impression classify patients as: Normal (T-score at or above -1.0), Osteopenia (T-score between -1.0 and -2.5), or Osteoporosis (T-score at or below -2.5). 10-year Fracture Risk(1): Major Osteoporotic Fracture 20% Hip Fracture 2.0% Reported Risk Factors: [place] (), Neck BMD=0.589, BMI=23.1, parental fracture (1) FRAX(R) Version 3.08. Fracture probability calculated for an untreated patient. Fracture probability may be lower if the patient has received treatment. Clinical Information Provided by Patient: Parent has had a hip fracture Has used the following medications: Vitamin D, Calcium Patient maximum height was 69 Menopause Age: 53 No regular weight bearing exercise Does not regularly consume dairy products Onset of menses at age 13 Number of children 2 Missed period for more than 6 months in a row Impression: The patient has low bone mass, based on the Left Femoral Neck T-score. The patient has an estimated ten-year risk of hip fracture of 2% and an estimated ten-year risk of major fracture of 20%, based on the WHO FRAX algorithm. The patient has risk factors, including: parental hip fracture. Discussion: BONE DENSITY IS LOW AT ONE OR MORE SKELETAL SITES. THE PATIENT'S BMD AND CLINICAL RISK FACTORS CONTRIBUTE TO THIS PATIENT'S INCREASED RISK OF FRACTURE. This patient's lowest T-score is low at one or more skeletal sites. It meets the World Health Organization's (WHO) criteria for ?low bone mass? (T-score between -1.0 and -2.5). The patient's 10-year risk of a major osteoporotic fracture as calculated by FRAX exceeds the threshold where pharmacological therapy is recommended by the National Osteoporosis Foundation (NOF). However, all treatment decisions require clinical judgment and consideration of individual patient factors, including patient preferences, comorbidities, previous drug use, risk factors not captured in the FRAX model (e.g., frailty, falls, vitamin D deficiency, increased bone turnover, interval significant decline in bone density) and possible under or overestimation of fracture risk by FRAX. The patient should follow a healthful lifestyle (good nutrition with adequate calcium and vitamin D, and appropriate weight-bearing exercise). Follow-Up: Consider a repeat BMD and Vertebral Fracture Assessment (VFA) exam in 2 years or sooner if medically necessary, to reassess this patient's status. Reported by: GATO on 09/15/2024 1:05:00 PM. Reviewed, dictated and finalized at location [facility]
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
--- OUTSIDE RECORDS SUMMARY | 2024-09-15 14:59 | XMS_ITS | Encounter Summary ---
Author Organization [facility] Healthcare Address [address] [facility] [place] [address] Care Team Providers Care Colon And Rectal Surgeon Name Role Phone Felicitas Samuel MD Primary Care Provider + Renana Polanco RN Unavailable Unavailab Rohan Salvador MD Primary Care Provider Peyman Ortega MD Primary Care Provider Sera Morley MD Unavailable [phone] Reason for Visit * Reason Onset Date Comments CALL BACK 03/21/2018 Encounter Details Date Type Department Care Team (Late st Contact Info) Description 03/21/2018 Telephone [facility] [address] [facility] [address] [place] [address] Nancy Fernandez MD [address] [facility] [phone] [place] [address] CALL BACK Social History Tobacco Use Types Packs/Day Years Used Date Smoking Tobacco: Never Smokeless Tobacco: Never Comments Unknown Sex and Gender Information Value Date Recorded Sex Assigned at Not on file Legal Sex Female 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 Gender Identity Female 08/26/2020 6:26 AM HOME HOUSEKEEPER Sexual Orientation Straight 08/26/2020 6: 26 AM HOME HOUSEKEEPER documented as of this encounter Plan of Treatment Not on file documented as of this encounter Visit Diagnoses Not on filedocumented in this encounter Care Teams Colon And Rectal Surgeon Relationship Specialty Start Date End Date Felicitas Samuel MD PCP - General 10/13/16 07/19/20 Rohan Rothman MD [address] [place] [address] PCP - General 07/20/20 05/12/24 Peyman Ortega MD [address] [facility] [address] [place] [address] PCP - General Family Practice 05/13/24 Reanna Polanco RN Registered Nurse 07/07/19 Sera Morley MD [address] [place] [address] Referring Physician Gynecology 08/08/24 documented as of this encounter
--- OUTSIDE RECORDS SUMMARY | 2024-09-15 14:59 | XMS_ITS | Patient Health Record ---
Author Organization [facility] Address [address] [place] [address] Care Team Providers Care Paint Roller Cover Machine Setter Name Role Phone Radha Lundy Unavailable [phone] Migration, Provider Unavailable Unavailable Allergies Allergen (clinical drug ingredient) Drug/Non Drug Allergy documented on EMR Reaction Allergy Type Onset Date Status capsaicin Capsaicin Unknown Drug Allergy Active Decongestant Unknown Drug Allergy Acti ve Results Component Value Reference Range Notes DRUG [...] Start Date End Date Status Lurasidone HCl 80 MG 1 tablet in the evening with food Oral Once a day for 90 days Active Zolpidem Tartrate 10 MG 1 tablet at bedtime as needed Oral Once a day for 30 days Active Metoprolol Succinate ER 25 MG Oral 10/24/2023 Unknown Cymbalta 60 MG 1 capsule Oral Twice daily for 90 days Active Vitamin C 100 MG Oral 10/24/2023 Un known HYDROcodone-Acetamino phen 10-300 MG 1 tablet as needed Oral every 6 hrs 10/24/2023 Unknown Meloxicam 7.5 MG Oral 10/24/2023 Un known Famotidine 10 mg Oral 10/24/2023 Un known Magnesium *Pick strength-form from [employer] for eRX* 10/24/2023 Unknown CALCIUM 600 + D(3) 600 MG-5 MCG (200 UNIT) CAPSULE *Reorder from [employer] for eRx and Interaction Alerts* 10/24/2023 Unknown Singulair 10 MG Oral 10/24/2023 Unk nown Estradiol-Norethindro ne Acet 1-0.5 MG Oral 10/24/2023 Unknown L-Methylfolate 15 MG Oral 10/24/2023 Active Methocarbamol 500 MG Oral 10/24/2023 Unknown Baclofen 10 MG Oral 10/24/2023 Unkn own Social History Tobacco Use: Social History Observation Description Date Details (start date - stop date) Former Smoker NA - NA Sex Assigned At : Social History Observation Description Sex Assigned At Female Household Question Answer Notes Marital status: Tobacco Control (Standard) Question Answer Notes Tobacco use: Former smoker Problems Problem Type SNOMED Code ICD Code Onset Dates Problem Status W/U Status Risk Notes Problem 4531329 Primary insomnia (F51.01) Active confirmed Problem 23441117 CECE (generalized anxiety disorder) (F41.1) Active confirmed Problem 71058265 MDD (major depressive disorder), recurrent severe, 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) Active confirmed Vital Signs Heart Rate 71 /min 10/24/2023 Height-cm 167.64 cm 10/24/2023 Blood pressure diastolic 75 mm Hg 10/24/2023 Weight-kg 65.23 kg 10/24/2023 Height 66.00 in 10/24/2023 Blood pressure systolic 117 mm Hg 10/24/2023 Weight 143.80 lbs 10/24/2023 BMI 23.2 kg/m2 10/24/2023 Encounters Encounter Location Date Provider Diagnosis [facility] [address] [place] [address] 10/24/2023 Radha Lundy Major depressive disorder, recurrent, moderate F33.1 ; Primary insomnia F51.01 and Generalized anxiety disorder F41.1 [facility] [address] [place] [address] 01/03/2024 Radha Kamron MDD (major depressive disorder), recurrent severe, 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 ; CECE (generalized anxiety disorder) F41.1 and Primary insomnia F51.01 [facility] [address] [place] [address] 04/02/2024 Radha Kamron MDD (major depressive disorder), recurrent severe, 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 ; CECE (generalized anxiety disorder) F41.1 and Primary insomnia F51.01 [facility] [address] [place] [address] 08/06/2024 Radha Kamron MDD (major depressive disorder), recurrent severe, 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 ; CECE (generalized anxiety disorder) F41.1 and Primary insomnia F51.01 [facility] [address] [place] [address] 09/03/2024 Radha Kamron MDD (major depressive disorder), recurrent severe, 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 ; CECE (generalized anxiety disorder) F41.1 and Primary insomnia F51.01 [facility] [address] [place] [address] 12/15/2023 Provider Migration [facility], [facility] [address] [place] [address] 12/16/2023 Provider Migration [facility], [facility] [address] [place] [address] 01/01/2024 Radha Kamron [facility], [facility] [address] [place] [address] 01/16/2024 Radha Kamron Primary insomnia F51.01 [facility] [address] [place] [address] 04/30/2024 Radha Kamron MDD (major depressive disorder), recurrent severe, 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 [facility] [address] [place] [address] 05/02/2024 Radha Kamron Primary insomnia F51.01 [facility] [address] [place] [address] 06/28/2024 Radha Kamron MDD (major depressive disorder), recurrent severe, 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 [facility] [address] [place] [address] 07/31/2024 Radha Kamron CECE (generalized anxiety disorder) F41.1 [facility] [address] [place] [address] 07/31/2024 [facility] [address] [place] [address] 08/01/2024 Radhaallan Lundy CECE (generalized anxiety disorder) F41.1 [facility] [address] [facility] [address] [place] [address] 08/24/2024 Radhaallan Lundy Primary insomnia F51.01 [place] [address] [facility] [address] [facility] [address] [place] [address] 08/25/2024 Radha Kamron [facility] [address] [facility] [address] [place] [address] 09/03/2024 Radha Kamron [facility] [address] [facility] [address] [facility] [address] [place] [address] 09/08/2024 Radhaallan Lundy MDD (major depressive disorder), recurrent severe, 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 Assessments Encounter Date Diagnosis (ICD Code) Assessment Notes Treatment Notes Treatment Clinical Notes Section Notes 08/01/2024 CECE (generalized anxiety disorder) (ICD-10 - F41.1) 08/06/2024 MDD (major depressive disorder), recurrent severe, without psychosis (ICD-10 - F33.2) 08/24/2024 Primary insomnia (ICD-10 - F51.01) 01/16/2024 Primary insomnia (ICD-10 - F51.01) 04/30/2024 MDD (major depressive disorder), recurrent severe, without psychosis (ICD-10 - F33.2) 05/02/2024 Primary insomnia (ICD-10 - F51.01) 06/28/2024 MDD (major depressive disorder), recurrent severe, without psychosis (ICD-10 - F33.2) 07/31/2024 CECE (generalized anxiety disorder) (ICD-10 - F41.1) 09/03/2024 MDD (major depressive disorder), recurrent severe, [...] common with first generation antipsychotics) and more. 09/08/2024 MDD (major depressive disorder), recurrent severe, without psychosis (ICD-10 - F33.2) 04/02/2024 MDD (major depressive disorder), recurrent severe, without psychosis (ICD-10 - F33.2) 01/03/2024 MDD (major depressive disorder), recurrent severe, without psychosis (ICD-10 - F33.2) 10/24/2023 Major depressive disorder, recurrent, moderate (ICD-10 - F33.1) 10/24/2023 Generalized anxiety disorder (ICD-10 - F41.1) 10/24/2023 Primary insomnia (ICD-10 - F51.01) 04/02/2024 CECE (generalized anxiety disorder) (ICD-10 - F41.1) 01/03/2024 CECE (generalized anxiety disorder) (ICD-10 - F41.1) 08/06/2024 CECE (generalized anxiety disorder) (ICD-10 - F41.1) 09/03/2024 CECE (generalized anxiety disorder) (ICD-10 - F41.1) SSRI/SNRI side effects discussed including but not limited to, gastric upset, nausea, vomiting, diarrhea and/or constipation, weight changes, sexual side effects including loss of libido, increased suicidal thoughts/behaviors in children and young adults, and serotonin syndrome. 04/02/2024 Primary insomnia (ICD-10 - F51.01) 01/03/2024 Primary insomnia (ICD-10 - F51.01) 09/03/2024 Primary insomnia (ICD-10 - F51.01) Discussed risk of falls, do not take together with pain medication due to risk of respiratory depression, confusion, fall risk. 08/06/2024 Primary insomnia (ICD-10 - F51.01) 01/03/2024 Other [...] report checked and consistent with prescription history. 08/06/2024 Other Increase latuda to 80mg daily for depression Patient educated on all medications including potential benefits, side effects, risks. Educated on proper dosing schedule and importance of compliance. [place] report checked and consistent with prescription history, no controlled substance prescriptions from other providers. -Assessment and treatment plan reviewed with patient. -Compliance with treatment plan importance discussed. -Discussed the risks/benefits of this medication -Discussed medication side effects. -Contact office if symptoms worsen. -Discussed that it can take up to 6-8 weeks to see full therapeutic effects of psychotropic medications. -Crisis prevention hotline 988. 09/03/2024 Other Continue current medications, refills sent in. Patient educated on all medications including potential benefits, side effects, risks. Educated on proper dosing schedule and importance of compliance. [place] report checked and consistent with prescription history, no controlled substance prescriptions from other providers. --discussed zolpidem to go to physcial pharmacy and not mail order -Assessment and treatment plan reviewed with patient. -Compliance with treatment plan importance discussed. -Discussed the risks/benefits of this medication -Discussed medication side effects. -Contact office if symptoms worsen. -Discussed that it can take up to 6-8 weeks to see full therapeutic effects of psychotropic medications. -Crisis prevention hotline 988. Plan Of Treatment Next Appt Details Provider Name:Radha Fowler Kamron, 10/30/2024 11:00:00 AM, [address] [facility] [address] [facility] [address], [place], [address], Insurance Providers Payer Name Payer Address Payer Phone Subscriber Number Group Number Insured Name Patient Relationship to Insured Coverage Start Date Coverage End Date [employer] [place] [address] [place] [phone] [id number] KATRINA CAMARENA Self - patient is the insured Medical (General) History Medical History History ICD Code Problems: Generalized anxiety disorder Moderate recurrent major depression Primary insomnia , Surgical History Surgery Date(Month/Year) Endometrial ablation (20304) cervical fusion 08/09/2022
--- OUTSIDE RECORDS SUMMARY | 2024-09-15 14:59 | XMS_ITS | Clinical Summary ---
Author Organization [facility] Address [address] [facility] [place] [address] Care Team Providers Care Powdered Sugar Pulverizer Operator Name Role Phone Peyman Ortega MD Primary Care Provider Source Comments [facility],non-[facility] Affiliates and Associated Physician Practices is amultiple site organization consisting of ambulatory clinics and hospital sitesin [place] and [place]. This disclosure is being madepursuant to the Care Everywhere program and may not contain all information available regarding this patient. Last updated 18.[facility] Allergies Active Allergy Reactions Criticality Noted Date [...] 4 times daily 10/23/2023 Active HYDROcodone-acetamino phen ([place]) 7.5-325 MG tablet Take 1 (one) tablet [...] (08/15/2023): Added automatically from request for surgery [id number] Chronic use of opiate drug for therapeutic purpo se 11/19/2018 08/15/2023 Depression 09/29/2015 08/15/2023 Arthralgia of hip 09/29/2013 08/15/2023 Fibromyalgia 06/21/2010 08/15/2023 Generalized osteoarthritis 06/21/201008/15 Encounters Date Type Department Care Team Description 06/24/2024 2:00 PM LOCOMOTIVE ELECTRICIAN Office Visit [facility] - DIRECTOR FACILITIES MAINTENANCE [address] [place] [phone] Valentina Hamm MD Lichen sclerosus et atrophicus of the vulva (Primary Dx) 06/24/2024 Travel from Last 3 Months Immunizations Name Administration [...] Comments Blood Pressure 130/76 06/24/2024 1:40 PM LOCOMOTIVE ELECTRICIAN Pulse - - Temperature 37 C (98.6 F) 04/22/2024 3:16 PM CDT Respiratory Rate - - Oxygen Saturation - - Inhaled Oxygen Concentration - - Weight 66.9 kg (147 lb 6.4 oz) 06/24/2024 1:40 P M LOCOMOTIVE ELECTRICIAN Height 167.6 cm (5' 6 ) 06/24/2024 1:40 PM LOCOMOTIVE ELECTRICIAN Body Mass Index 23.79 06/24/2024 1:40 PM LOCOMOTIVE ELECTRICIAN Plan of Treatment Upcoming Encounters Date Type Department Care Team (Late st Contact Info) Description 12/10/2024 10:50 AM CDT Office Visit [facility] - DIRECTOR FACILITIES MAINTENANCE [address] [place] [address] Valentina Hamm MD [address] [facility] [address] [place] [address] Health Maintenance Due Date Last [...] 05/29/1978 DTAP/TDAP/TD VACCINES (1 - Tdap) 1979 PNEUMOCOCCAL VACCINE 50+ (1 of 1 - PCV) 2010 ZOSTER VACCINE (1 of 2) 2010 COVID-19 VACCINE ( season) 2024 05/12/2023, 04/15/2022, 11/06/2021, Additional history exists INFLUENZA VACCINE (#1) 2024 , 04/28/2022, 04/15/2022, Additional history exists DEPRESSION SCREENING 07/30/2024 MAMMOGRAM 05/16/2025 05/16/2023 Respiratory Syncytial Virus (RSV) [...] patient's age to complete this topic MENINGOCOCCAL (Group B) VACCINE Aged Out No longer eligible based on patient's age to complete this topic MENINGOCOCCAL VACCINE Aged Out No terence willa eligible based on patient's age to complete this topic PNEUMOCOCCAL VACCINE Aged Out No long er eligible based on patient's age to complete this topic Care Teams Powdered Sugar Pulverizer Operator Relationship Specialty Start Date End Date Peyman Ortega MD [address] [facility] [address] [place] [address] PCP - General Family Medicine 04/22/24
--- OUTSIDE RECORDS SUMMARY | 2024-09-15 14:59 | XMS_ITS | Encounter Summary ---
Author Organization [facility] Healthcare Address [address] [place] [address] Care Team Providers Care Liberal Arts And Humanities Chair Name Role Phone Reanna Polanco RN Unavailable Unavail Rohan Salvador MD Primary Care Provider Peyman Ortega MD Primary Care Provider Sera Morley MD Unavailable [phone] Encounter Details Date Type Department Care Team (Late st Contact Info) Description 11/04/2020 Telephone [facility] [address] [place] [address] Nancy Fernandez MD [phone] [place] [address] Social History Tobacco Use Types [...] file Legal Sex Female 2:03 AM HAND POLISHER Gender Identity Female 08/26/2020 6:26 AM HAND POLISHER Sexual Orientation Straight 08/26/2020 6: 26 AM HAND POLISHER documented as of this encounter Plan of Treatment Not on file documented as of this encounter Goals Goal Patient Goal Type Associated Problems Recent Progress Patient-Stated? Author CCM Chronic Pain Care Plan Chronic Care Management No change(09/09 8:32 AM HAND POLISHER) No Bessy Mancuso RN Note: Problem: Chronic Pain Goals: 1. Minimize further functional decline 2. Maximize quality of life 3. Control pain Strategies: - Activity/exercise program recommendation - Conservative stepwise pain medicine strategy with multi-disciplinary approach - Recommend healthy lifestyle strategies and compensatory methods as needed documented as of this encounter Visit Diagnoses Not on filedocumented in this encounter Care Teams Liberal Arts And Humanities Chair Relationship Specialty Start Date End Date Rohan Rothman MD [address] [place] [address] PCP - General 07/20/20 05/12/24 Peyman Ortega MD [address] [facility] [address] [place], [place] [id number] PCP - General Family Practice 05/13/24 Reanna Polanco, RN Registered Nurse 07/07/19 Sera Morley MD [address] [facility] [address] [place], [place] [phone] Referring Physician Gynecology 08/08/24 documented as of this encounter
--- OUTSIDE RECORDS SUMMARY | 2024-09-15 14:59 | XMS_ITS | Encounter Summary ---
Author Organization [facility] Healthcare Address [address] [facility] [place] [address] Care Team Providers Care Environmental Technology Professor Name Role Phone Felicitas Samuel MD Primary Care Provider + Reanna Polanco RN Unavailable Unavailab Rohan Salvador MD Primary Care Provider Peyman Ortega MD Primary Care Provider Sera Morley MD Unavailable [phone] Reason for Visit * Reason Onset Date Comments Prior Auth 06/11/2019 Celecoxib 200mg Encounter Details Date Type Department Care Team (Late st Contact Info) Description 06/11/2019 Telephone [facility] [address] [facility] [address] [place] [address] Nancy Fernandez MD [address] [facility] [phone] [place] [address] Prior Auth (Celecoxib 200mg) Social History Tobacco Use Types Packs/Day Years Used Date Smoking Tobacco: Never Smokeless Tobacco: Never Alcohol Use Standard Drinks/Week Comments No 0 (1 standard drink = 0.6 oz pur e alcohol) Comments No Sex and Gender Information Value Date Recorded Sex Assigned at Not on file Legal Sex Female 2:03 AM VAN DRIVER Gender Identity Female 08/26/2020 6:26 AM VAN DRIVER Sexual Orientation Straight 08/26/2020 6: 26 AM VAN DRIVER documented as of this encounter Plan of Treatment Not on file documented as of this encounter Goals Goal Patient Goal Type Associated Problems Recent Progress Patient-Stated? Author CCM Chronic Pain Care Plan Chronic Care Management No change(09/09 8:32 AM VAN DRIVER) No Bessy Mancuso RN Note: Problem: Chronic Pain Goals: 1. Minimize further functional decline 2. Maximize quality of life 3. Control pain Strategies: - Activity/exercise program recommendation - Conservative stepwise pain medicine strategy with multi-disciplinary approach - Recommend healthy lifestyle strategies and compensatory methods as needed documented as of this encounter Visit Diagnoses Not on filedocumented in this encounter Care Teams Environmental Technology Professor Relationship Specialty Start Date End Date Felicitas Samuel MD PCP - General 10/13/16 07/19/20 Rohan Rothman MD [address] [place] [address] PCP - General 07/20/20 05/12/24 Peyman Ortega MD [address] [facility] [address] [place] [address] PCP - General Family Practice 05/13/24 Reanna Polanco RN Registered Nurse 07/07/19 Sera Morley MD [address] [facility] [address] [place], [place] [address] Referring Physician Gynecology 08/08/24 documented as of this encounter
--- OUTSIDE RECORDS SUMMARY | 2024-09-15 14:59 | XMS_ITS | Clinical Summary ---
Author Organization [facility] Address [address] [place] [address] Care Team Providers Care Envelope Stuffer Name Role Phone Reanna Polanco RN Unavailable Unavailab Peyman Carvajal MD Primary Care Provider Sera Morley MD Unavailable [phone] Allergies Active Allergy Reactions Criticality Noted Date Comments Adhesive Rash,Muscle pain,Urticaria Medium 09/09/2024 Athletic tape Capsaicin Other (See comments) Low 2024 intolerable [...] (two) times a day 04/22/20 24 Active methocarbamoL (ROBAXIN) 500 mg tablet Take 2 tablets (1,000 mg total) by mouth 4 (four) times a day as needed for muscle spasms 240 tablet 06/19/20 24 Active meloxicam (MOBIC) 15 mg tablet Take 1 tablet (15 mg total) by mouth daily 90 tablet 3 07/01/20 24 Active back brace [facility]- back brace for scoliosis 1 each 07/01/20 24 Active lurasidone (LATUDA) 80 mg tablet TAKE 1 TABLET BY MOUTH DAILY IN THE EVENING WITH FOOD 08/07/19 25 Active HYDROcodone-ac etaminophen (NORCO) 10-325 mg per tabletIndicati ons:Pain Take 1 tablet by mouth every 6 (six) hours as needed for pain 120 tablet 08/20/19 25 Active HYDROcodone-ac etaminophen (NORCO) 10-325 mg per tabletIndicati ons:Pain Take 1 tablet by mouth every 6 (six) hours as needed for pain 120 tablet 08/11/19 25 025 Discontin ued(Reord er) Active Problems Problem Noted Date Diagnosed Date Other spondylosis with radiculopathy, lumbar reg ion 11/27/2023 Cervical post-laminectomy syndrome 10/31/2022 Cervical spinal stenosis 08/09/2022 Osteoporosis 08/09/2022 GERD (gastroesophageal reflux disease) 3 S/P cervical discectomy 08/09/2022 Spinal stenosis of cervical region 07/07/2022 Overview (10/18/2023): Added automatically from request for surgery [id number] Added automatically from request for surgery [id number] Rotoscoliosis 11/30/2020 Sacroiliac joint dysfunction 11/30/2020 Muscle [...] Encounters Date Type Department Care Team Description 09/09/2024 8:23 AM [facility] - 09/09/2024 11:59 PM [facility] Hospital Encounter [facility] at the [facility] Advanced [facility] [address] [facility] [address] [place] [address] Nancy Fernandez MD Bilateral low back pain without sciatica, unspecified chronicity (Primary Dx); Sacroiliac joint dysfunction; Chronic use of opiate drug for therapeutic purpose Discharge Disposition: Discharge to home or self care 09/08/2024 2:00 PM [facility] Therapy [facility] [address] [place] [phone] Lyle Watson DPT Cervicalgia (Primary Dx) 09/05/2024 Telephone [facility] [address] [place] [address] for Advanced Medicine [address] [address] Nancy Fernandez MD [facility] Preprocedure 09/03/2024 Telephone [facility] ([facility]) [address] [place] [address] Gail Johnson RN 08/28/2024 Telephone [facility] ([facility]) [address] [place] [address] Gail Johnson RN 08/26/2024 6:06 PM [facility] - 08/26/2024 11:59 PM [facility] ([facility]) [address] [place] [address] Discharge Disposition: Discharge to home or self care 08/26/2024 1:00 PM [facility] Therapy [facility] [address] [place] [phone] Florinda Mcneal PTA Cervicalgia (Primary Dx) 08/22/2024 Orders Only [facility] [address] [place] [address] Advanced Medicine [address] [place] [address] Modesta Mary, RUBIO 08/15/2024 Orders Only [facility] [address] [facility] [address] [place] [phone] Viry Kennedy NP 08/13/2024 1:00 PM [facility] Therapy [facility] [address] [place] [phone] Lyle Watson DPT Cervicalgia (Primary Dx) 08/13/2024 Orders Only [facility] [address] [facility] [address] [place] [address] Viry Kennedy NP Abnormal mammogram (Primary Dx) 08/11/2024 12:15 PM [facility] - 08/11/2024 11:59 PM [facility] Hospital Encounter [facility] [address] [facility] [address] [place] [address] Nancy Fernandez MD Sacroiliac joint dysfunction (Primary Dx); Chronic use of opiate drug for therapeutic purpose; Rotoscoliosis; Fibromyalgia Discharge Disposition: Discharge to home or self care 08/07/2024 - 08/07/2024 11:59 PM [facility] Hospital Encounter [facility] ([facility]) [address] [place] [phone] Discharge Disposition: Discharge to home or self care 07/18/2024 10:00 AM [facility] Therapy [facility] [address] [place] [phone] Lyle Watson DPT Cervicalgia (Primary Dx) 07/08/2024 - 07/08/2024 11:59 PM [facility] Hospital Encounter [facility] ([facility]) [address] [place] [address] Discharge Disposition: Discharge to home or self care 07/01/2024 Orders Only [facility] [address] [place] [address] for Advanced Medicine [address] [place] [address] Nancy Fernandez MD from Last 3 Months Immunizations Immunization Administration Dates Next Due Influenza, Quadrivalent, Spl it, Intramuscular 05/05/2019 Influenza, Quadrivalent, Spl it, Preservative Free, Intramuscular 05/02/2021,05/04/2020,04/18/2018 Influenza, Trivalent, IM (MDV) 06/22/2014 Influenza, Unspecified 04/28/2022 Tdap 04/18/2018 Surgical History Surgery Date Site/Laterality Comments OR UNLISTED LAPAROSCOPY PX INTESTINE XCP RECTUM Intestinal Laparoscopy - (Added by TW Conv) HYSTEROSCOPY W/ ENDOMETRIAL ABLATION CATARACT EXTRACTION [...] istory of kidney disease - (Added by TW Conv) Stroke Father Reid Feldman Family his tory of cerebrovascular accident - (Added by TW Conv) Heart disease Maternal Grandfather Peter Salcido Arthritis Mother Daniella Grotefendt COPD Mother Daniella Grotefendt Depression Mother Daniella Grotefendt Heart failure Mother Daniella [place]tefendt Family h istory of congestive heart failure - (Added by TW Conv) Hypertension Mother Daniella Grotefendt Arthritis Mother's Brother Eddie Salcido Depression Mother's Brother Eddie Salcido Arthritis Mother's Sister Patricia Salcido Celiac disease Son 1 Family histor y of celiac disease - (Added by Conv) Allergy (severe) Son 2 Roberto Carlos Santiago Anesthesia problems Neg Hx Relation Name Status Comments Father Reid Feldman Alive Maternal Grandfather Peter Salcido Mother Daniella [place]t Mother's Brother Eddie Salcido Mother's Sister Patricia [...] you have a drink containing alcohol? Never 09/09/2024 Q2: How many drinks containi ng alcohol do you have on a typical day when you are drinking? Patient does not drink Q3: How often do you have si x or more drinks on one occasion? Never 09/09/2024 Hunger Vital Sign Answer Date Recorded Within [...] on file Legal Sex Female 2:03 AM [facility] Gender Identity Female 08/26/2020 6:26 AM [facility] Sexual Orientation Straight 08/26/2020 6: 26 AM [facility] Obstetrics History Last Filed Vital Signs Vital Sign Reading Time Taken Comments Blood Pressure 120/79 09/09/2024 9:29 AM [facility] Pulse 71 09/09/2024 9:29 AM [facility] Temperature 36.4 C (97.5 F) 09/09/2024 8:30 AM [facility] Respiratory Rate 16 09/09/2024 9:29 AM [facility] Oxygen Saturation 97% 09/09/2024 9:29 AM [facility] Inhaled Oxygen Concentration - - Weight 65.8 kg (145 lb) 09/09/2024 8:30 AM [facility] Height 170.2 cm (5' 7 ) 09/09/2024 8:30 AM [facility] Body Mass Index 22.71 09/09/2024 8:30 AM [facility] Plan of Treatment Health Maintenance Due Date Last Done Comments Cervical Cancer Screening 1960 Colon Cancer Screening-Colonoscopy 1960 Depression Screening 1960 Hepatitis C Screening 1960 Hepatitis B Screening 1978 Regular Well Visit/Exam 18-64 1978 Zoster Vaccine (1 of 2) 2010 Covid-19 Vaccine ( season) 2024 11/06/2021, 05/05/2021, 10/22/2020, Additional history exists Influenza Vaccine (#1) 2024 , 05/02/2021, 05/04/2020, Additional history exists Breast Cancer Screening-Mammogram 07/08/2025 07/08/2024, 07/08/2024 DTaP/Tdap/Td Vaccine (2 - Td or Tdap) 04/18/2028 04/18/2018 Pneumococcal vaccine <65 Aged Out No longer eligible based on patient's age to complete this topic Goals Goal Patient Goal Type Associated Problems Recent Progress Patient-Stated? Author CCM Chronic Pain Care Plan Chronic Care Management No change(09/09 8:32 AM [facility]) No Bessy Mancuso RN Note: Problem: Chronic Pain Goals: 1. Minimize further functional decline 2. Maximize quality of life 3. Control pain Strategies: - Activity/exercise program recommendation - Conservative stepwise pain medicine strategy with multi-disciplinary approach - Recommend healthy lifestyle strategies and compensatory methods as needed Medical Devices Implanted Type Area Straddle Truck Driver Device Identifier Shelf Expiration Date Model / Serial / Lot Ray Right: Eye Musculoskeletal Transplant [id number] Frozen Spine 7d Lordotic Trapezoid Spacer Allograft [id number] - [id number] - [id number] Implanted:Qty: 1 on 08/09/2022 by Olivier Marion MD at [facility] N/A: Spine Cervical Musculoskeletal Transplant [id number] 05/18/2026 [id number] / [id number] / Musculoskeletal Transplant [id number] Frozen Spine 7d Lordotic Trapezoid Spacer Allograft [id number] - [id number] - [id number] Implanted:Qty: 1 on 08/09/2022 by Olivier Marion MD at [facility] N/A: Spine Cervical Musculoskeletal Transplant [id number] 04/24/2026 [id number] / [id number] / Musculoskeletal Transplant [id number] Frozen Spine 7d Lordotic Trapezoid Spacer Allograft [id number] - [id number] - [id number] Implanted:Qty: 1 on 08/09/2022 by Olivier Marion MD at [facility] N/A: Spine Cervical Musculoskeletal Transplant [id number] 12/12/2026 [id number] / [id number] / [employer] 4mm 16mm Fix Screw Bone [id number] - [id number] Implanted:Qty: 8 on 08/09/2022 by Olivier Marion MD at [facility] N/A: Spine Cervical [employer] [id number] / / [employer] C-Pancho Maxan 51mm Level 3 Fix Spine Cervical Anterior Plate Bone [id number] - [id number] Implanted:Qty: 1 on 08/09/2022 by Olivier Marion MD at [facility] N/A: Spine Cervical [employer] [id number] / / Procedures Procedure Name Priority Date/Time Associated Diagnosis Comments PAIN MGMT IMAGING SI JOINT BILATERAL ARTHROGRPHY Schedule Routine, Read Routine (OP Routine) 09/09/2024 9:25 AM [facility] Sacroiliac joint dysfunction BREAST IMAGING MG DIAGNOSTIC OUTSIDE CONSULT Routine 08/26/2024 6:06 PM [facility] BREAST IMAGING MG DIAGNOSTIC OUTSIDE REFERENCE Routine 08/07/2024 12:00 AM [facility] BREAST IMAGING MG SCREENING OUTSIDE REFERENCE Routine 07/08/2024 12:00 AM [facility] from Last 3 Months Results * Imaging SI Joint Injection Bilateral (20369) (09/09/2024 9:25 AM [facility]) Narrative [facility] - 09/09/2024 9:25 AM [facility] The images from this study are not interpreted by Radiology. Please refer to the physician's procedure / OR operative note. Quentin Mai MD IMG PAIN MGMT PROCE DURES Final Result [facility] * Breast Imaging DX Outside Consult (08/26/2024 6:06 PM [facility]) Anatomical Region Laterality Modality Breast N/A Mammography 08/27/2024 9:34 AM [facility] Impressions 08/27/2024 2:12 PM [facility] 0.9 cm grouped calcifications in the left upper outer are at low suspicion for malignancy. Stereotactic guided biopsy is recommended. The method of initial detection of finding was 3D screening mammography (Sdbt). OVERALL FINAL ASSESSMENT: SUSPICIOUS. BI-RADS Category 4A: Low suspicion for malignancy. RECOMMENDATION: Stereotactic biopsy of the grouped calcifications in the left upper outer breast. NOTE: The findings, conclusions and recommendations within this report do not replace the initial findings, conclusions and recommendations made at the facility where the study was performed based upon the imaging and clinical condition at that time. Review of the prior report and correlation with the clinical history are necessary. The provided images may or may not represent the upper [place] source data set and thus may contain changes which may lower the sensitivity of the second opinion interpretation. Dictated by: Boby Stout D.O. The radiology attending physician has personally reviewed this study, and had reviewed and/or edited this written report and agrees with it. Electronically signed by: Flakita Fernandez M.D. Narrative 08/27/2024 2:12 PM [facility] EXAMINATION: REVIEW AND INTERPRETATION OF OUTSIDE IMAGING FACILITY PERFORMING OUTSIDE IMAGING: [facility] EXAM(S) REVIEWED: 1. LEFT UNILATERAL DIAGNOSTIC MAMMOGRAM, 08/07/2024 2. BILATERAL SCREENING MAMMOGRAM WITH TOMOSYNTHESIS, 07/08/2024 DATE OF INTERPRETATION: 08/27/2024 HISTORY: 64-year-old woman presents for outside imaging evaluation of indeterminate calcifications discovered in the left upper outer breast. Stereotactic guided biopsy was recommended by the outside facility. COMPARISON: Multiple prior studies, most recently 08/07/2024 and dating back to 04/27/2022. BREAST PARENCHYMAL COMPOSITION: The breasts are extremely dense, which lowers the sensitivity of mammography. FINDINGS: Bilateral screening mammogram: Right: No suspicious calcifications or architectural distortion of the right breast. Multiple circumscribed masses previously described in the right breast as cysts are smaller compared with the prior mammogram. Left: Abnormal 0.9 cm grouped calcifications are present in the left upper outer breast at mid depth that are slightly increased over the past 2 years. Multiple circumscribed masses in the left breast is consistent with previously described cysts have decreased in size. Left breast diagnostic mammogram: Spot magnification views of the upper outer left breast shows the abnormal grouped calcifications to have an amorphous appearance and may be increased over the past 2 years on mammogram. Procedure Note Flakita Fernandez MD - 08/27/2024 EXAMINATION: REVIEW AND INTERPRETATION OF OUTSIDE IMAGING FACILITY PERFORMING OUTSIDE IMAGING: [facility] EXAM(S) REVIEWED: 1. LEFT UNILATERAL DIAGNOSTIC MAMMOGRAM, 08/07/2024 2. BILATERAL SCREENING MAMMOGRAM WITH TOMOSYNTHESIS, 07/08/2024 DATE OF INTERPRETATION: 08/27/2024 HISTORY: 64-year-old woman presents for outside imaging evaluation of indeterminate calcifications discovered in the left upper outer breast. Stereotactic guided biopsy was recommended by the outside facility. COMPARISON: Multiple prior studies, most recently 08/07/2024 and dating back to 04/27/2022. BREAST PARENCHYMAL COMPOSITION: The breasts are extremely dense, which lowers the sensitivity of mammography. FINDINGS: Bilateral screening mammogram: Right: No suspicious calcifications or architectural distortion of the right breast. Multiple circumscribed masses previously described in the right breast as cysts are smaller compared with the prior mammogram. Left: Abnormal 0.9 cm grouped calcifications are present in the left upper outer breast at mid depth that are slightly increased over the past 2 years. Multiple circumscribed masses in the left breast is consistent with previously described cysts have decreased in size. Left breast diagnostic mammogram: Spot magnification views of the upper outer left breast shows the abnormal grouped calcifications to have an amorphous appearance and may be increased over the past 2 years on mammogram. IMPRESSION: 0.9 cm grouped calcifications in the left upper outer are at low suspicion for malignancy. Stereotactic guided biopsy is recommended. The method of initial detection of finding was 3D screening mammography (Sdbt). OVERALL FINAL ASSESSMENT: SUSPICIOUS. BI-RADS Category 4A: Low suspicion for malignancy. RECOMMENDATION: Stereotactic biopsy of the grouped calcifications in the left upper outer breast. NOTE: The findings, conclusions and recommendations within this report do not replace the initial findings, conclusions and recommendations made at the facility where the study was performed based upon the imaging and clinical condition at that time. Review of the prior report and correlation with the clinical history are necessary. The provided images may or may not represent the upper [place] source data set and thus may contain changes which may lower the sensitivity of the second opinion interpretation. Dictated by: Boby Stout D.O. The radiology attending physician has personally reviewed this study, and had reviewed and/or edited this written report and agrees with it. Electronically signed by: Flakita Fernandez M.D. Viry Kennedy NP IMG MAMMO PROCEDURES Final Result * Breast Imaging Diagnostic Outside Reference (08/07/2024 12:00 AM [facility]GE[facility] ARMS) Impressions [facility] - 08/26/2024 5:54 PM [facility] ARMS These images are for Reference purposes only and have not been reviewed by [facility]. There will be no report generated by a [facility]iologist. Narrative [facility] - 08/26/2024 5:54 PM [facility] ARMS EXAMINATION: Images For Reference Purposes Only Viry Paintersudheer MAINTENANCE TECHNICIAN 3RD SHIFT IMG MAMMO PROCEDURES Final Result Performing Organization Address City/[facility]/ZIP Co de Phone Number [facility] * Breast Imaging Screening Outside Reference (07/08/2024 12:00 AM SERGE[facility] AT ARMS) Impressions [facility] - 08/19/2024 9:33 PM [facility] AT ARMS These images are for Reference purposes only and have not been reviewed by [facility]. There will be no report generated by a [facility]iologist. Narrative [facility] - 08/19/2024 9:33 PM [facility] ARMS EXAMINATION: Images For Reference Purposes Only Viry Paintersudheer MAINTENANCE TECHNICIAN 3RD SHIFT IMG MAMMO PROCEDURES Final Result Performing Organization Address [facility] Co de Phone Number [facility] from Last 3 Months Insurance [employer] OPEN ACCESS [employer] HMO/PPO Address: [facility] [id number] [place] [address] [employer] OPEN ACCESS Advance Directives For more information, please contact: [phone] * Full Code (Latest Code Status on File) Date Activated Date Inactivated Comments 08/09/2022 11:03 PM 08/12/2022 9:06 PM Care Teams Envelope Stuffer Relationship Specialty Start Date End Date Peyman Ortega MD [address] [place] [address] PCP - General Family Practice 05/13/24 Reanna Polanco, RN Registered Nurse 07/07/19 Sera Morley MD [address] [place] [address] Referring Physician Gynecology 08/08/24
--- OUTSIDE RECORDS SUMMARY | 2024-09-15 14:59 | XMS_ITS | Referral Summary ---
Author Organization [facility] Address [address] [place] [address] Care Team Providers Care Stereo Equipment Repairer Name Role Phone Reanna Polanco RN Unavailable Unavailab Peyman Carvjaal MD Primary Care Provider Sera Morley MD Unavailable [phone] Encounters Date Type Department Care Team Description 09/09/2024 8:23 AM BELLY PACKER - 09/09/2024 11:59 PM BELLY PACKER Hospital Encounter [facility] Advanced [address] [place] [address] Nancy Fernandez MD Bilateral low back pain without sciatica, unspecified chronicity (Primary Dx); Sacroiliac joint dysfunction; Chronic use of opiate drug for therapeutic purpose Discharge Disposition: Discharge to home or self care 09/08/2024 2:00 PM BELLY PACKER Therapy [facility] Physical Therapy [address] [place] [id number] Lyle Watson DPT Cervicalgia (Primary Dx) 09/05/2024 Telephone [facility] Advanced Medicine [address] [place] [address] [place] [address] Nancy Fernandez MD PMC Preprocedure 09/03/2024 Telephone [facility] Breast [facility] ([facility]) [address] [place] [address] Gail Johnson RN 08/28/2024 Telephone [facility] Advanced Medicine [facility] Advanced Medicine ([facility]) [address] [place] [address] Gail Johnson RN 08/26/2024 6:06 PM BELLY PACKER - 08/26/2024 11:59 PM BELLY PACKER Hospital Encounter [facility]iology [facility] ([facility]) [address] [place] [address] Discharge Disposition: Discharge to home or self care 08/26/2024 1:00 PM BELLY PACKER Therapy [facility] Physical Therapy [address] [place] [phone] Florinda Mcneal PTA Cervicalgia (Primary Dx) 08/22/2024 Orders Only [facility] Advanced Medicine [address] [place] [address] Advanced Medicine [address] [place] [address] Modesta Mary RN 08/15/2024 Orders Only [facility] Surgery [address] [place] [address] [address] [place] [address] Viry Kennedy NP 08/13/2024 Orders Only [facility] Surgery [address] [place] [address] 8 [place] [address] Viry Kennedy NP Abnormal mammogram (Primary Dx) 08/13/2024 1:00 PM BELLY PACKER Therapy [facility] Physical Therapy [address] [place] [phone] Lyle Watson DPT Cervicalgia (Primary Dx) 08/11/2024 12:15 PM BELLY PACKER - 08/11/2024 11:59 PM BELLY PACKER Hospital Encounter [facility] [place] [facility] Medicine [address] [place] [address] [address] [address] Nancy Fernandez MD Sacroiliac joint dysfunction (Primary Dx); Chronic use of opiate drug for therapeutic purpose; Rotoscoliosis; Fibromyalgia Discharge Disposition: Discharge to home or self care 08/07/2024 - 08/07/2024 11:59 PM BELLY PACKER Hospital Encounter [facility] ([facility]) [address] [place] [address] Discharge Disposition: Discharge to home or self care 07/18/2024 10:00 AM BELLY PACKER Therapy [facility] Physical Therapy [address] [place] [address] Lyle Watson DPT Cervicalgia (Primary Dx) 07/08/2024 - 07/08/2024 11:59 PM BELLY PACKER Hospital Encounter [facility] ([facility]) [address] [place] [address] Discharge Disposition: Discharge to home or self care 07/01/2024 Orders Only [facility] [address] [facility] [address] [place] [address] Nancy Fernandez MD from Last 3 Months Allergies Active Allergy [...] tablet 3 07/01/20 24 Active back [facility] for scoliosis 1 each [...] (10/18/2023): Added automatically from request for surgery [id number] Added automatically from request for surgery [id number] Rotoscoliosis 11/30/2020 Sacroiliac joint dysfunction 11/30/2020 Muscle [...] Encounter for preventive health examination 04/29 Immunizations Immunization Administration Dates Next Due Influenza, [...] on file Legal Sex Female 2:03 AM BELLY PACKER Gender Identity Female 08/26/2020 6:26 AM BELLY PACKER Sexual Orientation Straight 08/26/2020 6: 26 AM BELLY PACKER Last Filed Vital Signs Vital Sign Reading Time Taken Comments Blood Pressure 120/79 09/09/2024 9:29 AM BELLY PACKER Pulse 71 09/09/2024 9:29 AM BELLY PACKER Temperature 36.4 C (97.5 F) 09/09/2024 8:30 AM BELLY PACKER Respiratory Rate 16 09/09/2024 9:29 AM BELLY PACKER Oxygen Saturation 97% 09/09/2024 9:29 AM BELLY PACKER Inhaled Oxygen Concentration - - Weight 65.8 kg (145 lb) 09/09/2024 8:30 AM BELLY PACKER Height 170.2 cm (5' 7 ) 09/09/2024 8:30 AM BELLY PACKER Body Mass Index 22.71 09/09/2024 8:30 AM BELLY PACKER Plan of Treatment Not on file Goals Goal Patient Goal Type Associated Problems Recent Progress Patient-Stated? Author CCM Chronic Pain Care Plan Chronic Care Management No change(09/09 8:32 AM BELLY PACKER) No Bessy Mancuso, RN Note: Problem: Chronic Pain Goals: 1. Minimize further functional decline 2. Maximize quality of life 3. Control pain Strategies: - Activity/exercise program recommendation - Conservative stepwise pain medicine strategy with multi-disciplinary approach - Recommend healthy lifestyle strategies and compensatory methods as needed Medical Devices Implanted Type Area Vegetable Tester Device Identifier Shelf Expiration Date Model / Serial / Lot Ray Right: Eye Musculoskeletal Transplant [id number] Frozen Spine 7d Lordotic Trapezoid Spacer Allograft [id number] - [id number] - [id number] Implanted:Qty: 1 on 08/09/2022 by Olivier Marion MD at [facility] N/A: Spine Cervical Musculoskeletal Transplant [id number] 05/18/2026 [id number] / [id number] / Musculoskeletal Transplant [id number] Frozen Spine 7d Lordotic Trapezoid Spacer Allograft 968685 - [id number] - [id number] Implanted:Qty: 1 on 08/09/2022 by Olivier Marion MD at [facility] N/A: Spine Cervical Musculoskeletal Transplant [id number] 04/24/2026 [id number] / [id number] / Musculoskeletal Transplant [id number] Frozen Spine 7d Lordotic Trapezoid Spacer Allograft 935457 - [id number] - [id number] Implanted:Qty: 1 on 08/09/2022 by Olivier Marion MD at [facility] N/A: Spine Cervical Musculoskeletal Transplant [id number] 12/12/2026 [id number] / [id number] / [employer] 4mm 16mm Fix Screw Bone [id number] - [id number] Implanted:Qty: 8 on 08/09/2022 by Olivier Marion MD at [facility] N/A: Spine Cervical [employer] [id number] / / [employer] C-Pancho Maxan 51mm Level 3 Fix Spine Cervical Anterior Plate Bone [id number] - [id number] Implanted:Qty: 1 on 08/09/2022 by Olivier Marion MD at [facility] N/A: Spine Cervical [employer] [id number] / / Procedures Procedure Name Priority Date/Time Associated Diagnosis Comments PAIN MGMT IMAGING SI JOINT BILATERAL ARTHROGRPHY Schedule Routine, Read Routine (OP Routine) 09/09/2024 9:25 AM BELLY PACKER Sacroiliac joint dysfunction BREAST IMAGING MG DIAGNOSTIC OUTSIDE CONSULT Routine 08/26/2024 6:06 PM BELLY PACKER BREAST IMAGING MG DIAGNOSTIC OUTSIDE REFERENCE Routine 08/07/2024 12:00 AM BELLY PACKER BREAST IMAGING MG SCREENING OUTSIDE REFERENCE Routine 07/08/2024 12:00 AM BELLY PACKER from Last 3 Months Results * Imaging SI Joint Injection Bilateral ([id number]) (09/09/2024 9:25 AM BELLY PACKER) Narrative RAD_PACS_[facility] - 09/09/2024 9:25 AM BELLY PACKER The images from this study are not interpreted by Radiology. Please refer to the physician's procedure / OR operative note. Quentin CAMPOVERDE Final Result RAD_PACS_[facility] * Breast Imaging DX Outside Consult (08/26/2024 6:06 PM BELLY PACKER) Anatomical Region Laterality Modality Breast N/A Mammography 08/27/2024 9:34 AM BELLY PACKER Impressions 08/27/2024 2:12 PM BELLY PACKER 0.9 cm grouped calcifications in the left [...] images may or may not represent the jackson source data set and thus may contain changes which may lower the sensitivity of the second opinion interpretation. Dictated by: Boby Stout D.O. The radiology attending physician has personally reviewed this study, and had reviewed and/or edited this written report and agrees with it. Electronically signed by: Flakita Fernandez M.D. Narrative 08/27/2024 2:12 PM BELLY PACKER EXAMINATION: REVIEW AND INTERPRETATION OF OUTSIDE IMAGING FACILITY PERFORMING OUTSIDE IMAGING: [facility] EXAM(S) REVIEWED: 1. LEFT UNILATERAL DIAGNOSTIC [...] OF OUTSIDE IMAGING FACILITY PERFORMING OUTSIDE IMAGING: [facility] EXAM(S) REVIEWED: 1. LEFT UNILATERAL DIAGNOSTIC [...] images may or may not represent the jackson source data set and thus may contain changes which may lower the sensitivity of the second opinion interpretation. Dictated by: Boby Stout D.O. The radiology attending physician has personally reviewed this study, and had reviewed and/or edited this written report and agrees with it. Electronically signed by: Flakita Fernandez M.D. Viry Kennedy NP [facility] MAMMO PROCEDURES Final Result * Breast Imaging Diagnostic Outside Reference (08/07/2024 12:00 AM BELLY PACKER) Impressions RAD_MAMMO_[facility] - 08/26/2024 5:54 PM BELLY PACKER These images are for Reference purposes only and have not been reviewed by [facility] Radiology. There will be no report generated by a [facility] Radiologist. Narrative RAD_MAMMO_BJ - 08/26/2024 5:54 PM BELLY PACKER EXAMINATION: Images For Reference Purposes Only Viry Kennedy NP IM MAMMO PROCEDURES Final Result RAD_MAMMO[facility] * Breast Imaging Screening Outside Reference (07/08/2024 12:00 AM BELLY PACKER) Impressions RADMaheshMAMMOANGELA - 08/19/2024 9:33 PM BELLY PACKER These images are for Reference purposes only and have not been reviewed by [facility] Radiology. There will be no report generated by a [facility] Radiologist. Narrative RAD_MAMMO_BJNakia - 08/19/2024 9:33 PM BELLY PACKER EXAMINATION: Images For Reference Purposes Only us Viry Kennedy SHUTTLE VAN DRIVER IMG MAMMO PROCEDURES Final Result Performing Organization Address City/[facility] Co de Phone Number RAD_MAMMO_[facility] from Last 3 Months Insurance [employer] OPEN ACCESS [employer] OPEN ACCESS Advance Directives For more information, please contact: [phone] * Full Code (Latest Code Status on File) Date Activated Date Inactivated Comments 08/09/2022 11:03 PM 08/12/2022 9:06 PM Care Teams Stereo Equipment Repairer Relationship Specialty Start Date End Date Peyman Ortega MD [address] [facility] [address] [place] [address] PCP - General Family Practice 05/13/24 Reanna Polanco RN Registered Nurse 07/07/19 Sera Morley MD [address] [place] [address] Referring Physician Gynecology 08/08/24
--- OUTSIDE RECORDS SUMMARY | 2024-09-15 14:59 | XMS_ITS | Referral Summary ---
Author Organization [facility] Address [address] [facility] [address] Care Team Providers Care Engine Lathe Operator Name Role Phone Peyman Ortega MD Primary Care Provider Source Comments [facility],non-[facility] Affiliates and Associated Physician Practices is amultiple site organization consisting of ambulatory clinics and hospital sitesin [place], [place], [place] and [place]. This disclosure is being madepursuant to the Care Everywhere program and may not contain all information available regarding this patient. Last updated 18.[facility] Encounters Date Type Department Care Team Description 06/24/2024 Travel 06/24/2024 2:00 PM CHOREOGRAPHY DIRECTOR Office Visit [facility] - RESPIRATORY THERAPY INSTRUCTOR [address] [facility] [address] [place] [address] Valentina Hamm MD Lichen sclerosus et atrophicus of the vulva (Primary Dx) from Last 3 Months Allergies Active Allergy [...] 4 times daily 10/23/2023 Active HYDROcodone-acetamino phen (Delaplane) 7.5-325 MG tablet Take 1 (one) tablet [...] (08/15/2023): Added automatically from request for surgery [id number] Chronic use of opiate drug for therapeutic [...] Comments Blood Pressure 130/76 06/24/2024 1:40 PM CHOREOGRAPHY DIRECTOR Pulse - - Temperature 37 C (98.6 F) 04/22/2024 3:16 PM CDT Respiratory Rate - - Oxygen Saturation - - Inhaled Oxygen Concentration - - Weight 66.9 kg (147 lb 6.4 oz) 06/24/2024 1:40 P M CHOREOGRAPHY DIRECTOR Height 167.6 cm (5' 6 ) 06/24/2024 1:40 PM CHOREOGRAPHY DIRECTOR Body Mass Index 23.79 06/24/2024 1:40 PM CHOREOGRAPHY DIRECTOR Plan of Treatment Upcoming Encounters Date Type Department Care Team (Late st Contact Info) Description 12/10/2024 10:50 AM CDT Office Visit [facility] - RESPIRATORY THERAPY INSTRUCTOR [address] [place] [address] Valentina Hamm MD [address] [place] [address] Care Teams Engine Lathe Operator Relationship Specialty Start Date End Date Peyman Ortega MD [address] [facility] [place] [address] PCP - General Family Medicine 04/22/24
--- OUTSIDE RECORDS SUMMARY | 2024-09-15 14:59 | XMS_ITS | Encounter Summary ---
Author Organization [facility] Address [address] [place] [address] Care Team Providers Care Senior Windows Engineer Name Role Phone Felicitas Samuel MD Primary Care Provider + Reanna Polanco RN Unavailable Unavailab Rohan Salvador MD Primary Care Provider Peyman Ortega MD Primary Care Provider Sera Morley MD Unavailable [phone] Encounter Details Date Type Department Care Team (Late st Contact Info) Description 01/15/2020 Telephone [facility] [place] [facility] Medicine [address] [facility] Advanced Medicine [address] [place] [address] Nancy Fernandez MD [address] [facility] [phone] [place] [address] Social History Tobacco Use Types Packs/Day Years Used Date Smoking Tobacco: Former Smokeless Tobacco: Never Alcohol Use Standard Drinks/Week Comments No 0 (1 standard drink = 0.6 oz pur e alcohol) Comments No Sex and Gender Information Value Date Recorded Sex Assigned at Not on file Legal Sex Female 2:03 AM GLOBAL MARKETING COORDINATOR Gender Identity Female 08/26/2020 6:26 AM GLOBAL MARKETING COORDINATOR Sexual Orientation Straight 08/26/2020 6: 26 AM GLOBAL MARKETING COORDINATOR documented as of this encounter Plan of Treatment Not on file documented as of this encounter Goals Goal Patient Goal Type Associated Problems Recent Progress Patient-Stated? Author CCM Chronic Pain Care Plan Chronic Care Management No change(09/09 8:32 AM GLOBAL MARKETING COORDINATOR) No Bessy Mancuso RN Note: Problem: Chronic Pain Goals: 1. Minimize further functional decline 2. Maximize quality of life 3. Control pain Strategies: - Activity/exercise program recommendation - Conservative stepwise pain medicine strategy with multi-disciplinary approach - Recommend healthy lifestyle strategies and compensatory methods as needed documented as of this encounter Visit Diagnoses Not on filedocumented in this encounter Care Teams Senior Windows Engineer Relationship Specialty Start Date End Date Felicitas Samuel MD PCP - General 10/13/16 07/19/20 Rohan Rothman MD [address] [facility] [address] [place] [address] PCP - General 07/20/20 05/12/24 Peyman Ortega MD [address] [facility] [address] [place] [address] PCP - General Family Practice 05/13/24 Reanna Polanco RN Registered Nurse 07/07/19 Sera Morley MD [address] [facility] [address] [place] [address] Referring Physician Gynecology 08/08/24 documented as of this encounter
--- OUTSIDE RECORDS SUMMARY | 2024-09-15 14:59 | XMS_ITS ---
Author Organization [facility] [employer] [facility] Address [address] [facility] [address] [place] [address] Care Team Providers Care Underground Mine Superintendent Name Role Phone Radha Lundy Unavailable [phone] REASON FOR VISIT New Refill Request Medications Medication SIG (Take, Route, Fr equency, Duration) Notes Start Date End Date Status Lurasidone HCl 80 MG 1 tablet in the chapis ken with food Oral Once a day for 90 days Active Social History Sex Assigned At : Social History Observation Description Sex Assigned At Female Encounters Encounter Location Date Provider Diagnosis 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 Assessments Encounter Date Diagnosis (ICD Code) Assessment Notes Treatment Notes Treatment Clinical Notes Section Notes 09/08/2024 MDD (major depressive disorder), recurrent severe, without psychosis (ICD-10 - F33.2) Plan Of Treatment Medication Medication Name Sig Start Date Stop Date Notes Lurasidone HCl 80 MG 1 tablet in the chapis ken with food Oral Once a day for 90 days Next Appt Details Provider Name:Radha Lundy, 10/30/2024 11:00:00 AM, [address], [facility] [address], [place], [address], Progress Notes * JASBIR CAMARENA:[birth year] (64 yo F)Acc No.[id number]:09/08/2024 Patient: Kobi KATRINA BARNES :1960 A ge:64 Y S ex:Female Address:[address] [place] [address], [address] * Refills Refill Lurasidone HCl Tablet, 80 MG, Oral, 90, 1 tablet in the evening with food, Once a day, 90 days, Refills=0 * true * Date: Generated for Malena rasmussen/Urvashi/Peytonitting on: 0 09/15/2024 02:59 PM COURIER DELIVERY DRIVER
--- OUTSIDE RECORDS SUMMARY | 2024-09-15 14:59 | XMS_ITS ---
Author Organization [facility] Address [facility] [facility] [address] [place] [address] Care Team Providers Care Oil Rig Roughneck Name Role Phone KamronRadha Unavailable [phone] REASON FOR VISIT Depression Severity Scale Social History Sex Assigned At : Social History Observation Description Sex Assigned At Female Encounters Encounter Location Date Provider Diagnosis [facility] [employer] [place] [id number] [facility] [address] [address] 09/03/2024 Radha Lundy Plan Of Treatment Next Appt Details Provider Name:Radha Lundy, 10/30/2024 11:00:00 AM, [address], [facility] [address], [place], [address], Progress Notes * FER CAMARENAB:[birth year] 60 (64 yo F)Acc No.[id number]:09/03/2024 Patient: Kobi GUNNCASIMIRO KATRINA :1960 A ge:64 Y S ex:Female Address:[address] [facility], [place], [address] * true * Date: Generated for Ezrai grady/Famirlandeg/eTransmitting on: 0 09/15/2024 02:59 PM LEGAL STENOGRAPHER
--- OUTSIDE RECORDS SUMMARY | 2024-09-15 14:59 | XMS_ITS | Patient Health Summary ---
Author Organization [facility] [employer] Address [address] [facility] [place] [address] Care Team Providers Care Welding Machine Setter Name Role Phone Peyman Ortega MD Primary Care Provider Note from [facility],non-owned Affiliates and Associated Physician Practices is amultiple site organization consisting of ambulatory clinics and hospital sitesin [place], [place], [place] and [place]. This disclosure is being madepursuant to the Care Everywhere program and may not contain all information available regarding this patient. Last updated 18.[facility] Allergies * Capsaicin(Other,Skin Reactions) -Low Criticality * [...] by mouth 4 times daily * HYDROcodone-acetaminophen ([place]) 7.5-325 MG tablet(Started 11/06/2023) Take 1 (one) [...] Comments Blood Pressure 130/76 06/24/2024 1:40 PM OIL WELL SERVICE OPERATOR Pulse - - Temperature 37 C (98.6 F) 04/22/2024 3:16 PM CDT Respiratory Rate - - Oxygen Saturation - - Inhaled Oxygen Concentration - - Weight 66.9 kg (147 lb 6.4 oz) 06/24/2024 1:40 P M OIL WELL SERVICE OPERATOR Height 167.6 cm (5' 6 ) 06/24/2024 1:40 PM OIL WELL SERVICE OPERATOR Body Mass Index 23.79 06/24/2024 1:40 PM OIL WELL SERVICE OPERATOR Procedures * WY SONO EXAM, TRANSVAGINAL(Performed 06/09/2024) Performed for Postmenopausal bleeding * [place] US PELVIC NONOB REAL-TIME IMG COMPLETE(Performed 06/09/2024) Performed for Postmenopausal bleeding * CULTURE YEAST WITH DIRECT FLUORESCENT NEGIN(Performed 08/15/2023) Performed for Lichen sclerosus et atrophicus of the vulva Results * WY US PELVIC NONOB REAL-TIME IMG COMPLETE, [place] SONO EXAM, TRANSVAGINAL (06/09/2024 2:31 PM OIL WELL SERVICE OPERATOR) Linked Results Indication ======== Postmenopausal Bleeding History ====== 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 Uterus ====== Appears normal. Size 62 mm x 38 mm x 29 mm. Vol 35.9 cm Position: anteverted Endometrium: vascular patterns: single vessel without branching, hyperechogenic, endometrial midline: irregular. Endometrial thickness, total 6.0 mm Fibroid(s) Size 8 mm x 10 mm x 5 mm. Mean 7.6 mm. Vol 0.217 cm . Posterior. Fundal. intramural hyperechoic with posterior acoustic shadowing Polyp(s) Size 10 mm x 5 mm x 6 mm. Mean 7.0 mm. Left lateral Right Ovary ========= Appears normal. Size 14 mm x 11 mm x 11 mm. Vol 0.9 cm Left Ovary ======== Appears normal. Size 17 mm x 11 mm x 8 mm. Vol 0.8 cm Cul de Sac ========= Visualized. No free fluid visualized Impression ========= Thickened irregular endometrial cavity Suspected endometrial polyp Small intramural fibroid Coding ====== Procedures [id number]: [place] [id number]: US Pelvis Complete [employer]games PACS 06/09/2024 2:31 PM OIL WELL SERVICE OPERATOR Valentina Hamm MD PROCEDURE/MINOR MELARA RGICAL ORDERABLES Performing Organization Address City/[facility]/ZIP Co de Phone Number [employer] * CULTURE YEAST WITH DIRECT FLUORESCENT NEGIN (08/15/2023 11:17 AM OIL WELL SERVICE OPERATOR) Smear [facility] Comment: CULTURE, YEAST, W/DIRECT FLUORESCENT NEGIN Micro Number: [id number] Test Status: Final Specimen Source: Genital Specimen Quality: Adequate Smear: No yeast seen Result: No yeast isolated Test Performed at: [facility] [address] ERASMO ZAPIEN MD Microbiology SPECIMEN FROM GENITAL SYSTEM / Unknown 08/15/2023 11:17 AM OIL WELL SERVICE OPERATOR 08/16/2023 5:01 AM OIL WELL SERVICE OPERATOR Valentina Hamm MD LAB - MICROBIOLOGY ORDERABLES Performing Organization Address City/[facility]/ZIP Co de Phone Number [address] [address] Care Teams Welding Machine Setter Relationship Specialty Start Date End Date Peyman Ortega MD [address] [facility] [address] [place] [address] PCP - General Family Medicine 04/22/24
--- OUTSIDE RECORDS SUMMARY | 2024-09-15 14:59 | XMS_ITS | Clinical Summary ---
Author Organization [facility] Address [address] [place] [address] Care Team Providers Care Television Repairer Name Role Phone Unavailable Primary Care Provider Unavailabl e Encounters Date Type Department Care Team Description 08/21/2024 External Device Data STL ABSTRACTION Provider, Abstract 08/19/2024 External Device Data [facility] ABSTRACTION Provider, Abstract 08/12/2024 External Device Data [facility] ABSTRACTION Provider, Abstract 08/07/2024 1:30 PM PIPEMAN Ancillary Procedure [facility] [address] [place] [address] Sera Morley MD Abnormal mammogram 08/05/2024 External Device Data [facility] ABSTRACTION Provider, Abstract 07/15/2024 External Device Data [facility] ABSTRACTION Provider, Abstract 07/08/2024 2:00 PM PIPEMAN Ancillary Procedure [facility] [address] [place] [address] Sera Morley MD Encounter for screening mammogram for malignant neoplasm of breast from Last 3 Months Social History Tobacco Use Types Packs/Day Years Used Date Smoking Tobacco: Never Assessed Comments Unknown Sex and Gender Information Value Date Recorded Sex Assigned at Not on file Legal Sex Female 6:44 PM PIPEMAN Gender Identity Not on file Sexual Orientation Not on file Plan of Treatment Health Maintenance Due Date Last Done Comments CERVICAL CANCER SCREENING 1990 COLORECTAL SCREENING 2005 Colorectal Cancer Screening 2005 FIT-DNA Q 3 years 2005 FIT/FOBT Q 1 year 2005 Flex Sig/CT Colonography Q 5 years 2005 ZOSTER VACCINE (1 of 2) 2010 INFLUENZA VACCINE (#1) 2024 , 05/04/2020, 05/05/2019, Additional history exists BREAST CANCER SCREENING 08/07/2025 08/07/19, 07/08/2024, 05/16/2023 DTAP/TDAP/TD VACCINES (2 - T d or Tdap) 04/18/2028 04/18/2018 RSV VACCINE (60+ or ) (1 - 1-dose 75+ series) 2035 Procedures Procedure Name Priority Date/Time Associated Diagnosis Comments MAMMO DIAGNOSTIC UNI LEFT W OR WO CAD Routine 08/07/2024 1:23 PM PIPEMAN Abnormal mammogram MAMMO 3D CARLOS SCREEN BILAT W OR WO CAD Routine 07/08/2024 2:29 PM PIPEMAN Encounter for screening mammogram for malignant neoplasm of breast from Last 3 Months Results * (ABNORMAL) MAMMO DIAGNOSTIC UNI LEFT W OR WO CAD (08/07/2024 1:23 PM PIPEMAN) Anatomical Region Laterality Modality Breast Left Mammography 08/07/2024 1:23 PM PIPEMAN Narrative 08/07/2024 1:28 PM PIPEMAN EXAM: MAMMO DIAGNOSTIC UNI LEFT W OR WO CAD DATE: 08/07/2024 HISTORY: Abnormal mammogram COMPARISON: Screening mammogram from 07/08/2024 DENSITY: Heterogeneously dense which could obscure small masses. FINDINGS: Left breast diagnostic mammograms with tomosynthesis were performed with magnification views of the calcifications of concern in the left breast. Computer assisted detection was utilized. A cluster microcalcifications is noted in the left upper-outer breast probably 5 cm deep to the nipple. Stereotactic biopsy is recommended. ASSESSMENT: 1. Indeterminate microcalcifications in the left upper-outer breast. A stereotactic biopsy is recommended for further evaluation. 2. BIRADS Category 4: Suspicious abnormality. Biopsy should be considered. Digital technology was employed plus computer-aided detection software was utilized in interpretation of these images. us Sera Morley MD MAMMO ORDERABLES Final Re sult * MAMMO 3D CARLOS SCREEN BILAT W OR WO CAD (07/08/2024 2:29 PM PIPEMAN) Anatomical Region Laterality Modality Breast Bilateral Mammography 07/08/2024 2:31 PM PIPEMAN Impressions 07/08/2024 2:48 PM PIPEMAN IMPRESSION: Waxing and waning cysts of the left breast. Clustered microcalcifications at the upper outer left breast. No mammographic evidence for malignancy of the right breast. OVERALL FINAL ASSESSMENT: BI-RADS CATEGORY 0: Incomplete, needs additional imaging evaluation. Recommendation: Magnification views of the left breast. Narrative 07/08/2024 2:48 PM PIPEMAN BILATERAL SCREENING DIGITAL MAMMOGRAM WITH 3D TOMOSYNTHESIS AND CAD DATE: 07/08/2024 2:29 PM HISTORY: Annual screening study. COMPARISON: Mammograms back to 2019 TECHNIQUE: CC and MLO views of the breasts were obtained digitally and reviewed with CAD. Tomosynthesis was performed in all projections. BREAST COMPOSITION: Heterogeneously dense, which may obscure small masses. FINDINGS: There are waxing and waning cysts [...] tissue marker at the inferior left breast. us Sera Morley MD MAMMO ORDERABLES Final Re sult from Last 3 Months Insurance [facility] OPEN ACCESS HMO
== END 2024-09-15 12:29 | disposition home or self-care (01) ==
LOC: ANHIMG 12:32
PROVIDERS: PCP Family Medicine; Visit Provider Nurse Practitioner Family
DX: M85.89 Other specified disorders of bone density and structure, multiple sites (principal); Z78.0 Asymptomatic menopausal state
CPT/HCPCS: 77080

== ENCOUNTER 2024-11-08 02:50 | Observation (INO) | payer OTHER, SELFPAY ==
[2024-11-08] VITALS (28 sets, daily range): BP systolic 124–176; BP diastolic 61–104; PULSE 77–97; RESP 12–25; TEMP 36.9; O2SAT 97–100; BMI 22.5
--- NOTE | ~2024-11-08 | CT_ITS ---
EXAM: CTA brain carotid - 11/08/2024 03:51 CDT History: 64 years old Female with AMS, mental status changes [id number] TECHNIQUE: CT scan of the head without contrast. Subsequently CTA of the head and neck with intraveno us contrast was performed. 3-D reconstructed images of cerebral artery circulation were generated on a [employer] RTD workstation. Automatic exposure control was used for this study. CONTRAST: 100 cc of Omnipaque 350 was used for this study COMPARISON: None available. FINDINGS: CT HEAD WITHOUT CONTRAST: BRAIN PARENCHYMA: Landa-white differentiation is grossly maintained.No intra-axial hemorrhage or midli ne shift. No evidence of intraaxial mass. Mild chronic volume loss with scattered white matter hypo densities compatible with chronic microvascular ischemic changes. VENTRICLES/ EXTRA-AXIAL SPACES: No extra-axial hemorrhage or fluid collection. No evidence of extra-a xial mass. No hydrocephalus. CALVARIUM AND SINUSES: No calvarial fracture. The visualized sinuses and mastoid air cells are clear . CTA: Normal branching pattern of the thoracic aorta. Great vessels of the neck are patent. RIGHT ANTERIOR CIRCULATION: Innominate and right common carotid artery is normal in caliber. No significant stenosis at the carotid bifurcation by NASCET criteria. Cervical segment of the internal carotid artery is normal in caliber. Cavernous and supraclinoid segm ents of the internal carotid artery patent. M1 segment and middle cerebral artery bifurcation are unremarkable. A1 segment, anterior communicating artery complex and A2 segment are within normal limits. LEFT ANTERIOR CIRCULATION: Left common carotid artery is normal in caliber. No significant stenosis at the carotid bifurcation by NASCET criteria. Cervical segment of the internal carotid artery is normal in caliber. Cavernous and supraclinoid segm ents of the internal carotid artery patent. M1 segment and middle cerebral artery bifurcation are unremarkable. A1 segment, anterior communicating artery complex and A2 segment are within normal limits. POSTERIOR CIRCULATION: Vertebral arteries are codominant and patent throughout the neck. Intradural vertebral arteries are normal in caliber and terminate as the basilar artery. Basilar artery is normal in caliber. P1 and P2 segments of the posterior cerebral arteries are normal in caliber. OTHER: Multilevel degenerative changes of the visualized cervical spine. C3-C6 ACDF. Visualized lungs are cl ear. IMPRESSION: No evidence for acute intracranial hemorrhage or acute ischemic infarct on non-contrast CT. Unremarkable CTA of the head and neck. No evidence of cerebral artery aneurysm, stenosis or mass. *REFERENCES: NASCET CRITERIA: The degree of internal carotid artery (ICA) stenosis is based on NASCET criteria. No rmal is no stenosis. Mild is less than 50% stenosis. Moderate is 50-69% stenosis. Severe is 70-99% st enosis. Total occlusion is no detectable patent lumen. Reviewed, dictated and finalized at location A. IMPRESSION: No evidence for acute intracranial hemorrhage or acute ischemic infarct on non- contrast CT. Unremarkable CTA of the head and neck. No evidence of cerebral artery aneurysm , stenosis or mass. *REFERENCES: NASCET CRITERIA: The degree of internal carotid artery (ICA) stenosis is based on NASCET criteria. Normal is no stenosis. Mild is less than 50% stenosis. Mode rate is 50-69% stenosis. Severe is 70-99% stenosis. Total occlusion is no detec table patent lumen.
--- NOTE | ~2024-11-08 | MR_ITS ---
EXAM: MR brain/brain stem wo/w con - 11/08/2024 09:30 CDT HISTORY: 64 years old Female with Altered mental status TECHNIQUE: Multiplanar and multisequence MRI of the brain without and with contrast. COMPARISON: 11/08/2024 FINDINGS: BRAIN PARENCHYMA: No acute infarct or hemorrhage. No mass effect or herniation. Mild chronic volume loss. Few scattere d T2 hyperintensities in subcortical and periventricular white matter likely representing chronic vasu rovascular ischemic changes in this age group.. No pathological enhancement on post-contrast images. No susceptibility artifact on gradient echo images. VENTRICLES / EXTRA-AXIAL SPACES: No hydrocephalus or extra-axial fluid collections. CALVARIUM AND SINUSES: No calvarial lesions are visualized. The visualized sinuses and mastoid air ce lls are clear. FLOW VOID: Intact. OTHER EXTRACRANIAL STRUCTURES: Visualized structures are normal. IMPRESSION: 1. No evidence of acute ischemic infarct. 2. Mild cerebral volume loss and chronic small vessel ischemic disease. Reviewed, dictated and finalized at location A.
--- OUTSIDE RECORDS SUMMARY | 2024-11-08 02:52 | XMS_ITS | Encounter Summary ---
Author Organization [facility] Healthcare Address [address] [facility] [address] [place] [address] Care Team Providers Care Formula Clerk Name Role Phone Felicitas Samuel MD Primary Care Provider + Reanna Polanco RN Unavailable Unavailab Rohan Salvador MD Primary Care Provider Peyman Ortega MD Primary Care Provider Sera Morley MD Unavailable [phone] Reason for Visit * Reason Onset Date Comments CALL BACK 03/21/2018 Encounter Details Date Type Department Care Team (Late st Contact Info) Description 03/21/2018 Telephone [facility] [address] [facility] [address] [place] [address] Nancy Fernandez MD [address] [facility] [id number] [place] [address] CALL BACK Social History Tobacco Use Types Packs/Day Years Used Date Smoking Tobacco: Never Smokeless Tobacco: Never Comments Unknown Sex and Gender Information Value Date Recorded Sex Assigned at Not on file Legal Sex Female 2:03 AM EMERGENCY VETERINARY TECHNICIAN Gender Identity Female 08/26/2020 6:26 AM EMERGENCY VETERINARY TECHNICIAN Sexual Orientation Straight 08/26/2020 6: 26 AM EMERGENCY VETERINARY TECHNICIAN documented as of this encounter Plan of Treatment Not on file documented as of this encounter Visit Diagnoses Not on filedocumented in this encounter Care Teams Formula Clerk Relationship Specialty Start Date End Date Felicitas Samuel MD PCP - General 10/13/16 07/19/20 Rohan Rothman MD [address] [place] [address] PCP - General 07/20/20 05/12/24 Peyman Ortega MD [address] [facility] [address] [place] [address] PCP - General Family Practice 05/13/24 Reanna Polanco RN Registered Nurse 07/07/19 Sera Morley MD [address] [facility] [address] [place] [address] Referring Physician Gynecology 08/08/24 documented as of this encounter
--- OUTSIDE RECORDS SUMMARY | 2024-11-08 02:52 | XMS_ITS | Patient Health Record ---
Author Organization [facility] Address [address] [place] [address] Care Team Providers Care Spray Pilot Name Role Phone Radha Lundy Unavailable [phone] Migration, Provider Unavailable Unavailable Allergies Allergen (clinical drug ingredient) Drug/Non Drug Allergy documented on EMR Reaction Allergy Type Onset Date Status capsaicin Capsaicin Unknown Drug Allergy Active Decongestant Unknown Drug Allergy Acti ve Reason For Referral No Information Medications Medication SIG (Take, Route, Frequency, Duration) Notes Start Date End Date Status Cymbalta 60 MG 1 capsule Oral Twice daily for 90 days Active Singulair 10 MG Oral 10/24/2023 Unk nown Baclofen 10 MG Oral 10/24/2023 Unkn own Methocarbamol 500 MG Oral 10/24/2023 Unknown Vitamin C 100 MG Oral 10/24/2023 Un known Meloxicam 7.5 MG Oral 10/24/2023 Un known CALCIUM 600 + D(3) 600 MG-5 MCG (200 UNIT) CAPSULE *Reorder from [employer] for eRx and Interaction Alerts* 10/24/2023 Unknown Magnesium *Pick strength-form from [employer] for eRX* 10/24/2023 Unknown Lurasidone HCl 80 MG 1 tablet in the evening with food Oral Once a day for 90 days Active Estradiol-Norethindr one Acet 1-0.5 MG Oral 10/24/2023 Unknown Famotidine 10 mg Oral 10/24/2023 Un known L-Methylfolate 15 MG Oral 10/24/2023 Active Metoprolol Succinate ER 25 MG Oral 10/24/2023 Unknown Zolpidem Tartrate 10 MG 1 tablet at bedtime as needed Oral Once a day for 30 days 11/05/2024 12/05/2024 Active HYDROcodone-Acetamin ophen 10-300 MG 1 tablet as needed Oral every 6 hrs 10/24/2023 Unknown Social History Tobacco Use: Social [...] Problem Status W/U Status Risk Notes Problem 6195064 Primary insomnia (F51.01) Active confirmed Problem 71757188 CECE (generalized anxiety disorder) (F41.1) Active confirmed Problem 50904862 MDD (major depressive disorder), recurrent severe, 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) Active confirmed Vital Signs Heart Rate 82 /min 10/30/2024 Height-cm 167.64 cm 10/30/2024 Blood pressure diastolic 77 mm Hg 10/30/2024 Weight-kg 65.77 kg 10/30/2024 Height 66.00 in 10/30/2024 Blood pressure systolic 118 mm Hg 10/30/2024 Weight 145 lbs 10/30/2024 BMI 23.4 kg/m2 10/30/2024 Encounters Encounter Location Date Provider Diagnosis [facility] [address] [facility] [address] [address] 01/03/2024 Radha Lundy MDD (major depressiv e disorder), recurrent severe, 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 ; CECE (generalized anxiety disorder) F41.1 and Primary insomnia F51.01 [facility] [address] [facility] [address] [address] 04/02/2024 Radha Lundy MDD (major depressiv e disorder), recurrent severe, 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 ; CECE (generalized anxiety disorder) F41.1 and Primary insomnia F51.01 [facility] [address] [facility] [address] [facility] [address] [place] [address] 08/06/2024 Radha Lundy MDD (major depressiv e disorder), recurrent severe, 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 ; CECE (generalized anxiety disorder) F41.1 and Primary insomnia F51.01 [facility] [address] [facility] [address] [facility] [address] [place] [address] 09/03/2024 Radha Kamron MDD (major depressiv e disorder), recurrent severe, 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 ; CECE (generalized anxiety disorder) F41.1 and Primary insomnia F51.01 [facility] [address] [place] [address] 10/30/2024 Radha Kamron Encounter for screening for depression Z13.31 ; Encounter for screening for cardiovascular disorders Z13.6 ; MDD (major depressive disorder), recurrent severe, 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 ; CECE (generalized anxiety disorder) F41.1 and Primary insomnia F51.01 [facility] [address] [place] [address] 12/15/2023 Provider Migration [facility] [address] [place] [address] 12/16/2023 Provider Migration [facility], [place] [address] [place] [address] 01/01/[address] [facility] [address] [place] [address] 01/16/2024 Radha Kamron Primary insomnia F51.01 [facility] [address] [place] [address] 04/30/2024 Radha Kamron MDD (major depressiv e disorder), recurrent severe, 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 [place] [address] [place] [address] 05/02/2024 Radha Kamron Primary insomnia F51.01 [facility] [address] [place] [address] 06/28/2024 Radha Kamron MDD (major depressiv e disorder), recurrent severe, 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 [facility] [address] [place] [address] 07/31/2024 Radha Kamron CECE (generalized anxiety disorder) F41.1 [facility] [address] [place] [address] 07/31/[address] [facility] [address] [place] [address] 08/01/2024 Radha Kamron CECE (generalized anxiety disorder) F41.1 [facility] [address] [place] [address] 08/24/2024 Radha Kamron Primary insomnia F51.01 [facility] [address] [place] [address] 08/25/2024 Radha Kamron [place] [address] [facility] [address] [place] [address] 09/03/2024 Radha Kamron [place] [address] [facility] [address] [place] [address] 09/08/2024 Radha Kamron MDD (major depressiv e disorder), recurrent severe, 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 [place] [address] [facility] [address] [place] [address] 09/25/2024 Radha Kamron CECE (generalized anxiety disorder) F41.1 [place] [address] [address] 11/05/2024 Radha Kamron Primary insomnia F51.01 Assessments Encounter Date Diagnosis (ICD Code) Assessment Notes Treatment Notes Treatment Clinical Notes Section Notes 08/01/2024 CECE (generalized anxiety disorder) (ICD-10 - F41.1) 08/06/2024 MDD (major depressive disorder), recurrent severe, without psychosis (ICD-10 - F33.2) 08/24/2024 Primary insomnia (ICD-10 - F51.01) 04/02/2024 MDD (major depressive disorder), recurrent severe, without psychosis (ICD-10 - F33.2) 04/30/2024 MDD (major depressive disorder), recurrent severe, without psychosis (ICD-10 - F33.2) 05/02/2024 Primary insomnia (ICD-10 - F51.01) 06/28/2024 MDD (major depressive disorder), recurrent severe, without psychosis (ICD-10 - F33.2) 07/31/2024 CECE (generalized anxiety disorder) (ICD-10 - F41.1) 01/03/2024 MDD (major depressive disorder), recurrent severe, without psychosis (ICD-10 - F33.2) 01/16/2024 Primary insomnia (ICD-10 - F51.01) 09/03/2024 MDD (major depressive disorder), recurrent severe, [...] recurrent severe, without psychosis (ICD-10 - F33.2) 09/25/2024 CECE (generalized anxiety disorder) (ICD-10 - F41.1) 10/30/2024 Encounter for screening for depression (ICD-10 - Z13.31) 11/05/2024 Primary insomnia (ICD-10 - F51.01) 10/30/2024 Encounter for screening for cardiovascular disorders (ICD-10 - Z13.6) 08/06/2024 CECE (generalized anxiety disorder) (ICD-10 - F41.1) 09/03/2024 CECE (generalized anxiety disorder) (ICD-10 - F41.1) SSRI/SNRI side effects discussed including but not limited to, gastric upset, nausea, vomiting, diarrhea and/or constipation, weight changes, sexual side effects including loss of libido, increased suicidal thoughts/behavior s in children and young adults, and serotonin syndrome. 01/03/2024 CECE (generalized anxiety disorder) (ICD-10 - F41.1) 04/02/2024 CECE (generalized anxiety disorder) (ICD-10 - F41.1) 04/02/2024 Primary insomnia (ICD-10 - F51.01) 01/03/2024 Primary insomnia (ICD-10 - F51.01) 09/03/2024 Primary insomnia (ICD-10 - F51.01) Discussed risk of falls, do not take together with pain medication due to risk of respiratory depression, confusion, fall risk. 08/06/2024 Primary insomnia (ICD-10 - F51.01) 10/30/2024 MDD (major depressive disorder), recurrent severe, without [...] common with first generation antipsychotics) and more. 10/30/2024 CECE (generalized anxiety disorder) (ICD-10 - F41.1) SSRI/SNRI side effects discussed including but not limited to, gastric upset, nausea, vomiting, diarrhea and/or constipation, weight changes, sexual side effects including loss of libido, increased suicidal thoughts/behavior s in children and young adults, and serotonin syndrome. 10/30/2024 Primary insomnia (ICD-10 - F51.01) Discussed risk of falls, do not take together with pain medication due to risk of respiratory depression, confusion, fall risk. 01/03/2024 Other Stable on current medications. Patient [...] of psychotropic medications. -Crisis prevention hotline [phone]. 10/30/2024 Other Stable, continue current medications, declines need for medication adjustment. -refills sent in today Patient educated on all medications including potential benefits, side effects, risks. Educated on proper dosing schedule and importance of compliance. [place] PDMP report checked and consistent with prescription history, no controlled substance prescriptions from other providers. Plan Of Treatment Next Appt Details Provider Name:Radha Fowler Kamron, 11/27/2024 11:15:00 AM, [address], [place], [address], Insurance Providers Payer Name Payer Address Payer Phone Subscriber Number Group Number Insured Name Patient Relationship to Insured Coverage Start Date Coverage End Date [employer] [address] [address] [place] [address] [id number] KATRINA CAMARENA Self - patient is the insured Medical (General) History Medical History History ICD Code Problems: Generalized anxiety disorder Moderate recurrent major depression Primary insomnia , Surgical History Surgery Date(Month/Year) Endometrial ablation (63280) cervical fusion 08/09/2022
--- OUTSIDE RECORDS SUMMARY | 2024-11-08 02:52 | XMS_ITS | Clinical Summary ---
Author Organization [facility] Address [address] [place] [address] Care Team Providers Care Offc Spec Name Role Phone Unavailable Primary Care Provider Unavailabl e Encounters Date Type Department Care Team Description 10/15/2024 External Device Data STL ABSTRACTION Provider, Abstract 10/07/2024 External Device Data [facility] ABSTRACTION Provider, Abstract 10/07/2024 External Device Data [facility] ABSTRACTION Provider, Abstract 10/04/2024 External Device Data [facility] ABSTRACTION Provider, Abstract 10/03/2024 External Device Data [facility] ABSTRACTION Provider, Abstract 09/30/2024 External Device Data [facility] ABSTRACTION Provider, Abstract 09/16/2024 External Device Data [facility] ABSTRACTION Provider, Abstract 08/21/2024 External Device Data [facility] ABSTRACTION Provider, Abstract 08/19/2024 External Device Data [facility] ABSTRACTION Provider, Abstract 08/12/2024 External Device Data STL ABSTRACTION Provider, Abstract from Last 3 Months Social History Tobacco Use Types Packs/Day Years Used Date Smoking Tobacco: Never Assessed Comments Unknown Sex and Gender Information Value Date Recorded Sex Assigned at Not on file Legal Sex Female 6:44 PM SYSTEMATIC THEOLOGY PROFESSOR Gender Identity Not on file Sexual Orientation Not on file Plan of Treatment Health Maintenance Due Date Last Done Comments HPV/Cotest (21-29) 1981 CERVICAL CANCER SCREENING 1990 HPV/Cotest (30-65) 1990 PAP SMEAR 1990 COLORECTAL SCREENING 2005 Colorectal Cancer Screening 2005 FIT-DNA Q 3 years 2005 FIT/FOBT Q 1 year 2005 Flex Sig/CT Colonography Q 5 years 2005 ZOSTER VACCINE (1 of 2) 2010 INFLUENZA VACCINE (#1) 2024 , 05/04/2020, 05/05/2019, Additional history exists BREAST CANCER SCREENING 08/07/2025 08/07/19 25, 07/08/2024, 05/16/2023, Additional history exists DTAP/TDAP/TD VACCINES (2 - T d or Tdap) 04/18/2028 04/18/2018 RSV VACCINE (60+ or ) (1 - 1-dose 75+ series) 2035 Procedures Procedure Name Priority Date/Time Associated Diagnosis Comments MAMMO DIAGNOSTIC UNI LEFT W OR WO CAD Routine 08/07/2024 1:23 PM SYSTEMATIC THEOLOGY PROFESSOR Abnormal mammogram from Last 3 Months or Most Recently Relevant to Health Maintenance Results * (ABNORMAL) MAMMO DIAGNOSTIC UNI LEFT W OR WO CAD (08/07/2024 1:23 PM SYSTEMATIC THEOLOGY PROFESSOR) Anatomical Region Laterality Modality Breast Left Mammography 08/07/2024 1:23 PM SYSTEMATIC THEOLOGY PROFESSOR Narrative 08/07/2024 1:28 PM SYSTEMATIC THEOLOGY PROFESSOR EXAM: MAMMO DIAGNOSTIC UNI LEFT W OR [...] Final Re sult from Last 3 Months or Most Recently Relevant to Health Maintenance Insurance [facility] OPEN ACCESS HMO
--- OUTSIDE RECORDS SUMMARY | 2024-11-08 02:52 | XMS_ITS | Encounter Summary ---
Author Organization [facility] Healthcare Address [address] [place] [address] Care Team Providers Care Lollypop Machine Operator Name Role Phone Felicitas Samuel MD Primary Care Provider + Reanna Polanco RN Unavailable Unavailab Rohan Salvador MD Primary Care Provider Peyman Ortega MD Primary Care Provider Sera Morley MD Unavailable [phone] Encounter Details Date Type Department Care Team (Late st Contact Info) Description 01/15/2020 Telephone [facility] [place] [facility] [address] [facility] [address] [place] [address] Nancy Fernandez MD [address] [facility] [id number] [place] [address] Social History Tobacco Use Types Packs/Day Years Used Date Smoking Tobacco: Former Smokeless Tobacco: Never Alcohol Use Standard Drinks/Week Comments No 0 (1 standard drink = 0.6 oz pur e alcohol) Comments No Sex and Gender Information Value Date Recorded Sex Assigned at Not on file Legal Sex Female 2:03 AM VASC TECH Gender Identity Female 08/26/2020 6:26 AM VASC TECH Sexual Orientation Straight 08/26/2020 6: 26 AM VASC TECH documented as of this encounter Plan of Treatment Not on file documented as of this encounter Goals Goal Patient Goal Type Associated Problems Recent Progress Patient-Stated? Author CCM Chronic Pain Care Plan Chronic Care Management No change(10/09 8:13 AM CDT) No Bessy Mancuso, RN Note: Problem: Chronic Pain Goals: 1. Minimize further functional decline 2. Maximize quality of life 3. Control pain Strategies: - Activity/exercise program recommendation - Conservative stepwise pain medicine strategy with multi-disciplinary approach - Recommend healthy lifestyle strategies and compensatory methods as needed documented as of this encounter Visit Diagnoses Not on filedocumented in this encounter Care Teams Lollypop Machine Operator Relationship Specialty Start Date End Date Felicitas Samuel MD PCP - General 10/13/16 07/19/20 Rohan Rothman MD [address] [place] [address] PCP - General 07/20/20 05/12/24 Peyman Ortega MD [address] [facility] [address] [place] [address] PCP - General Family Practice 05/13/24 Reanna Polanco RN Registered Nurse 07/07/19 Sera Morley MD [address] [facility] [address] [address] [place] [address] Referring Physician Gynecology 08/08/24 documented as of this encounter
--- OUTSIDE RECORDS SUMMARY | 2024-11-08 02:52 | XMS_ITS | CONTINUITY OF CARE DOCUMENT ---
Author Name harvey gabriel Address Unknown Organization [facility] Address [address] [facility] [facility] [address] [place] [address] Phone [phone] Care Team Providers Care Director Of Resource Development Name Role Phone harvey gabriel Unavailable Unavailable
--- OUTSIDE RECORDS SUMMARY | 2024-11-08 02:53 | XMS_ITS | Encounter Summary ---
Author Organization [facility] Healthcare Address [address] [place] [address] Care Team Providers Care Senior Quality Engineer Name Role Phone Felicitas Samuel MD Primary Care Provider + Reanna Polanco RN Unavailable Unavailab Rohan Salvador MD Primary Care Provider Peyman rOtega MD Primary Care Provider Sera Morley MD Unavailable [phone] Reason for Visit * Reason Onset Date Comments Prior Auth 06/11/2019 Celecoxib 200mg Encounter Details Date Type Department Care Team (Late st Contact Info) Description 06/11/2019 Telephone [facility] [place] [facility] [address] [facility] [address] [place] [address] Nancy Fernandez MD [address] [facility] [phone] [place] [address] Prior Auth (Celecoxib 200mg) Social History Tobacco Use Types Packs/Day Years Used Date Smoking Tobacco: Never Smokeless Tobacco: Never Alcohol Use Standard Drinks/Week Comments No 0 (1 standard drink = 0.6 oz pur e alcohol) Comments No Sex and Gender Information Value Date Recorded Sex Assigned at Not on file Legal Sex Female 2:03 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 Author CCM Chronic Pain Care Plan Chronic Care Management No change(10/09 8:13 AM CDT) No Bessy Mancuso, RUBIO Note: Problem: Chronic Pain Goals: 1. Minimize further functional decline 2. Maximize quality of life 3. Control pain Strategies: - Activity/exercise program recommendation - Conservative stepwise pain medicine strategy with multi-disciplinary approach - Recommend healthy lifestyle strategies and compensatory methods as needed documented as of this encounter Visit Diagnoses Not on filedocumented in this encounter Care Teams Senior Quality Engineer Relationship Specialty Start Date End Date Felicitas Samuel MD PCP - General 10/13/16 07/19/20 Rohan Rothman MD [address] [place] [address] PCP - General 07/20/20 05/12/24 Peyman Ortega MD [address] [facility] [address] [place] [address] PCP - General Family Practice 05/13/24 Reanna Polanco RN Registered Nurse 07/07/19 Sera Morley MD [address] [place], [place] [id number] Referring Physician Gynecology 08/08/24 documented as of this encounter
--- OUTSIDE RECORDS SUMMARY | 2024-11-08 02:53 | XMS_ITS | Referral Summary ---
Author Organization [facility] Address [address] [place] [address] Care Team Providers Care Swatcher Name Role Phone Reanna Polanco RN Unavailable Unavailab Peyman Carvajal MD Primary Care Provider Sera Morley MD Unavailable [phone] Encounters Date Type Department Care Team Description 10/09/2024 8:18 AM CDT - 10/09/2024 11:59 PM CDT Hospital Encounter [address] [address] Chronic use of nonprescription opiate drugs (HCC) Discharge Disposition: Discharge to home or self care 10/09/2024 Telephone [facility] Medicine [address] [place] [address] [facility] [address] [place] [address] Nancy Fernandez MD Form for back brace faxed to Coil Inspector 10/09/2024 Orders Only [facility] [address] [facility] [address] [place] [address] Nancy Fernandez MD Chronic use of nonprescription opiate drugs (HCC) (Primary Dx) 10/09/2024 7:58 AM CDT - 10/09/2024 11:59 PM CDT Hospital Encounter [facility] [address] [facility] [address] [place] [address] Nancy Fernandez MD Sacroiliac joint dysfunction (Primary Dx); Chronic use of opiate drug for therapeutic purpose; Rotoscoliosis; Pain of lumbar facet joint Discharge Disposition: Discharge to home or self care 10/01/2024 11:15 AM [employer] PORT[employer] DEVELOPER Therapy [facility] Physical Therapy [address] [place] [address] Florinda Mcneal PTA Cervicalgia (Primary Dx) 09/23/2024 Results Follow-Up [facility] Surgery [address] [place] [address] Floor 8 [place] [id number] Viry Kennedy NP 09/23/2024 Telephone [facility] Surgery [address] [place] [address] Floor 8 [place] [id number] Viry Kennedy NP 09/18/2024 2:11 PM [employer] PORTAL DEVELOPER - 09/18/2024 11:59 PM [employer] PORT[employer] DEVELOPER Hospital Encounter [facility] - Breast Imaging [address] [facility] Floor 8 [place] [address] Abnormal mammogram Discharge Disposition: Discharge to home or self care 09/18/2024 1:30 PM [employer] PORTAL DEVELOPER - 09/18/2024 11:59 PM [employer] PORT[employer] DEVELOPER Hospital Encounter [facility] - Breast Imaging [address] [place] [address] Floor 8 [place] [address] Abnormal mammogram Discharge Disposition: Discharge to home or self care 09/17/2024 9:15 AM [employer] PORTAL DEVELOPER Office Visit [facility] Surgery [address] [place] [address] Floor 8 [place] [phone] Viry Kennedy NP Abnormal finding on breast imaging (Primary Dx); Microcalcification of left breast on mammogram 09/09/2024 8:23 AM [employer] PORTAL DEVELOPER - 09/09/2024 11:59 PM [employer] PORTAL DEVELOPER Hospital Encounter [facility] [address] [facility] [address] [place] [address] Nancy Fernandez MD Bilateral low back pain without sciatica, unspecified chronicity (Primary Dx); Sacroiliac joint dysfunction; Chronic use of opiate drug for therapeutic purpose Discharge Disposition: Discharge to home or self care 09/08/2024 2:00 PM [employer] PORTAL DEVELOPER Therapy [facility] Physical Therapy [address] [facility] [address] [place] [address] Lyle Watson DPT Cervicalgia (Primary Dx) 09/05/2024 Telephone [facility] [address] [facility] [address] [place] [address] Nancy Fernandez MD [facility] Preprocedure 09/03/2024 Telephone [facility] Breast [facility] ([facility]) [address] [place] [address] Gail Johnson RN 08/28/2024 Telephone [facility] Breast [facility] ([facility]) [address] [place] [address] Gail Johnson RN 08/26/2024 6:06 PM [employer] PORTAL DEVELOPER - 08/26/2024 11:59 PM [facility] ([facility]) [address] [place] [address] Discharge Disposition: Discharge to home or self care 08/26/2024 1:00 PM [employer] PORT[employer] DEVELOPER Therapy [facility] Physical Therapy [facility] [address] [place] [address] Florinda Mcneal PTA Cervicalgia (Primary Dx) 08/22/2024 Orders Only [facility] [address] [facility] [address] [place] [address] Modesta Mary, RUBIO 08/15/2024 Orders Only [facility] Surgery [facility] Floor 8 [place] [address] Viry Kennedy NP 08/13/2024 Orders Only [facility] Surgery [facility] Floor 8 [place] [address] Viry Kennedy NP Abnormal mammogram (Primary Dx) 08/13/2024 1:00 PM [employer] PORTAL DEVELOPER Therapy [facility] Physical Therapy [address] [place] [address] Lyle Watson DPT Cervicalgia (Primary Dx) 08/11/2024 12:15 PM [employer] PORTAL DEVELOPER - 08/11/2024 11:59 PM [employer] PORTAL DEVELOPER Hospital Encounter [facility] [address] [facility] [address] [place] [address] Nancy Fernandez MD Sacroiliac joint dysfunction (Primary Dx); Chronic use of opiate drug for therapeutic purpose; Rotoscoliosis; Fibromyalgia Discharge Disposition: Discharge to home or self care from Last 3 Months Allergies Active Allergy [...] (two) times a day 04/22/20 24 Active meloxicam (MOBIC) 15 mg tablet Take 1 tablet (15 mg total) by mouth daily 90 tablet 3 07/01/20 24 Active back brace [facility]- back brace for scoliosis 1 each 07/01/20 24 Active lurasidone (LATUDA) 80 mg tablet TAKE 1 TABLET BY MOUTH DAILY IN THE EVENING WITH FOOD 08/07/19 25 Active HYDROcodone-ac etaminophen (NORCO) 10-325 mg per tabletIndicati ons:Pain Take 1 tablet by mouth every 6 (six) hours as needed for pain 120 tablet 10/23/19 25 Active methocarbamoL (ROBAXIN) 500 mg tablet Take 2 tablets (1,000 mg total) by mouth 4 (four) times a day as needed for muscle spasms 240 tablet 2 11/05/19 25 Active methocarbamoL (ROBAXIN) 500 mg tablet Take 2 tablets (1,000 mg total) by mouth 4 (four) times a day as needed for muscle spasms 240 tablet 06/19/20 24 025 Discontin ued(Reord er) HYDROcodone-ac etaminophen (NORCO) 10-325 mg per tabletIndicati ons:Pain Take 1 tablet by mouth every 6 (six) hours as needed for pain 120 tablet 09/22/19 25 025 Discontin ued(Reord er) Active Problems Problem Noted Date Diagnosed Date Other spondylosis with radiculopathy, lumbar reg ion 11/27/2023 Cervical post-laminectomy syndrome 10/31/2022 Cervical spinal stenosis 08/09/2022 Osteoporosis 08/09/2022 GERD (gastroesophageal reflux disease) 3 S/P cervical discectomy 08/09/2022 Spinal stenosis of cervical region 07/07/2022 Overview (10/18/2023): Added automatically from request for surgery [id number] Added automatically from request for surgery [id number] Rotoscoliosis 11/30/2020 Sacroiliac joint dysfunction 11/30/2020 Muscle [...] you have a drink containing alcohol? Never 10/09/2024 Q2: How many drinks containi ng alcohol do you have on a typical day when you are drinking? Patient does not drink Q3: How often do you have si x or more drinks on one occasion? Never 10/09/2024 Hunger Vital Sign Answer Date Recorded Within the past 12 months, y ou worried that your food would run out before you got the money to buy more. Never true 10/10/19 25 Within the past 12 months, t he food you bought just didn't last and you didn't have money to get more. Never true 10/09/2024 Personal Safety Answer Date Recorded Getting School Help Needed Denies 07/11 Comments No Sex and Gender Information Value Date Recorded Sex Assigned at Not on file Legal Sex Female 2:03 AM [employer] PORTAL DEVELOPER Gender Identity Female 08/26/2020 6:26 AM [employer] PORTAL DEVELOPER Sexual Orientation Straight 08/26/2020 6: 26 AM [employer] PORTAL DEVELOPER Last Filed Vital Signs Vital Sign Reading Time Taken Comments Blood Pressure 132/78 10/09/2024 8:03 AM CDT 90 Pulse 76 10/09/2024 8:03 AM CDT Temperature 36.4 C (97.5 F) 10/09/2024 8:03 AM CDT Respiratory Rate 10 10/09/2024 8:03 AM CDT Oxygen Saturation 97% 10/09/2024 8:03 AM CDT Inhaled Oxygen Concentration - - Weight 66.7 kg (147 lb 1.6 oz) 10/09/2024 8:03 A M CDT Height 167.6 cm (5' 6 ) 10/09/2024 8:03 AM CDT Body Mass Index 23.74 10/09/2024 8:03 AM CDT Plan of Treatment Not on file Goals [...] as needed Medical Devices Implanted Type Area [employer] Manager Device Identifier Shelf Expiration Date Model / Serial / Lot Ray Right: Eye Musculoskeletal Transplant [id number] Frozen Spine 7d Lordotic Trapezoid Spacer Allograft [id number] - [id number] - [id number] Implanted:Qty: 1 on 08/09/2022 by Olivier Marion MD at [facility] N/A: Spine Cervical Musculoskeletal Transplant [id number] 05/18/2026 [id number] / [id number] / Musculoskeletal Transplant [id number] Frozen Spine 7d Lordotic Trapezoid Spacer Allograft [id number] - [id number] - [id number] Implanted:Qty: 1 on 08/09/2022 by Olivier Marion MD at [facility] N/A: Spine Cervical Musculoskeletal Transplant [id number] 04/24/2026 [id number] / [id number] / Musculoskeletal Transplant [id number] Frozen Spine 7d Lordotic Trapezoid Spacer Allograft 354455 - [id number] - [id number] Implanted:Qty: 1 on 08/09/2022 by Olivier Marion MD at [facility] N/A: Spine Cervical Musculoskeletal Transplant [id number] 12/12/2026 [id number] / [id number] / [employer] 4mm 16mm Fix Screw Bone [id number] - [id number] Implanted:Qty: 8 on 08/09/2022 by Olivier Marion MD at [facility] N/A: Spine Cervical [employer] [id number] / / [employer] C-Pancho Maxan 51mm Level 3 Fix Spine Cervical Anterior Plate Bone [id number] - [id number] Implanted:Qty: 1 on 08/09/2022 by Olivier Marion MD at [facility] N/A: Spine Cervical [employer] [id number] / / [employer] Eviva 13cm Identifier Biopsy Site [id number] - [id number] Implanted:Qty: 1 on 09/18/2024 at [facility] Left: Breast [employer] [id number] 03/03/2025 SMARK-EV CARMEN-13 / / [id number] Procedures Procedure Name Priority Date/Time Associated Diagnosis Comments TARGET OPIOID SCREEN BY THROW OUT CLERK Routine 10/09/2024 8:18 AM CDT Chronic use of nonprescription opiate drugs (HCC) DRUGS OF ABUSE SCREEN, URINE WITH REFLEX CONFIRMATION Routine 10/09/2024 8:18 AM CDT Chronic use of nonprescription opiate drugs (HCC) PAIN MANAGEMENT PROFILE Routine 10/09/2024 8:18 AM CDT Chronic use of nonprescription opiate drugs (HCC) STEREOTACTIC BREAST BIOPSY LEFT Schedule Routine, Read Routine (OP Routine) 09/18/2024 3:39 PM [employer] PORTAL DEVELOPER Abnormal mammogram SURGICAL PATHOLOGY Routine 09/18/2024 3: 37 PM [employer] PORTAL DEVELOPER Abnormal mammogram DIAGNOSTIC MAMMOGRAM LEFT W NIKOLAS Schedule Routine, Read Routine (OP Routine) 09/18/2024 2:30 PM [employer] PORTAL DEVELOPER Abnormal mammogram PAIN MGMT IMAGING SI JOINT BILATERAL ARTHROGRPHY Schedule Routine, Read Routine (OP Routine) 09/09/2024 9:25 AM [employer] PORTAL DEVELOPER Sacroiliac joint dysfunction BREAST IMAGING MG DIAGNOSTIC OUTSIDE CONSULT Routine 08/26/2024 6:06 PM [employer] PORTAL DEVELOPER from Last 3 Months Results * Targeted Opioid Screen, Ur (10/09/2024 8:18 AM CDT) Pain mgt 6-Acetylmorphine, Ur Not Detected CutOff 10 ng/mL Pain mgt Buprenorphine, Ur Not Detected CutOff 5 ng/mL [facility] Pain mgt Buprenorphine metabolite (Norbuprenorphine), Ur Not Detected CutOff 5 ng/mL [facility] Pain mgt Codeine, Ur Not Detected CutOff 25 ng/mL [facility] Pain mgt Hydrocodone, Ur Detected CutOff 25 ng/mL [facility] Pain mgt Hydromorphone, Ur Not Detected CutOff 25 ng/mL [facility] Pain mgt Methadone, Ur Not Detected CutOff 25 ng/mL [facility] Pain mgt Methadone Metabolite (EDDP), Ur Not Detected CutOff 25 ng/mL [facility] Pain mgt Morphine, Ur Not Detected CutOff 25 ng/mL [facility] Pain mgt Oxycodone, Ur Not Detected CutOff 25 ng/mL [facility] Pain mgt Oxymorphone, Ur Not Detected CutOff 25 ng/mL [facility] Pain mgt Tapentadol, Ur Not Detected CutOff 25 ng/mL [facility] Pain mgt Tramadol, Ur Not Detected CutOff 25 ng/mL [facility] Pain mgt Tramadol metabolite (O-desmethyltramado l), Ur Not Detected CutOff 25 ng/mL [facility] Comment: Interpretive Data This test [...] developed and its performance characteristics determined by [facility]. It has not been cleared or approved by the U.S. Food and Drug Administration. Current interpretive data was last revised 19. Pain mgt Naloxone, ur Not Detected cutoff 20 ng/ml [facility] Urine 10/09/2024 8:18 AM CDT 10/09/2024 4:17 PM CDT us Nancy Fernandez MD LAB URINE ORDERABLES Final Result [facility] One [facility] Department of Laboratories [place], [place] [id number] * (ABNORMAL) Drugs of Abuse Screen, Urine with Reflex Confirmation (10/09/2024 8:18 AM CDT) [facility] Amphetamine, ur Not Detected CutOff 500ng/mL Comment: Interpretive Data - Amphetamines: Samples containing greater than 500 ng/mL d-methamphetamine or other cross-reacting amphetamine compounds are reported as positive. Amphetamine immunoassays are subject to significant false positive rates due to cross-reactivity of non-amphetamine drugs. Confirmatory testing required for definitive results. Current Interpretive Data was last reviewed 2023. Barbiturates, ur Not Detected CutOff 200ng/mL [facility] Comment: Interpretive Data - Barbiturates: Samples containing greater than 200 ng/mL secobarbital or other cross-reacting barbiturate compounds are reported as positive. False positive and false negative results are possible. Confirmatory testing required for definitive results. Current Interpretive Data was last reviewed 2023. Benzodiazepines, ur Screen Positive, presumptive (A) CutOff 100ng/mL [facility] Comment: Interpretive Data - Benzodiazepines: Samples containing greater than 100 ng/mL nordiazepam or other cross-reacting compounds are reported as positive. False positive and false negative results are possible. Confirmatory testing required for definitive results. Current Interpretive Data was last reviewed 2023. Cannabinoids, ur Screen Positive, presumptive (A) CutOff 50 ng/mL [facility] Comment: Interpretive Data - Cannabinoids: Samples containing greater than 50 ng/mL delta-9 THC -COOH or other cross- reacting compounds are reported as positive. False positive and false negative results are possible. Confirmatory testing required for definitive results. Current Interpretive Data was last reviewed 2023. Cocaine, ur Not Detected CutOff 150ng/mL [facility] Comment: Interpretive Data - Cocaine: Samples containing greater than 150 ng/mL benzoylecgonine or other cross- reacting compounds are reported as positive. False positive and false negative results are possible. Confirmatory testing required for definitive results. Current Interpretive Data was last reviewed 2023. Fentanyl, Ur Not Detected CutOff 5 ng/mL [facility] Comment: Interpretive Data - Fentanyl: Samples containing greater than 5 ng/mL norfentanyl, fentanyl, or other cross-reacting fentanyl compounds are reported as positive. False positive and false negative results are possible. Confirmatory testing required for definitive results. Current Interpretive Data was last reviewed 2023. Methadone, ur Not Detected CutOff 300ng/mL [facility] Comment: Interpretive Data - Methadone: Samples containing greater than 300 ng/mL d,l-methadone or other cross-reacting compounds are reported as positive. False positive and false negative results are possible. Confirmatory testing required for definitive results. Current Interpretive Data was last reviewed 2023. Opiates, ur Screen Positive, presumptive (A) CutOff 300ng/mL [facility] Comment: Interpretive Data - Opiates: Samples containing greater than 300 ng/mL morphine or other cross-reacting compounds are reported as positive. False positive and false negative results are possible. Confirmatory testing required for definitive results. Current Interpretive Data was last reviewed 2023. Oxycodone, ur Not Detected CutOff 100ng/mL [facility] Comment: Interpretive Data - Oxycodone: Samples containing greater than 100 ng/mL oxycodone or other cross-reacting compounds are reported as positive. False positive and false negative results are possible. Confirmatory testing required for definitive results. Current Interpretive Data was last reviewed 2023. Phencyclidine, ur Not Detected CutOff 25 ng/mL [facility] Comment: Interpretive Data - Phencyclidine: Samples containing greater than 25 ng/mL phencyclidine or other cross-reacting compounds are reported as positive. False positive and false negative results are possible. Confirmatory testing required for definitive results. Current Interpretive Data was last reviewed 2023. Urine Creatinine 282 mg/dL [facility] Comment: Interpretive Data Urine Creatinine: < 10 mg/dL is extremely dilute = or > 10 but < 20 mg/dL is dilute = or > 20 mg/dL is normal Current Interpretive Data was last revised on 2017. Urine 10/09/2024 8:18 AM CDT 10/09/2024 4:17 PM CDT Narrative [facility] - 10/09/2024 4:42 PM CDT Drug of Abuse screening is performed by immunoassay for medical purposes only. This is not to be used for Pain Management purposes. If Detected, confirmation testing will be performed for Amphetamines, Cocaine, Fentanyl, Methadone, Opiates, Oxycodone or Phencyclidine. Nancy Fernandez MD LAB URINE ORDERABLES Final Result [facility] One [facility] [address] * Stereotactic Breast Biopsy Left (09/18/2024 3:39 PM [employer] WEB[employer] PORTAL DEVELOPER) Anatomical Region Laterality Modality Breast Left Mammography 09/18/2024 4:55 PM [employer] PORTAL DEVELOPER Addenda Addendum by Cierra Torres MD on 09/22/2024 2:54 PM [employer] PORTAL DEVELOPER PATHOLOGY RESULTS: Diagnosis: Breast, left, upper outer mid depth, core biopsy - Calcifications associated with columnar cell change and benign lobules - Fibrocystic changes - No evidence of atypia or malignancy Please refer to pathology report for details. Pathology is benign and concordant. Normal interval screening mammography is recommended. Results and recommendations will be discussed with the patient by [facility] or Breast Surgical Oncology staff. Electronically signed by: Cierra Torres M.D. Impressions 09/18/2024 4:55 PM [employer] PORTAL DEVELOPER Successful vacuum-assisted core needle biopsy of the LEFT breast. Pathology is pending. ASSESSMENT: Post Procedure Mammograms for Marker Placement Electronically signed by: Cierra Torres M.D. Narrative 09/18/2024 4:55 PM [employer] PORTAL DEVELOPER EXAMINATION: LEFT STEREOTACTIC BREAST VACUUM-ASSISTED CORE BIOPSY UTILIZING TOMOSYNTHESIS AND STEREOTACTIC GUIDANCE, PLACEMENT OF A BIOPSY SITE TISSUE MARKER CLIP, AND LEFT FULL FIELD DIGITAL MAMMOGRAM WITH DIGITAL BREAST TOMOSYNTHESIS HISTORY: Abnormal mammogram. Suspicious left breast microcalcifications. Image guided core needle biopsy is requested to evaluate for malignancy. COMPARISON: 08/26/2024 BREAST PARENCHYMAL COMPOSITION: The breasts are extremely dense, which lowers the sensitivity of mammography. PROCEDURE AND FINDINGS: The risks and potential benefits of the procedures were discussed with the patient and written informed consent was obtained. After a time-out procedure, the patient was placed in the upright seated position on the biopsy unit. The area of interest was localized and targeted utilizing digital imaging with tomosynthesis and stereotaxis. After sterile preparation of the skin, 1% lidocaine and 1% lidocaine with epinephrine were utilized for local anesthesia. A small skin incision was made with a #11 scalpel blade and a 9 gauge Brevera vacuum-assisted biopsy needle was advanced to the area of interest from a superior approach utilizing stereotactic guidance. A total of 4 tissue cores were then obtained; these were submitted to surgical pathology in formalin for histologic analysis. The specimen radiograph demonstrates that the calcifications of interest are included within the tissue cores. A SecurMark Mini Cork tissue marker clip was placed at the biopsy site. The needle was removed, hemostasis was achieved, and Dermabond was applied. There was no evidence of significant immediate complication. The patient was given verbal as well as written post procedural instructions prior to release from the department. A two-view LEFT digital mammogram, including digital breast tomosynthesis, post procedure demonstrates that the tissue marker clip is in the expected position. The attending radiologist, Dr. Cierra Torres M.D., was present throughout the entire procedure. Procedure Note Cierra Torres MD - 09/18/2024 EXAMINATION: LEFT STEREOTACTIC BREAST VACUUM-ASSISTED CORE BIOPSY UTILIZING TOMOSYNTHESIS AND STEREOTACTIC GUIDANCE, PLACEMENT OF A BIOPSY SITE TISSUE MARKER CLIP, AND LEFT FULL FIELD DIGITAL MAMMOGRAM WITH DIGITAL BREAST TOMOSYNTHESIS HISTORY: Abnormal mammogram. Suspicious left breast microcalcifications. Image guided core needle biopsy is requested to evaluate for malignancy. COMPARISON: 08/26/2024 BREAST PARENCHYMAL COMPOSITION: The breasts are extremely dense, which lowers the sensitivity of mammography. PROCEDURE AND FINDINGS: The risks and potential benefits of the procedures were discussed with the patient and written informed consent was obtained. After a time-out procedure, the patient was placed in the upright seated position on the biopsy unit. The area of interest was localized and targeted utilizing digital imaging with tomosynthesis and stereotaxis. After sterile preparation of the skin, 1% lidocaine and 1% lidocaine with epinephrine were utilized for local anesthesia. A small skin incision was made with a #11 scalpel blade and a 9 gauge Brevera vacuum-assisted biopsy needle was advanced to the area of interest from a superior approach utilizing stereotactic guidance. A total of 4 tissue cores were then obtained; these were submitted to surgical pathology in formalin for histologic analysis. The specimen radiograph demonstrates that the calcifications of interest are included within the tissue cores. A SecurMark Mini Cork tissue marker clip was placed at the biopsy site. The needle was removed, hemostasis was achieved, and Dermabond was applied. There was no evidence of significant immediate complication. The patient was given verbal as well as written post procedural instructions prior to release from the department. A two-view LEFT digital mammogram, including digital breast tomosynthesis, post procedure demonstrates that the tissue marker clip is in the expected position. The attending radiologist, Dr. Cierra Torres M.D., was present throughout the entire procedure. IMPRESSION: Successful vacuum-assisted core needle biopsy of the LEFT breast. Pathology is pending. ASSESSMENT: Post Procedure Mammograms for Marker Placement Electronically signed by: Cierra Torres M.D. Viry Kennedy NP IM MAMMO PROCEDURES Edite d Result - Final * Surgical pathology (09/18/2024 3:37 PM [employer] WEB[employer] PORTAL DEVELOPER) Tissue specimen (specimen) (Breast biopsy, needle core) 09/18/2024 3:37 PM [employer] PORTAL DEVELOPER Comment:LEFT breast - uprigh t stereo biopsy - Upper Outer Mid Depth - Calcs - CAT 4A Narrative PATHOLOGY TEMP [facility] FOR ASP - 09/22/2024 11:21 AM [employer] WEBSPH[employer] PORTAL DEVELOPER EPIC results best viewed via link to PDF [facility] [place] [address] Note to Patients: This report may contain a detailed description of human tissue sent by a health care provider to the laboratory for pathologic evaluation. The content of this report is essential for diagnosis and may provide important critical findings. This information may be unfamiliar to patients to review without a medical professional present. It is advised that the patient review this report in the presence of a health care provider who can answer questions and explain the details. SURGICAL PATHOLOGY REPORT FINAL Patient Name: ANNETTE CAMARENA Gender: F : 1960 (Age: 64) Address: [address] [place] [address] Hospital #: [id number] Taken:09/18/2024 Received:09/18/2024 Reported: 09/22/2024 Patient Type: [facility] Ancillary Service: UNKNOWN Location: Physician(s): Viry Kennedy, CHARLEEN Ortega MD Diagnosis: Breast, left, upper outer mid depth, core biopsy - Calcifications associated with columnar cell change and benign lobules - Fibrocystic changes - No evidence of atypia or malignancy syja/09/20/2024 11:30 By this signature, I attest that the above diagnosis is based upon my personal examination of the slides(and/or other material indicated in the diagnosis). Cammy De León MD Report Electronically Reviewed and Signed Out By Cammy De León MD 09/22/2024 11:21:33 Peggy Eagle M.D. History: The patient is a 64-year-old woman presenting for abnormal mammogram. Operative procedure: Left breast biopsy, BI-RADS 4A. Specimen(s) Received: A: Left breast upright stereo biopsy upper outer mid depth calcs cat 4a Gross Description: Received in formalin, labeled with the patient s identifiers and left breast upright stereo biopsy upper outer mid depth calcs BI-RADS 4A are five yellow and white cores of fibrofatty tissue (1.9-2.7 cm each in length by 0.3 cm in diameter). The cores designated on the jar lid are labeled A1 to A2 and the remaining cores are labeled A3. Jar 0. Placed in formalin immediately after collection. Total fixation time= 26.0 hours. sxst/09/19/2024 11:44 PA(s): Corine Ledezma By this signature, I attest that the above diagnosis is based upon my personal examination of the slides(and/or other material). Addenda/Procedures The performance characteristics of some immunohistochemical stains, fluorescence in-situ hybridization tests and immunophenotyping by flow cytometry cited in this report (if any) were determined by the Surgical Pathology and Flow Cytometry Departments at [facility] as part of an ongoing quality associate program and in compliance with federally mandated regulations drawn from the Clinical Laboratory Improvement Act of 1988 (CLIA '88). Some of these tests rely on the use of analyte specific reagents and are subject to specific labeling requirements by the US Food and Drug Administration. Such diagnostic tests may only be performed in a facility that is certified by the Department of Health and Human Services as a high complexity laboratory under CLIA '88. The FDA has determined that such clearance or approval is not necessary. This test is used for clinical purposes. It should not be regarded as investigational or for research. Nevertheless, federal rules concerning the medical use of analyte specific reagents require that the following disclaimer be attached to the report: This test was developed and its performance characteristics determined by the Surgical Pathology and Flow Cytometry Departments of [facility]. It has not been cleared or approved by the U. S. Food and Drug Administration. IMAGES AND SCANNED DOCUMENTS, IF INCLUDED, ONLY VIEWABLE IN PDF VERSION OF REPORT Viry Marinelli Marcia WEBSPH[employer] PROCESS SERVER DEVELOPER LAB PATHOLOGY ORDERABLES F inal Result PATHOLOGY TEMP [facility]B FOR ASP * Diagnostic Mammogram Left W Nikolas (09/18/2024 2:30 PM [employer] WEBSPHERE PORTAL DEVELOPER) Anatomical Region Laterality Modality Breast Left Mammography 09/22/2024 2:54 PM [employer] WEB[employer]HERE PORTAL DEVELOPER Addenda Addendum by Cierra Torres MD on 09/22/2024 2:54 PM [employer] WEB[employer]HERE PORTAL DEVELOPER PATHOLOGY RESULTS: Diagnosis: Breast, left, upper outer mid depth, core biopsy - Calcifications associated with columnar cell change and benign lobules - Fibrocystic changes - No evidence of atypia or malignancy Please refer to pathology report for details. Pathology is benign and concordant. Normal interval screening mammography is recommended. Results and recommendations will be discussed with the patient by Breast [facility] or Breast Surgical Oncology staff. Electronically signed by: Cierra Torres M.D. Impressions 09/18/2024 4:55 PM [employer] WEB[employer]HERE PORTAL DEVELOPER Successful vacuum-assisted core needle biopsy of the LEFT breast. Pathology is pending. ASSESSMENT: Post Procedure Mammograms for Marker Placement Electronically signed by: Cierra Torres M.D. Narrative 09/18/2024 4:55 PM [employer] WEBSPHERE PORTAL DEVELOPER EXAMINATION: LEFT STEREOTACTIC BREAST VACUUM-ASSISTED CORE BIOPSY UTILIZING TOMOSYNTHESIS AND STEREOTACTIC GUIDANCE, PLACEMENT OF A BIOPSY SITE TISSUE MARKER CLIP, AND LEFT FULL FIELD DIGITAL MAMMOGRAM WITH DIGITAL BREAST TOMOSYNTHESIS HISTORY: Abnormal mammogram. Suspicious left breast microcalcifications. Image guided core needle biopsy is requested to evaluate for malignancy. COMPARISON: 08/26/2024 BREAST PARENCHYMAL COMPOSITION: The breasts are extremely dense, which lowers the sensitivity of mammography. PROCEDURE AND FINDINGS: The risks and potential benefits of the procedures were discussed with the patient and written informed consent was obtained. After a time-out procedure, the patient was placed in the upright seated position on the biopsy unit. The area of interest was localized and targeted utilizing digital imaging with tomosynthesis and stereotaxis. After sterile preparation of the skin, 1% lidocaine and 1% lidocaine with epinephrine were utilized for local anesthesia. A small skin incision was made with a #11 scalpel blade and a 9 gauge Brevera vacuum-assisted biopsy needle was advanced to the area of interest from a superior approach utilizing stereotactic guidance. A total of 4 tissue cores were then obtained; these were submitted to surgical pathology in formalin for histologic analysis. The specimen radiograph demonstrates that the calcifications of interest are included within the tissue cores. A SecurMark Mini Cork tissue marker clip was placed at the biopsy site. The needle was removed, hemostasis was achieved, and Dermabond was applied. There was no evidence of significant immediate complication. The patient was given verbal as well as written post procedural instructions prior to release from the department. A two-view LEFT digital mammogram, including digital breast tomosynthesis, post procedure demonstrates that the tissue marker clip is in the expected position. The attending radiologist, Dr. Cierra Torres M.D., was present throughout the entire procedure. Procedure Note Cierra Torres MD - 09/18/2024 EXAMINATION: LEFT STEREOTACTIC BREAST VACUUM-ASSISTED CORE BIOPSY UTILIZING TOMOSYNTHESIS AND STEREOTACTIC GUIDANCE, PLACEMENT OF A BIOPSY SITE TISSUE MARKER CLIP, AND LEFT FULL FIELD DIGITAL MAMMOGRAM WITH DIGITAL BREAST TOMOSYNTHESIS HISTORY: Abnormal mammogram. Suspicious left breast microcalcifications. Image guided core needle biopsy is requested to evaluate for malignancy. COMPARISON: 08/26/2024 BREAST PARENCHYMAL COMPOSITION: The breasts are extremely dense, which lowers the sensitivity of mammography. PROCEDURE AND FINDINGS: The risks and potential benefits of the procedures were discussed with the patient and written informed consent was obtained. After a time-out procedure, the patient was placed in the upright seated position on the biopsy unit. The area of interest was localized and targeted utilizing digital imaging with tomosynthesis and stereotaxis. After sterile preparation of the skin, 1% lidocaine and 1% lidocaine with epinephrine were utilized for local anesthesia. A small skin incision was made with a #11 scalpel blade and a 9 gauge Brevera vacuum-assisted biopsy needle was advanced to the area of interest from a superior approach utilizing stereotactic guidance. A total of 4 tissue cores were then obtained; these were submitted to surgical pathology in formalin for histologic analysis. The specimen radiograph demonstrates that the calcifications of interest are included within the tissue cores. A SecurMark Mini Cork tissue marker clip was placed at the biopsy site. The needle was removed, hemostasis was achieved, and Dermabond was applied. There was no evidence of significant immediate complication. The patient was given verbal as well as written post procedural instructions prior to release from the department. A two-view LEFT digital mammogram, including digital breast tomosynthesis, post procedure demonstrates that the tissue marker clip is in the expected position. The attending radiologist, Dr. Cierra Torres M.D., was present throughout the entire procedure. IMPRESSION: Successful vacuum-assisted core needle biopsy of the LEFT breast. Pathology is pending. ASSESSMENT: Post Procedure Mammograms for Marker Placement Electronically signed by: Cierra Torres M.D. Viry Kennedy NP IM MAMMO PROCEDURES Edite d Result - Final * Imaging SI Joint Injection Bilateral (39239) (09/09/2024 9:25 AM [employer] WEBSPHERE PORTAL DEVELOPER) Narrative [facility] - 09/09/2024 9:25 AM [employer] WEBSPHERE PORTAL DEVELOPER The images from this study are not interpreted by Radiology. Please refer to the physician's procedure / OR operative note. Quentin Mai MD Wayne CAMPOVERDE Final Result [facility] * Breast Imaging DX Outside Consult (08/26/2024 6:06 PM [employer] WEBSPHERE PORTAL DEVELOPER) Anatomical Region Laterality Modality Breast N/A Mammography 08/27/2024 9:34 AM [employer]HERE PORTAL DEVELOPER Impressions 08/27/2024 2:12 PM [employer] WEB[employer]HERE PORTAL DEVELOPER 0.9 cm grouped calcifications in the left [...] images may or may not represent the [place] source data set and thus may contain changes which may lower the sensitivity of the second opinion interpretation. Dictated by: Boby Stout D.O. The radiology attending physician has personally reviewed this study, and had reviewed and/or edited this written report and agrees with it. Electronically signed by: Flakita Fernandez M.D. Narrative 08/27/2024 2:12 PM [employer] WEB[employer]HERE PORTAL DEVELOPER EXAMINATION: REVIEW AND INTERPRETATION OF OUTSIDE IMAGING FACILITY [place]FORM[place] EXAM[place] REVIEWED: 1. LEFT UNILATERAL DIAGNOSTIC MAMMOGRAM, [...] OF OUTSIDE IMAGING FACILITY PERFORMING OUTSIDE IMAGING: [facility] [place] EXAM(S) REVIEWED: 1. LEFT UNILATERAL DIAGNOSTIC MAMMOGRAM, [...] images may or may not represent the [place] source data set and thus may contain changes which may lower the sensitivity of the second opinion interpretation. Dictated by: Boby Stout D.O. The radiology attending physician has personally reviewed this study, and had reviewed and/or edited this written report and agrees with it. Electronically signed by: Flakita Fernandez M.D. Viry Kennedy NP IMG MAMMO PROCEDURES Final Result from Last 3 Months Insurance [employer] OPEN ACCESS CIGNA CIGNA OPEN ACCESS Advance Directives For more information, please contact: [phone] * Full Code (Latest Code Status on File) Date Activated Date Inactivated Comments 08/09/2022 11:03 PM 08/12/2022 9:06 PM Care Teams Swatcher Relationship Specialty Start Date End Date Peyman Ortega MD [address] [place], [place] [id number] PCP - General Family Practice 05/13/24 Reanna Polanco, RN Registered Nurse 07/07/19 Sera Morley MD [address] [place], [place] [id number] Referring Physician Gynecology 08/08/24
--- OUTSIDE RECORDS SUMMARY | 2024-11-08 02:53 | XMS_ITS | Clinical Summary ---
Author Organization [facility] Address [address] [place] [address] Care Team Providers Care [employer]er Name Role Phone Reanna Polanco RN Unavailable Unavailab Peyman Carvajal MD Primary Care Provider Sera Morley MD Unavailable [phone] Allergies Active Allergy Reactions Criticality Noted Date [...] 3 07/01/20 24 Active back brace [facility]- back brace for scoliosis 1 each 07/01/20 [...] (10/18/2023): Added automatically from request for surgery [id number] Added automatically from request for surgery [id number] Rotoscoliosis 11/30/2020 Sacroiliac joint dysfunction 11/30/2020 Muscle [...] - 10/09/2024 11:59 PM CDT Hospital Encounter [facility] [address] [place] [address] Chronic use of nonprescription opiate drugs (HCC) Discharge Disposition: Discharge to home or self care 10/09/2024 7:58 AM CDT - 10/09/2024 11:59 PM CDT Hospital [facility] [address] [place] [address] [facility] [address] [place] [address] Nancy Fernandez MD Sacroiliac joint dysfunction (Primary Dx); Chronic use of opiate drug for therapeutic purpose; Rotoscoliosis; Pain of lumbar facet joint Discharge Disposition: Discharge to home or self care 10/09/2024 Telephone [facility] [address] [place] [address] Nancy Fernandez MD Form for back brace faxed to [facility] 10/09/2024 Orders Only [facility] [address] [place] [address] Nancy Fernandez MD Chronic use of nonprescription opiate drugs (HCC) (Primary Dx) 10/01/2024 11:15 AM KILN STOKER Therapy [facility] [address] [place] [address] Florinda Mcneal PTA Cervicalgia (Primary Dx) 09/23/2024 Results [facility]-Up [facility] [address] [place] [address] [address] [place] [address] Viry Kennedy NP 09/23/2024 Telephone [facility] [address] [place] [address] 8 [place] [address] Viry Kennedy NP 09/18/2024 2:11 PM KILN STOKER - 09/18/2024 11:59 PM KILN STOKER Hospital Encounter [facility] [place] [facility] Breast Imaging [address] [place] [address] Floor 8 [place] [address] Abnormal mammogram Discharge Disposition: Discharge to home or self care 09/18/2024 1:30 PM KILN STOKER - 09/18/2024 11:59 PM KILN STOKER Hospital Encounter [facility] Breast [facility] [address] [facility] Floor 8 [place] [address] Abnormal mammogram Discharge Disposition: Discharge to home or self care 09/17/2024 9:15 AM KILN STOKER [facility] [address] [facility] [address] [place] [address] Viry Kennedy NP Abnormal finding on breast imaging (Primary Dx); Microcalcification of left breast on mammogram 09/09/2024 8:23 AM KILN STOKER - 09/09/2024 11:59 PM KILN STOKER Hospital Encounter [facility] [address] [place] [address] [facility] [address] [place] [address] Nancy Fernandez MD Bilateral low back pain without sciatica, unspecified chronicity (Primary Dx); Sacroiliac joint dysfunction; Chronic use of opiate drug for therapeutic purpose Discharge Disposition: Discharge to home or self care 09/08/2024 2:00 PM KILN STOKER Therapy [facility] [address] [address] Lyle Watson DPT Cervicalgia (Primary Dx) 09/05/2024 Telephone [facility] [address] [place] [address] [facility] [address] [place] [address] Nancy Fernandez MD [facility] Preprocedure 09/03/2024 Telephone [facility] Breast [facility] [address] [place] [address] Gail Johnson RN 08/28/2024 Telephone [facility] Breast [facility] [address] [place] [address] Gail Johnson RN 08/26/2024 6:06 PM KILN STOKER - 08/26/2024 11:59 PM KILN STOKER Hospital Encounter [facility] [address] [place] [address] Discharge Disposition: Discharge to home or self care 08/26/2024 1:00 PM KILN STOKER Therapy [facility] [address] [place] [address] Florinda Mcneal PTA Cervicalgia (Primary Dx) 08/22/2024 Orders Only [facility] [address] [facility] [address] [place] [address] Modesta Mary RN 08/15/2024 Orders Only [facility] [address] [facility] Floor 8 [place] [address] Viry Kennedy NP 08/13/2024 1:00 PM KILN STOKER Therapy [facility] [address] [place] [id number] Lyle Watson DPT Cervicalgia (Primary Dx) 08/13/2024 Orders Only [facility] Floor [address] [place] [address] Viry Kennedy NP Abnormal mammogram (Primary Dx) 08/11/2024 12:15 PM KILN STOKER - 08/11/2024 11:59 PM KILN STOKER Hospital Encounter [facility] [address] [facility] [address] [place] [address] Nancy Fernandez MD Sacroiliac joint dysfunction (Primary Dx); Chronic use of opiate drug for therapeutic purpose; Rotoscoliosis; Fibromyalgia Discharge Disposition: Discharge to home or self care from Last 3 Months Immunizations Immunization Administration Dates Next Due Influenza, Quadrivalent, Spl it, Intramuscular 05/05/2019 Influenza, Quadrivalent, Spl it, Preservative Free, Intramuscular 05/02/2021,05/04/2020,04/18/2018 Influenza, Trivalent, IM (MDV) 06/22/2014 Influenza, Unspecified 04/28/2022 Tdap 04/18/2018 Surgical History Surgery Date Site/Laterality Comments UT UNLISTED LAPAROSCOPY PX INTESTINE XCP RECTUM Intestinal Laparoscopy - (Added by TW Conv) HYSTEROSCOPY W/ ENDOMETRIAL ABLATION CATARACT EXTRACTION right eye only SPINAL FUSION 08/09/2022 C3-6 ACDF w/ Dr. Olivier Marion BREAST BIOPSY 09/18/2024 Left Medical History Medical History Date Comments Personal history of other di seases of the musculoskeletal system and connective tissue History of osteoporosis - (A dded by TW Conv) Fibromyalgia Chronic pain Low back pain Osteoporosis Depression Low back pain Chronic pain Back pain GERD (gastroesophageal reflux disease) Fibromyalgia, primary Neck pain Tachycardia Anxiety Arthritis Migraines Urinary tract infection Lichen sclerosus Sclerosis of the skin lichen Family History Medical History Relation Name Comments Kidney disease Father Reid Feldman Family h istory of kidney disease - (Added by TW Conv) Stroke Father Reid Feldman Family his tory of cerebrovascular accident - (Added by TW Conv) Heart disease Maternal Grandfather Peter Salcido Breast cancer Maternal Grandmother Arthritis Mother Daniella Grotefendt COPD Mother Daniella Grotefendt Depression Mother Daniella Grotefendt Heart failure Mother Daniella Feldman Family h istory of congestive heart failure - (Added by TW Conv) Hypertension Mother Daniella Feldman Arthritis Mother's Brother Eddie Salcido Depression Mother's Brother Eddie Salcido Arthritis Mother's Sister Patricia Salcido Bone cancer Mother's Sister Patricia Salcido Colon cancer Paternal Grandmother Celiac disease Son 1 Family histor y of celiac disease - (Added by TW Conv) Allergy (severe) Son 2 Roberto Carlos Camarena Anesthesia problems Neg Hx Relation Name Status Comments Father Reid Feldman Alive Maternal Grandfather Peter Salcido Maternal Grandmother Mother Daniella Feldman Mother's Brother Eddie Salcido Mother's Sister Patricia Salcido Paternal Grandmother Son 1 Son 2 Roberto Carlos Camarena Social History Tobacco Use Types Packs/Day Years [...] on file Legal Sex Female 2:03 AM KILN STOKER Gender Identity Female 08/26/2020 6:26 AM KILN STOKER Sexual Orientation Straight 08/26/2020 6: 26 AM KILN STOKER Obstetrics History Last Filed Vital Signs Vital [...] 10/09/2024 8:03 AM CDT Plan of Treatment Health Maintenance Due Date Last Done Comments Cervical Cancer Screening 1960 Colon Cancer Screening-Colonoscopy 1960 Depression Screening 1960 Hepatitis C Screening 1960 Hepatitis B Screening 1978 Regular Well Visit/Exam 18-64 1978 Zoster Vaccine (1 of 2) 2010 Covid-19 Vaccine ( season) 2024 11/06/2021, 05/05/2021, 10/22/2020, Additional history exists Influenza Vaccine (Season Ended) 2025 04/28/2022, 05/02/2021, 05/04/2020, Additional history exists Breast Cancer [...] as needed Medical Devices Implanted Type Area Certified Professional Midwife Device Identifier Shelf Expiration Date Model / Serial / Lot Ray Right: Eye Musculoskeletal Transplant [id number] Frozen Spine 7d Lordotic Trapezoid Spacer Allograft [id number] - [id number] - [id number] Implanted:Qty: 1 on 08/09/2022 by Olivier Marion MD at [facility] N/A: Spine Cervical Musculoskeletal Transplant [id number] 05/18/2026 [id number] / [id number] / Musculoskeletal Transplant [id number] Frozen Spine 7d Lordotic Trapezoid Spacer Allograft [id number] - [id number] - [id number] Implanted:Qty: 1 on 08/09/2022 by Olivier Marion MD at [facility] N/A: Spine Cervical Musculoskeletal Transplant [id number] 04/24/2026 [id number] / [id number] / Musculoskeletal Transplant [id number] Frozen Spine 7d Lordotic Trapezoid Spacer Allograft 323151 - [id number] - [id number] Implanted:Qty: 1 on 08/09/2022 by Olivier Marion MD at [facility] N/A: Spine Cervical Musculoskeletal Transplant [id number] 12/12/2026 [id number] / [id number] / [employer] 4mm 16mm Fix Screw Bone [id number] - [id number] Implanted:Qty: 8 on 08/09/2022 by Olivier Marion MD at [facility] N/A: Spine Cervical [employer] [id number] / / [employer] C-Pancho Maxan 51mm Level 3 Fix Spine Cervical Anterior Plate Bone [id number] - [id number] Implanted:Qty: 1 on 08/09/2022 by Olivier Marion MD at [facility] N/A: Spine Cervical [employer] [id number] 1 / / [employer] Eviva 13cm Identifier Biopsy Site [id number] - [id number] Implanted:Qty: 1 on 09/18/2024 at [facility] Left: Breast [employer] [id number] 03/03/2025 [facility] CAR[facility] / / [id number] Procedures Procedure Name Priority Date/Time Associated Diagnosis Comments TARGET OPIOID SCREEN BY DRIVER LIFTER OF SANITATION TRUCK Routine 10/09/2024 8:18 AM CDT Chronic use of nonprescription opiate drugs (HCC) DRUGS OF ABUSE SCREEN, URINE WITH REFLEX CONFIRMATION Routine 10/09/2024 8:18 AM CDT Chronic use of nonprescription opiate drugs (HCC) PAIN MANAGEMENT PROFILE Routine 10/09/2024 8:18 AM CDT Chronic use of nonprescription opiate drugs (HCC) STEREOTACTIC BREAST BIOPSY LEFT Schedule Routine, Read Routine (OP Routine) 09/18/2024 3:39 PM KILN STOKER Abnormal mammogram SURGICAL PATHOLOGY Routine 09/18/2024 3: 37 PM KILN STOKER Abnormal mammogram DIAGNOSTIC MAMMOGRAM LEFT W NIKOLAS Schedule Routine, Read Routine (OP Routine) 09/18/2024 2:30 PM KILN STOKER Abnormal mammogram PAIN MGMT IMAGING SI JOINT BILATERAL ARTHROGRPHY Schedule Routine, Read Routine (OP Routine) 09/09/2024 9:25 AM KILN STOKER Sacroiliac joint dysfunction BREAST IMAGING MG DIAGNOSTIC OUTSIDE CONSULT Routine 08/26/2024 6:06 PM KILN STOKER from Last 3 Months Results * Targeted Opioid Screen, Ur (10/09/2024 8:18 AM CDT) [facility] Pain mgt 6-Acetylmorphine, Ur Not Detected CutOff 10 ng/mL Pain mgt Buprenorphine, Ur Not Detected CutOff 5 ng/mL [facility] Pain mgt Buprenorphine metabolite (Norbuprenorphine), Ur Not Detected CutOff 5 ng/mL [facility] Pain mgt Codeine, Ur Not Detected CutOff 25 ng/mL [facility] Pain mgt Hydrocodone, Ur Detected CutOff 25 ng/mL [facility] Pain mgt Hydromorphone, Ur Not Detected CutOff 25 ng/mL [facility] Pain mgt Methadone, Ur Not Detected CutOff 25 ng/mL [facility] Pain mgt Methadone Metabolite (EDDP), Ur Not Detected CutOff 25 ng/mL [facility] Pain mgt Morphine, Ur Not Detected CutOff 25 ng/mL [facility] Pain mgt Oxycodone, Ur Not Detected CutOff 25 ng/mL [facility] Pain mgt Oxymorphone, Ur Not Detected CutOff 25 ng/mL [facility] Pain mgt Tapentadol, Ur Not Detected CutOff 25 ng/mL [facility] Pain mgt Tramadol, Ur Not Detected CutOff 25 ng/mL [facility] Pain mgt Tramadol metabolite (O-desmethyltramado l), Ur Not Detected CutOff 25 ng/mL [facility] Comment: Interpretive Data This test only [...] developed and its performance characteristics determined by [facility]. It has not been cleared or approved by the U.S. Food and Drug Administration. Current interpretive data was last revised 19. Pain mgt Naloxone, ur Not Detected cutoff 20 ng/ml [facility] Urine 10/09/2024 8:18 AM CDT 10/09/2024 4:17 PM CDT Nancy Fernandez MD LAB URINE ORDERABLES Final Result [facility] Department [place] [address] * (ABNORMAL) Drugs of Abuse Screen, Urine with Reflex Confirmation (10/09/2024 8:18 AM CDT) [facility] Amphetamine, ur Not Detected CutOff 500ng/mL Comment: Interpretive Data - Amphetamines: Samples containing greater than 500 ng/mL d-methamphetamine or other cross-reacting amphetamine compounds are reported as positive. Amphetamine immunoassays are subject to significant false positive rates due to cross-reactivity of non-amphetamine drugs. Confirmatory testing required for definitive results. Current Interpretive Data was last reviewed 2023. Barbiturates, ur Not Detected CutOff 200ng/mL [facility] Comment: Interpretive Data - Barbiturates: Samples containing greater than 200 ng/mL secobarbital or other cross-reacting barbiturate compounds are reported as positive. False positive and false negative results are possible. Confirmatory testing required for definitive results. Current Interpretive Data was last reviewed 2023. Benzodiazepines, ur Screen Positive, presumptive (A) CutOff 100ng/mL [facility] Comment: Interpretive Data - Benzodiazepines: Samples containing greater than 100 ng/mL nordiazepam or other cross-reacting compounds are reported as positive. False positive and false negative results are possible. Confirmatory testing required for definitive results. Current Interpretive Data was last reviewed 2023. Cannabinoids, ur Screen Positive, presumptive (A) CutOff 50 ng/mL [facility] Comment: Interpretive Data - Cannabinoids: Samples containing greater than 50 ng/mL delta-9 THC -COOH or other cross- reacting compounds are reported as positive. False positive and false negative results are possible. Confirmatory testing required for definitive results. Current Interpretive Data was last reviewed 2023. Cocaine, ur Not Detected CutOff 150ng/mL [facility] Comment: Interpretive Data - Cocaine: Samples containing greater than 150 ng/mL benzoylecgonine or other cross- reacting compounds are reported as positive. False positive and false negative results are possible. Confirmatory testing required for definitive results. Current Interpretive Data was last reviewed 2023. Fentanyl, Ur Not Detected CutOff 5 ng/mL [facility] Comment: Interpretive Data - Fentanyl: Samples containing greater than 5 ng/mL norfentanyl, fentanyl, or other cross-reacting fentanyl compounds are reported as positive. False positive and false negative results are possible. Confirmatory testing required for definitive results. Current Interpretive Data was last reviewed 2023. Methadone, ur Not Detected CutOff 300ng/mL [facility] Comment: Interpretive Data - Methadone: Samples containing greater than 300 ng/mL d,l-methadone or other cross-reacting compounds are reported as positive. False positive and false negative results are possible. Confirmatory testing required for definitive results. Current Interpretive Data was last reviewed 2023. Opiates, ur Screen Positive, presumptive (A) CutOff 300ng/mL [facility] Comment: Interpretive Data - Opiates: Samples containing greater than 300 ng/mL morphine or other cross-reacting compounds are reported as positive. False positive and false negative results are possible. Confirmatory testing required for definitive results. Current Interpretive Data was last reviewed 2023. Oxycodone, ur Not Detected CutOff 100ng/mL [facility] Comment: Interpretive Data - Oxycodone: Samples containing greater than 100 ng/mL oxycodone or other cross-reacting compounds are reported as positive. False positive and false negative results are possible. Confirmatory testing required for definitive results. Current Interpretive Data was last reviewed 2023. Phencyclidine, ur Not Detected CutOff 25 ng/mL [facility] Comment: Interpretive Data - Phencyclidine: Samples containing greater than 25 ng/mL phencyclidine or other cross-reacting compounds are reported as positive. False positive and false negative results are possible. Confirmatory testing required for definitive results. Current Interpretive Data was last reviewed 2023. Urine Creatinine 282 mg/dL [facility] Comment: Interpretive Data Urine Creatinine: < 10 mg/dL is extremely dilute = or > 10 but < 20 mg/dL is dilute = or > 20 mg/dL is normal Current Interpretive Data was last revised on 2017. Urine 10/09/2024 8:18 AM CDT 10/09/2024 4:17 PM CDT Narrative [facility] P[facility] - 10/09/2024 4:42 PM CDT Drug of Abuse screening is performed by immunoassay for medical purposes only. This is not to be used for Pain Management purposes. If Detected, confirmation testing will be performed for Amphetamines, Cocaine, Fentanyl, Methadone, Opiates, Oxycodone or Phencyclidine. Nancy Fernandez MD LAB URINE ORDERABLES Final Result [facility] Department [place] [address] * Stereotactic Breast Biopsy Left (09/18/2024 3:39 PM KILN STOKER) Anatomical Region Laterality Modality Breast Left Mammography 09/18/2024 4:55 PM KILN STOKER Addenda Addendum by Cierra Torres MD on 09/22/2024 2:54 PM KILN STOKER PATHOLOGY RESULTS: Diagnosis: Breast, left, upper outer mid depth, core biopsy - Calcifications associated with columnar cell change and benign lobules - Fibrocystic changes - No evidence of atypia or malignancy Please refer to pathology report for details. Pathology is benign and concordant. Normal interval screening mammography is recommended. Results and recommendations will be discussed with the patient by Breast [facility] or Breast Surgical Oncology staff. Electronically signed by: Cierra Torres M.D. Impressions 09/18/2024 4:55 PM KILN STOKER Successful vacuum-assisted core needle biopsy of the LEFT breast. Pathology is pending. ASSESSMENT: Post Procedure Mammograms for Marker Placement Electronically signed by: Cierra Torres M.D. Narrative 09/18/2024 4:55 PM KILN STOKER EXAMINATION: LEFT STEREOTACTIC BREAST VACUUM-ASSISTED CORE BIOPSY [...] are included within the tissue cores. A iikourMark Mini Cork tissue marker clip was placed [...] by: Cierra Torres M.D. Viry Kennedy NP IMG MAMMO PROCEDURES Edite d Result - Final * Surgical pathology (09/18/2024 3:37 PM KILN STOKER) Tissue specimen (specimen) (Breast biopsy, needle core) 09/18/2024 3:37 PM KILN STOKER Comment:LEFT breast - uprigh t stereo biopsy - Upper Outer Mid Depth - Calcs - CAT 4A Narrative PATHOLOGY TEMP LLB FOR ASP - 09/22/2024 11:21 AM KILN STOKER EPIC results best viewed via link to PDF [facility] Surgical Pathology [facility] [place] [address] Note to Patients: This report may contain [...] SURGICAL PATHOLOGY REPORT FINAL Patient Name: ANNETTE CAMARENAOrquidea Gender: F : 1960 (Age: 64) Address: [address] [place] [address] Hospital #: [id number] Taken:09/18/2024 Received:09/18/2024 Reported: 09/22/2024 Patient Type: [facility] Ancillary Service: UNKNOWN Location: Physician(s): CHARLEEN Birch MD Diagnosis: Breast, left, upper outer mid [...] Report Electronically Reviewed and Signed Out By Camym De León MD 09/22/2024 11:21:33 Peggy Eagle [...] Surgical Pathology and Flow Cytometry Departments at [facility] as part of an ongoing coding quality coordinator program and in compliance with federally mandated [...] Surgical Pathology and Flow Cytometry Departments of [facility]. It has not been cleared or approved by the U. S. Food and Drug Administration. IMAGES AND SCANNED DOCUMENTS, IF INCLUDED, ONLY VIEWABLE IN PDF VERSION OF REPORT Viry Kennedy NP LAB PATHOLOGY ORDERABLES F inal Result PATHOLOGY TEMP LLB FOR ASP * Diagnostic Mammogram Left W Nikolas (09/18/2024 2:30 PM KILN STOKER) Anatomical Region Laterality Modality Breast Left Mammography 09/22/2024 2:54 PM KILN STOKER Addenda Addendum by Cierra Torres MD on 09/22/2024 2:54 PM KILN STOKER PATHOLOGY RESULTS: Diagnosis: Breast, left, upper outer mid depth, core biopsy - Calcifications associated with columnar cell change and benign lobules - Fibrocystic changes - No evidence of atypia or malignancy Please refer to pathology report for details. Pathology is benign and concordant. Normal interval screening mammography is recommended. Results and recommendations will be discussed with the patient by [facility] or Breast Surgical Oncology staff. Electronically signed by: Cierra Torres M.D. Impressions 09/18/2024 4:55 PM KILN STOKER Successful vacuum-assisted core needle biopsy of the LEFT breast. Pathology is pending. ASSESSMENT: Post Procedure Mammograms for Marker Placement Electronically signed by: Cierra Torres M.D. Narrative 09/18/2024 4:55 PM KILN STOKER EXAMINATION: LEFT STEREOTACTIC BREAST VACUUM-ASSISTED CORE BIOPSY [...] are included within the tissue cores. A iikourSwivel Mini Cork tissue marker clip was placed [...] by: Cierra Torres M.D. Viry Kennedy NP [facility] MAMMO PROCEDURES Edite d Result - Final * Imaging SI Joint Injection Bilateral ([id number]) (09/09/2024 9:25 AM KILN STOKER) Narrative [facility] - 09/09/2024 9:25 AM KILN STOKER The images from this study are not interpreted by Radiology. Please refer to the physician's procedure / OR operative note. Quentin CAMPOVERDE Final Result [facility] * Breast Imaging DX Outside Consult (08/26/2024 6:06 PM KILN STOKER) Anatomical Region Laterality Modality Breast N/A Mammography 08/27/2024 9:34 AM KILN STOKER Impressions 08/27/2024 2:12 PM KILN STOKER 0.9 cm grouped calcifications in the left [...] images may or may not represent the [place] source data set and thus may contain changes which may lower the sensitivity of the second opinion interpretation. Dictated by: Boby Stout D.O. The radiology attending physician has personally reviewed this study, and had reviewed and/or edited this written report and agrees with it. Electronically signed by: Flakita Fernandez M.D. Narrative 08/27/2024 2:12 PM KILN STOKER EXAMINATION: REVIEW AND INTERPRETATION OF OUTSIDE IMAGING FACILITY PERFORMING OUTSIDE IMAGING: [facility] EXAM(S) REVIEWED: 1. LEFT UNILATERAL DIAGNOSTIC [...] OF OUTSIDE IMAGING FACILITY PERFORMING OUTSIDE IMAGING: [facility] EXAM(S) REVIEWED: 1. LEFT UNILATERAL DIAGNOSTIC [...] images may or may not represent the [place] source data set and thus may contain changes which may lower the sensitivity of the second opinion interpretation. Dictated by: Boby Stout D.O. The radiology attending physician has personally reviewed this study, and had reviewed and/or edited this written report and agrees with it. Electronically signed by: Flakita Fernandez M.D. Viry Kennedy TRANSFER ENGINEER IMG MAMMO PROCEDURES Final Result from Last 3 Months Insurance [employer] OPEN ACCESS [employer]ESS Advance Directives For more information, please contact: [phone] * Full Code (Latest Code Status on File) Date Activated Date Inactivated Comments 08/09/2022 11:03 PM 08/12/2022 9:06 PM Care Teams Golf Club Assembler Relationship Specialty Start Date End Date Peyman Ortega MD [address] [facility] [address] [place], [place] [id number] PCP - General Family Practice 05/13/24 Reanna Polanco, RN Registered Nurse 07/07/19 Sera Morley MD [address] [place] [address] Referring Physician Gynecology 08/08/24
--- OUTSIDE RECORDS SUMMARY | 2024-11-08 02:53 | XMS_ITS | Encounter Summary ---
Author Organization [facility] Healthcare Address [address] [place] [address] Care Team Providers Care Auto Top Mechanic Name Role Phone Reanna Polanco RN Unavailable Unavailab Rohan Salvador MD Primary Care Provider Peyman Ortega MD Primary Care Provider Sera Morley MD Unavailable [phone] Encounter Details Date Type Department Care Team (Late st Contact Info) Description 11/04/2020 Telephone [facility] Radiology [address] [place] [address] Nancy Fernandez MD [id number] [place], [place] [id number] Social History Tobacco Use Types Packs/Day Years [...] on file 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 Author CCM Chronic Pain Care Plan Chronic Care Management No change(10/09 8:13 AM CDT) No Bessy Mancuso RN Note: Problem: Chronic Pain Goals: 1. Minimize further functional decline 2. Maximize quality of life 3. Control pain Strategies: - Activity/exercise program recommendation - Conservative stepwise pain medicine strategy with multi-disciplinary approach - Recommend healthy lifestyle strategies and compensatory methods as needed documented as of this encounter Visit Diagnoses Not on filedocumented in this encounter Care Teams Auto Top Mechanic Relationship Specialty Start Date End Date Rohan Rothman MD [address] [place] [address] PCP - General 07/20/20 05/12/24 Peyman Ortega MD [address] [facility] [address] [place], [place] [id number] PCP - General Family Practice 05/13/24 Reanna Polanco RN Registered Nurse 07/07/19 Sera Morley MD [address] [facility] [address] [place] [address] Referring Physician Gynecology 08/08/24 documented as of this encounter
--- OUTSIDE RECORDS SUMMARY | 2024-11-08 02:53 | XMS_ITS | Encounter Summary ---
Author Organization [facility] Address [address] [place] [address] Phone Care Team Providers Care Body Presser Name Role Phone Reanna Polanco RN Unavailable Unavailab Peyman Carvajal MD Primary Care Provider Sera Morley MD Unavailable [phone] Encounter Details Date Type Department Care Team (Late st Contact Info) Description 09/23/2024 Results Follow-Up [facility] [address] [facility] Floor [address] [place] [address] Viry Kennedy NP [address] [place] [phone] [place] [address] Social History Tobacco Use Types Packs/Day Years [...] on file 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
--- NOTE | 2024-11-08 03:03 | ECG_ITS ---
Test Date: 2024-11-08 03:04:48 Measurements Intervals [place] Rate: 89 P: 67 VT: 184 QRS: 18 QRSD: 79 T: 63 QT: 350 QTc: 426 Interpretive Statements SINUS RHYTHM WITH OCCASIONAL SUPRAVENTRICULAR PREMATURE COMPLEXES POSSIBLE LEFT ATRIAL ENLARGEMENT POSSIBLE RIGHT VENTRICULAR CONDUCTION DELAY BASELINE ARTIFACT- I, III, AVL, AVF, V1-V3 BORDERLINE ECG No previous ECG available for comparison Electronically Signed On 11-08-2024 06:46:44 CDT by Sanya Hall D.O.
[2024-11-08 03:07] LABS: Glucose Point of Care 116 mg/dl (65-105)
[2024-11-08 03:11] LABS: Basophils Percent Auto 0.7 % (0.2-1.2); Eosinophils Absolute Auto 0.1 K/mm3 (0-0.3); Eosinophils Percent Auto 1.2 % (0-4.4); Hematocrit 44.5 % (37.0-47.0); Hemoglobin 14.7 g/dL (12.0-15.0); Lymphocytes Absolute Auto 1.49 K/mm3 (0.9-3.2); Lymphocytes Percent Auto 25.2 % (18.3-44.2); Mean Corpuscular Volume 96.9 fl (80-100); Mean Platelet Volume 11.2 fl (7.4-10.4); Monocytes Absolute Auto 0.5 K/mm3 (0.1-0.6); Monocytes Percent Auto 9.1 % (2.6-8.5); Neutrophils Absolute Auto 3.8 K/mm3 (1.3-6.7); Neutrophils Percent Auto 63.8 % (45.5-73.1); Platelet Count Result 262 k/mm3 (150-375); Red Blood Count 4.59 M/mm3 (4.2-5.4); Red Cell Distribution Width 12.5 % (11.5-14.5); White Blood Count 5.9 K/mm3 (4.5-10.0)
--- OUTSIDE RECORDS SUMMARY | 2024-11-08 03:16 | XMS_ITS | Encounter Summary ---
Author Organization [facility] Healthcare Address [address] [facility] [place] [address] Care Team Providers Care Peer Health Promoter Name Role Phone Felicitas Samule MD Primary Care Provider + Reanna Polanco RN Unavailable Unavailab Rohan Salvador MD Primary Care Provider Peyman Ortega MD Primary Care Provider Sera Morley MD Unavailable [phone] Reason for Visit * Reason Onset Date Comments Prior Auth 06/11/2019 Celecoxib 200mg Encounter Details Date Type Department Care Team (Late st Contact Info) Description 06/11/2019 Telephone [facility] [place] [facility] [address] [facility] [address] [place] [address] Nancy Fernandez MD [address] [facility] [phone] [place] [address] Prior Auth (Celecoxib 200mg) Social History Tobacco Use Types Packs/Day Years Used Date Smoking Tobacco: Never Smokeless Tobacco: Never Alcohol Use Standard Drinks/Week Comments No 0 (1 standard drink = 0.6 oz pur e alcohol) Comments No Sex and Gender Information Value Date Recorded Sex Assigned at Not on file 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 Gender Identity Female 08/26/2020 6:26 AM FOOD SAFETY FIELD SPECIALIST Sexual Orientation Straight 08/26/2020 6: 26 AM FOOD SAFETY FIELD SPECIALIST documented as of this encounter Plan of [...] on filedocumented in this encounter Care Teams Peer Health Promoter Relationship Specialty Start Date End Date Felicitas Samuel MD PCP - General 10/13/16 07/19/20 Rohan Rothman MD [address] [place] [address] PCP - General 07/20/20 05/12/24 Peyman Ortega MD [address] [facility] [address] [place] [address] PCP - General Family Practice 05/13/24 Reanna Polanco RN Registered Nurse 07/07/19 Sera Morley MD [address] [place], [place] [phone] Referring Physician Gynecology 08/08/24 documented as of this encounter
--- OUTSIDE RECORDS SUMMARY | 2024-11-08 03:16 | XMS_ITS | Encounter Summary ---
Author Organization [facility] Healthcare Address [address] [facility] [place] [address] Care Team Providers Care Burner Machine Operator Name Role Phone Felicitas Samuel MD Primary Care Provider + Reanna Polanco RN Unavailable Unavailab Rohan Salvador MD Primary Care Provider Peyman Ortega MD Primary Care Provider Sera Morley MD Unavailable [phone] Encounter Details Date Type Department Care Team (Late st Contact Info) Description 01/15/2020 Telephone [facility] [place] [facility] [address] [facility] [address] [place] [address] Nancy Fernandez MD [address] [facility] [phone] [place] [address] Social History Tobacco Use Types Packs/Day Years Used Date Smoking Tobacco: Former Smokeless Tobacco: Never Alcohol Use Standard Drinks/Week Comments No 0 (1 standard drink = 0.6 oz pur e alcohol) Comments No Sex and Gender Information Value Date Recorded Sex Assigned at Not on file Legal 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 Female 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 Gender Identity Female 08/26/2020 6:26 AM UTILITY FORESTER Sexual Orientation Straight 08/26/2020 6: 26 AM UTILITY FORESTER documented as of this encounter Plan of [...] on filedocumented in this encounter Care Teams Burner Machine Operator Relationship Specialty Start Date End Date Felicitas Samuel MD PCP - General 10/13/16 07/19/20 Rohan Rothman MD [address] [place] [address] PCP - General 07/20/20 05/12/24 Peyman Ortega MD [address] [facility] [address] [place] [address] PCP - General Family Practice 05/13/24 Raenna Polanco RN Registered Nurse 07/07/19 Sera Morley MD [address] [facility] [address] [place] [address] Referring Physician Gynecology 08/08/24 documented as of this encounter
--- OUTSIDE RECORDS SUMMARY | 2024-11-08 03:16 | XMS_ITS | Referral Summary ---
Author Organization [facility] Address [address] [place] [address] Care Team Providers Care Paper Cup Machine Operator Name Role Phone Reanna Polanco RN Unavailable Unavailab Peyman Carvajal MD Primary Care Provider Sera Morley MD Unavailable [phone] Encounters Date Type Department Care Team Description 10/09/2024 8:18 AM CDT - 10/09/2024 11:59 PM CDT Hospital Encounter [address] [address] Chronic use of nonprescription opiate drugs (HCC) Discharge Disposition: Discharge to home or self care 10/09/2024 Telephone [facility] Pain Center at the [facility] Advanced Medicine [address] [place] [address] [facility] [address] [place] [address] Nancy Fernandez MD Form for back brace faxed to Housing Quality Standard Inspector 10/09/2024 Orders Only [facility] Pain [place] at the [facility] Advanced [address] [facility] [address] [place] [address] Nancy Fernandez MD Chronic use of nonprescription opiate drugs (HCC) (Primary Dx) 10/09/2024 7:58 AM CDT - 10/09/2024 11:59 PM CDT Hospital Encounter [facility] [address] [facility] [address] [place] [address] Nancy Fernandez MD Sacroiliac joint dysfunction (Primary Dx); Chronic use of opiate drug for therapeutic purpose; Rotoscoliosis; Pain of lumbar facet joint Discharge Disposition: Discharge to home or self care 10/01/2024 11:15 AM DEMAND GENERATOR MANAGER Therapy [facility] Physical Therapy [address] [place] [address] Florinda Mcneal PTA Cervicalgia (Primary Dx) 09/23/2024 Results Follow-Up [facility] Surgery [address] [place] [address] Floor 8 [place] [phone] Viry Kennedy NP 09/23/2024 Telephone [facility] Surgery [address] [place] [address] Floor 8 [place] [phone] Viry Kennedy NP 09/18/2024 2:11 PM DEMAND GENERATOR MANAGER - 09/18/2024 11:59 PM DEMAND GENERATOR MANAGER Hospital Encounter [facility] - Breast Imaging [address] [facility] Floor 8 [place] [address] Abnormal mammogram Discharge Disposition: Discharge to home or self care 09/18/2024 1:30 PM DEMAND GENERATOR MANAGER - 09/18/2024 11:59 PM DEMAND GENERATOR MANAGER Hospital Encounter [facility] - Breast Imaging [address] [place] [address] Floor 8 [place] [address] Abnormal mammogram Discharge Disposition: Discharge to home or self care 09/17/2024 9:15 AM DEMAND GENERATOR MANAGER Office Visit [facility] Surgery [address] [place] [address] Floor 8 [place] [phone] Viry Kennedy NP Abnormal finding on breast imaging (Primary Dx); Microcalcification of left breast on mammogram 09/09/2024 8:23 AM DEMAND GENERATOR MANAGER - 09/09/2024 11:59 PM DEMAND GENERATOR MANAGER Hospital Encounter [facility] [address] [facility] [address] [place] [address] Nancy Fernandez MD Bilateral low back pain without sciatica, unspecified chronicity (Primary Dx); Sacroiliac joint dysfunction; Chronic use of opiate drug for therapeutic purpose Discharge Disposition: Discharge to home or self care 09/08/2024 2:00 PM DEMAND GENERATOR MANAGER Therapy [facility] Physical Therapy [address] [facility] [address] [place] [address] Lyle Watson DPT Cervicalgia (Primary Dx) 09/05/2024 Telephone [facility] [address] [facility] [address] [place] [address] Nancy Fernandez MD [facility] Preprocedure 09/03/2024 Telephone [facility] Breast [facility] ([facility]) [address] [place] [address] Gail Johnson RN 08/28/2024 Telephone [facility] Advanced Medicine Breast [facility] ([facility]) [address] [place] [address] Gail Johnson RN 08/26/2024 6:06 PM DEMAND GENERATOR MANAGER - 08/26/2024 11:59 PM [facility] Radiology [facility] ([facility]) [address] [place] [address] Discharge Disposition: Discharge to home or self care 08/26/2024 1:00 PM DEMAND GENERATOR MANAGER Therapy [facility] Physical Therapy [facility] [address] [place] [address] Florinda Mcneal PTA Cervicalgia (Primary Dx) 08/22/2024 Orders Only [facility] [address] [facility] Advanced Medicine [address] [place] [address] Modesta Mary, RUBIO 08/15/2024 Orders Only [facility] Surgery [facility] Floor 8 [place] [address] Viry Kennedy NP 08/13/2024 Orders Only [facility] Surgery [facility] Floor 8 [place] [address] Viry Kennedy NP Abnormal mammogram (Primary Dx) 08/13/2024 1:00 PM DEMAND GENERATOR MANAGER Therapy [facility] Physical Therapy [address] [place] [address] Lyle Watson DPT Cervicalgia (Primary Dx) 08/11/2024 12:15 PM DEMAND GENERATOR MANAGER - 08/11/2024 11:59 PM DEMAND GENERATOR MANAGER Hospital Encounter [facility] at the [place] [facility] [address] [facility] [address] [place] [address] Nancy Fernandez MD Sacroiliac joint dysfunction (Primary [...] tablet 3 07/01/20 24 Active back brace [facility]- back brace for scoliosis 1 each 07/01/20 [...] (10/18/2023): Added automatically from request for surgery [id number] Added automatically from request for surgery [id number] Rotoscoliosis 11/30/2020 Sacroiliac joint dysfunction 11/30/2020 Muscle [...] on file Legal Sex Female 2:03 AM DEMAND GENERATOR MANAGER Gender Identity Female 08/26/2020 6:26 AM DEMAND GENERATOR MANAGER Sexual Orientation Straight 08/26/2020 6: 26 AM DEMAND GENERATOR MANAGER Last Filed Vital Signs Vital Sign Reading [...] as needed Medical Devices Implanted Type Area Law Office Assistant Device Identifier Shelf Expiration Date Model / Serial / Lot Ray Right: Eye Musculoskeletal Transplant [id number] Frozen Spine 7d Lordotic Trapezoid Spacer Allograft 790697 - [id number] - [id number] Implanted:Qty: 1 on 08/09/2022 by Olivier Marion MD at [facility] N/A: Spine Cervical Musculoskeletal Transplant [id number] 05/18/2026 [id number] / [id number] / Musculoskeletal Transplant [id number] Frozen Spine 7d Lordotic Trapezoid Spacer Allograft 230219 - [id number] - [id number] Implanted:Qty: 1 on 08/09/2022 by Olivier Marion MD at [facility] N/A: Spine Cervical Musculoskeletal Transplant [id number] 04/24/2026 [id number] / [id number] / Musculoskeletal Transplant [id number] Frozen Spine 7d Lordotic Trapezoid Spacer Allograft 587817 - [id number] - [id number] Implanted:Qty: 1 on 08/09/2022 by Olivier Marion MD at [facility] N/A: Spine Cervical Musculoskeletal Transplant [id number] 12/12/2026 [id number] / [id number] / [employer] 4mm 16mm Fix Screw Bone [id number] - [id number] Implanted:Qty: 8 on 08/09/2022 by Olivier Marion MD at [facility] N/A: Spine Cervical [employer] [id number] 6 / / [employer] C-Pancho Maxan 51mm Level 3 Fix Spine Cervical Anterior Plate Bone [id number] - [id number] Implanted:Qty: 1 on 08/09/2022 by Olivier Marion MD at [facility] N/A: Spine Cervical [employer] [id number] 1 / / [employer] Partnership Eviva 13cm Identifier Biopsy Site [id number] - [id number] Implanted:Qty: 1 on 09/18/2024 at [facility] Left: Breast [employer] [id number] 03/03/2025 SMARK-EV CARMEN-13 / / [id number] Procedures Procedure Name Priority Date/Time Associated Diagnosis Comments TARGET OPIOID SCREEN BY COMPOSITION PROFESSOR Routine 10/09/2024 8:18 AM CDT Chronic use of nonprescription opiate drugs (HCC) DRUGS OF ABUSE SCREEN, URINE WITH REFLEX CONFIRMATION Routine 10/09/2024 8:18 AM CDT Chronic use of nonprescription opiate drugs (HCC) PAIN MANAGEMENT PROFILE Routine 10/09/2024 8:18 AM CDT Chronic use of nonprescription opiate drugs (HCC) STEREOTACTIC BREAST BIOPSY LEFT Schedule Routine, Read Routine (OP Routine) 09/18/2024 3:39 PM DEMAND GENERATOR MANAGER Abnormal mammogram SURGICAL PATHOLOGY Routine 09/18/2024 3: 37 PM DEMAND GENERATOR MANAGER Abnormal mammogram DIAGNOSTIC MAMMOGRAM LEFT W NIKOLAS Schedule Routine, Read Routine (OP Routine) 09/18/2024 2:30 PM DEMAND GENERATOR MANAGER Abnormal mammogram PAIN MGMT IMAGING SI JOINT BILATERAL ARTHROGRPHY Schedule Routine, Read Routine (OP Routine) 09/09/2024 9:25 AM DEMAND GENERATOR MANAGER Sacroiliac joint dysfunction BREAST IMAGING MG DIAGNOSTIC OUTSIDE CONSULT Routine 08/26/2024 6:06 PM DEMAND GENERATOR MANAGER from Last 3 Months Results * Targeted Opioid Screen, Ur (10/09/2024 8:18 AM CDT) Pain mgt 6-Acetylmorphine, Ur Not Detected CutOff 10 ng/mL Pain mgt Buprenorphine, Ur Not Detected CutOff 5 ng/mL [facility] Pain mgt Buprenorphine metabolite (Norbuprenorphine), Ur Not Detected CutOff 5 ng/mL [facility] Pain mgt Codeine, Ur Not Detected CutOff 25 ng/mL [facility] Pain mgt Hydrocodone, Ur Detected CutOff 25 ng/mL [facility] Pain mgt Hydromorphone, Ur Not Detected CutOff 25 ng/mL [facility] Pain mgt Methadone, Ur Not Detected CutOff 25 ng/mL [facility] Pain mgt Methadone Metabolite (EDDP), Ur Not Detected CutOff 25 ng/mL [facility] Pain mgt Morphine, Ur Not Detected CutOff 25 ng/mL [facility] Pain mgt Oxycodone, Ur Not Detected CutOff 25 ng/mL [facility] Pain mgt Oxymorphone, Ur Not Detected CutOff 25 ng/mL [facility] Pain mgt Tapentadol, Ur Not Detected CutOff 25 ng/mL [facility] Pain mgt Tramadol, Ur Not Detected CutOff 25 ng/mL [facility] Pain mgt Tramadol metabolite (O-desmethyltramado l), Ur Not Detected CutOff 25 ng/mL [facility] Comment: Interpretive Data This test only detects [...] developed and its performance characteristics determined by [facility]. It has not been cleared or approved by the U.S. Food and Drug Administration. Current interpretive data was last revised 19. Pain mgt Naloxone, ur Not Detected cutoff 20 ng/ml [facility] Urine 10/09/2024 8:18 AM CDT 10/09/2024 4:17 PM CDT us Nancy Fernandez MD LAB URINE ORDERABLES Final Result [facility] Department of Laboratories [place], [place] [id number] * (ABNORMAL) Drugs of Abuse Screen, Urine with Reflex Confirmation (10/09/2024 8:18 AM CDT) [facility] Amphetamine, ur Not Detected CutOff 500ng/mL Comment: Interpretive Data - Amphetamines: Samples containing greater than 500 ng/mL d-methamphetamine or other cross-reacting amphetamine compounds are reported as positive. Amphetamine immunoassays are subject to significant false positive rates due to cross-reactivity of non-amphetamine drugs. Confirmatory testing required for definitive results. Current Interpretive Data was last reviewed 2023. Barbiturates, ur Not Detected CutOff 200ng/mL [facility] Comment: Interpretive Data - Barbiturates: Samples containing greater than 200 ng/mL secobarbital or other cross-reacting barbiturate compounds are reported as positive. False positive and false negative results are possible. Confirmatory testing required for definitive results. Current Interpretive Data was last reviewed 2023. Benzodiazepines, ur Screen Positive, presumptive (A) CutOff 100ng/mL [facility] Comment: Interpretive Data - Benzodiazepines: Samples containing greater than 100 ng/mL nordiazepam or other cross-reacting compounds are reported as positive. False positive and false negative results are possible. Confirmatory testing required for definitive results. Current Interpretive Data was last reviewed 2023. Cannabinoids, ur Screen Positive, presumptive (A) CutOff 50 ng/mL [facility] Comment: Interpretive Data - Cannabinoids: Samples containing greater than 50 ng/mL delta-9 THC -COOH or other cross- reacting compounds are reported as positive. False positive and false negative results are possible. Confirmatory testing required for definitive results. Current Interpretive Data was last reviewed 2023. Cocaine, ur Not Detected CutOff 150ng/mL [facility] Comment: Interpretive Data - Cocaine: Samples containing greater than 150 ng/mL benzoylecgonine or other cross- reacting compounds are reported as positive. False positive and false negative results are possible. Confirmatory testing required for definitive results. Current Interpretive Data was last reviewed 2023. Fentanyl, Ur Not Detected CutOff 5 ng/mL [facility] Comment: Interpretive Data - Fentanyl: Samples containing greater than 5 ng/mL norfentanyl, fentanyl, or other cross-reacting fentanyl compounds are reported as positive. False positive and false negative results are possible. Confirmatory testing required for definitive results. Current Interpretive Data was last reviewed 2023. Methadone, ur Not Detected CutOff 300ng/mL [facility] Comment: Interpretive Data - Methadone: Samples containing greater than 300 ng/mL d,l-methadone or other cross-reacting compounds are reported as positive. False positive and false negative results are possible. Confirmatory testing required for definitive results. Current Interpretive Data was last reviewed 2023. Opiates, ur Screen Positive, presumptive (A) CutOff 300ng/mL [facility] Comment: Interpretive Data - Opiates: Samples containing greater than 300 ng/mL morphine or other cross-reacting compounds are reported as positive. False positive and false negative results are possible. Confirmatory testing required for definitive results. Current Interpretive Data was last reviewed 2023. Oxycodone, ur Not Detected CutOff 100ng/mL [facility] Comment: Interpretive Data - Oxycodone: Samples containing greater than 100 ng/mL oxycodone or other cross-reacting compounds are reported as positive. False positive and false negative results are possible. Confirmatory testing required for definitive results. Current Interpretive Data was last reviewed 2023. Phencyclidine, ur Not Detected CutOff 25 ng/mL [facility] Comment: Interpretive Data - Phencyclidine: Samples containing greater than 25 ng/mL phencyclidine or other cross-reacting compounds are reported as positive. False positive and false negative results are possible. Confirmatory testing required for definitive results. Current Interpretive Data was last reviewed 2023. Urine Creatinine 282 mg/dL [facility] Comment: Interpretive Data Urine Creatinine: < 10 mg/dL is extremely dilute = or > 10 but < 20 mg/dL is dilute = or > 20 mg/dL is normal Current Interpretive Data was last revised on 2017. Urine 10/09/2024 8:18 AM CDT 10/09/2024 4:17 PM CDT Narrative [facility] - 10/09/2024 4:42 PM CDT Drug of Abuse screening is performed by immunoassay for medical purposes only. This is not to be used for Pain Management purposes. If Detected, confirmation testing will be performed for Amphetamines, Cocaine, Fentanyl, Methadone, Opiates, Oxycodone or Phencyclidine. Nancy Fernandez MD LAB URINE ORDERABLES Final Result [facility] [address] * Stereotactic Breast Biopsy Left (09/18/2024 3:39 PM DEMAND GENERATOR MANAGER) Anatomical Region Laterality Modality Breast Left Mammography 09/18/2024 4:55 PM DEMAND GENERATOR MANAGER Addenda Addendum by Cierra Torres MD on 09/22/2024 2:54 PM DEMAND GENERATOR MANAGER PATHOLOGY RESULTS: Diagnosis: Breast, left, upper outer mid depth, core biopsy - Calcifications associated with columnar cell change and benign lobules - Fibrocystic changes - No evidence of atypia or malignancy Please refer to pathology report for details. Pathology is benign and concordant. Normal interval screening mammography is recommended. Results and recommendations will be discussed with the patient by [facility] or Breast Surgical Oncology staff. Electronically signed by: Cierra Torres M.D. Impressions 09/18/2024 4:55 PM DEMAND GENERATOR MANAGER Successful vacuum-assisted core needle biopsy of the LEFT breast. Pathology is pending. ASSESSMENT: Post Procedure Mammograms for Marker Placement Electronically signed by: Cierra Torres M.D. Narrative 09/18/2024 4:55 PM DEMAND GENERATOR MANAGER EXAMINATION: LEFT STEREOTACTIC BREAST VACUUM-ASSISTED CORE BIOPSY [...] Final * Surgical pathology (09/18/2024 3:37 PM DEMAND GENERATOR MANAGER) Tissue specimen (specimen) (Breast biopsy, needle core) 09/18/2024 3:37 PM DEMAND GENERATOR MANAGER Comment:LEFT breast - uprigh t stereo biopsy - Upper Outer Mid Depth - Calcs - CAT 4A Narrative [facility]OLOGY [facility] - 09/22/2024 11:21 AM DEMAND GENERATOR MANAGER EPIC results best viewed via link to PDF [facility] [place] [address] Note to Patients: This report may contain [...] Gender: F : 1960 (Age: 64) Address: [address] [place] [address] Hospital #: [id number] Taken:09/18/2024 Received:09/18/2024 Reported: 09/22/2024 Patient Type: [facility] Ancillary Service: UNKNOWN Location: Physician(s): Viry Kennedy, [...] Surgical Pathology and Flow Cytometry Departments at [facility] as part of an ongoing quality assurance supervisor body program and in compliance with federally mandated [...] Surgical Pathology and Flow Cytometry Departments of [facility]. It has not been cleared or approved by the U. S. Food and Drug Administration. IMAGES AND SCANNED DOCUMENTS, IF INCLUDED, ONLY VIEWABLE IN PDF VERSION OF REPORT Viry Marinelli Marcia [employer] LAB PATHOLOGY ORDERABLES F inal Result PATHOLOGY [facility] * Diagnostic Mammogram Left W Nikolas (09/18/2024 2:30 PM DEMAND GENERATOR MANAGER) Anatomical Region Laterality Modality Breast Left Mammography 09/22/2024 2:54 PM DEMAND GENERATOR MANAGER Addenda Addendum by Cierra Torres MD on 09/22/2024 2:54 PM DEMAND GENERATOR MANAGER PATHOLOGY RESULTS: Diagnosis: Breast, left, upper outer mid depth, core biopsy - Calcifications associated with columnar cell change and benign lobules - Fibrocystic changes - No evidence of atypia or malignancy Please refer to pathology report for details. Pathology is benign and concordant. Normal interval screening mammography is recommended. Results and recommendations will be discussed with the patient by Breast [facility] or Breast Surgical Oncology staff. Electronically signed by: Cierra Torres M.D. Impressions 09/18/2024 4:55 PM DEMAND GENERATOR MANAGER Successful vacuum-assisted core needle biopsy of the LEFT breast. Pathology is pending. ASSESSMENT: Post Procedure Mammograms for Marker Placement Electronically signed by: Cierra Torres M.D. Narrative 09/18/2024 4:55 PM DEMAND GENERATOR MANAGER EXAMINATION: LEFT STEREOTACTIC BREAST VACUUM-ASSISTED CORE BIOPSY [...] Final * Imaging SI Joint Injection Bilateral ([id number]) (09/09/2024 9:25 AM DEMAND GENERATOR MANAGER) Narrative [facility] - 09/09/2024 9:25 AM DEMAND GENERATOR MANAGER The images from this study are not interpreted by Radiology. Please refer to the physician's procedure / OR operative note. Quentin Mai MD Wayne CAMPOVERDE Final Result [facility] * Breast Imaging DX Outside Consult (08/26/2024 6:06 PM DEMAND GENERATOR MANAGER) Anatomical Region Laterality Modality Breast N/A Mammography 08/27/2024 9:34 AM DEMAND GENERATOR MANAGER Impressions 08/27/2024 2:12 PM DEMAND GENERATOR MANAGER 0.9 cm grouped calcifications in the left [...] images may or may not represent the [place] source data set and thus may contain changes which may lower the sensitivity of the second opinion interpretation. Dictated by: Boby Stout D.O. The radiology attending physician has personally reviewed this study, and had reviewed and/or edited this written report and agrees with it. Electronically signed by: Flakita Fernandez M.D. Narrative 08/27/2024 2:12 PM DEMAND GENERATOR MANAGER EXAMINATION: REVIEW AND INTERPRETATION OF OUTSIDE IMAGING FACILITY PERFORMING OUTSIDE IMAGING: [facility] [place] EXAM(S) REVIEWED: 1. LEFT UNILATERAL DIAGNOSTIC [...] OF OUTSIDE IMAGING FACILITY PERFORMING OUTSIDE IMAGING: [employer] [place] EXAM(S) REVIEWED: 1. LEFT UNILATERAL DIAGNOSTIC MAMMOGRAM, [...] images may or may not represent the [place] source data set and thus may contain [...] Advance Directives For more information, please contact: [phone] * Full Code (Latest Code Status on File) Date Activated Date Inactivated Comments 08/09/2022 11:03 PM 08/12/2022 9:06 PM Care Teams Paper Cup Machine Operator Relationship Specialty Start Date End Date Peyman Ortega MD [address] [facility] [address] [place], [place] [id number] PCP - General Family Practice 05/13/24 Reanna Polanco, RN Registered Nurse 07/07/19 Sera Morley MD [address] [place], [place] [id number] Referring Physician Gynecology 08/08/24
--- OUTSIDE RECORDS SUMMARY | 2024-11-08 03:16 | XMS_ITS | Clinical Summary ---
Author Organization [facility] Address [address] [place] [address] Care Team Providers Care Web Solutions Architect Name Role Phone Reanna Polanco RN Unavailable Unavailab Peyman Carvajal MD Primary Care Provider Sera Morley MD Unavailable [phone] Allergies Active Allergy Reactions Criticality Noted Date [...] tablet 3 07/01/20 24 Active back brace [facility]- back brace for scoliosis 1 [...] (10/18/2023): Added automatically from request for surgery [id number] Added automatically from request for surgery [id number] Rotoscoliosis 11/30/2020 Sacroiliac joint dysfunction 11/30/2020 Muscle [...] 10/09/2024 11:59 PM CDT Hospital Encounter [facility] [address] [place] [address] Chronic use of nonprescription opiate drugs (HCC) Discharge Disposition: Discharge to home or self care 10/09/2024 7:58 AM CDT - 10/09/2024 11:59 PM CDT Hospital Encounter [facility] Center at the [facility] [address] [place] [address] Advanced [facility] [address] [place] [address] Nancy Fernandez MD Sacroiliac joint dysfunction (Primary Dx); Chronic use of opiate drug for therapeutic purpose; Rotoscoliosis; Pain of lumbar facet joint Discharge Disposition: Discharge to home or self care 10/09/2024 Telephone [facility] the [facility] [address] [place] [address] Nancy Fernandez MD Form for back brace faxed to [facility] 10/09/2024 Orders Only [facility] Pain Center at the [address] [place] [address] Nancy Fernandez MD Chronic use of nonprescription opiate drugs (HCC) (Primary Dx) 10/01/2024 11:15 AM BINDER AND BOX BUILDER Therapy [facility] Physical Therapy [facility] [address] [place] [address] Florinda Mcneal PTA Cervicalgia (Primary Dx) 09/23/2024 Results Follow-Up [facility] Surgery [address] [place] [address] [address] [place] [address] Viry Kennedy NP 09/23/2024 Telephone [facility] Surgery [address] [place] [address] 8 [place] [address] Viry Kennedy NP 09/18/2024 2:11 PM BINDER AND BOX BUILDER - 09/18/2024 11:59 PM BINDER AND BOX BUILDER Hospital Encounter [facility] Breast Imaging [address] [place] [address] Floor 8 [place] [address] Abnormal mammogram Discharge Disposition: Discharge to home or self care 09/18/2024 1:30 PM BINDER AND BOX BUILDER - 09/18/2024 11:59 PM BINDER AND BOX BUILDER Hospital Encounter [facility] - Breast Imaging [address] [facility] Floor 8 [place] [address] Abnormal mammogram Discharge Disposition: Discharge to home or self care 09/17/2024 9:15 AM BINDER AND BOX BUILDER Office Visit [facility] Surgery [address] [facility] [address] [place] [address] Viry Kennedy NP Abnormal finding on breast imaging (Primary Dx); Microcalcification of left breast on mammogram 09/09/2024 8:23 AM BINDER AND BOX BUILDER - 09/09/2024 11:59 PM BINDER AND BOX BUILDER Hospital Encounter [facility] [address] [place] [address] Advanced [facility] [address] [place] [address] Nancy Fernandez MD Bilateral low back pain without sciatica, unspecified chronicity (Primary Dx); Sacroiliac joint dysfunction; Chronic use of opiate drug for therapeutic purpose Discharge Disposition: Discharge to home or self care 09/08/2024 2:00 PM BINDER AND BOX BUILDER Therapy [facility] Physical Therapy [facility] [address] [address] Lyle Watson DPT Cervicalgia (Primary Dx) 09/05/2024 Telephone [facility] [address] [place] [address] [facility] [address] [place] [phone] Nancy Fernandez MD [facility] Preprocedure 09/03/2024 Telephone [facility] Breast Imaging [facility] ([facility] [address] [place] [address] Gail Johnson RN 08/28/2024 Telephone [facility] Advanced [facility] Breast Imaging [facility] [address] [place] [address] Gail Johnson RN 08/26/2024 6:06 PM BINDER AND BOX BUILDER - 08/26/2024 11:59 PM BINDER AND BOX BUILDER Hospital Encounter [facility] [address] [place] [address] Discharge Disposition: Discharge to home or self care 08/26/2024 1:00 PM BINDER AND BOX BUILDER Therapy [facility] Physical Therapy [address] [place] [address] Florinda Mcneal PTA Cervicalgia (Primary Dx) 08/22/2024 Orders Only [facility] [address] [facility] [address] [place] [address] Modesta Mary RN 08/15/2024 Orders Only [facility] Surgery [address] [facility] Floor [address] [place] [address] Viry Kennedy NP 08/13/2024 1:00 PM BINDER AND BOX BUILDER Therapy [facility] Physical Therapy [address] [place] [address] Lyle Watson DPT Cervicalgia (Primary Dx) 08/13/2024 Orders Only [facility] Surgery [facility] Floor [address] [place] [address] Viry Kennedy NP Abnormal mammogram (Primary Dx) 08/11/2024 12:15 PM BINDER AND BOX BUILDER - 08/11/2024 11:59 PM BINDER AND BOX BUILDER Hospital Encounter [facility] [address] [facility] [address] [place] [address] Nancy Fernandez MD Sacroiliac joint dysfunction (Primary [...] 04/18/2018 Surgical History Surgery Date Site/Laterality Comments [place] UNLISTED LAPAROSCOPY PX INTESTINE XCP RECTUM Intestinal [...] Father Reid Feldman Alive Maternal Grandfather Peter Saclido Maternal Grandmother Mother Daniella Feldman Mother's Brother [...] on file Legal Sex Female 2:03 AM BINDER AND BOX BUILDER Gender Identity Female 08/26/2020 6:26 AM BINDER AND BOX BUILDER Sexual Orientation Straight 08/26/2020 6: 26 AM BINDER AND BOX BUILDER Obstetrics History Last Filed Vital Signs Vital [...] as needed Medical Devices Implanted Type Area Screw Machine Set Up Operator Device Identifier Shelf Expiration Date Model / Serial / Lot Ray Right: Eye Musculoskeletal Transplant [id number] Frozen Spine 7d Lordotic Trapezoid Spacer Allograft [id number] - [id number] - [id number] Implanted:Qty: 1 on 08/09/2022 by Olivier Marion MD at [facility] N/A: Spine Cervical Musculoskeletal Transplant [id number] 05/18/2026 [id number] / [id number] / Musculoskeletal Transplant [id number] Frozen Spine 7d Lordotic Trapezoid Spacer Allograft 925997 - [id number] - [id number] Implanted:Qty: 1 on 08/09/2022 by Olivier Marion MD at [facility] N/A: Spine Cervical Musculoskeletal Transplant [id number] 04/24/2026 [id number] / [id number] / Musculoskeletal Transplant [id number] Frozen Spine 7d Lordotic Trapezoid Spacer Allograft 599439 - [id number] - [id number] Implanted:Qty: 1 on 08/09/2022 by Olivier Marion MD at [facility] N/A: Spine Cervical Musculoskeletal Transplant [id number] 12/12/2026 [id number] / [id number] / [employer] 4mm 16mm Fix Screw Bone [id number] - [id number] Implanted:Qty: 8 on 08/09/2022 by Olivier Marion MD at [facility] N/A: Spine Cervical [employer] [id number] 6 / / [employer] C-Pancho Maxan 51mm Level 3 Fix Spine Cervical Anterior Plate Bone [id number] - [id number] Implanted:Qty: 1 on 08/09/2022 by Olivier Marion MD at [facility] N/A: Spine Cervical [employer] [id number] 1 / / [employer] Eviva 13cm Identifier Biopsy Site Duybc-Yingb-[id number] - [id number] Implanted:Qty: 1 on 09/18/2024 at [facility] Left: Breast [employer] [id number] [facility]03/2025 [facility] / / [id number] Procedures Procedure Name Priority Date/Time Associated Diagnosis Comments TARGET OPIOID SCREEN BY GENERAL MANAGER Routine 10/09/2024 8:18 AM CDT Chronic use of nonprescription opiate drugs (HCC) DRUGS OF ABUSE SCREEN, URINE WITH REFLEX CONFIRMATION Routine 10/09/2024 8:18 AM CDT Chronic use of nonprescription opiate drugs (HCC) PAIN MANAGEMENT PROFILE Routine 10/09/2024 8:18 AM CDT Chronic use of nonprescription opiate drugs (HCC) STEREOTACTIC BREAST BIOPSY LEFT Schedule Routine, Read Routine (OP Routine) 09/18/2024 3:39 PM BINDER AND BOX BUILDER Abnormal mammogram SURGICAL PATHOLOGY Routine 09/18/2024 3: 37 PM BINDER AND BOX BUILDER Abnormal mammogram DIAGNOSTIC MAMMOGRAM LEFT W NIKOLAS Schedule Routine, Read Routine (OP Routine) 09/18/2024 2:30 PM BINDER AND BOX BUILDER Abnormal mammogram PAIN MGMT IMAGING SI JOINT BILATERAL ARTHROGRPHY Schedule Routine, Read Routine (OP Routine) 09/09/2024 9:25 AM BINDER AND BOX BUILDER Sacroiliac joint dysfunction BREAST IMAGING MG DIAGNOSTIC OUTSIDE CONSULT Routine 08/26/2024 6:06 PM BINDER AND BOX BUILDER from Last 3 Months Results * Targeted Opioid Screen, Ur (10/09/2024 8:18 AM CDT) [facility] Pain mgt 6-Acetylmorphine, Ur Not Detected CutOff 10 ng/mL Pain mgt Buprenorphine, Ur Not Detected CutOff 5 ng/mL [facility] Pain mgt Buprenorphine metabolite (Norbuprenorphine), Ur Not Detected CutOff 5 ng/mL [facility] Pain mgt Codeine, Ur Not Detected CutOff 25 ng/mL [facility] Pain mgt Hydrocodone, Ur Detected CutOff 25 ng/mL [facility] Pain mgt Hydromorphone, Ur Not Detected CutOff 25 ng/mL [facility] Pain mgt Methadone, Ur Not Detected CutOff 25 ng/mL [facility] Pain mgt Methadone Metabolite (EDDP), Ur Not Detected CutOff 25 ng/mL [facility] Pain mgt Morphine, Ur Not Detected CutOff 25 ng/mL [facility] Pain mgt Oxycodone, Ur Not Detected CutOff 25 ng/mL [facility] Pain mgt Oxymorphone, Ur Not Detected CutOff 25 ng/mL [facility] Pain mgt Tapentadol, Ur Not Detected CutOff 25 ng/mL [facility] Pain mgt Tramadol, Ur Not Detected CutOff 25 ng/mL [facility] Pain mgt Tramadol metabolite (O-desmethyltramado l), Ur Not Detected CutOff 25 ng/mL [facility] Comment: Interpretive Data This test [...] developed and its performance characteristics determined by [facility]. It has not been cleared or approved by the U.S. Food and Drug Administration. Current interpretive data was last revised 19. Pain mgt Naloxone, ur Not Detected cutoff 20 ng/ml [facility] Urine 10/09/2024 8:18 AM CDT 10/09/2024 4:17 PM CDT Nancy Fernandez MD LAB URINE ORDERABLES Final Result [facility] Department [place] [address] * (ABNORMAL) Drugs of Abuse Screen, Urine with Reflex Confirmation (10/09/2024 8:18 AM CDT) [facility] Amphetamine, ur Not Detected CutOff 500ng/mL Comment: Interpretive Data - Amphetamines: Samples containing greater than 500 ng/mL d-methamphetamine or other cross-reacting amphetamine compounds are reported as positive. Amphetamine immunoassays are subject to significant false positive rates due to cross-reactivity of non-amphetamine drugs. Confirmatory testing required for definitive results. Current Interpretive Data was last reviewed 2023. Barbiturates, ur Not Detected CutOff 200ng/mL [facility] Comment: Interpretive Data - Barbiturates: Samples containing greater than 200 ng/mL secobarbital or other cross-reacting barbiturate compounds are reported as positive. False positive and false negative results are possible. Confirmatory testing required for definitive results. Current Interpretive Data was last reviewed 2023. Benzodiazepines, ur Screen Positive, presumptive (A) CutOff 100ng/mL J[facility] Comment: Interpretive Data - Benzodiazepines: Samples containing greater than 100 ng/mL nordiazepam or other cross-reacting compounds are reported as positive. False positive and false negative results are possible. Confirmatory testing required for definitive results. Current Interpretive Data was last reviewed 2023. Cannabinoids, ur Screen Positive, presumptive (A) CutOff 50 ng/mL [facility] Comment: Interpretive Data - Cannabinoids: Samples containing greater than 50 ng/mL delta-9 THC -COOH or other cross- reacting compounds are reported as positive. False positive and false negative results are possible. Confirmatory testing required for definitive results. Current Interpretive Data was last reviewed 2023. Cocaine, ur Not Detected CutOff 150ng/mL JT [facility] Comment: Interpretive Data - Cocaine: Samples containing greater than 150 ng/mL benzoylecgonine or other cross- reacting compounds are reported as positive. False positive and false negative results are possible. Confirmatory testing required for definitive results. Current Interpretive Data was last reviewed 2023. Fentanyl, Ur Not Detected CutOff 5 ng/mL [facility] Comment: Interpretive Data - Fentanyl: Samples containing greater than 5 ng/mL norfentanyl, fentanyl, or other cross-reacting fentanyl compounds are reported as positive. False positive and false negative results are possible. Confirmatory testing required for definitive results. Current Interpretive Data was last reviewed 2023. Methadone, ur Not Detected CutOff 300ng/mL JT [facility] Comment: Interpretive Data - Methadone: Samples containing greater than 300 ng/mL d,l-methadone or other cross-reacting compounds are reported as positive. False positive and false negative results are possible. Confirmatory testing required for definitive results. Current Interpretive Data was last reviewed 2023. Opiates, ur Screen Positive, presumptive (A) CutOff 300ng/mL [facility] Comment: Interpretive Data - Opiates: Samples containing greater than 300 ng/mL morphine or other cross-reacting compounds are reported as positive. False positive and false negative results are possible. Confirmatory testing required for definitive results. Current Interpretive Data was last reviewed 2023. Oxycodone, ur Not Detected CutOff 100ng/mL [facility] Comment: Interpretive Data - Oxycodone: Samples containing greater than 100 ng/mL oxycodone or other cross-reacting compounds are reported as positive. False positive and false negative results are possible. Confirmatory testing required for definitive results. Current Interpretive Data was last reviewed 2023. Phencyclidine, ur Not Detected CutOff 25 ng/mL JT [facility] Comment: Interpretive Data - Phencyclidine: Samples containing greater than 25 ng/mL phencyclidine or other cross-reacting compounds are reported as positive. False positive and false negative results are possible. Confirmatory testing required for definitive results. Current Interpretive Data was last reviewed 2023. Urine Creatinine 282 mg/dL [facility] Comment: Interpretive Data Urine Creatinine: [...] MD LAB URINE ORDERABLES Final Result [facility] Department [place] [address] * Stereotactic Breast Biopsy Left (09/18/2024 3:39 PM BINDER AND BOX BUILDER) Anatomical Region Laterality Modality Breast Left Mammography 09/18/2024 4:55 PM BINDER AND BOX BUILDER Addenda Addendum by Cierra Torres MD on 09/22/2024 2:54 PM BINDER AND BOX BUILDER PATHOLOGY RESULTS: Diagnosis: Breast, left, upper outer mid depth, core biopsy - Calcifications associated with columnar cell change and benign lobules - Fibrocystic changes - No evidence of atypia or malignancy Please refer to pathology report for details. Pathology is benign and concordant. Normal interval screening mammography is recommended. Results and recommendations will be discussed with the patient by Breast [facility] or Breast Surgical Oncology staff. Electronically signed by: Cierra Torres M.D. Impressions 09/18/2024 4:55 PM BINDER AND BOX BUILDER Successful vacuum-assisted core needle biopsy of the LEFT breast. Pathology is pending. ASSESSMENT: Post Procedure Mammograms for Marker Placement Electronically signed by: Cierra Torres M.D. Narrative 09/18/2024 4:55 PM BINDER AND BOX BUILDER EXAMINATION: LEFT STEREOTACTIC BREAST VACUUM-ASSISTED CORE BIOPSY [...] are included within the tissue cores. A [employer] Mini Cork tissue marker clip was placed [...] Final * Surgical pathology (09/18/2024 3:37 PM BINDER AND BOX BUILDER) Tissue specimen (specimen) (Breast biopsy, needle core) 09/18/2024 3:37 PM BINDER AND BOX BUILDER Comment:LEFT breast - uprigh t stereo biopsy - Upper Outer Mid Depth - Calcs - CAT 4A Narrative PATHOLOGY TEMP LLB FOR ASP - 09/22/2024 11:21 AM BINDER AND BOX BUILDER EPIC results best viewed via link to PDF [facility] [address] [place] [address] Note to Patients: This report may contain [...] Gender: F : 1960 (Age: 64) Address: [address] [place] [address] Hospital #: [id number] Taken:09/18/2024 Received:09/18/2024 Reported: 09/22/2024 Patient Type: [facility] Ancillary Service: UNKNOWN Location: Physician(s): [...] Surgical Pathology and Flow Cytometry Departments at [facility] as part of an ongoing quality process engineer program and in compliance with federally mandated [...] Surgical Pathology and Flow Cytometry Departments of [facility]. It has not been cleared or approved by the U. S. Food and Drug Administration. IMAGES AND SCANNED DOCUMENTS, IF INCLUDED, ONLY VIEWABLE IN PDF VERSION OF REPORT Viry Kennedy NP LAB PATHOLOGY ORDERABLES F inal Result PATHOLOGY TEMP LLB FOR ASP * Diagnostic Mammogram Left W Nikolas (09/18/2024 2:30 PM BINDER AND BOX BUILDER) Anatomical Region Laterality Modality Breast Left Mammography 09/22/2024 2:54 PM BINDER AND BOX BUILDER Addenda Addendum by Cierra Torres MD on 09/22/2024 2:54 PM BINDER AND BOX BUILDER PATHOLOGY RESULTS: Diagnosis: Breast, left, upper outer [...] Cierra Torres M.D. Impressions 09/18/2024 4:55 PM BINDER AND BOX BUILDER Successful vacuum-assisted core needle biopsy of the LEFT breast. Pathology is pending. ASSESSMENT: Post Procedure Mammograms for Marker Placement Electronically signed by: Cierra Torres M.D. Narrative 09/18/2024 4:55 PM BINDER AND BOX BUILDER EXAMINATION: LEFT STEREOTACTIC BREAST VACUUM-ASSISTED CORE BIOPSY [...] are included within the tissue cores. A [employer] Mini Cork tissue marker clip was placed [...] by: Cierra Torres M.D. Viry Kennedy NP [facility] MAMMO PROCEDURES Edite d Result - Final * Imaging SI Joint Injection Bilateral ([id number]) (09/09/2024 9:25 AM BINDER AND BOX BUILDER) Narrative [facility] - 09/09/2024 9:25 AM BINDER AND BOX BUILDER The images from this study are not interpreted by Radiology. Please refer to the physician's procedure / OR operative note. Quentin CAMPOVERDE Final Result [facility] * Breast Imaging DX Outside Consult (08/26/2024 6:06 PM BINDER AND BOX BUILDER) Anatomical Region Laterality Modality Breast N/A Mammography 08/27/2024 9:34 AM BINDER AND BOX BUILDER Impressions 08/27/2024 2:12 PM BINDER AND BOX BUILDER 0.9 cm grouped calcifications in the left [...] images may or may not represent the [place] source data set and thus may contain changes which may lower the sensitivity of the second opinion interpretation. Dictated by: Boby Stout D.O. The radiology attending physician has personally reviewed this study, and had reviewed and/or edited this written report and agrees with it. Electronically signed by: Flakita Fernandez M.D. Narrative 08/27/2024 2:12 PM BINDER AND BOX BUILDER EXAMINATION: REVIEW AND INTERPRETATION OF OUTSIDE IMAGING FACILITY PERFORMING OUTSIDE IMAGING: [facility] EXAM(S) REVIEWED: 1. LEFT UNILATERAL DIAGNOSTIC MAMMOGRAM, [...] OF OUTSIDE IMAGING FACILITY PERFORMING OUTSIDE IMAGING: [facility] EXAM(S) REVIEWED: 1. LEFT UNILATERAL DIAGNOSTIC MAMMOGRAM, [...] images may or may not represent the [place] source data set and thus may contain changes which may lower the sensitivity of the second opinion interpretation. Dictated by: Boby Stout D.O. The radiology attending physician has personally reviewed this study, and had reviewed and/or edited this written report and agrees with it. Electronically signed by: Flakita Fernandez M.D. Viry Kennedy MOTOR AND GENERATOR ASSEMBLER IMG MAMMO PROCEDURES Final Result from Last 3 Months Insurance [employer] OPEN ACCESS [employer] OPEN ACCESS Advance Directives For more information, please contact: [phone] * Full Code (Latest Code Status on File) Date Activated Date Inactivated Comments 08/09/2022 11:03 PM 08/12/2022 9:06 PM Care Teams Web Solutions Architect Relationship Specialty Start Date End Date Peyman Ortega MD [address] [place], [place] [id number] PCP - General Family Practice 05/13/24 Reanna Polanco, RN Registered Nurse 07/07/19 Sera Morley MD [address] [place] [address] Referring Physician Gynecology 08/08/24
--- OUTSIDE RECORDS SUMMARY | 2024-11-08 03:16 | XMS_ITS | Clinical Summary ---
Author Organization [facility] Address [address] [place] [address] Care Team Providers Care Chief Of Vital Statistics Name Role Phone Unavailable Primary Care Provider [...] on file Legal Sex Female 6:44 PM HOP WEIGHER Gender Identity Not on file Sexual Orientation [...] OR WO CAD Routine 08/07/2024 1:23 PM HOP WEIGHER Abnormal mammogram from Last 3 Months or Most Recently Relevant to Health Maintenance Results * (ABNORMAL) MAMMO DIAGNOSTIC UNI LEFT W OR WO CAD (08/07/2024 1:23 PM HOP WEIGHER) Anatomical Region Laterality Modality Breast Left Mammography 08/07/2024 1:23 PM HOP WEIGHER Narrative 08/07/2024 1:28 PM HOP WEIGHER EXAM: MAMMO DIAGNOSTIC UNI LEFT W OR [...] Most Recently Relevant to Health Maintenance Insurance [facility] OPEN ACCESS HMO
--- OUTSIDE RECORDS SUMMARY | 2024-11-08 03:16 | XMS_ITS | Clinical Summary ---
Author Organization [facility] Address [address] [place] [address] Care Team Providers Care Medical Office Worker Name Role Phone Peyman Ortega MD Primary Care Provider Source Comments [facility] Affiliates and Associated Physician Practices is amultiple site organization consisting of ambulatory clinics and hospital sitesin [place], [place] and [place]. This disclosure is being madepursuant to the Care Everywhere program and may not contain all information available regarding this patient. Last updated 18.[facility] Allergies Active Allergy Reactions Criticality Noted Date Comments Capsaicin Other,Skin Reactions Low 09/26/1987 intolerable burning Pseudoephedrine Base Other Medium 05/04/2020 Bladder spasm Medications * Be aware that medications may not be up to date on this document. Alwaysverify current medications with the patient. montelukast (Singulair) 10 MG tablet Take 1 (one) tablet by mouth once daily 3 Active DULoxetine (Cymbalta) 60 MG capsule Take 1 (one) capsule by mouth 2 times daily 3 Active estradiol-noret hindrone (Activella) 1-0.5 MG tablet Take 1 (one) tablet by mouth once daily 3 Active metoprolol succinate XL 24hr (Toprol XL) [...] (one) tablet by mouth 4 times daily 4 Active HYDROcodone-bianca taminophen (Toppenish) 7.5-325 MG tablet Take 1 (one) tablet by mouth every 6 hours as needed pain 4 Active ALPHA LIPOIC ACID PO Take 550 mg by mouth once daily Active l-methylfolate (Deplin) 15 MG tablet Take 1 (one) tablet by mouth once daily Active meloxicam (Mobic) 15 MG tablet Take 1 (one) tablet by mouth once daily 4 Active Magnesium Gluconate (MAGNESIUM 27 PO) Magnesium 4 Active methocarbamol (Robaxin) 500 MG tablet Take 2 (two) tablets by mouth 4 Active zolpidem (Ambien) 10 MG tablet 1 tablet at bedtime as needed Oral Once a day for 90 days 4 Active hydrocortisone (Hytone) 2.5 % ointmentIndicat ions:Lichen sclerosus et atrophicus of the vulva Apply to vulvar tissue twice daily. 80 g 1 4 Active lurasidone (Latuda) 60 MG tablet Take 1 (one) tablet by mouth once daily 4 Active Active Problems Problem Noted Date Diagnosed Date Other spondylosis with radiculopathy, lumbar reg ion 11/27/2023 GERD (gastroesophageal reflux disease) 3 08/15/2023 Osteoporosis 08/09/2022 08/15/2023 Spinal stenosis of cervical region 07/07/2022 08/15/2023 Overview (08/15/2023): Added automatically from request for surgery [id number] Chronic use of opiate drug for therapeutic purpo se 11/19/2018 08/15/2023 Depression 09/29/2015 08/15/2023 Arthralgia of hip 09/29/2013 08/15/2023 Fibromyalgia 06/21/2010 08/15/2023 Generalized osteoarthritis 06/21/201008/15 Immunizations Immunization Administration Dates Next Due INFLUENZA VACCINE, QUADR. [...] at Not on file Legal Sex Female 5:44 AM CDT Gender Identity Not on file Sexual Orientation Not on file Last Filed Vital Signs Vital Sign Reading Time Taken Comments Blood Pressure 130/76 06/24/2024 1:40 PM USER EXPERIENCE ARCHITECT Pulse - - Temperature 37 C (98.6 F) 04/22/2024 3:16 PM CDT Respiratory Rate - - Oxygen Saturation - - Inhaled Oxygen Concentration - - Weight 66.9 kg (147 lb 6.4 oz) 06/24/2024 1:40 P M USER EXPERIENCE ARCHITECT Height 167.6 cm (5' 6 ) 06/24/2024 1:40 PM USER EXPERIENCE ARCHITECT Body Mass Index 23.79 06/24/2024 1:40 PM USER EXPERIENCE ARCHITECT Plan of Treatment Upcoming Encounters Date Type Department Care Team (Late st Contact Info) Description 12/10/2024 10:50 AM CDT Office Visit [facility] - CONSTRUCTION EQUIPMENT MECHANIC [address] [facility] [address] [place] [address] Valentina Hamm MD [address] [place] [address] Health Maintenance Due Date Last [...] 2024 05/12/2023, 04/15/2022, 11/06/2021, Additional history exists DEPRESSION SCREENING 07/30/2024 INFLUENZA VACCINE (Season Ended) 2025 05/12/2023, 04/28/2022, 04/15/2022, Additional history exists MAMMOGRAM 05/16/2025 [...] complete this topic MENINGOCOCCAL (Group B) VACCINE SHARED DECISION-MAKING Aged Out No longer eligible based on patient's age to complete this topic MENINGOCOCCAL GROUPS A/C/Y/W VACCINE Aged Out No longer eligible based on patient's age to complete this topic Insurance CIGNA CIGNA SELF PAY NO INSURANCE Member Subscriber Plan / Payer (Ef fective for All Dates) Name:Katrina Camarena Member ID:Not on file Relation to Subscriber:Not on file Name:KATRINA CAMARENA Subscriber ID:Not on file (Home) Address: [address] [place] [id number] Payer ID:Not on file Group ID:Not on file Type:Self Pay Address: [place], [place] Care Teams Medical Office Worker Relationship Specialty Start Date End Date Peyman Ortega MD [address] [facility] [address] [place] [phone] PCP - General Family Medicine 04/22/24
--- OUTSIDE RECORDS SUMMARY | 2024-11-08 03:16 | XMS_ITS | CONTINUITY OF CARE DOCUMENT ---
Author Name harvey gabriel Address Unknown Organization [facility] Address [address] [facility] [facility] [address] [place] [address] Phone [phone] Care Team Providers Care Computer Education Professor Name Role Phone harvey gabriel Unavailable Unavailable
--- OUTSIDE RECORDS SUMMARY | 2024-11-08 03:16 | XMS_ITS | Encounter Summary ---
Author Organization [facility] Healthcare Address [address] [place] [address] Care Team Providers Care Litigation Partner Name Role Phone Reanna Polanco RN Unavailable Unavailab Rohan Salvador MD Primary Care Provider Peyman Ortega MD Primary Care Provider Sera Morley MD Unavailable [phone] Encounter Details Date Type Department Care Team (Late st Contact Info) Description 11/04/2020 Telephone [facility] Radiology [address] [place] [address] Nancy Fernandez MD [phone] [employer], [place] [id number] Social History Tobacco Use Types Packs/Day Years [...] on file Legal Sex Female 2:03 AM ASW SPECIALIST Gender Identity Female 08/26/2020 6:26 AM ASW SPECIALIST Sexual Orientation Straight 08/26/2020 6: 26 AM ASW SPECIALIST documented as of this encounter Plan [...] on filedocumented in this encounter Care Teams Litigation Partner Relationship Specialty Start Date End Date Rohan Rothman MD [address] [place] [address] PCP - General 07/20/20 05/12/24 Peyman Ortega MD [address] [facility] [address] [place], [place] [id number] PCP - General Family Practice 05/13/24 Reanna Polanco RN Registered Nurse 07/07/19 Sera Morley MD [address] [facility] [address] [place] [address] Referring Physician Gynecology 08/08/24 documented as of this encounter
--- OUTSIDE RECORDS SUMMARY | 2024-11-08 03:16 | XMS_ITS | Encounter Summary ---
Author Organization [facility] Address [address] [place] [address] Phone Care Team Providers Care Vending Machine Collector Name Role Phone Reanna Polanco RN Unavailable Unavailab Peyman Carvajal MD Primary Care Provider Sera Morley MD Unavailable [phone] Encounter Details Date Type Department Care Team (Late st Contact Info) Description 09/23/2024 Results Follow-Up [facility] Surgery [address] [facility] [address] [place] [address] Viry Kennedy NP [address] [facility] [phone] [place] [address] Social History Tobacco Use Types Packs/Day Years [...] file Legal Sex Female 2:03 AM HOME THERAPY TEACHER Gender Identity Female 08/26/2020 6:26 AM HOME THERAPY TEACHER Sexual Orientation Straight 08/26/2020 6: 26 AM HOME THERAPY TEACHER documented as of this encounter Plan of [...] on filedocumented in this encounter Care Teams Vending Machine Collector Relationship Specialty Start Date End Date Peyman Ortega MD [address] [facility] [address] [place] [address] PCP - General Family Practice 05/13/24 Reanna Polanco RN Registered Nurse 07/07/19 Sera Morley MD [address] [place] [address] Referring Physician Gynecology 08/08/24 documented as of this encounter
--- OUTSIDE RECORDS SUMMARY | 2024-11-08 03:16 | XMS_ITS | Encounter Summary ---
Author Organization [facility] Healthcare Address [address] [place] [address] Care Team Providers Care Maintenance Groundman Name Role Phone Felicitas Samuel MD Primary Care Provider + Reanna Polanco RN Unavailable Unavailab Rohan Salvador MD Primary Care Provider Peyman Ortega MD Primary Care Provider Sera Morley MD Unavailable Reason for Visit * Reason Onset Date Comments CALL BACK 03/21/2018 Encounter Details Date Type Department Care Team (Late st Contact Info) Description 03/21/[address] 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 Gender Identity Female 08/26/2020 6:26 AM WATERWORKS PUMP STATION OPERATOR Sexual Orientation Straight 08/26/2020 6: 26 AM WATERWORKS PUMP STATION OPERATOR documented as of this encounter Plan of Treatment Not on file documented as of this encounter Visit Diagnoses Not on filedocumented in this encounter Care Teams Maintenance Groundman Relationship Specialty Start Date End Date Felicitas Samuel MD PCP - General 10/13/16 07/19/20 Rohan Rothman MD [address] [place] [address] PCP - General 07/20/20 05/12/24 Peyman Ortega MD [address] [facility] [address] [place] [address] PCP - General Family Practice 05/13/24 Reanna Polanco RN Registered Nurse 07/07/19 Sera Morley MD [address] [facility] [address] [place] [address] Referring Physician Gynecology 08/08/24 documented as of this encounter
[2024-11-08 03:20] LABS: Alanine Aminotransferase 23 U/L (6-35); Albumin Level 4.5 g/dL (3.5-5.1); Alkaline Phosphatase 59 U/L (38-126); Anion Gap 12 mmol/L (4-12); Aspartate Amino Transferase 27 U/L (14-36); Bilirubin,Total 0.4 mg/dL (0.2-1.3); Blood Urea Nitrogen 25 mg/dL (7-17); Calcium 9.5 mg/dL (8.4-10.2); Carbon Dioxide 25 mmol/L (22-30); Chloride 104 mmol/L (98-107); Estimated CRCL calculation 70 ml/min; Estimated Glomerular Filt Rate > 60; Glucose 115 mg/dL (65-110); Potassium 3.8 mmol/L (3.4-5.0); Sodium 141 mmol/L (137-145)
[2024-11-08 03:22] LABS: INR 0.9; Prothrombin Time 12.9 Seconds (11.1-14.7)
[2024-11-08 03:23] LABS: Partial Thromboplastin Time 23.8 Seconds (22.3-36.8)
[2024-11-08] MEDS: SODIUM CHLORIDE 0.9% IV 1,000 ML 999 ML IV CONT (04:13)
--- NOTE | 2024-11-08 04:15 | PC.NURSE ---
Patient informed of need for urine sample. Patient states she is not able to provide one at this time. Patient refusing straight cath at this time. Patient a/ox4, states she will try for a urine sample after some fluids infuse via IV.
[2024-11-08 04:30] LABS: Magnesium 2.1 mg/dL (1.6-2.3)
[2024-11-08 04:31] LABS: Ethanol < 10 mg/dL (<10)
--- NOTE | 2024-11-08 04:39 | ED.GENADULT ---
HPI - General Adult General Chief complaint: Altered Mental Status Stated complaint: confusion Time Seen by Provider: 11/08/24 03:01 History of Present Illness HPI narrative: Patient is 64-year-old female who presents emergency department with chief complaint of fatigue and confusion patient reports she was last known well around 1:00 p.m. yesterday patient states she went to bed and woke up around 10:00 p.m. and was confused. Patient has had difficulty remembering things reports she feels a little off balance reports no motor weakness in her arms or legs denies fall denies trauma patient does report she has had dark cloudy urine Related Data Home Medications ?Medication ?Instructions ?Recorded ?Confirmed ?Last Taken ?Type alpha lipoic acid 550 mg PO DAILY 04/19/20 11/08/24 07/18/24 History ascorbic acid (vitamin C) 1,000 mg 1 g PO DAILY 04/19/20 11/08/24 07/18/24 History tablet (Vitamin C) magnesium citrate 2 cap PO BID 04/19/20 11/08/24 07/18/24 History methocarbamol 500 mg tablet 1,000 mg PO QID 04/19/20 11/08/24 07/20/24 History calcium carbonate (Calcium 600) 600 mg PO BID 04/25/21 11/08/24 07/18/24 History zolpidem 10 mg tablet (Ambien) 10 mg PO QHS 04/25/21 11/08/24 Unknown History famotidine 10 mg tablet 10 mg PO DAILY 05/15/22 11/08/24 07/20/24 History duloxetine 60 mg capsule,delayed 60 mg PO BID 03/17/24 11/08/24 07/21/24 History release estradiol-norethindrone acet 1 1 tablet PO DAILY 03/17/24 11/08/24 07/20/24 History mg-0.5 mg tablet acetaminophen 650 mg 650 mg PO Q12H PRN pain 05/15/24 11/03/24 07/20/24 History tablet,extended release (Tylenol 8 Hour) meloxicam 15 mg tablet 15 mg PO DAILY 05/15/24 11/08/24 07/14/24 History vitamin B complex (Vitamins B 1 cap PO DAILY 07/14/24 11/08/24 07/18/24 History Complex capsule) baclofen 20 mg tablet 20 mg PO QID 07/22/24 11/08/24 Unknown History hydrocortisone 2.5 % topical 1 applic topical BID 07/22/24 11/08/24 Unknown History ointment hydrocodone 10 mg-acetaminophen 1 tablet PO 11/03/24 11/03/24 Unknown History 325 mg tablet lurasidone 80 mg tablet 80 mg PO 11/03/24 11/03/24 Unknown History Allergies Allergy/AdvReac Type Severity Reaction Status Date / Time Sulfa (Sulfonamide Allergy Intermediate Unknown Verified 11/08/24 02:52 Antibiotics) capsaicin AdvReac Severe burning Verified 11/08/24 02:52 sensation DECONGESTANT Allergy Intermediate BLADDER Uncoded 11/08/24 02:52 SPSAMS Review of Systems Review of Systems: A 10 system review of systems was completed on the patient and is negative except for what is stated in the HPI. Nursing and ancillary documentation was reviewed. [facility] Past Medical History Medical History 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 Vaginal delivery x2 Missed x1 Endometriosis Arthritis Anxiety Fibromyalgia Scoliosis Surgical History Surgical History History of D&C (~07/21/24) D&C hysteroscopy with resection of polyp S/P cervical spinal fusion (~08/09/22) C3-6 [place] teeth extracted 1982 History of endometrial ablation History of dilation and curettage 1988 History of laparoscopy early , endometriosis Family History Family History Father Cerebrovascular accident Depression Anxiety Family history of blood dyscrasia Mother Family history of chronic obstructive pulmonary disease Hypertension Anxiety Depression Thyroid disorder Grandparent Family history of cardiovascular disease Acute myocardial infarction Carcinoma of colon Family history of malignant neoplasm of breast in first degree relative Breast cancer Social History Social History Smoking packs per day: 1 Smoking cigarettes per day: 20.0 Years smoked: 4 Smoking pack-years: 4.00 Smoking status: Never smoker Tobacco type: cigarettes Second hand tobacco smoke exposure: No Smoking end date: 07/30/82 Alcohol intake: never Substance use: former Substance use type: marijuana Other substance usage details: DURING COLLEGE YRS Lack of Transportation: No Lack of Food: Never True Current Housing: I Have Housing Concerned About Future Housing: No Difficulty Paying Gas/Electric Bills: No Difficulty Paying for Meds: No Currently Unemployed: No Education: Bachelor's Degree Difficulty w/ Childcare or Family Care: No Living arrangements: with family Additional living arrangements comments: Occupation/Education: retired Gender identity (if verbalized by the patient): Female Sexual Orientation (if Verbalized by the Patient): Straight or Heterosexual Spiritual care concerns: No Course Course Emergency Course: GENERAL: Well-appearing, well-nourished, and in no acute distress. HEAD: Normocephalic, atraumatic. EYES: PERRLA and EOMI. ENT: Nares clear, no rhinorrhea or epistaxis. Mucous membranes moist. NECK: Supple. CHEST: Clear to auscultation. No respiratory distress. HEART: Regular rate and rhythm. No murmur heard. Normal peripheral pulses. ABDOMEN: Soft, nontender, nondistended, normal active bowel sounds. EXTREMITIES: Normal range of motion. No edema. SKIN: Warm, dry, no rash. NEURO: No focal deficits. Alert and oriented x3. Somewhat confused PSYCH: Normal mood and affect. Vital Signs Vital signs: Vital Signs Temperature 36.9 C 11/08/24 02:57 Pulse Rate 97 11/08/24 02:57 Respiratory Rate 19 11/08/24 02:57 Blood Pressure 144/90 H 11/08/24 02:57 Pulse Oximetry 97 11/08/24 02:57 Oxygen Delivery Room Air 11/08/24 02:57 Temperature 36.9 C 11/08/24 02:57 Pulse Rate 80 11/08/24 05:01 Respiratory Rate 17 11/08/24 05:01 Blood Pressure 176/89 H 11/08/24 05:01 Pulse Oximetry 100 11/08/24 05:01 Oxygen Delivery Room Air 11/08/24 03:09 Medical Decision Making [facility] Narrative Medical decision making narrative: Differential diagnosis includes electrolyte abnormality, dehydration, UTI, CVA, metabolic encephalopathy Laboratory studies were obtained on the patient showed normal CBC CMP showed no significant abnormality urinalysis showed no evidence UTI tox screen was positive for opiates ETOH was negative COVID flu and RSV were negative CTA head and neck showed no acute abnormality and no evidence of acute intracranial hemorrhage Vital Signs Vital Signs: Vital Signs Temperature 36.9 C 11/08/24 02:57 Pulse Rate 97 11/08/24 02:57 Respiratory Rate 19 11/08/24 02:57 Blood Pressure 144/90 H 11/08/24 02:57 Pulse Oximetry 97 11/08/24 02:57 Oxygen Delivery Room Air 11/08/24 02:57 Temperature 36.9 C 11/08/24 02:57 Pulse Rate 80 11/08/24 05:01 Respiratory Rate 17 11/08/24 05:01 Blood Pressure 176/89 H 11/08/24 05:01 Pulse Oximetry 100 11/08/24 05:01 Oxygen Delivery Room Air 11/08/24 03:09 Lab Data 11/08/24 03:05 11/08/24 03:05 Labs: Lab Results 11/08/24 11/08/24 11/08/24 Range/Units 03:05 04:12 04:56 WBC 5.9 (4.5-10.0) K/mm3 RBC 4.59 (4.2-5.4) M/mm3 Hgb 14.7 (12.0-15.0) g/dL Hct 44.5 (37.0-47.0) % MCV 96.9 (80-100) fl MCH 32.0 (26-34) pg MCHC 33.0 (32-36) g/dl RDW 12.5 (11.5-14.5) % Plt Count 262 (150-375) k/mm3 MPV 11.2 H (7.4-10.4) fl Immature Gran % (Auto) 0.0 (0-0.5) % Neut % (Auto) 63.8 (45.5-73.1) % Lymph % (Auto) 25.2 (18.3-44.2) % Frontier % (Auto) 9.1 H (2.6-8.5) % Eos % (Auto) 1.2 (0-4.4) % Baso % (Auto) 0.7 (0.2-1.2) % Lymph # (Auto) 1.49 (0.9-3.2) K/mm3 Frontier # (Auto) 0.5 (0.1-0.6) K/mm3 Eos # (Auto) 0.1 (0-0.3) K/mm3 Baso # (Auto) 0.0 (0.0-0.1) K/mm3 Abs Immat Gran (auto) 0.00 (0.00-0.031) K/mm3 Absolute Neuts (auto) 3.8 (1.3-6.7) K/mm3 Absolute Nucleated RBC 0.000 (0.0-0.012) K/mm3 Nucleated RBC % 0.0 (0.0-0.2) % PT 12.9 (11.1-14.7) Seconds INR 0.9 APTT 23.8 (22.3-36.8) Seconds Sodium 141 (137-145) mmol/L Potassium 3.8 (3.4-5.0) mmol/L Chloride 104 (98-107) mmol/L Carbon Dioxide 25 (22-30) mmol/L Anion Gap 12 (4-12) mmol/L BUN 25 H (7-17) mg/dL Creatinine 0.66 L (0.7-1.0) mg/dL Estim Creat Clear Calc 70 ml/min Estimated GFR > 60 (59 - ) Glucose 115 H (65-110) mg/dL POC Capillary Glucose 116 H (65-105) mg/dl Lactic Acid 1.1 (0.7-2.0) mmol/L Calcium 9.5 (8.4-10.2) mg/dL Magnesium 2.1 (1.6-2.3) mg/dL Total Bilirubin 0.4 (0.2-1.3) mg/dL AST 27 (14-36) U/L ALT 23 (6-35) U/L Alkaline Phosphatase 59 (38-126) U/L Troponin I < 0.012 (0.000-0.034) ng/mL Total Protein 7.0 (6.3-8.2) g/dL Albumin 4.5 (3.5-5.1) g/dL Procalcitonin 0.0 ng/mL Urine Color Yellow (Yellow) Urine Appearance Clear (Clear) Urine pH 7.5 (5.0-9.0) Ur Specific Bruno > 1.045 H (1.001-1.035) Urine Protein Negative (Negative) mg/dL Urine Glucose (UA) Negative (Negative) mg/dL Urine Ketones Negative (Negative) mg/dL Ur Blood (Man) Negative (Negative) Urine Nitrate Negative (Negative) Urine Bilirubin Negative (Negative) Urine Urobilinogen 0.2 (<2.0) mg/dL Leukocyte Esterase Rfl Negative (Negative) ROLLY/UL Urine Opiates Screen Positive A (Negative) Urine Methadone Screen Negative (Negative) Ur Barbiturates Screen Negative (Negative) Ur Phencyclidine Scrn Negative (Negative) Ur Amphetamine Screen Negative (Negative) U Benzodiazepines Scrn Negative (Negative) Urine Cocaine Screen Negative (Negative) U Cannabinoids Screen Negative (Negative) Ethyl Alcohol < 10 (<10) mg/dL Influenza A (RT-PCR) Negative (Negative) Influenza B (RT-PCR) Negative (Negative) RSV (RT-PCR) Negative (Negative) SARS-CoV-2 RNA (RT-PCR) Negative (Negative) Discharge Plan Discharge Clinical Impression: Altered mental status Patient Disposition: Still a Patient Condition: Stable Patient Language: Georgian Prescriptions: No Action famotidine 10 mg tablet 10 mg PO DAILY estradiol-norethindrone acet 1-0.5 mg tablet 1 tablet PO DAILY duloxetine 60 mg capsule,delayed release(DR/EC) 60 mg PO BID calcium carbonate [Calcium 600] 600 mg calcium (1,500 mg) tablet 600 mg PO BID zolpidem [Ambien] 10 mg tablet 10 mg PO QHS hydrocodone-acetaminophen 10-325 mg tablet 1 tablet PO lurasidone 80 mg tablet 80 mg PO meloxicam 15 mg tablet 15 mg PO DAILY baclofen 20 mg tablet 20 mg PO QID hydrocortisone 2.5 % ointment 1 applic topical BID methocarbamol 500 mg tablet 1,000 mg PO QID ascorbic acid (vitamin C) [Vitamin C] 1,000 mg Tablet 1 g PO DAILY alpha lipoic acid 550 mg PO DAILY magnesium citrate 250 MG 2 cap PO BID acetaminophen [Tylenol 8 Hour] 650 mg tablet extended release 650 mg PO Q12H PRN (Reason: pain) vitamin B complex [Vitamins B Complex] Capsule 1 cap PO DAILY montelukast [Singulair] 10 mg tablet 10 mg PO DAILY Qty: 90 3RF metoprolol succinate 25 mg tablet extended release 24 hr See Rx Instructions .ROUTE .COMPLEX Qty: 90 2RF Dose Instruction: TAKE 1 TABLET DAILY Rx Instructions: TAKE 1 TABLET DAILY Follow-up/Referrals: Hermelinda Ortega MD [Primary Care Provider] - Time of Disposition: 06:07
[2024-11-08 04:44] LABS: Lactic Acid Reflex 1.1 mmol/L (0.7-2.0)
[2024-11-08 04:54] LABS: Influenza A QL RT-PCR Negative (Negative); Influenza B QL RT-PCR Negative (Negative); RSV RNA, RT-PCR Negative (Negative); SARS-CoV-2 RNA PCR Negative (Negative)
[2024-11-08 05:07] LABS: Add Urine Microscopic? NO; Appearance Urine Clear (Clear); Bilirubin Urine Negative (Negative); Blood Urine Negative (Negative); Color Urine Yellow (Yellow); Glucose Urine UA Negative (Negative); Ketones Urine Negative (Negative); Leukocyte Esterase Ur Negative LEU/UL (Negative); Nitrate Urine Negative (Negative); Protein Urine Negative (Negative); Specific Grav Ur > 1.045 (1.001-1.035); Urobilinogen Urine 0.2 mg/dL (<2.0); pH Urine 7.5 (5.0-9.0)
[2024-11-08 05:16] LABS: Troponin I < 0.012 ng/mL (0.000-0.034)
[2024-11-08 05:23] LABS: Amphetamine Screen Urine Negative (Negative); Barbiturate Screen Urine Negative (Negative); Benzodiazepines Screen Urine Negative (Negative); Cannabinoid Screen Urine Negative (Negative); Cocaine Screen Urine Negative (Negative); Methadone Screen Urine Negative (Negative); Opiate Screen Urine Positive (Negative); Phencyclidine Screen Urine Negative (Negative)
[2024-11-08] MEDS: SODIUM CHLORIDE 0.9% IV 1,000 ML 125 ML IV CONT (06:55)
--- NOTE | 2024-11-08 07:25 | ADMGEN ---
This patient, Annette Santiago, was admitted to Medical Room 347-. Patient/family oriented to hospital policies and general routines including ID bracelet, bed and alarms, visiting hours, pain management, procedures, bathroom and other care routines, personal items, smoking policy, room service/diet, and visiting hours. Information on how to activate the Rapid Response Team has been discussed. Patient/Family are encouraged to report perceived risks to care and to ask questions if they do not understand what they are told or what they should do.
[2024-11-08] MEDS: HYDROcodone/acetaminophen (*CRX) 10-325 MG TABLET 1 TAB PO (12:25)
--- NOTE | 2024-11-08 12:39 | P.SS_ITS ---
Same Day Admit/Disch: HPI History of Present Illness Chief complaint: Altered mental status <Jesus Hamlin, Student - Last Filed: 11/08/24 14:18> Narrative: Annette Santiago is a 64 year old female with history of low back pain, scoliosis, arthritis, and fibromyalgia presenting for fatigue and confusion. She had an episode of fatigue yesterday and slept from 1pm to 11pm. She woke up confused, and was taken to the hospital by her son around 3am of 11/08/24. Notable symptoms include issues with balance, aphasia, forgetfulness. Episodes of aphasia and fatigue began around her husbands passing February of last year, and symptoms are worse as the days go on. Family contributes that she has never been like this before, and symptoms that were once sporadic are now completely consistent. She sees a pain specialist at [facility] for management of chronic pain medications which notably include daily Lutada, Robaxin, Ambien, cymbalta, meloxicam, and hydrocodone/acetaminophen. She has had burning with urination and pelvic discomfort but believes its due to coffee ingested yesterday. Denies recent illness, fever, cough, dyspnea, chest pain, headache, vision changes, motor weakness, paresthesias, and abdominal pain. Urinalysis showed no evidence of acute cystitis. Urine toxicology screen was positive for opiates Covid/flu/RSV was negative CTA head and neck showed no acute abnormality and no evidence of acute intracranial hemorrhage Laboratory studies showed CBC and CMP within normal limits, with some evidence of dehydration as by mildly elevated BUN and mildly low creatinine <Jesus Hamlin, Student - Last Filed: 11/08/24 14:18> Annette Santiago is a 64 year old female with history of low back pain, scoliosis, arthritis, and fibromyalgia presenting for fatigue and confusion. She had an episode of fatigue yesterday and slept from 1pm to 11pm. She woke up confused, and was taken to the hospital by her son around 3am of 11/08/24. Notable symptoms include issues with balance, aphasia, forgetfulness. Episodes of aphasia and fatigue began around her husbands passing February of last year, and symptoms are worse as the days go on. Family contributes that she has never been like this before, and symptoms that were once sporadic are now completely consistent. She sees a pain specialist at [facility] for management of chronic pain medications which notably include daily Lutada, Robaxin, Ambien, cymbalta, meloxicam, and hydrocodone/acetaminophen. She has had burning with urination and pelvic discomfort but believes its due to coffee ingested yesterday. Denies recent illness, fever, cough, dyspnea, chest pain, headache, vision changes, motor weakness, paresthesias, and abdominal pain. Urinalysis showed no evidence of acute cystitis. Urine toxicology screen was positive for opiates Covid/flu/RSV was negative CTA head and neck showed no acute abnormality and no evidence of acute intracranial hemorrhage Laboratory studies showed CBC and CMP within normal limits, with some evidence of dehydration as by mildly elevated BUN and mildly low creatinine Neurology was consulted and saw pt- no acute interventions or recommendations <Gayle Lockett, CODING FILE CLERK - Last Filed: 11/08/24 14:25> [facility] Past Medical History Medical History: Medical History 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 Vaginal delivery x2 Missed x1 Endometriosis Arthritis Anxiety Fibromyalgia Scoliosis <Jesus Hamlin, Student - Last Filed: 11/08/24 14:18> Surgical History Surgical History: Surgical History History of D&C (~07/21/24) D&C hysteroscopy with resection of polyp S/P cervical spinal fusion (~08/09/22) C3-6 [place] teeth extracted 1982 History of endometrial ablation History of dilation and curettage 1988 History of laparoscopy early , endometriosis <Jesus Hamlin, Student - Last Filed: 11/08/24 14:18> Family History Family History: Family History Father Cerebrovascular accident Depression Anxiety Family history of blood dyscrasia Mother Family history of chronic obstructive pulmonary disease Hypertension Anxiety Depression Thyroid disorder Grandparent Family history of cardiovascular disease Acute myocardial infarction Carcinoma of colon Family history of malignant neoplasm of breast in first degree relative Breast cancer <Jesus Hamlin, Student - Last Filed: 11/08/24 14:18> Social History Social History: Social History Smoking packs per day: 1 Smoking cigarettes per day: 20.0 Years smoked: 3 Smoking pack-years: 3.00 Smoking status: Former smoker Tobacco type: cigarettes Second hand tobacco smoke exposure: No Smoking end date: 07/30/82 Alcohol intake: never Substance use: never Substance use type: marijuana Other substance usage details: DURING COLLEGE YRS Do You Feel Safe in your Home?: Yes Lack of Transportation: No Lack of Food: Never True Current Housing: I Have Housing Concerned About Future Housing: No Difficulty Paying Gas/Electric Bills: No Difficulty Paying for Meds: No Currently Unemployed: No Education: Bachelor's Degree Difficulty w/ Childcare or Family Care: No Living arrangements: with family Additional living arrangements comments: Occupation/Education: retired Gender identity (if verbalized by the patient): Female Sexual Orientation (if Verbalized by the Patient): Straight or Heterosexual Spiritual care concerns: No <Jesus Hamlin, Student - Last Filed: 11/08/24 14:18> Same Day Admit/Disch: Med Pre-admit Medications Home Medications: Home Medications ?Medication ?Instructions ?Recorded ?Confirmed ?Type alpha lipoic acid 550 mg PO DAILY 04/19/20 11/08/24 History ascorbic acid (vitamin C) 1,000 mg 1 g PO DAILY 04/19/20 11/08/24 History tablet (Vitamin C) magnesium citrate 2 cap PO BID 04/19/20 11/08/24 History methocarbamol 500 mg tablet 1,000 mg PO QID 04/19/20 11/08/24 History calcium carbonate (Calcium 600) 600 mg PO BID 04/25/21 11/08/24 History famotidine 10 mg tablet 10 mg PO DAILY 05/15/22 11/08/24 History duloxetine 60 mg capsule,delayed 60 mg PO BID 03/17/24 11/08/24 History release estradiol-norethindrone acet 1 1 tablet PO DAILY 03/17/24 11/08/24 History mg-0.5 mg tablet acetaminophen 650 mg 650 mg PO Q12H PRN pain 05/15/24 11/08/24 History tablet,extended release (Tylenol 8 Hour) meloxicam 15 mg tablet 15 mg PO DAILY 05/15/24 11/08/24 History montelukast 10 mg tablet 10 mg PO DAILY #90 tabs 06/13/24 11/08/24 Rx (Singulair) vitamin B complex (Vitamins B 1 cap PO DAILY 07/14/24 11/08/24 History Complex capsule) baclofen 20 mg tablet 20 mg PO QID 07/22/24 11/08/24 History hydrocortisone 2.5 % topical 1 applic topical BID 07/22/24 11/08/24 History ointment metoprolol succinate 25 mg See Rx Instructions .Route 08/26/24 11/08/24 Rx tablet,extended release 24 hr .COMPLEX #90 tabs hydrocodone 10 mg-acetaminophen 1 tablet PO Q6H PRN pain 11/03/24 11/08/24 History 325 mg tablet lurasidone 80 mg tablet 80 mg PO QPM 11/03/24 11/08/24 History estradiol 10 mcg vaginal tablet 10 mcg vaginal HS 11/08/24 11/08/24 History trazodone 50 mg tablet 50 mg PO HS PRN insomnia #30 tabs 11/08/24 Rx <Jesus Hamlin, Student - Last Filed: 11/08/24 14:18> Review of Systems Review of Systems All systems reviewed & are unremarkable except as noted in HPI and below <Jesus Hamlin, Student - Last Filed: 11/08/24 14:18> Exam Narrative: GENERAL: Well-appearing, well-nourished, and in no acute distress. HEAD: Normocephalic, atraumatic. EYES: PERRLA and EOMI. ENT: Mucous membranes moist. NECK: Supple. CHEST: Clear to auscultation. No respiratory distress. HEART: Regular rate and rhythm. No murmur heard. Normal peripheral pulses. ABDOMEN: Soft, nontender, nondistended, normal active bowel sounds. EXTREMITIES: Normal range of motion. No edema. SKIN: Warm, dry, no rash. NEURO: No focal deficits. Alert and oriented x3. Somewhat confused, aphasia on conversation. PSYCH: Normal mood and affect. Heel to saunders/finger to nose tests negative for ataxia. <Jesus Hamlin, Student - Last Filed: 11/08/24 14:18> GENERAL: Well-appearing, well-nourished, and in no acute distress. HEAD: Normocephalic, atraumatic. EYES: PERRLA and EOMI. ENT: Mucous membranes moist. NECK: Supple. CHEST: Clear to auscultation. No respiratory distress. HEART: Regular rate and rhythm. No murmur heard. Normal peripheral pulses. ABDOMEN: Soft, nontender, nondistended, normal active bowel sounds. EXTREMITIES: Normal range of motion. No edema. SKIN: Warm, dry, no rash. NEURO: No focal deficits. Alert and oriented x3. Somewhat confused, aphasia on conversation. Heel to saunders/finger to nose tests negative for ataxia. alert and pleasant PSYCH: Normal mood and affect. <Gayle Lockett APRN - Last Filed: 11/08/24 14:25> Const: General: cooperative <Gayle Lockett APRN - Last Filed: 11/08/24 14:25> DS: Data Data Completed and Pending Completed studies during hospitalization: Head/Neck CTA Brain MRI EKG <Valentin Barclay - Last Filed: 11/08/24 14:18> Labs on day of discharge: Labs from last 24 hours 11/08/24 11/08/24 11/08/24 04:56 04:12 03:05 WBC 5.9 RBC 4.59 Hgb 14.7 Hct 44.5 MCV 96.9 MCH 32.0 MCHC 33.0 RDW 12.5 Plt Count 262 MPV 11.2 H Immature Gran % (Auto) 0.0 Neut % (Auto) 63.8 Lymph % (Auto) 25.2 Jasper % (Auto) 9.1 H Eos % (Auto) 1.2 Baso % (Auto) 0.7 Lymph # (Auto) 1.49 Jasper # (Auto) 0.5 Eos # (Auto) 0.1 Baso # (Auto) 0.0 Abs Immat Gran (auto) 0.00 Absolute Neuts (auto) 3.8 Absolute Nucleated RBC 0.000 Nucleated RBC % 0.0 PT 12.9 INR 0.9 APTT 23.8 Sodium 141 Potassium 3.8 Chloride 104 Carbon Dioxide 25 Anion Gap 12 BUN 25 H Creatinine 0.66 L Estim Creat Clear Calc 70 Estimated GFR > 60 Glucose 115 H POC Capillary Glucose 116 H Lactic Acid 1.1 Calcium 9.5 Magnesium 2.1 Total Bilirubin 0.4 AST 27 ALT 23 Alkaline Phosphatase 59 Troponin I < 0.012 Total Protein 7.0 Albumin 4.5 Procalcitonin 0.0 Urine Color Yellow Urine Appearance Clear Urine pH 7.5 Ur Specific Mcclure > 1.045 H Urine Protein Negative Urine Glucose (UA) Negative Urine Ketones Negative Ur Blood (Man) Negative Urine Nitrate Negative Urine Bilirubin Negative Urine Urobilinogen 0.2 Leukocyte Esterase Rfl Negative Urine Opiates Screen Positive A Urine Methadone Screen Negative Ur Barbiturates Screen Negative Ur Phencyclidine Scrn Negative Ur Amphetamine Screen Negative U Benzodiazepines Scrn Negative Urine Cocaine Screen Negative U Cannabinoids Screen Negative Ethyl Alcohol < 10 Influenza A (RT-PCR) Negative Influenza B (RT-PCR) Negative RSV (RT-PCR) Negative SARS-CoV-2 RNA (RT-PCR) Negative <Valentin Barclay - Last Filed: 11/08/24 14:18> DS: Summary Hospital Course Reason for hospitalization: Altered mental status <Valentin Barclay - Last Filed: 11/08/24 14:18> Hospital Course: Patient was taken to the emergency room for acute onset altered mental status following waking from sleep at 11pm on 11/07. Presentation included fatigue, confusion, aphasia, and memory problems. - No limb weakness or focal deficits were present and patient denied any history of fall - Physical exam was unremarkable, the patient was alert and oriented with some confusion present - Patient additionally presented with some dysuria, but urinalysis was negative for any signs for acute cystitis - EKG was attained with no acute pathologies evident - CTA of head and neck showed no acute abnormality and no evidence of acute intracerebral hemorrhage Patient was admitted 11/08 for further workup, monitoring, and imaging of the brain - MRI without and with contrast was done, there was no evidence of acute isc hemic infarct - There was evidence of mild cerebral volume loss and chronic small vessel ischemic disease - Upon taking a history, it was found there was a multi month history of aphasia and memory problems, while this was an acute worsening - Spoke with patient about medication regimen, and how it could be contributing to chronic or focal decline - Precautions exist in older patients with Lutada, hydrocodone, Robaxin, Meloxicam, and Ambien according to Beer's criteria Gave the following recommendations regarding current presentation with lack of a focal cause - Counseled patient on meeting with pain doctor about consolidating medications - Advised on trial of trazadone and no Ambien to see if it improves symptoms - Follow up with primary care physician advised for management of medication list and management of prolonged aphasia/memory problems - Return to ER if focal deficits occur like weakness, slurred speech, or if symptoms acutely worsen - Return to ER if dysuria persists, urine changes color, or pelvic pain persists <Jesus Hamlin, Student - Last Filed: 11/08/24 14:18> Patient was taken to the emergency room for acute onset altered mental status following waking from sleep at 11pm on 11/07. Presentation included fatigue, confusion, aphasia, and memory problems. - No limb weakness or focal deficits were present and patient denied any history of fall - Physical exam was unremarkable, the patient was alert and oriented with some confusion present, which is not new. - Patient additionally presented with some dysuria, but urinalysis was negative for any signs for acute cystitis - EKG was attained with no acute pathologies evident - CTA of head and neck showed no acute abnormality and no evidence of acute intracerebral hemorrhage Patient was admitted 11/08 for further workup, monitoring, and imaging of the brain - MRI without and with contrast was done, there was no evidence of acute ischemic infarct - There was evidence of mild cerebral volume loss and chronic small vessel ischemic disease - Upon taking a history, it was found there was a multi month history of aphasia and memory problems - Spoke with patient about medication regimen, and how it could be contributing to chronic or focal decline - Precautions exist in older patients with Lutada, hydrocodone, Robaxin, Meloxicam, and Ambien according to Beer's criteria Gave the following recommendations regarding current presentation with lack of a focal cause - Counseled patient on meeting with pain doctor about consolidating medications - Advised on trial of trazadone and no Ambien to see if it improves symptoms - Follow up with primary care physician advised for management of medication list and management of prolonged aphasia/memory problems - Return to ER if focal deficits occur like weakness, slurred speech, or if symptoms acutely worsen - Return to ER if dysuria persists, urine changes color, or pelvic pain persists <Gayle Lockett APRN - Last Filed: 11/08/24 14:25> Status at Discharge Functional status at discharge: independent ambulation <Gayle Lockett APRN - Last Filed: 11/08/24 14:25> Overall status at discharge: patient is progressing back to baseline <Gayle Lockett APRN - Last Filed: 11/08/24 14:25> Time Spent with Patient Time attestation: Total time spent providing and/or coordinating discharge services: <Valentin Barclay - Last Filed: 11/08/24 14:18> Time spent: Greater than 30 minutes <Gayle Lockett CODING FILE CLERK - Last Filed: 11/08/24 14:25> DS: Admitting Diagnosis Discharge Date 11/08 <Gayle Lockett CODING FILE CLERK - Last Filed: 11/08/24 14:25> Admitting Diagnosis confusion, ams <Gayle Lockett CODING FILE CLERK - Last Filed: 11/08/24 14:25> DS: Discharge Diagnosis Discharge Diagnosis (1) Altered mental status: Qualifiers: Altered mental status type: unspecified Qualified Code(s): R41.82 - Altered mental status, unspecified <Jesus Hamlin Student - Last Filed: 11/08/24 14:18> Code(s): R41.82 - Altered mental status, unspecified <Jesus Hamlin Student - Last Filed: 11/08/24 14:18> Status: Acute <Jesus Hamlin Student - Last Filed: 11/08/24 14:18> Discharge Plan Discharge Attending physician on discharge: Adi Dominguez <Valentin Barclay - Last Filed: 11/08/24 14:18> Adi Dominguez <Gayle Lockett, CODING FILE CLERK - Last Filed: 11/08/24 14:25> Consulting providers: Bin Rothman <Jesus Hamlin Student - Last Filed: 11/08/24 14:18> Discharging Clinician: Gayle Lockett <Jesus Hamlin Student - Last Filed: 11/08/24 14:18> Gayle Lockett <Gayle Lockett, CODING FILE CLERK - Last Filed: 11/08/24 14:25> Patient Disposition: Home <Valentin Barclay - Last Filed: 11/08/24 14:18> Activity: may shower <Jesus Hamlin Student - Last Filed: 11/08/24 14:18> may shower <Gayle Lockett APRN - Last Filed: 11/08/24 14:25> Diet: heart healthy <Jesus Hamlin Student - Last Filed: 11/08/24 14:18> heart healthy <Gayle Lockett APRN - Last Filed: 11/08/24 14:25> Discharge Instructions: Please f/u with your PCP and pain mngmnt md as we discussed. You are taking a lot of medications that could potentially cause side effects like altered mental status, confusion and respiratory depression. Lets try to avoid Ambien (sleeping pill) and try trazadone instead. Avoid caffeinated drinks and alcohol after noon (avoid alcohol before noon also). Stay well hydrated- drink water. If you develop any other concerning symptoms: confusion, numbness.tingling or any other new or worsening symptoms, please return to ER. <Valentin Barclay - Last Filed: 11/08/24 14:18> Patient Instructions: Antibiotic Form <Valentin Barclay - Last Filed: 11/08/24 14:18> Patient Language: Rw[place]an <Valentin Barclay - Last Filed: 11/08/24 14:18> Stand Alone Forms: General Discharge Information <Valentin Barclay - Last Filed: 11/08/24 14:18> Follow-up/Referrals: Hermelinda Ortega MD [Primary Care Provider] - 2 Weeks <Valentin Barclay - Last Filed: 11/08/24 14:18> Discharge Medications: New trazodone 50 mg tablet 50 mg PO HS PRN (Reason: insomnia) Qty: 30 0RF Continued famotidine 10 mg tablet 10 mg PO DAILY estradiol-norethindrone acet 1-0.5 mg tablet 1 tablet PO DAILY duloxetine 60 mg capsule,delayed release(DR/EC) 60 mg PO BID calcium carbonate [Calcium 600] 600 mg calcium (1,500 mg) tablet 600 mg PO BID hydrocodone-acetaminophen 10-325 mg tablet 1 tablet PO Q6H PRN (Reason: pain) lurasidone 80 mg tablet 80 mg PO QPM meloxicam 15 mg tablet 15 mg PO DAILY baclofen 20 mg tablet 20 mg PO QID hydrocortisone 2.5 % ointment 1 applic topical BID methocarbamol 500 mg tablet 1,000 mg PO QID ascorbic acid (vitamin C) [Vitamin C] 1,000 mg Tablet 1 g PO DAILY alpha lipoic acid 550 mg PO DAILY magnesium citrate 250 MG 2 cap PO BID acetaminophen [Tylenol 8 Hour] 650 mg tablet extended release 650 mg PO Q12H PRN (Reason: pain) vitamin B complex [Vitamins B Complex] Capsule 1 cap PO DAILY estradiol 10 mcg tablet 10 mcg VAGINAL HS montelukast [Singulair] 10 mg tablet 10 mg PO DAILY Qty: 90 3RF metoprolol succinate 25 mg tablet extended release 24 hr See Rx Instructions .ROUTE .COMPLEX Qty: 90 2RF Dose Instruction: TAKE 1 TABLET DAILY Rx Instructions: TAKE 1 TABLET DAILY Discontinued zolpidem [Ambien] 10 mg tablet 10 mg PO QHS <Jesus Hamlin Student - Last Filed: 11/08/24 14:18> Date of admission: 11/08/24 06:30 <Jesus Hamlin Student - Last Filed: 11/08/24 14:18> Primary Care Provider: Hermelinda Ortega <Jesus Hamlin, Student - Last Filed: 11/08/24 14:18> Admitting Provider: Mateusz Alfredo <Jesus Hamlin Student - Last Filed: 11/08/24 14:18> Attending physician on admission: Mateusz Alfredo <Jesus Hamlin Student - Last Filed: 11/08/24 14:18> Condition: Stable <Jesus Hamlin Student - Last Filed: 11/08/24 14:18>
--- NOTE | 2024-11-08 14:41 | PCOTNOTE ---
Occupational therapy attempted evaluation with RN noting that patient has discharge orders in and is functioning independently. No evaluation is required. Orders completed
== END 2024-11-08 15:27 | disposition home or self-care (01) ==
LOC: ANHED 06:07 → ANH3MED 14:13
PROVIDERS: Admitting Provider Internal Medicine; Emergency Provider Emergency Medicine; PCP Family Medicine; Visit Provider General Practice
DX: R41.82 Altered mental status, unspecified (principal); M41.9 Scoliosis, unspecified; M54.50 Low back pain, unspecified; M19.90 Unspecified osteoarthritis, unspecified site; M79.7 Fibromyalgia; G89.29 Other chronic pain; F41.9 Anxiety disorder, unspecified; Z20.822 Contact with and (suspected) exposure to COVID-19; Z79.899 Other long term (current) drug therapy; Z87.891 Personal history of nicotine dependence; Z98.1 Arthrodesis status; Z98.890 Other specified postprocedural states
CPT/HCPCS: 36415; 70496; 70498; 70553; 80053; 80307; 81003; 82077; 82948; 83605; 83735; 84145; 84484; 85025; 85610; 85730; 87637; 93005; 96360; 96361; 99285; A9270; A9579; G0378; J7030; Q9967

== ENCOUNTER 2025-04-01 00:12 | Day surgery (SDC) | payer OTHER, SELFPAY ==
[2025-03-18 09:34] VITALS: BMI 24.3
--- OUTSIDE RECORDS SUMMARY | 2025-04-01 00:18 | XMS_ITS | Clinical Summary ---
Author Organization [facility] Address [address] [place] [address] Care Team Providers Care Advanced Practice Rn Name Role Phone Reanna Polanco RN Unavailable Unavailab Peyman Carvajal MD Primary Care Provider Sera Morley MD Unavailable [phone] Allergies Active Allergy Reactions Criticality Noted Date Comments Adhesive Rash,Muscle pain,Urticaria Medium 09/09/2024 Athletic tape Capsaicin Other (See comments) Low 2024 intolerable burning Rrp-Iupgllmej-Cwkgvtlchvr en Other (See comments) Medium 11/14/2021 Decongestant Capsule Other (See comments) Low 06/05/2011 bladder spasms with decongestants Pseudoephedrine Other (See comments) Medium 05/04/2020 Bladder spasm Sulfa (Sulfonamide Antibiotics) Unknown Medium 11/14/2021 Medications estradiol-nore thindrone (ACTIVELLA) 1-0.5 mg per tablet [...] (three) times a day with meals Active hydrocortisone 2.5 % ointment Apply 1 Application topically 2 (two) times a day 04/22/20 24 Active meloxicam (MOBIC) 15 mg tablet Take 1 tablet (15 mg total) by mouth daily 90 tablet 3 07/01/20 24 Active lurasidone (LATUDA) 80 mg tablet TAKE 1 TABLET BY MOUTH DAILY IN THE EVENING WITH FOOD 08/07/19 25 Active estradioL (VAGIFEM) 10 mcg tablet 09/05/19 25 Active methocarbamoL (ROBAXIN) 500 mg tablet Take 2 tablets (1,000 mg total) by mouth 4 (four) times a day as needed for muscle spasms 240 tablet 2 02/07/20 25 Active mirtazapine (REMERON) 30 mg tablet 01/08/20 25 Active oxyCODONE-acet aminophen (PERCOCET) 7.5-325 mg per tabletIndicati ons:Pain Take 1 tablet by mouth every 6 (six) hours as needed for pain 120 tablet 03/27/20 25 Active mirtazapine (REMERON) 15 mg tablet Take 1 tablet (15 mg total) by mouth nightly 025 Discontin ued(Thera py completed ) HYDROcodone-ac etaminophen (NORCO) 10-325 mg per tabletIndicati ons:Pain Take 1 tablet by mouth every 6 (six) hours as needed for pain 120 tablet 02/24/20 25 025 Discontin ued(Reord er) HYDROcodone-ac etaminophen (NORCO) 10-325 mg per tabletIndicati ons:Pain Take 1 tablet by mouth every 6 (six) hours as needed for pain 120 tablet 03/25/20 25 025 Discontin ued(Alter moises therapy) Active Problems Problem Noted Date Diagnosed Date Other spondylosis with radiculopathy, lumbar reg ion 11/27/2023 Cervical post-laminectomy syndrome 10/31/2022 Cervical spinal stenosis 08/09/2022 Osteoporosis 08/09/2022 GERD (gastroesophageal reflux disease) 3 S/P cervical discectomy 08/09/2022 Spinal stenosis of cervical region 07/07/2022 Overview (10/18/2023): Added automatically from request for surgery [id number] Added automatically from request for surgery [id number] Rotoscoliosis 11/30/2020 Sacroiliac joint dysfunction 11/30/2020 Muscle [...] Encounters Date Type Department Care Team Description 03/27/2025 12:54 PM CDT - 03/27/2025 11:59 PM CDT Hospital Encounter [facility] at the [facility] [address] [facility] [address] [place] [address] Nancy Fernandez MD Sacroiliac joint dysfunction; Sacroiliitis Discharge Disposition: Discharge to home or self care 03/27/[address] [facility] at the [facility] [address] [facility] [address] [place] [address] Nancy Fernandez MD Med Refill 03/25/[address] [facility] Pain [place] at the [address] Advanced [facility] [address] [place] [address] Nancy Fernandez MD INSURANCE 03/11/2025 Orders Only [facility] at the [address] [place] [address] Nancy Fernandez MD Sacroiliac joint dysfunction (Primary Dx); Sacroiliitis 02/25/2025 Results Follow-Up [facility] Cardiology [address] [place] [address] 8th [place] [address] [place] [address] Mateusz Upton MD ECG 12 lead 02/12/2025 2:00 PM CDT Office Visit [facility] Cardiology [address] [place] [address] 8th [place] [address] [place] [address] Mateusz Upton MD Tachycardia (Primary Dx) from Last 3 Months Immunizations Immunization Administration Dates Next Due Influenza, Quadrivalent, Spl it, Intramuscular 05/05/2019 Influenza, Quadrivalent, Spl it, Preservative Free, Intramuscular 05/02/2021,05/04/2020,04/18/2018 Influenza, Trivalent, IM (MDV) 06/22/2014 Influenza, Unspecified 04/28/2022 Tdap 04/18/2018 Surgical History Surgery Date Site/Laterality Comments ME UNLISTED LAPAROSCOPY PX INTESTINE XCP RECTUM Intestinal [...] Arthritis Mother Daniella Grotefendt COPD Mother Daniella Washingtontefendt Depression Mother Daniella Grotefenmann Heart failure Mother Daniella Feldman Family h istory of congestive heart failure - (Added by TW Conv) Hypertension Mother Daniella Stewartfenmann Arthritis Mother's Brother Eddie Salcido Depression Mother's [...] Grandmother Son 1 Son 2 Roberto Carlos Santiago Social History Tobacco Use Types Packs/Day Years Used Date Smoking Tobacco: Former Cigarettes 1 5 0 11/27/1978 - 09/28/1983 Smokeless Tobacco: Never Tobacco Cessation:Counseling Given: Not Answered Alcohol Use Standard Drinks/Week Comments Never 0 (1 standard drink = 0.6 oz pur e alcohol) denies Hunger Vital Sign Answer Date Recorded Within the past 12 months, y ou worried that your food would run out before you got the money to buy more. Never true 10/10/19 25 Within the past 12 months, t he food you bought just didn't last and you didn't have money to get more. Never true 10/09/2024 AUDIT-C Answer Date Recorded Q1: How often do you have a drink containing alcohol? Never 03/27/2025 Q2: How many drinks containi ng alcohol do you have on a typical day when you are drinking? Patient does not drink Q3: How often do you have si x or more drinks on one occasion? Never 03/27/2025 Personal Safety Answer Date Recorded Getting School Help Needed Denies 07/11 Comments No Sex and Gender Information Value Date Recorded Sex Assigned at Not on file Legal Sex Female 2:03 AM POSTULANT Gender Identity Female 08/26/2020 6:26 AM POSTULANT Sexual Orientation Straight 08/26/2020 6: 26 AM POSTULANT Obstetrics History Last Filed Vital Signs Vital Sign Reading Time Taken Comments Blood Pressure 154/93 03/27/2025 2:21 PM CDT Pulse 82 03/27/2025 2:21 PM CDT Temperature 7.7 C (45.9 F) 03/27/2025 1:07 PM CDT Respiratory Rate 16 03/27/2025 2:21 PM CDT Oxygen Saturation 97% 03/27/2025 2:21 PM CDT Inhaled Oxygen Concentration - - Weight 72.6 kg (160 lb) 03/27/2025 1:07 PM CDT Height 172.7 cm (5' 8) 03/27/2025 1:07 PM CDT Body Mass Index 24.33 03/27/2025 1:07 PM CDT Plan of Treatment Health Maintenance Due Date Last Done Comments Cervical Cancer Screening 1960 Colon Cancer Screening-Colonoscopy 1960 Depression Screening 1960 Hepatitis C Screening 1960 Hepatitis B Screening 1978 Regular Well Visit/Exam 18-64 1978 Zoster Vaccine (1 of 2) 2010 Covid-19 Vaccine ( - season) 2025 11/06/2021, 05/05/2021, 10/22/2020, Additional history exists Influenza Vaccine (#1) 2025 2, 05/02/2021, 05/04/2020, Additional history exists Breast Cancer Screening-Mammogram 07/08/2025 07/08/2024, 07/08/2024, 05/16/2023 DTaP/Tdap/Td Vaccine (3 - Td or Tdap) 04/18/2028 04/18/2018, 12/13/2006, 08/12/1990 Pneumococcal vaccine <65 Aged Out No longer eligible based on patient's age to complete this topic Goals Goal Patient Goal Type Associated Problems Recent Progress Patient-Stated? Author CCM Chronic Pain Care Plan Chronic Care Management Worsening( 1:10 PM CDT) Bessy Gayle, RN Note: Problem: Chronic Pain Goals: 1. Minimize further functional decline 2. Maximize quality of life 3. Control pain Strategies: - Activity/exercise program recommendation - Conservative stepwise pain medicine strategy with multi-disciplinary approach - Recommend healthy lifestyle strategies and compensatory methods as needed Medical Devices Implanted Type Area [employer] Consultant Device Identifier Shelf Expiration Date Model / Serial / Lot Ray Right: Eye Musculoskeletal Transplant [id number] Frozen Spine 7d Lordotic Trapezoid Spacer Allograft [id number] - [id number] - [id number] Implanted:Qty: 1 on 08/09/2022 by Olivier Marion MD at [facility] N/A: Spine Cervical Musculoskeletal Transplant [id number] 05/18/2026 [id number] / [id number] / Musculoskeletal Transplant [id number] Frozen Spine 7d Lordotic Trapezoid Spacer Allograft [id number] - [id number] - [id number] Implanted:Qty: 1 on 08/09/2022 by Olivier Marion MD at [facility] N/A: Spine Cervical Musculoskeletal Transplant [id number] 04/24/2026 [id number] / [id number] / Musculoskeletal Transplant [id number] Frozen Spine 7d Lordotic Trapezoid Spacer Allograft 184835 - [id number] - [id number] Implanted:Qty: 1 on 08/09/2022 by Olivier Marion MD at [facility] N/A: Spine Cervical Musculoskeletal Transplant [id number] 12/12/2026 [id number] / [id number] / [employer] 4mm 16mm Fix Screw Bone [id number] - [id number] Implanted:Qty: 8 on 08/09/2022 by Olivier Marion MD at [facility] N/A: Spine Cervical [employer]ANN [employer] [id number] / / [employer] C-Pancho Maxan 51mm Level 3 Fix Spine Cervical Anterior Plate Bone [id number] - [id number] Implanted:Qty: 1 on 08/09/2022 by Olivier Marion MD at [facility] N/A: Spine Cervical [employer] [id number] / / [employer] Eviva 13cm Identifier Biopsy Site Xktom-Cccgd-19 - [id number] Implanted:Qty: 1 on 09/18/2024 at [facility] Left: Breast [employer] [id number] [facility]/03/2025 [facility] / / [id number] Procedures Procedure Name Priority Date/Time Associated Diagnosis Comments PAIN MGMT IMAGING SI JOINT BILATERAL ARTHROGRPHY Schedule Routine, Read Routine (OP Routine) 03/27/2025 2:08 PM CDT Sacroiliac joint dysfunction Sacroiliitis ECG 12-LEAD Routine 02/12/2025 2:10 PM CDT Tachycardia from Last 3 Months Results * Imaging SI Joint Injection Bilateral ([id number]) (03/27/2025 2:08 PM CDT) Narrative [facility] - 03/27/2025 2:09 PM CDT The images from this study are not interpreted by Radiology. Please refer to the physician's procedure / OR operative note. us Nancy Fernandez MD IMG PAIN MGMT PROCEDURES F inal Result [facility] * ECG 12 lead (02/12/2025 2:10 PM CDT) us Mateusz Upton MD ECG ORDERABLES Final R esult from Last 3 Months Insurance CIGNA OPEN ACCESS CIG CIG OPEN ACCESS Advance Directives For more information, please contact: [phone] * Full Code (Latest Code Status on File) Date Activated Date Inactivated Comments 08/09/2022 11:03 PM 08/12/2022 9:06 PM Care Teams Advanced Practice Rn Relationship Specialty Start Date End Date Peyman Ortega MD [address] [facility] [address] [place] [address] PCP - General Family Practice 05/13/24 Reanna Polanco, RN Registered Nurse 07/07/19 Sera Morley MD [address] [place] [address] Referring Physician Gynecology 08/08/24
--- OUTSIDE RECORDS SUMMARY | 2025-04-01 00:18 | XMS_ITS | Clinical Summary ---
Author Organization [facility] Address [address] [facility] [place] [address] Care Team Providers Care Tractor Operator Battery Name Role Phone Peyman Ortega MD Primary Care Provider Source Comments [facility],non[facility] Affiliates and Associated Physician Practices is amultiple site organization consisting of ambulatory clinics and hospital sitesin [place], [place], [place] and [place]. This disclosure is being madepursuant to the Care Everywhere program and may not contain all information available regarding this patient. Last updated 18.[facility] Allergies Active Allergy Reactions Criticality Noted Date [...] (four) tablets by mouth once daily Active HYDROcodone-bianca taminophen ([place]) 7.5-325 MG tablet Take 1 (one) tablet [...] 2 (two) tablets by mouth 4 Active lurasidone (Latuda) 60 MG tablet Take 1 (one) tablet by mouth once daily 4 Active hydrocortisone (Hytone) 2.5 % ointmentIndicat ions:Lichen sclerosus et atrophicus of the vulva APPLY TO VULVAR TISSUE TWICE A DAY 56.7 g 3 5 Active estradiol (Vagifem) 10 MCG vaginal tablet 5 Active mirtazapine (Remeron) 15 MG tablet Take 1 (one) tablet by mouth at bedtime 5 Active traZODone (Desyrel) 100 MG tablet TAKE 1 TABLET BY MOUTH EVERY DAY AT BEDTIME NEEDED FOR INSOMNIA 5 Active Active Problems Problem Noted Date Diagnosed Date Other spondylosis with radiculopathy, lumbar reg ion 11/27/2023 GERD (gastroesophageal reflux disease) 3 08/15/2023 Osteoporosis 08/09/2022 08/15/2023 Spinal stenosis of cervical region 07/07/2022 08/15/2023 Overview (08/15/2023): Added automatically from request for surgery [id number] Chronic use of opiate drug for therapeutic [...] drink = 0.6 oz pur e alcohol) PHQ-2 Answer Date Recorded Patient Health Questionnaire-2 Score 0 12/10/2024 Comments No Sex and Gender Information Value Date Recorded Sex Assigned at Not on file Legal Sex Female 5:44 AM CDT Gender Identity Not on file Sexual Orientation Not on file Last Filed Vital Signs Vital Sign Reading Time Taken Comments Blood Pressure 138/80 12/10/2024 10:08 AM CDT Pulse - - Temperature 37 C (98.6 F) 04/22/2024 3:16 PM CDT Respiratory Rate - - Oxygen Saturation - - Inhaled Oxygen Concentration - - Weight 65.8 kg (145 lb) 12/10/2024 10:08 AM CDT Height 167.6 cm (5' 6) 12/10/2024 10:08 AM CDT Body Mass Index 23.4 12/10/2024 10:08 AM CDT Plan of Treatment Upcoming Encounters Date Type Department Care Team (Late st Contact Info) Description 08/12/2025 10:30 AM WOOD HEEL FLAP INSERTER Office Visit [facility] - CURRICULUM COORDINATOR [address] [place] [address] Valentina Hamm MD [address] [address] Health Maintenance Due Date Last Done Comments COLOGUARD (AGES 45-75) - COLON CA SCREENING 1960 COLON MONITORING 1960 COLONOSCOPY - COLON CA SCREENING 1960 CT COLONOGRAPHY - COLON CA SCREENING 1960 Colorectal Cancer Screening 1960 FIT - COLON CA SCREENING 1960 FLEX SIG - COLON CA SCREENING 1960 LIPID TESTING 1960 HIV SCREENING 1975 HEPATITIS C SCREENING 05/29/1978 DTAP/TDAP/TD VACCINES (1 - Tdap) 1979 PAP SMEAR 1981 PNEUMOCOCCAL VACCINE 50+ (1 of 1 - PCV) 2010 ZOSTER VACCINE (1 of 2) 2010 COVID-19 VACCINE ( season) 2024 05/12/2023, 04/15/2022, 11/06/2021, Additional history exists INFLUENZA VACCINE (#1) 2025 , 04/28/2022, 04/15/2022, Additional history exists MAMMOGRAM 08/07/2026 08/07/2024, 06/29, 05/16/2023 Respiratory Syncytial Virus (RSV) Vaccine Pt: or over 60 yrs (1 - 1-dose 75+ series) 2035 DEPRESSION SCREENING Completed 12/10/2024 HEPATITIS B VACCINE Aged Out No longe [...] age to complete this topic Insurance CIGNA SELF PAY NO INSURANCE Member Subscriber Plan / Payer (Ef fective for All Dates) Name:JackKatrina Member ID:Not on file Relation to Subscriber:Not on file Name:JULIO CAMARENABLAKE Ramos Subscriber ID:Not on file (Home) Address: [address] [place] [id number] Payer ID:Not on file Group ID:Not on file Type:Self Pay Address: [place], [place] Care Teams Tractor Operator Battery Relationship Specialty Start Date End Date Peyman Ortega MD [address] [facility] [place] [address] PCP - General Family Medicine 04/22/24
--- OUTSIDE RECORDS SUMMARY | 2025-04-01 00:18 | XMS_ITS | Encounter Summary ---
Author Organization [facility] Healthcare Address [address] [place] [address] Care Team Providers Care Tape Editor Name Role Phone Reanna Polanco RN Unavailable Unavailab Rohan Salvador MD Primary Care Provider Peyman Ortega MD Primary Care Provider Sera Morley MD Unavailable [phone] Encounter Details Date Type Department Care Team (Late st Contact Info) Description 11/04/2020 Telephone [facility] Radiology [address] [place] [address] Nancy Fernandez MD [phone] [place], [place] [id number] Social History Tobacco Use Types Packs/Day Years [...] file Legal Sex Female 2:03 AM DIRECTOR REGULATORY COMPLIANCE Gender Identity Female 08/26/2020 6:26 AM DIRECTOR REGULATORY COMPLIANCE Sexual Orientation Straight 08/26/2020 6: 26 AM DIRECTOR REGULATORY COMPLIANCE documented as of this encounter Plan of Treatment Not on file documented as of this encounter Goals Goal Patient Goal Type Associated Problems Recent Progress Patient-Stated? Author CCM Chronic Pain Care Plan Chronic Care Management Worsening( 1:10 PM CDT) Bessy Gayle RN Note: Problem: Chronic Pain Goals: 1. Minimize further functional decline 2. Maximize quality of life 3. Control pain Strategies: - Activity/exercise program recommendation - Conservative stepwise pain medicine strategy with multi-disciplinary approach - Recommend healthy lifestyle strategies and compensatory methods as needed documented as of this encounter Visit Diagnoses Not on filedocumented in this encounter Care Teams Tape Editor Relationship Specialty Start Date End Date Rohan Rothman MD [address] [place] [address] PCP - General 07/20/20 05/12/24 Peyman Ortega MD [address] [facility] [address] [place], [place] [address] PCP - General Family Practice 05/13/24 Reanna Polanco RN Registered Nurse 07/07/19 Sera Morley MD [address] [facility] [address] [place], [place] [address] Referring Physician Gynecology 08/08/24 documented as of this encounter
--- OUTSIDE RECORDS SUMMARY | 2025-04-01 00:18 | XMS_ITS | Encounter Summary ---
Author Organization [facility] Healthcare Address [address] [facility] [address] [place] [address] Care Team Providers Care Instructional Technologist Name Role Phone Felicitas Samuel MD Primary Care Provider + Reanna Polanco RN Unavailable Unavailab Rohan Salvador MD Primary Care Provider Peyman Ortega MD Primary Care Provider Sera Morley MD Unavailable [phone] Reason for Visit * Reason Onset Date Comments CALL BACK 03/21/2018 Encounter Details Date Type Department Care Team (Late st Contact Info) Description 03/21/2018 Telephone [facility] Center at the [place] for Advanced Medicine [address] [facility] [address] [place] [address] Nancy Fernandez MD [address] [facility] [phone] [place] [address] CALL BACK Social History Tobacco Use Types Packs/Day Years Used Date Smoking Tobacco: Never Smokeless Tobacco: Never Comments Unknown Sex and Gender Information Value Date Recorded Sex Assigned at Not on file Legal Sex Female 2:03 AM HOGSHEAD MAT ASSEMBLER Gender Identity Female 08/26/2020 6:26 AM HOGSHEAD MAT ASSEMBLER Sexual Orientation Straight 08/26/2020 6: 26 AM HOGSHEAD MAT ASSEMBLER documented as of this encounter Plan of Treatment Not on file documented as of this encounter Visit Diagnoses Not on filedocumented in this encounter Care Teams Instructional Technologist Relationship Specialty Start Date End Date Felicitas Samuel MD PCP - General 10/13/16 07/19/20 Rohan Rothman MD [address] [place] [address] PCP - General 07/20/20 05/12/24 Peyman Ortega MD [address] [facility] [address] [place] [address] PCP - General Family Practice 05/13/24 Reanna Polanco RN Registered Nurse 07/07/19 Sera Morley MD [address] [facility] [address] [place] [address] Referring Physician Gynecology 08/08/24 documented as of this encounter
--- OUTSIDE RECORDS SUMMARY | 2025-04-01 00:18 | XMS_ITS | Encounter Summary ---
Author Organization [facility] Healthcare Address [address] [facility] [address] [place] [address] Care Team Providers Care Cloth Printer Helper Name Role Phone Felicitas Samuel MD Primary Care Provider + Reanna Polanco RN Unavailable Unavailab Rohan Salvador MD Primary Care Provider Peyman Ortega MD Primary Care Provider Sera Morley MD Unavailable [phone] Reason for Visit * Reason Onset Date Comments Prior Auth 06/11/2019 Celecoxib 200mg Encounter Details Date Type Department Care Team (Late st Contact Info) Description 06/11/2019 Telephone [facility] Center at the [place] for Advanced Medicine [address] [facility] [address] [place] [address] Nancy Fernandez MD [address] [facility] [phone] [place] [address] Prior Auth (Celecoxib 200mg) Social History Tobacco Use Types Packs/Day Years Used Date Smoking Tobacco: Never Smokeless Tobacco: Never Alcohol Use Standard Drinks/Week Comments No 0 (1 standard drink = 0.6 oz pur e alcohol) Comments No Sex and Gender Information Value Date Recorded Sex Assigned at Not on file Legal Sex Female 2:03 AM REGRIND MILL OPERATOR Gender Identity Female 08/26/2020 6:26 AM REGRIND MILL OPERATOR Sexual Orientation Straight 08/26/2020 6: 26 AM REGRIND MILL OPERATOR documented as of this encounter Plan [...] on filedocumented in this encounter Care Teams Cloth Printer Helper Relationship Specialty Start Date End Date Felicitas Samuel MD PCP - General 10/13/16 07/19/20 Rohan Rothman MD [address] [place] [address] PCP - General 07/20/20 05/12/24 Peyman Ortega MD [address] [facility] [address] [place] [address] PCP - General Family Practice 05/13/24 Reanna Polanco RN Registered Nurse 07/07/19 Sera Morley MD [address] [place], [place] [address] Referring Physician Gynecology 08/08/24 documented as of this encounter
--- OUTSIDE RECORDS SUMMARY | 2025-04-01 00:18 | XMS_ITS | Clinical Summary ---
Author Organization [facility] Address [address] [place] [address] Care Team Providers Care Section Crews Activities Clerk Name Role Phone Unavailable Primary Care Provider Unavailabl e Encounters Date Type Department Care Team Description 03/03/2025 External Device Data [facility] ABSTRACTION Provider, Abstract 03/03/2025 External Device Data [facility] ABSTRACTION Provider, Abstract 02/11/2025 External Device Data [facility] ABSTRACTION Provider, Abstract 02/10/2025 External Device Data [facility] ABSTRACTION Provider, Abstract 01/20/2025 External Device Data [facility] ABSTRACTION Provider, Abstract from Last 3 Months Social History Tobacco Use Types Packs/Day Years Used Date Smoking Tobacco: Never Assessed Comments Unknown Sex and Gender Information Value Date Recorded Sex Assigned at Not on file Legal Sex Female 6:44 PM PERCUSSION TUNER Gender Identity Not on file Sexual Orientation [...] (1 of 2) 2010 INFLUENZA VACCINE (#1) 2025 , 05/04/2020, 05/05/2019, Additional history exists BREAST CANCER SCREENING 08/07/2025 08/07/19 25, 07/08/2024, 05/16/2023, Additional history exists DTAP/TDAP/TD VACCINES (2 - T d or Tdap) 04/18/2028 04/18/2018 RSV VACCINE (60+ or ) (1 - 1-dose 75+ series) 2035 Procedures Procedure Name Priority Date/Time Associated Diagnosis Comments MAMMO DIAGNOSTIC UNI LEFT W OR WO CAD Routine 08/07/2024 1:23 PM PERCUSSION TUNER Abnormal mammogram from Last 3 Months or Most Recently Relevant to Health Maintenance Results * (ABNORMAL) MAMMO DIAGNOSTIC UNI LEFT W OR WO CAD (08/07/2024 1:23 PM PERCUSSION TUNER) Anatomical Region Laterality Modality Breast Left Mammography 08/07/2024 1:23 PM PERCUSSION TUNER Narrative 08/07/2024 1:28 PM PERCUSSION TUNER EXAM: MAMMO DIAGNOSTIC UNI LEFT W OR [...] Most Recently Relevant to Health Maintenance Insurance [employer] OPEN ACCESS HMO
--- OUTSIDE RECORDS SUMMARY | 2025-04-01 00:18 | XMS_ITS | Encounter Summary ---
Author Organization [facility] Address [address] [place] [address] Phone Care Team Providers Care Waste Duster Name Role Phone Reanna Polanco RN Unavailable Unavailab Peyman Carvajal MD Primary Care Provider Sera Morley MD Unavailable Encounter Details Date Type Department Care Team (Late st Contact Info) Description 02/25/2025 Results Follow-Up [facility] Medicine Cardiology [address] [facility] [address] 8th [place] [address] [place] [address] Mateusz Upton MD [address] [facility] [address] [place] [address] ECG 12 lead Social History Tobacco Use Types Packs/Day Years Used Date Smoking Tobacco: Former Cigarettes 1 5 0 11/27/1978 - 09/28/1983 Smokeless Tobacco: Never Alcohol Use Standard Drinks/Week Comments No 0 (1 standard drink = 0.6 oz pur e alcohol) denies AUDIT-C Answer Date Recorded Q1: How often do you have a drink containing alcohol? Never 12/23/2024 Q2: How many drinks containi ng alcohol do you have on a typical day when you are drinking? Patient does not drink Q3: How often do you have si x or more drinks on one occasion? 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 Author CCM Chronic Pain Care Plan Chronic Care Management Worsening( 1:10 PM CDT) No Bessy Mancuso RN Note: Problem: Chronic Pain Goals: 1. Minimize further functional decline 2. Maximize quality of life 3. Control pain Strategies: - Activity/exercise program recommendation - Conservative stepwise pain medicine strategy with multi-disciplinary approach - Recommend healthy lifestyle strategies and compensatory methods as needed documented as of this encounter Visit Diagnoses Not on filedocumented in this encounter Care Teams Waste Duster Relationship Specialty Start Date End Date Peyman Ortega MD [address] [facility] [address] [place] [address] PCP - General Family Practice 05/13/24 Reanna Polanco RN Registered Nurse 07/07/19 Sera Morley MD [address] [place] [address] Referring Physician Gynecology 08/08/24 documented as of this encounter
--- OUTSIDE RECORDS SUMMARY | 2025-04-01 00:18 | XMS_ITS | Encounter Summary ---
Author Organization [facility] Healthcare Address [address] [facility] [place] [address] Care Team Providers Care [address] Light Wirer Name Role Phone Felicitas Samuel MD Primary Care Provider + Reanna Polanco RN Unavailable Unavailab Rohan Salvador MD Primary Care Provider Peyman Ortega MD Primary Care Provider Sera Morley MD Unavailable [phone] Encounter Details Date Type Department Care Team (Late st Contact Info) Description 01/15/2020 Telephone [facility] [address] [facility] [address] [place] [address] Nancy Fernandez MD [address] [facility] [id number] [place] [address] Social History Tobacco Use Types Packs/Day Years Used Date Smoking Tobacco: Former Smokeless Tobacco: Never Alcohol Use Standard Drinks/Week Comments No 0 (1 standard drink = 0.6 oz pur e alcohol) Comments No Sex and Gender Information Value Date Recorded Sex Assigned at Not on file 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 Gender Identity Female 08/26/2020 6:26 AM CONTINUITY WRITER Sexual Orientation Straight 08/26/2020 6: 26 AM CONTINUITY WRITER documented as of this encounter Plan of [...] on filedocumented in this encounter Care Teams Street Light Wirer Relationship Specialty Start Date End Date Felicitas Samuel MD PCP - General 10/13/16 07/19/20 Rohan Rothman MD [address] [place] [address] PCP - General 07/20/20 05/12/24 Peyman Ortega MD [address] [facility] [address] [place] [address] PCP - General Family Practice 05/13/24 Reanna Polanco RN Registered Nurse 07/07/19 Sera Morley MD [address] [facility] [address] [place] [address] Referring Physician Gynecology 08/08/24 documented as of this encounter
[2025-04-01 06:14] VITALS: BP 157/96; PULSE 85; RESP 18; TEMP 36.2; O2SAT 98; BMI 24.5
[2025-04-01] MEDS: LACTATED RINGERS 1,000 ML 150 ML IV CONT (06:25)
--- NOTE | 2025-04-01 06:59 | WPDANESEPPF ---
Anes - Initial Pre Proc Eval Procedure: Operation Date: 04/01/25 07:30 Proposed Procedures p Colonoscopy - Reinier Malone MD Date/Time: 04/01/25 06:59 Surgeon: Reinier Malone MD Pre Op Diagnosis: screening malignant neoplasm of colon Patient Data Age: 64 Gender: F Height: 1.73 m Weight: 73.3 kg Last Vital Signs Temp 36.2 C L 04/01/25 06:14 Pulse 85 04/01/25 06:14 Resp 18 04/01/25 06:14 BP 157/96 H 04/01/25 06:14 Pulse Ox 98 04/01/25 06:14 O2 Del Method Room Air 04/01/25 06:14 Allergies Allergy/AdvReac Type Severity Reaction Status Date / Time Sulfa (Sulfonamide Allergy Intermediate Unknown Verified 04/01/25 06:12 Antibiotics) capsaicin AdvReac Severe burning Verified 04/01/25 06:12 sensation DECONGESTANT Allergy Intermediate BLADDER Uncoded 04/01/25 06:12 SPSAMS Home Medications ?Medication ?Instructions ?Recorded ?Confirmed ?Type alpha lipoic acid 550 mg PO DAILY 04/19/20 04/01/25 History ascorbic acid (vitamin C) 1,000 mg 1 g PO DAILY 04/19/20 04/01/25 History tablet (Vitamin C) magnesium citrate 2 cap PO BID 04/19/20 04/01/25 History methocarbamol 500 mg tablet 1,000 mg PO QID 04/19/20 04/01/25 History calcium carbonate (Calcium 600) 600 mg PO BID 04/25/21 04/01/25 History famotidine 10 mg tablet 10 mg PO DAILY 05/15/22 04/01/25 History duloxetine 60 mg capsule,delayed 60 mg PO BID 03/17/24 04/01/25 History release estradiol-norethindrone acet 1 1 tablet PO DAILY 03/17/24 04/01/25 History mg-0.5 mg tablet acetaminophen 650 mg 650 mg PO Q12H PRN pain 05/15/24 03/18/25 History tablet,extended release (Tylenol 8 Hour) meloxicam 15 mg tablet 15 mg PO DAILY 05/15/24 04/01/25 History montelukast 10 mg tablet 10 mg PO DAILY #90 tabs 06/13/24 04/01/25 Rx (Singulair) vitamin B complex (Vitamins B 1 cap PO DAILY 07/14/24 04/01/25 History Complex capsule) hydrocortisone 2.5 % topical 1 applic topical BID 07/22/24 04/01/25 History ointment lurasidone 80 mg tablet 80 mg PO QPM 11/03/24 04/01/25 History estradiol 10 mcg vaginal tablet 10 mcg vaginal HS 11/08/24 04/01/25 History metoprolol succinate 25 mg 25 mg PO DAILY 11/11/24 04/01/25 History tablet,extended release 24 hr mirtazapine 15 mg tablet 15 mg PO DAILY 03/18/25 04/01/25 History oxycodone-acetaminophen 5 mg-325 1 tablet PO BID PRN pain 04/01/25 04/01/25 History mg tablet Patient hx anesthesia problems: none Family hx anesthesia problems: none Results Review: All pre-operative results and documents have been reviewed as part of the pre-operative evaluation. 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 Vaginal delivery x2 Missed x1 Endometriosis Arthritis Anxiety Fibromyalgia Scoliosis Surgical History Surgical History History of D&C (~07/21/24) D&C hysteroscopy with resection of polyp S/P cervical spinal fusion (~08/09/22) C3-6 [place] teeth extracted 1982 History of endometrial ablation History of dilation and curettage 1988 History of laparoscopy early , endometriosis Family History Family History Father Cerebrovascular accident Depression Anxiety Family history of blood dyscrasia Mother Family history of chronic obstructive pulmonary disease Hypertension Anxiety Depression Thyroid disorder Grandparent Family history of cardiovascular disease Acute myocardial infarction Carcinoma of colon Family history of malignant neoplasm of breast in first degree relative Breast cancer Social History Social History Smoking packs per day: 1 Smoking cigarettes per day: 20.0 Years smoked: 2 Smoking pack-years: 2.00 Smoking status: Former smoker Tobacco type: cigarettes Second hand tobacco smoke exposure: No Smoking end date: 07/30/82 Alcohol intake: never Substance use: never Substance use type: does not use Other substance usage details: DURING COLLEGE YRS Do You Feel Safe in your Home?: Yes Lack of Transportation: No Lack of Food: Never True Current Housing: I Have Housing Concerned About Future Housing: No Difficulty Paying Gas/Electric Bills: No Difficulty Paying for Meds: No Currently Unemployed: No Education: Bachelor's Degree Difficulty w/ Childcare or Family Care: No Living arrangements: with family Additional living arrangements comments: Occupation/Education: retired Gender identity (if verbalized by the patient): Female Sexual Orientation (if Verbalized by the Patient): Straight or Heterosexual Spiritual care concerns: No Anes - Eval Final PreProcedure Day of Procedure 04/01/25 06:59 Patient weight: normal Heart: regular rate and rhythm Lungs: clear to auscultation and normal air movement Airway: Mallampati scale class II Neurological: alert and oriented Last oral intake: >/= 8 hours ASA classification: III Emergent: no Anesthetic plan: proceed Anesthesia type and monitoring: general GIVS and standard monitoring Results Review: All pre-operative results and documents have been reviewed as part of the pre-operative evaluation. Informed Consent: The patient's anesthetic plan and its attendant risks and benefits were discussed with the patient/family/POA. Questions were solicited and answers provided to the satisfaction of the patient/family/POA.
--- NOTE | 2025-04-01 07:18 | PM.HPGS ---
History of Present Illness History of Present Illness Consent: Risks, benefits, and alternatives have been discussed and questions answered. Patient agrees to proceed with procedure. 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 Vaginal delivery x2 Missed x1 Endometriosis Arthritis Anxiety Fibromyalgia Scoliosis Surgical History Surgical History History of D&C (~07/21/24) D&C hysteroscopy with resection of polyp S/P cervical spinal fusion (~08/09/22) C3-6 [place] teeth extracted 1982 History of endometrial ablation History of dilation and curettage 1988 History of laparoscopy early , endometriosis Family History Family History Father Cerebrovascular accident Depression Anxiety Family history of blood dyscrasia Mother Family history of chronic obstructive pulmonary disease Hypertension Anxiety Depression Thyroid disorder Grandparent Family history of cardiovascular disease Acute myocardial infarction Carcinoma of colon Family history of malignant neoplasm of breast in first degree relative Breast cancer Social History Social History Smoking packs per day: 1 Smoking cigarettes per day: 20.0 Years smoked: 2 Smoking pack-years: 2.00 Smoking status: Former smoker Tobacco type: cigarettes Second hand tobacco smoke exposure: No Smoking end date: 07/30/82 Alcohol intake: never Substance use: never Substance use type: does not use Other substance usage details: DURING COLLEGE YRS Do You Feel Safe in your Home?: Yes Lack of Transportation: No Lack of Food: Never True Current Housing: I Have Housing Concerned About Future Housing: No Difficulty Paying Gas/Electric Bills: No Difficulty Paying for Meds: No Currently Unemployed: No Education: Bachelor's Degree Difficulty w/ Childcare or Family Care: No Living arrangements: with family Additional living arrangements comments: Occupation/Education: retired Gender identity (if verbalized by the patient): Female Sexual Orientation (if Verbalized by the Patient): Straight or Heterosexual Spiritual care concerns: No Meds Home Medications and Allergies Home Medications ?Medication ?Instructions ?Recorded ?Confirmed ?Type alpha lipoic acid 550 mg PO DAILY 04/19/20 04/01/25 History ascorbic acid (vitamin C) 1,000 mg 1 g PO DAILY 04/19/20 04/01/25 History tablet (Vitamin C) magnesium citrate 2 cap PO BID 04/19/20 04/01/25 History methocarbamol 500 mg tablet 1,000 mg PO QID 04/19/20 04/01/25 History calcium carbonate (Calcium 600) 600 mg PO BID 04/25/21 04/01/25 History famotidine 10 mg tablet 10 mg PO DAILY 05/15/22 04/01/25 History duloxetine 60 mg capsule,delayed 60 mg PO BID 03/17/24 04/01/25 History release estradiol-norethindrone acet 1 1 tablet PO DAILY 03/17/24 04/01/25 History mg-0.5 mg tablet acetaminophen 650 mg 650 mg PO Q12H PRN pain 05/15/24 03/18/25 History tablet,extended release (Tylenol 8 Hour) meloxicam 15 mg tablet 15 mg PO DAILY 05/15/24 04/01/25 History montelukast 10 mg tablet 10 mg PO DAILY #90 tabs 06/13/24 04/01/25 Rx (Singulair) vitamin B complex (Vitamins B 1 cap PO DAILY 07/14/24 04/01/25 History Complex capsule) hydrocortisone 2.5 % topical 1 applic topical BID 07/22/24 04/01/25 History ointment lurasidone 80 mg tablet 80 mg PO QPM 11/03/24 04/01/25 History estradiol 10 mcg vaginal tablet 10 mcg vaginal HS 11/08/24 04/01/25 History metoprolol succinate 25 mg 25 mg PO DAILY 11/11/24 04/01/25 History tablet,extended release 24 hr mirtazapine 15 mg tablet 15 mg PO DAILY 03/18/25 04/01/25 History oxycodone-acetaminophen 5 mg-325 1 tablet PO BID PRN pain 04/01/25 04/01/25 History mg tablet Allergies Allergy/AdvReac Type Severity Reaction Status Date / Time Sulfa (Sulfonamide Allergy Intermediate Unknown Verified 04/01/25 06:12 Antibiotics) capsaicin AdvReac Severe burning Verified 04/01/25 06:12 sensation DECONGESTANT Allergy Intermediate BLADDER Uncoded 04/01/25 06:12 SPSAMS Vital Signs Vital Signs - 24 hr 04/01/25 06:14 Temperature 97.1 F L Pulse Rate 85 Respiratory Rate 18 Blood Pressure 157/96 H Pulse Oximetry 98 Oxygen Delivery Room Air Exam Const: General: comfortable and no acute distress HENMT: Face/Nose/Sinus: Normal nares present Eyes: General: appearance normal, both eyes and all related structures Neck: Neck: no JVD Resp: Auscultation: clear to auscultation bilaterally Cardio: Rate: regular rate Rhythm: regular rhythm GI: Inspection: non-distended GI Palp: Yes Soft to palpation Skin: General skin exam: normal color Neuro: General: gait normal Speech: normal speech Extrem: General: normal to inspection Psych: Mental Status: mental status grossly normal Assessment and Plan Assessment and plan (1) Colon cancer screening: Code(s): Z12.11 - Encounter for screening for malignant neoplasm of colon Status: Acute Assessment and Plan: colonoscopy
[2025-04-01 07:38] VITALS: BP 137/75; PULSE 78; RESP 24; O2SAT 99
[2025-04-01 07:48] VITALS: BP 127/72; PULSE 75; RESP 17; O2SAT 100
[2025-04-01 07:58] VITALS: BP 114/92; PULSE 71; RESP 24; O2SAT 97
== END 2025-04-01 08:02 | disposition home or self-care (01) ==
PROVIDERS: PCP Family Medicine; Referring Provider Family Medicine; Visit Provider Internal Medicine Gastroenterology
PROC: 0DJD8ZZ Inspection of Lower Intestinal Tract, Via Natural or Artificial Opening Endoscopic (ICD-10-PCS; CPT 45378; principal; 2025-04-01 07:30)
DX: Z12.11 Encounter for screening for malignant neoplasm of colon (principal); K57.30 Diverticulosis of large intestine without perforation or abscess without bleeding
CPT/HCPCS: 45378; J2704; J7120

== ENCOUNTER 2025-06-14 16:22 | Inpatient (IN) | payer MEDICARE, SELFPAY ==
[2025-06-14] VITALS (10 sets, daily range): BP systolic 107–118; BP diastolic 61–85; PULSE 72–128; RESP 14–20; TEMP 36.4–36.9; O2SAT 99–100; BMI 23.2
--- NOTE | ~2025-06-14 | XR_ITS ---
EXAMINATION: XR chest 2V, 06/14/2025 17:30 DITCH DIGGER HISTORY: chest pain COMPARISON: No comparisons available. Technique: 2 views obtained. Findings: The lungs are clear, no effusion. No pneumothorax. Heart is normal size. Mediastinal and hilar contours are within normal limits. Bony thorax no acute abnormality. Impression: No acute cardiopulmonary abnormality. Reviewed, dictated and finalized at location P. H DIGGER Impression: No acute cardiopulmonary abnormality.
--- NOTE | 2025-06-14 16:24 | ECG_ITS ---
Test Date: 2025-06-14 16:30:31 Measurements Intervals [place] Rate: 133 P: 0 MT: 0 QRS: 59 QRSD: 157 T: 72 QT: 291 QTc: 433 Interpretive Statements SUPRAVENTRICULAR TACHYCARDIA VERSUS ATRIAL FLUTTER WITH RVR RIGHT BUNDLE BRANCH BLOCK Electronically Signed On 06-15-2025 00:11:44 PHYSICIAN OFFICE ASSISTANT by Yuri Olivares D.O
[2025-06-14 16:41] LABS: Hematocrit 48.0 % (37.0-47.0); Hemoglobin 15.8 g/dL (12.0-15.0); Immature Granulocyte Percent A 0.2 % (0-0.5); Lymphocytes Absolute Auto 3.18 K/mm3 (0.9-3.2); Mean Corpuscular HGB Conc 32.9 g/dl (32-36); Mean Corpuscular Hemoglobin 31.1 pg (26-34); Mean Corpuscular Volume 94.5 fl (80-100); Nucleated Red Blood Cells Absolute Auto 0.000 K/mm3 (0.0-0.012); Nucleated Red Blood Cells Perc 0.0 % (0.0-0.2); Platelet Count Result 306 k/mm3 (150-375); Red Blood Count 5.08 M/mm3 (4.2-5.4); White Blood Count 6.5 K/mm3 (4.5-10.0)
[2025-06-14 16:52] LABS: INR 1.0; Partial Thromboplastin Time 24.9 Seconds (22.3-36.8); Prothrombin Time 13.5 Seconds (11.1-14.7)
[2025-06-14] MEDS: METOPROLOL TARTRATE INJ 5 MG/5 ML VIAL IV PUSH (16:55)
[2025-06-14] MEDS: ASPIRIN 81 MG CHEWABLE TABLET 324 MG PO (16:55)
[2025-06-14 16:57] LABS: Alanine Aminotransferase 21 U/L (6-35); Albumin Level 4.7 g/dL (3.5-5.1); Alkaline Phosphatase 52 U/L (38-126); Anion Gap 11 mmol/L (4-12); Aspartate Amino Transferase 27 U/L (14-36); Bilirubin,Total 0.6 mg/dL (0.2-1.3); Blood Urea Nitrogen 12 mg/dL (7-17); Calcium 9.4 mg/dL (8.4-10.2); Carbon Dioxide 26 mmol/L (22-30); Chloride 102 mmol/L (98-107); Estimated CRCL calculation 46 ml/min; Estimated Glomerular Filt Rate 51; Glucose 129 mg/dL (65-110); Lipase 66 U/L (23-300); Potassium 3.5 mmol/L (3.4-5.0); Sodium 139 mmol/L (137-145); Total Protein 7.7 g/dL (6.3-8.2)
--- NOTE | 2025-06-14 16:57 | ED.ARRPALP ---
HPI - Arrhythmia/Palpitations General Chief Complaint: Arrhythmia/Palpitations Stated Complaint: PALPATATIONS, CHEST PAIN Time Seen by Provider: 06/14/25 16:33 History of Present Illness HPI narrative: This is a 65-year-old female with history of SVT who presents the ED for palpitations. Patient states for the past day and half, she has been having a fluttering sensation in her chest with a chest aching to her superior chest. She has also had shortness of breath. She states that her watch keeps allowing her to this. She took her extra dose of metoprolol with no relief prompting her to come to the ED. no other cardiac history that she is aware of. She is not on any blood thinners. Related Data Home Medications ?Medication ?Instructions ?Recorded ?Confirmed ?Last Taken ?Type alpha lipoic acid 550 mg PO DAILY 04/19/20 06/14/25 03/31/25 History magnesium citrate 2 cap PO Q12H 04/19/20 06/14/25 03/31/25 History methocarbamol 500 mg tablet 1,000 mg PO Q4H PRN muscle spasm 04/19/20 06/14/25 03/31/25 History calcium carbonate (Calcium 600) 1,200 mg PO Q12H 04/25/21 06/14/25 03/31/25 History famotidine 10 mg tablet 10 mg PO HS 05/15/22 06/14/25 03/31/25 History duloxetine 60 mg capsule,delayed 60 mg PO Q12H 03/17/24 06/14/25 03/31/25 History release estradiol-norethindrone acet 1 1 tablet PO HS 03/17/24 06/14/25 03/31/25 History mg-0.5 mg tablet acetaminophen 650 mg 650 mg PO Q12H PRN pain 05/15/24 06/14/25 07/20/24 History tablet,extended release (Tylenol 8 Hour) meloxicam 15 mg tablet 15 mg PO HS 05/15/24 06/14/25 03/31/25 History vitamin B complex (Vitamins B 1 cap PO DAILY 07/14/24 06/14/25 03/31/25 History Complex capsule) hydrocortisone 2.5 % topical 1 applic topical Q12H 07/22/24 06/14/25 03/31/25 History ointment lurasidone 80 mg tablet 80 mg PO QPM 11/03/24 06/14/25 03/31/25 History estradiol 10 mcg vaginal tablet 10 mcg vaginal .twice a week 11/08/24 06/14/25 03/31/25 History metoprolol succinate 25 mg 25 mg PO DAILY 11/11/24 06/14/25 03/31/25 History tablet,extended release 24 hr amitriptyline 50 mg tablet 50 mg PO HS 06/14/25 06/14/25 Unknown History ascorbic acid (vitamin C) 500 mg 500 mg PO DAILY 06/14/25 06/14/25 Unknown History tablet (Vitamin C) hydrocodone 10 mg-acetaminophen 1 tablet PO Q6H PRN pain 06/14/25 06/14/25 Unknown History 325 mg tablet levomefolate 7.5 mg-algal oil 1 cap PO QPM 06/14/25 06/14/25 Unknown History 90.314 mg capsule (L-Methylfolate Forte) montelukast 10 mg tablet 10 mg PO HS 06/14/25 06/14/25 Unknown History (Singulair) Allergies Allergy/AdvReac Type Severity Reaction Status Date / Time Sulfa (Sulfonamide Allergy Intermediate Unknown Verified 06/14/25 19:57 Antibiotics) capsaicin AdvReac Severe burning Verified 06/14/25 19:57 sensation DECONGESTANT Allergy Intermediate BLADDER Uncoded 04/01/25 06:12 SPSAMS Review of Systems Review of Systems: Gen.: Denies fevers or chills Eyes: Denies eye pain or visual change ENT: Denies congestion Respiratory: Denies shortness of breath or cough CV: As per HPI GI: Denies abdominal pain nausea, emesis or diarrhea denies burning, urgency, frequency or hematuria Musculoskeletal: Denies back pain or muscle pain Neuro: Denies numbness, tingling, weakness or focal weakness Skin: Denies rash Except as documented, all other systems reviewed and negative PMFSH Past Medical History Medical History Colon cancer screening Chronic, continuous use of opioids hydrocodone GERD (gastroesophageal reflux disease) SVT (supraventricular tachycardia) Hypertension 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 Vaginal delivery x2 Missed x1 Endometriosis Arthritis Anxiety Fibromyalgia Scoliosis Surgical History Surgical History History of D&C (~07/21/24) D&C hysteroscopy with resection of polyp S/P cervical spinal fusion (~08/09/22) C3-6 [place] teeth extracted 1982 History of endometrial ablation History of dilation and curettage 1988 History of laparoscopy early , endometriosis Family History Family History Father Cerebrovascular accident Depression Anxiety Family history of blood dyscrasia Mother Family history of chronic obstructive pulmonary disease Hypertension Anxiety Depression Thyroid disorder Grandparent Family history of cardiovascular disease Acute myocardial infarction Carcinoma of colon Family history of malignant neoplasm of breast in first degree relative Breast cancer Social History Social History Smoking packs per day: 1 Smoking cigarettes per day: 20.0 Years smoked: 2 Smoking pack-years: 2.00 Smoking status: Former smoker Tobacco type: cigarettes Second hand tobacco smoke exposure: No Smoking end date: 07/30/82 Alcohol intake: former Substance use: never Substance use type: does not use Other substance usage details: DURING COLLEGE YRS Do You Feel Safe in your Home?: Yes Lack of Transportation: No Lack of Food: Never True Current Housing: I Have Housing Concerned About Future Housing: No Difficulty Paying Gas/Electric Bills: No Difficulty Paying for Meds: No Currently Unemployed: No Education: Bachelor's Degree Difficulty w/ Childcare or Family Care: No Living arrangements: with family Additional living arrangements comments: Occupation/Education: retired Gender identity (if verbalized by the patient): Female Sexual Orientation (if Verbalized by the Patient): Straight or Heterosexual Spiritual care concerns: No Exam Narrative: APPEARANCE: No acute distress, nontoxic, resting in bed EYES: EOMI HEENT: Normocephalic, atraumatic, OMM RESPIRATORY: No respiratory distress Clear to auscultation bilaterally with no rhonchi wheezing or rales. CARDIOVASCULAR: Tachycardic without murmurs rubs or gallops. ABDOMINAL: Soft, nontender, nondistended, no rebound or guarding MUSCULOSKELETAl: Moves all extremities. No clubbing, cyanosis or edema. NEURO: Awake and alert. Following commands, speech normal, no focal deficits SKIN:: Warm, dry. No rashes lesions or abrasions PSYCHIATRIC: Normal affect/mood, Course Vital Signs Vital signs: Vital Signs Temperature 97.6 F 06/14/25 16:26 Pulse Rate 124 H 06/14/25 16:26 Respiratory Rate 17 06/14/25 16:26 Blood Pressure 116/61 06/14/25 16:26 Pulse Oximetry 99 06/14/25 16:26 Oxygen Delivery Room Air 06/14/25 16:26 Temperature 98.4 F 06/14/25 19:38 Pulse Rate 74 06/14/25 19:38 Respiratory Rate 16 06/14/25 19:38 Blood Pressure 118/65 06/14/25 19:38 Pulse Oximetry 100 06/14/25 19:38 Oxygen Delivery Room Air 06/14/25 16:32 MDM - Arrhythmia/Palpitations MDM Narrative Medical decision making narrative: 65-year-old female Presenting for shortness of breath, chest discomfort, palpitations. On initial evaluation patient was in no acute distress, afebrile, hemodynamic stable. Tachycardic to the 120s. Differentials include but are not limited to: ACS, PE, PNA, bronchitis, costochondritis, pleurisy, viral syndrome, GERD, arrhythmia, AFib Notable exam findings: Tachycardic to the 120s in a possibly irregularly irregular rhythm, heart and lungs otherwise clear. I personally reviewed the patient's lab result. Notable lab findings: CBC and CMP were without significant abnormalities. Initial troponin negative. Repeat troponin 0.025. I personally reviewed the patient's images and interpret as follows: Chest x-ray: Normal cardiac silhouette, no consolidations, no pleural effusions, no pulmonary vascular congestion I personally reviewed the patient's EKGs: 06/14/2025 at 4:30 p.m.: AFib with RVR rate of 133, right bundle-branch block, ST depressions in in ferrous septal leads with elevations in AVR and V1 and V2. Repeat EK06/14/2025 at 6:17 p.m.: Normal sinus rhythm rate of 75, normal axis, normal intervals, nonspecific T change, no ST changes After initial EKG was obtained, did review prior EKGs and ST changes were new. I did call on-call Interventional Cardiology, Dr. Olivares, did not believe that this met STEMI criteria at this time, did recommend starting heparin drip and trying rate control with IV metoprolol 5 mg. On re-evaluation after metoprolol, patient did convert to a normal sinus rhythm and did have improvement of her symptoms. Patient will require admission for possibly new onset AFib and further evaluation by Cardiology. Case was discussed with hospitalist who will admit the patient. Medical Records Attestation: I reviewed the patient's medical records. Lab Data Attestation: I reviewed the patient's lab results. 06/14/25 16:34 06/14/25 16:34 Labs: Lab Results 06/14/25 Range/Units 16:34 WBC 6.5 (4.5-10.0) K/mm3 RBC 5.08 (4.2-5.4) M/mm3 Hgb 15.8 H (12.0-15.0) g/dL Hct 48.0 H (37.0-47.0) % MCV 94.5 (80-100) fl MCH 31.1 (26-34) pg MCHC 32.9 (32-36) g/dl RDW 12.1 (11.5-14.5) % Plt Count 306 (150-375) k/mm3 MPV 10.6 H (7.4-10.4) fl Immature Gran % (Auto) 0.2 (0-0.5) % Neut % (Auto) 36.0 L (45.5-73.1) % Lymph % (Auto) 48.6 H (18.3-44.2) % [place] % (Auto) 13.0 H (2.6-8.5) % Eos % (Auto) 1.4 (0-4.4) % Baso % (Auto) 0.8 (0.2-1.2) % Lymph # (Auto) 3.18 (0.9-3.2) K/mm3 [place] # (Auto) 0.9 H (0.1-0.6) K/mm3 Eos # (Auto) 0.1 (0-0.3) K/mm3 Baso # (Auto) 0.1 (0.0-0.1) K/mm3 Abs Immat Gran (auto) 0.01 (0.00-0.031) K/mm3 Absolute Neuts (auto) 2.4 (1.3-6.7) K/mm3 Absolute Nucleated RBC 0.000 (0.0-0.012) K/mm3 Nucleated RBC % 0.0 (0.0-0.2) % PT 13.5 (11.1-14.7) Seconds INR 1.0 APTT 24.9 (22.3-36.8) Seconds Sodium 139 (137-145) mmol/L Potassium 3.5 (3.4-5.0) mmol/L Chloride 102 (98-107) mmol/L Carbon Dioxide 26 (22-30) mmol/L Anion Gap 11 (4-12) mmol/L BUN 12 D (7-17) mg/dL Creatinine 1.08 H (0.7-1.0) mg/dL Estim Creat Clear Calc 46 ml/min Estimated GFR 51 L (59 - ) Glucose 129 H (65-110) mg/dL Calcium 9.4 (8.4-10.2) mg/dL Total Bilirubin 0.6 (0.2-1.3) mg/dL AST 27 (14-36) U/L ALT 21 (6-35) U/L Alkaline Phosphatase 52 (38-126) U/L Troponin I < 0.012 (0.000-0.034) ng/mL Total Protein 7.7 (6.3-8.2) g/dL Albumin 4.7 (3.5-5.1) g/dL Lipase 66 (23-300) U/L Imaging Data Attestation: I personally reviewed and interpreted this imaging study as follows: Radiologist's impression: Impressions Chest X-Ray 06/14/25 17:53 Impression: No acute cardiopulmonary abnormality. Discharge Plan Discharge Clinical Impression: A-fib Qualifiers: Atrial fibrillation type: unspecified Qualified Code(s): I48.91 - Unspecified atrial fibrillation Patient Disposition: Still a Patient Condition: Stable
[2025-06-14] MEDS: SODIUM CHLORIDE 0.9% IV 1,000 ML 999 ML IV CONT (17:04)
[2025-06-14] MEDS: HEPARIN SOD/D5W 100 UNITS/ML 25,000 UNITS/250 ML BAG 9 UNITS IV CONT (17:05)
[2025-06-14 17:07] LABS: Troponin I < 0.012 ng/mL (0.000-0.034)
--- NOTE | 2025-06-14 17:23 | ECG_ITS ---
Test Date: 2025-06-14 18:17:57 Measurements Intervals [place] Rate: 75 P: 41 KS: 174 QRS: 34 QRSD: 89 T: 42 QT: 385 QTc: 432 Interpretive Statements SINUS RHYTHM INDETERMINATE AXIS LOW QRS VOLTAGE IN PRECORDIAL LEADS POSSIBLE RIGHT VENTRICULAR CONDUCTION DELAY Electronically Signed On 06-15-2025 00:12:39 [employer] by Yuri Olivares D.O
[2025-06-14] MEDS: ONDANSETRON INJ 4 MG/2 ML VIAL IV PUSH (18:13)
--- NOTE | 2025-06-14 18:55 | WPCEDHO ---
ED Hand Off Checklist All vitals saved:y IV Site documented:y All med administrations documented:y Triage Note Triage Note Pt to ed ambulatory co chest 06/14/25 16:26 palpitations, fast burkett beat, weak, SOB. Pt is on Metoprolol and has been taking it as prescribe. Pt said she just does not feels right Allergies Sulfa (Sulfonamide Antibiotics) Allergy (Intermediate, Verified 06/14/25 16:34) Unknown capsaicin Adverse Reaction (Severe, Verified 06/14/25 16:34) burning sensation DECONGESTANT Allergy (Intermediate, Uncoded 04/01/25 06:12) BLADDER SPSAMS Family History (Last Reviewed 06/14/25 @ 16:59 by Mika Ding DO) Father Cerebrovascular accident Depression Anxiety Family history of blood dyscrasia Mother Family history of chronic obstructive pulmonary disease Hypertension Anxiety Depression Thyroid disorder Grandparent Family history of cardiovascular disease Acute myocardial infarction Carcinoma of colon Family history of malignant neoplasm of breast in first degree relative Breast cancer Active Medications including assessments/comments Heparin Sodium/Dextrose (Heparin Sodium/D5w 100 Units/Ml) 25,000 units in 250 mls @ 9 mls/hr IV CONT .Q24H SARAHI; Protocol Last Admin: 06/14/25 17:05 Dose: 900 units/hr, 9 mls/hr Documented By: SJ Co-signed By: ALISHA Infusion/Titration Document 06/14/25 17:05 AZG (Rec: 06/14/25 17:05 AZG [id number]) Co-signed By Libra Orantes RN Intake IV Site Peripheral Access Left Antecubital Container Volume 250 Waste Amount 0 Dosing Dose Rate 900 Infusion Rate 9 Increase/Decrease Started Elapsed Time Elapsed Time ( 0m minutes) Heparin Infusion Assessment Document 06/14/25 17:05 AZG (Rec: 06/14/25 17:05 AZG [id number]) Co-signed By Libra Orantes RN Heparin Infusion Assessment Heparin Infusion Initiated Action Administered/Completed Medications Discontinued Medications Aspirin (Aspirin 81 Mg Chewable Tablet) 324 mg PO ONCE STA Stop: 06/14/25 16:25 Last Admin: 06/14/25 16:55 Dose: 324 mg Documented By: SJ Sodium Chloride (Normal Saline Iv) 1,000 mls @ 999 mls/hr IV CONT .Q1H1M STA Stop: 06/14/25 17:58 Last Infusion: 06/14/25 18:45 Dose: Infused Documented By: Admin: 06/14/25 17:04 Dose: 999 mls/hr Documented By: SJ Metoprolol Tartrate (Metoprolol Tartrate Inj 5 Mg/5 Ml Vial) 5 mg IV PUSH ONCE STA Stop: 06/14/25 16:36 Last Admin: 06/14/25 16:55 Dose: 5 mg Documented By: SJ Miscellaneous Information (Pharmacist Communication Order) 1 each XX ONCE ONE Stop: 06/14/25 16:52 Last Admin: 06/14/25 17:52 Dose: Not Given Documented By: SJ Non-Admin Reason: Order Discontinued Ondansetron HCl (Ondansetron Inj 4 Mg/2 Ml Vial) 4 mg IV PUSH ONCE STA Stop: 06/14/25 17:44 Last Admin: 06/14/25 18:13 Dose: 4 mg Documented By: SJ Interventions/Assessments IV / Saline Lock, Insert Start: 06/14/25 16:24 Freq: STAT Status: Active Protocol: Document 06/14/25 17:08 AZG (Rec: 06/14/25 17:09 AZG [id number]) IV Assessment Peripheral Access Right Wrist IV Catheter Access Initiated IV Insertion Date 06/14/25 IV Insertion Time 17:08 Catheter Gauge 20 IV Insertion 1 Attempts Ultrasound Used for No Placement IV Site Assessment WNL IV Care and WNL Maintenance PA: Cardiovascular Assessment Start: 06/14/25 16:24 Freq: Status: Active Protocol: Document 06/14/25 16:32 AZG (Rec: 06/14/25 16:33 AZG [id number]) Chest Pain Assessment Chest Pain Intensity 0 Description and Dizziness,Lightheadedness,Palpitations Symptoms Chest Pain Duration > 6 Hours Precipitating None Factors Jugular Vein None Distention Cardiovascular Assessment Cardiovascular Dizziness,Palpitations Symptoms Skin Description Normal Color Heart Sounds Normal Jugular Vein None Distention PA: Respiratory Assessment Start: 06/14/25 16:24 Freq: Status: Active Protocol: Document 06/14/25 16:32 AZG (Rec: 06/14/25 16:33 AZG [id number]) Respiratory Assessment Symptoms Shortness of Breath With Exertion Effort Normal Pattern Regular Depth Normal Chest Expansion Symmetrical Throughout Phase Inspiratory & Expiratory Lung Sounds Clear Cough Description None Sputum Amount None Oxygen Delivery Oxygen Delivery Room Air Pulse Oximetry (90- 100 100 %) Last Vital Signs Temperature 97.6 F 06/14/25 16:26 Pulse Rate 74 06/14/25 18:54 Respiratory Rate 14 06/14/25 18:54 Pulse Oximetry 100 06/14/25 18:54 Blood Pressure 112/71 06/14/25 18:54 Blood Pressure Mean 84 06/14/25 18:54 Blood Pressure Position Sitting 06/14/25 18:54 Oxygen Delivery Room Air 06/14/25 16:32 Weight 71.9 kg 06/14/25 16:26 Last Result - Abnormals Only Hgb 15.8 g/dL (12.0-15.0) H 06/14/25 16:34 Hct 48.0 % (37.0-47.0) H 06/14/25 16:34 MPV 10.6 fl (7.4-10.4) H 06/14/25 16:34 Neut % (Auto) 36.0 % (45.5-73.1) L 06/14/25 16:34 Lymph % (Auto) 48.6 % (18.3-44.2) H 06/14/25 16:34 [place] % (Auto) 13.0 % (2.6-8.5) H 06/14/25 16:34 [place] # (Auto) 0.9 K/mm3 (0.1-0.6) H 06/14/25 16:34 Creatinine 1.08 mg/dL (0.7-1.0) H 06/14/25 16:34 Estimated GFR 51 (59-) L 06/14/25 16:34 Glucose 129 mg/dL (65-110) H 06/14/25 16:34 Most Recent Suicide Severity Rating Suicide Severity Rating NO RISK INDICATED 06/14/25 16:26
--- NOTE | 2025-06-14 19:30 | ADMGEN ---
This patient, Annette Santiago, was admitted to IMU Room 204-01. Patient/family oriented to hospital policies and general routines including ID bracelet, bed and alarms, visiting hours, pain management, procedures, bathroom and other care routines, personal items, smoking policy, room service/diet, and visiting hours. Information on how to activate the Rapid Response Team has been discussed. Patient/Family are encouraged to report perceived risks to care and to ask questions if they do not understand what they are told or what they should do.
[2025-06-14 20:29] LABS: Troponin I 0.025 ng/mL (0.000-0.034)
--- NOTE | 2025-06-14 20:43 | PM.IMHP ---
H&P: HPI History of Present Illness Date/Time: 06/14/25 20:43 Chief Complaint: Palpitations Narrative: 65-year-old female presenting to [facility] on 06/14/2025 complaining of palpitations. PMH SVT on metoprolol, GERD, hypertension, fibromyalgia, depression and anxiety, scoliosis with chronic low back pain with chronic opioid use status post cervical fusion. Saw Dr. Hall cardiology, now switched to [place] where her specialists are. For a few days now she has had palpitations, weakness, dizziness. She has not been eating due to feeling unwell, feels dehydrated. Smart watch revealed heart rate in the 130s, she took an extra dose of her metoprolol, did not improve. Seeking further evaluation. Also complains of nausea which could be associated with her oxycodone, upgraded from [place] in the past few weeks due to uncontrolled back pain. Initial EKG showing sinus tachycardia with ST depressions in lateral inferior leads. Received aspirin 324 mg p.o. x1, metoprolol 5 mg IV x1, 1 L normal saline bolus, Zofran 4 mg IV x1. Repeat EKG demonstrating sinus rhythm with improvement in ST changes. WBC 6500, potassium 3.5, serum creatinine 1.08, troponin 0.012, 0.025. Two view chest x-ray no acute findings. Cardiology consulted from the ER. Patient placed on heparin GTT. 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 Vaginal delivery x2 Missed x1 Endometriosis Arthritis Anxiety Fibromyalgia Scoliosis Surgical History Surgical History History of D&C (~07/21/24) D&C hysteroscopy with resection of polyp S/P cervical spinal fusion (~08/09/22) C3-6 [place] teeth extracted 1982 History of endometrial ablation History of dilation and curettage 1988 History of laparoscopy early , endometriosis Family History Family History Father Cerebrovascular accident Depression Anxiety Family history of blood dyscrasia Mother Family history of chronic obstructive pulmonary disease Hypertension Anxiety Depression Thyroid disorder Grandparent Family history of cardiovascular disease Acute myocardial infarction Carcinoma of colon Family history of malignant neoplasm of breast in first degree relative Breast cancer Social History Social History Smoking packs per day: 1 Smoking cigarettes per day: 20.0 Years smoked: 2 Smoking pack-years: 2.00 Smoking status: Former smoker Tobacco type: cigarettes Second hand tobacco smoke exposure: No Smoking end date: 07/30/82 Alcohol intake: former Substance use: never Substance use type: does not use Other substance usage details: DURING COLLEGE YRS Do You Feel Safe in your Home?: Yes Lack of Transportation: No Lack of Food: Never True Current Housing: I Have Housing Concerned About Future Housing: No Difficulty Paying Gas/Electric Bills: No Difficulty Paying for Meds: No Currently Unemployed: No Education: Bachelor's Degree Difficulty w/ Childcare or Family Care: No Living arrangements: with family Additional living arrangements comments: Occupation/Education: retired Gender identity (if verbalized by the patient): Female Sexual Orientation (if Verbalized by the Patient): Straight or Heterosexual Spiritual care concerns: No Meds Home Medications and Allergies Home Medications ?Medication ?Instructions ?Recorded ?Confirmed ?Type alpha lipoic acid 550 mg PO DAILY 04/19/20 06/14/25 History magnesium citrate 2 cap PO Q12H 04/19/20 06/14/25 History methocarbamol 500 mg tablet 1,000 mg PO Q4H PRN muscle spasm 04/19/20 06/14/25 History calcium carbonate (Calcium 600) 1,200 mg PO Q12H 04/25/21 06/14/25 History famotidine 10 mg tablet 10 mg PO HS 05/15/22 06/14/25 History duloxetine 60 mg capsule,delayed 60 mg PO Q12H 03/17/24 06/14/25 History release estradiol-norethindrone acet 1 1 tablet PO HS 03/17/24 06/14/25 History mg-0.5 mg tablet acetaminophen 650 mg 650 mg PO Q12H PRN pain 05/15/24 06/14/25 History tablet,extended release (Tylenol 8 Hour) meloxicam 15 mg tablet 15 mg PO HS 05/15/24 06/14/25 History vitamin B complex (Vitamins B 1 cap PO DAILY 07/14/24 06/14/25 History Complex capsule) hydrocortisone 2.5 % topical 1 applic topical Q12H 07/22/24 06/14/25 History ointment lurasidone 80 mg tablet 80 mg PO QPM 11/03/24 06/14/25 History estradiol 10 mcg vaginal tablet 10 mcg vaginal .twice a week 11/08/24 06/14/25 History metoprolol succinate 25 mg 25 mg PO DAILY 11/11/24 06/14/25 History tablet,extended release 24 hr amitriptyline 50 mg tablet 50 mg PO HS 06/14/25 06/14/25 History ascorbic acid (vitamin C) 500 mg 500 mg PO DAILY 06/14/25 06/14/25 History tablet (Vitamin C) hydrocodone 10 mg-acetaminophen 1 tablet PO Q6H PRN pain 06/14/25 06/14/25 History 325 mg tablet levomefolate 7.5 mg-algal oil 1 cap PO QPM 06/14/25 06/14/25 History 90.314 mg capsule (L-Methylfolate Forte) montelukast 10 mg tablet 10 mg PO HS 06/14/25 06/14/25 History (Singulair) Allergies Allergy/AdvReac Type Severity Reaction Status Date / Time Sulfa (Sulfonamide Allergy Intermediate Unknown Verified 06/14/25 19:57 Antibiotics) capsaicin AdvReac Severe burning Verified 06/14/25 19:57 sensation DECONGESTANT Allergy Intermediate BLADDER Uncoded 04/01/25 06:12 SPSAMS Vital Signs Vital Signs - 24 hr 06/14/25 16:26 06/14/25 16:32 06/14/25 16:55 Temperature 97.6 F Pulse Rate 124 H 128 H Respiratory Rate 17 Blood Pressure 116/61 Pulse Oximetry 99 100 Oxygen Delivery Room Air Room Air 06/14/25 17:08 06/14/25 18:18 06/14/25 18:54 Temperature Pulse Rate 80 76 74 Respiratory Rate 20 16 14 Blood Pressure 113/85 107/69 112/71 Pulse Oximetry 100 100 100 Oxygen Delivery 06/14/25 19:38 Temperature 98.4 F Pulse Rate 74 Respiratory Rate 16 Blood Pressure 118/65 Pulse Oximetry 100 Oxygen Delivery Exam Const: General: comfortable and no acute distress Other: A&O x4 HENMT: Mouth: Yes dry mucous membranes Eyes: Pupils: Equal, round and reactive pupils present Neck: Neck: supple Resp: Effort & Inspection: normal respiratory effort Auscultation: clear to auscultation bilaterally Cardio: Rate: regular rate Rhythm: regular rhythm Heart sounds: no murmurs GI: Inspection: non-distended GI Palp: Yes Soft to palpation and Yes Tenderness to palpation present (GI) : General: Yes bladder normal to palpation Neuro: Motor exam (neuro): 5/5 motor strength present throughout Extrem: General: no edema H&P: Results Labs Labs: Short CBC 06/14/25 Range/Units 16:34 WBC 6.5 (4.5-10.0) K/mm3 Hgb 15.8 H (12.0-15.0) g/dL Hct 48.0 H (37.0-47.0) % Plt Count 306 (150-375) k/mm3 BMP 06/14/25 16:34 Sodium 139 Potassium 3.5 Chloride 102 Carbon Dioxide 26 BUN 12 D Creatinine 1.08 H Glucose 129 H Calcium 9.4 Cardiac Enzymes 06/14/25 06/14/25 Range/Units 16:34 19:59 Troponin I < 0.012 0.025 D (0.000-0.034) ng/mL Liver Function 06/14/25 Range/Units 16:34 Total Bilirubin 0.6 (0.2-1.3) mg/dL AST 27 (14-36) U/L ALT 21 (6-35) U/L Alkaline Phosphatase 52 (38-126) U/L Albumin 4.7 (3.5-5.1) g/dL Assessment and Plan Assessment and plan (1) Scoliosis: Qualifiers: Scoliosis type: unspecified scoliosis Spinal region: unspecified Qualified Code(s): M41.9 - Scoliosis, unspecified Code(s): M41.9 - Scoliosis, unspecified Status: Chronic (2) Fibromyalgia: Code(s): M79.7 - Fibromyalgia Status: Chronic (3) SVT (supraventricular tachycardia): Code(s): I47.1 - Supraventricular tachycardia Status: Acute (4) Heart palpitations: Code(s): R00.2 - Palpitations Status: Acute Plan 65-year-old female presenting to [facility] on 06/14/2025 complaining of palpitations. PMH SVT on metoprolol, GERD, hypertension, fibromyalgia, depression and anxiety, scoliosis with chronic low back pain with chronic opioid use status post cervical fusion. Saw Dr. Hall cardiology, now switched to [place] [facility] where her specialists are. For a few days now she has had palpitations, weakness, dizziness. She has not been eating due to feeling unwell, feels dehydrated. Smart watch revealed heart rate in the 130s, she took an extra dose of her metoprolol, did not improve. Had transient chest discomfort during these times. Seeking further evaluation. Also complains of nausea which could be associated with her oxycodone, upgraded from [place] in the past few weeks due to uncontrolled back pain. Initial EKG showing sinus tachycardia with ST depressions in lateral inferior leads. Received aspirin 324 mg p.o. x1, metoprolol 5 mg IV x1, 1 L normal saline bolus, Zofran 4 mg IV x1. Repeat EKG demonstrating sinus rhythm with improvement in ST changes. WBC 6500, potassium 3.5, serum creatinine 1.08, troponin 0.012, 0.025. Two view chest x-ray no acute findings. Cardiology consulted from the ER. Patient placed on heparin GTT. ----- Heart rate now back in sinus rhythm. Takes metoprolol 25 mg XL at home. Start metoprolol 25 mg p.o. b.i.d.. Potassium 3.5, replaced. Check magnesium. NPO midnight, continue heparin GTT, cardiology consultation. Troponin in vincent zone, 6 hour repeat pending. She stills feels dehydrated, can contribute to tachycardia. Start lactated Ringer's at 100 cc/hour. Hold WORLD LANGUAGE TEACHER amitriptyline while receiving p.o. KCl. Continue WORLD LANGUAGE TEACHER duloxetine. Continue oxycodone, patient has some nausea, Zofran did not work. Try Reglan. ----- Admit to IMU. NPO midnight. Heparin GTT Ambulate with assistance Full code. Continue WORLD LANGUAGE TEACHER Pepcid Hospitalist MIPS Advance Care Plan I have confirmed that the patient's Advanced Care Plan is present, code status is documented, or surrogate decision maker is listed in patient medical record.: Yes Medication Reconciliation I have utilized all available resources to obtain, update and review the patients current medications (includes all prescriptions, OTC, herbals, cannabis, and nutritional supplements).: Yes
[2025-06-14 21:08] LABS: Magnesium 2.2 mg/dL (1.6-2.3)
[2025-06-14] MEDS: LACTATED RINGERS 1,000 ML 100 ML IV CONT (21:21)
[2025-06-14] MEDS: oxyCODONE HCL (*CRX) 5 MG TAB IR PO (21:26)
[2025-06-14] MEDS: FAMOTIDINE 10 MG TABLET PO (21:28)
[2025-06-14] MEDS: METOPROLOL TARTRATE 25 MG TABLET PO (21:28)
[2025-06-14] MEDS: MONTELUKAST SODIUM 10 MG TABLET PO (21:28)
[2025-06-14] MEDS: DULoxetine HCL 60 MG CAPSULE.DR PO (21:31)
[2025-06-14] MEDS: AMITRIPTYLINE HCL 25 MG TABLET 50 MG PO (21:31)
[2025-06-14] MEDS: CALCIUM CARBONATE (OSCAL) 500 MG TABLET 1000 MG PO (21:32)
[2025-06-14] MEDS: POTASSIUM CHLORIDE 20 MEQ ER TABLET 40 MEQ PO (21:52)
[2025-06-14 23:24] LABS: INR 1.0; Prothrombin Time 13.4 Seconds (11.1-14.7)
[2025-06-14 23:31] LABS: Troponin I 0.027 ng/mL (0.000-0.034)
[2025-06-14 23:58] LABS: Partial Thromboplastin Time 25.4 Seconds (22.3-36.8)
[2025-06-15] VITALS (12 sets, daily range): BP systolic 126–145; BP diastolic 69–80; PULSE 58–72; RESP 13–16; TEMP 36.8–36.9; O2SAT 97–99
[2025-06-15 06:32] LABS: Hematocrit 39.4 % (37.0-47.0); Hemoglobin 13.3 g/dL (12.0-15.0); Mean Corpuscular HGB Conc 33.8 g/dl (32-36); Mean Corpuscular Hemoglobin 31.5 pg (26-34); Mean Corpuscular Volume 93.4 fl (80-100); Platelet Count Result 223 k/mm3 (150-375); Red Blood Count 4.22 M/mm3 (4.2-5.4); White Blood Count 4.1 K/mm3 (4.5-10.0)
[2025-06-15 06:51] LABS: Alanine Aminotransferase 18 U/L (6-35); Albumin Level 3.7 g/dL (3.5-5.1); Alkaline Phosphatase 52 U/L (38-126); Anion Gap 6 mmol/L (4-12); Aspartate Amino Transferase 26 U/L (14-36); Bilirubin,Total 0.7 mg/dL (0.2-1.3); Blood Urea Nitrogen 8 mg/dL (7-17); Calcium 8.9 mg/dL (8.4-10.2); Carbon Dioxide 23 mmol/L (22-30); Chloride 107 mmol/L (98-107); Estimated CRCL calculation 80 ml/min; Estimated Glomerular Filt Rate > 60; Glucose 95 mg/dL (65-110); Magnesium 1.9 mg/dL (1.6-2.3); Potassium 4.1 mmol/L (3.4-5.0); Sodium 136 mmol/L (137-145); Total Protein 6.2 g/dL (6.3-8.2)
[2025-06-15] MEDS: oxyCODONE HCL (*CRX) 5 MG TAB IR PO ×2 (07:00→11:14)
[2025-06-15 07:13] LABS: Partial Thromboplastin Time 179.0 Seconds (22.3-36.8)
[2025-06-15] MEDS: LACTATED RINGERS 1,000 ML 100 ML IV CONT (08:28)
--- NOTE | 2025-06-15 08:41 | PM.IMPN ---
Progress Note: A&P Assessment and Plan (1) Scoliosis: Qualifiers: Scoliosis type: unspecified scoliosis Spinal region: unspecified Qualified Code(s): M41.9 - Scoliosis, unspecified Code(s): M41.9 - Scoliosis, unspecified Status: Chronic (2) Fibromyalgia: Code(s): M79.7 - Fibromyalgia Status: Chronic (3) SVT (supraventricular tachycardia): Code(s): I47.1 - Supraventricular tachycardia Status: Acute (4) Heart palpitations: Code(s): R00.2 - Palpitations Status: Acute Plan 65-year-old female presenting to [facility] on 06/14/2025 complaining of palpitations. PMH SVT on metoprolol, GERD, hypertension, fibromyalgia, depression and anxiety, scoliosis with chronic low back pain with chronic opioid use status post cervical fusion. Saw Dr. Hall cardiology, now switched to [place] [facility] where her specialists are. For a few days now she has had palpitations, weakness, dizziness. She has not been eating due to feeling unwell, feels dehydrated. Smart watch revealed heart rate in the 130s, she took an extra dose of her metoprolol, did not improve. Had transient chest discomfort during these times. Seeking further evaluation. Also complains of nausea which could be associated with her oxycodone, upgraded from [place] in the past few weeks due to uncontrolled back pain. Initial EKG showing sinus tachycardia with ST depressions in lateral inferior leads. Received aspirin 324 mg p.o. x1, metoprolol 5 mg IV x1, 1 L normal saline bolus, Zofran 4 mg IV x1. Repeat EKG demonstrating sinus rhythm with improvement in ST changes. WBC 6500, potassium 3.5, serum creatinine 1.08, troponin 0.012, 0.025. Two view chest x-ray no acute findings. Cardiology consulted from the ER. Patient placed on heparin GTT. ----- Heart rate now back in sinus rhythm. Takes metoprolol 25 mg XL at home. Start metoprolol 25 mg p.o. b.i.d.. Potassium 3.5, replaced. Check magnesium. NPO midnight, continue heparin GTT, cardiology consultation. Troponin in vincent zone, 6 hour repeat pending. She stills feels dehydrated, can contribute to tachycardia. Start lactated Ringer's at 100 cc/hour. Hold WAREHOUSE LOGISTICS MANAGER amitriptyline while receiving p.o. KCl. Continue WAREHOUSE LOGISTICS MANAGER duloxetine. Continue oxycodone, patient has some nausea, Zofran did not work. Try Reglan. ----- Admit to IMU. NPO midnight. Heparin GTT Ambulate with assistance Full code. Continue WAREHOUSE LOGISTICS MANAGER Pepcid Subjective Date/time seen: 06/15/25 08:41 Review of Systems Review of Systems: All systems reviewed & are unremarkable except as noted in HPI and below (Subjective) Exam Const: General: comfortable and no acute distress Other: A&O x4 HENMT: Mouth: Yes dry mucous membranes Eyes: Pupils: Equal, round and reactive pupils present Neck: Neck: supple Resp: Effort & Inspection: normal respiratory effort Auscultation: clear to auscultation bilaterally Cardio: Rate: regular rate Rhythm: regular rhythm Heart sounds: no murmurs GI: Inspection: non-distended : General: Yes bladder normal to palpation Bimanual exam- vagina & uterus: bladder normal to palpation Neuro: Cranial nerves: Yes Equal, round and reactive pupils present Motor exam (neuro): 5/5 motor strength present throughout Extrem: General: no edema Objective Data Vital Signs Vital Signs: Vital Signs - 24 hr 06/14/25 16:26 06/14/25 16:32 06/14/25 16:55 Temperature 97.6 F Pulse Rate 124 H 128 H Respiratory Rate 17 Blood Pressure 116/61 Pulse Oximetry 99 100 Oxygen Delivery Room Air Room Air 06/14/25 17:08 06/14/25 18:18 06/14/25 18:54 Temperature Pulse Rate 80 76 74 Respiratory Rate 20 16 14 Blood Pressure 113/85 107/69 112/71 Pulse Oximetry 100 100 100 Oxygen Delivery 06/14/25 19:38 06/14/25 20:00 06/14/25 20:00 Temperature 98.4 F Pulse Rate 74 72 Respiratory Rate 16 Blood Pressure 118/65 Pulse Oximetry 100 Oxygen Delivery Room Air 06/14/25 21:28 06/14/25 22:00 06/15/25 00:00 Temperature 98.5 F Pulse Rate 78 74 65 Respiratory Rate 13 Blood Pressure 126/71 Pulse Oximetry 97 Oxygen Delivery 06/15/25 00:00 06/15/25 00:00 06/15/25 02:00 Temperature Pulse Rate 66 65 Respiratory Rate Blood Pressure Pulse Oximetry Oxygen Delivery Room Air 06/15/25 03:44 06/15/25 04:00 06/15/25 04:00 Temperature 98.5 F Pulse Rate 67 64 Respiratory Rate 16 Blood Pressure 136/73 Pulse Oximetry 97 Oxygen Delivery Room Air 06/15/25 06:00 06/15/25 07:56 Temperature 98.4 F Pulse Rate 71 67 Respiratory Rate 14 Blood Pressure 130/80 Pulse Oximetry 99 Oxygen Delivery Intake/Output Intake/Output: Intake & Output 06/12/25 06/13/25 06/14/25 06/15/25 23:59 23:59 23:59 23:59 Intake Total 1000 2271.9 Output Total 640 Balance 1000 1631.9 Meds/Results Medications: Active Medications Generic Name Dose Route Start Last Admin Trade Name Freq PRN Reason Stop Dose Admin Acetaminophen 650 mg 06/14/25 20:51 Acetaminophen 325 Mg Tablet PO Q6H PRN Pain 1-3 Amitriptyline HCl 50 mg 06/14/25 21:00 06/14/25 21:31 Amitriptyline Hcl 25 Mg Tablet PO 50 mg HS SARAHI Administration Ascorbic Acid 500 mg 06/15/25 09:00 Ascorbic Acid 500 Mg Tablet PO DAILY SARAHI Calcium Carbonate 1,000 mg 06/14/25 21:00 06/14/25 21:32 Calcium Carbonate (Oscal) 500 Mg Tablet PO 1,000 mg Q12H SARAHI Administration Duloxetine HCl 60 mg 06/14/25 21:00 06/14/25 21:31 Duloxetine Hcl 60 Mg Capsule.Dr PO 60 mg Q12HR SARAHI Administration Famotidine 10 mg 06/14/25 21:00 06/14/25 21:28 Famotidine 10 Mg Tablet PO 10 mg HS SARAHI Administration Heparin Sodium (Porcine) 4,000 units 06/14/25 16:51 06/15/25 00:15 Heparin Sodium 5,000 Units/Ml Vial IV PUSH 4,000 units PRN PRN Administration aPTT less than 55 seconds Heparin Sodium (Porcine) 3,000 units 06/14/25 16:51 Heparin Sodium 5,000 Units/Ml Vial IV PUSH PRN PRN aPTT 55 - 70 seconds Heparin Sodium/Dextrose 25,000 units in 250 mls @ 10 mls/hr 06/14/25 17:00 06/15/25 08:16 Heparin Sodium/D5w 100 Units/Ml IV CONT 1,000 units/hr .Q24H SARAHI 10 mls/hr Protocol Titration 1,000 UNITS/HR Lactated Ringer's 1,000 mls @ 100 mls/hr 06/14/25 21:00 06/15/25 08:28 Lr - Lactated Ringers Iv IV CONT 100 mls/hr .Q10H SARAHI Administration Methocarbamol 1,000 mg 06/15/25 01:54 06/15/25 02:47 Methocarbamol 500 Mg Tablet PO 1,000 mg Q4H PRN Administration Muscle Spasm Metoclopramide HCl 5 mg 06/14/25 20:56 Metoclopramide Hcl Inj 10 Mg/2 Ml Vial IV PUSH Q6HR PRN nausea Metoprolol Tartrate 25 mg 06/14/25 21:00 06/14/25 21:28 Metoprolol Tartrate 25 Mg Tablet PO 25 mg Q12HR SARAHI Administration Montelukast Sodium 10 mg 06/14/25 21:00 06/14/25 21:28 Montelukast Sodium 10 Mg Tablet PO 10 mg HS SARAHI Administration Oxycodone HCl 5 mg 06/14/25 20:56 06/15/25 07:00 Oxycodone Hcl (*Crx) 5 Mg Tab Ir PO 5 mg Q4H PRN Administration Pain Rated 7-10 Radiology Results: ITS Impressions Chest X-Ray 06/14/25 17:53 Impression: No acute cardiopulmonary abnormality. Labs Labs: Laboratory Results - last 24 hr 06/14/25 06/14/25 06/14/25 16:34 19:59 23:02 WBC 6.5 RBC 5.08 Hgb 15.8 H Hct 48.0 H MCV 94.5 MCH 31.1 MCHC 32.9 RDW 12.1 Plt Count 306 MPV 10.6 H Immature Gran % (Auto) 0.2 Neut % (Auto) 36.0 L Lymph % (Auto) 48.6 H Hawkins % (Auto) 13.0 H Eos % (Auto) 1.4 Baso % (Auto) 0.8 Lymph # (Auto) 3.18 Hawkins # (Auto) 0.9 H Eos # (Auto) 0.1 Baso # (Auto) 0.1 Abs Immat Gran (auto) 0.01 Absolute Neuts (auto) 2.4 Absolute Nucleated RBC 0.000 Nucleated RBC % 0.0 PT 13.5 INR 1.0 APTT 24.9 25.4 Sodium 139 Potassium 3.5 Chloride 102 Carbon Dioxide 26 Anion Gap 11 BUN 12 D Creatinine 1.08 H Estim Creat Clear Calc 46 Estimated GFR 51 L Glucose 129 H Calcium 9.4 Magnesium 2.2 Total Bilirubin 0.6 AST 27 ALT 21 Alkaline Phosphatase 52 Troponin I < 0.012 0.025 D Total Protein 7.7 Albumin 4.7 Lipase 66 06/14/25 06/15/25 23:06 06:24 WBC 4.1 L RBC 4.22 Hgb 13.3 Hct 39.4 MCV 93.4 MCH 31.5 MCHC 33.8 RDW 12.1 Plt Count 223 MPV 10.7 H Immature Gran % (Auto) Neut % (Auto) Lymph % (Auto) Hawkins % (Auto) Eos % (Auto) Baso % (Auto) Lymph # (Auto) Hawkins # (Auto) Eos # (Auto) Baso # (Auto) Abs Immat Gran (auto) Absolute Neuts (auto) Absolute Nucleated RBC Nucleated RBC % PT 13.4 INR 1.0 APTT Cancelled 179.0 H* Sodium 136 L Potassium 4.1 Chloride 107 Carbon Dioxide 23 Anion Gap 6 BUN 8 Creatinine 0.60 L Estim Creat Clear Calc 80 Estimated GFR > 60 Glucose 95 Calcium 8.9 Magnesium 1.9 Total Bilirubin 0.7 AST 26 ALT 18 Alkaline Phosphatase 52 Troponin I 0.027 Total Protein 6.2 L Albumin 3.7 Lipase
[2025-06-15] MEDS: DULoxetine HCL 60 MG CAPSULE.DR PO (09:05)
[2025-06-15] MEDS: CALCIUM CARBONATE (OSCAL) 500 MG TABLET 1000 MG PO (09:05)
[2025-06-15] MEDS: ASCORBIC ACID 500 MG TABLET PO (09:05)
[2025-06-15] MEDS: METOPROLOL TARTRATE 25 MG TABLET PO (09:05)
--- NOTE | 2025-06-15 11:48 | PM.CNCAR ---
Assessment and Plan Assessment and plan (1) PSVT (paroxysmal supraventricular tachycardia): Code(s): I47.10 - Supraventricular tachycardia, unspecified Status: Acute Assessment and Plan: No atrial fib or flutter. May stop heparin drip. Obtain 30 day event monitor, and then send results to Dr. Upton who she now sees for it. Increase Metoprolol 25 mg BID. May d/c home from cardiology standpoint after she gets event monitor. History of Present Illness History of Present Illness Consult date/time: 06/15/25 11:48 Reason For Visit: Possible A fib with RVR with new ST changes Narrative: 65 yr old woman who was my regular cardiology patient but now sees Dr. Upton at [facility] presents to ER with tachycardia. She has a history of palpitations and likely SVT since she was much younger. States she had fast HR and watch showed HR 130 bpm for a whole day, and then she presented to ER. In ER EKG did show SVT which has resolved since. She has episodes of palpitations rarely and resolved by her taking additional Metoprolol or vagal maneuvers. She reports fatigue but sleeps well. She can walk 1/2 mile but limited by scoliosis in her back. She had cervical fusion surgery. She has back pain. Denies chest pain, sob, orthopnea, PND, edema. Cardiovascular Procedures Echo/MUGA:: 09/02/20 Echo at [facility]: EF 73%, trace MR/TR. Electrophysiology:: 08/01/20 EKG: Sinus rhythm, IRBBB. 05/04/21 30 day event monitor at [facility]: Sinus rhythm, HR range 50-172 bpm; average 82; 1% PAC, 3 SVT, fastest at 172 bpm and longest 12 seconds; <1% PVC's, one 17 beat wide complex tachycardia likely SVT with aberrancy at 165 bpm. 08/17/20 EKG: :Sinus rhythm, IRBBB. Stress Tests:: 10/03/21 Xray scoliosis: Severe cervical and lumbar spondylosis and scoliosis of cervical, thoracic and lumbar. 05/09/21 Carotid duplex: normal carotids. 05/09/21 CT head: Cerebral atherosclerosis. Review of Systems Review of Systems: All systems reviewed & are unremarkable except as noted in HPI and below Constitutional: Constitutional: Reports as per HPI, Denies chills and Denies fever(s) Cardiovascular: Cardiovascular: Reports as per HPI, Denies chest pain and Reports rapid heart rate Respiratory: Respiratory: Reports as per HPI and Denies dyspnea Gastrointestinal: Gastrointestinal: Reports as per HPI and Denies abdominal pain Genitourinary: Genitourinary: Reports as per HPI and Denies dysuria Musculoskeletal: Musculoskeletal: Reports as per HPI and Reports back pain Neurologic: Reports as per HPI, Denies dizziness and Denies syncope PMFSH Past Medical History Medical History Colon cancer screening Chronic, continuous use of opioids hydrocodone GERD (gastroesophageal reflux disease) SVT (supraventricular tachycardia) Hypertension 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 Vaginal delivery x2 Missed x1 Endometriosis Arthritis Anxiety Fibromyalgia Scoliosis Surgical History Surgical History History of D&C (~07/21/24) D&C hysteroscopy with resection of polyp S/P cervical spinal fusion (~08/09/22) C3-6 [place] teeth extracted 1982 History of endometrial ablation History of dilation and curettage 1988 History of laparoscopy early , endometriosis Family History Family History Father Cerebrovascular accident Depression Anxiety Family history of blood dyscrasia Mother Family history of chronic obstructive pulmonary disease Hypertension Anxiety Depression Thyroid disorder Grandparent Family history of cardiovascular disease Acute myocardial infarction Carcinoma of colon Family history of malignant neoplasm of breast in first degree relative Breast cancer Social History Social History Smoking packs per day: 1 Smoking cigarettes per day: 20.0 Years smoked: 2 Smoking pack-years: 2.00 Smoking status: Former smoker Tobacco type: cigarettes Second hand tobacco smoke exposure: No Smoking end date: 07/30/82 Alcohol intake: former Substance use: never Substance use type: does not use Other substance usage details: DURING COLLEGE YRS Do You Feel Safe in your Home?: Yes Lack of Transportation: No Lack of Food: Never True Current Housing: I Have Housing Concerned About Future Housing: No Difficulty Paying Gas/Electric Bills: No Difficulty Paying for Meds: No Currently Unemployed: No Education: Bachelor's Degree Difficulty w/ Childcare or Family Care: No Living arrangements: with family Additional living arrangements comments: Occupation/Education: retired Gender identity (if verbalized by the patient): Female Sexual Orientation (if Verbalized by the Patient): Straight or Heterosexual Spiritual care concerns: No Meds Home Medications and Allergies Home Medications ?Medication ?Instructions ?Recorded ?Confirmed ?Type alpha lipoic acid 550 mg PO DAILY 04/19/20 06/14/25 History magnesium citrate 2 cap PO Q12H 04/19/20 06/14/25 History methocarbamol 500 mg tablet 1,000 mg PO Q4H PRN muscle spasm 04/19/20 06/14/25 History calcium carbonate (Calcium 600) 1,200 mg PO Q12H 04/25/21 06/14/25 History famotidine 10 mg tablet 10 mg PO HS 05/15/22 06/14/25 History duloxetine 60 mg capsule,delayed 60 mg PO Q12H 03/17/24 06/14/25 History release estradiol-norethindrone acet 1 1 tablet PO HS 03/17/24 06/14/25 History mg-0.5 mg tablet acetaminophen 650 mg 650 mg PO Q12H PRN pain 05/15/24 06/14/25 History tablet,extended release (Tylenol 8 Hour) meloxicam 15 mg tablet 15 mg PO HS 05/15/24 06/14/25 History vitamin B complex (Vitamins B 1 cap PO DAILY 07/14/24 06/14/25 History Complex capsule) hydrocortisone 2.5 % topical 1 applic topical Q12H 07/22/24 06/14/25 History ointment lurasidone 80 mg tablet 80 mg PO QPM 11/03/24 06/14/25 History estradiol 10 mcg vaginal tablet 10 mcg vaginal .twice a week 11/08/24 06/14/25 History metoprolol succinate 25 mg 25 mg PO DAILY 11/11/24 06/14/25 History tablet,extended release 24 hr amitriptyline 50 mg tablet 50 mg PO HS 06/14/25 06/14/25 History ascorbic acid (vitamin C) 500 mg 500 mg PO DAILY 06/14/25 06/14/25 History tablet (Vitamin C) hydrocodone 10 mg-acetaminophen 1 tablet PO Q6H PRN pain 06/14/25 06/14/25 History 325 mg tablet levomefolate 7.5 mg-algal oil 1 cap PO QPM 06/14/25 06/14/25 History 90.314 mg capsule (L-Methylfolate Forte) montelukast 10 mg tablet 10 mg PO HS 06/14/25 06/14/25 History (Singulair) Allergies Allergy/AdvReac Type Severity Reaction Status Date / Time Sulfa (Sulfonamide Allergy Intermediate Unknown Verified 06/14/25 19:57 Antibiotics) capsaicin AdvReac Severe burning Verified 06/14/25 19:57 sensation DECONGESTANT Allergy Intermediate BLADDER Uncoded 04/01/25 06:12 SPSAMS Vital Signs Vital Signs - 24 hr 06/14/25 16:26 06/14/25 16:32 06/14/25 16:55 Temperature 97.6 F Pulse Rate 124 H 128 H Respiratory Rate 17 Blood Pressure 116/61 Pulse Oximetry 99 100 Oxygen Delivery Room Air Room Air 06/14/25 17:08 06/14/25 18:18 06/14/25 18:54 Temperature Pulse Rate 80 76 74 Respiratory Rate 20 16 14 Blood Pressure 113/85 107/69 112/71 Pulse Oximetry 100 100 100 Oxygen Delivery 06/14/25 19:38 06/14/25 20:00 06/14/25 20:00 Temperature 98.4 F Pulse Rate 74 72 Respiratory Rate 16 Blood Pressure 118/65 Pulse Oximetry 100 Oxygen Delivery Room Air 06/14/25 21:28 06/14/25 22:00 06/15/25 00:00 Temperature 98.5 F Pulse Rate 78 74 65 Respiratory Rate 13 Blood Pressure 126/71 Pulse Oximetry 97 Oxygen Delivery 06/15/25 00:00 06/15/25 00:00 06/15/25 02:00 Temperature Pulse Rate 66 65 Respiratory Rate Blood Pressure Pulse Oximetry Oxygen Delivery Room Air 06/15/25 03:44 06/15/25 04:00 06/15/25 04:00 Temperature 98.5 F Pulse Rate 67 64 Respiratory Rate 16 Blood Pressure 136/73 Pulse Oximetry 97 Oxygen Delivery Room Air 06/15/25 06:00 06/15/25 07:56 06/15/25 08:00 Temperature 98.4 F Pulse Rate 71 67 67 Respiratory Rate 14 14 Blood Pressure 130/80 Pulse Oximetry 99 99 Oxygen Delivery Room Air 06/15/25 08:00 06/15/25 09:05 06/15/25 09:56 Temperature Pulse Rate 67 72 Respiratory Rate Blood Pressure Pulse Oximetry 97 Oxygen Delivery Room Air 06/15/25 10:00 Temperature Pulse Rate 58 L Respiratory Rate Blood Pressure Pulse Oximetry Oxygen Delivery Exam Const: General: cooperative, healthy appearing and comfortable Resp: Auscultation: clear to auscultation bilaterally, no crackles, no rales, no rhonchi and no wheezes Cardio: Rate: regular rate Rhythm: regular rhythm Heart sounds: no murmurs Peripheral pulses: dorsalis pedis present GI: GI Palp: No abdominal tenderness and Yes Soft to palpation Neuro: General: oriented to person, oriented to place and oriented to time Extrem: Right lower extremity: no edema Left lower extremity: no edema Results Labs and Meds 06/15/25 06:24 06/15/25 06:24 Lab results: Cardiac Enzymes 06/14/25 06/14/25 06/14/25 Range/Units 16:34 19:59 23:06 AST 27 (14-36) U/L Troponin I < 0.012 0.025 D 0.027 (0.000-0.034) ng/mL 06/15/25 Range/Units 06:24 AST 26 (14-36) U/L Troponin I (0.000-0.034) ng/mL Coagulation 06/14/25 06/14/25 06/14/25 Range/Units 16:34 23:02 23:06 PT 13.5 13.4 (11.1-14.7) Seconds APTT 24.9 25.4 Cancelled (22.3-36.8) Seconds 06/15/25 Range/Units 06:24 PT (11.1-14.7) Seconds APTT 179.0 H* (22.3-36.8) Seconds CBC 06/14/25 06/15/25 Range/Units 16:34 06:24 WBC 6.5 4.1 L (4.5-10.0) K/mm3 RBC 5.08 4.22 (4.2-5.4) M/mm3 Hgb 15.8 H 13.3 (12.0-15.0) g/dL Hct 48.0 H 39.4 (37.0-47.0) % Plt Count 306 223 (150-375) k/mm3 Lymph # (Auto) 3.18 (0.9-3.2) K/mm3 [place] # (Auto) 0.9 H (0.1-0.6) K/mm3 Eos # (Auto) 0.1 (0-0.3) K/mm3 Baso # (Auto) 0.1 (0.0-0.1) K/mm3 Comprehensive Metabolic Panel 06/14/25 06/15/25 Range/Units 16:34 06:24 Sodium 139 136 L (137-145) mmol/L Potassium 3.5 4.1 (3.4-5.0) mmol/L Chloride 102 107 (98-107) mmol/L Carbon Dioxide 26 23 (22-30) mmol/L BUN 12 D 8 (7-17) mg/dL Creatinine 1.08 H 0.60 L (0.7-1.0) mg/dL Glucose 129 H 95 (65-110) mg/dL Calcium 9.4 8.9 (8.4-10.2) mg/dL AST 27 26 (14-36) U/L ALT 21 18 (6-35) U/L Alkaline Phosphatase 52 52 (38-126) U/L Total Protein 7.7 6.2 L (6.3-8.2) g/dL Albumin 4.7 3.7 (3.5-5.1) g/dL Intake and Output 06/14/25 06/15/25 06/15/25 23:59 07:59 15:59 Intake Total 1000 2271.9 0 Output Total 640 275 Balance 1000 1631.9 -275 Intake: IV 1000 1148.9 0 Heparin Sod/D5w 100 Units/ml 25 148.9 0 ,000 units In 250 ml @ 1,000 UNITS/HR 10 mls/hr IV CONT . Q24H SARAHI Rx#:[id number] Lactated Ringers 1,000 ml @ 100 1000 mls/hr IV CONT .Q10H SARAHI Rx#: [id number] Sodium Chloride 0.9% IV 1,000 1000 ml @ 999 mls/hr IV CONT .Q1H1M STA Rx#:[id number] Oral 1123 Output: Urine 640 275 Other: Number of Bowel Movements Today 0 Patient Weight 06/15/25 23:59 Weight 70.6 kg
--- NOTE | 2025-06-15 12:10 | PC.NURSE ---
Event monitor applied to patient by Dr. Hall's MA.
--- NOTE | 2025-06-15 12:46 | P.DS_ITS ---
DS: Admitting Diagnosis Discharge Date 06/15/2025 Admitting Diagnosis scoliosis fibromyalgia SVT heart palpitations DS: Discharge Diagnosis Discharge Diagnosis (1) Scoliosis: Qualifiers: Scoliosis type: unspecified scoliosis Spinal region: unspecified Qualified Code(s): M41.9 - Scoliosis, unspecified Code(s): M41.9 - Scoliosis, unspecified Status: Chronic Assessment and Plan: continue home medications (2) Fibromyalgia: Code(s): M79.7 - Fibromyalgia Status: Chronic Assessment and Plan: continue home medications (3) SVT (supraventricular tachycardia): Code(s): I47.1 - Supraventricular tachycardia Status: Acute Assessment and Plan: on metoprolol 25 mg PO daily at home (4) Heart palpitations: Code(s): R00.2 - Palpitations Status: Acute Assessment and Plan: initial EKG showed sinus tachycardia with ST depressions in lateral inferior leads s/p aspirin 324 mg x 1, metoprolol.l 5 mg IV x 1 and 1 L normal saline bolus repeat EKG shows sinus rhythm with improvement in ST changes troponin x 2 - 0.012, 0.025 patient was started on a heparin drip cardiology was consulted telemetry monitoring started on metoprolol 25 mg BID, continue on discharge cardiology saw patient and recommended to stop the heparin drip, continue metoprolol 25 mg BID, discharge patient with 30 day event monitor and she will follow up with her electrical equipment technician Dr. Upton for the results DS: Summary Hospital Course Reason for hospitalization: heart palpitations Hospital Course: The patient is a 65-year-old female with a history of SVT on metoprolol, hypertension, GERD, fibromyalgia, depression, anxiety, scoliosis with chronic low back pain, and chronic opioid use status post cervical fusion, who presented with several days of palpitations, weakness, dizziness, and decreased oral intake. She reported a heart rate in the 130s on her smart watch, which did not improve with an extra dose of metoprolol. She also experienced associated nausea, likely related to recent escalation of her opioid regimen. On arrival, initial EKG showed sinus tachycardia with ST depressions in the lateral and inferior leads. She received aspirin, IV metoprolol, IV fluids, and antiemetics, with subsequent improvement in symptoms and EKG findings. Serial troponins were mildly elevated but trended down, and chest x-ray was unremarkable. Cardiology was consulted, and the patient was started on a heparin drip and admitted for telemetry monitoring. Her home metoprolol was increased to 25 mg BID, and potassium was repleted. She was kept NPO overnight and received IV fluids for dehydration. During her stay, the patient?s rhythm stabilized, and she remained hemodynamically stable without recurrence of tachycardia. Cardiology recommended discontinuing the heparin drip and discharging the patient with a 30-day event monitor for outpatient rhythm surveillance, with follow-up arranged with her electrical equipment technician. She was discharged on metoprolol 25 mg BID and instructed to cont inue her home medications. Her hospital course was otherwise uncomplicated, and she was discharged in stable condition Time Spent with Patient Time attestation: Total time spent providing and/or coordinating discharge services: 25 Minutes Exam Const: General: comfortable and no acute distress HENMT: Face/Nose/Sinus: Normal nares present Mouth: Yes moist mucous membranes Eyes: General: appearance normal, both eyes and all related structures Sclera: sclerae normal Neck: Neck: supple Resp: Effort & Inspection: normal respiratory effort Auscultation: clear to auscultation bilaterally Cardio: Rate: regular rate Rhythm: regular rhythm GI: GI Palp: Yes Soft to palpation Auscultation: normal bowel sounds Skin: General skin exam: normal color and no rashes or lesions noted Neuro: Motor exam (neuro): 5/5 motor strength present throughout Sensory Exam: normal sensation Extrem: General: normal to inspection Psych: Mental Status: mental status grossly normal Affect: normal affect DS: Data Data Completed and Pending Labs on day of discharge: Labs from last 24 hours 06/15/25 06/14/25 06/14/25 06:24 23:06 23:02 WBC 4.1 L RBC 4.22 Hgb 13.3 Hct 39.4 MCV 93.4 MCH 31.5 MCHC 33.8 RDW 12.1 Plt Count 223 MPV 10.7 H Immature Gran % (Auto) Neut % (Auto) Lymph % (Auto) [place] % (Auto) Eos % (Auto) Baso % (Auto) Lymph # (Auto) [place] # (Auto) Eos # (Auto) Baso # (Auto) Abs Immat Gran (auto) Absolute Neuts (auto) Absolute Nucleated RBC Nucleated RBC % PT 13.4 INR 1.0 APTT 179.0 H* Cancelled 25.4 Sodium 136 L Potassium 4.1 Chloride 107 Carbon Dioxide 23 Anion Gap 6 BUN 8 Creatinine 0.60 L Estim Creat Clear Calc 80 Estimated GFR > 60 Glucose 95 Calcium 8.9 Magnesium 1.9 Total Bilirubin 0.7 AST 26 ALT 18 Alkaline Phosphatase 52 Troponin I 0.027 Total Protein 6.2 L Albumin 3.7 Lipase 06/14/25 06/14/25 19:59 16:34 WBC 6.5 RBC 5.08 Hgb 15.8 H Hct 48.0 H MCV 94.5 MCH 31.1 MCHC 32.9 RDW 12.1 Plt Count 306 MPV 10.6 H Immature Gran % (Auto) 0.2 Neut % (Auto) 36.0 L Lymph % (Auto) 48.6 H [place] % (Auto) 13.0 H Eos % (Auto) 1.4 Baso % (Auto) 0.8 Lymph # (Auto) 3.18 [place] # (Auto) 0.9 H Eos # (Auto) 0.1 Baso # (Auto) 0.1 Abs Immat Gran (auto) 0.01 Absolute Neuts (auto) 2.4 Absolute Nucleated RBC 0.000 Nucleated RBC % 0.0 PT 13.5 INR 1.0 APTT 24.9 Sodium 139 Potassium 3.5 Chloride 102 Carbon Dioxide 26 Anion Gap 11 BUN 12 D Creatinine 1.08 H Estim Creat Clear Calc 46 Estimated GFR 51 L Glucose 129 H Calcium 9.4 Magnesium 2.2 Total Bilirubin 0.6 AST 27 ALT 21 Alkaline Phosphatase 52 Troponin I 0.025 D < 0.012 Total Protein 7.7 Albumin 4.7 Lipase 66 Imaging Radiologist's impression: Ordering Physician: Mika Ding DO Date of Service: 06/14/25 Procedure(s): XR chest 2V Accession Number(s): [id number] cc: Mika Ding DO~ EXAMINATION: XR chest 2V, 06/14/2025 17:30 [employer] HISTORY: chest pain COMPARISON: No comparisons available. Technique: 2 views obtained. Findings: The lungs are clear, no effusion. No pneumothorax. Heart is normal size. Mediastinal and hilar contours are within normal limits. Bony thorax no acute abnormality. Impression: No acute cardiopulmonary abnormality. Reviewed, dictated and finalized at location [employer] Discharge Plan Discharge Attending physician on discharge: Anna Hill Consulting providers: Sanya Hall Discharging Clinician: Stpehanie Berry Patient Disposition: Home Activity: as tolerated Diet: heart healthy Discharge Instructions: You will be discharged home with a 30-day event monitor. Follow up with your electrical equipment technician Dr. Upton to obtain the results. Call his office to get an appointment to be seen after they receive the results. Patient Instructions: Antibiotic Form, A-fib (Atrial Fibrillation) (DC) Patient Language: Honduran Stand Alone Forms: General Discharge Information Follow-up/Referrals: Hermelinda Ortega MD [Primary Care Provider, [facility]] Referral Note: call for an appointment to be seen within 1-2 weeks of dis charge. Discharge Medications: New metoprolol tartrate 25 mg Tablet 25 mg PO Q12HR Qty: 60 0RF Continued famotidine 10 mg tablet 10 mg PO HS estradiol-norethindrone acet 1-0.5 mg tablet 1 tablet PO HS duloxetine 60 mg capsule,delayed release(DR/EC) 60 mg PO Q12H calcium carbonate [Calcium 600] 600 mg calcium (1,500 mg) tablet 1,200 mg PO Q12H lurasidone 80 mg tablet 80 mg PO QPM Rx Instructions: takes with dinner meloxicam 15 mg tablet 15 mg PO HS hydrocortisone 2.5 % ointment 1 applic topical Q12H hydrocodone-acetaminophen 10-325 mg tablet 1 tablet PO Q6H PRN (Reason: pain) amitriptyline 50 mg tablet 50 mg PO HS ascorbic acid (vitamin C) [Vitamin C] 500 mg tablet 500 mg PO DAILY L-Methylfolate Forte 7.5-90.314 mg capsule 1 cap PO QPM Rx Instructions: take with dinner montelukast [Singulair] 10 mg tablet 10 mg PO HS methocarbamol 500 mg tablet 1,000 mg PO Q4H PRN (Reason: muscle spasm) alpha lipoic acid 550 mg PO DAILY magnesium citrate 250 MG 2 cap PO Q12H acetaminophen [Tylenol 8 Hour] 650 mg tablet extended release 650 mg PO Q12H PRN (Reason: pain) vitamin B complex [Vitamins B Complex] Capsule 1 cap PO DAILY estradiol 10 mcg tablet 10 mcg VAGINAL .twice a week Discontinued metoprolol succinate 25 mg tablet extended release 24 hr 25 mg PO DAILY Date of admission: 06/14/25 18:25 Primary Care Provider: Hermelinda Ortega Admitting Provider: Delroy Gallego Attending physician on admission: Delroy Gallego Condition: Stable Quality VTE Prophylaxis VTE prophylaxis: pharmacologic ordered
== END 2025-06-15 13:10 | disposition home or self-care (01) | DRG 310 ==
LOC: ANHED 16:41 → ANHIMU 18:52
PROVIDERS: General Practice; Admitting Provider Internal Medicine; Emergency Provider Student in an Organized Health Care Education/Training Program; PCP Family Medicine; Visit Provider Nurse Practitioner Adult Health
DX: I47.10 Supraventricular tachycardia, unspecified (principal); K21.9 Gastro-esophageal reflux disease without esophagitis; M79.7 Fibromyalgia; I10 Essential (primary) hypertension; M41.83 Other forms of scoliosis, cervicothoracic region; M41.86 Other forms of scoliosis, lumbar region; M54.89 Other dorsalgia; I45.19 Other right bundle-branch block; E86.0 Dehydration; F32.A Depression, unspecified; F41.9 Anxiety disorder, unspecified; Z79.891 Long term (current) use of opiate analgesic; Z98.1 Arthrodesis status; Z87.891 Personal history of nicotine dependence
CPT/HCPCS: 36415; 71046; 80053; 83690; 83735; 84484; 85025; 85027; 85610; 85730; 93005; 96361; 96374; 96375; 99285; A9270; J0616; J1644; J2405; J7030; J7120

== ENCOUNTER 2025-07-04 05:44 | Observation (INO) | payer MEDICARE, SELFPAY ==
[2025-07-04] VITALS (7 sets, daily range): BP systolic 114–153; BP diastolic 65–84; PULSE 69–98; RESP 14–20; TEMP 36.7–36.9; O2SAT 96–100; BMI 22.7
--- NOTE | 2025-07-04 | ECHO_ITS ---
Patient Info Name: Annette Santiago Age: 65 years : 1960 Gender: Female Ht: 68 in Wt: 157 lbs BSA: 1.85 m2 HR: 86 bpm BP: 114 / 83 mmHg Heart Rhythm: Sinus Rhythm Technical Quality: Good Exam Date: 07/04/2025 11:13 AM Patient Status: I Admit Date: 07/04/2025 Exam Type: CA echo doppler w bubble study Complete two-dimensional, color flow and Doppler transthoracic echocardiogram is performed with agitated saline. Staff Referring Physician: Fadi Brennan Fur Storage Clerk: Heber Roth Attending Provider: Malik Ruelas Oca Contrast/Agitated Saline Contrast/Ag. Saline: Agitated Saline Amount: 20.00 ml Administered By: Heber Roth IV Access Condition: patent with no signs of infiltration Summary 1. Left ventricular systolic function is normal, estimated at 60-65. 2. The left ventricular diastolic function is grade I diastolic dysfunction. 3. Patent foramen ovale visualized by agitated saline imaging. Large number of bubbles crossed. Left Ventricle Left ventricular chamber dimension is normal. Left ventricular systolic function is normal, estimated at 60-65. There is mildly increased left ventricular wall thickness. Left ventricular septal wall motion is normal. The left ventricular diastolic function is grade I diastolic dysfunction. Right Ventricle Right ventricular chamber dimension is normal. Right ventricular systolic function is normal. Left Atria Left atrial chamber dimension is normal. Right Atria Right atrial chamber dimension is normal. Atrial Septum Patent foramen ovale visualized by agitated saline imaging. Large number of bubbles crossed. Aortic Valve The aortic valve is trileaflet. There is no aortic valve sclerosis. There is no aortic valve stenosis. There is no aortic valve regurgitation. Pulmonic Valve The pulmonic valve is normal. There is no pulmonic valve stenosis. There is no pulmonic regurgitation. Mitral Valve The mitral valve has normal leaflets. There is no mitral valve stenosis. There is no mitral valve regurgitation. Tricuspid Valve The tricuspid valve leaflets are normal. There is no significant tricuspid valve stenosis. There is no tricuspid valve regurgitation. Pericardium/Pleural The pericardium appears normal. There is no pericardial effusion. Inferior Vena Cava Normal inferior vena cava with >50% collapse upon inspiration consistent with normal right atrial pressure, 5 mmHg. Aorta The aortic root size at the sinus of Valsalva is normal. The prox ascending aorta size is normal. Left Ventricular Outflow Tract Name Value Normal LVOT 2D LVOT Diameter 1.7 cm LVOT Doppler LVOT Peak Velocity 109 cm/s LVOT Peak Gradient 5 mmHg LVOT Mean Gradient 3 mmHg LVOT VTI 24 cm LVOT Stroke Volume 54 ml LVOT CO 4.7 l/min LVOT CI 2.5 l/min/m2 Pulmonic Valve Name Value Normal RVOT Doppler RVOT Peak Velocity 93 cm/s RVOT Peak Gradient 3 mmHg PV Doppler PV Peak Velocity 101 cm/s PV Peak Gradient 4 mmHg Mitral Valve Name Value Normal MV Diastolic Function MV E Peak Velocity 60 cm/s MV A Peak Velocity 92 cm/s MV E/A 0.7 MV Decel Time (PW) 128 ms MV Annular TDI MV E/e' (Septal) 10.9 MV E/e' (Lateral) 7.5 MV E/e' (Average) 9.2 Tricuspid Valve Name Value Normal Estimated PAP/RSVP RA Pressure 5 mmHg <=5 Aortic Valve Name Value Normal AV Doppler AV Peak Velocity 127 cm/s AV Peak Gradient 6 mmHg AV Area (Cont Eq Garrison) 2.0 cm2 AV DI (Garrison) 0.86 AV Regurgitation 2D LVOT Area 2.3 cm2 Ventricles Name Value Normal LV Dimensions 2D/MM IVS Diastolic Thickness (2D) 1.1 cm 0.6-1.0 LVID Diastole (2D) 3.3 cm 3.8-5.2 LVIW Diastolic Thickness (2D) 1.0 cm 0.6-0.9 LVID Systole (2D) 1.7 cm 2.2-3.5 LVOT Diameter 1.7 cm LV Mass (2D Cubed) 102.68 g 67.00-162.00 LV Mass Index (2D Cubed) 55 g/m2 43-95 Relative Wall Thickness (2D) 0.61 <=0.42 LV Fractional Shortening/Ejection Fraction 2D/MM LV Fractional Shortening (2D) -6 % 27-45 LV EF (2D Teichholz) 81 % LV Diastolic Volume (4C MOD) 49 ml LV EF (4C MOD) 78 % LV Diastolic Volume (2C MOD) 48 ml LV EF (2C MOD) 81 % LV Diastolic Volume (BP MOD) 50 ml 46-106 LV Diastolic Volume Index (BP MOD) 27 ml/m2 29-61 LV Systolic Volume (BP MOD) 10 ml 14-42 LV Systolic Volume Index (BP MOD) 6 ml/m2 8-24 LV EF (BP MOD) 79 % 54-74 LV Diastolic Length (4C) 7.5 cm LV Systolic Length (4C) 5.3 cm LV Stroke Volume (4C MOD) 38 ml RV Dimensions 2D/MM RVID Diastole (2D) 2.3 cm 2.1-3.5 Atria Name Value Normal LA Dimensions LA Volume (4C A-L) 21 ml LA Volume (BP A-L) 25 ml RA Dimensions RA Systolic Major [place] Length (4C) 3.7 cm 2.2-2.8 RA Area (4C) 9.1 cm2 <=18.0 Report Signatures
--- NOTE | ~2025-07-04 | CT_ITS ---
CT HEAD NON-CONTRAST Clinical History: AMS Comparison: CTA brain 11/08/2024 Technique: Unenhanced axial images skull base to vertex Coronal, sagittal reformats CT images acquired with automatic exposure control for dose reduction DLP: 605 mGy-cm Findings: Mild white matter changes, typically chronic microvascular ischemic disease Sulci, ventricles: Unremarkable. No intracerebral hemorrhage. No evidence acute territorial infarct. No mass effect, midline shift. Bony calvarium intact. Visualized paranasal sinuses: Clear. Mastoid air cells: Clear. IMPRESSION: 1. No acute intracranial findings. Reviewed, dictated and finalized at location R. L POST INSTALLER
--- NOTE | ~2025-07-04 | MR_ITS ---
EXAMINATION: MR brain/brain stem wo/w con COMPARISON: None HISTORY: TIA, confusion TECHNIQUE: Multiplanar multisequence images obtained of the brain without and with intravenous contrast, Prohance 17cc injected IV. FINDINGS: Cerebellar tonsils are normal in location. No abnormal signal in the clivus of the cervical spine. Pituitary does not appear enlarged There is no acute infarct or hemorrhage identified Motion artifact limits evaluation There are scattered areas of abnormal signal within the subcortical white matter which probably represent areas of chronic periventricular ischemic change No hydrocephalus or midline shift. No extra-axial fluid collections. Appropriate flow voids are maintained. Moderate right maxillary sinusitis. The remaining mastoid air cells, sinuses and orbits appear unremarkable There is no abnormal enhancement identified IMPRESSION: 1. No acute infarct or hemorrhage Reviewed, dictated and finalized at location P. CIL CUTTER
--- NOTE | ~2025-07-04 | XR_ITS ---
Examination: XR chest 1V Clinical History: AMS Comparison: 06/14/2025 Technique: Portable AP Findings: Vagal stimulator. Heart size normal. Lungs clear. No acute bony abnormality. IMPRESSION: 1. No acute cardiopulmonary findings given portable technique. Reviewed, dictated and finalized at location R. HAUL DUMP OPERATOR
--- NOTE | ~2025-07-04 | CT_ITS ---
EXAMINATION: CTA brain carotid DATE: 07/04/2025 08:24 INDICATION: Altered mental status. TECHNIQUE: Computed tomographic angiography (CTA) of the head was performed with 100 mL Omnipaque-350 intravenous contrast. CTA of the neck was performed with intravenous contrast. Automated exposure control and iterative reconstruction technique were employed. The dose-length product was 1166.52 mGy-cm. Maximum intensity projection and volume rendered 3D-reconstructions were created by the technologist on a separate workstation. COMPARISON: Head CT 07/04/2025, CTA 11/08/2024, brain MRI 11/08/2024 FINDINGS: HEAD CTA: There are scattered areas of low attenuation in the cerebral white matter. There is no intracranial hemorrhage, acute infarction, or abnormal intracranial mass lesion. The ventricles are normal in size. There is mucosal thickening in the paranasal sinuses. There is thickening and sclerosis of the wren of right maxillary sinus, consistent with chronic sinusitis. The mastoid air cells are normal. There are likely changes of right ocular lens replacement surgery. The vertebral arteries are codominant. There is no significant stenosis of basilar artery or the posterior cerebral arteries. There is no significant stenosis of intracranial internal carotid arteries or anterior or middle cerebral arteries. Anterior communicating artery is normal. The posterior communicating arteries are normal. There is no aneurysm. NECK CTA: There is mild scarring at the lung apices. There are nodules in the thyroid measuring up to 8 mm, likely not clinically significant. There are no pathologically enlarged lymph nodes. There is no significant stenosis of the vertebral arteries. There is no visible plaque in the proximal internal carotid arteries. There is 0% stenosis of the proximal right internal carotid artery relative to normal distal artery lumen diameter (NASCET criteria). There is 0% stenosis of the proximal left internal carotid artery relative to normal distal artery lumen diameter. There are changes of anterior fusion procedure from C3 to C6 with anterior plate and screws. There is lack of bridging bone at C5-C6. There is a fractured screw in C6. There are lucencies around the other C6 screw, consistent with loosening. There is severe cervical spondylosis. IMPRESSION: 1. Mild nonspecific cerebral white matter disease, which likely represents chronic small vessel ischemic disease. 2. No aneurysm or significant intracranial arterial stenosis. 3. 0% stenosis of the proximal internal carotid arteries relative to normal distal artery lumen diameters (NASCET criteria). 4. Anterior fusion procedure in cervical spine with failed fusion at C5-C6. 5. Chronic sinusitis. Reviewed, dictated and finalized at location E. L CLEANER IMPRESSION: 1. Mild nonspecific cerebral white matter disease, which likely represents manager investment [place] small vessel ischemic disease. 2. No aneurysm or significant intracranial arterial stenosis. 3. 0% stenosis of the proximal internal carotid arteries relative to normal dis aaron artery lumen diameters (NASCET criteria). 4. Anterior fusion procedure in cervical spine with failed fusion at C5-C6. 5. Chronic sinusitis.
--- NOTE | 2025-07-04 05:59 | ECG_ITS ---
Test Date: 2025-07-04 07:10:07 Measurements Intervals [place] Rate: 74 P: 71 [place]: 195 QRS: 66 QRSD: 96 T: 48 QT: 397 QTc: 441 Interpretive Statements SINUS RHYTHM POSSIBLE LEFT ATRIAL ENLARGEMENT INCOMPLETE RIGHT BUNDLE BRANCH BLOCK BORDERLINE ST-T WAVE ABNORMALITY- INFERIOR LEADS BORDERLINE ECG Compared to ECG 06/14/2025 18:17:57 NO SIGNIFICANT CHANGE Electronically Signed On 07-04-2025 09:24:16 ENGINE MANAGER by Sanya Hall D.O.
--- NOTE | 2025-07-04 06:27 | ED.AMS ---
HPI - Altered Mental Status General Chief Complaint: Altered Mental Status <Akil Serna DO - Last Filed: 07/04/25 07:20> Stated Complaint: confusion <Akil Serna DO - Last Filed: 07/04/25 07:20> Time Seen by Provider: 07/04/25 06:11 <Akil Serna DO - Last Filed: 07/04/25 07:20> Source: patient, family and EMS <DO Dilma Mancia Last Filed: 07/04/25 07:20> Mode of arrival: EMS <Akil Serna DO - Last Filed: 07/04/25 07:20> Limitations: no limitations <Akil Serna DO - Last Filed: 07/04/25 07:20> History of Present Illness HPI narrative: Patient is a 65-year-old female presents to the emergency department by EMS for confusion. Patient reports that she went to bed around 3:00 p.m. and then woke up at 3:00 a.m. feeling confused. Patient notes that she feels better at this time. Patient states she has had a history of confusion like this in the past and they were thinking it might be her heart and she is wearing a Holter monitor tried to catch AFib. Patient denies ever having a sleep study done before. Patient denies any new or change medications. Patient admits to feeling dehydrated. Patient denies any focal weakness, numbness, headache, use of blood thinners, abdominal pain, chest pain, difficulty breathing, fever, cough, rash, vomiting, diarrhea, dysuria, urinary frequency. Patient admits to some nausea occasionally over the past day or 2. Patient admits to urinary urgency. Patient denies any recent antibiotic use. Patient denies any recent injuries or recent illness. <DO Dilma Mancia Last Filed: 07/04/25 07:20> Related Data Home Medications: Home Medications ?Medication ?Instructions ?Recorded ?Confirmed ?Last Taken ?Type alpha lipoic acid 550 mg PO .dinner 04/19/20 07/04/25 07/03/25 History magnesium citrate 2 cap PO Q12H 04/19/20 07/04/25 07/04/25 08:00 History methocarbamol 500 mg tablet 1,000 mg PO Q4H PRN muscle spasm 04/19/20 07/04/25 03/31/25 History calcium carbonate (Calcium 600) 1,200 mg PO Q12H 04/25/21 07/04/25 07/04/25 08:00 History famotidine 10 mg tablet 10 mg PO HS 05/15/22 07/04/25 07/03/25 17:00 History duloxetine 60 mg capsule,delayed 60 mg PO Q12H 03/17/24 07/04/25 07/04/25 08:00 History release estradiol-norethindrone acet 1 1 tablet PO HS 03/17/24 07/04/25 07/03/25 History mg-0.5 mg tablet acetaminophen 650 mg 650 mg PO Q12H PRN pain 05/15/24 07/04/25 07/20/24 History tablet,extended release (Tylenol 8 Hour) meloxicam 15 mg tablet 15 mg PO HS 05/15/24 07/04/25 07/03/25 20:00 History vitamin B complex (Vitamins B 1 cap PO DAILY 07/14/24 07/04/25 07/04/25 08:00 History Complex capsule) lurasidone 80 mg tablet 80 mg PO QPM 11/03/24 07/04/25 07/03/25 17:00 History ascorbic acid (vitamin C) 500 mg 500 mg PO DAILY 06/14/25 07/04/25 07/04/25 08:00 History tablet (Vitamin C) hydrocodone 10 mg-acetaminophen 1 tablet PO Q6H PRN pain 06/14/25 07/04/25 Unknown History 325 mg tablet levomefolate 7.5 mg-algal oil 1 cap PO QPM 06/14/25 07/04/25 07/03/25 20:00 History 90.314 mg capsule (L-Methylfolate Forte) montelukast 10 mg tablet 10 mg PO HS 06/14/25 07/04/25 07/03/25 20:00 History (Singulair) metoprolol tartrate 25 mg tablet 50 mg PO DAILY 07/04/25 07/04/25 07/03/25 08:00 History <Akil Serna, - Last Filed: 07/04/25 07:20> Allergies/Adverse Reactions: Allergies Allergy/AdvReac Type Severity Reaction Status Date / Time Sulfa (Sulfonamide Allergy Intermediate Unknown Verified 07/04/25 13:03 Antibiotics) capsaicin AdvReac Severe burning Verified 07/04/25 13:03 sensation DECONGESTANT Allergy Intermediate BLADDER Uncoded 04/01/25 06:12 SPSAMS <Akil Serna DO - Last Filed: 07/04/25 07:20> Review of Systems Review of Systems: A 10 system review of systems was completed on the patient and is negative except for what is stated in the HPI. Nursing and ancillary documentation was reviewed. <Akil Serna DO - Last Filed: 07/04/25 07:20> [facility] Past Medical History Medical History: Medical History Colon cancer screening Chronic, continuous use of opioids hydrocodone GERD (gastroesophageal reflux disease) SVT (supraventricular tachycardia) Hypertension 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 Vaginal delivery x2 Missed x1 Endometriosis Arthritis Anxiety Fibromyalgia Scoliosis <Akil Serna DO - Last Filed: 07/04/25 07:20> Surgical History Surgical History: Surgical History History of D&C (~07/21/24) D&C hysteroscopy with resection of polyp S/P cervical spinal fusion (~08/09/22) C3-6 [place] teeth extracted 1982 History of endometrial ablation History of dilation and curettage 1988 History of laparoscopy early , endometriosis <Akil Serna, - Last Filed: 07/04/25 07:20> Family History Family History: Family History Father Cerebrovascular accident Depression Anxiety Family history of blood dyscrasia Mother Family history of chronic obstructive pulmonary disease Hypertension Anxiety Depression Thyroid disorder Grandparent Family history of cardiovascular disease Acute myocardial infarction Carcinoma of colon Family history of malignant neoplasm of breast in first degree relative Breast cancer <Akil Serna DO - Last Filed: 07/04/25 07:20> Social History Social History: Social History Smoking packs per day: 1 Smoking cigarettes per day: 20.0 Years smoked: 2 Smoking pack-years: 2.00 Smoking status: Never smoker Tobacco type: cigarettes Second hand tobacco smoke exposure: No Smoking end date: 07/30/82 Alcohol intake: never Substance use: never Substance use type: does not use Other substance usage details: DURING COLLEGE YRS Lack of Transportation: No Lack of Food: Never True Current Housing: I Have Housing Concerned About Future Housing: No Difficulty Paying Gas/Electric Bills: No Difficulty Paying for Meds: No Currently Unemployed: No Education: Master's Degree or Higher Difficulty w/ Childcare or Family Care: No Living arrangements: with family Additional living arrangements comments: Occupation/Education: retired Gender identity (if verbalized by the patient): Female Sexual Orientation (if Verbalized by the Patient): Straight or Heterosexual Spiritual care concerns: No <Akil Serna DO - Last Filed: 07/04/25 07:20> Exam Narrative: CONST: No acute distress. HENMT: Head is normocephalic and atraumatic. Dry mucous membranes. No posterior oropharynx erythema. EYES: No scleral icterus. No conjunctival injection or pallor. PERRL. NECK: No meningeal signs. RESP: Able to speak in full sentences. Normal respiratory effort. CTAB. CARDIO: Regular rate. Regular rhythm. 2+ DP and radial pulses bilaterally. GI: Nondistended. No tenderness to palpation. Soft. : No CVA tenderness to palpation. SKIN: No rashes or lesions noted on exposed skin. NEURO: Oriented x3. Moves all extremities. Follows all commands appropriately. No drift of the bilateral upper extremities are bilateral lower extremities. No dysmetria with [id number] testing bilaterally. Normal [id number] testing bilaterally. Sensation intact to light touch throughout all 4 extremities. No [place] inattention or extinction. Speech is clear and fluent. Gaze is midline. Extraocular motions intact. No nystagmus. Visual mcmahan intact to confrontation. No facial asymmetry. EXTREM/MSK/BACK: No pedal edema. PSYCH: Normal affect. <Akil Serna DO - Last Filed: 07/04/25 07:20> Course Consultations Neurology: I have discussed the care of this patient with the following provider: Dr Rothman <Fadi Brennan MD - Last Filed: 07/04/25 17:49> Vital Signs Vital signs: Vital Signs Temperature 98.5 F 07/04/25 05:47 Pulse Rate 80 07/04/25 05:47 Respiratory Rate 14 07/04/25 05:47 Blood Pressure 153/83 H 07/04/25 05:47 Pulse Oximetry 99 07/04/25 05:47 Oxygen Delivery Room Air 07/04/25 05:47 Temperature 98.5 F 07/04/25 05:47 Pulse Rate 93 07/04/25 11:27 Respiratory Rate 18 07/04/25 11:27 Blood Pressure 136/81 07/04/25 11:27 Pulse Oximetry 99 07/04/25 11:27 Oxygen Delivery Room Air 07/04/25 05:47 <Akil Serna DO - Last Filed: 07/04/25 07:20> Vital Signs Temperature 98.5 F 07/04/25 05:47 Pulse Rate 80 07/04/25 05:47 Respiratory Rate 14 07/04/25 05:47 Blood Pressure 153/83 H 07/04/25 05:47 Pulse Oximetry 99 07/04/25 05:47 Oxygen Delivery Room Air 07/04/25 05:47 Temperature 98.5 F 07/04/25 05:47 Pulse Rate 93 07/04/25 11:27 Respiratory Rate 18 07/04/25 11:27 Blood Pressure 136/81 07/04/25 11:27 Pulse Oximetry 99 07/04/25 11:27 Oxygen Delivery Room Air 07/04/25 05:47 <Fadi Brennan MD - Last Filed: 07/04/25 17:49> [facility] Narrative Medical decision making narrative: Patient presents with the above complaint. Initial vitals are remarkable for no significant abnormalities. Physical examination as noted above. Plan discussed: Laboratory analysis, EKG, CT head, chest x-ray, continues cardiac monitoring, continuous pulse oximetry, IV fluids. NIH stroke scale performed and 0. Patient signed out to oncoming physician Dr. Brennan at shift change. <Akil Serna DO - Last Filed: 07/04/25 07:20> Patient presents with the above complaint. Initial vitals are remarkable for no significant abnormalities. Physical examination as noted above. Plan discussed: Laboratory analysis, EKG, CT head, chest x-ray, continues cardiac monitoring, continuous pulse oximetry, IV fluids. NIH stroke scale performed and 0. Patient signed out to oncoming physician Dr. Brennan at shift change. --- 65-year-old female present to the emergency department for evaluation for confusion that has since resolved. Patient is currently afebrile with a leukocytosis and hemoglobin of 14.1. INR of 1.0. No acute abnormalities on the patient's CMP patient's troponin was negative. TSH was negative. UA was negative for infection. UA did have red cells, white cells on high squamous with rare bacteria, urine culture was ordered. Patient did test positive for opiates on a drug screen. Patient was negative for influenza RSV and for COVID. Head CT and CTA brain were negative. Chest x-ray shows no acute cardiopulmonary abnormality. patient has no prior history of seizure disorder. Patient did not bite her tongue. Patient had no loss of bowel or bladder control. Differential does include TIA, seizure, conversion disorder. Case was discussed with hospitalist patient was accepted for admission for further evaluation for her confusion altered mental status. Neurology was consulted. EEG, MRI and cardiac echo were ordered. <Fadi Brennan MD - Last Filed: 07/04/25 17:49> Differential Diagnosis Differential Diagnosis: UTI, sleep apnea, pneumonia, metabolic derangement, electrolyte derangement, thyroid dysfunction, intracranial hemorrhage, polypharmacy, substance abuse. <Akil Serna DO - Last Filed: 07/04/25 07:20> Medical Records I have reviewed the following patient records and this information was taken into consideration when formulating the assessment and plan.: previous ER visits <Akil Serna DO - Last Filed: 07/04/25 07:20> Lab Data MDM Lab Attestation statement: I personally reviewed the patient's lab results. <Fadi Brennan MD - Last Filed: 07/04/25 17:49> Result diagrams: 07/04/25 07:02 07/04/25 07:02 <Akil Serna DO - Last Filed: 07/04/25 07:20> Labs: Lab Results 07/04/25 07/04/25 Range/Units 07:02 07:49 WBC 6.2 (4.5-10.0) K/mm3 RBC 4.48 (4.2-5.4) M/mm3 Hgb 14.1 (12.0-15.0) g/dL Hct 41.0 (37.0-47.0) % MCV 91.5 (80-100) fl MCH 31.5 (26-34) pg MCHC 34.4 (32-36) g/dl RDW 12.1 (11.5-14.5) % Plt Count 280 (150-375) k/mm3 MPV 10.7 H (7.4-10.4) fl Immature Gran % (Auto) 0.2 (0-0.5) % Neut % (Auto) 72.3 (45.5-73.1) % Lymph % (Auto) 19.5 (18.3-44.2) % [place] % (Auto) 6.8 (2.6-8.5) % Eos % (Auto) 0.5 (0-4.4) % Baso % (Auto) 0.7 (0.2-1.2) % Lymph # (Auto) 1.20 (0.9-3.2) K/mm3 [place] # (Auto) 0.4 (0.1-0.6) K/mm3 Eos # (Auto) 0.0 (0-0.3) K/mm3 Baso # (Auto) 0.0 (0.0-0.1) K/mm3 Abs Immat Gran (auto) 0.01 (0.00-0.031) K/mm3 Absolute Neuts (auto) 4.5 (1.3-6.7) K/mm3 Absolute Nucleated RBC 0.000 (0.0-0.012) K/mm3 Nucleated RBC % 0.0 (0.0-0.2) % PT 13.4 (11.1-14.7) Seconds INR 1.0 APTT 25.3 (22.3-36.8) Seconds Sodium 137 (137-145) mmol/L Potassium 3.7 (3.4-5.0) mmol/L Chloride 106 (98-107) mmol/L Carbon Dioxide 25 (22-30) mmol/L Anion Gap 6 (4-12) mmol/L BUN 18 H D (7-17) mg/dL Creatinine 0.53 L (0.7-1.0) mg/dL Estim Creat Clear Calc 90 ml/min Estimated GFR > 60 (59 - ) Glucose 111 H (65-110) mg/dL Lactic Acid 1.1 (0.7-2.0) mmol/L Calcium 9.3 (8.4-10.2) mg/dL Magnesium 1.7 (1.6-2.3) mg/dL Total Bilirubin 0.6 (0.2-1.3) mg/dL AST 18 (14-36) U/L ALT 17 (6-35) U/L Alkaline Phosphatase 55 (38-126) U/L Total Creatine Kinase 36 (30-135) U/L Troponin I < 0.012 (0.000-0.034) ng/mL Total Protein 6.9 (6.3-8.2) g/dL Albumin 4.2 (3.5-5.1) g/dL Lipase 56 (23-300) U/L TSH (Reflex) 2.000 (0.465-4.68) uIU/mL Urine Color Yellow (Yellow) Urine Appearance Cloudy H (Clear) Urine pH 7.5 (5.0-9.0) Ur Specific [place] 1.018 (1.001-1.035) Urine Protein Negative (Negative) mg/dL Urine Glucose (UA) Negative (Negative) mg/dL Urine Ketones 2+ H (Negative) mg/dL Ur Blood (Man) Negative (Negative) Urine Nitrate Negative (Negative) Urine Bilirubin Negative (Negative) Urine Urobilinogen 0.2 (<2.0) mg/dL Add Ur Microanalysis Reviewed Leukocyte Esterase Rfl 1+ H (Negative) ROLLY/UL Urine RBC 6-10 H (0-2) /hpf Urine WBC 6-10 H (0-3) /hpf Ur Squamous Epith Cells Many H (Few) /hpf Urine Bacteria Rare /hpf Urine Casts 0-2 Urine Mucus Present /lpf Urine Opiates Screen Positive A (Negative) Urine Methadone Screen Negative (Negative) Ur Barbiturates Screen Negative (Negative) Ur Phencyclidine Scrn Negative (Negative) Ur Amphetamine Screen Negative (Negative) U Benzodiazepines Scrn Negative (Negative) Urine Cocaine Screen Negative (Negative) U Cannabinoids Screen Negative (Negative) Ethyl Alcohol < 10 (<10) mg/dL Influenza A (RT-PCR) Negative (Negative) Influenza B (RT-PCR) Negative (Negative) RSV (RT-PCR) Negative (Negative) SARS-CoV-2 RNA (RT-PCR) Negative (Negative) <Akil Serna, DO - Last Filed: 07/04/25 07:20> Lab Results 07/04/25 07/04/25 Range/Units 07:02 07:49 WBC 6.2 (4.5-10.0) K/mm3 RBC 4.48 (4.2-5.4) M/mm3 Hgb 14.1 (12.0-15.0) g/dL Hct 41.0 (37.0-47.0) % MCV 91.5 (80-100) fl MCH 31.5 (26-34) pg MCHC 34.4 (32-36) g/dl RDW 12.1 (11.5-14.5) % Plt Count 280 (150-375) k/mm3 MPV 10.7 H (7.4-10.4) fl Immature Gran % (Auto) 0.2 (0-0.5) % Neut % (Auto) 72.3 (45.5-73.1) % Lymph % (Auto) 19.5 (18.3-44.2) % [place] % (Auto) 6.8 (2.6-8.5) % Eos % (Auto) 0.5 (0-4.4) % Baso % (Auto) 0.7 (0.2-1.2) % Lymph # (Auto) 1.20 (0.9-3.2) K/mm3 [place] # (Auto) 0.4 (0.1-0.6) K/mm3 Eos # (Auto) 0.0 (0-0.3) K/mm3 Baso # (Auto) 0.0 (0.0-0.1) K/mm3 Abs Immat Gran (auto) 0.01 (0.00-0.031) K/mm3 Absolute Neuts (auto) 4.5 (1.3-6.7) K/mm3 Absolute Nucleated RBC 0.000 (0.0-0.012) K/mm3 Nucleated RBC % 0.0 (0.0-0.2) % PT 13.4 (11.1-14.7) Seconds INR 1.0 APTT 25.3 (22.3-36.8) Seconds Sodium 137 (137-145) mmol/L Potassium 3.7 (3.4-5.0) mmol/L Chloride 106 (98-107) mmol/L Carbon Dioxide 25 (22-30) mmol/L Anion Gap 6 (4-12) mmol/L BUN 18 H D (7-17) mg/dL Creatinine 0.53 L (0.7-1.0) mg/dL Estim Creat Clear Calc 90 ml/min Estimated GFR > 60 (59 - ) Glucose 111 H (65-110) mg/dL Lactic Acid 1.1 (0.7-2.0) mmol/L Calcium 9.3 (8.4-10.2) mg/dL Magnesium 1.7 (1.6-2.3) mg/dL Total Bilirubin 0.6 (0.2-1.3) mg/dL AST 18 (14-36) U/L ALT 17 (6-35) U/L Alkaline Phosphatase 55 (38-126) U/L Total Creatine Kinase 36 (30-135) U/L Troponin I < 0.012 (0.000-0.034) ng/mL Total Protein 6.9 (6.3-8.2) g/dL Albumin 4.2 (3.5-5.1) g/dL Lipase 56 (23-300) U/L TSH (Reflex) 2.000 (0.465-4.68) uIU/mL Urine Color Yellow (Yellow) Urine Appearance Cloudy H (Clear) Urine pH 7.5 (5.0-9.0) Ur Specific [place] 1.018 (1.001-1.035) Urine Protein Negative (Negative) mg/dL Urine Glucose (UA) Negative (Negative) mg/dL Urine Ketones 2+ H (Negative) mg/dL Ur Blood (Man) Negative (Negative) Urine Nitrate Negative (Negative) Urine Bilirubin Negative (Negative) Urine Urobilinogen 0.2 (<2.0) mg/dL Add Ur Microanalysis Reviewed Leukocyte Esterase Rfl 1+ H (Negative) ROLLY/UL Urine RBC 6-10 H (0-2) /hpf Urine WBC 6-10 H (0-3) /hpf Ur Squamous Epith Cells Many H (Few) /hpf Urine Bacteria Rare /hpf Urine Casts 0-2 Urine Mucus Present /lpf Urine Opiates Screen Positive A (Negative) Urine Methadone Screen Negative (Negative) Ur Barbiturates Screen Negative (Negative) Ur Phencyclidine Scrn Negative (Negative) Ur Amphetamine Screen Negative (Negative) U Benzodiazepines Scrn Negative (Negative) Urine Cocaine Screen Negative (Negative) U Cannabinoids Screen Negative (Negative) Ethyl Alcohol < 10 (<10) mg/dL Influenza A (RT-PCR) Negative (Negative) Influenza B (RT-PCR) Negative (Negative) RSV (RT-PCR) Negative (Negative) SARS-CoV-2 RNA (RT-PCR) Negative (Negative) <Fadi Brennan MD - Last Filed: 07/04/25 17:49> ABG Data ABG results: 07/04/25 07:02 VBG pH 7.453 H* VBG pCO2 33.4 L VBG pO2 38.4 VBG HCO3 22.8 L O2 Delivery Device Room air O2 Liters/Min Not Reportable FiO2 21 <Akil Serna DO - Last Filed: 07/04/25 07:20> 07/04/25 07:02 VBG pH 7.453 H* VBG pCO2 33.4 L VBG pO2 38.4 VBG HCO3 22.8 L O2 Delivery Device Room air O2 Liters/Min Not Reportable FiO2 21 <Fadi Brennan MD - Last Filed: 07/04/25 17:49> Imaging Data Radiologist's impression: ITS Impressions Head CT 07/04/25 07:04 IMPRESSION: 1. No acute intracranial findings. Chest X-Ray 07/04/25 07:19 IMPRESSION: 1. No acute cardiopulmonary findings given portable technique. Head/Neck CTA 07/04/25 08:25 IMPRESSION: 1. Mild nonspecific cerebral white matter disease, which likely represents chronic small vessel ischemic disease. 2. No aneurysm or significant intracranial arterial stenosis. 3. 0% stenosis of the proximal internal carotid arteries relative to normal distal artery lumen diameters (NASCET criteria). 4. Anterior fusion procedure in cervical spine with failed fusion at C5-C6. 5. Chronic sinusitis. <DO Dilma Mancia Last Filed: 07/04/25 07:20> ITS Impressions Head CT 07/04/25 07:04 IMPRESSION: 1. No acute intracranial findings. Chest X-Ray 07/04/25 07:19 IMPRESSION: 1. No acute cardiopulmonary findings given portable technique. Head/Neck CTA 07/04/25 08:25 IMPRESSION: 1. Mild nonspecific cerebral white matter disease, which likely represents chronic small vessel ischemic disease. 2. No aneurysm or significant intracranial arterial stenosis. 3. 0% stenosis of the proximal internal carotid arteries relative to normal distal artery lumen diameters (NASCET criteria). 4. Anterior fusion procedure in cervical spine with failed fusion at C5-C6. 5. Chronic sinusitis. <Fadi Brennan MD - Last Filed: 07/04/25 17:49> Discharge Plan Discharge Clinical Impression: Confusion <Akil Serna DO - Last Filed: 07/04/25 07:20> Patient Disposition: Still a Patient <Akil Serna DO - Last Filed: 07/04/25 07:20> Condition: Stable <Akil Serna DO - Last Filed: 07/04/25 07:20> Quality Stroke Date of last known normal: 07/03/25 <Akil Serna DO - Last Filed: 07/04/25 07:20> Time of last known normal: 15:00 <Akil Serna DO - Last Filed: 07/04/25 07:20> Stroke Scale Stroke Scale 1: Stroke scale date:: 07/04/25 <Akil Serna DO - Last Filed: 07/04/25 07:20> Stroke scale time:: 18:15 <Akil Serna DO - Last Filed: 07/04/25 07:20> 1a Level of consciousness: alert-0 <Akil Serna DO - Last Filed: 07/04/25 07:20> 1b Level of consciousness questions: answers both correctly-0 <Akil Serna DO - Last Filed: 07/04/25 07:20> 1c Level of consciousness commands: obeys both correctly-0 <Akil Serna DO - Last Filed: 07/04/25 07:20> 2 Best gaze: normal-0 <Akil Serna DO - Last Filed: 07/04/25 07:20> 3 Visual: no visual loss-0 <Akil Serna DO - Last Filed: 07/04/25 07:20> 4 Facial palsy: normal-0 <Akil Serna DO - Last Filed: 07/04/25 07:20> 5a Motor: left arm: no drift-0 <Akil Serna DO - Last Filed: 07/04/25 07:20> 5b Motor: right arm: no drift-0 <Akil Serna DO - Last Filed: 07/04/25 07:20> 6a Motor: left leg: no drift-0 <Akil Serna DO - Last Filed: 07/04/25 07:20> 6b Motor: right leg: no drift-0 <Akil Serna DO - Last Filed: 07/04/25 07:20> 7 Limb ataxia: absent-0 <Akil Serna DO - Last Filed: 07/04/25 07:20> 8 Sensory: normal-0 <Akil Serna DO - Last Filed: 07/04/25 07:20> 9 Best language: no aphasia-0 <Akil Serna DO - Last Filed: 07/04/25 07:20> 10 Dysarthria: normal-0 <Akil Serna DO - Last Filed: 07/04/25 07:20> 11 Extinction and inattention: no abnormality-0 <Akil Serna DO - Last Filed: 07/04/25 07:20> Level:: 0 <Akil Serna DO - Last Filed: 07/04/25 07:20> 0 <Fadi Brennan MD - Last Filed: 07/04/25 17:49>
--- OUTSIDE RECORDS SUMMARY | 2025-07-04 06:53 | XMS_ITS | Encounter Summary ---
Author Organization [facility] Healthcare Address [address] [place] [place] [address] Care Team Providers Care Lobster Catcher Name Role Phone Felicitas Samuel MD Primary Care Provider + Reanna Polanco RN Unavailable Unavailab Rohan Salvador MD Primary Care Provider Peyman Ortega MD Primary Care Provider Sera Morley MD Unavailable [phone] Reason for Visit * Reason Onset Date Comments CALL BACK 03/21/2018 Encounter Details Date Type Department Care Team (Late st Contact Info) Description 03/21/2018 Telephone [facility] [address] [place] [address] Nancy Fernandez MD [address] [facility] [id number] [place] [address] CALL BACK Social History Tobacco Use Types Packs/Day Years Used Date Smoking Tobacco: Never Smokeless Tobacco: Never Comments Unknown Sex and Gender Information Value Date Recorded Sex Assigned at Not on file Legal Sex Female 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 [address] [place] [address] PCP - General Family Practice 05/13/24 Reanna Polanco RN Registered Nurse 07/07/19 Sera Morley MD [address] [facility] [address] [place] [address] Referring Physician Gynecology 08/08/24 documented as of this encounter
--- OUTSIDE RECORDS SUMMARY | 2025-07-04 06:54 | XMS_ITS | Clinical Summary ---
Author Organization [facility] Address [address] [facility] [place] [address] Care Team Providers Care Crm Specialist Name Role Phone Peyman Ortega MD Primary Care Provider Source Comments [facility],non-[facility] Affiliates and Associated Physician Practices is amultiple site organization consisting of ambulatory clinics and hospital sitesin [place], [place] and [place]. This disclosure is being madepursuant to the Care Everywhere program and may not contain all information available regarding this patient. Last updated 18.[facility] Allergies Active Allergy Reactions Criticality Noted Date [...] by mouth once daily Active HYDROcodone-bianca taminophen (Orestes) 7.5-325 MG tablet Take 1 (one) tablet [...] (08/15/2023): Added automatically from request for surgery [id number] Chronic use of opiate drug for therapeutic purpo se 11/19/2018 08/15/2023 Depression 09/29/2015 08/15/2023 Arthralgia of hip 09/29/2013 08/15/2023 Fibromyalgia 06/21/2010 08/15/2023 Generalized osteoarthritis 06/21/201008/15 Encounters Date Type Department Care Team Description 06/03/2025 Travel from Last 3 Months Immunizations Immunization Administration Dates Next Due INFLUENZA [...] Years Used Date Smoking Tobacco: Former Cigarettes 0 Q uit: 1984 Passive Smoke Exposure: Never [...] Care Team (Late st Contact Info) Description 08/25/2025 2:40 PM COMMUNITY MENTAL HEALTH WORKER Office Visit [facility] - PHARMACIST IN CHARGE [address] [place] [address] Valentina Hamm MD [address] [facility] [address] [place] [address] Health Maintenance Due Date Last Done Comments BONE DENSITY TESTING 1960 COLOGUARD (AGES 45-75) - COLON CA SCREENING 1960 COLON MONITORING 1960 COLONOSCOPY - COLON CA SCREENING 1960 CT COLONOGRAPHY - COLON CA SCREENING 1960 Colorectal Cancer Screening 1960 FIT - COLON CA SCREENING 1960 FLEX SIG - COLON CA SCREENING 1960 LIPID TESTING 1960 MEDICARE AWV 12 MONTHS 1960 HIV SCREENING 1975 HEPATITIS C SCREENING 05/29/1978 DTAP/TDAP/TD VACCINES (1 - Tdap) 1979 Cervical Cancer Screening 1981 PAP SMEAR 1981 PAP with HPV 1990 PNEUMOCOCCAL VACCINE 50+ (1 of 1 - PCV) 2010 ZOSTER VACCINE (1 of 2) 2010 COVID-19 VACCINE ( season) 2025 05/12/2023, 04/15/2022, 11/06/2021, Additional history exists INFLUENZA [...] CAMARENA Subscriber ID:Not on file (Home) Address: [address] [place] [id number] Payer ID:Not on file Group ID:Not on file Type:Self Pay Address: [place], [place] MEDICARE Care Teams Crm Specialist Relationship Specialty Start Date End Date Peyman Ortega MD [address] [facility] [address] [facility] [place] [address] PCP - General Family Medicine 04/22/24
--- OUTSIDE RECORDS SUMMARY | 2025-07-04 06:54 | XMS_ITS | Clinical Summary ---
Author Organization [facility] Address [address] [place] [address] Care Team Providers Care Roller Mill Tender Name Role Phone Reanna Polanco RN Unavailable Unavailab Peyman Carvajal MD Primary Care Provider Sera Morley MD Unavailable [phone] Allergies Active Allergy Reactions Criticality Noted Date Comments Adhesive Rash,Muscle pain,Urticaria Medium 09/09/2024 Athletic tape Capsaicin Other (See comments) Low 2024 intolerable burning Pdf-Nytryumkx-Wsijcrozifj en Other (See comments) Medium 11/14/2021 Decongestant Capsule Other (See comments) Low 06/05/2011 bladder spasms with decongestants Pseudoephedrine Other (See comments) Medium 05/04/2020 Bladder spasm Sulfa (Sulfonamide Antibiotics) Unknown Medium 11/14/2021 Medications estradiol-norethi ndrone (ACTIVELLA) 1-0.5 mg per tablet Take 1 tablet by mouth nightly 11/15/19 18 Active montelukast (SINGULAIR) 10 mg tabletIndications :Seasonal Allergic Rhinitis Take 1 tablet (10 mg total) by mouth nightly 04/13/20 17 Active ascorbic acid (VITAMIN C) 1,000 mg tabletIndications :Vitamin C Deficiency Take 1 tablet (1,000 mg total) by mouth every morning Active ALPHA LIPOIC ACID ORAL Take 550 mg by mouth every morning Active CALCIUM CARBONATE-VITAMIN D3 ORAL Take 1 tablet by mouth 2 (two) times a day Calcium Carbonate 1,200 mg with Vitamin D 1,000 international units take [address] (CYMBALTA) 60 mg capsuleIndication s:Anxiety with Depression Take 1 capsule (60 mg total) by mouth 2 (two) times a day Active cannabidiol, CBD, (EPIDIOLEX) 100 mg/mL solution Take 5 mg/kg by mouth 2 (two) times a day as needed CBD Active magnesium gluconate 200 mg tabletIndications :hypomagnesemia Take [...] (REMERON) 30 mg tablet 01/08/20 25 Active ondansetron ODT (ZOFRAN-ODT) 4 mg disintegrating tablet Take 1 tablet (4 mg total) by mouth every 8 (eight) hours as needed for nausea or vomiting 20 tablet 3 04/20/20 25 Active metoprolol XL (TOPROL-XL) 25 mg extended release tablet Take 1 tablet (25 mg total) by mouth daily 30 tablet 5 06/03/20 25 Active oxyCODONE-acetami nophen (PERCOCET) 7.5-325 mg per tabletIndications :Pain Take 1 tablet by mouth every 6 (six) hours as needed for pain 120 tablet 06/29/20 Active oxyCODONE-acetami nophen (PERCOCET) 7.5-325 mg per tabletIndications :Pain Take 1 tablet by mouth every 6 (six) hours as needed for pain 120 tablet 05/25/20 25 025 Discontin ued(Reord er) Active Problems Problem Noted Date Diagnosed Date Paroxysmal SVT (supraventricular tachycardia) PAC (premature atrial contraction) 04/07/2025 Other spondylosis with radiculopathy, lumbar reg ion 11/27/2023 Cervical post-laminectomy syndrome 10/31/2022 Cervical spinal stenosis 08/09/2022 Osteoporosis 08/09/2022 GERD (gastroesophageal reflux disease) 3 S/P cervical discectomy 08/09/2022 Spinal stenosis of cervical region 07/07/2022 Overview (10/18/2023): Added automatically from request for surgery [id number] Added automatically from request for surgery [id number] Rotoscoliosis 11/30/2020 Sacroiliac joint dysfunction 11/30/2020 Muscle [...] Encounters Date Type Department Care Team Description 06/18/2025 Telephone [facility] Medicine Cardiology [address] [facility] [address] [place] [address] [place] [address] Mateusz Upton MD 06/18/2025 Telephone [facility] Medicine Cardiology [address] [facility] [address] [place] [address] [place] [address] Mateusz Upton MD 04/08/2025 Orders Only [facility] [place] [facility] [address] [facility] [address] [place] [address] Nancy Fernandez MD 04/08/2025 Orders Only [facility] Anesthesia [address] [place] [address] Nancy Fernandez MD from Last 3 Months Immunizations Immunization Administration Dates Next Due Influenza, Quadrivalent, Spl it, Intramuscular 05/05/2019 Influenza, Quadrivalent, Spl it, Preservative Free, Intramuscular 05/02/2021,05/04/2020,04/18/2018 Influenza, Trivalent, IM (MDV) 06/22/2014 Influenza, Unspecified 04/28/2022 Tdap 04/18/2018 Surgical History Surgery Date Site/Laterality Comments WI UNLISTED LAPAROSCOPY PX INTESTINE XCP RECTUM Intestinal [...] on file Legal Sex Female 2:03 AM ESTERS AND EMULSIFIERS SUPERVISOR Gender Identity Female 08/26/2020 6:26 AM ESTERS AND EMULSIFIERS SUPERVISOR Sexual Orientation Straight 08/26/2020 6: 26 AM ESTERS AND EMULSIFIERS SUPERVISOR Last Filed Vital Signs Vital Sign Reading [...] Depression Screening 1960 Hepatitis C Screening 1960 Osteoporosis Screening-Bone Density Scan 1960 Hepatitis B Screening 1978 Pneumococcal vaccine 65+ (1 of 1 - PCV) 2010 Zoster Vaccine (1 of 2) 2010 Fall Risk Assessment 08/12/2023 08/12/2022 Covid-19 Vaccine (5 - 2024-2 6 season) 2025 11/06/2021, 05/05/2021, 10/22/2020, Additional history exists Influenza Vaccine (#1) 2025 2, 05/02/2021, 05/04/2020, Additional history exists Well Visit 65+ 2025 Breast Cancer Screening-Mammogram 07/08/2025 07/08/2024, 07/08/2024, 05/16/2023 DTaP/Tdap/Td Vaccine (3 - Td or Tdap) 04/18/2028 04/18/2018, 12/13/2006, 08/12/1990 Goals Goal Patient Goal Type Associated Problems Recent Progress Patient-Stated? Author CCM Chronic Pain Care Plan Chronic Care Management Worsening( 1:10 PM CDT) No Bessy Mancuso, RN Note: Problem: Chronic Pain Goals: 1. Minimize further functional decline 2. Maximize quality of life 3. Control pain Strategies: - Activity/exercise program recommendation - Conservative stepwise pain medicine strategy with multi-disciplinary approach - Recommend healthy lifestyle strategies and compensatory methods as needed Medical Devices Implanted Type Area Manager Service Desk Device Identifier Shelf Expiration Date Model / Serial / Lot Ray Right: Eye Musculoskeletal Transplant [id number] Frozen Spine 7d Lordotic Trapezoid Spacer Allograft [id number] - [id number] - [id number] Implanted:Qty: 1 on 08/09/2022 by Olivier Marion MD at [facility] N/A: Spine Cervical Musculoskeletal Transplant [id number] 05/18/2026 [id number] / [id number] / Musculoskeletal Transplant [id number] Frozen Spine 7d Lordotic Trapezoid Spacer Allograft 182719 - [id number] - [id number] Implanted:Qty: 1 on 08/09/2022 by Olivier Marion MD at [facility] N/A: Spine Cervical Musculoskeletal Transplant [id number] 04/24/2026 [id number] / [id number] / Musculoskeletal Transplant [id number] Frozen Spine 7d Lordotic Trapezoid Spacer Allograft 073041 - [id number] - [id number] Implanted:Qty: 1 on 08/09/2022 by Olivier Marion MD at [facility] N/A: Spine Cervical Musculoskeletal Transplant [id number] 12/12/2026 [id number] / [id number] / [employer] 4mm 16mm Fix Screw Bone [id number] - [id number] Implanted:Qty: 8 on 08/09/2022 by Olivier Marion MD at [facility] N/A: Spine Cervical [employer] [id number] / / [employer] C-Pancho Maxan 51mm Level 3 Fix Spine Cervical Anterior Plate Bone [id number] - [id number] Implanted:Qty: 1 on 08/09/2022 by Olivier Marion MD at [facility] N/A: Spine Cervical [employer] [id number] / / [employer] Eviva 13cm Identifier Biopsy Site [id number] - [id number] Implanted:Qty: 1 on 09/18/2024 at [facility] Left: Breast [employer] [id number] 03/03/2025 DARIANA-EV CARMEN-13 / / [id number] Insurance MEDICARE [facility] Address: [address] [address] [place] [address] [facility] MEDICARE [facility] Advance Directives For more information, please contact: [phone] * Full Code (Latest Code Status on File) Date Activated Date Inactivated Comments 08/09/2022 11:03 PM 08/12/2022 9:06 PM Care Teams Roller Mill Tender Relationship Specialty Start Date End Date Peyman Ortega MD [facility] [facility] [address] [place] [address] PCP - General Family Practice 05/13/24 Reanna Polanco RN Registered Nurse 07/07/19 Sera Morley MD [address] [place] [address] Referring Physician Gynecology 08/08/24
--- OUTSIDE RECORDS SUMMARY | 2025-07-04 06:54 | XMS_ITS | Encounter Summary ---
Author Organization [facility] Healthcare Address [address] [place] [address] Care Team Providers Care Pipe Fitter Helper Name Role Phone Reanna Polanco RN Unavailable Unavailab Rohan Salvador MD Primary Care Provider Peyman Ortega MD Primary Care Provider Sera Morley MD Unavailable [phone] Encounter Details Date Type Department Care Team (Late st Contact Info) Description 11/04/2020 Telephone [facility] Radiology [address] [place] [address] Nancy Fernandez MD [phone] [place], [place] [id number] Social History Tobacco Use Types Packs/Day Years [...] on file Legal Sex Female 2:03 AM ZOO DIRECTOR Gender Identity Female 08/26/2020 6:26 AM ZOO DIRECTOR Sexual Orientation Straight 08/26/2020 6: 26 AM ZOO DIRECTOR documented as of this encounter Plan of [...] on filedocumented in this encounter Care Teams Pipe Fitter Helper Relationship Specialty Start Date End Date Rohan Rothman MD [address] [place] [address] PCP - General 07/20/20 05/12/24 Peyman Ortega MD [address] [facility] [address] [place], [place] [id number] PCP - General Family Practice 05/13/24 Reanna Polanco RN Registered Nurse 07/07/19 Sera Morley MD [address] [facility] [address] [place], [place] [id number] Referring Physician Gynecology 08/08/24 documented as of this encounter
--- OUTSIDE RECORDS SUMMARY | 2025-07-04 06:54 | XMS_ITS | Clinical Summary ---
Author Organization [facility] Address [address] [place] [address] Care Team Providers Care Labor Arbitrator Name Role Phone Unavailable Primary Care Provider Unavailabl e Encounters Date Type Department Care Team Description 06/16/2025 External Device Data ST[facility] ABSTRACTION Provider, Abstract 05/20/2025 External Device Data ST[facility] ABSTRACTION Provider, Abstract 05/19/2025 External Device Data ST[facility] ABSTRACTION Provider, Abstract 04/14/2025 External Device Data STL ABSTRACTION Provider, Abstract from Last 3 Months Social History Tobacco Use Types Packs/Day Years Used Date Smoking Tobacco: Never Assessed Comments Unknown Sex and Gender Information Value Date Recorded Sex Assigned at Not on file Legal Sex Female 6:44 PM TRIMMING INSPECTOR Gender Identity Not on file Sexual Orientation Not on file Plan of Treatment Health Maintenance Due Date Last Done Comments COLORECTAL SCREENING 2005 Colorectal Cancer Screening 2005 FIT-DNA Q 3 years 2005 FIT/FOBT Q 1 year 2005 Flex Sig/CT Colonography Q 5 years 2005 PNEUMOCOCCAL VACCINE 50+ YEA RS (1 of 1 - PCV) 2010 ZOSTER VACCINE (1 of 2) 2010 INFLUENZA VACCINE (#1) 2025 , 05/04/2020, 05/05/2019, Additional history exists OSTEOPOROSIS SCREENING 2025 BREAST CANCER SCREENING 08/07/2025 08/07/19, 07/08/2024, 05/16/2023, Additional history exists DTAP/TDAP/TD VACCINES (2 - T d or Tdap) 04/18/2028 04/18/2018 RSV VACCINE (60+ or ) (1 - 1-dose 75+ series) 2035 Procedures Procedure Name Priority Date/Time Associated Diagnosis Comments MAMMO DIAGNOSTIC UNI LEFT W OR WO CAD Routine 08/07/2024 1:23 PM TRIMMING INSPECTOR Abnormal mammogram from Last 3 Months or Most Recently Relevant to Health Maintenance Results * (ABNORMAL) MAMMO DIAGNOSTIC UNI LEFT W OR WO CAD (08/07/2024 1:23 PM TRIMMING INSPECTOR) Anatomical Region Laterality Modality Breast Left Mammography 08/07/2024 1:23 PM TRIMMING INSPECTOR Narrative 08/07/2024 1:28 PM TRIMMING INSPECTOR EXAM: MAMMO DIAGNOSTIC UNI LEFT W OR [...] Most Recently Relevant to Health Maintenance Insurance [employer] OPEN ACCESS HMO
--- OUTSIDE RECORDS SUMMARY | 2025-07-04 06:54 | XMS_ITS | Encounter Summary ---
Author Organization [facility] Address [address] [place] [address] Phone Care Team Providers Care Sales Contracts Analyst Name Role Phone Reanna Polanco RN Unavailable Unavailab Peyman Carvajal MD Primary Care Provider Sera Morley MD Unavailable [phone] Encounter Details Date Type Department Care Team (Late st Contact Info) Description 06/18/2025 Telephone [facility] Medicine Cardiology [address] [facility] Advanced Medicine 8th [place] [address] [place] [address] Mateusz Upton MD [address] [facility] [address] [place] [address] Social History Tobacco Use Types Packs/Day Years Used Date Smoking Tobacco: Former Cigarettes 1 5 0 11/27/1978 - 09/28/1983 Smokeless Tobacco: Never Alcohol Use Standard Drinks/Week Comments Never 0 [...] on file Legal Sex Female 2:03 AM BOOK SHELVER Gender Identity Female 08/26/2020 6:26 AM BOOK SHELVER Sexual Orientation Straight 08/26/2020 6: 26 AM BOOK SHELVER documented as of this encounter Miscellaneous Notes * Telephone Encounter - Conchis Goodwin - 06/18/2025 12:33 PM CST Won Pt returning call to nurse to discuss when pt should come in due to heart monitor. Pls call. SHELVER documented in this encounter Plan of Treatment Not on file documented as of this encounter Goals Goal Patient Goal Type Associated Problems Recent Progress Patient-Stated? Author CCM Chronic Pain Care Plan Chronic Care Management Worsening( 1:10 PM CDT) No Bessy Mancuso, RUBIO Note: Problem: Chronic Pain Goals: 1. Minimize further functional decline 2. Maximize quality of life 3. Control pain Strategies: - Activity/exercise program recommendation - Conservative stepwise pain medicine strategy with multi-disciplinary approach - Recommend healthy lifestyle strategies and compensatory methods as needed documented as of this encounter Visit Diagnoses Not on filedocumented in this encounter Care Teams Sales Contracts Analyst Relationship Specialty Start Date End Date Peyman Ortega MD [address] [facility] [address] [place] [address] PCP - General Family Practice 05/13/24 Reanna Polanco RN Registered Nurse 07/07/19 Sera Morley MD [address] [place] [address] Referring Physician Gynecology 08/08/24 documented as of this encounter
--- OUTSIDE RECORDS SUMMARY | 2025-07-04 06:54 | XMS_ITS | Encounter Summary ---
Author Organization [facility] Healthcare Address [address] [facility] [place] [address] Care Team Providers Care Technical Illustrator Name Role Phone Felicitas Samuel MD Primary Care Provider + Reanna Polanco RN Unavailable Unavailab Rohan Salvador MD Primary Care Provider Peyman Ortega MD Primary Care Provider Sera Morley MD Unavailable [phone] Reason for Visit * Reason Onset Date Comments Prior Auth 06/11/2019 Celecoxib 200mg Encounter Details Date Type Department Care Team (Late st Contact Info) Description 06/11/2019 Telephone [facility] [place] [facility] [address] [facility] [address] [place] [address] Nancy Fernandez MD [address] [facility] [phone] [place] [address] Prior Auth (Celecoxib 200mg) Social History Tobacco Use Types Packs/Day Years Used Date Smoking Tobacco: Never Smokeless Tobacco: Never Alcohol Use Standard Drinks/Week Comments No 0 (1 standard drink = 0.6 oz pur e alcohol) Comments No Sex and Gender Information Value Date Recorded Sex Assigned at Not on file Legal Sex Female 2:03 AM PLAY BACK OPERATOR Gender Identity Female 08/26/2020 6:26 AM PLAY BACK OPERATOR Sexual Orientation Straight 08/26/2020 6: 26 AM PLAY BACK OPERATOR documented as of this encounter Plan [...] on filedocumented in this encounter Care Teams Technical Illustrator Relationship Specialty Start Date End Date Felicitas Samuel MD PCP - General 10/13/16 07/19/20 Rohan Rothman MD [address] [place] [address] PCP - General 07/20/20 05/12/24 Peyman Ortega MD [address] [facility] [address] [place] [address] PCP - General Family Practice 05/13/24 Reanna Polanco RN Registered Nurse 07/07/19 Sera Morley MD [address] [facility] [address] [place], [place] [id number] Referring Physician Gynecology 08/08/24 documented as of this encounter
--- OUTSIDE RECORDS SUMMARY | 2025-07-04 06:54 | XMS_ITS | Encounter Summary ---
Author Organization [facility] Healthcare Address [address] [facility] [place] [address] Care Team Providers Care Car Pre Cooler Name Role Phone Felicitas Samuel MD Primary Care Provider + Reanna Polanco RN Unavailable Unavailab Rohan Salvador MD Primary Care Provider Peyman Ortega MD Primary Care Provider Sera Morley MD Unavailable [phone] Encounter Details Date Type Department Care Team (Late st Contact Info) Description 01/15/[address] [facility] [place] [facility] [address] [facility] [address] [place] [address] Nancy Fernandez MD [address] [facility] [phone] [place] [address] Social History Tobacco Use Types Packs/Day Years Used Date Smoking Tobacco: Former Smokeless Tobacco: Never Alcohol Use Standard Drinks/Week Comments No 0 (1 standard drink = 0.6 oz pur e alcohol) Comments No Sex and Gender Information Value Date Recorded Sex Assigned at Not on file Legal Sex Female 2:03 AM PODIATRIC MEDICINE DOCTOR Gender Identity Female 08/26/2020 6:26 AM PODIATRIC MEDICINE DOCTOR Sexual Orientation Straight 08/26/2020 6: 26 AM PODIATRIC MEDICINE DOCTOR documented as of this encounter Plan of [...] filedocumented in this encounter Care Teams Car Pre Cooler Relationship Specialty Start Date End Date Felicitas Samuel MD PCP - General 10/13/16 07/19/20 Rohan Rothman MD [address] [place] [address] PCP - General 07/20/20 05/12/24 Peyman Ortega MD [address] [facility] [address] [place] [address] PCP - General Family Practice 05/13/24 Reanna Polanco RN Registered Nurse 07/07/19 Sera Morley MD [address] [facility] [address] [place] [address] Referring Physician Gynecology 08/08/24 documented as of this encounter
[2025-07-04] MEDS: SODIUM CHLORIDE 0.9% IV 1,000 ML 999 ML IV CONT (07:10)
[2025-07-04 07:11] LABS: Hematocrit 41.0 % (37.0-47.0); Hemoglobin 14.1 g/dL (12.0-15.0); Immature Granulocyte Percent A 0.2 % (0-0.5); Lymphocytes Absolute Auto 1.20 K/mm3 (0.9-3.2); Mean Corpuscular HGB Conc 34.4 g/dl (32-36); Mean Corpuscular Hemoglobin 31.5 pg (26-34); Mean Corpuscular Volume 91.5 fl (80-100); Nucleated Red Blood Cells Absolute Auto 0.000 K/mm3 (0.0-0.012); Nucleated Red Blood Cells Perc 0.0 % (0.0-0.2); Platelet Count Result 280 k/mm3 (150-375); Red Blood Count 4.48 M/mm3 (4.2-5.4); White Blood Count 6.2 K/mm3 (4.5-10.0)
[2025-07-04 07:12] LABS: Fractional Inspired Oxygen 21 %; HCO3 VBG 22.8 mEq/l (24.0-30.0); PCO2 VBG 33.4 mmHg (42.0-48.0); PO2 VBG 38.4 mmHg (35.0-45.0)
[2025-07-04 07:13] LABS: pH VBG 7.453 (7.300-7.400)
[2025-07-04 07:21] LABS: Alanine Aminotransferase 17 U/L (6-35); Albumin Level 4.2 g/dL (3.5-5.1); Alkaline Phosphatase 55 U/L (38-126); Anion Gap 6 mmol/L (4-12); Aspartate Amino Transferase 18 U/L (14-36); Bilirubin,Total 0.6 mg/dL (0.2-1.3); Blood Urea Nitrogen 18 mg/dL (7-17); Calcium 9.3 mg/dL (8.4-10.2); Carbon Dioxide 25 mmol/L (22-30); Chloride 106 mmol/L (98-107); Creatine Kinase 36 U/L (30-135); Estimated CRCL calculation 90 ml/min; Estimated Glomerular Filt Rate > 60; Glucose 111 mg/dL (65-110); Lipase 56 U/L (23-300); Magnesium 1.7 mg/dL (1.6-2.3); Potassium 3.7 mmol/L (3.4-5.0); Sodium 137 mmol/L (137-145); Total Protein 6.9 g/dL (6.3-8.2)
[2025-07-04 07:23] LABS: INR 1.0; Prothrombin Time 13.4 Seconds (11.1-14.7)
[2025-07-04 07:24] LABS: Partial Thromboplastin Time 25.3 Seconds (22.3-36.8)
[2025-07-04 07:33] LABS: Troponin I < 0.012 ng/mL (0.000-0.034)
[2025-07-04 07:47] LABS: Influenza A QL RT-PCR Negative (Negative); Influenza B QL RT-PCR Negative (Negative); RSV RNA, RT-PCR Negative (Negative); SARS-CoV-2 RNA PCR Negative (Negative)
[2025-07-04 08:08] LABS: Add Urine Microscopic? YES; Appearance Urine Cloudy (Clear); Glucose Urine UA Negative (Negative); Leukocyte Esterase Ur 1+ LEU/UL (Negative); Need Manual Microscopic Reviewed; Nitrate Urine Negative (Negative); Non Pathogenic Casts 0-2; Specific Grav Ur 1.018 (1.001-1.035)
[2025-07-04 08:15] LABS: Thyroid Stimulating Hormone Reflex 2.000 uIU/mL (0.465-4.68)
[2025-07-04 08:35] LABS: Cannabinoid Screen Urine Negative (Negative)
[2025-07-04] MEDS: ONDANSETRON INJ 4 MG/2 ML VIAL IV PUSH (09:27)
--- NOTE | 2025-07-04 11:25 | WPCEDHO ---
ED Hand Off Checklist All vitals saved:yes IV Site documented:yes All med administrations documented:y Triage Note Triage Note pt to ED via [facility] 07/04/25 05:47 from home with c/o confusion. EMS reports pt woke up and thought it was last year. pt is wearing a Holter monitor to catch AFIB. pt last known well was around 2200 on 07/03. pt is A+Ox2. pt states I get more lucid when I talk Allergies Sulfa (Sulfonamide Antibiotics) Allergy (Intermediate, Verified 06/14/25 19:57) Unknown capsaicin Adverse Reaction (Severe, Verified 06/14/25 19:57) burning sensation DECONGESTANT Allergy (Intermediate, Uncoded 04/01/25 06:12) BLADDER SPSAMS Family History (Last Reviewed 06/14/25 @ 20:05 by Ward Hernandez RN) Father Cerebrovascular accident Depression Anxiety Family history of blood dyscrasia Mother Family history of chronic obstructive pulmonary disease Hypertension Anxiety Depression Thyroid disorder Grandparent Family history of cardiovascular disease Acute myocardial infarction Carcinoma of colon Family history of malignant neoplasm of breast in first degree relative Breast cancer Administered/Completed Medications Discontinued Medications Sodium Chloride (Normal Saline Iv) 1,000 mls @ 999 mls/hr IV CONT .Q1H1M STA Stop: 07/04/25 07:28 Last Infusion: 07/04/25 08:15 Dose: Infused Documented By: Admin: 07/04/25 07:10 Dose: 999 mls/hr Documented By: EMILY Ondansetron HCl (Ondansetron Inj 4 Mg/2 Ml Vial) 4 mg IV PUSH ONCE STA Stop: 07/04/25 09:26 Last Admin: 07/04/25 09:27 Dose: 4 mg Documented By: GLEN Interventions/Assessments Cardiac Monitoring Start: 07/04/25 05:32 Freq: Status: Active Protocol: Document 07/04/25 06:02 ACS (Rec: 07/04/25 06:02 ACS [id number]) Web Press Operator Helper Offset Assessment Web Press Operator Helper Offset Yes Applied Pulse Rate (60-100) 69 EKG Rythm Sinus Rhythm IV / Saline Lock, Insert Start: 07/04/25 05:32 Freq: Status: Active Protocol: Document 07/04/25 05:57 ACS (Rec: 07/04/25 05:57 ACS [id number]) IV Assessment Peripheral Access Left Antecubital IV Catheter Access Initiated Before Arrival IV Insertion Date 07/04/25 IV Insertion Time 05:57 IV Site Assessment WNL IV Care and WNL Maintenance IV / Saline Lock, Insert Start: 07/04/25 05:59 Freq: STAT Status: Active Protocol: Document 07/04/25 05:59 [facility] (Rec: 07/04/25 06:01 ACS [id number]) IV Assessment Peripheral Access Left Antecubital IV Catheter Access Continued PA: Neurological Assessment Start: 07/04/25 05:32 Freq: Status: Active Protocol: Document 07/04/25 06:53 [facility] (Rec: 07/04/25 06:53 [facility] [id number]) Neurological Assessment Level of Alert Consciousness Arousable to Verbal Orientation Oriented to Person,Oriented to Place Neurological Confusion Symptoms Hallucination Type None Behavior Appropriate,Cooperative Ability to Maintain Normal Balance Last Vital Signs Temperature 98.5 F 07/04/25 05:47 Pulse Rate 90 07/04/25 09:20 Respiratory Rate 18 07/04/25 09:20 Pulse Oximetry 100 07/04/25 09:20 Blood Pressure 114/83 07/04/25 09:20 Blood Pressure Mean 93 07/04/25 09:20 Blood Pressure Position Supine 07/04/25 09:20 Oxygen Delivery Room Air 07/04/25 05:47 Weight 71.6 kg 07/04/25 05:47 Last Result - Abnormals Only MPV 10.7 fl (7.4-10.4) H 07/04/25 07:02 VBG pH 7.453 (7.300-7.400) H* 07/04/25 07:02 VBG pCO2 33.4 mmHg (42.0-48.0) L 07/04/25 07:02 VBG HCO3 22.8 mEq/l (24.0-30.0) L 07/04/25 07:02 BUN 18 mg/dL (7-17) H D 07/04/25 07:02 Creatinine 0.53 mg/dL (0.7-1.0) L 07/04/25 07:02 Glucose 111 mg/dL (65-110) H 07/04/25 07:02 Urine Appearance Cloudy (Clear) H 07/04/25 07:49 Urine Ketones 2+ mg/dL (Negative) H 07/04/25 07:49 Leukocyte Esterase Rfl 1+ ROLLY/UL (Negative) H 07/04/25 07:49 Urine RBC 6-10 /hpf (0-2) H 07/04/25 07:49 Urine WBC 6-10 /hpf (0-3) H 07/04/25 07:49 Ur Squamous Epith Cells Many /hpf (Few) H 07/04/25 07:49 Urine Opiates Screen Positive (Negative) A 07/04/25 07:49 Most Recent Suicide Severity Rating Suicide Severity Rating NO RISK INDICATED 07/04/25 05:47
--- NOTE | 2025-07-04 12:08 | PM.IMHP2 ---
H&P: HPI History of Present Illness Date/Time: 07/04/25 12:08 Chief Complaint: Memory impairment Narrative: Patient is a 65-year-old female past medical history of chronic back pain due to scoliosis on [place], white coat hypertension, tachycardia with Holter monitor in place that was placed by her quantitative analyst marketing, fibromyalgia presents with onset of memory loss last night around 1:00 a.m. or 2 a.m. her son saw her wandering her house looking for her 1 year ago. Patient does not have any recollection of this and does not recall when she went to bed last night. She did take a dose of [place] last night prior to bed which she normally takes for her chronic back pain. She has no history of dementia, and has no prior history of episodes similar to this. She was initially AAO times 0 on initial evaluation by EMS however did have significant improvement in the ED. On evaluation by hospitalist, she is fully AAO x3, at her baseline, and is elaborating well without any acute neurological impairments noted. CT head in the ED as well as CT angio both negative for acute pathologies. Urinalysis may suggest UTI however is likely highly contaminated with squamous epithelium. Patient also does not have dysuria or other symptoms. Neurology has been consulted, MRI, echo, EEG have all been ordered. She is requesting resumption of her pain medication as well as something for nausea which she is feeling this morning. Otherwise no other significant symptoms. Labs were reviewed and largely unremarkable. Vitals are stable. Urine toxicology only positive for opiates which as above, patient is on for chronic back pain. 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 Vaginal delivery x2 Missed x1 Endometriosis Arthritis Anxiety Fibromyalgia Scoliosis Surgical History Surgical History History of D&C (~07/21/24) D&C hysteroscopy with resection of polyp S/P cervical spinal fusion (~08/09/22) C3-6 [place] teeth extracted 1982 History of endometrial ablation 1980s History of dilation and curettage 1988 History of laparoscopy early , endometriosis Family History Family History Father Cerebrovascular accident Depression Anxiety Family history of blood dyscrasia Mother Family history of chronic obstructive pulmonary disease Hypertension Anxiety Depression Thyroid disorder Grandparent Family history of cardiovascular disease Acute myocardial infarction Carcinoma of colon Family history of malignant neoplasm of breast in first degree relative Breast cancer Social History Social History Smoking packs per day: 1 Smoking cigarettes per day: 20.0 Years smoked: 2 Smoking pack-years: 2.00 Smoking status: Former smoker Tobacco type: cigarettes Second hand tobacco smoke exposure: No Smoking end date: 07/30/82 Alcohol intake: former Substance use: never Substance use type: does not use Other substance usage details: DURING COLLEGE YRS Lack of Transportation: No Lack of Food: Never True Current Housing: I Have Housing Concerned About Future Housing: No Difficulty Paying Gas/Electric Bills: No Difficulty Paying for Meds: No Currently Unemployed: No Education: Bachelor's Degree Difficulty w/ Childcare or Family Care: No Living arrangements: with family Additional living arrangements comments: Occupation/Education: retired Gender identity (if verbalized by the patient): Female Sexual Orientation (if Verbalized by the Patient): Straight or Heterosexual Spiritual care concerns: No Meds Home Medications and Allergies Home Medications ?Medication ?Instructions ?Recorded ?Confirmed ?Type alpha lipoic acid 550 mg PO DAILY 04/19/20 06/14/25 History magnesium citrate 2 cap PO Q12H 04/19/20 06/14/25 History methocarbamol 500 mg tablet 1,000 mg PO Q4H PRN muscle spasm 04/19/20 06/14/25 History calcium carbonate (Calcium 600) 1,200 mg PO Q12H 04/25/21 06/14/25 History famotidine 10 mg tablet 10 mg PO HS 05/15/22 06/14/25 History duloxetine 60 mg capsule,delayed 60 mg PO Q12H 03/17/24 06/14/25 History release estradiol-norethindrone acet 1 1 tablet PO HS 03/17/24 06/14/25 History mg-0.5 mg tablet acetaminophen 650 mg 650 mg PO Q12H PRN pain 05/15/24 06/14/25 History tablet,extended release (Tylenol 8 Hour) meloxicam 15 mg tablet 15 mg PO HS 05/15/24 06/14/25 History vitamin B complex (Vitamins B 1 cap PO DAILY 07/14/24 06/14/25 History Complex capsule) hydrocortisone 2.5 % topical 1 applic topical Q12H 07/22/24 06/14/25 History ointment lurasidone 80 mg tablet 80 mg PO QPM 11/03/24 06/14/25 History estradiol 10 mcg vaginal tablet 10 mcg vaginal .twice a week 11/08/24 06/14/25 History amitriptyline 50 mg tablet 50 mg PO HS 06/14/25 06/14/25 History ascorbic acid (vitamin C) 500 mg 500 mg PO DAILY 06/14/25 06/14/25 History tablet (Vitamin C) hydrocodone 10 mg-acetaminophen 1 tablet PO Q6H PRN pain 06/14/25 06/14/25 History 325 mg tablet levomefolate 7.5 mg-algal oil 1 cap PO QPM 06/14/25 06/14/25 History 90.314 mg capsule (L-Methylfolate Forte) montelukast 10 mg tablet 10 mg PO HS 06/14/25 06/14/25 History (Singulair) metoprolol tartrate 25 mg tablet 25 mg PO Q12HR #60 tabs 06/15/25 Rx Allergies Allergy/AdvReac Type Severity Reaction Status Date / Time Sulfa (Sulfonamide Allergy Intermediate Unknown Verified 06/14/25 19:57 Antibiotics) capsaicin AdvReac Severe burning Verified 06/14/25 19:57 sensation DECONGESTANT Allergy Intermediate BLADDER Uncoded 04/01/25 06:12 SPSAMS Vital Signs Vital Signs - 24 hr 07/04/25 05:47 07/04/25 06:02 07/04/25 06:02 Temperature 98.5 F Pulse Rate 80 69 69 Respiratory Rate 14 20 Blood Pressure 153/83 H 147/84 H Pulse Oximetry 99 96 Oxygen Delivery Room Air 07/04/25 07:56 07/04/25 09:20 07/04/25 11:27 Temperature Pulse Rate 75 90 93 Respiratory Rate 18 18 18 Blood Pressure 143/81 H 114/83 136/81 Pulse Oximetry 100 100 99 Oxygen Delivery Exam Narrative: CONST: No acute distress. HENMT: Head is normocephalic and atraumatic. Dry mucous membranes. No posterior oropharynx erythema. EYES: No scleral icterus. No conjunctival injection or pallor. PERRL. NECK: No meningeal signs. RESP: Able to speak in full sentences. Normal respiratory effort. CTAB. CARDIO: Regular rate. Regular rhythm. 2+ DP and radial pulses bilaterally. GI: Nondistended. No tenderness to palpation. Soft. : No CVA tenderness to palpation. SKIN: No rashes or lesions noted on exposed skin. NEURO: Oriented x3. Moves all extremities. Follows all commands appropriately. No neurological findings on exam EXTREM/MSK/BACK: No pedal edema. PSYCH: Normal affect. Results Labs Labs: Short CBC 07/04/25 Range/Units 07:02 WBC 6.2 (4.5-10.0) K/mm3 Hgb 14.1 (12.0-15.0) g/dL Hct 41.0 (37.0-47.0) % Plt Count 280 (150-375) k/mm3 BMP 07/04/25 07:02 Sodium 137 Potassium 3.7 Chloride 106 Carbon Dioxide 25 BUN 18 H D Creatinine 0.53 L Glucose 111 H Calcium 9.3 Cardiac Enzymes 07/04/25 Range/Units 07:02 Total Creatine Kinase 36 (30-135) U/L Troponin I < 0.012 (0.000-0.034) ng/mL Liver Function 07/04/25 Range/Units 07:02 Total Bilirubin 0.6 (0.2-1.3) mg/dL AST 18 (14-36) U/L ALT 17 (6-35) U/L Alkaline Phosphatase 55 (38-126) U/L Albumin 4.2 (3.5-5.1) g/dL Urine 07/04/25 Range/Units 07:49 Urine Color Yellow (Yellow) Urine Appearance Cloudy H (Clear) Urine pH 7.5 (5.0-9.0) Ur Specific [place] 1.018 (1.001-1.035) Urine Protein Negative (Negative) mg/dL Urine Glucose (UA) Negative (Negative) mg/dL Assessment and Plan Assessment and plan (1) Altered mental status: Qualifiers: Altered mental status type: unspecified Qualified Code(s): R41.82 - Altered mental status, unspecified Code(s): R41.82 - Altered mental status, unspecified Status: Acute Assessment and Plan: Patient presented with an episode that lasted approximately 1-2 hours last night of acute confusion, characterized by patient wondering her house looking for her with . In the ED, patient was much improved neurologically, without focal deficit, fully AAO x3, fully aware her had , confused as to why this may have happened. She agrees for admission as does her family to further investigate. Initial workup including CT and CTA negative. Labs unremarkable. Neurology has been brought on board. -MRI ordered -echo ordered, follow -EEG ordered, likely to be done Friday 07/06 -neurology on board, they will follow -regular neuro checks -monitor closely when giving patient doses of [place], however she is on this regularly so doubt this is acutely causing her neurological issue (2) Fibromyalgia: Code(s): M79.7 - Fibromyalgia Status: Chronic Assessment and Plan: History of fibromyalgia -reconcile meds, resume as indicated (3) Tachyarrhythmia: Code(s): R00.0 - Tachycardia, unspecified Status: Acute Assessment and Plan: Patient reports to have a Holter monitor in place she still has on her which was ordered by Cardiology here and followed by her quantitative analyst marketing at [place] to evaluate for tachycardia. No symptoms of palpitations or chest pain at this time. Patient noted to have been admitted June 14, 2025 for palpitations, weakness, dizziness. Her watch that detected elevated heart rate to the 130s. EKG at that time was sinus tachycardia with ST depressions, concern for NSTEMI. Cardiology did see, recommended 30 day event monitor which is currently in place, heparin drip was discontinued, patient was discharged. No atrial fibrillation or atrial flutter was identified during that hospitalization. -admit to telemetry -can continue to follow with Cardiology outpatient if tachycardia is not a problem during admission (4) Chronic back pain: Code(s): M54.9 - Dorsalgia, unspecified; G89.29 - Other chronic pain Status: Acute Assessment and Plan: Chronic back pain patient reports being due to scoliosis. On multiple medications, including [place], methocarbamol. Baclofen causes urinary retention per patient. -resume [place] p.r.n., monitor for changes in mental status -consider methocarbamol p.r.n. if kidneys allow, tizanidine, or other muscle relaxers that would be less likely to cause urinary retention (5) White coat syndrome without diagnosis of hypertension: Code(s): R03.0 - Elevated blood-pressure reading, without diagnosis of hypertension Status: Acute Assessment and Plan: BP stable so far -monitor BP -outpatient follow-up Plan Patient admitted for further neurological testing DVT prophylaxis: Lovenox 40 mg Diet: Regular Prior Studies I have reviewed the following patient records and this information was taken into consideration when formulating the assessment and plan.: previous labs, previous ER visits, previous hospitalizations and previous clinic visits Consultations Consultations: I have discussed the care of this pt with the consulting providers. Hospitalist MIPS Advance Care Plan I have confirmed that the patient's Advanced Care Plan is present, code status is documented, or surrogate decision maker is listed in patient medical record.: Yes Medication Reconciliation I have utilized all available resources to obtain, update and review the patients current medications (includes all prescriptions, OTC, herbals, cannabis, and nutritional supplements).: Yes
--- NOTE | 2025-07-04 12:42 | ADMGEN ---
This patient, Annette Santiago, was admitted to [facility] Surg Room 325-02. Patient/family oriented to hospital policies and general routines including ID bracelet, bed and alarms, visiting hours, pain management, procedures, bathroom and other care routines, personal items, smoking policy, room service/diet, and visiting hours. Information on how to activate the Rapid Response Team has been discussed. Patient/Family are encouraged to report perceived risks to care and to ask questions if they do not understand what they are told or what they should do.
[2025-07-04] MEDS: HYDROcodone/acetaminophen (*CRX) 10-325 MG TABLET 1 TAB PO ×2 (13:49→20:05)
--- NOTE | 2025-07-04 13:53 | WPDNEURCNPN ---
Assessment and Plan Assessment and plan (1) Confusion: Code(s): R41.0 - Disorientation, unspecified Status: Acute (2) Altered mental status: Qualifiers: Altered mental status type: unspecified Qualified Code(s): R41.82 - Altered mental status, unspecified Code(s): R41.82 - Altered mental status, unspecified Status: Acute (3) TIA (transient ischemic attack): Code(s): G45.9 - Transient cerebral ischemic attack, unspecified Status: Acute (4) Seizure disorder: Code(s): G40.909 - Epilepsy, unspecified, not intractable, without status epilepticus Status: Acute Plan 1. Change in the mental status raising the possibility of ongoing underlying mild dementia versus depression versus the new TIA what patient is concerned about. Patient is already wearing a Holter monitor to catch the atrial fibrillation but echocardiogram during this hospitalization has documented large number of bubbles crossing during the study raising the possibility of patent foramina ovale and make her likely candidate to have TIA on the basis of embolic phenomenon for that reason cardiologists have to make the decision with that she has to be own anticoagulation therapy or not or whether she needs to be referred to other facility. As far as the ongoing confusion is concerned she could have underlying depression which could also be contributing to her ongoing problems. He also need to obtain the EEG to rule out the possibility of localization-related seizure. If any further question arises please do not hesitate to contact me thank you Consult date: 07/05/25 HPI: Annette Santiago is a 65 year old female Admitted to the hospital through the emergency room for the complaints of confusion reportedly she went to bed around 3:00 p.m. and woke up at 3:00 a.m. feeling confused though by the time she came to the ER she was feeling better. Patient has been wearing the Holter monitor to catch the atrial fibrillation in addition to the previous episode of confusion there was no other symptomatology. She had been taking multiple medication as listed particularly magnesium citrate 2 capsule q.12 hours, methocarbamol 500mg each 2 of them every 4hours p.r.n., famotidine 10mg at night, duloxetine 60mg q.12 hours, meloxicam 15mg at night, lurasidone 80mg every evening, amitriptyline 50mg at night, hydrocodone 1 tab q.6 hours p.r.n., she is reportedly allergic to sulfa capsaicin and decongested. Past history is consistent with 1. Chronic continuous use of opioids 2. Supraventricular tachycardia 3. Hypertension 4. Anxiety with fibromyalgia and underlying scoliosis. 5. History of cervical spinal fusion from C3-C6 6. Years smoked 2 but former smoker and former alcohol intake. Initial lab in the ER with negative CT scan of the head, head and neck CTA without aneurysm or vascular involvement but documenting again anterior fusion procedure in the cervical spine with failed fusion at C5-C6. Chest x-ray negative. As per the further information available her son saw her bonding in the house looking for the who about 1 year ago and her not realizing or recollecting this and also unable to recall when she went to the bed on initial eval in the emergency room she was awake alert oriented times 0 but did show some significant improvement subsequently. 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 Vaginal delivery x2 Missed x1 Endometriosis Arthritis Anxiety Fibromyalgia Scoliosis Surgical History Surgical History History of D&C (~07/21/24) D&C hysteroscopy with resection of polyp S/P cervical spinal fusion (~08/09/22) C3-6 [place] teeth extracted 1982 History of endometrial ablation History of dilation and curettage 1988 History of laparoscopy early , endometriosis Family History Family History Father Cerebrovascular accident Depression Anxiety Family history of blood dyscrasia Mother Family history of chronic obstructive pulmonary disease Hypertension Anxiety Depression Thyroid disorder Grandparent Family history of cardiovascular disease Acute myocardial infarction Carcinoma of colon Family history of malignant neoplasm of breast in first degree relative Breast cancer Social History Social History Smoking packs per day: 1 Smoking cigarettes per day: 20.0 Years smoked: 2 Smoking pack-years: 2.00 Smoking status: Never smoker Tobacco type: cigarettes Second hand tobacco smoke exposure: No Smoking end date: 07/30/82 Alcohol intake: never Substance use: never Substance use type: does not use Other substance usage details: DURING COLLEGE YRS Lack of Transportation: No Lack of Food: Never True Current Housing: I Have Housing Concerned About Future Housing: No Difficulty Paying Gas/Electric Bills: No Difficulty Paying for Meds: No Currently Unemployed: No Education: Master's Degree or Higher Difficulty w/ Childcare or Family Care: No Living arrangements: with family Additional living arrangements comments: Occupation/Education: retired Gender identity (if verbalized by the patient): Female Sexual Orientation (if Verbalized by the Patient): Straight or Heterosexual Spiritual care concerns: No Meds Home Medications and Allergies Home Medications ?Medication ?Instructions ?Recorded ?Confirmed ?Type alpha lipoic acid 550 mg PO .dinner 04/19/20 07/04/25 History magnesium citrate 2 cap PO Q12H 04/19/20 07/04/25 History methocarbamol 500 mg tablet 1,000 mg PO Q4H PRN muscle spasm 04/19/20 07/04/25 History calcium carbonate (Calcium 600) 1,200 mg PO Q12H 04/25/21 07/04/25 History famotidine 10 mg tablet 10 mg PO HS 05/15/22 07/04/25 History duloxetine 60 mg capsule,delayed 60 mg PO Q12H 03/17/24 07/04/25 History release estradiol-norethindrone acet 1 1 tablet PO HS 03/17/24 07/04/25 History mg-0.5 mg tablet acetaminophen 650 mg 650 mg PO Q12H PRN pain 05/15/24 07/04/25 History tablet,extended release (Tylenol 8 Hour) meloxicam 15 mg tablet 15 mg PO HS 05/15/24 07/04/25 History vitamin B complex (Vitamins B 1 cap PO DAILY 07/14/24 07/04/25 History Complex capsule) lurasidone 80 mg tablet 80 mg PO QPM 11/03/24 07/04/25 History ascorbic acid (vitamin C) 500 mg 500 mg PO DAILY 06/14/25 07/04/25 History tablet (Vitamin C) hydrocodone 10 mg-acetaminophen 1 tablet PO Q6H PRN pain 06/14/25 07/04/25 History 325 mg tablet levomefolate 7.5 mg-algal oil 1 cap PO QPM 06/14/25 07/04/25 History 90.314 mg capsule (L-Methylfolate Forte) montelukast 10 mg tablet 10 mg PO HS 06/14/25 07/04/25 History (Singulair) metoprolol tartrate 25 mg tablet 50 mg PO DAILY 07/04/25 07/04/25 History Allergies Allergy/AdvReac Type Severity Reaction Status Date / Time Sulfa (Sulfonamide Allergy Intermediate Unknown Verified 07/04/25 13:03 Antibiotics) capsaicin AdvReac Severe burning Verified 07/04/25 13:03 sensation DECONGESTANT Allergy Intermediate BLADDER Uncoded 04/01/25 06:12 SPSAMS Vital Signs Vital Signs - 24 hr 07/04/25 05:47 07/04/25 06:02 07/04/25 06:02 Temperature 36.9 C Pulse Rate 80 69 69 Respiratory Rate 14 20 Blood Pressure 153/83 H 147/84 H Pulse Oximetry 99 96 Oxygen Delivery Room Air 07/04/25 07:56 07/04/25 09:20 07/04/25 11:27 Temperature Pulse Rate 75 90 93 Respiratory Rate 18 18 18 Blood Pressure 143/81 H 114/83 136/81 Pulse Oximetry 100 100 99 Oxygen Delivery Exam Narrative: Examination revealed her to be awake alert oriented to being in the hospital no obvious acute distress with non dysphasic or non dysarthric speech. Head normocephalic with no cranial bruits, ear nose throat examination normal, neck supple with no cervical bruit no thyromegaly no lymphadenopathy, heart regular, lungs clear to auscultation with no rhonchi or crepitations, abdomen is soft nontender with normal bowel sounds, neurological examination revealed her to be awake alert oriented x3, his speech not dysphasic not dysarthric and not dysphonic, pupils round regular reacting to light equally, extraocular movements full in vertical and horizontal gaze with no evidence of nystagmus, facial sensation intact, face symmetrical, tongue in the oral cavity with no fasciculation, and motor examination of the upper and lower extremities revealed her to have no focal motor deficit with deep tendon reflexes 1+ in upper and lower extremities proximally and distally plantar responses downgoing. Cerebellar function intact. Results Labs 07/05/25 05:50 07/05/25 05:50 Labs: Short CBC 07/04/25 Range/Units 07:02 WBC 6.2 (4.5-10.0) K/mm3 Hgb 14.1 (12.0-15.0) g/dL Hct 41.0 (37.0-47.0) % Plt Count 280 (150-375) k/mm3 BMP 07/04/25 07:02 Sodium 137 Potassium 3.7 Chloride 106 Carbon Dioxide 25 BUN 18 H D Creatinine 0.53 L Glucose 111 H Calcium 9.3 Cardiac Enzymes 07/04/25 Range/Units 07:02 Total Creatine Kinase 36 (30-135) U/L Troponin I < 0.012 (0.000-0.034) ng/mL Liver Function 07/04/25 Range/Units 07:02 Total Bilirubin 0.6 (0.2-1.3) mg/dL AST 18 (14-36) U/L ALT 17 (6-35) U/L Alkaline Phosphatase 55 (38-126) U/L Albumin 4.2 (3.5-5.1) g/dL Urine 07/04/25 Range/Units 07:49 Urine Color Yellow (Yellow) Urine Appearance Cloudy H (Clear) Urine pH 7.5 (5.0-9.0) Ur Specific [place] 1.018 (1.001-1.035) Urine Protein Negative (Negative) mg/dL Urine Glucose (UA) Negative (Negative) mg/dL
[2025-07-04] MEDS: CALCIUM CARBONATE (OSCAL) 500 MG TABLET 1000 MG PO (20:05)
[2025-07-04] MEDS: FAMOTIDINE 10 MG TABLET PO (20:05)
[2025-07-04] MEDS: METOPROLOL TARTRATE 50 MG TAB PO (20:06)
[2025-07-04] MEDS: MAGNESIUM OXIDE 400 MG TABLET PO (20:06)
[2025-07-04] MEDS: DULoxetine HCL 60 MG CAPSULE.DR PO (20:06)
[2025-07-04] MEDS: MONTELUKAST SODIUM 10 MG TABLET PO (20:06)
[2025-07-05] VITALS (7 sets, daily range): BP systolic 102–130; BP diastolic 67–96; PULSE 64–87; RESP 16–18; TEMP 36.2–36.8; O2SAT 96–100
[2025-07-05] MEDS: HYDROcodone/acetaminophen (*CRX) 10-325 MG TABLET 1 TAB PO ×4 (01:54→20:55)
[2025-07-05 06:27] LABS: Hematocrit 39.6 % (37.0-47.0); Hemoglobin 13.0 g/dL (12.0-15.0); Mean Corpuscular HGB Conc 32.8 g/dl (32-36); Mean Corpuscular Hemoglobin 31.1 pg (26-34); Mean Corpuscular Volume 94.7 fl (80-100); Platelet Count Result 253 k/mm3 (150-375); Red Blood Count 4.18 M/mm3 (4.2-5.4); White Blood Count 5.5 K/mm3 (4.5-10.0)
[2025-07-05 06:53] LABS: Alanine Aminotransferase 17 U/L (6-35); Albumin Level 3.7 g/dL (3.5-5.1); Alkaline Phosphatase 48 U/L (38-126); Anion Gap 2 mmol/L (4-12); Aspartate Amino Transferase 24 U/L (14-36); Bilirubin,Total 0.7 mg/dL (0.2-1.3); Blood Urea Nitrogen 10 mg/dL (7-17); Calcium 9.3 mg/dL (8.4-10.2); Carbon Dioxide 30 mmol/L (22-30); Chloride 103 mmol/L (98-107); Estimated CRCL calculation 77 ml/min; Estimated Glomerular Filt Rate > 60; Glucose 94 mg/dL (65-110); Potassium 3.8 mmol/L (3.4-5.0); Sodium 135 mmol/L (137-145); Total Protein 6.3 g/dL (6.3-8.2)
[2025-07-05] MEDS: CALCIUM CARBONATE (OSCAL) 500 MG TABLET 1000 MG PO ×2 (09:09→20:53)
[2025-07-05] MEDS: ASCORBIC ACID 500 MG TABLET PO (09:09)
[2025-07-05] MEDS: DULoxetine HCL 60 MG CAPSULE.DR PO ×2 (09:09→20:53)
[2025-07-05] MEDS: MAGNESIUM OXIDE 400 MG TABLET PO ×2 (09:09→20:53)
[2025-07-05] MEDS: VITAMIN B COMPLEX CAPSULE 1 CAP PO (09:09)
[2025-07-05] MEDS: ENOXAPARIN 40 MG/0.4 ML SYRINGE SUB-Q (09:10)
[2025-07-05] MEDS: METOPROLOL TARTRATE 50 MG TAB PO ×2 (09:10→20:53)
--- NOTE | 2025-07-05 12:47 | P.PN_ITS ---
Progress Note: A&P Assessment and Plan (1) Altered mental status: Qualifiers: Altered mental status type: unspecified Qualified Code(s): R41.82 - Altered mental status, unspecified Code(s): R41.82 - Altered mental status, unspecified Status: Acute Assessment and Plan: Patient presented with an episode of acute confusion lasting 1-2 hours, characterized by patient wandering her house looking for her who . In the ED, patient was much improved neurologically, without focal de ficit, fully AAO x3, fully aware her had . A&Ox4 today * Initial workup including head CT and CTA head and neck negative. Labs unremarkable. * Appreciate neurology evaluation and consultation * Awaiting brain MRI * Echocardiogram completed, normal EF, grade 1 diastolic dysfunction, patent foramen ovale visualized. Will obtain Cardiology consultation for further evaluation * EEG ordered, awaiting completion tomorrow * Continue with regular neuro checks (2) Tachyarrhythmia: Code(s): R00.0 - Tachycardia, unspecified Status: Acute Assessment and Plan: Establish with [facility] Cardiology * Has 30 day event monitor in place * Continue to monitor on telemetry * Cardiology consultation as above (3) Chronic back pain: Code(s): M54.9 - Dorsalgia, unspecified; G89.29 - Other chronic pain Status: Acute Assessment and Plan: Chronic back pain due to scoliosis. * On multiple medications, including [place], methocarbamol. * Do not suspect these medications continue to mental status changes given chronicity of use (4) White coat syndrome without diagnosis of hypertension: Code(s): R03.0 - Elevated blood-pressure reading, without diagnosis of hypertension Status: Acute Assessment and Plan: Blood pressure stable this admission * Continue to monitor BP trends Subjective Date/time seen: 07/05/25 12:47 Interval history: Feeling better today. Denies confusion. Denies headache, dizziness, lightheadedness, weakness, numbness, tingling. She does endorse nausea. She is tolerating her diet, though reports poor appetite. She denies vomiting, fever, or chills. Denies shortness of breath, cough, chest pain, palpitations. States she is voiding without difficulty. She denies constipation. Review of Systems Review of Systems: All systems reviewed & are unremarkable except as noted in HPI and below Exam Narrative: General: Awake, alert, comfortable, no acute distress HEENT: Normocephalic, atraumatic, sclerae anicteric Respiratory: Normal respiratory effort, no accessory muscle use Abdomen: Nondistended, soft, nontender Skin: Normal coloration, warm and dry Extremities: No erythema or edema Neurologic: No focal neuro deficits noted Psychiatric: Appropriate mood and affect, judgment and insight intact Objective Data Vital Signs Vital Signs: Vital Signs - 24 hr 07/04/25 19:46 07/04/25 20:00 07/04/25 20:10 Temperature 98.0 F Pulse Rate 98 94 Respiratory Rate 17 Blood Pressure 114/65 Pulse Oximetry 99 Oxygen Delivery Room Air 07/05/25 00:00 07/05/25 00:00 07/05/25 04:00 Temperature 97.1 F L Pulse Rate 75 73 75 Respiratory Rate 17 Blood Pressure 102/73 127/78 Pulse Oximetry 100 96 Oxygen Delivery 07/05/25 04:00 07/05/25 08:00 07/05/25 08:00 Temperature 98.2 F Pulse Rate 74 84 Respiratory Rate 16 Blood Pressure 125/67 Pulse Oximetry 99 Oxygen Delivery Room Air 07/05/25 08:00 07/05/25 09:10 Temperature Pulse Rate 87 74 Respiratory Rate Blood Pressure Pulse Oximetry Oxygen Delivery Intake/Output Intake/Output: Intake & Output 07/02/25 07/03/25 07/04/25 07/05/25 23:59 23:59 23:59 23:59 Intake Total 1240 418 Balance 1240 418 Meds/Results Medications: Active Medications Generic Name Dose Route Start Last Admin Trade Name Freq PRN Reason Stop Dose Admin Acetaminophen 650 mg 07/04/25 15:53 Acetaminophen 325 Mg Tablet PO Q12H PRN PAIN RATED -3 Hydrocodone Bitart/Acetaminophen 1 tab 07/04/25 13:34 07/05/25 09:14 Hydrocodone/Acetaminophen (*Crx) 10-325 Mg Tablet PO 1 tab Q6H PRN Administration Pain Ascorbic Acid 500 mg 07/05/25 09:00 07/05/25 09:09 Ascorbic Acid 500 Mg Tablet PO 500 mg DAILY SARAHI Administration Calcium Carbonate 1,000 mg 07/04/25 21:00 07/05/25 09:09 Calcium Carbonate (Oscal) 500 Mg Tablet PO 1,000 mg Q12HR SARAHI Administration Duloxetine HCl 60 mg 07/04/25 21:00 07/05/25 09:09 Duloxetine Hcl 60 Mg Capsule.Dr PO 60 mg Q12H SARAHI Administration Enoxaparin Sodium 40 mg 07/05/25 09:00 07/05/25 09:10 Enoxaparin 40 Mg/0.4 Ml Syringe SUB-Q 40 mg DAILY SARAHI Administration Famotidine 10 mg 07/04/25 21:00 07/04/25 20:05 Famotidine 10 Mg Tablet PO 10 mg HS SARAHI Administration Lurasidone HCl 80 mg 07/05/25 17:00 Lurasidone Hcl 40 Mg Tablet PO DAILY@1700 SARAHI Magnesium Oxide 400 mg 07/04/25 21:00 07/05/25 09:09 Magnesium Oxide 400 Mg Tablet PO 400 mg Q12HR SARAHI Administration Methocarbamol 1,000 mg 07/04/25 16:24 07/05/25 09:15 Methocarbamol 500 Mg Tablet PO 1,000 mg Q6H PRN Administration Muscle Spasm Metoprolol Tartrate 50 mg 07/04/25 21:00 07/05/25 09:10 Metoprolol Tartrate 50 Mg Tab PO 50 mg Q12HR SARAHI Administration Montelukast Sodium 10 mg 07/04/25 21:00 07/04/25 20:06 Montelukast Sodium 10 Mg Tablet PO 10 mg HS SARAHI Administration Per P&T, 1 each 07/04/25 16:03 Nonformulary XX 07/05/25 16:02 Nutritional PRN PRN Supplements And PROTOCOL Vitamins Will Be Held Until Discharge : Per P&T, 1 each 07/04/25 16:11 Nonformulary XX 07/05/25 16:10 Nutritional PRN PRN Supplements And PROTOCOL Vitamins Will Be Held Until Discharge : Perflutren Lipid Microsphere 0 ml 07/04/25 10:05 Perflutren Lipid Microspheres 1.5 Ml Vial Diluted To 10 Ml Total Volume IV PUSH 07/07/25 10:05 ONCE PRN adequate visualization Protocol Vitamin B Complex 1 cap 07/05/25 09:00 07/05/25 09:09 Vitamin B Complex Capsule PO 1 cap DAILY SARAHI Administration Radiology Results: ITS Impressions Head CT 07/04/25 07:04 IMPRESSION: 1. No acute intracranial findings. Chest X-Ray 07/04/25 07:19 IMPRESSION: 1. No acute cardiopulmonary findings given portable technique. Head/Neck CTA 07/04/25 08:25 IMPRESSION: 1. Mild nonspecific cerebral white matter disease, which likely represents chronic small vessel ischemic disease. 2. No aneurysm or significant intracranial arterial stenosis. 3. 0% stenosis of the proximal internal carotid arteries relative to normal distal artery lumen diameters (NASCET criteria). 4. Anterior fusion procedure in cervical spine with failed fusion at C5-C6. 5. Chronic sinusitis. Labs Labs: Laboratory Results - last 24 hr 07/05/25 05:50 WBC 5.5 RBC 4.18 L Hgb 13.0 Hct 39.6 MCV 94.7 MCH 31.1 MCHC 32.8 RDW 12.2 Plt Count 253 MPV 11.1 H Sodium 135 L Potassium 3.8 Chloride 103 Carbon Dioxide 30 Anion Gap 2 L BUN 10 D Creatinine 0.63 L Estim Creat Clear Calc 77 Estimated GFR > 60 Glucose 94 Calcium 9.3 Total Bilirubin 0.7 AST 24 ALT 17 Alkaline Phosphatase 48 Total Protein 6.3 Albumin 3.7 Quality VTE Prophylaxis VTE prophylaxis: pharmacologic ordered
[2025-07-05] MEDS: ONDANSETRON INJ 4 MG/2 ML VIAL IV PUSH (13:01)
[2025-07-05] MEDS: LURASIDONE HCL 40 MG TABLET 80 MG PO (16:39)
[2025-07-05] MEDS: FAMOTIDINE 10 MG TABLET PO (20:53)
[2025-07-05] MEDS: MONTELUKAST SODIUM 10 MG TABLET PO (20:53)
[2025-07-06] VITALS: BP 106/70; PULSE 58; PULSE 89; RESP 20; TEMP 36.9; O2SAT 100
[2025-07-06 04:00] VITALS: BP 123/71; PULSE 59; PULSE 70; RESP 20; TEMP 37.1; O2SAT 98
[2025-07-06 06:19] LABS: Hematocrit 42.2 % (37.0-47.0); Hemoglobin 14.0 g/dL (12.0-15.0); Mean Corpuscular HGB Conc 33.2 g/dl (32-36); Mean Corpuscular Hemoglobin 31.7 pg (26-34); Mean Corpuscular Volume 95.5 fl (80-100); Platelet Count Result 259 k/mm3 (150-375); Red Blood Count 4.42 M/mm3 (4.2-5.4); White Blood Count 5.1 K/mm3 (4.5-10.0)
[2025-07-06] MEDS: HYDROcodone/acetaminophen (*CRX) 10-325 MG TABLET 1 TAB PO ×2 (06:52→12:39)
[2025-07-06 08:00] VITALS: BP 116/74; PULSE 76; PULSE 83; RESP 18; TEMP 37.1; O2SAT 96
[2025-07-06] MEDS: CALCIUM CARBONATE (OSCAL) 500 MG TABLET 1000 MG PO (08:43)
[2025-07-06] MEDS: ASCORBIC ACID 500 MG TABLET PO (08:43)
[2025-07-06 08:44] VITALS: PULSE 76
[2025-07-06] MEDS: DULoxetine HCL 60 MG CAPSULE.DR PO (08:44)
[2025-07-06] MEDS: METOPROLOL TARTRATE 50 MG TAB PO (08:44)
[2025-07-06] MEDS: ENOXAPARIN 40 MG/0.4 ML SYRINGE SUB-Q (08:44)
[2025-07-06] MEDS: MAGNESIUM OXIDE 400 MG TABLET PO (08:44)
[2025-07-06] MEDS: VITAMIN B COMPLEX CAPSULE 1 CAP PO (08:44)
--- NOTE | 2025-07-06 10:08 | PM.CNCAR ---
Assessment and Plan Assessment and plan (1) PSVT (paroxysmal supraventricular tachycardia): Code(s): I47.10 - Supraventricular tachycardia, unspecified Status: Acute Assessment and Plan: Had short run of SVT lasting about 10 beats. On Metoprolol. She is wearing event monitor from last month. Follows Dr. Upton at [facility]. No further cardiac workup is needed. Will sign off, please call with any questions. (2) Confusion: Code(s): R41.0 - Disorientation, unspecified Status: Acute Assessment and Plan: Being worked up by hospitalist. History of Present Illness History of Present Illness Consult date/time: 07/06/25 10:08 Reason For Visit: confusion,tia Narrative: 65 yr old woman who is a patient of Dr. Upton at [facility] presents to ER with confusion. She has a history PSVT. Reports she was calling out for her and her son was present. She reports fatigue but sleeps well. She can walk 1/2 mile but limited by scoliosis in her back. She had cervical fusion surgery. She has back pain. Denies chest pain, sob, orthopnea, PND, edema. Previously, states she had fast HR and watch showed HR 130 bpm for a whole day, and then she presented to ER. In ER EKG did show SVT which has resolved since. She has episodes of palpitations rarely and resolved by her taking additional Metoprolol or vagal maneuvers. Cardiovascular Procedures Echo/MUGA:: 09/02/20 Echo at [facility]: EF 73%, trace MR/TR. Electrophysiology:: 08/01/20 EKG: Sinus rhythm, IRBBB. 05/04/21 30 day event monitor at [facility]: Sinus rhythm, HR range 50-172 bpm; average 82; 1% PAC, 3 SVT, fastest at 172 bpm and longest 12 seconds; <1% PVC's, one 17 beat wide complex tachycardia likely SVT with aberrancy at 165 bpm. 08/17/20 EKG: :Sinus rhythm, IRBBB. Stress Tests:: 10/03/21 Xray scoliosis: Severe cervical and lumbar spondylosis and scoliosis of cervical, thoracic and lumbar. 05/09/21 Carotid duplex: normal carotids. 05/09/21 CT head: Cerebral atherosclerosis. Review of Systems Review of Systems: All systems reviewed & are unremarkable except as noted in HPI and below Constitutional: Constitutional: Reports as per HPI, Denies chills and Denies fever(s) Cardiovascular: Cardiovascular: Reports as per HPI, Denies chest pain and Denies irregular heart rhythm Respiratory: Respiratory: Reports as per HPI and Denies dyspnea Gastrointestinal: Gastrointestinal: Reports as per HPI and Denies abdominal pain Genitourinary: Genitourinary: Reports as per HPI and Denies dysuria Musculoskeletal: Musculoskeletal: Reports as per HPI, Reports back pain and Reports arthralgias Neurologic: Reports as per HPI, Denies dizziness and Denies syncope [facility] Past Medical History Medical History Colon cancer screening Chronic, continuous use of opioids hydrocodone GERD (gastroesophageal reflux disease) SVT (supraventricular tachycardia) Hypertension 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 Vaginal delivery x2 Missed x1 Endometriosis Arthritis Anxiety Fibromyalgia Scoliosis Surgical History Surgical History History of D&C (~07/21/24) D&C hysteroscopy with resection of polyp S/P cervical spinal fusion (~08/09/22) C3-6 [place] teeth extracted 1982 History of endometrial ablation History of dilation and curettage 1988 History of laparoscopy early , endometriosis Family History Family History Father Cerebrovascular accident Depression Anxiety Family history of blood dyscrasia Mother Family history of chronic obstructive pulmonary disease Hypertension Anxiety Depression Thyroid disorder Grandparent Family history of cardiovascular disease Acute myocardial infarction Carcinoma of colon Family history of malignant neoplasm of breast in first degree relative Breast cancer Social History Social History Smoking packs per day: 1 Smoking cigarettes per day: 20.0 Years smoked: 2 Smoking pack-years: 2.00 Smoking status: Never smoker Tobacco type: cigarettes Second hand tobacco smoke exposure: No Smoking end date: 07/30/82 Alcohol intake: never Substance use: never Substance use type: does not use Other substance usage details: DURING COLLEGE YRS Lack of Transportation: No Lack of Food: Never True Current Housing: I Have Housing Concerned About Future Housing: No Difficulty Paying Gas/Electric Bills: No Difficulty Paying for Meds: No Currently Unemployed: No Education: Master's Degree or Higher Difficulty w/ Childcare or Family Care: No Living arrangements: with family Additional living arrangements comments: Occupation/Education: retired Gender identity (if verbalized by the patient): Female Sexual Orientation (if Verbalized by the Patient): Straight or Heterosexual Spiritual care concerns: No Meds Home Medications and Allergies Home Medications ?Medication ?Instructions ?Recorded ?Confirmed ?Type alpha lipoic acid 550 mg PO .dinner 04/19/20 07/04/25 History magnesium citrate 2 cap PO Q12H 04/19/20 07/04/25 History methocarbamol 500 mg tablet 1,000 mg PO Q4H PRN muscle spasm 04/19/20 07/04/25 History calcium carbonate (Calcium 600) 1,200 mg PO Q12H 04/25/21 07/04/25 History famotidine 10 mg tablet 10 mg PO HS 05/15/22 07/04/25 History duloxetine 60 mg capsule,delayed 60 mg PO Q12H 03/17/24 07/04/25 History release estradiol-norethindrone acet 1 1 tablet PO HS 03/17/24 07/04/25 History mg-0.5 mg tablet acetaminophen 650 mg 650 mg PO Q12H PRN pain 05/15/24 07/04/25 History tablet,extended release (Tylenol 8 Hour) meloxicam 15 mg tablet 15 mg PO HS 05/15/24 07/04/25 History vitamin B complex (Vitamins B 1 cap PO DAILY 07/14/24 07/04/25 History Complex capsule) lurasidone 80 mg tablet 80 mg PO QPM 11/03/24 07/04/25 History ascorbic acid (vitamin C) 500 mg 500 mg PO DAILY 06/14/25 07/04/25 History tablet (Vitamin C) hydrocodone 10 mg-acetaminophen 1 tablet PO Q6H PRN pain 06/14/25 07/04/25 History 325 mg tablet levomefolate 7.5 mg-algal oil 1 cap PO QPM 06/14/25 07/04/25 History 90.314 mg capsule (L-Methylfolate Forte) montelukast 10 mg tablet 10 mg PO HS 06/14/25 07/04/25 History (Singulair) metoprolol tartrate 25 mg tablet 50 mg PO DAILY 07/04/25 07/04/25 History Allergies Allergy/AdvReac Type Severity Reaction Status Date / Time Sulfa (Sulfonamide Allergy Intermediate Unknown Verified 07/04/25 13:03 Antibiotics) capsaicin AdvReac Severe burning Verified 07/04/25 13:03 sensation DECONGESTANT Allergy Intermediate BLADDER Uncoded 04/01/25 06:12 SPSAMS Vital Signs Vital Signs - 24 hr 07/05/25 12:00 07/05/25 12:00 07/05/25 16:00 Temperature 98.1 F Pulse Rate 64 67 67 Respiratory Rate 16 Blood Pressure 119/96 H Pulse Oximetry 99 07/05/25 16:00 07/05/25 20:00 07/05/25 20:00 Temperature 97.9 F 98.2 F Pulse Rate 71 80 66 Respiratory Rate 16 18 Blood Pressure 130/92 H 109/78 Pulse Oximetry 99 98 07/06/25 00:00 07/06/25 00:00 07/06/25 04:00 Temperature 98.4 F Pulse Rate 58 L 89 59 L Respiratory Rate 20 Blood Pressure 106/70 Pulse Oximetry 100 07/06/25 04:00 07/06/25 08:00 07/06/25 08:44 Temperature 98.8 F 98.7 F Pulse Rate 70 76 76 Respiratory Rate 20 18 Blood Pressure 123/71 116/74 Pulse Oximetry 98 96 Exam Const: General: cooperative, healthy appearing and comfortable Resp: Auscultation: clear to auscultation bilaterally, no crackles, no rales, no rhonchi and no wheezes Cardio: Rate: regular rate Rhythm: regular rhythm Heart sounds: no murmurs Peripheral pulses: dorsalis pedis present GI: GI Palp: No abdominal tenderness and Yes Soft to palpation Neuro: General: oriented to person, oriented to place and oriented to time Extrem: Right lower extremity: no edema Left lower extremity: no edema Results Labs and Meds 07/06/25 05:18 07/05/25 05:50 Lab results: CBC 07/06/25 Range/Units 05:18 WBC 5.1 (4.5-10.0) K/mm3 RBC 4.42 (4.2-5.4) M/mm3 Hgb 14.0 (12.0-15.0) g/dL Hct 42.2 (37.0-47.0) % Plt Count 259 (150-375) k/mm3 Intake and Output 07/05/25 07/06/25 07/06/25 23:59 07:59 15:59 Intake Total 0 240 Balance 0 240 Intake: Oral 0 240 Other: # Unmeasured Voids 1 4 Number of Bowel Movements Today 1
[2025-07-06 12:00] VITALS: BP 118/75; PULSE 74; PULSE 85; RESP 16; TEMP 37; O2SAT 98
--- NOTE | 2025-07-06 13:26 | P.DS_ITS ---
DS: Admitting Diagnosis Discharge Date 07/06/25 Admitting Diagnosis altered mental status DS: Discharge Diagnosis Discharge Diagnosis (1) Tachyarrhythmia: Code(s): R00.0 - Tachycardia, unspecified Status: Acute (2) Chronic back pain: Code(s): M54.9 - Dorsalgia, unspecified; G89.29 - Other chronic pain Status: Acute (3) White coat syndrome without diagnosis of hypertension: Code(s): R03.0 - Elevated blood-pressure reading, without diagnosis of hypertension Status: Acute (4) Seizure disorder: Code(s): G40.909 - Epilepsy, unspecified, not intractable, without status epilepticus Status: Acute DS: Summary Hospital Course Hospital Course: Patient is a 65-year-old female past medical history of chronic back pain due to scoliosis on [place], white coat hypertension, tachycardia with Holter monitor in place that was placed by her material handler floorperson, fibromyalgia presents with onset of memory loss last night around 1:00 a.m. or 2 a.m. her son saw her wandering her house looking for her 1 year ago. Patient does not have any recollection of this and does not recall when she went to bed. She has no history of dementia, and has no prior history of episodes similar to this. She was initially AAO times 0 on initial evaluation by EMS however did have significant improvement in the ED. On evaluation by hospitalist, she is fully AAO x3, at her baseline, and is elaborating well without any acute neurological impairments noted. CT head in the ED as well as CT angio both negative for acute pathologies. Urinalysis may suggest UTI however is likely highly contaminated with squamous epithelium. Patient also does not have dysuria or other symptoms. Neurology has been consulted. Labs were reviewed and largely unremarkable. Vitals are stable. Urine toxicology only positive for opiates which as above, patient is on for chronic back pain. CTA of the head and neck shows cerebral white matter disease likely chronic small-vessel ischemic disease. No acute findings. MRI of the brain with no acute infarct or hemorrhage. Echocardiogram performed and shows a patent foraminal ovale a visualized by agitated saline imaging large number of bubbles crossed. Recommended that she follow-up with her material handler floorperson outpatient for this. This could be causing TIAs. Patient's symptoms resolved and at discharge she is A&O x4. Neurology recommending a EEG outpatient. Time Spent with Patient Time attestation: Total time spent providing and/or coordinating discharge services: Exam Narrative: GENERAL: Comfortable, no acute distress HENMT: moist mucous membranes EYES: EOM intact b/l NECK: no lymphadenopathy RESPIRATORY: clear to auscultation, no increased respiratory effort CARDIO: Regular rate and rhythm SKIN/EXTREMITIES: no rashes, no edema, no redness or tenderness NEURO: PROM intact, answers questions appropriately, A&O x4 DS: Data Data Completed and Pending Labs on day of discharge: Labs from last 24 hours 07/06/25 05:18 WBC 5.1 RBC 4.42 Hgb 14.0 Hct 42.2 MCV 95.5 MCH 31.7 MCHC 33.2 RDW 12.2 Plt Count 259 MPV 11.2 H Discharge Plan Discharge Consulting providers: Bin Rothman; Sanya Hall Discharging Clinician: Yun Ya Patient Disposition: Home Activity: as tolerated Diet: regular Discharge Instructions: Discharge disposition: Recommending following up with material handler floorperson due to abnormal echo results. Echo results: 1. Left ventricular systolic function is normal, estimated at 60-65. 2. The left ventricular diastolic function is grade I diastolic dysfunction. 3. Patent foramen ovale visualized by agitated saline imaging. Large number of bubbles crossed. Follow up neurology for outpatient EEG. Call neurology to make appointment. Take medications as prescribed Monitor blood pressures Encouraged to continue with yearly vaccinations Return to the emergency department if he developed sudden shortness of breath, chest pain, nausea, vomiting, upset stomach or intractable diarrhea Return to the emergency department if you develop fever greater than 100.4 Follow-up with the primary care physician within 1-2 weeks Thank you for [facility] for your healthcare needs Patient Instructions: Antibiotic Form Patient Language: Sami Stand Alone Forms: General Discharge Information Follow-up/Referrals: Bin Rothman MD [Physician, Neurology] Discharge Medications: Continued famotidine 10 mg tablet 10 mg PO HS estradiol-norethindrone acet 1-0.5 mg tablet 1 tablet PO HS duloxetine 60 mg capsule,delayed release(DR/EC) 60 mg PO Q12H calcium carbonate [Calcium 600] 600 mg calcium (1,500 mg) tablet 1,200 mg PO Q12H lurasidone 80 mg tablet 80 mg PO QPM Rx Instructions: takes with dinner meloxicam 15 mg tablet 15 mg PO HS hydrocodone-acetaminophen 10-325 mg tablet 1 tablet PO Q6H PRN (Reason: pain) ascorbic acid (vitamin C) [Vitamin C] 500 mg tablet 500 mg PO DAILY L-Methylfolate Forte 7.5-90.314 mg capsule 1 cap PO QPM Rx Instructions: take with dinner montelukast [Singulair] 10 mg tablet 10 mg PO HS methocarbamol 500 mg tablet 1,000 mg PO Q4H PRN (Reason: muscle spasm) alpha lipoic acid 550 mg PO .dinner magnesium citrate 250 MG 2 cap PO Q12H acetaminophen [Tylenol 8 Hour] 650 mg tablet extended release 650 mg PO Q12H PRN (Reason: pain) vitamin B complex [Vitamins B Complex] Capsule 1 cap PO DAILY metoprolol tartrate 25 mg Tablet 50 mg PO DAILY Other Ambulatory Orders: EEG (Routine) Timeframe: 1 Month Location: Determined by Patient Ordered By: Yun Ya Date of admission: 07/04/25 09:21 Primary Care Provider: Hermelinda Ortega Admitting Provider: Malik Handy Oca Attending physician on admission: Malik Handy Oca Condition: Stable
== END 2025-07-06 15:25 | disposition home or self-care (01) ==
LOC: ANHED 07:20 → ANH3MEDSUR 10:07
PROVIDERS: Admitting Provider Student in an Organized Health Care Education/Training Program; Emergency Provider Student in an Organized Health Care Education/Training Program; PCP Family Medicine; Visit Provider Student in an Organized Health Care Education/Training Program
DX: I47.10 Supraventricular tachycardia, unspecified (principal); R41.0 Disorientation, unspecified; G40.909 Epilepsy, unspecified, not intractable, without status epilepticus; M54.9 Dorsalgia, unspecified; G89.29 Other chronic pain; R30.0 Dysuria; M79.7 Fibromyalgia; K21.9 Gastro-esophageal reflux disease without esophagitis; I10 Essential (primary) hypertension; Z20.822 Contact with and (suspected) exposure to COVID-19; Z87.891 Personal history of nicotine dependence
CPT/HCPCS: 36415; 70450; 70496; 70498; 70553; 71045; 80053; 80307; 81001; 82077; 82550; 82803; 83605; 83690; 83735; 84443; 84484; 85025; 85027; 85610; 85730; 87637; 93005; 93306; 96361; 96372; 96374; 96375; 99285; A9270; A9577; G0378; J1650; J2405; J7030; Q9967

== ENCOUNTER 2025-07-13 12:31 | Outpatient (CLI) | payer MEDICARE, SELFPAY ==
--- NOTE | 2025-07-14 11:48 | WPDNEUROLOGY ---
Neurology EEG Report General Information Date of Study: 07/13/25 TEST EEG DIAGNOSIS Altered mental status. CONDITION OF RECORDING Awake drowsy and asleep. EEG NUMBER [id number] CLINICAL HISTORY 60 years old female had an episode of memory loss. Patient reported that the weekend of 07 03 she felt very nauseous. She did not know what to do, so she started looking for her to help her. She had forgotten that her had after asking her son where he was. She also did not know the date. She was admitted to the hospital to check for a stroke. Patient stated that she felt nauseous the entire time until she was given nausea medicine at the hospital. Patient also states that she has trouble getting words out and forgets what she is saying mid sentences, But she thinks that is an aging thing. EEG DESCRIPTION Basic resting occipital frequency consists of low voltage 8 to 9 hertz per 2nd alpha admixed with multiple movement artifacts and muscle artifacts. Bilateral symmetrical sleep activity is noted during sleep with symmetrical sleep spindles as well. Hyperventilation not done but photic stimulation produced a normal drive. Brief episodes of left-sided low voltage theta and delta activity noted during the later part of the tracing. Non paroxysmal. Focal. Lateralizing. IMPRESSION Abnormal record due to the presence of the asymmetrical slow activity over the left hemisphere without any paroxysmal phenomena. Clinical correlation recommended, this particular abnormality could be suggestive of focal structural lesion could be on the basis of neuro degenerative process again clinical correlation recommended.
== END 2025-07-13 12:32 | disposition home or self-care (01) ==
LOC: ANHNEURO 12:32
PROVIDERS: PCP Family Medicine; Visit Provider Internal Medicine Critical Care Medicine
DX: G40.909 Epilepsy, unspecified, not intractable, without status epilepticus (principal); R41.82 Altered mental status, unspecified
CPT/HCPCS: 95816